=== PATIENT | male | born 1995 | race Caucasian/White ===

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

== ENCOUNTER 2017-03-09 12:30 | Inpatient (IN) | payer MEDICAID ==
[2017-03-09] MEDS ORDERED: Sodium Chloride 0.9% 1,000 ML IV ONE ×4 (12:36→16:12)
[2017-03-09] MEDS ORDERED: Sodium Chloride 0.9% 10 ML Syringe FLUSH PRN (12:36)
[2017-03-09] MEDS ORDERED: Ondansetron 4 MG/2 ML SDV IVPUSH ONE (12:39)
[2017-03-09] MEDS ORDERED: Ketorolac 15 MG/ML SDV IVPUSH ONE (12:40)
[2017-03-09] MEDS ORDERED: Insulin Regular, Human 100 Units/ML 3 ML Vial IV STA ×2 (12:52→16:42)
--- NOTE | 2017-03-09 13:13 | EDM.PDOC ---
ED HPI GENERAL MEDICAL PROBLEM - General Chief Complaint: Diabetic Complaint Stated Complaint: [facility] Time Seen by Provider: 03/09/17 12:42 Source of Information: Reports: Patient, EMS History Limitations: Reports: No Limitations - History of Present Illness INITIAL COMMENTS - FREE TEXT/NARRATIVE: 22-year-old male who is a known diabetic walked into the [facility] today reporting that he was in DKA. Patient reports he started feeling ill this morning. He denies any recent illness. He states he has been compliant with his medications. He previously had an insulin pump but is currently on Lantus and novolog. He states he has been taking this as prescribed. He is currently complaining of body aches and nausea. He reports his symptoms feel similar to his previous episodes of DKA. Patient's blood sugar was checked twice by [facility]. Both times was greater than 400. He was given 2 L of normal saline en route and 4 mg of IV Zofran. Patient reports that his nausea improved after the 4 mg of zofran. Onset: Today Generalized Pain Score (Numeric/FACES): 5 Left Leg Pain Score (Numeric/FACES): 2 - Related Data Allergies Allergy/AdvReac Type Severity Reaction Status Date / Time No Known Allergies Allergy Verified 03/09/17 12:40 Home Meds: Home Meds Insulin Aspart [Novolog] 0 unit SQ ASDIRECTED 03/09/17 [History] Insulin Glarg,Human.Rec.Analog [LantUS Solostar] 35 units SUBCUT BID 03/09/17 [ History] Insulin Pump/Infus. Set/Meter [Accu-Chek Combo System] 0 unit SQ ASDIRECTED [History] Past Medical History Cardiovascular History: Reports: Hypertension Gastrointestinal History: Reports: Other (See Below) Other Gastrointestinal History: patient has had liver biopsy Musculoskeletal History: Reports: Fracture Other Musculoskeletal History: "boxer fracture" - fifth knuckle fracture November 2016 Neurological History: Reports: Head Trauma Psychiatric History: Reports: Depression Endocrine/Metabolic History: Reports: Diabetes, Type I Other Endocrine/Metabolic History: Diabetic ketoacidosis. Insulin pump - Infectious Disease History Infectious Disease History: Reports: None - Past Surgical History Cardiovascular Surgical History: Reports: None Social & Family History - Family History Family Medical History: Noncontributory Cardiac: Reports: [place] - Tobacco Use Smoking Status *Q: Former Smoker Years of Tobacco use: 7 Packs/Tins Daily: 0.5 Used Tobacco, but Quit: Yes Month Tobacco Last Used: 2015 Second Hand Smoke Exposure: No - Caffeine Use Caffeine Use: Reports: Soda Other Caffeine Use: 1-2 cups - Recreational Drug Use Recreational Drug Use: No - Living Situation & Occupation Living situation: Reports: Single, with Significant Other Occupation: Unemployed ED ROS GENERAL - Review of Systems Review Of Systems: See Below Constitutional: Reports: Malaise, Weakness, Other (body aches) Endocrine: Reports: High Glucose GI/Abdominal: Reports: Nausea ED EXAM GENERAL NO PERIP PULSE - Physical Exam Exam: See Below Exam Limited By: No Limitations General Appearance: Alert, WD/WN, Moderate Distress, Other (smells of ketones) Throat/Mouth: Normal Voice, No Airway Compromise, Other (dry mucus membranes) Respiratory/Chest: Lungs Clear, Respiratory Distress (tachypnea) Cardiovascular: No Murmur, Tachycardia GI/Abdominal: Normal Bowel Sounds, Soft, Non-Tender Neurological: Slow to Respond Psychiatric: Normal Affect, Normal Mood Skin Exam: Warm, Dry, Pallor Course - Vital Signs Last Recorded V/S: Last Vital Signs Temp 36.4 C 03/10/17 00:00 Pulse 99 03/10/17 00:00 Resp 16 03/10/17 00:00 BP 93/49 L 03/10/17 00:00 Pulse Ox 100 03/10/17 00:00 - Orders/Labs/Meds Orders: Active Orders 24 hr Category Date Time Status Cardiac Monitoring [RC] . DIRECTED Care 03/09/17 12:36 Active Insulin Regular, Human [HumuLIN R] 100 unit Med 03/09/17 13:00 Active Sodium Chloride 0.9% [Normal Saline] 99 ml IV TITRATE Sodium Chloride 0.9% [Saline Flush] Med 03/09/17 12:36 Active 10 ml FLUSH ASDIRECTED PRN Peripheral IV Insertion Adult [OM.PC] Routine Oth 03/09/17 12:35 Ordered Medication Orders Acetaminophen (Tylenol) 650 mg PO Q4H PRN PRN Reason: Pain (moderate 4-6) Last Admin: 03/09/17 20:46 Dose: 650 mg Insulin Human Regular 100 unit (/ Sodium Chloride) 100 mls @ 3 mls/hr IV TITRATE PRINCE; 3 UNITS/HR PRN Reason: Protocol Last Titration: 03/10/17 00:14 Dose: 2.5 units/hr, 2.5 mls/hr Titration: 03/09/17 22:59 Dose: 2 units/hr, 2 mls/hr Titration: 03/09/17 21:59 Dose: 2 units/hr, 2 mls/hr Titration: 03/09/17 21:03 Dose: 2.5 units/hr, 2.5 mls/hr Titration: 03/09/17 20:02 Dose: 2.5 units/hr, 2.5 mls/hr Titration: 03/09/17 19:05 Dose: 2.5 units/hr, 2.5 mls/hr Titration: 03/09/17 18:04 Dose: 2.5 units/hr, 2.5 mls/hr Titration: 03/09/17 16:56 Dose: 5 units/hr, 5 mls/hr Admin: 03/09/17 13:32 Dose: 3 units/hr, 3 mls/hr Dextrose/Sodium Chloride (Dextrose 5%-Normal Saline) 1,000 mls @ 150 mls/hr IV ASDIRECTED PRINCE Last Admin: 03/09/17 20:24 Dose: 150 mls/hr Metoclopramide HCl (Reglan) 10 mg IVPUSH Q6H PRN PRN Reason: Nausea/Vomiting Ondansetron HCl (Zofran) 4 mg IVPUSH Q8H PRN PRN Reason: Nausea/Vomiting Pantoprazole Sodium (Protonix Iv) 40 mg IVPUSH Q12H PRINCE Last Admin: 03/09/17 16:31 Dose: 40 mg Sodium Chloride (Saline Flush) 10 ml FLUSH ASDIRECTED PRN PRN Reason: Keep Vein Open Last Admin: 03/09/17 12:45 Dose: 10 ml Labs: Laboratory Tests 03/09/17 03/09/17 03/09/17 Range/Units 12:41 12:41 12:41 WBC 16.44 H (4.23-9.07) K/mm3 RBC 5.08 (4.63-6.08) M/mm3 Hgb 14.1 (13.7-17.5) gm/L Hct 39.3 L (40.1-51.0) % MCV 77.4 L (79.0-92.2) fl MCH 27.8 (25.7-32.2) pg MCHC 35.9 H (32.2-35.5) g/dl RDW Std Deviation 37.7 (35.1-43.9) fL Plt Count 359 H (163-337) K/mm3 MPV 10.6 (9.4-12.3) fl Neutrophils % (Manual) 79 H (40-60) % Band Neutrophils % 1 (0-10) % Lymphocytes % (Manual) 15 L (20-40) % Atypical Lymphs % 0 % Monocytes % (Manual) 5 (2-10) % Eosinophils % (Manual) 0 L (0.8-7.0) % Basophils % (Manual) 0 L (0.2-1.2) Platelet Estimate Adequate Plt Morphology Comment Normal RBC Morph Comment Normal Puncture Site ABG pH (7.35-7.45) ABG pCO2 (35.0-45.0) mmHg ABG pO2 (80.0-100.0) mmHg ABG HCO3 (22.0-26.0) meq/L ABG O2 Saturation (96.0-97.0) % ABG Base Excess (-2-2.0) Carson Test FiO2 (21.00-100.00) % Sodium 130 L (136-145) mEq/L Potassium 6.1 H (3.5-5.1) mEq/L Chloride 93 L (98-107) mEq/L Carbon Dioxide 7 L* (21-32) mEq/L Anion Gap 36.1 H (5-15) BUN 19 H (7-18) mg/dL Creatinine 1.2 (0.7-1.3) mg/dL Est Cr Clr Drug Dosing 89.06 mL/min Estimated GFR (MDRD) > 60 (>60) mL/min BUN/Creatinine Ratio 15.8 (14-18) Glucose 697 H* (74-106) mg/dL Serum Osmolality 327 H (280-300) mosm/kg Calcium 8.8 (8.5-10.1) mg/dL Total Bilirubin 0.6 (0.2-1.0) mg/dL AST 20 (15-37) U/L ALT 26 (16-63) U/L Alkaline Phosphatase 141 H (46-116) U/L Total Protein 7.7 (6.4-8.2) g/dl Albumin 3.6 (3.4-5.0) g/dl Globulin 4.1 gm/dL Albumin/Globulin Ratio 0.9 L (1-2) Urine Color (Yellow) Urine Appearance (Clear) Urine pH (5.0-8.0) Ur Specific [place] (1.005-1.030) Urine Protein (Negative) Urine Glucose (UA) (Negative) Urine Ketones (Negative) Urine Occult Blood (Negative) Urine Nitrite (Negative) Urine Bilirubin (Negative) Urine Urobilinogen (0.2-1.0) Ur Leukocyte Esterase (Negative) Urine RBC (0-5) /hpf Urine WBC (0-5) /hpf Ur Epithelial Cells (0-5) /hpf Urine Bacteria (FEW) /hpf Urine Mucus (FEW) /hpf Urine Opiates Screen (NEGATIVE) Ur Buprenorphine Scrn (NEGATIVE) Ur Oxycodone Screen (NEGATIVE) Urine Methadone Screen (NEGATIVE) Ur Propoxyphene Screen (NEGATIVE) Ur Barbiturates Screen (NEGATIVE) Ur Tricyclics Screen (NEGATIVE) Ur Phencyclidine Scrn (NEGATIVE) Ur Amphetamine Screen (NEGATIVE) U Methamphetamines Scrn (NEGATIVE) U Benzodiazepines Scrn (NEGATIVE) U Cocaine Metab Screen (NEGATIVE) U Marijuana (THC) Screen (NEGATIVE) Ethyl Alcohol (0.00) gm% Ketones 13.98 (0.0-0.3) mM 03/09/17 03/09/17 03/09/17 Range/Units 12:41 12:54 12:54 WBC (4.23-9.07) K/mm3 RBC (4.63-6.08) M/mm3 Hgb (13.7-17.5) gm/L Hct (40.1-51.0) % MCV (79.0-92.2) fl MCH (25.7-32.2) pg MCHC (32.2-35.5) g/dl RDW Std Deviation (35.1-43.9) fL Plt Count (163-337) K/mm3 MPV (9.4-12.3) fl Neutrophils % (Manual) (40-60) % Band Neutrophils % (0-10) % Lymphocytes % (Manual) (20-40) % Atypical Lymphs % % Monocytes % (Manual) (2-10) % Eosinophils % (Manual) (0.8-7.0) % Basophils % (Manual) (0.2-1.2) Platelet Estimate Plt Morphology Comment RBC Morph Comment Puncture Site ABG pH (7.35-7.45) ABG pCO2 (35.0-45.0) mmHg ABG pO2 (80.0-100.0) mmHg ABG HCO3 (22.0-26.0) meq/L ABG O2 Saturation (96.0-97.0) % ABG Base Excess (-2-2.0) Carson Test FiO2 (21.00-100.00) % Sodium (136-145) mEq/L Potassium (3.5-5.1) mEq/L Chloride (98-107) mEq/L Carbon Dioxide (21-32) mEq/L Anion Gap (5-15) BUN (7-18) mg/dL Creatinine (0.7-1.3) mg/dL Est Cr Clr Drug Dosing mL/min Estimated GFR (MDRD) (>60) mL/min BUN/Creatinine Ratio (14-18) Glucose (74-106) mg/dL Serum Osmolality (280-300) mosm/kg Calcium (8.5-10.1) mg/dL Total Bilirubin (0.2-1.0) mg/dL AST (15-37) U/L ALT (16-63) U/L Alkaline Phosphatase (46-116) U/L Total Protein (6.4-8.2) g/dl Albumin (3.4-5.0) g/dl Globulin gm/dL Albumin/Globulin Ratio (1-2) Urine Color Light yellow (Yellow) Urine Appearance Clear (Clear) Urine pH 5.5 (5.0-8.0) Ur Specific [place] 1.020 (1.005-1.030) Urine Protein Negative (Negative) Urine Glucose (UA) 2+ H (Negative) Urine Ketones 3+ H (Negative) Urine Occult Blood Negative (Negative) Urine Nitrite Negative (Negative) Urine Bilirubin Negative (Negative) Urine Urobilinogen 0.2 (0.2-1.0) Ur Leukocyte Esterase Negative (Negative) Urine RBC 0-5 (0-5) /hpf Urine WBC 0-5 (0-5) /hpf Ur Epithelial Cells Not seen (0-5) /hpf Urine Bacteria Rare (FEW) /hpf Urine Mucus Not seen (FEW) /hpf Urine Opiates Screen Negative (NEGATIVE) Ur Buprenorphine Scrn Negative (NEGATIVE) Ur Oxycodone Screen Negative (NEGATIVE) Urine Methadone Screen Negative (NEGATIVE) Ur Propoxyphene Screen Negative (NEGATIVE) Ur Barbiturates Screen Negative (NEGATIVE) Ur Tricyclics Screen Negative (NEGATIVE) Ur Phencyclidine Scrn Negative (NEGATIVE) Ur Amphetamine Screen Negative (NEGATIVE) U Methamphetamines Scrn Negative (NEGATIVE) U Benzodiazepines Scrn Negative (NEGATIVE) U Cocaine Metab Screen Negative (NEGATIVE) U Marijuana (THC) Screen Negative (NEGATIVE) Ethyl Alcohol 0.00 (0.00) gm% Ketones (0.0-0.3) mM 03/09/17 03/09/17 Range/Units 13:00 14:58 WBC (4.23-9.07) K/mm3 RBC (4.63-6.08) M/mm3 Hgb (13.7-17.5) gm/L Hct (40.1-51.0) % MCV (79.0-92.2) fl MCH (25.7-32.2) pg MCHC (32.2-35.5) g/dl RDW Std Deviation (35.1-43.9) fL Plt Count (163-337) K/mm3 MPV (9.4-12.3) fl Neutrophils % (Manual) (40-60) % Band Neutrophils % (0-10) % Lymphocytes % (Manual) (20-40) % Atypical Lymphs % % Monocytes % (Manual) (2-10) % Eosinophils % (Manual) (0.8-7.0) % Basophils % (Manual) (0.2-1.2) Platelet Estimate Plt Morphology Comment RBC Morph Comment Puncture Site Rt radial ABG pH 7.12 L* (7.35-7.45) ABG pCO2 24.3 L (35.0-45.0) mmHg ABG pO2 114.0 H (80.0-100.0) mmHg ABG HCO3 7.5 L (22.0-26.0) meq/L ABG O2 Saturation 98.1 H (96.0-97.0) % ABG Base Excess -21.2 L (-2-2.0) Carson Test Positive FiO2 0.00 L (21.00-100.00) % Sodium (136-145) mEq/L Potassium (3.5-5.1) mEq/L Chloride (98-107) mEq/L Carbon Dioxide (21-32) mEq/L Anion Gap (5-15) BUN (7-18) mg/dL Creatinine (0.7-1.3) mg/dL Est Cr Clr Drug Dosing mL/min Estimated GFR (MDRD) (>60) mL/min BUN/Creatinine Ratio (14-18) Glucose 598 H* (74-106) mg/dL Serum Osmolality (280-300) mosm/kg Calcium (8.5-10.1) mg/dL Total Bilirubin (0.2-1.0) mg/dL AST (15-37) U/L ALT (16-63) U/L Alkaline Phosphatase (46-116) U/L Total Protein (6.4-8.2) g/dl Albumin (3.4-5.0) g/dl Globulin gm/dL Albumin/Globulin Ratio (1-2) Urine Color (Yellow) Urine Appearance (Clear) Urine pH (5.0-8.0) Ur Specific [place] (1.005-1.030) Urine Protein (Negative) Urine Glucose (UA) (Negative) Urine Ketones (Negative) Urine Occult Blood (Negative) Urine Nitrite (Negative) Urine Bilirubin (Negative) Urine Urobilinogen (0.2-1.0) Ur Leukocyte Esterase (Negative) Urine RBC (0-5) /hpf Urine WBC (0-5) /hpf Ur Epithelial Cells (0-5) /hpf Urine Bacteria (FEW) /hpf Urine Mucus (FEW) /hpf Urine Opiates Screen (NEGATIVE) Ur Buprenorphine Scrn (NEGATIVE) Ur Oxycodone Screen (NEGATIVE) Urine Methadone Screen (NEGATIVE) Ur Propoxyphene Screen (NEGATIVE) Ur Barbiturates Screen (NEGATIVE) Ur Tricyclics Screen (NEGATIVE) Ur Phencyclidine Scrn (NEGATIVE) Ur Amphetamine Screen (NEGATIVE) U Methamphetamines Scrn (NEGATIVE) U Benzodiazepines Scrn (NEGATIVE) U Cocaine Metab Screen (NEGATIVE) U Marijuana (THC) Screen (NEGATIVE) Ethyl Alcohol (0.00) gm% Ketones (0.0-0.3) mM Meds: Medications Generic Name Dose Route Start Last Admin Trade Name Freq PRN Reason Stop Dose Admin Acetaminophen 650 mg 03/09/17 15:48 03/09/17 20:46 Tylenol PO 650 mg Q4H PRN Administration Pain (moderate 4-6) Insulin Human Regular 100 unit 100 mls @ 3 mls/hr 03/09/17 13:00 03/10/17 00: 14 / Sodium Chloride IV 2.5 units/hr TITRATE PRINCE 2.5 mls/hr Protocol Titration 3 UNITS/HR Dextrose/Sodium Chloride 1,000 mls @ 150 mls/hr 03/09/17 20:15 03/09/17 20:24 Dextrose 5%-Normal Saline IV 150 mls/hr ASDIRECTED PRINCE Administration Metoclopramide HCl 10 mg 03/09/17 15:47 Reglan IVPUSH Q6H PRN Nausea/Vomiting Ondansetron HCl 4 mg 03/09/17 15:47 Zofran IVPUSH Q8H PRN Nausea/Vomiting Pantoprazole Sodium 40 mg 03/09/17 16:00 03/09/17 16:31 Protonix Iv IVPUSH 40 mg Q12H PRINCE Administration Sodium Chloride 10 ml 03/09/17 12:36 03/09/17 12:45 Saline Flush FLUSH 10 ml ASDIRECTED PRN Administration Keep Vein Open Discontinued Medications Generic Name Dose Route Start Last Admin Trade Name Freq PRN Reason Stop Dose Admin Sodium Chloride 1,000 mls @ 999 mls/hr 03/09/17 12:36 03/09/17 12:40 Normal Saline IV 03/09/17 13:36 999 mls/hr ONETIME ONE Administration Sodium Chloride 1,000 mls @ 999 mls/hr 03/09/17 13:49 03/09/17 13:53 Normal Saline IV 03/09/17 14:49 999 mls/hr ONETIME ONE Administration Sodium Chloride 1,000 mls @ 999 mls/hr 03/09/17 14:57 03/09/17 15:09 Normal Saline IV 03/09/17 15:57 999 mls/hr ONETIME ONE Administration Sodium Chloride 1,000 mls @ 999 mls/hr 03/09/17 16:12 03/09/17 16:32 Normal Saline IV 03/09/17 17:12 999 mls/hr ONETIME ONE Administration Sodium Chloride 1,000 mls @ 250 mls/hr 03/09/17 17:45 03/09/17 17:57 Normal Saline IV 250 mls/hr ASDIRECTED PRINCE Administration Insulin Human Regular 10 unit 03/09/17 12:52 03/09/17 13:49 Humulin R IV 03/09/17 12:53 10 units NOW STA Administration Protocol Insulin Human Regular 3 unit 03/09/17 16:42 03/09/17 16:58 Humulin R IV 03/09/17 16:43 3 units NOW STA Administration Protocol Ketorolac Tromethamine 15 mg 03/09/17 12:40 03/09/17 12:44 Toradol IVPUSH 03/09/17 12:41 15 mg ONETIME ONE Administration Ondansetron HCl 4 mg 03/09/17 12:39 03/09/17 12:44 Zofran IVPUSH 03/09/17 12:40 4 mg ONETIME ONE Administration - Re-Assessments/Exams Free Text/Narrative Re-Assessment/Exam: 03/09/17 15:25 Labs include the following: WBC is 16.44, hgb is 14.1 and plts are 359 Sodium is 130, potassium is 6.1 and chloride is 93. Anion gap is 36.1. Glucose is 697 pH is 7.12, PCO2 is 24.3 and PHCO3 is 7.5 serum ketones are 13.98 serum osmo is 327 UA has 2+ gluclose and 3+ ketones. alcohol is 0 drug screen is negative. Discussed lab results with the patient. Agrees to stay at the hospital. I discussed the case with Dr. Scott. Agrees to admission. Will admit to ICU. Patient received 2 L NS by EMS and an additional 3L in ER. Given 10 unit insulin bolus and started on a drip a 3 units per hour. Departure - Departure Time of Disposition: 15:45 Disposition: Admitted As Inpatient 68 Condition: Serious Clinical Impression: Hyperkalemia Diabetic ketoacidosis associated with type 1 diabetes mellitus Qualifiers: Diabetes mellitus complication detail: without coma Qualified Code(s): E10.10 - Type 1 diabetes mellitus with ketoacidosis without coma - Discharge Information - My Orders Last 24 Hours: My Active Orders 03/09/17 12:35 Peripheral IV Insertion Adult [OM.PC] Routine 03/09/17 12:36 Cardiac Monitoring [RC] . DIRECTED Sodium Chloride 0.9% [Saline Flush] 10 ml FLUSH ASDIRECTED PRN 03/09/17 13:00 Insulin Regular, Human [HumuLIN R] 100 unit Sodium Chloride 0.9% [Normal Saline] 99 ml IV TITRATE - Assessment/Plan Last 24 Hours: My Active Orders 03/09/17 12:35 Peripheral IV Insertion Adult [OM.PC] Routine 03/09/17 12:36 Cardiac Monitoring [RC] . DIRECTED Sodium Chloride 0.9% [Saline Flush] 10 ml FLUSH ASDIRECTED PRN 03/09/17 13:00 Insulin Regular, Human [HumuLIN R] 100 unit Sodium Chloride 0.9% [Normal Saline] 99 ml IV TITRATE
--- NOTE | 2017-03-09 15:43 | PCM.HP ---
H&P History of Present Illness - General Date of Service: 03/09/17 Admit Problem/Dx: Admission Diagnosis/Problem Admission Diagnosis/Problem Diabetic ketoacidosis Source of Information: Patient, Provider History Limitations: Reports: No Limitations - History of Present Illness Initial Comments - Free Text/Narative: 22 year old type 1 diabetics presents with lethargy, body aches; found to be in DKA. Denies change in habits before day of admission. Denies sick contact; had been restarted on insulin and currently off of his pump. Query current regimen status, yet to be determined. EMS in [place] determine level of blood sugar with subsequent IVF 2 liters given before arrival. A total of 3 liters was given before transfer to the ICU at [facility]. Onset of Symptoms: Reports: Sudden Symptom Onset Date: 03/09/17 Duration of Symptoms: Reports: Hour(s):, Getting Worse Location: Reports: Generalized Quality: Reports: Same as Previous Episode Severity: Moderate Improves with: Reports: Medication Associated Symptoms: Reports: Loss of Appetite, Malaise, Nausea/Vomiting Generalized Pain Score (Numeric/FACES): 5 - Related Data Allergies/Adverse Reactions: Allergies Allergy/AdvReac Type Severity Reaction Status Date / Time No Known Allergies Allergy Verified 03/09/17 12:40 Home Medications: Home Meds Insulin Pump/Infus. Set/Meter [Accu-Chek Combo System] 1 each SUBCUT QID [History] Bacitracin [Bacitracin Oint] 30 gm .ROUTE DAILY #2 tube 12/04/16 [Rx] Past Medical History Cardiovascular History: Reports: Hypertension Gastrointestinal History: Reports: Other (See Below) Other Gastrointestinal History: patient has had liver biopsy Musculoskeletal History: Reports: Fracture Other Musculoskeletal History: "boxer fracture" - fifth knuckle fracture November 2016 Neurological History: Reports: Head Trauma Psychiatric History: Reports: Depression Endocrine/Metabolic History: Reports: Diabetes, Type I Other Endocrine/Metabolic History: Diabetic ketoacidosis. Insulin pump - Infectious Disease History Infectious Disease History: Reports: None - Past Surgical History Cardiovascular Surgical History: Reports: None Social & Family History - Family History Family Medical History: Noncontributory Cardiac: Reports: [place] - Tobacco Use Smoking Status *Q: Former Smoker Years of Tobacco use: 5 Packs/Tins Daily: 0.5 Used Tobacco, but Quit: Yes Month Tobacco Last Used: 2015 Second Hand Smoke Exposure: No - Caffeine Use Caffeine Use: Reports: None Other Caffeine Use: pt states that he drinks coffee daily - Recreational Drug Use Recreational Drug Use: No Recreational Drug Type: Reports: Marijuana/Hashish Recreational Drug Use Frequency: Not Used In Over 6 Months - Living Situation & Occupation Living situation: Reports: Single, with Significant Other Occupation: Unemployed H&P Review of Systems - Review of Systems: Review Of Systems: See Below General: Reports: Malaise, Weakness, Decreased Appetite HEENT: Reports: No Symptoms Pulmonary: Reports: No Symptoms Cardiovascular: Reports: No Symptoms Gastrointestinal: Reports: No Symptoms Genitourinary: Reports: No Symptoms Musculoskeletal: Reports: No Symptoms Skin: Reports: No Symptoms Psychiatric: Reports: No Symptoms Neurological: Reports: Dizziness Hematologic/Lymphatic: Reports: No Symptoms Immunologic: Reports: No Symptoms Exam - Exam Exam: See Below - Vital Signs Vital Signs: Last Vital Signs Temp 36.8 C 03/09/17 12:36 Pulse 114 H 03/09/17 15:11 Resp 24 H 03/09/17 15:11 BP 117/68 03/09/17 15:11 Pulse Ox 100 03/09/17 15:11 Weight: 4.374 kg - Exam Quality Assessment: DVT Prophylaxis General: Lethargic HEENT: Conjunctiva Clear, EOMI, Nares Patent, Normal Nasal Septum, Pupils Equal , Pupils Reactive Neck: Supple, Trachea Midline Lungs: Normal Respiratory Effort Cardiovascular: Regular Rate, Tachycardia Abdomen: Normal Bowel Sounds, Soft (Male) Exam: Deferred Rectal (Males) Exam: Deferred Back Exam: Normal Inspection Extremities: Other (poor turgor) Skin: Moist Neurological: Cranial Nerves Intact Neuro Extensive - Mental Status: Alert, Oriented x3, Normal Mood/Affect, Normal Cognition, Memory Intact Neuro Extensive - Motor, Sensory, Reflexes: CN II-XII Intact Psychiatric: Alert, Normal Affect, Normal Mood - Patient Data Result Diagrams: 03/09/17 12:41 03/09/17 12:41 *Q Meaningful Use (ADM) - VTE *Q VTE Criteria *Q: - Stroke *Q Stroke Criteria *Q: - AMI *Q AMI Criteria *Q: - Problem List (1) Diabetic ketoacidosis associated with type 1 diabetes mellitus SNOMED Code(s): 233347479, [id number] ICD Code: E10.10 - TYPE 1 DIABETES MELLITUS WITH KETOACIDOSIS WITHOUT COMA Status: Acute Priority: High Current Visit: No Qualifiers: Diabetes mellitus complication detail: without coma Qualified Code(s): E10.10 - Type 1 diabetes mellitus with ketoacidosis without coma Problem List Initiated/Reviewed/Updated: Yes Orders Last 24hrs: Medication Orders Insulin Human Regular 100 unit (/ Sodium Chloride) 100 mls @ 3 mls/hr IV TITRATE PRINCE; 3 UNITS/HR PRN Reason: Protocol Last Admin: 03/09/17 13:32 Dose: 3 units/hr, 3 mls/hr Sodium Chloride (Normal Saline) 1,000 mls @ 999 mls/hr IV ONETIME ONE Stop: 03/09/17 15:57 Last Admin: 03/09/17 15:09 Dose: 999 mls/hr Sodium Chloride (Saline Flush) 10 ml FLUSH ASDIRECTED PRN PRN Reason: Keep Vein Open Last Admin: 03/09/17 12:45 Dose: 10 ml Assessment/Plan Comment:: Impression: DKA Pseudo hyponatremia Hyperkalemia Dehydration Negative UDA/GLENN 0.0 Plan: Admit to ICU DKA protocol Anti-emetic Pain mgt GI prophylaxis DVT prophylaxis Daily Labs PCP follow up in 1 week after DC LOS expected<96 hours
[2017-03-09] MEDS ORDERED: Metoclopramide 10 MG/2 ML SDV IVPUSH PRN (15:47)
[2017-03-09] MEDS ORDERED: Ondansetron 4 MG/2 ML SDV IVPUSH PRN (15:47)
[2017-03-09] MEDS: Pantoprazole 40 MG Vial IVPUSH SCH (16:31)
[2017-03-09] MEDS ORDERED: Sodium Chloride 0.9% 1,000 ML IV SCH (17:45)
[2017-03-09] MEDS: Dextrose 5%-0.9% NaCl 1,000 ML IV SCH (20:24)
[2017-03-09] MEDS: Acetaminophen 325 MG Tab PO PRN (20:46)
[2017-03-10] MEDS: Pantoprazole 40 MG Vial IVPUSH SCH ×2 (03:12→16:12)
--- NOTE | 2017-03-10 08:58 | PCM.PN ---
- General Info Date of Service: 03/10/17 Functional Status: Reports: tolerating diet, ambulating - Review of Systems General: Reports: Weakness HEENT: Reports: no symptoms Pulmonary: Reports: no symptoms Cardiovascular: Reports: No Symptoms Gastrointestinal: Reports: No symptoms Genitourinary: Reports: no symptoms Musculoskeletal: Reports: no symptoms Skin: Reports: no symptoms Neurological: Reports: No Symptoms Psychiatric: Reports: no symptoms - Patient Data Vitals - most recent: Last Vital Signs Temp 36.8 C 03/10/17 08:00 Pulse 105 H 03/10/17 08:00 Resp 03/10/17 08:00 BP 118/71 03/10/17 08:00 Pulse Ox 100 03/10/17 08:00 Weight - most recent: 72.5 kg I&O - last 24 hours: Intake & Output 03/09/17 03/10/17 03/10/17 22:59 06:59 14:59 Intake Total 3491 Output Total 3000 900 Balance -3000 2591 Lab Results last 24 hrs: Laboratory Results - last 24 hr 03/09/17 03/09/17 03/09/17 Range/Units 18:01 18:37 19:00 WBC (4.23-9.07) K/mm3 RBC (4.63-6.08) M/mm3 Hgb (13.7-17.5) gm/L Hct (40.1-51.0) % MCV (79.0-92.2) fl MCH (25.7-32.2) pg MCHC (32.2-35.5) g/dl RDW Std Deviation (35.1-43.9) fL Plt Count (163-337) K/mm3 MPV (9.4-12.3) fl Neut % (Auto) (34.0-67.9) % Lymph % (Auto) (21.8-53.1) % [place] % (Auto) (5.3-12.2) % Eos % (Auto) (0.8-7.0) Baso % (Auto) (0.1-1.2) % Neut # (Auto) (1.78-5.38) K/mm3 Lymph # (Auto) (1.32-3.57) K/mm3 [place] # (Auto) (0.30-0.82) K/mm3 Eos # (Auto) (0.04-0.54) K/mm3 Baso # (Auto) (0.01-0.08) K/mm3 Manual Slide Review Sodium 138 (136-145) mEq/L Potassium 4.4 (3.5-5.1) mEq/L Chloride 106 (98-107) mEq/L Carbon Dioxide 11 L (21-32) mEq/L Anion Gap 25.4 H (5-15) BUN 15 (7-18) mg/dL Creatinine 1.0 (0.7-1.3) mg/dL Est Cr Clr Drug Dosing 106.33 mL/min Estimated GFR (MDRD) > 60 (>60) mL/min BUN/Creatinine Ratio 15.0 (14-18) Glucose 287 H (74-106) mg/dL POC Glucose 286 H 265 H (70-105) mg/dL Calcium 7.5 L (8.5-10.1) mg/dL Magnesium (1.8-2.4) mg/dl 03/09/17 03/09/17 03/09/17 Range/Units 20:02 21:03 21:59 WBC (4.23-9.07) K/mm3 RBC (4.63-6.08) M/mm3 Hgb (13.7-17.5) gm/L Hct (40.1-51.0) % MCV (79.0-92.2) fl MCH (25.7-32.2) pg MCHC (32.2-35.5) g/dl RDW Std Deviation (35.1-43.9) fL Plt Count (163-337) K/mm3 MPV (9.4-12.3) fl Neut % (Auto) (34.0-67.9) % Lymph % (Auto) (21.8-53.1) % [place] % (Auto) (5.3-12.2) % Eos % (Auto) (0.8-7.0) Baso % (Auto) (0.1-1.2) % Neut # (Auto) (1.78-5.38) K/mm3 Lymph # (Auto) (1.32-3.57) K/mm3 [place] # (Auto) (0.30-0.82) K/mm3 Eos # (Auto) (0.04-0.54) K/mm3 Baso # (Auto) (0.01-0.08) K/mm3 Manual Slide Review Sodium (136-145) mEq/L Potassium (3.5-5.1) mEq/L Chloride (98-107) mEq/L Carbon Dioxide (21-32) mEq/L Anion Gap (5-15) BUN (7-18) mg/dL Creatinine (0.7-1.3) mg/dL Est Cr Clr Drug Dosing mL/min Estimated GFR (MDRD) (>60) mL/min BUN/Creatinine Ratio (14-18) Glucose (74-106) mg/dL POC Glucose 225 H 211 H 201 H (70-105) mg/dL Calcium (8.5-10.1) mg/dL Magnesium (1.8-2.4) mg/dl 03/09/17 03/09/17 03/10/17 Range/Units 22:34 22:58 00:12 WBC (4.23-9.07) K/mm3 RBC (4.63-6.08) M/mm3 Hgb (13.7-17.5) gm/L Hct (40.1-51.0) % MCV (79.0-92.2) fl MCH (25.7-32.2) pg MCHC (32.2-35.5) g/dl RDW Std Deviation (35.1-43.9) fL Plt Count (163-337) K/mm3 MPV (9.4-12.3) fl Neut % (Auto) (34.0-67.9) % Lymph % (Auto) (21.8-53.1) % [place] % (Auto) (5.3-12.2) % Eos % (Auto) (0.8-7.0) Baso % (Auto) (0.1-1.2) % Neut # (Auto) (1.78-5.38) K/mm3 Lymph # (Auto) (1.32-3.57) K/mm3 [place] # (Auto) (0.30-0.82) K/mm3 Eos # (Auto) (0.04-0.54) K/mm3 Baso # (Auto) (0.01-0.08) K/mm3 Manual Slide Review Sodium 137 (136-145) mEq/L Potassium 4.0 (3.5-5.1) mEq/L Chloride 107 (98-107) mEq/L Carbon Dioxide 14 L (21-32) mEq/L Anion Gap 20.0 H (5-15) BUN 12 (7-18) mg/dL Creatinine 1.0 (0.7-1.3) mg/dL Est Cr Clr Drug Dosing 106.33 mL/min Estimated GFR (MDRD) > 60 (>60) mL/min BUN/Creatinine Ratio 12.0 L (14-18) Glucose 211 H (74-106) mg/dL POC Glucose 192 H 221 H (70-105) mg/dL Calcium 7.3 L (8.5-10.1) mg/dL Magnesium (1.8-2.4) mg/dl 03/10/17 03/10/17 03/10/17 Range/Units 01:11 02:10 02:11 WBC (4.23-9.07) K/mm3 RBC (4.63-6.08) M/mm3 Hgb (13.7-17.5) gm/L Hct (40.1-51.0) % MCV (79.0-92.2) fl MCH (25.7-32.2) pg MCHC (32.2-35.5) g/dl RDW Std Deviation (35.1-43.9) fL Plt Count (163-337) K/mm3 MPV (9.4-12.3) fl Neut % (Auto) (34.0-67.9) % Lymph % (Auto) (21.8-53.1) % [place] % (Auto) (5.3-12.2) % Eos % (Auto) (0.8-7.0) Baso % (Auto) (0.1-1.2) % Neut # (Auto) (1.78-5.38) K/mm3 Lymph # (Auto) (1.32-3.57) K/mm3 [place] # (Auto) (0.30-0.82) K/mm3 Eos # (Auto) (0.04-0.54) K/mm3 Baso # (Auto) (0.01-0.08) K/mm3 Manual Slide Review Sodium 137 (136-145) mEq/L Potassium 3.9 (3.5-5.1) mEq/L Chloride 107 (98-107) mEq/L Carbon Dioxide 16 L (21-32) mEq/L Anion Gap 17.9 H (5-15) BUN 11 (7-18) mg/dL Creatinine 1.0 (0.7-1.3) mg/dL Est Cr Clr Drug Dosing 106.33 mL/min Estimated GFR (MDRD) > 60 (>60) mL/min BUN/Creatinine Ratio 11.0 L (14-18) Glucose 251 H (74-106) mg/dL POC Glucose 206 H 224 H (70-105) mg/dL Calcium 7.4 L (8.5-10.1) mg/dL Magnesium (1.8-2.4) mg/dl 03/10/17 03/10/17 03/10/17 Range/Units 03:07 04:13 05:18 WBC (4.23-9.07) K/mm3 RBC (4.63-6.08) M/mm3 Hgb (13.7-17.5) gm/L Hct (40.1-51.0) % MCV (79.0-92.2) fl MCH (25.7-32.2) pg MCHC (32.2-35.5) g/dl RDW Std Deviation (35.1-43.9) fL Plt Count (163-337) K/mm3 MPV (9.4-12.3) fl Neut % (Auto) (34.0-67.9) % Lymph % (Auto) (21.8-53.1) % [place] % (Auto) (5.3-12.2) % Eos % (Auto) (0.8-7.0) Baso % (Auto) (0.1-1.2) % Neut # (Auto) (1.78-5.38) K/mm3 Lymph # (Auto) (1.32-3.57) K/mm3 [place] # (Auto) (0.30-0.82) K/mm3 Eos # (Auto) (0.04-0.54) K/mm3 Baso # (Auto) (0.01-0.08) K/mm3 Manual Slide Review Sodium (136-145) mEq/L Potassium (3.5-5.1) mEq/L Chloride (98-107) mEq/L Carbon Dioxide (21-32) mEq/L Anion Gap (5-15) BUN (7-18) mg/dL Creatinine (0.7-1.3) mg/dL Est Cr Clr Drug Dosing mL/min Estimated GFR (MDRD) (>60) mL/min BUN/Creatinine Ratio (14-18) Glucose (74-106) mg/dL POC Glucose 239 H 219 H 212 H (70-105) mg/dL Calcium (8.5-10.1) mg/dL Magnesium (1.8-2.4) mg/dl 03/10/17 03/10/17 03/10/17 Range/Units 05:40 05:40 06:52 WBC 10.71 H (4.23-9.07) K/mm3 RBC 4.67 (4.63-6.08) M/mm3 Hgb 13.1 L (13.7-17.5) gm/L Hct 35.9 L (40.1-51.0) % MCV 76.9 L (79.0-92.2) fl MCH 28.1 (25.7-32.2) pg MCHC 36.5 H (32.2-35.5) g/dl RDW Std Deviation 38.0 (35.1-43.9) fL Plt Count 308 (163-337) K/mm3 MPV 9.2 L (9.4-12.3) fl Neut % (Auto) 64.1 (34.0-67.9) % Lymph % (Auto) 27.4 (21.8-53.1) % [place] % (Auto) 6.8 (5.3-12.2) % Eos % (Auto) 0.7 L (0.8-7.0) Baso % (Auto) 0.3 (0.1-1.2) % Neut # (Auto) 6.87 H (1.78-5.38) K/mm3 Lymph # (Auto) 2.93 (1.32-3.57) K/mm3 [place] # (Auto) 0.73 (0.30-0.82) K/mm3 Eos # (Auto) 0.08 (0.04-0.54) K/mm3 Baso # (Auto) 0.03 (0.01-0.08) K/mm3 Manual Slide Review Normal smear Sodium 139 (136-145) mEq/L Potassium 3.4 L (3.5-5.1) mEq/L Chloride 108 H (98-107) mEq/L Carbon Dioxide 19 L (21-32) mEq/L Anion Gap 15.4 H (5-15) BUN 11 (7-18) mg/dL Creatinine 0.9 (0.7-1.3) mg/dL Est Cr Clr Drug Dosing 118.15 mL/min Estimated GFR (MDRD) > 60 (>60) mL/min BUN/Creatinine Ratio 12.2 L (14-18) Glucose 221 H (74-106) mg/dL POC Glucose 214 H (70-105) mg/dL Calcium 7.4 L (8.5-10.1) mg/dL Magnesium 1.4 L (1.8-2.4) mg/dl 03/10/17 Range/Units 08:02 WBC (4.23-9.07) K/mm3 RBC (4.63-6.08) M/mm3 Hgb (13.7-17.5) gm/L Hct (40.1-51.0) % MCV (79.0-92.2) fl MCH (25.7-32.2) pg MCHC (32.2-35.5) g/dl RDW Std Deviation (35.1-43.9) fL Plt Count (163-337) K/mm3 MPV (9.4-12.3) fl Neut % (Auto) (34.0-67.9) % Lymph % (Auto) (21.8-53.1) % [place] % (Auto) (5.3-12.2) % Eos % (Auto) (0.8-7.0) Baso % (Auto) (0.1-1.2) % Neut # (Auto) (1.78-5.38) K/mm3 Lymph # (Auto) (1.32-3.57) K/mm3 [place] # (Auto) (0.30-0.82) K/mm3 Eos # (Auto) (0.04-0.54) K/mm3 Baso # (Auto) (0.01-0.08) K/mm3 Manual Slide Review Sodium (136-145) mEq/L Potassium (3.5-5.1) mEq/L Chloride (98-107) mEq/L Carbon Dioxide (21-32) mEq/L Anion Gap (5-15) BUN (7-18) mg/dL Creatinine (0.7-1.3) mg/dL Est Cr Clr Drug Dosing mL/min Estimated GFR (MDRD) (>60) mL/min BUN/Creatinine Ratio (14-18) Glucose (74-106) mg/dL POC Glucose 213 H (70-105) mg/dL Calcium (8.5-10.1) mg/dL Magnesium (1.8-2.4) mg/dl Med Orders - Current: Current Medications Acetaminophen (Tylenol) 650 mg PO Q4H PRN PRN Reason: Pain (moderate 4-6) Last Admin: 03/09/17 20:46 Dose: 650 mg Insulin Human Regular 100 unit (/ Sodium Chloride) 100 mls @ 3 mls/hr IV TITRATE PRINCE; 3 UNITS/HR PRN Reason: Protocol Last Titration: 03/10/17 08:00 Dose: 2.5 units/hr, 2.5 mls/hr Dextrose/Sodium Chloride (Dextrose 5%-Normal Saline) 1,000 mls @ 150 mls/hr IV ASDIRECTED PRINCE Last Admin: 03/09/17 20:24 Dose: 150 mls/hr Metoclopramide HCl (Reglan) 10 mg IVPUSH Q6H PRN PRN Reason: Nausea/Vomiting Ondansetron HCl (Zofran) 4 mg IVPUSH Q8H PRN PRN Reason: Nausea/Vomiting Pantoprazole Sodium (Protonix Iv) 40 mg IVPUSH Q12H PRINCE Last Admin: 03/10/17 03:12 Dose: 40 mg Sodium Chloride (Saline Flush) 10 ml FLUSH ASDIRECTED PRN PRN Reason: Keep Vein Open Last Admin: 03/09/17 12:45 Dose: 10 ml Discontinued Medications Sodium Chloride (Normal Saline) 1,000 mls @ 999 mls/hr IV ONETIME ONE Stop: 03/09/17 13:36 Last Admin: 03/09/17 12:40 Dose: 999 mls/hr Sodium Chloride (Normal Saline) 1,000 mls @ 999 mls/hr IV ONETIME ONE Stop: 03/09/17 14:49 Last Admin: 03/09/17 13:53 Dose: 999 mls/hr Sodium Chloride (Normal Saline) 1,000 mls @ 999 mls/hr IV ONETIME ONE Stop: 03/09/17 15:57 Last Admin: 03/09/17 15:09 Dose: 999 mls/hr Sodium Chloride (Normal Saline) 1,000 mls @ 999 mls/hr IV ONETIME ONE Stop: 03/09/17 17:12 Last Admin: 03/09/17 16:32 Dose: 999 mls/hr Sodium Chloride (Normal Saline) 1,000 mls @ 250 mls/hr IV ASDIRECTED PRINCE Last Admin: 03/09/17 17:57 Dose: 250 mls/hr Insulin Human Regular (Humulin R) 10 unit IV NOW STA PRN Reason: Protocol Stop: 03/09/17 12:53 Last Admin: 03/09/17 13:49 Dose: 10 units Insulin Human Regular (Humulin R) 3 unit IV NOW STA PRN Reason: Protocol Stop: 03/09/17 16:43 Last Admin: 03/09/17 16:58 Dose: 3 units Ketorolac Tromethamine (Toradol) 15 mg IVPUSH ONETIME ONE Stop: 03/09/17 12:41 Last Admin: 03/09/17 12:44 Dose: 15 mg Ondansetron HCl (Zofran) 4 mg IVPUSH ONETIME ONE Stop: 03/09/17 12:40 Last Admin: 03/09/17 12:44 Dose: 4 mg - Exam Quality Assessment: DVT prophylaxis General: alert, oriented HEENT: Pupils equal, Pupils reactive, EOMI Neck: supple, trachea midline Lungs: Normal respiratory effort Cardiovascular: Regular Rate, Regular Rhythm Abdomen: bowel sounds present, soft, no tenderness, no distension (Male) Exam: Deferred Back Exam: Normal Inspection Extremities: normal pulses Skin: warm Neurological: no new focal deficit Psy/Mental Status: alert, normal affect, normal mood - Problem List & Annotations (1) Diabetic ketoacidosis associated with type 1 diabetes mellitus SNOMED Code(s): 994364523, 520376175 Code(s): E10.10 - TYPE 1 DIABETES MELLITUS WITH KETOACIDOSIS WITHOUT COMA Status: Acute Priority: High Current Visit: Yes Qualifiers: Diabetes mellitus complication detail: without coma Qualified Code(s): E10.10 - Type 1 diabetes mellitus with ketoacidosis without coma - Problem List Review Problem List Initiated/Reviewed/Updated: Yes - My Orders Last 24 Hours: My Active Orders 03/09/17 15:45 Antiembolic Devices [RC] PER UNIT ROUTINE Consult to Braddisher [CONS] Routine KT Hose [Antiembolic Hose] [OM.PC] Routine 03/09/17 15:47 Metoclopramide [Reglan] 10 mg IVPUSH Q6H PRN Ondansetron [Zofran] 4 mg IVPUSH Q8H PRN 03/09/17 15:48 Acetaminophen [Tylenol] 650 mg PO Q4H PRN 03/09/17 15:49 Activity as Tolerated [RC] .Routine Vital Signs [RC] Q4HR 03/09/17 16:00 Pantoprazole [ProTONIX IV] 40 mg IVPUSH Q12H 03/09/17 17:05 Code Status [Resuscitation Status] Routine 03/09/17 17:09 Consult to Knitting Teacher [Consult to Diabetic Nurse Specialist] [CONS] Routine 03/09/17 17:59 POC Glucose [Blood Glucose Check, Bedside] [RC] Q1HR 03/09/17 19:00 POC Glucose [Blood Glucose Check, Bedside] [RC] ONETIME 03/09/17 20:15 Dextrose 5%-0.9% NaCl [Dextrose 5%-Normal Saline] 1,000 ml IV ASDIRECTED 03/09/17 Dinner NPO [Nothing Per Oral Diet] [DIET] 03/10/17 08:00 BASIC METABOLIC PANEL,BMP [CHEM] Q4H 03/10/17 12:00 BASIC METABOLIC PANEL,BMP [CHEM] Q4H 03/11/17 05:00 BASIC METABOLIC PANEL,BMP [CHEM] DAILY CBC WITH AUTO DIFF [HEME] DAILY MAGNESIUM [CHEM] DAILY - Plan Plan:: Impression: DKA Pseudo hyponatremia Hyperkalemia Dehydration Negative UDA/GLENN 0.0 Plan: ICU DKA protocol--advance diet Adjust insulin Anti-emetic Pain mgt GI prophylaxis DVT prophylaxis Daily Labs PCP follow up in 1 week after DC LOS expected<96 hours
[2017-03-10] MEDS: Dextrose 5%-0.9% NaCl 1,000 ML IV SCH (09:49)
[2017-03-10] MEDS: Insulin Aspart 100 Units/ML 3 ML Pen SUBCUT SCH ×3 (12:29→21:13)
[2017-03-10] MEDS ORDERED: Magnesium Sulfate/Water 2 GM in Premix Bag 1 BAG IV ONE (13:17)
[2017-03-10] MEDS ORDERED: Insulin Aspart 100 Units/ML 3 ML Pen SUBCUT STA (13:18)
[2017-03-10] MEDS ORDERED: Sodium Chloride 0.9% 500 ML IV ONE (14:22)
[2017-03-10] MEDS ORDERED: Sodium Chloride 0.9% 1,000 ML IV SCH (14:30)
[2017-03-10] MEDS ORDERED: Insulin Detemir 100 Units/ML 3 ML Pen SUBCUT ONE (22:00)
[2017-03-11] MEDS: Pantoprazole 40 MG Vial IVPUSH SCH ×2 (06:52→15:44)
[2017-03-11] MEDS: Insulin Aspart 100 Units/ML 3 ML Pen SUBCUT SCH ×4 (06:53→20:35)
[2017-03-11] MEDS ORDERED: Aspirin 325 MG Tab.EC PO SCH (09:15)
[2017-03-11] MEDS ORDERED: Magnesium Sulfate/Water 2 GM in Premix Bag 1 BAG IV ONE ×2 (09:15→15:00)
[2017-03-11] MEDS: Cephalexin 250 MG Cap PO SCH ×2 (11:28→20:35)
[2017-03-11] MEDS: Acetaminophen 325 MG Tab PO PRN ×2 (11:28→17:05)
--- NOTE | 2017-03-11 13:04 | PCM.PN ---
- General Info Date of Service: 03/11/17 Functional Status: Reports: tolerating diet, ambulating, urinating - Review of Systems General: Reports: No Symptoms HEENT: Reports: no symptoms Pulmonary: Reports: no symptoms Cardiovascular: Reports: No Symptoms Gastrointestinal: Reports: No symptoms Genitourinary: Reports: no symptoms Musculoskeletal: Reports: no symptoms Skin: Reports: no symptoms Neurological: Reports: No Symptoms Psychiatric: Reports: no symptoms - Patient Data Vitals - most recent: Last Vital Signs Temp 36.6 C 03/11/17 08:00 Pulse 109 H 03/11/17 08:00 Resp 18 03/11/17 08:00 BP 134/114 H 03/11/17 08:00 Pulse Ox 99 03/11/17 08:00 Weight - most recent: 70.9 kg I&O - last 24 hours: Intake & Output 03/10/17 03/11/17 03/11/17 22:59 06:59 14:59 Intake Total 800 625 Output Total 1400 Balance 800 -775 Lab Results last 24 hrs: Laboratory Results - last 24 hr 03/10/17 03/10/17 03/10/17 Range/Units 13:08 13:52 14:12 WBC (4.23-9.07) K/mm3 RBC (4.63-6.08) M/mm3 Hgb (13.7-17.5) gm/L Hct (40.1-51.0) % MCV (79.0-92.2) fl MCH (25.7-32.2) pg MCHC (32.2-35.5) g/dl RDW Std Deviation (35.1-43.9) fL Plt Count (163-337) K/mm3 MPV (9.4-12.3) fl Neut % (Auto) (34.0-67.9) % Lymph % (Auto) (21.8-53.1) % [place] % (Auto) (5.3-12.2) % Eos % (Auto) (0.8-7.0) Baso % (Auto) (0.1-1.2) % Neut # (Auto) (1.78-5.38) K/mm3 Lymph # (Auto) (1.32-3.57) K/mm3 [place] # (Auto) (0.30-0.82) K/mm3 Eos # (Auto) (0.04-0.54) K/mm3 Baso # (Auto) (0.01-0.08) K/mm3 Sodium 135 L (136-145) mEq/L Potassium 3.7 (3.5-5.1) mEq/L Chloride 104 (98-107) mEq/L Carbon Dioxide 14 L (21-32) mEq/L Anion Gap 20.7 H (5-15) BUN 8 (7-18) mg/dL Creatinine 1.0 (0.7-1.3) mg/dL Est Cr Clr Drug Dosing 106.33 mL/min Estimated GFR (MDRD) > 60 (>60) mL/min BUN/Creatinine Ratio 8.0 L (14-18) Glucose 401 H (74-106) mg/dL POC Glucose 284 H 386 H (70-105) mg/dL Calcium 7.5 L (8.5-10.1) mg/dL Magnesium (1.8-2.4) mg/dl 03/10/17 03/10/17 03/10/17 Range/Units 16:11 18:06 19:09 WBC (4.23-9.07) K/mm3 RBC (4.63-6.08) M/mm3 Hgb (13.7-17.5) gm/L Hct (40.1-51.0) % MCV (79.0-92.2) fl MCH (25.7-32.2) pg MCHC (32.2-35.5) g/dl RDW Std Deviation (35.1-43.9) fL Plt Count (163-337) K/mm3 MPV (9.4-12.3) fl Neut % (Auto) (34.0-67.9) % Lymph % (Auto) (21.8-53.1) % [place] % (Auto) (5.3-12.2) % Eos % (Auto) (0.8-7.0) Baso % (Auto) (0.1-1.2) % Neut # (Auto) (1.78-5.38) K/mm3 Lymph # (Auto) (1.32-3.57) K/mm3 [place] # (Auto) (0.30-0.82) K/mm3 Eos # (Auto) (0.04-0.54) K/mm3 Baso # (Auto) (0.01-0.08) K/mm3 Sodium (136-145) mEq/L Potassium (3.5-5.1) mEq/L Chloride (98-107) mEq/L Carbon Dioxide (21-32) mEq/L Anion Gap (5-15) BUN (7-18) mg/dL Creatinine (0.7-1.3) mg/dL Est Cr Clr Drug Dosing mL/min Estimated GFR (MDRD) (>60) mL/min BUN/Creatinine Ratio (14-18) Glucose (74-106) mg/dL POC Glucose 257 H 249 H 195 H (70-105) mg/dL Calcium (8.5-10.1) mg/dL Magnesium (1.8-2.4) mg/dl 03/10/17 03/11/17 03/11/17 Range/Units 21:05 04:53 04:53 WBC 9.00 (4.23-9.07) K/mm3 RBC 5.13 (4.63-6.08) M/mm3 Hgb 14.1 (13.7-17.5) gm/L Hct 39.8 L (40.1-51.0) % MCV 77.6 L (79.0-92.2) fl MCH 27.5 (25.7-32.2) pg MCHC 35.4 (32.2-35.5) g/dl RDW Std Deviation 39.9 (35.1-43.9) fL Plt Count 269 (163-337) K/mm3 MPV 10.2 (9.4-12.3) fl Neut % (Auto) 66.2 (34.0-67.9) % Lymph % (Auto) 25.6 (21.8-53.1) % [place] % (Auto) 7.0 (5.3-12.2) % Eos % (Auto) 0.6 L (0.8-7.0) Baso % (Auto) 0.3 (0.1-1.2) % Neut # (Auto) 5.96 H (1.78-5.38) K/mm3 Lymph # (Auto) 2.30 (1.32-3.57) K/mm3 [place] # (Auto) 0.63 (0.30-0.82) K/mm3 Eos # (Auto) 0.05 (0.04-0.54) K/mm3 Baso # (Auto) 0.03 (0.01-0.08) K/mm3 Sodium 133 L (136-145) mEq/L Potassium 3.6 (3.5-5.1) mEq/L Chloride 100 (98-107) mEq/L Carbon Dioxide 12 L (21-32) mEq/L Anion Gap 24.6 H (5-15) BUN 4 L (7-18) mg/dL Creatinine 1.0 (0.7-1.3) mg/dL Est Cr Clr Drug Dosing 106.33 mL/min Estimated GFR (MDRD) > 60 (>60) mL/min BUN/Creatinine Ratio 4.0 L (14-18) Glucose 341 H (74-106) mg/dL POC Glucose 188 H (70-105) mg/dL Calcium 8.1 L (8.5-10.1) mg/dL Magnesium 1.4 L (1.8-2.4) mg/dl 03/11/17 03/11/17 Range/Units 06:50 11:24 WBC (4.23-9.07) K/mm3 RBC (4.63-6.08) M/mm3 Hgb (13.7-17.5) gm/L Hct (40.1-51.0) % MCV (79.0-92.2) fl MCH (25.7-32.2) pg MCHC (32.2-35.5) g/dl RDW Std Deviation (35.1-43.9) fL Plt Count (163-337) K/mm3 MPV (9.4-12.3) fl Neut % (Auto) (34.0-67.9) % Lymph % (Auto) (21.8-53.1) % [place] % (Auto) (5.3-12.2) % Eos % (Auto) (0.8-7.0) Baso % (Auto) (0.1-1.2) % Neut # (Auto) (1.78-5.38) K/mm3 Lymph # (Auto) (1.32-3.57) K/mm3 [place] # (Auto) (0.30-0.82) K/mm3 Eos # (Auto) (0.04-0.54) K/mm3 Baso # (Auto) (0.01-0.08) K/mm3 Sodium (136-145) mEq/L Potassium (3.5-5.1) mEq/L Chloride (98-107) mEq/L Carbon Dioxide (21-32) mEq/L Anion Gap (5-15) BUN (7-18) mg/dL Creatinine (0.7-1.3) mg/dL Est Cr Clr Drug Dosing mL/min Estimated GFR (MDRD) (>60) mL/min BUN/Creatinine Ratio (14-18) Glucose (74-106) mg/dL POC Glucose 356 H 342 H (70-105) mg/dL Calcium (8.5-10.1) mg/dL Magnesium (1.8-2.4) mg/dl Med Orders - Current: Current Medications Acetaminophen (Tylenol) 650 mg PO Q4H PRN PRN Reason: Pain (moderate 4-6) Last Admin: 03/11/17 11:28 Dose: 650 mg Cephalexin (Keflex) 250 mg PO Q8H [facility] Last Admin: 03/11/17 11:28 Dose: 250 mg Insulin Aspart (Novolog) 0 unit SUBCUT QIDACANDBED [facility] PRN Reason: Protocol Last Admin: 03/11/17 11:24 Dose: 8 units Insulin Detemir (Levemir) 20 unit SUBCUT DAILY [facility] Insulin Detemir (Levemir) 15 unit SUBCUT BEDTIME [facility] Metoclopramide HCl (Reglan) 10 mg IVPUSH Q6H PRN PRN Reason: Nausea/Vomiting Ondansetron HCl (Zofran) 4 mg IVPUSH Q8H PRN PRN Reason: Nausea/Vomiting Last Admin: 03/11/17 11:21 Dose: 4 mg Pantoprazole Sodium (Protonix Iv) 40 mg IVPUSH Q12H [facility] Last Admin: 03/11/17 06:52 Dose: 40 mg Sodium Chloride (Saline Flush) 10 ml FLUSH ASDIRECTED PRN PRN Reason: Keep Vein Open Last Admin: 03/09/17 12:45 Dose: 10 ml Discontinued Medications Sodium Chloride (Normal Saline) 1,000 mls @ 999 mls/hr IV ONETIME ONE Stop: 03/09/17 13:36 Last Admin: 03/09/17 12:40 Dose: 999 mls/hr Insulin Human Regular 100 unit (/ Sodium Chloride) 100 mls @ 3 mls/hr IV TITRATE PRINCE; 3 UNITS/HR PRN Reason: Protocol Last Titration: 03/10/17 11:35 Dose: 0 units/hr, 0 mls/hr Sodium Chloride (Normal Saline) 1,000 mls @ 999 mls/hr IV ONETIME ONE Stop: 03/09/17 14:49 Last Admin: 03/09/17 13:53 Dose: 999 mls/hr Sodium Chloride (Normal Saline) 1,000 mls @ 999 mls/hr IV ONETIME ONE Stop: 03/09/17 15:57 Last Admin: 03/09/17 15:09 Dose: 999 mls/hr Sodium Chloride (Normal Saline) 1,000 mls @ 999 mls/hr IV ONETIME ONE Stop: 03/09/17 17:12 Last Admin: 03/09/17 16:32 Dose: 999 mls/hr Sodium Chloride (Normal Saline) 1,000 mls @ 250 mls/hr IV ASDIRECTED PRINCE Last Admin: 03/09/17 17:57 Dose: 250 mls/hr Dextrose/Sodium Chloride (Dextrose 5%-Normal Saline) 1,000 mls @ 150 mls/hr IV ASDIRECTED PRINCE Last Admin: 03/10/17 09:49 Dose: 150 mls/hr Magnesium Sulfate 2 gm/ Premix 50 mls @ 25 mls/hr IV ONETIME ONE Stop: 03/10/17 15:16 Last Admin: 03/10/17 13:25 Dose: 25 mls/hr Sodium Chloride (Normal Saline) 500 mls @ 999 mls/hr IV .BOLUS ONE Stop: 03/10/17 14:52 Last Admin: 03/10/17 14:40 Dose: 999 mls/hr Magnesium Sulfate 2 gm/ Premix 50 mls @ 25 mls/hr IV ONETIME ONE Stop: 03/11/17 11:14 Last Admin: 03/11/17 09:29 Dose: 25 mls/hr Insulin Aspart (Novolog) 6 unit SUBCUT NOW STA Stop: 03/10/17 13:19 Last Admin: 03/10/17 13:25 Dose: 6 units Insulin Detemir (Levemir) 5 unit SUBCUT BEDTIME ONE Stop: 03/10/17 22:01 Last Admin: 03/10/17 21:13 Dose: 5 unit Insulin Human Regular (Humulin R) 10 unit IV NOW STA PRN Reason: Protocol Stop: 03/09/17 12:53 Last Admin: 03/09/17 13:49 Dose: 10 units Insulin Human Regular (Humulin R) 3 unit IV NOW STA PRN Reason: Protocol Stop: 03/09/17 16:43 Last Admin: 03/09/17 16:58 Dose: 3 units Ketorolac Tromethamine (Toradol) 15 mg IVPUSH ONETIME ONE Stop: 03/09/17 12:41 Last Admin: 03/09/17 12:44 Dose: 15 mg Ondansetron HCl (Zofran) 4 mg IVPUSH ONETIME ONE Stop: 03/09/17 12:40 Last Admin: 03/09/17 12:44 Dose: 4 mg - Exam Quality Assessment: DVT prophylaxis General: alert, oriented, cooperative, no acute distress HEENT: Pupils equal, Pupils reactive, EOMI Neck: supple, trachea midline, no JVD Lungs: Normal respiratory effort Cardiovascular: Regular Rate Abdomen: bowel sounds present, soft, no tenderness, no distension (Male) Exam: Deferred Back Exam: Normal Inspection Extremities: normal pulses Skin: warm Neurological: no new focal deficit Psy/Mental Status: alert, normal affect, normal mood - Problem List & Annotations (1) Diabetic ketoacidosis associated with type 1 diabetes mellitus SNOMED Code(s): 654591667, 309848822 Code(s): E10.10 - TYPE 1 DIABETES MELLITUS WITH KETOACIDOSIS WITHOUT COMA Status: Acute Priority: High Current Visit: Yes Qualifiers: Diabetes mellitus complication detail: without coma Qualified Code(s): E10.10 - Type 1 diabetes mellitus with ketoacidosis without coma - Problem List Review Problem List Initiated/Reviewed/Updated: Yes - My Orders Last 24 Hours: My Active Orders 03/11/17 10:00 Consult to Physical Therapy [PT Evaluation and Treatment] [CONS] Routine 03/11/17 10:01 METH-RESIST S.AUR,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 Anti-emetic Pain mgt GI prophylaxis DVT prophylaxis Daily Labs PCP follow up in 1 week after DC LOS expected<96 hours
[2017-03-11] MEDS ORDERED: Insulin Detemir 100 Units/ML 3 ML Pen SUBCUT SCH (21:00)
[2017-03-12] MEDS: Insulin Aspart 100 Units/ML 3 ML Pen SUBCUT SCH ×4 (01:24→21:00)
[2017-03-12] MEDS: Pantoprazole 40 MG Vial IVPUSH SCH ×2 (03:44→16:03)
[2017-03-12] MEDS: Cephalexin 250 MG Cap PO SCH (03:44)
[2017-03-12] MEDS ORDERED: Sodium Chloride 0.9% 1,000 ML ONE (05:41)
[2017-03-12] MEDS ORDERED: Sodium Chloride 0.9% 1,000 ML IV ONE (05:50)
[2017-03-12] MEDS ORDERED: Insulin Detemir 100 Units/ML 3 ML Pen SUBCUT SCH ×2 (07:00→21:00)
[2017-03-12] MEDS ORDERED: Piperacillin/Tazobactam 4.5 GM in Sodium Chloride 0.9% 100 ML IV ONE (08:00)
[2017-03-12] MEDS: Sodium Chloride 0.9% 1,000 ML IV SCH ×3 (08:11→10:08)
[2017-03-12] MEDS ORDERED: Dextrose 5%-0.9% NaCl 1,000 ML IV SCH (10:30)
--- NOTE | 2017-03-12 11:02 | PCM.PN ---
- General Info Date of Service: 03/12/17 Subjective Update: Described malaise and feeling like DKA was returning; treatment for DKA has been started. Zosyn and Vanco have been started for LLE. Functional Status: Reports: pain controlled, tolerating diet (npo), ambulating, urinating - Review of Systems General: Reports: Weakness, Malaise HEENT: Reports: no symptoms Pulmonary: Reports: no symptoms Cardiovascular: Reports: No Symptoms Gastrointestinal: Reports: No symptoms Genitourinary: Reports: no symptoms Musculoskeletal: Reports: no symptoms Skin: Reports: no symptoms Neurological: Reports: No Symptoms Psychiatric: Reports: no symptoms - Patient Data Vitals - most recent: Last Vital Signs Temp 36.7 C 03/12/17 08:00 Pulse 95 03/12/17 08:00 Resp 18 03/12/17 08:00 BP 126/73 03/12/17 08:00 Pulse Ox 97 03/12/17 08:00 Weight - most recent: 71.2 kg I&O - last 24 hours: Intake & Output 03/11/17 03/12/17 03/12/17 22:59 06:59 14:59 Intake Total 776 [id number] Balance 892 [id number] Lab Results last 24 hrs: Laboratory Results - last 24 hr 03/11/17 03/11/17 03/11/17 Range/Units 11:24 13:30 15:03 WBC (4.23-9.07) K/mm3 RBC (4.63-6.08) M/mm3 Hgb (13.7-17.5) gm/L Hct (40.1-51.0) % MCV (79.0-92.2) fl MCH (25.7-32.2) pg MCHC (32.2-35.5) g/dl RDW Std Deviation (35.1-43.9) fL Plt Count (163-337) K/mm3 MPV (9.4-12.3) fl Neut % (Auto) (34.0-67.9) % Lymph % (Auto) (21.8-53.1) % [place] % (Auto) (5.3-12.2) % Eos % (Auto) (0.8-7.0) Baso % (Auto) (0.1-1.2) % Neut # (Auto) (1.78-5.38) K/mm3 Lymph # (Auto) (1.32-3.57) K/mm3 [place] # (Auto) (0.30-0.82) K/mm3 Eos # (Auto) (0.04-0.54) K/mm3 Baso # (Auto) (0.01-0.08) K/mm3 Manual Slide Review Sodium (136-145) mEq/L Potassium (3.5-5.1) mEq/L Chloride (98-107) mEq/L Carbon Dioxide (21-32) mEq/L Anion Gap (5-15) BUN (7-18) mg/dL Creatinine (0.7-1.3) mg/dL Est Cr Clr Drug Dosing mL/min Estimated GFR (MDRD) (>60) mL/min BUN/Creatinine Ratio (14-18) Glucose (74-106) mg/dL POC Glucose 342 H (70-105) mg/dL Calcium (8.5-10.1) mg/dL Magnesium 1.9 (1.8-2.4) mg/dl MRSA (PCR) Negative 03/11/17 03/11/17 03/12/17 Range/Units 17:03 20:33 05:11 WBC (4.23-9.07) K/mm3 RBC (4.63-6.08) M/mm3 Hgb (13.7-17.5) gm/L Hct (40.1-51.0) % MCV (79.0-92.2) fl MCH (25.7-32.2) pg MCHC (32.2-35.5) g/dl RDW Std Deviation (35.1-43.9) fL Plt Count (163-337) K/mm3 MPV (9.4-12.3) fl Neut % (Auto) (34.0-67.9) % Lymph % (Auto) (21.8-53.1) % [place] % (Auto) (5.3-12.2) % Eos % (Auto) (0.8-7.0) Baso % (Auto) (0.1-1.2) % Neut # (Auto) (1.78-5.38) K/mm3 Lymph # (Auto) (1.32-3.57) K/mm3 [place] # (Auto) (0.30-0.82) K/mm3 Eos # (Auto) (0.04-0.54) K/mm3 Baso # (Auto) (0.01-0.08) K/mm3 Manual Slide Review Sodium (136-145) mEq/L Potassium (3.5-5.1) mEq/L Chloride (98-107) mEq/L Carbon Dioxide (21-32) mEq/L Anion Gap (5-15) BUN (7-18) mg/dL Creatinine (0.7-1.3) mg/dL Est Cr Clr Drug Dosing mL/min Estimated GFR (MDRD) (>60) mL/min BUN/Creatinine Ratio (14-18) Glucose (74-106) mg/dL POC Glucose 341 H 365 H 357 H (70-105) mg/dL Calcium (8.5-10.1) mg/dL Magnesium (1.8-2.4) mg/dl MRSA (PCR) 03/12/17 03/12/17 03/12/17 Range/Units 05:43 05:43 06:01 WBC 12.66 H (4.23-9.07) K/mm3 RBC 5.56 (4.63-6.08) M/mm3 Hgb 15.4 (13.7-17.5) gm/L Hct 43.9 (40.1-51.0) % MCV 79.0 (79.0-92.2) fl MCH 27.7 (25.7-32.2) pg MCHC 35.1 (32.2-35.5) g/dl RDW Std Deviation 42.0 (35.1-43.9) fL Plt Count 380 H (163-337) K/mm3 MPV 9.6 (9.4-12.3) fl Neut % (Auto) 73.0 H (34.0-67.9) % Lymph % (Auto) 18.1 L (21.8-53.1) % [place] % (Auto) 7.3 (5.3-12.2) % Eos % (Auto) 0.3 L (0.8-7.0) Baso % (Auto) 0.5 (0.1-1.2) % Neut # (Auto) 9.25 H (1.78-5.38) K/mm3 Lymph # (Auto) 2.29 (1.32-3.57) K/mm3 [place] # (Auto) 0.92 H (0.30-0.82) K/mm3 Eos # (Auto) 0.04 (0.04-0.54) K/mm3 Baso # (Auto) 0.06 (0.01-0.08) K/mm3 Manual Slide Review Normal smear Sodium 135 L (136-145) mEq/L Potassium 4.8 (3.5-5.1) mEq/L Chloride 100 (98-107) mEq/L Carbon Dioxide 5 L* (21-32) mEq/L Anion Gap 34.8 H (5-15) BUN 7 (7-18) mg/dL Creatinine 1.2 (0.7-1.3) mg/dL Est Cr Clr Drug Dosing 88.61 mL/min Estimated GFR (MDRD) > 60 (>60) mL/min BUN/Creatinine Ratio 5.8 L (14-18) Glucose 462 H (74-106) mg/dL POC Glucose 349 H (70-105) mg/dL Calcium 8.7 (8.5-10.1) mg/dL Magnesium (1.8-2.4) mg/dl MRSA (PCR) 03/12/17 03/12/17 03/12/17 Range/Units 07:44 09:13 10:06 WBC (4.23-9.07) K/mm3 RBC (4.63-6.08) M/mm3 Hgb (13.7-17.5) gm/L Hct (40.1-51.0) % MCV (79.0-92.2) fl MCH (25.7-32.2) pg MCHC (32.2-35.5) g/dl RDW Std Deviation (35.1-43.9) fL Plt Count (163-337) K/mm3 MPV (9.4-12.3) fl Neut % (Auto) (34.0-67.9) % Lymph % (Auto) (21.8-53.1) % [place] % (Auto) (5.3-12.2) % Eos % (Auto) (0.8-7.0) Baso % (Auto) (0.1-1.2) % Neut # (Auto) (1.78-5.38) K/mm3 Lymph # (Auto) (1.32-3.57) K/mm3 [place] # (Auto) (0.30-0.82) K/mm3 Eos # (Auto) (0.04-0.54) K/mm3 Baso # (Auto) (0.01-0.08) K/mm3 Manual Slide Review Sodium (136-145) mEq/L Potassium (3.5-5.1) mEq/L Chloride (98-107) mEq/L Carbon Dioxide (21-32) mEq/L Anion Gap (5-15) BUN (7-18) mg/dL Creatinine (0.7-1.3) mg/dL Est Cr Clr Drug Dosing mL/min Estimated GFR (MDRD) (>60) mL/min BUN/Creatinine Ratio (14-18) Glucose (74-106) mg/dL POC Glucose 322 H 215 H 165 H (70-105) mg/dL Calcium (8.5-10.1) mg/dL Magnesium (1.8-2.4) mg/dl MRSA (PCR) Med Orders - Current: Current Medications Acetaminophen (Tylenol) 650 mg PO Q4H PRN PRN Reason: Pain (moderate 4-6) Last Admin: 03/11/17 17:05 Dose: 650 mg Piperacillin Sod/Tazobactam (Sod 4.5 gm/ Sodium Chloride) 100 mls @ 25 mls/hr IV Q8H [facility] Insulin Human Regular 100 unit (/ Sodium Chloride) 100 mls @ 0.5 mls/hr IV TITRATE [facility]; 0.5 UNITS/HR PRN Reason: Protocol Last Titration: 03/12/17 10:09 Dose: 1.5 units/hr, 1.5 mls/hr Vancomycin HCl 1 gm/ Sodium (Chloride) 250 mls @ 250 mls/hr IV Q12H [facility] Dextrose/Sodium Chloride (Dextrose 5%-Normal Saline) 1,000 mls @ 150 mls/hr IV ASDIRECTED [facility] Metoclopramide HCl (Reglan) 10 mg IVPUSH Q6H PRN PRN Reason: Nausea/Vomiting Last Admin: 03/12/17 05:36 Dose: 10 mg Ondansetron HCl (Zofran) 4 mg IVPUSH Q8H PRN PRN Reason: Nausea/Vomiting Last Admin: 03/11/17 11:21 Dose: 4 mg Pantoprazole Sodium (Protonix Iv) 40 mg IVPUSH Q12H [facility] Last Admin: 03/12/17 03:44 Dose: 40 mg Sodium Chloride (Saline Flush) 10 ml FLUSH ASDIRECTED PRN PRN Reason: Keep Vein Open Last Admin: 03/09/17 12:45 Dose: 10 ml Discontinued Medications Cephalexin (Keflex) 250 mg PO Q8H [facility] Last Admin: 03/12/17 03:44 Dose: 250 mg Sodium Chloride (Normal Saline) 1,000 mls @ 999 mls/hr IV ONETIME ONE Stop: 03/09/17 13:36 Last Admin: 03/09/17 12:40 Dose: 999 mls/hr Insulin Human Regular 100 unit (/ Sodium Chloride) 100 mls @ 3 mls/hr IV TITRATE [facility]INCE; 3 UNITS/HR PRN Reason: Protocol Last Titration: 03/10/17 11:35 Dose: 0 units/hr, 0 mls/hr Sodium Chloride (Normal Saline) 1,000 mls @ 999 mls/hr IV ONETIME ONE Stop: 03/09/17 14:49 Last Admin: 03/09/17 13:53 Dose: 999 mls/hr Sodium Chloride (Normal Saline) 1,000 mls @ 999 mls/hr IV ONETIME ONE Stop: 03/09/17 15:57 Last Admin: 03/09/17 15:09 Dose: 999 mls/hr Sodium Chloride (Normal Saline) 1,000 mls @ 999 mls/hr IV ONETIME ONE Stop: 03/09/17 17:12 Last Admin: 03/09/17 16:32 Dose: 999 mls/hr Sodium Chloride (Normal Saline) 1,000 mls @ 250 mls/hr IV ASDIRECTED [facility] Last Admin: 03/09/17 17:57 Dose: 250 mls/hr Dextrose/Sodium Chloride (Dextrose 5%-Normal Saline) 1,000 mls @ 150 mls/hr IV ASDIRECTED [facility]IN[facility] Last Admin: 03/10/17 09:49 Dose: 150 mls/hr Magnesium Sulfate 2 gm/ Premix 50 mls @ 25 mls/hr IV ONETIME ONE Stop: 03/10/17 15:16 Last Admin: 03/10/17 13:25 Dose: 25 mls/hr Sodium Chloride (Normal Saline) 500 mls @ 999 mls/hr IV .BOLUS ONE Stop: 03/10/17 14:52 Last Admin: 03/10/17 14:40 Dose: 999 mls/hr Magnesium Sulfate 2 gm/ Premix 50 mls @ 25 mls/hr IV ONETIME ONE Stop: 03/11/17 11:14 Last Admin: 03/11/17 09:29 Dose: 25 mls/hr Magnesium Sulfate 2 gm/ Premix 50 mls @ 25 mls/hr IV ONETIME ONE Stop: 03/11/17 16:59 Last Admin: 03/11/17 15:44 Dose: 25 mls/hr Sodium Chloride (Normal Saline) Confirm Administered Dose 1,000 mls @ as directed .ROUTE .STK-MED ONE Stop: 03/12/17 05:42 Last Admin: 03/12/17 05:59 Dose: Not Given Sodium Chloride (Normal Saline) 1,000 mls @ 999 mls/hr IV ONETIME ONE Stop: 03/12/17 06:50 Last Admin: 03/12/17 05:59 Dose: 999 mls/hr Vancomycin HCl 1 gm/ Sodium (Chloride) 250 mls @ 250 mls/hr IV ONETIME ONE Stop: 03/12/17 07:36 Last Admin: 03/12/17 09:14 Dose: Not Given Sodium Chloride (Normal Saline) 1,000 mls @ 999 mls/hr IV Q1H [facility] Stop: 03/12/17 09:40 Last Admin: 03/12/17 10:08 Dose: Not Given Piperacillin Sod/Tazobactam (Sod 4.5 gm/ Sodium Chloride) 100 mls @ 200 mls/hr IV ONETIME ONE Stop: 03/12/17 08:29 Last Admin: 03/12/17 08:11 Dose: 200 mls/hr Vancomycin HCl 1 gm/ Sodium (Chloride) 250 mls @ 250 mls/hr IV ONETIME ONE Stop: 03/12/17 09:59 Last Admin: 03/12/17 09:13 Dose: 250 mls/hr Insulin Aspart (Novolog) 0 unit SUBCUT QIDACANDBED [facility] PRN Reason: Protocol Last Admin: 03/12/17 06:04 Dose: Not Given Insulin Aspart (Novolog) 6 unit SUBCUT NOW STA Stop: 03/10/17 13:19 Last Admin: 03/10/17 13:25 Dose: 6 units Insulin Detemir (Levemir) 5 unit SUBCUT BEDTIME ONE Stop: 03/10/17 22:01 Last Admin: 03/10/17 21:13 Dose: 5 unit Insulin Detemir (Levemir) 20 unit SUBCUT DAILY [facility] Insulin Detemir (Levemir) 15 unit SUBCUT BEDTIME [facility] Last Admin: 03/11/17 20:36 Dose: 15 unit Insulin Human Regular (Humulin R) 10 unit IV NOW STA PRN Reason: Protocol Stop: 03/09/17 12:53 Last Admin: 03/09/17 13:49 Dose: 10 units Insulin Human Regular (Humulin R) 3 unit IV NOW STA PRN Reason: Protocol Stop: 03/09/17 16:43 Last Admin: 03/09/17 16:58 Dose: 3 units Ketorolac Tromethamine (Toradol) 15 mg IVPUSH ONETIME ONE Stop: 03/09/17 12:41 Last Admin: 03/09/17 12:44 Dose: 15 mg Ondansetron HCl (Zofran) 4 mg IVPUSH ONETIME ONE Stop: 03/09/17 12:40 Last Admin: 03/09/17 12:44 Dose: 4 mg Vancomycin HCl (Pharmacy To Dose - Vancomycin) 1 dose .XX ONETIME ONE Stop: 03/12/17 06:39 Last Admin: 03/12/17 09:15 Dose: Not Given - Exam Quality Assessment: DVT prophylaxis General: alert, oriented, cooperative HEENT: Pupils equal, Pupils reactive, EOMI Neck: supple, trachea midline, no JVD Lungs: Clear to auscultation, Normal respiratory effort Cardiovascular: Regular Rate, Regular Rhythm, No Murmurs Abdomen: bowel sounds present, soft, no tenderness, no distension (Male) Exam: Deferred Back Exam: Normal Inspection Extremities: no edema, normal pulses Skin: warm Neurological: no new focal deficit Psy/Mental Status: alert, normal affect, normal mood - Problem List & Annotations (1) Diabetic ketoacidosis associated with type 1 diabetes mellitus SNOMED Code(s): 316214052, 610400618 Code(s): E10.10 - TYPE 1 DIABETES MELLITUS WITH KETOACIDOSIS WITHOUT COMA Status: Acute Priority: High Current Visit: Yes Qualifiers: Diabetes mellitus complication detail: without coma Qualified Code(s): E10.10 - Type 1 diabetes mellitus with ketoacidosis without coma - Problem List Review Problem List Initiated/Reviewed/Updated: Yes - My Orders Last 24 Hours: My Active Orders 03/12/17 06:43 Blood Culture x2 Reflex Set [OM.PC] Stat 03/12/17 06:45 Insulin Regular, Human [HumuLIN R] 100 unit Sodium Chloride 0.9% [Normal Saline] 99 ml IV TITRATE 03/12/17 07:15 CULTURE BLOOD [BC] Stat 03/12/17 07:27 CULTURE BLOOD [BC] Stat 03/12/17 09:00 CULTURE URINE [RM] Routine 03/12/17 10:30 Dextrose 5%-0.9% NaCl [Dextrose 5%-Normal Saline] 1,000 ml IV ASDIRECTED 03/12/17 16:00 Piperacillin/Tazobactam [Zosyn] 4.5 gm Sodium Chloride 0.9% [Normal Saline] 100 ml IV Q8H 03/12/17 21:00 Vancomycin 1 gm Sodium Chloride 0.9% [Normal Saline] 250 ml IV Q12H 03/13/17 20:30 VANCOMYCIN TROUGH [CHEM] Routine - Plan Plan:: Impression: DKA restart protocol Pseudo hyponatremia-resolved Hyperkalemia-resolved Dehydration Negative UDA/GLENN 0.0 Plan: ICU DKA protocol--advance diet Adjust insulin, resume home dose. Anti-emetic Pain mgt GI prophylaxis DVT prophylaxis Daily Labs PCP follow up in 1 week after DC LOS may exceed 96 hours, he is currently febrile. IV ATBs have been started
[2017-03-12] MEDS ORDERED: Potassium Chloride 20 MEQ Tab.ER PO SCH (14:00)
[2017-03-12] MEDS: Piperacillin/Tazobactam 4.5 GM in Sodium Chloride 0.9% 100 ML IV SCH ×2 (16:03→22:59)
[2017-03-12] MEDS ORDERED: Insulin Detemir 100 Units/ML 3 ML Pen SUBCUT ONE ×2 (17:19→20:32)
[2017-03-13] MEDS: Pantoprazole 40 MG Vial IVPUSH SCH (03:04)
[2017-03-13] MEDS: Insulin Aspart 100 Units/ML 3 ML Pen SUBCUT SCH ×4 (07:39→22:05)
[2017-03-13] MEDS: Piperacillin/Tazobactam 4.5 GM in Sodium Chloride 0.9% 100 ML IV SCH ×2 (07:41→17:17)
[2017-03-13] MEDS: Insulin Detemir 100 Units/ML 3 ML Pen SUBCUT SCH (08:45)
--- NOTE | 2017-03-13 10:53 | PCM.PN ---
- General Info Date of Service: 03/13/17 Functional Status: Reports: pain controlled, tolerating diet, ambulating, urinating - Review of Systems General: Reports: No Symptoms HEENT: Reports: no symptoms Pulmonary: Reports: no symptoms Cardiovascular: Reports: No Symptoms Gastrointestinal: Reports: No symptoms Genitourinary: Reports: no symptoms Musculoskeletal: Reports: no symptoms Skin: Reports: no symptoms Neurological: Reports: No Symptoms Psychiatric: Reports: no symptoms - Patient Data Vitals - most recent: Last Vital Signs Temp 37.1 C 03/13/17 07:49 Pulse 103 H 03/13/17 07:49 Resp 16 03/13/17 07:49 BP 123/74 03/13/17 07:49 Pulse Ox 100 03/13/17 07:49 Weight - most recent: 68.946 kg I&O - last 24 hours: Intake & Output 03/12/17 03/13/17 03/13/17 22:59 06:59 14:59 Intake Total 1140 690 420 Output Total 2000 700 Balance 1140 -1310 -280 Lab Results last 24 hrs: Laboratory Results - last 24 hr 03/12/17 03/12/17 03/12/17 Range/Units 11:13 12:04 12:09 WBC (4.23-9.07) K/mm3 RBC (4.63-6.08) M/mm3 Hgb (13.7-17.5) gm/L Hct (40.1-51.0) % MCV (79.0-92.2) fl MCH (25.7-32.2) pg MCHC (32.2-35.5) g/dl RDW Std Deviation (35.1-43.9) fL Plt Count (163-337) K/mm3 MPV (9.4-12.3) fl Neut % (Auto) (34.0-67.9) % Lymph % (Auto) (21.8-53.1) % [place] % (Auto) (5.3-12.2) % Eos % (Auto) (0.8-7.0) Baso % (Auto) (0.1-1.2) % Neut # (Auto) (1.78-5.38) K/mm3 Lymph # (Auto) (1.32-3.57) K/mm3 [place] # (Auto) (0.30-0.82) K/mm3 Eos # (Auto) (0.04-0.54) K/mm3 Baso # (Auto) (0.01-0.08) K/mm3 Sodium 137 (136-145) mEq/L Potassium 3.4 L (3.5-5.1) mEq/L Chloride 108 H (98-107) mEq/L Carbon Dioxide 13 L (21-32) mEq/L Anion Gap 19.4 H (5-15) BUN 5 L (7-18) mg/dL Creatinine 1.0 (0.7-1.3) mg/dL Est Cr Clr Drug Dosing 106.33 mL/min Estimated GFR (MDRD) > 60 (>60) mL/min BUN/Creatinine Ratio 5.0 L (14-18) Glucose 152 H (74-106) mg/dL POC Glucose 124 H 128 H (70-105) mg/dL Calcium 7.5 L (8.5-10.1) mg/dL Magnesium (1.8-2.4) mg/dl C-Reactive Protein (<1.0) mg/dL Ketones (0.0-0.3) mM 03/12/17 03/12/17 03/12/17 Range/Units 13:26 14:16 15:17 WBC (4.23-9.07) K/mm3 RBC (4.63-6.08) M/mm3 Hgb (13.7-17.5) gm/L Hct (40.1-51.0) % MCV (79.0-92.2) fl MCH (25.7-32.2) pg MCHC (32.2-35.5) g/dl RDW Std Deviation (35.1-43.9) fL Plt Count (163-337) K/mm3 MPV (9.4-12.3) fl Neut % (Auto) (34.0-67.9) % Lymph % (Auto) (21.8-53.1) % [place] % (Auto) (5.3-12.2) % Eos % (Auto) (0.8-7.0) Baso % (Auto) (0.1-1.2) % Neut # (Auto) (1.78-5.38) K/mm3 Lymph # (Auto) (1.32-3.57) K/mm3 [place] # (Auto) (0.30-0.82) K/mm3 Eos # (Auto) (0.04-0.54) K/mm3 Baso # (Auto) (0.01-0.08) K/mm3 Sodium (136-145) mEq/L Potassium (3.5-5.1) mEq/L Chloride (98-107) mEq/L Carbon Dioxide (21-32) mEq/L Anion Gap (5-15) BUN (7-18) mg/dL Creatinine (0.7-1.3) mg/dL Est Cr Clr Drug Dosing mL/min Estimated GFR (MDRD) (>60) mL/min BUN/Creatinine Ratio (14-18) Glucose (74-106) mg/dL POC Glucose 146 H 164 H 155 H (70-105) mg/dL Calcium (8.5-10.1) mg/dL Magnesium (1.8-2.4) mg/dl C-Reactive Protein (<1.0) mg/dL Ketones (0.0-0.3) mM 03/12/17 03/12/17 03/12/17 Range/Units 16:10 17:28 20:30 WBC (4.23-9.07) K/mm3 RBC (4.63-6.08) M/mm3 Hgb (13.7-17.5) gm/L Hct (40.1-51.0) % MCV (79.0-92.2) fl MCH (25.7-32.2) pg MCHC (32.2-35.5) g/dl RDW Std Deviation (35.1-43.9) fL Plt Count (163-337) K/mm3 MPV (9.4-12.3) fl Neut % (Auto) (34.0-67.9) % Lymph % (Auto) (21.8-53.1) % [place] % (Auto) (5.3-12.2) % Eos % (Auto) (0.8-7.0) Baso % (Auto) (0.1-1.2) % Neut # (Auto) (1.78-5.38) K/mm3 Lymph # (Auto) (1.32-3.57) K/mm3 [place] # (Auto) (0.30-0.82) K/mm3 Eos # (Auto) (0.04-0.54) K/mm3 Baso # (Auto) (0.01-0.08) K/mm3 Sodium 137 (136-145) mEq/L Potassium 3.3 L (3.5-5.1) mEq/L Chloride 108 H (98-107) mEq/L Carbon Dioxide 14 L (21-32) mEq/L Anion Gap 18.3 H (5-15) BUN 5 L (7-18) mg/dL Creatinine 1.0 (0.7-1.3) mg/dL Est Cr Clr Drug Dosing 106.33 mL/min Estimated GFR (MDRD) > 60 (>60) mL/min BUN/Creatinine Ratio 5.0 L (14-18) Glucose 177 H (74-106) mg/dL POC Glucose 176 H 232 H (70-105) mg/dL Calcium 7.7 L (8.5-10.1) mg/dL Magnesium (1.8-2.4) mg/dl C-Reactive Protein (<1.0) mg/dL Ketones (0.0-0.3) mM 03/13/17 03/13/17 03/13/17 Range/Units 05:55 05:55 05:58 WBC 7.03 (4.23-9.07) K/mm3 RBC 4.96 (4.63-6.08) M/mm3 Hgb 13.7 (13.7-17.5) gm/L Hct 38.1 L (40.1-51.0) % MCV 76.8 L (79.0-92.2) fl MCH 27.6 (25.7-32.2) pg MCHC 36.0 H (32.2-35.5) g/dl RDW Std Deviation 38.6 (35.1-43.9) fL Plt Count 243 (163-337) K/mm3 MPV 8.9 L (9.4-12.3) fl Neut % (Auto) 61.2 (34.0-67.9) % Lymph % (Auto) 27.0 (21.8-53.1) % [place] % (Auto) 10.0 (5.3-12.2) % Eos % (Auto) 0.6 L (0.8-7.0) Baso % (Auto) 0.6 (0.1-1.2) % Neut # (Auto) 4.31 (1.78-5.38) K/mm3 Lymph # (Auto) 1.90 (1.32-3.57) K/mm3 [place] # (Auto) 0.70 (0.30-0.82) K/mm3 Eos # (Auto) 0.04 (0.04-0.54) K/mm3 Baso # (Auto) 0.04 (0.01-0.08) K/mm3 Sodium 137 (136-145) mEq/L Potassium 3.5 (3.5-5.1) mEq/L Chloride 103 (98-107) mEq/L Carbon Dioxide 13 L (21-32) mEq/L Anion Gap 24.5 H (5-15) BUN 6 L (7-18) mg/dL Creatinine 0.9 (0.7-1.3) mg/dL Est Cr Clr Drug Dosing 118.15 mL/min Estimated GFR (MDRD) > 60 (>60) mL/min BUN/Creatinine Ratio 6.7 L (14-18) Glucose 296 H (74-106) mg/dL POC Glucose (70-105) mg/dL Calcium 8.1 L (8.5-10.1) mg/dL Magnesium 1.5 L (1.8-2.4) mg/dl C-Reactive Protein 0.9 (<1.0) mg/dL Ketones (0.0-0.3) mM 03/13/17 03/13/17 Range/Units 05:58 06:56 WBC (4.23-9.07) K/mm3 RBC (4.63-6.08) M/mm3 Hgb (13.7-17.5) gm/L Hct (40.1-51.0) % MCV (79.0-92.2) fl MCH (25.7-32.2) pg MCHC (32.2-35.5) g/dl RDW Std Deviation (35.1-43.9) fL Plt Count (163-337) K/mm3 MPV (9.4-12.3) fl Neut % (Auto) (34.0-67.9) % Lymph % (Auto) (21.8-53.1) % [place] % (Auto) (5.3-12.2) % Eos % (Auto) (0.8-7.0) Baso % (Auto) (0.1-1.2) % Neut # (Auto) (1.78-5.38) K/mm3 Lymph # (Auto) (1.32-3.57) K/mm3 [place] # (Auto) (0.30-0.82) K/mm3 Eos # (Auto) (0.04-0.54) K/mm3 Baso # (Auto) (0.01-0.08) K/mm3 Sodium (136-145) mEq/L Potassium (3.5-5.1) mEq/L Chloride (98-107) mEq/L Carbon Dioxide (21-32) mEq/L Anion Gap (5-15) BUN (7-18) mg/dL Creatinine (0.7-1.3) mg/dL Est Cr Clr Drug Dosing mL/min Estimated GFR (MDRD) (>60) mL/min BUN/Creatinine Ratio (14-18) Glucose (74-106) mg/dL POC Glucose 302 H (70-105) mg/dL Calcium (8.5-10.1) mg/dL Magnesium (1.8-2.4) mg/dl C-Reactive Protein (<1.0) mg/dL Ketones 7.29 (0.0-0.3) mM Rosalio Results last 24 hrs: Microbiology 03/12/17 07:27 Aerobic Blood Culture - Preliminary Blood - Venous - Lab Draw NO GROWTH AFTER 1 DAY Anaerobic Blood Culture - Preliminary NO GROWTH AFTER 1 DAY 03/12/17 07:15 Aerobic Blood Culture - Preliminary Blood - Venous NO GROWTH AFTER 1 DAY Anaerobic Blood Culture - Preliminary NO GROWTH AFTER 1 DAY 03/12/17 09:00 Urine Culture - Preliminary Urine, Clean Catch NO GROWTH AFTER 1 DAY Med Orders - Current: Current Medications Acetaminophen (Tylenol) 650 mg PO Q4H PRN PRN Reason: Pain (moderate 4-6) Last Admin: 03/11/17 17:05 Dose: 650 mg Piperacillin Sod/Tazobactam (Sod 4.5 gm/ Sodium Chloride) 100 mls @ 25 mls/hr IV Q8H [facility]IN[facility] Last Admin: 03/13/17 07:41 Dose: 25 mls/hr Insulin Human Regular 100 unit (/ Sodium Chloride) 100 mls @ 0.5 mls/hr IV TITRATE PRINCE; 0.5 UNITS/HR PRN Reason: Protocol Last Titration: 03/12/17 14:17 Dose: 1.5 units/hr, 1.5 mls/hr Insulin Aspart (Novolog) 0 unit SUBCUT QIDACANDBED [facility] PRN Reason: Protocol Last Admin: 03/13/17 07:39 Dose: 8 units Insulin Detemir (Levemir) 20 unit SUBCUT DAILY [facility] Last Admin: 03/13/17 08:45 Dose: 20 units Metoclopramide HCl (Reglan) 10 mg IVPUSH Q6H PRN PRN Reason: Nausea/Vomiting Last Admin: 03/12/17 05:36 Dose: 10 mg Ondansetron HCl (Zofran) 4 mg IVPUSH Q8H PRN PRN Reason: Nausea/Vomiting Last Admin: 03/11/17 11:21 Dose: 4 mg Pantoprazole Sodium (Protonix) 40 mg PO BID [facility] Sodium Chloride (Saline Flush) 10 ml FLUSH ASDIRECTED PRN PRN Reason: Keep Vein Open Last Admin: 03/09/17 12:45 Dose: 10 ml Discontinued Medications Cephalexin (Keflex) 250 mg PO Q8H [facility] Last Admin: 03/12/17 03:44 Dose: 250 mg Sodium Chloride (Normal Saline) 1,000 mls @ 999 mls/hr IV ONETIME ONE Stop: 03/09/17 13:36 Last Admin: 03/09/17 12:40 Dose: 999 mls/hr Insulin Human Regular 100 unit (/ Sodium Chloride) 100 mls @ 3 mls/hr IV TITRATE PRINCE; 3 UNITS/HR PRN Reason: Protocol Last Titration: 03/10/17 11:35 Dose: 0 units/hr, 0 mls/hr Sodium Chloride (Normal Saline) 1,000 mls @ 999 mls/hr IV ONETIME ONE Stop: 03/09/17 14:49 Last Admin: 03/09/17 13:53 Dose: 999 mls/hr Sodium Chloride (Normal Saline) 1,000 mls @ 999 mls/hr IV ONETIME ONE Stop: 03/09/17 15:57 Last Admin: 03/09/17 15:09 Dose: 999 mls/hr Sodium Chloride (Normal Saline) 1,000 mls @ 999 mls/hr IV ONETIME ONE Stop: 03/09/17 17:12 Last Admin: 03/09/17 16:32 Dose: 999 mls/hr Sodium Chloride (Normal Saline) 1,000 mls @ 250 mls/hr IV ASDIRECTED [facility] Last Admin: 03/09/17 17:57 Dose: 250 mls/hr Dextrose/Sodium Chloride (Dextrose 5%-Normal Saline) 1,000 mls @ 150 mls/hr IV ASDIRECTED [facility] Last Admin: 03/10/17 09:49 Dose: 150 mls/hr Magnesium Sulfate 2 gm/ Premix 50 mls @ 25 mls/hr IV ONETIME ONE Stop: 03/10/17 15:16 Last Admin: 03/10/17 13:25 Dose: 25 mls/hr Sodium Chloride (Normal Saline) 500 mls @ 999 mls/hr IV .BOLUS ONE Stop: 03/10/17 14:52 Last Admin: 03/10/17 14:40 Dose: 999 mls/hr Magnesium Sulfate 2 gm/ Premix 50 mls @ 25 mls/hr IV ONETIME ONE Stop: 03/11/17 11:14 Last Admin: 03/11/17 09:29 Dose: 25 mls/hr Magnesium Sulfate 2 gm/ Premix 50 mls @ 25 mls/hr IV ONETIME ONE Stop: 03/11/17 16:59 Last Admin: 03/11/17 15:44 Dose: 25 mls/hr Sodium Chloride (Normal Saline) Confirm Administered Dose 1,000 mls @ as directed .ROUTE .STK-MED ONE Stop: 03/12/17 05:42 Last Admin: 03/12/17 05:59 Dose: Not Given Sodium Chloride (Normal Saline) 1,000 mls @ 999 mls/hr IV ONETIME ONE Stop: 03/12/17 06:50 Last Admin: 03/12/17 05:59 Dose: 999 mls/hr Vancomycin HCl 1 gm/ Sodium (Chloride) 250 mls @ 250 mls/hr IV ONETIME ONE Stop: 03/12/17 07:36 Last Admin: 03/12/17 09:14 Dose: Not Given Sodium Chloride (Normal Saline) 1,000 mls @ 999 mls/hr IV Q1H [facility] Stop: 03/12/17 09:40 Last Admin: 03/12/17 10:08 Dose: Not Given Piperacillin Sod/Tazobactam (Sod 4.5 gm/ Sodium Chloride) 100 mls @ 200 mls/hr IV ONETIME ONE Stop: 03/12/17 08:29 Last Admin: 03/12/17 08:11 Dose: 200 mls/hr Vancomycin HCl 1 gm/ Sodium (Chloride) 250 mls @ 250 mls/hr IV Q12H [facility] Last Admin: 03/13/17 10:04 Dose: Not Given Vancomycin HCl 1 gm/ Sodium (Chloride) 250 mls @ 250 mls/hr IV ONETIME ONE Stop: 03/12/17 09:59 Last Admin: 03/12/17 09:13 Dose: 250 mls/hr Dextrose/Sodium Chloride (Dextrose 5%-Normal Saline) 1,000 mls @ 150 mls/hr IV ASDIRECTED [facility] Last Admin: 03/12/17 10:55 Dose: 150 mls/hr Insulin Aspart (Novolog) 0 unit SUBCUT QIDACANDBED [facility] PRN Reason: Protocol Last Admin: 03/12/17 06:04 Dose: Not Given Insulin Aspart (Novolog) 6 unit SUBCUT NOW STA Stop: 03/10/17 13:19 Last Admin: 03/10/17 13:25 Dose: 6 units Insulin Detemir (Levemir) 5 unit SUBCUT BEDTIME ONE Stop: 03/10/17 22:01 Last Admin: 03/10/17 21:13 Dose: 5 unit Insulin Detemir (Levemir) 20 unit SUBCUT DAILY [facility] Insulin Detemir (Levemir) 15 unit SUBCUT BEDTIME [facility] Last Admin: 03/11/17 20:36 Dose: 15 unit Insulin Detemir (Levemir) 10 unit SUBCUT ONETIME ONE Stop: 03/12/17 17:20 Last Admin: 03/12/17 17:29 Dose: 10 units Insulin Detemir (Levemir) 15 unit SUBCUT BEDTIME [facility] Insulin Detemir (Levemir) 7 unit SUBCUT ONETIME ONE Stop: 03/12/17 20:33 Last Admin: 03/13/17 00:37 Dose: Not Given Insulin Human Regular (Humulin R) 10 unit IV NOW STA PRN Reason: Protocol Stop: 03/09/17 12:53 Last Admin: 03/09/17 13:49 Dose: 10 units Insulin Human Regular (Humulin R) 3 unit IV NOW STA PRN Reason: Protocol Stop: 03/09/17 16:43 Last Admin: 03/09/17 16:58 Dose: 3 units Ketorolac Tromethamine (Toradol) 15 mg IVPUSH ONETIME ONE Stop: 03/09/17 12:41 Last Admin: 03/09/17 12:44 Dose: 15 mg Ondansetron HCl (Zofran) 4 mg IVPUSH ONETIME ONE Stop: 03/09/17 12:40 Last Admin: 03/09/17 12:44 Dose: 4 mg Pantoprazole Sodium (Protonix Iv) 40 mg IVPUSH Q12H [facility]IN[facility] Last Admin: 03/13/17 03:04 Dose: 40 mg Potassium Chloride (Klor-Con M20) 40 meq PO BID [facility] Stop: 03/12/17 19:05 Last Admin: 03/12/17 14:15 Dose: 40 meq Vancomycin HCl (Pharmacy To Dose - Vancomycin) 1 dose .XX ONETIME ONE Stop: 03/12/17 06:39 Last Admin: 03/12/17 09:15 Dose: Not Given Vancomycin HCl (Pharmacy To Dose - Vancomycin) 1 dose .XX ONETIME PRINCE - Exam Quality Assessment: DVT prophylaxis General: alert, oriented, cooperative, no acute distress HEENT: Pupils equal, Pupils reactive, EOMI Neck: supple, trachea midline, no JVD Lungs: Normal respiratory effort Cardiovascular: Regular Rate, Regular Rhythm Abdomen: bowel sounds present, soft, no tenderness, no distension (Male) Exam: Deferred Back Exam: Normal Inspection Extremities: normal pulses Skin: warm Wound/Incisions: dressing dry and intact Neurological: no new focal deficit Psy/Mental Status: alert, normal affect, normal mood - Problem List & Annotations (1) Diabetic ketoacidosis associated with type 1 diabetes mellitus SNOMED Code(s): 751409658, 321733490 Code(s): E10.10 - TYPE 1 DIABETES MELLITUS WITH KETOACIDOSIS WITHOUT COMA Status: Acute Priority: High Current Visit: Yes Qualifiers: Diabetes mellitus complication detail: without coma Qualified Code(s): E10.10 - Type 1 diabetes mellitus with ketoacidosis without coma - Problem List Review Problem List Initiated/Reviewed/Updated: Yes - My Orders Last 24 Hours: My Active Orders 03/12/17 13:36 Wound Care [RC] Q4HR 03/12/17 16:00 Piperacillin/Tazobactam [Zosyn] 4.5 gm Sodium Chloride 0.9% [Normal Saline] 100 ml IV Q8H 03/12/17 22:00 Insulin Aspart [NovoLOG] See Protocol SUBCUT QIDACANDBED 03/12/17 Dinner ADA Diabetic [[place] [employer] Diet] [DIET] 03/13/17 05:58 CRP [C-REACTIVE PROTEIN] [CHEM] Routine OSMOLALITY,SERUM [CHEM] Routine 03/13/17 09:00 Insulin Detemir [Levemir] 20 unit SUBCUT DAILY 03/13/17 09:15 Patient Status [ADT] Routine 03/13/17 09:34 OSMOLALITY,URINE [URCHEM] Routine 03/13/17 20:30 VANCOMYCIN TROUGH [CHEM] Routine 03/13/17 21:00 Pantoprazole [ProTONIX] 40 mg PO BID - Plan Plan:: Impression: DKA restart protocol Pseudo hyponatremia-resolved Hyperkalemia-resolved Dehydration Negative UDA/GLENN 0.0 Plan: ICU DKA protocol--advance diet Adjust insulin, resume home dose. Anti-emetic Pain mgt GI prophylaxis DVT prophylaxis Daily Labs PCP follow up in 1 week after DC LOS >96 hours, IV ATBs have been started; restarted insulin drip for DKA. DC expected tomorrow.
[2017-03-13] MEDS: Pantoprazole 40 MG Tab.CR PO SCH (20:16)
[2017-03-14] MEDS: Piperacillin/Tazobactam 4.5 GM in Sodium Chloride 0.9% 100 ML IV SCH ×2 (00:13→08:33)
[2017-03-14 03:47] VITALS: BP 128/79
[2017-03-14] MEDS: Insulin Aspart 100 Units/ML 3 ML Pen SUBCUT SCH ×2 (08:35→12:13)
[2017-03-14] MEDS: Pantoprazole 40 MG Tab.CR PO SCH (08:35)
[2017-03-14] MEDS: Insulin Detemir 100 Units/ML 3 ML Pen SUBCUT SCH (08:36)
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
[2017-03-14] MEDS ORDERED: Magnesium Sulfate/Water 2 GM in Premix Bag 1 BAG IV ONE (09:30)
[2017-03-14] MEDS ORDERED: Cephalexin 500 MG Cap PO SCH (10:00)
[2017-03-14] MEDS ORDERED: Magnesium Oxide 400 MG Tab PO SCH (21:00)
== END 2017-03-14 12:58 | disposition home or self-care (01) | DRG 638 ==
LOC: JD.ED 12:30 → UNDOADMIN 15:22 → JD.ICU 15:22 → JD.MS 03-13 11:39
PROVIDERS: ADMIT Internal Medicine Cardiovascular Disease; ATTEND Internal Medicine Cardiovascular Disease
DX: E10.10 Type 1 diabetes mellitus with ketoacidosis without coma (principal); E87.1 Hypo-osmolality and hyponatremia; L03.90 Cellulitis, unspecified; Z79.4 Long term (current) use of insulin; E87.6 Hypokalemia; E86.0 Dehydration; S81.839D Puncture wound without foreign body, unspecified lower leg, subsequent encounter; W34.00XD Accidental discharge from unspecified firearms or gun, subsequent encounter; Z87.891 Personal history of nicotine dependence
CPT/HCPCS: 36415; 36600; 80048; 80053; 80202; 80306; 81001; 82009; 82803; 82947; 82962; 83735; 83930; 83935; 85025; 86140; 87040; 87086; 87641; 96361; 96365; 96366; 96375; 97161-GP; 97530-GP; 97535-GP; 99284; 99285-25; A9270-GY; C9113; G0480; J1815-GY; J1817; J1885; J2405; J2543; J2765; J3370; J3475; J7030; J7040; J7042; J7050

== ENCOUNTER 2017-04-22 18:38 | Inpatient (IN) | payer MEDICAID ==
--- NOTE | 2017-04-22 19:03 | EDM.PDOC ---
ED HPI GENERAL MEDICAL PROBLEM - General Chief Complaint: Diabetic Complaint Stated Complaint: DIABETIC CHECK SOB Time Seen by Provider: 04/22/17 19:02 - History of Present Illness INITIAL COMMENTS - FREE TEXT/NARRATIVE: 22-year-old male presented to the emergency room with diabetes complications. Patient states he's been off his insulin for several days he does not give a reason why he smells ketotic he has a history of recurrent DKA. Patient denies any abdominal pain at this point he has some chest wall discomfort. - Related Data Allergies Allergy/AdvReac Type Severity Reaction Status Date / Time No Known Allergies Allergy Verified 04/22/17 18:59 Home Meds: Home Meds Insulin Aspart [Novolog Flexpen] 0 unit SQ ASDIRECTED 03/09/17 [History] Insulin Glarg,Human.Rec.Analog [LantUS Solostar] 15 units SUBCUT BEDTIME [History] Insulin Pump/Infus. Set/Meter [Accu-Chek Combo System] 0 unit SQ ASDIRECTED [History] Insulin Glarg,Human.Rec.Analog [LantUS Solostar] 20 units SQ DAILY 03/10/17 [ History] Cephalexin [IJD: Cephalexin] 500 mg PO Q8H #30 capsule 03/14/17 [Rx] Magnesium Oxide 400 mg PO BID #14 tablet 03/14/17 [Rx] Past Medical History Cardiovascular History: Reports: Hypertension Gastrointestinal History: Reports: Other (See Below) Other Gastrointestinal History: patient has had liver biopsy Musculoskeletal History: Reports: Fracture Other Musculoskeletal History: "boxer fracture" - fifth knuckle fracture November 2016 Neurological History: Reports: Head Trauma Psychiatric History: Reports: Depression Endocrine/Metabolic History: Reports: Diabetes, Type I Other Endocrine/Metabolic History: Diabetic ketoacidosis. Insulin pump - Infectious Disease History Infectious Disease History: Reports: None - Past Surgical History Cardiovascular Surgical History: Reports: None Social & Family History - Family History Family Medical History: Noncontributory Cardiac: Reports: [place] - Tobacco Use Smoking Status *Q: Former Smoker Years of Tobacco use: 7 Packs/Tins Daily: 0.5 Used Tobacco, but Quit: Yes Month Tobacco Last Used: 2015 Second Hand Smoke Exposure: No - Caffeine Use Caffeine Use: Reports: Soda Other Caffeine Use: 1-2 cups - Recreational Drug Use Recreational Drug Use: No Recreational Drug Type: Reports: Marijuana/Hashish Recreational Drug Use Frequency: Not Used In Over 6 Months - Living Situation & Occupation Living situation: Reports: Single, with Significant Other Occupation: Unemployed ED ROS GENERAL - Review of Systems Review Of Systems: See Below Constitutional: Denies: Fever, Chills HEENT: Reports: No Symptoms Respiratory: Reports: Pleuritic Chest Pain Cardiovascular: Reports: No Symptoms Endocrine: Reports: Other (He has not checked his blood sugar in several days) GI/Abdominal: Reports: No Symptoms : Reports: No Symptoms ED EXAM GENERAL NO PERIP PULSE - Physical Exam Exam: See Below Exam Limited By: Other (He is a little short of breath and breathing rapidly initially this did improve with treatment) General Appearance: Alert, Moderate Distress, Other (He smells very ketotic) Eye Exam: Bilateral Eye: Normal Inspection Head: Atraumatic, Normocephalic Neck: Normal Inspection, Supple, Non-Tender, Full Range of Motion Respiratory/Chest: No Respiratory Distress, Lungs Clear, Normal Breath Sounds, Other (He has some palpable chest wall discomfort) Cardiovascular: Regular Rate, Rhythm, No Edema, No Murmur GI/Abdominal: Normal Bowel Sounds, Soft, Non-Tender Back Exam: Normal Inspection. No: CVA Tenderness (L), CVA Tenderness (R) Extremities: Normal Inspection, No Pedal Edema Course - Vital Signs Last Recorded V/S: Last Vital Signs Temp 35.9 C 04/22/17 18:53 Pulse 137 H 04/22/17 18:53 Resp 29 H 04/22/17 18:53 BP 154/95 H 04/22/17 18:53 Pulse Ox 100 04/22/17 18:53 - Orders/Labs/Meds Orders: Active Orders 24 hr Category Date Time Status Antiembolic Devices [RC] PER UNIT ROUTINE Care 04/22/17 21:10 Active Blood Glucose Check, Bedside [RC] ONETIME Care 04/22/17 21:13 Active Cardiac Monitoring [RC] CONTINUOUS Care 04/22/17 21:08 Active EKG Documentation Completion [RC] STAT Care 04/22/17 19:19 Active Height and Weight [RC] DAILY Care 04/22/17 21:07 Active Intake and Output [RC] QSHIFT Care 04/22/17 21:08 Active Oxygen Therapy [RC] PRN Care 04/22/17 21:08 Active RT Aerosol Therapy [RC] ASDIRECTED Care 04/22/17 21:10 Active Up With Assistance [RC] ASDIRECTED Care 04/22/17 21:07 Active Up ad Nichelle [RC] ASDIRECTED Care 04/22/17 21:07 Active VTE/DVT Education [RC] PER UNIT ROUTINE Care 04/22/17 21:08 Active Vital Signs [RC] Q4HR Care 04/22/17 21:08 Active Consult to Case Management [CONS] Routine Cons 04/22/17 21:11 Active Consult to Diabetic Nurse Specialist [CONS] Routine Cons 04/22/17 21:11 Active Consult to Automation Control Technician [CONS] Routine Cons 04/22/17 21:11 Active Consult to Charging Crane Operator [CONS] Routine Cons 04/22/17 21:11 Active Nothing per Oral Now Diet [DIET] Diet 04/22/17 Dinner Active Chest 1V Frontal [CR] Stat Exams 04/22/17 19:17 Taken BASIC METABOLIC PANEL,BMP [CHEM] AM Lab 04/23/17 05:11 Ordered BASIC METABOLIC PANEL,BMP [CHEM] AM Lab 04/24/17 05:11 Ordered BASIC METABOLIC PANEL,BMP [CHEM] AM Lab 04/25/17 05:11 Ordered BASIC METABOLIC PANEL,BMP [CHEM] AM Lab 04/26/17 05:11 Ordered BASIC METABOLIC PANEL,BMP [CHEM] AM Lab 04/27/17 05:11 Ordered CBC WITH AUTO DIFF [HEME] AM Lab 04/23/17 05:11 Ordered CBC WITH AUTO DIFF [HEME] AM Lab 04/24/17 05:11 Ordered CBC WITH AUTO DIFF [HEME] AM Lab 04/25/17 05:11 Ordered CBC WITH AUTO DIFF [HEME] AM Lab 04/26/17 05:11 Ordered CBC WITH AUTO DIFF [HEME] AM Lab 04/27/17 05:11 Ordered LACTIC ACID [CHEM] Routine Lab 04/22/17 23:00 Ordered MAGNESIUM [CHEM] AM Lab 04/23/17 05:11 Ordered MAGNESIUM [CHEM] AM Lab 04/24/17 05:11 Ordered MAGNESIUM [CHEM] AM Lab 04/25/17 05:11 Ordered MAGNESIUM [CHEM] AM Lab 04/26/17 05:11 Ordered MAGNESIUM [CHEM] AM Lab 04/27/17 05:11 Ordered Acetaminophen [Tylenol] Med 04/22/17 21:07 Active 650 mg PO Q4H PRN Acetaminophen [Tylenol] Med 04/22/17 21:07 Active 650 mg RECTAL Q4H PRN Albuterol/Ipratropium [DuoNeb 3.0-0.5 MG/3 ML] Med 04/22/17 21:07 Active 3 ml NEB Q4HRRT PRN Bisacodyl [Dulcolax] Med 04/22/17 21:07 Active 5 mg PO DAILY PRN Docusate Sodium [Colace] Med 04/22/17 21:07 Active 100 mg PO BID PRN Docusate Sodium/Sennosides [Senna Plus] Med 04/22/17 21:07 Active 1 tab PO BID PRN HYDROmorphone [Dilaudid] Med 04/22/17 21:07 Active 0.25 mg IVPUSH Q2H PRN Insulin Regular, Human [HumuLIN R] Med 04/23/17 19:14 Once 5 unit IV BIDAC ONE Insulin Regular, Human [HumuLIN R] 100 unit Med 04/22/17 20:15 Active Sodium Chloride 0.9% [Normal Saline] 99 ml IV TITRATE LORazepam [Ativan] Med 04/22/17 21:07 Active 1 mg IV Q6H PRN LORazepam [Ativan] Med 04/22/17 21:20 Active 2 mg IVPUSH Q4H PRN Magnesium Rep Pharmacy to Dose [Pharmacy to Dose - Med 04/22/17 21:30 Pending Magnesium Replacement] 1 dose .XX ASDIRECTED Metoprolol Tartrate [Lopressor] Med 04/22/17 21:20 Active 5 mg IVPUSH Q4H PRN NS + KCl 20mEq/L [Normal Saline with 20 mEq KCl] 1,000 Med 04/22/17 21:30 Active ml IV ASDIRECTED Ondansetron [Zofran] Med 04/22/17 21:07 Active 4 mg IV Q6H PRN Polyethylene Glycol 3350 [MiraLAX] Med 04/22/17 21:07 Active 17 gm PO DAILY PRN Potassium Rep Pharmacy to Dose [Pharmacy to Dose - Med 04/22/17 21:30 Pending Potassium Replacement] 1 dose .XX ASDIRECTED Promethazine [Phenergan] 12.5 mg Med 04/22/17 21:07 Active Sodium Chloride 0.9% [Normal Saline] 50 ml IV Q6H Sodium Chloride 0.9% [Normal Saline] 1,000 ml Med 04/22/17 21:15 Active IV ASDIRECTED Temazepam [Restoril] Med 04/22/17 21:07 Active 15 mg PO BEDTIME PRN hydrALAZINE [Apresoline] Med 04/22/17 21:20 Active 20 mg IVPUSH Q4H PRN oxyCODONE Med 04/22/17 21:07 Active 5 mg PO Q4H PRN Sequential Compression Device [OM.PC] Per Unit Routine Oth 04/22/17 21:09 Ordered Resuscitation Status Routine Resus Stat 04/22/17 21:07 Ordered Medication Orders Acetaminophen (Tylenol) 650 mg PO Q4H PRN PRN Reason: Pain (Mild 1-3)/fever Acetaminophen (Tylenol) 650 mg RECTAL Q4H PRN PRN Reason: Pain (mild 1-3) Albuterol/Ipratropium (Duoneb 3.0-0.5 Mg/3 Ml) 3 ml NEB Q4HRRT PRN PRN Reason: Shortness Of Breath/wheezing Bisacodyl (Dulcolax) 5 mg PO DAILY PRN PRN Reason: Constipation Docusate Sodium (Colace) 100 mg PO BID PRN PRN Reason: Constipation Hydralazine HCl (Apresoline) 20 mg IVPUSH Q4H PRN PRN Reason: Hypertension Hydromorphone HCl (Dilaudid) 0.25 mg IVPUSH Q2H PRN PRN Reason: Pain (severe 7-10) Insulin Human Regular 100 unit (/ Sodium Chloride) 100 mls @ 6.4 mls/hr IV TITRATE PRINCE; 6.4 UNITS/HR PRN Reason: Protocol Last Admin: 04/22/17 20:25 Dose: 6.4 units/hr, 6.4 mls/hr Sodium Chloride (Normal Saline) 1,000 mls @ 125 mls/hr IV ASDIRECTED PRINCE Promethazine HCl 12.5 mg/ (Sodium Chloride) 50.5 mls @ 100 mls/hr IV Q6H PRN PRN Reason: Nausea/Vomiting Potassium Chloride/Sodium Chloride (Normal Saline With 20 Meq Kcl) 1,000 mls @ 125 mls/hr IV ASDIRECTED PRINCE Insulin Human Regular (Humulin R) 5 unit IV BIDAC ONE PRN Reason: Protocol Stop: 04/23/17 19:15 Last Admin: 04/22/17 19:05 Dose: 5 unit Lorazepam (Ativan) 1 mg IV Q6H PRN PRN Reason: Anxiety Lorazepam (Ativan) 2 mg IVPUSH Q4H PRN PRN Reason: Seizures Magnesium Sulfate (Pharmacy To Dose - Magnesium Replacement) 1 dose .XX ASDIRECTED [facility] Metoprolol Tartrate (Lopressor) 5 mg IVPUSH Q4H PRN PRN Reason: Tachycardia Ondansetron HCl (Zofran) 4 mg IV Q6H PRN PRN Reason: Nausea/Vomiting Oxycodone HCl (Oxycodone) 5 mg PO Q4H PRN PRN Reason: Pain (moderate 4-6) Polyethylene Glycol (Miralax) 17 gm PO DAILY PRN PRN Reason: Constipation Potassium Chloride (Pharmacy To Dose - Potassium Replacement) 1 dose .XX ASDIRECTED [facility] Senna/Docusate Sodium (Senna Plus) 1 tab PO BID PRN PRN Reason: Constipation Temazepam (Restoril) 15 mg PO BEDTIME PRN PRN Reason: Sleep Labs: Laboratory Tests 04/22/17 04/22/17 04/22/17 Range/Units 19:17 19:20 19:20 WBC 17.18 H (4.23-9.07) K/mm3 RBC 4.92 (4.63-6.08) M/mm3 Hgb 14.2 (13.7-17.5) gm/L Hct 43.1 (40.1-51.0) % MCV 87.6 (79.0-92.2) fl MCH 28.9 (25.7-32.2) pg MCHC 32.9 (32.2-35.5) g/dl RDW Std Deviation 51.3 H (35.1-43.9) fL Plt Count 565 H (163-337) K/mm3 MPV 9.0 L (9.4-12.3) fl Neutrophils % (Manual) 78 H (40-60) % Band Neutrophils % 0 (0-10) % Lymphocytes % (Manual) 21 (20-40) % Atypical Lymphs % 0 % Monocytes % (Manual) 1 L (2-10) % Eosinophils % (Manual) 0 L (0.8-7.0) % Basophils % (Manual) 0 L (0.2-1.2) Platelet Estimate Increased Plt Morphology Comment Normal Anisocytosis 1+ slight RBC Morph Comment Not Reportable Puncture Site Rt radial ABG pH 6.93 L* (7.35-7.45) ABG pCO2 8.7 L* (35.0-45.0) mmHg ABG pO2 142.0 H (80.0-100.0) mmHg ABG HCO3 1.7 L (22.0-26.0) meq/L ABG O2 Saturation 97.4 H (96.0-97.0) % ABG Base Excess -31.9 L (-2-2.0) O2 Delivery Device Room air FiO2 0.00 L (21.00-100.00) % Sodium 133 L (136-145) mEq/L Potassium 5.9 H (3.5-5.1) mEq/L Chloride 94 L (98-107) mEq/L Carbon Dioxide 3 L* (21-32) mEq/L Anion Gap 41.9 H (5-15) BUN 13 (7-18) mg/dL Creatinine 1.3 (0.7-1.3) mg/dL Est Cr Clr Drug Dosing 81.79 mL/min Estimated GFR (MDRD) > 60 (>60) mL/min BUN/Creatinine Ratio 10.0 L (14-18) Glucose 635 H* (74-106) mg/dL Lactic Acid (0.4-2.0) mmol/L Calcium 8.7 (8.5-10.1) mg/dL Magnesium (1.8-2.4) mg/dl Total Bilirubin 1.0 (0.2-1.0) mg/dL AST 174 H (15-37) U/L ALT 264 H (16-63) U/L Alkaline Phosphatase 189 H (46-116) U/L Troponin I < 0.017 (0.00-0.056) ng/mL C-Reactive Protein (<1.0) mg/dL Total Protein 8.4 H (6.4-8.2) g/dl Albumin 4.3 (3.4-5.0) g/dl Globulin 4.1 gm/dL Albumin/Globulin Ratio 1.1 (1-2) Urine Color (Yellow) Urine Appearance (Clear) Urine pH (5.0-8.0) Ur Specific [place] (1.005-1.030) Urine Protein (Negative) Urine Glucose (UA) (Negative) Urine Ketones (Negative) Urine Occult Blood (Negative) Urine Nitrite (Negative) Urine Bilirubin (Negative) Urine Urobilinogen (0.2-1.0) Ur Leukocyte Esterase (Negative) Urine RBC (0-5) /hpf Urine WBC (0-5) /hpf Ur Epithelial Cells (0-5) /hpf Urine Bacteria (FEW) /hpf Urine Mucus (FEW) /hpf Ketones (0.0-0.3) mM 04/22/17 04/22/17 04/22/17 Range/Units 19:20 19:20 19:20 WBC (4.23-9.07) K/mm3 RBC (4.63-6.08) M/mm3 Hgb (13.7-17.5) gm/L Hct (40.1-51.0) % MCV (79.0-92.2) fl MCH (25.7-32.2) pg MCHC (32.2-35.5) g/dl RDW Std Deviation (35.1-43.9) fL Plt Count (163-337) K/mm3 MPV (9.4-12.3) fl Neutrophils % (Manual) (40-60) % Band Neutrophils % (0-10) % Lymphocytes % (Manual) (20-40) % Atypical Lymphs % % Monocytes % (Manual) (2-10) % Eosinophils % (Manual) (0.8-7.0) % Basophils % (Manual) (0.2-1.2) Platelet Estimate Plt Morphology Comment Anisocytosis RBC Morph Comment Puncture Site ABG pH (7.35-7.45) ABG pCO2 (35.0-45.0) mmHg ABG pO2 (80.0-100.0) mmHg ABG HCO3 (22.0-26.0) meq/L ABG O2 Saturation (96.0-97.0) % ABG Base Excess (-2-2.0) O2 Delivery Device FiO2 (21.00-100.00) % Sodium (136-145) mEq/L Potassium (3.5-5.1) mEq/L Chloride (98-107) mEq/L Carbon Dioxide (21-32) mEq/L Anion Gap (5-15) BUN (7-18) mg/dL Creatinine (0.7-1.3) mg/dL Est Cr Clr Drug Dosing mL/min Estimated GFR (MDRD) (>60) mL/min BUN/Creatinine Ratio (14-18) Glucose (74-106) mg/dL Lactic Acid (0.4-2.0) mmol/L Calcium (8.5-10.1) mg/dL Magnesium 2.1 (1.8-2.4) mg/dl Total Bilirubin (0.2-1.0) mg/dL AST (15-37) U/L ALT (16-63) U/L Alkaline Phosphatase (46-116) U/L Troponin I (0.00-0.056) ng/mL C-Reactive Protein < 0.2 (<1.0) mg/dL Total Protein (6.4-8.2) g/dl Albumin (3.4-5.0) g/dl Globulin gm/dL Albumin/Globulin Ratio (1-2) Urine Color (Yellow) Urine Appearance (Clear) Urine pH (5.0-8.0) Ur Specific [place] (1.005-1.030) Urine Protein (Negative) Urine Glucose (UA) (Negative) Urine Ketones (Negative) Urine Occult Blood (Negative) Urine Nitrite (Negative) Urine Bilirubin (Negative) Urine Urobilinogen (0.2-1.0) Ur Leukocyte Esterase (Negative) Urine RBC (0-5) /hpf Urine WBC (0-5) /hpf Ur Epithelial Cells (0-5) /hpf Urine Bacteria (FEW) /hpf Urine Mucus (FEW) /hpf Ketones 15.9 (0.0-0.3) mM 04/22/17 04/22/17 04/22/17 Range/Units 20:00 20:10 21:13 WBC (4.23-9.07) K/mm3 RBC (4.63-6.08) M/mm3 Hgb (13.7-17.5) gm/L Hct (40.1-51.0) % MCV (79.0-92.2) fl MCH (25.7-32.2) pg MCHC (32.2-35.5) g/dl RDW Std Deviation (35.1-43.9) fL Plt Count (163-337) K/mm3 MPV (9.4-12.3) fl Neutrophils % (Manual) (40-60) % Band Neutrophils % (0-10) % Lymphocytes % (Manual) (20-40) % Atypical Lymphs % % Monocytes % (Manual) (2-10) % Eosinophils % (Manual) (0.8-7.0) % Basophils % (Manual) (0.2-1.2) Platelet Estimate Plt Morphology Comment Anisocytosis RBC Morph Comment Puncture Site Rt radial ABG pH 6.96 L* (7.35-7.45) ABG pCO2 10.9 L* (35.0-45.0) mmHg ABG pO2 143.0 H (80.0-100.0) mmHg ABG HCO3 2.3 L (22.0-26.0) meq/L ABG O2 Saturation 97.7 H (96.0-97.0) % ABG Base Excess -29.6 L (-2-2.0) O2 Delivery Device Room air FiO2 (21.00-100.00) % Sodium (136-145) mEq/L Potassium (3.5-5.1) mEq/L Chloride (98-107) mEq/L Carbon Dioxide (21-32) mEq/L Anion Gap (5-15) BUN (7-18) mg/dL Creatinine (0.7-1.3) mg/dL Est Cr Clr Drug Dosing mL/min Estimated GFR (MDRD) (>60) mL/min BUN/Creatinine Ratio (14-18) Glucose (74-106) mg/dL Lactic Acid 3.0 H (0.4-2.0) mmol/L Calcium (8.5-10.1) mg/dL Magnesium (1.8-2.4) mg/dl Total Bilirubin (0.2-1.0) mg/dL AST (15-37) U/L ALT (16-63) U/L Alkaline Phosphatase (46-116) U/L Troponin I (0.00-0.056) ng/mL C-Reactive Protein (<1.0) mg/dL Total Protein (6.4-8.2) g/dl Albumin (3.4-5.0) g/dl Globulin gm/dL Albumin/Globulin Ratio (1-2) Urine Color Light yellow (Yellow) Urine Appearance Clear (Clear) Urine pH 5.5 (5.0-8.0) Ur Specific [place] 1.020 (1.005-1.030) Urine Protein 1+ H (Negative) Urine Glucose (UA) 2+ H (Negative) Urine Ketones 3+ H (Negative) Urine Occult Blood Negative (Negative) Urine Nitrite Negative (Negative) Urine Bilirubin Negative (Negative) Urine Urobilinogen 0.2 (0.2-1.0) Ur Leukocyte Esterase Negative (Negative) Urine RBC Not seen (0-5) /hpf Urine WBC 0-5 (0-5) /hpf Ur Epithelial Cells 0-5 (0-5) /hpf Urine Bacteria Not seen (FEW) /hpf Urine Mucus Not seen (FEW) /hpf Ketones (0.0-0.3) mM Meds: Medications Generic Name Dose Route Start Last Admin Trade Name Freq PRN Reason Stop Dose Admin Acetaminophen 650 mg 04/22/17 21:07 Tylenol PO Q4H PRN Pain (Mild 1-3)/fever Acetaminophen 650 mg 04/22/17 21:07 Tylenol RECTAL Q4H PRN Pain (mild 1-3) Albuterol/Ipratropium 3 ml 04/22/17 21:07 Duoneb 3.0-0.5 Mg/3 Ml NEB Q4HRRT PRN Shortness Of Breath/wheezing Bisacodyl 5 mg 04/22/17 21:07 Dulcolax PO DAILY PRN Constipation Docusate Sodium 100 mg 04/22/17 21:07 Colace PO BID PRN Constipation Hydralazine HCl 20 mg 04/22/17 21:20 Apresoline IVPUSH Q4H PRN Hypertension Hydromorphone HCl 0.25 mg 04/22/17 21:07 Dilaudid IVPUSH Q2H PRN Pain (severe 7-10) Insulin Human Regular 100 unit 100 mls @ 6.4 mls/hr 04/22/17 20:15 04/22/17 20:25 / Sodium Chloride IV 6.4 units/hr TITRATE PRINCE 6.4 mls/hr Protocol Administration 6.4 UNITS/HR Sodium Chloride 1,000 mls @ 125 mls/hr 04/22/17 21:15 Normal Saline IV ASDIRECTED PRINCE Promethazine HCl 12.5 mg/ 50.5 mls @ 100 mls/hr 04/22/17 21:07 Sodium Chloride IV Q6H PRN Nausea/Vomiting Potassium Chloride/Sodium Chloride 1,000 mls @ 125 mls/hr 04/22/17 21:30 Normal Saline With 20 Meq Kcl IV ASDIRECTED [facility] Insulin Human Regular 5 unit 04/23/17 19:14 04/22/17 19:05 Humulin R IV 04/23/17 19:15 5 unit BIDAC ONE Administration Protocol Lorazepam 1 mg 04/22/17 21:07 Ativan IV Q6H PRN Anxiety Lorazepam 2 mg 04/22/17 21:20 Ativan IVPUSH Q4H PRN Seizures Magnesium Sulfate 1 dose 04/22/17 21:30 Pharmacy To Dose - Magnesium Replacement .XX ASDIRECTED [facility] Metoprolol Tartrate 5 mg 04/22/17 21:20 Lopressor IVPUSH Q4H PRN Tachycardia Ondansetron HCl 4 mg 04/22/17 21:07 Zofran IV Q6H PRN Nausea/Vomiting Oxycodone HCl 5 mg 04/22/17 21:07 Oxycodone PO Q4H PRN Pain (moderate 4-6) Polyethylene Glycol 17 gm 04/22/17 21:07 Miralax PO DAILY PRN Constipation Potassium Chloride 1 dose 04/22/17 21:30 Pharmacy To Dose - Potassium Replacement .XX ASDIRECTED [facility] Senna/Docusate Sodium 1 tab 04/22/17 21:07 Senna Plus PO BID PRN Constipation Temazepam 15 mg 04/22/17 21:07 Restoril PO BEDTIME PRN Sleep Discontinued Medications Generic Name Dose Route Start Last Admin Trade Name Freq PRN Reason Stop Dose Admin Sodium Chloride 1,000 mls @ 999 mls/hr 04/22/17 19:14 04/22/17 19:05 Normal Saline IV 04/22/17 20:14 999 mls/hr ONETIME ONE Administration Sodium Chloride 1,000 mls @ 999 mls/hr 04/22/17 20:22 04/22/17 20:39 Normal Saline IV 04/22/17 21:22 999 mls/hr ONETIME ONE Administration Sodium Chloride Confirm 04/22/17 20:23 04/22/17 20:28 Normal Saline Administered 04/22/17 20:24 Not Given Dose 1,000 mls @ as directed .ROUTE .STK-MED ONE Sodium Chloride 1,000 mls @ 999 mls/hr 04/22/17 20:44 04/22/17 20:45 Normal Saline IV 04/22/17 21:44 999 mls/hr ONETIME ONE Administration Insulin Human Regular Confirm 04/22/17 19:25 04/22/17 20:28 Humulin R Administered 04/22/17 19:26 Not Given Dose 300 unit .ROUTE .STK-MED ONE - Re-Assessments/Exams Free Text/Narrative Re-Assessment/Exam: 04/22/17 22:06 Patient was admitted to the emergency room hyperventilating smelling of ketones he has a recurrent history of DKA. I was concerned about his respiratory status initially and he did not want to be intubated initially he was started on fluids his blood sugar was greater than 400 he was given 5 units of regular insulin and had a liter of NS started. Patient states she's been off his insulin for a couple of days he does not give a good reason for. He denies any abdominal pain however he has some chest wall pain he says his ribs hurt. His initial blood gas was concerning for pH of 6.93 PCO2 of 87 PO2 of 142 bicarbonate of 1.7. He had an IV started this infiltrated quickly anesthesia assisted eventually 2 IVs were started and after having nearly 3 L of fluid and patient is feeling much better his gases were slightly improved with pH is 6.96 PCO2 of 10.9 PO2 143 bicarbonate 2.3. Patient's case was discussed with the hospitalist Dr. Vargas early on in the patient's care who didn't think the patient would benefit from intubation at this point the physician has had numerous encounters with the patient and is certain that he will respond favorably to lots of fluids as he has done in the past. At this time the patient 's feeling better his gases are slightly improved he is on insulin drip the patient will be admitted Departure - Departure Time of Disposition: 22:10 Disposition: Admitted As Inpatient 68 Clinical Impression: Ketoacidosis in diabetes mellitus - Discharge Information Forms: ED Department Discharge - My Orders Last 24 Hours: My Active Orders 04/22/17 19:17 Chest 1V Frontal [CR] Stat 04/22/17 19:19 EKG Documentation Completion [RC] STAT 04/22/17 20:15 Insulin Regular, Human [HumuLIN R] 100 unit Sodium Chloride 0.9% [Normal Saline] 99 ml IV TITRATE 04/22/17 21:13 Blood Glucose Check, Bedside [] ONETIME 04/23/17 19:14 Insulin Regular, Human [HumuLIN R] 5 unit IV BIDAC ONE - Assessment/Plan Last 24 Hours: My Active Orders 04/22/17 19:17 Chest 1V Frontal [CR] Stat 04/22/17 19:19 EKG Documentation Completion [RC] STAT 04/22/17 20:15 Insulin Regular, Human [HumuLIN R] 100 unit Sodium Chloride 0.9% [Normal Saline] 99 ml IV TITRATE 04/22/17 21:13 Blood Glucose Check, Bedside [] ONETIME 04/23/17 19:14 Insulin Regular, Human [HumuLIN R] 5 unit IV BIDAC ONE
[2017-04-22] MEDS ORDERED: Sodium Chloride 0.9% 1,000 ML IV ONE ×3 (19:14→20:44)
[2017-04-22] MEDS ORDERED: Insulin Regular, Human 100 Units/ML 3 ML Vial ONE (19:25)
[2017-04-22] MEDS ORDERED: Sodium Chloride 0.9% 1,000 ML ONE (20:23)
[2017-04-22] MEDS ORDERED: Acetaminophen 650 MG Supp RECTAL PRN (21:07)
[2017-04-22] MEDS ORDERED: Polyethylene Glycol 3350 Powder 17 GM Packet PO PRN (21:07)
[2017-04-22] MEDS ORDERED: LORazepam 2 MG/ML MDV IV PRN (21:07)
[2017-04-22] MEDS ORDERED: Temazepam 15 MG Cap PO PRN (21:07)
[2017-04-22] MEDS ORDERED: Bisacodyl 5 MG Tab PO PRN (21:07)
[2017-04-22] MEDS ORDERED: oxyCODONE 5 MG Tab PO PRN (21:07)
[2017-04-22] MEDS ORDERED: HYDROmorphone 0.5 MG/0.5 ML Syringe IVPUSH PRN (21:07)
[2017-04-22] MEDS ORDERED: Docusate Sodium 100 MG Cap PO PRN (21:07)
[2017-04-22] MEDS ORDERED: Promethazine 12.5 MG in Sodium Chloride 0.9% 50 ML IV PRN (21:07)
[2017-04-22] MEDS ORDERED: Albuterol/Ipratropium 3.0-0.5 MG/3 ML Neb Soln NEB PRN (21:07)
[2017-04-22] MEDS ORDERED: Ondansetron 4 MG/2 ML SDV IV PRN (21:07)
--- NOTE | 2017-04-22 21:07 | PCM.HP ---
H&P History of Present Illness - General Date of Service: 04/22/17 Admit Problem/Dx: DKA Source of Information: Patient, Old Records, Provider, RN Notes Reviewed History Limitations: Reports: Altered Mental Status, Respiratory Distress - History of Present Illness Initial Comments - Free Text/Narative: This is a 22-year-old white male with past medical history of diabetes type I on insulin pump, hypertension, chronic transaminitis status post liver biopsy, and depression who presents to the emergency department with complaints of chest discomfort and was found DKA. Patient is known to me from previous admissions related to DKA's. On presentation to the emergency department he did not have his insulin pump on. When asked what went wrong this time, he was unable to provide me any answers. His initial workup in emergency department shows a CBC remarkable for WBC of 17.18, platelet of 565, neutrophils of 78%. His ABG shows pH of 6.93, PCO2 of 8.7, PO2 of 142, HCO3 of 1.7 with O2 sat of 97.4%. His chemistry is significant for sodium of 133, potassium of 5.9, chloride of 94, carbon dioxide of 3, anion gap of 41.9, glucose of 635, AST of 174, ALT of 264, alkaline phosphatase of 189 , and total protein of 8.4. Troponin 1 is less than 0.017. CRP is less than 0.2. His ketone is 15.9. UA is unimpressive for urinary tract infection however positive for +1 protein, +2 glucose, and +3 ketones. Chest x-ray shows no acute no acute abnormality. Patient is being admitted for DKA. Headache Pain Score (Numeric/FACES): 6 - Related Data Allergies/Adverse Reactions: Allergies Allergy/AdvReac Type Severity Reaction Status Date / Time No Known Allergies Allergy Verified 04/22/17 18:59 Home Medications: Home Meds Insulin Aspart [Novolog Flexpen] 0 unit SQ ASDIRECTED 03/09/17 [History] Insulin Glarg,Human.Rec.Analog [LantUS Solostar] 15 units SUBCUT BEDTIME [History] Insulin Pump/Infus. Set/Meter [Accu-Chek Combo System] 0 unit SQ ASDIRECTED [History] Insulin Glarg,Human.Rec.Analog [LantUS Solostar] 20 units SQ DAILY 03/10/17 [ History] Cephalexin [IJD: Cephalexin] 500 mg PO Q8H #30 capsule 03/14/17 [Rx] Magnesium Oxide 400 mg PO BID #14 tablet 03/14/17 [Rx] Past Medical History Cardiovascular History: Reports: Hypertension Gastrointestinal History: Reports: Other (See Below) Other Gastrointestinal History: patient has had liver biopsy Musculoskeletal History: Reports: Fracture Other Musculoskeletal History: "boxer fracture" - fifth knuckle fracture November 2016 Neurological History: Reports: Head Trauma Psychiatric History: Reports: Depression Endocrine/Metabolic History: Reports: Diabetes, Type I Other Endocrine/Metabolic History: Diabetic ketoacidosis. Insulin pump - Infectious Disease History Infectious Disease History: Reports: None - Past Surgical History Cardiovascular Surgical History: Reports: None Social & Family History - Family History Family Medical History: Noncontributory Cardiac: Reports: NE - Tobacco Use Smoking Status *Q: Former Smoker Years of Tobacco use: 7 Packs/Tins Daily: 0.5 Used Tobacco, but Quit: Yes Month Tobacco Last Used: 2015 Second Hand Smoke Exposure: No - Caffeine Use Caffeine Use: Reports: Soda Other Caffeine Use: 1-2 cups - Recreational Drug Use Recreational Drug Use: No Recreational Drug Type: Reports: Marijuana/Hashish Recreational Drug Use Frequency: Not Used In Over 6 Months - Living Situation & Occupation Living situation: Reports: Single, with Significant Other Occupation: Unemployed H&P Review of Systems - Review of Systems: Review Of Systems: See Below General: Denies: Fever, Chills, Malaise, Weakness, Fatigue HEENT: Reports: No Symptoms Pulmonary: Denies: Shortness of Breath Cardiovascular: Reports: Chest Pain Gastrointestinal: Denies: Abdominal Pain, Nausea, Vomiting Genitourinary: Reports: No Symptoms Musculoskeletal: Reports: No Symptoms Skin: Denies: Cyanosis, Pallor, Diaphoresis, Rash, Erythema, Wound Psychiatric: Denies: Confusion, Depression, Anxiety, Hallucinations Neurological: Denies: Confusion, Pre-Existing Deficit, Weakness, Gait Disturbance Hematologic/Lymphatic: Reports: No Symptoms Immunologic: Reports: No Symptoms Exam - Exam Exam: See Below - Vital Signs Vital Signs: Last Vital Signs Temp 35.9 C 04/22/17 18:53 Pulse 137 H 04/22/17 18:53 Resp 29 H 04/22/17 18:53 BP 154/95 H 04/22/17 18:53 Pulse Ox 100 04/22/17 18:53 Weight: 64.864 kg - Exam General: Oriented, Moderate Distress, Lethargic, Other (breath smells fruity) HEENT: Conjunctiva Clear, EACs Clear, Posterior Pharynx Clear, Pupils Equal, Pupils Reactive. No: EOMI, Mucosa Moist & [place] Neck: Supple, Trachea Midline, +2 Carotid Pulse wo Bruit, Full Range of Motion Lungs: Clear to Auscultation, Other (rapid deep breathing). No: Normal Respiratory Effort Cardiovascular: Tachycardia GI/Abdominal Exam: Normal Bowel Sounds, Soft, Non-Tender, No Organomegaly, No Distention, No Abnormal Bruit, No Mass (Male) Exam: Deferred Rectal (Males) Exam: Deferred Back Exam: Normal Inspection, Decreased Range of Motion Extremities: Normal Inspection, Normal Range of Motion, Non-Tender, No Pedal Edema, Normal Capillary Refill Skin: Warm, Dry, Intact Neuro Extensive - Mental Status: Normal Cognition, Memory Intact Neuro Extensive - Motor, Sensory, Reflexes: CN II-XII Intact (limited due to AMS ), Normal Gait Psychiatric: Alert, Normal Affect, Normal Mood - Patient Data Result Diagrams: 04/23/17 05:48 04/23/17 10:25 *Q Meaningful Use (ADM) - VTE *Q VTE Criteria *Q: - Stroke *Q Stroke Criteria *Q: - AMI *Q AMI Criteria *Q: Problem List Initiated/Reviewed/Updated: Yes Orders Last 24hrs: Medication Orders Insulin Human Regular 100 unit (/ Sodium Chloride) 100 mls @ 6.4 mls/hr IV TITRATE PRINCE; 6.4 UNITS/HR PRN Reason: Protocol Last Admin: 04/22/17 20:25 Dose: 6.4 units/hr, 6.4 mls/hr Sodium Chloride (Normal Saline) 1,000 mls @ 999 mls/hr IV ONETIME ONE Stop: 04/22/17 21:22 Last Admin: 04/22/17 20:39 Dose: 999 mls/hr Sodium Chloride (Normal Saline) 1,000 mls @ 999 mls/hr IV ONETIME ONE Stop: 04/22/17 21:44 Last Admin: 04/22/17 20:45 Dose: 999 mls/hr Insulin Human Regular (Humulin R) 5 unit IV BIDAC ONE PRN Reason: Protocol Stop: 04/23/17 19:15 Last Admin: 04/22/17 19:05 Dose: 5 unit Assessment/Plan Comment:: Assessment/Plan: Acute: Severe Diabetic Ketoacidosis - Ketones is 15.9 ( > 5.0 mM is DKA) - DKA procotol - Aggressive IV hydration: Received 3L NS in ED - NPO until Bicarbs improves - Diabetic Education DM1 - Last A1C 9 07/01/2016 - On Insulin Pump - Continue Insulin regimen once DKA resolves - Diabetic Educations - ADA diet once po and check A1C in AM Severe Clinical Dehydration - Likely Significantly Elevated Serum Osmolality - Aggressive IV Hydration - Monitor UOP AG-MA - 2/2 DKA - Bicarb is 3L, already received 3L NS in ED - Will repeat level, if level remains low - Will switch to LR and add Bicarb infusion - No need for intubation, he is compensating with rapid respiratory rate Leukoctyosis - WBC 17K and Dehydration (leuko-concentration) - 2/2 Stress - CRP is normal - Will monitor Chest Wall Pain - Troponin x1 negative - CXR no acute abnormality Hx/o Medical Non-Compliance Chronic: Transaminitis, He has been evaluated by GI in past with benign findings on biopsy Hypomagnesemia Plan: Admit to ICU Insulin drip per DKA protocol Serial BMP Q4 Levemir 12 units SubQ x1 Additional orders as above Code status:1
[2017-04-22] MEDS ORDERED: Sodium Chloride 0.9% 1,000 ML IV SCH (21:15)
[2017-04-22] MEDS ORDERED: hydrALAZINE 20 MG/ML SDV IVPUSH PRN (21:20)
[2017-04-22] MEDS ORDERED: LORazepam 2 MG/ML MDV IVPUSH PRN (21:20)
[2017-04-22] MEDS ORDERED: NS + KCl 20mEq/L 1,000 ML IV SCH (21:30)
[2017-04-22] MEDS: Metoprolol Tartrate 5 MG/5 ML SDV IVPUSH PRN (22:40)
[2017-04-22] MEDS: Acetaminophen 325 MG Tab PO PRN (22:59)
[2017-04-22] MEDS ORDERED: Insulin Detemir 100 Units/ML 3 ML Pen SUBCUT ONE (23:14)
[2017-04-22] MEDS: Lactated Ringers 1,000 ML IV SCH (23:18)
[2017-04-22] MEDS ORDERED: Sodium Bicarbonate 150 MEQ in Dextrose 5% in Water 1,000 ML IV ONE ×2 (23:28)
[2017-04-23] MEDS: Lactated Ringers 1,000 ML IV SCH (00:27)
[2017-04-23] MEDS ORDERED: Sodium Bicarbonate 150 MEQ in Dextrose 5% in Water 1,000 ML IV ONE ×2 (00:30)
[2017-04-23] MEDS: Dextrose 5% in Water 1,000 ML IV SCH ×2 (01:35→08:13)
[2017-04-23] MEDS ORDERED: 50% Dextrose in Water 50 ML Syringe IVPUSH PRN (02:13)
[2017-04-23] MEDS: Metoprolol Tartrate 5 MG/5 ML SDV IVPUSH PRN (02:55)
--- NOTE | 2017-04-23 07:04 | CR ---
Chest: Portable view of the chest was obtained. Comparison: Previous chest x-ray of 11/07/16. Heart size and mediastinum are within normal limits. Lungs are clear. Bony structures are grossly intact. Impression: 1. Nothing acute is identified on portable chest x-ray. Diagnostic code #1
[2017-04-23] MEDS ORDERED: Potassium Chloride 20 MEQ Tab.ER PO ONE (07:30)
[2017-04-23] MEDS: Magnesium Sulfate/Water 2 GM in Premix Bag 1 BAG IV SCH ×2 (07:46→09:54)
--- NOTE | 2017-04-23 10:28 | PCM.PN ---
- General Info Date of Service: 04/23/17 Admission Dx/Problem (Free Text): DKA Subjective Update: Follow up Functional Status: Reports: Pain Controlled, Tolerating Diet, Urinating. Denies : New Symptoms - Review of Systems General: Denies: Fever, Weakness, Fatigue, Malaise HEENT: Reports: No Symptoms Pulmonary: Denies: Shortness of Breath Cardiovascular: Denies: Chest Pain Gastrointestinal: Reports: Flatus. Denies: Abdominal Pain, Diarrhea, Nausea, Vomiting Genitourinary: Reports: No Symptoms Musculoskeletal: Reports: No Symptoms Skin: Reports: No Symptoms Neurological: Denies: Confusion, Difficulty Walking, Weakness, Gait Disturbance Psychiatric: Denies: Depression, Anxiety, Agitation, Cravings, Hallucinations Systems Review Comment:: No acute issues. He feels much better. He is alert awake and comfortable. He is no longer on insulin drip. He appears to have re-GA-pped mildly. Bicarb is now much better at 18. He is still on D5 NS. He has no new complaints. - Patient Data Vitals - Most Recent: Last Vital Signs Temp 37.0 C 04/23/17 07:51 Pulse 114 H 04/23/17 04:00 Resp 19 04/23/17 07:51 BP 125/85 04/23/17 07:51 Pulse Ox 100 04/23/17 07:51 Weight - Most Recent: 68.039 kg I&O - Last 24 Hours: Intake & Output 04/22/17 04/23/17 04/23/17 22:59 06:59 14:59 Intake Total 6531 Output Total 1500 Balance 5031 Lab Results Last 24 Hours: Laboratory Results - last 24 hr 04/22/17 04/22/17 04/22/17 Range/Units 21:13 22:50 22:51 WBC (4.23-9.07) K/mm3 RBC (4.63-6.08) M/mm3 Hgb (13.7-17.5) gm/L Hct (40.1-51.0) % MCV (79.0-92.2) fl MCH (25.7-32.2) pg MCHC (32.2-35.5) g/dl RDW Std Deviation (35.1-43.9) fL Plt Count (163-337) K/mm3 MPV (9.4-12.3) fl Neut % (Auto) (34.0-67.9) % Lymph % (Auto) (21.8-53.1) % [place] % (Auto) (5.3-12.2) % Eos % (Auto) (0.8-7.0) Baso % (Auto) (0.1-1.2) % Neut # (Auto) (1.78-5.38) K/mm3 Lymph # (Auto) (1.32-3.57) K/mm3 [place] # (Auto) (0.30-0.82) K/mm3 Eos # (Auto) (0.04-0.54) K/mm3 Baso # (Auto) (0.01-0.08) K/mm3 Puncture Site Rt radial ABG pH 6.96 L* (7.35-7.45) ABG pCO2 10.9 L* (35.0-45.0) mmHg ABG pO2 143.0 H (80.0-100.0) mmHg ABG HCO3 2.3 L (22.0-26.0) meq/L ABG O2 Saturation 97.7 H (96.0-97.0) % ABG Base Excess -29.6 L (-2-2.0) O2 Delivery Device Room air Sodium 141 (136-145) mEq/L Potassium 4.9 (3.5-5.1) mEq/L Chloride 105 (98-107) mEq/L Carbon Dioxide 3 L* (21-32) mEq/L Anion Gap 37.9 H (5-15) BUN 12 (7-18) mg/dL Creatinine 1.4 H (0.7-1.3) mg/dL Est Cr Clr Drug Dosing 77.65 mL/min Estimated GFR (MDRD) > 60 (>60) mL/min BUN/Creatinine Ratio 8.6 L (14-18) Glucose 311 H (74-106) mg/dL POC Glucose 261 H (70-105) mg/dL Hemoglobin A1c (4.50-6.20) % Lactic Acid (0.4-2.0) mmol/L Calcium 8.0 L (8.5-10.1) mg/dL Magnesium (1.8-2.4) mg/dl Urine Color (Yellow) Urine Appearance (Clear) Urine pH (5.0-8.0) Ur Specific [place] (1.005-1.030) Urine Protein (Negative) Urine Glucose (UA) (Negative) Urine Ketones (Negative) Urine Occult Blood (Negative) Urine Nitrite (Negative) Urine Bilirubin (Negative) Urine Urobilinogen (0.2-1.0) Ur Leukocyte Esterase (Negative) Urine RBC (0-5) /hpf Urine WBC (0-5) /hpf Urine WBC Clumps (NOT SEEN) /hpf Ur Epithelial Cells (0-5) /hpf Urine Bacteria (FEW) /hpf Coarse Granular Casts (0-5) /hpf Urine Mucus (FEW) /hpf Urine Yeast (NOT SEEN) 04/22/17 04/23/17 04/23/17 Range/Units 23:00 00:06 00:21 WBC (4.23-9.07) K/mm3 RBC (4.63-6.08) M/mm3 Hgb (13.7-17.5) gm/L Hct (40.1-51.0) % MCV (79.0-92.2) fl MCH (25.7-32.2) pg MCHC (32.2-35.5) g/dl RDW Std Deviation (35.1-43.9) fL Plt Count (163-337) K/mm3 MPV (9.4-12.3) fl Neut % (Auto) (34.0-67.9) % Lymph % (Auto) (21.8-53.1) % [place] % (Auto) (5.3-12.2) % Eos % (Auto) (0.8-7.0) Baso % (Auto) (0.1-1.2) % Neut # (Auto) (1.78-5.38) K/mm3 Lymph # (Auto) (1.32-3.57) K/mm3 [place] # (Auto) (0.30-0.82) K/mm3 Eos # (Auto) (0.04-0.54) K/mm3 Baso # (Auto) (0.01-0.08) K/mm3 Puncture Site ABG pH (7.35-7.45) ABG pCO2 (35.0-45.0) mmHg ABG pO2 (80.0-100.0) mmHg ABG HCO3 (22.0-26.0) meq/L ABG O2 Saturation (96.0-97.0) % ABG Base Excess (-2-2.0) O2 Delivery Device Sodium (136-145) mEq/L Potassium (3.5-5.1) mEq/L Chloride (98-107) mEq/L Carbon Dioxide (21-32) mEq/L Anion Gap (5-15) BUN (7-18) mg/dL Creatinine (0.7-1.3) mg/dL Est Cr Clr Drug Dosing mL/min Estimated GFR (MDRD) (>60) mL/min BUN/Creatinine Ratio (14-18) Glucose (74-106) mg/dL POC Glucose 143 H (70-105) mg/dL Hemoglobin A1c (4.50-6.20) % Lactic Acid 5.5 H (0.4-2.0) mmol/L Calcium (8.5-10.1) mg/dL Magnesium (1.8-2.4) mg/dl Urine Color Yellow (Yellow) Urine Appearance Clear (Clear) Urine pH 5.5 (5.0-8.0) Ur Specific [place] 1.025 (1.005-1.030) Urine Protein 1+ H (Negative) Urine Glucose (UA) 1+ H (Negative) Urine Ketones 3+ H (Negative) Urine Occult Blood Trace-lysed H (Negative) Urine Nitrite Negative (Negative) Urine Bilirubin 1+ H (Negative) Urine Urobilinogen 0.2 (0.2-1.0) Ur Leukocyte Esterase Negative (Negative) Urine RBC 0-5 (0-5) /hpf Urine WBC 0-5 (0-5) /hpf Urine WBC Clumps Not seen (NOT SEEN) /hpf Ur Epithelial Cells 0-5 (0-5) /hpf Urine Bacteria Few (FEW) /hpf Coarse Granular Casts 0-5 (0-5) /hpf Urine Mucus Not seen (FEW) /hpf Urine Yeast Not seen (NOT SEEN) 04/23/17 04/23/17 04/23/17 Range/Units 01:07 02:10 02:15 WBC (4.23-9.07) K/mm3 RBC (4.63-6.08) M/mm3 Hgb (13.7-17.5) gm/L Hct (40.1-51.0) % MCV (79.0-92.2) fl MCH (25.7-32.2) pg MCHC (32.2-35.5) g/dl RDW Std Deviation (35.1-43.9) fL Plt Count (163-337) K/mm3 MPV (9.4-12.3) fl Neut % (Auto) (34.0-67.9) % Lymph % (Auto) (21.8-53.1) % [place] % (Auto) (5.3-12.2) % Eos % (Auto) (0.8-7.0) Baso % (Auto) (0.1-1.2) % Neut # (Auto) (1.78-5.38) K/mm3 Lymph # (Auto) (1.32-3.57) K/mm3 [place] # (Auto) (0.30-0.82) K/mm3 Eos # (Auto) (0.04-0.54) K/mm3 Baso # (Auto) (0.01-0.08) K/mm3 Puncture Site ABG pH (7.35-7.45) ABG pCO2 (35.0-45.0) mmHg ABG pO2 (80.0-100.0) mmHg ABG HCO3 (22.0-26.0) meq/L ABG O2 Saturation (96.0-97.0) % ABG Base Excess (-2-2.0) O2 Delivery Device Sodium 143 (136-145) mEq/L Potassium 4.0 (3.5-5.1) mEq/L Chloride 109 H (98-107) mEq/L Carbon Dioxide 10 L (21-32) mEq/L Anion Gap 28.0 H (5-15) BUN 9 (7-18) mg/dL Creatinine 1.3 (0.7-1.3) mg/dL Est Cr Clr Drug Dosing 83.16 mL/min Estimated GFR (MDRD) > 60 (>60) mL/min BUN/Creatinine Ratio 6.9 L (14-18) Glucose 99 (74-106) mg/dL POC Glucose 88 63 L (70-105) mg/dL Hemoglobin A1c (4.50-6.20) % Lactic Acid (0.4-2.0) mmol/L Calcium 7.9 L (8.5-10.1) mg/dL Magnesium (1.8-2.4) mg/dl Urine Color (Yellow) Urine Appearance (Clear) Urine pH (5.0-8.0) Ur Specific [place] (1.005-1.030) Urine Protein (Negative) Urine Glucose (UA) (Negative) Urine Ketones (Negative) Urine Occult Blood (Negative) Urine Nitrite (Negative) Urine Bilirubin (Negative) Urine Urobilinogen (0.2-1.0) Ur Leukocyte Esterase (Negative) Urine RBC (0-5) /hpf Urine WBC (0-5) /hpf Urine WBC Clumps (NOT SEEN) /hpf Ur Epithelial Cells (0-5) /hpf Urine Bacteria (FEW) /hpf Coarse Granular Casts (0-5) /hpf Urine Mucus (FEW) /hpf Urine Yeast (NOT SEEN) 04/23/17 04/23/17 04/23/17 Range/Units 02:46 04:52 05:48 WBC 6.79 (4.23-9.07) K/mm3 RBC 3.82 L (4.63-6.08) M/mm3 Hgb 11.1 L (13.7-17.5) gm/L Hct 32.6 L (40.1-51.0) % MCV 85.3 (79.0-92.2) fl MCH 29.1 (25.7-32.2) pg MCHC 34.0 (32.2-35.5) g/dl RDW Std Deviation 49.0 H (35.1-43.9) fL Plt Count 302 (163-337) K/mm3 MPV 8.4 L (9.4-12.3) fl Neut % (Auto) 61.0 (34.0-67.9) % Lymph % (Auto) 28.1 (21.8-53.1) % [place] % (Auto) 10.2 (5.3-12.2) % Eos % (Auto) 0 L (0.8-7.0) Baso % (Auto) 0.1 (0.1-1.2) % Neut # (Auto) 4.14 (1.78-5.38) K/mm3 Lymph # (Auto) 1.91 (1.32-3.57) K/mm3 [place] # (Auto) 0.69 (0.30-0.82) K/mm3 Eos # (Auto) 0.00 L (0.04-0.54) K/mm3 Baso # (Auto) 0.01 (0.01-0.08) K/mm3 Puncture Site ABG pH (7.35-7.45) ABG pCO2 (35.0-45.0) mmHg ABG pO2 (80.0-100.0) mmHg ABG HCO3 (22.0-26.0) meq/L ABG O2 Saturation (96.0-97.0) % ABG Base Excess (-2-2.0) O2 Delivery Device Sodium (136-145) mEq/L Potassium (3.5-5.1) mEq/L Chloride (98-107) mEq/L Carbon Dioxide (21-32) mEq/L Anion Gap (5-15) BUN (7-18) mg/dL Creatinine (0.7-1.3) mg/dL Est Cr Clr Drug Dosing mL/min Estimated GFR (MDRD) (>60) mL/min BUN/Creatinine Ratio (14-18) Glucose (74-106) mg/dL POC Glucose 109 H 100 (70-105) mg/dL Hemoglobin A1c (4.50-6.20) % Lactic Acid (0.4-2.0) mmol/L Calcium (8.5-10.1) mg/dL Magnesium (1.8-2.4) mg/dl Urine Color (Yellow) Urine Appearance (Clear) Urine pH (5.0-8.0) Ur Specific [place] (1.005-1.030) Urine Protein (Negative) Urine Glucose (UA) (Negative) Urine Ketones (Negative) Urine Occult Blood (Negative) Urine Nitrite (Negative) Urine Bilirubin (Negative) Urine Urobilinogen (0.2-1.0) Ur Leukocyte Esterase (Negative) Urine RBC (0-5) /hpf Urine WBC (0-5) /hpf Urine WBC Clumps (NOT SEEN) /hpf Ur Epithelial Cells (0-5) /hpf Urine Bacteria (FEW) /hpf Coarse Granular Casts (0-5) /hpf Urine Mucus (FEW) /hpf Urine Yeast (NOT SEEN) 04/23/17 04/23/17 Range/Units 05:48 05:48 WBC (4.23-9.07) K/mm3 RBC (4.63-6.08) M/mm3 Hgb (13.7-17.5) gm/L Hct (40.1-51.0) % MCV (79.0-92.2) fl MCH (25.7-32.2) pg MCHC (32.2-35.5) g/dl RDW Std Deviation (35.1-43.9) fL Plt Count (163-337) K/mm3 MPV (9.4-12.3) fl Neut % (Auto) (34.0-67.9) % Lymph % (Auto) (21.8-53.1) % [place] % (Auto) (5.3-12.2) % Eos % (Auto) (0.8-7.0) Baso % (Auto) (0.1-1.2) % Neut # (Auto) (1.78-5.38) K/mm3 Lymph # (Auto) (1.32-3.57) K/mm3 [place] # (Auto) (0.30-0.82) K/mm3 Eos # (Auto) (0.04-0.54) K/mm3 Baso # (Auto) (0.01-0.08) K/mm3 Puncture Site ABG pH (7.35-7.45) ABG pCO2 (35.0-45.0) mmHg ABG pO2 (80.0-100.0) mmHg ABG HCO3 (22.0-26.0) meq/L ABG O2 Saturation (96.0-97.0) % ABG Base Excess (-2-2.0) O2 Delivery Device Sodium 140 (136-145) mEq/L Potassium 3.4 L (3.5-5.1) mEq/L Chloride 105 (98-107) mEq/L Carbon Dioxide 18 L (21-32) mEq/L Anion Gap 20.4 H (5-15) BUN 6 L (7-18) mg/dL Creatinine 1.1 (0.7-1.3) mg/dL Est Cr Clr Drug Dosing 103.09 mL/min Estimated GFR (MDRD) > 60 (>60) mL/min BUN/Creatinine Ratio 5.5 L (14-18) Glucose 96 (74-106) mg/dL POC Glucose (70-105) mg/dL Hemoglobin A1c 11.50 H (4.50-6.20) % Lactic Acid (0.4-2.0) mmol/L Calcium 7.6 L (8.5-10.1) mg/dL Magnesium 1.2 L (1.8-2.4) mg/dl Urine Color (Yellow) Urine Appearance (Clear) Urine pH (5.0-8.0) Ur Specific [place] (1.005-1.030) Urine Protein (Negative) Urine Glucose (UA) (Negative) Urine Ketones (Negative) Urine Occult Blood (Negative) Urine Nitrite (Negative) Urine Bilirubin (Negative) Urine Urobilinogen (0.2-1.0) Ur Leukocyte Esterase (Negative) Urine RBC (0-5) /hpf Urine WBC (0-5) /hpf Urine WBC Clumps (NOT SEEN) /hpf Ur Epithelial Cells (0-5) /hpf Urine Bacteria (FEW) /hpf Coarse Granular Casts (0-5) /hpf Urine Mucus (FEW) /hpf Urine Yeast (NOT SEEN) Med Orders - Current: Current Medications Acetaminophen (Tylenol) 650 mg PO Q4H PRN PRN Reason: Pain (Mild 1-3)/fever Last Admin: 04/22/17 22:59 Dose: 650 mg Acetaminophen (Tylenol) 650 mg RECTAL Q4H PRN PRN Reason: Pain (mild 1-3) Albuterol/Ipratropium (Duoneb 3.0-0.5 Mg/3 Ml) 3 ml NEB Q4HRRT PRN PRN Reason: Shortness Of Breath/wheezing Bisacodyl (Dulcolax) 5 mg PO DAILY PRN PRN Reason: Constipation Dextrose/Water (Dextrose 50% In Water) 50 ml IVPUSH ASDIRECTED PRN PRN Reason: Blood Glucose Last Admin: 04/23/17 02:15 Dose: 25 ml Docusate Sodium (Colace) 100 mg PO BID PRN PRN Reason: Constipation Hydralazine HCl (Apresoline) 20 mg IVPUSH Q4H PRN PRN Reason: Hypertension Hydromorphone HCl (Dilaudid) 0.25 mg IVPUSH Q2H PRN PRN Reason: Pain (severe 7-10) Insulin Human Regular 100 unit (/ Sodium Chloride) 100 mls @ 6.4 mls/hr IV TITRATE PRINCE; 6.4 UNITS/HR PRN Reason: Protocol Last Titration: 04/23/17 01:08 Dose: 0 units/hr, 0 mls/hr Promethazine HCl 12.5 mg/ (Sodium Chloride) 50.5 mls @ 100 mls/hr IV Q6H PRN PRN Reason: Nausea/Vomiting Sodium Bicarbonate 150 meq/ (Dextrose/Water) 1,150 mls @ 100 mls/hr IV ONETIME ONE Stop: 04/23/17 11:59 Last Admin: 04/23/17 00:44 Dose: 100 mls/hr Dextrose/Water (Dextrose 5% In Water) 1,000 mls @ 150 mls/hr IV ASDIRECTED [facility] Last Admin: 04/23/17 08:13 Dose: 150 mls/hr Magnesium Sulfate 2 gm/ Premix 50 mls @ 25 mls/hr IV Q2H [facility] Stop: 04/23/17 11:59 Last Admin: 04/23/17 09:54 Dose: 25 mls/hr Insulin Aspart (Novolog) 0 unit SUBCUT QIDACANDBED [facility] PRN Reason: Protocol Lorazepam (Ativan) 1 mg IV Q6H PRN PRN Reason: Anxiety Lorazepam (Ativan) 2 mg IVPUSH Q4H PRN PRN Reason: Seizures Magnesium Sulfate (Pharmacy To Dose - Magnesium Replacement) 1 dose .XX ASDIRECTED [facility] Metoprolol Tartrate (Lopressor) 5 mg IVPUSH Q4H PRN PRN Reason: Tachycardia Last Admin: 04/23/17 02:55 Dose: 5 mg Ondansetron HCl (Zofran) 4 mg IV Q6H PRN PRN Reason: Nausea/Vomiting Last Admin: 04/23/17 08:32 Dose: 4 mg Oxycodone HCl (Oxycodone) 5 mg PO Q4H PRN PRN Reason: Pain (moderate 4-6) Polyethylene Glycol (Miralax) 17 gm PO DAILY PRN PRN Reason: Constipation Potassium Chloride (Pharmacy To Dose - Potassium Replacement) 1 dose .XX ASDIRECTED [facility] Senna/Docusate Sodium (Senna Plus) 1 tab PO BID PRN PRN Reason: Constipation Temazepam (Restoril) 15 mg PO BEDTIME PRN PRN Reason: Sleep Discontinued Medications Sodium Chloride (Normal Saline) 1,000 mls @ 999 mls/hr IV ONETIME ONE Stop: 04/22/17 20:14 Last Admin: 04/22/17 19:05 Dose: 999 mls/hr Sodium Chloride (Normal Saline) 1,000 mls @ 999 mls/hr IV ONETIME ONE Stop: 04/22/17 21:22 Last Admin: 04/22/17 20:39 Dose: 999 mls/hr Sodium Chloride (Normal Saline) Confirm Administered Dose 1,000 mls @ as directed .ROUTE .STK-MED ONE Stop: 04/22/17 20:24 Last Admin: 04/22/17 20:28 Dose: Not Given Sodium Chloride (Normal Saline) 1,000 mls @ 999 mls/hr IV ONETIME ONE Stop: 04/22/17 21:44 Last Admin: 04/22/17 20:45 Dose: 999 mls/hr Sodium Chloride (Normal Saline) 1,000 mls @ 125 mls/hr IV ASDIRECTED [facility] Last Infusion: 04/22/17 22:54 Dose: 999 mls/hr Potassium Chloride/Sodium Chloride (Normal Saline With 20 Meq Kcl) 1,000 mls @ 125 mls/hr IV ASDIRECTED [facility] Lactated Ringer's (Ringers, Lactated) 1,000 mls @ 499.514 mls/hr IV Q1H [facility] Stop: 04/23/17 01:00 Last Admin: 04/23/17 00:27 Dose: 999 mls/hr Sodium Bicarbonate 150 meq/ (Dextrose/Water) 1,150 mls @ 100 mls/hr IV ONETIME ONE Stop: 04/23/17 10:57 Last Admin: 04/23/17 01:02 Dose: Not Given Insulin Detemir (Levemir) 0 unit SUBCUT ONETIME ONE Stop: 04/22/17 23:15 Last Admin: 04/22/17 23:59 Dose: 12 units Insulin Human Regular (Humulin R) 5 unit IV BIDAC ONE PRN Reason: Protocol Stop: 04/23/17 19:15 Last Admin: 04/22/17 19:05 Dose: 5 unit Insulin Human Regular (Humulin R) Confirm Administered Dose 300 unit .ROUTE .STK -MED ONE Stop: 04/22/17 19:26 Last Admin: 04/22/17 20:28 Dose: Not Given Potassium Chloride (Klor-Con M20) 40 meq PO ONETIME ONE Stop: 04/23/17 07:31 Last Admin: 04/23/17 07:46 Dose: 40 meq - Exam General: Alert, Oriented, Cooperative, No Acute Distress HEENT: Pupils Equal, Pupils Reactive, EOMI, Mucous Membr. Moist/[place] Neck: Supple, Trachea Midline, No JVD, No Thyromegaly Lungs: Clear to Auscultation, Normal Respiratory Effort Cardiovascular: Regular Rate, Regular Rhythm GI/Abdominal Exam: Normal Bowel Sounds, Soft, Non-Tender, No Organomegaly, No Distention, No Abnormal Bruit, No Mass (Male) Exam: Deferred Back Exam: Normal Inspection, Full Range of Motion Extremities: Normal Inspection, Normal Range of Motion, Non-Tender, No Pedal Edema, Normal Capillary Refill Peripheral Pulses: 3+: Posterior Tibial (L), Posterior Tibial (R), Dorsalis Pedis (L), Dorsalis Pedis (R) Skin: Warm, Dry, Intact Neurological: No New Focal Deficit Psy/Mental Status: Alert, Normal Affect, Normal Mood - Problem List Review Problem List Initiated/Reviewed/Updated: Yes - My Orders Last 24 Hours: My Active Orders 04/22/17 21:07 Height and Weight [RC] 04 Up With Assistance [RC] ASDIRECTED Up ad Nichelle [RC] ASDIRECTED Acetaminophen [Tylenol] 650 mg PO Q4H PRN Acetaminophen [Tylenol] 650 mg RECTAL Q4H PRN Albuterol/Ipratropium [DuoNeb 3.0-0.5 MG/3 ML] 3 ml NEB Q4HRRT PRN Bisacodyl [Dulcolax] 5 mg PO DAILY PRN Docusate Sodium [Colace] 100 mg PO BID PRN Docusate Sodium/Sennosides [Senna Plus] 1 tab PO BID PRN HYDROmorphone [Dilaudid] 0.25 mg IVPUSH Q2H PRN LORazepam [Ativan] 1 mg IV Q6H PRN Ondansetron [Zofran] 4 mg IV Q6H PRN Polyethylene Glycol 3350 [MiraLAX] 17 gm PO DAILY PRN Promethazine [Phenergan] 12.5 mg Sodium Chloride 0.9% [Normal Saline] 50 ml IV Q6H Temazepam [Restoril] 15 mg PO BEDTIME PRN oxyCODONE 5 mg PO Q4H PRN Resuscitation Status Routine 04/22/17 21:08 Cardiac Monitoring [RC] CONTINUOUS Intake and Output [RC] 06,14,22 Oxygen Therapy [RC] PRN VTE/DVT Education [RC] PER UNIT ROUTINE Vital Signs [RC] Q4HR 04/22/17 21:09 Sequential Compression Device [OM.PC] Per Unit Routine 04/22/17 21:10 Antiembolic Devices [RC] QSHIFT RT Aerosol Therapy [RC] ASDIRECTED 04/22/17 21:11 Consult to Case Management [CONS] Routine Consult to Diabetic Nurse Specialist [CONS] Routine Consult to Manufacturing Supervisor 2Nd Shift [CONS] Routine Consult to College Associate [CONS] Routine 04/22/17 21:20 LORazepam [Ativan] 2 mg IVPUSH Q4H PRN Metoprolol Tartrate [Lopressor] 5 mg IVPUSH Q4H PRN hydrALAZINE [Apresoline] 20 mg IVPUSH Q4H PRN 04/22/17 21:30 Magnesium Rep Pharmacy to Dose [Pharmacy to Dose - Magnesium Replacement] 1 dose .XX ASDIRECTED Potassium Rep Pharmacy to Dose [Pharmacy to Dose - Potassium Replacement] 1 dose .XX ASDIRECTED 04/23/17 00:30 Sodium Bicarbonate [Sodium Bicarbonate 8.4%] 150 meq Dextrose 5% in Water 1, 000 ml IV ONETIME 04/23/17 01:15 Dextrose 5% in Water 1,000 ml IV ASDIRECTED 04/23/17 02:13 Dextrose 50% in Water 50 ml IVPUSH ASDIRECTED PRN 04/23/17 03:38 Blood Glucose Check, Bedside [RC] QIDACANDBED 04/23/17 08:00 Magnesium Sulfate/Water [Magnesium Sulfate 2 GM in Water 50 ML] 2 gm Premix Bag 1 bag IV Q2H 04/23/17 10:04 Blood Glucose Check, Bedside [RC] QIDACANDBED 04/23/17 10:07 Consult to Physician [CONS] Routine 04/23/17 10:09 Notify Provider Consults [RC] ASDIRECTED 04/23/17 10:15 BMP [BASIC METABOLIC PANEL,BMP] [CHEM] Q4H 04/23/17 11:00 Insulin Aspart [NovoLOG] See Protocol SUBCUT QIDACANDBED 04/23/17 Breakfast Consistent Carbohydrate Diet [DIET] 04/24/17 05:11 BASIC METABOLIC PANEL,BMP [CHEM] AM CBC WITH AUTO DIFF [HEME] AM MAGNESIUM [CHEM] AM 04/25/17 05:11 BASIC METABOLIC PANEL,BMP [CHEM] AM CBC WITH AUTO DIFF [HEME] AM MAGNESIUM [CHEM] AM 04/26/17 05:11 BASIC METABOLIC PANEL,BMP [CHEM] AM CBC WITH AUTO DIFF [HEME] AM MAGNESIUM [CHEM] AM 04/27/17 05:11 BASIC METABOLIC PANEL,BMP [CHEM] AM CBC WITH AUTO DIFF [HEME] AM MAGNESIUM [CHEM] AM - Plan Plan:: Assessment/Plan: Acute: DM1 - Last A1C 9 07/01/2016, now 11.50 - On Insulin Pump - Started insulin regimen - Diabetic Education - ADA diet once AG-MA - 2/2 DKA - Bicarb is 3L, already received 3L NS in ED - Repeat level was still 3L - Received Bicarb infusion, Bicarb now is 18 - AG 20 ---> 22.7 Electrolyte Abnormality - Hypokalemia and Hypomagnesemia - 2/2 inadequate in take - K 3.4 and Mg 1.2 - Replete and re-check level Hx/o Medical Non-Compliance Resolved: S/p Severe Clinical Dehydration - Likely Significantly Elevated Serum Osmolality - Aggressive IV Hydration - Monitor UOP S/p Severe Diabetic Ketoacidosis - Ketones is 15.9 ( > 5.0 mM is DKA) - DKA procotol - Aggressive IV hydration: Received 3L NS in ED - NPO until Bicarbs improves - Diabetic Education S/p Leukoctyosis - WBC 17K --> 6.79K - 2/2 Stress - CP is normal - Will monitor S/p Chest Wall Pain - Troponin x1 negative - CXR no acute abnormality Chronic: Transaminitis, He has been evaluated by GI in past with benign findings on biopsy Hypomagnesemia Plan: Patient is much better clinically Transfer to Med-Surg later today Resume Insulin Regimen Discontinue IV fluids Additional orders as above Code status:1 Possible d/c in am Per patient, he has had an upset stomach for a couple of days. He has also been out of his insulin for 1-2 weeks now. He has placed on order online but has not gotten it yet. 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 His PCP now is Dr. Galicia.
[2017-04-23] MEDS ORDERED: Insulin Aspart 100 Units/ML 3 ML Pen SUBCUT SCH (11:00)
[2017-04-23] MEDS: Insulin Aspart 100 Units/ML 3 ML Pen SUBCUT SCH ×2 (11:24→17:28)
[2017-04-23] MEDS: Acetaminophen 325 MG Tab PO PRN (12:52)
[2017-04-23] MEDS: Insulin Aspart 100 Units/ML 3 ML Pen SUBCUT PRN ×3 (12:53→22:20)
[2017-04-23] MEDS ORDERED: Insulin Regular, Human 100 Units/ML 3 ML Vial IV ONE (19:14)
[2017-04-23] MEDS ORDERED: Insulin Detemir 100 Units/ML 3 ML Pen SUBCUT SCH (21:00)
[2017-04-24] MEDS ORDERED: Magnesium Sulfate/Water 2 GM in Premix Bag 1 BAG IV ONE (07:30)
[2017-04-24] MEDS: Potassium Chloride 20 MEQ Tab.ER PO SCH ×2 (07:38→11:37)
[2017-04-24] MEDS: Insulin Aspart 100 Units/ML 3 ML Pen SUBCUT SCH ×2 (07:45→11:37)
--- NOTE | 2017-04-24 09:38 | PCM.DCSUM1 ---
Discharge Summary - Hospital Course Brief History: This is a 22-year-old white male with past medical history of diabetes type I on insulin pump, hypertension, chronic transaminitis status post liver biopsy, and depression who presents to the emergency department with complaints of chest discomfort and was found in DKA. - Discharge Data Discharge Date: 04/24/17 Discharge Disposition: Home, Self-Care 01 Condition: Good - Discharge Diagnosis/Problem(s) (1) Diabetes type 1, uncontrolled SNOMED Code(s): 08545216, 930556128 ICD Code: E10.65 - TYPE 1 DIABETES MELLITUS WITH HYPERGLYCEMIA Status: Chronic Qualifiers: Diabetes mellitus complication status: with hyperglycemia Qualified Code(s) : E10.65 - Type 1 diabetes mellitus with hyperglycemia (2) Nonadherence to medical treatment SNOMED Code(s): 267028308 ICD Code: Z91.19 - PATIENT'S NONCOMPLIANCE W OTH MEDICAL TREATMENT AND REGIMEN Status: Acute (3) Dehydration SNOMED Code(s): 04433280 ICD Code: E86.0 - DEHYDRATION Status: Resolved (4) Leukocytosis SNOMED Code(s): 160345930, 296954222 ICD Code: D72.829 - ELEVATED WHITE BLOOD CELL COUNT, UNSPECIFIED Status: Resolved Qualifiers: Leukocytosis type: unspecified Qualified Code(s): D72.829 - Elevated white blood cell count, unspecified (5) Chest wall pain SNOMED Code(s): 459479892 ICD Code: R07.89 - OTHER CHEST PAIN Status: Resolved (6) Diabetic ketoacidosis associated with type 1 diabetes mellitus SNOMED Code(s): 671284877, 541453421 ICD Code: E10.10 - TYPE 1 DIABETES MELLITUS WITH KETOACIDOSIS WITHOUT COMA Status: Resolved Priority: High Qualifiers: Diabetes mellitus complication detail: without coma Qualified Code(s): E10.10 - Type 1 diabetes mellitus with ketoacidosis without coma - Patient Summary/Data Operative Procedure(s) Performed: None Complications: None Consults: Consultations 04/22/17 21:11 Consult to Case Management [CONS] Routine Consult to Diabetic Nurse Specialist [CONS] Routine Consult to Plastics Fabricator And Assembler [CONS] Routine Consult to Softball Player [CONS] Routine 04/23/17 10:07 Consult to Physician [CONS] Routine Recommended Follow-up Testing/Procedures: None Hospital Course: Patient was primarily admitted for treatment of DKA. He received supportive care along with DKA protocol. Slowly the patient improved on this regimen. His hospital course was uncomplicated. Patient is now ready for discharge. He was advised to make sure he phones in for refills as soon as he starts running low on his insulin supply. Patient was counseled about the importance of dietary and medical compliance to prevent similar episodes in the near future. Prior to discharge, patient was provided scripts for Levemir and NovoLog until he gets his refills for his insulin pump. His primary care doctor was called and updated regarding patient's discharge plan. - Patient Instructions Diet: Usual Diet as Tolerated, Diabetic Diet Activity: As Tolerated Driving: May Drive Today Showering/Bathing: May Shower Notify Provider of: Fever, Nausea and/or Vomiting Other/Special Instructions: - Please take all medications as directed. - Diabetes is a very serious disease, it is very important that you comply with dietary and medical treatment. - Make sure you phone in your refills if you know you be will running out of it. Do not procastinate or wait last minute. - Follow up with your primary care doctor in 1-2 weeks - Discharge Plan Prescriptions/Med Rec: Insulin Detemir [Levemir] 14 unit SUBCUT BEDTIME #1 pen Home Medications: Home Meds Insulin Pump/Infus. Set/Meter [Accu-Chek Combo System] 0 unit SQ ASDIRECTED [History] Insulin Aspart [Novolog Flexpen] 0 unit SQ ASDIRECTED PRN #1 04/24/17 [Rx] Insulin Detemir [Levemir] 14 unit SUBCUT BEDTIME #1 pen 04/24/17 [Rx] Patient Handouts: Insulin Treatment for Diabetes, Diabetic Ketoacidosis Referrals: PCP,Unknown [Primary Care Provider] - Jae Galicia MD [Physician] - - Discharge Summary/Plan Comment DC Time >30 min.: Yes (45 mins) Discharge Summary/Plan Comment: Discharge to Home - General Info Date of Service: 04/24/17 Admission Dx/Problem (Free Text: DKA Subjective Update: Follow up - Review of Systems General: Denies: Fever, Weakness, Fatigue, Malaise, Chills HEENT: Reports: No Symptoms Pulmonary: Denies: Shortness of Breath Cardiovascular: Denies: Chest Pain, Palpitations Gastrointestinal: Denies: Abdominal Pain, Diarrhea, Nausea, Vomiting Genitourinary: Reports: No Symptoms Musculoskeletal: Reports: No Symptoms Skin: Reports: No Symptoms Neurological: Denies: Confusion, Difficulty Walking, Weakness, Gait Disturbance Psychiatric: Denies: Depression, Anxiety, Agitation, Hallucinations Systems Review Comment: No overnight or acute issues. He is doing relatively well. e - Patient Data Vitals - Most Recent: Last Vital Signs Temp 36.3 C 04/24/17 08:00 Pulse 101 H 04/24/17 08:00 Resp 18 04/24/17 08:00 BP 144/106 H 04/24/17 08:22 Pulse Ox 100 04/24/17 08:00 Weight - Most Recent: 68.039 kg I&O - Last 24 hours: Intake & Output 04/23/17 04/24/17 04/24/17 22:59 06:59 14:59 Intake Total 2602 200 Balance 2602 200 Lab Results - Last 24 hrs: Laboratory Results - last 24 hr 04/22/17 04/23/17 04/23/17 Range/Units 22:50 10:25 11:13 WBC (4.23-9.07) K/mm3 RBC (4.63-6.08) M/mm3 Hgb (13.7-17.5) gm/L Hct (40.1-51.0) % MCV (79.0-92.2) fl MCH (25.7-32.2) pg MCHC (32.2-35.5) g/dl RDW Std Deviation (35.1-43.9) fL Plt Count (163-337) K/mm3 MPV (9.4-12.3) fl Neut % (Auto) (34.0-67.9) % Lymph % (Auto) (21.8-53.1) % [place] % (Auto) (5.3-12.2) % Eos % (Auto) (0.8-7.0) Baso % (Auto) (0.1-1.2) % Neut # (Auto) (1.78-5.38) K/mm3 Lymph # (Auto) (1.32-3.57) K/mm3 [place] # (Auto) (0.30-0.82) K/mm3 Eos # (Auto) (0.04-0.54) K/mm3 Baso # (Auto) (0.01-0.08) K/mm3 Sodium 141 137 (136-145) mEq/L Potassium 4.9 3.7 (3.5-5.1) mEq/L Chloride 105 100 (98-107) mEq/L Carbon Dioxide < 5 L* 18 L (21-32) mEq/L Anion Gap 35.9 H 22.7 H (5-15) BUN 12 5 L (7-18) mg/dL Creatinine 1.4 H 1.1 (0.7-1.3) mg/dL Est Cr Clr Drug Dosing 77.65 103.09 mL/min Estimated GFR (MDRD) > 60 > 60 (>60) mL/min BUN/Creatinine Ratio 8.6 L 4.5 L (14-18) Glucose 311 H 222 H (74-106) mg/dL POC Glucose 288 H (70-105) mg/dL Calcium 8.0 L 7.9 L (8.5-10.1) mg/dL Magnesium (1.8-2.4) mg/dl 04/23/17 04/23/17 04/23/17 Range/Units 14:30 17:00 21:30 WBC (4.23-9.07) K/mm3 RBC (4.63-6.08) M/mm3 Hgb (13.7-17.5) gm/L Hct (40.1-51.0) % MCV (79.0-92.2) fl MCH (25.7-32.2) pg MCHC (32.2-35.5) g/dl RDW Std Deviation (35.1-43.9) fL Plt Count (163-337) K/mm3 MPV (9.4-12.3) fl Neut % (Auto) (34.0-67.9) % Lymph % (Auto) (21.8-53.1) % [place] % (Auto) (5.3-12.2) % Eos % (Auto) (0.8-7.0) Baso % (Auto) (0.1-1.2) % Neut # (Auto) (1.78-5.38) K/mm3 Lymph # (Auto) (1.32-3.57) K/mm3 [place] # (Auto) (0.30-0.82) K/mm3 Eos # (Auto) (0.04-0.54) K/mm3 Baso # (Auto) (0.01-0.08) K/mm3 Sodium 136 135 L (136-145) mEq/L Potassium 3.4 L 4.2 (3.5-5.1) mEq/L Chloride 100 98 (98-107) mEq/L Carbon Dioxide 18 L 24 (21-32) mEq/L Anion Gap 21.4 H 17.2 H (5-15) BUN 7 10 (7-18) mg/dL Creatinine 1.5 H 1.1 (0.7-1.3) mg/dL Est Cr Clr Drug Dosing 72.07 103.09 mL/min Estimated GFR (MDRD) 60 > 60 (>60) mL/min BUN/Creatinine Ratio 4.7 L 9.1 L (14-18) Glucose 194 H 447 H (74-106) mg/dL POC Glucose 168 H (70-105) mg/dL Calcium 8.0 L 8.2 L (8.5-10.1) mg/dL Magnesium 1.7 L (1.8-2.4) mg/dl 04/23/17 04/24/17 04/24/17 Range/Units 23:02 06:05 06:05 WBC 4.30 (4.23-9.07) K/mm3 RBC 3.99 L (4.63-6.08) M/mm3 Hgb 11.6 L (13.7-17.5) gm/L Hct 33.7 L (40.1-51.0) % MCV 84.5 (79.0-92.2) fl MCH 29.1 (25.7-32.2) pg MCHC 34.4 (32.2-35.5) g/dl RDW Std Deviation 48.1 H (35.1-43.9) fL Plt Count 240 (163-337) K/mm3 MPV 8.2 L (9.4-12.3) fl Neut % (Auto) 42.1 (34.0-67.9) % Lymph % (Auto) 47.7 (21.8-53.1) % [place] % (Auto) 9.1 (5.3-12.2) % Eos % (Auto) 0.7 L (0.8-7.0) Baso % (Auto) 0.2 (0.1-1.2) % Neut # (Auto) 1.81 (1.78-5.38) K/mm3 Lymph # (Auto) 2.05 (1.32-3.57) K/mm3 [place] # (Auto) 0.39 (0.30-0.82) K/mm3 Eos # (Auto) 0.03 L (0.04-0.54) K/mm3 Baso # (Auto) 0.01 (0.01-0.08) K/mm3 Sodium 141 (136-145) mEq/L Potassium 3.4 L (3.5-5.1) mEq/L Chloride 104 (98-107) mEq/L Carbon Dioxide 26 (21-32) mEq/L Anion Gap 14.4 (5-15) BUN 7 (7-18) mg/dL Creatinine 1.0 (0.7-1.3) mg/dL Est Cr Clr Drug Dosing 113.40 mL/min Estimated GFR (MDRD) > 60 (>60) mL/min BUN/Creatinine Ratio 7.0 L (14-18) Glucose 87 (74-106) mg/dL POC Glucose 343 H (70-105) mg/dL Calcium 8.2 L (8.5-10.1) mg/dL Magnesium 1.7 L (1.8-2.4) mg/dl 04/24/17 Range/Units 06:05 WBC (4.23-9.07) K/mm3 RBC (4.63-6.08) M/mm3 Hgb (13.7-17.5) gm/L Hct (40.1-51.0) % MCV (79.0-92.2) fl MCH (25.7-32.2) pg MCHC (32.2-35.5) g/dl RDW Std Deviation (35.1-43.9) fL Plt Count (163-337) K/mm3 MPV (9.4-12.3) fl Neut % (Auto) (34.0-67.9) % Lymph % (Auto) (21.8-53.1) % [place] % (Auto) (5.3-12.2) % Eos % (Auto) (0.8-7.0) Baso % (Auto) (0.1-1.2) % Neut # (Auto) (1.78-5.38) K/mm3 Lymph # (Auto) (1.32-3.57) K/mm3 [place] # (Auto) (0.30-0.82) K/mm3 Eos # (Auto) (0.04-0.54) K/mm3 Baso # (Auto) (0.01-0.08) K/mm3 Sodium (136-145) mEq/L Potassium (3.5-5.1) mEq/L Chloride (98-107) mEq/L Carbon Dioxide (21-32) mEq/L Anion Gap (5-15) BUN (7-18) mg/dL Creatinine (0.7-1.3) mg/dL Est Cr Clr Drug Dosing mL/min Estimated GFR (MDRD) (>60) mL/min BUN/Creatinine Ratio (14-18) Glucose (74-106) mg/dL POC Glucose 92 (70-105) mg/dL Calcium (8.5-10.1) mg/dL Magnesium (1.8-2.4) mg/dl Med Orders - Current: Current Medications Acetaminophen (Tylenol) 650 mg PO Q4H PRN PRN Reason: Pain (Mild 1-3)/fever Last Admin: 04/23/17 12:52 Dose: 650 mg Acetaminophen (Tylenol) 650 mg RECTAL Q4H PRN PRN Reason: Pain (mild 1-3) Albuterol/Ipratropium (Duoneb 3.0-0.5 Mg/3 Ml) 3 ml NEB Q4HRRT PRN PRN Reason: Shortness Of Breath/wheezing Bisacodyl (Dulcolax) 5 mg PO DAILY PRN PRN Reason: Constipation Dextrose/Water (Dextrose 50% In Water) 50 ml IVPUSH ASDIRECTED PRN PRN Reason: Blood Glucose Last Admin: 04/23/17 02:15 Dose: 25 ml Docusate Sodium (Colace) 100 mg PO BID PRN PRN Reason: Constipation Hydralazine HCl (Apresoline) 20 mg IVPUSH Q4H PRN PRN Reason: Hypertension Last Admin: 04/24/17 08:32 Dose: 20 mg Hydromorphone HCl (Dilaudid) 0.25 mg IVPUSH Q2H PRN PRN Reason: Pain (severe 7-10) Insulin Human Regular 100 unit (/ Sodium Chloride) 100 mls @ 6.4 mls/hr IV TITRATE PRINCE; 6.4 UNITS/HR PRN Reason: Protocol Last Titration: 04/23/17 01:08 Dose: 0 units/hr, 0 mls/hr Promethazine HCl 12.5 mg/ (Sodium Chloride) 50.5 mls @ 100 mls/hr IV Q6H PRN PRN Reason: Nausea/Vomiting Insulin Aspart (Novolog) 6 unit SUBCUT TIDMEALS [facility] Last Admin: 04/24/17 07:45 Dose: Not Given Insulin Aspart (Novolog) 0 unit SUBCUT QIDACANDBED PRN; Protocol PRN Reason: Hyperglycemia Stop: 04/28/17 21:00 Last Admin: 04/23/17 22:20 Dose: 15 units Insulin Detemir (Levemir) 12 unit SUBCUT BEDTIME [facility] Last Admin: 04/23/17 22:21 Dose: 12 units Lorazepam (Ativan) 1 mg IV Q6H PRN PRN Reason: Anxiety Lorazepam (Ativan) 2 mg IVPUSH Q4H PRN PRN Reason: Seizures Magnesium Sulfate (Pharmacy To Dose - Magnesium Replacement) 1 dose .XX ASDIRECTED [facility] Metoprolol Tartrate (Lopressor) 5 mg IVPUSH Q4H PRN PRN Reason: Tachycardia Last Admin: 04/23/17 02:55 Dose: 5 mg Ondansetron HCl (Zofran) 4 mg IV Q6H PRN PRN Reason: Nausea/Vomiting Last Admin: 04/23/17 08:32 Dose: 4 mg Oxycodone HCl (Oxycodone) 5 mg PO Q4H PRN PRN Reason: Pain (moderate 4-6) Polyethylene Glycol (Miralax) 17 gm PO DAILY PRN PRN Reason: Constipation Potassium Chloride (Pharmacy To Dose - Potassium Replacement) 1 dose .XX ASDIRECTED [facility] Potassium Chloride (Klor-Con M20) 40 meq PO Q4H [facility] Stop: 04/24/17 11:31 Last Admin: 04/24/17 07:38 Dose: 40 meq Senna/Docusate Sodium (Senna Plus) 1 tab PO BID PRN PRN Reason: Constipation Temazepam (Restoril) 15 mg PO BEDTIME PRN PRN Reason: Sleep Last Admin: 04/24/17 00:02 Dose: 15 mg Discontinued Medications Sodium Chloride (Normal Saline) 1,000 mls @ 999 mls/hr IV ONETIME ONE Stop: 04/22/17 20:14 Last Admin: 04/22/17 19:05 Dose: 999 mls/hr Sodium Chloride (Normal Saline) 1,000 mls @ 999 mls/hr IV ONETIME ONE Stop: 04/22/17 21:22 Last Admin: 04/22/17 20:39 Dose: 999 mls/hr Sodium Chloride (Normal Saline) Confirm Administered Dose 1,000 mls @ as directed .ROUTE .STK-MED ONE Stop: 04/22/17 20:24 Last Admin: 04/22/17 20:28 Dose: Not Given Sodium Chloride (Normal Saline) 1,000 mls @ 999 mls/hr IV ONETIME ONE Stop: 04/22/17 21:44 Last Admin: 04/22/17 20:45 Dose: 999 mls/hr Sodium Chloride (Normal Saline) 1,000 mls @ 125 mls/hr IV ASDIRECTED PRINCE Last Infusion: 04/22/17 22:54 Dose: 999 mls/hr Potassium Chloride/Sodium Chloride (Normal Saline With 20 Meq Kcl) 1,000 mls @ 125 mls/hr IV ASDIRECTED PRINCE Lactated Ringer's (Ringers, Lactated) 1,000 mls @ 499.514 mls/hr IV Q1H [facility] Stop: 04/23/17 01:00 Last Admin: 04/23/17 00:27 Dose: 999 mls/hr Sodium Bicarbonate 150 meq/ (Dextrose/Water) 1,150 mls @ 100 mls/hr IV ONETIME ONE Stop: 04/23/17 10:57 Last Admin: 04/23/17 01:02 Dose: Not Given Sodium Bicarbonate 150 meq/ (Dextrose/Water) 1,150 mls @ 100 mls/hr IV ONETIME ONE Stop: 04/23/17 11:59 Last Admin: 04/23/17 00:44 Dose: 100 mls/hr Dextrose/Water (Dextrose 5% In Water) 1,000 mls @ 150 mls/hr IV ASDIRECTED [facility] Last Admin: 04/23/17 08:13 Dose: 150 mls/hr Magnesium Sulfate 2 gm/ Premix 50 mls @ 25 mls/hr IV Q2H [facility] Stop: 04/23/17 11:59 Last Admin: 04/23/17 09:54 Dose: 25 mls/hr Magnesium Sulfate 2 gm/ Premix 50 mls @ 25 mls/hr IV ONETIME ONE Stop: 04/24/17 09:29 Last Admin: 04/24/17 07:40 Dose: 25 mls/hr Insulin Aspart (Novolog) 0 unit SUBCUT QIDACANDBED PRINCE PRN Reason: Protocol Insulin Detemir (Levemir) 0 unit SUBCUT ONETIME ONE Stop: 04/22/17 23:15 Last Admin: 04/22/17 23:59 Dose: 12 units Insulin Human Regular (Humulin R) 5 unit IV BIDAC ONE PRN Reason: Protocol Stop: 04/23/17 19:15 Last Admin: 04/22/17 19:05 Dose: 5 unit Insulin Human Regular (Humulin R) Confirm Administered Dose 300 unit .ROUTE .STK -MED ONE Stop: 04/22/17 19:26 Last Admin: 04/22/17 20:28 Dose: Not Given Potassium Chloride (Klor-Con M20) 40 meq PO ONETIME ONE Stop: 04/23/17 07:31 Last Admin: 04/23/17 07:46 Dose: 40 meq - Exam General: Reports: Alert, Oriented, Cooperative, No Acute Distress HEENT: Reports: Pupils Equal, Pupils Reactive, EOMI, Mucous Membr. Moist/[place] Neck: Reports: Supple, Trachea Midline, No JVD Lungs: Reports: Clear to Auscultation, Normal Respiratory Effort Cardiovascular: Reports: Regular Rate, Regular Rhythm GI/Abdominal Exam: Normal Bowel Sounds, Soft, Non-Tender, No Organomegaly, No Distention, No Abnormal Bruit, No Mass (Male) Exam: Deferred Rectal (Males) Exam: Deferred Back Exam: Reports: Normal Inspection, Full Range of Motion Extremities: Normal Inspection, Normal Range of Motion, Non-Tender, No Pedal Edema, Normal Capillary Refill Skin: Reports: Warm, Dry, Intact Neurological: Reports: No New Focal Deficit Psy/Mental Status: Reports: Alert, Normal Affect, Normal Mood *Q Meaningful Use (DIS) - VTE *Q VTE Criteria *Q: - Stroke *Q Stroke Criteria *Q: - AMI *Q AMI Criteria *Q:
[2017-04-24 09:48] VITALS: BP 134/82
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
== END 2017-04-24 12:08 | disposition home or self-care (01) | DRG 639 ==
LOC: JD.ED 18:38 → JD.ICU 21:01
PROVIDERS: ADMIT Internal Medicine; ATTEND Internal Medicine
DX: E10.10 Type 1 diabetes mellitus with ketoacidosis without coma (principal); Z79.4 Long term (current) use of insulin; Z96.41 Presence of insulin pump (external) (internal); E86.0 Dehydration; R07.89 Other chest pain; I10 Essential (primary) hypertension; Z87.891 Personal history of nicotine dependence; F32.9 Major depressive disorder, single episode, unspecified; R74.0 Nonspecific elevation of levels of transaminase and lactic acid dehydrogenase [LDH]; Z91.19 Patient's noncompliance with other medical treatment and regimen; D72.829 Elevated white blood cell count, unspecified
CPT/HCPCS: 36415; 36600; 71010; 71010-26; 80048; 80053; 81001; 82009; 82803; 82962; 83036; 83605; 83735; 84484; 85025; 86140; 93005; 96360; 96361; 96365; 96366; 96376; 99284; 99285-25; A9270-GY; J0360; J1815-GY; J1817; J2405; J3475; J3490; J7030; J7040; J7060; J7120

== ENCOUNTER 2017-06-06 21:08 | Inpatient (IN) | payer MEDICAID ==
--- NOTE | 2017-06-06 21:20 | EDM.PDOC ---
ED HPI GENERAL MEDICAL PROBLEM - General Chief Complaint: Diabetic Complaint Stated Complaint: VOMITING Time Seen by Provider: 06/06/17 21:19 - History of Present Illness INITIAL COMMENTS - FREE TEXT/NARRATIVE: 22-year-old male returns emergency room with elevated blood sugars nausea and vomiting. Patient with a history of recurrent absent DKA returns the emergency room with several hour history of nausea vomiting his blood sugars were noted to be 575 at home of approximately an hour ago. The patient uses an insulin pump but this is had problems as his supplies, [place] the patient states she's been using his regular long-acting short acting insulins however his blood sugar shot up. Patient denies any pain he is most concerned about declining diabetes and his nausea and vomiting. Middle Chest Pain Score (Numeric/FACES): 2 - Related Data Allergies Allergy/AdvReac Type Severity Reaction Status Date / Time No Known Allergies Allergy Verified 06/06/17 21:13 Home Meds: Home Meds Insulin Pump/Infus. Set/Meter [Accu-Chek Combo System] 0 unit SQ ASDIRECTED [History] Insulin Aspart [Novolog Flexpen] 0 unit SQ ASDIRECTED PRN #1 04/24/17 [Rx] Insulin Detemir [Levemir Flextouch] 20 unit SQ BEDTIME 06/06/17 [History] Insulin Detemir [Levemir] 15 unit SUBCUT BEDTIME 06/06/17 [History] Past Medical History Cardiovascular History: Reports: Hypertension Gastrointestinal History: Reports: Other (See Below) Other Gastrointestinal History: patient has had liver biopsy Musculoskeletal History: Reports: Fracture Other Musculoskeletal History: "boxer fracture" - fifth knuckle fracture November 2016 Neurological History: Reports: Head Trauma Psychiatric History: Reports: Depression Endocrine/Metabolic History: Reports: Diabetes, Type I Other Endocrine/Metabolic History: Diabetic ketoacidosis. Insulin pump - Infectious Disease History Infectious Disease History: Reports: None - Past Surgical History Cardiovascular Surgical History: Reports: None Social & Family History - Family History Family Medical History: Noncontributory Cardiac: Reports: [place] - Tobacco Use Smoking Status *Q: Former Smoker Years of Tobacco use: 7 Packs/Tins Daily: 0.5 Used Tobacco, but Quit: Yes Month Tobacco Last Used: 2015 Second Hand Smoke Exposure: No - Caffeine Use Caffeine Use: Reports: Soda Other Caffeine Use: 1-2 cups - Recreational Drug Use Recreational Drug Use: No Recreational Drug Type: Reports: Marijuana/Hashish Recreational Drug Use Frequency: Not Used In Over 6 Months - Living Situation & Occupation Living situation: Reports: Single, with Significant Other Occupation: Unemployed ED ROS GENERAL - Review of Systems Review Of Systems: See Below Constitutional: Reports: No Symptoms HEENT: Reports: No Symptoms Respiratory: Reports: No Symptoms Cardiovascular: Reports: No Symptoms Endocrine: Reports: No Symptoms GI/Abdominal: Reports: Nausea, Vomiting. Denies: Abdominal Pain : Reports: No Symptoms Neurological: Reports: No Symptoms Psychiatric: Reports: No Symptoms ED EXAM GENERAL NO PERIP PULSE - Physical Exam Exam: See Below Exam Limited By: No Limitations General Appearance: Alert, No Apparent Distress, Other (He smells ketotic) Eye Exam: Bilateral Eye: Normal Inspection Ears: Normal External Exam, Normal Canal, Normal TMs Nose: Normal Inspection, Normal Mucosa, No Blood Throat/Mouth: Normal Inspection, Normal Oropharynx, No Airway Compromise, Other (Somewhat dry mucosa) Neck: Normal Inspection, Supple, Non-Tender, Full Range of Motion. No: Lymphadenopathy (L), Lymphadenopathy (R) Respiratory/Chest: No Respiratory Distress, Lungs Clear, Normal Breath Sounds Cardiovascular: Regular Rate, Rhythm, No Edema, No Murmur, Tachycardia GI/Abdominal: Normal Bowel Sounds, Soft, Non-Tender Back Exam: Normal Inspection. No: CVA Tenderness (L), CVA Tenderness (R) Extremities: Normal Inspection, No Pedal Edema Neurological: Alert, Oriented, Normal Cognition Course - Vital Signs Last Recorded V/S: Last Vital Signs Temp 36.2 C 06/06/17 21:15 Pulse 140 H 06/06/17 21:15 Resp 18 06/06/17 21:15 BP 150/100 H 06/06/17 21:15 Pulse Ox 100 06/06/17 21:15 - Orders/Labs/Meds Orders: Active Orders 24 hr Category Date Time Status Blood Glucose Check, Bedside [RC] ONETIME Care 06/06/17 21:19 Active EKG Documentation Completion [RC] STAT Care 06/06/17 21:28 Active Chest 1V Frontal [CR] Stat Exams 06/06/17 21:28 Taken COMPREHENSIVE METABOLIC PN,CMP [CHEM] Stat Lab 06/06/17 21:23 Results KETONES,BLOOD [CHEM] Stat Lab 06/06/17 21:23 Received LACTIC ACID [CHEM] Stat Lab 06/06/17 21:47 Received TROPONIN I [CHEM] Stat Lab 06/06/17 21:23 Results URINALYSIS W/MICROSCOPIC [UA W/MICROSCOPIC] [URIN] Stat Lab 06/06/17 21:28 Uncollected Lactated Ringers [Ringers, Lactated] 1,000 ml Med 06/06/17 21:40 Active IV .BOLUS Sodium Chloride 0.9% [Normal Saline] 1,000 ml Med 06/06/17 21:27 Active IV ONETIME Medication Orders Sodium Chloride (Normal Saline) 1,000 mls @ 999 mls/hr IV ONETIME ONE Stop: 06/06/17 22:27 Last Admin: 06/06/17 21:27 Dose: 999 mls/hr Lactated Ringer's (Ringers, Lactated) 1,000 mls @ 999 mls/hr IV .BOLUS ONE Stop: 06/06/17 22:40 Labs: Laboratory Tests 06/06/17 06/06/17 06/06/17 Range/Units 21:23 21:23 21:35 WBC 7.59 (4.23-9.07) K/mm3 RBC 4.98 (4.63-6.08) M/mm3 Hgb 15.0 (13.7-17.5) gm/L Hct 41.1 (40.1-51.0) % MCV 82.5 (79.0-92.2) fl MCH 30.1 (25.7-32.2) pg MCHC 36.5 H (32.2-35.5) g/dl RDW Std Deviation 40.9 (35.1-43.9) fL Plt Count 341 H (163-337) K/mm3 MPV 9.9 (9.4-12.3) fl Neutrophils % (Manual) 70 H (40-60) % Band Neutrophils % 0 (0-10) % Lymphocytes % (Manual) 26 (20-40) % Atypical Lymphs % 0 % Monocytes % (Manual) 3 (2-10) % Eosinophils % (Manual) 0 L (0.8-7.0) % Basophils % (Manual) 1 (0.2-1.2) Platelet Estimate Adequate Poikilocytosis 1+ slight Tear Drop Cells 1+ slight [place] Cells Few RBC Morph Comment Not Reportable Puncture Site Rt radial ABG pH 7.24 L (7.35-7.45) ABG pCO2 13.3 L* (35.0-45.0) mmHg ABG pO2 119.0 H (80.0-100.0) mmHg ABG HCO3 5.5 L (22.0-26.0) meq/L ABG O2 Saturation 99.1 H (96.0-97.0) % ABG Base Excess -20.9 L (-2-2.0) Carson Test Positive FiO2 21.00 (21.00-100.00) % Sodium 131 L (136-145) mEq/L Potassium 4.8 (3.5-5.1) mEq/L Chloride 89 L (98-107) mEq/L Carbon Dioxide 12 L (21-32) mEq/L Anion Gap 34.8 H (5-15) BUN 21 H (7-18) mg/dL Creatinine 1.5 H (0.7-1.3) mg/dL Est Cr Clr Drug Dosing 70.89 mL/min Estimated GFR (MDRD) 60 (>60) mL/min BUN/Creatinine Ratio 14.0 (14-18) Calcium 9.5 (8.5-10.1) mg/dL Total Bilirubin 1.4 H (0.2-1.0) mg/dL AST 60 H (15-37) U/L ALT 60 (16-63) U/L Alkaline Phosphatase 101 (46-116) U/L Troponin I < 0.017 (0.00-0.056) ng/mL Total Protein 8.7 H (6.4-8.2) g/dl Albumin 4.6 (3.4-5.0) g/dl Globulin 4.1 gm/dL Albumin/Globulin Ratio 1.1 (1-2) Meds: Medications Generic Name Dose Route Start Last Admin Trade Name Freq PRN Reason Stop Dose Admin Sodium Chloride 1,000 mls @ 999 mls/hr 06/06/17 21:27 06/06/17 21:27 Normal Saline IV 06/06/17 22:27 999 mls/hr ONETIME ONE Administration Lactated Ringer's 1,000 mls @ 999 mls/hr 06/06/17 21:40 Ringers, Lactated IV 06/06/17 22:40 .BOLUS ONE Discontinued Medications Generic Name Dose Route Start Last Admin Trade Name Wendi PRN Reason Stop Dose Admin Sodium Chloride 1,000 mls @ 999 mls/hr 06/06/17 21:32 Normal Saline IV 06/06/17 22:32 ONETIME ONE Insulin Human Regular 7 unit 06/06/17 21:39 06/06/17 21:56 Humulin R IV 06/06/17 21:40 7 unit ONETIME ONE Administration Protocol Ondansetron HCl 4 mg 06/06/17 21:27 06/06/17 21:31 Zofran IVPUSH 06/06/17 21:28 4 mg ONETIME ONE Administration - Re-Assessments/Exams Free Text/Narrative Re-Assessment/Exam: 06/06/17 21:[address] Light early on he advises giving LR rather than evidence at this point this will be changed over after this current bag of fluid. He'll be given 7 units regular IV insulin await labs overall [place] looks much better than the last couple of times had seen him respirations nonlabored. 06/06/17 22:18 Labs coming in at this point Dr. Light will assume care patient will be admitted. Departure - Departure Time of Disposition: 22:18 Disposition: Admitted As Inpatient 68 Clinical Impression: Diabetic ketoacidosis - Discharge Information Referrals: Jae Galicia MD [Primary Care Provider] - Forms: ED Department Discharge - My Orders Last 24 Hours: My Active Orders 06/06/17 21:19 Blood Glucose Check, Bedside [RC] ONETIME 06/06/17 21:23 COMPREHENSIVE METABOLIC PN,CMP [CHEM] Stat KETONES,BLOOD [CHEM] Stat TROPONIN I [CHEM] Stat 06/06/17 21:27 Sodium Chloride 0.9% [Normal Saline] 1,000 ml IV ONETIME 06/06/17 21:28 EKG Documentation Completion [RC] STAT Chest 1V Frontal [CR] Stat URINALYSIS W/MICROSCOPIC [UA W/MICROSCOPIC] [URIN] Stat 06/06/17 21:40 Lactated Ringers [Ringers, Lactated] 1,000 ml IV .BOLUS 06/06/17 21:47 LACTIC ACID [CHEM] Stat - Assessment/Plan Last 24 Hours: My Active Orders 06/06/17 21:19 Blood Glucose Check, Bedside [RC] ONETIME 06/06/17 21:23 COMPREHENSIVE METABOLIC PN,CMP [CHEM] Stat KETONES,BLOOD [CHEM] Stat TROPONIN I [CHEM] Stat 06/06/17 21:27 Sodium Chloride 0.9% [Normal Saline] 1,000 ml IV ONETIME 06/06/17 21:28 EKG Documentation Completion [RC] STAT Chest 1V Frontal [CR] Stat URINALYSIS W/MICROSCOPIC [UA W/MICROSCOPIC] [URIN] Stat 06/06/17 21:40 Lactated Ringers [Ringers, Lactated] 1,000 ml IV .BOLUS 06/06/17 21:47 LACTIC ACID [CHEM] Stat
[2017-06-06] MEDS ORDERED: Sodium Chloride 0.9% 1,000 ML IV ONE ×2 (21:27→21:32)
[2017-06-06] MEDS ORDERED: Ondansetron 4 MG/2 ML SDV IVPUSH ONE (21:27)
[2017-06-06] MEDS ORDERED: Insulin Regular, Human 100 Units/ML 3 ML Vial IV ONE (21:39)
[2017-06-06] MEDS ORDERED: Lactated Ringers 1,000 ML IV ONE (21:40)
--- NOTE | 2017-06-06 22:13 | PCM.HP ---
H&P History of Present Illness - General Date of Service: 06/06/17 Admit Problem/Dx: Diabetic Ketoacidosis Source of Information: Patient, Old Records, Provider, RN Notes Reviewed History Limitations: Reports: No Limitations - History of Present Illness Initial Comments - Free Text/Narative: This is a 22 yo young white male who is very known to me from previous admissions, comes in with complaints of nausea with vomiting and was found in DKA with a ketone level of 11.5. Patient carries a hx/o longstanding DM1 on insulin pump. Again, he ran out of his supplies just like on his most recent admission here to us in April of this year. His noted BS at home was 575. His initial workup in emergency department shows a CBC that is fairly remarkable for platelet of 341, neutrophils of 70%. His ABG shows pH of 7.24, PCO2 of 13.3, PO2 of 119, bicarbonate of 5.5, O2 sat of 99.1% with FiO2 of 21%. His chemistry is remarkable for sodium of 131, chloride of 89, bicarbonate of 12 , anion gap of 34.8, BUN of 21, creatinine of 1.5, serum glucose of 758, lactic acid of 2.8, total bilirubin of 1.4, AST of 60, and total protein of 8.7. His UA shows 2+ glucose and 3+ ketones. His ketone level is 11.51. Patient is being admitted for medical management of diabetes ketoacidosis. Middle Chest Pain Score (Numeric/FACES): 2 - Related Data Allergies/Adverse Reactions: Allergies Allergy/AdvReac Type Severity Reaction Status Date / Time No Known Allergies Allergy Verified 06/06/17 21:13 Home Medications: Home Meds Insulin Pump/Infus. Set/Meter [Accu-Chek Combo System] 0 unit SQ ASDIRECTED [History] Insulin Aspart [Novolog Flexpen] 0 unit SQ ASDIRECTED PRN #1 04/24/17 [Rx] Insulin Detemir [Levemir Flextouch] 20 unit SQ BEDTIME 06/06/17 [History] Insulin Detemir [Levemir] 15 unit SUBCUT QAM 06/06/17 [History] Past Medical History Cardiovascular History: Reports: Hypertension Gastrointestinal History: Reports: Other (See Below) Other Gastrointestinal History: patient has had liver biopsy Musculoskeletal History: Reports: Fracture Other Musculoskeletal History: "boxer fracture" - fifth knuckle fracture November 2016 Neurological History: Reports: Head Trauma Psychiatric History: Reports: Depression Endocrine/Metabolic History: Reports: Diabetes, Type I Other Endocrine/Metabolic History: Diabetic ketoacidosis. Insulin pump - Infectious Disease History Infectious Disease History: Reports: None - Past Surgical History Cardiovascular Surgical History: Reports: None Social & Family History - Family History Family Medical History: Noncontributory Cardiac: Reports: [place] - Tobacco Use Smoking Status *Q: Former Smoker Years of Tobacco use: 7 Packs/Tins Daily: 0.5 Used Tobacco, but Quit: Yes Month Tobacco Last Used: 2015 Second Hand Smoke Exposure: No - Caffeine Use Caffeine Use: Reports: Soda Other Caffeine Use: 1-2 cups - Recreational Drug Use Recreational Drug Use: No Recreational Drug Type: Reports: Marijuana/Hashish Recreational Drug Use Frequency: Not Used In Over 6 Months - Living Situation & Occupation Living situation: Reports: Single, with Significant Other Occupation: Unemployed H&P Review of Systems - Review of Systems: Review Of Systems: See Below General: Reports: Other (hyperglycemia). Denies: Fever, Chills, Malaise, Weakness, Fatigue HEENT: Reports: No Symptoms Pulmonary: Denies: Shortness of Breath Cardiovascular: Denies: Chest Pain Gastrointestinal: Reports: Nausea, Vomiting. Denies: Abdominal Pain Genitourinary: Reports: Frequency Musculoskeletal: Reports: No Symptoms Skin: Reports: No Symptoms Psychiatric: Denies: Depression, Anxiety, Agitation, Hallucinations, Suicidal Ideation Neurological: Denies: Confusion, Difficulty Walking, Weakness, Gait Disturbance Hematologic/Lymphatic: Denies: No Symptoms Immunologic: Denies: No Symptoms Exam - Exam Exam: See Below - Vital Signs Vital Signs: Last Vital Signs Temp 36.2 C 06/06/17 21:15 Pulse 140 H 06/06/17 21:15 Resp 18 06/06/17 21:15 BP 150/100 H 06/06/17 21:15 Pulse Ox 100 06/06/17 21:15 Weight: 68.946 kg - Exam General: Alert, Oriented, Cooperative, Mild Distress, Other (fruity smell) HEENT: Conjunctiva Clear, EACs Clear, EOMI, Hearing Intact, Nares Patent, Normal Nasal Septum, Posterior Pharynx Clear, Pupils Equal, Pupils Reactive, TMs Clear. No: Mucosa Moist & [place] Neck: Supple, Trachea Midline, +2 Carotid Pulse wo Bruit Lungs: Clear to Auscultation. No: Normal Respiratory Effort Cardiovascular: Regular Rhythm, Tachycardia GI/Abdominal Exam: Normal Bowel Sounds, Soft, Non-Tender, No Organomegaly, No Distention, No Abnormal Bruit (Male) Exam: Deferred Rectal (Males) Exam: Deferred Back Exam: Normal Inspection, Full Range of Motion Extremities: Normal Inspection, Normal Range of Motion, Non-Tender, No Pedal Edema, Normal Capillary Refill Peripheral Pulses: 3+: Posterior Tibial (L), Posterior Tibial (R), Dorsalis Pedis (L), Dorsalis Pedis (R) Skin: Warm, Dry, Intact Neuro Extensive - Mental Status: Oriented x3, Normal Cognition, Memory Intact Neuro Extensive - Motor, Sensory, Reflexes: CN II-XII Intact, Normal Gait Psychiatric: Alert, Normal Mood, Anxious - Patient Data Lab Results Last 24 hrs: Laboratory Results - last 24 hr 06/06/17 06/06/17 06/06/17 Range/Units 21:23 21:23 21:35 WBC 7.59 (4.23-9.07) K/mm3 RBC 4.98 (4.63-6.08) M/mm3 Hgb 15.0 (13.7-17.5) gm/L Hct 41.1 (40.1-51.0) % MCV 82.5 (79.0-92.2) fl MCH 30.1 (25.7-32.2) pg MCHC 36.5 H (32.2-35.5) g/dl RDW Std Deviation 40.9 (35.1-43.9) fL Plt Count 341 H (163-337) K/mm3 MPV 9.9 (9.4-12.3) fl Neutrophils % (Manual) 70 H (40-60) % Band Neutrophils % 0 (0-10) % Lymphocytes % (Manual) 26 (20-40) % Atypical Lymphs % 0 % Monocytes % (Manual) 3 (2-10) % Eosinophils % (Manual) 0 L (0.8-7.0) % Basophils % (Manual) 1 (0.2-1.2) Platelet Estimate Adequate Poikilocytosis 1+ slight Tear Drop Cells 1+ slight Rebecca Cells Few RBC Morph Comment Not Reportable Puncture Site Rt radial ABG pH 7.24 L (7.35-7.45) ABG pCO2 13.3 L* (35.0-45.0) mmHg ABG pO2 119.0 H (80.0-100.0) mmHg ABG HCO3 5.5 L (22.0-26.0) meq/L ABG O2 Saturation 99.1 H (96.0-97.0) % ABG Base Excess -20.9 L (-2-2.0) Carson Test Positive FiO2 21.00 (21.00-100.00) % Sodium 131 L (136-145) mEq/L Potassium 4.8 (3.5-5.1) mEq/L Chloride 89 L (98-107) mEq/L Carbon Dioxide 12 L (21-32) mEq/L Anion Gap 34.8 H (5-15) BUN 21 H (7-18) mg/dL Creatinine 1.5 H (0.7-1.3) mg/dL Est Cr Clr Drug Dosing 70.89 mL/min Estimated GFR (MDRD) 60 (>60) mL/min BUN/Creatinine Ratio 14.0 (14-18) Calcium 9.5 (8.5-10.1) mg/dL Total Bilirubin 1.4 H (0.2-1.0) mg/dL AST 60 H (15-37) U/L ALT 60 (16-63) U/L Alkaline Phosphatase 101 (46-116) U/L Troponin I < 0.017 (0.00-0.056) ng/mL Total Protein 8.7 H (6.4-8.2) g/dl Albumin 4.6 (3.4-5.0) g/dl Globulin 4.1 gm/dL Albumin/Globulin Ratio 1.1 (1-2) Result Diagrams: 06/07/17 05:30 06/07/17 05:30 *Q Meaningful Use (ADM) - VTE *Q VTE Criteria *Q: - Stroke *Q Stroke Criteria *Q: - AMI *Q AMI Criteria *Q: Problem List Initiated/Reviewed/Updated: Yes Orders Last 24hrs: Active Orders 24 hr Category Date Time Status Blood Glucose Check, Bedside [RC] ONETIME Care 06/06/17 21:19 Active EKG Documentation Completion [RC] STAT Care 09/16/17 21:28 Active Chest 1V Frontal [CR] Stat Exams 06/06/17 21:28 Taken COMPREHENSIVE METABOLIC PN,CMP [CHEM] Stat Lab 06/06/17 21:23 Results KETONES,BLOOD [CHEM] Stat Lab 06/06/17 21:23 Received LACTIC ACID [CHEM] Stat Lab 06/06/17 21:47 Received TROPONIN I [CHEM] Stat Lab 06/06/17 21:23 Results URINALYSIS W/MICROSCOPIC [UA W/MICROSCOPIC] [URIN] Stat Lab 06/06/17 21:28 Uncollected Lactated Ringers [Ringers, Lactated] 1,000 ml Med 06/06/17 21:40 Active IV .BOLUS Sodium Chloride 0.9% [Normal Saline] 1,000 ml Med 06/06/17 21:27 Active IV ONETIME Medication Orders Sodium Chloride (Normal Saline) 1,000 mls @ 999 mls/hr IV ONETIME ONE Stop: 06/06/17 22:27 Last Admin: 06/06/17 21:27 Dose: 999 mls/hr Lactated Ringer's (Ringers, Lactated) 1,000 mls @ 999 mls/hr IV .BOLUS ONE Stop: 06/06/17 22:40 Assessment/Plan Comment:: Assessment/Plan: Acute: Moderate-Severe Diabetic Ketoacidosis - Ketones 11.5 - Serum Glucose of 750 - 2/2 Medical Non-Compliance - DKA procotol - Aggressive IV hydration - NPO until AG or Bicarb resolves - Diabetic Education DM1 - On Insulin Pump-not working - Currently using insulin pen - A1C check - ADA diet once po AG-MA - 2/2 DKA - LA 2.8 - No need for Bicarb - Aggressive Volume Resuscitation Medical Non-Compliance Chronic: Chronic Transaminitis Hx/o Nicotine Dependence Plan: Admit to ICU Insulin drip per protocol Serial BMP until AG resolved then daily Lantus/Levemir 15 units subQ HS and 20 units SubQ AM once off insulin drip Accu-check QID/HS and ISS PRN once off drip Routine AM labs Diabetic/Nursing Education SW/CM for d/c planning Code status:1
[2017-06-06] MEDS ORDERED: Promethazine 12.5 MG in Sodium Chloride 0.9% 50 ML IV PRN (22:17)
[2017-06-06] MEDS ORDERED: Ondansetron 4 MG/2 ML SDV IV PRN (22:17)
[2017-06-06] MEDS ORDERED: Bisacodyl 5 MG Tab PO PRN (22:17)
[2017-06-06] MEDS ORDERED: Acetaminophen 325 MG Tab PO PRN (22:17)
[2017-06-06] MEDS ORDERED: LORazepam 2 MG/ML MDV IV PRN (22:17)
[2017-06-06] MEDS ORDERED: HYDROmorphone 1 MG/ML Syringe IVPUSH PRN (22:17)
[2017-06-06] MEDS ORDERED: Acetaminophen/HYDROcodone 325-5 MG Tab PO PRN (22:17)
[2017-06-06] MEDS ORDERED: Docusate Sodium 100 MG Cap PO PRN (22:17)
[2017-06-06] MEDS ORDERED: Polyethylene Glycol 3350 Powder 17 GM Packet PO PRN (22:17)
[2017-06-06] MEDS ORDERED: Albuterol/Ipratropium 3.0-0.5 MG/3 ML Neb Soln NEB PRN (22:17)
[2017-06-06] MEDS ORDERED: Metoprolol Tartrate 5 MG/5 ML SDV IVPUSH PRN (22:29)
[2017-06-06] MEDS ORDERED: hydrALAZINE 20 MG/ML SDV IVPUSH PRN (22:29)
[2017-06-06] MEDS ORDERED: LORazepam 2 MG/ML MDV IVPUSH PRN (22:29)
[2017-06-06] MEDS ORDERED: Lactated Ringers 1,000 ML IV SCH (22:30)
[2017-06-06] MEDS ORDERED: 50% Dextrose in Water 50 ML Syringe IVPUSH PRN (22:31)
[2017-06-06] MEDS ORDERED: Potassium Chloride 20 MEQ Tab.ER PO ONE (22:45)
[2017-06-06] MEDS ORDERED: Sodium Chloride 0.9% 100 ML ONE (23:16)
[2017-06-07] MEDS ORDERED: Sodium Chloride 0.9% 1,000 ML IV SCH (00:45)
[2017-06-07] MEDS: Dextrose 5% in Water 1,000 ML IV SCH ×2 (01:45→08:40)
[2017-06-07] MEDS ORDERED: Insulin Aspart 100 Units/ML 3 ML Pen SUBCUT PRN (07:36)
--- NOTE | 2017-06-07 07:36 | PCM.PN ---
- General Info Date of Service: 06/07/17 Admission Dx/Problem (Free Text): Diabetic Ketoacidosis Subjective Update: Follow Up Functional Status: Reports: Pain Controlled, Ambulating, Urinating. Denies: Tolerating Diet, New Symptoms - Review of Systems General: Denies: Fever, Weakness, Fatigue, Malaise, Chills HEENT: Reports: No Symptoms Pulmonary: Denies: Shortness of Breath Cardiovascular: Denies: Chest Pain Gastrointestinal: Denies: Abdominal Pain, Nausea, Vomiting Genitourinary: Reports: No Symptoms Musculoskeletal: Reports: No Symptoms Skin: Denies: Cyanosis, Pallor Neurological: Denies: Confusion, Dizziness, Seizure, Difficulty Walking, Weakness, Gait Disturbance Psychiatric: Denies: Depression, Mood Lability, Anxiety, Agitation, Hallucinations Systems Review Comment:: No overnight or acute issues. He is slowly responding to treatment. Neither his AG or Bicarb resolved. He has no new complaints. - Patient Data Vitals - Most Recent: Last Vital Signs Temp 36.6 C 06/07/17 04:00 Pulse 93 06/07/17 04:01 Resp 20 06/07/17 04:01 BP 125/75 06/07/17 04:00 Pulse Ox 100 06/07/17 04:01 Weight - Most Recent: 65.589 kg I&O - Last 24 Hours: Intake & Output 06/06/17 06/07/17 06/07/17 22:59 06:59 14:59 Intake Total 3300 Output Total 1450 Balance 1850 Lab Results Last 24 Hours: Laboratory Results - last 24 hr 06/06/17 06/07/17 06/07/17 Range/Units 23:20 00:32 01:34 WBC (4.23-9.07) K/mm3 RBC (4.63-6.08) M/mm3 Hgb (13.7-17.5) gm/L Hct (40.1-51.0) % MCV (79.0-92.2) fl MCH (25.7-32.2) pg MCHC (32.2-35.5) g/dl RDW Std Deviation (35.1-43.9) fL Plt Count (163-337) K/mm3 MPV (9.4-12.3) fl Neut % (Auto) (34.0-67.9) % Lymph % (Auto) (21.8-53.1) % [place] % (Auto) (5.3-12.2) % Eos % (Auto) (0.8-7.0) Baso % (Auto) (0.1-1.2) % Neut # (Auto) (1.78-5.38) K/mm3 Lymph # (Auto) (1.32-3.57) K/mm3 [place] # (Auto) (0.30-0.82) K/mm3 Eos # (Auto) (0.04-0.54) K/mm3 Baso # (Auto) (0.01-0.08) K/mm3 Manual Slide Review Sodium 136 (136-145) mEq/L Potassium 4.3 (3.5-5.1) mEq/L Chloride 97 L (98-107) mEq/L Carbon Dioxide 12 L (21-32) mEq/L Anion Gap 31.3 H (5-15) BUN 20 H (7-18) mg/dL Creatinine 1.4 H (0.7-1.3) mg/dL Est Cr Clr Drug Dosing 75.95 mL/min Estimated GFR (MDRD) > 60 (>60) mL/min BUN/Creatinine Ratio 14.3 (14-18) Glucose 570 H* (74-106) mg/dL POC Glucose 231 H 158 H (70-105) mg/dL Calcium 8.4 L (8.5-10.1) mg/dL Magnesium (1.8-2.4) mg/dl 06/07/17 06/07/17 06/07/17 Range/Units 02:31 03:33 03:35 WBC (4.23-9.07) K/mm3 RBC (4.63-6.08) M/mm3 Hgb (13.7-17.5) gm/L Hct (40.1-51.0) % MCV (79.0-92.2) fl MCH (25.7-32.2) pg MCHC (32.2-35.5) g/dl RDW Std Deviation (35.1-43.9) fL Plt Count (163-337) K/mm3 MPV (9.4-12.3) fl Neut % (Auto) (34.0-67.9) % Lymph % (Auto) (21.8-53.1) % [place] % (Auto) (5.3-12.2) % Eos % (Auto) (0.8-7.0) Baso % (Auto) (0.1-1.2) % Neut # (Auto) (1.78-5.38) K/mm3 Lymph # (Auto) (1.32-3.57) K/mm3 [place] # (Auto) (0.30-0.82) K/mm3 Eos # (Auto) (0.04-0.54) K/mm3 Baso # (Auto) (0.01-0.08) K/mm3 Manual Slide Review Sodium 136 (136-145) mEq/L Potassium 4.0 (3.5-5.1) mEq/L Chloride 102 (98-107) mEq/L Carbon Dioxide 13 L (21-32) mEq/L Anion Gap 25.0 H (5-15) BUN 13 (7-18) mg/dL Creatinine 1.1 (0.7-1.3) mg/dL Est Cr Clr Drug Dosing 96.67 mL/min Estimated GFR (MDRD) > 60 (>60) mL/min BUN/Creatinine Ratio 11.8 L (14-18) Glucose 314 H (74-106) mg/dL POC Glucose 253 H 241 H (70-105) mg/dL Calcium 7.8 L (8.5-10.1) mg/dL Magnesium (1.8-2.4) mg/dl 06/07/17 06/07/17 06/07/17 Range/Units 04:33 05:30 05:30 WBC 9.26 H (4.23-9.07) K/mm3 RBC 3.68 L (4.63-6.08) M/mm3 Hgb 11.2 L (13.7-17.5) gm/L Hct 31.8 L (40.1-51.0) % MCV 86.4 (79.0-92.2) fl MCH 30.4 (25.7-32.2) pg MCHC 35.2 (32.2-35.5) g/dl RDW Std Deviation 40.1 (35.1-43.9) fL Plt Count 220 (163-337) K/mm3 MPV 9.3 L (9.4-12.3) fl Neut % (Auto) 47.4 (34.0-67.9) % Lymph % (Auto) 42.4 (21.8-53.1) % [place] % (Auto) 9.3 (5.3-12.2) % Eos % (Auto) 0.2 L (0.8-7.0) Baso % (Auto) 0.3 (0.1-1.2) % Neut # (Auto) 4.38 (1.78-5.38) K/mm3 Lymph # (Auto) 3.93 H (1.32-3.57) K/mm3 [place] # (Auto) 0.86 H (0.30-0.82) K/mm3 Eos # (Auto) 0.02 L (0.04-0.54) K/mm3 Baso # (Auto) 0.03 (0.01-0.08) K/mm3 Manual Slide Review Normal smear Sodium 137 (136-145) mEq/L Potassium 3.4 L (3.5-5.1) mEq/L Chloride 103 (98-107) mEq/L Carbon Dioxide 15 L (21-32) mEq/L Anion Gap 22.4 H (5-15) BUN 11 (7-18) mg/dL Creatinine 1.3 (0.7-1.3) mg/dL Est Cr Clr Drug Dosing 81.79 mL/min Estimated GFR (MDRD) > 60 (>60) mL/min BUN/Creatinine Ratio 8.5 L (14-18) Glucose 153 H (74-106) mg/dL POC Glucose 186 H (70-105) mg/dL Calcium 7.9 L (8.5-10.1) mg/dL Magnesium 1.4 L (1.8-2.4) mg/dl 06/07/17 06/07/17 06/07/17 Range/Units 05:34 06:36 07:15 WBC (4.23-9.07) K/mm3 RBC (4.63-6.08) M/mm3 Hgb (13.7-17.5) gm/L Hct (40.1-51.0) % MCV (79.0-92.2) fl MCH (25.7-32.2) pg MCHC (32.2-35.5) g/dl RDW Std Deviation (35.1-43.9) fL Plt Count (163-337) K/mm3 MPV (9.4-12.3) fl Neut % (Auto) (34.0-67.9) % Lymph % (Auto) (21.8-53.1) % [place] % (Auto) (5.3-12.2) % Eos % (Auto) (0.8-7.0) Baso % (Auto) (0.1-1.2) % Neut # (Auto) (1.78-5.38) K/mm3 Lymph # (Auto) (1.32-3.57) K/mm3 [place] # (Auto) (0.30-0.82) K/mm3 Eos # (Auto) (0.04-0.54) K/mm3 Baso # (Auto) (0.01-0.08) K/mm3 Manual Slide Review Sodium (136-145) mEq/L Potassium (3.5-5.1) mEq/L Chloride (98-107) mEq/L Carbon Dioxide (21-32) mEq/L Anion Gap (5-15) BUN (7-18) mg/dL Creatinine (0.7-1.3) mg/dL Est Cr Clr Drug Dosing mL/min Estimated GFR (MDRD) (>60) mL/min BUN/Creatinine Ratio (14-18) Glucose (74-106) mg/dL POC Glucose 153 H 111 H 99 (70-105) mg/dL Calcium (8.5-10.1) mg/dL Magnesium (1.8-2.4) mg/dl Med Orders - Current: Current Medications Acetaminophen (Tylenol) 650 mg PO Q4H PRN PRN Reason: Pain (Mild 1-3)/fever Hydrocodone Bitart/Acetaminophen ([place] 325-5 Mg) 1 tab PO Q4H PRN PRN Reason: Pain (moderate 4-6) Albuterol/Ipratropium (Duoneb 3.0-0.5 Mg/3 Ml) 3 ml NEB Q4H PRN PRN Reason: Shortness Of Breath/wheezing Bisacodyl (Dulcolax) 5 mg PO DAILY PRN PRN Reason: Constipation Dextrose/Water (Dextrose 50% In Water) 50 ml IVPUSH ASDIRECTED PRN PRN Reason: Hypoglycemia Docusate Sodium (Colace) 100 mg PO BID PRN PRN Reason: Constipation Hydralazine HCl (Apresoline) 20 mg IVPUSH Q4H PRN PRN Reason: Hypertension Hydromorphone HCl (Dilaudid) 0.25 mg IVPUSH Q2H PRN PRN Reason: Pain (severe 7-10) Promethazine HCl 12.5 mg/ (Sodium Chloride) 50.5 mls @ 100 mls/hr IV Q6H PRN PRN Reason: Nausea/Vomiting Insulin Human Regular 100 unit (/ Sodium Chloride) 100 mls @ 6.9 mls/hr IV TITRATE [facility]; 0.1 UNITS/KG/HR PRN Reason: Protocol Last Titration: 06/07/17 06:43 Dose: 0.07 units/kg/hr, 5.3 mls/hr Sodium Chloride (Normal Saline) 1,000 mls @ 150 mls/hr IV ASDIRECTED [facility] Last Infusion: 06/07/17 00:47 Dose: 999 mls/hr Dextrose/Water (Dextrose 5% In Water) 1,000 mls @ 150 mls/hr IV ASDIRECTED [facility] Last Admin: 06/07/17 01:45 Dose: 150 mls/hr Insulin Detemir (Levemir) 15 unit SUBCUT BEDTIME [facility] Lorazepam (Ativan) 2 mg IVPUSH Q4H PRN PRN Reason: Seizures Lorazepam (Ativan) 1 mg IV Q6H PRN PRN Reason: Anxiety Magnesium Sulfate (Pharmacy To Dose - Magnesium Replacement) 1 dose .XX ASDIRECTED [facility] Metoprolol Tartrate (Lopressor) 5 mg IVPUSH Q4H PRN PRN Reason: Tachycardia Ondansetron HCl (Zofran) 4 mg IV Q6H PRN PRN Reason: Nausea/Vomiting Polyethylene Glycol (Miralax) 17 gm PO DAILY PRN PRN Reason: Constipation Potassium Chloride (Pharmacy To Dose - Potassium Replacement) 1 dose .XX ASDIRECTED [facility] Senna/Docusate Sodium (Senna Plus) 1 tab PO BID PRN PRN Reason: Constipation Discontinued Medications Sodium Chloride (Normal Saline) 1,000 mls @ 999 mls/hr IV ONETIME ONE Stop: 06/06/17 22:27 Last Admin: 06/06/17 21:27 Dose: 999 mls/hr Sodium Chloride (Normal Saline) 1,000 mls @ 999 mls/hr IV ONETIME ONE Stop: 06/06/17 22:32 Last Admin: 06/06/17 23:00 Dose: Not Given Lactated Ringer's (Ringers, Lactated) 1,000 mls @ 999 mls/hr IV .BOLUS ONE Stop: 06/06/17 22:40 Last Admin: 06/06/17 22:34 Dose: 999 mls/hr Lactated Ringer's (Ringers, Lactated) 1,000 mls @ 999 mls/hr IV ASDIRECTED [facility] Last Admin: 06/06/17 23:38 Dose: 999 mls/hr Sodium Chloride (Normal Saline) Confirm Administered Dose 100 mls @ as directed .ROUTE .STK-MED ONE Stop: 06/06/17 23:17 Last Admin: 06/06/17 23:40 Dose: Not Given Insulin Human Regular (Humulin R) 7 unit IV ONETIME ONE PRN Reason: Protocol Stop: 06/06/17 21:40 Last Admin: 06/06/17 21:56 Dose: 7 unit Ondansetron HCl (Zofran) 4 mg IVPUSH ONETIME ONE Stop: 06/06/17 21:28 Last Admin: 06/06/17 21:31 Dose: 4 mg Potassium Chloride (Klor-Con M20) 20 meq PO ONETIME ONE Stop: 06/06/17 22:46 Last Admin: 06/06/17 23:21 Dose: 20 meq - Exam General: Alert, Oriented, Cooperative, No Acute Distress HEENT: Pupils Equal, Pupils Reactive, EOMI, Mucous Membr. Moist/[place] Neck: Supple, Trachea Midline, No JVD Lungs: Clear to Auscultation, Normal Respiratory Effort Cardiovascular: Regular Rate, Regular Rhythm GI/Abdominal Exam: Normal Bowel Sounds, Soft, Non-Tender, No Organomegaly, No Distention, No Abnormal Bruit, No Mass (Male) Exam: Deferred Back Exam: Normal Inspection, Full Range of Motion Extremities: Normal Inspection, Normal Range of Motion, Non-Tender, No Pedal Edema, Normal Capillary Refill Peripheral Pulses: 3+: Posterior Tibial (L), Posterior Tibial (R), Dorsalis Pedis (L), Dorsalis Pedis (R) Skin: Warm, Dry, Intact Neurological: No New Focal Deficit Psy/Mental Status: Alert, Normal Affect, Normal Mood - Problem List Review Problem List Initiated/Reviewed/Updated: Yes - My Orders Last 24 Hours: My Active Orders 06/06/17 22:22 RT Aerosol Therapy [RC] ASDIRECTED Consult to Case Management [CONS] Routine Consult to Diabetic Nurse Specialist [CONS] Routine Consult to Flower Grader [CONS] Routine OT Evaluation and Treatment [CONS] Routine PT Evaluation and Treatment [CONS] Routine 06/06/17 22:29 LORazepam [Ativan] 2 mg IVPUSH Q4H PRN Metoprolol Tartrate [Lopressor] 5 mg IVPUSH Q4H PRN hydrALAZINE [Apresoline] 20 mg IVPUSH Q4H PRN 06/06/17 22:30 Magnesium Rep Pharmacy to Dose [Pharmacy to Dose - Magnesium Replacement] 1 dose .XX ASDIRECTED Potassium Rep Pharmacy to Dose [Pharmacy to Dose - Potassium Replacement] 1 dose .XX ASDIRECTED 06/06/17 22:31 Dextrose 50% in Water 50 ml IVPUSH ASDIRECTED PRN 06/06/17 22:45 Insulin Regular, Human [HumuLIN R] 100 unit Sodium Chloride 0.9% [Normal Saline] 99 ml IV TITRATE 06/07/17 00:45 Sodium Chloride 0.9% [Normal Saline] 1,000 ml IV ASDIRECTED 06/07/17 01:00 Dextrose 5% in Water 1,000 ml IV ASDIRECTED 06/07/17 09:30 BASIC METABOLIC PANEL,BMP [CHEM] Routine 06/07/17 21:00 Insulin Detemir [Levemir] 15 unit SUBCUT BEDTIME 06/07/17 Breakfast NPO [Nothing Per Oral Diet] [DIET] 06/08/17 05:11 MAGNESIUM [CHEM] AM 06/09/17 05:11 MAGNESIUM [CHEM] AM 06/10/17 05:11 MAGNESIUM [CHEM] AM - Plan Plan:: Assessment/Plan: Acute: Moderate-Severe Diabetic Ketoacidosis - Ketones 11.5 - Serum Glucose of 750 - 2/2 Medical Non-Compliance - DKA procotol - Aggressive IV hydration - NPO until AG or Bicarb resolves - Diabetic Education DM1 - On Insulin Pump-not working - Currently using insulin pen - A1C is 9.50 - ADA diet once po - Diabetic Education Medical Non-Compliance Resolved: AG-MA - 2/2 DKA - LA 2.8 --> likely back to normal - No need for Bicarb - Aggressive Volume Resuscitation: received total of 4L combined NS/LR Chronic: Chronic Transaminitis Hx/o Nicotine Dependence Plan: He is clinically much better Continue DKA protocol Serial BMP until AG resolved then daily Lantus/Levemir 15 units subQ HS and 20 units SubQ AM once off insulin drip Accu-check QID/HS and ISS PRN once off drip Routine AM labs Diabetic/Nursing Education SW/CM for d/c planning Possible d/c in AM
[2017-06-07] MEDS ORDERED: Potassium Chloride 20 MEQ Tab.ER PO ONE ×2 (07:52→10:30)
[2017-06-07] MEDS ORDERED: Potassium Chloride 10 MEQ in Premix Bag 1 BAG IV SCH (08:00)
[2017-06-07] MEDS ORDERED: Potassium Chloride 20 MEQ Tab.ER PO SCH (08:00)
[2017-06-07] MEDS ORDERED: Magnesium Sulfate/Water 2 GM in Premix Bag 1 BAG IV ONE (08:00)
[2017-06-07] MEDS ORDERED: Insulin Detemir 100 Units/ML 3 ML Pen SUBCUT ONE (10:25)
[2017-06-07] MEDS: Insulin Aspart 100 Units/ML 3 ML Pen SUBCUT SCH ×5 (10:35→22:00)
[2017-06-07] MEDS ORDERED: Insulin Aspart 100 Units/ML 3 ML Pen SUBCUT SCH (11:00)
[2017-06-07] MEDS ORDERED: Insulin Detemir 100 Units/ML 3 ML Pen SUBCUT SCH (21:00)
[2017-06-08] MEDS: Insulin Aspart 100 Units/ML 3 ML Pen SUBCUT SCH ×2 (06:57→12:13)
[2017-06-08] MEDS ORDERED: HYDROmorphone 0.5 MG/0.5 ML Syringe IVPUSH PRN (07:05)
[2017-06-08] MEDS ORDERED: Magnesium Oxide 400 MG Tab PO ONE (08:00)
[2017-06-08] MEDS: Potassium Chloride 20 MEQ Tab.ER PO SCH ×2 (08:01→12:13)
--- NOTE | 2017-06-08 08:38 | CR ---
Chest: Portable view of the chest was obtained. Comparison: Previous chest x-ray of 04/22/17. Heart size and mediastinum are within normal limits. Lungs are clear. Bony structures are grossly intact. Impression: 1. Nothing acute is appreciated on frontal chest x-ray. Diagnostic code #1
[2017-06-08] MEDS ORDERED: Insulin Detemir 100 Units/ML 3 ML Pen SUBCUT SCH (09:00)
[2017-06-08 09:08] VITALS: BP 133/96
--- NOTE | 2017-06-08 14:20 | PCM.DCSUM1 ---
Discharge Summary - Hospital Course Brief History: This is a 22 yo young white male who is very known to me from previous admissions, comes in with complaints of nausea with vomiting and was found in DKA with a ketone level of 11.5. He was admited for medical management. - Discharge Data Discharge Date: 06/08/17 Discharge Disposition: Home, Self-Care 01 Condition: Good - Patient Summary/Data Operative Procedure(s) Performed: None Complications: None Consults: Consultations 06/06/17 22:22 Consult to Case Management [CONS] Routine Consult to Diabetic Nurse Specialist [CONS] Routine Consult to Porcelain Enamel Repairer [CONS] Routine Recommended Follow-up Testing/Procedures: None Hospital Course: Patient was primarily admitted for medical management of diabetic ketoacidosis. He carried a long-standing history of poorly controlled type 1 diabetes. Just like on 2 previous admissions, patient ran out of his insulin supplies. On this admission, he was put on DKA protocol. Slowly, he improved and this regimen. His hospital course was uncomplicated. The rest of his chronic medical illness remained stable during this admission. He is now ready for discharge. He will leave the facility as soon as he meets with flash welder and inpatient dietitian. On the day of discharge, we stressed the importance with him of medical and dietary compliance for his diabetes. He was advised to follow-up with his primary care in 1-2 weeks as needed. And most importantly, we stressed the importance of making sure he has adequate supplies of insulin before he completely runs out. The patient expressed understanding and in agreement with the plans as discussed above. All questions were answered. - Patient Instructions Diet: Usual Diet as Tolerated, Diabetic Diet Activity: As Tolerated Driving: May Drive Today Showering/Bathing: May Shower Notify Provider of: Fever, Nausea and/or Vomiting Other/Special Instructions: - Please take all medications as directed. - Recommend you follow diabetic diet. - Call your pharmacy if you know you will ran out soon with your insulin. - Follow up with your family doctor in 1-2 week - Discharge Plan Home Medications: Home Meds Insulin Pump/Infus. Set/Meter [Accu-Chek Combo System] 0 unit SQ ASDIRECTED [History] Insulin Aspart [Novolog Flexpen] 0 unit SQ ASDIRECTED PRN #1 04/24/17 [Rx] Insulin Detemir [Levemir Flextouch] 20 unit SQ BEDTIME 06/06/17 [History] Insulin Detemir [Levemir] 15 unit SUBCUT QAM 06/06/17 [History] Patient Handouts: Diabetic Ketoacidosis Referrals: Jae Galicia MD [Primary Care Provider] - - Discharge Summary/Plan Comment DC Time >30 min.: Yes (45 mins) Discharge Summary/Plan Comment: Discharge to Home - General Info Date of Service: 06/08/17 Admission Dx/Problem (Free Text: Diabetic Ketoacidosis Subjective Update: Follow Up Functional Status: Reports: Pain Controlled. Denies: Tolerating Diet, Ambulating, Urinating, New Symptoms - Review of Systems General: Denies: Fever, Weakness, Fatigue, Malaise, Chills HEENT: Reports: No Symptoms Pulmonary: Denies: Shortness of Breath, Pleuritic Chest Pain, Wheezing Cardiovascular: Denies: Chest Pain, Palpitations, Dyspnea on Exertion, Lightheadedness Gastrointestinal: Denies: Abdominal Pain, Decreased Appetite, Diarrhea, Difficulty Swallowing, Nausea, Vomiting Genitourinary: Reports: No Symptoms Musculoskeletal: Reports: No Symptoms Skin: Denies: Cyanosis, Pallor, Diaphoresis, Bruising, Pruritis, Rash Neurological: Denies: Confusion, Dizziness, Seizure, Difficulty Walking, Weakness, Gait Disturbance Psychiatric: Denies: Depression, Mood Lability, Anxiety, Agitation, Cravings, Hallucinations, Suicidal Ideation, Homicidal Ideation Systems Review Comment: No overnight or acute issues. He is doing relatively well. He has no new complaints. - Patient Data Vitals - Most Recent: Last Vital Signs Temp 36.4 C 06/08/17 09:00 Pulse 95 06/07/17 19:41 Resp 18 06/08/17 09:00 BP 133/96 H 06/08/17 09:00 Pulse Ox 100 06/08/17 09:00 Weight - Most Recent: 65.862 kg I&O - Last 24 hours: Intake & Output 06/07/17 06/08/17 06/08/17 22:59 06:59 14:59 Intake Total 1640 1200 3360 Output Total 1850 350 Balance -209 852 3455 Lab Results - Last 24 hrs: Laboratory Results - last 24 hr 06/07/17 06/07/17 06/08/17 Range/Units 17:00 20:26 05:10 Sodium (136-145) mEq/L Potassium (3.5-5.1) mEq/L Chloride (98-107) mEq/L Carbon Dioxide (21-32) mEq/L Anion Gap (5-15) BUN (7-18) mg/dL Creatinine (0.7-1.3) mg/dL Est Cr Clr Drug Dosing mL/min Estimated GFR (MDRD) (>60) mL/min BUN/Creatinine Ratio (14-18) Glucose (74-106) mg/dL POC Glucose 251 H 325 H 77 (70-105) mg/dL Calcium (8.5-10.1) mg/dL Magnesium (1.8-2.4) mg/dl 06/08/17 06/08/17 06/08/17 Range/Units 05:43 05:51 11:23 Sodium 137 (136-145) mEq/L Potassium 3.0 L (3.5-5.1) mEq/L Chloride 99 (98-107) mEq/L Carbon Dioxide 27 (21-32) mEq/L Anion Gap 14.0 (5-15) BUN 8 (7-18) mg/dL Creatinine 0.8 (0.7-1.3) mg/dL Est Cr Clr Drug Dosing 132.92 mL/min Estimated GFR (MDRD) > 60 (>60) mL/min BUN/Creatinine Ratio 10.0 L (14-18) Glucose 124 H (74-106) mg/dL POC Glucose 116 H 172 H (70-105) mg/dL Calcium 8.3 L (8.5-10.1) mg/dL Magnesium 1.7 L (1.8-2.4) mg/dl Med Orders - Current: Current Medications Acetaminophen (Tylenol) 650 mg PO Q4H PRN PRN Reason: Pain (Mild 1-3)/fever Hydrocodone Bitart/Acetaminophen ([place] 325-5 Mg) 1 tab PO Q4H PRN PRN Reason: Pain (moderate 4-6) Albuterol/Ipratropium (Duoneb 3.0-0.5 Mg/3 Ml) 3 ml NEB Q4H PRN PRN Reason: Shortness Of Breath/wheezing Bisacodyl (Dulcolax) 5 mg PO DAILY PRN PRN Reason: Constipation Dextrose/Water (Dextrose 50% In Water) 50 ml IVPUSH ASDIRECTED PRN PRN Reason: Hypoglycemia Docusate Sodium (Colace) 100 mg PO BID PRN PRN Reason: Constipation Hydralazine HCl (Apresoline) 20 mg IVPUSH Q4H PRN PRN Reason: Hypertension Hydromorphone HCl (Dilaudid) 0.25 mg IVPUSH Q2H PRN PRN Reason: Pain (severe 7-10) Promethazine HCl 12.5 mg/ (Sodium Chloride) 50.5 mls @ 100 mls/hr IV Q6H PRN PRN Reason: Nausea/Vomiting Insulin Aspart (Novolog) 0 unit SUBCUT QID PRN; Protocol PRN Reason: Blood Glucose Insulin Aspart (Novolog) 0 unit SUBCUT QIDACANDBED [facility] PRN Reason: Protocol Last Admin: 06/08/17 12:13 Dose: 2 units Insulin Detemir (Levemir) 15 unit SUBCUT BEDTIME [facility] Last Admin: 06/07/17 20:30 Dose: 15 units Insulin Detemir (Levemir) 20 unit SUBCUT DAILY [facility] Last Admin: 06/08/17 08:01 Dose: 20 units Lorazepam (Ativan) 2 mg IVPUSH Q4H PRN PRN Reason: Seizures Lorazepam (Ativan) 1 mg IV Q6H PRN PRN Reason: Anxiety Magnesium Sulfate (Pharmacy To Dose - Magnesium Replacement) 0 dose .XX ASDIRECTED PRN PRN Reason: RX TO WATCH MAG LEVELS Metoprolol Tartrate (Lopressor) 5 mg IVPUSH Q4H PRN PRN Reason: Tachycardia Ondansetron HCl (Zofran) 4 mg IV Q6H PRN PRN Reason: Nausea/Vomiting Polyethylene Glycol (Miralax) 17 gm PO DAILY PRN PRN Reason: Constipation Potassium Chloride (Pharmacy To Dose - Potassium Replacement) 0 dose .XX ASDIRECTED PRN PRN Reason: RX TO WATCH K LEVELS Potassium Chloride (Klor-Con M20) 40 meq PO Q4H [facility] Stop: 06/08/17 16:01 Last Admin: 06/08/17 12:13 Dose: 40 meq Senna/Docusate Sodium (Senna Plus) 1 tab PO BID PRN PRN Reason: Constipation Discontinued Medications Hydromorphone HCl (Dilaudid) 0.25 mg IVPUSH Q2H PRN PRN Reason: Pain (severe 7-10) Sodium Chloride (Normal Saline) 1,000 mls @ 999 mls/hr IV ONETIME ONE Stop: 06/06/17 22:27 Last Admin: 06/06/17 21:27 Dose: 999 mls/hr Sodium Chloride (Normal Saline) 1,000 mls @ 999 mls/hr IV ONETIME ONE Stop: 06/06/17 22:32 Last Admin: 06/06/17 23:00 Dose: Not Given Lactated Ringer's (Ringers, Lactated) 1,000 mls @ 999 mls/hr IV .BOLUS ONE Stop: 06/06/17 22:40 Last Admin: 06/06/17 22:34 Dose: 999 mls/hr Lactated Ringer's (Ringers, Lactated) 1,000 mls @ 999 mls/hr IV ASDIRECTED [facility] Last Admin: 06/06/17 23:38 Dose: 999 mls/hr Insulin Human Regular 100 unit (/ Sodium Chloride) 100 mls @ 6.9 mls/hr IV TITRATE [facility]; 0.1 UNITS/KG/HR PRN Reason: Protocol Last Titration: 06/07/17 06:43 Dose: 0.07 units/kg/hr, 5.3 mls/hr Sodium Chloride (Normal Saline) Confirm Administered Dose 100 mls @ as directed .ROUTE .STK-MED ONE Stop: 06/06/17 23:17 Last Admin: 06/06/17 23:40 Dose: Not Given Sodium Chloride (Normal Saline) 1,000 mls @ 150 mls/hr IV ASDIRECTED [facility] Last Infusion: 06/07/17 00:47 Dose: 999 mls/hr Dextrose/Water (Dextrose 5% In Water) 1,000 mls @ 150 mls/hr IV ASDIRECTED [facility] Last Admin: 06/07/17 08:40 Dose: 250 mls/hr Magnesium Sulfate 2 gm/ Premix 50 mls @ 50 mls/hr IV ONETIME ONE Stop: 06/07/17 08:59 Last Admin: 06/07/17 10:02 Dose: 50 mls/hr Potassium Chloride 10 meq/ (Premix) 100 mls @ 100 mls/hr IV Q1H [facility] Stop: 06/07/17 11:59 Insulin Aspart (Novolog) 6 unit SUBCUT TIDMEALS [facility] Insulin Detemir (Levemir) 20 unit SUBCUT ONETIME ONE Stop: 06/07/17 10:26 Last Admin: 06/07/17 10:40 Dose: 20 units Insulin Human Regular (Humulin R) 7 unit IV ONETIME ONE PRN Reason: Protocol Stop: 06/06/17 21:40 Last Admin: 06/06/17 21:56 Dose: 7 unit Magnesium Oxide (Magnesium Oxide) 800 mg PO ONETIME ONE Stop: 06/08/17 08:01 Last Admin: 06/08/17 08:00 Dose: 800 mg Ondansetron HCl (Zofran) 4 mg IVPUSH ONETIME ONE Stop: 06/06/17 21:28 Last Admin: 06/06/17 21:31 Dose: 4 mg Potassium Chloride (Klor-Con M20) 20 meq PO ONETIME ONE Stop: 06/06/17 22:46 Last Admin: 06/06/17 23:21 Dose: 20 meq Potassium Chloride (Klor-Con M20) 40 meq PO ONETIME ONE Stop: 06/07/17 07:53 Last Admin: 06/07/17 10:16 Dose: Not Given Potassium Chloride (Klor-Con M20) 40 meq PO ONETIME ONE Stop: 06/07/17 10:31 Last Admin: 06/07/17 10:26 Dose: 40 meq - Exam General: Reports: Alert, Oriented, Cooperative, No Acute Distress HEENT: Reports: Pupils Equal, Pupils Reactive, EOMI, Mucous Membr. Moist/[place] Neck: Reports: Supple, Trachea Midline, No JVD, No Thyromegaly Lungs: Reports: Clear to Auscultation, Normal Respiratory Effort Cardiovascular: Reports: Regular Rate, Regular Rhythm GI/Abdominal Exam: Normal Bowel Sounds, Soft, Non-Tender, No Organomegaly, No Distention, No Abnormal Bruit, No Mass (Male) Exam: Deferred Rectal (Males) Exam: Deferred Back Exam: Reports: Normal Inspection, Full Range of Motion Extremities: Normal Inspection, Normal Range of Motion, Non-Tender, No Pedal Edema, Normal Capillary Refill Skin: Reports: Warm, Dry, Intact Neurological: Reports: No New Focal Deficit Psy/Mental Status: Reports: Alert, Normal Affect, Normal Mood *Q Meaningful Use (DIS) - VTE *Q VTE Criteria *Q: - Stroke *Q Stroke Criteria *Q: - AMI *Q AMI Criteria *Q:
== END 2017-06-08 15:05 | disposition home or self-care (01) | DRG 639 ==
LOC: JD.ED 21:08 → JD.ICU 22:17 → UNDOADMIN 22:40 → JD.ICU 22:40
PROVIDERS: ADMIT Internal Medicine; ATTEND Internal Medicine
DX: E10.10 Type 1 diabetes mellitus with ketoacidosis without coma (principal); Z79.4 Long term (current) use of insulin; Z96.41 Presence of insulin pump (external) (internal); I10 Essential (primary) hypertension; F32.9 Major depressive disorder, single episode, unspecified; Z87.891 Personal history of nicotine dependence; Z91.14 Patient's other noncompliance with medication regimen
CPT/HCPCS: 36415; 36600; 71010; 71010-26; 80048; 80053; 81001; 82009; 82803; 82962; 83036; 83605; 83735; 84484; 85025; 93005; 96361; 96374; 96375; 99284; 99285-25; A9270-GY; J1815-GY; J1817; J2405; J3475; J7040; J7060; J7120

== ENCOUNTER 2017-08-24 22:49 | Emergency (ER) | payer MEDICAID ==
[2017-08-24 22:55] VITALS: BP 141/94
[2017-08-24] MEDS ORDERED: Sodium Chloride 0.9% 10 ML Syringe FLUSH PRN (23:01)
[2017-08-24] MEDS ORDERED: Insulin Regular, Human 100 Units/ML 3 ML Vial IVPUSH ONE (23:13)
[2017-08-24] MEDS ORDERED: Ondansetron 4 MG/2 ML SDV IVPUSH ONE (23:14)
[2017-08-24] MEDS ORDERED: Sodium Chloride 0.9% 1,000 ML IV SCH (23:15)
--- NOTE | 2017-08-25 00:16 | EDM.PDOC ---
ED HPI GENERAL MEDICAL PROBLEM - General Chief Complaint: Diabetic Complaint Stated Complaint: DIABETIC CHECK Time Seen by Provider: 08/24/17 23:01 Source of Information: Reports: Patient, RN Notes Reviewed - History of Present Illness INITIAL COMMENTS - FREE TEXT/NARRATIVE: 22-year-old male comes in with nausea, vomiting, symptoms of elevated blood sugar. He is insulin-dependent diabetic. He's had frequent visits to ED and hospital with diabetic ketoacidosis. He had one episode of nausea vomiting yesterday and then has had about 3 episodes of vomiting this afternoon and evening. He states she's been very thirsty today, drinking a lot of water. He does have an insulin pump. He states yesterday his readings were running 2-300. He states that his "sensor ran out of charge" today so not sure what his readings have been today. No chest or abdominal pain at this time. Mouth still does feel dry. Upper Abdominal Pain Score (Numeric/FACES): 2 - Related Data Allergies Allergy/AdvReac Type Severity Reaction Status Date / Time No Known Allergies Allergy Verified 06/06/17 21:13 Home Meds: Home Meds Insulin Pump/Infus. Set/Meter [Accu-Chek Combo System] 0 unit SQ ASDIRECTED [History] Insulin Detemir [Levemir Flextouch] 20 unit SQ BEDTIME 06/06/17 [History] Past Medical History Cardiovascular History: Reports: Hypertension Gastrointestinal History: Reports: Other (See Below) Other Gastrointestinal History: patient has had liver biopsy Musculoskeletal History: Reports: Fracture Other Musculoskeletal History: "boxer fracture" - fifth knuckle fracture November 2016 Neurological History: Reports: Head Trauma Psychiatric History: Reports: Depression Endocrine/Metabolic History: Reports: Diabetes, Type I Other Endocrine/Metabolic History: Diabetic ketoacidosis. Insulin pump - Infectious Disease History Infectious Disease History: Reports: None - Past Surgical History Cardiovascular Surgical History: Reports: None Male Surgical History: Reports: Circumcision Social & Family History - Family History Family Medical History: Noncontributory Cardiac: Reports: [place] - Tobacco Use Smoking Status *Q: Never Smoker Years of Tobacco use: 7 Packs/Tins Daily: 0.5 Used Tobacco, but Quit: Yes Month Tobacco Last Used: 2015 Second Hand Smoke Exposure: No - Caffeine Use Caffeine Use: Reports: Soda Other Caffeine Use: 1-2 cups - Recreational Drug Use Recreational Drug Use: No Recreational Drug Type: Reports: Marijuana/Hashish Recreational Drug Use Frequency: Not Used In Over 6 Months - Living Situation & Occupation Living situation: Reports: Single, with Significant Other Occupation: Unemployed ED ROS GENERAL - Review of Systems Review Of Systems: See Below Constitutional: Denies: Fever, Chills, Diaphoresis HEENT: Denies: Throat Pain Respiratory: Denies: Shortness of Breath, Pleuritic Chest Pain, Cough Cardiovascular: Denies: Chest Pain GI/Abdominal: Reports: Nausea, Vomiting. Denies: Abdominal Pain, Diarrhea Musculoskeletal: Reports: No Symptoms Skin: Reports: No Symptoms Neurological: Reports: Dizziness. Denies: Numbness, Tingling, Trouble Speaking , Difficulty Walking, Weakness ED EXAM GENERAL NO PERIP PULSE - Physical Exam Exam: See Below General Appearance: Alert, No Apparent Distress Course - Vital Signs Last Recorded V/S: Last Vital Signs Temp 98.7 F 08/24/17 22:53 Pulse 88 08/24/17 22:53 Resp 17 08/24/17 22:53 BP 141/94 H 08/24/17 22:53 Pulse Ox 99 08/24/17 22:53 - Orders/Labs/Meds Orders: Active Orders 24 hr Category Date Time Status Blood Glucose Check, Bedside [RC] ONETIME Care 08/25/17 00:27 Active Peripheral IV Care [RC] . DIRECTED Care 08/24/17 23:01 Active Sodium Chloride 0.9% [Normal Saline] 1,000 ml Med 08/25/17 00:30 Active IV ASDIRECTED Sodium Chloride 0.9% [Normal Saline] 1,000 ml Med 08/24/17 23:15 Active IV ONETIME Sodium Chloride 0.9% [Saline Flush] Med 08/24/17 23:01 Active 10 ml FLUSH ASDIRECTED PRN Peripheral IV Insertion Adult [OM.PC] Stat Oth 08/24/17 23:00 Ordered Medication Orders Sodium Chloride (Normal Saline) 1,000 mls @ 999 mls/hr IV ONETIME PRINCE Last Admin: 08/24/17 23:20 Dose: 999 mls/hr Sodium Chloride (Normal Saline) 1,000 mls @ 999 mls/hr IV ASDIRECTED PRINCE Last Admin: 08/25/17 00:27 Dose: 999 mls/hr Sodium Chloride (Saline Flush) 10 ml FLUSH ASDIRECTED PRN PRN Reason: Keep Vein Open Last Admin: 08/24/17 23:23 Dose: 10 ml Labs: Laboratory Tests 08/24/17 08/24/17 08/25/17 Range/Units 23:00 23:00 00:26 WBC 5.99 (4.23-9.07) K/mm3 RBC 5.23 (4.63-6.08) M/mm3 Hgb 16.0 (13.7-17.5) gm/L Hct 39.5 L (40.1-51.0) % MCV 75.5 L (79.0-92.2) fl MCH 30.6 (25.7-32.2) pg MCHC 40.5 H (32.2-35.5) g/dl RDW Std Deviation 38.1 (35.1-43.9) fL Plt Count 259 (163-337) K/mm3 MPV 10.4 (9.4-12.3) fl Neut % (Auto) 50.7 (34.0-67.9) % Lymph % (Auto) 40.6 (21.8-53.1) % [place] % (Auto) 7.7 (5.3-12.2) % Eos % (Auto) 0.3 L (0.8-7.0) Baso % (Auto) 0.5 (0.1-1.2) % Neut # (Auto) 3.04 (1.78-5.38) K/mm3 Lymph # (Auto) 2.43 (1.32-3.57) K/mm3 [place] # (Auto) 0.46 (0.30-0.82) K/mm3 Eos # (Auto) 0.02 L (0.04-0.54) K/mm3 Baso # (Auto) 0.03 (0.01-0.08) K/mm3 Sodium 131 L (136-145) mEq/L Potassium 4.1 (3.5-5.1) mEq/L Chloride 94 L (98-107) mEq/L Carbon Dioxide 25 (21-32) mEq/L Anion Gap 16.1 H (5-15) BUN 11 (7-18) mg/dL Creatinine 1.0 (0.7-1.3) mg/dL Est Cr Clr Drug Dosing 110.17 mL/min Estimated GFR (MDRD) > 60 (>60) mL/min BUN/Creatinine Ratio 11.0 L (14-18) Glucose 594 H* (74-106) mg/dL POC Glucose 392 H (70-105) mg/dL Calcium 8.7 (8.5-10.1) mg/dL Total Bilirubin 0.6 (0.2-1.0) mg/dL AST 24 (15-37) U/L ALT 35 (16-63) U/L Alkaline Phosphatase 78 (46-116) U/L Total Protein 7.6 (6.4-8.2) g/dl Albumin 3.7 (3.4-5.0) g/dl Globulin 3.9 gm/dL Albumin/Globulin Ratio 1.0 (1-2) 08/25/17 Range/Units 02:18 WBC (4.23-9.07) K/mm3 RBC (4.63-6.08) M/mm3 Hgb (13.7-17.5) gm/L Hct (40.1-51.0) % MCV (79.0-92.2) fl MCH (25.7-32.2) pg MCHC (32.2-35.5) g/dl RDW Std Deviation (35.1-43.9) fL Plt Count (163-337) K/mm3 MPV (9.4-12.3) fl Neut % (Auto) (34.0-67.9) % Lymph % (Auto) (21.8-53.1) % [place] % (Auto) (5.3-12.2) % Eos % (Auto) (0.8-7.0) Baso % (Auto) (0.1-1.2) % Neut # (Auto) (1.78-5.38) K/mm3 Lymph # (Auto) (1.32-3.57) K/mm3 [place] # (Auto) (0.30-0.82) K/mm3 Eos # (Auto) (0.04-0.54) K/mm3 Baso # (Auto) (0.01-0.08) K/mm3 Sodium (136-145) mEq/L Potassium (3.5-5.1) mEq/L Chloride (98-107) mEq/L Carbon Dioxide (21-32) mEq/L Anion Gap (5-15) BUN (7-18) mg/dL Creatinine (0.7-1.3) mg/dL Est Cr Clr Drug Dosing mL/min Estimated GFR (MDRD) (>60) mL/min BUN/Creatinine Ratio (14-18) Glucose (74-106) mg/dL POC Glucose 263 H (70-105) mg/dL Calcium (8.5-10.1) mg/dL Total Bilirubin (0.2-1.0) mg/dL AST (15-37) U/L ALT (16-63) U/L Alkaline Phosphatase (46-116) U/L Total Protein (6.4-8.2) g/dl Albumin (3.4-5.0) g/dl Globulin gm/dL Albumin/Globulin Ratio (1-2) Meds: Medications Generic Name Dose Route Start Last Admin Trade Name Freq PRN Reason Stop Dose Admin Sodium Chloride 1,000 mls @ 999 mls/hr 08/24/17 23:15 08/24/17 23:20 Normal Saline IV 999 mls/hr ONETIME PRINCE Administration Sodium Chloride 1,000 mls @ 999 mls/hr 08/25/17 00:30 08/25/17 00:27 Normal Saline IV 999 mls/hr ASDIRECTED PRINCE Administration Sodium Chloride 10 ml 08/24/17 23:01 08/24/17 23:23 Saline Flush FLUSH 10 ml ASDIRECTED PRN Administration Keep Vein Open Discontinued Medications Generic Name Dose Route Start Last Admin Trade Name Freq PRN Reason Stop Dose Admin Insulin Human Regular 4 unit 08/24/17 23:13 08/24/17 23:22 Humulin R IVPUSH 08/24/17 23:14 4 unit ONETIME ONE Administration Protocol Insulin Human Regular 2 unit 08/25/17 01:02 08/25/17 01:12 Humulin R IVPUSH 08/25/17 01:03 2 unit ONETIME ONE Administration Protocol Ondansetron HCl 4 mg 08/24/17 23:14 08/24/17 23:26 Zofran IVPUSH 08/24/17 23:15 4 mg ONETIME ONE Administration Departure - Departure Time of Disposition: 02:21 Disposition: Home, Self-Care 01 Condition: Fair Clinical Impression: Hyperglycemia Vomiting Qualifiers: Vomiting type: unspecified Vomiting Intractability: non-intractable Nausea presence: with nausea Qualified Code(s): R11.2 - Nausea with vomiting, unspecified - Discharge Information Instructions: Hyperglycemia, [id number], Nausea and Vomiting, Adult Referrals: PCP,None [Primary Care Provider] - Forms: ED Department Discharge Additional Instructions: Your blood sugar now at time of discharge is down to 263. Get the sensor for your insulin home charge so you can monitor readings today and continuing forward from here. Eat a healthy low-carb diabetic diet. Follow-up clinic as needed. Return to ED as needed if symptoms worsening in any way. - My Orders Last 24 Hours: My Active Orders 08/24/17 23:00 Peripheral IV Insertion Adult [OM.PC] Stat 08/24/17 23:01 Peripheral IV Care [RC] . DIRECTED Sodium Chloride 0.9% [Saline Flush] 10 ml FLUSH ASDIRECTED PRN 08/24/17 23:15 Sodium Chloride 0.9% [Normal Saline] 1,000 ml IV ONETIME 08/25/17 00:27 Blood Glucose Check, Bedside [RC] ONETIME 08/25/17 00:30 Sodium Chloride 0.9% [Normal Saline] 1,000 ml IV ASDIRECTED - Assessment/Plan Last 24 Hours: My Active Orders 08/24/17 23:00 Peripheral IV Insertion Adult [OM.PC] Stat 08/24/17 23:01 Peripheral IV Care [RC] . DIRECTED Sodium Chloride 0.9% [Saline Flush] 10 ml FLUSH ASDIRECTED PRN 08/24/17 23:15 Sodium Chloride 0.9% [Normal Saline] 1,000 ml IV ONETIME 08/25/17 00:27 Blood Glucose Check, Bedside [RC] ONETIME 08/25/17 00:30 Sodium Chloride 0.9% [Normal Saline] 1,000 ml IV ASDIRECTED
[2017-08-25] MEDS ORDERED: Sodium Chloride 0.9% 1,000 ML IV SCH (00:30)
[2017-08-25] MEDS ORDERED: Insulin Regular, Human 100 Units/ML 3 ML Vial IVPUSH ONE (01:02)
== END 2017-08-25 02:32 | disposition home or self-care (01) ==
LOC: JD.ED 22:49
DX: E10.65 Type 1 diabetes mellitus with hyperglycemia (principal); R11.2 Nausea with vomiting, unspecified; I10 Essential (primary) hypertension
CPT/HCPCS: 36415; 80053; 82962; 85025; 96361; 96374; 96375; 96376; 99284; J1817; J2405; J7040; J7050

== ENCOUNTER 2017-09-27 14:36 | Emergency (ER) | payer MEDICAID ==
[2017-09-27 15:11] VITALS: BP 140/102
[2017-09-27] MEDS ORDERED: Sodium Chloride 0.9% 2,000 ML IV ONE (16:35)
--- NOTE | 2017-09-27 17:34 | EDM.PDOC ---
ED HPI GENERAL MEDICAL PROBLEM - General Chief Complaint: Chest Pain Stated Complaint: CHEST PAIN Time Seen by Provider: 09/27/17 15:20 Source of Information: Reports: Patient History Limitations: Reports: No Limitations - History of Present Illness INITIAL COMMENTS - FREE TEXT/NARRATIVE: The patient presents with left sided chest pain that started a couple days ago. It comes and goes. He has no shortness of breath with it. The pain does radiate to his back. He has no fever, chills, cough, congestion, abdominal pain , nausea or vomiting. He has type I diabetes under poor control. His sugars have been up recently. Onset: Gradual Duration: Day(s): Location: Reports: Chest Quality: Reports: Sharp Severity: Moderate Improves with: Reports: None Worsens with: Reports: None Associated Symptoms: Reports: Chest Pain. Denies: Fever/Chills, Nausea/Vomiting , Shortness of Breath Treatments DIRECTOR OF INSTITUTIONAL GIVING: Reports: Other (see below) Other Treatments DIRECTOR OF INSTITUTIONAL GIVING: none Left Chest Pain Score (Numeric/FACES): 3 - Related Data Allergies Allergy/AdvReac Type Severity Reaction Status Date / Time No Known Allergies Allergy Verified 06/06/17 21:13 Home Meds: Home Meds Insulin Pump/Infus. Set/Meter [Accu-Chek Combo System] 0 unit SQ ASDIRECTED [History] Past Medical History Cardiovascular History: Reports: Hypertension Gastrointestinal History: Reports: Other (See Below) Other Gastrointestinal History: patient has had liver biopsy Musculoskeletal History: Reports: Fracture Other Musculoskeletal History: "boxer fracture" - fifth knuckle fracture November 2016 Neurological History: Reports: Head Trauma Psychiatric History: Reports: Depression Endocrine/Metabolic History: Reports: Diabetes, Type I Other Endocrine/Metabolic History: Diabetic ketoacidosis. Insulin pump - Infectious Disease History Infectious Disease History: Reports: None - Past Surgical History Cardiovascular Surgical History: Reports: None Male Surgical History: Reports: Circumcision Social & Family History - Family History Family Medical History: Noncontributory Cardiac: Reports: [place] - Tobacco Use Smoking Status *Q: Current Every Day Smoker Years of Tobacco use: 4 Packs/Tins Daily: 1 Used Tobacco, but Quit: Yes Month Tobacco Last Used: 2015 Second Hand Smoke Exposure: No - Caffeine Use Caffeine Use: Reports: Coffee, Energy Drinks, Soda, Tea Other Caffeine Use: 1-2 cups - Recreational Drug Use Recreational Drug Use: No Recreational Drug Type: Reports: Marijuana/Hashish Recreational Drug Use Frequency: Not Used In Over 6 Months - Living Situation & Occupation Living situation: Reports: Single, with Significant Other Occupation: Unemployed ED ROS GENERAL - Review of Systems Review Of Systems: See Below Constitutional: Reports: No Symptoms HEENT: Reports: No Symptoms Respiratory: Reports: No Symptoms Cardiovascular: Reports: Chest Pain Endocrine: Reports: No Symptoms GI/Abdominal: Reports: No Symptoms : Reports: No Symptoms ED EXAM, GENERAL - Physical Exam Exam: See Below Exam Limited By: No Limitations General Appearance: Alert, No Apparent Distress Ears: Normal External Exam Nose: Normal Inspection Head: Atraumatic, Normocephalic Neck: Normal Inspection Respiratory/Chest: No Respiratory Distress, Lungs Clear, Normal Breath Sounds Cardiovascular: Regular Rate, Rhythm, No Edema, No Murmur GI/Abdominal: Soft, Non-Tender, No Organomegaly, No Mass Back Exam: Normal Inspection EKG INTERPRETATION EKG Date: 09/27/17 Time: 15:43 Rhythm: Other (sinus tachycardia) Rate (Beats/Min): 107 [place]: Normal P-Wave: Present QRS: Normal ST-T: Normal QT: Normal Course - Vital Signs Last Recorded V/S: Last Vital Signs Temp 98.7 F 09/27/17 15:09 Pulse 107 H 09/27/17 15:09 Resp 20 09/27/17 15:09 BP 140/102 H 09/27/17 15:09 Pulse Ox 100 09/27/17 15:09 - Orders/Labs/Meds Orders: Active Orders 24 hr Category Date Time Status Cardiac Monitoring [RC] . DIRECTED Care 09/27/17 15:32 Active EKG Documentation Completion [RC] STAT Care 09/27/17 15:33 Active Chest 2V [CR] Stat Exams 09/27/17 15:33 Taken Sodium Chloride 0.9% [Normal Saline] 2,000 ml Med 09/27/17 16:35 Active IV ONETIME Medication Orders Sodium Chloride (Normal Saline) 2,000 mls @ 1,000 mls/hr IV ONETIME ONE Stop: 09/27/17 18:34 Labs: Laboratory Tests 09/27/17 09/27/17 09/27/17 Range/Units 16:00 16:00 16:00 WBC 5.26 (4.23-9.07) K/mm3 RBC 5.04 (4.63-6.08) M/mm3 Hgb 14.2 (13.7-17.5) gm/L Hct 39.8 L (40.1-51.0) % MCV 78.9 L (79.0-92.2) fl MCH 28.1 (25.7-32.2) pg MCHC 37.1 H (32.2-35.5) g/dl RDW Std Deviation 38.4 (35.1-43.9) fL Plt Count 239 (163-337) K/mm3 MPV 9.8 (9.4-12.3) fl Neut % (Auto) 63.8 (34.0-67.9) % Lymph % (Auto) 28.1 (21.8-53.1) % [place] % (Auto) 6.7 (5.3-12.2) % Eos % (Auto) 0.8 (0.8-7.0) Baso % (Auto) 0.4 (0.1-1.2) % Neut # (Auto) 3.36 (1.78-5.38) K/mm3 Lymph # (Auto) 1.48 (1.32-3.57) K/mm3 [place] # (Auto) 0.35 (0.30-0.82) K/mm3 Eos # (Auto) 0.04 (0.04-0.54) K/mm3 Baso # (Auto) 0.02 (0.01-0.08) K/mm3 Manual Slide Review Normal smear D-Dimer, Quantitative < 0.19 L (0.19-0.59) mg/L Puncture Site ABG pH (7.35-7.45) ABG pCO2 (35.0-45.0) mmHg ABG pO2 (80.0-100.0) mmHg ABG HCO3 (22.0-26.0) meq/L ABG O2 Saturation (96.0-97.0) % ABG Base Excess (-2-2.0) A-a Gradient mmHg O2 Delivery Device FiO2 (21.00-100.00) % Sodium 134 L (136-145) mEq/L Potassium 4.1 (3.5-5.1) mEq/L Chloride 97 L (98-107) mEq/L Carbon Dioxide 29 (21-32) mEq/L Anion Gap 12.1 (5-15) BUN 9 (7-18) mg/dL Creatinine 1.0 (0.7-1.3) mg/dL Est Cr Clr Drug Dosing 106.33 mL/min Estimated GFR (MDRD) > 60 (>60) mL/min BUN/Creatinine Ratio 9.0 L (14-18) Glucose 602 H* (74-106) mg/dL Serum Osmolality (280-300) mosm/kg Calcium 8.8 (8.5-10.1) mg/dL Total Bilirubin 0.8 (0.2-1.0) mg/dL AST 14 L (15-37) U/L ALT 25 (16-63) U/L Alkaline Phosphatase 72 (46-116) U/L Troponin I < 0.017 (0.00-0.056) ng/mL Total Protein 7.3 (6.4-8.2) g/dl Albumin 3.8 (3.4-5.0) g/dl Globulin 3.5 gm/dL Albumin/Globulin Ratio 1.1 (1-2) Ketones (0.0-0.3) mM 09/27/17 09/27/17 09/27/17 Range/Units 16:00 16:00 16:57 WBC (4.23-9.07) K/mm3 RBC (4.63-6.08) M/mm3 Hgb (13.7-17.5) gm/L Hct (40.1-51.0) % MCV (79.0-92.2) fl MCH (25.7-32.2) pg MCHC (32.2-35.5) g/dl RDW Std Deviation (35.1-43.9) fL Plt Count (163-337) K/mm3 MPV (9.4-12.3) fl Neut % (Auto) (34.0-67.9) % Lymph % (Auto) (21.8-53.1) % [place] % (Auto) (5.3-12.2) % Eos % (Auto) (0.8-7.0) Baso % (Auto) (0.1-1.2) % Neut # (Auto) (1.78-5.38) K/mm3 Lymph # (Auto) (1.32-3.57) K/mm3 [place] # (Auto) (0.30-0.82) K/mm3 Eos # (Auto) (0.04-0.54) K/mm3 Baso # (Auto) (0.01-0.08) K/mm3 Manual Slide Review D-Dimer, Quantitative (0.19-0.59) mg/L Puncture Site Rt radial ABG pH 7.46 H (7.35-7.45) ABG pCO2 34.3 L (35.0-45.0) mmHg ABG pO2 80.0 (80.0-100.0) mmHg ABG HCO3 23.9 (22.0-26.0) meq/L ABG O2 Saturation 99.3 H (96.0-97.0) % ABG Base Excess 1.0 (-2-2.0) A-a Gradient 12 mmHg O2 Delivery Device Room air FiO2 21.00 (21.00-100.00) % Sodium (136-145) mEq/L Potassium (3.5-5.1) mEq/L Chloride (98-107) mEq/L Carbon Dioxide (21-32) mEq/L Anion Gap (5-15) BUN (7-18) mg/dL Creatinine (0.7-1.3) mg/dL Est Cr Clr Drug Dosing mL/min Estimated GFR (MDRD) (>60) mL/min BUN/Creatinine Ratio (14-18) Glucose (74-106) mg/dL Serum Osmolality 314 H (280-300) mosm/kg Calcium (8.5-10.1) mg/dL Total Bilirubin (0.2-1.0) mg/dL AST (15-37) U/L ALT (16-63) U/L Alkaline Phosphatase (46-116) U/L Troponin I (0.00-0.056) ng/mL Total Protein (6.4-8.2) g/dl Albumin (3.4-5.0) g/dl Globulin gm/dL Albumin/Globulin Ratio (1-2) Ketones 0.29 (0.0-0.3) mM Meds: Medications Generic Name Dose Route Start Last Admin Trade Name Freq PRN Reason Stop Dose Admin Sodium Chloride 2,000 mls @ 1,000 mls/hr 09/27/17 16:35 Normal Saline IV 09/27/17 18:34 ONETIME ONE - Re-Assessments/Exams Free Text/Narrative Re-Assessment/Exam: 09/27/17 17:34 I ordered an EKG, CXR, and labs. His EKG shows a NSR with no acute changes. His CXR looks good. His CBC was negative. His D-dimer was negative. His pH was 7.46. His glucose was 6.02. His serum osmolality was elevated at 314. His troponin was negative. His ketones were slightly elevated at 0.29. He did not want any fluids or insulin. He has chest wall pain. I will discharge him home. Departure - Departure Time of Disposition: 17:40 Disposition: Home, Self-Care 01 Condition: Good Clinical Impression: Chest wall pain, Hyperglycemia Referrals: Jae Galicia MD [Primary Care Provider] - Additional Instructions: Take your medication as prescribed. Take some motrin or aleve as needed for pain. Follow up with your provider. Please return if you are worse. - My Orders Last 24 Hours: My Active Orders 09/27/17 15:32 Cardiac Monitoring [RC] . DIRECTED 09/27/17 15:33 EKG Documentation Completion [RC] STAT Chest 2V [CR] Stat 09/27/17 16:35 Sodium Chloride 0.9% [Normal Saline] 2,000 ml IV ONETIME - Assessment/Plan Last 24 Hours: My Active Orders 09/27/17 15:32 Cardiac Monitoring [RC] . DIRECTED 09/27/17 15:33 EKG Documentation Completion [RC] STAT Chest 2V [CR] Stat 09/27/17 16:35 Sodium Chloride 0.9% [Normal Saline] 2,000 ml IV ONETIME
--- NOTE | 2017-09-28 07:56 | CR ---
Chest: Two views of the chest were obtained. Comparison: Prior chest x-ray of 06/06/17. Heart size and mediastinum are normal. Lungs are clear. Bony structures are unremarkable. Impression: 1. Nothing acute is identified on two-view chest x-ray. Diagnostic code #1
== END 2017-09-27 17:50 | disposition home or self-care (01) ==
LOC: JD.ED 14:36 → SUPCPDRO 14:36 → JD.ED 17:50
DX: R07.89 Other chest pain (principal); E10.65 Type 1 diabetes mellitus with hyperglycemia; I10 Essential (primary) hypertension; F17.210 Nicotine dependence, cigarettes, uncomplicated
CPT/HCPCS: 36415; 36600; 71046; 71046-26; 80053; 82009; 82803; 83930; 84484; 85025; 85379; 93005; 93010; 99284; 99285-25

== ENCOUNTER 2017-10-11 13:23 | Inpatient (IN) | payer MEDICAID ==
[2017-10-11] MEDS ORDERED: HYDROmorphone 0.5 MG/0.5 ML Syringe IVPUSH ONE (13:49)
[2017-10-11] MEDS ORDERED: Metoclopramide 10 MG/2 ML SDV IVPUSH ONE (13:49)
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
[2017-10-11] MEDS: Sodium Chloride 0.9% 1,000 ML IV SCH ×3 (13:58→22:00)
[2017-10-11] MEDS ORDERED: Potassium Chloride 10 MEQ in Premix Bag 1 BAG IV SCH (14:00)
[2017-10-11] MEDS ORDERED: Sodium Chloride 0.9% 1,000 ML IV SCH ×2 (15:45→17:45)
[2017-10-11] MEDS ORDERED: Insulin Regular, Human 100 Units/ML 3 ML Vial SUBCUT ONE (16:24)
[2017-10-11] MEDS ORDERED: Insulin Regular, Human 100 Units/ML 3 ML Vial ONE (16:47)
[2017-10-11] MEDS ORDERED: Ondansetron 4 MG/2 ML SDV IVPUSH ONE (17:39)
[2017-10-11] MEDS ORDERED: Sodium Chloride 0.9% 1,000 ML IV ONE (19:10)
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
[2017-10-11] MEDS ORDERED: Ondansetron 4 MG/2 ML SDV IVPUSH PRN (20:27)
[2017-10-11] MEDS ORDERED: Dextrose 5%-0.9% NaCl with KCl 1,000 ML IV SCH (21:30)
[2017-10-11] MEDS ORDERED: Dextrose 5% in Water 1,000 ML ONE (21:43)
[2017-10-11] MEDS: Dextrose 5% in Water 1,000 ML IV SCH (22:02)
[2017-10-12] MEDS: Dextrose 5% in Water 1,000 ML IV SCH (04:13)
[2017-10-12] MEDS ORDERED: Insulin Aspart 100 Units/ML 3 ML Pen SUBCUT SCH (07:00)
[2017-10-12] MEDS ORDERED: Sodium Chloride 0.9% 1,000 ML IV SCH (09:00)
[2017-10-12] MEDS: Insulin Aspart 100 Units/ML 3 ML Pen SUBCUT SCH ×5 (09:27→23:23)
[2017-10-12] MEDS ORDERED: Magnesium Sulfate/Water 2 GM in Premix Bag 1 BAG IV ONE (10:10)
[2017-10-12] MEDS ORDERED: Potassium Chloride 10% 20 MEQ/15 ML Soln 30 ML UD Cup PO ONE (10:11)
[2017-10-12] MEDS ORDERED: Potassium Chloride 20 MEQ Tab.ER PO ONE (10:47)
[2017-10-12] MEDS ORDERED: Insulin Regular, Human 100 Units/ML 3 ML Vial SUBCUT ONE (16:24)
[2017-10-12] MEDS ORDERED: Sodium Chloride 0.9% 1,000 ML IV ONE ×2 (17:42→21:49)
--- NOTE | 2017-10-12 17:52 | PCM.PN ---
- General Info Date of Service: 10/12/17 Admission Dx/Problem (Free Text): DKA Subjective Update: Polo is seen this evening doing well. No c/o pain. No n/v. He has been ambulating about the unit today. HR's have been 90's during sleep, up ot 130's with ambulation, usually running 110's on tele in NSR. Recent lab draw at 1700 showed AG to open again to 17, up from 13.2. Blood sugar was 229 at that time on accucheck. Functional Status: Reports: Pain Controlled, Ambulating, Urinating - Review of Systems General: Reports: Fatigue HEENT: Reports: No Symptoms Pulmonary: Reports: No Symptoms Cardiovascular: Reports: No Symptoms Gastrointestinal: Reports: No Symptoms. Denies: Abdominal Pain, Nausea, Vomiting Genitourinary: Reports: No Symptoms Neurological: Reports: No Symptoms - Patient Data Vitals - Most Recent: Last Vital Signs Temp 98.2 F 10/12/17 16:00 Pulse 97 10/12/17 16:00 Resp 16 10/12/17 16:00 BP 138/92 H 10/12/17 16:00 Pulse Ox 100 10/12/17 16:00 Weight - Most Recent: 141 lb I&O - Last 24 Hours: Intake & Output 10/12/17 10/12/17 10/12/17 06:59 14:59 22:59 Intake Total 420 3779 Output Total 1250 2000 Balance -5192 058 9033 Lab Results Last 24 Hours: Laboratory Results - last 24 hr 10/11/17 10/11/17 10/11/17 Range/Units 19:56 20:55 22:08 WBC (4.23-9.07) K/mm3 RBC (4.63-6.08) M/mm3 Hgb (13.7-17.5) gm/L Hct (40.1-51.0) % MCV (79.0-92.2) fl MCH (25.7-32.2) pg MCHC (32.2-35.5) g/dl RDW Std Deviation (35.1-43.9) fL Plt Count (163-337) K/mm3 MPV (9.4-12.3) fl Neut % (Auto) (34.0-67.9) % Lymph % (Auto) (21.8-53.1) % [place] % (Auto) (5.3-12.2) % Eos % (Auto) (0.8-7.0) Baso % (Auto) (0.1-1.2) % Neut # (Auto) (1.78-5.38) K/mm3 Lymph # (Auto) (1.32-3.57) K/mm3 [place] # (Auto) (0.30-0.82) K/mm3 Eos # (Auto) (0.04-0.54) K/mm3 Baso # (Auto) (0.01-0.08) K/mm3 Manual Slide Review Sodium (136-145) mEq/L Potassium (3.5-5.1) mEq/L Chloride (98-107) mEq/L Carbon Dioxide (21-32) mEq/L Anion Gap (5-15) BUN (7-18) mg/dL Creatinine (0.7-1.3) mg/dL Est Cr Clr Drug Dosing mL/min Estimated GFR (MDRD) (>60) mL/min BUN/Creatinine Ratio (14-18) Glucose (74-106) mg/dL POC Glucose 258 H 184 H 94 (70-105) mg/dL Calcium (8.5-10.1) mg/dL Magnesium (1.8-2.4) mg/dl C-Reactive Protein (<1.0) mg/dL 10/11/17 10/11/17 10/12/17 Range/Units 22:57 22:59 00:01 WBC (4.23-9.07) K/mm3 RBC (4.63-6.08) M/mm3 Hgb (13.7-17.5) gm/L Hct (40.1-51.0) % MCV (79.0-92.2) fl MCH (25.7-32.2) pg MCHC (32.2-35.5) g/dl RDW Std Deviation (35.1-43.9) fL Plt Count (163-337) K/mm3 MPV (9.4-12.3) fl Neut % (Auto) (34.0-67.9) % Lymph % (Auto) (21.8-53.1) % [place] % (Auto) (5.3-12.2) % Eos % (Auto) (0.8-7.0) Baso % (Auto) (0.1-1.2) % Neut # (Auto) (1.78-5.38) K/mm3 Lymph # (Auto) (1.32-3.57) K/mm3 [place] # (Auto) (0.30-0.82) K/mm3 Eos # (Auto) (0.04-0.54) K/mm3 Baso # (Auto) (0.01-0.08) K/mm3 Manual Slide Review Sodium 139 (136-145) mEq/L Potassium 3.2 L (3.5-5.1) mEq/L Chloride 106 (98-107) mEq/L Carbon Dioxide 18 L (21-32) mEq/L Anion Gap 18.2 H (5-15) BUN 9 (7-18) mg/dL Creatinine 0.7 (0.7-1.3) mg/dL Est Cr Clr Drug Dosing 151.90 mL/min Estimated GFR (MDRD) > 60 (>60) mL/min BUN/Creatinine Ratio 12.9 L (14-18) Glucose 125 H (74-106) mg/dL POC Glucose 115 H 99 (70-105) mg/dL Calcium 7.6 L (8.5-10.1) mg/dL Magnesium (1.8-2.4) mg/dl C-Reactive Protein (<1.0) mg/dL 10/12/17 10/12/17 10/12/17 Range/Units 01:04 01:56 02:32 WBC (4.23-9.07) K/mm3 RBC (4.63-6.08) M/mm3 Hgb (13.7-17.5) gm/L Hct (40.1-51.0) % MCV (79.0-92.2) fl MCH (25.7-32.2) pg MCHC (32.2-35.5) g/dl RDW Std Deviation (35.1-43.9) fL Plt Count (163-337) K/mm3 MPV (9.4-12.3) fl Neut % (Auto) (34.0-67.9) % Lymph % (Auto) (21.8-53.1) % [place] % (Auto) (5.3-12.2) % Eos % (Auto) (0.8-7.0) Baso % (Auto) (0.1-1.2) % Neut # (Auto) (1.78-5.38) K/mm3 Lymph # (Auto) (1.32-3.57) K/mm3 [place] # (Auto) (0.30-0.82) K/mm3 Eos # (Auto) (0.04-0.54) K/mm3 Baso # (Auto) (0.01-0.08) K/mm3 Manual Slide Review Sodium (136-145) mEq/L Potassium (3.5-5.1) mEq/L Chloride (98-107) mEq/L Carbon Dioxide (21-32) mEq/L Anion Gap (5-15) BUN (7-18) mg/dL Creatinine (0.7-1.3) mg/dL Est Cr Clr Drug Dosing mL/min Estimated GFR (MDRD) (>60) mL/min BUN/Creatinine Ratio (14-18) Glucose (74-106) mg/dL POC Glucose 104 92 99 (70-105) mg/dL Calcium (8.5-10.1) mg/dL Magnesium (1.8-2.4) mg/dl C-Reactive Protein (<1.0) mg/dL 10/12/17 10/12/17 10/12/17 Range/Units 03:03 03:04 04:02 WBC (4.23-9.07) K/mm3 RBC (4.63-6.08) M/mm3 Hgb (13.7-17.5) gm/L Hct (40.1-51.0) % MCV (79.0-92.2) fl MCH (25.7-32.2) pg MCHC (32.2-35.5) g/dl RDW Std Deviation (35.1-43.9) fL Plt Count (163-337) K/mm3 MPV (9.4-12.3) fl Neut % (Auto) (34.0-67.9) % Lymph % (Auto) (21.8-53.1) % [place] % (Auto) (5.3-12.2) % Eos % (Auto) (0.8-7.0) Baso % (Auto) (0.1-1.2) % Neut # (Auto) (1.78-5.38) K/mm3 Lymph # (Auto) (1.32-3.57) K/mm3 [place] # (Auto) (0.30-0.82) K/mm3 Eos # (Auto) (0.04-0.54) K/mm3 Baso # (Auto) (0.01-0.08) K/mm3 Manual Slide Review Sodium 140 (136-145) mEq/L Potassium 3.1 L (3.5-5.1) mEq/L Chloride 106 (98-107) mEq/L Carbon Dioxide 18 L (21-32) mEq/L Anion Gap 19.1 H (5-15) BUN 8 (7-18) mg/dL Creatinine 0.7 (0.7-1.3) mg/dL Est Cr Clr Drug Dosing 151.90 mL/min Estimated GFR (MDRD) > 60 (>60) mL/min BUN/Creatinine Ratio 11.4 L (14-18) Glucose 115 H (74-106) mg/dL POC Glucose 91 124 H (70-105) mg/dL Calcium 7.7 L (8.5-10.1) mg/dL Magnesium (1.8-2.4) mg/dl C-Reactive Protein (<1.0) mg/dL 10/12/17 10/12/17 10/12/17 Range/Units 05:04 06:01 06:52 WBC (4.23-9.07) K/mm3 RBC (4.63-6.08) M/mm3 Hgb (13.7-17.5) gm/L Hct (40.1-51.0) % MCV (79.0-92.2) fl MCH (25.7-32.2) pg MCHC (32.2-35.5) g/dl RDW Std Deviation (35.1-43.9) fL Plt Count (163-337) K/mm3 MPV (9.4-12.3) fl Neut % (Auto) (34.0-67.9) % Lymph % (Auto) (21.8-53.1) % [place] % (Auto) (5.3-12.2) % Eos % (Auto) (0.8-7.0) Baso % (Auto) (0.1-1.2) % Neut # (Auto) (1.78-5.38) K/mm3 Lymph # (Auto) (1.32-3.57) K/mm3 [place] # (Auto) (0.30-0.82) K/mm3 Eos # (Auto) (0.04-0.54) K/mm3 Baso # (Auto) (0.01-0.08) K/mm3 Manual Slide Review Sodium (136-145) mEq/L Potassium (3.5-5.1) mEq/L Chloride (98-107) mEq/L Carbon Dioxide (21-32) mEq/L Anion Gap (5-15) BUN (7-18) mg/dL Creatinine (0.7-1.3) mg/dL Est Cr Clr Drug Dosing mL/min Estimated GFR (MDRD) (>60) mL/min BUN/Creatinine Ratio (14-18) Glucose (74-106) mg/dL POC Glucose 184 H 167 H 132 H (70-105) mg/dL Calcium (8.5-10.1) mg/dL Magnesium (1.8-2.4) mg/dl C-Reactive Protein (<1.0) mg/dL 10/12/17 10/12/17 10/12/17 Range/Units 06:53 06:53 06:53 WBC 5.71 (4.23-9.07) K/mm3 RBC 4.60 L (4.63-6.08) M/mm3 Hgb 13.4 L (13.7-17.5) gm/L Hct 35.4 L (40.1-51.0) % MCV 77.0 L (79.0-92.2) fl MCH 29.1 (25.7-32.2) pg MCHC 37.9 H (32.2-35.5) g/dl RDW Std Deviation 37.6 (35.1-43.9) fL Plt Count 204 (163-337) K/mm3 MPV 9.0 L (9.4-12.3) fl Neut % (Auto) 41.2 (34.0-67.9) % Lymph % (Auto) 48.7 (21.8-53.1) % [place] % (Auto) 8.4 (5.3-12.2) % Eos % (Auto) 1.1 (0.8-7.0) Baso % (Auto) 0.4 (0.1-1.2) % Neut # (Auto) 2.36 (1.78-5.38) K/mm3 Lymph # (Auto) 2.78 (1.32-3.57) K/mm3 [place] # (Auto) 0.48 (0.30-0.82) K/mm3 Eos # (Auto) 0.06 (0.04-0.54) K/mm3 Baso # (Auto) 0.02 (0.01-0.08) K/mm3 Manual Slide Review Normal smear Sodium 140 (136-145) mEq/L Potassium 3.2 L (3.5-5.1) mEq/L Chloride 107 (98-107) mEq/L Carbon Dioxide 23 (21-32) mEq/L Anion Gap 13.2 (5-15) BUN 5 L (7-18) mg/dL Creatinine 0.8 (0.7-1.3) mg/dL Est Cr Clr Drug Dosing 132.92 mL/min Estimated GFR (MDRD) > 60 (>60) mL/min BUN/Creatinine Ratio 6.3 L (14-18) Glucose 153 H (74-106) mg/dL POC Glucose (70-105) mg/dL Calcium 8.2 L (8.5-10.1) mg/dL Magnesium 1.4 L (1.8-2.4) mg/dl C-Reactive Protein < 0.2 (<1.0) mg/dL 10/12/17 10/12/17 10/12/17 Range/Units 07:57 09:17 12:15 WBC (4.23-9.07) K/mm3 RBC (4.63-6.08) M/mm3 Hgb (13.7-17.5) gm/L Hct (40.1-51.0) % MCV (79.0-92.2) fl MCH (25.7-32.2) pg MCHC (32.2-35.5) g/dl RDW Std Deviation (35.1-43.9) fL Plt Count (163-337) K/mm3 MPV (9.4-12.3) fl Neut % (Auto) (34.0-67.9) % Lymph % (Auto) (21.8-53.1) % [place] % (Auto) (5.3-12.2) % Eos % (Auto) (0.8-7.0) Baso % (Auto) (0.1-1.2) % Neut # (Auto) (1.78-5.38) K/mm3 Lymph # (Auto) (1.32-3.57) K/mm3 [place] # (Auto) (0.30-0.82) K/mm3 Eos # (Auto) (0.04-0.54) K/mm3 Baso # (Auto) (0.01-0.08) K/mm3 Manual Slide Review Sodium (136-145) mEq/L Potassium (3.5-5.1) mEq/L Chloride (98-107) mEq/L Carbon Dioxide (21-32) mEq/L Anion Gap (5-15) BUN (7-18) mg/dL Creatinine (0.7-1.3) mg/dL Est Cr Clr Drug Dosing mL/min Estimated GFR (MDRD) (>60) mL/min BUN/Creatinine Ratio (14-18) Glucose 432 H (74-106) mg/dL POC Glucose 123 H 162 H (70-105) mg/dL Calcium (8.5-10.1) mg/dL Magnesium (1.8-2.4) mg/dl C-Reactive Protein (<1.0) mg/dL 10/12/17 10/12/17 10/12/17 Range/Units 13:28 14:15 15:00 WBC (4.23-9.07) K/mm3 RBC (4.63-6.08) M/mm3 Hgb (13.7-17.5) gm/L Hct (40.1-51.0) % MCV (79.0-92.2) fl MCH (25.7-32.2) pg MCHC (32.2-35.5) g/dl RDW Std Deviation (35.1-43.9) fL Plt Count (163-337) K/mm3 MPV (9.4-12.3) fl Neut % (Auto) (34.0-67.9) % Lymph % (Auto) (21.8-53.1) % [place] % (Auto) (5.3-12.2) % Eos % (Auto) (0.8-7.0) Baso % (Auto) (0.1-1.2) % Neut # (Auto) (1.78-5.38) K/mm3 Lymph # (Auto) (1.32-3.57) K/mm3 [place] # (Auto) (0.30-0.82) K/mm3 Eos # (Auto) (0.04-0.54) K/mm3 Baso # (Auto) (0.01-0.08) K/mm3 Manual Slide Review Sodium 138 (136-145) mEq/L Potassium 5.0 (3.5-5.1) mEq/L Chloride 103 (98-107) mEq/L Carbon Dioxide 23 (21-32) mEq/L Anion Gap 17.0 H (5-15) BUN 9 (7-18) mg/dL Creatinine 0.8 (0.7-1.3) mg/dL Est Cr Clr Drug Dosing 132.92 mL/min Estimated GFR (MDRD) > 60 (>60) mL/min BUN/Creatinine Ratio 11.3 L (14-18) Glucose 256 H (74-106) mg/dL POC Glucose 390 H 336 H (70-105) mg/dL Calcium 8.4 L (8.5-10.1) mg/dL Magnesium (1.8-2.4) mg/dl C-Reactive Protein (<1.0) mg/dL 10/12/17 Range/Units 17:07 WBC (4.23-9.07) K/mm3 RBC (4.63-6.08) M/mm3 Hgb (13.7-17.5) gm/L Hct (40.1-51.0) % MCV (79.0-92.2) fl MCH (25.7-32.2) pg MCHC (32.2-35.5) g/dl RDW Std Deviation (35.1-43.9) fL Plt Count (163-337) K/mm3 MPV (9.4-12.3) fl Neut % (Auto) (34.0-67.9) % Lymph % (Auto) (21.8-53.1) % [place] % (Auto) (5.3-12.2) % Eos % (Auto) (0.8-7.0) Baso % (Auto) (0.1-1.2) % Neut # (Auto) (1.78-5.38) K/mm3 Lymph # (Auto) (1.32-3.57) K/mm3 [place] # (Auto) (0.30-0.82) K/mm3 Eos # (Auto) (0.04-0.54) K/mm3 Baso # (Auto) (0.01-0.08) K/mm3 Manual Slide Review Sodium (136-145) mEq/L Potassium (3.5-5.1) mEq/L Chloride (98-107) mEq/L Carbon Dioxide (21-32) mEq/L Anion Gap (5-15) BUN (7-18) mg/dL Creatinine (0.7-1.3) mg/dL Est Cr Clr Drug Dosing mL/min Estimated GFR (MDRD) (>60) mL/min BUN/Creatinine Ratio (14-18) Glucose (74-106) mg/dL POC Glucose 229 H (70-105) mg/dL Calcium (8.5-10.1) mg/dL Magnesium (1.8-2.4) mg/dl C-Reactive Protein (<1.0) mg/dL Rosalio Results Last 24 Hours: Microbiology 10/11/17 21:41 Influenza Type A Antigen Screen - Final Nasal, Left NEGATIVE INFLUENZA A VIRUS AG Influenza Type B Antigen Screen - Final NEGATIVE INFLUENZA B VIRUS AG Med Orders - Current: Current Medications Insulin Human Regular 100 unit (/ Sodium Chloride) 100 mls @ 5 mls/hr IV TITRATE PRINCE; 5 UNIT/HR PRN Reason: Protocol Last Titration: 10/12/17 08:32 Dose: 0 unit/hr, 0 mls/hr Sodium Chloride (Normal Saline) 1,000 mls @ 75 mls/hr IV ASDIRECTED PRINCE Last Admin: 10/12/17 16:23 Dose: 75 mls/hr Sodium Chloride (Normal Saline) 1,000 mls @ 999 mls/hr IV ONETIME ONE Stop: 10/12/17 18:42 Insulin Aspart (Novolog) 0 unit SUBCUT QIDACANDBED RPINCE PRN Reason: Protocol Last Admin: 10/12/17 17:37 Dose: 6 units Ondansetron HCl (Zofran) 4 mg IVPUSH Q8H PRN PRN Reason: Nausea/Vomiting Discontinued Medications Hydromorphone HCl (Dilaudid) 0.5 mg IVPUSH ONETIME ONE Stop: 10/11/17 13:50 Last Admin: 10/11/17 13:58 Dose: 0.5 mg Sodium Chloride (Normal Saline) 1,000 mls @ 999 mls/hr IV ASDIRECTED PRINCE Last Infusion: 10/12/17 09:30 Dose: Infused Potassium Chloride 10 meq/ (Premix) 100 mls @ 100 mls/hr IV ASDIRECTED PRINCE Last Admin: 10/11/17 14:20 Dose: 100 mls/hr Sodium Chloride (Normal Saline) 1,000 mls @ 999 mls/hr IV ASDIRECTED PRINCE Last Admin: 10/11/17 15:59 Dose: 999 mls/hr Sodium Chloride (Normal Saline) 1,000 mls @ 999 mls/hr IV ASDIRECTED PRINCE Sodium Chloride (Normal Saline) 1,000 mls @ 999 mls/hr IV ONETIME ONE Stop: 10/11/17 20:10 Last Admin: 10/11/17 19:44 Dose: 999 mls/hr Insulin Human Regular 100 unit (/ Sodium Chloride) 100 mls @ 328.85 mls/hr IV TITRATE PRINCE; 5 UNITS/KG/HR PRN Reason: Protocol Last Admin: 10/11/17 19:53 Dose: 5 units/kg/hr, 328.85 mls/hr Potassium Chloride/Dextrose/Sod Cl (D5 Ns With 20 Meq Kcl) 1,000 mls @ 250 mls/ hr IV ASDIRECTED [facility], 1928–1983 Dextrose/Water (Dextrose 5% In Water) Confirm Administered Dose 1,000 mls @ as directed .ROUTE .STK-MED ONE Stop: 10/11/17 21:44 Last Admin: 10/11/17 22:03 Dose: Not Given Dextrose/Water (Dextrose 5% In Water) 1,000 mls @ 150 mls/hr IV ASDIRECTED PRINCE Last Infusion: 10/12/17 09:27 Dose: 0 mls/hr Magnesium Sulfate 2 gm/ Premix 50 mls @ 25 mls/hr IV ONETIME ONE Stop: 10/12/17 12:09 Last Admin: 10/12/17 10:58 Dose: 25 mls/hr Insulin Aspart (Novolog) 0 unit SUBCUT QIDACANDBED PRINCE PRN Reason: Protocol Last Admin: 10/12/17 06:59 Dose: Not Given Insulin Human Regular (Humulin R) 5 unit SUBCUT ONETIME ONE PRN Reason: Protocol Stop: 10/12/17 16:25 Insulin Human Regular (Humulin R) Confirm Administered Dose 300 unit .ROUTE .STK -MED ONE Stop: 10/11/17 16:48 Last Admin: 10/11/17 16:49 Dose: 5 units Insulin Human Regular (Humulin R) 5 unit SUBCUT ONETIME ONE PRN Reason: Protocol Stop: 10/11/17 16:25 Last Admin: 10/11/17 19:29 Dose: Not Given Metoclopramide HCl (Reglan) 7.5 mg IVPUSH ONETIME ONE Stop: 10/11/17 13:50 Last Admin: 10/11/17 13:58 Dose: 7.5 mg Ondansetron HCl (Zofran) 4 mg IVPUSH ONETIME ONE Stop: 10/11/17 17:40 Last Admin: 10/11/17 17:55 Dose: 4 mg Potassium Chloride (Potassium Chloride) 40 meq PO ONETIME ONE Stop: 10/12/17 10:12 Last Admin: 10/12/17 10:48 Dose: Not Given Potassium Chloride (Klor-Con M20) 40 meq PO ONETIME ONE Stop: 10/12/17 10:48 Last Admin: 10/12/17 10:52 Dose: 40 meq - Exam Quality Assessment: DVT Prophylaxis General: Alert, Oriented, Cooperative, No Acute Distress HEENT: Pupils Equal, EOMI, Mucous Membr. Moist/[place] Neck: Supple Lungs: Clear to Auscultation, Normal Respiratory Effort Cardiovascular: Regular Rate, Regular Rhythm GI/Abdominal Exam: Normal Bowel Sounds, Soft, Non-Tender, Other (round). No: Distended, Guarding, Rigid, Rebound, Tender (Male) Exam: Deferred Extremities: Normal Inspection, Normal Range of Motion Peripheral Pulses: 2+: Dorsalis Pedis (L), Dorsalis Pedis (R) Neurological: No New Focal Deficit Psy/Mental Status: Alert, Normal Affect, Normal Mood - Problem List & Annotations (1) DKA, type 1 SNOMED Code(s): 999641299 Code(s): E10.10 - TYPE 1 DIABETES MELLITUS WITH KETOACIDOSIS WITHOUT COMA Status: Acute Priority: High Current Visit: Yes Qualifiers: Diabetes mellitus complication detail: without coma Qualified Code(s): E10.10 - Type 1 diabetes mellitus with ketoacidosis without coma (2) Dehydration SNOMED Code(s): 89932944 Code(s): E86.0 - DEHYDRATION Status: Acute Priority: High Current Visit : Yes (3) Tachycardia SNOMED Code(s): 8708069 Code(s): R00.0 - TACHYCARDIA, UNSPECIFIED Status: Acute Priority: High Current Visit: Yes (4) Hypokalemia SNOMED Code(s): 76921338 Code(s): E87.6 - HYPOKALEMIA Status: Acute Priority: High Current Visit : Yes (5) Hypomagnesemia SNOMED Code(s): 925949091 Code(s): E83.42 - HYPOMAGNESEMIA Status: Acute Priority: High Current Visit: Yes - Problem List Review Problem List Initiated/Reviewed/Updated: Yes - My Orders Last 24 Hours: My Active Orders 10/11/17 20:00 Insulin Regular, Human [HumuLIN R] 100 unit Sodium Chloride 0.9% [Normal Saline] 99 ml IV TITRATE 10/12/17 17:42 Sodium Chloride 0.9% [Normal Saline] 1,000 ml IV ONETIME 10/12/17 17:44 Consult to Diabetic Nurse Specialist [CONS] Routine 10/12/17 20:30 BMP [BASIC METABOLIC PANEL,BMP] [CHEM] Routine 10/13/17 Breakfast Clear Liquid Diet [DIET] - Plan Plan:: DKA, type 1 DM -DKA protocol, fluid boluses given in the ED. -Patient was on insulin drip, this is now stopped-- he is on sliding scale insulin. -Anion gap was closed earlier this morning , he was eating however, now is open again this evening. Will give fluid bolus increase IV fluid rate and place patient on clear liquids. -Recheck basic metabolic panel in 4 hours, Accu-Checks as ordered. -A1C -Lipid -CDE/dietitian consult -Continue ambulation several times per day -Patient's insulin pump supplies have been out since 10/06/17. He has attempted many phone calls to get renewals, unsuccessfully up to this point. He was trying to manage with sliding scale insulin at home Hypokalemia -Replete and monitor daily Hypomagnesemia -Replete and monitor daily Tachycardia -Patient states he "always has this", asymptomatic -Will check urine drug screen -Try metoprolol 25 mg by mouth twice a day -Will recommend Holter monitor as outpatient Other: GI/DVT prophylax Daily labs and PRN BMP and accuchecks Ambulate CDE/Dietitian CM for assist with DC planning, insulin pump supplies Patient is Full Code status. PCP is Dr. Galicia with [facility]. CDE is Cori Galicia with [facility].
[2017-10-12] MEDS: Metoprolol Tartrate 25 MG Tab PO SCH (21:54)
[2017-10-12] MEDS: Acetaminophen 325 MG Tab PO PRN (22:50)
[2017-10-12] MEDS: Sodium Chloride 0.9% 1,000 ML IV SCH (23:18)
[2017-10-13] MEDS: Sodium Chloride 0.9% 1,000 ML IV SCH ×2 (03:20→07:34)
[2017-10-13] MEDS: Metoprolol Tartrate 25 MG Tab PO SCH ×2 (08:59→20:26)
--- NOTE | 2017-10-13 09:07 | PCM.PN ---
- General Info Date of Service: 10/13/17 Admission Dx/Problem (Free Text): DKA Subjective Update: Polo is seen this morning on rounding, doing well. No c/o pain. No n/v. HR's have been 90's during sleep, up to 130's with ambulation, usually running 110's on tele in NSR. AM labs with worsening of AG to 20. Will restart insulin drip protocol. Functional Status: Reports: Pain Controlled, Ambulating, Urinating. Denies: Tolerating Diet (NPO) - Review of Systems General: Reports: No Symptoms HEENT: Reports: No Symptoms Pulmonary: Reports: No Symptoms. Denies: Shortness of Breath, Cough Cardiovascular: Reports: No Symptoms. Denies: Chest Pain Gastrointestinal: Reports: No Symptoms. Denies: Abdominal Pain, Nausea, Vomiting Musculoskeletal: Reports: No Symptoms Neurological: Reports: No Symptoms - Patient Data Vitals - Most Recent: Last Vital Signs Temp 98.5 F 10/13/17 07:58 Pulse 126 H 10/13/17 08:59 Resp 19 10/13/17 07:58 BP 134/87 10/13/17 08:59 Pulse Ox 100 10/13/17 07:58 Weight - Most Recent: 141 lb 12.8 oz I&O - Last 24 Hours: Intake & Output 10/12/17 10/13/17 10/13/17 22:59 06:59 14:59 Intake Total 4019 3808 Output Total 2400 Balance 1619 3808 Lab Results Last 24 Hours: Laboratory Results - last 24 hr 10/12/17 10/12/17 10/12/17 Range/Units 06:53 09:17 12:15 Sodium (136-145) mEq/L Potassium (3.5-5.1) mEq/L Chloride (98-107) mEq/L Carbon Dioxide (21-32) mEq/L Anion Gap (5-15) BUN (7-18) mg/dL Creatinine (0.7-1.3) mg/dL Est Cr Clr Drug Dosing mL/min Estimated GFR (MDRD) (>60) mL/min BUN/Creatinine Ratio (14-18) Glucose 432 H (74-106) mg/dL POC Glucose 162 H (70-105) mg/dL Hemoglobin A1c 11.30 H (4.50-6.20) % Calcium (8.5-10.1) mg/dL Triglycerides (<150) mg/dL Cholesterol (<200) mg/dL LDL Cholesterol Direct (<100) mg/dL HDL Cholesterol (40-59) mg/dL Urine Color (Yellow) Urine Appearance (Clear) Urine pH (5.0-8.0) Ur Specific [place] (1.005-1.030) Urine Protein (Negative) Urine Glucose (UA) (Negative) Urine Ketones (Negative) Urine Occult Blood (Negative) Urine Nitrite (Negative) Urine Bilirubin (Negative) Urine Urobilinogen (0.2-1.0) Ur Leukocyte Esterase (Negative) Urine RBC (0-5) /hpf Urine WBC (0-5) /hpf Ur Epithelial Cells (0-5) /hpf Urine Bacteria (FEW) /hpf Urine Mucus (FEW) /hpf Urine Opiates Screen (NEGATIVE) Ur Buprenorphine Scrn (NEGATIVE) Ur Oxycodone Screen (NEGATIVE) Urine Methadone Screen (NEGATIVE) Ur Propoxyphene Screen (NEGATIVE) Ur Barbiturates Screen (NEGATIVE) Ur Tricyclics Screen (NEGATIVE) Ur Phencyclidine Scrn (NEGATIVE) Ur Amphetamine Screen (NEGATIVE) U Methamphetamines Scrn (NEGATIVE) U Benzodiazepines Scrn (NEGATIVE) U Cocaine Metab Screen (NEGATIVE) U Marijuana (THC) Screen (NEGATIVE) 10/12/17 10/12/17 10/12/17 Range/Units 13:28 14:15 15:00 Sodium 138 (136-145) mEq/L Potassium 5.0 (3.5-5.1) mEq/L Chloride 103 (98-107) mEq/L Carbon Dioxide 23 (21-32) mEq/L Anion Gap 17.0 H (5-15) BUN 9 (7-18) mg/dL Creatinine 0.8 (0.7-1.3) mg/dL Est Cr Clr Drug Dosing 132.92 mL/min Estimated GFR (MDRD) > 60 (>60) mL/min BUN/Creatinine Ratio 11.3 L (14-18) Glucose 256 H (74-106) mg/dL POC Glucose 390 H 336 H (70-105) mg/dL Hemoglobin A1c (4.50-6.20) % Calcium 8.4 L (8.5-10.1) mg/dL Triglycerides (<150) mg/dL Cholesterol (<200) mg/dL LDL Cholesterol Direct (<100) mg/dL HDL Cholesterol (40-59) mg/dL Urine Color (Yellow) Urine Appearance (Clear) Urine pH (5.0-8.0) Ur Specific [place] (1.005-1.030) Urine Protein (Negative) Urine Glucose (UA) (Negative) Urine Ketones (Negative) Urine Occult Blood (Negative) Urine Nitrite (Negative) Urine Bilirubin (Negative) Urine Urobilinogen (0.2-1.0) Ur Leukocyte Esterase (Negative) Urine RBC (0-5) /hpf Urine WBC (0-5) /hpf Ur Epithelial Cells (0-5) /hpf Urine Bacteria (FEW) /hpf Urine Mucus (FEW) /hpf Urine Opiates Screen (NEGATIVE) Ur Buprenorphine Scrn (NEGATIVE) Ur Oxycodone Screen (NEGATIVE) Urine Methadone Screen (NEGATIVE) Ur Propoxyphene Screen (NEGATIVE) Ur Barbiturates Screen (NEGATIVE) Ur Tricyclics Screen (NEGATIVE) Ur Phencyclidine Scrn (NEGATIVE) Ur Amphetamine Screen (NEGATIVE) U Methamphetamines Scrn (NEGATIVE) U Benzodiazepines Scrn (NEGATIVE) U Cocaine Metab Screen (NEGATIVE) U Marijuana (THC) Screen (NEGATIVE) 10/12/17 10/12/17 10/12/17 Range/Units 17:07 18:47 20:44 Sodium (136-145) mEq/L Potassium (3.5-5.1) mEq/L Chloride (98-107) mEq/L Carbon Dioxide (21-32) mEq/L Anion Gap (5-15) BUN (7-18) mg/dL Creatinine (0.7-1.3) mg/dL Est Cr Clr Drug Dosing mL/min Estimated GFR (MDRD) (>60) mL/min BUN/Creatinine Ratio (14-18) Glucose (74-106) mg/dL POC Glucose 229 H 233 H (70-105) mg/dL Hemoglobin A1c (4.50-6.20) % Calcium (8.5-10.1) mg/dL Triglycerides (<150) mg/dL Cholesterol (<200) mg/dL LDL Cholesterol Direct (<100) mg/dL HDL Cholesterol (40-59) mg/dL Urine Color (Yellow) Urine Appearance (Clear) Urine pH (5.0-8.0) Ur Specific [place] (1.005-1.030) Urine Protein (Negative) Urine Glucose (UA) (Negative) Urine Ketones (Negative) Urine Occult Blood (Negative) Urine Nitrite (Negative) Urine Bilirubin (Negative) Urine Urobilinogen (0.2-1.0) Ur Leukocyte Esterase (Negative) Urine RBC (0-5) /hpf Urine WBC (0-5) /hpf Ur Epithelial Cells (0-5) /hpf Urine Bacteria (FEW) /hpf Urine Mucus (FEW) /hpf Urine Opiates Screen Negative (NEGATIVE) Ur Buprenorphine Scrn Negative (NEGATIVE) Ur Oxycodone Screen Negative (NEGATIVE) Urine Methadone Screen Negative (NEGATIVE) Ur Propoxyphene Screen Negative (NEGATIVE) Ur Barbiturates Screen Negative (NEGATIVE) Ur Tricyclics Screen Negative (NEGATIVE) Ur Phencyclidine Scrn Negative (NEGATIVE) Ur Amphetamine Screen Negative (NEGATIVE) U Methamphetamines Scrn Negative (NEGATIVE) U Benzodiazepines Scrn Negative (NEGATIVE) U Cocaine Metab Screen Negative (NEGATIVE) U Marijuana (THC) Screen Negative (NEGATIVE) 10/12/17 10/12/17 10/12/17 Range/Units 20:44 20:47 20:48 Sodium 138 (136-145) mEq/L Potassium 3.6 (3.5-5.1) mEq/L Chloride 104 (98-107) mEq/L Carbon Dioxide 19 L (21-32) mEq/L Anion Gap 18.6 H (5-15) BUN 8 (7-18) mg/dL Creatinine 0.6 L (0.7-1.3) mg/dL Est Cr Clr Drug Dosing 177.22 mL/min Estimated GFR (MDRD) > 60 (>60) mL/min BUN/Creatinine Ratio 13.3 L (14-18) Glucose 164 H (74-106) mg/dL POC Glucose 138 H (70-105) mg/dL Hemoglobin A1c (4.50-6.20) % Calcium 8.0 L (8.5-10.1) mg/dL Triglycerides (<150) mg/dL Cholesterol (<200) mg/dL LDL Cholesterol Direct (<100) mg/dL HDL Cholesterol (40-59) mg/dL Urine Color Light yellow (Yellow) Urine Appearance Clear (Clear) Urine pH 6.0 (5.0-8.0) Ur Specific [place] 1.025 (1.005-1.030) Urine Protein Negative (Negative) Urine Glucose (UA) 2+ H (Negative) Urine Ketones 2+ H (Negative) Urine Occult Blood Negative (Negative) Urine Nitrite Negative (Negative) Urine Bilirubin Negative (Negative) Urine Urobilinogen 0.2 (0.2-1.0) Ur Leukocyte Esterase Negative (Negative) Urine RBC Not seen (0-5) /hpf Urine WBC Not seen (0-5) /hpf Ur Epithelial Cells 0-5 (0-5) /hpf Urine Bacteria Rare (FEW) /hpf Urine Mucus Not seen (FEW) /hpf Urine Opiates Screen (NEGATIVE) Ur Buprenorphine Scrn (NEGATIVE) Ur Oxycodone Screen (NEGATIVE) Urine Methadone Screen (NEGATIVE) Ur Propoxyphene Screen (NEGATIVE) Ur Barbiturates Screen (NEGATIVE) Ur Tricyclics Screen (NEGATIVE) Ur Phencyclidine Scrn (NEGATIVE) Ur Amphetamine Screen (NEGATIVE) U Methamphetamines Scrn (NEGATIVE) U Benzodiazepines Scrn (NEGATIVE) U Cocaine Metab Screen (NEGATIVE) U Marijuana (THC) Screen (NEGATIVE) 10/12/17 10/13/17 10/13/17 Range/Units 23:20 00:47 01:42 Sodium (136-145) mEq/L Potassium (3.5-5.1) mEq/L Chloride (98-107) mEq/L Carbon Dioxide (21-32) mEq/L Anion Gap (5-15) BUN (7-18) mg/dL Creatinine (0.7-1.3) mg/dL Est Cr Clr Drug Dosing mL/min Estimated GFR (MDRD) (>60) mL/min BUN/Creatinine Ratio (14-18) Glucose (74-106) mg/dL POC Glucose 247 H 214 H 171 H (70-105) mg/dL Hemoglobin A1c (4.50-6.20) % Calcium (8.5-10.1) mg/dL Triglycerides (<150) mg/dL Cholesterol (<200) mg/dL LDL Cholesterol Direct (<100) mg/dL HDL Cholesterol (40-59) mg/dL Urine Color (Yellow) Urine Appearance (Clear) Urine pH (5.0-8.0) Ur Specific [place] (1.005-1.030) Urine Protein (Negative) Urine Glucose (UA) (Negative) Urine Ketones (Negative) Urine Occult Blood (Negative) Urine Nitrite (Negative) Urine Bilirubin (Negative) Urine Urobilinogen (0.2-1.0) Ur Leukocyte Esterase (Negative) Urine RBC (0-5) /hpf Urine WBC (0-5) /hpf Ur Epithelial Cells (0-5) /hpf Urine Bacteria (FEW) /hpf Urine Mucus (FEW) /hpf Urine Opiates Screen (NEGATIVE) Ur Buprenorphine Scrn (NEGATIVE) Ur Oxycodone Screen (NEGATIVE) Urine Methadone Screen (NEGATIVE) Ur Propoxyphene Screen (NEGATIVE) Ur Barbiturates Screen (NEGATIVE) Ur Tricyclics Screen (NEGATIVE) Ur Phencyclidine Scrn (NEGATIVE) Ur Amphetamine Screen (NEGATIVE) U Methamphetamines Scrn (NEGATIVE) U Benzodiazepines Scrn (NEGATIVE) U Cocaine Metab Screen (NEGATIVE) U Marijuana (THC) Screen (NEGATIVE) 10/13/17 10/13/17 10/13/17 Range/Units 02:42 03:42 05:13 Sodium (136-145) mEq/L Potassium (3.5-5.1) mEq/L Chloride (98-107) mEq/L Carbon Dioxide (21-32) mEq/L Anion Gap (5-15) BUN (7-18) mg/dL Creatinine (0.7-1.3) mg/dL Est Cr Clr Drug Dosing mL/min Estimated GFR (MDRD) (>60) mL/min BUN/Creatinine Ratio (14-18) Glucose (74-106) mg/dL POC Glucose 139 H 185 H 263 H (70-105) mg/dL Hemoglobin A1c (4.50-6.20) % Calcium (8.5-10.1) mg/dL Triglycerides (<150) mg/dL Cholesterol (<200) mg/dL LDL Cholesterol Direct (<100) mg/dL HDL Cholesterol (40-59) mg/dL Urine Color (Yellow) Urine Appearance (Clear) Urine pH (5.0-8.0) Ur Specific [place] (1.005-1.030) Urine Protein (Negative) Urine Glucose (UA) (Negative) Urine Ketones (Negative) Urine Occult Blood (Negative) Urine Nitrite (Negative) Urine Bilirubin (Negative) Urine Urobilinogen (0.2-1.0) Ur Leukocyte Esterase (Negative) Urine RBC (0-5) /hpf Urine WBC (0-5) /hpf Ur Epithelial Cells (0-5) /hpf Urine Bacteria (FEW) /hpf Urine Mucus (FEW) /hpf Urine Opiates Screen (NEGATIVE) Ur Buprenorphine Scrn (NEGATIVE) Ur Oxycodone Screen (NEGATIVE) Urine Methadone Screen (NEGATIVE) Ur Propoxyphene Screen (NEGATIVE) Ur Barbiturates Screen (NEGATIVE) Ur Tricyclics Screen (NEGATIVE) Ur Phencyclidine Scrn (NEGATIVE) Ur Amphetamine Screen (NEGATIVE) U Methamphetamines Scrn (NEGATIVE) U Benzodiazepines Scrn (NEGATIVE) U Cocaine Metab Screen (NEGATIVE) U Marijuana (THC) Screen (NEGATIVE) 10/13/17 10/13/17 10/13/17 Range/Units 05:14 05:14 06:24 Sodium 141 (136-145) mEq/L Potassium 3.4 L (3.5-5.1) mEq/L Chloride 106 (98-107) mEq/L Carbon Dioxide 20 L (21-32) mEq/L Anion Gap 18.4 H (5-15) BUN 3 L (7-18) mg/dL Creatinine 0.5 L (0.7-1.3) mg/dL Est Cr Clr Drug Dosing 212.67 mL/min Estimated GFR (MDRD) > 60 (>60) mL/min BUN/Creatinine Ratio 6.0 L (14-18) Glucose 257 H (74-106) mg/dL POC Glucose 344 H (70-105) mg/dL Hemoglobin A1c (4.50-6.20) % Calcium 8.2 L (8.5-10.1) mg/dL Triglycerides 77 (<150) mg/dL Cholesterol 111 (<200) mg/dL LDL Cholesterol Direct 59 (<100) mg/dL HDL Cholesterol 43.0 (40-59) mg/dL Urine Color (Yellow) Urine Appearance (Clear) Urine pH (5.0-8.0) Ur Specific [place] (1.005-1.030) Urine Protein (Negative) Urine Glucose (UA) (Negative) Urine Ketones (Negative) Urine Occult Blood (Negative) Urine Nitrite (Negative) Urine Bilirubin (Negative) Urine Urobilinogen (0.2-1.0) Ur Leukocyte Esterase (Negative) Urine RBC (0-5) /hpf Urine WBC (0-5) /hpf Ur Epithelial Cells (0-5) /hpf Urine Bacteria (FEW) /hpf Urine Mucus (FEW) /hpf Urine Opiates Screen (NEGATIVE) Ur Buprenorphine Scrn (NEGATIVE) Ur Oxycodone Screen (NEGATIVE) Urine Methadone Screen (NEGATIVE) Ur Propoxyphene Screen (NEGATIVE) Ur Barbiturates Screen (NEGATIVE) Ur Tricyclics Screen (NEGATIVE) Ur Phencyclidine Scrn (NEGATIVE) Ur Amphetamine Screen (NEGATIVE) U Methamphetamines Scrn (NEGATIVE) U Benzodiazepines Scrn (NEGATIVE) U Cocaine Metab Screen (NEGATIVE) U Marijuana (THC) Screen (NEGATIVE) 10/13/17 10/13/17 Range/Units 07:45 08:50 Sodium (136-145) mEq/L Potassium (3.5-5.1) mEq/L Chloride (98-107) mEq/L Carbon Dioxide (21-32) mEq/L Anion Gap (5-15) BUN (7-18) mg/dL Creatinine (0.7-1.3) mg/dL Est Cr Clr Drug Dosing mL/min Estimated GFR (MDRD) (>60) mL/min BUN/Creatinine Ratio (14-18) Glucose 448 H (74-106) mg/dL POC Glucose 303 H (70-105) mg/dL Hemoglobin A1c (4.50-6.20) % Calcium (8.5-10.1) mg/dL Triglycerides (<150) mg/dL Cholesterol (<200) mg/dL LDL Cholesterol Direct (<100) mg/dL HDL Cholesterol (40-59) mg/dL Urine Color (Yellow) Urine Appearance (Clear) Urine pH (5.0-8.0) Ur Specific [place] (1.005-1.030) Urine Protein (Negative) Urine Glucose (UA) (Negative) Urine Ketones (Negative) Urine Occult Blood (Negative) Urine Nitrite (Negative) Urine Bilirubin (Negative) Urine Urobilinogen (0.2-1.0) Ur Leukocyte Esterase (Negative) Urine RBC (0-5) /hpf Urine WBC (0-5) /hpf Ur Epithelial Cells (0-5) /hpf Urine Bacteria (FEW) /hpf Urine Mucus (FEW) /hpf Urine Opiates Screen (NEGATIVE) Ur Buprenorphine Scrn (NEGATIVE) Ur Oxycodone Screen (NEGATIVE) Urine Methadone Screen (NEGATIVE) Ur Propoxyphene Screen (NEGATIVE) Ur Barbiturates Screen (NEGATIVE) Ur Tricyclics Screen (NEGATIVE) Ur Phencyclidine Scrn (NEGATIVE) Ur Amphetamine Screen (NEGATIVE) U Methamphetamines Scrn (NEGATIVE) U Benzodiazepines Scrn (NEGATIVE) U Cocaine Metab Screen (NEGATIVE) U Marijuana (THC) Screen (NEGATIVE) Med Orders - Current: Current Medications Acetaminophen (Tylenol) 650 mg PO Q4H PRN PRN Reason: Pain/Fever Last Admin: 10/12/17 22:50 Dose: 650 mg Insulin Human Regular 100 unit (/ Sodium Chloride) 100 mls @ 5 mls/hr IV TITRATE PRINCE; 5 UNIT/HR PRN Reason: Protocol Last Titration: 10/13/17 08:54 Dose: 3 unit/hr, 3 mls/hr Sodium Chloride (Normal Saline) 1,000 mls @ 250 mls/hr IV ASDIRECTED PRINCE Last Admin: 10/13/17 07:34 Dose: 250 mls/hr Insulin Aspart (Novolog) 0 unit SUBCUT QIDACANDBED PRINCE PRN Reason: Protocol Last Admin: 10/12/17 23:23 Dose: 6 units Metoprolol Tartrate (Lopressor) 25 mg PO Q12HR PRINCE Last Admin: 10/13/17 08:59 Dose: 25 mg Ondansetron HCl (Zofran) 4 mg IVPUSH Q8H PRN PRN Reason: Nausea/Vomiting Discontinued Medications Hydromorphone HCl (Dilaudid) 0.5 mg IVPUSH ONETIME ONE Stop: 10/11/17 13:50 Last Admin: 10/11/17 13:58 Dose: 0.5 mg Sodium Chloride (Normal Saline) 1,000 mls @ 999 mls/hr IV ASDIRECTED RPINCE Last Infusion: 10/12/17 09:30 Dose: Infused Potassium Chloride 10 meq/ (Premix) 100 mls @ 100 mls/hr IV ASDIRECTED PRINCE Last Admin: 10/11/17 14:20 Dose: 100 mls/hr Sodium Chloride (Normal Saline) 1,000 mls @ 999 mls/hr IV ASDIRECTED PRINCE Last Admin: 10/11/17 15:59 Dose: 999 mls/hr Sodium Chloride (Normal Saline) 1,000 mls @ 999 mls/hr IV ASDIRECTED PRINCE Sodium Chloride (Normal Saline) 1,000 mls @ 999 mls/hr IV ONETIME ONE Stop: 10/11/17 20:10 Last Admin: 10/11/17 19:44 Dose: 999 mls/hr Insulin Human Regular 100 unit (/ Sodium Chloride) 100 mls @ 328.85 mls/hr IV TITRATE PRINCE; 5 UNITS/KG/HR PRN Reason: Protocol Last Admin: 10/11/17 19:53 Dose: 5 units/kg/hr, 328.85 mls/hr Potassium Chloride/Dextrose/Sod Cl (D5 Ns With 20 Meq Kcl) 1,000 mls @ 250 mls/ hr IV ASDIRECTED PRINCE Dextrose/Water (Dextrose 5% In Water) Confirm Administered Dose 1,000 mls @ as directed .ROUTE .[facility] ONE Stop: 10/11/17 21:44 Last Admin: 10/11/17 22:03 Dose: Not Given Dextrose/Water (Dextrose 5% In Water) 1,000 mls @ 150 mls/hr IV ASDIRECTED PRINCE Last Infusion: 10/12/17 09:27 Dose: 0 mls/hr Sodium Chloride (Normal Saline) 1,000 mls @ 75 mls/hr IV ASDIRECTED PRINCE Last Infusion: 10/12/17 17:48 Dose: 999 mls/hr Magnesium Sulfate 2 gm/ Premix 50 mls @ 25 mls/hr IV ONETIME ONE Stop: 10/12/17 12:09 Last Admin: 10/12/17 10:58 Dose: 25 mls/hr Sodium Chloride (Normal Saline) 1,000 mls @ 999 mls/hr IV ONETIME ONE Stop: 10/12/17 18:42 Last Admin: 10/12/17 18:44 Dose: 200 mls/hr Sodium Chloride (Normal Saline) 1,000 mls @ 999 mls/hr IV ONETIME ONE Stop: 10/12/17 22:49 Last Admin: 10/12/17 21:57 Dose: 999 mls/hr Insulin Aspart (Novolog) 0 unit SUBCUT QIDACANDBED [facility] PRN Reason: Protocol Last Admin: 10/12/17 06:59 Dose: Not Given Insulin Human Regular (Humulin R) 5 unit SUBCUT ONETIME ONE PRN Reason: Protocol Stop: 10/12/17 16:25 Insulin Human Regular (Humulin R) Confirm Administered Dose 300 unit .ROUTE .[facility] ONE Stop: 10/11/17 16:48 Last Admin: 10/11/17 16:49 Dose: 5 units Insulin Human Regular (Humulin R) 5 unit SUBCUT ONETIME ONE PRN Reason: Protocol Stop: 10/11/17 16:25 Last Admin: 10/11/17 19:29 Dose: Not Given Metoclopramide HCl (Reglan) 7.5 mg IVPUSH ONETIME ONE Stop: 10/11/17 13:50 Last Admin: 10/11/17 13:58 Dose: 7.5 mg Ondansetron HCl (Zofran) 4 mg IVPUSH ONETIME ONE Stop: 10/11/17 17:40 Last Admin: 10/11/17 17:55 Dose: 4 mg Potassium Chloride (Potassium Chloride) 40 meq PO ONETIME ONE Stop: 10/12/17 10:12 Last Admin: 10/12/17 10:48 Dose: Not Given Potassium Chloride (Klor-Con M20) 40 meq PO ONETIME ONE Stop: 10/12/17 10:48 Last Admin: 10/12/17 10:52 Dose: 40 meq - Exam Quality Assessment: DVT Prophylaxis General: Alert, Oriented, Cooperative, No Acute Distress HEENT: Pupils Equal, EOMI, Mucous Membr. Moist/[place] Neck: Supple Lungs: Clear to Auscultation, Normal Respiratory Effort Cardiovascular: Regular Rate, Regular Rhythm, Tachycardia (90-120's this morning ) GI/Abdominal Exam: Normal Bowel Sounds, Soft, Non-Tender (Male) Exam: Deferred Extremities: No Pedal Edema, Normal Capillary Refill Neurological: No New Focal Deficit Psy/Mental Status: Alert, Normal Affect, Normal Mood - Problem List & Annotations (1) DKA, type 1 SNOMED Code(s): 388181597 Code(s): E10.10 - TYPE 1 DIABETES MELLITUS WITH KETOACIDOSIS WITHOUT COMA Status: Acute Priority: High Current Visit: Yes Qualifiers: Diabetes mellitus complication detail: without coma Qualified Code(s): E10.10 - Type 1 diabetes mellitus with ketoacidosis without coma (2) Dehydration SNOMED Code(s): 69498409 Code(s): E86.0 - DEHYDRATION Status: Acute Priority: High Current Visit : Yes (3) Tachycardia SNOMED Code(s): 3169938 Code(s): R00.0 - TACHYCARDIA, UNSPECIFIED Status: Acute Priority: High Current Visit: Yes (4) Hypokalemia SNOMED Code(s): 30127985 Code(s): E87.6 - HYPOKALEMIA Status: Acute Priority: High Current Visit : Yes (5) Hypomagnesemia SNOMED Code(s): 451365423 Code(s): E83.42 - HYPOMAGNESEMIA Status: Acute Priority: High Current Visit: Yes - Problem List Review Problem List Initiated/Reviewed/Updated: Yes - My Orders Last 24 Hours: My Active Orders 10/12/17 17:44 Consult to Diabetic Nurse Specialist [CONS] Routine 10/12/17 20:02 Consult to [place] [CONS] Routine 10/12/17 21:00 Metoprolol Tartrate [Lopressor] 25 mg PO Q12HR 10/12/17 23:15 Sodium Chloride 0.9% [Normal Saline] 1,000 ml IV ASDIRECTED 10/13/17 Breakfast NPO [Nothing Per Oral Diet] [DIET] - Plan Plan:: DKA, type 1 DM -DKA protocol, fluid boluses given in the ED. -Patient was on insulin drip, stopped and now gap is open at 20 again his morning- restart insulin drip this morning -NPO -Recheck basic metabolic panel in 4 hours, Accu-Checks as ordered. -A1C -Lipid -CDE/dietitian consult -Continue ambulation several times per day -Patient's insulin pump supplies have been out since 10/06/17. He has attempted many phone calls to get renewals, unsuccessfully up to this point. He was trying to manage with sliding scale insulin at home Hypokalemia -Replete and monitor daily Hypomagnesemia -Replete and monitor daily Tachycardia -Patient states he "always has this", asymptomatic -Will check urine drug screen -- negative -Try metoprolol 25 mg by mouth twice a day -Will recommend Holter monitor as outpatient -Echo ordered today Other: GI/DVT prophylax Daily labs and PRN BMP and accuchecks Ambulate CDE/Dietitian CM for assist with DC planning, insulin pump supplies Patient is Full Code status. PCP is Dr. Galicia with [facility]. CDE is Cori Galicia with [facility].
[2017-10-13] MEDS: Insulin Aspart 100 Units/ML 3 ML Pen SUBCUT SCH ×4 (10:07→22:13)
[2017-10-13] MEDS: Potassium Chloride 10 MEQ in Premix Bag 1 BAG IV SCH ×4 (10:24→13:45)
[2017-10-13] MEDS ORDERED: Dextrose 5%-0.9% NaCl 1,000 ML ONE (11:29)
[2017-10-13] MEDS ORDERED: Dextrose 5%-0.9% NaCl 1,000 ML IV SCH (11:30)
[2017-10-13] MEDS ORDERED: Magnesium Sulfate/Water 4 GM in Premix Bag 1 BAG IV ONE ×2 (13:08→15:00)
[2017-10-13] MEDS: Dextrose 5%-0.9% NaCl 1,000 ML IV SCH (19:36)
[2017-10-13] MEDS ORDERED: Potassium Chloride 20 MEQ Tab.ER PO ONE (19:53)
[2017-10-13] MEDS ORDERED: Magnesium Sulfate/Water 2 GM in Premix Bag 1 BAG IV ONE (20:22)
[2017-10-14] MEDS: Dextrose 5%-0.9% NaCl 1,000 ML IV SCH (02:19)
[2017-10-14] MEDS: Insulin Aspart 100 Units/ML 3 ML Pen SUBCUT SCH ×3 (09:12→17:32)
[2017-10-14] MEDS: Magnesium Oxide 400 MG Tab PO SCH ×2 (09:12→20:47)
[2017-10-14] MEDS: Potassium Chloride 20 MEQ Tab.ER PO SCH ×2 (09:12→20:51)
[2017-10-14] MEDS: Metoprolol Tartrate 50 MG Tab PO SCH ×2 (09:12→20:47)
--- NOTE | 2017-10-14 09:56 | PCM.PN ---
- General Info Date of Service: 10/14/17 Admission Dx/Problem (Free Text): Polo is seen this morning. He is ambulating about the unit. He slept well last evening. He's been nothing by mouth. Anion gap this morning is 13. He was given crackers and will be placed on clear liquid diet for lunch. Accu- Cheks every hour and insulin drip will be discontinued 30 minutes after he is given the crackers. Protocol is being followed. Heart rates remained 90s to 100s, I did increase his metoprolol to 50 mg twice a day from 25 mg twice a day he is asymptomatic from tachycardia/palpitations standpoint. He voices no complaints of pain. No abdominal pain no nausea vomiting diarrhea. Functional Status: Reports: Pain Controlled (none), Ambulating, Urinating - Review of Systems General: Reports: No Symptoms HEENT: Reports: No Symptoms Pulmonary: Reports: No Symptoms Cardiovascular: Reports: No Symptoms Gastrointestinal: Reports: No Symptoms. Denies: Abdominal Pain, Nausea, Vomiting Genitourinary: Reports: No Symptoms Musculoskeletal: Reports: No Symptoms Skin: Reports: No Symptoms Neurological: Reports: No Symptoms Psychiatric: Reports: No Symptoms - Patient Data Vitals - Most Recent: Last Vital Signs Temp 97.6 F 10/14/17 08:00 Pulse 104 H 10/14/17 09:12 Resp 16 10/14/17 08:00 BP 134/94 H 10/14/17 09:12 Pulse Ox 100 10/14/17 08:00 Weight - Most Recent: 135 lb 9.6 oz I&O - Last 24 Hours: Intake & Output 10/13/17 10/14/17 10/14/17 22:59 06:59 14:59 Intake Total 2771 2176 700 Output Total 1800 450 Balance 971 2176 250 Lab Results Last 24 Hours: Laboratory Results - last 24 hr 10/13/17 10/13/17 10/13/17 Range/Units 05:14 09:58 09:58 WBC (4.23-9.07) K/mm3 RBC (4.63-6.08) M/mm3 Hgb (13.7-17.5) gm/L Hct (40.1-51.0) % MCV (79.0-92.2) fl MCH (25.7-32.2) pg MCHC (32.2-35.5) g/dl RDW Std Deviation (35.1-43.9) fL Plt Count (163-337) K/mm3 MPV (9.4-12.3) fl Neut % (Auto) (34.0-67.9) % Lymph % (Auto) (21.8-53.1) % [place] % (Auto) (5.3-12.2) % Eos % (Auto) (0.8-7.0) Baso % (Auto) (0.1-1.2) % Neut # (Auto) (1.78-5.38) K/mm3 Lymph # (Auto) (1.32-3.57) K/mm3 [place] # (Auto) (0.30-0.82) K/mm3 Eos # (Auto) (0.04-0.54) K/mm3 Baso # (Auto) (0.01-0.08) K/mm3 Manual Slide Review Sodium 138 (136-145) mEq/L Potassium 3.3 L (3.5-5.1) mEq/L Chloride 103 (98-107) mEq/L Carbon Dioxide 18 L (21-32) mEq/L Anion Gap 20.3 H (5-15) BUN 5 L (7-18) mg/dL Creatinine 0.9 (0.7-1.3) mg/dL Est Cr Clr Drug Dosing 118.15 mL/min Estimated GFR (MDRD) > 60 (>60) mL/min BUN/Creatinine Ratio 5.6 L (14-18) Glucose 237 H (74-106) mg/dL POC Glucose 252 H (70-105) mg/dL Hemoglobin A1c 11.40 H (4.50-6.20) % Calcium 8.4 L (8.5-10.1) mg/dL Magnesium (1.8-2.4) mg/dl 10/13/17 10/13/17 10/13/17 Range/Units 11:12 12:38 13:40 WBC (4.23-9.07) K/mm3 RBC (4.63-6.08) M/mm3 Hgb (13.7-17.5) gm/L Hct (40.1-51.0) % MCV (79.0-92.2) fl MCH (25.7-32.2) pg MCHC (32.2-35.5) g/dl RDW Std Deviation (35.1-43.9) fL Plt Count (163-337) K/mm3 MPV (9.4-12.3) fl Neut % (Auto) (34.0-67.9) % Lymph % (Auto) (21.8-53.1) % [place] % (Auto) (5.3-12.2) % Eos % (Auto) (0.8-7.0) Baso % (Auto) (0.1-1.2) % Neut # (Auto) (1.78-5.38) K/mm3 Lymph # (Auto) (1.32-3.57) K/mm3 [place] # (Auto) (0.30-0.82) K/mm3 Eos # (Auto) (0.04-0.54) K/mm3 Baso # (Auto) (0.01-0.08) K/mm3 Manual Slide Review Sodium (136-145) mEq/L Potassium (3.5-5.1) mEq/L Chloride (98-107) mEq/L Carbon Dioxide (21-32) mEq/L Anion Gap (5-15) BUN (7-18) mg/dL Creatinine (0.7-1.3) mg/dL Est Cr Clr Drug Dosing mL/min Estimated GFR (MDRD) (>60) mL/min BUN/Creatinine Ratio (14-18) Glucose (74-106) mg/dL POC Glucose 144 H 130 H 185 H (70-105) mg/dL Hemoglobin A1c (4.50-6.20) % Calcium (8.5-10.1) mg/dL Magnesium (1.8-2.4) mg/dl 10/13/17 10/13/17 10/13/17 Range/Units 14:10 14:10 14:51 WBC (4.23-9.07) K/mm3 RBC (4.63-6.08) M/mm3 Hgb (13.7-17.5) gm/L Hct (40.1-51.0) % MCV (79.0-92.2) fl MCH (25.7-32.2) pg MCHC (32.2-35.5) g/dl RDW Std Deviation (35.1-43.9) fL Plt Count (163-337) K/mm3 MPV (9.4-12.3) fl Neut % (Auto) (34.0-67.9) % Lymph % (Auto) (21.8-53.1) % [place] % (Auto) (5.3-12.2) % Eos % (Auto) (0.8-7.0) Baso % (Auto) (0.1-1.2) % Neut # (Auto) (1.78-5.38) K/mm3 Lymph # (Auto) (1.32-3.57) K/mm3 [place] # (Auto) (0.30-0.82) K/mm3 Eos # (Auto) (0.04-0.54) K/mm3 Baso # (Auto) (0.01-0.08) K/mm3 Manual Slide Review Sodium 137 (136-145) mEq/L Potassium 5.0 (3.5-5.1) mEq/L Chloride 103 (98-107) mEq/L Carbon Dioxide 21 (21-32) mEq/L Anion Gap 18.0 H (5-15) BUN 3 L (7-18) mg/dL Creatinine 0.7 (0.7-1.3) mg/dL Est Cr Clr Drug Dosing 151.90 mL/min Estimated GFR (MDRD) > 60 (>60) mL/min BUN/Creatinine Ratio 4.3 L (14-18) Glucose 228 H (74-106) mg/dL POC Glucose 246 H (70-105) mg/dL Hemoglobin A1c (4.50-6.20) % Calcium 8.5 (8.5-10.1) mg/dL Magnesium 1.6 L (1.8-2.4) mg/dl 10/13/17 10/13/17 10/13/17 Range/Units 15:52 16:59 18:04 WBC (4.23-9.07) K/mm3 RBC (4.63-6.08) M/mm3 Hgb (13.7-17.5) gm/L Hct (40.1-51.0) % MCV (79.0-92.2) fl MCH (25.7-32.2) pg MCHC (32.2-35.5) g/dl RDW Std Deviation (35.1-43.9) fL Plt Count (163-337) K/mm3 MPV (9.4-12.3) fl Neut % (Auto) (34.0-67.9) % Lymph % (Auto) (21.8-53.1) % [place] % (Auto) (5.3-12.2) % Eos % (Auto) (0.8-7.0) Baso % (Auto) (0.1-1.2) % Neut # (Auto) (1.78-5.38) K/mm3 Lymph # (Auto) (1.32-3.57) K/mm3 [place] # (Auto) (0.30-0.82) K/mm3 Eos # (Auto) (0.04-0.54) K/mm3 Baso # (Auto) (0.01-0.08) K/mm3 Manual Slide Review Sodium (136-145) mEq/L Potassium (3.5-5.1) mEq/L Chloride (98-107) mEq/L Carbon Dioxide (21-32) mEq/L Anion Gap (5-15) BUN (7-18) mg/dL Creatinine (0.7-1.3) mg/dL Est Cr Clr Drug Dosing mL/min Estimated GFR (MDRD) (>60) mL/min BUN/Creatinine Ratio (14-18) Glucose (74-106) mg/dL POC Glucose 302 H 220 H 177 H (70-105) mg/dL Hemoglobin A1c (4.50-6.20) % Calcium (8.5-10.1) mg/dL Magnesium (1.8-2.4) mg/dl 10/13/17 10/13/17 10/13/17 Range/Units 18:42 18:58 20:03 WBC (4.23-9.07) K/mm3 RBC (4.63-6.08) M/mm3 Hgb (13.7-17.5) gm/L Hct (40.1-51.0) % MCV (79.0-92.2) fl MCH (25.7-32.2) pg MCHC (32.2-35.5) g/dl RDW Std Deviation (35.1-43.9) fL Plt Count (163-337) K/mm3 MPV (9.4-12.3) fl Neut % (Auto) (34.0-67.9) % Lymph % (Auto) (21.8-53.1) % [place] % (Auto) (5.3-12.2) % Eos % (Auto) (0.8-7.0) Baso % (Auto) (0.1-1.2) % Neut # (Auto) (1.78-5.38) K/mm3 Lymph # (Auto) (1.32-3.57) K/mm3 [place] # (Auto) (0.30-0.82) K/mm3 Eos # (Auto) (0.04-0.54) K/mm3 Baso # (Auto) (0.01-0.08) K/mm3 Manual Slide Review Sodium 139 (136-145) mEq/L Potassium 3.4 L (3.5-5.1) mEq/L Chloride 105 (98-107) mEq/L Carbon Dioxide 18 L (21-32) mEq/L Anion Gap 19.4 H (5-15) BUN 3 L (7-18) mg/dL Creatinine 0.7 (0.7-1.3) mg/dL Est Cr Clr Drug Dosing 151.90 mL/min Estimated GFR (MDRD) > 60 (>60) mL/min BUN/Creatinine Ratio 4.3 L (14-18) Glucose 200 H (74-106) mg/dL POC Glucose 172 H 138 H (70-105) mg/dL Hemoglobin A1c (4.50-6.20) % Calcium 8.2 L (8.5-10.1) mg/dL Magnesium (1.8-2.4) mg/dl 10/13/17 10/13/17 10/13/17 Range/Units 20:52 22:09 22:48 WBC (4.23-9.07) K/mm3 RBC (4.63-6.08) M/mm3 Hgb (13.7-17.5) gm/L Hct (40.1-51.0) % MCV (79.0-92.2) fl MCH (25.7-32.2) pg MCHC (32.2-35.5) g/dl RDW Std Deviation (35.1-43.9) fL Plt Count (163-337) K/mm3 MPV (9.4-12.3) fl Neut % (Auto) (34.0-67.9) % Lymph % (Auto) (21.8-53.1) % [place] % (Auto) (5.3-12.2) % Eos % (Auto) (0.8-7.0) Baso % (Auto) (0.1-1.2) % Neut # (Auto) (1.78-5.38) K/mm3 Lymph # (Auto) (1.32-3.57) K/mm3 [place] # (Auto) (0.30-0.82) K/mm3 Eos # (Auto) (0.04-0.54) K/mm3 Baso # (Auto) (0.01-0.08) K/mm3 Manual Slide Review Sodium 140 (136-145) mEq/L Potassium 3.5 (3.5-5.1) mEq/L Chloride 106 (98-107) mEq/L Carbon Dioxide 22 (21-32) mEq/L Anion Gap 15.5 H (5-15) BUN 3 L (7-18) mg/dL Creatinine 0.7 (0.7-1.3) mg/dL Est Cr Clr Drug Dosing 151.90 mL/min Estimated GFR (MDRD) > 60 (>60) mL/min BUN/Creatinine Ratio 4.3 L (14-18) Glucose 119 H (74-106) mg/dL POC Glucose 129 H 103 (70-105) mg/dL Hemoglobin A1c (4.50-6.20) % Calcium 8.2 L (8.5-10.1) mg/dL Magnesium (1.8-2.4) mg/dl 10/13/17 10/14/17 10/14/17 Range/Units 23:10 00:10 01:16 WBC (4.23-9.07) K/mm3 RBC (4.63-6.08) M/mm3 Hgb (13.7-17.5) gm/L Hct (40.1-51.0) % MCV (79.0-92.2) fl MCH (25.7-32.2) pg MCHC (32.2-35.5) g/dl RDW Std Deviation (35.1-43.9) fL Plt Count (163-337) K/mm3 MPV (9.4-12.3) fl Neut % (Auto) (34.0-67.9) % Lymph % (Auto) (21.8-53.1) % [place] % (Auto) (5.3-12.2) % Eos % (Auto) (0.8-7.0) Baso % (Auto) (0.1-1.2) % Neut # (Auto) (1.78-5.38) K/mm3 Lymph # (Auto) (1.32-3.57) K/mm3 [place] # (Auto) (0.30-0.82) K/mm3 Eos # (Auto) (0.04-0.54) K/mm3 Baso # (Auto) (0.01-0.08) K/mm3 Manual Slide Review Sodium (136-145) mEq/L Potassium (3.5-5.1) mEq/L Chloride (98-107) mEq/L Carbon Dioxide (21-32) mEq/L Anion Gap (5-15) BUN (7-18) mg/dL Creatinine (0.7-1.3) mg/dL Est Cr Clr Drug Dosing mL/min Estimated GFR (MDRD) (>60) mL/min BUN/Creatinine Ratio (14-18) Glucose (74-106) mg/dL POC Glucose 116 H 130 H 148 H (70-105) mg/dL Hemoglobin A1c (4.50-6.20) % Calcium (8.5-10.1) mg/dL Magnesium (1.8-2.4) mg/dl 10/14/17 10/14/17 10/14/17 Range/Units 02:19 02:30 03:59 WBC (4.23-9.07) K/mm3 RBC (4.63-6.08) M/mm3 Hgb (13.7-17.5) gm/L Hct (40.1-51.0) % MCV (79.0-92.2) fl MCH (25.7-32.2) pg MCHC (32.2-35.5) g/dl RDW Std Deviation (35.1-43.9) fL Plt Count (163-337) K/mm3 MPV (9.4-12.3) fl Neut % (Auto) (34.0-67.9) % Lymph % (Auto) (21.8-53.1) % [place] % (Auto) (5.3-12.2) % Eos % (Auto) (0.8-7.0) Baso % (Auto) (0.1-1.2) % Neut # (Auto) (1.78-5.38) K/mm3 Lymph # (Auto) (1.32-3.57) K/mm3 [place] # (Auto) (0.30-0.82) K/mm3 Eos # (Auto) (0.04-0.54) K/mm3 Baso # (Auto) (0.01-0.08) K/mm3 Manual Slide Review Sodium 139 (136-145) mEq/L Potassium 3.6 (3.5-5.1) mEq/L Chloride 107 (98-107) mEq/L Carbon Dioxide 20 L (21-32) mEq/L Anion Gap 15.6 H (5-15) BUN 3 L (7-18) mg/dL Creatinine 0.7 (0.7-1.3) mg/dL Est Cr Clr Drug Dosing TNP mL/min Estimated GFR (MDRD) > 60 (>60) mL/min BUN/Creatinine Ratio 4.3 L (14-18) Glucose 147 H (74-106) mg/dL POC Glucose 128 H 138 H (70-105) mg/dL Hemoglobin A1c (4.50-6.20) % Calcium 7.9 L (8.5-10.1) mg/dL Magnesium (1.8-2.4) mg/dl 10/14/17 10/14/17 10/14/17 Range/Units 04:53 06:05 06:35 WBC 4.65 (4.23-9.07) K/mm3 RBC 4.02 L (4.63-6.08) M/mm3 Hgb 11.8 L (13.7-17.5) gm/L Hct 32.4 L (40.1-51.0) % MCV 80.5 (79.0-92.2) fl MCH 29.4 (25.7-32.2) pg MCHC 36.4 H (32.2-35.5) g/dl RDW Std Deviation 38.1 (35.1-43.9) fL Plt Count 198 (163-337) K/mm3 MPV 9.3 L (9.4-12.3) fl Neut % (Auto) 48.1 (34.0-67.9) % Lymph % (Auto) 42.2 (21.8-53.1) % [place] % (Auto) 8.2 (5.3-12.2) % Eos % (Auto) 1.1 (0.8-7.0) Baso % (Auto) 0.4 (0.1-1.2) % Neut # (Auto) 2.24 (1.78-5.38) K/mm3 Lymph # (Auto) 1.96 (1.32-3.57) K/mm3 [place] # (Auto) 0.38 (0.30-0.82) K/mm3 Eos # (Auto) 0.05 (0.04-0.54) K/mm3 Baso # (Auto) 0.02 (0.01-0.08) K/mm3 Manual Slide Review Normal smear Sodium (136-145) mEq/L Potassium (3.5-5.1) mEq/L Chloride (98-107) mEq/L Carbon Dioxide (21-32) mEq/L Anion Gap (5-15) BUN (7-18) mg/dL Creatinine (0.7-1.3) mg/dL Est Cr Clr Drug Dosing mL/min Estimated GFR (MDRD) (>60) mL/min BUN/Creatinine Ratio (14-18) Glucose (74-106) mg/dL POC Glucose 142 H 119 H (70-105) mg/dL Hemoglobin A1c (4.50-6.20) % Calcium (8.5-10.1) mg/dL Magnesium (1.8-2.4) mg/dl 10/14/17 10/14/17 10/14/17 Range/Units 06:35 06:52 08:00 WBC (4.23-9.07) K/mm3 RBC (4.63-6.08) M/mm3 Hgb (13.7-17.5) gm/L Hct (40.1-51.0) % MCV (79.0-92.2) fl MCH (25.7-32.2) pg MCHC (32.2-35.5) g/dl RDW Std Deviation (35.1-43.9) fL Plt Count (163-337) K/mm3 MPV (9.4-12.3) fl Neut % (Auto) (34.0-67.9) % Lymph % (Auto) (21.8-53.1) % [place] % (Auto) (5.3-12.2) % Eos % (Auto) (0.8-7.0) Baso % (Auto) (0.1-1.2) % Neut # (Auto) (1.78-5.38) K/mm3 Lymph # (Auto) (1.32-3.57) K/mm3 [place] # (Auto) (0.30-0.82) K/mm3 Eos # (Auto) (0.04-0.54) K/mm3 Baso # (Auto) (0.01-0.08) K/mm3 Manual Slide Review Sodium 142 (136-145) mEq/L Potassium 3.4 L (3.5-5.1) mEq/L Chloride 109 H (98-107) mEq/L Carbon Dioxide 23 (21-32) mEq/L Anion Gap 13.4 (5-15) BUN 2 L (7-18) mg/dL Creatinine 0.6 L (0.7-1.3) mg/dL Est Cr Clr Drug Dosing 170.85 mL/min Estimated GFR (MDRD) > 60 (>60) mL/min BUN/Creatinine Ratio 3.3 L (14-18) Glucose 142 H (74-106) mg/dL POC Glucose 135 H 145 H (70-105) mg/dL Hemoglobin A1c (4.50-6.20) % Calcium 8.1 L (8.5-10.1) mg/dL Magnesium 1.7 L (1.8-2.4) mg/dl 10/14/17 Range/Units 08:58 WBC (4.23-9.07) K/mm3 RBC (4.63-6.08) M/mm3 Hgb (13.7-17.5) gm/L Hct (40.1-51.0) % MCV (79.0-92.2) fl MCH (25.7-32.2) pg MCHC (32.2-35.5) g/dl RDW Std Deviation (35.1-43.9) fL Plt Count (163-337) K/mm3 MPV (9.4-12.3) fl Neut % (Auto) (34.0-67.9) % Lymph % (Auto) (21.8-53.1) % [place] % (Auto) (5.3-12.2) % Eos % (Auto) (0.8-7.0) Baso % (Auto) (0.1-1.2) % Neut # (Auto) (1.78-5.38) K/mm3 Lymph # (Auto) (1.32-3.57) K/mm3 [place] # (Auto) (0.30-0.82) K/mm3 Eos # (Auto) (0.04-0.54) K/mm3 Baso # (Auto) (0.01-0.08) K/mm3 Manual Slide Review Sodium (136-145) mEq/L Potassium (3.5-5.1) mEq/L Chloride (98-107) mEq/L Carbon Dioxide (21-32) mEq/L Anion Gap (5-15) BUN (7-18) mg/dL Creatinine (0.7-1.3) mg/dL Est Cr Clr Drug Dosing mL/min Estimated GFR (MDRD) (>60) mL/min BUN/Creatinine Ratio (14-18) Glucose (74-106) mg/dL POC Glucose 122 H (70-105) mg/dL Hemoglobin A1c (4.50-6.20) % Calcium (8.5-10.1) mg/dL Magnesium (1.8-2.4) mg/dl Med Orders - Current: Current Medications Acetaminophen (Tylenol) 650 mg PO Q4H PRN PRN Reason: Pain/Fever Last Admin: 10/12/17 22:50 Dose: 650 mg Dextrose/Sodium Chloride (Dextrose 5%-Normal Saline) 1,000 mls @ 150 mls/hr IV ASDIRECTED PRINCE Last Admin: 10/14/17 02:19 Dose: 150 mls/hr Insulin Human Regular 100 unit (/ Sodium Chloride) 100 mls @ 0.1 mls/hr IV TITRATE PRINCE; 0.1 UNIT/HR PRN Reason: Protocol Last Titration: 10/14/17 08:30 Dose: 0 unit/hr, 0 mls/hr Insulin Aspart (Novolog) 0 unit SUBCUT QIDACANDBED PRINCE PRN Reason: Protocol Last Admin: 10/14/17 09:12 Dose: Not Given Magnesium Oxide (Magnesium Oxide) 400 mg PO BID [facility] Last Admin: 10/14/17 09:12 Dose: 400 mg Metoprolol Tartrate (Lopressor) 50 mg PO Q12HR [facility] Last Admin: 10/14/17 09:12 Dose: 50 mg Ondansetron HCl (Zofran) 4 mg IVPUSH Q8H PRN PRN Reason: Nausea/Vomiting Potassium Chloride (Klor-Con M20) 40 meq PO BID [facility] Last Admin: 10/14/17 09:12 Dose: 40 meq Discontinued Medications Hydromorphone HCl (Dilaudid) 0.5 mg IVPUSH ONETIME ONE Stop: 10/11/17 13:50 Last Admin: 10/11/17 13:58 Dose: 0.5 mg Sodium Chloride (Normal Saline) 1,000 mls @ 999 mls/hr IV ASDIRECTED [facility] Last Infusion: 10/12/17 09:30 Dose: Infused Potassium Chloride 10 meq/ (Premix) 100 mls @ 100 mls/hr IV ASDIRECTED [facility] Last Admin: 10/11/17 14:20 Dose: 100 mls/hr Sodium Chloride (Normal Saline) 1,000 mls @ 999 mls/hr IV ASDIRECTED PRINCE Last Admin: 10/11/17 15:59 Dose: 999 mls/hr Sodium Chloride (Normal Saline) 1,000 mls @ 999 mls/hr IV ASDIRECTED [facility] Sodium Chloride (Normal Saline) 1,000 mls @ 999 mls/hr IV ONETIME ONE Stop: 10/11/17 20:10 Last Admin: 10/11/17 19:44 Dose: 999 mls/hr Insulin Human Regular 100 unit (/ Sodium Chloride) 100 mls @ 328.85 mls/hr IV TITRATE PRINCE; 5 UNITS/KG/HR PRN Reason: Protocol Last Admin: 10/11/17 19:53 Dose: 5 units/kg/hr, 328.85 mls/hr Insulin Human Regular 100 unit (/ Sodium Chloride) 100 mls @ 5 mls/hr IV TITRATE PRINCE; 5 UNIT/HR PRN Reason: Protocol Last Titration: 10/13/17 19:11 Dose: 2.9 unit/hr, 2.9 mls/hr Potassium Chloride/Dextrose/Sod Cl (D5 Ns With 20 Meq Kcl) 1,000 mls @ 250 mls/ hr IV ASDIRECTED PRINCE Dextrose/Water (Dextrose 5% In Water) Confirm Administered Dose 1,000 mls @ as directed .ROUTE .[facility] ONE Stop: 10/11/17 21:44 Last Admin: 10/11/17 22:03 Dose: Not Given Dextrose/Water (Dextrose 5% In Water) 1,000 mls @ 150 mls/hr IV ASDIRECTED PRINCE Last Infusion: 10/12/17 09:27 Dose: 0 mls/hr Sodium Chloride (Normal Saline) 1,000 mls @ 75 mls/hr IV ASDIRECTED PRINCE Last Infusion: 10/12/17 17:48 Dose: 999 mls/hr Magnesium Sulfate 2 gm/ Premix 50 mls @ 25 mls/hr IV ONETIME ONE Stop: 10/12/17 12:09 Last Admin: 10/12/17 10:58 Dose: 25 mls/hr Sodium Chloride (Normal Saline) 1,000 mls @ 999 mls/hr IV ONETIME ONE Stop: 10/12/17 18:42 Last Admin: 10/12/17 18:44 Dose: 200 mls/hr Sodium Chloride (Normal Saline) 1,000 mls @ 999 mls/hr IV ONETIME ONE Stop: 10/12/17 22:49 Last Admin: 10/12/17 21:57 Dose: 999 mls/hr Sodium Chloride (Normal Saline) 1,000 mls @ 250 mls/hr IV ASDIRECTED PRINCE Last Admin: 10/13/17 07:34 Dose: 250 mls/hr Potassium Chloride 10 meq/ (Premix) 100 mls @ 100 mls/hr IV Q1H PRINCE Stop: 10/13/17 13:14 Last Admin: 10/13/17 13:45 Dose: 100 mls/hr Dextrose/Sodium Chloride (Dextrose 5%-Normal Saline) Confirm Administered Dose 1 ,000 mls @ as directed .ROUTE .[facility] ONE Stop: 10/13/17 11:30 Last Admin: 10/13/17 11:38 Dose: 150 ml Dextrose/Sodium Chloride (Dextrose 5%-Normal Saline) 1,000 mls @ 150 mls/hr IV ASDIRECTED PRINCE Magnesium Sulfate 4 gm/ Premix 100 mls @ 100 mls/hr IV ONETIME ONE Stop: 10/13/17 14:07 Last Admin: 10/13/17 14:44 Dose: 25 mls/hr Magnesium Sulfate 4 gm/ Premix 100 mls @ 25 mls/hr IV ONETIME ONE Stop: 10/13/17 18:59 Last Admin: 10/13/17 15:32 Dose: Not Given Insulin Human Regular 100 unit (/ Sodium Chloride) 100 mls @ 6.57 mls/hr IV TITRATE PRINCE; 0.1 UNITS/KG/HR PRN Reason: Protocol Last Admin: 10/14/17 00:12 Dose: 1.5 units/kg/hr, 98.65 mls/hr Magnesium Sulfate 2 gm/ Premix 50 mls @ 25 mls/hr IV ONETIME ONE Stop: 10/13/17 22:21 Last Admin: 10/13/17 21:07 Dose: 25 mls/hr Insulin Aspart (Novolog) 0 unit SUBCUT QIDACANDBED [facility] PRN Reason: Protocol Last Admin: 10/12/17 06:59 Dose: Not Given Insulin Human Regular (Humulin R) 5 unit SUBCUT ONETIME ONE PRN Reason: Protocol Stop: 10/12/17 16:25 Insulin Human Regular (Humulin R) Confirm Administered Dose 300 unit .ROUTE .STK -MED ONE Stop: 10/11/17 16:48 Last Admin: 10/11/17 16:49 Dose: 5 units Insulin Human Regular (Humulin R) 5 unit SUBCUT ONETIME ONE PRN Reason: Protocol Stop: 10/11/17 16:25 Last Admin: 10/11/17 19:29 Dose: Not Given Metoclopramide HCl (Reglan) 7.5 mg IVPUSH ONETIME ONE Stop: 10/11/17 13:50 Last Admin: 10/11/17 13:58 Dose: 7.5 mg Metoprolol Tartrate (Lopressor) 25 mg PO Q12HR [facility] Last Admin: 10/13/17 20:26 Dose: 25 mg Ondansetron HCl (Zofran) 4 mg IVPUSH ONETIME ONE Stop: 10/11/17 17:40 Last Admin: 10/11/17 17:55 Dose: 4 mg Potassium Chloride (Potassium Chloride) 40 meq PO ONETIME ONE Stop: 10/12/17 10:12 Last Admin: 10/12/17 10:48 Dose: Not Given Potassium Chloride (Klor-Con M20) 40 meq PO ONETIME ONE Stop: 10/12/17 10:48 Last Admin: 10/12/17 10:52 Dose: 40 meq Potassium Chloride (Klor-Con M20) 40 meq PO ONETIME ONE Stop: 10/13/17 19:54 Last Admin: 10/13/17 20:26 Dose: 40 meq - Exam Quality Assessment: DVT Prophylaxis General: Alert, Oriented, Cooperative, No Acute Distress HEENT: Pupils Equal, EOMI, Mucous Membr. Moist/[place] Neck: Supple Lungs: Clear to Auscultation, Normal Respiratory Effort Cardiovascular: Regular Rate, Regular Rhythm GI/Abdominal Exam: Normal Bowel Sounds, Soft, Non-Tender (Male) Exam: Deferred Extremities: Normal Inspection, No Pedal Edema Neurological: No New Focal Deficit Psy/Mental Status: Alert, Normal Affect, Normal Mood - Problem List & Annotations (1) DKA, type 1 SNOMED Code(s): 486431417 Code(s): E10.10 - TYPE 1 DIABETES MELLITUS WITH KETOACIDOSIS WITHOUT COMA Status: Acute Priority: High Current Visit: Yes Qualifiers: Diabetes mellitus complication detail: without coma Qualified Code(s): E10.10 - Type 1 diabetes mellitus with ketoacidosis without coma (2) Dehydration SNOMED Code(s): 63696635 Code(s): E86.0 - DEHYDRATION Status: Acute Priority: High Current Visit : Yes (3) Tachycardia SNOMED Code(s): 3271961 Code(s): R00.0 - TACHYCARDIA, UNSPECIFIED Status: Acute Priority: High Current Visit: Yes (4) Hypokalemia SNOMED Code(s): 91723418 Code(s): E87.6 - HYPOKALEMIA Status: Acute Priority: High Current Visit : Yes (5) Hypomagnesemia SNOMED Code(s): 657055243 Code(s): E83.42 - HYPOMAGNESEMIA Status: Acute Priority: High Current Visit: Yes - Problem List Review Problem List Initiated/Reviewed/Updated: Yes - My Orders Last 24 Hours: My Active Orders 10/13/17 09:06 Ambulate [RC] QID 10/14/17 09:00 Magnesium Oxide 400 mg PO BID Metoprolol Tartrate [Lopressor] 50 mg PO Q12HR Potassium Chloride [Klor-Con M20] 40 meq PO BID 10/14/17 Breakfast Clear Liquid Diet [DIET] - Plan Plan:: DKA, type 1 DM -DKA protocol, fluid boluses given in the ED. -Patient has been on and off insulin drip. He was on insulin drip overnight. Anion gap is closed now in the 13 range. As of this morning he is given crackers drip. He stopped 30 minutes after and blood sugars continue to be followed. He'll have another basic metabolic panel in 4 hours. -A1C= 11.4 -Lipid- total cholesterol 111, LDL 59, HDL 43, triglycerides 77 -CDE/dietitian consult -Continue ambulation several times per day -Patient's insulin pump supplies have been out since 10/06/17. He has attempted many phone calls to get renewals, unsuccessfully up to this point. He was trying to manage with sliding scale insulin at home Hypokalemia -Replete and monitor daily Hypomagnesemia -Replete and monitor daily Tachycardia -Patient states he "always has this", asymptomatic -Will check urine drug screen -- negative -Try metoprolol 25 mg by mouth twice a day--dose increased to 50 mg by mouth twice a day. Heart rates are trending down. -Will recommend Holter monitor as outpatient -Echo ordered- results pending Other: GI/DVT prophylax Daily labs and PRN BMP and accuchecks Ambulate CDE/Dietitian CM for assist with DC planning, insulin pump supplies--nursing did contact Cori Galicia his music educator who does have his insulin pump supplies available. She will kindly bring those to the hospital today. Patient will contact his family to have them bring his pump in. Hopefully we can transition him back to his insulin pump later today. Plan for DC later today vs tomorrow pending progress. Patient is Full Code status. PCP is Dr. Galicia with [facility]. CDE is Cori Galicia with [facility].
[2017-10-15] MEDS: Insulin Aspart 100 Units/ML 3 ML Pen SUBCUT SCH ×2 (02:01→06:39)
[2017-10-15] MEDS: Acetaminophen 325 MG Tab PO PRN (06:30)
[2017-10-15 08:18] VITALS: BP 133/95
[2017-10-15] MEDS: Metoprolol Tartrate 50 MG Tab PO SCH (08:18)
[2017-10-15] MEDS: Potassium Chloride 20 MEQ Tab.ER PO SCH (08:18)
[2017-10-15] MEDS: Magnesium Oxide 400 MG Tab PO SCH (08:19)
--- NOTE | 2017-10-17 09:38 | PCM.DCSUM1 ---
Discharge Summary - Hospital Course Free Text/Narrative:: 22 year old with history of DKA, presents after no response to Novolog therapy when his insulin pump supplies ran out. He described N/V, diarrhea. IVF was provided in the ED as well as the insulin gtt protocol for DKA. He admitted to N/V, abdominal pain and generalized weakness for 2-3 days. He was [place] He [place] be admitted with DKA to the ICU. Overall stay was prolonged after difficulty managing BS/AG on sliding scale. The insulin drip was restarted; he finally had controlled maintained. His PCP, Cori Galicia brought over his supplies, the night before DC. he was able to restart the pump with good control. (Thank you, Cori Galicia!) - Discharge Data Discharge Date: 10/15/17 Discharge Disposition: Home, Self-Care 01 Condition: Good - Patient Summary/Data Consults: Consultations 10/12/17 17:44 Consult to Diabetic Nurse Specialist [CONS] Routine 10/12/17 20:02 Consult to Inspector Tubes [CONS] Routine - Patient Instructions Diet: Usual Diet as Tolerated Activity: As Tolerated Driving: May Drive Today Showering/Bathing: May Shower Notify Provider of: Nausea and/or Vomiting - Discharge Plan Home Medications: Home Meds Insulin Pump/Infus. Set/Meter [Accu-Chek Combo System] 0 unit SQ ASDIRECTED [History] Patient Handouts: Diabetic Ketoacidosis Forms: ED Department Discharge Referrals: Jae Galicia MD [Primary Care Provider] - - Discharge Summary/Plan Comment DC Time >30 min.: No Discharge Summary/Plan Comment: DKA, type 1 DM -DKA protocol, fluid boluses given in the ED. -Patient has been on and off insulin drip. He was on insulin drip overnight. Anion gap is closed now in the 13 range. As of this morning he is given crackers drip. He stopped 30 minutes after and blood sugars continue to be followed. He'll have another basic metabolic panel in 4 hours. -A1C= 11.4 -Lipid- total cholesterol 111, LDL 59, HDL 43, triglycerides 77 -CDE/dietitian consult -Continue ambulation several times per day +++++->Patient's insulin pump supplies have been out since 10/06/17. He has attempted many phone calls to get renewals, unsuccessfully up to this point. He was trying to manage with sliding scale insulin at home PCPs office personnel was gratitiously able to bring supplies, patient was DCd the following day without sequelae. Hypokalemia -Replete and monitor daily Hypomagnesemia -Replete and monitor daily Tachycardia--resolved -Patient states he "always has this", asymptomatic -Will check urine drug screen -- negative -Try metoprolol 25 mg by mouth twice a day--dose increased to 50 mg by mouth twice a day. Heart rates are trending down. -Will recommend Holter monitor as outpatient -Echo ordered- see disctation Other: GI/DVT prophylax Daily labs and PRN BMP and accuchecks Ambulate CDE/Dietitian CM for assist with DC planning, insulin pump supplies--nursing did contact Cori Galicia his life skills educator who does have his insulin pump supplies available. She will kindly bring those to the hospital today. Patient will contact his family to have them bring his pump in. Hopefully we can transition him back to his insulin pump later today. Plan for DC later today vs tomorrow pending progress. See above, thank you for assisting us! Patient is Full Code status. PCP is Dr. Galicia with [facility]. CDE is Cori Galicia with [facility]. Additional CC's: Jae Galicia - General Info Date of Service: 10/11/17 Functional Status: Reports: Tolerating Diet, Ambulating, Urinating - Review of Systems General: Reports: No Symptoms HEENT: Reports: No Symptoms Pulmonary: Reports: No Symptoms Cardiovascular: Reports: No Symptoms Gastrointestinal: Reports: No Symptoms Genitourinary: Reports: No Symptoms Musculoskeletal: Reports: No Symptoms Skin: Reports: No Symptoms Neurological: Reports: No Symptoms Psychiatric: Reports: No Symptoms - Patient Data Vitals - Most Recent: Last Vital Signs Temp 36.6 C 10/15/17 08:17 Pulse 101 H 10/15/17 08:18 Resp 16 10/15/17 08:17 BP 133/95 H 10/15/17 08:18 Pulse Ox 100 10/15/17 08:17 Weight - Most Recent: 61.598 kg Med Orders - Current: Current Medications Discontinued Medications Acetaminophen (Tylenol) 650 mg PO Q4H PRN PRN Reason: Pain/Fever Last Admin: 10/15/17 06:30 Dose: 650 mg Hydromorphone HCl (Dilaudid) 0.5 mg IVPUSH ONETIME ONE Stop: 10/11/17 13:50 Last Admin: 10/11/17 13:58 Dose: 0.5 mg Sodium Chloride (Normal Saline) 1,000 mls @ 999 mls/hr IV ASDIRECTED PRINCE Last Infusion: 10/12/17 09:30 Dose: Infused Potassium Chloride 10 meq/ (Premix) 100 mls @ 100 mls/hr IV ASDIRECTED PRINCE Last Admin: 10/11/17 14:20 Dose: 100 mls/hr Sodium Chloride (Normal Saline) 1,000 mls @ 999 mls/hr IV ASDIRECTED PRINCE Last Admin: 10/11/17 15:59 Dose: 999 mls/hr Sodium Chloride (Normal Saline) 1,000 mls @ 999 mls/hr IV ASDIRECTED PRINCE Sodium Chloride (Normal Saline) 1,000 mls @ 999 mls/hr IV ONETIME ONE Stop: 10/11/17 20:10 Last Admin: 10/11/17 19:44 Dose: 999 mls/hr Insulin Human Regular 100 unit (/ Sodium Chloride) 100 mls @ 328.85 mls/hr IV TITRATE PRINCE; 5 UNITS/KG/HR PRN Reason: Protocol Last Admin: 10/11/17 19:53 Dose: 5 units/kg/hr, 328.85 mls/hr Insulin Human Regular 100 unit (/ Sodium Chloride) 100 mls @ 5 mls/hr IV TITRATE PRINCE; 5 UNIT/HR PRN Reason: Protocol Last Titration: 10/13/17 19:11 Dose: 2.9 unit/hr, 2.9 mls/hr Potassium Chloride/Dextrose/Sod Cl (D5 Ns With 20 Meq Kcl) 1,000 mls @ 250 mls/ hr IV ASDIRECTED PRINCE Dextrose/Water (Dextrose 5% In Water) Confirm Administered Dose 1,000 mls @ as directed .ROUTE .STK-MED ONE Stop: 10/11/17 21:44 Last Admin: 10/11/17 22:03 Dose: Not Given Dextrose/Water (Dextrose 5% In Water) 1,000 mls @ 150 mls/hr IV ASDIRECTED PRINCE Last Infusion: 10/12/17 09:27 Dose: 0 mls/hr Sodium Chloride (Normal Saline) 1,000 mls @ 75 mls/hr IV ASDIRECTED PRINCE Last Infusion: 10/12/17 17:48 Dose: 999 mls/hr Magnesium Sulfate 2 gm/ Premix 50 mls @ 25 mls/hr IV ONETIME ONE Stop: 10/12/17 12:09 Last Admin: 10/12/17 10:58 Dose: 25 mls/hr Sodium Chloride (Normal Saline) 1,000 mls @ 999 mls/hr IV ONETIME ONE Stop: 10/12/17 18:42 Last Admin: 10/12/17 18:44 Dose: 200 mls/hr Sodium Chloride (Normal Saline) 1,000 mls @ 999 mls/hr IV ONETIME ONE Stop: 10/12/17 22:49 Last Admin: 10/12/17 21:57 Dose: 999 mls/hr Sodium Chloride (Normal Saline) 1,000 mls @ 250 mls/hr IV ASDIRECTED PRINCE Last Admin: 10/13/17 07:34 Dose: 250 mls/hr Potassium Chloride 10 meq/ (Premix) 100 mls @ 100 mls/hr IV Q1H [facility] Stop: 10/13/17 13:14 Last Admin: 10/13/17 13:45 Dose: 100 mls/hr Dextrose/Sodium Chloride (Dextrose 5%-Normal Saline) Confirm Administered Dose 1 ,000 mls @ as directed .ROUTE .[facility]-MED ONE Stop: 10/13/17 11:30 Last Admin: 10/13/17 11:38 Dose: 150 ml Dextrose/Sodium Chloride (Dextrose 5%-Normal Saline) 1,000 mls @ 150 mls/hr IV ASDIRECTED PRINCE Magnesium Sulfate 4 gm/ Premix 100 mls @ 100 mls/hr IV ONETIME ONE Stop: 10/13/17 14:07 Last Admin: 10/13/17 14:44 Dose: 25 mls/hr Magnesium Sulfate 4 gm/ Premix 100 mls @ 25 mls/hr IV ONETIME ONE Stop: 10/13/17 18:59 Last Admin: 10/13/17 15:32 Dose: Not Given Dextrose/Sodium Chloride (Dextrose 5%-Normal Saline) 1,000 mls @ 150 mls/hr IV ASDIRECTED PRINCE Last Admin: 10/14/17 02:19 Dose: 150 mls/hr Insulin Human Regular 100 unit (/ Sodium Chloride) 100 mls @ 6.57 mls/hr IV TITRATE PRINCE; 0.1 UNITS/KG/HR PRN Reason: Protocol Last Admin: 10/14/17 00:12 Dose: 1.5 units/kg/hr, 98.65 mls/hr Magnesium Sulfate 2 gm/ Premix 50 mls @ 25 mls/hr IV ONETIME ONE Stop: 10/13/17 22:21 Last Admin: 10/13/17 21:07 Dose: 25 mls/hr Insulin Human Regular 100 unit (/ Sodium Chloride) 100 mls @ 0.1 mls/hr IV TITRATE PRINCE; 0.1 UNIT/HR PRN Reason: Protocol Last Titration: 10/14/17 08:30 Dose: 0 unit/hr, 0 mls/hr Insulin Aspart (Novolog) 0 unit SUBCUT QIDACANDBED PRINCE PRN Reason: Protocol Last Admin: 10/12/17 06:59 Dose: Not Given Insulin Aspart (Novolog) 0 unit SUBCUT QIDACANDBED PRINCE PRN Reason: Protocol Last Admin: 10/15/17 06:39 Dose: Not Given Insulin Human Regular (Humulin R) 5 unit SUBCUT ONETIME ONE PRN Reason: Protocol Stop: 10/12/17 16:25 Insulin Human Regular (Humulin R) Confirm Administered Dose 300 unit .ROUTE .STK -MED ONE Stop: 10/11/17 16:48 Last Admin: 10/11/17 16:49 Dose: 5 units Insulin Human Regular (Humulin R) 5 unit SUBCUT ONETIME ONE PRN Reason: Protocol Stop: 10/11/17 16:25 Last Admin: 10/11/17 19:29 Dose: Not Given Magnesium Oxide (Magnesium Oxide) 400 mg PO BID [facility] Last Admin: 10/15/17 08:19 Dose: 400 mg Metoclopramide HCl (Reglan) 7.5 mg IVPUSH ONETIME ONE Stop: 10/11/17 13:50 Last Admin: 10/11/17 13:58 Dose: 7.5 mg Metoprolol Tartrate (Lopressor) 25 mg PO Q12HR [facility] Last Admin: 10/13/17 20:26 Dose: 25 mg Metoprolol Tartrate (Lopressor) 50 mg PO Q12HR [facility] Last Admin: 10/15/17 08:18 Dose: 50 mg Ondansetron HCl (Zofran) 4 mg IVPUSH ONETIME ONE Stop: 10/11/17 17:40 Last Admin: 10/11/17 17:55 Dose: 4 mg Ondansetron HCl (Zofran) 4 mg IVPUSH Q8H PRN PRN Reason: Nausea/Vomiting Potassium Chloride (Potassium Chloride) 40 meq PO ONETIME ONE Stop: 10/12/17 10:12 Last Admin: 10/12/17 10:48 Dose: Not Given Potassium Chloride (Klor-Con M20) 40 meq PO ONETIME ONE Stop: 10/12/17 10:48 Last Admin: 10/12/17 10:52 Dose: 40 meq Potassium Chloride (Klor-Con M20) 40 meq PO ONETIME ONE Stop: 10/13/17 19:54 Last Admin: 10/13/17 20:26 Dose: 40 meq Potassium Chloride (Klor-Con M20) 40 meq PO BID [facility] Last Admin: 10/15/17 08:18 Dose: 40 meq - Exam Quality Assessment: Reports: DVT Prophylaxis General: Reports: Alert, Oriented, Cooperative, No Acute Distress HEENT: Reports: Pupils Equal, Pupils Reactive, EOMI Neck: Reports: Supple, Trachea Midline, No JVD Lungs: Reports: Clear to Auscultation, Normal Respiratory Effort Cardiovascular: Reports: Regular Rate, Regular Rhythm GI/Abdominal Exam: Normal Bowel Sounds, Soft, Non-Tender, No Organomegaly, No Distention (Male) Exam: Deferred Rectal (Males) Exam: Deferred Back Exam: Reports: Normal Inspection Extremities: Normal Inspection, Normal Range of Motion, Non-Tender Skin: Reports: Warm, Dry, Intact Neurological: Reports: No New Focal Deficit Psy/Mental Status: Reports: Alert, Normal Affect, Normal Mood *Q Meaningful Use (DIS) - VTE *Q VTE Criteria *Q: - Stroke *Q Stroke Criteria *Q: - AMI *Q AMI Criteria *Q:
== END 2017-10-15 10:10 | disposition home or self-care (01) | DRG 950 ==
LOC: JD.ED 13:23 → JD.ICU 19:41
PROVIDERS: ADMIT Internal Medicine Cardiovascular Disease; ATTEND Internal Medicine Cardiovascular Disease
DX: Z79.4 Long term (current) use of insulin (principal); F32.9 Major depressive disorder, single episode, unspecified; F17.210 Nicotine dependence, cigarettes, uncomplicated; E86.0 Dehydration; R00.0 Tachycardia, unspecified; E87.6 Hypokalemia; E83.42 Hypomagnesemia
CPT/HCPCS: 36415; 36600; 80048; 80053; 80061; 80306; 81001; 82009; 82803; 82947; 82962; 83036; 83690; 83735; 83930; 84100; 85025; 86140; 87804; 93005; 93010; 93306; 96361; 96365; 96367; 96372; 96375; 99284; 99285-25; A9270-GY; J1170; J1815-GY; J1817; J2405; J2765; J3475; J3480; J7030; J7040; J7042; J7060

== ENCOUNTER 2017-12-15 14:56 | Emergency (ER) | payer MEDICAID ==
[2017-12-15 15:20] VITALS: BP 132/88
[2017-12-15] MEDS ORDERED: Sodium Chloride 0.9% 10 ML Syringe FLUSH PRN (15:23)
[2017-12-15] MEDS ORDERED: Sodium Chloride 0.9% 2,000 ML IV SCH (15:30)
[2017-12-15] MEDS ORDERED: Lactated Ringers 1,000 ML IV ONE (16:36)
--- NOTE | 2017-12-15 18:52 | EDM.PDOC ---
ED HPI GENERAL MEDICAL PROBLEM - General Chief Complaint: Diabetic Complaint Stated Complaint: POSS DKA Time Seen by Provider: 12/15/17 15:15 Source of Information: Reports: Patient History Limitations: Reports: No Limitations - History of Present Illness INITIAL COMMENTS - FREE TEXT/NARRATIVE: The patient presents with elevated blood sugars. He is a poorly controlled insulin dependent diabetic. He has an insulin pump. He had nausea and vomiting yesterday. He has been taking his insulin. He has no fever, chills, cough, chest pain, shortness of breath, or abdominal pain. He has been in DKA many times and he is concerned he may be headed that way. His blood sugars have been over 600 at home. Onset: Gradual Duration: Day(s): Severity: Moderate Improves with: Reports: None Worsens with: Reports: None Associated Symptoms: Reports: Nausea/Vomiting. Denies: Chest Pain, Cough, Fever /Chills, Headaches, Shortness of Breath Treatments JAW SKINNER: Reports: Insulin chest area Pain Score (Numeric/FACES): 1 - Related Data Allergies Allergy/AdvReac Type Severity Reaction Status Date / Time No Known Allergies Allergy Verified 12/15/17 15:20 Home Meds: Home Meds Insulin Pump/Infus. Set/Meter [Accu-Chek Combo System] 1.2 unit SQ ASDIRECTED [History] Past Medical History Cardiovascular History: Reports: Hypertension Gastrointestinal History: Reports: Other (See Below) Other Gastrointestinal History: patient has had liver biopsy Musculoskeletal History: Reports: Fracture Other Musculoskeletal History: "boxer fracture" - fifth knuckle fracture November 2016 Neurological History: Reports: Head Trauma Psychiatric History: Reports: Depression Endocrine/Metabolic History: Reports: Diabetes, Type I Other Endocrine/Metabolic History: Diabetic ketoacidosis. Insulin pump. brittle diabetic - Infectious Disease History Infectious Disease History: Reports: None - Past Surgical History Cardiovascular Surgical History: Reports: None Male Surgical History: Reports: Circumcision Social & Family History - Family History Family Medical History: Noncontributory Cardiac: Reports: [place] - Tobacco Use Smoking Status *Q: Never Smoker Years of Tobacco use: 4 Packs/Tins Daily: 1 Used Tobacco, but Quit: Yes Month/Year Tobacco Last Used: 2015 Second Hand Smoke Exposure: No - Caffeine Use Caffeine Use: Reports: Coffee, Soda Other Caffeine Use: 1-2 cups - Recreational Drug Use Recreational Drug Use: No Recreational Drug Type: Reports: Marijuana/Hashish Recreational Drug Use Frequency: Not Used In Over 6 Months - Living Situation & Occupation Living situation: Reports: Single, with Significant Other Occupation: Unemployed ED ROS GENERAL - Review of Systems Review Of Systems: See Below Constitutional: Reports: No Symptoms HEENT: Reports: No Symptoms Respiratory: Reports: No Symptoms Cardiovascular: Reports: No Symptoms Endocrine: Reports: No Symptoms GI/Abdominal: Reports: Nausea, Vomiting. Denies: Abdominal Pain : Reports: No Symptoms Musculoskeletal: Reports: No Symptoms Skin: Reports: No Symptoms ED EXAM GENERAL NO PERIP PULSE - Physical Exam Exam: See Below Exam Limited By: No Limitations General Appearance: Alert, No Apparent Distress Ears: Normal External Exam Nose: Normal Inspection Head: Atraumatic, Normocephalic Neck: Normal Inspection Respiratory/Chest: No Respiratory Distress, Lungs Clear, Normal Breath Sounds Cardiovascular: Regular Rate, Rhythm, No Edema, No Murmur GI/Abdominal: Soft, Non-Tender, No Organomegaly, No Mass Back Exam: Normal Inspection Extremities: Normal Inspection Course - Vital Signs Last Recorded V/S: Last Vital Signs Temp 98 F 12/15/17 15:05 Pulse 132 H 12/15/17 15:05 Resp 18 12/15/17 15:05 BP 132/88 12/15/17 15:05 Pulse Ox 99 12/15/17 15:05 - Orders/Labs/Meds Orders: Active Orders 24 hr Category Date Time Status Cardiac Monitoring [RC] . DIRECTED Care 12/15/17 15:23 Active Peripheral IV Care [RC] . DIRECTED Care 12/15/17 15:24 Active Insulin Regular, Human [HumuLIN R] 100 unit Med 12/15/17 18:00 Active Sodium Chloride 0.9% [Normal Saline] 99 ml IV TITRATE Sodium Chloride 0.9% [Normal Saline] 2,000 ml Med 12/15/17 15:30 Active IV .BOLUS Sodium Chloride 0.9% [Saline Flush] Med 12/15/17 15:23 Active 10 ml FLUSH ASDIRECTED PRN Peripheral IV Insertion Adult [OM.PC] Stat Oth 12/15/17 15:23 Ordered Medication Orders Sodium Chloride (Normal Saline) 2,000 mls @ 1,000 mls/hr IV .BOLUS PRINCE Last Admin: 12/15/17 15:30 Dose: 1,000 mls/hr Insulin Human Regular 100 unit (/ Sodium Chloride) 100 mls @ 7 mls/hr IV TITRATE PRINCE; Protocol Sodium Chloride (Saline Flush) 10 ml FLUSH ASDIRECTED PRN PRN Reason: Keep Vein Open Last Admin: 12/15/17 15:31 Dose: 10 ml Labs: Laboratory Tests 12/15/17 12/15/17 12/15/17 Range/Units 15:24 15:24 15:24 WBC 7.96 (4.23-9.07) K/mm3 RBC 5.16 (4.63-6.08) M/mm3 Hgb 14.5 (13.7-17.5) gm/L Hct 40.1 (40.1-51.0) % MCV 77.7 L (79.0-92.2) fl MCH 28.1 (25.7-32.2) pg MCHC 36.2 H (32.2-35.5) g/dl RDW Std Deviation 38.2 (35.1-43.9) fL Plt Count 221 (163-337) K/mm3 MPV 10.5 (9.4-12.3) fl Neut % (Auto) 62.6 (34.0-67.9) % Lymph % (Auto) 28.1 (21.8-53.1) % [place] % (Auto) 8.3 (5.3-12.2) % Eos % (Auto) 0.5 L (0.8-7.0) Baso % (Auto) 0.4 (0.1-1.2) % Neut # (Auto) 4.98 (1.78-5.38) K/mm3 Lymph # (Auto) 2.24 (1.32-3.57) K/mm3 [place] # (Auto) 0.66 (0.30-0.82) K/mm3 Eos # (Auto) 0.04 (0.04-0.54) K/mm3 Baso # (Auto) 0.03 (0.01-0.08) K/mm3 VBG pH 7.41 H (7.30-7.40) Sodium 130 L (136-145) mEq/L Potassium 5.8 H (3.5-5.1) mEq/L Chloride 93 L (98-107) mEq/L Carbon Dioxide 23 (21-32) mEq/L Anion Gap 19.8 H (5-15) BUN 16 (7-18) mg/dL Creatinine 0.9 (0.7-1.3) mg/dL Est Cr Clr Drug Dosing 118.15 mL/min Estimated GFR (MDRD) > 60 (>60) mL/min BUN/Creatinine Ratio 17.8 (14-18) Glucose 606 H* (74-106) mg/dL POC Glucose (70-105) mg/dL Serum Osmolality 310 H (280-300) mosm/kg Calcium 9.3 (8.5-10.1) mg/dL Total Bilirubin 0.9 (0.2-1.0) mg/dL AST 21 (15-37) U/L ALT 20 (16-63) U/L Alkaline Phosphatase 64 (46-116) U/L Total Protein 7.3 (6.4-8.2) g/dl Albumin 3.9 (3.4-5.0) g/dl Globulin 3.4 gm/dL Albumin/Globulin Ratio 1.2 (1-2) Ketones (0.0-0.3) mM 12/15/17 12/15/17 Range/Units 15:24 18:11 WBC (4.23-9.07) K/mm3 RBC (4.63-6.08) M/mm3 Hgb (13.7-17.5) gm/L Hct (40.1-51.0) % MCV (79.0-92.2) fl MCH (25.7-32.2) pg MCHC (32.2-35.5) g/dl RDW Std Deviation (35.1-43.9) fL Plt Count (163-337) K/mm3 MPV (9.4-12.3) fl Neut % (Auto) (34.0-67.9) % Lymph % (Auto) (21.8-53.1) % [place] % (Auto) (5.3-12.2) % Eos % (Auto) (0.8-7.0) Baso % (Auto) (0.1-1.2) % Neut # (Auto) (1.78-5.38) K/mm3 Lymph # (Auto) (1.32-3.57) K/mm3 [place] # (Auto) (0.30-0.82) K/mm3 Eos # (Auto) (0.04-0.54) K/mm3 Baso # (Auto) (0.01-0.08) K/mm3 VBG pH (7.30-7.40) Sodium (136-145) mEq/L Potassium (3.5-5.1) mEq/L Chloride (98-107) mEq/L Carbon Dioxide (21-32) mEq/L Anion Gap (5-15) BUN (7-18) mg/dL Creatinine (0.7-1.3) mg/dL Est Cr Clr Drug Dosing mL/min Estimated GFR (MDRD) (>60) mL/min BUN/Creatinine Ratio (14-18) Glucose (74-106) mg/dL POC Glucose 355 H (70-105) mg/dL Serum Osmolality (280-300) mosm/kg Calcium (8.5-10.1) mg/dL Total Bilirubin (0.2-1.0) mg/dL AST (15-37) U/L ALT (16-63) U/L Alkaline Phosphatase (46-116) U/L Total Protein (6.4-8.2) g/dl Albumin (3.4-5.0) g/dl Globulin gm/dL Albumin/Globulin Ratio (1-2) Ketones 3.24 (0.0-0.3) mM Meds: Medications Generic Name Dose Route Start Last Admin Trade Name Freq PRN Reason Stop Dose Admin Sodium Chloride 2,000 mls @ 1,000 mls/hr 12/15/17 15:30 12/15/17 15:30 Normal Saline IV 1,000 mls/hr .BOLUS PRINCE Administration Insulin Human Regular 100 unit 100 mls @ 7 mls/hr 12/15/17 18:00 / Sodium Chloride IV TITRATE PRINCE Protocol 7 UNIT/HR Sodium Chloride 10 ml 12/15/17 15:23 12/15/17 15:31 Saline Flush FLUSH 10 ml ASDIRECTED PRN Administration Keep Vein Open Discontinued Medications Generic Name Dose Route Start Last Admin Trade Name Freq PRN Reason Stop Dose Admin Lactated Ringer's 1,000 mls @ 1,000 mls/hr 12/15/17 16:36 12/15/17 17:49 Ringers, Lactated IV 12/15/17 17:35 1,000 mls/hr .BOLUS ONE Administration - Re-Assessments/Exams Free Text/Narrative Re-Assessment/Exam: 12/15/17 18:48 I ordered an IV NS 2L bolus and labs. His CBC looks good. His venous pH was 7.41. His Na was low at 130. His K was elevated at 5.8. His anion gap was elevated at 19.8. His creatinine was normal at 0.9. His glucose was 606. His serum osmolality is elevated at 310. His serum ketones was elevated at 3.24. I ordered another liter of fluid some LR. After that his blood sugar went down to 355. 12/15/17 18:54 His is not in DKA. He does have ketosis. He feels much better now. I feel it is safe to discharge him. Departure - Departure Time of Disposition: 18:55 Disposition: Home, Self-Care 01 Condition: Good Clinical Impression: Hyperglycemia, Ketosis due to diabetes - Discharge Information Referrals: Jae Galicia MD [Primary Care Provider] - 1 Week Forms: ED Department Discharge Additional Instructions: Drink plenty of fluids. Keep taking your insulin. Watch your diet. Please return if you are worse. - My Orders Last 24 Hours: My Active Orders 12/15/17 15:23 Cardiac Monitoring [RC] . DIRECTED Sodium Chloride 0.9% [Saline Flush] 10 ml FLUSH ASDIRECTED PRN Peripheral IV Insertion Adult [OM.PC] Stat 12/15/17 15:24 Peripheral IV Care [RC] . DIRECTED 12/15/17 15:30 Sodium Chloride 0.9% [Normal Saline] 2,000 ml IV .BOLUS 12/15/17 18:00 Insulin Regular, Human [HumuLIN R] 100 unit Sodium Chloride 0.9% [Normal Saline] 99 ml IV TITRATE - Assessment/Plan Last 24 Hours: My Active Orders 12/15/17 15:23 Cardiac Monitoring [RC] . DIRECTED Sodium Chloride 0.9% [Saline Flush] 10 ml FLUSH ASDIRECTED PRN Peripheral IV Insertion Adult [OM.PC] Stat 12/15/17 15:24 Peripheral IV Care [RC] . DIRECTED 12/15/17 15:30 Sodium Chloride 0.9% [Normal Saline] 2,000 ml IV .BOLUS 12/15/17 18:00 Insulin Regular, Human [HumuLIN R] 100 unit Sodium Chloride 0.9% [Normal Saline] 99 ml IV TITRATE
== END 2017-12-15 19:07 | disposition home or self-care (01) ==
LOC: JD.ED 14:56
DX: E10.10 Type 1 diabetes mellitus with ketoacidosis without coma (principal); I10 Essential (primary) hypertension; Z87.891 Personal history of nicotine dependence
CPT/HCPCS: 36415; 80053; 82009; 82800; 82962; 83930; 85025; 96360; 96361; 99285; J1815; J7030; J7040; J7050; J7120; 99283

== ENCOUNTER 2018-01-03 04:28 | Emergency (ER) | payer MEDICAID ==
[2018-01-03 04:41] VITALS: BP 143/103
[2018-01-03] MEDS ORDERED: Insulin Regular, Human 100 Units/ML 3 ML Vial IV STA (04:49)
[2018-01-03] MEDS ORDERED: Sodium Chloride 0.9% 1,000 ML IV ONE (04:52)
--- NOTE | 2018-01-03 05:11 | EDM.PDOC ---
ED HPI GENERAL MEDICAL PROBLEM - General Chief Complaint: Diabetic Complaint Stated Complaint: DIABETES COMPLICATIONS Time Seen by Provider: 01/03/18 04:47 Source of Information: Reports: Patient History Limitations: Reports: Altered Mental Status (Lethargy) - History of Present Illness INITIAL COMMENTS - FREE TEXT/NARRATIVE: The patient states that he is in DKA. He states that he developed hyperglycemia , nausea, and vomiting yesterday. No recent fever, diarrhea, or urinary symptoms. He states that he has had a cough, but is unable to say if it is dry or productive. He has had similar symptoms numerous times in the past, due to DKA. The patient's PCP is Dr. Galicia. 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 Chest Pain Score (Numeric/FACES): 6 - Related Data Allergies Allergy/AdvReac Type Severity Reaction Status Date / Time No Known Allergies Allergy Verified 01/03/18 04:37 Home Meds: Home Meds Insulin Pump/Infus. Set/Meter [Accu-Chek Combo System] 1.2 unit SQ ASDIRECTED [History] Past Medical History Musculoskeletal History: Reports: Fracture (Right 5th boxer fracture) Endocrine/Metabolic History: Reports: Diabetes, Type I - Past Surgical History Male Surgical History: Reports: Circumcision Social & Family History - Family History Family Medical History: Noncontributory Cardiac: Reports: NE - Tobacco Use Smoking Status *Q: Former Smoker Years of Tobacco use: 2 Packs/Tins Daily: 0.2 Month/Year Tobacco Last Used: Quit 2015 Second Hand Smoke Exposure: No - Caffeine Use Caffeine Use: Reports: Coffee, Soda Other Caffeine Use: 1-2 cups - Alcohol Use Alcohol Use History: No - Recreational Drug Use Recreational Drug Use: Yes Drug Use in Last 12 Months: Yes Recreational Drug Type: Reports: Marijuana/Hashish - Living Situation & Occupation Living situation: Reports: Single, with Family Occupation: Unemployed ED ROS GENERAL - Review of Systems Review Of Systems: ROS reveals no pertinent complaints other than HPI. ED EXAM GENERAL NO PERIP PULSE - Physical Exam Exam: See Below Exam Limited By: No Limitations General Appearance: Alert, WD/WN, Mild Distress, Other (Tachypneic and tachycardic) Eye Exam: Bilateral Eye: Normal Inspection Ears: Normal External Exam, Hearing Grossly Normal Nose: Normal Inspection, Normal Mucosa, No Blood Throat/Mouth: Normal Inspection, Normal Lips, Normal Voice, No Airway Compromise , Other (Dry oral mucosa) Head: Atraumatic, Normocephalic Neck: Normal Inspection, Full Range of Motion Respiratory/Chest: No Respiratory Distress, Lungs Clear, Normal Breath Sounds, No Accessory Muscle Use Cardiovascular: Normal Peripheral Pulses, No Edema, No Gallop, No JVD, No Murmur , No Rub, Tachycardia (regular) GI/Abdominal: Normal Bowel Sounds, Soft, Non-Tender, No Organomegaly, No Distention, No Abnormal Bruit, No Mass (Male) Exam: Deferred Rectal (Males) Exam: Deferred Extremities: Normal Inspection, Normal Range of Motion, No Pedal Edema, Normal Capillary Refill Neurological: No Motor/Sensory Deficits, Slow to Respond (Lethargic) Skin Exam: Warm, Dry, Intact, Normal Color, No Rash EKG INTERPRETATION EKG Date: 01/03/18 Time: 05:14 Rhythm: Other (Sinus tachycardia) Rate (Beats/Min): 111 [place]: LAD-Left [place] Deviation P-Wave: Present QRS: Normal ST-T: Normal QT: Prolonged (QTC 519 ms) Comparison: Change From Previous EKG (10/11/2017 - QTc was normal) Course - Vital Signs Last Recorded V/S: Last Vital Signs Temp 36.4 C 01/03/18 04:38 Pulse 105 H 01/03/18 04:38 Resp 27 H 01/03/18 04:38 BP 143/103 H 01/03/18 04:38 Pulse Ox 100 01/03/18 04:38 - Orders/Labs/Meds Orders: Active Orders 24 hr Category Date Time Status EKG Documentation Completion [RC] ASDIRECTED Care 01/03/18 05:01 Active Orthostatic Vital Signs [RC] STAT Care 01/03/18 05:08 Active Chest 1V Frontal [CR] Stat Exams 01/03/18 04:53 Taken CBC WITH MANUAL DIFF [HEME] Stat Lab 01/03/18 05:40 Results CULTURE BLOOD [BC] Stat Lab 01/03/18 05:40 Received CULTURE BLOOD [BC] Stat Lab 01/03/18 06:03 Received KETONES,BLOOD [CHEM] Stat Lab 01/03/18 05:40 Received UA W/MICROSCOPIC [URIN] Stat Lab 01/03/18 05:26 Ordered Insulin Regular, Human [HumuLIN R] 100 unit Med 01/03/18 05:00 Active Sodium Chloride 0.9% [Normal Saline] 99 ml IV TITRATE Sodium Bicarbonate [Sodium Bicarbonate 8.4%] 75 meq Med 01/03/18 06:30 Active Sodium Chloride 0.45% 1,000 ml IV STAT Sodium Bicarbonate [Sodium Bicarbonate 8.4%] 75 meq Med 01/03/18 07:30 Active Sodium Chloride 0.45% 1,000 ml IV STAT Blood Culture x2 Reflex Set [OM.PC] Stat Oth 01/03/18 05:08 Ordered EKG 12 Lead [EK] Stat Ther 01/03/18 05:01 Ordered Medication Orders Insulin Human Regular 100 unit (/ Sodium Chloride) 100 mls @ 5.8 mls/hr IV TITRATE PRINCE; Protocol Last Admin: 01/03/18 05:08 Dose: 0.1 units/kg/hr, 5.8 mls/hr Sodium Bicarbonate 75 meq/ (Sodium Chloride) 1,075 mls @ 999 mls/hr IV STAT ONE Stop: 01/03/18 07:34 Last Admin: 01/03/18 06:25 Dose: 999 mls/hr Sodium Bicarbonate 75 meq/ (Sodium Chloride) 1,075 mls @ 999 mls/hr IV STAT ONE Stop: 01/03/18 08:34 Last Admin: 01/03/18 06:36 Dose: 999 mls/hr Labs: Laboratory Tests 01/03/18 01/03/18 01/03/18 Range/Units 05:10 05:26 05:40 WBC 25.77 H (4.23-9.07) K/mm3 RBC 5.26 (4.63-6.08) M/mm3 Hgb 15.5 (13.7-17.5) gm/L Hct 40.8 (40.1-51.0) % MCV 77.6 L (79.0-92.2) fl MCH 29.5 (25.7-32.2) pg MCHC 38.0 H (32.2-35.5) g/dl RDW Std Deviation 37.6 (35.1-43.9) fL Plt Count 531 H (163-337) K/mm3 MPV 9.8 (9.4-12.3) fl Puncture Site Lt brachial ABG pH 6.95 L* (7.35-7.45) ABG pCO2 8.4 L* (35.0-45.0) mmHg ABG pO2 141.0 H (80.0-100.0) mmHg ABG HCO3 1.7 L (22.0-26.0) meq/L ABG O2 Saturation 98.7 H (96.0-97.0) % ABG Base Excess -32.0 L (-2-2.0) O2 Delivery Device Room air FiO2 21.00 (21.00-100.00) % Sodium (136-145) mEq/L Potassium (3.5-5.1) mEq/L Chloride (98-107) mEq/L Carbon Dioxide (21-32) mEq/L Anion Gap (5-15) BUN (7-18) mg/dL Creatinine (0.7-1.3) mg/dL Est Cr Clr Drug Dosing mL/min Estimated GFR (MDRD) (>60) mL/min BUN/Creatinine Ratio (14-18) Glucose (74-106) mg/dL Lactic Acid (0.4-2.0) mmol/L Calcium (8.5-10.1) mg/dL Magnesium (1.8-2.4) mg/dl Total Bilirubin (0.2-1.0) mg/dL AST (15-37) U/L ALT (16-63) U/L Alkaline Phosphatase (46-116) U/L Total Protein (6.4-8.2) g/dl Albumin (3.4-5.0) g/dl Globulin gm/dL Albumin/Globulin Ratio (1-2) Urine Color Yellow (Yellow) Urine Appearance Clear (Clear) Urine pH 5.5 (5.0-8.0) Ur Specific [place] 1.020 (1.005-1.030) Urine Protein 2+ H (Negative) Urine Glucose (UA) 2+ H (Negative) Urine Ketones 3+ H (Negative) Urine Occult Blood 1+ H (Negative) Urine Nitrite Negative (Negative) Urine Bilirubin Negative (Negative) Urine Urobilinogen 0.2 (0.2-1.0) Ur Leukocyte Esterase Negative (Negative) Urine RBC 0-5 (0-5) /hpf Urine WBC 0-5 (0-5) /hpf Ur Epithelial Cells 0-5 (0-5) /hpf Urine Bacteria Few (FEW) /hpf Urine Mucus Not seen (FEW) /hpf 01/03/18 01/03/18 01/03/18 Range/Units 05:40 05:40 05:40 WBC (4.23-9.07) K/mm3 RBC (4.63-6.08) M/mm3 Hgb (13.7-17.5) gm/L Hct (40.1-51.0) % MCV (79.0-92.2) fl MCH (25.7-32.2) pg MCHC (32.2-35.5) g/dl RDW Std Deviation (35.1-43.9) fL Plt Count (163-337) K/mm3 MPV (9.4-12.3) fl Puncture Site ABG pH (7.35-7.45) ABG pCO2 (35.0-45.0) mmHg ABG pO2 (80.0-100.0) mmHg ABG HCO3 (22.0-26.0) meq/L ABG O2 Saturation (96.0-97.0) % ABG Base Excess (-2-2.0) O2 Delivery Device FiO2 (21.00-100.00) % Sodium 124 L (136-145) mEq/L Potassium 4.1 (3.5-5.1) mEq/L Chloride 86 L (98-107) mEq/L Carbon Dioxide < 5 L* (21-32) mEq/L Anion Gap 37.1 H (5-15) BUN 35 H (7-18) mg/dL Creatinine 1.6 H (0.7-1.3) mg/dL Est Cr Clr Drug Dosing 60.48 mL/min Estimated GFR (MDRD) 55 (>60) mL/min BUN/Creatinine Ratio 21.9 H (14-18) Glucose 897 H* (74-106) mg/dL Lactic Acid 2.5 H (0.4-2.0) mmol/L Calcium 8.5 (8.5-10.1) mg/dL Magnesium 2.1 (1.8-2.4) mg/dl Total Bilirubin 0.7 (0.2-1.0) mg/dL AST 14 L (15-37) U/L ALT 16 (16-63) U/L Alkaline Phosphatase 98 (46-116) U/L Total Protein 7.6 (6.4-8.2) g/dl Albumin 3.9 (3.4-5.0) g/dl Globulin 3.7 gm/dL Albumin/Globulin Ratio 1.1 (1-2) Urine Color (Yellow) Urine Appearance (Clear) Urine pH (5.0-8.0) Ur Specific [place] (1.005-1.030) Urine Protein (Negative) Urine Glucose (UA) (Negative) Urine Ketones (Negative) Urine Occult Blood (Negative) Urine Nitrite (Negative) Urine Bilirubin (Negative) Urine Urobilinogen (0.2-1.0) Ur Leukocyte Esterase (Negative) Urine RBC (0-5) /hpf Urine WBC (0-5) /hpf Ur Epithelial Cells (0-5) /hpf Urine Bacteria (FEW) /hpf Urine Mucus (FEW) /hpf Meds: Medications Generic Name Dose Route Start Last Admin Trade Name Freq PRN Reason Stop Dose Admin Insulin Human Regular 100 unit 100 mls @ 5.8 mls/hr 01/03/18 05:00 01/03/18 05:08 / Sodium Chloride IV 0.1 units/kg/hr TITRATE PRINCE 5.8 mls/hr Administration Protocol 0.1 UNITS/KG/HR Sodium Bicarbonate 75 meq/ 1,075 mls @ 999 mls/hr 01/03/18 06:30 01/03/18 06: 25 Sodium Chloride IV 01/03/18 07:34 999 mls/hr STAT ONE Administration Sodium Bicarbonate 75 meq/ 1,075 mls @ 999 mls/hr 01/03/18 07:30 01/03/18 06: 36 Sodium Chloride IV 01/03/18 08:34 999 mls/hr STAT ONE Administration Discontinued Medications Generic Name Dose Route Start Last Admin Trade Name Freq PRN Reason Stop Dose Admin Sodium Chloride 1,000 mls @ 999 mls/hr 01/03/18 04:52 01/03/18 04:58 Normal Saline IV 01/03/18 05:52 999 mls/hr ONETIME ONE Administration Sodium Bicarbonate 75 meq/ 1,075 mls @ 999 mls/hr 01/03/18 06:00 Sodium Chloride IV ASDIRECTED PRINCE Sodium Bicarbonate 75 meq/ 1,075 mls @ 999 mls/hr 01/03/18 06:00 Sodium Chloride IV STAT PRINCE Insulin Human Regular 10 unit 04/15/18 04:49 01/03/18 04:56 Humulin R IV 01/03/18 04:50 10 units ONETIME STA Administration - Re-Assessments/Exams Free Text/Narrative Re-Assessment/Exam: 01/03/18 05:32 The patient's ABG represents a severe metabolic acidosis, with a bicarbonate down to 1.7. Review of prior medical records finds that the patient's bicarbonate has been as low as 1.7 in the past. Because the patient is young, he has been able to handle these numbers in the past, however, these numbers are severe enough that the patient will require transfer to [place]. 01/03/18 05:37 I discussed the above with the patient. He confirms that he has not previously required intubation/mechanical ventilation. He would prefer to be transferred to [facility]. 01/03/18 05:52 Case discussed with [facility] at 05:39. Case then discussed with Dr. Gómez, [employer] Athlete at [facility] at 05: 44. He recommends that we switch the patient's IV fluid to 1/2 NS with 1.5 Amps Na-bicarb. He accepts the patient for direct admission to their ICU. 01/03/18 05:54 Portable chest radiograph appears to be grossly normal. Cardiac silhouette is within normal limits. No pulmonary vascular congestion. No pleural effusions. No focal infiltrate. No pneumothorax. Formal read per the Radiologist pending. The chest x-ray image was pushed to [facility]. Departure - Departure Time of Disposition: 05:55 Disposition: DC/Tfer to Acute Hospital 02 Condition: Serious Clinical Impression: DKA (diabetic ketoacidoses) - Discharge Information Referrals: Jae Galicia MD [Primary Care Provider] - - My Orders Last 24 Hours: My Active Orders 01/03/18 04:53 Chest 1V Frontal [CR] Stat 01/03/18 05:00 Insulin Regular, Human [HumuLIN R] 100 unit Sodium Chloride 0.9% [Normal Saline] 99 ml IV TITRATE 01/03/18 05:01 EKG Documentation Completion [RC] ASDIRECTED EKG 12 Lead [EK] Stat 01/03/18 05:08 Orthostatic Vital Signs [RC] STAT Blood Culture x2 Reflex Set [OM.PC] Stat 01/03/18 05:26 UA W/MICROSCOPIC [URIN] Stat 01/03/18 05:40 CBC WITH MANUAL DIFF [HEME] Stat CULTURE BLOOD [BC] Stat KETONES,BLOOD [CHEM] Stat 01/03/18 06:03 CULTURE BLOOD [BC] Stat 01/03/18 06:30 Sodium Bicarbonate [Sodium Bicarbonate 8.4%] 75 meq Sodium Chloride 0.45% 1, 000 ml IV STAT 01/03/18 07:30 Sodium Bicarbonate [Sodium Bicarbonate 8.4%] 75 meq Sodium Chloride 0.45% 1, 000 ml IV STAT - Assessment/Plan Last 24 Hours: My Active Orders 01/03/18 04:53 Chest 1V Frontal [CR] Stat 01/03/18 05:00 Insulin Regular, Human [HumuLIN R] 100 unit Sodium Chloride 0.9% [Normal Saline] 99 ml IV TITRATE 01/03/18 05:01 EKG Documentation Completion [RC] ASDIRECTED EKG 12 Lead [EK] Stat 01/03/18 05:08 Orthostatic Vital Signs [RC] STAT Blood Culture x2 Reflex Set [OM.PC] Stat 01/03/18 05:26 UA W/MICROSCOPIC [URIN] Stat 01/03/18 05:40 CBC WITH MANUAL DIFF [HEME] Stat CULTURE BLOOD [BC] Stat KETONES,BLOOD [CHEM] Stat 01/03/18 06:03 CULTURE BLOOD [BC] Stat 01/03/18 06:30 Sodium Bicarbonate [Sodium Bicarbonate 8.4%] 75 meq Sodium Chloride 0.45% 1, 000 ml IV STAT 01/03/18 07:30 Sodium Bicarbonate [Sodium Bicarbonate 8.4%] 75 meq Sodium Chloride 0.45% 1, 000 ml IV STAT
[2018-01-03] MEDS ORDERED: Sodium Bicarbonate 75 MEQ in Sodium Chloride 0.45% 1,000 ML IV SCH ×4 (06:00)
[2018-01-03] MEDS ORDERED: Sodium Bicarbonate 75 MEQ in Sodium Chloride 0.45% 1,000 ML IV ONE ×2 (06:30→07:30)
--- NOTE | 2018-01-03 14:55 | CR ---
Chest: Portable view of the chest was obtained. Comparison: Prior chest x-ray of 09/27/17. Heart size and mediastinum are normal. Lungs are clear. Bony structures are grossly intact. Impression: 1. Nothing acute is identified on portable chest x-ray. Diagnostic code #1
== END 2018-01-03 06:55 ==
LOC: JD.ED 04:28
DX: E10.10 Type 1 diabetes mellitus with ketoacidosis without coma (principal); Z87.891 Personal history of nicotine dependence
CPT/HCPCS: 36415; 36600; 71045; 80053; 81001; 82009; 82803; 83605; 83735; 85025; 87040; 93005; 96365; 96366; 96376; 99285; J1815; J7030; J7040; 93010

== ENCOUNTER 2018-03-08 18:49 | Inpatient (IN) | payer MEDICAID ==
[2018-03-08] MEDS ORDERED: Sodium Chloride 0.9% 10 ML Syringe FLUSH PRN (19:08)
[2018-03-08] MEDS ORDERED: Sodium Chloride 0.9% 1,000 ML IV ONE ×3 (19:09→20:09)
--- NOTE | 2018-03-08 19:27 | EDM.PDOC ---
ED HPI GENERAL MEDICAL PROBLEM - General Chief Complaint: Diabetic Complaint Stated Complaint: VOMMITING AND SEVERE STOMACH PAIN Time Seen by Provider: 03/08/18 19:00 Source of Information: Reports: Patient History Limitations: Reports: No Limitations - History of Present Illness INITIAL COMMENTS - FREE TEXT/NARRATIVE: 23 y/o M with hx insulin dependent DM presents with high blood sugar and nausea. He has an insulin pump. States the pump does seem to be working normally. Starting yesterday, he noticed blood sugars in the 400's. Today was too high to read. Has nausea, vomited x 4 today. Mild abdominal cramping, diffuse. No known fever. Denies cough/SOB. No diarrhea. No additional complaint. Feels generally weak and ill. Was last hospitalized for DKA in December of this year. States he's had the pump for a long time and he does think it's working. Abdominal Pain Score (Numeric/FACES): 5 - Related Data Allergies Allergy/AdvReac Type Severity Reaction Status Date / Time No Known Allergies Allergy Verified 03/08/18 19:03 Home Meds: Home Meds Insulin Pump/Infus. Set/Meter [Accu-Chek Combo System] 1.2 unit SQ ASDIRECTED [History] Past Medical History Cardiovascular History: Reports: Hypertension Gastrointestinal History: Reports: Other (See Below) Other Gastrointestinal History: patient has had liver biopsy Musculoskeletal History: Reports: Fracture Other Musculoskeletal History: "boxer fracture" - fifth knuckle fracture November 2016 Neurological History: Reports: Head Trauma Psychiatric History: Reports: Depression Endocrine/Metabolic History: Reports: Diabetes, Type I Other Endocrine/Metabolic History: Diabetic ketoacidosis. Insulin pump. brittle diabetic - Infectious Disease History Infectious Disease History: Reports: None - Past Surgical History Cardiovascular Surgical History: Reports: None Male Surgical History: Reports: Circumcision Social & Family History - Family History Family Medical History: Noncontributory Cardiac: Reports: OR - Tobacco Use Smoking Status *Q: Never Smoker - Caffeine Use Caffeine Use: Reports: Coffee, Energy Drinks Other Caffeine Use: 1-2 cups - Recreational Drug Use Recreational Drug Use: No - Living Situation & Occupation Living situation: Reports: Single, with Family Occupation: Unemployed ED ROS GENERAL - Review of Systems Review Of Systems: See Below Constitutional: Reports: Malaise, Weakness, Fatigue. Denies: Fever HEENT: Reports: No Symptoms Respiratory: Denies: Shortness of Breath, Cough Cardiovascular: Denies: Chest Pain Endocrine: Reports: High Glucose GI/Abdominal: Reports: Abdominal Pain, Nausea, Vomiting : Reports: No Symptoms Musculoskeletal: Reports: No Symptoms Skin: Reports: No Symptoms Neurological: Reports: No Symptoms Psychiatric: Reports: No Symptoms Hematologic/Lymphatic: Reports: No Symptoms Immunologic: Reports: No Symptoms ED EXAM GENERAL NO PERIP PULSE - Physical Exam Exam: See Below Exam Limited By: No Limitations General Appearance: Alert, WD/WN, No Apparent Distress Eye Exam: Bilateral Eye: Normal Inspection Ears: Normal External Exam Nose: Normal Inspection Throat/Mouth: Normal Inspection, Normal Oropharynx, Normal Voice, No Airway Compromise Head: Atraumatic, Normocephalic Neck: Normal Inspection, Supple, Non-Tender, Full Range of Motion Respiratory/Chest: No Respiratory Distress, Lungs Clear, Normal Breath Sounds, No Accessory Muscle Use, Chest Non-Tender Cardiovascular: Regular Rate, Rhythm, No Edema, No Murmur, Tachycardia GI/Abdominal: Soft, Non-Tender, No Distention. No: Rebound Back Exam: Normal Inspection Extremities: Normal Inspection, No Pedal Edema Neurological: Alert, Oriented, Normal Cognition, No Motor/Sensory Deficits Psychiatric: Normal Affect, Normal Mood Skin Exam: Warm, Dry, Intact, Normal Color, No Rash Course - Vital Signs Last Recorded V/S: Last Vital Signs Temp 37.3 C 03/08/18 22:00 Pulse 128 H 03/08/18 22:00 Resp 25 H 03/08/18 22:00 BP 126/69 03/08/18 22:00 Pulse Ox 100 03/08/18 22:00 - Orders/Labs/Meds Orders: Active Orders 24 hr Category Date Time Status EKG 12 Lead [EKG Documentation Completion] [RC] STAT Care 03/08/18 19:08 Active Peripheral IV Care [RC] Q2HR Care 03/08/18 19:08 Active Chest 1V Frontal [CR] Stat Exams 03/08/18 20:09 Taken UA W/MICROSCOPIC [URIN] Stat Lab 03/08/18 20:10 Ordered Sodium Chloride 0.9% [Saline Flush] Med 03/08/18 19:08 Active 10 ml FLUSH ASDIRECTED PRN Peripheral IV Insertion Adult [OM.PC] Routine Oth 03/08/18 19:08 Ordered Medication Orders Albuterol/Ipratropium (Duoneb 3.0-0.5 Mg/3 Ml) 3 ml NEB Q4H PRN PRN Reason: Shortness Of Breath/wheezing Bisacodyl (Dulcolax) 5 mg PO DAILY PRN PRN Reason: Constipation Docusate Sodium (Colace) 100 mg PO BID PRN PRN Reason: Constipation Hydralazine HCl (Apresoline) 20 mg IVPUSH Q4H PRN PRN Reason: Hypertension Hydromorphone HCl (Dilaudid) 0.25 mg IVPUSH Q2H PRN PRN Reason: Pain (severe 7-10) Promethazine HCl 12.5 mg/ (Sodium Chloride) 50.5 mls @ 100 mls/hr IV Q6H PRN PRN Reason: Nausea/Vomiting Insulin Human Regular 100 unit (/ Sodium Chloride) 100 mls @ 5.39 mls/hr IV TITRATE PRINCE; Protocol Sodium Chloride (Normal Saline) 1,000 mls @ 999 mls/hr IV ASDIRECTED [facility] Stop: 03/10/18 23:31 Ibuprofen (Motrin) 600 mg PO Q6H PRN PRN Reason: Pain (moderate 4-6) Lorazepam (Ativan) 1 mg IV Q6H PRN PRN Reason: Nausea/Vomiting Magnesium Hydroxide (Milk Of Magnesia) 30 ml PO Q12H PRN PRN Reason: Constipation Metoprolol Tartrate (Lopressor) 5 mg IVPUSH Q4H PRN PRN Reason: Tachycardia Miscellaneous Information (Remove Patch) 1 ea TRDERM DAILY [facility] Nicotine (Habitrol) 21 mg TRDERM DAILY [facility] Ondansetron HCl (Zofran) 4 mg IV Q6H PRN PRN Reason: Nausea/Vomiting Ondansetron HCl (Zofran Odt) 4 mg PO Q6H PRN PRN Reason: nausea, able to take PO Oxycodone HCl (Oxycodone) 5 mg PO Q4H PRN PRN Reason: Pain (moderate 4-6) Polyethylene Glycol (Miralax) 17 gm PO DAILY PRN PRN Reason: Constipation Promethazine HCl (Phenergan) 25 mg PO Q6H PRN PRN Reason: Nausea/Vomiting Senna/Docusate Sodium (Senna Plus) 1 tab PO BID PRN PRN Reason: Constipation Sodium Chloride (Saline Flush) 10 ml FLUSH ASDIRECTED PRN PRN Reason: Keep Vein Open Last Admin: 03/08/18 19:28 Dose: 10 ml Temazepam (Restoril) 15 mg PO BEDTIME PRN PRN Reason: Sleep Labs: Laboratory Tests 03/08/18 03/08/18 03/08/18 Range/Units 19:12 19:12 19:12 WBC 13.92 H (4.23-9.07) K/mm3 RBC 4.95 (4.63-6.08) M/mm3 Hgb 14.5 (13.7-17.5) gm/L Hct 39.0 L (40.1-51.0) % MCV 78.8 L (79.0-92.2) fl MCH 29.3 (25.7-32.2) pg MCHC 37.1 H (32.2-35.5) g/dl RDW Std Deviation 39.5 (35.1-43.9) fL Plt Count 424 H (163-337) K/mm3 MPV 10.1 (9.4-12.3) fl Neut % (Auto) 69.9 H (34.0-67.9) % Lymph % (Auto) 23.3 (21.8-53.1) % Wh[place] % (Auto) 5.6 (5.3-12.2) % Eos % (Auto) 0.2 L (0.8-7.0) Baso % (Auto) 0.4 (0.1-1.2) % Neut # (Auto) 9.73 H (1.78-5.38) K/mm3 Lymph # (Auto) 3.25 (1.32-3.57) K/mm3 [place] # (Auto) 0.78 (0.30-0.82) K/mm3 Eos # (Auto) 0.03 L (0.04-0.54) K/mm3 Baso # (Auto) 0.05 (0.01-0.08) K/mm3 D-Dimer, Quantitative < 0.19 L (0.19-0.50) mg/L Puncture Site Rt radial ABG pH 7.20 L (7.35-7.45) ABG pCO2 15.2 L* (35.0-45.0) mmHg ABG pO2 121.0 H (80.0-100.0) mmHg ABG HCO3 5.8 L (22.0-26.0) meq/L ABG O2 Saturation 98.9 H (96.0-97.0) % ABG Base Excess -21.1 L (-2-2.0) Carson Test Positive O2 Delivery Device Room air FiO2 21.00 (21.00-100.00) % Sodium (136-145) mEq/L Potassium (3.5-5.1) mEq/L Chloride (98-107) mEq/L Carbon Dioxide (21-32) mEq/L Anion Gap (5-15) BUN (7-18) mg/dL Creatinine (0.7-1.3) mg/dL Est Cr Clr Drug Dosing mL/min Estimated GFR (MDRD) (>60) mL/min BUN/Creatinine Ratio (14-18) Glucose (74-106) mg/dL Hemoglobin A1c (4.50-6.20) % Lactic Acid (0.4-2.0) mmol/L Calcium (8.5-10.1) mg/dL Magnesium (1.8-2.4) mg/dl Total Bilirubin (0.2-1.0) mg/dL AST (15-37) U/L ALT (16-63) U/L Alkaline Phosphatase (46-116) U/L Troponin I (0.00-0.056) ng/mL Total Protein (6.4-8.2) g/dl Albumin (3.4-5.0) g/dl Globulin gm/dL Albumin/Globulin Ratio (1-2) Urine Color (Yellow) Urine Appearance (Clear) Urine pH (5.0-8.0) Ur Specific [place] (1.005-1.030) Urine Protein (Negative) Urine Glucose (UA) (Negative) Urine Ketones (Negative) Urine Occult Blood (Negative) Urine Nitrite (Negative) Urine Bilirubin (Negative) Urine Urobilinogen (0.2-1.0) Ur Leukocyte Esterase (Negative) Urine RBC (0-5) /hpf Urine WBC (0-5) /hpf Ur Epithelial Cells (0-5) /hpf Urine Bacteria (FEW) /hpf Urine Mucus (FEW) /hpf Ketones (0.0-0.3) mM 03/08/18 03/08/18 03/08/18 Range/Units 19:12 19:12 19:12 WBC (4.23-9.07) K/mm3 RBC (4.63-6.08) M/mm3 Hgb (13.7-17.5) gm/L Hct (40.1-51.0) % MCV (79.0-92.2) fl MCH (25.7-32.2) pg MCHC (32.2-35.5) g/dl RDW Std Deviation (35.1-43.9) fL Plt Count (163-337) K/mm3 MPV (9.4-12.3) fl Neut % (Auto) (34.0-67.9) % Lymph % (Auto) (21.8-53.1) % [place] % (Auto) (5.3-12.2) % Eos % (Auto) (0.8-7.0) Baso % (Auto) (0.1-1.2) % Neut # (Auto) (1.78-5.38) K/mm3 Lymph # (Auto) (1.32-3.57) K/mm3 [place] # (Auto) (0.30-0.82) K/mm3 Eos # (Auto) (0.04-0.54) K/mm3 Baso # (Auto) (0.01-0.08) K/mm3 D-Dimer, Quantitative (0.19-0.50) mg/L Puncture Site ABG pH (7.35-7.45) ABG pCO2 (35.0-45.0) mmHg ABG pO2 (80.0-100.0) mmHg ABG HCO3 (22.0-26.0) meq/L ABG O2 Saturation (96.0-97.0) % ABG Base Excess (-2-2.0) Carson Test O2 Delivery Device FiO2 (21.00-100.00) % Sodium 127 L (136-145) mEq/L Potassium 5.6 H (3.5-5.1) mEq/L Chloride 88 L (98-107) mEq/L Carbon Dioxide 9 L (21-32) mEq/L Anion Gap 35.6 H (5-15) BUN 33 H (7-18) mg/dL Creatinine 1.8 H (0.7-1.3) mg/dL Est Cr Clr Drug Dosing 49.56 mL/min Estimated GFR (MDRD) 48 (>60) mL/min BUN/Creatinine Ratio 18.3 H (14-18) Glucose 883 H* (74-106) mg/dL Hemoglobin A1c (4.50-6.20) % Lactic Acid 4.6 H (0.4-2.0) mmol/L Calcium 10.1 (8.5-10.1) mg/dL Magnesium 1.7 L (1.8-2.4) mg/dl Total Bilirubin 1.2 H (0.2-1.0) mg/dL AST 11 L (15-37) U/L ALT 24 (16-63) U/L Alkaline Phosphatase 80 (46-116) U/L Troponin I < 0.017 (0.00-0.056) ng/mL Total Protein 7.8 (6.4-8.2) g/dl Albumin 4.5 (3.4-5.0) g/dl Globulin 3.3 gm/dL Albumin/Globulin Ratio 1.4 (1-2) Urine Color (Yellow) Urine Appearance (Clear) Urine pH (5.0-8.0) Ur Specific [place] (1.005-1.030) Urine Protein (Negative) Urine Glucose (UA) (Negative) Urine Ketones (Negative) Urine Occult Blood (Negative) Urine Nitrite (Negative) Urine Bilirubin (Negative) Urine Urobilinogen (0.2-1.0) Ur Leukocyte Esterase (Negative) Urine RBC (0-5) /hpf Urine WBC (0-5) /hpf Ur Epithelial Cells (0-5) /hpf Urine Bacteria (FEW) /hpf Urine Mucus (FEW) /hpf Ketones 11.44 (0.0-0.3) mM 03/08/18 03/08/18 Range/Units 19:12 20:10 WBC (4.23-9.07) K/mm3 RBC (4.63-6.08) M/mm3 Hgb (13.7-17.5) gm/L Hct (40.1-51.0) % MCV (79.0-92.2) fl MCH (25.7-32.2) pg MCHC (32.2-35.5) g/dl RDW Std Deviation (35.1-43.9) fL Plt Count (163-337) K/mm3 MPV (9.4-12.3) fl Neut % (Auto) (34.0-67.9) % Lymph % (Auto) (21.8-53.1) % [place] % (Auto) (5.3-12.2) % Eos % (Auto) (0.8-7.0) Baso % (Auto) (0.1-1.2) % Neut # (Auto) (1.78-5.38) K/mm3 Lymph # (Auto) (1.32-3.57) K/mm3 [place] # (Auto) (0.30-0.82) K/mm3 Eos # (Auto) (0.04-0.54) K/mm3 Baso # (Auto) (0.01-0.08) K/mm3 D-Dimer, Quantitative (0.19-0.50) mg/L Puncture Site ABG pH (7.35-7.45) ABG pCO2 (35.0-45.0) mmHg ABG pO2 (80.0-100.0) mmHg ABG HCO3 (22.0-26.0) meq/L ABG O2 Saturation (96.0-97.0) % ABG Base Excess (-2-2.0) Carson Test O2 Delivery Device FiO2 (21.00-100.00) % Sodium (136-145) mEq/L Potassium (3.5-5.1) mEq/L Chloride (98-107) mEq/L Carbon Dioxide (21-32) mEq/L Anion Gap (5-15) BUN (7-18) mg/dL Creatinine (0.7-1.3) mg/dL Est Cr Clr Drug Dosing mL/min Estimated GFR (MDRD) (>60) mL/min BUN/Creatinine Ratio (14-18) Glucose (74-106) mg/dL Hemoglobin A1c 9.90 H (4.50-6.20) % Lactic Acid (0.4-2.0) mmol/L Calcium (8.5-10.1) mg/dL Magnesium (1.8-2.4) mg/dl Total Bilirubin (0.2-1.0) mg/dL AST (15-37) U/L ALT (16-63) U/L Alkaline Phosphatase (46-116) U/L Troponin I (0.00-0.056) ng/mL Total Protein (6.4-8.2) g/dl Albumin (3.4-5.0) g/dl Globulin gm/dL Albumin/Globulin Ratio (1-2) Urine Color Yellow (Yellow) Urine Appearance Slt cloudy H (Clear) Urine pH 5.5 (5.0-8.0) Ur Specific [place] 1.015 (1.005-1.030) Urine Protein 1+ H (Negative) Urine Glucose (UA) 2+ H (Negative) Urine Ketones 3+ H (Negative) Urine Occult Blood Negative (Negative) Urine Nitrite Negative (Negative) Urine Bilirubin Negative (Negative) Urine Urobilinogen 0.2 (0.2-1.0) Ur Leukocyte Esterase Negative (Negative) Urine RBC 0-5 (0-5) /hpf Urine WBC 0-5 (0-5) /hpf Ur Epithelial Cells 0-5 (0-5) /hpf Urine Bacteria Not seen (FEW) /hpf Urine Mucus Not seen (FEW) /hpf Ketones (0.0-0.3) mM Meds: Medications Generic Name Dose Route Start Last Admin Trade Name Freq PRN Reason Stop Dose Admin Albuterol/Ipratropium 3 ml 03/08/18 21:39 Duoneb 3.0-0.5 Mg/3 Ml NEB Q4H PRN Shortness Of Breath/wheezing Bisacodyl 5 mg 03/08/18 21:39 Dulcolax PO DAILY PRN Constipation Docusate Sodium 100 mg 03/08/18 21:39 Colace PO BID PRN Constipation Hydralazine HCl 20 mg 03/08/18 21:54 Apresoline IVPUSH Q4H PRN Hypertension Hydromorphone HCl 0.25 mg 03/08/18 21:39 Dilaudid IVPUSH Q2H PRN Pain (severe 7-10) Promethazine HCl 12.5 mg/ 50.5 mls @ 100 mls/hr 03/08/18 21:39 Sodium Chloride IV Q6H PRN Nausea/Vomiting Insulin Human Regular 100 unit 100 mls @ 5.39 mls/hr 03/08/18 22:45 / Sodium Chloride IV TITRATE PRINCE Protocol 0.1 UNITS/KG/HR Sodium Chloride 1,000 mls @ 999 mls/hr 03/08/18 22:30 Normal Saline IV 03/10/18 23:31 ASDIRECTED [facility] Ibuprofen 600 mg 03/08/18 21:39 Motrin PO Q6H PRN Pain (moderate 4-6) Lorazepam 1 mg 03/08/18 21:39 Ativan IV Q6H PRN Nausea/Vomiting Magnesium Hydroxide 30 ml 03/08/18 21:39 Milk Of Magnesia PO Q12H PRN Constipation Metoprolol Tartrate 5 mg 03/08/18 21:54 Lopressor IVPUSH Q4H PRN Tachycardia Miscellaneous Information 1 ea 03/09/18 09:00 Remove Patch TRDERM DAILY [facility] Nicotine 21 mg 03/08/18 21:45 Habitrol TRDERM DAILY [facility] Ondansetron HCl 4 mg 03/08/18 21:39 Zofran IV Q6H PRN Nausea/Vomiting Ondansetron HCl 4 mg 03/08/18 21:39 Zofran Odt PO Q6H PRN nausea, able to take PO Oxycodone HCl 5 mg 03/08/18 21:39 Oxycodone PO Q4H PRN Pain (moderate 4-6) Polyethylene Glycol 17 gm 03/08/18 21:39 Miralax PO DAILY PRN Constipation Promethazine HCl 25 mg 03/08/18 21:39 Phenergan PO Q6H PRN Nausea/Vomiting Senna/Docusate Sodium 1 tab 03/08/18 21:39 Senna Plus PO BID PRN Constipation Sodium Chloride 10 ml 03/08/18 19:08 03/08/18 19:28 Saline Flush FLUSH 10 ml ASDIRECTED PRN Administration Keep Vein Open Temazepam 15 mg 03/08/18 21:39 Restoril PO BEDTIME PRN Sleep Discontinued Medications Generic Name Dose Route Start Last Admin Trade Name Freq PRN Reason Stop Dose Admin Sodium Chloride 1,000 mls @ 1,000 mls/hr 03/08/18 19:09 03/08/18 19:27 Normal Saline IV 03/08/18 20:08 1,000 mls/hr ONETIME ONE Administration Sodium Chloride 1,000 mls @ 1,000 mls/hr 03/08/18 19:10 03/08/18 19:28 Normal Saline IV 03/08/18 20:09 1,000 mls/hr ONETIME ONE Administration Insulin Human Regular 100 unit 100 mls @ 5.39 mls/hr 03/08/18 20:15 03/08/18 20:29 / Sodium Chloride IV 0.1 units/kg/hr TITRATE PRINCE 5.39 mls/hr Administration Protocol 0.1 UNITS/KG/HR Sodium Chloride 1,000 mls @ 1,000 mls/hr 03/08/18 20:09 03/08/18 20:36 Normal Saline IV 03/08/18 21:08 1,000 mls/hr ONETIME ONE Administration Magnesium Sulfate 2 gm/ Premix 50 mls @ 25 mls/hr 03/08/18 20:16 03/08/18 20: 27 IV 03/08/18 22:15 25 mls/hr ONETIME ONE Administration Sodium Chloride 1,000 mls @ 250 mls/hr 03/08/18 22:15 Normal Saline IV 03/11/18 02:14 ASDIRECTED [facility] - Re-Assessments/Exams Free Text/Narrative Re-Assessment/Exam: 03/08/18 19:26 EKG shows NSR, mildly prolonged TQc at 461, no significant ST/T abnormality. NS 2L ordered. 03/08/18 20:16 Labs show pH of 7.2, glucose in high 800's, bicarb 9, AG 36, potassium 5.6, creatinine 1.8. Clinical picture is consistent with DKA. UA pending. Will start insulin drip. Additional 1L of NS ordered. Discussed with Dr. Scott who will eval him in ED. Anticipate admission to ICU. Departure - Departure Time of Disposition: 22:00 Disposition: Admitted As Inpatient 68 Clinical Impression: Hyperglycemia due to type 1 diabetes mellitus, Acute kidney injury Diabetic ketoacidosis Qualifiers: Diabetes mellitus type: type 1 Diabetes mellitus complication detail: without coma Qualified Code(s): E10.10 - Type 1 diabetes mellitus with ketoacidosis without coma Vomiting Qualifiers: Vomiting type: unspecified Vomiting Intractability: non-intractable Nausea presence: with nausea Qualified Code(s): R11.2 - Nausea with vomiting, unspecified - Discharge Information Critical Care Note - Critical Care Note Total Time (mins): 30 - My Orders Last 24 Hours: My Active Orders 03/08/18 19:08 EKG 12 Lead [EKG Documentation Completion] [RC] STAT Peripheral IV Care [RC] Q2HR Sodium Chloride 0.9% [Saline Flush] 10 ml FLUSH ASDIRECTED PRN Peripheral IV Insertion Adult [OM.PC] Routine 03/08/18 20:09 Chest 1V Frontal [CR] Stat 03/08/18 20:10 UA W/MICROSCOPIC [URIN] Stat - Assessment/Plan Last 24 Hours: My Active Orders 03/08/18 19:08 EKG 12 Lead [EKG Documentation Completion] [RC] STAT Peripheral IV Care [RC] Q2HR Sodium Chloride 0.9% [Saline Flush] 10 ml FLUSH ASDIRECTED PRN Peripheral IV Insertion Adult [OM.PC] Routine 03/08/18 20:09 Chest 1V Frontal [CR] Stat 03/08/18 20:10 UA W/MICROSCOPIC [URIN] Stat
[2018-03-08] MEDS ORDERED: Magnesium Sulfate/Water 2 GM in Premix Bag 1 BAG IV ONE (20:16)
--- NOTE | 2018-03-08 21:12 | PCM.HP ---
H&P History of Present Illness - General Date of Service: 03/08/18 Source of Information: Patient, Family, Old Records, Provider History Limitations: Reports: No Limitations - History of Present Illness Initial Comments - Free Text/Narative: This is a 23 y/o male with h/o DM1 who is very well-known to this hospital from previous multiple admissions who comes in for DKA. He was last hospitalized for DKA in December of this year. His DKA is associated with palpitations, nausea/ vomiting along with mild abdominal cramps. He denies any fever or chills. His most recent serum glucose level was 883. On presentation, his initial ED labs show pH of 7.2, Serum Glucose 883, Serum Osmolality 315, Bicarb 9, Na 127, Potassium 5.6, Anion Gap 36, HCO3 16, creatinine 1.8 and Ketones 11.44. He is subsequently admitted to the ICU. He is a Full Code. His PCP is Dr. Jae Galicia. Abdominal Pain Score (Numeric/FACES): 5 - Related Data Allergies/Adverse Reactions: Allergies Allergy/AdvReac Type Severity Reaction Status Date / Time No Known Allergies Allergy Verified 03/08/18 19:03 Home Medications: Home Meds Insulin Pump/Infus. Set/Meter [Accu-Chek Combo System] 1.2 unit SQ ASDIRECTED [History] Past Medical History Cardiovascular History: Reports: Hypertension Gastrointestinal History: Reports: Other (See Below) Other Gastrointestinal History: patient has had liver biopsy Musculoskeletal History: Reports: Fracture Other Musculoskeletal History: "boxer fracture" - fifth knuckle fracture November 2016 Neurological History: Reports: Head Trauma Psychiatric History: Reports: Depression Endocrine/Metabolic History: Reports: Diabetes, Type I Other Endocrine/Metabolic History: Diabetic ketoacidosis. Insulin pump. brittle diabetic - Infectious Disease History Infectious Disease History: Reports: None - Past Surgical History Cardiovascular Surgical History: Reports: None Male Surgical History: Reports: Circumcision Social & Family History - Family History Family Medical History: Noncontributory Cardiac: Reports: DC - Tobacco Use Smoking Status *Q: Never Smoker - Caffeine Use Caffeine Use: Reports: Coffee, Energy Drinks Other Caffeine Use: 1-2 cups - Recreational Drug Use Recreational Drug Use: No - Living Situation & Occupation Living situation: Reports: Single, with Family Occupation: Unemployed H&P Review of Systems - Review of Systems: Review Of Systems: See Below General: Reports: Malaise, Weakness, Fatigue. Denies: Fever HEENT: Reports: No Symptoms Pulmonary: Reports: No Symptoms. Denies: Shortness of Breath, Cough Cardiovascular: Reports: No Symptoms. Denies: Chest Pain Gastrointestinal: Reports: Abdominal Pain, Nausea, Vomiting Genitourinary: Reports: No Symptoms Musculoskeletal: Reports: No Symptoms Skin: Reports: No Symptoms Psychiatric: Reports: No Symptoms Neurological: Reports: No Symptoms Hematologic/Lymphatic: Reports: No Symptoms Immunologic: Reports: No Symptoms Exam - Exam Exam: See Below - Vital Signs Vital Signs: Last Vital Signs Temp 97.1 F 03/08/18 18:59 Pulse 128 H 03/08/18 18:59 Resp 18 03/08/18 18:59 BP 101/55 L 03/08/18 18:59 Pulse Ox Weight: 119 lb - Exam Quality Assessment: DVT Prophylaxis General: Alert, Oriented, Cooperative, Mild Distress HEENT: Conjunctiva Clear, EACs Clear, EOMI, Hearing Intact, Nares Patent, Normal Nasal Septum, Posterior Pharynx Clear, TMs Clear, PERRLA. No: Mucosa Moist & [place] (dry mucosa) Neck: Supple, Trachea Midline, 2 Lungs: Clear to Auscultation, Normal Respiratory Effort Cardiovascular: Regular Rhythm, Tachycardia GI/Abdominal Exam: Normal Bowel Sounds, Soft, Non-Tender, No Organomegaly, No Distention, No Abnormal Bruit, No Mass, Pelvis Stable (Male) Exam: Deferred Rectal (Males) Exam: Deferred Back Exam: Normal Inspection, Full Range of Motion, NT Extremities: Normal Inspection, Normal Range of Motion, Non-Tender, No Pedal Edema, Normal Capillary Refill Peripheral Pulses: 3+: Posterior Tibial (L), Posterior Tibial (R), Dorsalis Pedis (L), Dorsalis Pedis (R) Skin: Warm, Dry, Intact Neurological: Cranial Nerves Intact (grossly), Reflexes Equal Bilateral Neuro Extensive - Mental Status: Alert, Oriented x3, Normal Mood/Affect, Normal Cognition Psychiatric: Alert, Normal Affect, Normal Mood - Patient Data Lab Results Last 24 hrs: Laboratory Results - last 24 hr 03/08/18 03/08/18 03/08/18 Range/Units 19:12 19:12 19:12 WBC 13.92 H (4.23-9.07) K/mm3 RBC 4.95 (4.63-6.08) M/mm3 Hgb 14.5 (13.7-17.5) gm/L Hct 39.0 L (40.1-51.0) % MCV 78.8 L (79.0-92.2) fl MCH 29.3 (25.7-32.2) pg MCHC 37.1 H (32.2-35.5) g/dl RDW Std Deviation 39.5 (35.1-43.9) fL Plt Count 424 H (163-337) K/mm3 MPV 10.1 (9.4-12.3) fl Neut % (Auto) 69.9 H (34.0-67.9) % Lymph % (Auto) 23.3 (21.8-53.1) % [place] % (Auto) 5.6 (5.3-12.2) % Eos % (Auto) 0.2 L (0.8-7.0) Baso % (Auto) 0.4 (0.1-1.2) % Neut # (Auto) 9.73 H (1.78-5.38) K/mm3 Lymph # (Auto) 3.25 (1.32-3.57) K/mm3 [place] # (Auto) 0.78 (0.30-0.82) K/mm3 Eos # (Auto) 0.03 L (0.04-0.54) K/mm3 Baso # (Auto) 0.05 (0.01-0.08) K/mm3 D-Dimer, Quantitative < 0.19 L (0.19-0.50) mg/L Puncture Site Rt radial ABG pH 7.20 L (7.35-7.45) ABG pCO2 15.2 L* (35.0-45.0) mmHg ABG pO2 121.0 H (80.0-100.0) mmHg ABG HCO3 5.8 L (22.0-26.0) meq/L ABG O2 Saturation 98.9 H (96.0-97.0) % ABG Base Excess -21.1 L (-2-2.0) Carson Test Positive O2 Delivery Device Room air FiO2 21.00 (21.00-100.00) % Sodium (136-145) mEq/L Potassium (3.5-5.1) mEq/L Chloride (98-107) mEq/L Carbon Dioxide (21-32) mEq/L Anion Gap (5-15) BUN (7-18) mg/dL Creatinine (0.7-1.3) mg/dL Est Cr Clr Drug Dosing mL/min Estimated GFR (MDRD) (>60) mL/min BUN/Creatinine Ratio (14-18) Glucose (74-106) mg/dL Lactic Acid (0.4-2.0) mmol/L Calcium (8.5-10.1) mg/dL Magnesium (1.8-2.4) mg/dl Total Bilirubin (0.2-1.0) mg/dL AST (15-37) U/L ALT (16-63) U/L Alkaline Phosphatase (46-116) U/L Troponin I (0.00-0.056) ng/mL Total Protein (6.4-8.2) g/dl Albumin (3.4-5.0) g/dl Globulin gm/dL Albumin/Globulin Ratio (1-2) Urine Color (Yellow) Urine Appearance (Clear) Urine pH (5.0-8.0) Ur Specific [place] (1.005-1.030) Urine Protein (Negative) Urine Glucose (UA) (Negative) Urine Ketones (Negative) Urine Occult Blood (Negative) Urine Nitrite (Negative) Urine Bilirubin (Negative) Urine Urobilinogen (0.2-1.0) Ur Leukocyte Esterase (Negative) Urine RBC (0-5) /hpf Urine WBC (0-5) /hpf Ur Epithelial Cells (0-5) /hpf Urine Bacteria (FEW) /hpf Urine Mucus (FEW) /hpf 03/08/18 03/08/18 03/08/18 Range/Units 19:12 19:12 20:10 WBC (4.23-9.07) K/mm3 RBC (4.63-6.08) M/mm3 Hgb (13.7-17.5) gm/L Hct (40.1-51.0) % MCV (79.0-92.2) fl MCH (25.7-32.2) pg MCHC (32.2-35.5) g/dl RDW Std Deviation (35.1-43.9) fL Plt Count (163-337) K/mm3 MPV (9.4-12.3) fl Neut % (Auto) (34.0-67.9) % Lymph % (Auto) (21.8-53.1) % [place] % (Auto) (5.3-12.2) % Eos % (Auto) (0.8-7.0) Baso % (Auto) (0.1-1.2) % Neut # (Auto) (1.78-5.38) K/mm3 Lymph # (Auto) (1.32-3.57) K/mm3 [place] # (Auto) (0.30-0.82) K/mm3 Eos # (Auto) (0.04-0.54) K/mm3 Baso # (Auto) (0.01-0.08) K/mm3 D-Dimer, Quantitative (0.19-0.50) mg/L Puncture Site ABG pH (7.35-7.45) ABG pCO2 (35.0-45.0) mmHg ABG pO2 (80.0-100.0) mmHg ABG HCO3 (22.0-26.0) meq/L ABG O2 Saturation (96.0-97.0) % ABG Base Excess (-2-2.0) [place] Test O2 Delivery Device FiO2 (21.00-100.00) % Sodium 127 L (136-145) mEq/L Potassium 5.6 H (3.5-5.1) mEq/L Chloride 88 L (98-107) mEq/L Carbon Dioxide 9 L (21-32) mEq/L Anion Gap 35.6 H (5-15) BUN 33 H (7-18) mg/dL Creatinine 1.8 H (0.7-1.3) mg/dL Est Cr Clr Drug Dosing 49.56 mL/min Estimated GFR (MDRD) 48 (>60) mL/min BUN/Creatinine Ratio 18.3 H (14-18) Glucose 883 H* (74-106) mg/dL Lactic Acid 4.6 H (0.4-2.0) mmol/L Calcium 10.1 (8.5-10.1) mg/dL Magnesium 1.7 L (1.8-2.4) mg/dl Total Bilirubin 1.2 H (0.2-1.0) mg/dL AST 11 L (15-37) U/L ALT 24 (16-63) U/L Alkaline Phosphatase 80 (46-116) U/L Troponin I < 0.017 (0.00-0.056) ng/mL Total Protein 7.8 (6.4-8.2) g/dl Albumin 4.5 (3.4-5.0) g/dl Globulin 3.3 gm/dL Albumin/Globulin Ratio 1.4 (1-2) Urine Color Yellow (Yellow) Urine Appearance Slt cloudy H (Clear) Urine pH 5.5 (5.0-8.0) Ur Specific [place] 1.015 (1.005-1.030) Urine Protein 1+ H (Negative) Urine Glucose (UA) 2+ H (Negative) Urine Ketones 3+ H (Negative) Urine Occult Blood Negative (Negative) Urine Nitrite Negative (Negative) Urine Bilirubin Negative (Negative) Urine Urobilinogen 0.2 (0.2-1.0) Ur Leukocyte Esterase Negative (Negative) Urine RBC 0-5 (0-5) /hpf Urine WBC 0-5 (0-5) /hpf Ur Epithelial Cells 0-5 (0-5) /hpf Urine Bacteria Not seen (FEW) /hpf Urine Mucus Not seen (FEW) /hpf Result Diagrams: 03/08/18 19:12 03/08/18 22:00 - Problem List (1) Diabetic ketoacidosis SNOMED Code(s): 472658909, 345492968 ICD Code: E13.10 - OTH DIABETES MELLITUS WITH KETOACIDOSIS WITHOUT COMA Status: Acute Priority: High Current Visit: Yes Qualifiers: Diabetes mellitus type: type 1 Diabetes mellitus complication detail: without coma Qualified Code(s): E10.10 - Type 1 diabetes mellitus with ketoacidosis without coma (2) Hyperglycemia due to type 1 diabetes mellitus SNOMED Code(s): 538067230952351, 721476424256780 ICD Code: E10.65 - TYPE 1 DIABETES MELLITUS WITH HYPERGLYCEMIA Status: Acute Priority: High Current Visit: Yes (3) Medical non-compliance SNOMED Code(s): 320772648 ICD Code: Z91.19 - PATIENT'S NONCOMPLIANCE W OTH MEDICAL TREATMENT AND REGIMEN Status: Chronic Priority: High Current Visit: Yes Problem List Initiated/Reviewed/Updated: Yes Orders Last 24hrs: Active Orders 24 hr Category Date Time Status EKG 12 Lead [EKG Documentation Completion] [RC] STAT Care 03/08/18 19:08 Active Peripheral IV Care [] . DIRECTED Care 03/08/18 19:08 Active Peripheral IV Care [] . DIRECTED Care 03/08/18 19:09 Active Chest 1V Frontal [CR] Stat Exams 03/08/18 20:09 Taken UA W/MICROSCOPIC [URIN] Stat Lab 03/08/18 20:10 Ordered Insulin Regular, Human [HumuLIN R] 100 unit Med 03/08/18 20:15 Active Sodium Chloride 0.9% [Normal Saline] 99 ml IV TITRATE Magnesium Sulfate/Water [Magnesium Sulfate 2 GM in Med 03/08/18 20:16 Active Water 50 ML] 2 gm Premix Bag 1 bag IV ONETIME Sodium Chloride 0.9% [Normal Saline] 1,000 ml Med 03/08/18 20:09 Active IV ONETIME Sodium Chloride 0.9% [Saline Flush] Med 03/08/18 19:08 Active 10 ml FLUSH ASDIRECTED PRN Peripheral IV Insertion Adult [OM.PC] Routine Oth 03/08/18 19:08 Ordered Medication Orders Insulin Human Regular 100 unit (/ Sodium Chloride) 100 mls @ 5.39 mls/hr IV TITRATE PRINCE; Protocol Last Admin: 03/08/18 20:29 Dose: 0.1 units/kg/hr, 5.39 mls/hr Sodium Chloride (Normal Saline) 1,000 mls @ 1,000 mls/hr IV ONETIME ONE Stop: 03/08/18 21:08 Last Admin: 03/08/18 20:36 Dose: 1,000 mls/hr Magnesium Sulfate 2 gm/ Premix 50 mls @ 25 mls/hr IV ONETIME ONE Stop: 03/08/18 22:15 Last Admin: 03/08/18 20:27 Dose: 25 mls/hr Sodium Chloride (Saline Flush) 10 ml FLUSH ASDIRECTED PRN PRN Reason: Keep Vein Open Last Admin: 03/08/18 19:28 Dose: 10 ml Assessment/Plan Comment:: I/P: Acute: 1. Diabetic Ketoacidosis - Ketones 11.44 ( > 5.0 mM is DKA) - DKA procotol - Aggressive IV hydration - NPO until AG resolves - Diabetic Education 2. DM1 - Chronic Medical Non-compliance - Continue Insulin regimen - ISS coverage - Will repeat A1C level - Diabetic consult 3. Severe Dehydration - Serum Osmolality is 315, Anion Gap 35.6 - Aggressive IV Hydration - Monitor UOP 4. Nicotine Dependence - Smokes 1ppd - Nicotine Patch 5. Medical Non-compliance - A1C 9.9 - He has been admitted here multiple times - He states he has been seeing a diabetic specialist and they are "trying to figure out" the amount of insulin he needs - He states his Insulin pump is working Chronic: RLS HTN Hx/o DC PUD Chronic Pain Syndrome Depression Hypothyroidism Hx/o Spinal Stenosis Obesity- Advised LSM Plan: Transferred to ICU Insulin drip Serial BMP Routine AM labs Code status:Full Code; PCP: Dr. Jae Galicia
[2018-03-08] MEDS ORDERED: LORazepam 2 MG/ML SDV IV PRN (21:39)
[2018-03-08] MEDS ORDERED: Ondansetron 4 MG Tab.DIS PO PRN (21:39)
[2018-03-08] MEDS ORDERED: Promethazine 12.5 MG in Sodium Chloride 0.9% 50 ML IV PRN (21:39)
[2018-03-08] MEDS ORDERED: oxyCODONE 5 MG Tab PO PRN (21:39)
[2018-03-08] MEDS ORDERED: Albuterol/Ipratropium 3.0-0.5 MG/3 ML Neb Soln NEB PRN (21:39)
[2018-03-08] MEDS ORDERED: Ondansetron 4 MG/2 ML SDV IV PRN (21:39)
[2018-03-08] MEDS ORDERED: HYDROmorphone 0.5 MG/0.5 ML SYRINGE IVPUSH PRN (21:39)
[2018-03-08] MEDS ORDERED: Promethazine 25 MG Tab PO PRN (21:39)
[2018-03-08] MEDS ORDERED: Bisacodyl 5 MG Tab PO PRN (21:39)
[2018-03-08] MEDS ORDERED: Polyethylene Glycol 3350 Powder 17 GM Packet PO PRN (21:39)
[2018-03-08] MEDS ORDERED: Magnesium Hydroxide 400 MG/5 ML Susp 30 ML Cup PO PRN (21:39)
[2018-03-08] MEDS ORDERED: Temazepam 15 MG Cap PO PRN (21:39)
[2018-03-08] MEDS ORDERED: Ibuprofen 600 MG Tab PO PRN (21:39)
[2018-03-08] MEDS ORDERED: Docusate Sodium 100 MG Cap PO PRN (21:39)
[2018-03-08] MEDS ORDERED: Metoprolol Tartrate 5 MG/5 ML SDV IVPUSH PRN (21:54)
[2018-03-08] MEDS ORDERED: hydrALAZINE 20 MG/ML SDV IVPUSH PRN (21:54)
[2018-03-08] MEDS ORDERED: Sodium Chloride 0.9% 1,000 ML IV SCH (22:15)
[2018-03-08] MEDS: Nicotine 21 MG/24 Hr Patch TRDERM SCH (22:57)
[2018-03-08] MEDS: Sodium Chloride 0.9% 1,000 ML IV SCH ×2 (23:00→23:58)
[2018-03-09] MEDS: Dextrose 5% in Water 1,000 ML IV SCH ×2 (03:13→07:08)
[2018-03-09] MEDS: Sodium Chloride 0.9% 1,000 ML IV SCH (03:15)
[2018-03-09] MEDS: Nicotine 21 MG/24 Hr Patch TRDERM SCH (09:09)
--- NOTE | 2018-03-09 10:18 | CR ---
Chest: Two views of the chest were obtained. Comparison: Prior chest x-ray of 03/08/18. Heart size and mediastinum are normal. Lungs are clear. Bony structures are unremarkable. Impression: 1. Nothing acute is seen on two-view chest x-ray. Diagnostic code #1
[2018-03-09] MEDS: Dextrose 5%-0.9% NaCl with KCl 1,000 ML IV SCH ×2 (11:19→15:44)
[2018-03-09] MEDS: Sodium Chloride 0.9% 1,000 ML IV ONE ×3 (12:45→14:54)
[2018-03-09] MEDS ORDERED: Magnesium Sulfate/Water 2 GM in Premix Bag 1 BAG IV ONE (13:00)
[2018-03-09] MEDS ORDERED: Potassium Chloride 20 MEQ Tab.ER PO ONE (15:05)
--- NOTE | 2018-03-09 15:47 | PCM.PN ---
- General Info Date of Service: 03/09/18 Functional Status: Reports: Tolerating Diet, Ambulating, Urinating - Review of Systems General: Reports: Weakness, Fatigue HEENT: Reports: No Symptoms Pulmonary: Reports: No Symptoms Cardiovascular: Reports: No Symptoms Gastrointestinal: Reports: Nausea (resolved), Vomiting (resolved) Genitourinary: Reports: No Symptoms Musculoskeletal: Reports: No Symptoms Skin: Reports: No Symptoms Neurological: Reports: No Symptoms Psychiatric: Reports: No Symptoms - Patient Data Vitals - Most Recent: Last Vital Signs Temp 36.9 C 03/09/18 12:00 Pulse 99 03/09/18 12:00 Resp 16 03/09/18 12:00 BP 125/78 03/09/18 12:00 Pulse Ox 100 03/09/18 12:00 Weight - Most Recent: 53.524 kg I&O - Last 24 Hours: Intake & Output 03/09/18 03/09/18 03/09/18 06:59 14:59 22:59 Intake Total 5140 1860 Output Total 1375 1250 Balance 3765 610 Lab Results Last 24 Hours: Laboratory Results - last 24 hr 03/08/18 03/08/18 03/08/18 Range/Units 19:12 19:12 19:12 WBC 13.92 H (4.23-9.07) K/mm3 RBC 4.95 (4.63-6.08) M/mm3 Hgb 14.5 (13.7-17.5) gm/L Hct 39.0 L (40.1-51.0) % MCV 78.8 L (79.0-92.2) fl MCH 29.3 (25.7-32.2) pg MCHC 37.1 H (32.2-35.5) g/dl RDW Std Deviation 39.5 (35.1-43.9) fL Plt Count 424 H (163-337) K/mm3 MPV 10.1 (9.4-12.3) fl Neut % (Auto) 69.9 H (34.0-67.9) % Lymph % (Auto) 23.3 (21.8-53.1) % Robeson % (Auto) 5.6 (5.3-12.2) % Eos % (Auto) 0.2 L (0.8-7.0) Baso % (Auto) 0.4 (0.1-1.2) % Neut # (Auto) 9.73 H (1.78-5.38) K/mm3 Lymph # (Auto) 3.25 (1.32-3.57) K/mm3 [place] # (Auto) 0.78 (0.30-0.82) K/mm3 Eos # (Auto) 0.03 L (0.04-0.54) K/mm3 Baso # (Auto) 0.05 (0.01-0.08) K/mm3 D-Dimer, Quantitative < 0.19 L (0.19-0.50) mg/L Puncture Site Rt radial ABG pH 7.20 L (7.35-7.45) ABG pCO2 15.2 L* (35.0-45.0) mmHg ABG pO2 121.0 H (80.0-100.0) mmHg ABG HCO3 5.8 L (22.0-26.0) meq/L ABG O2 Saturation 98.9 H (96.0-97.0) % ABG Base Excess -21.1 L (-2-2.0) Carson Test Positive O2 Delivery Device Room air FiO2 21.00 (21.00-100.00) % Sodium (136-145) mEq/L Potassium (3.5-5.1) mEq/L Chloride (98-107) mEq/L Carbon Dioxide (21-32) mEq/L Anion Gap (5-15) BUN (7-18) mg/dL Creatinine (0.7-1.3) mg/dL Est Cr Clr Drug Dosing mL/min Estimated GFR (MDRD) (>60) mL/min BUN/Creatinine Ratio (14-18) Glucose (74-106) mg/dL POC Glucose (70-105) mg/dL Hemoglobin A1c (4.50-6.20) % Lactic Acid (0.4-2.0) mmol/L Calcium (8.5-10.1) mg/dL Magnesium (1.8-2.4) mg/dl Total Bilirubin (0.2-1.0) mg/dL AST (15-37) U/L ALT (16-63) U/L Alkaline Phosphatase (46-116) U/L Troponin I (0.00-0.056) ng/mL Total Protein (6.4-8.2) g/dl Albumin (3.4-5.0) g/dl Globulin gm/dL Albumin/Globulin Ratio (1-2) Lipase (73-393) U/L Urine Color (Yellow) Urine Appearance (Clear) Urine pH (5.0-8.0) Ur Specific [place] (1.005-1.030) Urine Protein (Negative) Urine Glucose (UA) (Negative) Urine Ketones (Negative) Urine Occult Blood (Negative) Urine Nitrite (Negative) Urine Bilirubin (Negative) Urine Urobilinogen (0.2-1.0) Ur Leukocyte Esterase (Negative) Urine RBC (0-5) /hpf Urine WBC (0-5) /hpf Ur Epithelial Cells (0-5) /hpf Urine Bacteria (FEW) /hpf Urine Mucus (FEW) /hpf Ketones (0.0-0.3) mM 03/08/18 03/08/18 03/08/18 Range/Units 19:12 19:12 19:12 WBC (4.23-9.07) K/mm3 RBC (4.63-6.08) M/mm3 Hgb (13.7-17.5) gm/L Hct (40.1-51.0) % MCV (79.0-92.2) fl MCH (25.7-32.2) pg MCHC (32.2-35.5) g/dl RDW Std Deviation (35.1-43.9) fL Plt Count (163-337) K/mm3 MPV (9.4-12.3) fl Neut % (Auto) (34.0-67.9) % Lymph % (Auto) (21.8-53.1) % Robeson % (Auto) (5.3-12.2) % Eos % (Auto) (0.8-7.0) Baso % (Auto) (0.1-1.2) % Neut # (Auto) (1.78-5.38) K/mm3 Lymph # (Auto) (1.32-3.57) K/mm3 [place] # (Auto) (0.30-0.82) K/mm3 Eos # (Auto) (0.04-0.54) K/mm3 Baso # (Auto) (0.01-0.08) K/mm3 D-Dimer, Quantitative (0.19-0.50) mg/L Puncture Site ABG pH (7.35-7.45) ABG pCO2 (35.0-45.0) mmHg ABG pO2 (80.0-100.0) mmHg ABG HCO3 (22.0-26.0) meq/L ABG O2 Saturation (96.0-97.0) % ABG Base Excess (-2-2.0) Carson Test O2 Delivery Device FiO2 (21.00-100.00) % Sodium 127 L (136-145) mEq/L Potassium 5.6 H (3.5-5.1) mEq/L Chloride 88 L (98-107) mEq/L Carbon Dioxide 9 L (21-32) mEq/L Anion Gap 35.6 H (5-15) BUN 33 H (7-18) mg/dL Creatinine 1.8 H (0.7-1.3) mg/dL Est Cr Clr Drug Dosing 49.56 mL/min Estimated GFR (MDRD) 48 (>60) mL/min BUN/Creatinine Ratio 18.3 H (14-18) Glucose 883 H* (74-106) mg/dL POC Glucose (70-105) mg/dL Hemoglobin A1c (4.50-6.20) % Lactic Acid 4.6 H (0.4-2.0) mmol/L Calcium 10.1 (8.5-10.1) mg/dL Magnesium 1.7 L (1.8-2.4) mg/dl Total Bilirubin 1.2 H (0.2-1.0) mg/dL AST 11 L (15-37) U/L ALT 24 (16-63) U/L Alkaline Phosphatase 80 (46-116) U/L Troponin I < 0.017 (0.00-0.056) ng/mL Total Protein 7.8 (6.4-8.2) g/dl Albumin 4.5 (3.4-5.0) g/dl Globulin 3.3 gm/dL Albumin/Globulin Ratio 1.4 (1-2) Lipase (73-393) U/L Urine Color (Yellow) Urine Appearance (Clear) Urine pH (5.0-8.0) Ur Specific [place] (1.005-1.030) Urine Protein (Negative) Urine Glucose (UA) (Negative) Urine Ketones (Negative) Urine Occult Blood (Negative) Urine Nitrite (Negative) Urine Bilirubin (Negative) Urine Urobilinogen (0.2-1.0) Ur Leukocyte Esterase (Negative) Urine RBC (0-5) /hpf Urine WBC (0-5) /hpf Ur Epithelial Cells (0-5) /hpf Urine Bacteria (FEW) /hpf Urine Mucus (FEW) /hpf Ketones 11.44 (0.0-0.3) mM 03/08/18 03/08/18 03/08/18 Range/Units 19:12 20:10 22:00 WBC (4.23-9.07) K/mm3 RBC (4.63-6.08) M/mm3 Hgb (13.7-17.5) gm/L Hct (40.1-51.0) % MCV (79.0-92.2) fl MCH (25.7-32.2) pg MCHC (32.2-35.5) g/dl RDW Std Deviation (35.1-43.9) fL Plt Count (163-337) K/mm3 MPV (9.4-12.3) fl Neut % (Auto) (34.0-67.9) % Lymph % (Auto) (21.8-53.1) % Robeson % (Auto) (5.3-12.2) % Eos % (Auto) (0.8-7.0) Baso % (Auto) (0.1-1.2) % Neut # (Auto) (1.78-5.38) K/mm3 Lymph # (Auto) (1.32-3.57) K/mm3 [place] # (Auto) (0.30-0.82) K/mm3 Eos # (Auto) (0.04-0.54) K/mm3 Baso # (Auto) (0.01-0.08) K/mm3 D-Dimer, Quantitative (0.19-0.50) mg/L Puncture Site ABG pH (7.35-7.45) ABG pCO2 (35.0-45.0) mmHg ABG pO2 (80.0-100.0) mmHg ABG HCO3 (22.0-26.0) meq/L ABG O2 Saturation (96.0-97.0) % ABG Base Excess (-2-2.0) Carson Test O2 Delivery Device FiO2 (21.00-100.00) % Sodium 132 L (136-145) mEq/L Potassium 4.7 (3.5-5.1) mEq/L Chloride 98 (98-107) mEq/L Carbon Dioxide 8 L* (21-32) mEq/L Anion Gap 30.7 H (5-15) BUN 33 H (7-18) mg/dL Creatinine 1.6 H (0.7-1.3) mg/dL Est Cr Clr Drug Dosing 55.76 mL/min Estimated GFR (MDRD) 55 (>60) mL/min BUN/Creatinine Ratio 20.6 H (14-18) Glucose 706 H* (74-106) mg/dL POC Glucose (70-105) mg/dL Hemoglobin A1c 9.90 H (4.50-6.20) % Lactic Acid (0.4-2.0) mmol/L Calcium 9.1 (8.5-10.1) mg/dL Magnesium (1.8-2.4) mg/dl Total Bilirubin (0.2-1.0) mg/dL AST (15-37) U/L ALT (16-63) U/L Alkaline Phosphatase (46-116) U/L Troponin I (0.00-0.056) ng/mL Total Protein (6.4-8.2) g/dl Albumin (3.4-5.0) g/dl Globulin gm/dL Albumin/Globulin Ratio (1-2) Lipase (73-393) U/L Urine Color Yellow (Yellow) Urine Appearance Slt cloudy H (Clear) Urine pH 5.5 (5.0-8.0) Ur Specific [place] 1.015 (1.005-1.030) Urine Protein 1+ H (Negative) Urine Glucose (UA) 2+ H (Negative) Urine Ketones 3+ H (Negative) Urine Occult Blood Negative (Negative) Urine Nitrite Negative (Negative) Urine Bilirubin Negative (Negative) Urine Urobilinogen 0.2 (0.2-1.0) Ur Leukocyte Esterase Negative (Negative) Urine RBC 0-5 (0-5) /hpf Urine WBC 0-5 (0-5) /hpf Ur Epithelial Cells 0-5 (0-5) /hpf Urine Bacteria Not seen (FEW) /hpf Urine Mucus Not seen (FEW) /hpf Ketones (0.0-0.3) mM 03/08/18 03/08/18 03/08/18 Range/Units 22:00 22:55 23:59 WBC (4.23-9.07) K/mm3 RBC (4.63-6.08) M/mm3 Hgb (13.7-17.5) gm/L Hct (40.1-51.0) % MCV (79.0-92.2) fl MCH (25.7-32.2) pg MCHC (32.2-35.5) g/dl RDW Std Deviation (35.1-43.9) fL Plt Count (163-337) K/mm3 MPV (9.4-12.3) fl Neut % (Auto) (34.0-67.9) % Lymph % (Auto) (21.8-53.1) % [place] % (Auto) (5.3-12.2) % Eos % (Auto) (0.8-7.0) Baso % (Auto) (0.1-1.2) % Neut # (Auto) (1.78-5.38) K/mm3 Lymph # (Auto) (1.32-3.57) K/mm3 [place] # (Auto) (0.30-0.82) K/mm3 Eos # (Auto) (0.04-0.54) K/mm3 Baso # (Auto) (0.01-0.08) K/mm3 D-Dimer, Quantitative (0.19-0.50) mg/L Puncture Site ABG pH (7.35-7.45) ABG pCO2 (35.0-45.0) mmHg ABG pO2 (80.0-100.0) mmHg ABG HCO3 (22.0-26.0) meq/L ABG O2 Saturation (96.0-97.0) % ABG Base Excess (-2-2.0) Carson Test O2 Delivery Device FiO2 (21.00-100.00) % Sodium (136-145) mEq/L Potassium (3.5-5.1) mEq/L Chloride (98-107) mEq/L Carbon Dioxide (21-32) mEq/L Anion Gap (5-15) BUN (7-18) mg/dL Creatinine (0.7-1.3) mg/dL Est Cr Clr Drug Dosing mL/min Estimated GFR (MDRD) (>60) mL/min BUN/Creatinine Ratio (14-18) Glucose 571 H* 466 H (74-106) mg/dL POC Glucose (70-105) mg/dL Hemoglobin A1c (4.50-6.20) % Lactic Acid (0.4-2.0) mmol/L Calcium (8.5-10.1) mg/dL Magnesium (1.8-2.4) mg/dl Total Bilirubin (0.2-1.0) mg/dL AST (15-37) U/L ALT (16-63) U/L Alkaline Phosphatase (46-116) U/L Troponin I (0.00-0.056) ng/mL Total Protein (6.4-8.2) g/dl Albumin (3.4-5.0) g/dl Globulin gm/dL Albumin/Globulin Ratio (1-2) Lipase 72 L (73-393) U/L Urine Color (Yellow) Urine Appearance (Clear) Urine pH (5.0-8.0) Ur Specific [place] (1.005-1.030) Urine Protein (Negative) Urine Glucose (UA) (Negative) Urine Ketones (Negative) Urine Occult Blood (Negative) Urine Nitrite (Negative) Urine Bilirubin (Negative) Urine Urobilinogen (0.2-1.0) Ur Leukocyte Esterase (Negative) Urine RBC (0-5) /hpf Urine WBC (0-5) /hpf Ur Epithelial Cells (0-5) /hpf Urine Bacteria (FEW) /hpf Urine Mucus (FEW) /hpf Ketones (0.0-0.3) mM 03/09/18 03/09/18 03/09/18 Range/Units 01:00 02:00 03:05 WBC (4.23-9.07) K/mm3 RBC (4.63-6.08) M/mm3 Hgb (13.7-17.5) gm/L Hct (40.1-51.0) % MCV (79.0-92.2) fl MCH (25.7-32.2) pg MCHC (32.2-35.5) g/dl RDW Std Deviation (35.1-43.9) fL Plt Count (163-337) K/mm3 MPV (9.4-12.3) fl Neut % (Auto) (34.0-67.9) % Lymph % (Auto) (21.8-53.1) % [place] % (Auto) (5.3-12.2) % Eos % (Auto) (0.8-7.0) Baso % (Auto) (0.1-1.2) % Neut # (Auto) (1.78-5.38) K/mm3 Lymph # (Auto) (1.32-3.57) K/mm3 [place] # (Auto) (0.30-0.82) K/mm3 Eos # (Auto) (0.04-0.54) K/mm3 Baso # (Auto) (0.01-0.08) K/mm3 D-Dimer, Quantitative (0.19-0.50) mg/L Puncture Site ABG pH (7.35-7.45) ABG pCO2 (35.0-45.0) mmHg ABG pO2 (80.0-100.0) mmHg ABG HCO3 (22.0-26.0) meq/L ABG O2 Saturation (96.0-97.0) % ABG Base Excess (-2-2.0) Carson Test O2 Delivery Device FiO2 (21.00-100.00) % Sodium 138 (136-145) mEq/L Potassium 4.1 (3.5-5.1) mEq/L Chloride 104 (98-107) mEq/L Carbon Dioxide 13 L (21-32) mEq/L Anion Gap 25.1 H (5-15) BUN 28 H (7-18) mg/dL Creatinine 1.4 H (0.7-1.3) mg/dL Est Cr Clr Drug Dosing 63.72 mL/min Estimated GFR (MDRD) > 60 (>60) mL/min BUN/Creatinine Ratio 20.0 H (14-18) Glucose 397 H 263 H (74-106) mg/dL POC Glucose 157 H (70-105) mg/dL Hemoglobin A1c (4.50-6.20) % Lactic Acid (0.4-2.0) mmol/L Calcium 8.6 (8.5-10.1) mg/dL Magnesium (1.8-2.4) mg/dl Total Bilirubin (0.2-1.0) mg/dL AST (15-37) U/L ALT (16-63) U/L Alkaline Phosphatase (46-116) U/L Troponin I (0.00-0.056) ng/mL Total Protein (6.4-8.2) g/dl Albumin (3.4-5.0) g/dl Globulin gm/dL Albumin/Globulin Ratio (1-2) Lipase (73-393) U/L Urine Color (Yellow) Urine Appearance (Clear) Urine pH (5.0-8.0) Ur Specific [place] (1.005-1.030) Urine Protein (Negative) Urine Glucose (UA) (Negative) Urine Ketones (Negative) Urine Occult Blood (Negative) Urine Nitrite (Negative) Urine Bilirubin (Negative) Urine Urobilinogen (0.2-1.0) Ur Leukocyte Esterase (Negative) Urine RBC (0-5) /hpf Urine WBC (0-5) /hpf Ur Epithelial Cells (0-5) /hpf Urine Bacteria (FEW) /hpf Urine Mucus (FEW) /hpf Ketones (0.0-0.3) mM 03/09/18 03/09/18 03/09/18 Range/Units 03:52 04:51 05:01 WBC (4.23-9.07) K/mm3 RBC (4.63-6.08) M/mm3 Hgb (13.7-17.5) gm/L Hct (40.1-51.0) % MCV (79.0-92.2) fl MCH (25.7-32.2) pg MCHC (32.2-35.5) g/dl RDW Std Deviation (35.1-43.9) fL Plt Count (163-337) K/mm3 MPV (9.4-12.3) fl Neut % (Auto) (34.0-67.9) % Lymph % (Auto) (21.8-53.1) % [place] % (Auto) (5.3-12.2) % Eos % (Auto) (0.8-7.0) Baso % (Auto) (0.1-1.2) % Neut # (Auto) (1.78-5.38) K/mm3 Lymph # (Auto) (1.32-3.57) K/mm3 [place] # (Auto) (0.30-0.82) K/mm3 Eos # (Auto) (0.04-0.54) K/mm3 Baso # (Auto) (0.01-0.08) K/mm3 D-Dimer, Quantitative (0.19-0.50) mg/L Puncture Site ABG pH (7.35-7.45) ABG pCO2 (35.0-45.0) mmHg ABG pO2 (80.0-100.0) mmHg ABG HCO3 (22.0-26.0) meq/L ABG O2 Saturation (96.0-97.0) % ABG Base Excess (-2-2.0) Carson Test O2 Delivery Device FiO2 (21.00-100.00) % Sodium 138 (136-145) mEq/L Potassium 3.6 (3.5-5.1) mEq/L Chloride 109 H (98-107) mEq/L Carbon Dioxide 17 L (21-32) mEq/L Anion Gap 15.6 H (5-15) BUN 24 H (7-18) mg/dL Creatinine 1.0 (0.7-1.3) mg/dL Est Cr Clr Drug Dosing 88.46 mL/min Estimated GFR (MDRD) > 60 (>60) mL/min BUN/Creatinine Ratio 24.0 H (14-18) Glucose 173 H (74-106) mg/dL POC Glucose 133 H 160 H (70-105) mg/dL Hemoglobin A1c (4.50-6.20) % Lactic Acid (0.4-2.0) mmol/L Calcium 7.7 L (8.5-10.1) mg/dL Magnesium (1.8-2.4) mg/dl Total Bilirubin (0.2-1.0) mg/dL AST (15-37) U/L ALT (16-63) U/L Alkaline Phosphatase (46-116) U/L Troponin I (0.00-0.056) ng/mL Total Protein (6.4-8.2) g/dl Albumin (3.4-5.0) g/dl Globulin gm/dL Albumin/Globulin Ratio (1-2) Lipase (73-393) U/L Urine Color (Yellow) Urine Appearance (Clear) Urine pH (5.0-8.0) Ur Specific [place] (1.005-1.030) Urine Protein (Negative) Urine Glucose (UA) (Negative) Urine Ketones (Negative) Urine Occult Blood (Negative) Urine Nitrite (Negative) Urine Bilirubin (Negative) Urine Urobilinogen (0.2-1.0) Ur Leukocyte Esterase (Negative) Urine RBC (0-5) /hpf Urine WBC (0-5) /hpf Ur Epithelial Cells (0-5) /hpf Urine Bacteria (FEW) /hpf Urine Mucus (FEW) /hpf Ketones (0.0-0.3) mM 03/09/18 03/09/18 03/09/18 Range/Units 06:08 06:57 07:55 WBC (4.23-9.07) K/mm3 RBC (4.63-6.08) M/mm3 Hgb (13.7-17.5) gm/L Hct (40.1-51.0) % MCV (79.0-92.2) fl MCH (25.7-32.2) pg MCHC (32.2-35.5) g/dl RDW Std Deviation (35.1-43.9) fL Plt Count (163-337) K/mm3 MPV (9.4-12.3) fl Neut % (Auto) (34.0-67.9) % Lymph % (Auto) (21.8-53.1) % [place] % (Auto) (5.3-12.2) % Eos % (Auto) (0.8-7.0) Baso % (Auto) (0.1-1.2) % Neut # (Auto) (1.78-5.38) K/mm3 Lymph # (Auto) (1.32-3.57) K/mm3 [place] # (Auto) (0.30-0.82) K/mm3 Eos # (Auto) (0.04-0.54) K/mm3 Baso # (Auto) (0.01-0.08) K/mm3 D-Dimer, Quantitative (0.19-0.50) mg/L Puncture Site ABG pH (7.35-7.45) ABG pCO2 (35.0-45.0) mmHg ABG pO2 (80.0-100.0) mmHg ABG HCO3 (22.0-26.0) meq/L ABG O2 Saturation (96.0-97.0) % ABG Base Excess (-2-2.0) Carson Test O2 Delivery Device FiO2 (21.00-100.00) % Sodium (136-145) mEq/L Potassium (3.5-5.1) mEq/L Chloride (98-107) mEq/L Carbon Dioxide (21-32) mEq/L Anion Gap (5-15) BUN (7-18) mg/dL Creatinine (0.7-1.3) mg/dL Est Cr Clr Drug Dosing mL/min Estimated GFR (MDRD) (>60) mL/min BUN/Creatinine Ratio (14-18) Glucose (74-106) mg/dL POC Glucose 222 H 187 H 228 H (70-105) mg/dL Hemoglobin A1c (4.50-6.20) % Lactic Acid (0.4-2.0) mmol/L Calcium (8.5-10.1) mg/dL Magnesium (1.8-2.4) mg/dl Total Bilirubin (0.2-1.0) mg/dL AST (15-37) U/L ALT (16-63) U/L Alkaline Phosphatase (46-116) U/L Troponin I (0.00-0.056) ng/mL Total Protein (6.4-8.2) g/dl Albumin (3.4-5.0) g/dl Globulin gm/dL Albumin/Globulin Ratio (1-2) Lipase (73-393) U/L Urine Color (Yellow) Urine Appearance (Clear) Urine pH (5.0-8.0) Ur Specific [place] (1.005-1.030) Urine Protein (Negative) Urine Glucose (UA) (Negative) Urine Ketones (Negative) Urine Occult Blood (Negative) Urine Nitrite (Negative) Urine Bilirubin (Negative) Urine Urobilinogen (0.2-1.0) Ur Leukocyte Esterase (Negative) Urine RBC (0-5) /hpf Urine WBC (0-5) /hpf Ur Epithelial Cells (0-5) /hpf Urine Bacteria (FEW) /hpf Urine Mucus (FEW) /hpf Ketones (0.0-0.3) mM 03/09/18 03/09/18 03/09/18 Range/Units 09:13 09:42 09:42 WBC 9.78 H (4.23-9.07) K/mm3 RBC 4.26 L (4.63-6.08) M/mm3 Hgb 12.3 L (13.7-17.5) gm/L Hct 33.5 L (40.1-51.0) % MCV 78.6 L (79.0-92.2) fl MCH 28.9 (25.7-32.2) pg MCHC 36.7 H (32.2-35.5) g/dl RDW Std Deviation 38.7 (35.1-43.9) fL Plt Count 257 (163-337) K/mm3 MPV 9.1 L (9.4-12.3) fl Neut % (Auto) 62.9 (34.0-67.9) % Lymph % (Auto) 29.7 (21.8-53.1) % [place] % (Auto) 6.5 (5.3-12.2) % Eos % (Auto) 0.4 L (0.8-7.0) Baso % (Auto) 0.3 (0.1-1.2) % Neut # (Auto) 6.15 H (1.78-5.38) K/mm3 Lymph # (Auto) 2.90 (1.32-3.57) K/mm3 [place] # (Auto) 0.64 (0.30-0.82) K/mm3 Eos # (Auto) 0.04 (0.04-0.54) K/mm3 Baso # (Auto) 0.03 (0.01-0.08) K/mm3 D-Dimer, Quantitative (0.19-0.50) mg/L Puncture Site ABG pH (7.35-7.45) ABG pCO2 (35.0-45.0) mmHg ABG pO2 (80.0-100.0) mmHg ABG HCO3 (22.0-26.0) meq/L ABG O2 Saturation (96.0-97.0) % ABG Base Excess (-2-2.0) Carson Test O2 Delivery Device FiO2 (21.00-100.00) % Sodium 133 L (136-145) mEq/L Potassium 3.6 (3.5-5.1) mEq/L Chloride 102 (98-107) mEq/L Carbon Dioxide 17 L (21-32) mEq/L Anion Gap 17.6 H (5-15) BUN 19 H (7-18) mg/dL Creatinine 1.0 (0.7-1.3) mg/dL Est Cr Clr Drug Dosing 88.46 mL/min Estimated GFR (MDRD) > 60 (>60) mL/min BUN/Creatinine Ratio 19.0 H (14-18) Glucose 305 H (74-106) mg/dL POC Glucose 282 H (70-105) mg/dL Hemoglobin A1c (4.50-6.20) % Lactic Acid (0.4-2.0) mmol/L Calcium 7.9 L (8.5-10.1) mg/dL Magnesium (1.8-2.4) mg/dl Total Bilirubin (0.2-1.0) mg/dL AST (15-37) U/L ALT (16-63) U/L Alkaline Phosphatase (46-116) U/L Troponin I (0.00-0.056) ng/mL Total Protein (6.4-8.2) g/dl Albumin (3.4-5.0) g/dl Globulin gm/dL Albumin/Globulin Ratio (1-2) Lipase (73-393) U/L Urine Color (Yellow) Urine Appearance (Clear) Urine pH (5.0-8.0) Ur Specific [place] (1.005-1.030) Urine Protein (Negative) Urine Glucose (UA) (Negative) Urine Ketones (Negative) Urine Occult Blood (Negative) Urine Nitrite (Negative) Urine Bilirubin (Negative) Urine Urobilinogen (0.2-1.0) Ur Leukocyte Esterase (Negative) Urine RBC (0-5) /hpf Urine WBC (0-5) /hpf Ur Epithelial Cells (0-5) /hpf Urine Bacteria (FEW) /hpf Urine Mucus (FEW) /hpf Ketones (0.0-0.3) mM 03/09/18 03/09/18 03/09/18 Range/Units 10:18 10:52 12:26 WBC (4.23-9.07) K/mm3 RBC (4.63-6.08) M/mm3 Hgb (13.7-17.5) gm/L Hct (40.1-51.0) % MCV (79.0-92.2) fl MCH (25.7-32.2) pg MCHC (32.2-35.5) g/dl RDW Std Deviation (35.1-43.9) fL Plt Count (163-337) K/mm3 MPV (9.4-12.3) fl Neut % (Auto) (34.0-67.9) % Lymph % (Auto) (21.8-53.1) % [place] % (Auto) (5.3-12.2) % Eos % (Auto) (0.8-7.0) Baso % (Auto) (0.1-1.2) % Neut # (Auto) (1.78-5.38) K/mm3 Lymph # (Auto) (1.32-3.57) K/mm3 [place] # (Auto) (0.30-0.82) K/mm3 Eos # (Auto) (0.04-0.54) K/mm3 Baso # (Auto) (0.01-0.08) K/mm3 D-Dimer, Quantitative (0.19-0.50) mg/L Puncture Site ABG pH (7.35-7.45) ABG pCO2 (35.0-45.0) mmHg ABG pO2 (80.0-100.0) mmHg ABG HCO3 (22.0-26.0) meq/L ABG O2 Saturation (96.0-97.0) % ABG Base Excess (-2-2.0) Carson Test O2 Delivery Device FiO2 (21.00-100.00) % Sodium (136-145) mEq/L Potassium (3.5-5.1) mEq/L Chloride (98-107) mEq/L Carbon Dioxide (21-32) mEq/L Anion Gap (5-15) BUN (7-18) mg/dL Creatinine (0.7-1.3) mg/dL Est Cr Clr Drug Dosing mL/min Estimated GFR (MDRD) (>60) mL/min BUN/Creatinine Ratio (14-18) Glucose (74-106) mg/dL POC Glucose 290 H 286 H 243 H (70-105) mg/dL Hemoglobin A1c (4.50-6.20) % Lactic Acid (0.4-2.0) mmol/L Calcium (8.5-10.1) mg/dL Magnesium (1.8-2.4) mg/dl Total Bilirubin (0.2-1.0) mg/dL AST (15-37) U/L ALT (16-63) U/L Alkaline Phosphatase (46-116) U/L Troponin I (0.00-0.056) ng/mL Total Protein (6.4-8.2) g/dl Albumin (3.4-5.0) g/dl Globulin gm/dL Albumin/Globulin Ratio (1-2) Lipase (73-393) U/L Urine Color (Yellow) Urine Appearance (Clear) Urine pH (5.0-8.0) Ur Specific [place] (1.005-1.030) Urine Protein (Negative) Urine Glucose (UA) (Negative) Urine Ketones (Negative) Urine Occult Blood (Negative) Urine Nitrite (Negative) Urine Bilirubin (Negative) Urine Urobilinogen (0.2-1.0) Ur Leukocyte Esterase (Negative) Urine RBC (0-5) /hpf Urine WBC (0-5) /hpf Ur Epithelial Cells (0-5) /hpf Urine Bacteria (FEW) /hpf Urine Mucus (FEW) /hpf Ketones (0.0-0.3) mM 03/09/18 03/09/18 03/09/18 Range/Units 13:15 13:37 14:11 WBC (4.23-9.07) K/mm3 RBC (4.63-6.08) M/mm3 Hgb (13.7-17.5) gm/L Hct (40.1-51.0) % MCV (79.0-92.2) fl MCH (25.7-32.2) pg MCHC (32.2-35.5) g/dl RDW Std Deviation (35.1-43.9) fL Plt Count (163-337) K/mm3 MPV (9.4-12.3) fl Neut % (Auto) (34.0-67.9) % Lymph % (Auto) (21.8-53.1) % [place] % (Auto) (5.3-12.2) % Eos % (Auto) (0.8-7.0) Baso % (Auto) (0.1-1.2) % Neut # (Auto) (1.78-5.38) K/mm3 Lymph # (Auto) (1.32-3.57) K/mm3 [place] # (Auto) (0.30-0.82) K/mm3 Eos # (Auto) (0.04-0.54) K/mm3 Baso # (Auto) (0.01-0.08) K/mm3 D-Dimer, Quantitative (0.19-0.50) mg/L Puncture Site ABG pH (7.35-7.45) ABG pCO2 (35.0-45.0) mmHg ABG pO2 (80.0-100.0) mmHg ABG HCO3 (22.0-26.0) meq/L ABG O2 Saturation (96.0-97.0) % ABG Base Excess (-2-2.0) [place] Test O2 Delivery Device FiO2 (21.00-100.00) % Sodium 136 (136-145) mEq/L Potassium 3.2 L (3.5-5.1) mEq/L Chloride 107 (98-107) mEq/L Carbon Dioxide 20 L (21-32) mEq/L Anion Gap 12.2 (5-15) BUN 17 (7-18) mg/dL Creatinine 1.0 (0.7-1.3) mg/dL Est Cr Clr Drug Dosing 88.46 mL/min Estimated GFR (MDRD) > 60 (>60) mL/min BUN/Creatinine Ratio 17.0 (14-18) Glucose 242 H (74-106) mg/dL POC Glucose 234 H 217 H (70-105) mg/dL Hemoglobin A1c (4.50-6.20) % Lactic Acid (0.4-2.0) mmol/L Calcium 7.8 L (8.5-10.1) mg/dL Magnesium (1.8-2.4) mg/dl Total Bilirubin (0.2-1.0) mg/dL AST (15-37) U/L ALT (16-63) U/L Alkaline Phosphatase (46-116) U/L Troponin I (0.00-0.056) ng/mL Total Protein (6.4-8.2) g/dl Albumin (3.4-5.0) g/dl Globulin gm/dL Albumin/Globulin Ratio (1-2) Lipase (73-393) U/L Urine Color (Yellow) Urine Appearance (Clear) Urine pH (5.0-8.0) Ur Specific [place] (1.005-1.030) Urine Protein (Negative) Urine Glucose (UA) (Negative) Urine Ketones (Negative) Urine Occult Blood (Negative) Urine Nitrite (Negative) Urine Bilirubin (Negative) Urine Urobilinogen (0.2-1.0) Ur Leukocyte Esterase (Negative) Urine RBC (0-5) /hpf Urine WBC (0-5) /hpf Ur Epithelial Cells (0-5) /hpf Urine Bacteria (FEW) /hpf Urine Mucus (FEW) /hpf Ketones (0.0-0.3) mM / Range/Units 15:00 WBC (4.23-9.07) K/mm3 RBC (4.63-6.08) M/mm3 Hgb (13.7-17.5) gm/L Hct (40.1-51.0) % MCV (79.0-92.2) fl MCH (25.7-32.2) pg MCHC (32.2-35.5) g/dl RDW Std Deviation (35.1-43.9) fL Plt Count (163-337) K/mm3 MPV (9.4-12.3) fl Neut % (Auto) (34.0-67.9) % Lymph % (Auto) (21.8-53.1) % [place] % (Auto) (5.3-12.2) % Eos % (Auto) (0.8-7.0) Baso % (Auto) (0.1-1.2) % Neut # (Auto) (1.78-5.38) K/mm3 Lymph # (Auto) (1.32-3.57) K/mm3 [place] # (Auto) (0.30-0.82) K/mm3 Eos # (Auto) (0.04-0.54) K/mm3 Baso # (Auto) (0.01-0.08) K/mm3 D-Dimer, Quantitative (0.19-0.50) mg/L Puncture Site ABG pH (7.35-7.45) ABG pCO2 (35.0-45.0) mmHg ABG pO2 (80.0-100.0) mmHg ABG HCO3 (22.0-26.0) meq/L ABG O2 Saturation (96.0-97.0) % ABG Base Excess (-2-2.0) [place] Test O2 Delivery Device FiO2 (21.00-100.00) % Sodium (136-145) mEq/L Potassium (3.5-5.1) mEq/L Chloride (98-107) mEq/L Carbon Dioxide (21-32) mEq/L Anion Gap (5-15) BUN (7-18) mg/dL Creatinine (0.7-1.3) mg/dL Est Cr Clr Drug Dosing mL/min Estimated GFR (MDRD) (>60) mL/min BUN/Creatinine Ratio (14-18) Glucose (74-106) mg/dL POC Glucose 205 H (70-105) mg/dL Hemoglobin A1c (4.50-6.20) % Lactic Acid (0.4-2.0) mmol/L Calcium (8.5-10.1) mg/dL Magnesium (1.8-2.4) mg/dl Total Bilirubin (0.2-1.0) mg/dL AST (15-37) U/L ALT (16-63) U/L Alkaline Phosphatase (46-116) U/L Troponin I (0.00-0.056) ng/mL Total Protein (6.4-8.2) g/dl Albumin (3.4-5.0) g/dl Globulin gm/dL Albumin/Globulin Ratio (1-2) Lipase (73-393) U/L Urine Color (Yellow) Urine Appearance (Clear) Urine pH (5.0-8.0) Ur Specific [place] (1.005-1.030) Urine Protein (Negative) Urine Glucose (UA) (Negative) Urine Ketones (Negative) Urine Occult Blood (Negative) Urine Nitrite (Negative) Urine Bilirubin (Negative) Urine Urobilinogen (0.2-1.0) Ur Leukocyte Esterase (Negative) Urine RBC (0-5) /hpf Urine WBC (0-5) /hpf Ur Epithelial Cells (0-5) /hpf Urine Bacteria (FEW) /hpf Urine Mucus (FEW) /hpf Ketones (0.0-0.3) mM Med Orders - Current: Current Medications Albuterol/Ipratropium (Duoneb 3.0-0.5 Mg/3 Ml) 3 ml NEB Q4H PRN PRN Reason: Shortness Of Breath/wheezing Bisacodyl (Dulcolax) 5 mg PO DAILY PRN PRN Reason: Constipation Docusate Sodium (Colace) 100 mg PO BID PRN PRN Reason: Constipation Hydralazine HCl (Apresoline) 20 mg IVPUSH Q4H PRN PRN Reason: Hypertension Hydromorphone HCl (Dilaudid) 0.25 mg IVPUSH Q2H PRN PRN Reason: Pain (severe 7-10) Promethazine HCl 12.5 mg/ (Sodium Chloride) 50.5 mls @ 100 mls/hr IV Q6H PRN PRN Reason: Nausea/Vomiting Insulin Human Regular 100 unit (/ Sodium Chloride) 100 mls @ 5.39 mls/hr IV TITRATE [facility]; Protocol Last Titration: 03/09/18 15:01 Dose: 0.03 units/kg/hr, 2 mls/hr Potassium Chloride/Dextrose/Sod Cl (D5 Ns With 20 Meq Kcl) 1,000 mls @ 250 mls/ hr IV ASDIRECTED [facility] Last Admin: 03/09/18 11:19 Dose: 250 mls/hr Sodium Chloride (Normal Saline) 1,000 mls @ 100 mls/hr IV ASDIRECTED [facility] Ibuprofen (Motrin) 600 mg PO Q6H PRN PRN Reason: Pain (moderate 4-6) Last Admin: 03/09/18 02:47 Dose: 600 mg Lorazepam (Ativan) 1 mg IV Q6H PRN PRN Reason: Nausea/Vomiting Magnesium Hydroxide (Milk Of Magnesia) 30 ml PO Q12H PRN PRN Reason: Constipation Metoprolol Tartrate (Lopressor) 5 mg IVPUSH Q4H PRN PRN Reason: Tachycardia Last Admin: 03/09/18 03:40 Dose: 5 mg Miscellaneous Information (Remove Patch) 1 ea TRDERM DAILY [facility] Last Admin: 03/09/18 09:41 Dose: 1 ea Nicotine (Habitrol) 21 mg TRDERM DAILY [facility] Last Admin: 03/09/18 09:09 Dose: 21 mg Ondansetron HCl (Zofran) 4 mg IV Q6H PRN PRN Reason: Nausea/Vomiting Last Admin: 03/09/18 07:56 Dose: 4 mg Ondansetron HCl (Zofran Odt) 4 mg PO Q6H PRN PRN Reason: nausea, able to take PO Oxycodone HCl (Oxycodone) 5 mg PO Q4H PRN PRN Reason: Pain (moderate 4-6) Polyethylene Glycol (Miralax) 17 gm PO DAILY PRN PRN Reason: Constipation Promethazine HCl (Phenergan) 25 mg PO Q6H PRN PRN Reason: Nausea/Vomiting Senna/Docusate Sodium (Senna Plus) 1 tab PO BID PRN PRN Reason: Constipation Sodium Chloride (Saline Flush) 10 ml FLUSH ASDIRECTED PRN PRN Reason: Keep Vein Open Last Admin: 03/08/18 19:28 Dose: 10 ml Temazepam (Restoril) 15 mg PO BEDTIME PRN PRN Reason: Sleep Discontinued Medications Sodium Chloride (Normal Saline) 1,000 mls @ 1,000 mls/hr IV ONETIME ONE Stop: 03/08/18 20:08 Last Admin: 03/08/18 19:27 Dose: 1,000 mls/hr Sodium Chloride (Normal Saline) 1,000 mls @ 1,000 mls/hr IV ONETIME ONE Stop: 03/08/18 20:09 Last Admin: 03/08/18 19:28 Dose: 1,000 mls/hr Insulin Human Regular 100 unit (/ Sodium Chloride) 100 mls @ 5.39 mls/hr IV TITRATE [facility]; Protocol Last Admin: 03/08/18 20:29 Dose: 0.1 units/kg/hr, 5.39 mls/hr Sodium Chloride (Normal Saline) 1,000 mls @ 1,000 mls/hr IV ONETIME ONE Stop: 03/08/18 21:08 Last Admin: 03/08/18 20:36 Dose: 1,000 mls/hr Magnesium Sulfate 2 gm/ Premix 50 mls @ 25 mls/hr IV ONETIME ONE Stop: 03/08/18 22:15 Last Admin: 03/08/18 20:27 Dose: 25 mls/hr Sodium Chloride (Normal Saline) 1,000 mls @ 250 mls/hr IV ASDIRECTED [facility] Stop: 03/11/18 02:14 Sodium Chloride (Normal Saline) 1,000 mls @ 999 mls/hr IV ASDIRECTED [facility] Stop: 03/10/18 23:31 Last Infusion: 03/09/18 03:18 Dose: 250 mls/hr Dextrose/Water (Dextrose 5% In Water) 1,000 mls @ 250 mls/hr IV ASDIRECTED [facility] Last Admin: 03/09/18 07:08 Dose: 250 mls/hr Magnesium Sulfate 2 gm/ Premix 50 mls @ 25 mls/hr IV ONETIME ONE Stop: 03/09/18 14:59 Last Admin: 03/09/18 13:19 Dose: 25 mls/hr Sodium Chloride (Normal Saline) 1,000 mls @ 999 mls/hr IV ASDIRECTED ONE Stop: 03/09/18 12:58 Last Admin: 03/09/18 14:54 Dose: 999 mls/hr Potassium Chloride (Klor-Con M20) 40 meq PO ONETIME ONE Stop: 03/09/18 15:06 Last Admin: 03/09/18 15:40 Dose: 40 meq - Exam Quality Assessment: Supplemental Oxygen, DVT Prophylaxis General: Alert, Oriented, Cooperative, No Acute Distress HEENT: Pupils Equal, Pupils Reactive, EOMI, Other (poor dentition) Neck: Supple, Trachea Midline, No JVD Lungs: Clear to Auscultation, Normal Respiratory Effort Cardiovascular: Regular Rate, Regular Rhythm GI/Abdominal Exam: Normal Bowel Sounds, Soft, Non-Tender, No Organomegaly, No Distention (Male) Exam: Deferred Back Exam: Normal Inspection Extremities: Normal Inspection, Normal Range of Motion, Non-Tender, No Pedal Edema, Normal Capillary Refill Skin: Warm Neurological: Normal Gait, Normal Speech Psy/Mental Status: Alert, Normal Affect, Normal Mood - Problem List Review Problem List Initiated/Reviewed/Updated: Yes - My Orders Last 24 Hours: My Active Orders 03/09/18 09:42 CBC WITH AUTO DIFF [HEME] Routine 03/09/18 10:50 RESPIRATORY PANEL BY PCR [MREF] Routine 03/09/18 11:15 Dextrose 5%-0.9% NaCl with KCl [D5 NS with 20 mEq KCl] 1,000 ml IV ASDIRECTED 03/09/18 16:00 Sodium Chloride 0.9% [Normal Saline] 1,000 ml IV ASDIRECTED 03/09/18 Dinner Clear Liquid Diet [DIET] - Plan Plan:: I/P: Acute: 1. Diabetic Ketoacidosis - Ketones 11.44 ( > 5.0 mM is DKA); decreased 3.4 - DKA procotol - Aggressive IV hydration - NPO until AG resolves - Diabetic Education 2. DM1 - Chronic Medical Non-compliance - Continue Insulin regimen - ISS coverage - Will repeat A1C level - Diabetic consult 3. Severe Dehydration - Serum Osmolality is 315, Anion Gap 35.6 - Aggressive IV Hydration - Monitor UOP 4. Nicotine Dependence - Smokes 1ppd - Nicotine Patch 5. Medical Non-compliance - A1C 9.9 - He has been admitted here multiple times - He states he has been seeing a diabetic specialist and they are "trying to figure out" the amount of insulin he needs - He states his Insulin pump is working Chronic: RLS HTN Hx/o [place] PUD Chronic Pain Syndrome Depression Hypothyroidism Hx/o Spinal Stenosis Obesity- Advised LSM Plan: Transferred to ICU Insulin drip Serial BMP Routine AM labs Advance diet as appropriate; continue DKA protocol Code status:Full Code; PCP: Dr. Jae Galicia
[2018-03-09] MEDS ORDERED: Sodium Chloride 0.9% 1,000 ML IV SCH (16:00)
--- NOTE | 2018-03-10 08:29 | CR ---
Chest: Frontal view of the chest was obtained. Comparison: Prior chest x-ray of 01/03/18. Heart size and mediastinum are normal. Lungs are clear. Bony structures are grossly intact. Impression: 1. Nothing acute is seen on portable chest x-ray. Diagnostic code #1
[2018-03-10] MEDS: Nicotine 21 MG/24 Hr Patch TRDERM SCH (10:34)
--- NOTE | 2018-03-10 11:50 | PCM.DCSUM1 ---
Discharge Summary - Hospital Course Diagnosis: Stroke: No - Discharge Data Discharge Date: 03/10/18 Discharge Disposition: Home, Self-Care 01 Condition: Good - Patient Summary/Data Consults: Consultations 03/08/18 21:39 Consult to Case Management [CONS] Routine Consult to Diabetic Nurse Specialist [CONS] Routine Consult to Dust Mixer [CONS] Routine Planned Operative Procedure(s) after DC: DC tobacco products needs to be addressed; currently he is declining. - Patient Instructions Diet: Diabetic Diet Activity: As Tolerated Driving: May Drive Today Showering/Bathing: May Shower Notify Provider of: Fever, Increased Pain, Nausea and/or Vomiting - Discharge Plan Home Medications: Home Meds Insulin Pump/Infus. Set/Meter [Accu-Chek Combo System] 1.2 unit SQ ASDIRECTED [History] Forms: ED Department Discharge Referrals: PCP,None [Ordering Only Provider] - Jae Galicia MD [Primary Care Provider] - 03/22/18 (Follow up ost hospital admission for DKA) - Discharge Summary/Plan Comment DC Time >30 min.: No - General Info Date of Service: 03/08/18 Functional Status: Reports: Tolerating Diet, Ambulating, Urinating - Review of Systems General: Reports: No Symptoms HEENT: Reports: No Symptoms Pulmonary: Reports: No Symptoms Cardiovascular: Reports: No Symptoms Gastrointestinal: Reports: No Symptoms Genitourinary: Reports: No Symptoms Musculoskeletal: Reports: No Symptoms Skin: Reports: No Symptoms Neurological: Reports: No Symptoms Psychiatric: Reports: No Symptoms - Patient Data Vitals - Most Recent: Last Vital Signs Temp 37.0 C 03/10/18 08:00 Pulse 94 03/09/18 20:00 Resp 20 03/10/18 08:00 BP 133/94 H 03/10/18 08:00 Pulse Ox 100 03/10/18 08:00 Weight - Most Recent: 57.062 kg I&O - Last 24 hours: Intake & Output 03/09/18 03/10/18 03/10/18 22:59 06:59 14:59 Intake Total 5011 1040 420 Output Total 625 1500 Balance 4386 -460 420 Lab Results - Last 24 hrs: Laboratory Results - last 24 hr 03/09/18 03/09/18 03/09/18 Range/Units 09:42 12:26 13:15 WBC (4.23-9.07) K/mm3 RBC (4.63-6.08) M/mm3 Hgb (13.7-17.5) gm/L Hct (40.1-51.0) % MCV (79.0-92.2) fl MCH (25.7-32.2) pg MCHC (32.2-35.5) g/dl RDW Std Deviation (35.1-43.9) fL Plt Count (163-337) K/mm3 MPV (9.4-12.3) fl Neut % (Auto) (34.0-67.9) % Lymph % (Auto) (21.8-53.1) % Clare % (Auto) (5.3-12.2) % Eos % (Auto) (0.8-7.0) Baso % (Auto) (0.1-1.2) % Neut # (Auto) (1.78-5.38) K/mm3 Lymph # (Auto) (1.32-3.57) K/mm3 Clare # (Auto) (0.30-0.82) K/mm3 Eos # (Auto) (0.04-0.54) K/mm3 Baso # (Auto) (0.01-0.08) K/mm3 Manual Slide Review Normal smear Sodium (136-145) mEq/L Potassium (3.5-5.1) mEq/L Chloride (98-107) mEq/L Carbon Dioxide (21-32) mEq/L Anion Gap (5-15) BUN (7-18) mg/dL Creatinine (0.7-1.3) mg/dL Est Cr Clr Drug Dosing mL/min Estimated GFR (MDRD) (>60) mL/min BUN/Creatinine Ratio (14-18) Glucose (74-106) mg/dL POC Glucose 243 H 234 H (70-105) mg/dL Calcium (8.5-10.1) mg/dL 18 18 03/09/18 Range/Units 13:37 14:11 15:00 WBC (4.23-9.07) K/mm3 RBC (4.63-6.08) M/mm3 Hgb (13.7-17.5) gm/L Hct (40.1-51.0) % MCV (79.0-92.2) fl MCH (25.7-32.2) pg MCHC (32.2-35.5) g/dl RDW Std Deviation (35.1-43.9) fL Plt Count (163-337) K/mm3 MPV (9.4-12.3) fl Neut % (Auto) (34.0-67.9) % Lymph % (Auto) (21.8-53.1) % Clare % (Auto) (5.3-12.2) % Eos % (Auto) (0.8-7.0) Baso % (Auto) (0.1-1.2) % Neut # (Auto) (1.78-5.38) K/mm3 Lymph # (Auto) (1.32-3.57) K/mm3 Clare # (Auto) (0.30-0.82) K/mm3 Eos # (Auto) (0.04-0.54) K/mm3 Baso # (Auto) (0.01-0.08) K/mm3 Manual Slide Review Sodium 136 (136-145) mEq/L Potassium 3.2 L (3.5-5.1) mEq/L Chloride 107 (98-107) mEq/L Carbon Dioxide 20 L (21-32) mEq/L Anion Gap 12.2 (5-15) BUN 17 (7-18) mg/dL Creatinine 1.0 (0.7-1.3) mg/dL Est Cr Clr Drug Dosing 88.46 mL/min Estimated GFR (MDRD) > 60 (>60) mL/min BUN/Creatinine Ratio 17.0 (14-18) Glucose 242 H (74-106) mg/dL POC Glucose 217 H 205 H (70-105) mg/dL Calcium 7.8 L (8.5-10.1) mg/dL 03/09/18 03/09/18 03/09/18 Range/Units 16:04 17:10 17:59 WBC (4.23-9.07) K/mm3 RBC (4.63-6.08) M/mm3 Hgb (13.7-17.5) gm/L Hct (40.1-51.0) % MCV (79.0-92.2) fl MCH (25.7-32.2) pg MCHC (32.2-35.5) g/dl RDW Std Deviation (35.1-43.9) fL Plt Count (163-337) K/mm3 MPV (9.4-12.3) fl Neut % (Auto) (34.0-67.9) % Lymph % (Auto) (21.8-53.1) % Clare % (Auto) (5.3-12.2) % Eos % (Auto) (0.8-7.0) Baso % (Auto) (0.1-1.2) % Neut # (Auto) (1.78-5.38) K/mm3 Lymph # (Auto) (1.32-3.57) K/mm3 Clare # (Auto) (0.30-0.82) K/mm3 Eos # (Auto) (0.04-0.54) K/mm3 Baso # (Auto) (0.01-0.08) K/mm3 Manual Slide Review Sodium 138 (136-145) mEq/L Potassium 3.4 L (3.5-5.1) mEq/L Chloride 108 H (98-107) mEq/L Carbon Dioxide 18 L (21-32) mEq/L Anion Gap 15.4 H (5-15) BUN 12 (7-18) mg/dL Creatinine 0.9 (0.7-1.3) mg/dL Est Cr Clr Drug Dosing 98.29 mL/min Estimated GFR (MDRD) > 60 (>60) mL/min BUN/Creatinine Ratio 13.3 L (14-18) Glucose 206 H (74-106) mg/dL POC Glucose 188 H 174 H (70-105) mg/dL Calcium 8.0 L (8.5-10.1) mg/dL 03/09/18 03/10/18 03/10/18 Range/Units 21:45 03:13 04:13 WBC (4.23-9.07) K/mm3 RBC (4.63-6.08) M/mm3 Hgb (13.7-17.5) gm/L Hct (40.1-51.0) % MCV (79.0-92.2) fl MCH (25.7-32.2) pg MCHC (32.2-35.5) g/dl RDW Std Deviation (35.1-43.9) fL Plt Count (163-337) K/mm3 MPV (9.4-12.3) fl Neut % (Auto) (34.0-67.9) % Lymph % (Auto) (21.8-53.1) % Clare % (Auto) (5.3-12.2) % Eos % (Auto) (0.8-7.0) Baso % (Auto) (0.1-1.2) % Neut # (Auto) (1.78-5.38) K/mm3 Lymph # (Auto) (1.32-3.57) K/mm3 Clare # (Auto) (0.30-0.82) K/mm3 Eos # (Auto) (0.04-0.54) K/mm3 Baso # (Auto) (0.01-0.08) K/mm3 Manual Slide Review Sodium (136-145) mEq/L Potassium (3.5-5.1) mEq/L Chloride (98-107) mEq/L Carbon Dioxide (21-32) mEq/L Anion Gap (5-15) BUN (7-18) mg/dL Creatinine (0.7-1.3) mg/dL Est Cr Clr Drug Dosing mL/min Estimated GFR (MDRD) (>60) mL/min BUN/Creatinine Ratio (14-18) Glucose (74-106) mg/dL POC Glucose 97 58 L 203 H (70-105) mg/dL Calcium (8.5-10.1) mg/dL 03/10/18 03/10/18 03/10/18 Range/Units 05:29 05:29 11:31 WBC 6.10 (4.23-9.07) K/mm3 RBC 4.08 L (4.63-6.08) M/mm3 Hgb 11.6 L (13.7-17.5) gm/L Hct 32.4 L (40.1-51.0) % MCV 79.4 (79.0-92.2) fl MCH 28.4 (25.7-32.2) pg MCHC 35.8 H (32.2-35.5) g/dl RDW Std Deviation 37.3 (35.1-43.9) fL Plt Count 223 (163-337) K/mm3 MPV 9.2 L (9.4-12.3) fl Neut % (Auto) 65.3 (34.0-67.9) % Lymph % (Auto) 27.0 (21.8-53.1) % Clare % (Auto) 7.0 (5.3-12.2) % Eos % (Auto) 0.3 L (0.8-7.0) Baso % (Auto) 0.2 (0.1-1.2) % Neut # (Auto) 3.98 (1.78-5.38) K/mm3 Lymph # (Auto) 1.65 (1.32-3.57) K/mm3 Clare # (Auto) 0.43 (0.30-0.82) K/mm3 Eos # (Auto) 0.02 L (0.04-0.54) K/mm3 Baso # (Auto) 0.01 (0.01-0.08) K/mm3 Manual Slide Review Abnormal smear Sodium 137 (136-145) mEq/L Potassium 3.0 L (3.5-5.1) mEq/L Chloride 107 (98-107) mEq/L Carbon Dioxide 24 (21-32) mEq/L Anion Gap 9.0 (5-15) BUN 5 L (7-18) mg/dL Creatinine 0.9 (0.7-1.3) mg/dL Est Cr Clr Drug Dosing 104.79 mL/min Estimated GFR (MDRD) > 60 (>60) mL/min BUN/Creatinine Ratio 5.6 L (14-18) Glucose 220 H (74-106) mg/dL POC Glucose 109 H (70-105) mg/dL Calcium 7.9 L (8.5-10.1) mg/dL MEGAN Results - Last 24 hrs: Microbiology 03/09/18 02:51 Stool Culture - Preliminary Stool / Feces - Final NEGATIVE FOR SHIGA TOXIN 1 - Final NEGATIVE FOR SHIGA TOXIN 2 03/09/18 10:50 Respiratory Virus Panel (PCR) - Final Nasopharyngeal Swab Med Orders - Current: Current Medications Albuterol/Ipratropium (Duoneb 3.0-0.5 Mg/3 Ml) 3 ml NEB Q4H PRN PRN Reason: Shortness Of Breath/wheezing Bisacodyl (Dulcolax) 5 mg PO DAILY PRN PRN Reason: Constipation Docusate Sodium (Colace) 100 mg PO BID PRN PRN Reason: Constipation Hydralazine HCl (Apresoline) 20 mg IVPUSH Q4H PRN PRN Reason: Hypertension Hydromorphone HCl (Dilaudid) 0.25 mg IVPUSH Q2H PRN PRN Reason: Pain (severe 7-10) Promethazine HCl 12.5 mg/ (Sodium Chloride) 50.5 mls @ 100 mls/hr IV Q6H PRN PRN Reason: Nausea/Vomiting Insulin Human Regular 100 unit (/ Sodium Chloride) 100 mls @ 5.39 mls/hr IV TITRATE [facility]; Protocol Last Titration: 03/09/18 17:14 Dose: 0.02 units/kg/hr, 1.5 mls/hr Potassium Chloride/Dextrose/Sod Cl (D5 Ns With 20 Meq Kcl) 1,000 mls @ 250 mls/ hr IV ASDIRECTED [facility] Last Admin: 03/09/18 15:44 Dose: 250 mls/hr Sodium Chloride (Normal Saline) 1,000 mls @ 100 mls/hr IV ASDIRECTED [facility] Ibuprofen (Motrin) 600 mg PO Q6H PRN PRN Reason: Pain (moderate 4-6) Last Admin: 03/09/18 02:47 Dose: 600 mg Lorazepam (Ativan) 1 mg IV Q6H PRN PRN Reason: Nausea/Vomiting Magnesium Hydroxide (Milk Of Magnesia) 30 ml PO Q12H PRN PRN Reason: Constipation Metoprolol Tartrate (Lopressor) 5 mg IVPUSH Q4H PRN PRN Reason: Tachycardia Last Admin: 03/09/18 03:40 Dose: 5 mg Miscellaneous Information (Remove Patch) 1 ea TRDERM DAILY [facility] Last Admin: 03/10/18 10:35 Dose: Not Given Nicotine (Habitrol) 21 mg TRDERM DAILY [facility] Last Admin: 03/10/18 10:34 Dose: Not Given Ondansetron HCl (Zofran) 4 mg IV Q6H PRN PRN Reason: Nausea/Vomiting Last Admin: 03/09/18 07:56 Dose: 4 mg Ondansetron HCl (Zofran Odt) 4 mg PO Q6H PRN PRN Reason: nausea, able to take PO Oxycodone HCl (Oxycodone) 5 mg PO Q4H PRN PRN Reason: Pain (moderate 4-6) Polyethylene Glycol (Miralax) 17 gm PO DAILY PRN PRN Reason: Constipation Promethazine HCl (Phenergan) 25 mg PO Q6H PRN PRN Reason: Nausea/Vomiting Senna/Docusate Sodium (Senna Plus) 1 tab PO BID PRN PRN Reason: Constipation Sodium Chloride (Saline Flush) 10 ml FLUSH ASDIRECTED PRN PRN Reason: Keep Vein Open Last Admin: 03/08/18 19:28 Dose: 10 ml Temazepam (Restoril) 15 mg PO BEDTIME PRN PRN Reason: Sleep Discontinued Medications Sodium Chloride (Normal Saline) 1,000 mls @ 1,000 mls/hr IV ONETIME ONE Stop: 03/08/18 20:08 Last Admin: 03/08/18 19:27 Dose: 1,000 mls/hr Sodium Chloride (Normal Saline) 1,000 mls @ 1,000 mls/hr IV ONETIME ONE Stop: 03/08/18 20:09 Last Admin: 03/08/18 19:28 Dose: 1,000 mls/hr Insulin Human Regular 100 unit (/ Sodium Chloride) 100 mls @ 5.39 mls/hr IV TITRATE [facility]; Protocol Last Admin: 03/08/18 20:29 Dose: 0.1 units/kg/hr, 5.39 mls/hr Sodium Chloride (Normal Saline) 1,000 mls @ 1,000 mls/hr IV ONETIME ONE Stop: 03/08/18 21:08 Last Admin: 03/08/18 20:36 Dose: 1,000 mls/hr Magnesium Sulfate 2 gm/ Premix 50 mls @ 25 mls/hr IV ONETIME ONE Stop: 03/08/18 22:15 Last Admin: 03/08/18 20:27 Dose: 25 mls/hr Sodium Chloride (Normal Saline) 1,000 mls @ 250 mls/hr IV ASDIRECTED [facility] Stop: 03/11/18 02:14 Sodium Chloride (Normal Saline) 1,000 mls @ 999 mls/hr IV ASDIRECTED [facility] Stop: 03/10/18 23:31 Last Infusion: 03/09/18 03:18 Dose: 250 mls/hr Dextrose/Water (Dextrose 5% In Water) 1,000 mls @ 250 mls/hr IV ASDIRECTED [facility] Last Admin: 03/09/18 07:08 Dose: 250 mls/hr Magnesium Sulfate 2 gm/ Premix 50 mls @ 25 mls/hr IV ONETIME ONE Stop: 03/09/18 14:59 Last Admin: 03/09/18 13:19 Dose: 25 mls/hr Sodium Chloride (Normal Saline) 1,000 mls @ 999 mls/hr IV ASDIRECTED ONE Stop: 03/09/18 12:58 Last Admin: 03/09/18 14:54 Dose: 999 mls/hr Potassium Chloride (Klor-Con M20) 40 meq PO ONETIME ONE Stop: 03/09/18 15:06 Last Admin: 03/09/18 15:40 Dose: 40 meq - Exam Quality Assessment: Reports: DVT Prophylaxis General: Reports: Alert, Oriented, Cooperative, No Acute Distress HEENT: Reports: Pupils Equal, Pupils Reactive, EOMI Neck: Reports: Trachea Midline Lungs: Reports: Normal Respiratory Effort Cardiovascular: Reports: Regular Rate, Regular Rhythm GI/Abdominal Exam: Normal Bowel Sounds, Soft, Non-Tender, No Organomegaly, No Distention (Male) Exam: Deferred Rectal (Males) Exam: Deferred Back Exam: Reports: Normal Inspection Extremities: Normal Inspection, Normal Range of Motion, Non-Tender Skin: Reports: Warm, Dry, Intact Neurological: Reports: No New Focal Deficit, Normal Gait, Normal Speech Psy/Mental Status: Reports: Alert, Normal Affect, Normal Mood
[2018-03-10] MEDS ORDERED: Potassium Chloride 20 MEQ Tab.ER PO ONE (12:15)
[2018-03-10 12:44] VITALS: BP 131/98
== END 2018-03-10 13:00 | disposition home or self-care (01) | DRG 638 ==
LOC: JD.ED 18:49 → JD.ICU 21:24
PROVIDERS: ADMIT Internal Medicine Cardiovascular Disease; ATTEND Internal Medicine Cardiovascular Disease
DX: E10.10 Type 1 diabetes mellitus with ketoacidosis without coma (principal); Z68.1 Body mass index [BMI] 19.9 or less, adult; Z91.19 Patient's noncompliance with other medical treatment and regimen; E86.0 Dehydration; F17.210 Nicotine dependence, cigarettes, uncomplicated; E66.9 Obesity, unspecified; G25.81 Restless legs syndrome; I10 Essential (primary) hypertension; Z96.41 Presence of insulin pump (external) (internal); G89.4 Chronic pain syndrome; I25.2 Old myocardial infarction
CPT/HCPCS: 36415; 36600; 71045; 71045-26; 71046; 71046-26; 80048; 80053; 81001; 82009; 82803; 82947; 82962; 83036; 83605; 83690; 83735; 84484; 85025; 85379; 87046; 87486; 87581; 87633; 87798; 93005; 96361; 96365; 96366; 96368; 99285-25; 99291; A9270-GY; J1815; J2405; J3475; J3480; J3490; J7030; J7040; J7050; J7060

== ENCOUNTER 2018-10-15 13:01 | Emergency (ER) | payer MEDICAID ==
[2018-10-15 13:13] VITALS: BP 112/84
[2018-10-15] MEDS ORDERED: Sodium Chloride 0.9% 10 ML Syringe FLUSH PRN (13:32)
[2018-10-15] MEDS ORDERED: Sodium Chloride 0.9% 1,000 ML IV SCH ×3 (13:45→18:00)
[2018-10-15] MEDS ORDERED: Insulin Regular, Human 100 Units/ML 3 ML Vial IVPUSH ONE ×3 (13:48→18:48)
--- NOTE | 2018-10-15 14:55 | EDM.PDOC ---
ED HPI GENERAL MEDICAL PROBLEM - General Chief Complaint: Diabetic Complaint Stated Complaint: IN DKA Time Seen by Provider: 10/15/18 13:31 Source of Information: Reports: Patient, RN Notes Reviewed - History of Present Illness INITIAL COMMENTS - FREE TEXT/NARRATIVE: 23-year-old male comes in with nausea, vomiting, shortness of breath. He does have history of insulin-dependent diabetes. His sugars have been running high. He states that he started with the nausea vomiting 3 to 4 days ago. He states yesterday he basically just stayed in bed all day and slept. He has no chest or abdominal pain at this time. He is not having diarrhea. He states his insulin pump is running at 2 units per hour. Chest Pain Score (Numeric/FACES): 4 - Related Data Allergies Allergy/AdvReac Type Severity Reaction Status Date / Time No Known Allergies Allergy Verified 03/08/18 19:03 Home Meds: Home Meds Insulin Pump/Infus. Set/Meter [Accu-Chek Combo System] 2 unit SQ ASDIRECTED [History] Past Medical History HEENT History: Reports: Impaired Vision Cardiovascular History: Reports: Hypertension Gastrointestinal History: Reports: Other (See Below) Other Gastrointestinal History: patient has had liver biopsy Genitourinary History: Reports: Diabetic Nephropathy Musculoskeletal History: Reports: Fracture Other Musculoskeletal History: "boxer fracture" - fifth knuckle fracture November 2016 Neurological History: Reports: Head Trauma Psychiatric History: Reports: Depression Endocrine/Metabolic History: Reports: Diabetes, Type I Other Endocrine/Metabolic History: Diabetic ketoacidosis. Insulin pump. brittle diabetic - Infectious Disease History Infectious Disease History: Reports: None - Past Surgical History Cardiovascular Surgical History: Reports: None Male Surgical History: Reports: Circumcision Social & Family History - Family History Family Medical History: Noncontributory Cardiac: Reports: [facility] - Tobacco Use Smoking Status *Q: Never Smoker - Caffeine Use Caffeine Use: Reports: Coffee, Energy Drinks, Soda, Tea Other Caffeine Use: 1-2 cups - Recreational Drug Use Recreational Drug Use: No - Living Situation & Occupation Living situation: Reports: Single, with Family Occupation: Unemployed ED ROS GENERAL - Review of Systems Review Of Systems: See Below Constitutional: Denies: Fever, Chills, Diaphoresis HEENT: Reports: Other. Denies: Throat Pain Respiratory: Reports: Shortness of Breath (Mouth feels dry) Cardiovascular: Denies: Chest Pain GI/Abdominal: Reports: Nausea, Vomiting. Denies: Abdominal Pain, Diarrhea : Reports: Frequency Musculoskeletal: Reports: No Symptoms Skin: Reports: No Symptoms Neurological: Reports: Dizziness, Weakness (Generalized) ED EXAM GENERAL NO PERIP PULSE - Physical Exam Exam: See Below General Appearance: Alert, Moderate Distress Eye Exam: Bilateral Eye: PERRL Ears: Normal External Exam Throat/Mouth: Other Head: Atraumatic (Oral mucosa dry). No: Facial Swelling Neck: Supple, Full Range of Motion Respiratory/Chest: No Respiratory Distress, Lungs Clear, Normal Breath Sounds Cardiovascular: Tachycardia GI/Abdominal: Soft, Non-Tender Back Exam: No: CVA Tenderness (L), CVA Tenderness (R) Extremities: Normal Inspection, Normal Range of Motion Neurological: Alert, Oriented, No Motor/Sensory Deficits Skin Exam: Warm, Dry, Pallor Course - Vital Signs Last Recorded V/S: Last Vital Signs Temp 97.1 F 10/15/18 13:12 Pulse 121 H 10/15/18 13:12 Resp 20 10/15/18 13:12 BP 112/84 10/15/18 13:12 Pulse Ox 100 10/15/18 13:12 - Orders/Labs/Meds Labs: Laboratory Tests 10/15/18 10/15/18 10/15/18 Range/Units 13:44 13:44 13:55 WBC 7.69 (4.23-9.07) K/mm3 RBC 6.22 H (4.63-6.08) M/mm3 Hgb 16.6 (13.7-17.5) gm/L Hct 45.7 (40.1-51.0) % MCV 73.5 L (79.0-92.2) fl MCH 26.7 (25.7-32.2) pg MCHC 36.3 H (32.2-35.5) g/dl RDW Std Deviation 37.3 (35.1-43.9) fL Plt Count 397 H (163-337) K/mm3 MPV 9.6 (9.4-12.3) fl Neut % (Auto) 58.4 (34.0-67.9) % Lymph % (Auto) 32.5 (21.8-53.1) % Oliver % (Auto) 7.5 (5.3-12.2) % Eos % (Auto) 0.4 L (0.8-7.0) Baso % (Auto) 0.4 (0.1-1.2) % Neut # (Auto) 4.49 (1.78-5.38) K/mm3 Lymph # (Auto) 2.50 (1.32-3.57) K/mm3 Oliver # (Auto) 0.58 (0.30-0.82) K/mm3 Eos # (Auto) 0.03 L (0.04-0.54) K/mm3 Baso # (Auto) 0.03 (0.01-0.08) K/mm3 Manual Slide Review Abnormal smear Puncture Site ABG pH (7.35-7.45) ABG pCO2 (35.0-45.0) mmHg ABG pO2 (80.0-100.0) mmHg ABG HCO3 (22.0-26.0) meq/L ABG O2 Saturation (96.0-97.0) % ABG Base Excess (-2-2.0) Carson Test A-a Gradient mmHg Blood Gas Comments Sodium 128 L (136-145) mEq/L Potassium 4.7 (3.5-5.1) mEq/L Chloride 92 L (98-107) mEq/L Carbon Dioxide 16 L (21-32) mEq/L Anion Gap 24.7 H (5-15) BUN 17 (7-18) mg/dL Creatinine 1.5 H (0.7-1.3) mg/dL Est Cr Clr Drug Dosing 59.97 mL/min Estimated GFR (MDRD) 59 (>60) mL/min BUN/Creatinine Ratio 11.3 L (14-18) Glucose 471 H (74-106) mg/dL POC Glucose (70-105) mg/dL Lactic Acid 1.3 (0.4-2.0) mmol/L Calcium 9.4 (8.5-10.1) mg/dL Total Bilirubin 0.9 (0.2-1.0) mg/dL AST 13 L (15-37) U/L ALT 28 (16-63) U/L Alkaline Phosphatase 107 (46-116) U/L Total Protein 9.0 H (6.4-8.2) g/dl Albumin 4.6 (3.4-5.0) g/dl Globulin 4.4 gm/dL Albumin/Globulin Ratio 1.1 (1-2) 10/15/18 10/15/18 10/15/18 Range/Units 15:09 16:12 16:40 WBC (4.23-9.07) K/mm3 RBC (4.63-6.08) M/mm3 Hgb (13.7-17.5) gm/L Hct (40.1-51.0) % MCV (79.0-92.2) fl MCH (25.7-32.2) pg MCHC (32.2-35.5) g/dl RDW Std Deviation (35.1-43.9) fL Plt Count (163-337) K/mm3 MPV (9.4-12.3) fl Neut % (Auto) (34.0-67.9) % Lymph % (Auto) (21.8-53.1) % Oliver % (Auto) (5.3-12.2) % Eos % (Auto) (0.8-7.0) Baso % (Auto) (0.1-1.2) % Neut # (Auto) (1.78-5.38) K/mm3 Lymph # (Auto) (1.32-3.57) K/mm3 Oliver # (Auto) (0.30-0.82) K/mm3 Eos # (Auto) (0.04-0.54) K/mm3 Baso # (Auto) (0.01-0.08) K/mm3 Manual Slide Review Puncture Site Lt radial ABG pH 7.29 L (7.35-7.45) ABG pCO2 23.5 L (35.0-45.0) mmHg ABG pO2 105.0 H (80.0-100.0) mmHg ABG HCO3 11.0 L (22.0-26.0) meq/L ABG O2 Saturation 99.1 H (96.0-97.0) % ABG Base Excess -13.8 L (-2-2.0) Carson Test Positive A-a Gradient 0 mmHg Blood Gas Comments P Sodium (136-145) mEq/L Potassium (3.5-5.1) mEq/L Chloride (98-107) mEq/L Carbon Dioxide (21-32) mEq/L Anion Gap (5-15) BUN (7-18) mg/dL Creatinine (0.7-1.3) mg/dL Est Cr Clr Drug Dosing mL/min Estimated GFR (MDRD) (>60) mL/min BUN/Creatinine Ratio (14-18) Glucose (74-106) mg/dL POC Glucose 343 H 309 H (70-105) mg/dL Lactic Acid (0.4-2.0) mmol/L Calcium (8.5-10.1) mg/dL Total Bilirubin (0.2-1.0) mg/dL AST (15-37) U/L ALT (16-63) U/L Alkaline Phosphatase (46-116) U/L Total Protein (6.4-8.2) g/dl Albumin (3.4-5.0) g/dl Globulin gm/dL Albumin/Globulin Ratio (1-2) 10/15/18 10/15/18 10/15/18 Range/Units 17:10 18:44 19:47 WBC (4.23-9.07) K/mm3 RBC (4.63-6.08) M/mm3 Hgb (13.7-17.5) gm/L Hct (40.1-51.0) % MCV (79.0-92.2) fl MCH (25.7-32.2) pg MCHC (32.2-35.5) g/dl RDW Std Deviation (35.1-43.9) fL Plt Count (163-337) K/mm3 MPV (9.4-12.3) fl Neut % (Auto) (34.0-67.9) % Lymph % (Auto) (21.8-53.1) % Oliver % (Auto) (5.3-12.2) % Eos % (Auto) (0.8-7.0) Baso % (Auto) (0.1-1.2) % Neut # (Auto) (1.78-5.38) K/mm3 Lymph # (Auto) (1.32-3.57) K/mm3 Oliver # (Auto) (0.30-0.82) K/mm3 Eos # (Auto) (0.04-0.54) K/mm3 Baso # (Auto) (0.01-0.08) K/mm3 Manual Slide Review Puncture Site ABG pH (7.35-7.45) ABG pCO2 (35.0-45.0) mmHg ABG pO2 (80.0-100.0) mmHg ABG HCO3 (22.0-26.0) meq/L ABG O2 Saturation (96.0-97.0) % ABG Base Excess (-2-2.0) Carson Test A-a Gradient mmHg Blood Gas Comments Sodium (136-145) mEq/L Potassium (3.5-5.1) mEq/L Chloride (98-107) mEq/L Carbon Dioxide (21-32) mEq/L Anion Gap (5-15) BUN (7-18) mg/dL Creatinine (0.7-1.3) mg/dL Est Cr Clr Drug Dosing mL/min Estimated GFR (MDRD) (>60) mL/min BUN/Creatinine Ratio (14-18) Glucose (74-106) mg/dL POC Glucose 303 H 252 H 212 H (70-105) mg/dL Lactic Acid (0.4-2.0) mmol/L Calcium (8.5-10.1) mg/dL Total Bilirubin (0.2-1.0) mg/dL AST (15-37) U/L ALT (16-63) U/L Alkaline Phosphatase (46-116) U/L Total Protein (6.4-8.2) g/dl Albumin (3.4-5.0) g/dl Globulin gm/dL Albumin/Globulin Ratio (1-2) Meds: Medications Discontinued Medications Generic Name Dose Route Start Last Admin Trade Name Wendi PRN Reason Stop Dose Admin Sodium Chloride 1,000 mls @ 999 mls/hr 10/15/18 13:45 10/15/18 14:19 Normal Saline IV 999 mls/hr ONETIME PRINCE Administration Sodium Chloride 1,000 mls @ 999 mls/hr 10/15/18 16:15 10/15/18 16:09 Normal Saline IV 999 mls/hr ONETIME PRINCE Administration Sodium Chloride 1,000 mls @ 999 mls/hr 10/15/18 18:00 10/15/18 17:52 Normal Saline IV 999 mls/hr ONETIME PRINCE Administration Insulin Human Regular 5 unit 10/15/18 13:48 01/25/19 14:18 Humulin R IVPUSH 10/15/18 13:49 5 units ONETIME ONE Administration Protocol Insulin Human Regular 3 unit 10/15/18 17:46 10/15/18 17:52 Humulin R IVPUSH 10/15/18 17:47 3 units ONETIME ONE Administration Protocol Insulin Human Regular 3 unit 10/15/18 18:48 10/15/18 19:01 Humulin R IVPUSH 10/15/18 18:49 3 units ONETIME ONE Administration Protocol Ondansetron HCl 4 mg 10/15/18 17:13 10/15/18 17:51 Zofran IVPUSH 10/15/18 17:14 4 mg ONETIME ONE Administration Sodium Chloride 10 ml 10/15/18 13:32 10/15/18 14:20 Saline Flush FLUSH 10 ml ASDIRECTED PRN Administration Keep Vein Open - Re-Assessments/Exams Free Text/Narrative Re-Assessment/Exam: 10/17/18 12:21 We gave him over 3 liters of fluid over 6 or more hours, multiple doses of IV insulin. Glucose trended down to around 230, eating, drinking at time of discharge, felt up to going home. Discharge instr. as documented. Departure - Departure Time of Disposition: 20:34 Disposition: Home, Self-Care 01 Condition: Fair Clinical Impression: Hyperglycemia - Discharge Information Instructions: Hyperglycemia, [id number] Referrals: PCP,Not In Area [Primary Care Provider] - Forms: ED Department Discharge Additional Instructions: Continue to drink plenty of water to maintain hydration, check your blood sugars 4 times daily, adjust your pump as needed. Return to ED if not better tomorrow or if symptoms worsening in any way at any time. Follow up with your regular medical provider in 2-3 days for recheck, call for appointment Thursday.
[2018-10-15] MEDS ORDERED: Ondansetron 4 MG/2 ML SDV IVPUSH ONE (17:13)
== END 2018-10-15 20:52 | disposition home or self-care (01) ==
LOC: JD.ED 13:01 → SUPCPDRO 13:01 → JD.ED 20:52
DX: E10.65 Type 1 diabetes mellitus with hyperglycemia (principal); E10.21 Type 1 diabetes mellitus with diabetic nephropathy; I10 Essential (primary) hypertension
CPT/HCPCS: 36415; 36600; 80053; 82803; 82962; 83605; 85025; 96361; 96374; 96375; 96376; 99285; J1815; J2405; J7040

== ENCOUNTER 2019-05-20 11:42 | Emergency (ER) | payer MEDICAID, SELFPAY ==
[2019-05-20 11:54] VITALS: BP 145/102
[2019-05-20] MEDS ORDERED: Albuterol/Ipratropium 3.0-0.5 MG/3 ML Neb Soln NEB ONE (11:56)
--- NOTE | 2019-05-20 11:59 | EDM.PDOC ---
ED HPI GENERAL MEDICAL PROBLEM - General Chief Complaint: Respiratory Problem Stated Complaint: TROUBLE BREATHING Time Seen by Provider: 05/20/19 11:56 Source of Information: Reports: Patient History Limitations: Reports: No Limitations - History of Present Illness INITIAL COMMENTS - FREE TEXT/NARRATIVE: 24-year-old male presents to the ED with difficulties breathing. States he's had some stridorous breathing since being discharged from [facility] after being intubated after presenting to the ED here with diabetic coma. This was on April 28.. He states that is gradually getting worse. He was severely acidotic at that time and required intubation and ventilation. This was April 28. He states the ET tube was taken out about 7:00 that evening and was placed about 3:00 in the morning. He states he has a mild cough cues and not bringing up any sputum. Denies any fever or chills. Diffuse audible wheezing with a component of stridor. It's is normal suggesting that he is not hoarse or having laryngeal injury from being intubated. Is been intubated twice in the last month her head and a half due to diabetic coma. No past history of asthma. States his blood sugars have been between 95 and 200 on insulin pump since discharge. States after he was intubated for about 5-1/2 days in mid March for diabetic acidosis he developed stridor for about 5-7 days after discharge from hospital. It up. Onset: Gradual Onset Date: 05/10/19 Duration: Day(s):, Getting Worse (Kept him awake last night.) Location: Reports: Chest (Audible wheezing with a stridorous component.) Severity: Moderate Improves with: Reports: None Worsens with: Reports: Other Context: Reports: Other (Has been intubated twice in the last 6 weeks. ). Denies: Activity, Exercise, Lifting, Sick Contact, Trauma Associated Symptoms: Reports: Cough, Shortness of Breath. 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 Set/Meter [Accu-Chek Combo System] 2 unit SQ ASDIRECTED [History] Fluticasone Propionate [Flovent HFA 110 MCG] 2 puff INH TID #1 inhaler 05/20/19 [Rx] Past Medical History HEENT History: Reports: Impaired Vision Cardiovascular History: Reports: Hypertension Gastrointestinal History: Reports: Other (See Below) Other Gastrointestinal History: patient has had liver biopsy Genitourinary History: Reports: Diabetic Nephropathy Musculoskeletal History: Reports: Fracture Other Musculoskeletal History: "boxer fracture" - fifth knuckle fracture November 2016 Neurological History: Reports: Head Trauma Psychiatric History: Reports: Depression Endocrine/Metabolic History: Reports: Diabetes, Type I Other Endocrine/Metabolic History: Diabetic ketoacidosis. Insulin pump. brittle diabetic - Infectious Disease History Infectious Disease History: Reports: None - Past Surgical History Cardiovascular Surgical History: Reports: None Male Surgical History: Reports: Circumcision Social & Family History - Family History Family Medical History: Noncontributory Cardiac: Reports: SD - Caffeine Use Caffeine Use: Reports: Coffee, Energy Drinks, Soda, Tea Other Caffeine Use: 1-2 cups - Living Situation & Occupation Living situation: Reports: Single, with Family (Lives with his grandparents. He has a son that lives with grandparents as well.) Occupation: Unemployed ED ROS GENERAL - Review of Systems Review Of Systems: See Below Constitutional: Reports: Fatigue, Other. Denies: Fever, Chills, Malaise, Weakness, Decreased Appetite, Weight Loss (From not sleeping last night.) HEENT: Reports: No Symptoms (Is starting to gain back some weight currently up to 131 pounds.) Respiratory: Reports: Shortness of Breath, Wheezing, Cough (Audible wheezing with a stridorous component) Cardiovascular: Reports: No Symptoms ( cough which is mostly nonproductive) Endocrine: Reports: Fatigue, Other (Lunch sugars seem to be under much better control according to the patient 95-200.) GI/Abdominal: Reports: No Symptoms : Reports: Frequency Musculoskeletal: Reports: No Symptoms Skin: Reports: No Symptoms Neurological: Reports: No Symptoms Psychiatric: Reports: No Symptoms Hematologic/Lymphatic: Reports: No Symptoms Immunologic: Reports: No Symptoms ED EXAM, GENERAL - Physical Exam Exam: See Below Exam Limited By: No Limitations General Appearance: Alert, WD/WN, Other (Mild respiratory distress. Respiratory distress 25-28/m with sats 100% but he does have a audible wheeze on inspiration with a stridorous component.) Eye Exam: Bilateral Eye: Normal Inspection Ears: Normal External Exam, Normal TMs Throat/Mouth: Normal Inspection, Normal Lips, Normal Teeth, Normal Oropharynx Head: Atraumatic, Normocephalic Neck: Normal Inspection, Supple, Non-Tender, Full Range of Motion Respiratory/Chest: Wheezing, Stridor Cardiovascular: Normal Peripheral Pulses, Regular Rate, Rhythm, No Edema, No Murmur, No Rub Peripheral Pulses: 3+: Posterior Tibial (L), Posterior Tibial (R), Dorsalis Pedis (L), Dorsalis Pedis (R) GI/Abdominal: Normal Bowel Sounds, Soft, Non-Tender, No Organomegaly, No Mass, Pelvis Stable, Other (Insulin pump embedded in the left upper abdomen.) Back Exam: Normal Inspection, Full Range of Motion. No: CVA Tenderness (L), CVA Tenderness (R) Extremities: Other (Having some pain left medial knee. States it'll give out, time suggesting possible torn medial meniscus. He has recently fallen and stubbed his right second toe and believes it is broken.) Neurological: Alert, Oriented, CN II-XII Intact, Normal Cognition Psychiatric: Normal Affect, Normal Mood Skin Exam: Warm, Dry, Intact, Normal Color, No Rash Course - Vital Signs Last Recorded V/S: Last Vital Signs Temp 36.8 C 05/20/19 11:53 Pulse 140 H 05/20/19 11:53 Resp 25 H 05/20/19 11:53 BP 145/102 H 05/20/19 11:53 Pulse Ox 100 05/20/19 16:36 - Orders/Labs/Meds Orders: Active Orders 24 hr Category Date Time Status RT Aerosol Therapy [RC] ASDIRECTED Care 05/20/19 11:56 Active RT Aerosol Therapy [RC] ASDIRECTED Care 05/20/19 16:36 Active Labs: Laboratory Tests 05/20/19 05/20/19 05/20/19 Range/Units 14:35 15:10 15:10 WBC 4.81 (4.23-9.07) K/mm3 RBC 4.30 L (4.63-6.08) M/mm3 Hgb 10.5 L (13.7-17.5) gm/L Hct 32.3 L (40.1-51.0) % MCV 75.1 L (79.0-92.2) fl MCH 24.4 L (25.7-32.2) pg MCHC 32.5 (32.2-35.5) g/dl RDW Std Deviation 38.0 (35.1-43.9) fL Plt Count 294 (163-337) K/mm3 MPV 8.6 L (9.4-12.3) fl Neut % (Auto) 59.7 (34.0-67.9) % Lymph % (Auto) 31.6 (21.8-53.1) % Mccone % (Auto) 6.0 (5.3-12.2) % Eos % (Auto) 1.7 (0.8-7.0) Baso % (Auto) 0.6 (0.1-1.2) % Neut # (Auto) 2.87 (1.78-5.38) K/mm3 Lymph # (Auto) 1.52 (1.32-3.57) K/mm3 Mccone # (Auto) 0.29 L (0.30-0.82) K/mm3 Eos # (Auto) 0.08 (0.04-0.54) K/mm3 Baso # (Auto) 0.03 (0.01-0.08) K/mm3 Sodium 137 D (136-145) mEq/L Potassium 3.5 D (3.5-5.1) mEq/L Chloride 100 D (98-107) mEq/L Carbon Dioxide 25 D (21-32) mEq/L Anion Gap 15.5 H (5-15) BUN 20 H D (7-18) mg/dL Creatinine 0.7 D (0.7-1.3) mg/dL Est Cr Clr Drug Dosing 139.12 mL/min Estimated GFR (MDRD) > 60 (>60) mL/min BUN/Creatinine Ratio 28.6 H (14-18) Glucose 279 H (74-106) mg/dL POC Glucose 286 H (70-105) mg/dL Calcium 9.6 D (8.5-10.1) mg/dL Magnesium 1.5 L (1.8-2.4) mg/dl Total Bilirubin 0.3 (0.2-1.0) mg/dL AST 14 L (15-37) U/L ALT 20 (16-63) U/L Alkaline Phosphatase 103 (46-116) U/L C-Reactive Protein 0.2 (<1.0) mg/dL Total Protein 7.1 (6.4-8.2) g/dl Albumin 3.5 (3.4-5.0) g/dl Globulin 3.6 gm/dL Albumin/Globulin Ratio 1.0 (1-2) Meds: Medications Discontinued Medications Generic Name Dose Route Start Last Admin Trade Name Freq PRN Reason Stop Dose Admin Albuterol/Ipratropium 3 ml 05/20/19 11:56 05/20/19 12:05 Duoneb 3.0-0.5 Mg/3 Ml NEB 05/20/19 11:57 3 ml ONETIME ONE Administration Sodium Chloride 1,000 mls @ 100 mls/hr 05/20/19 14:15 05/20/19 14:41 Normal Saline IV 100 mls/hr ASDIRECTED PRINCE Administration Iopamidol 100 ml 05/20/19 14:14 05/20/19 14:25 Isovue-300 (61%) IVPUSH 05/20/19 14:15 100 ml ONETIME ONE Administration Methylprednisolone Sodium Succinate 40 mg 05/20/19 17:15 05/20/19 17:57 Solu-Medrol IVPUSH 05/20/19 17:16 40 mg ONETIME ONE Administration Racepinephrine 0.5 ml 05/20/19 16:36 05/20/19 16:40 S-2 2.25% NEB 05/20/19 16:37 0.5 ml ONETIME ONE Administration Racepinephrine Confirm 05/20/19 16:38 05/20/19 16:42 S-2 2.25% Administered 05/20/19 16:39 Not Given Dose 0.5 ml .ROUTE .STK-MED ONE Sodium Chloride 10 ml 05/20/19 14:14 05/20/19 14:40 Saline Flush FLUSH 10 ml ONETIME PRN Administration IV FLUSH Sodium Chloride 3 ml 05/20/19 16:36 05/20/19 16:40 Sodium Chloride 0.9% INH 3 ml ASDIRECTED PRN Administration mix with racepinephrine neb - Radiology Interpretation Free Text/Narrative:: 24-year-old male presents to the ED with respiratory problems with audible wheezing and with a stridorous component. His phonation is normal. Note he's been intubated twice within the last 6 weeks due to presentation of the ED with diabetic coma and severe metabolic acidosis. The last time was April 28. He was extubated the same day about 1900 hrs. that evening and the ET tube was placed around 0230 hours in the morning that day. Blood sugars have come under good control since discharge from hospital. States wheezing stridor seemed to start shortly after discharge from hospital. Worse however kept him awake most of last night. No similar past history of any asthma symptoms. No tracheal tug. Phonation is normal. Diffuse audible expiratory wheezing with a stridorous component. One view chest x-ray to be done there. I will give him a DuoNeb to see if it makes a difference. - Re-Assessments/Exams Free Text/Narrative Re-Assessment/Exam: 05/20/19 12:59 Portable CXR has been completed. He does suggest there is some narrowing at the glottis. Patient really isn't any better as far as the stridor goes after receiving DuoNeb. Patient is developing some narrowing of his upper trachea and lower glottis after being intubated twice within the last 6 weeks. Ideally he needs a inhaled corticosteroid which will not aggravate his diabetes as badly. He gets his medications filled and [facility]. Going to discuss his case with the commercial journeyman electrician in [place] to see what they recommend in terms of treatment. Whether he should be admitted for IV corticosteroids and diabetic management I believe is up in the air. 05/20/19 14:08 I made decision to pursue CT of the neck with IV contrast a soft tissues to look for any extrinsic compression on the trachea that would cause stridor. After he was discharged from our hospital last time his creatinine was down to 1.0. When he presents to the ED with diabetic coma his renal function is always been very poor but seems to always recovered. I will have labs done at this time. I will then contact commercial journeyman electrician in this regard 05/20/19 15:57 Labs reveal a normal white count at 4.81. Auto differential shows 60% neutrophils. Hemoglobin slightly low at 10.5 hematocrit of 32.3. MCV is low at 75.1 suggesting iron deficiency anemia. Platelet count normal 294, 000. Sodium 137 with potassium low-normal at 3.5. Chloride is 100 with a bicarbonate of 25. Anion gap is 15.5. BUN is 20 with a creatinine of 0.7. GFR is greater than 60. BUN/creatinine ratio is 28.6 indicating is a little bit dry. Glucose is 279. Calcium is 9.6. Magnesium is 1.5 low liver function normal. C-reactive protein 0.2. Total protein 7.1 and albumin fraction of 3.5. Will try a course of racemic epinephrine to see if this helps alleviate some of his stridor. 05/20/19 16:44: Grandmother is very frustrated with us in terms of what the plan of action is. I have spoken at length with both hospitals in [place]. [facility] had very little to offer in terms that they do not have a commercial journeyman electrician on-call they do not have your nose and throat surgeon station tender and felt that they were inadequately prepared to look after this fellow. When I spoke to the on-call nurse at [facility] was directed primarily to Dr. Bailey icebox man. He was willing to take the patient however he wants support from your nose and throat and/or pulmonology. [facility] [employer] Adjuster felt that the patient should come in and get high-dose IV steroids to reduce his swelling however this will be a problem in terms that the patient is very labile type 1 diabetes and is prone to diabetic ketoacidosis and coma. Ear nose and throat surgeon is a local and felt that she did not have the adequate equipment to manage this case in terms of balloon plasty of the upper trachea if needed. They both felt that the patient would better served in [place] over [place] were adequate personnel to manage this rare but potential very serious complication be managed. However after further discussion with the grandmother and the patient they decided they did not want to travel to [place] or [place] at this time. I spoke with [facility] here nose and throat physician and she felt that they could manage him there. Patient is going to try things at home with Primatene Mist and Flovent 110 g 2 puffs 3 times daily totally not aggravate his blood sugars too badly. Epinephrine and Primatene Mist on a when necessary basis for stridor. He is to see how things go over the long weekend. If his condition worsens he's been instructed to to travel to [place] or return to the ED if he needs ambulance transfer to that facility. He was not interested in staying in our hospital at this time. Of note he got near complete resolution of his stridor with the racemic epinephrine given in the ED. His O2 sats remained 99-100% on room air while in the emergency room. He was here for well over 4-1/2 hours. Departure - Departure Time of Disposition: 13:19 Disposition: Home, Self-Care 01 Condition: Fair Clinical Impression: Subacute stridor, Postprocedural tracheal stenosis - Discharge Information *PRESCRIPTION DRUG MONITORING PROGRAM REVIEWED*: Not Applicable *COPY OF PRESCRIPTION DRUG MONITORING REPORT IN PATIENT [place]: Not Applicable Prescriptions: Fluticasone Propionate [Flovent HFA 110 MCG] 2 puff INH TID #1 inhaler Instructions: Stridor, Pediatric Referrals: PCP,Not In Area [Primary Care Provider] - Forms: ED Department Discharge Additional Instructions: Evaluation in the emergency room today in regards to development of gradually worsening inspiratory stridor since recent intubation and hospitalization in [place] on April 28. You intubated because of diabetic coma and cardiac arrest. The tube was taken out within 16 hours. Mentioned on last intubation in March were dispensing some inspiratory stridor for about a week and then it got better. On this occasion you have been having stridorous breathing for about 14- [address] does show that there is a narrowing of your upper airway and upper trachea concerning for development of stenosis or obstruction from scar tissue. There is no one in [place] that can care for you at this time as I have spent an hour on the phone discussing options with various specialties. Personnel in [place] at [facility] who can care for you if her symptoms worsen in the next 2-3 days. At this time you do not wish to travel to [place] therefore I'm going to suggest a trial of inhaled corticosteroid called Flovent 110 g 2 puffs morning and midday and bedtime for the next 10 days and see how you do. It can also cook pickled meat some Primatene Mist inhaler from local pharmacy or [employer] which is got epinephrine and it's similar to what I gave you in the emergency room which made to breathe much easier. However if your condition worsens then you should make arrangements to travel to [facility] as quickly as possible to be admitted for speciality care in this area. With steroids and use of epinephrine inhaler on an as-needed basis for bad stridor he should see improvement over the next 3-5 days. If there is no improvement in the next few days follow-up at speciality clinic in [place] is going to be required. - My Orders Last 24 Hours: My Active Orders 05/20/19 11:56 RT Aerosol Therapy [RC] ASDIRECTED 05/20/19 16:36 RT Aerosol Therapy [RC] ASDIRECTED - Assessment/Plan Last 24 Hours: My Active Orders 05/20/19 11:56 RT Aerosol Therapy [RC] ASDIRECTED 05/20/19 16:36 RT Aerosol Therapy [RC] ASDIRECTED
--- NOTE | 2019-05-20 13:21 | CR ---
Chest: Portable view of the chest was obtained. Comparison: Prior chest x-ray of 04/28/19. Heart size and mediastinum are normal. Lungs are clear. Bony structures are grossly intact. Mild subglottic narrowing is seen as well as slight narrowing of the upper trachea. Impression: 1. Mild subglottic narrowing as well as narrowing of the upper trachea. Findings presumably are residual from previous endotracheal tube. 2. Nothing acute is otherwise seen. Diagnostic code #3
[2019-05-20] MEDS ORDERED: Iopamidol 612 MG/ML 100 ML Bottle IVPUSH ONE (14:14)
[2019-05-20] MEDS ORDERED: Sodium Chloride 0.9% 1,000 ML IV SCH (14:15)
[2019-05-20] MEDS: Sodium Chloride 0.9% 10 ML Syringe FLUSH PRN ×2 (14:25→14:40)
--- NOTE | 2019-05-20 15:00 | CT ---
CT neck Technique: Multiple axial sections through the neck were obtained. Intravenous contrast was utilized. Reconstructed coronal and sagittal images were reviewed. Findings: Focal area of narrowing is seen in a transverse direction in the glottic region. Focal narrowing is also noted within the upper trachea. This confirms previous plain film findings to be real. Visualized lung apices are clear. Thyroid gland is normal. No other soft tissue abnormality is appreciated within the neck. No adenopathy is seen. Bone window settings were reviewed which appear within normal limits. Impression: 1. Focal narrowing in a transverse direction in the glottic region as well as narrowing seen within the upper trachea. This correlates to recent chest x-ray. Hopefully this represents soft tissue swelling from previous intubation and not early scarring. 2. CT study of the neck is otherwise unremarkable. Diagnostic code #3
[2019-05-20] MEDS ORDERED: Racepinephrine 2.25% 0.5 ML Neb Soln NEB ONE (16:36)
[2019-05-20] MEDS ORDERED: Sodium Chloride 0.9% Inhalation Soln 3 ML Neb INH PRN (16:36)
[2019-05-20] MEDS ORDERED: Racepinephrine 2.25% 0.5 ML Neb Soln ONE (16:38)
[2019-05-20] MEDS ORDERED: methylPREDNISolone Sodium Succinate 40 MG/1 ML SDV IVPUSH ONE (17:15)
== END 2019-05-20 17:45 | disposition home or self-care (01) ==
LOC: JD.ED 11:42
DX: J95.89 Other postprocedural complications and disorders of respiratory system, not elsewhere classified (principal); J39.8 Other specified diseases of upper respiratory tract; R06.1 Stridor; E10.9 Type 1 diabetes mellitus without complications; I10 Essential (primary) hypertension
CPT/HCPCS: 36415; 70491; 71045; 80053; 82962; 83735; 85025; 86140; 94640; 96361; 96374; 99285; A9270; J2920; J7040; Q9967; J7620-GY

== ENCOUNTER 2020-05-04 21:07 | Inpatient (IN) | payer MEDICAID ==
[2020-05-04] MEDS ORDERED: Sodium Chloride 0.9% 1,000 ML IV ONE ×2 (22:16→23:46)
--- NOTE | 2020-05-04 22:20 | EDM.PDOC ---
ED HPI GENERAL MEDICAL PROBLEM - General Chief Complaint: Diabetic Complaint Stated Complaint: VOMITING ALL DAY Time Seen by Provider: 05/04/20 21:56 Source of Information: Reports: Patient History Limitations: Reports: No Limitations - History of Present Illness INITIAL COMMENTS - FREE TEXT/NARRATIVE: Mr. Berg is a very pleasant 25-year-old gentleman with a past medical history significant for type 1 diabetes, who states that he started vomiting around 8:00 this morning. His last Accu-Chek was sometime this morning, in the 230 range, however, he subsequently misplaced his glucometer and was therefore unable to check his blood glucose. The patient states that he give himself 5 units of insulin, in addition to his usual insulin pump rate, around 19:00 this evening. Here in the ED, the patient is found to be modestly tachycardic at 118 bpm, otherwise, he is hemodynamically stable, afebrile, saturating 100% on room air. An Accu-Chek at triage was >400. Other than 2 days of vomiting, the patient reports that he has a chronic occasional dry cough, due to being intubated last year. Otherwise, the patient denies having a recent fever, chills, sore throat, ear pain, nasal or sinus congestion, dyspnea, chest pain, palpitations, constipation, diarrhea, abdominal pain, urinary symptoms, recent weight gain or weight loss, recent bloody bowel movements or black bowel movements, recent joint aches, headaches, or rashes. The patient's PCP is Faina Frost NP, at the [facility]. His diabetes midlevel is BETO Ramirez, at [facility]. - Related Data Allergies Allergy/AdvReac Type Severity Reaction Status Date / Time No Known Allergies Allergy Verified 05/05/20 02:12 Home Meds: Home Meds Insulin Pump/Infus. Set/Meter [Accu-Chek Combo System] 2 unit SQ ASDIRECTED 03/09/17 [History] Fluticasone Propionate [Flovent HFA 110 MCG] 2 puff INH TID #1 inhaler 05/20/19 [Rx] Past Medical History HEENT History: Reports: Allergic Rhinitis, Impaired Vision Musculoskeletal History: Reports: Fracture (right 5th metacarpal Nov 2016) Endocrine/Metabolic History: Reports: Diabetes, Type I - Past Surgical History GI Surgical History: Reports: Other (See Below) (Liver bx) Male Surgical History: Reports: Circumcision Social & Family History - Family History Family Medical History: Noncontributory Cardiac: Reports: RI - Tobacco Use Smoking Status *Q: Former Smoker Years of Tobacco use: 5 Packs/Tins Daily: 0.5 Month/Year Tobacco Last Used: Quit 2018 - Caffeine Use Caffeine Use: Reports: Coffee, Energy Drinks, Soda, Tea Other Caffeine Use: 1-2 cups - Alcohol Use Alcohol Use History: Yes Alcohol Use Frequency: Socially - Recreational Drug Use Recreational Drug Use: Yes Drug Use in Last 12 Months: No Recreational Drug Type: Reports: Marijuana/Hashish (last smoked in 2019) - Living Situation & Occupation Living situation: Reports: Single, Other (with friends) Occupation: Employed ([employer]) ED ROS GENERAL - Review of Systems Review Of Systems: Comprehensive ROS is negative, except as noted in HPI. ED EXAM GENERAL NO PERIP PULSE - Physical Exam Exam: See Below Exam Limited By: No Limitations General Appearance: Alert, No Apparent Distress, Thin Eye Exam: Bilateral Eye: EOMI, Normal Inspection Ears: Normal External Exam, Hearing Grossly Normal Nose: Normal Inspection Throat/Mouth: Normal Inspection, Normal Lips, Normal Voice, No Airway Compromise Head: Atraumatic, Normocephalic Neck: Normal Inspection, Full Range of Motion Respiratory/Chest: No Respiratory Distress, Lungs Clear, Normal Breath Sounds, No Accessory Muscle Use Cardiovascular: Normal Peripheral Pulses, No Edema, No Gallop, No JVD, No Murmur, No Rub, Tachycardia (regular) GI/Abdominal: Normal Bowel Sounds, Soft, Non-Tender, No Organomegaly, No Distention, No Abnormal Bruit, No Mass (Male) Exam: Deferred Rectal (Males) Exam: Deferred Back Exam: Normal Inspection, Full Range of Motion, NT Extremities: Normal Inspection, Normal Range of Motion, No Pedal Edema, Normal Capillary Refill Neurological: Alert, Oriented, Normal Cognition, No Motor/Sensory Deficits Psychiatric: Normal Affect Skin Exam: Warm, Dry, Intact, Normal Color, No Rash EKG INTERPRETATION EKG Date: 05/04/20 Time: 22:24 Rhythm: Other (Sinus tachycardia) Rate (Beats/Min): 105 [place]: Normal P-Wave: Present (? GÓMEZ ?) QRS: Normal ST-T: Normal QT: Normal Comparison: Change From Previous EKG (ECG with nonspecific intraventricular conduction delay on 03/30/2019) Course - Vital Signs Last Recorded V/S: Last Vital Signs Temp 36.1 C 05/04/20 21:23 Pulse 118 H 05/04/20 21:23 Resp 18 05/04/20 21:23 BP 123/88 05/04/20 21:23 Pulse Ox 100 05/04/20 21:23 Orthostatic Blood Pressure [ 85/42 Standing] Orthostatic Blood Pressure [ 106/64 Supine] - Orders/Labs/Meds Orders: Active Orders 24 hr Category Date Time Status EKG Documentation Completion [RC] STAT Care 05/04/20 22:02 Active Orthostatic Vital Signs [RC] STAT Care 05/04/20 22:02 Active Chest 1V Frontal [CR] Stat Exams 05/04/20 22:01 Stop Req Chest 2V [CR] Stat Exams 05/04/20 22:18 Taken CULTURE BLOOD [BC] Stat Lab 05/04/20 23:05 Received CULTURE BLOOD [BC] Stat Lab 05/04/20 23:12 Received Insulin Regular, Human [HumuLIN R] 100 unit Med 05/04/20 23:30 Active Sodium Chloride 0.9% [Normal Saline] 99 ml IV TITRATE Blood Culture x2 Reflex Set [OM.PC] Stat Oth 05/04/20 22:03 Ordered Medication Orders Insulin Human Regular 100 unit (/ Sodium Chloride) 100 mls @ 3.402 mls/hr IV TITRATE PRINCE; Protocol Last Admin: 05/05/20 00:22 Dose: 0.06 units/kg/hr, 3.402 mls/hr Documented by: MEGAN Cosigned by: AG Potassium Chloride/Dextrose/Sod Cl (D5 Ns With 20 Meq Kcl) 1,000 mls @ 150 mls/hr IV ASDIRECTED PRINCE Last Admin: 05/05/20 01:54 Dose: 150 mls/hr Documented by: MARIA ELENA Ceftriaxone Sodium 1 gm/ (Sodium Chloride) 100 mls @ 200 mls/hr IV Q24H PRINCE Ondansetron HCl (Zofran) 4 mg IV Q4H PRN PRN Reason: Nausea/Vomiting Labs: Laboratory Tests 05/04/20 05/04/20 05/04/20 Range/Units 22:00 22:00 22:00 WBC 7.29 (4.23-9.07) K/mm3 RBC 5.35 (4.63-6.08) M/mm3 Hgb 14.3 D (13.7-17.5) gm/dl Hct 41.6 (40.1-51.0) % MCV 77.8 L (79.0-92.2) fl MCH 26.7 (25.7-32.2) pg MCHC 34.4 (32.2-35.5) g/dl RDW Std Deviation 38.5 (35.1-43.9) fL Plt Count 257 (163-337) K/mm3 MPV 10.4 (9.4-12.3) fl Neutrophils % (Manual) 73 H (40-60) % Band Neutrophils % 0 (0-10) % Lymphocytes % (Manual) 26 (20-40) % Atypical Lymphs % 0 % Monocytes % (Manual) 1 L (2-10) % Eosinophils % (Manual) 0 L (0.8-7.0) % Basophils % (Manual) 0 L (0.2-1.2) Platelet Estimate Adequate Poikilocytosis 1+ slight Microcytosis 1+ slight Ovalocytes 1+ slight RBC Morph Comment Not Reportable Puncture Site ABG pH (7.35-7.45) ABG pCO2 (35.0-45.0) mmHg ABG pO2 (80.0-100.0) mmHg ABG HCO3 (22.0-26.0) meq/L ABG O2 Saturation (96.0-97.0) % ABG Base Excess (-2-2.0) Sodium 129 L (136-145) mEq/L Potassium 5.1 D (3.5-5.1) mEq/L Chloride 95 L (98-107) mEq/L Carbon Dioxide 16 L (21-32) mEq/L Anion Gap 23.1 H (5-15) BUN 25 H (7-18) mg/dL Creatinine 1.2 (0.7-1.3) mg/dL Est Cr Clr Drug Dosing 76.78 mL/min Estimated GFR (MDRD) > 60 (>60) mL/min BUN/Creatinine Ratio 20.8 H (14-18) Glucose 499 H (74-106) mg/dL POC Glucose (70-105) mg/dL Lactic Acid (0.4-2.0) mmol/L Calcium 9.4 (8.5-10.1) mg/dL Magnesium 2.0 (1.8-2.4) mg/dl Total Bilirubin 0.8 (0.2-1.0) mg/dL AST 14 L (15-37) U/L ALT 23 (16-63) U/L Alkaline Phosphatase 107 (46-116) U/L Total Protein 8.0 (6.4-8.2) g/dl Albumin 4.0 (3.4-5.0) g/dl Globulin 4.0 gm/dL Albumin/Globulin Ratio 1.0 (1-2) Urine Color (Yellow) Urine Appearance (Clear) Urine pH (5.0-8.0) Ur Specific Chloe (1.005-1.030) Urine Protein (Negative) Urine Glucose (UA) (Negative) Urine Ketones (Negative) Urine Occult Blood (Negative) Urine Nitrite (Negative) Urine Bilirubin (Negative) Urine Urobilinogen (0.2-1.0) Ur Leukocyte Esterase (Negative) Urine RBC (0-5) /hpf Urine WBC (0-5) /hpf Ur Squamous Epith Cells (0-5) /hpf Urine Bacteria (FEW) /hpf Urine Mucus (FEW) /hpf Urine Opiates Screen (RBGCJW=998) Ur Buprenorphine Scrn (CUTOFF=10) Ur Oxycodone Screen (OLD9TZ=258) Urine Methadone Screen (SDB4RT=330) Ur Propoxyphene Screen (TLAGAF=201) Ur Barbiturates Screen (GHVIHI=942) Ur Tricyclics Screen (CVGACF=235) Ur Phencyclidine Scrn (CUTOFF=25) Ur Amphetamine Screen (ACLBCU=294) U Methamphetamines Scrn (STLZVP=324) U Benzodiazepines Scrn (YRXKTF=287) U Cocaine Metab Screen (DQRXLA=654) U Marijuana (THC) Screen (CUTOFF=50) Ketones (0.0-0.3) mM 05/04/20 05/04/20 05/04/20 Range/Units 22:00 22:00 22:01 WBC (4.23-9.07) K/mm3 RBC (4.63-6.08) M/mm3 Hgb (13.7-17.5) gm/dl Hct (40.1-51.0) % MCV (79.0-92.2) fl MCH (25.7-32.2) pg MCHC (32.2-35.5) g/dl RDW Std Deviation (35.1-43.9) fL Plt Count (163-337) K/mm3 MPV (9.4-12.3) fl Neutrophils % (Manual) (40-60) % Band Neutrophils % (0-10) % Lymphocytes % (Manual) (20-40) % Atypical Lymphs % % Monocytes % (Manual) (2-10) % Eosinophils % (Manual) (0.8-7.0) % Basophils % (Manual) (0.2-1.2) Platelet Estimate Poikilocytosis Microcytosis Ovalocytes RBC Morph Comment Puncture Site Rt radial ABG pH 7.29 L (7.35-7.45) ABG pCO2 24.5 L (35.0-45.0) mmHg ABG pO2 115.0 H (80.0-100.0) mmHg ABG HCO3 11.4 L (22.0-26.0) meq/L ABG O2 Saturation 98.3 H (96.0-97.0) % ABG Base Excess -13.4 L (-2-2.0) Sodium (136-145) mEq/L Potassium (3.5-5.1) mEq/L Chloride (98-107) mEq/L Carbon Dioxide (21-32) mEq/L Anion Gap (5-15) BUN (7-18) mg/dL Creatinine (0.7-1.3) mg/dL Est Cr Clr Drug Dosing mL/min Estimated GFR (MDRD) (>60) mL/min BUN/Creatinine Ratio (14-18) Glucose (74-106) mg/dL POC Glucose (70-105) mg/dL Lactic Acid 2.0 (0.4-2.0) mmol/L Calcium (8.5-10.1) mg/dL Magnesium (1.8-2.4) mg/dl Total Bilirubin (0.2-1.0) mg/dL AST (15-37) U/L ALT (16-63) U/L Alkaline Phosphatase (46-116) U/L Total Protein (6.4-8.2) g/dl Albumin (3.4-5.0) g/dl Globulin gm/dL Albumin/Globulin Ratio (1-2) Urine Color (Yellow) Urine Appearance (Clear) Urine pH (5.0-8.0) Ur Specific Chloe (1.005-1.030) Urine Protein (Negative) Urine Glucose (UA) (Negative) Urine Ketones (Negative) Urine Occult Blood (Negative) Urine Nitrite (Negative) Urine Bilirubin (Negative) Urine Urobilinogen (0.2-1.0) Ur Leukocyte Esterase (Negative) Urine RBC (0-5) /hpf Urine WBC (0-5) /hpf Ur Squamous Epith Cells (0-5) /hpf Urine Bacteria (FEW) /hpf Urine Mucus (FEW) /hpf Urine Opiates Screen (CSLLWD=305) Ur Buprenorphine Scrn (CUTOFF=10) Ur Oxycodone Screen (BVX3BY=899) Urine Methadone Screen (GOO4ZQ=306) Ur Propoxyphene Screen (IPOSWE=455) Ur Barbiturates Screen (ZKSSEP=469) Ur Tricyclics Screen (UKEEKK=758) Ur Phencyclidine Scrn (CUTOFF=25) Ur Amphetamine Screen (ZEAYLY=292) U Methamphetamines Scrn (DKYNYY=108) U Benzodiazepines Scrn (HAIEZY=661) U Cocaine Metab Screen (ODUHAY=165) U Marijuana (THC) Screen (CUTOFF=50) Ketones 8.65 (0.0-0.3) mM 05/04/20 05/04/20 05/05/20 Range/Units 22:05 22:05 00:22 WBC (4.23-9.07) K/mm3 RBC (4.63-6.08) M/mm3 Hgb (13.7-17.5) gm/dl Hct (40.1-51.0) % MCV (79.0-92.2) fl MCH (25.7-32.2) pg MCHC (32.2-35.5) g/dl RDW Std Deviation (35.1-43.9) fL Plt Count (163-337) K/mm3 MPV (9.4-12.3) fl Neutrophils % (Manual) (40-60) % Band Neutrophils % (0-10) % Lymphocytes % (Manual) (20-40) % Atypical Lymphs % % Monocytes % (Manual) (2-10) % Eosinophils % (Manual) (0.8-7.0) % Basophils % (Manual) (0.2-1.2) Platelet Estimate Poikilocytosis Microcytosis Ovalocytes RBC Morph Comment Puncture Site ABG pH (7.35-7.45) ABG pCO2 (35.0-45.0) mmHg ABG pO2 (80.0-100.0) mmHg ABG HCO3 (22.0-26.0) meq/L ABG O2 Saturation (96.0-97.0) % ABG Base Excess (-2-2.0) Sodium (136-145) mEq/L Potassium (3.5-5.1) mEq/L Chloride (98-107) mEq/L Carbon Dioxide (21-32) mEq/L Anion Gap (5-15) BUN (7-18) mg/dL Creatinine (0.7-1.3) mg/dL Est Cr Clr Drug Dosing mL/min Estimated GFR (MDRD) (>60) mL/min BUN/Creatinine Ratio (14-18) Glucose (74-106) mg/dL POC Glucose 322 H (70-105) mg/dL Lactic Acid (0.4-2.0) mmol/L Calcium (8.5-10.1) mg/dL Magnesium (1.8-2.4) mg/dl Total Bilirubin (0.2-1.0) mg/dL AST (15-37) U/L ALT (16-63) U/L Alkaline Phosphatase (46-116) U/L Total Protein (6.4-8.2) g/dl Albumin (3.4-5.0) g/dl Globulin gm/dL Albumin/Globulin Ratio (1-2) Urine Color Yellow (Yellow) Urine Appearance Clear (Clear) Urine pH 5.5 (5.0-8.0) Ur Specific Chloe 1.025 (1.005-1.030) Urine Protein Negative (Negative) Urine Glucose (UA) 2+ H (Negative) Urine Ketones 4+ H (Negative) Urine Occult Blood Negative (Negative) Urine Nitrite Negative (Negative) Urine Bilirubin Negative (Negative) Urine Urobilinogen 0.2 (0.2-1.0) Ur Leukocyte Esterase Negative (Negative) Urine RBC 0-5 (0-5) /hpf Urine WBC 5-10 H (0-5) /hpf Ur Squamous Epith Cells 0-5 (0-5) /hpf Urine Bacteria Few (FEW) /hpf Urine Mucus Few (FEW) /hpf Urine Opiates Screen Negative (WOPLFI=611) Ur Buprenorphine Scrn Negative (CUTOFF=10) Ur Oxycodone Screen Negative (FLM7BF=571) Urine Methadone Screen Negative (CQM3LQ=568) Ur Propoxyphene Screen Negative (NTNUAE=169) Ur Barbiturates Screen Negative (BWHYNO=187) Ur Tricyclics Screen Negative (KCAUVP=940) Ur Phencyclidine Scrn Negative (CUTOFF=25) Ur Amphetamine Screen Negative (GCDXIF=978) U Methamphetamines Scrn Negative (GEJBIB=605) U Benzodiazepines Scrn Negative (SNKKXA=691) U Cocaine Metab Screen Negative (XMJNHY=140) U Marijuana (THC) Screen Negative (CUTOFF=50) Ketones (0.0-0.3) mM Meds: Medications Generic Name Dose Route Start Last Admin Trade Name Freq PRN Reason Stop Dose Admin Insulin Human Regular 100 unit 100 mls @ 3.402 mls/hr 05/04/20 23:30 05/05/20 00:22 / Sodium Chloride IV 0.06 units/kg/hr TITRATE PRINCE 3.402 mls/hr Administration Protocol 0.06 UNITS/KG/HR Potassium Chloride/Dextrose/Sod Cl 1,000 mls @ 150 mls/hr 05/05/20 01:45 05/05/20 01:54 D5 Ns With 20 Meq Kcl IV 150 mls/hr ASDIRECTED PRINCE Administration Ceftriaxone Sodium 1 gm/ 100 mls @ 200 mls/hr 05/05/20 02:00 Sodium Chloride IV Q24H PRINCE Ondansetron HCl 4 mg 05/05/20 02:04 Zofran IV Q4H PRN Nausea/Vomiting Discontinued Medications Generic Name Dose Route Start Last Admin Trade Name Freq PRN Reason Stop Dose Admin Sodium Chloride 1,000 mls @ 999 mls/hr 05/04/20 22:16 05/04/20 22:35 Normal Saline IV 05/04/20 23:16 999 mls/hr ONETIME ONE Administration Sodium Chloride 1,000 mls @ 999 mls/hr 05/04/20 23:46 05/05/20 00:21 Normal Saline IV 05/05/20 00:46 999 mls/hr ONETIME ONE Administration - Re-Assessments/Exams Free Text/Narrative Re-Assessment/Exam: 05/04/20 22:17 As above, the patient has type 1 diabetes, but misplaced his glucometer after a morning read in the 230s. He began vomiting around 8:00 this morning, but no other symptoms, such as fever or diarrhea. Here in the ED, he is found to be tachycardic at 118, but his physical exam is otherwise unremarkable. His Accu- Chek is over 400. I have ordered a work-up that includes orthostatics, blood work, an ABG, sets of blood cultures, a urinalysis, a chest x-ray, and an ECG. In the meantime, the patient will receive IV fluid. He states that he currently does not have nausea. 05/04/20 22:37 Two-view chest radiograph appears to be grossly normal. The cardiac silhouette is within normal limits. No pulmonary vascular congestion. No pleural effu sions. No focal infiltrate. No pneumothorax. Formal read per the Radiologist pending. The patient's CBC is unremarkable. His CMP is remarkable for a sodium depressed at 129, which corrects to 134. His anion gap is elevated at 23.1 with a bicarb depressed at 16. His BUN is mildly elevated 25 with a Cr normal at 1.2, and his blood glucose is elevated at 499, with the remainder of his CMP being unremarkable. His magnesium level is within normal limits at 2.0. His lactic acid level is within normal limits at 2.0. His urinalysis is remarkable for 2+ glucose and 4+ ketones, and is otherwise un remarkable. His urine drug screen is completely negative. His ABG represents a high anion gap metabolic acidosis with full respiratory compensation. Orthostatics have not yet been collected, and the patient's serum ketones are still pending. Based on the above, I estimate that the patient will need to be admitted, therefore I have added a test for the SARS-CoV-2 virus. 05/04/20 23:25 The patient's serum ketones have returned significantly elevated at 8.65. Based on the above, I have ordered an insulin drip to start at 0.06 units/kg/h. The patient's orthostatics and SARS-CoV-2 virus test results are still pending. 05/04/20 23:[address] Dinh at 23:28. He accepted the patient for admission to the ICU. 05/04/20 23:32 Test results and the plan for admission to the hospital discussed with the patient. He is agreeable. 05/05/20 02:14 The patient's orthostatics returned positive. His test for the SARS-CoV-2 virus returned negative. Departure - Departure Time of Disposition: 23:29 Disposition: Admitted As Inpatient 68 Condition: Fair Clinical Impression: Diabetic ketoacidosis Qualifiers: Diabetes mellitus type: type 1 Diabetes mellitus complication detail: without coma Qualified Code(s): E10.10 - Type 1 diabetes mellitus with ketoacidosis without coma - Discharge Information *PRESCRIPTION DRUG MONITORING PROGRAM REVIEWED*: Not Applicable *COPY OF PRESCRIPTION DRUG MONITORING REPORT IN PATIENT LENNOX: Not Applicable Sepsis Event Note (ED) - Evaluation Sepsis Screening Result: No Definite Risk - Focused Exam Vital Signs: Vital Signs Temp Pulse Resp BP Pulse Ox 05/04/20 21:23 36.1 C 118 H 18 123/88 100 - My Orders Last 24 Hours: My Active Orders 05/04/20 22:01 Chest 1V Frontal [CR] Stat 05/04/20 22:02 EKG Documentation Completion [RC] STAT Orthostatic Vital Signs [RC] STAT 05/04/20 22:03 Blood Culture x2 Reflex Set [OM.PC] Stat 05/04/20 22:18 Chest 2V [CR] Stat 05/04/20 23:05 CULTURE BLOOD [BC] Stat 05/04/20 23:12 CULTURE BLOOD [BC] Stat 05/04/20 23:30 Insulin Regular, Human [HumuLIN R] 100 unit Sodium Chloride 0.9% [Normal Saline] 99 ml IV TITRATE - Assessment/Plan Last 24 Hours: My Active Orders 05/04/20 22:01 Chest 1V Frontal [CR] Stat 05/04/20 22:02 EKG Documentation Completion [RC] STAT Orthostatic Vital Signs [RC] STAT 05/04/20 22:03 Blood Culture x2 Reflex Set [OM.PC] Stat 05/04/20 22:18 Chest 2V [CR] Stat 05/04/20 23:05 CULTURE BLOOD [BC] Stat 05/04/20 23:12 CULTURE BLOOD [BC] Stat 05/04/20 23:30 Insulin Regular, Human [HumuLIN R] 100 unit Sodium Chloride 0.9% [Normal Saline] 99 ml IV TITRATE
[2020-05-05] MEDS ORDERED: Dextrose 5%-0.9% NaCl with KCl 1,000 ML IV SCH (01:45)
[2020-05-05] MEDS ORDERED: Ondansetron 4 MG/2 ML SDV IV PRN (02:04)
--- NOTE | 2020-05-05 02:09 | PCM.HP.2 ---
H&P History of Present Illness - General Date of Service: 05/05/20 Admit Problem/Dx: Admission Diagnosis/Problem Admission Diagnosis/Problem Diabetic ketoacidosis - History of Present Illness Initial Comments - Free Text/Narative: 25-year-old male with history of type 1 diabetes with multiple admissions for DKA in the past including a severe episode last year requiring intubation presents to the emergency department with a 2 day history of vomiting. Patient states he has vomited approximately 6 times. His blood sugars yesterday morning were at approximately 230 and then he misplaced his glucometer. Patient is on insulin pump with a basal rate of 2 units/h and patient states he did give himself 5 units of insulin. He has been able to hold down fluids but has not had anything to eat for couple of days. Patient does complain of a dry, chronic cough secondary to his intubation last year. He denies any fever, chills, sore throat, shortness of breath, chest pain, abdominal pain, change in bowel habits, urinary frequency or dysuria, or any other significant illness. When patient presented to the emergency department he was tachycardic and orthostatic. He was found to be in DKA with initial glucose of 499, anion gap of 23.1, pH of 7.29, and ketones of 8.65. His UA showed 5-10 WBCs with only 0-5 epithelial cells. Urine drug screen was negative. He was given 2 L normal saline bolus and blood sugars decreased to 322. Patient was then transferred to ICU and repeat blood sugar was 219 at bedside. Patient had a total of 5.4 units of insulin per hour, 3.4 insulin drip and he was still getting 2 units/h from his insulin pump for total of 0.1 units/kg/h. - Related Data Allergies/Adverse Reactions: Allergies Allergy/AdvReac Type Severity Reaction Status Date / Time No Known Allergies Allergy Verified 05/05/20 02:12 Home Medications: Home Meds Insulin Pump/Infus. Set/Meter [Accu-Chek Combo System] 2 unit SQ ASDIRECTED 03/09/17 [History] Fluticasone Propionate [Flovent HFA 110 MCG] 2 puff INH TID #1 inhaler 05/20/19 [Rx] Past Medical History HEENT History: Reports: Allergic Rhinitis, Impaired Vision Cardiovascular History: Reports: Hypertension Respiratory History: Reports: SOB Other Respiratory History: sob since cpr on 04-28-19 Gastrointestinal History: Reports: Other (See Below) Other Gastrointestinal History: patient has had liver biopsy Genitourinary History: Reports: Diabetic Nephropathy Musculoskeletal History: Reports: Fracture (right 5th metacarpal Nov 2016) Other Musculoskeletal History: "boxer fracture" - fifth knuckle fracture November 2016 Neurological History: Reports: Head Trauma Psychiatric History: Reports: Depression Endocrine/Metabolic History: Reports: Diabetes, Type I Other Endocrine/Metabolic History: Diabetic ketoacidosis. Insulin pump. brittle diabetic - Infectious Disease History Infectious Disease History: Reports: None - Past Surgical History GI Surgical History: Reports: Other (See Below) (Liver bx) Male Surgical History: Reports: Circumcision Social & Family History - Family History Family Medical History: Noncontributory Cardiac: Reports: [place] - Tobacco Use Smoking Status *Q: Former Smoker Years of Tobacco use: 5 Packs/Tins Daily: 0.5 Month/Year Tobacco Last Used: Quit 2017 - Caffeine Use Caffeine Use: Reports: Coffee, Energy Drinks, Soda, Tea Other Caffeine Use: 1-2 cups - Recreational Drug Use Recreational Drug Use: Yes Drug Use in Last 12 Months: No Recreational Drug Type: Reports: Marijuana/Hashish (last smoked in 2018) - Living Situation & Occupation Living situation: Reports: Single, Other (with friends) Occupation: Employed ([employer]) H&P Review of Systems - Review of Systems: Review Of Systems: Comprehensive ROS is negative, except as noted in HPI. Exam - Exam Exam: See Below - Vital Signs Vital Signs: Last Vital Signs Temp 97.0 F 05/04/20 21:23 Pulse 118 H 05/04/20 21:23 Resp 18 05/04/20 21:23 BP 123/88 05/04/20 21:23 Pulse Ox 100 05/04/20 21:23 Orthostatic Blood Pressure [ 85/42 Standing] Orthostatic Blood Pressure [ 106/64 Supine] Weight: 56.699 kg - Exam General: Alert, Oriented, 4 HEENT: Conjunctiva Clear, EOMI, Hearing Intact. No: Mucosa Moist & [place] (Dry, mild) Neck: Supple, Trachea Midline, 2 Lungs: Clear to Auscultation, Normal Respiratory Effort Cardiovascular: Regular Rhythm, Tachycardia GI/Abdominal Exam: Normal Bowel Sounds, Soft, Non-Tender, No Organomegaly, No Distention, No Abnormal Bruit Back Exam: Normal Inspection Extremities: Normal Inspection, Non-Tender, No Pedal Edema, Normal Capillary Refill Skin: Warm, Dry, Intact Neurological: Cranial Nerves Intact Neuro Extensive - Mental Status: Alert, Oriented x3, Normal Mood/Affect, Normal Cognition Psychiatric: Alert, Normal Affect, Normal Mood - Patient Data Lab Results Last 24 hrs: Laboratory Results - last 24 hr 05/04/20 05/04/20 05/04/20 Range/Units 22:00 22:00 22:00 WBC 7.29 (4.23-9.07) K/mm3 RBC 5.35 (4.63-6.08) M/mm3 Hgb 14.3 D (13.7-17.5) gm/dl Hct 41.6 (40.1-51.0) % MCV 77.8 L (79.0-92.2) fl MCH 26.7 (25.7-32.2) pg MCHC 34.4 (32.2-35.5) g/dl RDW Std Deviation 38.5 (35.1-43.9) fL Plt Count 257 (163-337) K/mm3 MPV 10.4 (9.4-12.3) fl Neutrophils % (Manual) 73 H (40-60) % Band Neutrophils % 0 (0-10) % Lymphocytes % (Manual) 26 (20-40) % Atypical Lymphs % 0 % Monocytes % (Manual) 1 L (2-10) % Eosinophils % (Manual) 0 L (0.8-7.0) % Basophils % (Manual) 0 L (0.2-1.2) Platelet Estimate Adequate Poikilocytosis 1+ slight Microcytosis 1+ slight Ovalocytes 1+ slight RBC Morph Comment Not Reportable Puncture Site ABG pH (7.35-7.45) ABG pCO2 (35.0-45.0) mmHg ABG pO2 (80.0-100.0) mmHg ABG HCO3 (22.0-26.0) meq/L ABG O2 Saturation (96.0-97.0) % ABG Base Excess (-2-2.0) Sodium 129 L (136-145) mEq/L Potassium 5.1 D (3.5-5.1) mEq/L Chloride 95 L (98-107) mEq/L Carbon Dioxide 16 L (21-32) mEq/L Anion Gap 23.1 H (5-15) BUN 25 H (7-18) mg/dL Creatinine 1.2 (0.7-1.3) mg/dL Est Cr Clr Drug Dosing 76.78 mL/min Estimated GFR (MDRD) > 60 (>60) mL/min BUN/Creatinine Ratio 20.8 H (14-18) Glucose 499 H (74-106) mg/dL POC Glucose (70-105) mg/dL Lactic Acid (0.4-2.0) mmol/L Calcium 9.4 (8.5-10.1) mg/dL Magnesium 2.0 (1.8-2.4) mg/dl Total Bilirubin 0.8 (0.2-1.0) mg/dL AST 14 L (15-37) U/L ALT 23 (16-63) U/L Alkaline Phosphatase 107 (46-116) U/L Total Protein 8.0 (6.4-8.2) g/dl Albumin 4.0 (3.4-5.0) g/dl Globulin 4.0 gm/dL Albumin/Globulin Ratio 1.0 (1-2) Urine Color (Yellow) Urine Appearance (Clear) Urine pH (5.0-8.0) Ur Specific [place] (1.005-1.030) Urine Protein (Negative) Urine Glucose (UA) (Negative) Urine Ketones (Negative) Urine Occult Blood (Negative) Urine Nitrite (Negative) Urine Bilirubin (Negative) Urine Urobilinogen (0.2-1.0) Ur Leukocyte Esterase (Negative) Urine RBC (0-5) /hpf Urine WBC (0-5) /hpf Ur Squamous Epith Cells (0-5) /hpf Urine Bacteria (FEW) /hpf Urine Mucus (FEW) /hpf Urine Opiates Screen (PYIFVF=688) Ur Buprenorphine Scrn (CUTOFF=10) Ur Oxycodone Screen (LOA2HW=493) Urine Methadone Screen (FHZ5DG=498) Ur Propoxyphene Screen (CQAKMW=628) Ur Barbiturates Screen (XJSRTX=625) Ur Tricyclics Screen (WNUJPE=170) Ur Phencyclidine Scrn (CUTOFF=25) Ur Amphetamine Screen (QDAZSQ=690) U Methamphetamines Scrn (SWQXMO=927) U Benzodiazepines Scrn (CZGMIQ=691) U Cocaine Metab Screen (XYIOGF=287) U Marijuana (THC) Screen (CUTOFF=50) Ketones (0.0-0.3) mM COVID-19 (MACRINA) (NEGATIVE) 05/04/20 05/04/20 05/04/20 Range/Units 22:00 22:00 22:01 WBC (4.23-9.07) K/mm3 RBC (4.63-6.08) M/mm3 Hgb (13.7-17.5) gm/dl Hct (40.1-51.0) % MCV (79.0-92.2) fl MCH (25.7-32.2) pg MCHC (32.2-35.5) g/dl RDW Std Deviation (35.1-43.9) fL Plt Count (163-337) K/mm3 MPV (9.4-12.3) fl Neutrophils % (Manual) (40-60) % Band Neutrophils % (0-10) % Lymphocytes % (Manual) (20-40) % Atypical Lymphs % % Monocytes % (Manual) (2-10) % Eosinophils % (Manual) (0.8-7.0) % Basophils % (Manual) (0.2-1.2) Platelet Estimate Poikilocytosis Microcytosis Ovalocytes RBC Morph Comment Puncture Site Rt radial ABG pH 7.29 L (7.35-7.45) ABG pCO2 24.5 L (35.0-45.0) mmHg ABG pO2 115.0 H (80.0-100.0) mmHg ABG HCO3 11.4 L (22.0-26.0) meq/L ABG O2 Saturation 98.3 H (96.0-97.0) % ABG Base Excess -13.4 L (-2-2.0) Sodium (136-145) mEq/L Potassium (3.5-5.1) mEq/L Chloride (98-107) mEq/L Carbon Dioxide (21-32) mEq/L Anion Gap (5-15) BUN (7-18) mg/dL Creatinine (0.7-1.3) mg/dL Est Cr Clr Drug Dosing mL/min Estimated GFR (MDRD) (>60) mL/min BUN/Creatinine Ratio (14-18) Glucose (74-106) mg/dL POC Glucose (70-105) mg/dL Lactic Acid 2.0 (0.4-2.0) mmol/L Calcium (8.5-10.1) mg/dL Magnesium (1.8-2.4) mg/dl Total Bilirubin (0.2-1.0) mg/dL AST (15-37) U/L ALT (16-63) U/L Alkaline Phosphatase (46-116) U/L Total Protein (6.4-8.2) g/dl Albumin (3.4-5.0) g/dl Globulin gm/dL Albumin/Globulin Ratio (1-2) Urine Color (Yellow) Urine Appearance (Clear) Urine pH (5.0-8.0) Ur Specific [place] (1.005-1.030) Urine Protein (Negative) Urine Glucose (UA) (Negative) Urine Ketones (Negative) Urine Occult Blood (Negative) Urine Nitrite (Negative) Urine Bilirubin (Negative) Urine Urobilinogen (0.2-1.0) Ur Leukocyte Esterase (Negative) Urine RBC (0-5) /hpf Urine WBC (0-5) /hpf Ur Squamous Epith Cells (0-5) /hpf Urine Bacteria (FEW) /hpf Urine Mucus (FEW) /hpf Urine Opiates Screen (HHTOST=025) Ur Buprenorphine Scrn (CUTOFF=10) Ur Oxycodone Screen (OIN3BO=655) Urine Methadone Screen (VGL8ZH=041) Ur Propoxyphene Screen (QMWRAG=513) Ur Barbiturates Screen (KPUCCS=244) Ur Tricyclics Screen (LKUGPS=793) Ur Phencyclidine Scrn (CUTOFF=25) Ur Amphetamine Screen (WVURAK=039) U Methamphetamines Scrn (TBFVWG=653) U Benzodiazepines Scrn (SSKBTS=153) U Cocaine Metab Screen (EJCJIP=419) U Marijuana (THC) Screen (CUTOFF=50) Ketones 8.65 (0.0-0.3) mM COVID-19 (MACRINA) (NEGATIVE) 05/04/20 05/04/20 05/05/20 Range/Units 22:05 22:05 00:22 WBC (4.23-9.07) K/mm3 RBC (4.63-6.08) M/mm3 Hgb (13.7-17.5) gm/dl Hct (40.1-51.0) % MCV (79.0-92.2) fl MCH (25.7-32.2) pg MCHC (32.2-35.5) g/dl RDW Std Deviation (35.1-43.9) fL Plt Count (163-337) K/mm3 MPV (9.4-12.3) fl Neutrophils % (Manual) (40-60) % Band Neutrophils % (0-10) % Lymphocytes % (Manual) (20-40) % Atypical Lymphs % % Monocytes % (Manual) (2-10) % Eosinophils % (Manual) (0.8-7.0) % Basophils % (Manual) (0.2-1.2) Platelet Estimate Poikilocytosis Microcytosis Ovalocytes RBC Morph Comment Puncture Site ABG pH (7.35-7.45) ABG pCO2 (35.0-45.0) mmHg ABG pO2 (80.0-100.0) mmHg ABG HCO3 (22.0-26.0) meq/L ABG O2 Saturation (96.0-97.0) % ABG Base Excess (-2-2.0) Sodium (136-145) mEq/L Potassium (3.5-5.1) mEq/L Chloride (98-107) mEq/L Carbon Dioxide (21-32) mEq/L Anion Gap (5-15) BUN (7-18) mg/dL Creatinine (0.7-1.3) mg/dL Est Cr Clr Drug Dosing mL/min Estimated GFR (MDRD) (>60) mL/min BUN/Creatinine Ratio (14-18) Glucose (74-106) mg/dL POC Glucose 322 H (70-105) mg/dL Lactic Acid (0.4-2.0) mmol/L Calcium (8.5-10.1) mg/dL Magnesium (1.8-2.4) mg/dl Total Bilirubin (0.2-1.0) mg/dL AST (15-37) U/L ALT (16-63) U/L Alkaline Phosphatase (46-116) U/L Total Protein (6.4-8.2) g/dl Albumin (3.4-5.0) g/dl Globulin gm/dL Albumin/Globulin Ratio (1-2) Urine Color Yellow (Yellow) Urine Appearance Clear (Clear) Urine pH 5.5 (5.0-8.0) Ur Specific [place] 1.025 (1.005-1.030) Urine Protein Negative (Negative) Urine Glucose (UA) 2+ H (Negative) Urine Ketones 4+ H (Negative) Urine Occult Blood Negative (Negative) Urine Nitrite Negative (Negative) Urine Bilirubin Negative (Negative) Urine Urobilinogen 0.2 (0.2-1.0) Ur Leukocyte Esterase Negative (Negative) Urine RBC 0-5 (0-5) /hpf Urine WBC 5-10 H (0-5) /hpf Ur Squamous Epith Cells 0-5 (0-5) /hpf Urine Bacteria Few (FEW) /hpf Urine Mucus Few (FEW) /hpf Urine Opiates Screen Negative (SUKJVQ=720) Ur Buprenorphine Scrn Negative (CUTOFF=10) Ur Oxycodone Screen Negative (QPF3UY=408) Urine Methadone Screen Negative (BIA1SU=006) Ur Propoxyphene Screen Negative (EAYWPO=846) Ur Barbiturates Screen Negative (TEGHDO=923) Ur Tricyclics Screen Negative (GWBSGT=739) Ur Phencyclidine Scrn Negative (CUTOFF=25) Ur Amphetamine Screen Negative (YTVEFG=220) U Methamphetamines Scrn Negative (PAMHFJ=239) U Benzodiazepines Scrn Negative (MTKXVT=402) U Cocaine Metab Screen Negative (DZNIZK=479) U Marijuana (THC) Screen Negative (CUTOFF=50) Ketones (0.0-0.3) mM COVID-19 (MACRINA) (NEGATIVE) 05/05/20 05/05/20 Range/Units 00:50 01:39 WBC (4.23-9.07) K/mm3 RBC (4.63-6.08) M/mm3 Hgb (13.7-17.5) gm/dl Hct (40.1-51.0) % MCV (79.0-92.2) fl MCH (25.7-32.2) pg MCHC (32.2-35.5) g/dl RDW Std Deviation (35.1-43.9) fL Plt Count (163-337) K/mm3 MPV (9.4-12.3) fl Neutrophils % (Manual) (40-60) % Band Neutrophils % (0-10) % Lymphocytes % (Manual) (20-40) % Atypical Lymphs % % Monocytes % (Manual) (2-10) % Eosinophils % (Manual) (0.8-7.0) % Basophils % (Manual) (0.2-1.2) Platelet Estimate Poikilocytosis Microcytosis Ovalocytes RBC Morph Comment Puncture Site ABG pH (7.35-7.45) ABG pCO2 (35.0-45.0) mmHg ABG pO2 (80.0-100.0) mmHg ABG HCO3 (22.0-26.0) meq/L ABG O2 Saturation (96.0-97.0) % ABG Base Excess (-2-2.0) Sodium (136-145) mEq/L Potassium (3.5-5.1) mEq/L Chloride (98-107) mEq/L Carbon Dioxide (21-32) mEq/L Anion Gap (5-15) BUN (7-18) mg/dL Creatinine (0.7-1.3) mg/dL Est Cr Clr Drug Dosing mL/min Estimated GFR (MDRD) (>60) mL/min BUN/Creatinine Ratio (14-18) Glucose (74-106) mg/dL POC Glucose 219 H (70-105) mg/dL Lactic Acid (0.4-2.0) mmol/L Calcium (8.5-10.1) mg/dL Magnesium (1.8-2.4) mg/dl Total Bilirubin (0.2-1.0) mg/dL AST (15-37) U/L ALT (16-63) U/L Alkaline Phosphatase (46-116) U/L Total Protein (6.4-8.2) g/dl Albumin (3.4-5.0) g/dl Globulin gm/dL Albumin/Globulin Ratio (1-2) Urine Color (Yellow) Urine Appearance (Clear) Urine pH (5.0-8.0) Ur Specific [place] (1.005-1.030) Urine Protein (Negative) Urine Glucose (UA) (Negative) Urine Ketones (Negative) Urine Occult Blood (Negative) Urine Nitrite (Negative) Urine Bilirubin (Negative) Urine Urobilinogen (0.2-1.0) Ur Leukocyte Esterase (Negative) Urine RBC (0-5) /hpf Urine WBC (0-5) /hpf Ur Squamous Epith Cells (0-5) /hpf Urine Bacteria (FEW) /hpf Urine Mucus (FEW) /hpf Urine Opiates Screen (LDVSDD=728) Ur Buprenorphine Scrn (CUTOFF=10) Ur Oxycodone Screen (VFQ9ZH=601) Urine Methadone Screen (LXU5WJ=102) Ur Propoxyphene Screen (DEYEUG=108) Ur Barbiturates Screen (GUABKP=300) Ur Tricyclics Screen (BCODLX=042) Ur Phencyclidine Scrn (CUTOFF=25) Ur Amphetamine Screen (MTRYQI=531) U Methamphetamines Scrn (KFMODU=475) U Benzodiazepines Scrn (PBDSGU=235) U Cocaine Metab Screen (XOSRWU=871) U Marijuana (THC) Screen (CUTOFF=50) Ketones (0.0-0.3) mM COVID-19 (MACRINA) Negative (NEGATIVE) Result Diagrams: 05/04/20 22:00 05/04/20 22:00 Imaging Impressions Last 24 hrs: Chest x-ray: Nothing acute EKG INTERPRETATION EKG Date: 05/04/20 Rhythm: NSR (Sinus tachycardia) Rate (Beats/Min): 105 [place]: Normal P-Wave: Present QRS: Normal ST-T: Normal QT: Normal Sepsis Event Note - Evaluation Sepsis Screening Result: No Definite Risk - Focused Exam Vital Signs: Vital Signs Temp Pulse Resp BP Pulse Ox 05/04/20 21:23 97.0 F 118 H 18 123/88 100 Problem List Initiated/Reviewed/Updated: Yes Orders Last 24hrs: Active Orders 24 hr Category Date Time Status Admission Status [Patient Status] [ADT] Routine ADT 05/05/20 00:45 Active Blood Glucose Check, Bedside [RC] Q1H Care 05/05/20 01:51 Ordered EKG Documentation Completion [RC] STAT Care 05/04/20 22:02 Active Orthostatic Vital Signs [RC] STAT Care 05/04/20 22:02 Active Oxygen Therapy [RC] PRN Care 05/05/20 02:04 Ordered Up With Assistance [RC] ASDIRECTED Care 05/05/20 02:04 Ordered VTE/DVT Education [RC] PER UNIT ROUTINE Care 05/05/20 02:04 Ordered Vital Signs [RC] Q4H Care 05/05/20 02:04 Ordered Nothing per Oral Now Diet [DIET] Diet 05/05/20 Breakfast Ordered Chest 1V Frontal [CR] Stat Exams 05/04/20 22:01 Stop Req Chest 2V [CR] Stat Exams 05/04/20 22:18 Taken BASIC METABOLIC PANEL,BMP [CHEM] Q4H Lab 05/05/20 06:00 Ordered BASIC METABOLIC PANEL,BMP [CHEM] Q4H Lab 05/05/20 10:00 Ordered BASIC METABOLIC PANEL,BMP [CHEM] Q4H Lab 05/05/20 14:00 Ordered BASIC METABOLIC PANEL,BMP [CHEM] Q4H Lab 05/05/20 18:00 Ordered BASIC METABOLIC PANEL,BMP [CHEM] Stat Lab 05/05/20 06:00 Ordered CBC WITH AUTO DIFF [HEME] Routine Lab 05/05/20 06:00 Ordered CULTURE BLOOD [BC] Stat Lab 05/04/20 23:05 Received CULTURE BLOOD [BC] Stat Lab 05/04/20 23:12 Received CULTURE URINE [RM] Routine Lab 05/05/20 02:02 Ordered GLYCOSYLATED HEMOGLOBIN,HGBA1C [CHEM] Routine Lab 05/05/20 06:00 Ordered KETONES,BLOOD [CHEM] Stat Lab 05/05/20 01:54 Ordered MAGNESIUM [CHEM] Q4 Lab 05/05/20 06:00 Ordered MAGNESIUM [CHEM] Q4 Lab 05/05/20 10:00 Ordered MAGNESIUM [CHEM] Q4 Lab 05/05/20 14:00 Ordered MAGNESIUM [CHEM] Q4H Lab 05/05/20 18:00 Ordered MAGNESIUM [CHEM] Stat Lab 05/05/20 01:52 Ordered PH,VENOUS [BG] Q4 Lab 05/05/20 06:00 Ordered PH,VENOUS [BG] Q4H Lab 05/05/20 10:00 Ordered PH,VENOUS [BG] Q4H Lab 05/05/20 14:00 Ordered PH,VENOUS [BG] Q4H Lab 05/05/20 18:00 Ordered PH,VENOUS [BG] Stat Lab 05/05/20 01:52 Ordered PHOSPHORUS [CHEM] Q4H Lab 05/05/20 06:00 Ordered PHOSPHORUS [CHEM] Q4H Lab 05/05/20 10:00 Ordered PHOSPHORUS [CHEM] Q4 Lab 05/05/20 14:00 Ordered PHOSPHORUS [CHEM] Q4H Lab 05/05/20 18:00 Ordered PHOSPHORUS [CHEM] Stat Lab 05/05/20 01:52 Ordered Dextrose 5%-0.9% NaCl with KCl [D5 NS with 20 mEq KCl] Med 05/05/20 01:45 Active 1,000 ml IV ASDIRECTED Insulin Regular, Human [HumuLIN R] 100 unit Med 05/04/20 23:30 Active Sodium Chloride 0.9% [Normal Saline] 99 ml IV TITRATE Ondansetron [Zofran] Med 05/05/20 02:04 Ordered 4 mg IV Q4H PRN cefTRIAXone [Rocephin] 1 gm Med 05/05/20 02:15 Ordered Sodium Chloride 0.9% [Normal Saline] 100 ml IV Q24H Blood Culture x2 Reflex Set [OM.PC] Stat Oth 05/04/20 22:03 Ordered Resuscitation Status Routine Resus Stat 05/05/20 02:04 Ordered Medication Orders Insulin Human Regular 100 unit (/ Sodium Chloride) 100 mls @ 3.402 mls/hr IV TITRATE PRINCE; Protocol Last Admin: 05/05/20 00:22 Dose: 0.06 units/kg/hr, 3.402 mls/hr Documented by: MEGAN Cosigned by: AG Potassium Chloride/Dextrose/Sod Cl (D5 Ns With 20 Meq Kcl) 1,000 mls @ 150 mls/hr IV ASDIRECTED PRINCE Last Admin: 05/05/20 01:54 Dose: 150 mls/hr Documented by: MARIA ELENA Ceftriaxone Sodium 1 gm/ (Sodium Chloride) 100 mls @ 200 mls/hr IV Q24H PRINCE Ondansetron HCl (Zofran) 4 mg IV Q4H PRN PRN Reason: Nausea/Vomiting Assessment/Plan Comment:: Assessment * Diabetic ketoacidosis in a type I diabetic * Secondary to vomiting old likely some noncompliant since he was unable to follow his blood sugars after misplacing his glucometer. * Initial ketones 8.65, glucose 499, pH 7.29, bicarb 11.4, anion gap 23.1 * Received an initial 2 L normal saline bolus * Initial insulin drip at 0.1 units/kg/h * Good glucose response with a decrease in blood glucose from 499 to 322 to 219 over 4 hours * Possible UTI * 5-10 WBCs on clean-catch UA * Blood cultures done in the emergency department * Patient denies any urinary symptoms * He is monogamous with his girlfriend * Anion gap metabolic acidosis secondary to DKA Plan * Admit to ICU * DKA protocol * Change IV fluids to D5 normal saline with 20 mEq of KCl per liter at 150 mL/h * Decrease IV insulin to 3.4 units/h; 0.6 units/kg/h * Titrate IV insulin to keep blood sugars between 150 and 200 * Fingerstick blood sugar every 1 hour until out of DKA * Follow BMP, magnesium, phosphorus, serum ketones, and venous pH every 4 hours * Urine culture * Rocephin 1 g every 24 hours until urine and blood cultures are resulted * Hemoglobin A1c and CBC in the morning * CODE STATUS full code * Disposition admit to ICU for rehydration and treatment of DKA - Mortality Measure Prognosis:: Good
[2020-05-05] MEDS ORDERED: Famotidine 20 MG/2 ML SDV IVPUSH ONE (02:39)
[2020-05-05] MEDS ORDERED: Magnesium Sulfate/Water 4 GM in Premix Bag 1 BAG IV ONE (02:48)
[2020-05-05] MEDS: cefTRIAXone 1 GM in Sodium Chloride 0.9% 100 ML IV SCH (03:14)
[2020-05-05] MEDS ORDERED: D5 1/2 NS w/ 20 mEq/L KCl 1,000 ML IV SCH (07:00)
[2020-05-05 07:10] LABS: HEMOGLOBIN A1C 11.5 % (4.50-6.20)
--- NOTE | 2020-05-05 09:05 | PCM.SN.2 ---
- Problem List & Annotations (1) Diabetic ketoacidosis SNOMED Code(s): 881616004, 497737822 Code(s): E13.10 - OTH DIABETES MELLITUS WITH KETOACIDOSIS WITHOUT COMA Status: Acute Priority: High Current Visit: Yes Qualifiers: Diabetes mellitus type: type 1 Diabetes mellitus complication detail: without coma Qualified Code(s): E10.10 - Type 1 diabetes mellitus with ketoacidosis without coma (2) High anion gap metabolic acidosis SNOMED Code(s): 84897859 Code(s): E87.2 - ACIDOSIS Status: Acute Current Visit: Yes (3) Volume depletion SNOMED Code(s): 200412127 Code(s): E86.9 - VOLUME DEPLETION, UNSPECIFIED Status: Acute Current Visit: Yes (4) Acute kidney injury SNOMED Code(s): 81921507, 00042317 Code(s): N17.9 - ACUTE KIDNEY FAILURE, UNSPECIFIED Status: Acute Current Visit: No (5) Hypomagnesemia SNOMED Code(s): 982516203 Code(s): E83.42 - HYPOMAGNESEMIA Status: Acute Priority: High Current Visit: No (6) Hyponatremia SNOMED Code(s): 42122885 Code(s): E87.1 - HYPO-OSMOLALITY AND HYPONATREMIA Status: Acute Current Visit: No (7) Tobacco abuse disorder SNOMED Code(s): 913447887 Code(s): Z72.0 - TOBACCO USE Status: Chronic Priority: Medium Current V isit: No Annotation/Comment:: nicotine patch at dc (8) Insulin pump in place SNOMED Code(s): 793910945 Code(s): Z96.41 - PRESENCE OF INSULIN PUMP (EXTERNAL) (INTERNAL) Status: Acute Current Visit: Yes (9) Type I diabetes mellitus SNOMED Code(s): 61658397 Code(s): E10.9 - TYPE 1 DIABETES MELLITUS WITHOUT COMPLICATIONS Status: Acute Current Visit: Yes - Problem List Review Problem List Initiated/Reviewed/Updated: Yes - Assessment Assessment:: -Lab result update -pH up from 7.29 to 7.34 -Na up from 129 to 138 -HbA1c 11.5% -Mg trend 2-->1.6>2.4 -UDS negative -Ketones down from 8.65 to 2.39 -Anion gap down from 23 to 14 -Glucose trend: [phone] -Insulin pump setting at home -Basal rate: 2u/hr -Carb ratio: 6 -Bolus increment: 0.05 -Drip was on 3u and then 2u - Plan Plan:: -Discontinue insulin drip -Hold IVF -Restart home insulin pump -Start diet -Bolus prior to meal at 50% and then return to prior dose
--- NOTE | 2020-05-05 10:27 | CR ---
Chest: 2 views of the chest were obtained. Comparison: Prior chest x-ray of 05/20/19. Heart size and mediastinum are normal. Lung markings are slightly increased within both lung bases questionably more prominent than on prior study. Difficult to exclude mild bronchitis. Lungs otherwise are clear with no evidence of pneumonia or other consolidative process. Bony structures appear within normal limits for the patient's age. Impression: 1. Questionably increased lung markings within both lung bases from prior study. Difficult to exclude mild bronchitis. 2. 2 view chest x-ray is otherwise unremarkable. Diagnostic code #3 Agree with preliminary report issued by [facility] - additional note as noted above ([facility] preliminary report dictated on default valueCentral Daylight Time), code #2 Study was dictated in MDT
[2020-05-06] MEDS: cefTRIAXone 1 GM in Sodium Chloride 0.9% 100 ML IV SCH (02:30)
[2020-05-06 08:54] VITALS: BP 118/89; PULSE 79
[2020-05-06] MEDS ORDERED: Magnesium Oxide 400 MG Tab PO ONE (11:14)
--- NOTE | 2020-05-06 11:18 | PCM.DCSUM1 ---
Discharge Summary - Hospital Course HPI Initial Comments: 25-year-old male with history of type 1 diabetes with multiple admissions for DKA in the past including a severe episode last year requiring intubation presents to the emergency department with a 2 day history of vomiting. Patient states he has vomited approximately 6 times. His blood sugars yesterday morning were at approximately 230 and then he misplaced his glucometer. Patient is on insulin pump with a basal rate of 2 units/h and patient states he did give himself 5 units of insulin. He has been able to hold down fluids but has not had anything to eat for couple of days. Patient does complain of a dry, chronic cough secondary to his intubation last year. He denies any fever, chills, sore throat, shortness of breath, chest pain, abdominal pain, change in bowel habits, urinary frequency or dysuria, or any other significant illness. When patient presented to the emergency department he was tachycardic and orthostatic. He was found to be in DKA with initial glucose of 499, anion gap of 23.1, pH of 7.29, and ketones of 8.65. His UA showed 5-10 WBCs with only 0-5 epithelial cells. Urine drug screen was negative. He was given 2 L normal saline bolus and blood sugars decreased to 322. Patient was then transferred to ICU and repeat blood sugar was 219 at bedside. Patient had a total of 5.4 units of insulin per hour, 3.4 insulin drip and he was still getting 2 units/h from his insulin pump for total of 0.1 units/kg/h. Diagnosis: Stroke: No - Discharge Data Discharge Date: 05/06/20 Discharge Disposition: Home, Self-Care 01 Condition: Good - Referral to Home Health Primary Care Physician: Faina Frost NP - Discharge Diagnosis/Problem(s) (1) Diabetic ketoacidosis SNOMED Code(s): 001602157, 097708549 ICD Code: E13.10 - OTH DIABETES MELLITUS WITH KETOACIDOSIS WITHOUT COMA Status: Resolved Priority: High Current Visit: Yes Qualifiers: Diabetes mellitus type: type 1 Diabetes mellitus complication detail: without coma Qualified Code(s): E10.10 - Type 1 diabetes mellitus with ketoacidosis without coma (2) High anion gap metabolic acidosis SNOMED Code(s): 39358505 ICD Code: E87.2 - ACIDOSIS Status: Resolved Current Visit: Yes (3) Volume depletion SNOMED Code(s): 813594389 ICD Code: E86.9 - VOLUME DEPLETION, UNSPECIFIED Status: Resolved Current Visit: Yes (4) Acute kidney injury SNOMED Code(s): 05525458, 77182721 ICD Code: N17.9 - ACUTE KIDNEY FAILURE, UNSPECIFIED Status: Resolved Current Visit: No (5) Hypomagnesemia SNOMED Code(s): 887379025 ICD Code: E83.42 - HYPOMAGNESEMIA Status: Acute Priority: High Current Visit: No (6) Hyponatremia SNOMED Code(s): 48936841 ICD Code: E87.1 - HYPO-OSMOLALITY AND HYPONATREMIA Status: Resolved Current Visit: No (7) Tobacco abuse disorder SNOMED Code(s): 803508941 ICD Code: Z72.0 - TOBACCO USE Status: Chronic Priority: Medium Current Visit: No Problem Details: nicotine patch at dc (8) Insulin pump in place SNOMED Code(s): 890622735 ICD Code: Z96.41 - PRESENCE OF INSULIN PUMP (EXTERNAL) (INTERNAL) Status: Acute Current Visit: Yes (9) Type I diabetes mellitus SNOMED Code(s): 29323716 ICD Code: E10.9 - TYPE 1 DIABETES MELLITUS WITHOUT COMPLICATIONS Status: Chronic Current Visit: Yes - Patient Summary/Data Hospital Course: Admission assessment Diabetic ketoacidosis in a type I diabetic - Secondary to vomiting old likely some noncompliant since he was unable to follow his blood sugars after misplacing his glucometer. - Initial ketones 8.65, glucose 499, pH 7.29, bicarb 11.4, anion gap 23.1 - Received an initial 2 L normal saline bolus - Initial insulin drip at 0.1 units/kg/h - Good glucose response with a decrease in blood glucose from 499 to 322 to 219 over 4 hours Possible UTI - 5-10 WBCs on clean-catch UA - Blood cultures done in the emergency department - Patient denies any urinary symptoms - He is monogamous with his girlfriend Anion gap metabolic acidosis secondary to DKA Plan Admit to ICU DKA protocol Change IV fluids to D5 normal saline with 20 mEq of KCl per liter at 150 mL/h Decrease IV insulin to 3.4 units/h; 0.6 units/kg/h Titrate IV insulin to keep blood sugars between 150 and 200 Fingerstick blood sugar every 1 hour until out of DKA Follow BMP, magnesium, phosphorus, serum ketones, and venous pH every 4 hours Urine culture Rocephin 1 g every 24 hours until urine and blood cultures are resulted Hemoglobin A1c and CBC in the morning 05/05/2020 day update -Lab result update -pH up from 7.29 to 7.34 -Na up from 129 to 138 -HbA1c 11.5% -Mg trend 2-->1.6>2.4 -UDS negative -Ketones down from 8.65 to 2.39 -Anion gap down from 23 to 14 -Glucose trend: [phone] -Insulin pump setting at home -Basal rate: 2u/hr -Carb ratio: 6 -Bolus increment: 0.05 -Drip was on 3u and then 2u Plan: -Discontinue insulin drip -Hold IVF -Restart home insulin pump -Start diet -Bolus prior to meal at 50% and then return to prior dose 05/06/2020 Lab updates - Na up from 134 to 137 - CO2 up from 19 to 29 - Mg down from2 to 1.7 VS stable Glucose trend after insulin drip was discontinued: 105-169 Tolerating diet with no new complaints OK to be discharged home to follow up with PCP within 1 week - Patient Instructions Diet: Usual Diet as Tolerated Activity: As Tolerated - Discharge Plan *PRESCRIPTION DRUG MONITORING PROGRAM REVIEWED*: Not Applicable *COPY OF PRESCRIPTION DRUG MONITORING REPORT IN PATIENT [place]: Not Applicable Home Medications: Home Meds Insulin Pump/Infus. Set/Meter [Accu-Chek Combo System] 2 unit SQ ASDIRECTED 03/09/17 [History] Fluticasone Propionate [Flovent HFA 110 MCG] 2 puff INH TID #1 inhaler 05/20/19 [Rx] Oxygen Therapy Mode: Room Air Forms: ED Department Discharge Referrals: Faina Frost NP [Primary Care Provider] - PCP,Not In Area [Ordering Only Provider] - - Discharge Summary/Plan Comment DC Time >30 min.: No - General Info Date of Service: 05/06/20 Subjective Update: Feeling OK Slept well Tolerating diet No complaints - Patient Data Vitals - Most Recent: Last Vital Signs Temp 97.9 F 05/06/20 08:00 Pulse 79 05/06/20 08:00 Resp 14 05/06/20 08:00 BP 118/89 05/06/20 08:00 Pulse Ox 98 05/06/20 08:00 Weight - Most Recent: 57.153 kg - Exam General: Reports: Alert, Oriented, Cooperative, No Acute Distress HEENT: Reports: Pupils Equal, Pupils Reactive, EOMI, Mucous Membr. Moist/[place] Neck: Reports: Supple, Trachea Midline, No JVD, No Thyromegaly, +2 Carotid Pulse wo Bruit. Denies: Lymphadenopathy Lungs: Reports: Clear to Auscultation, Normal Respiratory Effort. Denies: C rackles, Rales, Rhonchi, Rub, Stridor, Wheezing Cardiovascular: Reports: Regular Rate, Regular Rhythm. Denies: Murmurs, Gallops, Rubs GI/Abdominal Exam: Normal Bowel Sounds, Soft, Non-Tender. No: Distended, Guarding, Rigid, Rebound Extremities: Normal Inspection, Normal Range of Motion, Non-Tender, No Pedal Edema, Normal Capillary Refill Skin: Reports: Warm, Dry, Intact Neurological: Reports: No New Focal Deficit Psy/Mental Status: Reports: Alert, Normal Affect, Normal Mood
== END 2020-05-06 12:03 | disposition home or self-care (01) | DRG 638 ==
LOC: JD.ED 21:07 → JD.ICU 05-05 00:45
PROVIDERS: ADMIT Family Medicine; ATTEND Family Medicine
DX: E10.10 Type 1 diabetes mellitus with ketoacidosis without coma (principal); N17.9 Acute kidney failure, unspecified; J31.0 Chronic rhinitis; Z79.4 Long term (current) use of insulin; Z79.899 Other long term (current) drug therapy; E87.1 Hypo-osmolality and hyponatremia; N39.0 Urinary tract infection, site not specified; E86.9 Volume depletion, unspecified; E83.42 Hypomagnesemia; Z96.41 Presence of insulin pump (external) (internal); H54.7 Unspecified visual loss; J30.9 Allergic rhinitis, unspecified; I10 Essential (primary) hypertension; E10.21 Type 1 diabetes mellitus with diabetic nephropathy; F32.9 Major depressive disorder, single episode, unspecified; Z87.891 Personal history of nicotine dependence; Z20.828 Contact with and (suspected) exposure to other viral communicable diseases
CPT/HCPCS: 36415; 36600; 71046; 80053; 80306; 81001; 82009; 82803; 82962; 83605; 83735; 85007; 85027; 87040 ×2; 87086; 93005; J1815; J7030 ×2; J7050; 80048; 82800; 83036; 84100; 85025; 93010; 96360; 99285; 99285-25; A9270-GY; J0696; J3475; J3480; J3490; U0002

== ENCOUNTER 2020-07-13 21:54 | Emergency (ER) | payer MEDICAID ==
[2020-07-13 22:04] VITALS: BP 137/98; PULSE 101
--- NOTE | 2020-07-13 22:23 | EDM.PDOC ---
ED HPI GENERAL MEDICAL PROBLEM - General Chief Complaint: Upper Extremity Injury/Pain Stated Complaint: INJURED RIGHT HAND Time Seen by Provider: 07/13/20 22:17 Source of Information: Reports: Patient, RN Notes Reviewed History Limitations: Reports: No Limitations - History of Present Illness INITIAL COMMENTS - FREE TEXT/NARRATIVE: Patient is a 25-year-old male presenting to the emergency department with complaints of pain to his right hand, specifically the knuckles of the second third and fourth phalanges. Patient states that he punched a wall earlier in the evening and has been having pain since that time. He states he does have a history of boxer fractures in this hand. Right Hand Pain Score (Numeric/FACES): 6 - Related Data Allergies Allergy/AdvReac Type Severity Reaction Status Date / Time No Known Allergies Allergy Verified 07/13/20 22:08 Home Meds: Home Meds Insulin Pump/Infus. Set/Meter [Accu-Chek Combo System] 2 unit SQ ASDIRECTED 03/09/17 [History] Fluticasone Propionate [Flovent HFA 110 MCG] 2 puff INH TID #1 inhaler 05/20/19 [Rx] Past Medical History HEENT History: Reports: Allergic Rhinitis, Impaired Vision Cardiovascular History: Reports: Hypertension Respiratory History: Reports: SOB Other Respiratory History: sob since cpr on 04-28-19 Gastrointestinal History: Reports: Other (See Below) Other Gastrointestinal History: patient has had liver biopsy Genitourinary History: Reports: Diabetic Nephropathy Musculoskeletal History: Reports: Fracture Other Musculoskeletal History: "boxer fracture" - fifth knuckle fracture November 2016 Neurological History: Reports: Head Trauma Psychiatric History: Reports: Depression Endocrine/Metabolic History: Reports: Diabetes, Type I Other Endocrine/Metabolic History: Diabetic ketoacidosis. Insulin pump. brittle diabetic - Infectious Disease History Infectious Disease History: Reports: None - Past Surgical History GI Surgical History: Reports: Other (See Below) Male Surgical History: Reports: Circumcision Social & Family History - Family History Family Medical History: Noncontributory Cardiac: Reports: [place] - Caffeine Use Caffeine Use: Reports: Coffee, Energy Drinks, Soda, Tea Other Caffeine Use: 1-2 cups - Recreational Drug Use Recreational Drug Use: No - Living Situation & Occupation Living situation: Reports: Single, Other (with friends) Occupation: Employed ([employer]) Review of Systems - Review of Systems Review Of Systems: Comprehensive ROS is negative, except as noted in HPI. ED EXAM, GENERAL - Physical Exam Exam: See Below General Appearance: Alert, WD/WN, No Apparent Distress Respiratory/Chest: No Respiratory Distress, Lungs Clear, Normal Breath Sounds, No Accessory Muscle Use, Chest Non-Tender Cardiovascular: Normal Peripheral Pulses, Regular Rate, Rhythm, No Edema, No Gallop, No JVD, No Murmur, No Rub Extremities: Other (Tenderness to palpation over the MCP joints of the right hand. No obvious swelling or deformity. No tenderness to palpation over the proximal carpals.) Neurological: Alert, Oriented, CN II-XII Intact, Normal Cognition, Normal Gait, Normal Reflexes, No Motor/Sensory Deficits Psychiatric: Normal Affect, Normal Mood Skin Exam: Warm, Dry, Intact, Normal Color, No Rash Course - Vital Signs Last Recorded V/S: Last Vital Signs Temp 98.2 F 07/13/20 22:03 Pulse 101 H 07/13/20 22:03 Resp 18 07/13/20 22:03 BP 137/98 H 07/13/20 22:03 Pulse Ox 100 07/13/20 22:03 - Orders/Labs/Meds Orders: Active Orders 24 hr Category Date Time Status Hand Comp Min 3V Rt [CR] Stat Exams 07/13/20 22:17 Taken - Re-Assessments/Exams Free Text/Narrative Re-Assessment/Exam: 07/13/20 22:34 Xray of the right hand reviewed by myself and Dr. Alexander. No acute fractures w ere visualized. Discharge instructions as documented. 07/13/20 22:48 Radiologist read of the hand x-ray shows a fourth metacarpal head fracture. X- ray reviewed by myself and Dr. Alexander once again and no obvious fractures were found. However since the radiologist identified a fracture, the patient has been placed in a short arm Ortho-Glass splint. CMS intact distal to splint after application. Recommend follow-up with Dr. Silva in 1 week. Discharge instructions as documented. Departure - Departure Time of Disposition: 22:35 Disposition: Home, Self-Care 01 Condition: Good Clinical Impression: Fracture of metacarpal bone Qualifiers: Encounter type: initial encounter Metacarpal bone: fourth Fracture type: closed Metacarpal location: other portion of metacarpal Fracture alignment: nondisplaced Laterality: right Qualified Code(s): S62.394A - Other fracture of fourth metacarpal bone, right hand, initial encounter for closed fracture - Discharge Information *PRESCRIPTION DRUG MONITORING PROGRAM REVIEWED*: No *COPY OF PRESCRIPTION DRUG MONITORING REPORT IN PATIENT [place]: No Instructions: Metacarpal Fracture Referrals: Faina Frost NP [Primary Care Provider] - Pablo Silva MD [Physician] - Forms: ED Department Discharge, ED Return to Work/School Form Additional Instructions: You were seen in the emergency department today for pain to your right hand after punching a wall. X-rays were completed and read by the radiologist as a fracture to the fourth metacarpal head. You have been placed in a splint. Recommend ice and elevation intermittently for the next few days. You may use [id number] Tylenol or ibuprofen as needed for pain. Follow-up with Dr. Silva, orthopedist in 1 week. Return to the ER as needed. Sepsis Event Note (ED) - Evaluation Sepsis Screening Result: No Definite Risk - Focused Exam Vital Signs: Vital Signs Temp Pulse Resp BP Pulse Ox 07/13/20 22:03 98.2 F 101 H 18 137/98 H 100 - My Orders Last 24 Hours: My Active Orders 07/13/20 22:17 Hand Comp Min 3V Rt [CR] Stat - Assessment/Plan Last 24 Hours: My Active Orders 07/13/20 22:17 Hand Comp Min 3V Rt [CR] Stat
== END 2020-07-13 22:57 | disposition home or self-care (01) ==
LOC: JD.ED 21:54
DX: S62.394A Other fracture of fourth metacarpal bone, right hand, initial encounter for closed fracture (principal); I10 Essential (primary) hypertension; E10.21 Type 1 diabetes mellitus with diabetic nephropathy; E10.10 Type 1 diabetes mellitus with ketoacidosis without coma; W22.01XA Walked into wall, initial encounter
CPT/HCPCS: 29125; 73130-RT; 99282; 99283-25

== ENCOUNTER 2020-07-31 16:39 | Emergency (ER) | payer MEDICAID ==
[2020-07-31 17:04] VITALS: BP 101/62; PULSE 117
[2020-07-31] MEDS ORDERED: Sodium Chloride 0.9% 1,000 ML IV STA ×2 (17:06→18:23)
--- NOTE | 2020-07-31 19:07 | EDM.PDOC ---
<Curtis Mathis - Last Filed: 08/01/20 14:01> ED HPI GENERAL MEDICAL PROBLEM - General Chief Complaint: Diabetic Complaint Stated Complaint: DIABETIES PROBLEMS Time Seen by Provider: 07/31/20 17:05 - Related Data Allergies Allergy/AdvReac Type Severity Reaction Status Date / Time No Known Allergies Allergy Verified 07/31/20 17:04 Home Meds: Home Meds Insulin Pump/Infus. Set/Meter [Accu-Chek Combo System] 2 unit SQ ASDIRECTED 03/09/17 [History] Fluticasone Propionate [Flovent HFA 110 MCG] 2 puff INH TID #1 inhaler 05/20/19 [Rx] Course - Re-Assessments/Exams Free Text/Narrative Re-Assessment/Exam: 08/01/20 06:50 patient's blood sugar has come down nicely overnight. Plan repeat CMP and serum ketones this morning. Serum magnesium as well. 08/01/20 07:47 patient is currently complaining of some nausea. We will give him Reglan 7.5 mg IV. CMP and serum magnesium are pending breath smells strongly of ketones. 08/01/20 08:11 Chemistry this morning reveals a sodium that has returned to normal at 135. It was 119 yesterday potassium is 4.0 chloride 100 bicarb is 20. Anion gap remains mildly elevated at 19.0 BUN is 22 with a creatinine of 1.0. GFR greater than 60. Glucose is 261. Calcium is 8.1. Magnesium is 1.5 still slightly low. Liver function is normal. Serum ketones are pending. Plan he will be given a another liter of Ringer's lactate in an effort to lower his anion gap. Will be given 10 units of Humalog insulin subcutaneously. He reports that his insulin will be coming in today for his insulin pump which is at home. 08/01/20 08:58 serum ketones are higher now than they were last night at 3.4. I can smell ketones on his breath is as I walked in the room this morning. He is going to require at least another 2 to 3 L of IV fluids to correct this. 08/01/20 09:58 did eat a little bit of breakfast and his blood sugar went up to 353. Will be given another 10 units of glargine insulin subcu. States his ketones are still going up patient is having signs symptoms diabetic ketoacidosis. 08/01/20 12:59 nurses mentioned that his COVID-19 screen did come back positive. This may be another reason for him to have developed diabetic ketoacidosis although the primary reason is that he ran out of insulin for his insulin pump which should be available later today. 08/01/20 14:01 Labs now reveal a normal sodium at 137 potassium is 3.7 chloride 105 with a bicarb of 26. Anion gap is now down to 9.7 from 25.2. BUN is 17 with a creatinine of 1.0 and a GFR greater than 60. Glucose is down to 107. Calcium is 8.2 liver function is normal total protein remains low at 5.4 with an albumin fraction of 2.5 COVID-19 screen is positive. It is believed that he is probably symptomatic with COVID-19 illness for 3 days and therefore needs to be self quarantine for another week as it is considered 10 days before you are no longer shedding the virus. 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 He will go to his grandmother's house right after he leaves here where he can get his insulin pump and his insulin is available to [facility] right away. He is well versed in how to control his blood sugars it says that he is a very bit brittle diabetic and on this occasion ran out of insulin which precipitated diabetic ketoacidosis state. It could have also been precipitated by COVID-19 illness. Departure - Departure Time of Disposition: 14:07 Disposition: Home, Self-Care 01 Condition: Fair Clinical Impression: COVID-19 determined by clinical diagnostic criteria, Hypomagnesemia syndrome Diabetic ketoacidosis associated with type 1 diabetes mellitus Qualifiers: Diabetes mellitus complication detail: without coma Qualified Code(s): E10.10 - Type 1 diabetes mellitus with ketoacidosis without coma - Discharge Information *PRESCRIPTION DRUG MONITORING PROGRAM REVIEWED*: Not Applicable *COPY OF PRESCRIPTION DRUG MONITORING REPORT IN PATIENT [place]: Not Applicable Instructions: COVID-19 Frequently Asked Questions, COVID-19, Type 1 Diabetes Mellitus, Diagnosis, Adult, COVID-19: How to Protect Yourself and Others - CDC, Prevent the Spread of COVID-19 if You Are Sick - [facility] Referrals: PCP,Not In Area [Primary Care Provider] - Forms: ED Department Discharge, ED Return to Work/School Form Additional Instructions: Evaluation in the emergency room starting yesterday July 31 due to diabetic ketoacidosis state. This is happened to you on many occasions in the past and you are considered a brittle type I diabetic. This time it appears you ran out of insulin for your insulin pump which helped precipitate diabetic ketoacidosis state. Lab testing in the ED also identified you are COVID-19 positive and likely have been ill for approximately 3 days. We therefore suggest that you self quarantine for another week as it is considered unlikely that to be able to shed the virus after 10 days of illness. A note will be written to that effect. Of course is important to start back on your insulin pump as soon as possible. Resume regular diabetic diet and continue plenty of fluids. All of your electrolyte imbalances and fluid necessities were corrected through the ED over the last 24 hours. <Joelle Reyes - Last Filed: 08/01/20 17:17> ED HPI GENERAL MEDICAL PROBLEM - General Source of Information: Reports: Patient, RN Notes Reviewed History Limitations: Reports: No Limitations - History of Present Illness INITIAL COMMENTS - FREE TEXT/NARRATIVE: Patient is a 25-year-old male who is type I diabetic presenting to the ER with complaints of elevated blood sugars. States his insulin pump ran out of insulin today. Blood sugars at home were in the 300s. He states that he feels dry and short of breath and feel that he is likely in DKA. Patient has been seen in [facility] on numerous different occasions for DKA. He has been fairly well controlled with his insulin pump, however today ran out of insulin but does not know what time it was. He denies any abdominal pain, nausea, vomiting, or diarrhea. Past Medical History HEENT History: Reports: Allergic Rhinitis, Impaired Vision Cardiovascular History: Reports: Hypertension Respiratory History: Reports: SOB Other Respiratory History: sob since cpr on 04-28-19 Gastrointestinal History: Reports: Other (See Below) Other Gastrointestinal History: patient has had liver biopsy Genitourinary History: Reports: Diabetic Nephropathy Musculoskeletal History: Reports: Fracture Other Musculoskeletal History: "boxer fracture" - fifth knuckle fracture November 2016 Neurological History: Reports: Head Trauma Psychiatric History: Reports: Depression Endocrine/Metabolic History: Reports: Diabetes, Type I Other Endocrine/Metabolic History: Diabetic ketoacidosis. Insulin pump. brittle diabetic - Infectious Disease History Infectious Disease History: Reports: None - Past Surgical History GI Surgical History: Reports: Other (See Below) Male Surgical History: Reports: Circumcision Social & Family History - Family History Family Medical History: No Pertinent Family History Cardiac: Reports: [facility] - Tobacco Use Tobacco Use Status *Q: Never Tobacco User Second Hand Smoke Exposure: No - Caffeine Use Caffeine Use: Reports: Coffee, Energy Drinks, Soda, Tea Other Caffeine Use: 1-2 cups - Recreational Drug Use Recreational Drug Use: No - Living Situation & Occupation Living situation: Reports: Single, Other (with friends) Occupation: Employed ([employer] ED ROS GENERAL - Review of Systems Review Of Systems: See Below Constitutional: Reports: Fatigue. Denies: Fever, Chills HEENT: Reports: No Symptoms Respiratory: Reports: No Symptoms. Denies: Shortness of Breath, Cough Cardiovascular: Reports: No Symptoms Endocrine: Reports: No Symptoms GI/Abdominal: Denies: Abdominal Pain, Diarrhea, Nausea, Vomiting : Reports: No Symptoms Musculoskeletal: Reports: No Symptoms Skin: Reports: No Symptoms Neurological: Reports: No Symptoms Psychiatric: Reports: No Symptoms Hematologic/Lymphatic: Reports: No Symptoms Immunologic: Reports: No Symptoms ED EXAM GENERAL NO PERIP PULSE - Physical Exam Exam: See Below General Appearance: Alert, WD/WN, No Apparent Distress Respiratory/Chest: No Respiratory Distress, Lungs Clear, Normal Breath Sounds, No Accessory Muscle Use, Chest Non-Tender Cardiovascular: Normal Peripheral Pulses, Regular Rate, Rhythm, No Edema, No Gallop, No JVD, No Murmur, No Rub GI/Abdominal: Normal Bowel Sounds, Soft, Non-Tender, No Organomegaly, No Distention, No Abnormal Bruit, No Mass Neurological: Alert, Oriented, CN II-XII Intact, Normal Cognition, Normal Gait, Normal Reflexes, No Motor/Sensory Deficits Psychiatric: Normal Affect, Normal Mood Course - Vital Signs Last Recorded V/S: Last Vital Signs Temp 96.4 F L 07/31/20 16:59 Pulse 117 H 07/31/20 16:59 Resp 14 07/31/20 16:59 BP 101/62 07/31/20 16:59 Pulse Ox 100 07/31/20 16:59 - Orders/Labs/Meds Labs: Laboratory Tests 07/31/20 07/31/20 07/31/20 Range/Units 17:25 17:25 17:25 WBC 22.11 H (4.23-9.07) K/mm3 RBC 4.80 (4.63-6.08) M/mm3 Hgb 13.1 L (13.7-17.5) gm/dl Hct 38.6 L (40.1-51.0) % MCV 80.4 D (79.0-92.2) fl MCH 27.3 (25.7-32.2) pg MCHC 33.9 (32.2-35.5) g/dl RDW Std Deviation 39.4 (35.1-43.9) fL Plt Count 382 H D (163-337) K/mm3 MPV 11.2 (9.4-12.3) fl Neut % (Auto) 82.1 H (34.0-67.9) % Lymph % (Auto) 8.5 L (21.8-53.1) % [place] % (Auto) 8.5 (5.3-12.2) % Eos % (Auto) 0 L (0.8-7.0) Baso % (Auto) 0.2 (0.1-1.2) % Neut # (Auto) 18.15 H (1.78-5.38) K/mm3 Lymph # (Auto) 1.87 (1.32-3.57) K/mm3 [place] # (Auto) 1.88 H (0.30-0.82) K/mm3 Eos # (Auto) 0.01 L (0.04-0.54) K/mm3 Baso # (Auto) 0.05 (0.01-0.08) K/mm3 Manual Slide Review Abnormal smear Puncture Site ABG pH (7.35-7.45) ABG pCO2 (35.0-45.0) mmHg ABG pO2 (80.0-100.0) mmHg ABG HCO3 (22.0-26.0) meq/L ABG O2 Saturation (96.0-97.0) % ABG Base Excess (-2-2.0) Carson Test O2 Delivery Device FiO2 (21.00-100.00) % Sodium 119 L D (136-145) mEq/L Potassium 5.5 H (3.5-5.1) mEq/L Chloride 79 L D (98-107) mEq/L Carbon Dioxide 8 L* D (21-32) mEq/L Anion Gap 37.5 H (5-15) BUN 39 H (7-18) mg/dL Creatinine 1.9 H D (0.7-1.3) mg/dL Est Cr Clr Drug Dosing 47.33 mL/min Estimated GFR (MDRD) 44 (>60) mL/min BUN/Creatinine Ratio 20.5 H (14-18) Glucose 1160 H* (74-106) mg/dL POC Glucose (70-105) mg/dL Calcium 9.1 (8.5-10.1) mg/dL Phosphorus (2.6-4.7) mg/dL Magnesium (1.8-2.4) mg/dl Total Bilirubin 0.7 (0.2-1.0) mg/dL AST 19 (15-37) U/L ALT 25 (16-63) U/L Alkaline Phosphatase 103 (46-116) U/L C-Reactive Protein 0.7 (<1.0) mg/dL Total Protein 7.6 (6.4-8.2) g/dl Albumin 4.0 (3.4-5.0) g/dl Globulin 3.6 gm/dL Albumin/Globulin Ratio 1.1 (1-2) Urine Color (Yellow) Urine Appearance (Clear) Urine pH (5.0-8.0) Ur Specific [place] (1.005-1.030) Urine Protein (Negative) Urine Glucose (UA) (Negative) Urine Ketones (Negative) Urine Occult Blood (Negative) Urine Nitrite (Negative) Urine Bilirubin (Negative) Urine Urobilinogen (0.2-1.0) Ur Leukocyte Esterase (Negative) Urine RBC (0-5) /hpf Urine WBC (0-5) /hpf Ur Squamous Epith Cells (0-5) /hpf Urine Bacteria (FEW) /hpf Urine Mucus (FEW) /hpf Ketones 1.44 (0.0-0.3) mM SARS-CoV-2 RNA (MACRINA) (NEGATIVE) 07/31/20 07/31/20 07/31/20 Range/Units 17:25 17:29 17:54 WBC (4.23-9.07) K/mm3 RBC (4.63-6.08) M/mm3 Hgb (13.7-17.5) gm/dl Hct (40.1-51.0) % MCV (79.0-92.2) fl MCH (25.7-32.2) pg MCHC (32.2-35.5) g/dl RDW Std Deviation (35.1-43.9) fL Plt Count (163-337) K/mm3 MPV (9.4-12.3) fl Neut % (Auto) (34.0-67.9) % Lymph % (Auto) (21.8-53.1) % [place] % (Auto) (5.3-12.2) % Eos % (Auto) (0.8-7.0) Baso % (Auto) (0.1-1.2) % Neut # (Auto) (1.78-5.38) K/mm3 Lymph # (Auto) (1.32-3.57) K/mm3 [place] # (Auto) (0.30-0.82) K/mm3 Eos # (Auto) (0.04-0.54) K/mm3 Baso # (Auto) (0.01-0.08) K/mm3 Manual Slide Review Puncture Site Lt radial ABG pH 7.17 L* (7.35-7.45) ABG pCO2 16.9 L* (35.0-45.0) mmHg ABG pO2 129.0 H (80.0-100.0) mmHg ABG HCO3 5.9 L (22.0-26.0) meq/L ABG O2 Saturation 98.2 H (96.0-97.0) % ABG Base Excess -21.5 L (-2-2.0) Carson Test Positive O2 Delivery Device Room air FiO2 21.00 (21.00-100.00) % Sodium (136-145) mEq/L Potassium (3.5-5.1) mEq/L Chloride (98-107) mEq/L Carbon Dioxide (21-32) mEq/L Anion Gap (5-15) BUN (7-18) mg/dL Creatinine (0.7-1.3) mg/dL Est Cr Clr Drug Dosing mL/min Estimated GFR (MDRD) (>60) mL/min BUN/Creatinine Ratio (14-18) Glucose (74-106) mg/dL POC Glucose (70-105) mg/dL Calcium (8.5-10.1) mg/dL Phosphorus 9.4 H (2.6-4.7) mg/dL Magnesium 2.1 (1.8-2.4) mg/dl Total Bilirubin (0.2-1.0) mg/dL AST (15-37) U/L ALT (16-63) U/L Alkaline Phosphatase (46-116) U/L C-Reactive Protein (<1.0) mg/dL Total Protein (6.4-8.2) g/dl Albumin (3.4-5.0) g/dl Globulin gm/dL Albumin/Globulin Ratio (1-2) Urine Color Yellow (Yellow) Urine Appearance Clear (Clear) Urine pH 5.5 (5.0-8.0) Ur Specific [place] 1.020 (1.005-1.030) Urine Protein Negative (Negative) Urine Glucose (UA) 2+ H (Negative) Urine Ketones 3+ H (Negative) Urine Occult Blood Negative (Negative) Urine Nitrite Negative (Negative) Urine Bilirubin Negative (Negative) Urine Urobilinogen 0.2 (0.2-1.0) Ur Leukocyte Esterase Negative (Negative) Urine RBC 0-5 (0-5) /hpf Urine WBC 0-5 (0-5) /hpf Ur Squamous Epith Cells 0-5 (0-5) /hpf Urine Bacteria Occasional (FEW) /hpf Urine Mucus Few (FEW) /hpf Ketones (0.0-0.3) mM SARS-CoV-2 RNA (MACRINA) (NEGATIVE) 07/31/20 07/31/20 07/31/20 Range/Units 19:25 20:27 22:12 WBC (4.23-9.07) K/mm3 RBC (4.63-6.08) M/mm3 Hgb (13.7-17.5) gm/dl Hct (40.1-51.0) % MCV (79.0-92.2) fl MCH (25.7-32.2) pg MCHC (32.2-35.5) g/dl RDW Std Deviation (35.1-43.9) fL Plt Count (163-337) K/mm3 MPV (9.4-12.3) fl Neut % (Auto) (34.0-67.9) % Lymph % (Auto) (21.8-53.1) % [place] % (Auto) (5.3-12.2) % Eos % (Auto) (0.8-7.0) Baso % (Auto) (0.1-1.2) % Neut # (Auto) (1.78-5.38) K/mm3 Lymph # (Auto) (1.32-3.57) K/mm3 [place] # (Auto) (0.30-0.82) K/mm3 Eos # (Auto) (0.04-0.54) K/mm3 Baso # (Auto) (0.01-0.08) K/mm3 Manual Slide Review Puncture Site ABG pH (7.35-7.45) ABG pCO2 (35.0-45.0) mmHg ABG pO2 (80.0-100.0) mmHg ABG HCO3 (22.0-26.0) meq/L ABG O2 Saturation (96.0-97.0) % ABG Base Excess (-2-2.0) Carson Test O2 Delivery Device FiO2 (21.00-100.00) % Sodium (136-145) mEq/L Potassium (3.5-5.1) mEq/L Chloride (98-107) mEq/L Carbon Dioxide (21-32) mEq/L Anion Gap (5-15) BUN (7-18) mg/dL Creatinine (0.7-1.3) mg/dL Est Cr Clr Drug Dosing mL/min Estimated GFR (MDRD) (>60) mL/min BUN/Creatinine Ratio (14-18) Glucose 1067 H* 939 H* 589 H* (74-106) mg/dL POC Glucose (70-105) mg/dL Calcium (8.5-10.1) mg/dL Phosphorus (2.6-4.7) mg/dL Magnesium (1.8-2.4) mg/dl Total Bilirubin (0.2-1.0) mg/dL AST (15-37) U/L ALT (16-63) U/L Alkaline Phosphatase (46-116) U/L C-Reactive Protein (<1.0) mg/dL Total Protein (6.4-8.2) g/dl Albumin (3.4-5.0) g/dl Globulin gm/dL Albumin/Globulin Ratio (1-2) Urine Color (Yellow) Urine Appearance (Clear) Urine pH (5.0-8.0) Ur Specific [place] (1.005-1.030) Urine Protein (Negative) Urine Glucose (UA) (Negative) Urine Ketones (Negative) Urine Occult Blood (Negative) Urine Nitrite (Negative) Urine Bilirubin (Negative) Urine Urobilinogen (0.2-1.0) Ur Leukocyte Esterase (Negative) Urine RBC (0-5) /hpf Urine WBC (0-5) /hpf Ur Squamous Epith Cells (0-5) /hpf Urine Bacteria (FEW) /hpf Urine Mucus (FEW) /hpf Ketones (0.0-0.3) mM SARS-CoV-2 RNA (MACRINA) (NEGATIVE) 07/31/20 08/01/20 08/01/20 Range/Units 23:16 00:11 01:26 WBC (4.23-9.07) K/mm3 RBC (4.63-6.08) M/mm3 Hgb (13.7-17.5) gm/dl Hct (40.1-51.0) % MCV (79.0-92.2) fl MCH (25.7-32.2) pg MCHC (32.2-35.5) g/dl RDW Std Deviation (35.1-43.9) fL Plt Count (163-337) K/mm3 MPV (9.4-12.3) fl Neut % (Auto) (34.0-67.9) % Lymph % (Auto) (21.8-53.1) % [place] % (Auto) (5.3-12.2) % Eos % (Auto) (0.8-7.0) Baso % (Auto) (0.1-1.2) % Neut # (Auto) (1.78-5.38) K/mm3 Lymph # (Auto) (1.32-3.57) K/mm3 [place] # (Auto) (0.30-0.82) K/mm3 Eos # (Auto) (0.04-0.54) K/mm3 Baso # (Auto) (0.01-0.08) K/mm3 Manual Slide Review Puncture Site ABG pH (7.35-7.45) ABG pCO2 (35.0-45.0) mmHg ABG pO2 (80.0-100.0) mmHg ABG HCO3 (22.0-26.0) meq/L ABG O2 Saturation (96.0-97.0) % ABG Base Excess (-2-2.0) Carson Test O2 Delivery Device FiO2 (21.00-100.00) % Sodium 130 L D (136-145) mEq/L Potassium 4.2 (3.5-5.1) mEq/L Chloride 95 L D (98-107) mEq/L Carbon Dioxide 14 L (21-32) mEq/L Anion Gap 25.2 H (5-15) BUN 30 H (7-18) mg/dL Creatinine 1.4 H (0.7-1.3) mg/dL Est Cr Clr Drug Dosing 64.23 mL/min Estimated GFR (MDRD) > 60 (>60) mL/min BUN/Creatinine Ratio 21.4 H (14-18) Glucose 471 H (74-106) mg/dL POC Glucose 359 H 297 H (70-105) mg/dL Calcium 8.1 L (8.5-10.1) mg/dL Phosphorus (2.6-4.7) mg/dL Magnesium (1.8-2.4) mg/dl Total Bilirubin 0.5 (0.2-1.0) mg/dL AST 11 L (15-37) U/L ALT 19 (16-63) U/L Alkaline Phosphatase 85 (46-116) U/L C-Reactive Protein (<1.0) mg/dL Total Protein 6.3 L (6.4-8.2) g/dl Albumin 3.1 L (3.4-5.0) g/dl Globulin 3.2 gm/dL Albumin/Globulin Ratio 1.0 (1-2) Urine Color (Yellow) Urine Appearance (Clear) Urine pH (5.0-8.0) Ur Specific [place] (1.005-1.030) Urine Protein (Negative) Urine Glucose (UA) (Negative) Urine Ketones (Negative) Urine Occult Blood (Negative) Urine Nitrite (Negative) Urine Bilirubin (Negative) Urine Urobilinogen (0.2-1.0) Ur Leukocyte Esterase (Negative) Urine RBC (0-5) /hpf Urine WBC (0-5) /hpf Ur Squamous Epith Cells (0-5) /hpf Urine Bacteria (FEW) /hpf Urine Mucus (FEW) /hpf Ketones (0.0-0.3) mM SARS-CoV-2 RNA (MACRINA) (NEGATIVE) 08/01/20 08/01/20 08/01/20 Range/Units 02:26 03:29 04:42 WBC (4.23-9.07) K/mm3 RBC (4.63-6.08) M/mm3 Hgb (13.7-17.5) gm/dl Hct (40.1-51.0) % MCV (79.0-92.2) fl MCH (25.7-32.2) pg MCHC (32.2-35.5) g/dl RDW Std Deviation (35.1-43.9) fL Plt Count (163-337) K/mm3 MPV (9.4-12.3) fl Neut % (Auto) (34.0-67.9) % Lymph % (Auto) (21.8-53.1) % [place] % (Auto) (5.3-12.2) % Eos % (Auto) (0.8-7.0) Baso % (Auto) (0.1-1.2) % Neut # (Auto) (1.78-5.38) K/mm3 Lymph # (Auto) (1.32-3.57) K/mm3 [place] # (Auto) (0.30-0.82) K/mm3 Eos # (Auto) (0.04-0.54) K/mm3 Baso # (Auto) (0.01-0.08) K/mm3 Manual Slide Review Puncture Site ABG pH (7.35-7.45) ABG pCO2 (35.0-45.0) mmHg ABG pO2 (80.0-100.0) mmHg ABG HCO3 (22.0-26.0) meq/L ABG O2 Saturation (96.0-97.0) % ABG Base Excess (-2-2.0) Carson Test O2 Delivery Device FiO2 (21.00-100.00) % Sodium (136-145) mEq/L Potassium (3.5-5.1) mEq/L Chloride (98-107) mEq/L Carbon Dioxide (21-32) mEq/L Anion Gap (5-15) BUN (7-18) mg/dL Creatinine (0.7-1.3) mg/dL Est Cr Clr Drug Dosing mL/min Estimated GFR (MDRD) (>60) mL/min BUN/Creatinine Ratio (14-18) Glucose (74-106) mg/dL POC Glucose 275 H 233 H 196 H (70-105) mg/dL Calcium (8.5-10.1) mg/dL Phosphorus (2.6-4.7) mg/dL Magnesium (1.8-2.4) mg/dl Total Bilirubin (0.2-1.0) mg/dL AST (15-37) U/L ALT (16-63) U/L Alkaline Phosphatase (46-116) U/L C-Reactive Protein (<1.0) mg/dL Total Protein (6.4-8.2) g/dl Albumin (3.4-5.0) g/dl Globulin gm/dL Albumin/Globulin Ratio (1-2) Urine Color (Yellow) Urine Appearance (Clear) Urine pH (5.0-8.0) Ur Specific [place] (1.005-1.030) Urine Protein (Negative) Urine Glucose (UA) (Negative) Urine Ketones (Negative) Urine Occult Blood (Negative) Urine Nitrite (Negative) Urine Bilirubin (Negative) Urine Urobilinogen (0.2-1.0) Ur Leukocyte Esterase (Negative) Urine RBC (0-5) /hpf Urine WBC (0-5) /hpf Ur Squamous Epith Cells (0-5) /hpf Urine Bacteria (FEW) /hpf Urine Mucus (FEW) /hpf Ketones (0.0-0.3) mM SARS-CoV-2 RNA (MACRINA) (NEGATIVE) 08/01/20 08/01/20 08/01/20 Range/Units 05:52 06:59 06:59 WBC (4.23-9.07) K/mm3 RBC (4.63-6.08) M/mm3 Hgb (13.7-17.5) gm/dl Hct (40.1-51.0) % MCV (79.0-92.2) fl MCH (25.7-32.2) pg MCHC (32.2-35.5) g/dl RDW Std Deviation (35.1-43.9) fL Plt Count (163-337) K/mm3 MPV (9.4-12.3) fl Neut % (Auto) (34.0-67.9) % Lymph % (Auto) (21.8-53.1) % [place] % (Auto) (5.3-12.2) % Eos % (Auto) (0.8-7.0) Baso % (Auto) (0.1-1.2) % Neut # (Auto) (1.78-5.38) K/mm3 Lymph # (Auto) (1.32-3.57) K/mm3 [place] # (Auto) (0.30-0.82) K/mm3 Eos # (Auto) (0.04-0.54) K/mm3 Baso # (Auto) (0.01-0.08) K/mm3 Manual Slide Review Puncture Site ABG pH (7.35-7.45) ABG pCO2 (35.0-45.0) mmHg ABG pO2 (80.0-100.0) mmHg ABG HCO3 (22.0-26.0) meq/L ABG O2 Saturation (96.0-97.0) % ABG Base Excess (-2-2.0) Carson Test O2 Delivery Device FiO2 (21.00-100.00) % Sodium 135 L (136-145) mEq/L Potassium 4.0 (3.5-5.1) mEq/L Chloride 100 (98-107) mEq/L Carbon Dioxide 20 L (21-32) mEq/L Anion Gap 19.0 H (5-15) BUN 22 H (7-18) mg/dL Creatinine 1.0 (0.7-1.3) mg/dL Est Cr Clr Drug Dosing 89.92 mL/min Estimated GFR (MDRD) > 60 (>60) mL/min BUN/Creatinine Ratio 22.0 H (14-18) Glucose 261 H (74-106) mg/dL POC Glucose 170 H (70-105) mg/dL Calcium 8.1 L (8.5-10.1) mg/dL Phosphorus (2.6-4.7) mg/dL Magnesium (1.8-2.4) mg/dl Total Bilirubin 0.5 (0.2-1.0) mg/dL AST 14 L (15-37) U/L ALT 17 (16-63) U/L Alkaline Phosphatase 70 (46-116) U/L C-Reactive Protein (<1.0) mg/dL Total Protein 5.8 L (6.4-8.2) g/dl Albumin 2.9 L (3.4-5.0) g/dl Globulin 2.9 gm/dL Albumin/Globulin Ratio 1.0 (1-2) Urine Color (Yellow) Urine Appearance (Clear) Urine pH (5.0-8.0) Ur Specific [place] (1.005-1.030) Urine Protein (Negative) Urine Glucose (UA) (Negative) Urine Ketones (Negative) Urine Occult Blood (Negative) Urine Nitrite (Negative) Urine Bilirubin (Negative) Urine Urobilinogen (0.2-1.0) Ur Leukocyte Esterase (Negative) Urine RBC (0-5) /hpf Urine WBC (0-5) /hpf Ur Squamous Epith Cells (0-5) /hpf Urine Bacteria (FEW) /hpf Urine Mucus (FEW) /hpf Ketones 3.4 (0.0-0.3) mM SARS-CoV-2 RNA (MACRINA) (NEGATIVE) 08/01/20 08/01/20 08/01/20 Range/Units 06:59 09:37 10:57 WBC (4.23-9.07) K/mm3 RBC (4.63-6.08) M/mm3 Hgb (13.7-17.5) gm/dl Hct (40.1-51.0) % MCV (79.0-92.2) fl MCH (25.7-32.2) pg MCHC (32.2-35.5) g/dl RDW Std Deviation (35.1-43.9) fL Plt Count (163-337) K/mm3 MPV (9.4-12.3) fl Neut % (Auto) (34.0-67.9) % Lymph % (Auto) (21.8-53.1) % [place] % (Auto) (5.3-12.2) % Eos % (Auto) (0.8-7.0) Baso % (Auto) (0.1-1.2) % Neut # (Auto) (1.78-5.38) K/mm3 Lymph # (Auto) (1.32-3.57) K/mm3 [place] # (Auto) (0.30-0.82) K/mm3 Eos # (Auto) (0.04-0.54) K/mm3 Baso # (Auto) (0.01-0.08) K/mm3 Manual Slide Review Puncture Site ABG pH (7.35-7.45) ABG pCO2 (35.0-45.0) mmHg ABG pO2 (80.0-100.0) mmHg ABG HCO3 (22.0-26.0) meq/L ABG O2 Saturation (96.0-97.0) % ABG Base Excess (-2-2.0) [place] Test O2 Delivery Device FiO2 (21.00-100.00) % Sodium (136-145) mEq/L Potassium (3.5-5.1) mEq/L Chloride (98-107) mEq/L Carbon Dioxide (21-32) mEq/L Anion Gap (5-15) BUN (7-18) mg/dL Creatinine (0.7-1.3) mg/dL Est Cr Clr Drug Dosing mL/min Estimated GFR (MDRD) (>60) mL/min BUN/Creatinine Ratio (14-18) Glucose 265 H (74-106) mg/dL POC Glucose 306 H (70-105) mg/dL Calcium (8.5-10.1) mg/dL Phosphorus (2.6-4.7) mg/dL Magnesium 1.5 L (1.8-2.4) mg/dl Total Bilirubin (0.2-1.0) mg/dL AST (15-37) U/L ALT (16-63) U/L Alkaline Phosphatase (46-116) U/L C-Reactive Protein (<1.0) mg/dL Total Protein (6.4-8.2) g/dl Albumin (3.4-5.0) g/dl Globulin gm/dL Albumin/Globulin Ratio (1-2) Urine Color (Yellow) Urine Appearance (Clear) Urine pH (5.0-8.0) Ur Specific [place] (1.005-1.030) Urine Protein (Negative) Urine Glucose (UA) (Negative) Urine Ketones (Negative) Urine Occult Blood (Negative) Urine Nitrite (Negative) Urine Bilirubin (Negative) Urine Urobilinogen (0.2-1.0) Ur Leukocyte Esterase (Negative) Urine RBC (0-5) /hpf Urine WBC (0-5) /hpf Ur Squamous Epith Cells (0-5) /hpf Urine Bacteria (FEW) /hpf Urine Mucus (FEW) /hpf Ketones (0.0-0.3) mM SARS-CoV-2 RNA (MACRINA) (NEGATIVE) 08/01/20 08/01/20 08/01/20 Range/Units 11:50 12:39 13:27 WBC (4.23-9.07) K/mm3 RBC (4.63-6.08) M/mm3 Hgb (13.7-17.5) gm/dl Hct (40.1-51.0) % MCV (79.0-92.2) fl MCH (25.7-32.2) pg MCHC (32.2-35.5) g/dl RDW Std Deviation (35.1-43.9) fL Plt Count (163-337) K/mm3 MPV (9.4-12.3) fl Neut % (Auto) (34.0-67.9) % Lymph % (Auto) (21.8-53.1) % [place] % (Auto) (5.3-12.2) % Eos % (Auto) (0.8-7.0) Baso % (Auto) (0.1-1.2) % Neut # (Auto) (1.78-5.38) K/mm3 Lymph # (Auto) (1.32-3.57) K/mm3 [place] # (Auto) (0.30-0.82) K/mm3 Eos # (Auto) (0.04-0.54) K/mm3 Baso # (Auto) (0.01-0.08) K/mm3 Manual Slide Review Puncture Site ABG pH (7.35-7.45) ABG pCO2 (35.0-45.0) mmHg ABG pO2 (80.0-100.0) mmHg ABG HCO3 (22.0-26.0) meq/L ABG O2 Saturation (96.0-97.0) % ABG Base Excess (-2-2.0) [place] Test O2 Delivery Device FiO2 (21.00-100.00) % Sodium 137 (136-145) mEq/L Potassium 3.7 (3.5-5.1) mEq/L Chloride 105 (98-107) mEq/L Carbon Dioxide 26 (21-32) mEq/L Anion Gap 9.7 (5-15) BUN 17 (7-18) mg/dL Creatinine 1.0 (0.7-1.3) mg/dL Est Cr Clr Drug Dosing 89.92 mL/min Estimated GFR (MDRD) > 60 (>60) mL/min BUN/Creatinine Ratio 17.0 (14-18) Glucose 107 H (74-106) mg/dL POC Glucose 147 H (70-105) mg/dL Calcium 8.2 L (8.5-10.1) mg/dL Phosphorus (2.6-4.7) mg/dL Magnesium (1.8-2.4) mg/dl Total Bilirubin 0.4 (0.2-1.0) mg/dL AST 12 L (15-37) U/L ALT 17 (16-63) U/L Alkaline Phosphatase 68 (46-116) U/L C-Reactive Protein (<1.0) mg/dL Total Protein 5.4 L (6.4-8.2) g/dl Albumin 2.5 L (3.4-5.0) g/dl Globulin 2.9 gm/dL Albumin/Globulin Ratio 0.9 L (1-2) Urine Color (Yellow) Urine Appearance (Clear) Urine pH (5.0-8.0) Ur Specific [place] (1.005-1.030) Urine Protein (Negative) Urine Glucose (UA) (Negative) Urine Ketones (Negative) Urine Occult Blood (Negative) Urine Nitrite (Negative) Urine Bilirubin (Negative) Urine Urobilinogen (0.2-1.0) Ur Leukocyte Esterase (Negative) Urine RBC (0-5) /hpf Urine WBC (0-5) /hpf Ur Squamous Epith Cells (0-5) /hpf Urine Bacteria (FEW) /hpf Urine Mucus (FEW) /hpf Ketones (0.0-0.3) mM SARS-CoV-2 RNA (MACRINA) Positive H (NEGATIVE) 08/01/20 Range/Units 13:27 WBC (4.23-9.07) K/mm3 RBC (4.63-6.08) M/mm3 Hgb (13.7-17.5) gm/dl Hct (40.1-51.0) % MCV (79.0-92.2) fl MCH (25.7-32.2) pg MCHC (32.2-35.5) g/dl RDW Std Deviation (35.1-43.9) fL Plt Count (163-337) K/mm3 MPV (9.4-12.3) fl Neut % (Auto) (34.0-67.9) % Lymph % (Auto) (21.8-53.1) % [place] % (Auto) (5.3-12.2) % Eos % (Auto) (0.8-7.0) Baso % (Auto) (0.1-1.2) % Neut # (Auto) (1.78-5.38) K/mm3 Lymph # (Auto) (1.32-3.57) K/mm3 [place] # (Auto) (0.30-0.82) K/mm3 Eos # (Auto) (0.04-0.54) K/mm3 Baso # (Auto) (0.01-0.08) K/mm3 Manual Slide Review Puncture Site ABG pH (7.35-7.45) ABG pCO2 (35.0-45.0) mmHg ABG pO2 (80.0-100.0) mmHg ABG HCO3 (22.0-26.0) meq/L ABG O2 Saturation (96.0-97.0) % ABG Base Excess (-2-2.0) [place] Test O2 Delivery Device FiO2 (21.00-100.00) % Sodium (136-145) mEq/L Potassium (3.5-5.1) mEq/L Chloride (98-107) mEq/L Carbon Dioxide (21-32) mEq/L Anion Gap (5-15) BUN (7-18) mg/dL Creatinine (0.7-1.3) mg/dL Est Cr Clr Drug Dosing mL/min Estimated GFR (MDRD) (>60) mL/min BUN/Creatinine Ratio (14-18) Glucose (74-106) mg/dL POC Glucose (70-105) mg/dL Calcium (8.5-10.1) mg/dL Phosphorus (2.6-4.7) mg/dL Magnesium (1.8-2.4) mg/dl Total Bilirubin (0.2-1.0) mg/dL AST (15-37) U/L ALT (16-63) U/L Alkaline Phosphatase (46-116) U/L C-Reactive Protein (<1.0) mg/dL Total Protein (6.4-8.2) g/dl Albumin (3.4-5.0) g/dl Globulin gm/dL Albumin/Globulin Ratio (1-2) Urine Color (Yellow) Urine Appearance (Clear) Urine pH (5.0-8.0) Ur Specific [place] (1.005-1.030) Urine Protein (Negative) Urine Glucose (UA) (Negative) Urine Ketones (Negative) Urine Occult Blood (Negative) Urine Nitrite (Negative) Urine Bilirubin (Negative) Urine Urobilinogen (0.2-1.0) Ur Leukocyte Esterase (Negative) Urine RBC (0-5) /hpf Urine WBC (0-5) /hpf Ur Squamous Epith Cells (0-5) /hpf Urine Bacteria (FEW) /hpf Urine Mucus (FEW) /hpf Ketones 0.73 (0.0-0.3) mM SARS-CoV-2 RNA (MACRINA) (NEGATIVE) Meds: Medications Discontinued Medications Generic Name Dose Route Start Last Admin Trade Name Freq PRN Reason Stop Dose Admin Sodium Chloride 1,000 mls @ 999 mls/hr 07/31/20 17:06 07/31/20 17:56 Normal Saline IV 07/31/20 18:06 999 mls/hr NOW STA Administration Insulin Human Regular 100 unit 100 mls @ 4 mls/hr 07/31/20 18:00 07/31/20 18:06 / Sodium Chloride IV 4 unit/hr TITRATE PRINCE 4 mls/hr Administration Protocol 4 UNIT/HR Sodium Chloride 1,000 mls @ 999 mls/hr 07/31/20 18:23 07/31/20 20:15 Normal Saline IV 07/31/20 19:23 999 mls/hr NOW STA Administration Lactated Ringer's 1,000 mls @ 999 mls/hr 07/31/20 20:30 07/31/20 22:25 Ringers, Lactated IV 999 mls/hr ASDIRECTED PRINCE Administration Lactated Ringer's 1,000 mls @ 200 mls/hr 07/31/20 22:15 08/01/20 00:25 Ringers, Lactated IV 200 mls/hr ASDIRECTED PRINCE Administration Insulin Human Regular 100 unit 100 mls @ 2 mls/hr 07/31/20 23:00 08/01/20 05:54 / Sodium Chloride IV 0 unit/hr TITRATE PRINCE 0 mls/hr Titration Protocol 2 UNIT/HR Lactated Ringer's 1,000 mls @ 999 mls/hr 08/01/20 08:15 08/01/20 08:52 Ringers, Lactated IV 999 mls/hr ASDIRECTED PRINCE Administration Lactated Ringer's 1,000 mls @ 999 mls/hr 08/01/20 10:00 08/01/20 10:08 Ringers, Lactated IV 999 mls/hr ASDIRECTED PRINCE Administration Lactated Ringer's 1,000 mls @ 999 mls/hr 08/01/20 11:30 08/01/20 11:36 Ringers, Lactated IV 08/01/20 12:30 999 mls/hr .BOLUS ONE Administration Lactated Ringer's 1,000 mls @ 999 mls/hr 08/01/20 12:43 08/01/20 13:33 Ringers, Lactated IV 08/01/20 13:43 999 mls/hr .BOLUS ONE Administration Insulin Human Regular 10 unit 08/01/20 08:15 08/01/20 08:25 Humulin R SUBCUT 08/01/20 08:16 10 unit ONETIME ONE Administration Insulin Human Regular 10 unit 08/01/20 09:41 08/01/20 10:05 Humulin R SUBCUT 08/01/20 09:42 10 unit ONETIME ONE Administration Metoclopramide HCl 7.5 mg 08/01/20 07:46 08/01/20 07:56 Reglan IVPUSH 08/01/20 07:47 7.5 mg ONETIME ONE Administration - Re-Assessments/Exams Free Text/Narrative Re-Assessment/Exam: 07/31/20 1830 Hematology was significant for WBC elevated at 22.11, platelets 382, sodium 119, potassium 5.5, chloride 79, CO2 8, anion gap 37.5, BUN 39, creatinine 1.9, glucose 1160. Urinalysis showed 2+ glucose and 3+ ketones. Serum ketones were 1.44. BG's showed a pH of 7.17 with a PCO2 of 16.9, bicarb 5.9 Indicating the patient is a partially compensated metabolic acidosis. Work-up was consistent w ith a diagnosis of diabetic ketoacidosis. Patient had initially been given a 1 L bolus of normal saline. We will repeat this with a second liter of normal saline, followed by a bolus of lactated Ringer's. Insulin drip has been initiated at 4 mils per hour. We will monitor random glucoses hourly and recheck a CMP at 4 hours. Unfortunately there are no beds available in our facility or any outlying facility throughout the [facility]. Patient will stay in the emergency department for treatment until the event that a bed would become available or he is suitable for discharge. I have ordered hourly random glucose as well as a repeat BMP 11 PM. We will continue insulin drip at 4 units/h. 07/31/20 22:21 Last blood glucose was 949. Insulin drip infusing at 4 units/h. Case discussed with Dr. Benjamin MD. He will assume care and disposition of patient due to end of shift. Sepsis Event Note (ED) - Evaluation Sepsis Screening Result: No Definite Risk
[2020-07-31] MEDS ORDERED: Lactated Ringers 1,000 ML IV SCH ×2 (20:30→22:15)
[2020-08-01] MEDS ORDERED: Metoclopramide 10 MG/2 ML SDV IVPUSH ONE (07:46)
[2020-08-01] MEDS ORDERED: Lactated Ringers 1,000 ML IV SCH ×2 (08:15→10:00)
[2020-08-01] MEDS ORDERED: Insulin Regular, Human 100 Units/ML 3 ML Vial SUBCUT ONE ×2 (08:15→09:41)
[2020-08-01] MEDS ORDERED: Lactated Ringers 1,000 ML IV ONE ×2 (11:30→12:43)
== END 2020-08-01 14:30 | disposition home or self-care (01) ==
LOC: JD.ED 16:39
DX: U07.1 COVID-19 (principal); E83.42 Hypomagnesemia; E10.10 Type 1 diabetes mellitus with ketoacidosis without coma; I10 Essential (primary) hypertension; E10.21 Type 1 diabetes mellitus with diabetic nephropathy
CPT/HCPCS: 36415; 36600; 80053; 81001; 82009; 82803; 82947; 82962; 83735; 84100; 85025; 86140; 87635; 96374; 99284; J1815; J2765; J7030; J7120; U0002

== ENCOUNTER 2020-08-03 15:21 | Inpatient (IN) | payer MEDICAID ==
[2020-08-03] MEDS ORDERED: Sodium Chloride 0.9% 10 ML Syringe FLUSH PRN (16:05)
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
[2020-08-03] MEDS ORDERED: Sodium Chloride 0.9% 1,000 ML IV SCH (16:15)
[2020-08-03] MEDS ORDERED: Sodium Chloride 0.9% 1,000 ML IV ONE (16:49)
[2020-08-03] MEDS ORDERED: Ondansetron 4 MG/2 ML SDV IVPUSH ONE (17:15)
[2020-08-03] MEDS ORDERED: Sodium Chloride 0.45% with KCl 1,000 ML IV SCH (18:30)
[2020-08-03] MEDS ORDERED: NS + KCl 20mEq/L 1,000 ML IV SCH (18:30)
[2020-08-03] MEDS ORDERED: Magnesium Sulfate/Water 4 GM in Premix Bag 1 BAG IV ONE (19:30)
[2020-08-03] MEDS ORDERED: Acetaminophen 325 MG Tab PO PRN (20:11)
[2020-08-03] MEDS ORDERED: Ondansetron 4 MG/2 ML SDV IV PRN (20:11)
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
[2020-08-03] MEDS ORDERED: D5 1/2 NS w/ 20 mEq/L KCl 1,000 ML IV SCH (22:15)
[2020-08-03] MEDS ORDERED: Dextrose 5%-0.45% NaCl 500 ML IV ONE (22:56)
[2020-08-03] MEDS: Potassium Chloride 10 MEQ in Premix Bag 1 BAG IV SCH (23:14)
[2020-08-04] MEDS: Potassium Chloride 10 MEQ in Premix Bag 1 BAG IV SCH (00:43)
[2020-08-04] MEDS ORDERED: Magnesium Sulfate/Water 4 GM in Premix Bag 1 BAG IV ONE (05:27)
[2020-08-04 07:28] LABS: HEMOGLOBIN A1C 12.2 % (4.50-6.20)
[2020-08-04] MEDS ORDERED: Potassium Phosphates 30 MMOLE in Sodium Chloride 0.9% 500 ML IV SCH (08:15)
[2020-08-04] MEDS ORDERED: Potassium Phosphates 30 MMOLE in Sodium Chloride 0.9% 500 ML IV ONE (09:00)
--- NOTE | 2020-08-04 20:59 | PCM.PN ---
- General Info Date of Service: 08/04/20 Admission Dx/Problem (Free Text): Admission Diagnosis/Problem Admission Diagnosis/Problem Diabetic ketoacidosis Subjective Update: Hai had resolution of his DKA this morning and we switched him over to his basal rate of insulin through his insulin pump. Patient bolused himself at a correction rate of 1 unit of insulin for 6 g of carbs and with his basal rate of 2 units/h and bolusing his blood sugars increased dramatically above 400. He was switched to insulin drip initially at 3 and then 4 units/h and his blood sugars stayed in the 300s. Patient is feeling well and is asymptomatic without nausea or vomiting. Functional Status: Reports: Pain Controlled - Review of Systems General: Reports: No Symptoms HEENT: Reports: No Symptoms Pulmonary: Reports: No Symptoms Cardiovascular: Reports: No Symptoms Gastrointestinal: Reports: No Symptoms Musculoskeletal: Reports: No Symptoms - Patient Data Vitals - Most Recent: Last Vital Signs Temp 97.2 F 08/04/20 20:00 Pulse 108 H 08/03/20 15:49 Resp 16 08/04/20 20:00 BP 133/94 H 08/04/20 20:00 Pulse Ox 100 08/04/20 20:00 Weight - Most Recent: 130 lb 1.164 oz I&O - Last 24 Hours: Intake & Output 08/04/20 08/04/20 08/04/20 06:59 14:59 22:59 Intake Total 3324 420 1320 Output Total 800 2500 Balance 2524 420 -1180 Lab Results Last 24 Hours: Laboratory Results - last 24 hr 08/03/20 08/03/20 08/03/20 Range/Units 19:06 21:02 21:55 WBC (4.23-9.07) K/mm3 RBC (4.63-6.08) M/mm3 Hgb (13.7-17.5) gm/dl Hct (40.1-51.0) % MCV (79.0-92.2) fl MCH (25.7-32.2) pg MCHC (32.2-35.5) g/dl RDW Std Deviation (35.1-43.9) fL Plt Count (163-337) K/mm3 MPV (9.4-12.3) fl Neut % (Auto) (34.0-67.9) % Lymph % (Auto) (21.8-53.1) % [place] % (Auto) (5.3-12.2) % Eos % (Auto) (0.8-7.0) Baso % (Auto) (0.1-1.2) % Neut # (Auto) (1.78-5.38) K/mm3 Lymph # (Auto) (1.32-3.57) K/mm3 [place] # (Auto) (0.30-0.82) K/mm3 Eos # (Auto) (0.04-0.54) K/mm3 Baso # (Auto) (0.01-0.08) K/mm3 Sodium (136-145) mEq/L Potassium (3.5-5.1) mEq/L Chloride (98-107) mEq/L Carbon Dioxide (21-32) mEq/L Anion Gap (5-15) BUN (7-18) mg/dL Creatinine (0.7-1.3) mg/dL Est Cr Clr Drug Dosing mL/min Estimated GFR (MDRD) (>60) mL/min BUN/Creatinine Ratio (14-18) Glucose (74-106) mg/dL POC Glucose 375 H 252 H 214 H (70-105) mg/dL Hemoglobin A1c (4.50-6.20) % Calcium (8.5-10.1) mg/dL Phosphorus (2.6-4.7) mg/dL Magnesium (1.8-2.4) mg/dl Total Bilirubin (0.2-1.0) mg/dL AST (15-37) U/L ALT (16-63) U/L Alkaline Phosphatase (46-116) U/L Total Protein (6.4-8.2) g/dl Albumin (3.4-5.0) g/dl Globulin gm/dL Albumin/Globulin Ratio (1-2) Ketones (0.0-0.3) mM 08/03/20 08/03/20 08/03/20 Range/Units 22:06 23:29 23:59 WBC (4.23-9.07) K/mm3 RBC (4.63-6.08) M/mm3 Hgb (13.7-17.5) gm/dl Hct (40.1-51.0) % MCV (79.0-92.2) fl MCH (25.7-32.2) pg MCHC (32.2-35.5) g/dl RDW Std Deviation (35.1-43.9) fL Plt Count (163-337) K/mm3 MPV (9.4-12.3) fl Neut % (Auto) (34.0-67.9) % Lymph % (Auto) (21.8-53.1) % [place] % (Auto) (5.3-12.2) % Eos % (Auto) (0.8-7.0) Baso % (Auto) (0.1-1.2) % Neut # (Auto) (1.78-5.38) K/mm3 Lymph # (Auto) (1.32-3.57) K/mm3 [place] # (Auto) (0.30-0.82) K/mm3 Eos # (Auto) (0.04-0.54) K/mm3 Baso # (Auto) (0.01-0.08) K/mm3 Sodium 136 137 (136-145) mEq/L Potassium 3.7 3.5 (3.5-5.1) mEq/L Chloride 103 103 (98-107) mEq/L Carbon Dioxide 20 L 22 (21-32) mEq/L Anion Gap 16.7 H 15.5 H (5-15) BUN 8 7 (7-18) mg/dL Creatinine 0.9 0.9 (0.7-1.3) mg/dL Est Cr Clr Drug Dosing 102.37 102.37 mL/min Estimated GFR (MDRD) > 60 > 60 (>60) mL/min BUN/Creatinine Ratio 8.9 L 7.8 L (14-18) Glucose 189 H 88 (74-106) mg/dL POC Glucose 95 (70-105) mg/dL Hemoglobin A1c (4.50-6.20) % Calcium 8.1 L 8.2 L (8.5-10.1) mg/dL Phosphorus 2.4 L 2.2 L (2.6-4.7) mg/dL Magnesium 1.7 L 2.0 (1.8-2.4) mg/dl Total Bilirubin 0.6 0.5 (0.2-1.0) mg/dL AST 17 16 (15-37) U/L ALT 30 28 (16-63) U/L Alkaline Phosphatase 82 80 (46-116) U/L Total Protein 6.3 L 6.1 L (6.4-8.2) g/dl Albumin 3.1 L 3.1 L (3.4-5.0) g/dl Globulin 3.2 3.0 gm/dL Albumin/Globulin Ratio 1.0 1.0 (1-2) Ketones (0.0-0.3) mM 08/04/20 08/04/20 08/04/20 Range/Units 00:12 01:08 02:06 WBC (4.23-9.07) K/mm3 RBC (4.63-6.08) M/mm3 Hgb (13.7-17.5) gm/dl Hct (40.1-51.0) % MCV (79.0-92.2) fl MCH (25.7-32.2) pg MCHC (32.2-35.5) g/dl RDW Std Deviation (35.1-43.9) fL Plt Count (163-337) K/mm3 MPV (9.4-12.3) fl Neut % (Auto) (34.0-67.9) % Lymph % (Auto) (21.8-53.1) % [place] % (Auto) (5.3-12.2) % Eos % (Auto) (0.8-7.0) Baso % (Auto) (0.1-1.2) % Neut # (Auto) (1.78-5.38) K/mm3 Lymph # (Auto) (1.32-3.57) K/mm3 [place] # (Auto) (0.30-0.82) K/mm3 Eos # (Auto) (0.04-0.54) K/mm3 Baso # (Auto) (0.01-0.08) K/mm3 Sodium (136-145) mEq/L Potassium (3.5-5.1) mEq/L Chloride (98-107) mEq/L Carbon Dioxide (21-32) mEq/L Anion Gap (5-15) BUN (7-18) mg/dL Creatinine (0.7-1.3) mg/dL Est Cr Clr Drug Dosing mL/min Estimated GFR (MDRD) (>60) mL/min BUN/Creatinine Ratio (14-18) Glucose (74-106) mg/dL POC Glucose 117 H 186 H 322 H (70-105) mg/dL Hemoglobin A1c (4.50-6.20) % Calcium (8.5-10.1) mg/dL Phosphorus (2.6-4.7) mg/dL Magnesium (1.8-2.4) mg/dl Total Bilirubin (0.2-1.0) mg/dL AST (15-37) U/L ALT (16-63) U/L Alkaline Phosphatase (46-116) U/L Total Protein (6.4-8.2) g/dl Albumin (3.4-5.0) g/dl Globulin gm/dL Albumin/Globulin Ratio (1-2) Ketones (0.0-0.3) mM 08/04/20 08/04/20 08/04/20 Range/Units 02:35 03:13 03:59 WBC (4.23-9.07) K/mm3 RBC (4.63-6.08) M/mm3 Hgb (13.7-17.5) gm/dl Hct (40.1-51.0) % MCV (79.0-92.2) fl MCH (25.7-32.2) pg MCHC (32.2-35.5) g/dl RDW Std Deviation (35.1-43.9) fL Plt Count (163-337) K/mm3 MPV (9.4-12.3) fl Neut % (Auto) (34.0-67.9) % Lymph % (Auto) (21.8-53.1) % [place] % (Auto) (5.3-12.2) % Eos % (Auto) (0.8-7.0) Baso % (Auto) (0.1-1.2) % Neut # (Auto) (1.78-5.38) K/mm3 Lymph # (Auto) (1.32-3.57) K/mm3 [place] # (Auto) (0.30-0.82) K/mm3 Eos # (Auto) (0.04-0.54) K/mm3 Baso # (Auto) (0.01-0.08) K/mm3 Sodium 131 L (136-145) mEq/L Potassium 4.1 (3.5-5.1) mEq/L Chloride 97 L (98-107) mEq/L Carbon Dioxide 15 L (21-32) mEq/L Anion Gap 23.1 H (5-15) BUN 7 (7-18) mg/dL Creatinine 0.9 (0.7-1.3) mg/dL Est Cr Clr Drug Dosing 102.37 mL/min Estimated GFR (MDRD) > 60 (>60) mL/min BUN/Creatinine Ratio 7.8 L (14-18) Glucose 355 H (74-106) mg/dL POC Glucose 324 H 277 H (70-105) mg/dL Hemoglobin A1c (4.50-6.20) % Calcium 8.1 L (8.5-10.1) mg/dL Phosphorus 2.3 L (2.6-4.7) mg/dL Magnesium 1.7 L (1.8-2.4) mg/dl Total Bilirubin 0.7 (0.2-1.0) mg/dL AST 18 (15-37) U/L ALT 25 (16-63) U/L Alkaline Phosphatase 80 (46-116) U/L Total Protein 6.1 L (6.4-8.2) g/dl Albumin 3.1 L (3.4-5.0) g/dl Globulin 3.0 gm/dL Albumin/Globulin Ratio 1.0 (1-2) Ketones (0.0-0.3) mM 08/04/20 08/04/20 08/04/20 Range/Units 04:30 04:30 04:30 WBC 5.60 (4.23-9.07) K/mm3 RBC 4.07 L (4.63-6.08) M/mm3 Hgb 11.0 L D (13.7-17.5) gm/dl Hct 32.0 L (40.1-51.0) % MCV 78.6 L (79.0-92.2) fl MCH 27.0 (25.7-32.2) pg MCHC 34.4 (32.2-35.5) g/dl RDW Std Deviation 38.1 (35.1-43.9) fL Plt Count 188 (163-337) K/mm3 MPV 9.0 L (9.4-12.3) fl Neut % (Auto) 54.2 (34.0-67.9) % Lymph % (Auto) 38.0 (21.8-53.1) % [place] % (Auto) 6.3 (5.3-12.2) % Eos % (Auto) 0.9 (0.8-7.0) Baso % (Auto) 0.4 (0.1-1.2) % Neut # (Auto) 3.04 (1.78-5.38) K/mm3 Lymph # (Auto) 2.13 (1.32-3.57) K/mm3 [place] # (Auto) 0.35 (0.30-0.82) K/mm3 Eos # (Auto) 0.05 (0.04-0.54) K/mm3 Baso # (Auto) 0.02 (0.01-0.08) K/mm3 Sodium 135 L (136-145) mEq/L Potassium 3.8 (3.5-5.1) mEq/L Chloride 100 (98-107) mEq/L Carbon Dioxide 17 L (21-32) mEq/L Anion Gap 21.8 H (5-15) BUN 5 L (7-18) mg/dL Creatinine 0.9 (0.7-1.3) mg/dL Est Cr Clr Drug Dosing 106.53 mL/min Estimated GFR (MDRD) > 60 (>60) mL/min BUN/Creatinine Ratio 5.6 L (14-18) Glucose 278 H (74-106) mg/dL POC Glucose (70-105) mg/dL Hemoglobin A1c 12.20 H (4.50-6.20) % Calcium 7.5 L (8.5-10.1) mg/dL Phosphorus 1.9 L (2.6-4.7) mg/dL Magnesium 1.6 L (1.8-2.4) mg/dl Total Bilirubin 0.6 (0.2-1.0) mg/dL AST 17 (15-37) U/L ALT 27 (16-63) U/L Alkaline Phosphatase 71 (46-116) U/L Total Protein 5.7 L (6.4-8.2) g/dl Albumin 2.7 L (3.4-5.0) g/dl Globulin 3.0 gm/dL Albumin/Globulin Ratio 0.9 L (1-2) Ketones (0.0-0.3) mM 08/04/20 08/04/20 08/04/20 Range/Units 05:03 06:05 07:04 WBC (4.23-9.07) K/mm3 RBC (4.63-6.08) M/mm3 Hgb (13.7-17.5) gm/dl Hct (40.1-51.0) % MCV (79.0-92.2) fl MCH (25.7-32.2) pg MCHC (32.2-35.5) g/dl RDW Std Deviation (35.1-43.9) fL Plt Count (163-337) K/mm3 MPV (9.4-12.3) fl Neut % (Auto) (34.0-67.9) % Lymph % (Auto) (21.8-53.1) % [place] % (Auto) (5.3-12.2) % Eos % (Auto) (0.8-7.0) Baso % (Auto) (0.1-1.2) % Neut # (Auto) (1.78-5.38) K/mm3 Lymph # (Auto) (1.32-3.57) K/mm3 [place] # (Auto) (0.30-0.82) K/mm3 Eos # (Auto) (0.04-0.54) K/mm3 Baso # (Auto) (0.01-0.08) K/mm3 Sodium (136-145) mEq/L Potassium (3.5-5.1) mEq/L Chloride (98-107) mEq/L Carbon Dioxide (21-32) mEq/L Anion Gap (5-15) BUN (7-18) mg/dL Creatinine (0.7-1.3) mg/dL Est Cr Clr Drug Dosing mL/min Estimated GFR (MDRD) (>60) mL/min BUN/Creatinine Ratio (14-18) Glucose (74-106) mg/dL POC Glucose 257 H 218 H 140 H (70-105) mg/dL Hemoglobin A1c (4.50-6.20) % Calcium (8.5-10.1) mg/dL Phosphorus (2.6-4.7) mg/dL Magnesium (1.8-2.4) mg/dl Total Bilirubin (0.2-1.0) mg/dL AST (15-37) U/L ALT (16-63) U/L Alkaline Phosphatase (46-116) U/L Total Protein (6.4-8.2) g/dl Albumin (3.4-5.0) g/dl Globulin gm/dL Albumin/Globulin Ratio (1-2) Ketones (0.0-0.3) mM 08/04/20 08/04/20 08/04/20 Range/Units 07:07 07:08 08:05 WBC (4.23-9.07) K/mm3 RBC (4.63-6.08) M/mm3 Hgb (13.7-17.5) gm/dl Hct (40.1-51.0) % MCV (79.0-92.2) fl MCH (25.7-32.2) pg MCHC (32.2-35.5) g/dl RDW Std Deviation (35.1-43.9) fL Plt Count (163-337) K/mm3 MPV (9.4-12.3) fl Neut % (Auto) (34.0-67.9) % Lymph % (Auto) (21.8-53.1) % [place] % (Auto) (5.3-12.2) % Eos % (Auto) (0.8-7.0) Baso % (Auto) (0.1-1.2) % Neut # (Auto) (1.78-5.38) K/mm3 Lymph # (Auto) (1.32-3.57) K/mm3 [place] # (Auto) (0.30-0.82) K/mm3 Eos # (Auto) (0.04-0.54) K/mm3 Baso # (Auto) (0.01-0.08) K/mm3 Sodium 135 L (136-145) mEq/L Potassium 3.3 L (3.5-5.1) mEq/L Chloride 103 (98-107) mEq/L Carbon Dioxide 24 (21-32) mEq/L Anion Gap 11.3 (5-15) BUN 4 L (7-18) mg/dL Creatinine 0.9 (0.7-1.3) mg/dL Est Cr Clr Drug Dosing 106.53 mL/min Estimated GFR (MDRD) > 60 (>60) mL/min BUN/Creatinine Ratio 4.4 L (14-18) Glucose 142 H (74-106) mg/dL POC Glucose 98 (70-105) mg/dL Hemoglobin A1c (4.50-6.20) % Calcium 7.8 L (8.5-10.1) mg/dL Phosphorus 1.9 L (2.6-4.7) mg/dL Magnesium 2.1 (1.8-2.4) mg/dl Total Bilirubin 0.5 (0.2-1.0) mg/dL AST 14 L (15-37) U/L ALT 24 (16-63) U/L Alkaline Phosphatase 75 (46-116) U/L Total Protein 5.7 L (6.4-8.2) g/dl Albumin 2.7 L (3.4-5.0) g/dl Globulin 3.0 gm/dL Albumin/Globulin Ratio 0.9 L (1-2) Ketones 0.79 (0.0-0.3) mM 08/04/20 08/04/20 08/04/20 Range/Units 09:09 10:05 11:11 WBC (4.23-9.07) K/mm3 RBC (4.63-6.08) M/mm3 Hgb (13.7-17.5) gm/dl Hct (40.1-51.0) % MCV (79.0-92.2) fl MCH (25.7-32.2) pg MCHC (32.2-35.5) g/dl RDW Std Deviation (35.1-43.9) fL Plt Count (163-337) K/mm3 MPV (9.4-12.3) fl Neut % (Auto) (34.0-67.9) % Lymph % (Auto) (21.8-53.1) % [place] % (Auto) (5.3-12.2) % Eos % (Auto) (0.8-7.0) Baso % (Auto) (0.1-1.2) % Neut # (Auto) (1.78-5.38) K/mm3 Lymph # (Auto) (1.32-3.57) K/mm3 [place] # (Auto) (0.30-0.82) K/mm3 Eos # (Auto) (0.04-0.54) K/mm3 Baso # (Auto) (0.01-0.08) K/mm3 Sodium (136-145) mEq/L Potassium (3.5-5.1) mEq/L Chloride (98-107) mEq/L Carbon Dioxide (21-32) mEq/L Anion Gap (5-15) BUN (7-18) mg/dL Creatinine (0.7-1.3) mg/dL Est Cr Clr Drug Dosing mL/min Estimated GFR (MDRD) (>60) mL/min BUN/Creatinine Ratio (14-18) Glucose (74-106) mg/dL POC Glucose 143 H 298 H 350 H (70-105) mg/dL Hemoglobin A1c (4.50-6.20) % Calcium (8.5-10.1) mg/dL Phosphorus (2.6-4.7) mg/dL Magnesium (1.8-2.4) mg/dl Total Bilirubin (0.2-1.0) mg/dL AST (15-37) U/L ALT (16-63) U/L Alkaline Phosphatase (46-116) U/L Total Protein (6.4-8.2) g/dl Albumin (3.4-5.0) g/dl Globulin gm/dL Albumin/Globulin Ratio (1-2) Ketones (0.0-0.3) mM 08/04/20 08/04/20 08/04/20 Range/Units 11:57 13:07 14:08 WBC (4.23-9.07) K/mm3 RBC (4.63-6.08) M/mm3 Hgb (13.7-17.5) gm/dl Hct (40.1-51.0) % MCV (79.0-92.2) fl MCH (25.7-32.2) pg MCHC (32.2-35.5) g/dl RDW Std Deviation (35.1-43.9) fL Plt Count (163-337) K/mm3 MPV (9.4-12.3) fl Neut % (Auto) (34.0-67.9) % Lymph % (Auto) (21.8-53.1) % [place] % (Auto) (5.3-12.2) % Eos % (Auto) (0.8-7.0) Baso % (Auto) (0.1-1.2) % Neut # (Auto) (1.78-5.38) K/mm3 Lymph # (Auto) (1.32-3.57) K/mm3 [place] # (Auto) (0.30-0.82) K/mm3 Eos # (Auto) (0.04-0.54) K/mm3 Baso # (Auto) (0.01-0.08) K/mm3 Sodium (136-145) mEq/L Potassium (3.5-5.1) mEq/L Chloride (98-107) mEq/L Carbon Dioxide (21-32) mEq/L Anion Gap (5-15) BUN (7-18) mg/dL Creatinine (0.7-1.3) mg/dL Est Cr Clr Drug Dosing mL/min Estimated GFR (MDRD) (>60) mL/min BUN/Creatinine Ratio (14-18) Glucose (74-106) mg/dL POC Glucose 354 H 305 H 380 H (70-105) mg/dL Hemoglobin A1c (4.50-6.20) % Calcium (8.5-10.1) mg/dL Phosphorus (2.6-4.7) mg/dL Magnesium (1.8-2.4) mg/dl Total Bilirubin (0.2-1.0) mg/dL AST (15-37) U/L ALT (16-63) U/L Alkaline Phosphatase (46-116) U/L Total Protein (6.4-8.2) g/dl Albumin (3.4-5.0) g/dl Globulin gm/dL Albumin/Globulin Ratio (1-2) Ketones (0.0-0.3) mM 08/04/20 08/04/20 08/04/20 Range/Units 15:22 17:17 18:10 WBC (4.23-9.07) K/mm3 RBC (4.63-6.08) M/mm3 Hgb (13.7-17.5) gm/dl Hct (40.1-51.0) % MCV (79.0-92.2) fl MCH (25.7-32.2) pg MCHC (32.2-35.5) g/dl RDW Std Deviation (35.1-43.9) fL Plt Count (163-337) K/mm3 MPV (9.4-12.3) fl Neut % (Auto) (34.0-67.9) % Lymph % (Auto) (21.8-53.1) % [place] % (Auto) (5.3-12.2) % Eos % (Auto) (0.8-7.0) Baso % (Auto) (0.1-1.2) % Neut # (Auto) (1.78-5.38) K/mm3 Lymph # (Auto) (1.32-3.57) K/mm3 [place] # (Auto) (0.30-0.82) K/mm3 Eos # (Auto) (0.04-0.54) K/mm3 Baso # (Auto) (0.01-0.08) K/mm3 Sodium (136-145) mEq/L Potassium (3.5-5.1) mEq/L Chloride (98-107) mEq/L Carbon Dioxide (21-32) mEq/L Anion Gap (5-15) BUN (7-18) mg/dL Creatinine (0.7-1.3) mg/dL Est Cr Clr Drug Dosing mL/min Estimated GFR (MDRD) (>60) mL/min BUN/Creatinine Ratio (14-18) Glucose 430 H (74-106) mg/dL POC Glucose 367 H 320 H (70-105) mg/dL Hemoglobin A1c (4.50-6.20) % Calcium (8.5-10.1) mg/dL Phosphorus (2.6-4.7) mg/dL Magnesium (1.8-2.4) mg/dl Total Bilirubin (0.2-1.0) mg/dL AST (15-37) U/L ALT (16-63) U/L Alkaline Phosphatase (46-116) U/L Total Protein (6.4-8.2) g/dl Albumin (3.4-5.0) g/dl Globulin gm/dL Albumin/Globulin Ratio (1-2) Ketones (0.0-0.3) mM 08/04/20 08/04/20 Range/Units 19:09 20:05 WBC (4.23-9.07) K/mm3 RBC (4.63-6.08) M/mm3 Hgb (13.7-17.5) gm/dl Hct (40.1-51.0) % MCV (79.0-92.2) fl MCH (25.7-32.2) pg MCHC (32.2-35.5) g/dl RDW Std Deviation (35.1-43.9) fL Plt Count (163-337) K/mm3 MPV (9.4-12.3) fl Neut % (Auto) (34.0-67.9) % Lymph % (Auto) (21.8-53.1) % [place] % (Auto) (5.3-12.2) % Eos % (Auto) (0.8-7.0) Baso % (Auto) (0.1-1.2) % Neut # (Auto) (1.78-5.38) K/mm3 Lymph # (Auto) (1.32-3.57) K/mm3 [place] # (Auto) (0.30-0.82) K/mm3 Eos # (Auto) (0.04-0.54) K/mm3 Baso # (Auto) (0.01-0.08) K/mm3 Sodium (136-145) mEq/L Potassium (3.5-5.1) mEq/L Chloride (98-107) mEq/L Carbon Dioxide (21-32) mEq/L Anion Gap (5-15) BUN (7-18) mg/dL Creatinine (0.7-1.3) mg/dL Est Cr Clr Drug Dosing mL/min Estimated GFR (MDRD) (>60) mL/min BUN/Creatinine Ratio (14-18) Glucose (74-106) mg/dL POC Glucose 304 H 348 H (70-105) mg/dL Hemoglobin A1c (4.50-6.20) % Calcium (8.5-10.1) mg/dL Phosphorus (2.6-4.7) mg/dL Magnesium (1.8-2.4) mg/dl Total Bilirubin (0.2-1.0) mg/dL AST (15-37) U/L ALT (16-63) U/L Alkaline Phosphatase (46-116) U/L Total Protein (6.4-8.2) g/dl Albumin (3.4-5.0) g/dl Globulin gm/dL Albumin/Globulin Ratio (1-2) Ketones (0.0-0.3) mM Rosalio Results Last 24 Hours: Microbiology 08/03/20 16:40 Aerobic Blood Culture - Preliminary Blood - Venous - Lab Draw NO GROWTH AFTER 1 DAY Anaerobic Blood Culture - Preliminary NO GROWTH AFTER 1 DAY 08/03/20 16:32 Aerobic Blood Culture - Preliminary Blood - Venous NO GROWTH AFTER 1 DAY Anaerobic Blood Culture - Preliminary NO GROWTH AFTER 1 DAY Med Orders - Current: Current Medications Acetaminophen (Tylenol) 650 mg PO Q4H PRN PRN Reason: Pain (Mild 1-3)/fever Insulin Human Regular 100 unit (/ Sodium Chloride) 100 mls @ 2.835 mls/hr IV TITRATE PRINCE; Protocol Last Titration: 08/04/20 15:28 Dose: 0.07 units/kg/hr, 4 mls/hr Documented by: Ondansetron HCl (Zofran) 4 mg IV Q4H PRN PRN Reason: Nausea/Vomiting Sodium Chloride (Saline Flush) 10 ml FLUSH ASDIRECTED PRN PRN Reason: Keep Vein Open Last Admin: 08/03/20 16:42 Dose: 10 ml Documented by: Discontinued Medications Sodium Chloride (Normal Saline) 1,000 mls @ 999 mls/hr IV ASDIRECTED [facility] Last Admin: 08/03/20 16:42 Dose: 999 mls/hr Documented by: Sodium Chloride (Normal Saline) 1,000 mls @ 999 mls/hr IV ONETIME ONE Stop: 08/03/20 17:49 Last Admin: 08/03/20 18:04 Dose: 999 mls/hr Documented by: Potassium Chloride/Sodium Chloride (Normal Saline With 20 Meq Kcl) 1,000 mls @ 250 mls/hr IV ASDIRECTED [facility] Potassium Chloride/Sodium Chloride (1/2 Ns With 20 Meq Kcl) 1,000 mls @ 250 mls/hr IV ASDIRECTED [facility] Last Admin: 08/03/20 20:23 Dose: 250 mls/hr Documented by: Magnesium Sulfate 4 gm/ Premix 50 mls @ 12.5 mls/hr IV ONETIME ONE Stop: 08/03/20 23:29 Last Admin: 08/03/20 20:27 Dose: 12.5 mls/hr Documented by: Potassium Chloride/Dextrose/Sod Cl (D5 1/2 Ns W/ 20 Meq/L Kcl) 1,000 mls @ 200 mls/hr IV ASDIRECTED [facility] Last Admin: 08/04/20 01:59 Dose: 150 mls/hr Documented by: Potassium Chloride 10 meq/ (Premix) 100 mls @ 100 mls/hr IV Q1H [facility] Stop: 08/04/20 00:59 Last Admin: 08/04/20 00:43 Dose: 100 mls/hr Documented by: Dextrose/Sodium Chloride (Dextrose 5%-1/2 Ns) 500 mls @ 200 mls/hr IV ASDIRECTED ONE Stop: 08/04/20 01:25 Last Infusion: 08/04/20 01:39 Dose: Infused Documented by: Magnesium Sulfate 4 gm/ Premix 50 mls @ 12.5 mls/hr IV ONETIME ONE Stop: 08/04/20 09:26 Last Admin: 08/04/20 05:49 Dose: 12.5 mls/hr Documented by: Potassium Phosphate 30 mmole/ (Sodium Chloride) 510 mls @ 102 mls/hr IV A SDIRECTED [facility] Stop: 08/04/20 13:14 Last Admin: 08/04/20 09:13 Dose: 102 mls/hr Documented by: Potassium Phosphate 30 mmole/ (Sodium Chloride) 510 mls @ 102 mls/hr IV ONETIME ONE Stop: 08/04/20 13:59 Last Admin: 08/04/20 09:29 Dose: Not Given Documented by: Ondansetron HCl (Zofran) 4 mg IVPUSH ONETIME ONE Stop: 08/03/20 17:16 Last Admin: 08/03/20 18:08 Dose: 4 mg Documented by: - Exam Quality Assessment: No: Supplemental Oxygen General: Alert, Oriented HEENT: Pupils Equal, Mucous Membr. Moist/[place] Neck: Supple Lungs: Clear to Auscultation, Normal Respiratory Effort Cardiovascular: Regular Rate, Regular Rhythm GI/Abdominal Exam: Normal Bowel Sounds, Soft, Non-Tender, No Organomegaly, No Distention, No Abnormal Bruit Extremities: Normal Inspection, Normal Range of Motion, Non-Tender, No Pedal Edema, Normal Capillary Refill Skin: Warm, Dry, Intact Wound/Incisions: Healing Well Psy/Mental Status: Alert, Normal Affect, Normal Mood Sepsis Event Note - Evaluation Sepsis Screening Result: No Definite Risk - Focused Exam Vital Signs: Vital Signs Temp Resp BP Pulse Ox 08/04/20 20:00 97.2 F 16 133/94 H 100 08/04/20 16:00 97.2 F 16 135/92 H 98 08/04/20 13:00 97.2 F 16 125/97 H 99 - Problem List & Annotations (1) COVID-19 SNOMED Code(s): 819165760 Code(s): U07.1 - COVID-19 Status: Acute Current Visit: Yes (2) Diabetic ketoacidosis associated with type 1 diabetes mellitus SNOMED Code(s): 457301624, 880594052 Code(s): E10.10 - TYPE 1 DIABETES MELLITUS WITH KETOACIDOSIS WITHOUT COMA Status: Acute Current Visit: No Qualifiers: Diabetes mellitus complication detail: without coma Qualified Code(s): E10.10 - Type 1 diabetes mellitus with ketoacidosis without coma (3) Hypomagnesemia SNOMED Code(s): 995344554 Code(s): E83.42 - HYPOMAGNESEMIA Status: Acute Priority: High Current Visit: No - Problem List Review Problem List Initiated/Reviewed/Updated: Yes - My Orders Last 24 Hours: My Active Orders 08/03/20 20:11 Up With Assistance [RC] VTE/DVT Education [RC] Acetaminophen [TylenoL] 650 mg PO Q4H PRN Ondansetron [Zofran] 4 mg IV Q4H PRN Resuscitation Status Routine 08/03/20 20:12 Antiembolic Hose [OM.PC] Per Unit Routine 08/03/20 20:13 Antiembolic Devices [RC] 08/04/20 05:11 CXR [Chest 1V Frontal] [CR] AM 08/04/20 Breakfast ADA Diabetic [[place] [employer] Diet] [DIET] - Plan Plan:: Assessment Diabetic ketoacidosis in a type I diabetic with recurrent episodes of DKA * Patient diagnosed with COVID-19 2 days ago at the same time in the emergency department for DKA. * It appears patient's baseline insulin is inadequate for control. We will use insulin drip to calculate his daily insulin needs, switch him over to his insulin pump, and adjust his carb correction while he is here in the hospital. * COVID-19 * No respiratory symptoms. * On room air. * No treatment required at this time. * Chest x-ray shows no acute changes Anemia * Hemoglobin on admission 13.0 prior to fluid resuscitation. * No history of black tarry stools or hematochezia. * Likely secondary to anemia of chronic disease and iatrogenic blood draws Hypomagnesemia/hypophosphatemia/hypokalemia * Potassium 3.3, phosphorus 1.9, magnesium 2.1 * Likely secondary to DKA and poor nutrition. Plan * Admit to ICU * Switch back to insulin drip at this time. Will go back to his pump when blood sugars are below 200. * Diabetic diet today and adjust insulin requirements. * Plan is to get him better control on his pump prior to discharge. * Correct electrolyte imbalances * Monitor for worsening Covid symptoms. * VTE prophylaxis with compression stockings * CODE STATUS: Full code
[2020-08-05] MEDS ORDERED: Magnesium Sulfate/Water 4 GM in Premix Bag 1 BAG IV ONE (11:25)
--- NOTE | 2020-08-05 16:52 | PCM.PN ---
- General Info Date of Service: 08/05/20 Admission Dx/Problem (Free Text): Admission Diagnosis/Problem Admission Diagnosis/Problem Diabetic ketoacidosis Subjective Update: Patient's blood sugars have been very labile. We had to place him back on an IV Lasix drip to control his blood sugars yesterday. We were able to go back to his pump this morning, but had to increase the basal rate to 9 units an hour and corrected his insulin with several boluses throughout the day. His girlfriend brought in a new tubing and dispenser and he be changed legs which seem to make a difference towards the afternoon. Patient does feel well. He continues to be asymptomatic in regards to Covid Functional Status: Reports: Pain Controlled - Review of Systems General: Reports: No Symptoms HEENT: Reports: No Symptoms Pulmonary: Reports: No Symptoms Cardiovascular: Reports: No Symptoms Musculoskeletal: Reports: No Symptoms - Patient Data Vitals - Most Recent: Last Vital Signs Temp 97 F 08/05/20 11:44 Pulse 111 H 08/05/20 11:44 Resp 16 08/05/20 11:44 BP 134/88 08/05/20 12:42 Pulse Ox 99 08/05/20 11:44 Weight - Most Recent: 125 lb 3.561 oz I&O - Last 24 Hours: Intake & Output 08/05/20 08/05/20 08/05/20 06:59 14:59 22:59 Intake Total 850 420 360 Balance 850 420 360 Lab Results Last 24 Hours: Laboratory Results - last 24 hr 08/04/20 08/04/20 08/04/20 Range/Units 17:17 18:10 19:09 WBC (4.23-9.07) K/mm3 RBC (4.63-6.08) M/mm3 Hgb (13.7-17.5) gm/dl Hct (40.1-51.0) % MCV (79.0-92.2) fl MCH (25.7-32.2) pg MCHC (32.2-35.5) g/dl RDW Std Deviation (35.1-43.9) fL Plt Count (163-337) K/mm3 MPV (9.4-12.3) fl Neut % (Auto) (34.0-67.9) % Lymph % (Auto) (21.8-53.1) % [place] % (Auto) (5.3-12.2) % Eos % (Auto) (0.8-7.0) Baso % (Auto) (0.1-1.2) % Neut # (Auto) (1.78-5.38) K/mm3 Lymph # (Auto) (1.32-3.57) K/mm3 [place] # (Auto) (0.30-0.82) K/mm3 Eos # (Auto) (0.04-0.54) K/mm3 Baso # (Auto) (0.01-0.08) K/mm3 Sodium (136-145) mEq/L Potassium (3.5-5.1) mEq/L Chloride (98-107) mEq/L Carbon Dioxide (21-32) mEq/L Anion Gap (5-15) BUN (7-18) mg/dL Creatinine (0.7-1.3) mg/dL Est Cr Clr Drug Dosing mL/min Estimated GFR (MDRD) (>60) mL/min BUN/Creatinine Ratio (14-18) Glucose (74-106) mg/dL POC Glucose 367 H 320 H 304 H (70-105) mg/dL Calcium (8.5-10.1) mg/dL Phosphorus (2.6-4.7) mg/dL Magnesium (1.8-2.4) mg/dl Total Bilirubin (0.2-1.0) mg/dL AST (15-37) U/L ALT (16-63) U/L Alkaline Phosphatase (46-116) U/L Total Protein (6.4-8.2) g/dl Albumin (3.4-5.0) g/dl Globulin gm/dL Albumin/Globulin Ratio (1-2) 08/04/20 08/04/20 08/04/20 Range/Units 20:05 21:42 21:55 WBC (4.23-9.07) K/mm3 RBC (4.63-6.08) M/mm3 Hgb (13.7-17.5) gm/dl Hct (40.1-51.0) % MCV (79.0-92.2) fl MCH (25.7-32.2) pg MCHC (32.2-35.5) g/dl RDW Std Deviation (35.1-43.9) fL Plt Count (163-337) K/mm3 MPV (9.4-12.3) fl Neut % (Auto) (34.0-67.9) % Lymph % (Auto) (21.8-53.1) % [place] % (Auto) (5.3-12.2) % Eos % (Auto) (0.8-7.0) Baso % (Auto) (0.1-1.2) % Neut # (Auto) (1.78-5.38) K/mm3 Lymph # (Auto) (1.32-3.57) K/mm3 [place] # (Auto) (0.30-0.82) K/mm3 Eos # (Auto) (0.04-0.54) K/mm3 Baso # (Auto) (0.01-0.08) K/mm3 Sodium 137 (136-145) mEq/L Potassium 4.0 (3.5-5.1) mEq/L Chloride 102 (98-107) mEq/L Carbon Dioxide 28 (21-32) mEq/L Anion Gap 11.0 (5-15) BUN 8 (7-18) mg/dL Creatinine 1.0 (0.7-1.3) mg/dL Est Cr Clr Drug Dosing 95.88 mL/min Estimated GFR (MDRD) > 60 (>60) mL/min BUN/Creatinine Ratio 8.0 L (14-18) Glucose 88 (74-106) mg/dL POC Glucose 348 H 120 H (70-105) mg/dL Calcium 8.4 L (8.5-10.1) mg/dL Phosphorus 2.5 L (2.6-4.7) mg/dL Magnesium 1.8 (1.8-2.4) mg/dl Total Bilirubin 0.3 (0.2-1.0) mg/dL AST 15 (15-37) U/L ALT 28 (16-63) U/L Alkaline Phosphatase 82 (46-116) U/L Total Protein 6.3 L (6.4-8.2) g/dl Albumin 3.1 L (3.4-5.0) g/dl Globulin 3.2 gm/dL Albumin/Globulin Ratio 1.0 (1-2) 08/04/20 08/05/20 08/05/20 Range/Units 22:38 00:18 02:11 WBC (4.23-9.07) K/mm3 RBC (4.63-6.08) M/mm3 Hgb (13.7-17.5) gm/dl Hct (40.1-51.0) % MCV (79.0-92.2) fl MCH (25.7-32.2) pg MCHC (32.2-35.5) g/dl RDW Std Deviation (35.1-43.9) fL Plt Count (163-337) K/mm3 MPV (9.4-12.3) fl Neut % (Auto) (34.0-67.9) % Lymph % (Auto) (21.8-53.1) % [place] % (Auto) (5.3-12.2) % Eos % (Auto) (0.8-7.0) Baso % (Auto) (0.1-1.2) % Neut # (Auto) (1.78-5.38) K/mm3 Lymph # (Auto) (1.32-3.57) K/mm3 [place] # (Auto) (0.30-0.82) K/mm3 Eos # (Auto) (0.04-0.54) K/mm3 Baso # (Auto) (0.01-0.08) K/mm3 Sodium (136-145) mEq/L Potassium (3.5-5.1) mEq/L Chloride (98-107) mEq/L Carbon Dioxide (21-32) mEq/L Anion Gap (5-15) BUN (7-18) mg/dL Creatinine (0.7-1.3) mg/dL Est Cr Clr Drug Dosing mL/min Estimated GFR (MDRD) (>60) mL/min BUN/Creatinine Ratio (14-18) Glucose (74-106) mg/dL POC Glucose 176 H 324 H 292 H (70-105) mg/dL Calcium (8.5-10.1) mg/dL Phosphorus (2.6-4.7) mg/dL Magnesium (1.8-2.4) mg/dl Total Bilirubin (0.2-1.0) mg/dL AST (15-37) U/L ALT (16-63) U/L Alkaline Phosphatase (46-116) U/L Total Protein (6.4-8.2) g/dl Albumin (3.4-5.0) g/dl Globulin gm/dL Albumin/Globulin Ratio (1-2) 08/05/20 08/05/20 08/05/20 Range/Units 03:10 04:06 04:07 WBC 4.61 (4.23-9.07) K/mm3 RBC 4.22 L (4.63-6.08) M/mm3 Hgb 11.3 L (13.7-17.5) gm/dl Hct 33.0 L (40.1-51.0) % MCV 78.2 L (79.0-92.2) fl MCH 26.8 (25.7-32.2) pg MCHC 34.2 (32.2-35.5) g/dl RDW Std Deviation 37.2 (35.1-43.9) fL Plt Count 193 (163-337) K/mm3 MPV 9.1 L (9.4-12.3) fl Neut % (Auto) 49.1 (34.0-67.9) % Lymph % (Auto) 42.3 (21.8-53.1) % [place] % (Auto) 6.7 (5.3-12.2) % Eos % (Auto) 1.3 (0.8-7.0) Baso % (Auto) 0.2 (0.1-1.2) % Neut # (Auto) 2.26 (1.78-5.38) K/mm3 Lymph # (Auto) 1.95 (1.32-3.57) K/mm3 [place] # (Auto) 0.31 (0.30-0.82) K/mm3 Eos # (Auto) 0.06 (0.04-0.54) K/mm3 Baso # (Auto) 0.01 (0.01-0.08) K/mm3 Sodium (136-145) mEq/L Potassium (3.5-5.1) mEq/L Chloride (98-107) mEq/L Carbon Dioxide (21-32) mEq/L Anion Gap (5-15) BUN (7-18) mg/dL Creatinine (0.7-1.3) mg/dL Est Cr Clr Drug Dosing mL/min Estimated GFR (MDRD) (>60) mL/min BUN/Creatinine Ratio (14-18) Glucose (74-106) mg/dL POC Glucose 256 H 293 H (70-105) mg/dL Calcium (8.5-10.1) mg/dL Phosphorus (2.6-4.7) mg/dL Magnesium (1.8-2.4) mg/dl Total Bilirubin (0.2-1.0) mg/dL AST (15-37) U/L ALT (16-63) U/L Alkaline Phosphatase (46-116) U/L Total Protein (6.4-8.2) g/dl Albumin (3.4-5.0) g/dl Globulin gm/dL Albumin/Globulin Ratio (1-2) 08/05/20 08/05/20 08/05/20 Range/Units 04:07 05:12 06:02 WBC (4.23-9.07) K/mm3 RBC (4.63-6.08) M/mm3 Hgb (13.7-17.5) gm/dl Hct (40.1-51.0) % MCV (79.0-92.2) fl MCH (25.7-32.2) pg MCHC (32.2-35.5) g/dl RDW Std Deviation (35.1-43.9) fL Plt Count (163-337) K/mm3 MPV (9.4-12.3) fl Neut % (Auto) (34.0-67.9) % Lymph % (Auto) (21.8-53.1) % [place] % (Auto) (5.3-12.2) % Eos % (Auto) (0.8-7.0) Baso % (Auto) (0.1-1.2) % Neut # (Auto) (1.78-5.38) K/mm3 Lymph # (Auto) (1.32-3.57) K/mm3 [place] # (Auto) (0.30-0.82) K/mm3 Eos # (Auto) (0.04-0.54) K/mm3 Baso # (Auto) (0.01-0.08) K/mm3 Sodium 134 L (136-145) mEq/L Potassium 3.9 (3.5-5.1) mEq/L Chloride 101 (98-107) mEq/L Carbon Dioxide 23 (21-32) mEq/L Anion Gap 13.9 (5-15) BUN 10 (7-18) mg/dL Creatinine 0.8 (0.7-1.3) mg/dL Est Cr Clr Drug Dosing 115.38 mL/min Estimated GFR (MDRD) > 60 (>60) mL/min BUN/Creatinine Ratio 12.5 L (14-18) Glucose 275 H (74-106) mg/dL POC Glucose 312 H 336 H (70-105) mg/dL Calcium 8.1 L (8.5-10.1) mg/dL Phosphorus 2.8 (2.6-4.7) mg/dL Magnesium 1.6 L (1.8-2.4) mg/dl Total Bilirubin 0.4 (0.2-1.0) mg/dL AST 19 (15-37) U/L ALT 25 (16-63) U/L Alkaline Phosphatase 74 (46-116) U/L Total Protein 5.8 L (6.4-8.2) g/dl Albumin 2.8 L (3.4-5.0) g/dl Globulin 3.0 gm/dL Albumin/Globulin Ratio 0.9 L (1-2) 08/05/20 08/05/20 08/05/20 Range/Units 07:00 08:02 09:07 WBC (4.23-9.07) K/mm3 RBC (4.63-6.08) M/mm3 Hgb (13.7-17.5) gm/dl Hct (40.1-51.0) % MCV (79.0-92.2) fl MCH (25.7-32.2) pg MCHC (32.2-35.5) g/dl RDW Std Deviation (35.1-43.9) fL Plt Count (163-337) K/mm3 MPV (9.4-12.3) fl Neut % (Auto) (34.0-67.9) % Lymph % (Auto) (21.8-53.1) % [place] % (Auto) (5.3-12.2) % Eos % (Auto) (0.8-7.0) Baso % (Auto) (0.1-1.2) % Neut # (Auto) (1.78-5.38) K/mm3 Lymph # (Auto) (1.32-3.57) K/mm3 [place] # (Auto) (0.30-0.82) K/mm3 Eos # (Auto) (0.04-0.54) K/mm3 Baso # (Auto) (0.01-0.08) K/mm3 Sodium (136-145) mEq/L Potassium (3.5-5.1) mEq/L Chloride (98-107) mEq/L Carbon Dioxide (21-32) mEq/L Anion Gap (5-15) BUN (7-18) mg/dL Creatinine (0.7-1.3) mg/dL Est Cr Clr Drug Dosing mL/min Estimated GFR (MDRD) (>60) mL/min BUN/Creatinine Ratio (14-18) Glucose (74-106) mg/dL POC Glucose 285 H 274 H 322 H (70-105) mg/dL Calcium (8.5-10.1) mg/dL Phosphorus (2.6-4.7) mg/dL Magnesium (1.8-2.4) mg/dl Total Bilirubin (0.2-1.0) mg/dL AST (15-37) U/L ALT (16-63) U/L Alkaline Phosphatase (46-116) U/L Total Protein (6.4-8.2) g/dl Albumin (3.4-5.0) g/dl Globulin gm/dL Albumin/Globulin Ratio (1-2) 08/05/20 08/05/20 08/05/20 Range/Units 10:43 12:00 13:19 WBC (4.23-9.07) K/mm3 RBC (4.63-6.08) M/mm3 Hgb (13.7-17.5) gm/dl Hct (40.1-51.0) % MCV (79.0-92.2) fl MCH (25.7-32.2) pg MCHC (32.2-35.5) g/dl RDW Std Deviation (35.1-43.9) fL Plt Count (163-337) K/mm3 MPV (9.4-12.3) fl Neut % (Auto) (34.0-67.9) % Lymph % (Auto) (21.8-53.1) % [place] % (Auto) (5.3-12.2) % Eos % (Auto) (0.8-7.0) Baso % (Auto) (0.1-1.2) % Neut # (Auto) (1.78-5.38) K/mm3 Lymph # (Auto) (1.32-3.57) K/mm3 [place] # (Auto) (0.30-0.82) K/mm3 Eos # (Auto) (0.04-0.54) K/mm3 Baso # (Auto) (0.01-0.08) K/mm3 Sodium (136-145) mEq/L Potassium (3.5-5.1) mEq/L Chloride (98-107) mEq/L Carbon Dioxide (21-32) mEq/L Anion Gap (5-15) BUN (7-18) mg/dL Creatinine (0.7-1.3) mg/dL Est Cr Clr Drug Dosing mL/min Estimated GFR (MDRD) (>60) mL/min BUN/Creatinine Ratio (14-18) Glucose 480 H (74-106) mg/dL POC Glucose 397 H 353 H (70-105) mg/dL Calcium (8.5-10.1) mg/dL Phosphorus (2.6-4.7) mg/dL Magnesium (1.8-2.4) mg/dl Total Bilirubin (0.2-1.0) mg/dL AST (15-37) U/L ALT (16-63) U/L Alkaline Phosphatase (46-116) U/L Total Protein (6.4-8.2) g/dl Albumin (3.4-5.0) g/dl Globulin gm/dL Albumin/Globulin Ratio (1-2) 08/05/20 08/05/20 Range/Units 15:09 16:16 WBC (4.23-9.07) K/mm3 RBC (4.63-6.08) M/mm3 Hgb (13.7-17.5) gm/dl Hct (40.1-51.0) % MCV (79.0-92.2) fl MCH (25.7-32.2) pg MCHC (32.2-35.5) g/dl RDW Std Deviation (35.1-43.9) fL Plt Count (163-337) K/mm3 MPV (9.4-12.3) fl Neut % (Auto) (34.0-67.9) % Lymph % (Auto) (21.8-53.1) % [place] % (Auto) (5.3-12.2) % Eos % (Auto) (0.8-7.0) Baso % (Auto) (0.1-1.2) % Neut # (Auto) (1.78-5.38) K/mm3 Lymph # (Auto) (1.32-3.57) K/mm3 [place] # (Auto) (0.30-0.82) K/mm3 Eos # (Auto) (0.04-0.54) K/mm3 Baso # (Auto) (0.01-0.08) K/mm3 Sodium (136-145) mEq/L Potassium (3.5-5.1) mEq/L Chloride (98-107) mEq/L Carbon Dioxide (21-32) mEq/L Anion Gap (5-15) BUN (7-18) mg/dL Creatinine (0.7-1.3) mg/dL Est Cr Clr Drug Dosing mL/min Estimated GFR (MDRD) (>60) mL/min BUN/Creatinine Ratio (14-18) Glucose (74-106) mg/dL POC Glucose 291 H 204 H (70-105) mg/dL Calcium (8.5-10.1) mg/dL Phosphorus (2.6-4.7) mg/dL Magnesium (1.8-2.4) mg/dl Total Bilirubin (0.2-1.0) mg/dL AST (15-37) U/L ALT (16-63) U/L Alkaline Phosphatase (46-116) U/L Total Protein (6.4-8.2) g/dl Albumin (3.4-5.0) g/dl Globulin gm/dL Albumin/Globulin Ratio (1-2) Rosalio Results Last 24 Hours: Microbiology 08/03/20 16:40 Aerobic Blood Culture - Preliminary Blood - Venous - Lab Draw NO GROWTH AFTER 1 DAY Anaerobic Blood Culture - Preliminary NO GROWTH AFTER 1 DAY 08/03/20 16:32 Aerobic Blood Culture - Preliminary Blood - Venous NO GROWTH AFTER 1 DAY Anaerobic Blood Culture - Preliminary NO GROWTH AFTER 1 DAY Med Orders - Current: Current Medications Acetaminophen (Tylenol) 650 mg PO Q4H PRN PRN Reason: Pain (Mild 1-3)/fever Insulin Human Regular 100 unit (/ Sodium Chloride) 100 mls @ 2.835 mls/hr IV TITRATE [facility]; Protocol Last Titration: 08/04/20 21:42 Dose: 0 units/kg/hr, 0 mls/hr Documented by: Ondansetron HCl (Zofran) 4 mg IV Q4H PRN PRN Reason: Nausea/Vomiting Sodium Chloride (Saline Flush) 10 ml FLUSH ASDIRECTED PRN PRN Reason: Keep Vein Open Last Admin: 08/03/20 16:42 Dose: 10 ml Documented by: Discontinued Medications Sodium Chloride (Normal Saline) 1,000 mls @ 999 mls/hr IV ASDIRECTED [facility] Last Admin: 08/03/20 16:42 Dose: 999 mls/hr Documented by: Sodium Chloride (Normal Saline) 1,000 mls @ 999 mls/hr IV ONETIME ONE Stop: 08/03/20 17:49 Last Admin: 08/03/20 18:04 Dose: 999 mls/hr Documented by: Potassium Chloride/Sodium Chloride (Normal Saline With 20 Meq Kcl) 1,000 mls @ 250 mls/hr IV ASDIRECTED [facility] Potassium Chloride/Sodium Chloride (1/2 Ns With 20 Meq Kcl) 1,000 mls @ 250 mls/hr IV ASDIRECTED [facility] Last Admin: 08/03/20 20:23 Dose: 250 mls/hr Documented by: Magnesium Sulfate 4 gm/ Premix 50 mls @ 12.5 mls/hr IV ONETIME ONE Stop: 08/03/20 23:29 Last Admin: 08/03/20 20:27 Dose: 12.5 mls/hr Documented by: Potassium Chloride/Dextrose/Sod Cl (D5 1/2 Ns W/ 20 Meq/L Kcl) 1,000 mls @ 200 mls/hr IV ASDIRECTED [facility] Last Admin: 08/04/20 01:59 Dose: 150 mls/hr Documented by: Potassium Chloride 10 meq/ (Premix) 100 mls @ 100 mls/hr IV Q1H [facility] Stop: 08/04/20 00:59 Last Admin: 08/04/20 00:43 Dose: 100 mls/hr Documented by: Dextrose/Sodium Chloride (Dextrose 5%-1/2 Ns) 500 mls @ 200 mls/hr IV ASDIRECTED ONE Stop: 08/04/20 01:25 Last Infusion: 08/04/20 01:39 Dose: Infused Documented by: Magnesium Sulfate 4 gm/ Premix 50 mls @ 12.5 mls/hr IV ONETIME ONE Stop: 08/04/20 09:26 Last Admin: 08/04/20 05:49 Dose: 12.5 mls/hr Documented by: Potassium Phosphate 30 mmole/ (Sodium Chloride) 510 mls @ 102 mls/hr IV ASDIRECTED [facility] Stop: 08/04/20 13:14 Last Admin: 08/04/20 09:13 Dose: 102 mls/hr Documented by: Potassium Phosphate 30 mmole/ (Sodium Chloride) 510 mls @ 102 mls/hr IV ONETIME ONE Stop: 08/04/20 13:59 Last Admin: 08/04/20 09:29 Dose: Not Given Documented by: Magnesium Sulfate 4 gm/ Premix 50 mls @ 12.5 mls/hr IV ONETIME ONE Stop: 08/05/20 15:24 Last Admin: 08/05/20 11:33 Dose: 12.5 mls/hr Documented by: Ondansetron HCl (Zofran) 4 mg IVPUSH ONETIME ONE Stop: 08/03/20 17:16 Last Admin: 08/03/20 18:08 Dose: 4 mg Documented by: - Exam Quality Assessment: No: Supplemental Oxygen General: Alert, Oriented HEENT: Pupils Equal, Mucous Membr. Moist/[place] Neck: Supple Lungs: Clear to Auscultation, Normal Respiratory Effort Cardiovascular: Regular Rate, Regular Rhythm GI/Abdominal Exam: Normal Bowel Sounds, Soft, Non-Tender, No Distention Extremities: Normal Inspection, Normal Range of Motion, Non-Tender, No Pedal Edema, Normal Capillary Refill Sepsis Event Note - Evaluation Sepsis Screening Result: No Definite Risk - Focused Exam Vital Signs: Vital Signs Temp Pulse Resp BP Pulse Ox 08/05/20 12:42 134/88 08/05/20 11:44 97 F 111 H 16 134/88 99 08/05/20 07:22 97.0 F 69 16 135/98 H 100 - Problem List & Annotations (1) COVID-19 SNOMED Code(s): 671526737 Code(s): U07.1 - COVID-19 Status: Acute Current Visit: Yes (2) Diabetic ketoacidosis associated with type 1 diabetes mellitus SNOMED Code(s): 020836599, 137368038 Code(s): E10.10 - TYPE 1 DIABETES MELLITUS WITH KETOACIDOSIS WITHOUT COMA Status: Resolved Current Visit: No Qualifiers: Diabetes mellitus complication detail: without coma Qualified Code(s): E10.10 - Type 1 diabetes mellitus with ketoacidosis without coma (3) Hypomagnesemia SNOMED Code(s): 395720786 Code(s): E83.42 - HYPOMAGNESEMIA Status: Acute Priority: High Current Visit: No (4) Poorly controlled type 1 diabetes mellitus Status: Acute Current Visit: Yes - Problem List Review Problem List Initiated/Reviewed/Updated: Yes - Plan Plan:: Assessment Diabetic ketoacidosis in a type I diabetic with recurrent episodes of DKAresolved Poorly controlled diabetes type 1 * Patient has significantly elevated need in insulin, basal and bolus, while hospitalized. DKA has resolved 24 hours ago, therefore this is not likely contributing to the increased insulin needs. It appears his basal insulin has been grossly underdosed at 2 units/h based on your seen here and a hemoglobin A1c greater than 12. COVID-19 * No respiratory symptoms. * On room air. * No treatment required at this time. * Chest x-ray shows no acute changes Anemia * Hemoglobin on admission 13.0 prior to fluid resuscitation. * Hemoglobin 11.3 this morning * No history of black tarry stools or hematochezia. * Likely secondary to anemia of chronic disease and iatrogenic blood draws Hypomagnesemia/hypophosphatemia/hypokalemia/hypoalbuminemia * Potassium 3.9, phosphorus 2.8, magnesium 1.6, albumin 2.8 * Likely secondary to DKA and poor nutrition. Plan * Admit to ICU * Patient will be kept in the hospital for another day to help titrate his insulin requirements. We are doing this to help decrease the likelihood of returning in DKA. He does seem to have had some improvement moving sites of injection. * Diabetic diet * Diabetic education * Correct electrolyte imbalances * Monitor for worsening Covid symptoms. * VTE prophylaxis with compression stockings * CODE STATUS: Full code
[2020-08-05 18:44] VITALS: PULSE 99
[2020-08-06 08:29] VITALS: BP 133/99
--- NOTE | 2020-08-06 14:21 | CR ---
PROCEDURE INFORMATION: Exam: XR Chest, 1 View Exam date and time: 08/04/2020 6:54 AM Age: 25 years old Clinical indication: Condition or disease; Other: Covid-19 positive TECHNIQUE: Imaging protocol: XR of the chest Views: 1 view. COMPARISON: DX Chest 2V 05/04/2020 10:33 PM FINDINGS: Lungs: Unremarkable. No consolidation. Pleural space: Unremarkable. No pleural effusion. No pneumothorax. Heart/Mediastinum: Unremarkable. No cardiomegaly. Bones/joints: Unremarkable. IMPRESSION: No acute findings. Thank you for allowing us to participate in the care of your patient. Dictated and Authenticated by: Connor Garrett MD 08/04/2020 8:51 AM Central Time ([place] & [place]) [place]
--- NOTE | 2020-08-06 14:55 | PCM.DCSUM1 ---
Discharge Summary - Hospital Course HPI Initial Comments: 25-year-old male well-known to the hospital service came to the emergency department with increasing weakness, vomiting this morning, and myalgias. Patient was seen in the emergency department 2 days ago and treated for DKA. There were no beds available in the hospital and treatment was given over 24 hours in the emergency department. Patient at that time was diagnosed with COVID-19, but he had no symptoms. He has been quarantining, [facility] their [facility] to the vet. Patient had increasing pain all over and asked her to bring him to the emergency department. Patient does believe he has been symptomatic for approximately 1 week. Initially in the ER his temperature was 98.0 Fahrenheit, respiratory rate of 20, pulse of 108, and blood pressure of 105/57 with oxygen saturations of 100% on room air. Glucose in the emergency department at triage was over 400. On serum blood work his glucose was 617 with ketones over 9, bicarb 15, anion gap 29, venous blood gas pH of 7.36. Of note patient's hemoglobin is also low at 13.0. Patient was given 2 L fluid bolus, started on half-normal saline with 20 of KCl at 250 mL an hour, had insulin bolus and placed on insulin drip and transferred to the unit. On arrival at the ICU his [id number] glucose was 287. Magnesium came down to 1.5 and bicarb decreased to 14. Assessment Diabetic ketoacidosis in a type I diabetic with recurrent episodes of DKA * Patient diagnosed with COVID-19 2 days ago at the same time in the emergency department for DKA. * Patient developed abdominal pain this morning and vomiting. He did not check his blood sugars. He uses an insulin pump. * Developed myalgias over the afternoon and presented to the emergency department with blood sugars above 600 and ketones above 9. * Given fluid resuscitation in the emergency department, insulin bolus, and insulin drip. COVID-19 * No respiratory symptoms. * On room air. * No treatment required at this time. Anemia * Hemoglobin on admission 13.0 prior to fluid resuscitation. * No history of black tarry stools or hematochezia. * Likely secondary to anemia of chronic disease and iatrogenic Hypomagnesemia * Initial magnesium 1.6 and repeat 1.5. * Likely secondary to DKA and poor nutrition. Plan * Admit to ICU * When blood sugars are around 200 switch to D5 half-normal saline with 20 mEq of KCl per liter at between 150 and 200. * Fingerstick blood sugar every 1 hour * Metabolic panel every 2 to 4 hours with magnesium and phosphorus * Correct electrolyte imbalances * Insulin drip per protocol * Monitor for worsening Covid symptoms. * Chest x-ray in the morning. * Hemoglobin A1c in the morning. * VTE prophylaxis with compression stockings * CODE STATUS: Full code Diagnosis: Stroke: No - Discharge Data Discharge Date: 08/06/20 Discharge Disposition: Home, Self-Care 01 Condition: Good - Referral to Home Health Primary Care Physician: Faina Frost NP - Discharge Diagnosis/Problem(s) (1) COVID-19 SNOMED Code(s): 939549605 ICD Code: U07.1 - COVID-19 Status: Acute Current Visit: Yes (2) Diabetic ketoacidosis associated with type 1 diabetes mellitus SNOMED Code(s): 719906246, 509714353 ICD Code: E10.10 - TYPE 1 DIABETES MELLITUS WITH KETOACIDOSIS WITHOUT COMA Status: Resolved Current Visit: Yes Qualifiers: Diabetes mellitus complication detail: without coma Qualified Code(s): E10.10 - Type 1 diabetes mellitus with ketoacidosis without coma (3) Hypomagnesemia SNOMED Code(s): 906936480 ICD Code: E83.42 - HYPOMAGNESEMIA Status: Acute Priority: High Current Visit: Yes (4) Poorly controlled type 1 diabetes mellitus Status: Acute Current Visit: Yes - Patient Summary/Data Hospital Course: Patient did well on DKA protocol. He had some difficulty transitioning from insulin drip to his insulin pump. Patient was kept an extra day to try to better regulate his blood sugars. His hemoglobin A1c was 12.2. He does not check his blood sugars regularly at home. Patient was very hard to regulate using his insulin pump. It appears in the evenings he needs a low dose of insulin of 2 units/h, but during the day it went as high as 9 units an hour. Patient is a very good candidate for continuous blood glucose monitoring. He may also be having some increasing trouble secondary to COVID-19, but based on his hemoglobin A1c it appears to be a more chronic condition. He was counseled on the above and will follow up with his primary care provider and diabetic education. - Patient Instructions Diet: Diabetic Diet Driving: May Drive Today Showering/Bathing: May Shower Notify Provider of: Fever, Nausea and/or Vomiting Other/Special Instructions: Follow-up with primary care provider and nurse informatics educator this week. - Discharge Plan *PRESCRIPTION DRUG MONITORING PROGRAM REVIEWED*: No *COPY OF PRESCRIPTION DRUG MONITORING REPORT IN PATIENT LENNOX: No Home Medications: Home Meds Insulin Pump/Infus. Set/Meter [Accu-Chek Combo System] 0 unit SQ ASDIRECTED [History] Fluticasone Propionate [Flovent HFA 110 MCG] 2 puff INH BID 08/03/20 [History] Patient Handouts: COVID-19, Type 1 Diabetes Mellitus, Diagnosis, Adult, Steps to Quit Smoking Forms: ED Department Discharge Referrals: Faina Frost NP [Primary Care Provider] - - Discharge Summary/Plan Comment DC Time >30 min.: Yes - General Info Date of Service: 08/06/20 Admission Dx/Problem (Free Text: Admission Diagnosis/Problem Admission Diagnosis/Problem Diabetic ketoacidosis Subjective Update: Patient states he is feeling well. He is doing much better. Functional Status: Reports: Pain Controlled - Review of Systems General: Reports: No Symptoms HEENT: Reports: No Symptoms Pulmonary: Reports: No Symptoms Cardiovascular: Reports: No Symptoms Gastrointestinal: Reports: No Symptoms Musculoskeletal: Reports: No Symptoms - Patient Data Vitals - Most Recent: Last Vital Signs Temp 97.1 F 08/06/20 08:29 Pulse 99 08/05/20 16:00 Resp 19 08/06/20 08:29 BP 133/99 H 08/06/20 08:29 Pulse Ox 98 08/06/20 08:29 Weight - Most Recent: 126 lb 8.725 oz I&O - Last 24 hours: Intake & Output 08/05/20 08/06/20 08/06/20 22:59 06:59 14:59 Intake Total 1570 360 Balance 1570 360 Lab Results - Last 24 hrs: Laboratory Results - last 24 hr 08/05/20 08/05/20 08/05/20 Range/Units 15:09 16:16 17:06 WBC (4.23-9.07) K/mm3 RBC (4.63-6.08) M/mm3 Hgb (13.7-17.5) gm/dl Hct (40.1-51.0) % MCV (79.0-92.2) fl MCH (25.7-32.2) pg MCHC (32.2-35.5) g/dl RDW Std Deviation (35.1-43.9) fL Plt Count (163-337) K/mm3 MPV (9.4-12.3) fl Neut % (Auto) (34.0-67.9) % Lymph % (Auto) (21.8-53.1) % [place] % (Auto) (5.3-12.2) % Eos % (Auto) (0.8-7.0) Baso % (Auto) (0.1-1.2) % Neut # (Auto) (1.78-5.38) K/mm3 Lymph # (Auto) (1.32-3.57) K/mm3 [place] # (Auto) (0.30-0.82) K/mm3 Eos # (Auto) (0.04-0.54) K/mm3 Baso # (Auto) (0.01-0.08) K/mm3 Sodium (136-145) mEq/L Potassium (3.5-5.1) mEq/L Chloride (98-107) mEq/L Carbon Dioxide (21-32) mEq/L Anion Gap (5-15) BUN (7-18) mg/dL Creatinine (0.7-1.3) mg/dL Est Cr Clr Drug Dosing mL/min Estimated GFR (MDRD) (>60) mL/min BUN/Creatinine Ratio (14-18) Glucose (74-106) mg/dL POC Glucose 291 H 204 H 120 H (70-105) mg/dL Calcium (8.5-10.1) mg/dL Phosphorus (2.6-4.7) mg/dL Magnesium (1.8-2.4) mg/dl Total Bilirubin (0.2-1.0) mg/dL AST (15-37) U/L ALT (16-63) U/L Alkaline Phosphatase (46-116) U/L Total Protein (6.4-8.2) g/dl Albumin (3.4-5.0) g/dl Globulin gm/dL Albumin/Globulin Ratio (1-2) 08/05/20 08/05/20 08/05/20 Range/Units 18:08 19:17 20:08 WBC (4.23-9.07) K/mm3 RBC (4.63-6.08) M/mm3 Hgb (13.7-17.5) gm/dl Hct (40.1-51.0) % MCV (79.0-92.2) fl MCH (25.7-32.2) pg MCHC (32.2-35.5) g/dl RDW Std Deviation (35.1-43.9) fL Plt Count (163-337) K/mm3 MPV (9.4-12.3) fl Neut % (Auto) (34.0-67.9) % Lymph % (Auto) (21.8-53.1) % [place] % (Auto) (5.3-12.2) % Eos % (Auto) (0.8-7.0) Baso % (Auto) (0.1-1.2) % Neut # (Auto) (1.78-5.38) K/mm3 Lymph # (Auto) (1.32-3.57) K/mm3 [place] # (Auto) (0.30-0.82) K/mm3 Eos # (Auto) (0.04-0.54) K/mm3 Baso # (Auto) (0.01-0.08) K/mm3 Sodium (136-145) mEq/L Potassium (3.5-5.1) mEq/L Chloride (98-107) mEq/L Carbon Dioxide (21-32) mEq/L Anion Gap (5-15) BUN (7-18) mg/dL Creatinine (0.7-1.3) mg/dL Est Cr Clr Drug Dosing mL/min Estimated GFR (MDRD) (>60) mL/min BUN/Creatinine Ratio (14-18) Glucose (74-106) mg/dL POC Glucose 169 H 96 89 (70-105) mg/dL Calcium (8.5-10.1) mg/dL Phosphorus (2.6-4.7) mg/dL Magnesium (1.8-2.4) mg/dl Total Bilirubin (0.2-1.0) mg/dL AST (15-37) U/L ALT (16-63) U/L Alkaline Phosphatase (46-116) U/L Total Protein (6.4-8.2) g/dl Albumin (3.4-5.0) g/dl Globulin gm/dL Albumin/Globulin Ratio (1-2) 08/05/20 08/05/20 08/06/20 Range/Units 21:00 23:03 01:23 WBC (4.23-9.07) K/mm3 RBC (4.63-6.08) M/mm3 Hgb (13.7-17.5) gm/dl Hct (40.1-51.0) % MCV (79.0-92.2) fl MCH (25.7-32.2) pg MCHC (32.2-35.5) g/dl RDW Std Deviation (35.1-43.9) fL Plt Count (163-337) K/mm3 MPV (9.4-12.3) fl Neut % (Auto) (34.0-67.9) % Lymph % (Auto) (21.8-53.1) % [place] % (Auto) (5.3-12.2) % Eos % (Auto) (0.8-7.0) Baso % (Auto) (0.1-1.2) % Neut # (Auto) (1.78-5.38) K/mm3 Lymph # (Auto) (1.32-3.57) K/mm3 [place] # (Auto) (0.30-0.82) K/mm3 Eos # (Auto) (0.04-0.54) K/mm3 Baso # (Auto) (0.01-0.08) K/mm3 Sodium (136-145) mEq/L Potassium (3.5-5.1) mEq/L Chloride (98-107) mEq/L Carbon Dioxide (21-32) mEq/L Anion Gap (5-15) BUN (7-18) mg/dL Creatinine (0.7-1.3) mg/dL Est Cr Clr Drug Dosing mL/min Estimated GFR (MDRD) (>60) mL/min BUN/Creatinine Ratio (14-18) Glucose (74-106) mg/dL POC Glucose 116 H 93 80 (70-105) mg/dL Calcium (8.5-10.1) mg/dL Phosphorus (2.6-4.7) mg/dL Magnesium (1.8-2.4) mg/dl Total Bilirubin (0.2-1.0) mg/dL AST (15-37) U/L ALT (16-63) U/L Alkaline Phosphatase (46-116) U/L Total Protein (6.4-8.2) g/dl Albumin (3.4-5.0) g/dl Globulin gm/dL Albumin/Globulin Ratio (1-2) 08/06/20 08/06/20 08/06/20 Range/Units 01:45 02:00 02:19 WBC (4.23-9.07) K/mm3 RBC (4.63-6.08) M/mm3 Hgb (13.7-17.5) gm/dl Hct (40.1-51.0) % MCV (79.0-92.2) fl MCH (25.7-32.2) pg MCHC (32.2-35.5) g/dl RDW Std Deviation (35.1-43.9) fL Plt Count (163-337) K/mm3 MPV (9.4-12.3) fl Neut % (Auto) (34.0-67.9) % Lymph % (Auto) (21.8-53.1) % [place] % (Auto) (5.3-12.2) % Eos % (Auto) (0.8-7.0) Baso % (Auto) (0.1-1.2) % Neut # (Auto) (1.78-5.38) K/mm3 Lymph # (Auto) (1.32-3.57) K/mm3 [place] # (Auto) (0.30-0.82) K/mm3 Eos # (Auto) (0.04-0.54) K/mm3 Baso # (Auto) (0.01-0.08) K/mm3 Sodium (136-145) mEq/L Potassium (3.5-5.1) mEq/L Chloride (98-107) mEq/L Carbon Dioxide (21-32) mEq/L Anion Gap (5-15) BUN (7-18) mg/dL Creatinine (0.7-1.3) mg/dL Est Cr Clr Drug Dosing mL/min Estimated GFR (MDRD) (>60) mL/min BUN/Creatinine Ratio (14-18) Glucose (74-106) mg/dL POC Glucose 82 81 93 (70-105) mg/dL Calcium (8.5-10.1) mg/dL Phosphorus (2.6-4.7) mg/dL Magnesium (1.8-2.4) mg/dl Total Bilirubin (0.2-1.0) mg/dL AST (15-37) U/L ALT (16-63) U/L Alkaline Phosphatase (46-116) U/L Total Protein (6.4-8.2) g/dl Albumin (3.4-5.0) g/dl Globulin gm/dL Albumin/Globulin Ratio (1-2) 08/06/20 08/06/20 08/06/20 Range/Units 03:01 05:17 05:22 WBC 5.74 (4.23-9.07) K/mm3 RBC 4.69 (4.63-6.08) M/mm3 Hgb 12.6 L (13.7-17.5) gm/dl Hct 36.6 L (40.1-51.0) % MCV 78.0 L (79.0-92.2) fl MCH 26.9 (25.7-32.2) pg MCHC 34.4 (32.2-35.5) g/dl RDW Std Deviation 37.8 (35.1-43.9) fL Plt Count 230 (163-337) K/mm3 MPV 9.4 (9.4-12.3) fl Neut % (Auto) 53.2 (34.0-67.9) % Lymph % (Auto) 37.1 (21.8-53.1) % [place] % (Auto) 8.4 (5.3-12.2) % Eos % (Auto) 0.9 (0.8-7.0) Baso % (Auto) 0.2 (0.1-1.2) % Neut # (Auto) 3.06 (1.78-5.38) K/mm3 Lymph # (Auto) 2.13 (1.32-3.57) K/mm3 [place] # (Auto) 0.48 (0.30-0.82) K/mm3 Eos # (Auto) 0.05 (0.04-0.54) K/mm3 Baso # (Auto) 0.01 (0.01-0.08) K/mm3 Sodium (136-145) mEq/L Potassium (3.5-5.1) mEq/L Chloride (98-107) mEq/L Carbon Dioxide (21-32) mEq/L Anion Gap (5-15) BUN (7-18) mg/dL Creatinine (0.7-1.3) mg/dL Est Cr Clr Drug Dosing mL/min Estimated GFR (MDRD) (>60) mL/min BUN/Creatinine Ratio (14-18) Glucose (74-106) mg/dL POC Glucose 107 H 85 (70-105) mg/dL Calcium (8.5-10.1) mg/dL Phosphorus (2.6-4.7) mg/dL Magnesium (1.8-2.4) mg/dl Total Bilirubin (0.2-1.0) mg/dL AST (15-37) U/L ALT (16-63) U/L Alkaline Phosphatase (46-116) U/L Total Protein (6.4-8.2) g/dl Albumin (3.4-5.0) g/dl Globulin gm/dL Albumin/Globulin Ratio (1-2) 08/06/20 08/06/20 08/06/20 Range/Units 05:22 06:30 08:26 WBC (4.23-9.07) K/mm3 RBC (4.63-6.08) M/mm3 Hgb (13.7-17.5) gm/dl Hct (40.1-51.0) % MCV (79.0-92.2) fl MCH (25.7-32.2) pg MCHC (32.2-35.5) g/dl RDW Std Deviation (35.1-43.9) fL Plt Count (163-337) K/mm3 MPV (9.4-12.3) fl Neut % (Auto) (34.0-67.9) % Lymph % (Auto) (21.8-53.1) % [place] % (Auto) (5.3-12.2) % Eos % (Auto) (0.8-7.0) Baso % (Auto) (0.1-1.2) % Neut # (Auto) (1.78-5.38) K/mm3 Lymph # (Auto) (1.32-3.57) K/mm3 [place] # (Auto) (0.30-0.82) K/mm3 Eos # (Auto) (0.04-0.54) K/mm3 Baso # (Auto) (0.01-0.08) K/mm3 Sodium 139 (136-145) mEq/L Potassium 3.4 L (3.5-5.1) mEq/L Chloride 103 (98-107) mEq/L Carbon Dioxide 28 (21-32) mEq/L Anion Gap 11.4 (5-15) BUN 11 (7-18) mg/dL Creatinine 0.6 L (0.7-1.3) mg/dL Est Cr Clr Drug Dosing 155.46 mL/min Estimated GFR (MDRD) > 60 (>60) mL/min BUN/Creatinine Ratio 18.3 H (14-18) Glucose 77 (74-106) mg/dL POC Glucose 195 H 255 H (70-105) mg/dL Calcium 8.6 (8.5-10.1) mg/dL Phosphorus 4.5 (2.6-4.7) mg/dL Magnesium 1.9 (1.8-2.4) mg/dl Total Bilirubin 0.3 (0.2-1.0) mg/dL AST 19 (15-37) U/L ALT 27 (16-63) U/L Alkaline Phosphatase 74 (46-116) U/L Total Protein 6.6 (6.4-8.2) g/dl Albumin 3.1 L (3.4-5.0) g/dl Globulin 3.5 gm/dL Albumin/Globulin Ratio 0.9 L (1-2) 08/06/20 08/06/20 08/06/20 Range/Units 09:47 11:46 12:07 WBC (4.23-9.07) K/mm3 RBC (4.63-6.08) M/mm3 Hgb (13.7-17.5) gm/dl Hct (40.1-51.0) % MCV (79.0-92.2) fl MCH (25.7-32.2) pg MCHC (32.2-35.5) g/dl RDW Std Deviation (35.1-43.9) fL Plt Count (163-337) K/mm3 MPV (9.4-12.3) fl Neut % (Auto) (34.0-67.9) % Lymph % (Auto) (21.8-53.1) % [place] % (Auto) (5.3-12.2) % Eos % (Auto) (0.8-7.0) Baso % (Auto) (0.1-1.2) % Neut # (Auto) (1.78-5.38) K/mm3 Lymph # (Auto) (1.32-3.57) K/mm3 [place] # (Auto) (0.30-0.82) K/mm3 Eos # (Auto) (0.04-0.54) K/mm3 Baso # (Auto) (0.01-0.08) K/mm3 Sodium (136-145) mEq/L Potassium (3.5-5.1) mEq/L Chloride (98-107) mEq/L Carbon Dioxide (21-32) mEq/L Anion Gap (5-15) BUN (7-18) mg/dL Creatinine (0.7-1.3) mg/dL Est Cr Clr Drug Dosing mL/min Estimated GFR (MDRD) (>60) mL/min BUN/Creatinine Ratio (14-18) Glucose (74-106) mg/dL POC Glucose 199 H 59 L 78 (70-105) mg/dL Calcium (8.5-10.1) mg/dL Phosphorus (2.6-4.7) mg/dL Magnesium (1.8-2.4) mg/dl Total Bilirubin (0.2-1.0) mg/dL AST (15-37) U/L ALT (16-63) U/L Alkaline Phosphatase (46-116) U/L Total Protein (6.4-8.2) g/dl Albumin (3.4-5.0) g/dl Globulin gm/dL Albumin/Globulin Ratio (1-2) 08/06/20 Range/Units 13:24 WBC (4.23-9.07) K/mm3 RBC (4.63-6.08) M/mm3 Hgb (13.7-17.5) gm/dl Hct (40.1-51.0) % MCV (79.0-92.2) fl MCH (25.7-32.2) pg MCHC (32.2-35.5) g/dl RDW Std Deviation (35.1-43.9) fL Plt Count (163-337) K/mm3 MPV (9.4-12.3) fl Neut % (Auto) (34.0-67.9) % Lymph % (Auto) (21.8-53.1) % [place] % (Auto) (5.3-12.2) % Eos % (Auto) (0.8-7.0) Baso % (Auto) (0.1-1.2) % Neut # (Auto) (1.78-5.38) K/mm3 Lymph # (Auto) (1.32-3.57) K/mm3 [place] # (Auto) (0.30-0.82) K/mm3 Eos # (Auto) (0.04-0.54) K/mm3 Baso # (Auto) (0.01-0.08) K/mm3 Sodium (136-145) mEq/L Potassium (3.5-5.1) mEq/L Chloride (98-107) mEq/L Carbon Dioxide (21-32) mEq/L Anion Gap (5-15) BUN (7-18) mg/dL Creatinine (0.7-1.3) mg/dL Est Cr Clr Drug Dosing mL/min Estimated GFR (MDRD) (>60) mL/min BUN/Creatinine Ratio (14-18) Glucose (74-106) mg/dL POC Glucose 161 H (70-105) mg/dL Calcium (8.5-10.1) mg/dL Phosphorus (2.6-4.7) mg/dL Magnesium (1.8-2.4) mg/dl Total Bilirubin (0.2-1.0) mg/dL AST (15-37) U/L ALT (16-63) U/L Alkaline Phosphatase (46-116) U/L Total Protein (6.4-8.2) g/dl Albumin (3.4-5.0) g/dl Globulin gm/dL Albumin/Globulin Ratio (1-2) MEGAN Results - Last 24 hrs: Microbiology 08/03/20 16:40 Aerobic Blood Culture - Preliminary Blood - Venous - Lab Draw NO GROWTH AFTER 2 DAYS Anaerobic Blood Culture - Preliminary NO GROWTH AFTER 2 DAYS 08/03/20 16:32 Aerobic Blood Culture - Preliminary Blood - Venous NO GROWTH AFTER 2 DAYS Anaerobic Blood Culture - Preliminary NO GROWTH AFTER 2 DAYS Med Orders - Current: Current Medications Acetaminophen (Tylenol) 650 mg PO Q4H PRN PRN Reason: Pain (Mild 1-3)/fever Insulin Human Regular 100 unit (/ Sodium Chloride) 100 mls @ 2.835 mls/hr IV TITRATE [facility]; Protocol Last Titration: 08/04/20 21:42 Dose: 0 units/kg/hr, 0 mls/hr Documented by: Ondansetron HCl (Zofran) 4 mg IV Q4H PRN PRN Reason: Nausea/Vomiting Sodium Chloride (Saline Flush) 10 ml FLUSH ASDIRECTED PRN PRN Reason: Keep Vein Open Last Admin: 08/03/20 16:42 Dose: 10 ml Documented by: Discontinued Medications Sodium Chloride (Normal Saline) 1,000 mls @ 999 mls/hr IV ASDIRECTED [facility] Last Admin: 08/03/20 16:42 Dose: 999 mls/hr Documented by: Sodium Chloride (Normal Saline) 1,000 mls @ 999 mls/hr IV ONETIME ONE Stop: 08/03/20 17:49 Last Admin: 08/03/20 18:04 Dose: 999 mls/hr Documented by: Potassium Chloride/Sodium Chloride (Normal Saline With 20 Meq Kcl) 1,000 mls @ 250 mls/hr IV ASDIRECTED [facility] Potassium Chloride/Sodium Chloride (1/2 Ns With 20 Meq Kcl) 1,000 mls @ 250 mls/hr IV ASDIRECTED [facility] Last Admin: 08/03/20 20:23 Dose: 250 mls/hr Documented by: Magnesium Sulfate 4 gm/ Premix 50 mls @ 12.5 mls/hr IV ONETIME ONE Stop: 08/03/20 23:29 Last Admin: 08/03/20 20:27 Dose: 12.5 mls/hr Documented by: Potassium Chloride/Dextrose/Sod Cl (D5 1/2 Ns W/ 20 Meq/L Kcl) 1,000 mls @ 200 mls/hr IV ASDIRECTED [facility] Last Admin: 08/04/20 01:59 Dose: 150 mls/hr Documented by: Potassium Chloride 10 meq/ (Premix) 100 mls @ 100 mls/hr IV Q1H [facility] Stop: 08/04/20 00:59 Last Admin: 08/04/20 00:43 Dose: 100 mls/hr Documented by: Dextrose/Sodium Chloride (Dextrose 5%-1/2 Ns) 500 mls @ 200 mls/hr IV DIRECTED ONE Stop: 08/04/20 01:25 Last Infusion: 08/04/20 01:39 Dose: Infused Documented by: Magnesium Sulfate 4 gm/ Premix 50 mls @ 12.5 mls/hr IV ONETIME ONE Stop: 08/04/20 09:26 Last Admin: 08/04/20 05:49 Dose: 12.5 mls/hr Documented by: Potassium Phosphate 30 mmole/ (Sodium Chloride) 510 mls @ 102 mls/hr IV ASDIRECTED [facility] Stop: 08/04/20 13:14 Last Admin: 08/04/20 09:13 Dose: 102 mls/hr Documented by: Potassium Phosphate 30 mmole/ (Sodium Chloride) 510 mls @ 102 mls/hr IV ONETIME ONE Stop: 08/04/20 13:59 Last Admin: 08/04/20 09:29 Dose: Not Given Documented by: Magnesium Sulfate 4 gm/ Premix 50 mls @ 12.5 mls/hr IV ONETIME ONE Stop: 08/05/20 15:24 Last Admin: 08/05/20 11:33 Dose: 12.5 mls/hr Documented by: Ondansetron HCl (Zofran) 4 mg IVPUSH ONETIME ONE Stop: 08/03/20 17:16 Last Admin: 08/03/20 18:08 Dose: 4 mg Documented by: - Exam Quality Assessment: Denies: Supplemental Oxygen General: Reports: Alert, Oriented HEENT: Reports: Pupils Equal, Mucous Membr. Moist/[place] Neck: Reports: Supple Lungs: Reports: Clear to Auscultation, Normal Respiratory Effort Cardiovascular: Reports: Regular Rate, Regular Rhythm GI/Abdominal Exam: Normal Bowel Sounds, Soft, Non-Tender, No Organomegaly, No Distention, No Abnormal Bruit, No Mass Extremities: Normal Inspection, Normal Range of Motion, Non-Tender, No Pedal Edema, Normal Capillary Refill Skin: Reports: Warm, Dry, Intact Neurological: Reports: No New Focal Deficit Psy/Mental Status: Reports: Alert, Normal Affect, Normal Mood
== END 2020-08-06 15:59 | disposition home or self-care (01) | DRG 637 ==
LOC: JD.ED 15:21 → JD.ICU 18:26
PROVIDERS: ADMIT Family Medicine; ATTEND Family Medicine
DX: E10.10 Type 1 diabetes mellitus with ketoacidosis without coma (principal); Z79.4 Long term (current) use of insulin; Z96.41 Presence of insulin pump (external) (internal); U07.1 COVID-19; E83.42 Hypomagnesemia; H54.7 Unspecified visual loss; J30.9 Allergic rhinitis, unspecified; I10 Essential (primary) hypertension; E10.21 Type 1 diabetes mellitus with diabetic nephropathy; D63.8 Anemia in other chronic diseases classified elsewhere; E83.39 Other disorders of phosphorus metabolism; E87.6 Hypokalemia; E88.09 Other disorders of plasma-protein metabolism, not elsewhere classified; F17.210 Nicotine dependence, cigarettes, uncomplicated; F32.9 Major depressive disorder, single episode, unspecified
CPT/HCPCS: 36415; 80053; 81001; 82009; 82800; 83735; 83930; 84100; 85025; 87040 ×2; J1815; J2405; J7030 ×2; 71045; 71045-26; 80048; 82947; 82962; 83036; 96374; 99223; 99232; 99239; 99285; 99285-25; J3475; J3480; J3490; J7040; J7042

== ENCOUNTER 2020-08-13 14:36 | Emergency (ER) | payer MEDICAID ==
[2020-08-13] MEDS ORDERED: Sodium Chloride 0.9% 10 ML Syringe FLUSH PRN (15:13)
[2020-08-13] MEDS ORDERED: Ondansetron 4 MG/2 ML SDV IVPUSH ONE (15:13)
[2020-08-13] MEDS ORDERED: Ondansetron 4 MG/2 ML SDV ONE (15:15)
[2020-08-13] MEDS ORDERED: Sodium Chloride 0.9% 2,000 ML IV SCH (15:15)
[2020-08-13] MEDS ORDERED: Sodium Chloride 0.9% 2,000 ML ONE (15:15)
[2020-08-13 17:49] VITALS: BP 92/45; PULSE 122
[2020-08-13] MEDS ORDERED: Lactated Ringers 1,000 ML IV ONE ×2 (17:53→20:18)
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
[2020-08-14] MEDS ORDERED: Lactated Ringers 1,000 ML IV SCH (00:15)
[2020-08-14] MEDS ORDERED: Dextrose 5% in Water 1,000 ML IV SCH (03:30)
== END 2020-08-14 08:00 | disposition home or self-care (01) ==
LOC: JD.ED 14:36
DX: E10.10 Type 1 diabetes mellitus with ketoacidosis without coma (principal); E10.65 Type 1 diabetes mellitus with hyperglycemia; I10 Essential (primary) hypertension; E10.21 Type 1 diabetes mellitus with diabetic nephropathy; Z79.899 Other long term (current) drug therapy; Z20.828 Contact with and (suspected) exposure to other viral communicable diseases
CPT/HCPCS: 36415; 80048; 80053; 82009; 82800; 82947; 82962; 83930; 85025; 85379; 86140; 87635; 96374; 99284; J1815; J2405; J7030; J7060; J7120; U0002

== ENCOUNTER 2020-08-14 14:36 | Emergency (ER) | payer MEDICAID ==
[2020-08-14] MEDS ORDERED: Lactated Ringers 1,000 ML ONE (14:48)
--- NOTE | 2020-08-14 14:52 | EDM.PDOC ---
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 Anion gap is 38.5. BUN is 24 with a creatinine of 1.6. GFR is 54 glucose i s 800. Serum osmolality is pending lactic acid is elevated at 5.2. Calcium is 9.0 phosphorus elevated at 5.5. Magnesium is 1.8 liver function is normal C- reactive protein is 2.1 total protein 6.8 with an albumin fraction of 3.4. Urinalysis shows 2+ glucosuria and 4+ ketones trace of intact occult blood. No signs of infection serum ketones are elevated at 1.69. X-ray done portably reveals normal cardiac silhouette. There is perhaps very mild diffuse vascular congestion with mild prominence of the right pulmonary artery. Of note he is likely been lying down all day and therefore has some diffuse vascular congestion in upper lobes. He is also just getting over COVID-19 illness 14 days ago 08/14/20 17:02 I was able to obtain ABGs from his right femoral artery. pH is 6.98 with a PCO2 of 9.8 and a PO2 of 141. O2 sats are 97.5%. He is not an acceptable candidate to go to the floor at [facility] in [place] once his pH is greater than 7.1. Normally he would be going to the intensive care unit but there is no intensive care beds available at this time. Therefore it appears that he once again stay in our emergency room until a bed either becomes available or alternative placement can be found. Of note his BNP came back at 2538 would suggest he has underlying myocarditis still likely from COVID-19 illness. This may make fluid resuscitation a little more complicated. 08/14/20 18:01 blood sugar that was drawn approximately 1715 hrs. is reportedly 872 which is higher than what his original blood sugar is quoted at 800. This is in spite of being on insulin infusion at 3 units an hour for the last hour and a half. Insulin infusion will be doubled to 6 units an hour. He is due for a lactic acid and repeat blood sugar at 1800 hrs. Currently looking for p michael for this young man. Note urine drug screen did come back negative. 08/14/20 18:32 patient has been accepted by Dr. Vance--hospitalist at [facility] in [facility]. Patient will be transported to that facility per air as we have no availability to transport him to that facility per ground ambulance as it is too of far away over 300 miles from [place]. 08/14/20 18:59 lab called over and it reported that the lactic acid done at 1800 hrs. is 5.3 which is slightly higher than his admission lactic acid of 5.2. I have discussed the findings with the nursing staff and they are confident that IV fluids are not going interstitial and he is currently on his fourth liter of Ringer's lactate. He will continue lactated Ringer's IV fluid ideally a liter per hour but will need his lactic acid checked once he reaches [place] again. Sugar should be checked on an hourly basis. 08/14/20 19:24 IV fluids will be Ringer's lactate at open. Current insulin infusion is 6 units of regular insulin per hour. His blood sugar every hour in transit to [place]. Requires repeat Lactic acid upon arrival in [place]. Departure - Departure Time of Disposition: 19:25 Disposition: DC/Tfer to Acute Hospital 02 Condition: Serious Clinical Impression: Lactic acidosis, Hyponatremia, Neutrophilic leukocytosis, Elevated brain natriuretic peptide (BNP) level, Myocarditis due to COVID-19 virus, Poorly controlled type 1 diabetes mellitus Diabetic ketoacidosis Qualifiers: Diabetes mellitus type: type 1 Diabetes mellitus complication detail: without coma Qualified Code(s): E10.10 - Type 1 diabetes mellitus with ketoacidosis without coma - Discharge Information *PRESCRIPTION DRUG MONITORING PROGRAM REVIEWED*: Not Applicable *COPY OF PRESCRIPTION DRUG MONITORING REPORT IN PATIENT [place]: Not Applicable Referrals: PCP,None [Ordering Only Provider] - Forms: ED Department Discharge Additional Instructions: Patient transferred to [facility] in [place] as there were no other beds available in the [place] or [place] part of the [facility]. Our hospital remains on diversion. Patient has a history of recurrent diabetic ketoacidosis requiring admissions to hospital. Treatment he poor control of type 1 diabetes. COVID-19 illness diagnosed on July 31 and repeat Covid 19 screen last night August 13 was negative.
[2020-08-14] MEDS ORDERED: Lactated Ringers 1,000 ML IV SCH ×2 (15:00→19:30)
[2020-08-14] MEDS ORDERED: Metoclopramide 10 MG/2 ML SDV IVPUSH ONE (15:10)
--- NOTE | 2020-08-14 16:32 | CR ---
PROCEDURE INFORMATION: Exam: XR Chest, 1 View Exam date and time: 08/14/2020 2:46 PM Age: 25 years old Clinical indication: Other: Rhonci both lungs TECHNIQUE: Imaging protocol: XR of the chest Views: 1 view. COMPARISON: CR Chest 1V Frontal 08/04/2020 6:54 AM FINDINGS: Lungs: Unremarkable. No consolidation. Pleural space: Unremarkable. No pleural effusion. No pneumothorax. Heart/Mediastinum: Unremarkable. No cardiomegaly. Bones/joints: Unremarkable. IMPRESSION: No acute findings. Thank you for allowing us to participate in the care of your patient. Dictated and Authenticated by: Susy Alberto MD 08/14/2020 5:28 PM Central Time ([place] & [place]) DOMONIQUE
[2020-08-14] MEDS: Lactated Ringers 1,000 ML IV SCH ×4 (16:35→19:39)
[2020-08-14 18:51] VITALS: BP 128/63; PULSE 129
== END 2020-08-14 21:15 ==
LOC: JD.ED 14:36
DX: E10.10 Type 1 diabetes mellitus with ketoacidosis without coma (principal); U07.1 COVID-19; I51.4 Myocarditis, unspecified; E10.21 Type 1 diabetes mellitus with diabetic nephropathy; E87.1 Hypo-osmolality and hyponatremia; D72.828 Other elevated white blood cell count; R79.89 Other specified abnormal findings of blood chemistry; I10 Essential (primary) hypertension
CPT/HCPCS: 36415; 36600; 71045; 80053; 80306; 81001; 82009; 82803; 82947; 83605; 83690; 83735; 83880; 83930; 84100; 84443; 85025; 85610; 86140; 87040; 93005; 96374; 99285; J1815; J2765; J7120

== ENCOUNTER 2021-01-16 21:30 | Inpatient (IN) | payer MEDICAID ==
[2021-01-16] MEDS ORDERED: Sodium Chloride 0.9% 10 ML Syringe FLUSH PRN (21:40)
[2021-01-16] MEDS ORDERED: Insulin Regular, Human 100 Units/ML 3 ML Vial IVPUSH ONE (21:43)
[2021-01-16] MEDS ORDERED: Lactated Ringers 1,000 ML IV ONE ×2 (21:43→23:05)
[2021-01-16] MEDS ORDERED: Sodium Chloride 0.9% 1,000 ML IV SCH (21:45)
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
[2021-01-16] MEDS ORDERED: Sodium Chloride 0.9% 100 ML ONE (22:06)
[2021-01-16] MEDS ORDERED: Sodium Bicarbonate 8.4% 50 MEQ/50 ML Syringe IVPUSH ONE (22:15)
[2021-01-16] MEDS ORDERED: Lactated Ringers 1,000 ML IV STA (23:05)
[2021-01-17] MEDS ORDERED: Ondansetron 4 MG/2 ML SDV IV PRN (00:31)
[2021-01-17] MEDS ORDERED: Morphine 2 MG/ML SYRINGE IVPUSH PRN (00:31)
[2021-01-17] MEDS ORDERED: Acetaminophen 325 MG Tab PO PRN (00:31)
[2021-01-17] MEDS ORDERED: Enoxaparin 40 MG/0.4 ML Syringe SUBCUT SCH (00:45)
[2021-01-17] MEDS ORDERED: Sodium Chloride 0.45% with KCl 1,000 ML IV SCH (01:00)
[2021-01-17] MEDS ORDERED: LORazepam 2 MG/ML SDV IVPUSH PRN (01:01)
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
[2021-01-17] MEDS: Enoxaparin 40 MG/0.4 ML Syringe SUBCUT SCH ×2 (02:03→20:37)
[2021-01-17] MEDS: Aspirin 81 MG Tab.Chew PO SCH ×2 (02:04→08:17)
[2021-01-17] MEDS: Pantoprazole 40 MG Vial IVPUSH SCH ×2 (02:04→08:24)
[2021-01-17] MEDS: D5 1/2 NS w/ 20 mEq/L KCl 1,000 ML IV SCH ×4 (04:50→22:38)
[2021-01-17] MEDS ORDERED: Sodium Chloride 0.9% 500 ML IV ONE ×3 (07:09→13:19)
[2021-01-17] MEDS ORDERED: Sodium Chloride 0.9% 1,000 ML ONE (07:11)
[2021-01-17] MEDS ORDERED: hydrALAZINE 20 MG/ML SDV IVPUSH PRN (07:41)
--- NOTE | 2021-01-17 08:01 | CR ---
Chest: Portable supine view of the chest was obtained. Comparison: Prior chest x-ray of 05/04/20. Heart size and mediastinum are within normal limits for portable technique. Lungs are clear with no acute parenchymal change. No acute osseous abnormality is appreciated. Impression: 1. Nothing acute is seen on portable chest x-ray. Diagnostic code #1
[2021-01-17] MEDS: Diltiazem 50 MG/10 ML SDV IVPUSH PRN ×5 (09:23→16:38)
[2021-01-17] MEDS ORDERED: Diltiazem IR 30 MG Tab PO PRN (12:04)
--- NOTE | 2021-01-17 15:01 | CR ---
Chest: Portable view of the chest was obtained. Comparison: Prior chest x-ray of 01/16/21. Heart size and mediastinum are normal. Lungs are clear with no acute parenchymal change. No acute osseous abnormality is appreciated. Impression: 1. Nothing acute is seen on portable chest x-ray. Diagnostic code #1
--- NOTE | 2021-01-17 15:47 | CT ---
Head CT Technique: Multiple axial sections of the brain were obtained. Intravenous contrast was not utilized. Reconstructed coronal and sagittal images were also obtained. Comparison: Prior head CT study of 03/30/19. Findings: Ventricles along the basal cisterns and sulci over the convexities are within normal limits for the patient's age. No abnormal parenchymal densities are seen. No evidence of intracranial hemorrhage. No midline shift or mass-effect is appreciated. Bone window settings were reviewed. Visualized mastoid sinuses and paranasal sinuses show nothing acute. No acute calvarial abnormality is appreciated. Impression: 1. Nothing acute is appreciated on noncontrast head CT study. 2. No change from previous head CT study is appreciated. Diagnostic code #1
[2021-01-17] MEDS ORDERED: Diltiazem 50 MG/10 ML SDV IVPUSH ONE (17:41)
[2021-01-17] MEDS ORDERED: Metoprolol Tartrate 5 MG/5 ML SDV IVPUSH ONE (18:33)
[2021-01-17] MEDS: Metoprolol Tartrate 25 MG Tab PO SCH (19:50)
[2021-01-17] MEDS: Metoprolol Tartrate 5 MG/5 ML SDV IVPUSH PRN (20:37)
[2021-01-17] MEDS ORDERED: Piperacillin/Tazobactam 4.5 GM in Sodium Chloride 0.9% 100 ML IV ONE (21:15)
[2021-01-17] MEDS ORDERED: Azithromycin 400 MG in Sodium Chloride 0.9% 250 ML IV SCH (23:15)
[2021-01-17] MEDS: Azithromycin 500 MG in Sodium Chloride 0.9% 250 ML IV SCH (23:31)
[2021-01-18] MEDS: Piperacillin/Tazobactam 4.5 GM in Sodium Chloride 0.9% 100 ML IV SCH ×3 (06:05→22:06)
[2021-01-18 07:46] LABS: HEMOGLOBIN A1C 10.6 %
[2021-01-18] MEDS: Pantoprazole 40 MG Vial IVPUSH SCH (08:19)
[2021-01-18] MEDS: Metoprolol Tartrate 25 MG Tab PO SCH ×2 (08:20→20:36)
[2021-01-18] MEDS: Aspirin 81 MG Tab.Chew PO SCH (08:20)
[2021-01-18] MEDS: D5 1/2 NS w/ 20 mEq/L KCl 1,000 ML IV SCH ×2 (08:56→19:34)
--- NOTE | 2021-01-18 09:42 | CT ---
CT chest Technique: Multiple axial sections through the chest were obtained. Intravenous contrast was not utilized. Reconstructed coronal and sagittal images were obtained. Comparison: Prior CT chest of 03/31/19. Findings: Visualized portion of thyroid gland shows minimal scattered small low density areas. Thoracic aorta shows no aneurysm. No mediastinal or hilar adenopathy is seen. No pericardial thickening is noted. No axillary adenopathy is noted. Minimal thickening of the tracheal wall is seen which is most likely incidental. Slight body wall edema is noted. Patchy areas of increased density are seen posteriorly within both lung bases. No pleural effusions are seen. No pneumothorax is appreciated. Bone window settings were reviewed. No acute osseous finding is appreciated. Impression: 1. Diffuse consolidation within both posterior lung bases. Findings most likely represent prominent areas of bilateral pneumonia. 2. Other findings believed to be incidental as noted above. Diagnostic code #3 I agree with preliminary report from [facility], finalized on 01/17/21, 11:29 PM CDT, code 1 CT abdomen and pelvis Technique: Multiple axial sections were obtained from above the dome of the diaphragm inferiorly through the pubic symphysis. Intravenous and oral contrast was not utilized. Reconstructed coronal and sagittal images were obtained. Comparison: No prior CT abdomen or pelvis exam is available, prior abdominal ultrasound of 12/30/15 is available. Findings: Liver is enlarged. No focal abnormality is appreciated within the liver. Gallbladder contains no calcified gallstones. Spleen appears within normal limits. Adrenal glands show no nodule. Kidneys show no abnormal calcifications or hydronephrosis. Visualized portions of the pancreas show no discrete abnormality. Scattered body wall edema is noted. There is a mild to moderate amount of ascites seen within the abdomen and pelvis. No bowel dilatation is seen. Appendix is not definitely visualized. Bone window settings were reviewed which show no acute osseous abnormality. Impression: 1. Liver is enlarged. 2. Mild to moderate ascites within the abdomen and pelvis. Mild body wall edema. 3. No other acute abnormalities appreciated. Diagnostic code #3 I agree with preliminary report from [facility], finalized on 01/17/21, 11:29 PM CDT, code 1
--- NOTE | 2021-01-18 14:19 | PCM.PN ---
- General Info Date of Service: 01/18/21 Admission Dx/Problem (Free Text): Admission Diagnosis/Problem Admission Diagnosis/Problem Diabetic ketoacidosis Subjective Update: Patient is a 25-year-old male with a history of type 1 diabetes and medical noncompliance who was admitted for DKA. Today patient feels much better. Denies nausea, vomiting, abdominal pain. She still had tachycardia and is now on 2 L WBC went back to normal 8.88, platelets 157 Bicarbonate of 13, anion gap 23.7 Creatinine 1.3 Lactic acid 7.2 Phos 4.9, mag 1.9 Hemoglobin A1c 10.6 - Review of Systems General: Reports: Weakness HEENT: Reports: No Symptoms Pulmonary: Reports: Shortness of Breath Cardiovascular: Reports: No Symptoms Gastrointestinal: Reports: No Symptoms Genitourinary: Reports: No Symptoms Musculoskeletal: Reports: No Symptoms Skin: Reports: No Symptoms Neurological: Reports: No Symptoms Psychiatric: Reports: No Symptoms - Patient Data Vitals - Most Recent: Last Vital Signs Temp 36.7 C 01/18/21 13:00 Pulse 108 H 01/18/21 13:00 Resp 18 01/18/21 13:00 BP 123/80 01/18/21 13:00 Pulse Ox 97 01/18/21 13:00 Weight - Most Recent: 56.019 kg I&O - Last 24 Hours: Intake & Output 01/17/21 01/18/21 01/18/21 22:59 06:59 14:59 Intake Total 2771 1700 Output Total 830 1195 280 Balance 1941 505 -280 Lab Results Last 24 Hours: Laboratory Results - last 24 hr 01/17/21 01/17/21 01/17/21 Range/Units 01:15 02:39 03:34 WBC (4.23-9.07) K/mm3 RBC (4.63-6.08) M/mm3 Hgb (13.7-17.5) gm/dl Hct (40.1-51.0) % MCV (79.0-92.2) fl MCH (25.7-32.2) pg MCHC (32.2-35.5) g/dl RDW Std Deviation (35.1-43.9) fL Plt Count (163-337) K/mm3 MPV (9.4-12.3) fl Neut % (Auto) (34.0-67.9) % Lymph % (Auto) (21.8-53.1) % Tift % (Auto) (5.3-12.2) % Eos % (Auto) (0.8-7.0) Baso % (Auto) (0.1-1.2) % Neut # (Auto) (1.78-5.38) K/mm3 Lymph # (Auto) (1.32-3.57) K/mm3 Tift # (Auto) (0.30-0.82) K/mm3 Eos # (Auto) (0.04-0.54) K/mm3 Baso # (Auto) (0.01-0.08) K/mm3 Sodium (136-145) mEq/L Potassium (3.5-5.1) mEq/L Chloride (98-107) mEq/L Carbon Dioxide (21-32) mEq/L Anion Gap (5-15) BUN (7-18) mg/dL Creatinine (0.7-1.3) mg/dL Est Cr Clr Drug Dosing mL/min Estimated GFR (MDRD) (>60) mL/min BUN/Creatinine Ratio (14-18) Glucose (74-106) mg/dL POC Glucose 484 H* 362 H 273 H (70-99) mg/dL Hemoglobin A1c ( - 5.6) % Lactic Acid (0.4-2.0) mmol/L Calcium (8.5-10.1) mg/dL Total Bilirubin (0.2-1.0) mg/dL AST (15-37) U/L ALT (16-63) U/L Alkaline Phosphatase (46-116) U/L Troponin I (0.00-0.056) ng/mL NT-Pro-B Natriuret Pep (0-125) pg/mL Total Protein (6.4-8.2) g/dl Albumin (3.4-5.0) g/dl Globulin gm/dL Albumin/Globulin Ratio (1-2) Procalcitonin ng/mL 01/17/21 01/17/21 01/17/21 Range/Units 04:28 04:36 05:20 WBC (4.23-9.07) K/mm3 RBC (4.63-6.08) M/mm3 Hgb (13.7-17.5) gm/dl Hct (40.1-51.0) % MCV (79.0-92.2) fl MCH (25.7-32.2) pg MCHC (32.2-35.5) g/dl RDW Std Deviation (35.1-43.9) fL Plt Count (163-337) K/mm3 MPV (9.4-12.3) fl Neut % (Auto) (34.0-67.9) % Lymph % (Auto) (21.8-53.1) % Tift % (Auto) (5.3-12.2) % Eos % (Auto) (0.8-7.0) Baso % (Auto) (0.1-1.2) % Neut # (Auto) (1.78-5.38) K/mm3 Lymph # (Auto) (1.32-3.57) K/mm3 Tift # (Auto) (0.30-0.82) K/mm3 Eos # (Auto) (0.04-0.54) K/mm3 Baso # (Auto) (0.01-0.08) K/mm3 Sodium (136-145) mEq/L Potassium (3.5-5.1) mEq/L Chloride (98-107) mEq/L Carbon Dioxide (21-32) mEq/L Anion Gap (5-15) BUN (7-18) mg/dL Creatinine (0.7-1.3) mg/dL Est Cr Clr Drug Dosing mL/min Estimated GFR (MDRD) (>60) mL/min BUN/Creatinine Ratio (14-18) Glucose (74-106) mg/dL POC Glucose 181 H 187 H (70-99) mg/dL Hemoglobin A1c ( - 5.6) % Lactic Acid (0.4-2.0) mmol/L Calcium (8.5-10.1) mg/dL Total Bilirubin (0.2-1.0) mg/dL AST (15-37) U/L ALT (16-63) U/L Alkaline Phosphatase (46-116) U/L Troponin I (0.00-0.056) ng/mL NT-Pro-B Natriuret Pep (0-125) pg/mL Total Protein (6.4-8.2) g/dl Albumin (3.4-5.0) g/dl Globulin gm/dL Albumin/Globulin Ratio (1-2) Procalcitonin 0.27 H ng/mL 01/17/21 01/17/21 01/17/21 Range/Units 06:13 06:57 08:01 WBC (4.23-9.07) K/mm3 RBC (4.63-6.08) M/mm3 Hgb (13.7-17.5) gm/dl Hct (40.1-51.0) % MCV (79.0-92.2) fl MCH (25.7-32.2) pg MCHC (32.2-35.5) g/dl RDW Std Deviation (35.1-43.9) fL Plt Count (163-337) K/mm3 MPV (9.4-12.3) fl Neut % (Auto) (34.0-67.9) % Lymph % (Auto) (21.8-53.1) % Tift % (Auto) (5.3-12.2) % Eos % (Auto) (0.8-7.0) Baso % (Auto) (0.1-1.2) % Neut # (Auto) (1.78-5.38) K/mm3 Lymph # (Auto) (1.32-3.57) K/mm3 Tift # (Auto) (0.30-0.82) K/mm3 Eos # (Auto) (0.04-0.54) K/mm3 Baso # (Auto) (0.01-0.08) K/mm3 Sodium (136-145) mEq/L Potassium (3.5-5.1) mEq/L Chloride (98-107) mEq/L Carbon Dioxide (21-32) mEq/L Anion Gap (5-15) BUN (7-18) mg/dL Creatinine (0.7-1.3) mg/dL Est Cr Clr Drug Dosing mL/min Estimated GFR (MDRD) (>60) mL/min BUN/Creatinine Ratio (14-18) Glucose (74-106) mg/dL POC Glucose 148 H 169 H 241 H (70-99) mg/dL Hemoglobin A1c ( - 5.6) % Lactic Acid (0.4-2.0) mmol/L Calcium (8.5-10.1) mg/dL Total Bilirubin (0.2-1.0) mg/dL AST (15-37) U/L ALT (16-63) U/L Alkaline Phosphatase (46-116) U/L Troponin I (0.00-0.056) ng/mL NT-Pro-B Natriuret Pep (0-125) pg/mL Total Protein (6.4-8.2) g/dl Albumin (3.4-5.0) g/dl Globulin gm/dL Albumin/Globulin Ratio (1-2) Procalcitonin ng/mL 01/17/21 01/17/21 01/17/21 Range/Units 09:03 10:08 10:59 WBC (4.23-9.07) K/mm3 RBC (4.63-6.08) M/mm3 Hgb (13.7-17.5) gm/dl Hct (40.1-51.0) % MCV (79.0-92.2) fl MCH (25.7-32.2) pg MCHC (32.2-35.5) g/dl RDW Std Deviation (35.1-43.9) fL Plt Count (163-337) K/mm3 MPV (9.4-12.3) fl Neut % (Auto) (34.0-67.9) % Lymph % (Auto) (21.8-53.1) % Tift % (Auto) (5.3-12.2) % Eos % (Auto) (0.8-7.0) Baso % (Auto) (0.1-1.2) % Neut # (Auto) (1.78-5.38) K/mm3 Lymph # (Auto) (1.32-3.57) K/mm3 Tift # (Auto) (0.30-0.82) K/mm3 Eos # (Auto) (0.04-0.54) K/mm3 Baso # (Auto) (0.01-0.08) K/mm3 Sodium (136-145) mEq/L Potassium (3.5-5.1) mEq/L Chloride (98-107) mEq/L Carbon Dioxide (21-32) mEq/L Anion Gap (5-15) BUN (7-18) mg/dL Creatinine (0.7-1.3) mg/dL Est Cr Clr Drug Dosing mL/min Estimated GFR (MDRD) (>60) mL/min BUN/Creatinine Ratio (14-18) Glucose (74-106) mg/dL POC Glucose 169 H 127 H 111 H (70-99) mg/dL Hemoglobin A1c ( - 5.6) % Lactic Acid (0.4-2.0) mmol/L Calcium (8.5-10.1) mg/dL Total Bilirubin (0.2-1.0) mg/dL AST (15-37) U/L ALT (16-63) U/L Alkaline Phosphatase (46-116) U/L Troponin I (0.00-0.056) ng/mL NT-Pro-B Natriuret Pep (0-125) pg/mL Total Protein (6.4-8.2) g/dl Albumin (3.4-5.0) g/dl Globulin gm/dL Albumin/Globulin Ratio (1-2) Procalcitonin ng/mL 01/17/21 01/17/21 01/17/21 Range/Units 12:06 13:01 14:04 WBC (4.23-9.07) K/mm3 RBC (4.63-6.08) M/mm3 Hgb (13.7-17.5) gm/dl Hct (40.1-51.0) % MCV (79.0-92.2) fl MCH (25.7-32.2) pg MCHC (32.2-35.5) g/dl RDW Std Deviation (35.1-43.9) fL Plt Count (163-337) K/mm3 MPV (9.4-12.3) fl Neut % (Auto) (34.0-67.9) % Lymph % (Auto) (21.8-53.1) % Tift % (Auto) (5.3-12.2) % Eos % (Auto) (0.8-7.0) Baso % (Auto) (0.1-1.2) % Neut # (Auto) (1.78-5.38) K/mm3 Lymph # (Auto) (1.32-3.57) K/mm3 Tift # (Auto) (0.30-0.82) K/mm3 Eos # (Auto) (0.04-0.54) K/mm3 Baso # (Auto) (0.01-0.08) K/mm3 Sodium (136-145) mEq/L Potassium (3.5-5.1) mEq/L Chloride (98-107) mEq/L Carbon Dioxide (21-32) mEq/L Anion Gap (5-15) BUN (7-18) mg/dL Creatinine (0.7-1.3) mg/dL Est Cr Clr Drug Dosing mL/min Estimated GFR (MDRD) (>60) mL/min BUN/Creatinine Ratio (14-18) Glucose (74-106) mg/dL POC Glucose 114 H 116 H 131 H (70-99) mg/dL Hemoglobin A1c ( - 5.6) % Lactic Acid (0.4-2.0) mmol/L Calcium (8.5-10.1) mg/dL Total Bilirubin (0.2-1.0) mg/dL AST (15-37) U/L ALT (16-63) U/L Alkaline Phosphatase (46-116) U/L Troponin I (0.00-0.056) ng/mL NT-Pro-B Natriuret Pep (0-125) pg/mL Total Protein (6.4-8.2) g/dl Albumin (3.4-5.0) g/dl Globulin gm/dL Albumin/Globulin Ratio (1-2) Procalcitonin ng/mL 01/17/21 01/17/21 01/17/21 Range/Units 15:01 16:00 16:50 WBC (4.23-9.07) K/mm3 RBC (4.63-6.08) M/mm3 Hgb (13.7-17.5) gm/dl Hct (40.1-51.0) % MCV (79.0-92.2) fl MCH (25.7-32.2) pg MCHC (32.2-35.5) g/dl RDW Std Deviation (35.1-43.9) fL Plt Count (163-337) K/mm3 MPV (9.4-12.3) fl Neut % (Auto) (34.0-67.9) % Lymph % (Auto) (21.8-53.1) % Tift % (Auto) (5.3-12.2) % Eos % (Auto) (0.8-7.0) Baso % (Auto) (0.1-1.2) % Neut # (Auto) (1.78-5.38) K/mm3 Lymph # (Auto) (1.32-3.57) K/mm3 Tift # (Auto) (0.30-0.82) K/mm3 Eos # (Auto) (0.04-0.54) K/mm3 Baso # (Auto) (0.01-0.08) K/mm3 Sodium (136-145) mEq/L Potassium (3.5-5.1) mEq/L Chloride (98-107) mEq/L Carbon Dioxide (21-32) mEq/L Anion Gap (5-15) BUN (7-18) mg/dL Creatinine (0.7-1.3) mg/dL Est Cr Clr Drug Dosing mL/min Estimated GFR (MDRD) (>60) mL/min BUN/Creatinine Ratio (14-18) Glucose (74-106) mg/dL POC Glucose 193 H 311 H (70-99) mg/dL Hemoglobin A1c ( - 5.6) % Lactic Acid (0.4-2.0) mmol/L Calcium (8.5-10.1) mg/dL Total Bilirubin (0.2-1.0) mg/dL AST (15-37) U/L ALT (16-63) U/L Alkaline Phosphatase (46-116) U/L Troponin I (0.00-0.056) ng/mL NT-Pro-B Natriuret Pep 515 H (0-125) pg/mL Total Protein (6.4-8.2) g/dl Albumin (3.4-5.0) g/dl Globulin gm/dL Albumin/Globulin Ratio (1-2) Procalcitonin ng/mL 01/17/21 01/17/21 01/17/21 Range/Units 16:50 16:51 16:51 WBC (4.23-9.07) K/mm3 RBC (4.63-6.08) M/mm3 Hgb (13.7-17.5) gm/dl Hct (40.1-51.0) % MCV (79.0-92.2) fl MCH (25.7-32.2) pg MCHC (32.2-35.5) g/dl RDW Std Deviation (35.1-43.9) fL Plt Count (163-337) K/mm3 MPV (9.4-12.3) fl Neut % (Auto) (34.0-67.9) % Lymph % (Auto) (21.8-53.1) % Tift % (Auto) (5.3-12.2) % Eos % (Auto) (0.8-7.0) Baso % (Auto) (0.1-1.2) % Neut # (Auto) (1.78-5.38) K/mm3 Lymph # (Auto) (1.32-3.57) K/mm3 Tift # (Auto) (0.30-0.82) K/mm3 Eos # (Auto) (0.04-0.54) K/mm3 Baso # (Auto) (0.01-0.08) K/mm3 Sodium 140 (136-145) mEq/L Potassium 3.6 (3.5-5.1) mEq/L Chloride 107 (98-107) mEq/L Carbon Dioxide 13 L (21-32) mEq/L Anion Gap 23.6 H (5-15) BUN 11 (7-18) mg/dL Creatinine 1.3 (0.7-1.3) mg/dL Est Cr Clr Drug Dosing 68.78 mL/min Estimated GFR (MDRD) > 60 (>60) mL/min BUN/Creatinine Ratio 8.5 L (14-18) Glucose 270 H (74-106) mg/dL POC Glucose (70-99) mg/dL Hemoglobin A1c ( - 5.6) % Lactic Acid 5.3 H* (0.4-2.0) mmol/L Calcium 7.0 L (8.5-10.1) mg/dL Total Bilirubin (0.2-1.0) mg/dL AST (15-37) U/L ALT (16-63) U/L Alkaline Phosphatase (46-116) U/L Troponin I < 0.017 (0.00-0.056) ng/mL NT-Pro-B Natriuret Pep (0-125) pg/mL Total Protein (6.4-8.2) g/dl Albumin (3.4-5.0) g/dl Globulin gm/dL Albumin/Globulin Ratio (1-2) Procalcitonin ng/mL 01/17/21 01/17/21 01/17/21 Range/Units 17:00 18:00 18:57 WBC (4.23-9.07) K/mm3 RBC (4.63-6.08) M/mm3 Hgb (13.7-17.5) gm/dl Hct (40.1-51.0) % MCV (79.0-92.2) fl MCH (25.7-32.2) pg MCHC (32.2-35.5) g/dl RDW Std Deviation (35.1-43.9) fL Plt Count (163-337) K/mm3 MPV (9.4-12.3) fl Neut % (Auto) (34.0-67.9) % Lymph % (Auto) (21.8-53.1) % Tift % (Auto) (5.3-12.2) % Eos % (Auto) (0.8-7.0) Baso % (Auto) (0.1-1.2) % Neut # (Auto) (1.78-5.38) K/mm3 Lymph # (Auto) (1.32-3.57) K/mm3 Tift # (Auto) (0.30-0.82) K/mm3 Eos # (Auto) (0.04-0.54) K/mm3 Baso # (Auto) (0.01-0.08) K/mm3 Sodium (136-145) mEq/L Potassium (3.5-5.1) mEq/L Chloride (98-107) mEq/L Carbon Dioxide (21-32) mEq/L Anion Gap (5-15) BUN (7-18) mg/dL Creatinine (0.7-1.3) mg/dL Est Cr Clr Drug Dosing mL/min Estimated GFR (MDRD) (>60) mL/min BUN/Creatinine Ratio (14-18) Glucose (74-106) mg/dL POC Glucose 234 H 167 H 145 H (70-99) mg/dL Hemoglobin A1c ( - 5.6) % Lactic Acid (0.4-2.0) mmol/L Calcium (8.5-10.1) mg/dL Total Bilirubin (0.2-1.0) mg/dL AST (15-37) U/L ALT (16-63) U/L Alkaline Phosphatase (46-116) U/L Troponin I (0.00-0.056) ng/mL NT-Pro-B Natriuret Pep (0-125) pg/mL Total Protein (6.4-8.2) g/dl Albumin (3.4-5.0) g/dl Globulin gm/dL Albumin/Globulin Ratio (1-2) Procalcitonin ng/mL 01/17/21 01/17/21 01/17/21 Range/Units 20:02 20:06 20:06 WBC (4.23-9.07) K/mm3 RBC (4.63-6.08) M/mm3 Hgb (13.7-17.5) gm/dl Hct (40.1-51.0) % MCV (79.0-92.2) fl MCH (25.7-32.2) pg MCHC (32.2-35.5) g/dl RDW Std Deviation (35.1-43.9) fL Plt Count (163-337) K/mm3 MPV (9.4-12.3) fl Neut % (Auto) (34.0-67.9) % Lymph % (Auto) (21.8-53.1) % Tift % (Auto) (5.3-12.2) % Eos % (Auto) (0.8-7.0) Baso % (Auto) (0.1-1.2) % Neut # (Auto) (1.78-5.38) K/mm3 Lymph # (Auto) (1.32-3.57) K/mm3 Tift # (Auto) (0.30-0.82) K/mm3 Eos # (Auto) (0.04-0.54) K/mm3 Baso # (Auto) (0.01-0.08) K/mm3 Sodium 142 (136-145) mEq/L Potassium 3.8 (3.5-5.1) mEq/L Chloride 107 (98-107) mEq/L Carbon Dioxide 12 L (21-32) mEq/L Anion Gap 26.8 H (5-15) BUN 9 (7-18) mg/dL Creatinine 1.3 (0.7-1.3) mg/dL Est Cr Clr Drug Dosing 68.78 mL/min Estimated GFR (MDRD) > 60 (>60) mL/min BUN/Creatinine Ratio 6.9 L (14-18) Glucose 157 H (74-106) mg/dL POC Glucose 148 H (70-99) mg/dL Hemoglobin A1c ( - 5.6) % Lactic Acid 9.2 H* (0.4-2.0) mmol/L Calcium 7.8 L (8.5-10.1) mg/dL Total Bilirubin (0.2-1.0) mg/dL AST (15-37) U/L ALT (16-63) U/L Alkaline Phosphatase (46-116) U/L Troponin I (0.00-0.056) ng/mL NT-Pro-B Natriuret Pep (0-125) pg/mL Total Protein (6.4-8.2) g/dl Albumin (3.4-5.0) g/dl Globulin gm/dL Albumin/Globulin Ratio (1-2) Procalcitonin ng/mL 01/17/21 01/17/21 01/17/21 Range/Units 21:00 22:03 22:56 WBC (4.23-9.07) K/mm3 RBC (4.63-6.08) M/mm3 Hgb (13.7-17.5) gm/dl Hct (40.1-51.0) % MCV (79.0-92.2) fl MCH (25.7-32.2) pg MCHC (32.2-35.5) g/dl RDW Std Deviation (35.1-43.9) fL Plt Count (163-337) K/mm3 MPV (9.4-12.3) fl Neut % (Auto) (34.0-67.9) % Lymph % (Auto) (21.8-53.1) % Tift % (Auto) (5.3-12.2) % Eos % (Auto) (0.8-7.0) Baso % (Auto) (0.1-1.2) % Neut # (Auto) (1.78-5.38) K/mm3 Lymph # (Auto) (1.32-3.57) K/mm3 Tift # (Auto) (0.30-0.82) K/mm3 Eos # (Auto) (0.04-0.54) K/mm3 Baso # (Auto) (0.01-0.08) K/mm3 Sodium (136-145) mEq/L Potassium (3.5-5.1) mEq/L Chloride (98-107) mEq/L Carbon Dioxide (21-32) mEq/L Anion Gap (5-15) BUN (7-18) mg/dL Creatinine (0.7-1.3) mg/dL Est Cr Clr Drug Dosing mL/min Estimated GFR (MDRD) (>60) mL/min BUN/Creatinine Ratio (14-18) Glucose (74-106) mg/dL POC Glucose 226 H 142 H 116 H (70-99) mg/dL Hemoglobin A1c ( - 5.6) % Lactic Acid (0.4-2.0) mmol/L Calcium (8.5-10.1) mg/dL Total Bilirubin (0.2-1.0) mg/dL AST (15-37) U/L ALT (16-63) U/L Alkaline Phosphatase (46-116) U/L Troponin I (0.00-0.056) ng/mL NT-Pro-B Natriuret Pep (0-125) pg/mL Total Protein (6.4-8.2) g/dl Albumin (3.4-5.0) g/dl Globulin gm/dL Albumin/Globulin Ratio (1-2) Procalcitonin ng/mL 01/17/21 01/17/21 01/18/21 Range/Units 23:09 23:57 01:07 WBC (4.23-9.07) K/mm3 RBC (4.63-6.08) M/mm3 Hgb (13.7-17.5) gm/dl Hct (40.1-51.0) % MCV (79.0-92.2) fl MCH (25.7-32.2) pg MCHC (32.2-35.5) g/dl RDW Std Deviation (35.1-43.9) fL Plt Count (163-337) K/mm3 MPV (9.4-12.3) fl Neut % (Auto) (34.0-67.9) % Lymph % (Auto) (21.8-53.1) % Tift % (Auto) (5.3-12.2) % Eos % (Auto) (0.8-7.0) Baso % (Auto) (0.1-1.2) % Neut # (Auto) (1.78-5.38) K/mm3 Lymph # (Auto) (1.32-3.57) K/mm3 Tift # (Auto) (0.30-0.82) K/mm3 Eos # (Auto) (0.04-0.54) K/mm3 Baso # (Auto) (0.01-0.08) K/mm3 Sodium (136-145) mEq/L Potassium (3.5-5.1) mEq/L Chloride (98-107) mEq/L Carbon Dioxide (21-32) mEq/L Anion Gap (5-15) BUN (7-18) mg/dL Creatinine (0.7-1.3) mg/dL Est Cr Clr Drug Dosing mL/min Estimated GFR (MDRD) (>60) mL/min BUN/Creatinine Ratio (14-18) Glucose (74-106) mg/dL POC Glucose 126 H 186 H (70-99) mg/dL Hemoglobin A1c ( - 5.6) % Lactic Acid 9.3 H* (0.4-2.0) mmol/L Calcium (8.5-10.1) mg/dL Total Bilirubin (0.2-1.0) mg/dL AST (15-37) U/L ALT (16-63) U/L Alkaline Phosphatase (46-116) U/L Troponin I (0.00-0.056) ng/mL NT-Pro-B Natriuret Pep (0-125) pg/mL Total Protein (6.4-8.2) g/dl Albumin (3.4-5.0) g/dl Globulin gm/dL Albumin/Globulin Ratio (1-2) Procalcitonin ng/mL 01/18/21 01/18/21 01/18/21 Range/Units 01:16 01:16 01:57 WBC (4.23-9.07) K/mm3 RBC (4.63-6.08) M/mm3 Hgb (13.7-17.5) gm/dl Hct (40.1-51.0) % MCV (79.0-92.2) fl MCH (25.7-32.2) pg MCHC (32.2-35.5) g/dl RDW Std Deviation (35.1-43.9) fL Plt Count (163-337) K/mm3 MPV (9.4-12.3) fl Neut % (Auto) (34.0-67.9) % Lymph % (Auto) (21.8-53.1) % Tift % (Auto) (5.3-12.2) % Eos % (Auto) (0.8-7.0) Baso % (Auto) (0.1-1.2) % Neut # (Auto) (1.78-5.38) K/mm3 Lymph # (Auto) (1.32-3.57) K/mm3 Tift # (Auto) (0.30-0.82) K/mm3 Eos # (Auto) (0.04-0.54) K/mm3 Baso # (Auto) (0.01-0.08) K/mm3 Sodium 140 (136-145) mEq/L Potassium 3.7 (3.5-5.1) mEq/L Chloride 107 (98-107) mEq/L Carbon Dioxide 16 L (21-32) mEq/L Anion Gap 20.7 H (5-15) BUN 9 (7-18) mg/dL Creatinine 1.2 (0.7-1.3) mg/dL Est Cr Clr Drug Dosing 74.51 mL/min Estimated GFR (MDRD) > 60 (>60) mL/min BUN/Creatinine Ratio 7.5 L (14-18) Glucose 228 H (74-106) mg/dL POC Glucose 243 H (70-99) mg/dL Hemoglobin A1c ( - 5.6) % Lactic Acid 3.5 H* (0.4-2.0) mmol/L Calcium 7.4 L (8.5-10.1) mg/dL Total Bilirubin (0.2-1.0) mg/dL AST (15-37) U/L ALT (16-63) U/L Alkaline Phosphatase (46-116) U/L Troponin I (0.00-0.056) ng/mL NT-Pro-B Natriuret Pep (0-125) pg/mL Total Protein (6.4-8.2) g/dl Albumin (3.4-5.0) g/dl Globulin gm/dL Albumin/Globulin Ratio (1-2) Procalcitonin ng/mL 01/18/21 01/18/21 01/18/21 Range/Units 03:02 03:58 05:01 WBC (4.23-9.07) K/mm3 RBC (4.63-6.08) M/mm3 Hgb (13.7-17.5) gm/dl Hct (40.1-51.0) % MCV (79.0-92.2) fl MCH (25.7-32.2) pg MCHC (32.2-35.5) g/dl RDW Std Deviation (35.1-43.9) fL Plt Count (163-337) K/mm3 MPV (9.4-12.3) fl Neut % (Auto) (34.0-67.9) % Lymph % (Auto) (21.8-53.1) % Tift % (Auto) (5.3-12.2) % Eos % (Auto) (0.8-7.0) Baso % (Auto) (0.1-1.2) % Neut # (Auto) (1.78-5.38) K/mm3 Lymph # (Auto) (1.32-3.57) K/mm3 Tift # (Auto) (0.30-0.82) K/mm3 Eos # (Auto) (0.04-0.54) K/mm3 Baso # (Auto) (0.01-0.08) K/mm3 Sodium (136-145) mEq/L Potassium (3.5-5.1) mEq/L Chloride (98-107) mEq/L Carbon Dioxide (21-32) mEq/L Anion Gap (5-15) BUN (7-18) mg/dL Creatinine (0.7-1.3) mg/dL Est Cr Clr Drug Dosing mL/min Estimated GFR (MDRD) (>60) mL/min BUN/Creatinine Ratio (14-18) Glucose (74-106) mg/dL POC Glucose 220 H 197 H 186 H (70-99) mg/dL Hemoglobin A1c ( - 5.6) % Lactic Acid (0.4-2.0) mmol/L Calcium (8.5-10.1) mg/dL Total Bilirubin (0.2-1.0) mg/dL AST (15-37) U/L ALT (16-63) U/L Alkaline Phosphatase (46-116) U/L Troponin I (0.00-0.056) ng/mL NT-Pro-B Natriuret Pep (0-125) pg/mL Total Protein (6.4-8.2) g/dl Albumin (3.4-5.0) g/dl Globulin gm/dL Albumin/Globulin Ratio (1-2) Procalcitonin ng/mL 01/18/21 01/18/21 01/18/21 Range/Units 05:29 05:29 05:29 WBC 8.88 (4.23-9.07) K/mm3 RBC 3.41 L (4.63-6.08) M/mm3 Hgb 10.4 L D (13.7-17.5) gm/dl Hct 29.9 L (40.1-51.0) % MCV 87.7 D (79.0-92.2) fl MCH 30.5 (25.7-32.2) pg MCHC 34.8 (32.2-35.5) g/dl RDW Std Deviation 47.6 H (35.1-43.9) fL Plt Count 157 L D (163-337) K/mm3 MPV 8.5 L (9.4-12.3) fl Neut % (Auto) 79.2 H (34.0-67.9) % Lymph % (Auto) 11.4 L (21.8-53.1) % Tift % (Auto) 9.1 (5.3-12.2) % Eos % (Auto) 0 L (0.8-7.0) Baso % (Auto) 0.1 (0.1-1.2) % Neut # (Auto) 7.03 H (1.78-5.38) K/mm3 Lymph # (Auto) 1.01 L (1.32-3.57) K/mm3 Tift # (Auto) 0.81 (0.30-0.82) K/mm3 Eos # (Auto) 0.00 L (0.04-0.54) K/mm3 Baso # (Auto) 0.01 (0.01-0.08) K/mm3 Sodium (136-145) mEq/L Potassium (3.5-5.1) mEq/L Chloride (98-107) mEq/L Carbon Dioxide (21-32) mEq/L Anion Gap (5-15) BUN (7-18) mg/dL Creatinine (0.7-1.3) mg/dL Est Cr Clr Drug Dosing mL/min Estimated GFR (MDRD) (>60) mL/min BUN/Creatinine Ratio (14-18) Glucose (74-106) mg/dL POC Glucose (70-99) mg/dL Hemoglobin A1c 10.6 H ( - 5.6) % Lactic Acid 9.1 H* (0.4-2.0) mmol/L Calcium (8.5-10.1) mg/dL Total Bilirubin (0.2-1.0) mg/dL AST (15-37) U/L ALT (16-63) U/L Alkaline Phosphatase (46-116) U/L Troponin I (0.00-0.056) ng/mL NT-Pro-B Natriuret Pep (0-125) pg/mL Total Protein (6.4-8.2) g/dl Albumin (3.4-5.0) g/dl Globulin gm/dL Albumin/Globulin Ratio (1-2) Procalcitonin ng/mL 01/18/21 01/18/21 01/18/21 Range/Units 06:02 06:56 07:03 WBC (4.23-9.07) K/mm3 RBC (4.63-6.08) M/mm3 Hgb (13.7-17.5) gm/dl Hct (40.1-51.0) % MCV (79.0-92.2) fl MCH (25.7-32.2) pg MCHC (32.2-35.5) g/dl RDW Std Deviation (35.1-43.9) fL Plt Count (163-337) K/mm3 MPV (9.4-12.3) fl Neut % (Auto) (34.0-67.9) % Lymph % (Auto) (21.8-53.1) % Tift % (Auto) (5.3-12.2) % Eos % (Auto) (0.8-7.0) Baso % (Auto) (0.1-1.2) % Neut # (Auto) (1.78-5.38) K/mm3 Lymph # (Auto) (1.32-3.57) K/mm3 Tift # (Auto) (0.30-0.82) K/mm3 Eos # (Auto) (0.04-0.54) K/mm3 Baso # (Auto) (0.01-0.08) K/mm3 Sodium 141 (136-145) mEq/L Potassium 3.7 (3.5-5.1) mEq/L Chloride 108 H (98-107) mEq/L Carbon Dioxide 13 L (21-32) mEq/L Anion Gap 23.7 H (5-15) BUN 8 (7-18) mg/dL Creatinine 1.3 (0.7-1.3) mg/dL Est Cr Clr Drug Dosing 70.02 mL/min Estimated GFR (MDRD) > 60 (>60) mL/min BUN/Creatinine Ratio 6.2 L (14-18) Glucose 217 H (74-106) mg/dL POC Glucose 245 H 304 H (70-99) mg/dL Hemoglobin A1c ( - 5.6) % Lactic Acid (0.4-2.0) mmol/L Calcium 7.3 L (8.5-10.1) mg/dL Total Bilirubin 0.5 (0.2-1.0) mg/dL AST 64 H (15-37) U/L ALT 95 H (16-63) U/L Alkaline Phosphatase 94 (46-116) U/L Troponin I (0.00-0.056) ng/mL NT-Pro-B Natriuret Pep (0-125) pg/mL Total Protein 5.3 L (6.4-8.2) g/dl Albumin 2.3 L (3.4-5.0) g/dl Globulin 3.0 gm/dL Albumin/Globulin Ratio 0.8 L (1-2) Procalcitonin ng/mL 01/18/21 01/18/21 01/18/21 Range/Units 08:10 08:11 09:00 WBC (4.23-9.07) K/mm3 RBC (4.63-6.08) M/mm3 Hgb (13.7-17.5) gm/dl Hct (40.1-51.0) % MCV (79.0-92.2) fl MCH (25.7-32.2) pg MCHC (32.2-35.5) g/dl RDW Std Deviation (35.1-43.9) fL Plt Count (163-337) K/mm3 MPV (9.4-12.3) fl Neut % (Auto) (34.0-67.9) % Lymph % (Auto) (21.8-53.1) % Tift % (Auto) (5.3-12.2) % Eos % (Auto) (0.8-7.0) Baso % (Auto) (0.1-1.2) % Neut # (Auto) (1.78-5.38) K/mm3 Lymph # (Auto) (1.32-3.57) K/mm3 Tift # (Auto) (0.30-0.82) K/mm3 Eos # (Auto) (0.04-0.54) K/mm3 Baso # (Auto) (0.01-0.08) K/mm3 Sodium (136-145) mEq/L Potassium (3.5-5.1) mEq/L Chloride (98-107) mEq/L Carbon Dioxide (21-32) mEq/L Anion Gap (5-15) BUN (7-18) mg/dL Creatinine (0.7-1.3) mg/dL Est Cr Clr Drug Dosing mL/min Estimated GFR (MDRD) (>60) mL/min BUN/Creatinine Ratio (14-18) Glucose (74-106) mg/dL POC Glucose 276 H 257 H (70-99) mg/dL Hemoglobin A1c ( - 5.6) % Lactic Acid 7.2 H* (0.4-2.0) mmol/L Calcium (8.5-10.1) mg/dL Total Bilirubin (0.2-1.0) mg/dL AST (15-37) U/L ALT (16-63) U/L Alkaline Phosphatase (46-116) U/L Troponin I (0.00-0.056) ng/mL NT-Pro-B Natriuret Pep (0-125) pg/mL Total Protein (6.4-8.2) g/dl Albumin (3.4-5.0) g/dl Globulin gm/dL Albumin/Globulin Ratio (1-2) Procalcitonin ng/mL 01/18/21 01/18/21 01/18/21 Range/Units 10:03 11:01 11:30 WBC (4.23-9.07) K/mm3 RBC (4.63-6.08) M/mm3 Hgb (13.7-17.5) gm/dl Hct (40.1-51.0) % MCV (79.0-92.2) fl MCH (25.7-32.2) pg MCHC (32.2-35.5) g/dl RDW Std Deviation (35.1-43.9) fL Plt Count (163-337) K/mm3 MPV (9.4-12.3) fl Neut % (Auto) (34.0-67.9) % Lymph % (Auto) (21.8-53.1) % Tift % (Auto) (5.3-12.2) % Eos % (Auto) (0.8-7.0) Baso % (Auto) (0.1-1.2) % Neut # (Auto) (1.78-5.38) K/mm3 Lymph # (Auto) (1.32-3.57) K/mm3 Tift # (Auto) (0.30-0.82) K/mm3 Eos # (Auto) (0.04-0.54) K/mm3 Baso # (Auto) (0.01-0.08) K/mm3 Sodium 138 (136-145) mEq/L Potassium 3.7 (3.5-5.1) mEq/L Chloride 106 (98-107) mEq/L Carbon Dioxide 17 L (21-32) mEq/L Anion Gap 18.7 H (5-15) BUN 7 (7-18) mg/dL Creatinine 1.2 (0.7-1.3) mg/dL Est Cr Clr Drug Dosing 75.86 mL/min Estimated GFR (MDRD) > 60 (>60) mL/min BUN/Creatinine Ratio 5.8 L (14-18) Glucose 316 H (74-106) mg/dL POC Glucose 206 H 271 H (70-99) mg/dL Hemoglobin A1c ( - 5.6) % Lactic Acid (0.4-2.0) mmol/L Calcium 7.4 L (8.5-10.1) mg/dL Total Bilirubin (0.2-1.0) mg/dL AST (15-37) U/L ALT (16-63) U/L Alkaline Phosphatase (46-116) U/L Troponin I (0.00-0.056) ng/mL NT-Pro-B Natriuret Pep (0-125) pg/mL Total Protein (6.4-8.2) g/dl Albumin (3.4-5.0) g/dl Globulin gm/dL Albumin/Globulin Ratio (1-2) Procalcitonin ng/mL 01/18/21 01/18/21 Range/Units 12:00 13:08 WBC (4.23-9.07) K/mm3 RBC (4.63-6.08) M/mm3 Hgb (13.7-17.5) gm/dl Hct (40.1-51.0) % MCV (79.0-92.2) fl MCH (25.7-32.2) pg MCHC (32.2-35.5) g/dl RDW Std Deviation (35.1-43.9) fL Plt Count (163-337) K/mm3 MPV (9.4-12.3) fl Neut % (Auto) (34.0-67.9) % Lymph % (Auto) (21.8-53.1) % Tift % (Auto) (5.3-12.2) % Eos % (Auto) (0.8-7.0) Baso % (Auto) (0.1-1.2) % Neut # (Auto) (1.78-5.38) K/mm3 Lymph # (Auto) (1.32-3.57) K/mm3 Tift # (Auto) (0.30-0.82) K/mm3 Eos # (Auto) (0.04-0.54) K/mm3 Baso # (Auto) (0.01-0.08) K/mm3 Sodium (136-145) mEq/L Potassium (3.5-5.1) mEq/L Chloride (98-107) mEq/L Carbon Dioxide (21-32) mEq/L Anion Gap (5-15) BUN (7-18) mg/dL Creatinine (0.7-1.3) mg/dL Est Cr Clr Drug Dosing mL/min Estimated GFR (MDRD) (>60) mL/min BUN/Creatinine Ratio (14-18) Glucose (74-106) mg/dL POC Glucose 276 H 231 H (70-99) mg/dL Hemoglobin A1c ( - 5.6) % Lactic Acid (0.4-2.0) mmol/L Calcium (8.5-10.1) mg/dL Total Bilirubin (0.2-1.0) mg/dL AST (15-37) U/L ALT (16-63) U/L Alkaline Phosphatase (46-116) U/L Troponin I (0.00-0.056) ng/mL NT-Pro-B Natriuret Pep (0-125) pg/mL Total Protein (6.4-8.2) g/dl Albumin (3.4-5.0) g/dl Globulin gm/dL Albumin/Globulin Ratio (1-2) Procalcitonin ng/mL Rosalio Results Last 24 Hours: Microbiology 01/16/21 22:00 Aerobic Blood Culture - Preliminary Blood NO GROWTH AFTER 1 DAY Anaerobic Blood Culture - Preliminary NO GROWTH AFTER 1 DAY 01/16/21 21:58 Aerobic Blood Culture - Preliminary Blood NO GROWTH AFTER 1 DAY Anaerobic Blood Culture - Preliminary NO GROWTH AFTER 1 DAY Med Orders - Current: Current Medications Acetaminophen (Acetaminophen 325 Mg Tab) 650 mg PO Q6H PRN PRN Reason: Pain (Mild 1-3)/fever Last Admin: 01/17/21 19:49 Dose: 650 mg Documented by: Aspirin (Aspirin 81 Mg Tab.Chew) 81 mg PO DAILY [facility] Last Admin: 01/18/21 08:20 Dose: 81 mg Documented by: Enoxaparin Sodium (Enoxaparin 40 Mg/0.4 Ml Syringe) 40 mg SUBCUT BEDTIME [facility] Last Admin: 01/17/21 20:37 Dose: 40 mg Documented by: Hydralazine HCl (Hydralazine 20 Mg/Ml Sdv) 10 mg IVPUSH Q4H PRN PRN Reason: Hypertension Potassium Chloride/Sodium Chloride (1/2 Ns With 20 Meq Kcl) 1,000 mls @ 125 mls/hr IV ASDIRECTED [facility] Last Infusion: 01/17/21 04:51 Dose: 0 mls/hr Documented by: Insulin Human Regular 100 unit (/ Sodium Chloride) 100 mls @ 1.1 mls/hr IV TITRATE [facility]; Protocol Last Titration: 01/18/21 12:03 Dose: 0.01 units/kg/hr, 0.6 mls/hr Documented by: Potassium Chloride/Dextrose/Sod Cl (D5 1/2 Ns W/ 20 Meq/L Kcl) 1,000 mls @ 100 mls/hr IV ASDIRECTED [facility] Last Admin: 01/18/21 08:56 Dose: 100 mls/hr Documented by: Piperacillin Sod/Tazobactam (Sod 4.5 gm/ Sodium Chloride) 100 mls @ 25 mls/hr IV Q8HR [facility] Last Admin: 01/18/21 06:05 Dose: 25 mls/hr Documented by: Azithromycin 500 mg/ Sodium (Chloride) 250 mls @ 250 mls/hr IV BEDTIME [facility] Last Admin: 01/17/21 23:31 Dose: 250 mls/hr Documented by: Lorazepam (Lorazepam 2 Mg/Ml Sdv) 0.5 mg IVPUSH Q4H PRN PRN Reason: Agitation Metoprolol Tartrate (Metoprolol Tartrate 5 Mg/5 Ml Sdv) 2.5 mg IVPUSH Q10M PRN PRN Reason: Tachycardia Last Admin: 01/17/21 20:37 Dose: 2.5 mg Documented by: Metoprolol Tartrate (Metoprolol Tartrate 25 Mg Tab) 12.5 mg PO Q12HR [facility] Last Admin: 01/18/21 08:20 Dose: 12.5 mg Documented by: Ondansetron HCl (Ondansetron 4 Mg/2 Ml Sdv) 4 mg IV Q6H PRN PRN Reason: Nausea/Vomiting Last Admin: 01/17/21 15:35 Dose: 4 mg Documented by: Pantoprazole Sodium (Pantoprazole 40 Mg Vial) 40 mg IVPUSH DAILY [facility] Last Admin: 01/18/21 08:19 Dose: 40 mg Documented by: Sodium Chloride (Sodium Chloride 0.9% 10 Ml Syringe) 10 ml FLUSH ASDIRECTED PRN PRN Reason: Keep Vein Open Last Admin: 01/16/21 22:06 Dose: 10 ml Documented by: Discontinued Medications Diltiazem HCl (Diltiazem 50 Mg/10 Ml Sdv) 2.5 mg IVPUSH Q1H PRN PRN Reason: HR greater than 110 Last Admin: 01/17/21 16:38 Dose: 2.5 mg Documented by: Diltiazem HCl (Diltiazem Ir 30 Mg Tab) 15 mg PO Q8H PRN PRN Reason: Tachycardia Last Admin: 01/17/21 12:29 Dose: 15 mg Documented by: Diltiazem HCl (Diltiazem 50 Mg/10 Ml Sdv) 5 mg IVPUSH ONETIME ONE Stop: 01/17/21 17:42 Last Admin: 01/17/21 17:49 Dose: 5 mg Documented by: Enoxaparin Sodium (Enoxaparin 40 Mg/0.4 Ml Syringe) 40 mg SUBCUT DAILY [facility] Last Admin: 01/17/21 07:55 Dose: Not Given Documented by: Sodium Chloride (Normal Saline) 1,000 mls @ 999 mls/hr IV ONETIME [facility] Last Admin: 01/16/21 22:05 Dose: 999 mls/hr Documented by: Lactated Ringer's (Ringers, Lactated) 1,000 mls @ 999 mls/hr IV .BOLUS ONE Stop: 01/16/21 22:43 Last Admin: 01/16/21 22:05 Dose: 999 mls/hr Documented by: Insulin Human Regular 100 unit (/ Sodium Chloride) 100 mls @ 5 mls/hr IV TITRATE [facility]; Protocol Last Titration: 01/17/21 03:37 Dose: 2.3 units/hr, 2.3 mls/hr Documented by: Sodium Chloride (Normal Saline) Confirm Administered Dose 100 mls @ as directed .ROUTE .STK-MED ONE Stop: 01/16/21 22:07 Last Admin: 01/17/21 06:02 Dose: Not Given Documented by: Lactated Ringer's (Ringers, Lactated) 1,000 mls @ 500 mls/hr IV NOW STA Stop: 01/17/21 01:04 Last Admin: 01/16/21 23:05 Dose: 500 mls/hr Documented by: Lactated Ringer's (Ringers, Lactated) 1,000 mls @ 500 mls/hr IV .BOLUS ONE Stop: 01/17/21 01:04 Last Admin: 01/16/21 23:05 Dose: 500 mls/hr Documented by: Insulin Human Regular 100 unit (/ Sodium Chloride) 100 mls @ 5.502 mls/hr IV TITRATE [facility]; Protocol Sodium Chloride (Normal Saline) 500 mls @ 999 mls/hr IV .BOLUS ONE Stop: 01/17/21 07:39 Last Admin: 01/17/21 07:09 Dose: 999 mls/hr Documented by: Sodium Chloride (Normal Saline) Confirm Administered Dose 1,000 mls @ as directed .ROUTE .STK-MED ONE Stop: 01/17/21 07:12 Last Admin: 01/17/21 07:52 Dose: Not Given Documented by: Sodium Chloride (Normal Saline) 500 mls @ 999 mls/hr IV .BOLUS ONE Stop: 01/17/21 10:31 Last Admin: 01/17/21 10:12 Dose: 999 mls/hr Documented by: Sodium Chloride (Normal Saline) 500 mls @ 999 mls/hr IV .BOLUS ONE Stop: 01/17/21 13:49 Last Admin: 01/17/21 13:27 Dose: 999 mls/hr Documented by: Piperacillin Sod/Tazobactam (Sod 4.5 gm/ Sodium Chloride) 100 mls @ 200 mls/hr IV ONETIME ONE Stop: 01/17/21 21:44 Last Admin: 01/17/21 21:38 Dose: 200 mls/hr Documented by: Azithromycin 400 mg/ Sodium (Chloride) 250 mls @ 250 mls/hr IV Q24H [facility] Insulin Human Regular (Insulin Regular, Human 100 Units/Ml 3 Ml Vial) 5 unit IVPUSH ONETIME ONE; Protocol Stop: 01/16/21 21:44 Last Admin: 01/16/21 21:49 Dose: 5 unit Documented by: Metoprolol Tartrate (Metoprolol Tartrate 5 Mg/5 Ml Sdv) 5 mg IVPUSH ONETIME ONE Stop: 01/17/21 18:34 Last Admin: 01/17/21 18:41 Dose: 5 mg Documented by: Morphine Sulfate (Morphine 2 Mg/Ml Syringe) 2 mg IVPUSH Q4H PRN PRN Reason: Pain (severe 7-10) Stop: 01/18/21 00:35 Sodium Bicarbonate (Sodium Bicarbonate 8.4% 50 Meq/50 Ml Syringe) 50 meq IVPUSH ONETIME ONE Stop: 01/16/21 22:16 Last Admin: 01/16/21 22:20 Dose: 50 meq Documented by: - Exam General: Alert, Oriented, Cooperative, No Acute Distress HEENT: Pupils Equal, Pupils Reactive, EOMI Neck: Supple, Trachea Midline, No JVD Lungs: Rhonchi Cardiovascular: Regular Rate, Regular Rhythm, Tachycardia GI/Abdominal Exam: Normal Bowel Sounds, Soft, Non-Tender, No Organomegaly Extremities: Normal Inspection, Normal Range of Motion, Non-Tender, No Pedal Edema Skin: Warm, Dry, Intact Neurological: Normal Speech, Normal Tone, Strength Equal Bilateral, Sensation Intact Psy/Mental Status: Normal Mood - Patient Data Lab Results Last 24 hrs: Laboratory Results - last 24 hr 01/17/21 01/17/21 01/17/21 Range/Units 01:15 02:39 03:34 WBC (4.23-9.07) K/mm3 RBC (4.63-6.08) M/mm3 Hgb (13.7-17.5) gm/dl Hct (40.1-51.0) % MCV (79.0-92.2) fl MCH (25.7-32.2) pg MCHC (32.2-35.5) g/dl RDW Std Deviation (35.1-43.9) fL Plt Count (163-337) K/mm3 MPV (9.4-12.3) fl Neut % (Auto) (34.0-67.9) % Lymph % (Auto) (21.8-53.1) % Tift % (Auto) (5.3-12.2) % Eos % (Auto) (0.8-7.0) Baso % (Auto) (0.1-1.2) % Neut # (Auto) (1.78-5.38) K/mm3 Lymph # (Auto) (1.32-3.57) K/mm3 Tift # (Auto) (0.30-0.82) K/mm3 Eos # (Auto) (0.04-0.54) K/mm3 Baso # (Auto) (0.01-0.08) K/mm3 Sodium (136-145) mEq/L Potassium (3.5-5.1) mEq/L Chloride (98-107) mEq/L Carbon Dioxide (21-32) mEq/L Anion Gap (5-15) BUN (7-18) mg/dL Creatinine (0.7-1.3) mg/dL Est Cr Clr Drug Dosing mL/min Estimated GFR (MDRD) (>60) mL/min BUN/Creatinine Ratio (14-18) Glucose (74-106) mg/dL POC Glucose 484 H* 362 H 273 H (70-99) mg/dL Hemoglobin A1c ( - 5.6) % Lactic Acid (0.4-2.0) mmol/L Calcium (8.5-10.1) mg/dL Total Bilirubin (0.2-1.0) mg/dL AST (15-37) U/L ALT (16-63) U/L Alkaline Phosphatase (46-116) U/L Troponin I (0.00-0.056) ng/mL NT-Pro-B Natriuret Pep (0-125) pg/mL Total Protein (6.4-8.2) g/dl Albumin (3.4-5.0) g/dl Globulin gm/dL Albumin/Globulin Ratio (1-2) Procalcitonin ng/mL 01/17/21 01/17/21 01/17/21 Range/Units 04:28 04:36 05:20 WBC (4.23-9.07) K/mm3 RBC (4.63-6.08) M/mm3 Hgb (13.7-17.5) gm/dl Hct (40.1-51.0) % MCV (79.0-92.2) fl MCH (25.7-32.2) pg MCHC (32.2-35.5) g/dl RDW Std Deviation (35.1-43.9) fL Plt Count (163-337) K/mm3 MPV (9.4-12.3) fl Neut % (Auto) (34.0-67.9) % Lymph % (Auto) (21.8-53.1) % Tift % (Auto) (5.3-12.2) % Eos % (Auto) (0.8-7.0) Baso % (Auto) (0.1-1.2) % Neut # (Auto) (1.78-5.38) K/mm3 Lymph # (Auto) (1.32-3.57) K/mm3 Tift # (Auto) (0.30-0.82) K/mm3 Eos # (Auto) (0.04-0.54) K/mm3 Baso # (Auto) (0.01-0.08) K/mm3 Sodium (136-145) mEq/L Potassium (3.5-5.1) mEq/L Chloride (98-107) mEq/L Carbon Dioxide (21-32) mEq/L Anion Gap (5-15) BUN (7-18) mg/dL Creatinine (0.7-1.3) mg/dL Est Cr Clr Drug Dosing mL/min Estimated GFR (MDRD) (>60) mL/min BUN/Creatinine Ratio (14-18) Glucose (74-106) mg/dL POC Glucose 181 H 187 H (70-99) mg/dL Hemoglobin A1c ( - 5.6) % Lactic Acid (0.4-2.0) mmol/L Calcium (8.5-10.1) mg/dL Total Bilirubin (0.2-1.0) mg/dL AST (15-37) U/L ALT (16-63) U/L Alkaline Phosphatase (46-116) U/L Troponin I (0.00-0.056) ng/mL NT-Pro-B Natriuret Pep (0-125) pg/mL Total Protein (6.4-8.2) g/dl Albumin (3.4-5.0) g/dl Globulin gm/dL Albumin/Globulin Ratio (1-2) Procalcitonin 0.27 H ng/mL 01/17/21 01/17/21 01/17/21 Range/Units 06:13 06:57 08:01 WBC (4.23-9.07) K/mm3 RBC (4.63-6.08) M/mm3 Hgb (13.7-17.5) gm/dl Hct (40.1-51.0) % MCV (79.0-92.2) fl MCH (25.7-32.2) pg MCHC (32.2-35.5) g/dl RDW Std Deviation (35.1-43.9) fL Plt Count (163-337) K/mm3 MPV (9.4-12.3) fl Neut % (Auto) (34.0-67.9) % Lymph % (Auto) (21.8-53.1) % Tift % (Auto) (5.3-12.2) % Eos % (Auto) (0.8-7.0) Baso % (Auto) (0.1-1.2) % Neut # (Auto) (1.78-5.38) K/mm3 Lymph # (Auto) (1.32-3.57) K/mm3 Tift # (Auto) (0.30-0.82) K/mm3 Eos # (Auto) (0.04-0.54) K/mm3 Baso # (Auto) (0.01-0.08) K/mm3 Sodium (136-145) mEq/L Potassium (3.5-5.1) mEq/L Chloride (98-107) mEq/L Carbon Dioxide (21-32) mEq/L Anion Gap (5-15) BUN (7-18) mg/dL Creatinine (0.7-1.3) mg/dL Est Cr Clr Drug Dosing mL/min Estimated GFR (MDRD) (>60) mL/min BUN/Creatinine Ratio (14-18) Glucose (74-106) mg/dL POC Glucose 148 H 169 H 241 H (70-99) mg/dL Hemoglobin A1c ( - 5.6) % Lactic Acid (0.4-2.0) mmol/L Calcium (8.5-10.1) mg/dL Total Bilirubin (0.2-1.0) mg/dL AST (15-37) U/L ALT (16-63) U/L Alkaline Phosphatase (46-116) U/L Troponin I (0.00-0.056) ng/mL NT-Pro-B Natriuret Pep (0-125) pg/mL Total Protein (6.4-8.2) g/dl Albumin (3.4-5.0) g/dl Globulin gm/dL Albumin/Globulin Ratio (1-2) Procalcitonin ng/mL 01/17/21 01/17/21 01/17/21 Range/Units 09:03 10:08 10:59 WBC (4.23-9.07) K/mm3 RBC (4.63-6.08) M/mm3 Hgb (13.7-17.5) gm/dl Hct (40.1-51.0) % MCV (79.0-92.2) fl MCH (25.7-32.2) pg MCHC (32.2-35.5) g/dl RDW Std Deviation (35.1-43.9) fL Plt Count (163-337) K/mm3 MPV (9.4-12.3) fl Neut % (Auto) (34.0-67.9) % Lymph % (Auto) (21.8-53.1) % Tift % (Auto) (5.3-12.2) % Eos % (Auto) (0.8-7.0) Baso % (Auto) (0.1-1.2) % Neut # (Auto) (1.78-5.38) K/mm3 Lymph # (Auto) (1.32-3.57) K/mm3 Tift # (Auto) (0.30-0.82) K/mm3 Eos # (Auto) (0.04-0.54) K/mm3 Baso # (Auto) (0.01-0.08) K/mm3 Sodium (136-145) mEq/L Potassium (3.5-5.1) mEq/L Chloride (98-107) mEq/L Carbon Dioxide (21-32) mEq/L Anion Gap (5-15) BUN (7-18) mg/dL Creatinine (0.7-1.3) mg/dL Est Cr Clr Drug Dosing mL/min Estimated GFR (MDRD) (>60) mL/min BUN/Creatinine Ratio (14-18) Glucose (74-106) mg/dL POC Glucose 169 H 127 H 111 H (70-99) mg/dL Hemoglobin A1c ( - 5.6) % Lactic Acid (0.4-2.0) mmol/L Calcium (8.5-10.1) mg/dL Total Bilirubin (0.2-1.0) mg/dL AST (15-37) U/L ALT (16-63) U/L Alkaline Phosphatase (46-116) U/L Troponin I (0.00-0.056) ng/mL NT-Pro-B Natriuret Pep (0-125) pg/mL Total Protein (6.4-8.2) g/dl Albumin (3.4-5.0) g/dl Globulin gm/dL Albumin/Globulin Ratio (1-2) Procalcitonin ng/mL 01/17/21 01/17/21 01/17/21 Range/Units 12:06 13:01 14:04 WBC (4.23-9.07) K/mm3 RBC (4.63-6.08) M/mm3 Hgb (13.7-17.5) gm/dl Hct (40.1-51.0) % MCV (79.0-92.2) fl MCH (25.7-32.2) pg MCHC (32.2-35.5) g/dl RDW Std Deviation (35.1-43.9) fL Plt Count (163-337) K/mm3 MPV (9.4-12.3) fl Neut % (Auto) (34.0-67.9) % Lymph % (Auto) (21.8-53.1) % Tift % (Auto) (5.3-12.2) % Eos % (Auto) (0.8-7.0) Baso % (Auto) (0.1-1.2) % Neut # (Auto) (1.78-5.38) K/mm3 Lymph # (Auto) (1.32-3.57) K/mm3 Tift # (Auto) (0.30-0.82) K/mm3 Eos # (Auto) (0.04-0.54) K/mm3 Baso # (Auto) (0.01-0.08) K/mm3 Sodium (136-145) mEq/L Potassium (3.5-5.1) mEq/L Chloride (98-107) mEq/L Carbon Dioxide (21-32) mEq/L Anion Gap (5-15) BUN (7-18) mg/dL Creatinine (0.7-1.3) mg/dL Est Cr Clr Drug Dosing mL/min Estimated GFR (MDRD) (>60) mL/min BUN/Creatinine Ratio (14-18) Glucose (74-106) mg/dL POC Glucose 114 H 116 H 131 H (70-99) mg/dL Hemoglobin A1c ( - 5.6) % Lactic Acid (0.4-2.0) mmol/L Calcium (8.5-10.1) mg/dL Total Bilirubin (0.2-1.0) mg/dL AST (15-37) U/L ALT (16-63) U/L Alkaline Phosphatase (46-116) U/L Troponin I (0.00-0.056) ng/mL NT-Pro-B Natriuret Pep (0-125) pg/mL Total Protein (6.4-8.2) g/dl Albumin (3.4-5.0) g/dl Globulin gm/dL Albumin/Globulin Ratio (1-2) Procalcitonin ng/mL 01/17/21 01/17/21 01/17/21 Range/Units 15:01 16:00 16:50 WBC (4.23-9.07) K/mm3 RBC (4.63-6.08) M/mm3 Hgb (13.7-17.5) gm/dl Hct (40.1-51.0) % MCV (79.0-92.2) fl MCH (25.7-32.2) pg MCHC (32.2-35.5) g/dl RDW Std Deviation (35.1-43.9) fL Plt Count (163-337) K/mm3 MPV (9.4-12.3) fl Neut % (Auto) (34.0-67.9) % Lymph % (Auto) (21.8-53.1) % Tift % (Auto) (5.3-12.2) % Eos % (Auto) (0.8-7.0) Baso % (Auto) (0.1-1.2) % Neut # (Auto) (1.78-5.38) K/mm3 Lymph # (Auto) (1.32-3.57) K/mm3 Tift # (Auto) (0.30-0.82) K/mm3 Eos # (Auto) (0.04-0.54) K/mm3 Baso # (Auto) (0.01-0.08) K/mm3 Sodium (136-145) mEq/L Potassium (3.5-5.1) mEq/L Chloride (98-107) mEq/L Carbon Dioxide (21-32) mEq/L Anion Gap (5-15) BUN (7-18) mg/dL Creatinine (0.7-1.3) mg/dL Est Cr Clr Drug Dosing mL/min Estimated GFR (MDRD) (>60) mL/min BUN/Creatinine Ratio (14-18) Glucose (74-106) mg/dL POC Glucose 193 H 311 H (70-99) mg/dL Hemoglobin A1c ( - 5.6) % Lactic Acid (0.4-2.0) mmol/L Calcium (8.5-10.1) mg/dL Total Bilirubin (0.2-1.0) mg/dL AST (15-37) U/L ALT (16-63) U/L Alkaline Phosphatase (46-116) U/L Troponin I (0.00-0.056) ng/mL NT-Pro-B Natriuret Pep 515 H (0-125) pg/mL Total Protein (6.4-8.2) g/dl Albumin (3.4-5.0) g/dl Globulin gm/dL Albumin/Globulin Ratio (1-2) Procalcitonin ng/mL 01/17/21 01/17/21 01/17/21 Range/Units 16:50 16:51 16:51 WBC (4.23-9.07) K/mm3 RBC (4.63-6.08) M/mm3 Hgb (13.7-17.5) gm/dl Hct (40.1-51.0) % MCV (79.0-92.2) fl MCH (25.7-32.2) pg MCHC (32.2-35.5) g/dl RDW Std Deviation (35.1-43.9) fL Plt Count (163-337) K/mm3 MPV (9.4-12.3) fl Neut % (Auto) (34.0-67.9) % Lymph % (Auto) (21.8-53.1) % Tift % (Auto) (5.3-12.2) % Eos % (Auto) (0.8-7.0) Baso % (Auto) (0.1-1.2) % Neut # (Auto) (1.78-5.38) K/mm3 Lymph # (Auto) (1.32-3.57) K/mm3 Tift # (Auto) (0.30-0.82) K/mm3 Eos # (Auto) (0.04-0.54) K/mm3 Baso # (Auto) (0.01-0.08) K/mm3 Sodium 140 (136-145) mEq/L Potassium 3.6 (3.5-5.1) mEq/L Chloride 107 (98-107) mEq/L Carbon Dioxide 13 L (21-32) mEq/L Anion Gap 23.6 H (5-15) BUN 11 (7-18) mg/dL Creatinine 1.3 (0.7-1.3) mg/dL Est Cr Clr Drug Dosing 68.78 mL/min Estimated GFR (MDRD) > 60 (>60) mL/min BUN/Creatinine Ratio 8.5 L (14-18) Glucose 270 H (74-106) mg/dL POC Glucose (70-99) mg/dL Hemoglobin A1c ( - 5.6) % Lactic Acid 5.3 H* (0.4-2.0) mmol/L Calcium 7.0 L (8.5-10.1) mg/dL Total Bilirubin (0.2-1.0) mg/dL AST (15-37) U/L ALT (16-63) U/L Alkaline Phosphatase (46-116) U/L Troponin I < 0.017 (0.00-0.056) ng/mL NT-Pro-B Natriuret Pep (0-125) pg/mL Total Protein (6.4-8.2) g/dl Albumin (3.4-5.0) g/dl Globulin gm/dL Albumin/Globulin Ratio (1-2) Procalcitonin ng/mL 01/17/21 01/17/21 01/17/21 Range/Units 17:00 18:00 18:57 WBC (4.23-9.07) K/mm3 RBC (4.63-6.08) M/mm3 Hgb (13.7-17.5) gm/dl Hct (40.1-51.0) % MCV (79.0-92.2) fl MCH (25.7-32.2) pg MCHC (32.2-35.5) g/dl RDW Std Deviation (35.1-43.9) fL Plt Count (163-337) K/mm3 MPV (9.4-12.3) fl Neut % (Auto) (34.0-67.9) % Lymph % (Auto) (21.8-53.1) % Tift % (Auto) (5.3-12.2) % Eos % (Auto) (0.8-7.0) Baso % (Auto) (0.1-1.2) % Neut # (Auto) (1.78-5.38) K/mm3 Lymph # (Auto) (1.32-3.57) K/mm3 Tift # (Auto) (0.30-0.82) K/mm3 Eos # (Auto) (0.04-0.54) K/mm3 Baso # (Auto) (0.01-0.08) K/mm3 Sodium (136-145) mEq/L Potassium (3.5-5.1) mEq/L Chloride (98-107) mEq/L Carbon Dioxide (21-32) mEq/L Anion Gap (5-15) BUN (7-18) mg/dL Creatinine (0.7-1.3) mg/dL Est Cr Clr Drug Dosing mL/min Estimated GFR (MDRD) (>60) mL/min BUN/Creatinine Ratio (14-18) Glucose (74-106) mg/dL POC Glucose 234 H 167 H 145 H (70-99) mg/dL Hemoglobin A1c ( - 5.6) % Lactic Acid (0.4-2.0) mmol/L Calcium (8.5-10.1) mg/dL Total Bilirubin (0.2-1.0) mg/dL AST (15-37) U/L ALT (16-63) U/L Alkaline Phosphatase (46-116) U/L Troponin I (0.00-0.056) ng/mL NT-Pro-B Natriuret Pep (0-125) pg/mL Total Protein (6.4-8.2) g/dl Albumin (3.4-5.0) g/dl Globulin gm/dL Albumin/Globulin Ratio (1-2) Procalcitonin ng/mL 01/17/21 01/17/21 01/17/21 Range/Units 20:02 20:06 20:06 WBC (4.23-9.07) K/mm3 RBC (4.63-6.08) M/mm3 Hgb (13.7-17.5) gm/dl Hct (40.1-51.0) % MCV (79.0-92.2) fl MCH (25.7-32.2) pg MCHC (32.2-35.5) g/dl RDW Std Deviation (35.1-43.9) fL Plt Count (163-337) K/mm3 MPV (9.4-12.3) fl Neut % (Auto) (34.0-67.9) % Lymph % (Auto) (21.8-53.1) % Tift % (Auto) (5.3-12.2) % Eos % (Auto) (0.8-7.0) Baso % (Auto) (0.1-1.2) % Neut # (Auto) (1.78-5.38) K/mm3 Lymph # (Auto) (1.32-3.57) K/mm3 Tift # (Auto) (0.30-0.82) K/mm3 Eos # (Auto) (0.04-0.54) K/mm3 Baso # (Auto) (0.01-0.08) K/mm3 Sodium 142 (136-145) mEq/L Potassium 3.8 (3.5-5.1) mEq/L Chloride 107 (98-107) mEq/L Carbon Dioxide 12 L (21-32) mEq/L Anion Gap 26.8 H (5-15) BUN 9 (7-18) mg/dL Creatinine 1.3 (0.7-1.3) mg/dL Est Cr Clr Drug Dosing 68.78 mL/min Estimated GFR (MDRD) > 60 (>60) mL/min BUN/Creatinine Ratio 6.9 L (14-18) Glucose 157 H (74-106) mg/dL POC Glucose 148 H (70-99) mg/dL Hemoglobin A1c ( - 5.6) % Lactic Acid 9.2 H* (0.4-2.0) mmol/L Calcium 7.8 L (8.5-10.1) mg/dL Total Bilirubin (0.2-1.0) mg/dL AST (15-37) U/L ALT (16-63) U/L Alkaline Phosphatase (46-116) U/L Troponin I (0.00-0.056) ng/mL NT-Pro-B Natriuret Pep (0-125) pg/mL Total Protein (6.4-8.2) g/dl Albumin (3.4-5.0) g/dl Globulin gm/dL Albumin/Globulin Ratio (1-2) Procalcitonin ng/mL 01/17/21 01/17/21 01/17/21 Range/Units 21:00 22:03 22:56 WBC (4.23-9.07) K/mm3 RBC (4.63-6.08) M/mm3 Hgb (13.7-17.5) gm/dl Hct (40.1-51.0) % MCV (79.0-92.2) fl MCH (25.7-32.2) pg MCHC (32.2-35.5) g/dl RDW Std Deviation (35.1-43.9) fL Plt Count (163-337) K/mm3 MPV (9.4-12.3) fl Neut % (Auto) (34.0-67.9) % Lymph % (Auto) (21.8-53.1) % Tift % (Auto) (5.3-12.2) % Eos % (Auto) (0.8-7.0) Baso % (Auto) (0.1-1.2) % Neut # (Auto) (1.78-5.38) K/mm3 Lymph # (Auto) (1.32-3.57) K/mm3 Tift # (Auto) (0.30-0.82) K/mm3 Eos # (Auto) (0.04-0.54) K/mm3 Baso # (Auto) (0.01-0.08) K/mm3 Sodium (136-145) mEq/L Potassium (3.5-5.1) mEq/L Chloride (98-107) mEq/L Carbon Dioxide (21-32) mEq/L Anion Gap (5-15) BUN (7-18) mg/dL Creatinine (0.7-1.3) mg/dL Est Cr Clr Drug Dosing mL/min Estimated GFR (MDRD) (>60) mL/min BUN/Creatinine Ratio (14-18) Glucose (74-106) mg/dL POC Glucose 226 H 142 H 116 H (70-99) mg/dL Hemoglobin A1c ( - 5.6) % Lactic Acid (0.4-2.0) mmol/L Calcium (8.5-10.1) mg/dL Total Bilirubin (0.2-1.0) mg/dL AST (15-37) U/L ALT (16-63) U/L Alkaline Phosphatase (46-116) U/L Troponin I (0.00-0.056) ng/mL NT-Pro-B Natriuret Pep (0-125) pg/mL Total Protein (6.4-8.2) g/dl Albumin (3.4-5.0) g/dl Globulin gm/dL Albumin/Globulin Ratio (1-2) Procalcitonin ng/mL 01/17/21 01/17/21 01/18/21 Range/Units 23:09 23:57 01:07 WBC (4.23-9.07) K/mm3 RBC (4.63-6.08) M/mm3 Hgb (13.7-17.5) gm/dl Hct (40.1-51.0) % MCV (79.0-92.2) fl MCH (25.7-32.2) pg MCHC (32.2-35.5) g/dl RDW Std Deviation (35.1-43.9) fL Plt Count (163-337) K/mm3 MPV (9.4-12.3) fl Neut % (Auto) (34.0-67.9) % Lymph % (Auto) (21.8-53.1) % Tift % (Auto) (5.3-12.2) % Eos % (Auto) (0.8-7.0) Baso % (Auto) (0.1-1.2) % Neut # (Auto) (1.78-5.38) K/mm3 Lymph # (Auto) (1.32-3.57) K/mm3 Tift # (Auto) (0.30-0.82) K/mm3 Eos # (Auto) (0.04-0.54) K/mm3 Baso # (Auto) (0.01-0.08) K/mm3 Sodium (136-145) mEq/L Potassium (3.5-5.1) mEq/L Chloride (98-107) mEq/L Carbon Dioxide (21-32) mEq/L Anion Gap (5-15) BUN (7-18) mg/dL Creatinine (0.7-1.3) mg/dL Est Cr Clr Drug Dosing mL/min Estimated GFR (MDRD) (>60) mL/min BUN/Creatinine Ratio (14-18) Glucose (74-106) mg/dL POC Glucose 126 H 186 H (70-99) mg/dL Hemoglobin A1c ( - 5.6) % Lactic Acid 9.3 H* (0.4-2.0) mmol/L Calcium (8.5-10.1) mg/dL Total Bilirubin (0.2-1.0) mg/dL AST (15-37) U/L ALT (16-63) U/L Alkaline Phosphatase (46-116) U/L Troponin I (0.00-0.056) ng/mL NT-Pro-B Natriuret Pep (0-125) pg/mL Total Protein (6.4-8.2) g/dl Albumin (3.4-5.0) g/dl Globulin gm/dL Albumin/Globulin Ratio (1-2) Procalcitonin ng/mL 01/18/21 01/18/21 01/18/21 Range/Units 01:16 01:16 01:57 WBC (4.23-9.07) K/mm3 RBC (4.63-6.08) M/mm3 Hgb (13.7-17.5) gm/dl Hct (40.1-51.0) % MCV (79.0-92.2) fl MCH (25.7-32.2) pg MCHC (32.2-35.5) g/dl RDW Std Deviation (35.1-43.9) fL Plt Count (163-337) K/mm3 MPV (9.4-12.3) fl Neut % (Auto) (34.0-67.9) % Lymph % (Auto) (21.8-53.1) % Tift % (Auto) (5.3-12.2) % Eos % (Auto) (0.8-7.0) Baso % (Auto) (0.1-1.2) % Neut # (Auto) (1.78-5.38) K/mm3 Lymph # (Auto) (1.32-3.57) K/mm3 Tift # (Auto) (0.30-0.82) K/mm3 Eos # (Auto) (0.04-0.54) K/mm3 Baso # (Auto) (0.01-0.08) K/mm3 Sodium 140 (136-145) mEq/L Potassium 3.7 (3.5-5.1) mEq/L Chloride 107 (98-107) mEq/L Carbon Dioxide 16 L (21-32) mEq/L Anion Gap 20.7 H (5-15) BUN 9 (7-18) mg/dL Creatinine 1.2 (0.7-1.3) mg/dL Est Cr Clr Drug Dosing 74.51 mL/min Estimated GFR (MDRD) > 60 (>60) mL/min BUN/Creatinine Ratio 7.5 L (14-18) Glucose 228 H (74-106) mg/dL POC Glucose 243 H (70-99) mg/dL Hemoglobin A1c ( - 5.6) % Lactic Acid 3.5 H* (0.4-2.0) mmol/L Calcium 7.4 L (8.5-10.1) mg/dL Total Bilirubin (0.2-1.0) mg/dL AST (15-37) U/L ALT (16-63) U/L Alkaline Phosphatase (46-116) U/L Troponin I (0.00-0.056) ng/mL NT-Pro-B Natriuret Pep (0-125) pg/mL Total Protein (6.4-8.2) g/dl Albumin (3.4-5.0) g/dl Globulin gm/dL Albumin/Globulin Ratio (1-2) Procalcitonin ng/mL 01/18/21 01/18/21 01/18/21 Range/Units 03:02 03:58 05:01 WBC (4.23-9.07) K/mm3 RBC (4.63-6.08) M/mm3 Hgb (13.7-17.5) gm/dl Hct (40.1-51.0) % MCV (79.0-92.2) fl MCH (25.7-32.2) pg MCHC (32.2-35.5) g/dl RDW Std Deviation (35.1-43.9) fL Plt Count (163-337) K/mm3 MPV (9.4-12.3) fl Neut % (Auto) (34.0-67.9) % Lymph % (Auto) (21.8-53.1) % Tift % (Auto) (5.3-12.2) % Eos % (Auto) (0.8-7.0) Baso % (Auto) (0.1-1.2) % Neut # (Auto) (1.78-5.38) K/mm3 Lymph # (Auto) (1.32-3.57) K/mm3 Tift # (Auto) (0.30-0.82) K/mm3 Eos # (Auto) (0.04-0.54) K/mm3 Baso # (Auto) (0.01-0.08) K/mm3 Sodium (136-145) mEq/L Potassium (3.5-5.1) mEq/L Chloride (98-107) mEq/L Carbon Dioxide (21-32) mEq/L Anion Gap (5-15) BUN (7-18) mg/dL Creatinine (0.7-1.3) mg/dL Est Cr Clr Drug Dosing mL/min Estimated GFR (MDRD) (>60) mL/min BUN/Creatinine Ratio (14-18) Glucose (74-106) mg/dL POC Glucose 220 H 197 H 186 H (70-99) mg/dL Hemoglobin A1c ( - 5.6) % Lactic Acid (0.4-2.0) mmol/L Calcium (8.5-10.1) mg/dL Total Bilirubin (0.2-1.0) mg/dL AST (15-37) U/L ALT (16-63) U/L Alkaline Phosphatase (46-116) U/L Troponin I (0.00-0.056) ng/mL NT-Pro-B Natriuret Pep (0-125) pg/mL Total Protein (6.4-8.2) g/dl Albumin (3.4-5.0) g/dl Globulin gm/dL Albumin/Globulin Ratio (1-2) Procalcitonin ng/mL 01/18/21 01/18/21 01/18/21 Range/Units 05:29 05:29 05:29 WBC 8.88 (4.23-9.07) K/mm3 RBC 3.41 L (4.63-6.08) M/mm3 Hgb 10.4 L D (13.7-17.5) gm/dl Hct 29.9 L (40.1-51.0) % MCV 87.7 D (79.0-92.2) fl MCH 30.5 (25.7-32.2) pg MCHC 34.8 (32.2-35.5) g/dl RDW Std Deviation 47.6 H (35.1-43.9) fL Plt Count 157 L D (163-337) K/mm3 MPV 8.5 L (9.4-12.3) fl Neut % (Auto) 79.2 H (34.0-67.9) % Lymph % (Auto) 11.4 L (21.8-53.1) % Tift % (Auto) 9.1 (5.3-12.2) % Eos % (Auto) 0 L (0.8-7.0) Baso % (Auto) 0.1 (0.1-1.2) % Neut # (Auto) 7.03 H (1.78-5.38) K/mm3 Lymph # (Auto) 1.01 L (1.32-3.57) K/mm3 Tift # (Auto) 0.81 (0.30-0.82) K/mm3 Eos # (Auto) 0.00 L (0.04-0.54) K/mm3 Baso # (Auto) 0.01 (0.01-0.08) K/mm3 Sodium (136-145) mEq/L Potassium (3.5-5.1) mEq/L Chloride (98-107) mEq/L Carbon Dioxide (21-32) mEq/L Anion Gap (5-15) BUN (7-18) mg/dL Creatinine (0.7-1.3) mg/dL Est Cr Clr Drug Dosing mL/min Estimated GFR (MDRD) (>60) mL/min BUN/Creatinine Ratio (14-18) Glucose (74-106) mg/dL POC Glucose (70-99) mg/dL Hemoglobin A1c 10.6 H ( - 5.6) % Lactic Acid 9.1 H* (0.4-2.0) mmol/L Calcium (8.5-10.1) mg/dL Total Bilirubin (0.2-1.0) mg/dL AST (15-37) U/L ALT (16-63) U/L Alkaline Phosphatase (46-116) U/L Troponin I (0.00-0.056) ng/mL NT-Pro-B Natriuret Pep (0-125) pg/mL Total Protein (6.4-8.2) g/dl Albumin (3.4-5.0) g/dl Globulin gm/dL Albumin/Globulin Ratio (1-2) Procalcitonin ng/mL 01/18/21 01/18/21 01/18/21 Range/Units 06:02 06:56 07:03 WBC (4.23-9.07) K/mm3 RBC (4.63-6.08) M/mm3 Hgb (13.7-17.5) gm/dl Hct (40.1-51.0) % MCV (79.0-92.2) fl MCH (25.7-32.2) pg MCHC (32.2-35.5) g/dl RDW Std Deviation (35.1-43.9) fL Plt Count (163-337) K/mm3 MPV (9.4-12.3) fl Neut % (Auto) (34.0-67.9) % Lymph % (Auto) (21.8-53.1) % [place] % (Auto) (5.3-12.2) % Eos % (Auto) (0.8-7.0) Baso % (Auto) (0.1-1.2) % Neut # (Auto) (1.78-5.38) K/mm3 Lymph # (Auto) (1.32-3.57) K/mm3 [place] # (Auto) (0.30-0.82) K/mm3 Eos # (Auto) (0.04-0.54) K/mm3 Baso # (Auto) (0.01-0.08) K/mm3 Sodium 141 (136-145) mEq/L Potassium 3.7 (3.5-5.1) mEq/L Chloride 108 H (98-107) mEq/L Carbon Dioxide 13 L (21-32) mEq/L Anion Gap 23.7 H (5-15) BUN 8 (7-18) mg/dL Creatinine 1.3 (0.7-1.3) mg/dL Est Cr Clr Drug Dosing 70.02 mL/min Estimated GFR (MDRD) > 60 (>60) mL/min BUN/Creatinine Ratio 6.2 L (14-18) Glucose 217 H (74-106) mg/dL POC Glucose 245 H 304 H (70-99) mg/dL Hemoglobin A1c ( - 5.6) % Lactic Acid (0.4-2.0) mmol/L Calcium 7.3 L (8.5-10.1) mg/dL Total Bilirubin 0.5 (0.2-1.0) mg/dL AST 64 H (15-37) U/L ALT 95 H (16-63) U/L Alkaline Phosphatase 94 (46-116) U/L Troponin I (0.00-0.056) ng/mL NT-Pro-B Natriuret Pep (0-125) pg/mL Total Protein 5.3 L (6.4-8.2) g/dl Albumin 2.3 L (3.4-5.0) g/dl Globulin 3.0 gm/dL Albumin/Globulin Ratio 0.8 L (1-2) Procalcitonin ng/mL 01/18/21 01/18/21 01/18/21 Range/Units 08:10 08:11 09:00 WBC (4.23-9.07) K/mm3 RBC (4.63-6.08) M/mm3 Hgb (13.7-17.5) gm/dl Hct (40.1-51.0) % MCV (79.0-92.2) fl MCH (25.7-32.2) pg MCHC (32.2-35.5) g/dl RDW Std Deviation (35.1-43.9) fL Plt Count (163-337) K/mm3 MPV (9.4-12.3) fl Neut % (Auto) (34.0-67.9) % Lymph % (Auto) (21.8-53.1) % Tift % (Auto) (5.3-12.2) % Eos % (Auto) (0.8-7.0) Baso % (Auto) (0.1-1.2) % Neut # (Auto) (1.78-5.38) K/mm3 Lymph # (Auto) (1.32-3.57) K/mm3 [place]ift # (Auto) (0.30-0.82) K/mm3 Eos # (Auto) (0.04-0.54) K/mm3 Baso # (Auto) (0.01-0.08) K/mm3 Sodium (136-145) mEq/L Potassium (3.5-5.1) mEq/L Chloride (98-107) mEq/L Carbon Dioxide (21-32) mEq/L Anion Gap (5-15) BUN (7-18) mg/dL Creatinine (0.7-1.3) mg/dL Est Cr Clr Drug Dosing mL/min Estimated GFR (MDRD) (>60) mL/min BUN/Creatinine Ratio (14-18) Glucose (74-106) mg/dL POC Glucose 276 H 257 H (70-99) mg/dL Hemoglobin A1c ( - 5.6) % Lactic Acid 7.2 H* (0.4-2.0) mmol/L Calcium (8.5-10.1) mg/dL Total Bilirubin (0.2-1.0) mg/dL AST (15-37) U/L ALT (16-63) U/L Alkaline Phosphatase (46-116) U/L Troponin I (0.00-0.056) ng/mL NT-Pro-B Natriuret Pep (0-125) pg/mL Total Protein (6.4-8.2) g/dl Albumin (3.4-5.0) g/dl Globulin gm/dL Albumin/Globulin Ratio (1-2) Procalcitonin ng/mL 01/18/21 01/18/21 01/18/21 Range/Units 10:03 11:01 11:30 WBC (4.23-9.07) K/mm3 RBC (4.63-6.08) M/mm3 Hgb (13.7-17.5) gm/dl Hct (40.1-51.0) % MCV (79.0-92.2) fl MCH (25.7-32.2) pg MCHC (32.2-35.5) g/dl RDW Std Deviation (35.1-43.9) fL Plt Count (163-337) K/mm3 MPV (9.4-12.3) fl Neut % (Auto) (34.0-67.9) % Lymph % (Auto) (21.8-53.1) % [place] % (Auto) (5.3-12.2) % Eos % (Auto) (0.8-7.0) Baso % (Auto) (0.1-1.2) % Neut # (Auto) (1.78-5.38) K/mm3 Lymph # (Auto) (1.32-3.57) K/mm3 [place] # (Auto) (0.30-0.82) K/mm3 Eos # (Auto) (0.04-0.54) K/mm3 Baso # (Auto) (0.01-0.08) K/mm3 Sodium 138 (136-145) mEq/L Potassium 3.7 (3.5-5.1) mEq/L Chloride 106 (98-107) mEq/L Carbon Dioxide 17 L (21-32) mEq/L Anion Gap 18.7 H (5-15) BUN 7 (7-18) mg/dL Creatinine 1.2 (0.7-1.3) mg/dL Est Cr Clr Drug Dosing 75.86 mL/min Estimated GFR (MDRD) > 60 (>60) mL/min BUN/Creatinine Ratio 5.8 L (14-18) Glucose 316 H (74-106) mg/dL POC Glucose 206 H 271 H (70-99) mg/dL Hemoglobin A1c ( - 5.6) % Lactic Acid (0.4-2.0) mmol/L Calcium 7.4 L (8.5-10.1) mg/dL Total Bilirubin (0.2-1.0) mg/dL AST (15-37) U/L ALT (16-63) U/L Alkaline Phosphatase (46-116) U/L Troponin I (0.00-0.056) ng/mL NT-Pro-B Natriuret Pep (0-125) pg/mL Total Protein (6.4-8.2) g/dl Albumin (3.4-5.0) g/dl Globulin gm/dL Albumin/Globulin Ratio (1-2) Procalcitonin ng/mL 01/18/21 01/18/21 Range/Units 12:00 13:08 WBC (4.23-9.07) K/mm3 RBC (4.63-6.08) M/mm3 Hgb (13.7-17.5) gm/dl Hct (40.1-51.0) % MCV (79.0-92.2) fl MCH (25.7-32.2) pg MCHC (32.2-35.5) g/dl RDW Std Deviation (35.1-43.9) fL Plt Count (163-337) K/mm3 MPV (9.4-12.3) fl Neut % (Auto) (34.0-67.9) % Lymph % (Auto) (21.8-53.1) % [place] % (Auto) (5.3-12.2) % Eos % (Auto) (0.8-7.0) Baso % (Auto) (0.1-1.2) % Neut # (Auto) (1.78-5.38) K/mm3 Lymph # (Auto) (1.32-3.57) K/mm3 [place] # (Auto) (0.30-0.82) K/mm3 Eos # (Auto) (0.04-0.54) K/mm3 Baso # (Auto) (0.01-0.08) K/mm3 Sodium (136-145) mEq/L Potassium (3.5-5.1) mEq/L Chloride (98-107) mEq/L Carbon Dioxide (21-32) mEq/L Anion Gap (5-15) BUN (7-18) mg/dL Creatinine (0.7-1.3) mg/dL Est Cr Clr Drug Dosing mL/min Estimated GFR (MDRD) (>60) mL/min BUN/Creatinine Ratio (14-18) Glucose (74-106) mg/dL POC Glucose 276 H 231 H (70-99) mg/dL Hemoglobin A1c ( - 5.6) % Lactic Acid (0.4-2.0) mmol/L Calcium (8.5-10.1) mg/dL Total Bilirubin (0.2-1.0) mg/dL AST (15-37) U/L ALT (16-63) U/L Alkaline Phosphatase (46-116) U/L Troponin I (0.00-0.056) ng/mL NT-Pro-B Natriuret Pep (0-125) pg/mL Total Protein (6.4-8.2) g/dl Albumin (3.4-5.0) g/dl Globulin gm/dL Albumin/Globulin Ratio (1-2) Procalcitonin ng/mL Result Diagrams: 01/18/21 05:29 01/18/21 11:30 Rosalio Results Last 24 hrs: Microbiology 01/16/21 22:00 Aerobic Blood Culture - Preliminary Blood NO GROWTH AFTER 1 DAY Anaerobic Blood Culture - Preliminary NO GROWTH AFTER 1 DAY 01/16/21 21:58 Aerobic Blood Culture - Preliminary Blood NO GROWTH AFTER 1 DAY Anaerobic Blood Culture - Preliminary NO GROWTH AFTER 1 DAY Sepsis Event Note - Evaluation Sepsis Screening Result: No Definite Risk - Focused Exam Vital Signs: Vital Signs Temp Temp Pulse Pulse Resp BP BP 01/18/21 13:00 36.7 C 108 H 18 123/80 01/18/21 12:00 36.7 C 107 H 18 116/72 01/18/21 11:00 36.7 C 112 H 18 115/64 01/18/21 10:00 36.7 C 105 H 18 122/80 01/18/21 09:00 36.7 C 100 18 125/90 01/18/21 08:20 116 H 120/82 01/18/21 08:00 36.8 C 116 H 18 120/82 01/18/21 07:00 36.8 C 128 H 16 125/70 01/18/21 06:25 01/18/21 06:00 116/64 01/18/21 05:00 130/81 01/18/21 04:00 36.8 C 20 120/86 01/18/21 03:00 113/76 01/18/21 02:00 112/74 Pulse Ox Pulse Ox 01/18/21 13:00 97 01/18/21 12:00 95 01/18/21 11:00 92 L 01/18/21 10:00 95 01/18/21 09:00 95 01/18/21 08:20 01/18/21 08:00 95 01/18/21 07:00 93 L 01/18/21 06:25 92 L 01/18/21 06:00 91 L 01/18/21 05:00 91 L 01/18/21 04:00 93 L 01/18/21 03:00 97 01/18/21 02:00 95 - Problem List Review Problem List Initiated/Reviewed/Updated: Yes - My Orders Last 24 Hours: My Active Orders 01/17/21 19:14 Metoprolol Tartrate [Lopressor] 2.5 mg IVPUSH Q10M PRN 01/17/21 19:30 Metoprolol Tartrate [Lopressor] 12.5 mg PO Q12HR 01/17/21 20:56 Blood Culture x2 Reflex Set [OM.PC] Stat 01/17/21 21:32 CULTURE BLOOD [BC] Stat PROCALCITONIN [REF] Urgent 01/17/21 21:36 CULTURE BLOOD [BC] Stat 01/17/21 23:07 Communication Order [RC] ASDIRECTED 01/17/21 23:15 Azithromycin [Zithromax] 500 mg Sodium Chloride 0.9% [Normal Saline (AdvBag)] 250 ml IV BEDTIME 01/18/21 06:00 Piperacillin/Tazobactam [Piperacil-Tazobact] 4.5 gm Sodium Chloride 0.9% [Normal Saline] 100 ml IV Q8HR 01/18/21 14:00 LACTIC ACID [CHEM] Q6H 01/18/21 15:00 BMP [BASIC METABOLIC PANEL,BMP] [CHEM] Q4H 01/18/21 19:00 BMP [BASIC METABOLIC PANEL,BMP] [CHEM] Q4H 01/18/21 20:00 LACTIC ACID [CHEM] Q6H 01/18/21 23:00 BMP [BASIC METABOLIC PANEL,BMP] [CHEM] Q4H 01/19/21 00:45 CBC WITH AUTO DIFF [HEME] DAILY COMPREHENSIVE METABOLIC PN,CMP [CHEM] DAILY 01/19/21 02:00 LACTIC ACID [CHEM] Q6H 01/19/21 03:00 BMP [BASIC METABOLIC PANEL,BMP] [CHEM] Q4H 01/19/21 05:00 MAGNESIUM [CHEM] Routine PHOSPHORUS [CHEM] Routine 01/19/21 07:00 BMP [BASIC METABOLIC PANEL,BMP] [CHEM] Q4H 01/19/21 08:00 LACTIC ACID [CHEM] Q6H 01/19/21 11:00 BMP [BASIC METABOLIC PANEL,BMP] [CHEM] Q4H 01/19/21 15:00 BMP [BASIC METABOLIC PANEL,BMP] [CHEM] Q4H 01/19/21 19:00 BMP [BASIC METABOLIC PANEL,BMP] [CHEM] Q4H 01/19/21 23:00 BMP [BASIC METABOLIC PANEL,BMP] [CHEM] Q4H 01/20/21 00:45 CBC WITH AUTO DIFF [HEME] DAILY COMPREHENSIVE METABOLIC PN,CMP [CHEM] DAILY 01/20/21 03:00 BMP [BASIC METABOLIC PANEL,BMP] [CHEM] Q4H 01/20/21 07:00 BMP [BASIC METABOLIC PANEL,BMP] [CHEM] Q4H 01/20/21 11:00 BMP [BASIC METABOLIC PANEL,BMP] [CHEM] Q4H 01/20/21 15:00 BMP [BASIC METABOLIC PANEL,BMP] [CHEM] Q4H 01/20/21 19:00 BMP [BASIC METABOLIC PANEL,BMP] [CHEM] Q4H 01/20/21 23:00 BMP [BASIC METABOLIC PANEL,BMP] [CHEM] Q4H 01/21/21 00:45 CBC WITH AUTO DIFF [HEME] DAILY COMPREHENSIVE METABOLIC PN,CMP [CHEM] DAILY 01/21/21 03:00 BMP [BASIC METABOLIC PANEL,BMP] [CHEM] Q4H 01/21/21 07:00 BMP [BASIC METABOLIC PANEL,BMP] [CHEM] Q4H 01/21/21 11:00 BMP [BASIC METABOLIC PANEL,BMP] [CHEM] Q4H 01/21/21 15:00 BMP [BASIC METABOLIC PANEL,BMP] [CHEM] Q4H 01/21/21 19:00 BMP [BASIC METABOLIC PANEL,BMP] [CHEM] Q4H 01/21/21 23:00 BMP [BASIC METABOLIC PANEL,BMP] [CHEM] Q4H 01/22/21 00:45 CBC WITH AUTO DIFF [HEME] DAILY COMPREHENSIVE METABOLIC PN,CMP [CHEM] DAILY - Plan Plan:: Patient is a 25-year-old male with a history of type 1 diabetes and medical noncompliance who was brought to the ER due to unresponsiveness. Patient was found unresponsive by a friend. Patient has had multiple ER visits due to AMS and DKA in the past. Assessment: 1. Acute hypoxic respiratory failure 2. DKA 3. Pneumonia, bilateral 4. AMS 5. Sepsis 2nd to pneumonia 6. DM type 1 7. Medical noncompliance 8. Leukocytosis -resolved 9. FABIOLA or FABIOLA on CKD, creatinine 1.2 on 08/14/2020 10. Elevation of liver enzymes 11. Substance abuse - UDS positive for cocaine 12. Tobacco abuse disorder 13. Depression Plan: 1. Continue to monitor in the ICU ICU. Card monitor, pulse ox, oxygen therapy if necessary 2. For resident failure, etiology includes pneumonia Pulse ox and oxygen therapy to keep oxygen saturation greater than 92% 3. Chest CT -diffuse consolidation within both posterior lung bases. Patient was positive for COVID-19. At this moment I would treat the patient pneumonia as a community-acquired pneumonia and aspiration pneumonia instead of Covid pneumonia Zosyn and azithromycin. Will add steroid if his pneumonia does not get improved. Sputum culture 4. Bicarbonate 13, Anion gap of 23.7 Creatinine 1.3 Continue insulin drip Continue D5 + potassium 20 MDQ + 1/2 normal saline 100 cc/h BMP every 2 hours Accu-Chek every 1 hour museum educator consulted 5. For AMS, improving. Etiologies include clinical HHS (glucose initially was a 900), sepsis/infection, dehydration, other metabolic process CT of the head negative for acute change. 6. Patient has met sepsis criteria. Blood culture. IV resuscitation. Antibiotics. Trending lactic acid 7. N.p.o. Patient home medication includes Lantus 20 units daily. 8. 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 Patient has had multiple DKA in the past. 9. Creatinine normalized. Avoid nephrotoxic meds. Repeat the renal function morning 10. Patient seems to have chronic elevation of liver enzymes. Repeat the liver enzymes in the morning. Follow with the PCP 11. Urine drug screen positive for cocaine. Troponin negative x 2. Aspirin and lorazepam. Social work consulted for substance abuse and tobacco abuse 12. Telemetry psych consult for depression 13. DVT prophylaxis: Lovenox 14. CODE STATUS: Full
--- NOTE | 2021-01-18 16:15 | CONS ---
CONSULTING PHYSICIAN: Gonzalo Zamora MD DATE OF CONSULTATION: 01/18/2021 This is a 60-minute clinical event. Site where the services are provided are [facility] in [place], [place]. Site where the services are provided from our offices in [facility]. Length of service for this 60-minute inpatient telemedicine event is 60 minutes. IDENTIFICATION: The patient is a 25-year-old male who was admitted to the inpatient MICU at [facility] in [place], [place]. He is seen for psychiatric consultation per the request of staff attending, Dr. Ortiz and his treatment team. CHIEF COMPLAINT: "I don't know. I ate something on Thursday and the next thing I knew I was waking up here." HISTORY OF PRESENT ILLNESS: The patient is a 25-year-old male who staff reports was found unresponsive by a roommate and was admitted in the morning on 01/17/2021. The patient is being assessed for possible depression as well as possible complicating factors of marijuana and cocaine use that might be contributory to his current presentation. Staff is also reporting that he was recently diagnosed with pneumonia and also had a blood glucose level of over 900 on admission. On interview, the patient is acknowledging that "Thursday I did a line of cocaine," but he is denying any other illicit substance use or alcohol use of late. He states he used to drink quite a bit, but he has not done that in a long while, and he states that before coming in everything was pretty good as far as he was concerned. His mood was good. He was sleeping well. He had good energy levels. He states at this point in time, he is "just tired" and feels weak, but he is hoping that he can get better and he is strong enough for discharge by the end of the weekend because "my son has a birthday green party" coming up. Otherwise, the patient denies any suicidal or homicidal. He denies any psychotic, delusional, or paranoid symptoms, and he does not feel that he needs any type of psychiatric medications at this point in time, but rather just to get better from his lung infection and his hyperglycemia. MEDICATIONS: At time of admission is Lantus insulin. ALLERGIES: No known drug allergies. PAST MEDICAL HISTORY: 1. Type 1 diabetes diagnosed at 13 years of age. 2. History of pneumonia. 3. History of hyperglycemia on admission with blood sugar over 900. REVIEW OF SYSTEMS: Aside from endocrine and pulmonary, all other major organ systems are negative at this point in time for acute difficulties or complications. FAMILY PSYCHIATRIC AND CD HISTORY: The patient denies. PAST PSYCHIATRIC AND CD HISTORY: The patient denies any previous psychiatric hospitalizations or chemical dependency treatments. He denies any previous suicide attempts and reports no history of self-injurious behaviors or eating disorder history in the past. He denies any past psychiatric medication history. SOCIAL HISTORY: The patient was born and raised in [place], [place]. He states that he has been living in [place], [place] for the past 8 years and moved up to the area after his grandfather had a heart attack. His highest level of education is 10th grade. He has never been , not involved in any current relationships. He has one son 6-year-old from a previous relationship who lives with him and his grandparents when he is not in the hospital. The patient himself works at [employer] when he is not in the hospital. He denies any prior service or any current legal difficulties. He is Congregation in terms of his eileen formation. He enjoys outdoors activities and spending time with his 6-year-old son. MENTAL STATUS EXAM: The patient is a 25-year-old white male in no apparent distress. Speech is of regular rate and rhythm. The patient is cognitively oriented x3. Psychomotor activity is within normal limits. There is no abnormal motor movements or tics observed. Gait and station are not observed. This patient was lying in bed during the time of consult. Mood is "just tired." Affect is consistent with stated mood, but cooperative overall for the purposes of the inpatient consult. There is no behavioral or stated evidence of acute suicidal or homicidal ideation or acute psychotic, delusional, or paranoid symptoms. Thought processes appear organized. There are no manic symptoms or loose associations evident. Judgment and insight appear unimpaired at this point in time. Motivation for help is good. VITALS: 117/77, 108, 20, 98.7 degrees. IMPRESSION: [place] I: 1. Depression, not otherwise specified, F32.9. 2. Cocaine abuse, F14.10. 3. Possible history of cannabis abuse versus dependence per staff report, although the patient is denying it was still positive on UA, F12.10. [place] II: None. [place] III: 1. History of type 1 diabetes diagnosed at age 13. 2. History of pneumonia, currently being treated with IV antibiotics. 3. History of hyperglycemia with blood sugar greater than 900 on admission. [place] IV: Severe. [place] V: 60. PLAN: 1. Sobriety. 2. Other medications as dosed and prescribed by the patient's primary inpatient medical treatment team. 3. Would recommend holding off on any psychiatric medications or intervention at this point in time as there appears to be no underlying clinical level of depression or anxiety that needs to be treated at the moment. 4. Would recommend that the patient is unable to maintain sobriety on his own and that sobriety maintenance resources be explored whether they be a support group such as AA or NA or outpatient or inpatient CD treatment programs again if needed going forward. 5. Recommend that the patient followup with Outpatient Psychiatry if the patient does have breakthrough symptoms or anxiety going forward after he is medically stabilized and discharged back to the community. 6. We will follow up with the patient on an as-needed basis while he remains on the inpatient MICU at [facility] in [place], [place]. 7. We will follow up with the patient sooner if any complications in the interim. 8. Crisis plan is in place. MADHU /[id number]
[2021-01-18] MEDS: Metoprolol Tartrate 5 MG/5 ML SDV IVPUSH PRN (17:01)
[2021-01-18] MEDS: Azithromycin 500 MG in Sodium Chloride 0.9% 250 ML IV SCH (20:31)
[2021-01-18] MEDS: Enoxaparin 40 MG/0.4 ML Syringe SUBCUT SCH (20:35)
[2021-01-19] MEDS: D5 1/2 NS w/ 20 mEq/L KCl 1,000 ML IV SCH ×2 (05:52→17:58)
[2021-01-19] MEDS: Piperacillin/Tazobactam 4.5 GM in Sodium Chloride 0.9% 100 ML IV SCH ×3 (05:56→21:56)
[2021-01-19] MEDS: Metoprolol Tartrate 25 MG Tab PO SCH ×2 (08:02→20:13)
[2021-01-19] MEDS: Aspirin 81 MG Tab.Chew PO SCH (08:05)
[2021-01-19] MEDS: Pantoprazole 40 MG Vial IVPUSH SCH (08:05)
[2021-01-19] MEDS ORDERED: Magnesium Sulfate/Water 4 GM in Premix Bag 0.5 BAG IV ONE (08:54)
[2021-01-19] MEDS ORDERED: Potassium Phosphates 30 MMOLE in Sodium Chloride 0.9% 500 ML IV ONE ×2 (09:30→12:00)
[2021-01-19 09:37] LABS: VITAMIN D,25-HYDROXY 12.1 ng/ml (30.0-100.0)
[2021-01-19] MEDS: Potassium Chloride 10 MEQ in Premix Bag 1 BAG IV SCH ×2 (09:46→11:12)
--- NOTE | 2021-01-19 11:17 | PCM.PN ---
- General Info Date of Service: 01/19/21 Admission Dx/Problem (Free Text): Admission Diagnosis/Problem Admission Diagnosis/Problem Diabetic ketoacidosis Subjective Update: Patient is a 25-year-old male with a history of type 1 diabetes and medical noncompliance who was admitted for DKA. Today patient feels much better. Denies nausea, vomiting, abdominal pain. He is hungry. She still had tachycardia at times. Otherwise vital signs are acceptable. He no longer needs oxygen. WBC 9.53, platelets 133 Anion gap 15.5, potassium 3.5, sodium 140 Lactic acid of 5.3 - Review of Systems Systems Review Comment:: General: Reports: Weakness HEENT: Reports: No Symptoms Pulmonary: Reports: Shortness of Breath Cardiovascular: Reports: No Symptoms Gastrointestinal: Reports: No Symptoms Genitourinary: Reports: No Symptoms Musculoskeletal: Reports: No Symptoms Skin: Reports: No Symptoms Neurological: Reports: No Symptoms Psychiatric: Reports: No Symptoms - Patient Data Vitals - Most Recent: Last Vital Signs Temp 36.7 C 01/19/21 08:00 Pulse 98 01/19/21 08:02 Resp 18 01/19/21 08:00 BP 128/95 H 01/19/21 08:02 Pulse Ox 95 01/19/21 08:00 Weight - Most Recent: 54.431 kg I&O - Last 24 Hours: Intake & Output 01/18/21 01/19/21 01/19/21 22:59 06:59 14:59 Intake Total 250 1576 Output Total 1280 Balance -1030 1576 Lab Results Last 24 Hours: Laboratory Results - last 24 hr 01/17/21 01/18/21 01/18/21 Range/Units 21:32 11:01 11:30 WBC (4.23-9.07) K/mm3 RBC (4.63-6.08) M/mm3 Hgb (13.7-17.5) gm/dl Hct (40.1-51.0) % MCV (79.0-92.2) fl MCH (25.7-32.2) pg MCHC (32.2-35.5) g/dl RDW Std Deviation (35.1-43.9) fL Plt Count (163-337) K/mm3 MPV (9.4-12.3) fl Neut % (Auto) (34.0-67.9) % Lymph % (Auto) (21.8-53.1) % [place] % (Auto) (5.3-12.2) % Eos % (Auto) (0.8-7.0) Baso % (Auto) (0.1-1.2) % Neut # (Auto) (1.78-5.38) K/mm3 Lymph # (Auto) (1.32-3.57) K/mm3 [place] # (Auto) (0.30-0.82) K/mm3 Eos # (Auto) (0.04-0.54) K/mm3 Baso # (Auto) (0.01-0.08) K/mm3 Sodium 138 (136-145) mEq/L Potassium 3.7 (3.5-5.1) mEq/L Chloride 106 (98-107) mEq/L Carbon Dioxide 17 L (21-32) mEq/L Anion Gap 18.7 H (5-15) BUN 7 (7-18) mg/dL Creatinine 1.2 (0.7-1.3) mg/dL Est Cr Clr Drug Dosing 75.86 mL/min Estimated GFR (MDRD) > 60 (>60) mL/min BUN/Creatinine Ratio 5.8 L (14-18) Glucose 316 H (74-106) mg/dL POC Glucose 271 H (70-99) mg/dL Lactic Acid (0.4-2.0) mmol/L Calcium 7.4 L (8.5-10.1) mg/dL Phosphorus (2.6-4.7) mg/dL Magnesium (1.8-2.4) mg/dl Ferritin (26-388) ng/ml Total Bilirubin (0.2-1.0) mg/dL AST (15-37) U/L ALT (16-63) U/L Alkaline Phosphatase (46-116) U/L C-Reactive Protein (<1.0) mg/dL Total Protein (6.4-8.2) g/dl Albumin (3.4-5.0) g/dl Globulin gm/dL Albumin/Globulin Ratio (1-2) Vitamin D 25-Hydroxy (30.0-100.0) ng/ml Procalcitonin 0.38 H ng/mL 01/18/21 01/18/21 01/18/21 Range/Units 12:00 13:08 14:16 WBC (4.23-9.07) K/mm3 RBC (4.63-6.08) M/mm3 Hgb (13.7-17.5) gm/dl Hct (40.1-51.0) % MCV (79.0-92.2) fl MCH (25.7-32.2) pg MCHC (32.2-35.5) g/dl RDW Std Deviation (35.1-43.9) fL Plt Count (163-337) K/mm3 MPV (9.4-12.3) fl Neut % (Auto) (34.0-67.9) % Lymph % (Auto) (21.8-53.1) % [place] % (Auto) (5.3-12.2) % Eos % (Auto) (0.8-7.0) Baso % (Auto) (0.1-1.2) % Neut # (Auto) (1.78-5.38) K/mm3 Lymph # (Auto) (1.32-3.57) K/mm3 [place] # (Auto) (0.30-0.82) K/mm3 Eos # (Auto) (0.04-0.54) K/mm3 Baso # (Auto) (0.01-0.08) K/mm3 Sodium (136-145) mEq/L Potassium (3.5-5.1) mEq/L Chloride (98-107) mEq/L Carbon Dioxide (21-32) mEq/L Anion Gap (5-15) BUN (7-18) mg/dL Creatinine (0.7-1.3) mg/dL Est Cr Clr Drug Dosing mL/min Estimated GFR (MDRD) (>60) mL/min BUN/Creatinine Ratio (14-18) Glucose (74-106) mg/dL POC Glucose 276 H 231 H 209 H (70-99) mg/dL Lactic Acid (0.4-2.0) mmol/L Calcium (8.5-10.1) mg/dL Phosphorus (2.6-4.7) mg/dL Magnesium (1.8-2.4) mg/dl Ferritin (26-388) ng/ml Total Bilirubin (0.2-1.0) mg/dL AST (15-37) U/L ALT (16-63) U/L Alkaline Phosphatase (46-116) U/L C-Reactive Protein (<1.0) mg/dL Total Protein (6.4-8.2) g/dl Albumin (3.4-5.0) g/dl Globulin gm/dL Albumin/Globulin Ratio (1-2) Vitamin D 25-Hydroxy (30.0-100.0) ng/ml Procalcitonin ng/mL 01/18/21 01/18/21 01/18/21 Range/Units 14:46 14:46 15:03 WBC (4.23-9.07) K/mm3 RBC (4.63-6.08) M/mm3 Hgb (13.7-17.5) gm/dl Hct (40.1-51.0) % MCV (79.0-92.2) fl MCH (25.7-32.2) pg MCHC (32.2-35.5) g/dl RDW Std Deviation (35.1-43.9) fL Plt Count (163-337) K/mm3 MPV (9.4-12.3) fl Neut % (Auto) (34.0-67.9) % Lymph % (Auto) (21.8-53.1) % [place] % (Auto) (5.3-12.2) % Eos % (Auto) (0.8-7.0) Baso % (Auto) (0.1-1.2) % Neut # (Auto) (1.78-5.38) K/mm3 Lymph # (Auto) (1.32-3.57) K/mm3 [place] # (Auto) (0.30-0.82) K/mm3 Eos # (Auto) (0.04-0.54) K/mm3 Baso # (Auto) (0.01-0.08) K/mm3 Sodium 138 (136-145) mEq/L Potassium 3.8 (3.5-5.1) mEq/L Chloride 106 (98-107) mEq/L Carbon Dioxide 16 L (21-32) mEq/L Anion Gap 19.8 H (5-15) BUN 5 L (7-18) mg/dL Creatinine 1.2 (0.7-1.3) mg/dL Est Cr Clr Drug Dosing 75.86 mL/min Estimated GFR (MDRD) > 60 (>60) mL/min BUN/Creatinine Ratio 4.2 L (14-18) Glucose 258 H (74-106) mg/dL POC Glucose 247 H (70-99) mg/dL Lactic Acid 7.7 H* (0.4-2.0) mmol/L Calcium 7.9 L (8.5-10.1) mg/dL Phosphorus (2.6-4.7) mg/dL Magnesium (1.8-2.4) mg/dl Ferritin (26-388) ng/ml Total Bilirubin (0.2-1.0) mg/dL AST (15-37) U/L ALT (16-63) U/L Alkaline Phosphatase (46-116) U/L C-Reactive Protein (<1.0) mg/dL Total Protein (6.4-8.2) g/dl Albumin (3.4-5.0) g/dl Globulin gm/dL Albumin/Globulin Ratio (1-2) Vitamin D 25-Hydroxy (30.0-100.0) ng/ml Procalcitonin ng/mL 01/18/21 01/18/21 01/18/21 Range/Units 16:07 17:00 18:01 WBC (4.23-9.07) K/mm3 RBC (4.63-6.08) M/mm3 Hgb (13.7-17.5) gm/dl Hct (40.1-51.0) % MCV (79.0-92.2) fl MCH (25.7-32.2) pg MCHC (32.2-35.5) g/dl RDW Std Deviation (35.1-43.9) fL Plt Count (163-337) K/mm3 MPV (9.4-12.3) fl Neut % (Auto) (34.0-67.9) % Lymph % (Auto) (21.8-53.1) % [place] % (Auto) (5.3-12.2) % Eos % (Auto) (0.8-7.0) Baso % (Auto) (0.1-1.2) % Neut # (Auto) (1.78-5.38) K/mm3 Lymph # (Auto) (1.32-3.57) K/mm3 [place] # (Auto) (0.30-0.82) K/mm3 Eos # (Auto) (0.04-0.54) K/mm3 Baso # (Auto) (0.01-0.08) K/mm3 Sodium (136-145) mEq/L Potassium (3.5-5.1) mEq/L Chloride (98-107) mEq/L Carbon Dioxide (21-32) mEq/L Anion Gap (5-15) BUN (7-18) mg/dL Creatinine (0.7-1.3) mg/dL Est Cr Clr Drug Dosing mL/min Estimated GFR (MDRD) (>60) mL/min BUN/Creatinine Ratio (14-18) Glucose (74-106) mg/dL POC Glucose 254 H 227 H 293 H (70-99) mg/dL Lactic Acid (0.4-2.0) mmol/L Calcium (8.5-10.1) mg/dL Phosphorus (2.6-4.7) mg/dL Magnesium (1.8-2.4) mg/dl Ferritin (26-388) ng/ml Total Bilirubin (0.2-1.0) mg/dL AST (15-37) U/L ALT (16-63) U/L Alkaline Phosphatase (46-116) U/L C-Reactive Protein (<1.0) mg/dL Total Protein (6.4-8.2) g/dl Albumin (3.4-5.0) g/dl Globulin gm/dL Albumin/Globulin Ratio (1-2) Vitamin D 25-Hydroxy (30.0-100.0) ng/ml Procalcitonin ng/mL 01/18/21 01/18/21 01/18/21 Range/Units 19:00 19:30 19:30 WBC (4.23-9.07) K/mm3 RBC (4.63-6.08) M/mm3 Hgb (13.7-17.5) gm/dl Hct (40.1-51.0) % MCV (79.0-92.2) fl MCH (25.7-32.2) pg MCHC (32.2-35.5) g/dl RDW Std Deviation (35.1-43.9) fL Plt Count (163-337) K/mm3 MPV (9.4-12.3) fl Neut % (Auto) (34.0-67.9) % Lymph % (Auto) (21.8-53.1) % [place] % (Auto) (5.3-12.2) % Eos % (Auto) (0.8-7.0) Baso % (Auto) (0.1-1.2) % Neut # (Auto) (1.78-5.38) K/mm3 Lymph # (Auto) (1.32-3.57) K/mm3 [place] # (Auto) (0.30-0.82) K/mm3 Eos # (Auto) (0.04-0.54) K/mm3 Baso # (Auto) (0.01-0.08) K/mm3 Sodium 136 (136-145) mEq/L Potassium 3.8 (3.5-5.1) mEq/L Chloride 103 (98-107) mEq/L Carbon Dioxide 18 L (21-32) mEq/L Anion Gap 18.8 H (5-15) BUN 5 L (7-18) mg/dL Creatinine 1.3 (0.7-1.3) mg/dL Est Cr Clr Drug Dosing 70.02 mL/min Estimated GFR (MDRD) > 60 (>60) mL/min BUN/Creatinine Ratio 3.8 L (14-18) Glucose 295 H (74-106) mg/dL POC Glucose 301 H (70-99) mg/dL Lactic Acid 6.2 H* (0.4-2.0) mmol/L Calcium 7.6 L (8.5-10.1) mg/dL Phosphorus (2.6-4.7) mg/dL Magnesium (1.8-2.4) mg/dl Ferritin (26-388) ng/ml Total Bilirubin (0.2-1.0) mg/dL AST (15-37) U/L ALT (16-63) U/L Alkaline Phosphatase (46-116) U/L C-Reactive Protein (<1.0) mg/dL Total Protein (6.4-8.2) g/dl Albumin (3.4-5.0) g/dl Globulin gm/dL Albumin/Globulin Ratio (1-2) Vitamin D 25-Hydroxy (30.0-100.0) ng/ml Procalcitonin ng/mL 01/18/21 01/18/21 01/18/21 Range/Units 20:01 21:04 22:01 WBC (4.23-9.07) K/mm3 RBC (4.63-6.08) M/mm3 Hgb (13.7-17.5) gm/dl Hct (40.1-51.0) % MCV (79.0-92.2) fl MCH (25.7-32.2) pg MCHC (32.2-35.5) g/dl RDW Std Deviation (35.1-43.9) fL Plt Count (163-337) K/mm3 MPV (9.4-12.3) fl Neut % (Auto) (34.0-67.9) % Lymph % (Auto) (21.8-53.1) % [place] % (Auto) (5.3-12.2) % Eos % (Auto) (0.8-7.0) Baso % (Auto) (0.1-1.2) % Neut # (Auto) (1.78-5.38) K/mm3 Lymph # (Auto) (1.32-3.57) K/mm3 [place] # (Auto) (0.30-0.82) K/mm3 Eos # (Auto) (0.04-0.54) K/mm3 Baso # (Auto) (0.01-0.08) K/mm3 Sodium (136-145) mEq/L Potassium (3.5-5.1) mEq/L Chloride (98-107) mEq/L Carbon Dioxide (21-32) mEq/L Anion Gap (5-15) BUN (7-18) mg/dL Creatinine (0.7-1.3) mg/dL Est Cr Clr Drug Dosing mL/min Estimated GFR (MDRD) (>60) mL/min BUN/Creatinine Ratio (14-18) Glucose (74-106) mg/dL POC Glucose 243 H 189 H 171 H (70-99) mg/dL Lactic Acid (0.4-2.0) mmol/L Calcium (8.5-10.1) mg/dL Phosphorus (2.6-4.7) mg/dL Magnesium (1.8-2.4) mg/dl Ferritin (26-388) ng/ml Total Bilirubin (0.2-1.0) mg/dL AST (15-37) U/L ALT (16-63) U/L Alkaline Phosphatase (46-116) U/L C-Reactive Protein (<1.0) mg/dL Total Protein (6.4-8.2) g/dl Albumin (3.4-5.0) g/dl Globulin gm/dL Albumin/Globulin Ratio (1-2) Vitamin D 25-Hydroxy (30.0-100.0) ng/ml Procalcitonin ng/mL 01/18/21 01/18/21 01/19/21 Range/Units 23:02 23:07 00:02 WBC (4.23-9.07) K/mm3 RBC (4.63-6.08) M/mm3 Hgb (13.7-17.5) gm/dl Hct (40.1-51.0) % MCV (79.0-92.2) fl MCH (25.7-32.2) pg MCHC (32.2-35.5) g/dl RDW Std Deviation (35.1-43.9) fL Plt Count (163-337) K/mm3 MPV (9.4-12.3) fl Neut % (Auto) (34.0-67.9) % Lymph % (Auto) (21.8-53.1) % [place] % (Auto) (5.3-12.2) % Eos % (Auto) (0.8-7.0) Baso % (Auto) (0.1-1.2) % Neut # (Auto) (1.78-5.38) K/mm3 Lymph # (Auto) (1.32-3.57) K/mm3 [place] # (Auto) (0.30-0.82) K/mm3 Eos # (Auto) (0.04-0.54) K/mm3 Baso # (Auto) (0.01-0.08) K/mm3 Sodium 138 (136-145) mEq/L Potassium 3.6 (3.5-5.1) mEq/L Chloride 105 (98-107) mEq/L Carbon Dioxide 18 L (21-32) mEq/L Anion Gap 18.6 H (5-15) BUN 5 L (7-18) mg/dL Creatinine 1.1 (0.7-1.3) mg/dL Est Cr Clr Drug Dosing 82.75 mL/min Estimated GFR (MDRD) > 60 (>60) mL/min BUN/Creatinine Ratio 4.5 L (14-18) Glucose 181 H (74-106) mg/dL POC Glucose 165 H 251 H (70-99) mg/dL Lactic Acid (0.4-2.0) mmol/L Calcium 7.8 L (8.5-10.1) mg/dL Phosphorus (2.6-4.7) mg/dL Magnesium (1.8-2.4) mg/dl Ferritin (26-388) ng/ml Total Bilirubin (0.2-1.0) mg/dL AST (15-37) U/L ALT (16-63) U/L Alkaline Phosphatase (46-116) U/L C-Reactive Protein (<1.0) mg/dL Total Protein (6.4-8.2) g/dl Albumin (3.4-5.0) g/dl Globulin gm/dL Albumin/Globulin Ratio (1-2) Vitamin D 25-Hydroxy (30.0-100.0) ng/ml Procalcitonin ng/mL 01/19/21 01/19/21 01/19/21 Range/Units 01:01 02:01 02:35 WBC 9.53 H (4.23-9.07) K/mm3 RBC 3.04 L (4.63-6.08) M/mm3 Hgb 9.4 L (13.7-17.5) gm/dl Hct 27.0 L (40.1-51.0) % MCV 88.8 (79.0-92.2) fl MCH 30.9 (25.7-32.2) pg MCHC 34.8 (32.2-35.5) g/dl RDW Std Deviation 46.5 H (35.1-43.9) fL Plt Count 133 L (163-337) K/mm3 MPV 8.3 L (9.4-12.3) fl Neut % (Auto) 78.9 H (34.0-67.9) % Lymph % (Auto) 15.2 L (21.8-53.1) % [place] % (Auto) 5.0 L (5.3-12.2) % Eos % (Auto) 0.5 L (0.8-7.0) Baso % (Auto) 0.2 (0.1-1.2) % Neut # (Auto) 7.51 H (1.78-5.38) K/mm3 Lymph # (Auto) 1.45 (1.32-3.57) K/mm3 [place] # (Auto) 0.48 (0.30-0.82) K/mm3 Eos # (Auto) 0.05 (0.04-0.54) K/mm3 Baso # (Auto) 0.02 (0.01-0.08) K/mm3 Sodium (136-145) mEq/L Potassium (3.5-5.1) mEq/L Chloride (98-107) mEq/L Carbon Dioxide (21-32) mEq/L Anion Gap (5-15) BUN (7-18) mg/dL Creatinine (0.7-1.3) mg/dL Est Cr Clr Drug Dosing mL/min Estimated GFR (MDRD) (>60) mL/min BUN/Creatinine Ratio (14-18) Glucose (74-106) mg/dL POC Glucose 271 H 212 H (70-99) mg/dL Lactic Acid (0.4-2.0) mmol/L Calcium (8.5-10.1) mg/dL Phosphorus (2.6-4.7) mg/dL Magnesium (1.8-2.4) mg/dl Ferritin (26-388) ng/ml Total Bilirubin (0.2-1.0) mg/dL AST (15-37) U/L ALT (16-63) U/L Alkaline Phosphatase (46-116) U/L C-Reactive Protein (<1.0) mg/dL Total Protein (6.4-8.2) g/dl Albumin (3.4-5.0) g/dl Globulin gm/dL Albumin/Globulin Ratio (1-2) Vitamin D 25-Hydroxy (30.0-100.0) ng/ml Procalcitonin ng/mL 01/19/21 01/19/21 01/19/21 Range/Units 02:35 02:35 02:35 WBC (4.23-9.07) K/mm3 RBC (4.63-6.08) M/mm3 Hgb (13.7-17.5) gm/dl Hct (40.1-51.0) % MCV (79.0-92.2) fl MCH (25.7-32.2) pg MCHC (32.2-35.5) g/dl RDW Std Deviation (35.1-43.9) fL Plt Count (163-337) K/mm3 MPV (9.4-12.3) fl Neut % (Auto) (34.0-67.9) % Lymph % (Auto) (21.8-53.1) % [place] % (Auto) (5.3-12.2) % Eos % (Auto) (0.8-7.0) Baso % (Auto) (0.1-1.2) % Neut # (Auto) (1.78-5.38) K/mm3 Lymph # (Auto) (1.32-3.57) K/mm3 [place] # (Auto) (0.30-0.82) K/mm3 Eos # (Auto) (0.04-0.54) K/mm3 Baso # (Auto) (0.01-0.08) K/mm3 Sodium 137 (136-145) mEq/L Potassium 3.5 (3.5-5.1) mEq/L Chloride 104 (98-107) mEq/L Carbon Dioxide 19 L (21-32) mEq/L Anion Gap 17.5 H (5-15) BUN 5 L (7-18) mg/dL Creatinine 1.1 (0.7-1.3) mg/dL Est Cr Clr Drug Dosing 82.75 mL/min Estimated GFR (MDRD) > 60 (>60) mL/min BUN/Creatinine Ratio 4.5 L (14-18) Glucose 212 H (74-106) mg/dL POC Glucose (70-99) mg/dL Lactic Acid 7.4 H* (0.4-2.0) mmol/L Calcium 7.6 L (8.5-10.1) mg/dL Phosphorus 1.3 L (2.6-4.7) mg/dL Magnesium 1.6 L (1.8-2.4) mg/dl Ferritin (26-388) ng/ml Total Bilirubin 0.6 (0.2-1.0) mg/dL AST 42 H (15-37) U/L ALT 69 H (16-63) U/L Alkaline Phosphatase 100 (46-116) U/L C-Reactive Protein (<1.0) mg/dL Total Protein 5.2 L (6.4-8.2) g/dl Albumin 1.8 L (3.4-5.0) g/dl Globulin 3.4 gm/dL Albumin/Globulin Ratio 0.5 L (1-2) Vitamin D 25-Hydroxy (30.0-100.0) ng/ml Procalcitonin ng/mL 01/19/21 01/19/21 01/19/21 Range/Units 03:02 04:03 05:01 WBC (4.23-9.07) K/mm3 RBC (4.63-6.08) M/mm3 Hgb (13.7-17.5) gm/dl Hct (40.1-51.0) % MCV (79.0-92.2) fl MCH (25.7-32.2) pg MCHC (32.2-35.5) g/dl RDW Std Deviation (35.1-43.9) fL Plt Count (163-337) K/mm3 MPV (9.4-12.3) fl Neut % (Auto) (34.0-67.9) % Lymph % (Auto) (21.8-53.1) % [place] % (Auto) (5.3-12.2) % Eos % (Auto) (0.8-7.0) Baso % (Auto) (0.1-1.2) % Neut # (Auto) (1.78-5.38) K/mm3 Lymph # (Auto) (1.32-3.57) K/mm3 [place] # (Auto) (0.30-0.82) K/mm3 Eos # (Auto) (0.04-0.54) K/mm3 Baso # (Auto) (0.01-0.08) K/mm3 Sodium (136-145) mEq/L Potassium (3.5-5.1) mEq/L Chloride (98-107) mEq/L Carbon Dioxide (21-32) mEq/L Anion Gap (5-15) BUN (7-18) mg/dL Creatinine (0.7-1.3) mg/dL Est Cr Clr Drug Dosing mL/min Estimated GFR (MDRD) (>60) mL/min BUN/Creatinine Ratio (14-18) Glucose (74-106) mg/dL POC Glucose 153 H 135 H 114 H (70-99) mg/dL Lactic Acid (0.4-2.0) mmol/L Calcium (8.5-10.1) mg/dL Phosphorus (2.6-4.7) mg/dL Magnesium (1.8-2.4) mg/dl Ferritin (26-388) ng/ml Total Bilirubin (0.2-1.0) mg/dL AST (15-37) U/L ALT (16-63) U/L Alkaline Phosphatase (46-116) U/L C-Reactive Protein (<1.0) mg/dL Total Protein (6.4-8.2) g/dl Albumin (3.4-5.0) g/dl Globulin gm/dL Albumin/Globulin Ratio (1-2) Vitamin D 25-Hydroxy (30.0-100.0) ng/ml Procalcitonin ng/mL 01/19/21 01/19/21 01/19/21 Range/Units 05:30 05:30 06:00 WBC (4.23-9.07) K/mm3 RBC (4.63-6.08) M/mm3 Hgb (13.7-17.5) gm/dl Hct (40.1-51.0) % MCV (79.0-92.2) fl MCH (25.7-32.2) pg MCHC (32.2-35.5) g/dl RDW Std Deviation (35.1-43.9) fL Plt Count (163-337) K/mm3 MPV (9.4-12.3) fl Neut % (Auto) (34.0-67.9) % Lymph % (Auto) (21.8-53.1) % [place] % (Auto) (5.3-12.2) % Eos % (Auto) (0.8-7.0) Baso % (Auto) (0.1-1.2) % Neut # (Auto) (1.78-5.38) K/mm3 Lymph # (Auto) (1.32-3.57) K/mm3 [place] # (Auto) (0.30-0.82) K/mm3 Eos # (Auto) (0.04-0.54) K/mm3 Baso # (Auto) (0.01-0.08) K/mm3 Sodium 140 (136-145) mEq/L Potassium 3.5 (3.5-5.1) mEq/L Chloride 106 (98-107) mEq/L Carbon Dioxide 22 (21-32) mEq/L Anion Gap 15.5 H (5-15) BUN 4 L (7-18) mg/dL Creatinine 0.8 (0.7-1.3) mg/dL Est Cr Clr Drug Dosing 110.56 mL/min Estimated GFR (MDRD) > 60 (>60) mL/min BUN/Creatinine Ratio 5.0 L (14-18) Glucose 120 H (74-106) mg/dL POC Glucose 124 H (70-99) mg/dL Lactic Acid 5.3 H* (0.4-2.0) mmol/L Calcium 7.6 L (8.5-10.1) mg/dL Phosphorus (2.6-4.7) mg/dL Magnesium (1.8-2.4) mg/dl Ferritin (26-388) ng/ml Total Bilirubin (0.2-1.0) mg/dL AST (15-37) U/L ALT (16-63) U/L Alkaline Phosphatase (46-116) U/L C-Reactive Protein (<1.0) mg/dL Total Protein (6.4-8.2) g/dl Albumin (3.4-5.0) g/dl Globulin gm/dL Albumin/Globulin Ratio (1-2) Vitamin D 25-Hydroxy (30.0-100.0) ng/ml Procalcitonin ng/mL 01/19/21 01/19/21 01/19/21 Range/Units 07:07 07:59 08:22 WBC (4.23-9.07) K/mm3 RBC (4.63-6.08) M/mm3 Hgb (13.7-17.5) gm/dl Hct (40.1-51.0) % MCV (79.0-92.2) fl MCH (25.7-32.2) pg MCHC (32.2-35.5) g/dl RDW Std Deviation (35.1-43.9) fL Plt Count (163-337) K/mm3 MPV (9.4-12.3) fl Neut % (Auto) (34.0-67.9) % Lymph % (Auto) (21.8-53.1) % [place] % (Auto) (5.3-12.2) % Eos % (Auto) (0.8-7.0) Baso % (Auto) (0.1-1.2) % Neut # (Auto) (1.78-5.38) K/mm3 Lymph # (Auto) (1.32-3.57) K/mm3 [place] # (Auto) (0.30-0.82) K/mm3 Eos # (Auto) (0.04-0.54) K/mm3 Baso # (Auto) (0.01-0.08) K/mm3 Sodium 138 (136-145) mEq/L Potassium 3.4 L (3.5-5.1) mEq/L Chloride 105 (98-107) mEq/L Carbon Dioxide 23 (21-32) mEq/L Anion Gap 13.4 (5-15) BUN 4 L (7-18) mg/dL Creatinine 0.8 (0.7-1.3) mg/dL Est Cr Clr Drug Dosing 110.56 mL/min Estimated GFR (MDRD) > 60 (>60) mL/min BUN/Creatinine Ratio 5.0 L (14-18) Glucose 138 H (74-106) mg/dL POC Glucose 118 H 110 H (70-99) mg/dL Lactic Acid (0.4-2.0) mmol/L Calcium 7.6 L (8.5-10.1) mg/dL Phosphorus (2.6-4.7) mg/dL Magnesium (1.8-2.4) mg/dl Ferritin (26-388) ng/ml Total Bilirubin (0.2-1.0) mg/dL AST (15-37) U/L ALT (16-63) U/L Alkaline Phosphatase (46-116) U/L C-Reactive Protein (<1.0) mg/dL Total Protein (6.4-8.2) g/dl Albumin (3.4-5.0) g/dl Globulin gm/dL Albumin/Globulin Ratio (1-2) Vitamin D 25-Hydroxy (30.0-100.0) ng/ml Procalcitonin ng/mL 01/19/21 01/19/21 01/19/21 Range/Units 08:22 08:22 08:22 WBC (4.23-9.07) K/mm3 RBC (4.63-6.08) M/mm3 Hgb (13.7-17.5) gm/dl Hct (40.1-51.0) % MCV (79.0-92.2) fl MCH (25.7-32.2) pg MCHC (32.2-35.5) g/dl RDW Std Deviation (35.1-43.9) fL Plt Count (163-337) K/mm3 MPV (9.4-12.3) fl Neut % (Auto) (34.0-67.9) % Lymph % (Auto) (21.8-53.1) % [place] % (Auto) (5.3-12.2) % Eos % (Auto) (0.8-7.0) Baso % (Auto) (0.1-1.2) % Neut # (Auto) (1.78-5.38) K/mm3 Lymph # (Auto) (1.32-3.57) K/mm3 [place] # (Auto) (0.30-0.82) K/mm3 Eos # (Auto) (0.04-0.54) K/mm3 Baso # (Auto) (0.01-0.08) K/mm3 Sodium (136-145) mEq/L Potassium (3.5-5.1) mEq/L Chloride (98-107) mEq/L Carbon Dioxide (21-32) mEq/L Anion Gap (5-15) BUN (7-18) mg/dL Creatinine (0.7-1.3) mg/dL Est Cr Clr Drug Dosing mL/min Estimated GFR (MDRD) (>60) mL/min BUN/Creatinine Ratio (14-18) Glucose (74-106) mg/dL POC Glucose (70-99) mg/dL Lactic Acid 4.2 H* (0.4-2.0) mmol/L Calcium (8.5-10.1) mg/dL Phosphorus (2.6-4.7) mg/dL Magnesium (1.8-2.4) mg/dl Ferritin 292 (26-388) ng/ml Total Bilirubin (0.2-1.0) mg/dL AST (15-37) U/L ALT (16-63) U/L Alkaline Phosphatase (46-116) U/L C-Reactive Protein 23.2 H* (<1.0) mg/dL Total Protein (6.4-8.2) g/dl Albumin (3.4-5.0) g/dl Globulin gm/dL Albumin/Globulin Ratio (1-2) Vitamin D 25-Hydroxy 12.1 L (30.0-100.0) ng/ml Procalcitonin ng/mL 01/19/21 01/19/21 Range/Units 09:01 10:04 WBC (4.23-9.07) K/mm3 RBC (4.63-6.08) M/mm3 Hgb (13.7-17.5) gm/dl Hct (40.1-51.0) % MCV (79.0-92.2) fl MCH (25.7-32.2) pg MCHC (32.2-35.5) g/dl RDW Std Deviation (35.1-43.9) fL Plt Count (163-337) K/mm3 MPV (9.4-12.3) fl Neut % (Auto) (34.0-67.9) % Lymph % (Auto) (21.8-53.1) % [place] % (Auto) (5.3-12.2) % Eos % (Auto) (0.8-7.0) Baso % (Auto) (0.1-1.2) % Neut # (Auto) (1.78-5.38) K/mm3 Lymph # (Auto) (1.32-3.57) K/mm3 [place] # (Auto) (0.30-0.82) K/mm3 Eos # (Auto) (0.04-0.54) K/mm3 Baso # (Auto) (0.01-0.08) K/mm3 Sodium (136-145) mEq/L Potassium (3.5-5.1) mEq/L Chloride (98-107) mEq/L Carbon Dioxide (21-32) mEq/L Anion Gap (5-15) BUN (7-18) mg/dL Creatinine (0.7-1.3) mg/dL Est Cr Clr Drug Dosing mL/min Estimated GFR (MDRD) (>60) mL/min BUN/Creatinine Ratio (14-18) Glucose (74-106) mg/dL POC Glucose 199 H 167 H (70-99) mg/dL Lactic Acid (0.4-2.0) mmol/L Calcium (8.5-10.1) mg/dL Phosphorus (2.6-4.7) mg/dL Magnesium (1.8-2.4) mg/dl Ferritin (26-388) ng/ml Total Bilirubin (0.2-1.0) mg/dL AST (15-37) U/L ALT (16-63) U/L Alkaline Phosphatase (46-116) U/L C-Reactive Protein (<1.0) mg/dL Total Protein (6.4-8.2) g/dl Albumin (3.4-5.0) g/dl Globulin gm/dL Albumin/Globulin Ratio (1-2) Vitamin D 25-Hydroxy (30.0-100.0) ng/ml Procalcitonin ng/mL [facility] Results Last 24 Hours: Microbiology 01/16/21 22:00 Aerobic Blood Culture - Preliminary Blood NO GROWTH AFTER 2 DAYS Anaerobic Blood Culture - Preliminary NO GROWTH AFTER 2 DAYS 01/16/21 21:58 Aerobic Blood Culture - Preliminary Blood NO GROWTH AFTER 2 DAYS Anaerobic Blood Culture - Preliminary NO GROWTH AFTER 2 DAYS 01/17/21 21:36 Aerobic Blood Culture - Preliminary Blood - Venous - Lab Draw NO GROWTH AFTER 1 DAY Anaerobic Blood Culture - Preliminary NO GROWTH AFTER 1 DAY 01/17/21 21:32 Aerobic Blood Culture - Preliminary Blood - Venous NO GROWTH AFTER 1 DAY Anaerobic Blood Culture - Preliminary NO GROWTH AFTER 1 DAY Med Orders - Current: Current Medications Acetaminophen (Acetaminophen 325 Mg Tab) 650 mg PO Q6H PRN PRN Reason: Pain (Mild 1-3)/fever Last Admin: 01/17/21 19:49 Dose: 650 mg Documented by: Aspirin (Aspirin 81 Mg Tab.Chew) 81 mg PO DAILY [facility]IN[facility] Last Admin: 01/19/21 08:05 Dose: 81 mg Documented by: Enoxaparin Sodium (Enoxaparin 40 Mg/0.4 Ml Syringe) 40 mg SUBCUT BEDTIME [facility] Last Admin: 01/18/21 20:35 Dose: Not Given Documented by: Hydralazine HCl (Hydralazine 20 Mg/Ml Sdv) 10 mg IVPUSH Q4H PRN PRN Reason: Hypertension Insulin Human Regular 100 unit (/ Sodium Chloride) 100 mls @ 1.1 mls/hr IV TITRATE [facility]; Protocol Last Titration: 01/19/21 09:09 Dose: 0.01 units/kg/hr, 0.7 mls/hr Documented by: Potassium Chloride/Dextrose/Sod Cl (D5 1/2 Ns W/ 20 Meq/L Kcl) 1,000 mls @ 80 mls/hr IV ASDIRECTED [facility] Last Infusion: 01/19/21 09:29 Dose: 80 mls/hr Documented by: Piperacillin Sod/Tazobactam (Sod 4.5 gm/ Sodium Chloride) 100 mls @ 25 mls/hr IV Q8HR [facility] Last Admin: 01/19/21 05:56 Dose: 25 mls/hr Documented by: Azithromycin 500 mg/ Sodium (Chloride) 250 mls @ 250 mls/hr IV BEDTIME [facility] Last Admin: 01/18/21 20:31 Dose: 250 mls/hr Documented by: Potassium Chloride 10 meq/ (Premix) 100 mls @ 100 mls/hr IV Q1H [facility] Stop: 01/19/21 11:29 Last Admin: 01/19/21 09:46 Dose: 100 mls/hr Documented by: Potassium Phosphate 30 mmole/ (Sodium Chloride) 510 mls @ 102 mls/hr IV ONETIME ONE Stop: 01/19/21 16:59 Magnesium Sulfate 4 gm/ Premix 50 mls @ 12.5 mls/hr IV ONETIME ONE Stop: 01/19/21 20:59 Lorazepam (Lorazepam 2 Mg/Ml Sdv) 0.5 mg IVPUSH Q4H PRN PRN Reason: Agitation Metoprolol Tartrate (Metoprolol Tartrate 5 Mg/5 Ml Sdv) 2.5 mg IVPUSH Q10M PRN PRN Reason: Tachycardia Last Admin: 01/18/21 17:01 Dose: 2.5 mg Documented by: Metoprolol Tartrate (Metoprolol Tartrate 25 Mg Tab) 12.5 mg PO Q12HR [facility] Last Admin: 01/19/21 08:02 Dose: 12.5 mg Documented by: Ondansetron HCl (Ondansetron 4 Mg/2 Ml Sdv) 4 mg IV Q6H PRN PRN Reason: Nausea/Vomiting Last Admin: 01/17/21 15:35 Dose: 4 mg Documented by: Pantoprazole Sodium (Pantoprazole 40 Mg Vial) 40 mg IVPUSH DAILY [facility] Last Admin: 01/19/21 08:05 Dose: 40 mg Documented by: Sodium Chloride (Sodium Chloride 0.9% 10 Ml Syringe) 10 ml FLUSH ASDIRECTED PRN PRN Reason: Keep Vein Open Last Admin: 01/16/21 22:06 Dose: 10 ml Documented by: Discontinued Medications Diltiazem HCl (Diltiazem 50 Mg/10 Ml Sdv) 2.5 mg IVPUSH Q1H PRN PRN Reason: HR greater than 110 Last Admin: 01/17/21 16:38 Dose: 2.5 mg Documented by: Diltiazem HCl (Diltiazem Ir 30 Mg Tab) 15 mg PO Q8H PRN PRN Reason: Tachycardia Last Admin: 01/17/21 12:29 Dose: 15 mg Documented by: Diltiazem HCl (Diltiazem 50 Mg/10 Ml Sdv) 5 mg IVPUSH ONETIME ONE Stop: 01/17/21 17:42 Last Admin: 01/17/21 17:49 Dose: 5 mg Documented by: Enoxaparin Sodium (Enoxaparin 40 Mg/0.4 Ml Syringe) 40 mg SUBCUT DAILY [facility] Last Admin: 01/17/21 07:55 Dose: Not Given Documented by: Sodium Chloride (Normal Saline) 1,000 mls @ 999 mls/hr IV ONETIME PRINCE Last Admin: 01/16/21 22:05 Dose: 999 mls/hr Documented by: Lactated Ringer's (Ringers, Lactated) 1,000 mls @ 999 mls/hr IV .BOLUS ONE Stop: 01/16/21 22:43 Last Admin: 01/16/21 22:05 Dose: 999 mls/hr Documented by: Insulin Human Regular 100 unit (/ Sodium Chloride) 100 mls @ 5 mls/hr IV TITRATE PRINCE; Protocol Last Titration: 01/17/21 03:37 Dose: 2.3 units/hr, 2.3 mls/hr Documented by: Sodium Chloride (Normal Saline) Confirm Administered Dose 100 mls @ as directed .ROUTE .STK-MED ONE Stop: 01/16/21 22:07 Last Admin: 01/17/21 06:02 Dose: Not Given Documented by: Lactated Ringer's (Ringers, Lactated) 1,000 mls @ 500 mls/hr IV NOW STA Stop: 01/17/21 01:04 Last Admin: 01/16/21 23:05 Dose: 500 mls/hr Documented by: Lactated Ringer's (Ringers, Lactated) 1,000 mls @ 500 mls/hr IV .BOLUS ONE Stop: 01/17/21 01:04 Last Admin: 01/16/21 23:05 Dose: 500 mls/hr Documented by: Insulin Human Regular 100 unit (/ Sodium Chloride) 100 mls @ 5.502 mls/hr IV TITRATE PRINCE; Protocol Potassium Chloride/Sodium Chloride (1/2 Ns With 20 Meq Kcl) 1,000 mls @ 125 mls/hr IV ASDIRECTED PRINCE Last Infusion: 01/17/21 04:51 Dose: 0 mls/hr Documented by: Sodium Chloride (Normal Saline) 500 mls @ 999 mls/hr IV .BOLUS ONE Stop: 01/17/21 07:39 Last Admin: 01/17/21 07:09 Dose: 999 mls/hr Documented by: Sodium Chloride (Normal Saline) Confirm Administered Dose 1,000 mls @ as directed .ROUTE .STK-MED ONE Stop: 01/17/21 07:12 Last Admin: 01/17/21 07:52 Dose: Not Given Documented by: Sodium Chloride (Normal Saline) 500 mls @ 999 mls/hr IV .BOLUS ONE Stop: 01/17/21 10:31 Last Admin: 01/17/21 10:12 Dose: 999 mls/hr Documented by: Sodium Chloride (Normal Saline) 500 mls @ 999 mls/hr IV .BOLUS ONE Stop: 01/17/21 13:49 Last Admin: 01/17/21 13:27 Dose: 999 mls/hr Documented by: Piperacillin Sod/Tazobactam (Sod 4.5 gm/ Sodium Chloride) 100 mls @ 200 mls/hr IV ONETIME ONE Stop: 01/17/21 21:44 Last Admin: 01/17/21 21:38 Dose: 200 mls/hr Documented by: Azithromycin 400 mg/ Sodium (Chloride) 250 mls @ 250 mls/hr IV Q24H PRINCE Potassium Phosphate 30 mmole/ (Sodium Chloride) 510 mls @ 102 mls/hr IV ONETIME ONE Stop: 01/19/21 14:29 Magnesium Sulfate 4 gm/ Premix 50 mls @ 12.5 mls/hr IV ONETIME ONE Stop: 01/19/21 17:59 Insulin Human Regular (Insulin Regular, Human 100 Units/Ml 3 Ml Vial) 5 unit IVPUSH ONETIME ONE; Protocol Stop: 01/16/21 21:44 Last Admin: 01/16/21 21:49 Dose: 5 unit Documented by: Metoprolol Tartrate (Metoprolol Tartrate 5 Mg/5 Ml Sdv) 5 mg IVPUSH ONETIME ONE Stop: 01/17/21 18:34 Last Admin: 01/17/21 18:41 Dose: 5 mg Documented by: Morphine Sulfate (Morphine 2 Mg/Ml Syringe) 2 mg IVPUSH Q4H PRN PRN Reason: Pain (severe 7-10) Stop: 01/18/21 00:35 Sodium Bicarbonate (Sodium Bicarbonate 8.4% 50 Meq/50 Ml Syringe) 50 meq IVPUSH ONETIME ONE Stop: 01/16/21 22:16 Last Admin: 01/16/21 22:20 Dose: 50 meq Documented by: - Exam Physical Findings Comments:: General: Alert, Oriented, Cooperative, No Acute Distress HEENT: Pupils Equal, Pupils Reactive, EOMI Neck: Supple, Trachea Midline, No JVD Lungs: Rhonchi Cardiovascular: Regular Rate, Regular Rhythm, Tachycardia GI/Abdominal Exam: Normal Bowel Sounds, Soft, Non-Tender, No Organomegaly Extremities: Normal Inspection, Normal Range of Motion, Non-Tender, No Pedal Edema Skin: Warm, Dry, Intact Neurological: Normal Speech, Normal Tone, Strength Equal Bilateral, Sensation Intact Psy/Mental Status: Normal Mood - Patient Data Lab Results Last 24 hrs: Laboratory Results - last 24 hr 01/17/21 01/18/21 01/18/21 Range/Units 21:32 11:01 11:30 WBC (4.23-9.07) K/mm3 RBC (4.63-6.08) M/mm3 Hgb (13.7-17.5) gm/dl Hct (40.1-51.0) % MCV (79.0-92.2) fl MCH (25.7-32.2) pg MCHC (32.2-35.5) g/dl RDW Std Deviation (35.1-43.9) fL Plt Count (163-337) K/mm3 MPV (9.4-12.3) fl Neut % (Auto) (34.0-67.9) % Lymph % (Auto) (21.8-53.1) % [place] % (Auto) (5.3-12.2) % Eos % (Auto) (0.8-7.0) Baso % (Auto) (0.1-1.2) % Neut # (Auto) (1.78-5.38) K/mm3 Lymph # (Auto) (1.32-3.57) K/mm3 [place] # (Auto) (0.30-0.82) K/mm3 Eos # (Auto) (0.04-0.54) K/mm3 Baso # (Auto) (0.01-0.08) K/mm3 Sodium 138 (136-145) mEq/L Potassium 3.7 (3.5-5.1) mEq/L Chloride 106 (98-107) mEq/L Carbon Dioxide 17 L (21-32) mEq/L Anion Gap 18.7 H (5-15) BUN 7 (7-18) mg/dL Creatinine 1.2 (0.7-1.3) mg/dL Est Cr Clr Drug Dosing 75.86 mL/min Estimated GFR (MDRD) > 60 (>60) mL/min BUN/Creatinine Ratio 5.8 L (14-18) Glucose 316 H (74-106) mg/dL POC Glucose 271 H (70-99) mg/dL Lactic Acid (0.4-2.0) mmol/L Calcium 7.4 L (8.5-10.1) mg/dL Phosphorus (2.6-4.7) mg/dL Magnesium (1.8-2.4) mg/dl Ferritin (26-388) ng/ml Total Bilirubin (0.2-1.0) mg/dL AST (15-37) U/L ALT (16-63) U/L Alkaline Phosphatase (46-116) U/L C-Reactive Protein (<1.0) mg/dL Total Protein (6.4-8.2) g/dl Albumin (3.4-5.0) g/dl Globulin gm/dL Albumin/Globulin Ratio (1-2) Vitamin D 25-Hydroxy (30.0-100.0) ng/ml Procalcitonin 0.38 H ng/mL 01/18/21 01/18/21 01/18/21 Range/Units 12:00 13:08 14:16 WBC (4.23-9.07) K/mm3 RBC (4.63-6.08) M/mm3 Hgb (13.7-17.5) gm/dl Hct (40.1-51.0) % MCV (79.0-92.2) fl MCH (25.7-32.2) pg MCHC (32.2-35.5) g/dl RDW Std Deviation (35.1-43.9) fL Plt Count (163-337) K/mm3 MPV (9.4-12.3) fl Neut % (Auto) (34.0-67.9) % Lymph % (Auto) (21.8-53.1) % [place] % (Auto) (5.3-12.2) % Eos % (Auto) (0.8-7.0) Baso % (Auto) (0.1-1.2) % Neut # (Auto) (1.78-5.38) K/mm3 Lymph # (Auto) (1.32-3.57) K/mm3 [place] # (Auto) (0.30-0.82) K/mm3 Eos # (Auto) (0.04-0.54) K/mm3 Baso # (Auto) (0.01-0.08) K/mm3 Sodium (136-145) mEq/L Potassium (3.5-5.1) mEq/L Chloride (98-107) mEq/L Carbon Dioxide (21-32) mEq/L Anion Gap (5-15) BUN (7-18) mg/dL Creatinine (0.7-1.3) mg/dL Est Cr Clr Drug Dosing mL/min Estimated GFR (MDRD) (>60) mL/min BUN/Creatinine Ratio (14-18) Glucose (74-106) mg/dL POC Glucose 276 H 231 H 209 H (70-99) mg/dL Lactic Acid (0.4-2.0) mmol/L Calcium (8.5-10.1) mg/dL Phosphorus (2.6-4.7) mg/dL Magnesium (1.8-2.4) mg/dl Ferritin (26-388) ng/ml Total Bilirubin (0.2-1.0) mg/dL AST (15-37) U/L ALT (16-63) U/L Alkaline Phosphatase (46-116) U/L C-Reactive Protein (<1.0) mg/dL Total Protein (6.4-8.2) g/dl Albumin (3.4-5.0) g/dl Globulin gm/dL Albumin/Globulin Ratio (1-2) Vitamin D 25-Hydroxy (30.0-100.0) ng/ml Procalcitonin ng/mL 01/18/21 01/18/21 01/18/21 Range/Units 14:46 14:46 15:03 WBC (4.23-9.07) K/mm3 RBC (4.63-6.08) M/mm3 Hgb (13.7-17.5) gm/dl Hct (40.1-51.0) % MCV (79.0-92.2) fl MCH (25.7-32.2) pg MCHC (32.2-35.5) g/dl RDW Std Deviation (35.1-43.9) fL Plt Count (163-337) K/mm3 MPV (9.4-12.3) fl Neut % (Auto) (34.0-67.9) % Lymph % (Auto) (21.8-53.1) % [place] % (Auto) (5.3-12.2) % Eos % (Auto) (0.8-7.0) Baso % (Auto) (0.1-1.2) % Neut # (Auto) (1.78-5.38) K/mm3 Lymph # (Auto) (1.32-3.57) K/mm3 [place] # (Auto) (0.30-0.82) K/mm3 Eos # (Auto) (0.04-0.54) K/mm3 Baso # (Auto) (0.01-0.08) K/mm3 Sodium 138 (136-145) mEq/L Potassium 3.8 (3.5-5.1) mEq/L Chloride 106 (98-107) mEq/L Carbon Dioxide 16 L (21-32) mEq/L Anion Gap 19.8 H (5-15) BUN 5 L (7-18) mg/dL Creatinine 1.2 (0.7-1.3) mg/dL Est Cr Clr Drug Dosing 75.86 mL/min Estimated GFR (MDRD) > 60 (>60) mL/min BUN/Creatinine Ratio 4.2 L (14-18) Glucose 258 H (74-106) mg/dL POC Glucose 247 H (70-99) mg/dL Lactic Acid 7.7 H* (0.4-2.0) mmol/L Calcium 7.9 L (8.5-10.1) mg/dL Phosphorus (2.6-4.7) mg/dL Magnesium (1.8-2.4) mg/dl Ferritin (26-388) ng/ml Total Bilirubin (0.2-1.0) mg/dL AST (15-37) U/L ALT (16-63) U/L Alkaline Phosphatase (46-116) U/L C-Reactive Protein (<1.0) mg/dL Total Protein (6.4-8.2) g/dl Albumin (3.4-5.0) g/dl Globulin gm/dL Albumin/Globulin Ratio (1-2) Vitamin D 25-Hydroxy (30.0-100.0) ng/ml Procalcitonin ng/mL 01/18/21 01/18/21 01/18/21 Range/Units 16:07 17:00 18:01 WBC (4.23-9.07) K/mm3 RBC (4.63-6.08) M/mm3 Hgb (13.7-17.5) gm/dl Hct (40.1-51.0) % MCV (79.0-92.2) fl MCH (25.7-32.2) pg MCHC (32.2-35.5) g/dl RDW Std Deviation (35.1-43.9) fL Plt Count (163-337) K/mm3 MPV (9.4-12.3) fl Neut % (Auto) (34.0-67.9) % Lymph % (Auto) (21.8-53.1) % [place] % (Auto) (5.3-12.2) % Eos % (Auto) (0.8-7.0) Baso % (Auto) (0.1-1.2) % Neut # (Auto) (1.78-5.38) K/mm3 Lymph # (Auto) (1.32-3.57) K/mm3 [place] # (Auto) (0.30-0.82) K/mm3 Eos # (Auto) (0.04-0.54) K/mm3 Baso # (Auto) (0.01-0.08) K/mm3 Sodium (136-145) mEq/L Potassium (3.5-5.1) mEq/L Chloride (98-107) mEq/L Carbon Dioxide (21-32) mEq/L Anion Gap (5-15) BUN (7-18) mg/dL Creatinine (0.7-1.3) mg/dL Est Cr Clr Drug Dosing mL/min Estimated GFR (MDRD) (>60) mL/min BUN/Creatinine Ratio (14-18) Glucose (74-106) mg/dL POC Glucose 254 H 227 H 293 H (70-99) mg/dL Lactic Acid (0.4-2.0) mmol/L Calcium (8.5-10.1) mg/dL Phosphorus (2.6-4.7) mg/dL Magnesium (1.8-2.4) mg/dl Ferritin (26-388) ng/ml Total Bilirubin (0.2-1.0) mg/dL AST (15-37) U/L ALT (16-63) U/L Alkaline Phosphatase (46-116) U/L C-Reactive Protein (<1.0) mg/dL Total Protein (6.4-8.2) g/dl Albumin (3.4-5.0) g/dl Globulin gm/dL Albumin/Globulin Ratio (1-2) Vitamin D 25-Hydroxy (30.0-100.0) ng/ml Procalcitonin ng/mL 01/18/21 01/18/2101/18/21 Range/Units 19:00 19:30 19:30 WBC (4.23-9.07) K/mm3 RBC (4.63-6.08) M/mm3 Hgb (13.7-17.5) gm/dl Hct (40.1-51.0) % MCV (79.0-92.2) fl MCH (25.7-32.2) pg MCHC (32.2-35.5) g/dl RDW Std Deviation (35.1-43.9) fL Plt Count (163-337) K/mm3 MPV (9.4-12.3) fl Neut % (Auto) (34.0-67.9) % Lymph % (Auto) (21.8-53.1) % [place] % (Auto) (5.3-12.2) % Eos % (Auto) (0.8-7.0) Baso % (Auto) (0.1-1.2) % Neut # (Auto) (1.78-5.38) K/mm3 Lymph # (Auto) (1.32-3.57) K/mm3 [place] # (Auto) (0.30-0.82) K/mm3 Eos # (Auto) (0.04-0.54) K/mm3 Baso # (Auto) (0.01-0.08) K/mm3 Sodium 136 (136-145) mEq/L Potassium 3.8 (3.5-5.1) mEq/L Chloride 103 (98-107) mEq/L Carbon Dioxide 18 L (21-32) mEq/L Anion Gap 18.8 H (5-15) BUN 5 L (7-18) mg/dL Creatinine 1.3 (0.7-1.3) mg/dL Est Cr Clr Drug Dosing 70.02 mL/min Estimated GFR (MDRD) > 60 (>60) mL/min BUN/Creatinine Ratio 3.8 L (14-18) Glucose 295 H (74-106) mg/dL POC Glucose 301 H (70-99) mg/dL Lactic Acid 6.2 H* (0.4-2.0) mmol/L Calcium 7.6 L (8.5-10.1) mg/dL Phosphorus (2.6-4.7) mg/dL Magnesium (1.8-2.4) mg/dl Ferritin (26-388) ng/ml Total Bilirubin (0.2-1.0) mg/dL AST (15-37) U/L ALT (16-63) U/L Alkaline Phosphatase (46-116) U/L C-Reactive Protein (<1.0) mg/dL Total Protein (6.4-8.2) g/dl Albumin (3.4-5.0) g/dl Globulin gm/dL Albumin/Globulin Ratio (1-2) Vitamin D 25-Hydroxy (30.0-100.0) ng/ml Procalcitonin ng/mL 01/18/21 01/18/21 01/18/21 Range/Units 20:01 21:04 22:01 WBC (4.23-9.07) K/mm3 RBC (4.63-6.08) M/mm3 Hgb (13.7-17.5) gm/dl Hct (40.1-51.0) % MCV (79.0-92.2) fl MCH (25.7-32.2) pg MCHC (32.2-35.5) g/dl RDW Std Deviation (35.1-43.9) fL Plt Count (163-337) K/mm3 MPV (9.4-12.3) fl Neut % (Auto) (34.0-67.9) % Lymph % (Auto) (21.8-53.1) % [place] % (Auto) (5.3-12.2) % Eos % (Auto) (0.8-7.0) Baso % (Auto) (0.1-1.2) % Neut # (Auto) (1.78-5.38) K/mm3 Lymph # (Auto) (1.32-3.57) K/mm3 [place] # (Auto) (0.30-0.82) K/mm3 Eos # (Auto) (0.04-0.54) K/mm3 Baso # (Auto) (0.01-0.08) K/mm3 Sodium (136-145) mEq/L Potassium (3.5-5.1) mEq/L Chloride (98-107) mEq/L Carbon Dioxide (21-32) mEq/L Anion Gap (5-15) BUN (7-18) mg/dL Creatinine (0.7-1.3) mg/dL Est Cr Clr Drug Dosing mL/min Estimated GFR (MDRD) (>60) mL/min BUN/Creatinine Ratio (14-18) Glucose (74-106) mg/dL POC Glucose 243 H 189 H 171 H (70-99) mg/dL Lactic Acid (0.4-2.0) mmol/L Calcium (8.5-10.1) mg/dL Phosphorus (2.6-4.7) mg/dL Magnesium (1.8-2.4) mg/dl Ferritin (26-388) ng/ml Total Bilirubin (0.2-1.0) mg/dL AST (15-37) U/L ALT (16-63) U/L Alkaline Phosphatase (46-116) U/L C-Reactive Protein (<1.0) mg/dL Total Protein (6.4-8.2) g/dl Albumin (3.4-5.0) g/dl Globulin gm/dL Albumin/Globulin Ratio (1-2) Vitamin D 25-Hydroxy (30.0-100.0) ng/ml Procalcitonin ng/mL 01/18/21 01/18/21 01/19/21 Range/Units 23:02 23:07 00:02 WBC (4.23-9.07) K/mm3 RBC (4.63-6.08) M/mm3 Hgb (13.7-17.5) gm/dl Hct (40.1-51.0) % MCV (79.0-92.2) fl MCH (25.7-32.2) pg MCHC (32.2-35.5) g/dl RDW Std Deviation (35.1-43.9) fL Plt Count (163-337) K/mm3 MPV (9.4-12.3) fl Neut % (Auto) (34.0-67.9) % Lymph % (Auto) (21.8-53.1) % [place] % (Auto) (5.3-12.2) % Eos % (Auto) (0.8-7.0) Baso % (Auto) (0.1-1.2) % Neut # (Auto) (1.78-5.38) K/mm3 Lymph # (Auto) (1.32-3.57) K/mm3 [place] # (Auto) (0.30-0.82) K/mm3 Eos # (Auto) (0.04-0.54) K/mm3 Baso # (Auto) (0.01-0.08) K/mm3 Sodium 138 (136-145) mEq/L Potassium 3.6 (3.5-5.1) mEq/L Chloride 105 (98-107) mEq/L Carbon Dioxide 18 L (21-32) mEq/L Anion Gap 18.6 H (5-15) BUN 5 L (7-18) mg/dL Creatinine 1.1 (0.7-1.3) mg/dL Est Cr Clr Drug Dosing 82.75 mL/min Estimated GFR (MDRD) > 60 (>60) mL/min BUN/Creatinine Ratio 4.5 L (14-18) Glucose 181 H (74-106) mg/dL POC Glucose 165 H 251 H (70-99) mg/dL Lactic Acid (0.4-2.0) mmol/L Calcium 7.8 L (8.5-10.1) mg/dL Phosphorus (2.6-4.7) mg/dL Magnesium (1.8-2.4) mg/dl Ferritin (26-388) ng/ml Total Bilirubin (0.2-1.0) mg/dL AST (15-37) U/L ALT (16-63) U/L Alkaline Phosphatase (46-116) U/L C-Reactive Protein (<1.0) mg/dL Total Protein (6.4-8.2) g/dl Albumin (3.4-5.0) g/dl Globulin gm/dL Albumin/Globulin Ratio (1-2) Vitamin D 25-Hydroxy (30.0-100.0) ng/ml Procalcitonin ng/mL 01/19/21 01/19/21 01/19/21 Range/Units 01:01 02:01 02:35 WBC 9.53 H (4.23-9.07) K/mm3 RBC 3.04 L (4.63-6.08) M/mm3 Hgb 9.4 L (13.7-17.5) gm/dl Hct 27.0 L (40.1-51.0) % MCV 88.8 (79.0-92.2) fl MCH 30.9 (25.7-32.2) pg MCHC 34.8 (32.2-35.5) g/dl RDW Std Deviation 46.5 H (35.1-43.9) fL Plt Count 133 L (163-337) K/mm3 MPV 8.3 L (9.4-12.3) fl Neut % (Auto) 78.9 H (34.0-67.9) % Lymph % (Auto) 15.2 L (21.8-53.1) % [place] % (Auto) 5.0 L (5.3-12.2) % Eos % (Auto) 0.5 L (0.8-7.0) Baso % (Auto) 0.2 (0.1-1.2) % Neut # (Auto) 7.51 H (1.78-5.38) K/mm3 Lymph # (Auto) 1.45 (1.32-3.57) K/mm3 [place] # (Auto) 0.48 (0.30-0.82) K/mm3 Eos # (Auto) 0.05 (0.04-0.54) K/mm3 Baso # (Auto) 0.02 (0.01-0.08) K/mm3 Sodium (136-145) mEq/L Potassium (3.5-5.1) mEq/L Chloride (98-107) mEq/L Carbon Dioxide (21-32) mEq/L Anion Gap (5-15) BUN (7-18) mg/dL Creatinine (0.7-1.3) mg/dL Est Cr Clr Drug Dosing mL/min Estimated GFR (MDRD) (>60) mL/min BUN/Creatinine Ratio (14-18) Glucose (74-106) mg/dL POC Glucose 271 H 212 H (70-99) mg/dL Lactic Acid (0.4-2.0) mmol/L Calcium (8.5-10.1) mg/dL Phosphorus (2.6-4.7) mg/dL Magnesium (1.8-2.4) mg/dl Ferritin (26-388) ng/ml Total Bilirubin (0.2-1.0) mg/dL AST (15-37) U/L ALT (16-63) U/L Alkaline Phosphatase (46-116) U/L C-Reactive Protein (<1.0) mg/dL Total Protein (6.4-8.2) g/dl Albumin (3.4-5.0) g/dl Globulin gm/dL Albumin/Globulin Ratio (1-2) Vitamin D 25-Hydroxy (30.0-100.0) ng/ml Procalcitonin ng/mL 01/19/21 01/19/21 01/19/21 Range/Units 02:35 02:35 02:35 WBC (4.23-9.07) K/mm3 RBC (4.63-6.08) M/mm3 Hgb (13.7-17.5) gm/dl Hct (40.1-51.0) % MCV (79.0-92.2) fl MCH (25.7-32.2) pg MCHC (32.2-35.5) g/dl RDW Std Deviation (35.1-43.9) fL Plt Count (163-337) K/mm3 MPV (9.4-12.3) fl Neut % (Auto) (34.0-67.9) % Lymph % (Auto) (21.8-53.1) % [place] % (Auto) (5.3-12.2) % Eos % (Auto) (0.8-7.0) Baso % (Auto) (0.1-1.2) % Neut # (Auto) (1.78-5.38) K/mm3 Lymph # (Auto) (1.32-3.57) K/mm3 [place] # (Auto) (0.30-0.82) K/mm3 Eos # (Auto) (0.04-0.54) K/mm3 Baso # (Auto) (0.01-0.08) K/mm3 Sodium 137 (136-145) mEq/L Potassium 3.5 (3.5-5.1) mEq/L Chloride 104 (98-107) mEq/L Carbon Dioxide 19 L (21-32) mEq/L Anion Gap 17.5 H (5-15) BUN 5 L (7-18) mg/dL Creatinine 1.1 (0.7-1.3) mg/dL Est Cr Clr Drug Dosing 82.75 mL/min Estimated GFR (MDRD) > 60 (>60) mL/min BUN/Creatinine Ratio 4.5 L (14-18) Glucose 212 H (74-106) mg/dL POC Glucose (70-99) mg/dL Lactic Acid 7.4 H* (0.4-2.0) mmol/L Calcium 7.6 L (8.5-10.1) mg/dL Phosphorus 1.3 L (2.6-4.7) mg/dL Magnesium 1.6 L (1.8-2.4) mg/dl Ferritin (26-388) ng/ml Total Bilirubin 0.6 (0.2-1.0) mg/dL AST 42 H (15-37) U/L ALT 69 H (16-63) U/L Alkaline Phosphatase 100 (46-116) U/L C-Reactive Protein (<1.0) mg/dL Total Protein 5.2 L (6.4-8.2) g/dl Albumin 1.8 L (3.4-5.0) g/dl Globulin 3.4 gm/dL Albumin/Globulin Ratio 0.5 L (1-2) Vitamin D 25-Hydroxy (30.0-100.0) ng/ml Procalcitonin ng/mL 01/19/21 01/19/21 01/19/21 Range/Units 03:02 04:03 05:01 WBC (4.23-9.07) K/mm3 RBC (4.63-6.08) M/mm3 Hgb (13.7-17.5) gm/dl Hct (40.1-51.0) % MCV (79.0-92.2) fl MCH (25.7-32.2) pg MCHC (32.2-35.5) g/dl RDW Std Deviation (35.1-43.9) fL Plt Count (163-337) K/mm3 MPV (9.4-12.3) fl Neut % (Auto) (34.0-67.9) % Lymph % (Auto) (21.8-53.1) % [place] % (Auto) (5.3-12.2) % Eos % (Auto) (0.8-7.0) Baso % (Auto) (0.1-1.2) % Neut # (Auto) (1.78-5.38) K/mm3 Lymph # (Auto) (1.32-3.57) K/mm3 [place] # (Auto) (0.30-0.82) K/mm3 Eos # (Auto) (0.04-0.54) K/mm3 Baso # (Auto) (0.01-0.08) K/mm3 Sodium (136-145) mEq/L Potassium (3.5-5.1) mEq/L Chloride (98-107) mEq/L Carbon Dioxide (21-32) mEq/L Anion Gap (5-15) BUN (7-18) mg/dL Creatinine (0.7-1.3) mg/dL Est Cr Clr Drug Dosing mL/min Estimated GFR (MDRD) (>60) mL/min BUN/Creatinine Ratio (14-18) Glucose (74-106) mg/dL POC Glucose 153 H 135 H 114 H (70-99) mg/dL Lactic Acid (0.4-2.0) mmol/L Calcium (8.5-10.1) mg/dL Phosphorus (2.6-4.7) mg/dL Magnesium (1.8-2.4) mg/dl Ferritin (26-388) ng/ml Total Bilirubin (0.2-1.0) mg/dL AST (15-37) U/L ALT (16-63) U/L Alkaline Phosphatase (46-116) U/L C-Reactive Protein (<1.0) mg/dL Total Protein (6.4-8.2) g/dl Albumin (3.4-5.0) g/dl Globulin gm/dL Albumin/Globulin Ratio (1-2) Vitamin D 25-Hydroxy (30.0-100.0) ng/ml Procalcitonin ng/mL 01/19/21 01/19/21 01/19/21 Range/Units 05:30 05:30 06:00 WBC (4.23-9.07) K/mm3 RBC (4.63-6.08) M/mm3 Hgb (13.7-17.5) gm/dl Hct (40.1-51.0) % MCV (79.0-92.2) fl MCH (25.7-32.2) pg MCHC (32.2-35.5) g/dl RDW Std Deviation (35.1-43.9) fL Plt Count (163-337) K/mm3 MPV (9.4-12.3) fl Neut % (Auto) (34.0-67.9) % Lymph % (Auto) (21.8-53.1) % [place] % (Auto) (5.3-12.2) % Eos % (Auto) (0.8-7.0) Baso % (Auto) (0.1-1.2) % Neut # (Auto) (1.78-5.38) K/mm3 Lymph # (Auto) (1.32-3.57) K/mm3 [place] # (Auto) (0.30-0.82) K/mm3 Eos # (Auto) (0.04-0.54) K/mm3 Baso # (Auto) (0.01-0.08) K/mm3 Sodium 140 (136-145) mEq/L Potassium 3.5 (3.5-5.1) mEq/L Chloride 106 (98-107) mEq/L Carbon Dioxide 22 (21-32) mEq/L Anion Gap 15.5 H (5-15) BUN 4 L (7-18) mg/dL Creatinine 0.8 (0.7-1.3) mg/dL Est Cr Clr Drug Dosing 110.56 mL/min Estimated GFR (MDRD) > 60 (>60) mL/min BUN/Creatinine Ratio 5.0 L (14-18) Glucose 120 H (74-106) mg/dL POC Glucose 124 H (70-99) mg/dL Lactic Acid 5.3 H* (0.4-2.0) mmol/L Calcium 7.6 L (8.5-10.1) mg/dL Phosphorus (2.6-4.7) mg/dL Magnesium (1.8-2.4) mg/dl Ferritin (26-388) ng/ml Total Bilirubin (0.2-1.0) mg/dL AST (15-37) U/L ALT (16-63) U/L Alkaline Phosphatase (46-116) U/L C-Reactive Protein (<1.0) mg/dL Total Protein (6.4-8.2) g/dl Albumin (3.4-5.0) g/dl Globulin gm/dL Albumin/Globulin Ratio (1-2) Vitamin D 25-Hydroxy (30.0-100.0) ng/ml Procalcitonin ng/mL 01/19/21 01/19/21 01/19/21 Range/Units 07:07 07:59 08:22 WBC (4.23-9.07) K/mm3 RBC (4.63-6.08) M/mm3 Hgb (13.7-17.5) gm/dl Hct (40.1-51.0) % MCV (79.0-92.2) fl MCH (25.7-32.2) pg MCHC (32.2-35.5) g/dl RDW Std Deviation (35.1-43.9) fL Plt Count (163-337) K/mm3 MPV (9.4-12.3) fl Neut % (Auto) (34.0-67.9) % Lymph % (Auto) (21.8-53.1) % [place] % (Auto) (5.3-12.2) % Eos % (Auto) (0.8-7.0) Baso % (Auto) (0.1-1.2) % Neut # (Auto) (1.78-5.38) K/mm3 Lymph # (Auto) (1.32-3.57) K/mm3 [place] # (Auto) (0.30-0.82) K/mm3 Eos # (Auto) (0.04-0.54) K/mm3 Baso # (Auto) (0.01-0.08) K/mm3 Sodium 138 (136-145) mEq/L Potassium 3.4 L (3.5-5.1) mEq/L Chloride 105 (98-107) mEq/L Carbon Dioxide 23 (21-32) mEq/L Anion Gap 13.4 (5-15) BUN 4 L (7-18) mg/dL Creatinine 0.8 (0.7-1.3) mg/dL Est Cr Clr Drug Dosing 110.56 mL/min Estimated GFR (MDRD) > 60 (>60) mL/min BUN/Creatinine Ratio 5.0 L (14-18) Glucose 138 H (74-106) mg/dL POC Glucose 118 H 110 H (70-99) mg/dL Lactic Acid (0.4-2.0) mmol/L Calcium 7.6 L (8.5-10.1) mg/dL Phosphorus (2.6-4.7) mg/dL Magnesium (1.8-2.4) mg/dl Ferritin (26-388) ng/ml Total Bilirubin (0.2-1.0) mg/dL AST (15-37) U/L ALT (16-63) U/L Alkaline Phosphatase (46-116) U/L C-Reactive Protein (<1.0) mg/dL Total Protein (6.4-8.2) g/dl Albumin (3.4-5.0) g/dl Globulin gm/dL Albumin/Globulin Ratio (1-2) Vitamin D 25-Hydroxy (30.0-100.0) ng/ml Procalcitonin ng/mL 01/19/21 01/19/21 01/19/21 Range/Units 08:22 08:22 08:22 WBC (4.23-9.07) K/mm3 RBC (4.63-6.08) M/mm3 Hgb (13.7-17.5) gm/dl Hct (40.1-51.0) % MCV (79.0-92.2) fl MCH (25.7-32.2) pg MCHC (32.2-35.5) g/dl RDW Std Deviation (35.1-43.9) fL Plt Count (163-337) K/mm3 MPV (9.4-12.3) fl Neut % (Auto) (34.0-67.9) % Lymph % (Auto) (21.8-53.1) % [place] % (Auto) (5.3-12.2) % Eos % (Auto) (0.8-7.0) Baso % (Auto) (0.1-1.2) % Neut # (Auto) (1.78-5.38) K/mm3 Lymph # (Auto) (1.32-3.57) K/mm3 [place] # (Auto) (0.30-0.82) K/mm3 Eos # (Auto) (0.04-0.54) K/mm3 Baso # (Auto) (0.01-0.08) K/mm3 Sodium (136-145) mEq/L Potassium (3.5-5.1) mEq/L Chloride (98-107) mEq/L Carbon Dioxide (21-32) mEq/L Anion Gap (5-15) BUN (7-18) mg/dL Creatinine (0.7-1.3) mg/dL Est Cr Clr Drug Dosing mL/min Estimated GFR (MDRD) (>60) mL/min BUN/Creatinine Ratio (14-18) Glucose (74-106) mg/dL POC Glucose (70-99) mg/dL Lactic Acid 4.2 H* (0.4-2.0) mmol/L Calcium (8.5-10.1) mg/dL Phosphorus (2.6-4.7) mg/dL Magnesium (1.8-2.4) mg/dl Ferritin 292 (26-388) ng/ml Total Bilirubin (0.2-1.0) mg/dL AST (15-37) U/L ALT (16-63) U/L Alkaline Phosphatase (46-116) U/L C-Reactive Protein 23.2 H* (<1.0) mg/dL Total Protein (6.4-8.2) g/dl Albumin (3.4-5.0) g/dl Globulin gm/dL Albumin/Globulin Ratio (1-2) Vitamin D 25-Hydroxy 12.1 L (30.0-100.0) ng/ml Procalcitonin ng/mL 01/19/21 01/19/21 Range/Units 09:01 10:04 WBC (4.23-9.07) K/mm3 RBC (4.63-6.08) M/mm3 Hgb (13.7-17.5) gm/dl Hct (40.1-51.0) % MCV (79.0-92.2) fl MCH (25.7-32.2) pg MCHC (32.2-35.5) g/dl RDW Std Deviation (35.1-43.9) fL Plt Count (163-337) K/mm3 MPV (9.4-12.3) fl Neut % (Auto) (34.0-67.9) % Lymph % (Auto) (21.8-53.1) % [place] % (Auto) (5.3-12.2) % Eos % (Auto) (0.8-7.0) Baso % (Auto) (0.1-1.2) % Neut # (Auto) (1.78-5.38) K/mm3 Lymph # (Auto) (1.32-3.57) K/mm3 [place] # (Auto) (0.30-0.82) K/mm3 Eos # (Auto) (0.04-0.54) K/mm3 Baso # (Auto) (0.01-0.08) K/mm3 Sodium (136-145) mEq/L Potassium (3.5-5.1) mEq/L Chloride (98-107) mEq/L Carbon Dioxide (21-32) mEq/L Anion Gap (5-15) BUN (7-18) mg/dL Creatinine (0.7-1.3) mg/dL Est Cr Clr Drug Dosing mL/min Estimated GFR (MDRD) (>60) mL/min BUN/Creatinine Ratio (14-18) Glucose (74-106) mg/dL POC Glucose 199 H 167 H (70-99) mg/dL Lactic Acid (0.4-2.0) mmol/L Calcium (8.5-10.1) mg/dL Phosphorus (2.6-4.7) mg/dL Magnesium (1.8-2.4) mg/dl Ferritin (26-388) ng/ml Total Bilirubin (0.2-1.0) mg/dL AST (15-37) U/L ALT (16-63) U/L Alkaline Phosphatase (46-116) U/L C-Reactive Protein (<1.0) mg/dL Total Protein (6.4-8.2) g/dl Albumin (3.4-5.0) g/dl Globulin gm/dL Albumin/Globulin Ratio (1-2) Vitamin D 25-Hydroxy (30.0-100.0) ng/ml Procalcitonin ng/mL Result Diagrams: 01/19/21 02:35 01/19/21 08:22 Rosalio Results Last 24 hrs: Microbiology 01/16/21 22:00 Aerobic Blood Culture - Preliminary Blood NO GROWTH AFTER 2 DAYS Anaerobic Blood Culture - Preliminary NO GROWTH AFTER 2 DAYS 01/16/21 21:58 Aerobic Blood Culture - Preliminary Blood NO GROWTH AFTER 2 DAYS Anaerobic Blood Culture - Preliminary NO GROWTH AFTER 2 DAYS 01/17/21 21:36 Aerobic Blood Culture - Preliminary Blood - Venous - Lab Draw NO GROWTH AFTER 1 DAY Anaerobic Blood Culture - Preliminary NO GROWTH AFTER 1 DAY 01/17/21 21:32 Aerobic Blood Culture - Preliminary Blood - Venous NO GROWTH AFTER 1 DAY Anaerobic Blood Culture - Preliminary NO GROWTH AFTER 1 DAY Sepsis Event Note - Evaluation Sepsis Screening Result: No Definite Risk - Focused Exam Vital Signs: Vital Signs Temp Pulse Pulse Resp BP BP Pulse Ox 01/19/21 08:02 98 128/95 H 01/19/21 08:00 36.7 C 104 H 18 125/95 H 95 01/19/21 04:00 36.7 C 14 119/86 97 01/19/21 00:00 36.6 C 18 107/71 92 L - Problem List Review Problem List Initiated/Reviewed/Updated: Yes - My Orders Last 24 Hours: My Active Orders 01/18/21 20:43 Code Status [Resuscitation Status] Routine 01/19/21 08:56 D-DIMER QUANTITATIVE [COAG] Routine 01/19/21 09:30 Potassium Chloride [KCl in Water 10 MEQ/100 ML] 10 meq Premix Bag 1 bag IV Q1H 01/19/21 12:00 Potassium Phosphates 30 mmole Sodium Chloride 0.9% [Normal Saline] 500 ml IV ONETIME 01/19/21 12:30 BASIC METABOLIC PANEL,BMP [CHEM] Q4H 01/19/21 16:30 BASIC METABOLIC PANEL,BMP [CHEM] Q4H 01/19/21 17:00 Magnesium Sulfate/Water [Magnesium Sulfate in Water 4 GM/50 ML] 4 gm Premix Bag 1 bag IV ONETIME 01/19/21 20:30 BASIC METABOLIC PANEL,BMP [CHEM] Q4H 01/20/21 00:30 BASIC METABOLIC PANEL,BMP [CHEM] Q4H 01/20/21 00:45 CBC WITH AUTO DIFF [HEME] DAILY COMPREHENSIVE METABOLIC PN,CMP [CHEM] DAILY 01/20/21 04:30 BASIC METABOLIC PANEL,BMP [CHEM] Q4H 01/20/21 05:00 MAGNESIUM [CHEM] Routine PHOSPHORUS [CHEM] Routine 01/20/21 08:30 BASIC METABOLIC PANEL,BMP [CHEM] Q4H 01/20/21 12:30 BASIC METABOLIC PANEL,BMP [CHEM] Q4H 01/20/21 16:30 BASIC METABOLIC PANEL,BMP [CHEM] Q4H 01/20/21 20:30 BASIC METABOLIC PANEL,BMP [CHEM] Q4H 01/21/21 00:30 BASIC METABOLIC PANEL,BMP [CHEM] Q4H 01/21/21 00:45 CBC WITH AUTO DIFF [HEME] DAILY COMPREHENSIVE METABOLIC PN,CMP [CHEM] DAILY 01/21/21 04:30 BASIC METABOLIC PANEL,BMP [CHEM] Q4H 01/21/21 08:30 BASIC METABOLIC PANEL,BMP [CHEM] Q4H 01/21/21 12:30 BASIC METABOLIC PANEL,BMP [CHEM] Q4H 01/22/21 00:45 CBC WITH AUTO DIFF [HEME] DAILY COMPREHENSIVE METABOLIC PN,CMP [CHEM] DAILY - Plan Plan:: Patient is a 25-year-old male with a history of type 1 diabetes and medical noncompliance who was brought to the ER due to unresponsiveness. Patient was found unresponsive by a friend. Patient has had multiple ER visits due to AMS and DKA in the past. Assessment: 1. Acute hypoxic respiratory failure 2. DKA 3. Pneumonia, bilateral 4. AMS- resolved 5. Sepsis 2nd to pneumonia, improved/resolved 6. DM type 1 7. Medical noncompliance 8. Leukocytosis -resolved 9. FABIOLA or FABIOLA on CKD, creatinine 1.2 on 08/14/2020, resolved 10. Elevation of liver enzymes 11. Substance abuse - UDS positive for cocaine 12. Tobacco abuse disorder 13. Depression 14. Electrolytes imbalance-hypomagnesemia and hyperphosphatasemia Plan: 1. Continue to monitor in the ICU ICU. Card monitor, pulse ox, oxygen therapy if necessary 2. For respiratory failure, etiology includes pneumonia. He is now on room air Pulse ox and oxygen therapy to keep oxygen saturation greater than 92%. 3. Chest CT -diffuse consolidation within both posterior lung bases. Patient was positive for COVID-19. At this moment I would treat the patient pneumonia as a community-acquired pneumonia and aspiration pneumonia instead of Covid pneumonia Zosyn and azithromycin. Will add steroid if his pneumonia does not get improved. CRP, D-dimer, ferritin, 25 vitamin D 4. Bicarbonate 23, Anion gap 15.5 Creatinine 0.8 Continue insulin drip Continue D5 + potassium 20 MDQ + 1/2 normal saline 80 cc/h BMP and Accu-Chek every inclusion paraeducator consulted 5. For AMS, improving. Etiologies include clinical HHS (glucose initially was a 900), sepsis/infection, dehydration, other metabolic process CT of the head negative for acute change. 6. Patient has met sepsis criteria. Blood culture. IV resuscitation. Antibiotics. Trending lactic acid 7. N.p.o. Patient home medication includes Lantus 20 units daily. 8. 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 Patient has had multiple DKA in the past. 9. Creatinine normalized. Avoid nephrotoxic meds. Repeat the renal function morning 10. Patient seems to have chronic elevation of liver enzymes. Repeat the liver enzymes in the morning. Follow with the PCP 11. Urine drug screen positive for cocaine. Troponin negative x 2. Aspirin and lorazepam. Social work consulted for substance abuse and tobacco abuse 12. Telemetry psych Dr. Zamora consulted for depression. f/w Dr. Zamora after he is discharged. 13. DVT prophylaxis: Lovenox 14. CODE STATUS: Full
[2021-01-19] MEDS ORDERED: Magnesium Sulfate/Water 4 GM in Premix Bag 1 BAG IV ONE ×2 (14:00→17:00)
[2021-01-19] MEDS ORDERED: Enoxaparin 40 MG/0.4 ML Syringe SUBCUT ONE ×2 (14:10→14:19)
[2021-01-19] MEDS: Dexamethasone 4 MG Tab PO SCH (14:36)
[2021-01-19] MEDS: POTASSIUM CHLORIDE IV SCH ×3 (19:21)
[2021-01-19] MEDS: DEXTROSE 10% IV SCH ×3 (19:21)
[2021-01-19] MEDS: SODIUM CHLORIDE IV SCH ×3 (19:21)
[2021-01-19] MEDS: [UNRECOGNIZED DRUG - OTHER] IV SCH ×3 (19:21)
[2021-01-19] MEDS: Azithromycin 500 MG in Sodium Chloride 0.9% 250 ML IV SCH (20:12)
[2021-01-19] MEDS: Enoxaparin 40 MG/0.4 ML Syringe SUBCUT SCH (20:13)
[2021-01-20] MEDS: Piperacillin/Tazobactam 4.5 GM in Sodium Chloride 0.9% 100 ML IV SCH ×3 (05:15→21:27)
[2021-01-20] MEDS: Aspirin 81 MG Tab.Chew PO SCH (08:39)
[2021-01-20] MEDS: Enoxaparin 40 MG/0.4 ML Syringe SUBCUT SCH ×2 (08:39→20:13)
[2021-01-20] MEDS: Pantoprazole 40 MG Vial IVPUSH SCH (08:39)
[2021-01-20] MEDS: Metoprolol Tartrate 25 MG Tab PO SCH (08:39)
[2021-01-20] MEDS: Dexamethasone 4 MG Tab PO SCH (08:40)
[2021-01-20] MEDS: DEXTROSE 10% IV SCH ×3 (08:40)
[2021-01-20] MEDS: POTASSIUM CHLORIDE IV SCH ×3 (08:40)
[2021-01-20] MEDS: SODIUM CHLORIDE IV SCH ×3 (08:40)
[2021-01-20] MEDS: [UNRECOGNIZED DRUG - OTHER] IV SCH ×3 (08:40)
--- NOTE | 2021-01-20 08:53 | PCM.PN ---
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 This morning the patient is hungry and wishing to eat. Patient remains on insulin drip. Patient does continue to have elevated lactic acid however his gap has decreased and patient's CO2 is 22 - Review of Systems General: Reports: No Symptoms HEENT: Reports: No Symptoms Pulmonary: Reports: No Symptoms Cardiovascular: Reports: No Symptoms Gastrointestinal: Reports: No Symptoms Genitourinary: Reports: No Symptoms Musculoskeletal: Reports: No Symptoms Skin: Reports: No Symptoms Neurological: Reports: No Symptoms Psychiatric: Reports: No Symptoms - Patient Data Vitals - Most Recent: Last Vital Signs Temp 97.0 F 01/20/21 08:00 Pulse 99 01/20/21 08:39 Resp 18 01/20/21 08:00 BP 123/92 H 01/20/21 08:39 Pulse Ox 99 01/20/21 08:00 Weight - Most Recent: 122 lb I&O - Last 24 Hours: Intake & Output 01/19/21 01/20/21 01/20/21 22:59 06:59 14:59 Intake Total 1926 820 Output Total 720 1200 Balance 1206 -380 Lab Results Last 24 Hours: Laboratory Results - last 24 hr 01/19/21 01/19/21 01/19/21 Range/Units 08:22 08:22 08:22 WBC (4.23-9.07) K/mm3 RBC (4.63-6.08) M/mm3 Hgb (13.7-17.5) gm/dl Hct (40.1-51.0) % MCV (79.0-92.2) fl MCH (25.7-32.2) pg MCHC (32.2-35.5) g/dl RDW Std Deviation (35.1-43.9) fL Plt Count (163-337) K/mm3 MPV (9.4-12.3) fl Neut % (Auto) (34.0-67.9) % Lymph % (Auto) (21.8-53.1) % Mel[place] % (Auto) (5.3-12.2) % Eos % (Auto) (0.8-7.0) Baso % (Auto) (0.1-1.2) % Neut # (Auto) (1.78-5.38) K/mm3 Lymph # (Auto) (1.32-3.57) K/mm3 Mellette # (Auto) (0.30-0.82) K/mm3 Eos # (Auto) (0.04-0.54) K/mm3 Baso # (Auto) (0.01-0.08) K/mm3 Manual Slide Review D-Dimer, Quantitative (0.19-0.50) mg/L Sodium 138 (136-145) mEq/L Potassium 3.4 L (3.5-5.1) mEq/L Chloride 105 (98-107) mEq/L Carbon Dioxide 23 (21-32) mEq/L Anion Gap 13.4 (5-15) BUN 4 L (7-18) mg/dL Creatinine 0.8 (0.7-1.3) mg/dL Est Cr Clr Drug Dosing 110.56 mL/min Estimated GFR (MDRD) > 60 (>60) mL/min BUN/Creatinine Ratio 5.0 L (14-18) Glucose 138 H (74-106) mg/dL POC Glucose (70-99) mg/dL Lactic Acid 4.2 H* (0.4-2.0) mmol/L Calcium 7.6 L (8.5-10.1) mg/dL Phosphorus (2.6-4.7) mg/dL Magnesium (1.8-2.4) mg/dl Ferritin (26-388) ng/ml Total Bilirubin (0.2-1.0) mg/dL AST (15-37) U/L ALT (16-63) U/L Alkaline Phosphatase (46-116) U/L C-Reactive Protein 23.2 H* (<1.0) mg/dL Total Protein (6.4-8.2) g/dl Albumin (3.4-5.0) g/dl Globulin gm/dL Albumin/Globulin Ratio (1-2) Vitamin D 25-Hydroxy 12.1 L (30.0-100.0) ng/ml 01/19/21 01/19/21 01/19/21 Range/Units 08:22 09:01 10:04 WBC (4.23-9.07) K/mm3 RBC (4.63-6.08) M/mm3 Hgb (13.7-17.5) gm/dl Hct (40.1-51.0) % MCV (79.0-92.2) fl MCH (25.7-32.2) pg MCHC (32.2-35.5) g/dl RDW Std Deviation (35.1-43.9) fL Plt Count (163-337) K/mm3 MPV (9.4-12.3) fl Neut % (Auto) (34.0-67.9) % Lymph % (Auto) (21.8-53.1) % Mellette % (Auto) (5.3-12.2) % Eos % (Auto) (0.8-7.0) Baso % (Auto) (0.1-1.2) % Neut # (Auto) (1.78-5.38) K/mm3 Lymph # (Auto) (1.32-3.57) K/mm3 Mel[place] # (Auto) (0.30-0.82) K/mm3 Eos # (Auto) (0.04-0.54) K/mm3 Baso # (Auto) (0.01-0.08) K/mm3 Manual Slide Review D-Dimer, Quantitative (0.19-0.50) mg/L Sodium (136-145) mEq/L Potassium (3.5-5.1) mEq/L Chloride (98-107) mEq/L Carbon Dioxide (21-32) mEq/L Anion Gap (5-15) BUN (7-18) mg/dL Creatinine (0.7-1.3) mg/dL Est Cr Clr Drug Dosing mL/min Estimated GFR (MDRD) (>60) mL/min BUN/Creatinine Ratio (14-18) Glucose (74-106) mg/dL POC Glucose 199 H 167 H (70-99) mg/dL Lactic Acid (0.4-2.0) mmol/L Calcium (8.5-10.1) mg/dL Phosphorus (2.6-4.7) mg/dL Magnesium (1.8-2.4) mg/dl Ferritin 292 (26-388) ng/ml Total Bilirubin (0.2-1.0) mg/dL AST (15-37) U/L ALT (16-63) U/L Alkaline Phosphatase (46-116) U/L C-Reactive Protein (<1.0) mg/dL Total Protein (6.4-8.2) g/dl Albumin (3.4-5.0) g/dl Globulin gm/dL Albumin/Globulin Ratio (1-2) Vitamin D 25-Hydroxy (30.0-100.0) ng/ml 01/19/21 01/19/21 01/19/21 Range/Units 11:03 12:04 12:35 WBC (4.23-9.07) K/mm3 RBC (4.63-6.08) M/mm3 Hgb (13.7-17.5) gm/dl Hct (40.1-51.0) % MCV (79.0-92.2) fl MCH (25.7-32.2) pg MCHC (32.2-35.5) g/dl RDW Std Deviation (35.1-43.9) fL Plt Count (163-337) K/mm3 MPV (9.4-12.3) fl Neut % (Auto) (34.0-67.9) % Lymph % (Auto) (21.8-53.1) % Mellette % (Auto) (5.3-12.2) % Eos % (Auto) (0.8-7.0) Baso % (Auto) (0.1-1.2) % Neut # (Auto) (1.78-5.38) K/mm3 Lymph # (Auto) (1.32-3.57) K/mm3 Mel[place] # (Auto) (0.30-0.82) K/mm3 Eos # (Auto) (0.04-0.54) K/mm3 Baso # (Auto) (0.01-0.08) K/mm3 Manual Slide Review D-Dimer, Quantitative (0.19-0.50) mg/L Sodium 135 L (136-145) mEq/L Potassium 4.0 (3.5-5.1) mEq/L Chloride 103 (98-107) mEq/L Carbon Dioxide 21 (21-32) mEq/L Anion Gap 15.0 (5-15) BUN 5 L (7-18) mg/dL Creatinine 0.8 (0.7-1.3) mg/dL Est Cr Clr Drug Dosing 110.56 mL/min Estimated GFR (MDRD) > 60 (>60) mL/min BUN/Creatinine Ratio 6.3 L (14-18) Glucose 227 H (74-106) mg/dL POC Glucose 181 H 220 H (70-99) mg/dL Lactic Acid (0.4-2.0) mmol/L Calcium 7.3 L (8.5-10.1) mg/dL Phosphorus (2.6-4.7) mg/dL Magnesium (1.8-2.4) mg/dl Ferritin (26-388) ng/ml Total Bilirubin (0.2-1.0) mg/dL AST (15-37) U/L ALT (16-63) U/L Alkaline Phosphatase (46-116) U/L C-Reactive Protein (<1.0) mg/dL Total Protein (6.4-8.2) g/dl Albumin (3.4-5.0) g/dl Globulin gm/dL Albumin/Globulin Ratio (1-2) Vitamin D 25-Hydroxy (30.0-100.0) ng/ml 01/19/21 01/19/21 01/19/21 Range/Units 12:37 13:02 13:58 WBC (4.23-9.07) K/mm3 RBC (4.63-6.08) M/mm3 Hgb (13.7-17.5) gm/dl Hct (40.1-51.0) % MCV (79.0-92.2) fl MCH (25.7-32.2) pg MCHC (32.2-35.5) g/dl RDW Std Deviation (35.1-43.9) fL Plt Count (163-337) K/mm3 MPV (9.4-12.3) fl Neut % (Auto) (34.0-67.9) % Lymph % (Auto) (21.8-53.1) % Mellette % (Auto) (5.3-12.2) % Eos % (Auto) (0.8-7.0) Baso % (Auto) (0.1-1.2) % Neut # (Auto) (1.78-5.38) K/mm3 Lymph # (Auto) (1.32-3.57) K/mm3 Mel[place] # (Auto) (0.30-0.82) K/mm3 Eos # (Auto) (0.04-0.54) K/mm3 Baso # (Auto) (0.01-0.08) K/mm3 Manual Slide Review D-Dimer, Quantitative 1.04 H (0.19-0.50) mg/L Sodium (136-145) mEq/L Potassium (3.5-5.1) mEq/L Chloride (98-107) mEq/L Carbon Dioxide (21-32) mEq/L Anion Gap (5-15) BUN (7-18) mg/dL Creatinine (0.7-1.3) mg/dL Est Cr Clr Drug Dosing mL/min Estimated GFR (MDRD) (>60) mL/min BUN/Creatinine Ratio (14-18) Glucose (74-106) mg/dL POC Glucose 191 H 190 H (70-99) mg/dL Lactic Acid (0.4-2.0) mmol/L Calcium (8.5-10.1) mg/dL Phosphorus (2.6-4.7) mg/dL Magnesium (1.8-2.4) mg/dl Ferritin (26-388) ng/ml Total Bilirubin (0.2-1.0) mg/dL AST (15-37) U/L ALT (16-63) U/L Alkaline Phosphatase (46-116) U/L C-Reactive Protein (<1.0) mg/dL Total Protein (6.4-8.2) g/dl Albumin (3.4-5.0) g/dl Globulin gm/dL Albumin/Globulin Ratio (1-2) Vitamin D 25-Hydroxy (30.0-100.0) ng/ml 01/19/21 01/19/21 01/19/21 Range/Units 14:59 16:00 16:32 WBC (4.23-9.07) K/mm3 RBC (4.63-6.08) M/mm3 Hgb (13.7-17.5) gm/dl Hct (40.1-51.0) % MCV (79.0-92.2) fl MCH (25.7-32.2) pg MCHC (32.2-35.5) g/dl RDW Std Deviation (35.1-43.9) fL Plt Count (163-337) K/mm3 MPV (9.4-12.3) fl Neut % (Auto) (34.0-67.9) % Lymph % (Auto) (21.8-53.1) % Mel[place] % (Auto) (5.3-12.2) % Eos % (Auto) (0.8-7.0) Baso % (Auto) (0.1-1.2) % Neut # (Auto) (1.78-5.38) K/mm3 Lymph # (Auto) (1.32-3.57) K/mm3 Mel[place] # (Auto) (0.30-0.82) K/mm3 Eos # (Auto) (0.04-0.54) K/mm3 Baso # (Auto) (0.01-0.08) K/mm3 Manual Slide Review D-Dimer, Quantitative (0.19-0.50) mg/L Sodium 135 L (136-145) mEq/L Potassium 4.3 (3.5-5.1) mEq/L Chloride 102 (98-107) mEq/L Carbon Dioxide 21 (21-32) mEq/L Anion Gap 16.3 H (5-15) BUN 4 L (7-18) mg/dL Creatinine 0.8 (0.7-1.3) mg/dL Est Cr Clr Drug Dosing 110.56 mL/min Estimated GFR (MDRD) > 60 (>60) mL/min BUN/Creatinine Ratio 5.0 L (14-18) Glucose 237 H (74-106) mg/dL POC Glucose 204 H 233 H (70-99) mg/dL Lactic Acid (0.4-2.0) mmol/L Calcium 7.2 L (8.5-10.1) mg/dL Phosphorus (2.6-4.7) mg/dL Magnesium (1.8-2.4) mg/dl Ferritin (26-388) ng/ml Total Bilirubin (0.2-1.0) mg/dL AST (15-37) U/L ALT (16-63) U/L Alkaline Phosphatase (46-116) U/L C-Reactive Protein (<1.0) mg/dL Total Protein (6.4-8.2) g/dl Albumin (3.4-5.0) g/dl Globulin gm/dL Albumin/Globulin Ratio (1-2) Vitamin D 25-Hydroxy (30.0-100.0) ng/ml 01/19/21 01/19/21 01/19/21 Range/Units 16:32 17:01 18:02 WBC (4.23-9.07) K/mm3 RBC (4.63-6.08) M/mm3 Hgb (13.7-17.5) gm/dl Hct (40.1-51.0) % MCV (79.0-92.2) fl MCH (25.7-32.2) pg MCHC (32.2-35.5) g/dl RDW Std Deviation (35.1-43.9) fL Plt Count (163-337) K/mm3 MPV (9.4-12.3) fl Neut % (Auto) (34.0-67.9) % Lymph % (Auto) (21.8-53.1) % Mellette % (Auto) (5.3-12.2) % Eos % (Auto) (0.8-7.0) Baso % (Auto) (0.1-1.2) % Neut # (Auto) (1.78-5.38) K/mm3 Lymph # (Auto) (1.32-3.57) K/mm3 Mel[place] # (Auto) (0.30-0.82) K/mm3 Eos # (Auto) (0.04-0.54) K/mm3 Baso # (Auto) (0.01-0.08) K/mm3 Manual Slide Review D-Dimer, Quantitative (0.19-0.50) mg/L Sodium (136-145) mEq/L Potassium (3.5-5.1) mEq/L Chloride (98-107) mEq/L Carbon Dioxide (21-32) mEq/L Anion Gap (5-15) BUN (7-18) mg/dL Creatinine (0.7-1.3) mg/dL Est Cr Clr Drug Dosing mL/min Estimated GFR (MDRD) (>60) mL/min BUN/Creatinine Ratio (14-18) Glucose (74-106) mg/dL POC Glucose 192 H 175 H (70-99) mg/dL Lactic Acid 3.9 H* (0.4-2.0) mmol/L Calcium (8.5-10.1) mg/dL Phosphorus (2.6-4.7) mg/dL Magnesium (1.8-2.4) mg/dl Ferritin (26-388) ng/ml Total Bilirubin (0.2-1.0) mg/dL AST (15-37) U/L ALT (16-63) U/L Alkaline Phosphatase (46-116) U/L C-Reactive Protein (<1.0) mg/dL Total Protein (6.4-8.2) g/dl Albumin (3.4-5.0) g/dl Globulin gm/dL Albumin/Globulin Ratio (1-2) Vitamin D 25-Hydroxy (30.0-100.0) ng/ml 01/19/21 01/19/21 01/19/21 Range/Units 19:24 20:11 20:38 WBC (4.23-9.07) K/mm3 RBC (4.63-6.08) M/mm3 Hgb (13.7-17.5) gm/dl Hct (40.1-51.0) % MCV (79.0-92.2) fl MCH (25.7-32.2) pg MCHC (32.2-35.5) g/dl RDW Std Deviation (35.1-43.9) fL Plt Count (163-337) K/mm3 MPV (9.4-12.3) fl Neut % (Auto) (34.0-67.9) % Lymph % (Auto) (21.8-53.1) % Mel[place] % (Auto) (5.3-12.2) % Eos % (Auto) (0.8-7.0) Baso % (Auto) (0.1-1.2) % Neut # (Auto) (1.78-5.38) K/mm3 Lymph # (Auto) (1.32-3.57) K/mm3 Mel[place] # (Auto) (0.30-0.82) K/mm3 Eos # (Auto) (0.04-0.54) K/mm3 Baso # (Auto) (0.01-0.08) K/mm3 Manual Slide Review D-Dimer, Quantitative (0.19-0.50) mg/L Sodium 135 L (136-145) mEq/L Potassium 4.4 (3.5-5.1) mEq/L Chloride 102 (98-107) mEq/L Carbon Dioxide 21 (21-32) mEq/L Anion Gap 16.4 H (5-15) BUN 4 L (7-18) mg/dL Creatinine 0.7 (0.7-1.3) mg/dL Est Cr Clr Drug Dosing 126.36 mL/min Estimated GFR (MDRD) > 60 (>60) mL/min BUN/Creatinine Ratio 5.7 L (14-18) Glucose 238 H (74-106) mg/dL POC Glucose 188 H 200 H (70-99) mg/dL Lactic Acid (0.4-2.0) mmol/L Calcium 7.5 L (8.5-10.1) mg/dL Phosphorus (2.6-4.7) mg/dL Magnesium (1.8-2.4) mg/dl Ferritin (26-388) ng/ml Total Bilirubin (0.2-1.0) mg/dL AST (15-37) U/L ALT (16-63) U/L Alkaline Phosphatase (46-116) U/L C-Reactive Protein (<1.0) mg/dL Total Protein (6.4-8.2) g/dl Albumin (3.4-5.0) g/dl Globulin gm/dL Albumin/Globulin Ratio (1-2) Vitamin D 25-Hydroxy (30.0-100.0) ng/ml 01/19/21 01/19/21 01/19/21 Range/Units 20:38 21:08 21:58 WBC (4.23-9.07) K/mm3 RBC (4.63-6.08) M/mm3 Hgb (13.7-17.5) gm/dl Hct (40.1-51.0) % MCV (79.0-92.2) fl MCH (25.7-32.2) pg MCHC (32.2-35.5) g/dl RDW Std Deviation (35.1-43.9) fL Plt Count (163-337) K/mm3 MPV (9.4-12.3) fl Neut % (Auto) (34.0-67.9) % Lymph % (Auto) (21.8-53.1) % Mel[place] % (Auto) (5.3-12.2) % Eos % (Auto) (0.8-7.0) Baso % (Auto) (0.1-1.2) % Neut # (Auto) (1.78-5.38) K/mm3 Lymph # (Auto) (1.32-3.57) K/mm3 Mel[place] # (Auto) (0.30-0.82) K/mm3 Eos # (Auto) (0.04-0.54) K/mm3 Baso # (Auto) (0.01-0.08) K/mm3 Manual Slide Review D-Dimer, Quantitative (0.19-0.50) mg/L Sodium (136-145) mEq/L Potassium (3.5-5.1) mEq/L Chloride (98-107) mEq/L Carbon Dioxide (21-32) mEq/L Anion Gap (5-15) BUN (7-18) mg/dL Creatinine (0.7-1.3) mg/dL Est Cr Clr Drug Dosing mL/min Estimated GFR (MDRD) (>60) mL/min BUN/Creatinine Ratio (14-18) Glucose (74-106) mg/dL POC Glucose 239 H 234 H (70-99) mg/dL Lactic Acid 4.3 H* (0.4-2.0) mmol/L Calcium (8.5-10.1) mg/dL Phosphorus (2.6-4.7) mg/dL Magnesium (1.8-2.4) mg/dl Ferritin (26-388) ng/ml Total Bilirubin (0.2-1.0) mg/dL AST (15-37) U/L ALT (16-63) U/L Alkaline Phosphatase (46-116) U/L C-Reactive Protein (<1.0) mg/dL Total Protein (6.4-8.2) g/dl Albumin (3.4-5.0) g/dl Globulin gm/dL Albumin/Globulin Ratio (1-2) Vitamin D 25-Hydroxy (30.0-100.0) ng/ml 01/19/21 01/20/21 01/20/21 Range/Units 22:57 00:00 00:42 WBC (4.23-9.07) K/mm3 RBC (4.63-6.08) M/mm3 Hgb (13.7-17.5) gm/dl Hct (40.1-51.0) % MCV (79.0-92.2) fl MCH (25.7-32.2) pg MCHC (32.2-35.5) g/dl RDW Std Deviation (35.1-43.9) fL Plt Count (163-337) K/mm3 MPV (9.4-12.3) fl Neut % (Auto) (34.0-67.9) % Lymph % (Auto) (21.8-53.1) % Mel[place] % (Auto) (5.3-12.2) % Eos % (Auto) (0.8-7.0) Baso % (Auto) (0.1-1.2) % Neut # (Auto) (1.78-5.38) K/mm3 Lymph # (Auto) (1.32-3.57) K/mm3 Mel[place] # (Auto) (0.30-0.82) K/mm3 Eos # (Auto) (0.04-0.54) K/mm3 Baso # (Auto) (0.01-0.08) K/mm3 Manual Slide Review D-Dimer, Quantitative (0.19-0.50) mg/L Sodium 136 (136-145) mEq/L Potassium 4.0 (3.5-5.1) mEq/L Chloride 102 (98-107) mEq/L Carbon Dioxide 19 L (21-32) mEq/L Anion Gap 19.0 H (5-15) BUN 4 L (7-18) mg/dL Creatinine 0.9 (0.7-1.3) mg/dL Est Cr Clr Drug Dosing 98.28 mL/min Estimated GFR (MDRD) > 60 (>60) mL/min BUN/Creatinine Ratio 4.4 L (14-18) Glucose 220 H (74-106) mg/dL POC Glucose 231 H 195 H (70-99) mg/dL Lactic Acid (0.4-2.0) mmol/L Calcium 8.0 L (8.5-10.1) mg/dL Phosphorus (2.6-4.7) mg/dL Magnesium (1.8-2.4) mg/dl Ferritin (26-388) ng/ml Total Bilirubin (0.2-1.0) mg/dL AST (15-37) U/L ALT (16-63) U/L Alkaline Phosphatase (46-116) U/L C-Reactive Protein (<1.0) mg/dL Total Protein (6.4-8.2) g/dl Albumin (3.4-5.0) g/dl Globulin gm/dL Albumin/Globulin Ratio (1-2) Vitamin D 25-Hydroxy (30.0-100.0) ng/ml 01/20/21 01/20/21 01/20/21 Range/Units 00:42 01:17 02:03 WBC (4.23-9.07) K/mm3 RBC (4.63-6.08) M/mm3 Hgb (13.7-17.5) gm/dl Hct (40.1-51.0) % MCV (79.0-92.2) fl MCH (25.7-32.2) pg MCHC (32.2-35.5) g/dl RDW Std Deviation (35.1-43.9) fL Plt Count (163-337) K/mm3 MPV (9.4-12.3) fl Neut % (Auto) (34.0-67.9) % Lymph % (Auto) (21.8-53.1) % Mel[place] % (Auto) (5.3-12.2) % Eos % (Auto) (0.8-7.0) Baso % (Auto) (0.1-1.2) % Neut # (Auto) (1.78-5.38) K/mm3 Lymph # (Auto) (1.32-3.57) K/mm3 Mel[place] # (Auto) (0.30-0.82) K/mm3 Eos # (Auto) (0.04-0.54) K/mm3 Baso # (Auto) (0.01-0.08) K/mm3 Manual Slide Review D-Dimer, Quantitative (0.19-0.50) mg/L Sodium (136-145) mEq/L Potassium (3.5-5.1) mEq/L Chloride (98-107) mEq/L Carbon Dioxide (21-32) mEq/L Anion Gap (5-15) BUN (7-18) mg/dL Creatinine (0.7-1.3) mg/dL Est Cr Clr Drug Dosing mL/min Estimated GFR (MDRD) (>60) mL/min BUN/Creatinine Ratio (14-18) Glucose (74-106) mg/dL POC Glucose 194 H 186 H (70-99) mg/dL Lactic Acid 7.1 H* (0.4-2.0) mmol/L Calcium (8.5-10.1) mg/dL Phosphorus (2.6-4.7) mg/dL Magnesium (1.8-2.4) mg/dl Ferritin (26-388) ng/ml Total Bilirubin (0.2-1.0) mg/dL AST (15-37) U/L ALT (16-63) U/L Alkaline Phosphatase (46-116) U/L C-Reactive Protein (<1.0) mg/dL Total Protein (6.4-8.2) g/dl Albumin (3.4-5.0) g/dl Globulin gm/dL Albumin/Globulin Ratio (1-2) Vitamin D 25-Hydroxy (30.0-100.0) ng/ml 01/20/21 01/20/21 01/20/21 Range/Units 03:04 04:07 04:38 WBC 8.34 (4.23-9.07) K/mm3 RBC 3.17 L (4.63-6.08) M/mm3 Hgb 9.7 L (13.7-17.5) gm/dl Hct 27.9 L (40.1-51.0) % MCV 88.0 (79.0-92.2) fl MCH 30.6 (25.7-32.2) pg MCHC 34.8 (32.2-35.5) g/dl RDW Std Deviation 44.0 H (35.1-43.9) fL Plt Count 145 L (163-337) K/mm3 MPV 8.6 L (9.4-12.3) fl Neut % (Auto) 85.4 H (34.0-67.9) % Lymph % (Auto) 10.4 L (21.8-53.1) % Mel[place] % (Auto) 4.1 L (5.3-12.2) % Eos % (Auto) 0 L (0.8-7.0) Baso % (Auto) 0.0 L (0.1-1.2) % Neut # (Auto) 7.12 H (1.78-5.38) K/mm3 Lymph # (Auto) 0.87 L (1.32-3.57) K/mm3 Mel[place] # (Auto) 0.34 (0.30-0.82) K/mm3 Eos # (Auto) 0.00 L (0.04-0.54) K/mm3 Baso # (Auto) 0.00 L (0.01-0.08) K/mm3 Manual Slide Review Abnormal smear D-Dimer, Quantitative (0.19-0.50) mg/L Sodium (136-145) mEq/L Potassium (3.5-5.1) mEq/L Chloride (98-107) mEq/L Carbon Dioxide (21-32) mEq/L Anion Gap (5-15) BUN (7-18) mg/dL Creatinine (0.7-1.3) mg/dL Est Cr Clr Drug Dosing mL/min Estimated GFR (MDRD) (>60) mL/min BUN/Creatinine Ratio (14-18) Glucose (74-106) mg/dL POC Glucose 187 H 185 H (70-99) mg/dL Lactic Acid (0.4-2.0) mmol/L Calcium (8.5-10.1) mg/dL Phosphorus (2.6-4.7) mg/dL Magnesium (1.8-2.4) mg/dl Ferritin (26-388) ng/ml Total Bilirubin (0.2-1.0) mg/dL AST (15-37) U/L ALT (16-63) U/L Alkaline Phosphatase (46-116) U/L C-Reactive Protein (<1.0) mg/dL Total Protein (6.4-8.2) g/dl Albumin (3.4-5.0) g/dl Globulin gm/dL Albumin/Globulin Ratio (1-2) Vitamin D 25-Hydroxy (30.0-100.0) ng/ml 01/20/21 01/20/21 01/20/21 Range/Units 04:38 04:38 04:38 WBC (4.23-9.07) K/mm3 RBC (4.63-6.08) M/mm3 Hgb (13.7-17.5) gm/dl Hct (40.1-51.0) % MCV (79.0-92.2) fl MCH (25.7-32.2) pg MCHC (32.2-35.5) g/dl RDW Std Deviation (35.1-43.9) fL Plt Count (163-337) K/mm3 MPV (9.4-12.3) fl Neut % (Auto) (34.0-67.9) % Lymph % (Auto) (21.8-53.1) % Mellette % (Auto) (5.3-12.2) % Eos % (Auto) (0.8-7.0) Baso % (Auto) (0.1-1.2) % Neut # (Auto) (1.78-5.38) K/mm3 Lymph # (Auto) (1.32-3.57) K/mm3 Mellette # (Auto) (0.30-0.82) K/mm3 Eos # (Auto) (0.04-0.54) K/mm3 Baso # (Auto) (0.01-0.08) K/mm3 Manual Slide Review D-Dimer, Quantitative (0.19-0.50) mg/L Sodium 135 L (136-145) mEq/L Potassium 4.1 (3.5-5.1) mEq/L Chloride 101 (98-107) mEq/L Carbon Dioxide 22 (21-32) mEq/L Anion Gap 16.1 H (5-15) BUN 3 L (7-18) mg/dL Creatinine 0.8 (0.7-1.3) mg/dL Est Cr Clr Drug Dosing 110.56 mL/min Estimated GFR (MDRD) > 60 (>60) mL/min BUN/Creatinine Ratio 3.8 L (14-18) Glucose 194 H (74-106) mg/dL POC Glucose (70-99) mg/dL Lactic Acid 6.3 H* (0.4-2.0) mmol/L Calcium 7.7 L (8.5-10.1) mg/dL Phosphorus 2.2 L (2.6-4.7) mg/dL Magnesium 2.0 (1.8-2.4) mg/dl Ferritin (26-388) ng/ml Total Bilirubin 0.5 (0.2-1.0) mg/dL AST 45 H (15-37) U/L ALT 67 H (16-63) U/L Alkaline Phosphatase 131 H (46-116) U/L C-Reactive Protein 19.1 H* (<1.0) mg/dL Total Protein 5.8 L (6.4-8.2) g/dl Albumin 2.0 L (3.4-5.0) g/dl Globulin 3.8 gm/dL Albumin/Globulin Ratio 0.5 L (1-2) Vitamin D 25-Hydroxy (30.0-100.0) ng/ml 01/20/21 01/20/21 01/20/21 Range/Units 05:03 06:12 07:00 WBC (4.23-9.07) K/mm3 RBC (4.63-6.08) M/mm3 Hgb (13.7-17.5) gm/dl Hct (40.1-51.0) % MCV (79.0-92.2) fl MCH (25.7-32.2) pg MCHC (32.2-35.5) g/dl RDW Std Deviation (35.1-43.9) fL Plt Count (163-337) K/mm3 MPV (9.4-12.3) fl Neut % (Auto) (34.0-67.9) % Lymph % (Auto) (21.8-53.1) % Mel[place] % (Auto) (5.3-12.2) % Eos % (Auto) (0.8-7.0) Baso % (Auto) (0.1-1.2) % Neut # (Auto) (1.78-5.38) K/mm3 Lymph # (Auto) (1.32-3.57) K/mm3 Mellette # (Auto) (0.30-0.82) K/mm3 Eos # (Auto) (0.04-0.54) K/mm3 Baso # (Auto) (0.01-0.08) K/mm3 Manual Slide Review D-Dimer, Quantitative (0.19-0.50) mg/L Sodium (136-145) mEq/L Potassium (3.5-5.1) mEq/L Chloride (98-107) mEq/L Carbon Dioxide (21-32) mEq/L Anion Gap (5-15) BUN (7-18) mg/dL Creatinine (0.7-1.3) mg/dL Est Cr Clr Drug Dosing mL/min Estimated GFR (MDRD) (>60) mL/min BUN/Creatinine Ratio (14-18) Glucose (74-106) mg/dL POC Glucose 176 H 224 H 200 H (70-99) mg/dL Lactic Acid (0.4-2.0) mmol/L Calcium (8.5-10.1) mg/dL Phosphorus (2.6-4.7) mg/dL Magnesium (1.8-2.4) mg/dl Ferritin (26-388) ng/ml Total Bilirubin (0.2-1.0) mg/dL AST (15-37) U/L ALT (16-63) U/L Alkaline Phosphatase (46-116) U/L C-Reactive Protein (<1.0) mg/dL Total Protein (6.4-8.2) g/dl Albumin (3.4-5.0) g/dl Globulin gm/dL Albumin/Globulin Ratio (1-2) Vitamin D 25-Hydroxy (30.0-100.0) ng/ml 01/20/21 Range/Units 07:59 WBC (4.23-9.07) K/mm3 RBC (4.63-6.08) M/mm3 Hgb (13.7-17.5) gm/dl Hct (40.1-51.0) % MCV (79.0-92.2) fl MCH (25.7-32.2) pg MCHC (32.2-35.5) g/dl RDW Std Deviation (35.1-43.9) fL Plt Count (163-337) K/mm3 MPV (9.4-12.3) fl Neut % (Auto) (34.0-67.9) % Lymph % (Auto) (21.8-53.1) % Mel[place] % (Auto) (5.3-12.2) % Eos % (Auto) (0.8-7.0) Baso % (Auto) (0.1-1.2) % Neut # (Auto) (1.78-5.38) K/mm3 Lymph # (Auto) (1.32-3.57) K/mm3 [place] # (Auto) (0.30-0.82) K/mm3 Eos # (Auto) (0.04-0.54) K/mm3 Baso # (Auto) (0.01-0.08) K/mm3 Manual Slide Review D-Dimer, Quantitative (0.19-0.50) mg/L Sodium (136-145) mEq/L Potassium (3.5-5.1) mEq/L Chloride (98-107) mEq/L Carbon Dioxide (21-32) mEq/L Anion Gap (5-15) BUN (7-18) mg/dL Creatinine (0.7-1.3) mg/dL Est Cr Clr Drug Dosing mL/min Estimated GFR (MDRD) (>60) mL/min BUN/Creatinine Ratio (14-18) Glucose (74-106) mg/dL POC Glucose 168 H (70-99) mg/dL Lactic Acid (0.4-2.0) mmol/L Calcium (8.5-10.1) mg/dL Phosphorus (2.6-4.7) mg/dL Magnesium (1.8-2.4) mg/dl Ferritin (26-388) ng/ml Total Bilirubin (0.2-1.0) mg/dL AST (15-37) U/L ALT (16-63) U/L Alkaline Phosphatase (46-116) U/L C-Reactive Protein (<1.0) mg/dL Total Protein (6.4-8.2) g/dl Albumin (3.4-5.0) g/dl Globulin gm/dL Albumin/Globulin Ratio (1-2) Vitamin D 25-Hydroxy (30.0-100.0) ng/ml Rosalio Results Last 24 Hours: Microbiology 01/16/21 22:00 Aerobic Blood Culture - Preliminary Blood NO GROWTH AFTER 3 DAYS Anaerobic Blood Culture - Preliminary NO GROWTH AFTER 3 DAYS 01/16/21 21:58 Aerobic Blood Culture - Preliminary Blood NO GROWTH AFTER 3 DAYS Anaerobic Blood Culture - Preliminary NO GROWTH AFTER 3 DAYS 01/17/21 21:36 Aerobic Blood Culture - Preliminary Blood - Venous - Lab Draw NO GROWTH AFTER 2 DAYS Anaerobic Blood Culture - Preliminary NO GROWTH AFTER 2 DAYS 01/17/21 21:32 Aerobic Blood Culture - Preliminary Blood - Venous NO GROWTH AFTER 2 DAYS Anaerobic Blood Culture - Preliminary NO GROWTH AFTER 2 DAYS Med Orders - Current: Current Medications Acetaminophen (Acetaminophen 325 Mg Tab) 650 mg PO Q6H PRN PRN Reason: Pain (Mild 1-3)/fever Last Admin: 01/17/21 19:49 Dose: 650 mg Documented by: Aspirin (Aspirin 81 Mg Tab.Chew) 81 mg PO DAILY [facility] Last Admin: 01/20/21 08:39 Dose: 81 mg Documented by: Dexamethasone (Dexamethasone 4 Mg Tab) 6 mg PO DAILY [facility] Last Admin: 01/20/21 08:40 Dose: 6 mg Documented by: Enoxaparin Sodium (Enoxaparin 40 Mg/0.4 Ml Syringe) 40 mg SUBCUT BID [facility] Last Admin: 01/20/21 08:39 Dose: 40 mg Documented by: Hydralazine HCl (Hydralazine 20 Mg/Ml Sdv) 10 mg IVPUSH Q4H PRN PRN Reason: Hypertension Insulin Human Regular 100 unit (/ Sodium Chloride) 100 mls @ 1.1 mls/hr IV TITRATE [facility]; Protocol Last Titration: 01/19/21 19:20 Dose: 0.04 units/kg/hr, 2 mls/hr Documented by: Piperacillin Sod/Tazobactam (Sod 4.5 gm/ Sodium Chloride) 100 mls @ 25 mls/hr IV Q8HR [facility] Last Admin: 01/20/21 05:15 Dose: 25 mls/hr Documented by: Azithromycin 500 mg/ Sodium (Chloride) 250 mls @ 250 mls/hr IV BEDTIME [facility] Last Admin: 01/19/21 20:12 Dose: 250 mls/hr Documented by: Sodium Chloride 77 meq/Potassium Chloride 20 meq/Dextrose/Water 1,029.25 mls @ 80 mls/hr IV Q12H [facility] Last Admin: 01/20/21 08:40 Dose: 80 mls/hr Documented by: Lorazepam (Lorazepam 2 Mg/Ml Sdv) 0.5 mg IVPUSH Q4H PRN PRN Reason: Agitation Metoprolol Tartrate (Metoprolol Tartrate 5 Mg/5 Ml Sdv) 2.5 mg IVPUSH Q10M PRN PRN Reason: Tachycardia Last Admin: 01/18/21 17:01 Dose: 2.5 mg Documented by: Metoprolol Tartrate (Metoprolol Tartrate 25 Mg Tab) 12.5 mg PO Q12HR [facility] Last Admin: 01/20/21 08:39 Dose: 12.5 mg Documented by: Ondansetron HCl (Ondansetron 4 Mg/2 Ml Sdv) 4 mg IV Q6H PRN PRN Reason: Nausea/Vomiting Last Admin: 01/17/21 15:35 Dose: 4 mg Documented by: Pantoprazole Sodium (Pantoprazole 40 Mg Vial) 40 mg IVPUSH DAILY [facility] Last Admin: 01/20/21 08:39 Dose: 40 mg Documented by: Sodium Chloride (Sodium Chloride 0.9% 10 Ml Syringe) 10 ml FLUSH ASDIRECTED PRN PRN Reason: Keep Vein Open Last Admin: 01/16/21 22:06 Dose: 10 ml Documented by: Discontinued Medications Diltiazem HCl (Diltiazem 50 Mg/10 Ml Sdv) 2.5 mg IVPUSH Q1H PRN PRN Reason: HR greater than 110 Last Admin: 01/17/21 16:38 Dose: 2.5 mg Documented by: Diltiazem HCl (Diltiazem Ir 30 Mg Tab) 15 mg PO Q8H PRN PRN Reason: Tachycardia Last Admin: 01/17/21 12:29 Dose: 15 mg Documented by: Diltiazem HCl (Diltiazem 50 Mg/10 Ml Sdv) 5 mg IVPUSH ONETIME ONE Stop: 01/17/21 17:42 Last Admin: 01/17/21 17:49 Dose: 5 mg Documented by: Enoxaparin Sodium (Enoxaparin 40 Mg/0.4 Ml Syringe) 40 mg SUBCUT DAILY [facility] Last Admin: 01/17/21 07:55 Dose: Not Given Documented by: Enoxaparin Sodium (Enoxaparin 40 Mg/0.4 Ml Syringe) 40 mg SUBCUT BEDTIME [facility] Last Admin: 01/18/21 20:35 Dose: Not Given Documented by: Enoxaparin Sodium (Enoxaparin 40 Mg/0.4 Ml Syringe) 40 mg SUBCUT ONETIME ONE Stop: 01/19/21 14:11 Last Admin: 01/19/21 14:32 Dose: Not Given Documented by: Enoxaparin Sodium (Enoxaparin 40 Mg/0.4 Ml Syringe) 40 mg SUBCUT ONETIME ONE Stop: 01/19/21 14:20 Last Admin: 01/19/21 14:36 Dose: 40 mg Documented by: Sodium Chloride (Normal Saline) 1,000 mls @ 999 mls/hr IV ONETIME [facility] Last Admin: 01/16/21 22:05 Dose: 999 mls/hr Documented by: Lactated Ringer's (Ringers, Lactated) 1,000 mls @ 999 mls/hr IV .BOLUS ONE Stop: 01/16/21 22:43 Last Admin: 01/16/21 22:05 Dose: 999 mls/hr Documented by: Insulin Human Regular 100 unit (/ Sodium Chloride) 100 mls @ 5 mls/hr IV TITRATE [facility]; Protocol Last Titration: 01/17/21 03:37 Dose: 2.3 units/hr, 2.3 mls/hr Documented by: Sodium Chloride (Normal Saline) Confirm Administered Dose 100 mls @ as directed .ROUTE .STK-MED ONE Stop: 01/16/21 22:07 Last Admin: 01/17/21 06:02 Dose: Not Given Documented by: Lactated Ringer's (Ringers, Lactated) 1,000 mls @ 500 mls/hr IV NOW STA Stop: 01/17/21 01:04 Last Admin: 01/16/21 23:05 Dose: 500 mls/hr Documented by: Lactated Ringer's (Ringers, Lactated) 1,000 mls @ 500 mls/hr IV .BOLUS ONE Stop: 01/17/21 01:04 Last Admin: 01/16/21 23:05 Dose: 500 mls/hr Documented by: Insulin Human Regular 100 unit (/ Sodium Chloride) 100 mls @ 5.502 mls/hr IV TITRATE [facility]INCE; Protocol Potassium Chloride/Sodium Chloride (1/2 Ns With 20 Meq Kcl) 1,000 mls @ 125 mls/hr IV ASDIRECTED [facility] Last Infusion: 01/17/21 04:51 Dose: 0 mls/hr Documented by: Potassium Chloride/Dextrose/Sod Cl (D5 1/2 Ns W/ 20 Meq/L Kcl) 1,000 mls @ 80 mls/hr IV ASDIRECTED [facility] Stop: 01/19/21 19:30 Last Admin: 01/19/21 17:58 Dose: 80 mls/hr Documented by: Sodium Chloride (Normal Saline) 500 mls @ 999 mls/hr IV .BOLUS ONE Stop: 01/17/21 07:39 Last Admin: 01/17/21 07:09 Dose: 999 mls/hr Documented by: Sodium Chloride (Normal Saline) Confirm Administered Dose 1,000 mls @ as directed .ROUTE .STK-MED ONE Stop: 01/17/21 07:12 Last Admin: 01/17/21 07:52 Dose: Not Given Documented by: Sodium Chloride (Normal Saline) 500 mls @ 999 mls/hr IV .BOLUS ONE Stop: 01/17/21 10:31 Last Admin: 01/17/21 10:12 Dose: 999 mls/hr Documented by: Sodium Chloride (Normal Saline) 500 mls @ 999 mls/hr IV .BOLUS ONE Stop: 01/17/21 13:49 Last Admin: 01/17/21 13:27 Dose: 999 mls/hr Documented by: Piperacillin Sod/Tazobactam (Sod 4.5 gm/ Sodium Chloride) 100 mls @ 200 mls/hr IV ONETIME ONE Stop: 01/17/21 21:44 Last Admin: 01/17/21 21:38 Dose: 200 mls/hr Documented by: Azithromycin 400 mg/ Sodium (Chloride) 250 mls @ 250 mls/hr IV Q24H [facility] Potassium Phosphate 30 mmole/ (Sodium Chloride) 510 mls @ 102 mls/hr IV ONETIME ONE Stop: 01/19/21 14:29 Magnesium Sulfate 4 gm/ Premix 50 mls @ 12.5 mls/hr IV ONETIME ONE Stop: 01/19/21 17:59 Potassium Chloride 10 meq/ (Premix) 100 mls @ 100 mls/hr IV Q1H [facility] Stop: 01/19/21 11:29 Last Admin: 01/19/21 11:12 Dose: 100 mls/hr Documented by: Potassium Phosphate 30 mmole/ (Sodium Chloride) 510 mls @ 102 mls/hr IV ONETIME ONE Stop: 01/19/21 16:59 Last Admin: 01/19/21 12:41 Dose: 102 mls/hr Documented by: Magnesium Sulfate 4 gm/ Premix 50 mls @ 12.5 mls/hr IV ONETIME ONE Stop: 01/19/21 20:59 Last Admin: 01/19/21 18:04 Dose: 12.5 mls/hr Documented by: Insulin Human Regular (Insulin Regular, Human 100 Units/Ml 3 Ml Vial) 5 unit IVPUSH ONETIME ONE; Protocol Stop: 01/16/21 21:44 Last Admin: 01/16/21 21:49 Dose: 5 unit Documented by: Metoprolol Tartrate (Metoprolol Tartrate 5 Mg/5 Ml Sdv) 5 mg IVPUSH ONETIME ONE Stop: 01/17/21 18:34 Last Admin: 01/17/21 18:41 Dose: 5 mg Documented by: Morphine Sulfate (Morphine 2 Mg/Ml Syringe) 2 mg IVPUSH Q4H PRN PRN Reason: Pain (severe 7-10) Stop: 01/18/21 00:35 Sodium Bicarbonate (Sodium Bicarbonate 8.4% 50 Meq/50 Ml Syringe) 50 meq IVPUSH ONETIME ONE Stop: 01/16/21 22:16 Last Admin: 01/16/21 22:20 Dose: 50 meq Documented by: - Exam General: Alert, Oriented HEENT: Pupils Equal, Pupils Reactive Neck: Supple Lungs: Clear to Auscultation, Normal Respiratory Effort Cardiovascular: Regular Rate, Regular Rhythm GI/Abdominal Exam: Normal Bowel Sounds, Soft, No Distention. No: Rebound, Tender Extremities: Normal Inspection, Non-Tender, No Pedal Edema Skin: Warm, Dry Neurological: Normal Speech, Other (GCS 15,) Psy/Mental Status: Alert, Normal Affect, Normal Mood - Patient Data Lab Results Last 24 hrs: Laboratory Results - last 24 hr 01/19/21 01/19/21 01/19/21 Range/Units 08:22 08:22 08:22 WBC (4.23-9.07) K/mm3 RBC (4.63-6.08) M/mm3 Hgb (13.7-17.5) gm/dl Hct (40.1-51.0) % MCV (79.0-92.2) fl MCH (25.7-32.2) pg MCHC (32.2-35.5) g/dl RDW Std Deviation (35.1-43.9) fL Plt Count (163-337) K/mm3 MPV (9.4-12.3) fl Neut % (Auto) (34.0-67.9) % Lymph % (Auto) (21.8-53.1) % Mellette % (Auto) (5.3-12.2) % Eos % (Auto) (0.8-7.0) Baso % (Auto) (0.1-1.2) % Neut # (Auto) (1.78-5.38) K/mm3 Lymph # (Auto) (1.32-3.57) K/mm3 Mellette # (Auto) (0.30-0.82) K/mm3 Eos # (Auto) (0.04-0.54) K/mm3 Baso # (Auto) (0.01-0.08) K/mm3 Manual Slide Review D-Dimer, Quantitative (0.19-0.50) mg/L Sodium 138 (136-145) mEq/L Potassium 3.4 L (3.5-5.1) mEq/L Chloride 105 (98-107) mEq/L Carbon Dioxide 23 (21-32) mEq/L Anion Gap 13.4 (5-15) BUN 4 L (7-18) mg/dL Creatinine 0.8 (0.7-1.3) mg/dL Est Cr Clr Drug Dosing 110.56 mL/min Estimated GFR (MDRD) > 60 (>60) mL/min BUN/Creatinine Ratio 5.0 L (14-18) Glucose 138 H (74-106) mg/dL POC Glucose (70-99) mg/dL Lactic Acid 4.2 H* (0.4-2.0) mmol/L Calcium 7.6 L (8.5-10.1) mg/dL Phosphorus (2.6-4.7) mg/dL Magnesium (1.8-2.4) mg/dl Ferritin (26-388) ng/ml Total Bilirubin (0.2-1.0) mg/dL AST (15-37) U/L ALT (16-63) U/L Alkaline Phosphatase (46-116) U/L C-Reactive Protein 23.2 H* (<1.0) mg/dL Total Protein (6.4-8.2) g/dl Albumin (3.4-5.0) g/dl Globulin gm/dL Albumin/Globulin Ratio (1-2) Vitamin D 25-Hydroxy 12.1 L (30.0-100.0) ng/ml 01/19/21 01/19/21 01/19/21 Range/Units 08:22 09:01 10:04 WBC (4.23-9.07) K/mm3 RBC (4.63-6.08) M/mm3 Hgb (13.7-17.5) gm/dl Hct (40.1-51.0) % MCV (79.0-92.2) fl MCH (25.7-32.2) pg MCHC (32.2-35.5) g/dl RDW Std Deviation (35.1-43.9) fL Plt Count (163-337) K/mm3 MPV (9.4-12.3) fl Neut % (Auto) (34.0-67.9) % Lymph % (Auto) (21.8-53.1) % Mellette % (Auto) (5.3-12.2) % Eos % (Auto) (0.8-7.0) Baso % (Auto) (0.1-1.2) % Neut # (Auto) (1.78-5.38) K/mm3 Lymph # (Auto) (1.32-3.57) K/mm3 Mellette # (Auto) (0.30-0.82) K/mm3 Eos # (Auto) (0.04-0.54) K/mm3 Baso # (Auto) (0.01-0.08) K/mm3 Manual Slide Review D-Dimer, Quantitative (0.19-0.50) mg/L Sodium (136-145) mEq/L Potassium (3.5-5.1) mEq/L Chloride (98-107) mEq/L Carbon Dioxide (21-32) mEq/L Anion Gap (5-15) BUN (7-18) mg/dL Creatinine (0.7-1.3) mg/dL Est Cr Clr Drug Dosing mL/min Estimated GFR (MDRD) (>60) mL/min BUN/Creatinine Ratio (14-18) Glucose (74-106) mg/dL POC Glucose 199 H 167 H (70-99) mg/dL Lactic Acid (0.4-2.0) mmol/L Calcium (8.5-10.1) mg/dL Phosphorus (2.6-4.7) mg/dL Magnesium (1.8-2.4) mg/dl Ferritin 292 (26-388) ng/ml Total Bilirubin (0.2-1.0) mg/dL AST (15-37) U/L ALT (16-63) U/L Alkaline Phosphatase (46-116) U/L C-Reactive Protein (<1.0) mg/dL Total Protein (6.4-8.2) g/dl Albumin (3.4-5.0) g/dl Globulin gm/dL Albumin/Globulin Ratio (1-2) Vitamin D 25-Hydroxy (30.0-100.0) ng/ml 01/19/21 01/19/21 01/19/21 Range/Units 11:03 12:04 12:35 WBC (4.23-9.07) K/mm3 RBC (4.63-6.08) M/mm3 Hgb (13.7-17.5) gm/dl Hct (40.1-51.0) % MCV (79.0-92.2) fl MCH (25.7-32.2) pg MCHC (32.2-35.5) g/dl RDW Std Deviation (35.1-43.9) fL Plt Count (163-337) K/mm3 MPV (9.4-12.3) fl Neut % (Auto) (34.0-67.9) % Lymph % (Auto) (21.8-53.1) % Mellette % (Auto) (5.3-12.2) % Eos % (Auto) (0.8-7.0) Baso % (Auto) (0.1-1.2) % Neut # (Auto) (1.78-5.38) K/mm3 Lymph # (Auto) (1.32-3.57) K/mm3 Mellette # (Auto) (0.30-0.82) K/mm3 Eos # (Auto) (0.04-0.54) K/mm3 Baso # (Auto) (0.01-0.08) K/mm3 Manual Slide Review D-Dimer, Quantitative (0.19-0.50) mg/L Sodium 135 L (136-145) mEq/L Potassium 4.0 (3.5-5.1) mEq/L Chloride 103 (98-107) mEq/L Carbon Dioxide 21 (21-32) mEq/L Anion Gap 15.0 (5-15) BUN 5 L (7-18) mg/dL Creatinine 0.8 (0.7-1.3) mg/dL Est Cr Clr Drug Dosing 110.56 mL/min Estimated GFR (MDRD) > 60 (>60) mL/min BUN/Creatinine Ratio 6.3 L (14-18) Glucose 227 H (74-106) mg/dL POC Glucose 181 H 220 H (70-99) mg/dL Lactic Acid (0.4-2.0) mmol/L Calcium 7.3 L (8.5-10.1) mg/dL Phosphorus (2.6-4.7) mg/dL Magnesium (1.8-2.4) mg/dl Ferritin (26-388) ng/ml Total Bilirubin (0.2-1.0) mg/dL AST (15-37) U/L ALT (16-63) U/L Alkaline Phosphatase (46-116) U/L C-Reactive Protein (<1.0) mg/dL Total Protein (6.4-8.2) g/dl Albumin (3.4-5.0) g/dl Globulin gm/dL Albumin/Globulin Ratio (1-2) Vitamin D 25-Hydroxy (30.0-100.0) ng/ml 01/19/21 01/19/21 01/19/21 Range/Units 12:37 13:02 13:58 WBC (4.23-9.07) K/mm3 RBC (4.63-6.08) M/mm3 Hgb (13.7-17.5) gm/dl Hct (40.1-51.0) % MCV (79.0-92.2) fl MCH (25.7-32.2) pg MCHC (32.2-35.5) g/dl RDW Std Deviation (35.1-43.9) fL Plt Count (163-337) K/mm3 MPV (9.4-12.3) fl Neut % (Auto) (34.0-67.9) % Lymph % (Auto) (21.8-53.1) % Mellette % (Auto) (5.3-12.2) % Eos % (Auto) (0.8-7.0) Baso % (Auto) (0.1-1.2) % Neut # (Auto) (1.78-5.38) K/mm3 Lymph # (Auto) (1.32-3.57) K/mm3 Mellette # (Auto) (0.30-0.82) K/mm3 Eos # (Auto) (0.04-0.54) K/mm3 Baso # (Auto) (0.01-0.08) K/mm3 Manual Slide Review D-Dimer, Quantitative 1.04 H (0.19-0.50) mg/L Sodium (136-145) mEq/L Potassium (3.5-5.1) mEq/L Chloride (98-107) mEq/L Carbon Dioxide (21-32) mEq/L Anion Gap (5-15) BUN (7-18) mg/dL Creatinine (0.7-1.3) mg/dL Est Cr Clr Drug Dosing mL/min Estimated GFR (MDRD) (>60) mL/min BUN/Creatinine Ratio (14-18) Glucose (74-106) mg/dL POC Glucose 191 H 190 H (70-99) mg/dL Lactic Acid (0.4-2.0) mmol/L Calcium (8.5-10.1) mg/dL Phosphorus (2.6-4.7) mg/dL Magnesium (1.8-2.4) mg/dl Ferritin (26-388) ng/ml Total Bilirubin (0.2-1.0) mg/dL AST (15-37) U/L ALT (16-63) U/L Alkaline Phosphatase (46-116) U/L C-Reactive Protein (<1.0) mg/dL Total Protein (6.4-8.2) g/dl Albumin (3.4-5.0) g/dl Globulin gm/dL Albumin/Globulin Ratio (1-2) Vitamin D 25-Hydroxy (30.0-100.0) ng/ml 01/19/21 01/19/21 01/19/21 Range/Units 14:59 16:00 16:32 WBC (4.23-9.07) K/mm3 RBC (4.63-6.08) M/mm3 Hgb (13.7-17.5) gm/dl Hct (40.1-51.0) % MCV (79.0-92.2) fl MCH (25.7-32.2) pg MCHC (32.2-35.5) g/dl RDW Std Deviation (35.1-43.9) fL Plt Count (163-337) K/mm3 MPV (9.4-12.3) fl Neut % (Auto) (34.0-67.9) % Lymph % (Auto) (21.8-53.1) % Mellette % (Auto) (5.3-12.2) % Eos % (Auto) (0.8-7.0) Baso % (Auto) (0.1-1.2) % Neut # (Auto) (1.78-5.38) K/mm3 Lymph # (Auto) (1.32-3.57) K/mm3 Mellette # (Auto) (0.30-0.82) K/mm3 Eos # (Auto) (0.04-0.54) K/mm3 Baso # (Auto) (0.01-0.08) K/mm3 Manual Slide Review D-Dimer, Quantitative (0.19-0.50) mg/L Sodium 135 L (136-145) mEq/L Potassium 4.3 (3.5-5.1) mEq/L Chloride 102 (98-107) mEq/L Carbon Dioxide 21 (21-32) mEq/L Anion Gap 16.3 H (5-15) BUN 4 L (7-18) mg/dL Creatinine 0.8 (0.7-1.3) mg/dL Est Cr Clr Drug Dosing 110.56 mL/min Estimated GFR (MDRD) > 60 (>60) mL/min BUN/Creatinine Ratio 5.0 L (14-18) Glucose 237 H (74-106) mg/dL POC Glucose 204 H 233 H (70-99) mg/dL Lactic Acid (0.4-2.0) mmol/L Calcium 7.2 L (8.5-10.1) mg/dL Phosphorus (2.6-4.7) mg/dL Magnesium (1.8-2.4) mg/dl Ferritin (26-388) ng/ml Total Bilirubin (0.2-1.0) mg/dL AST (15-37) U/L ALT (16-63) U/L Alkaline Phosphatase (46-116) U/L C-Reactive Protein (<1.0) mg/dL Total Protein (6.4-8.2) g/dl Albumin (3.4-5.0) g/dl Globulin gm/dL Albumin/Globulin Ratio (1-2) Vitamin D 25-Hydroxy (30.0-100.0) ng/ml 01/19/21 01/19/21 01/19/21 Range/Units 16:32 17:01 18:02 WBC (4.23-9.07) K/mm3 RBC (4.63-6.08) M/mm3 Hgb (13.7-17.5) gm/dl Hct (40.1-51.0) % MCV (79.0-92.2) fl MCH (25.7-32.2) pg MCHC (32.2-35.5) g/dl RDW Std Deviation (35.1-43.9) fL Plt Count (163-337) K/mm3 MPV (9.4-12.3) fl Neut % (Auto) (34.0-67.9) % Lymph % (Auto) (21.8-53.1) % Mellette % (Auto) (5.3-12.2) % Eos % (Auto) (0.8-7.0) Baso % (Auto) (0.1-1.2) % Neut # (Auto) (1.78-5.38) K/mm3 Lymph # (Auto) (1.32-3.57) K/mm3 Mellette # (Auto) (0.30-0.82) K/mm3 Eos # (Auto) (0.04-0.54) K/mm3 Baso # (Auto) (0.01-0.08) K/mm3 Manual Slide Review D-Dimer, Quantitative (0.19-0.50) mg/L Sodium (136-145) mEq/L Potassium (3.5-5.1) mEq/L Chloride (98-107) mEq/L Carbon Dioxide (21-32) mEq/L Anion Gap (5-15) BUN (7-18) mg/dL Creatinine (0.7-1.3) mg/dL Est Cr Clr Drug Dosing mL/min Estimated GFR (MDRD) (>60) mL/min BUN/Creatinine Ratio (14-18) Glucose (74-106) mg/dL POC Glucose 192 H 175 H (70-99) mg/dL Lactic Acid 3.9 H* (0.4-2.0) mmol/L Calcium (8.5-10.1) mg/dL Phosphorus (2.6-4.7) mg/dL Magnesium (1.8-2.4) mg/dl Ferritin (26-388) ng/ml Total Bilirubin (0.2-1.0) mg/dL AST (15-37) U/L ALT (16-63) U/L Alkaline Phosphatase (46-116) U/L C-Reactive Protein (<1.0) mg/dL Total Protein (6.4-8.2) g/dl Albumin (3.4-5.0) g/dl Globulin gm/dL Albumin/Globulin Ratio (1-2) Vitamin D 25-Hydroxy (30.0-100.0) ng/ml 01/19/21 01/19/21 01/19/21 Range/Units 19:24 20:11 20:38 WBC (4.23-9.07) K/mm3 RBC (4.63-6.08) M/mm3 Hgb (13.7-17.5) gm/dl Hct (40.1-51.0) % MCV (79.0-92.2) fl MCH (25.7-32.2) pg MCHC (32.2-35.5) g/dl RDW Std Deviation (35.1-43.9) fL Plt Count (163-337) K/mm3 MPV (9.4-12.3) fl Neut % (Auto) (34.0-67.9) % Lymph % (Auto) (21.8-53.1) % Mellette % (Auto) (5.3-12.2) % Eos % (Auto) (0.8-7.0) Baso % (Auto) (0.1-1.2) % Neut # (Auto) (1.78-5.38) K/mm3 Lymph # (Auto) (1.32-3.57) K/mm3 Mellette # (Auto) (0.30-0.82) K/mm3 Eos # (Auto) (0.04-0.54) K/mm3 Baso # (Auto) (0.01-0.08) K/mm3 Manual Slide Review D-Dimer, Quantitative (0.19-0.50) mg/L Sodium 135 L (136-145) mEq/L Potassium 4.4 (3.5-5.1) mEq/L Chloride 102 (98-107) mEq/L Carbon Dioxide 21 (21-32) mEq/L Anion Gap 16.4 H (5-15) BUN 4 L (7-18) mg/dL Creatinine 0.7 (0.7-1.3) mg/dL Est Cr Clr Drug Dosing 126.36 mL/min Estimated GFR (MDRD) > 60 (>60) mL/min BUN/Creatinine Ratio 5.7 L (14-18) Glucose 238 H (74-106) mg/dL POC Glucose 188 H 200 H (70-99) mg/dL Lactic Acid (0.4-2.0) mmol/L Calcium 7.5 L (8.5-10.1) mg/dL Phosphorus (2.6-4.7) mg/dL Magnesium (1.8-2.4) mg/dl Ferritin (26-388) ng/ml Total Bilirubin (0.2-1.0) mg/dL AST (15-37) U/L ALT (16-63) U/L Alkaline Phosphatase (46-116) U/L C-Reactive Protein (<1.0) mg/dL Total Protein (6.4-8.2) g/dl Albumin (3.4-5.0) g/dl Globulin gm/dL Albumin/Globulin Ratio (1-2) Vitamin D 25-Hydroxy (30.0-100.0) ng/ml 01/19/21 01/19/21 01/19/21 Range/Units 20:38 21:08 21:58 WBC (4.23-9.07) K/mm3 RBC (4.63-6.08) M/mm3 Hgb (13.7-17.5) gm/dl Hct (40.1-51.0) % MCV (79.0-92.2) fl MCH (25.7-32.2) pg MCHC (32.2-35.5) g/dl RDW Std Deviation (35.1-43.9) fL Plt Count (163-337) K/mm3 MPV (9.4-12.3) fl Neut % (Auto) (34.0-67.9) % Lymph % (Auto) (21.8-53.1) % Mellette % (Auto) (5.3-12.2) % Eos % (Auto) (0.8-7.0) Baso % (Auto) (0.1-1.2) % Neut # (Auto) (1.78-5.38) K/mm3 Lymph # (Auto) (1.32-3.57) K/mm3 [place] # (Auto) (0.30-0.82) K/mm3 Eos # (Auto) (0.04-0.54) K/mm3 Baso # (Auto) (0.01-0.08) K/mm3 Manual Slide Review D-Dimer, Quantitative (0.19-0.50) mg/L Sodium (136-145) mEq/L Potassium (3.5-5.1) mEq/L Chloride (98-107) mEq/L Carbon Dioxide (21-32) mEq/L Anion Gap (5-15) BUN (7-18) mg/dL Creatinine (0.7-1.3) mg/dL Est Cr Clr Drug Dosing mL/min Estimated GFR (MDRD) (>60) mL/min BUN/Creatinine Ratio (14-18) Glucose (74-106) mg/dL POC Glucose 239 H 234 H (70-99) mg/dL Lactic Acid 4.3 H* (0.4-2.0) mmol/L Calcium (8.5-10.1) mg/dL Phosphorus (2.6-4.7) mg/dL Magnesium (1.8-2.4) mg/dl Ferritin (26-388) ng/ml Total Bilirubin (0.2-1.0) mg/dL AST (15-37) U/L ALT (16-63) U/L Alkaline Phosphatase (46-116) U/L C-Reactive Protein (<1.0) mg/dL Total Protein (6.4-8.2) g/dl Albumin (3.4-5.0) g/dl Globulin gm/dL Albumin/Globulin Ratio (1-2) Vitamin D 25-Hydroxy (30.0-100.0) ng/ml 01/19/21 01/20/21 01/20/21 Range/Units 22:57 00:00 00:42 WBC (4.23-9.07) K/mm3 RBC (4.63-6.08) M/mm3 Hgb (13.7-17.5) gm/dl Hct (40.1-51.0) % MCV (79.0-92.2) fl MCH (25.7-32.2) pg MCHC (32.2-35.5) g/dl RDW Std Deviation (35.1-43.9) fL Plt Count (163-337) K/mm3 MPV (9.4-12.3) fl Neut % (Auto) (34.0-67.9) % Lymph % (Auto) (21.8-53.1) % Mel[place] % (Auto) (5.3-12.2) % Eos % (Auto) (0.8-7.0) Baso % (Auto) (0.1-1.2) % Neut # (Auto) (1.78-5.38) K/mm3 Lymph # (Auto) (1.32-3.57) K/mm3 [place] # (Auto) (0.30-0.82) K/mm3 Eos # (Auto) (0.04-0.54) K/mm3 Baso # (Auto) (0.01-0.08) K/mm3 Manual Slide Review D-Dimer, Quantitative (0.19-0.50) mg/L Sodium 136 (136-145) mEq/L Potassium 4.0 (3.5-5.1) mEq/L Chloride 102 (98-107) mEq/L Carbon Dioxide 19 L (21-32) mEq/L Anion Gap 19.0 H (5-15) BUN 4 L (7-18) mg/dL Creatinine 0.9 (0.7-1.3) mg/dL Est Cr Clr Drug Dosing 98.28 mL/min Estimated GFR (MDRD) > 60 (>60) mL/min BUN/Creatinine Ratio 4.4 L (14-18) Glucose 220 H (74-106) mg/dL POC Glucose 231 H 195 H (70-99) mg/dL Lactic Acid (0.4-2.0) mmol/L Calcium 8.0 L (8.5-10.1) mg/dL Phosphorus (2.6-4.7) mg/dL Magnesium (1.8-2.4) mg/dl Ferritin (26-388) ng/ml Total Bilirubin (0.2-1.0) mg/dL AST (15-37) U/L ALT (16-63) U/L Alkaline Phosphatase (46-116) U/L C-Reactive Protein (<1.0) mg/dL Total Protein (6.4-8.2) g/dl Albumin (3.4-5.0) g/dl Globulin gm/dL Albumin/Globulin Ratio (1-2) Vitamin D 25-Hydroxy (30.0-100.0) ng/ml 01/20/21 01/20/21 01/20/21 Range/Units 00:42 01:17 02:03 WBC (4.23-9.07) K/mm3 RBC (4.63-6.08) M/mm3 Hgb (13.7-17.5) gm/dl Hct (40.1-51.0) % MCV (79.0-92.2) fl MCH (25.7-32.2) pg MCHC (32.2-35.5) g/dl RDW Std Deviation (35.1-43.9) fL Plt Count (163-337) K/mm3 MPV (9.4-12.3) fl Neut % (Auto) (34.0-67.9) % Lymph % (Auto) (21.8-53.1) % Mellette % (Auto) (5.3-12.2) % Eos % (Auto) (0.8-7.0) Baso % (Auto) (0.1-1.2) % Neut # (Auto) (1.78-5.38) K/mm3 Lymph # (Auto) (1.32-3.57) K/mm3 Mellette # (Auto) (0.30-0.82) K/mm3 Eos # (Auto) (0.04-0.54) K/mm3 Baso # (Auto) (0.01-0.08) K/mm3 Manual Slide Review D-Dimer, Quantitative (0.19-0.50) mg/L Sodium (136-145) mEq/L Potassium (3.5-5.1) mEq/L Chloride (98-107) mEq/L Carbon Dioxide (21-32) mEq/L Anion Gap (5-15) BUN (7-18) mg/dL Creatinine (0.7-1.3) mg/dL Est Cr Clr Drug Dosing mL/min Estimated GFR (MDRD) (>60) mL/min BUN/Creatinine Ratio (14-18) Glucose (74-106) mg/dL POC Glucose 194 H 186 H (70-99) mg/dL Lactic Acid 7.1 H* (0.4-2.0) mmol/L Calcium (8.5-10.1) mg/dL Phosphorus (2.6-4.7) mg/dL Magnesium (1.8-2.4) mg/dl Ferritin (26-388) ng/ml Total Bilirubin (0.2-1.0) mg/dL AST (15-37) U/L ALT (16-63) U/L Alkaline Phosphatase (46-116) U/L C-Reactive Protein (<1.0) mg/dL Total Protein (6.4-8.2) g/dl Albumin (3.4-5.0) g/dl Globulin gm/dL Albumin/Globulin Ratio (1-2) Vitamin D 25-Hydroxy (30.0-100.0) ng/ml 01/20/21 01/20/21 01/20/21 Range/Units 03:04 04:07 04:38 WBC 8.34 (4.23-9.07) K/mm3 RBC 3.17 L (4.63-6.08) M/mm3 Hgb 9.7 L (13.7-17.5) gm/dl Hct 27.9 L (40.1-51.0) % MCV 88.0 (79.0-92.2) fl MCH 30.6 (25.7-32.2) pg MCHC 34.8 (32.2-35.5) g/dl RDW Std Deviation 44.0 H (35.1-43.9) fL Plt Count 145 L (163-337) K/mm3 MPV 8.6 L (9.4-12.3) fl Neut % (Auto) 85.4 H (34.0-67.9) % Lymph % (Auto) 10.4 L (21.8-53.1) % Mellette % (Auto) 4.1 L (5.3-12.2) % Eos % (Auto) 0 L (0.8-7.0) Baso % (Auto) 0.0 L (0.1-1.2) % Neut # (Auto) 7.12 H (1.78-5.38) K/mm3 Lymph # (Auto) 0.87 L (1.32-3.57) K/mm3 Mellette # (Auto) 0.34 (0.30-0.82) K/mm3 Eos # (Auto) 0.00 L (0.04-0.54) K/mm3 Baso # (Auto) 0.00 L (0.01-0.08) K/mm3 Manual Slide Review Abnormal smear D-Dimer, Quantitative (0.19-0.50) mg/L Sodium (136-145) mEq/L Potassium (3.5-5.1) mEq/L Chloride (98-107) mEq/L Carbon Dioxide (21-32) mEq/L Anion Gap (5-15) BUN (7-18) mg/dL Creatinine (0.7-1.3) mg/dL Est Cr Clr Drug Dosing mL/min Estimated GFR (MDRD) (>60) mL/min BUN/Creatinine Ratio (14-18) Glucose (74-106) mg/dL POC Glucose 187 H 185 H (70-99) mg/dL Lactic Acid (0.4-2.0) mmol/L Calcium (8.5-10.1) mg/dL Phosphorus (2.6-4.7) mg/dL Magnesium (1.8-2.4) mg/dl Ferritin (26-388) ng/ml Total Bilirubin (0.2-1.0) mg/dL AST (15-37) U/L ALT (16-63) U/L Alkaline Phosphatase (46-116) U/L C-Reactive Protein (<1.0) mg/dL Total Protein (6.4-8.2) g/dl Albumin (3.4-5.0) g/dl Globulin gm/dL Albumin/Globulin Ratio (1-2) Vitamin D 25-Hydroxy (30.0-100.0) ng/ml 01/20/21 01/20/21 01/20/21 Range/Units 04:38 04:38 04:38 WBC (4.23-9.07) K/mm3 RBC (4.63-6.08) M/mm3 Hgb (13.7-17.5) gm/dl Hct (40.1-51.0) % MCV (79.0-92.2) fl MCH (25.7-32.2) pg MCHC (32.2-35.5) g/dl RDW Std Deviation (35.1-43.9) fL Plt Count (163-337) K/mm3 MPV (9.4-12.3) fl Neut % (Auto) (34.0-67.9) % Lymph % (Auto) (21.8-53.1) % Mellette % (Auto) (5.3-12.2) % Eos % (Auto) (0.8-7.0) Baso % (Auto) (0.1-1.2) % Neut # (Auto) (1.78-5.38) K/mm3 Lymph # (Auto) (1.32-3.57) K/mm3 Mel[place] # (Auto) (0.30-0.82) K/mm3 Eos # (Auto) (0.04-0.54) K/mm3 Baso # (Auto) (0.01-0.08) K/mm3 Manual Slide Review D-Dimer, Quantitative (0.19-0.50) mg/L Sodium 135 L (136-145) mEq/L Potassium 4.1 (3.5-5.1) mEq/L Chloride 101 (98-107) mEq/L Carbon Dioxide 22 (21-32) mEq/L Anion Gap 16.1 H (5-15) BUN 3 L (7-18) mg/dL Creatinine 0.8 (0.7-1.3) mg/dL Est Cr Clr Drug Dosing 110.56 mL/min Estimated GFR (MDRD) > 60 (>60) mL/min BUN/Creatinine Ratio 3.8 L (14-18) Glucose 194 H (74-106) mg/dL POC Glucose (70-99) mg/dL Lactic Acid 6.3 H* (0.4-2.0) mmol/L Calcium 7.7 L (8.5-10.1) mg/dL Phosphorus 2.2 L (2.6-4.7) mg/dL Magnesium 2.0 (1.8-2.4) mg/dl Ferritin (26-388) ng/ml Total Bilirubin 0.5 (0.2-1.0) mg/dL AST 45 H (15-37) U/L ALT 67 H (16-63) U/L Alkaline Phosphatase 131 H (46-116) U/L C-Reactive Protein 19.1 H* (<1.0) mg/dL Total Protein 5.8 L (6.4-8.2) g/dl Albumin 2.0 L (3.4-5.0) g/dl Globulin 3.8 gm/dL Albumin/Globulin Ratio 0.5 L (1-2) Vitamin D 25-Hydroxy (30.0-100.0) ng/ml 01/20/21 01/20/21 01/20/21 Range/Units 05:03 06:12 07:00 WBC (4.23-9.07) K/mm3 RBC (4.63-6.08) M/mm3 Hgb (13.7-17.5) gm/dl Hct (40.1-51.0) % MCV (79.0-92.2) fl MCH (25.7-32.2) pg MCHC (32.2-35.5) g/dl RDW Std Deviation (35.1-43.9) fL Plt Count (163-337) K/mm3 MPV (9.4-12.3) fl Neut % (Auto) (34.0-67.9) % Lymph % (Auto) (21.8-53.1) % Mel[place] % (Auto) (5.3-12.2) % Eos % (Auto) (0.8-7.0) Baso % (Auto) (0.1-1.2) % Neut # (Auto) (1.78-5.38) K/mm3 Lymph # (Auto) (1.32-3.57) K/mm3 [place] # (Auto) (0.30-0.82) K/mm3 Eos # (Auto) (0.04-0.54) K/mm3 Baso # (Auto) (0.01-0.08) K/mm3 Manual Slide Review D-Dimer, Quantitative (0.19-0.50) mg/L Sodium (136-145) mEq/L Potassium (3.5-5.1) mEq/L Chloride (98-107) mEq/L Carbon Dioxide (21-32) mEq/L Anion Gap (5-15) BUN (7-18) mg/dL Creatinine (0.7-1.3) mg/dL Est Cr Clr Drug Dosing mL/min Estimated GFR (MDRD) (>60) mL/min BUN/Creatinine Ratio (14-18) Glucose (74-106) mg/dL POC Glucose 176 H 224 H 200 H (70-99) mg/dL Lactic Acid (0.4-2.0) mmol/L Calcium (8.5-10.1) mg/dL Phosphorus (2.6-4.7) mg/dL Magnesium (1.8-2.4) mg/dl Ferritin (26-388) ng/ml Total Bilirubin (0.2-1.0) mg/dL AST (15-37) U/L ALT (16-63) U/L Alkaline Phosphatase (46-116) U/L C-Reactive Protein (<1.0) mg/dL Total Protein (6.4-8.2) g/dl Albumin (3.4-5.0) g/dl Globulin gm/dL Albumin/Globulin Ratio (1-2) Vitamin D 25-Hydroxy (30.0-100.0) ng/ml 01/20/21 Range/Units 07:59 WBC (4.23-9.07) K/mm3 RBC (4.63-6.08) M/mm3 Hgb (13.7-17.5) gm/dl Hct (40.1-51.0) % MCV (79.0-92.2) fl MCH (25.7-32.2) pg MCHC (32.2-35.5) g/dl RDW Std Deviation (35.1-43.9) fL Plt Count (163-337) K/mm3 MPV (9.4-12.3) fl Neut % (Auto) (34.0-67.9) % Lymph % (Auto) (21.8-53.1) % Mel[place] % (Auto) (5.3-12.2) % Eos % (Auto) (0.8-7.0) Baso % (Auto) (0.1-1.2) % Neut # (Auto) (1.78-5.38) K/mm3 Lymph # (Auto) (1.32-3.57) K/mm3 [place] # (Auto) (0.30-0.82) K/mm3 Eos # (Auto) (0.04-0.54) K/mm3 Baso # (Auto) (0.01-0.08) K/mm3 Manual Slide Review D-Dimer, Quantitative (0.19-0.50) mg/L Sodium (136-145) mEq/L Potassium (3.5-5.1) mEq/L Chloride (98-107) mEq/L Carbon Dioxide (21-32) mEq/L Anion Gap (5-15) BUN (7-18) mg/dL Creatinine (0.7-1.3) mg/dL Est Cr Clr Drug Dosing mL/min Estimated GFR (MDRD) (>60) mL/min BUN/Creatinine Ratio (14-18) Glucose (74-106) mg/dL POC Glucose 168 H (70-99) mg/dL Lactic Acid (0.4-2.0) mmol/L Calcium (8.5-10.1) mg/dL Phosphorus (2.6-4.7) mg/dL Magnesium (1.8-2.4) mg/dl Ferritin (26-388) ng/ml Total Bilirubin (0.2-1.0) mg/dL AST (15-37) U/L ALT (16-63) U/L Alkaline Phosphatase (46-116) U/L C-Reactive Protein (<1.0) mg/dL Total Protein (6.4-8.2) g/dl Albumin (3.4-5.0) g/dl Globulin gm/dL Albumin/Globulin Ratio (1-2) Vitamin D 25-Hydroxy (30.0-100.0) ng/ml Result Diagrams: 01/20/21 04:38 01/20/21 08:34 Rosalio Results Last 24 hrs: Microbiology 01/16/21 22:00 Aerobic Blood Culture - Preliminary Blood NO GROWTH AFTER 3 DAYS Anaerobic Blood Culture - Preliminary NO GROWTH AFTER 3 DAYS 01/16/21 21:58 Aerobic Blood Culture - Preliminary Blood NO GROWTH AFTER 3 DAYS Anaerobic Blood Culture - Preliminary NO GROWTH AFTER 3 DAYS 01/17/21 21:36 Aerobic Blood Culture - Preliminary Blood - Venous - Lab Draw NO GROWTH AFTER 2 DAYS Anaerobic Blood Culture - Preliminary NO GROWTH AFTER 2 DAYS 01/17/21 21:32 Aerobic Blood Culture - Preliminary Blood - Venous NO GROWTH AFTER 2 DAYS Anaerobic Blood Culture - Preliminary NO GROWTH AFTER 2 DAYS Sepsis Event Note - Evaluation Sepsis Screening Result: No Definite Risk - Focused Exam Vital Signs: Vital Signs Temp Pulse Pulse Resp BP BP Pulse Ox 01/20/21 08:39 99 123/92 H 01/20/21 08:00 97.0 F 93 18 123/92 H 99 01/20/21 06:00 96 01/20/21 05:59 120/95 H 94 L 01/20/21 05:58 95 01/20/21 05:00 100 01/20/21 04:01 100 01/20/21 04:00 97 F 85 16 138/102 H 138/102 H 99 01/20/21 03:59 100 01/20/21 03:00 98 01/20/21 02:04 130/100 H 98 01/20/21 02:03 99 01/20/21 02:01 97 01/20/21 02:00 131/112 H 97 01/20/21 01:59 98 01/20/21 01:00 99 01/20/21 00:01 99 01/20/21 00:00 97.2 F 83 16 118/93 H 118/93 H 100 01/19/21 23:59 99 01/19/21 23:00 98 01/19/21 22:01 98 01/19/21 22:00 120/97 H 96 01/19/21 21:59 95 01/19/21 21:00 94 L - Problem List Review Problem List Initiated/Reviewed/Updated: Yes - Assessment Assessment:: DKA -Hx of DM 1 -Severe pH on admit was 6.8 -BG >900 on admit -CO2 now 22, BG 168 -AG 16 patient's anion gap from diabetic ketoacidosis has resolved however does have residual lactic acidosis which is the contributing factor to mildly eleva tennille anion gap -A1C 10.6% Sepsis -Severe, lactic acid 9.2 on admit now 6.3 -Secondary to bilateral pneumonia predicated on CT chest -Dense consolidations in bilateral lower lobes -WBC 18.5 --> 8.34, lactic acid 6.3 -Increasing neutrophils, now 85.4% -Procal 0.38 -BC negative at 72 hours, negative COVID Lactic Acidosis -On presentation was 9.2 has now downtrended to 6.3, but would expect more improvement with resolution on DKA over the past 4 days. -Does have bilateral consolidations in lower lobes consistent with possible PNA -No evidence of ischemic bowel or other end organ damage -Patient have hepatomegaly however no radiographic evidence of cirrhosis that would explain patient's ongoing lactic acidosis. Elevated D-dimer -On 01/19 was 1.04 Hepatomegaly -CT scan showed enlarged liver at 25cm -No obstruction or other abnormal findings Thrombocytopenia -Platelet count 145 Cocaine Abuse -Positive on admit - Plan Plan:: Patient is a 25-year-old male with a history of type 1 diabetes and medical noncompliance who was brought to the ER due to unresponsiveness. Patient was found unresponsive by a friend. Patient has had multiple ER visits due to AMS and DKA in the past. Plan: DC Insulin infusion lantus 15 units now, then DC insulin infusion in 15 minutes Lantus QHS High sliding scale insulin ADA diet DC D10, Start NS @ 70cc/hr Continue Zosyn, DC Azithromycin K replacement as indicated BMP and Accu-Chek every early childhood educator aide consulted Social work consulted for substance abuse and tobacco abuse DVT prophylaxis: Lovenox CODE STATUS: Full
[2021-01-20] MEDS ORDERED: Insulin Glarg,Human.Rec.Analog 100 Unit/ML SUBCUT ONE (09:39)
[2021-01-20] MEDS: Sodium Chloride 0.9% 1,000 ML IV SCH (09:57)
[2021-01-20] MEDS: Insulin Lispro 100 UNIT/ML 10 ML Vial SUBCUT SCH ×4 (10:23→21:30)
[2021-01-20] MEDS ORDERED: Insulin Lispro 100 UNIT/ML 10 ML Vial SUBCUT ONE (17:45)
[2021-01-20] MEDS: Loperamide 2 MG Cap PO PRN (17:54)
[2021-01-20] MEDS: Insulin Glarg,Human.Rec.Analog 100 Unit/ML SUBCUT SCH (20:18)
[2021-01-21] MEDS: Sodium Chloride 0.9% 1,000 ML IV SCH (00:58)
[2021-01-21] MEDS: Piperacillin/Tazobactam 4.5 GM in Sodium Chloride 0.9% 100 ML IV SCH (05:12)
[2021-01-21] MEDS: Loperamide 2 MG Cap PO PRN (06:33)
--- NOTE | 2021-01-21 07:23 | PCM.DCSUM1 ---
Discharge Summary - Hospital Course Free Text/Narrative:: HPI: Patient is a 25-year-old male with a history of type 1 diabetes and medical noncompliance who was brought to the ER due to unresponsiveness. Patient was found unresponsive by a friend. Patient has had multiple ER visits due to AMS and DKA in the past. Patient also has nausea and vomiting. In the ER, she was found to have elevation of blood glucose, 900. Chest x-ray was negative. Insulin drip was initiated in the ER. He became responsive after insulin was given. Urine drug screen positive for cocaine. Hospital course: Patient was admitted secondary to diabetic ketoacidosis at time presentation patient had a blood sugar greater than 900, ongoing encephalopathy and severe metabolic acidosis. The patient's pH at time of arrival is approximately 6.8. Patient was aggressively fluid resuscitated and placed on insulin drip per DKA protocol. Patient did have a stepwise decrease in his blood sugar with no hypoglycemic events. The patient was able to be transitioned off of insulin drip and placed on Lantus at 15 units daily. The patient was placed on high sliding scale and given diabetic diet which he tolerated well. At time of discharge patient's blood sugar was 120. The patient's anion gap did close and was at 12 at time of discharge. At time of discharge patient understood need for ongoing compliance with insulin therapy. During his hospitalization the patient was also seen by telemetry psychiatry secondary to cocaine abuse. At this time patient is in no acute distress has no ongoing acute complaints and will be discharged home. Diagnosis: Stroke: No - Discharge Data Discharge Date: 01/21/21 Discharge Disposition: Home, Self-Care 01 Condition: Good - Referral to Home Health Primary Care Physician: Faina Frost NP Follow-up with primary care physician within 1 week of discharge. Patient needs ongoing diabetic education and management. In addition to this the patient should be started on a LENARD inhibitor given diabetes mellitus. In addition the patient should have annual screening for diabetic neuropathy and retinopathy. Would recommend further education about cessation of illicit drugs. - Discharge Diagnosis/Problem(s) (1) Diabetic ketoacidosis SNOMED Code(s): 725050239, [id number] ICD Code: E11.10 - TYPE 2 DIABETES MELLITUS WITH KETOACIDOSIS WITHOUT COMA Status: Acute Priority: High Current Visit: Yes Qualifiers: Diabetes mellitus type: type 1 Diabetes mellitus complication detail: without coma Qualified Code(s): E10.10 - Type 1 diabetes mellitus with ketoacidosis without coma - Patient Summary/Data Consults: Consultations 01/17/21 00:31 Consult to Diabetic Nurse Specialist [CONS] Routine 01/17/21 10:06 Consult to Case Management/Clinical Nursing Director [CONS] Routine 01/17/21 10:34 Consult to Physician [CONS] Routine - Patient Instructions Diet: Diabetic Diet Activity: As Tolerated Notify Provider of: Fever, Nausea and/or Vomiting - Discharge Plan *PRESCRIPTION DRUG MONITORING PROGRAM REVIEWED*: No *COPY OF PRESCRIPTION DRUG MONITORING REPORT IN PATIENT LENNOX: Yes Prescriptions/Med Rec: Insulin Glarg,Human.Rec.Analog [Lantus] 20 units SUBCUT DAILY #1 ml Insulin Aspart [NovoLOG] 0 units SUBCUT ASDIRECTED #1 pen Home Medications: Home Meds Insulin Aspart [NovoLOG] 0 units SUBCUT ASDIRECTED #1 pen 01/21/21 [Rx] Insulin Glarg,Human.Rec.Analog [Lantus] 20 units SUBCUT DAILY #1 ml 01/21/21 [Rx] Oxygen Therapy Mode: Room Air Patient Handouts: Diabetic Ketoacidosis, Smokeless Tobacco Information, Adult, Preventing Diabetic Ketoacidosis, Sepsis, Self Care, Adult Forms: ED Department Discharge Referrals: Faina Frost NP [Primary Care Provider] - - Discharge Summary/Plan Comment DC Time >30 min.: Yes - Review of Systems General: Reports: No Symptoms HEENT: Reports: No Symptoms Pulmonary: Reports: No Symptoms Cardiovascular: Reports: No Symptoms Gastrointestinal: Reports: No Symptoms Genitourinary: Reports: No Symptoms Musculoskeletal: Reports: No Symptoms Skin: Reports: No Symptoms Neurological: Reports: No Symptoms Psychiatric: Reports: No Symptoms - Patient Data Vitals - Most Recent: Last Vital Signs Temp 97.2 F 01/21/21 03:55 Pulse 94 01/20/21 12:00 Resp 16 01/21/21 03:55 BP 123/97 H 01/21/21 03:55 Pulse Ox 98 01/21/21 06:00 Weight - Most Recent: 125 lb 8 oz I&O - Last 24 hours: Intake & Output 01/20/21 01/21/21 01/21/21 22:59 06:59 14:59 Intake Total 1304 1414 Output Total 800 Balance 1304 614 Lab Results - Last 24 hrs: Laboratory Results - last 24 hr 01/20/21 01/20/21 01/20/21 Range/Units 07:59 08:34 08:34 WBC (4.23-9.07) K/mm3 RBC (4.63-6.08) M/mm3 Hgb (13.7-17.5) gm/dl Hct (40.1-51.0) % MCV (79.0-92.2) fl MCH (25.7-32.2) pg MCHC (32.2-35.5) g/dl RDW Std Deviation (35.1-43.9) fL Plt Count (163-337) K/mm3 MPV (9.4-12.3) fl Neut % (Auto) (34.0-67.9) % Lymph % (Auto) (21.8-53.1) % Baker % (Auto) (5.3-12.2) % Eos % (Auto) (0.8-7.0) Baso % (Auto) (0.1-1.2) % Neut # (Auto) (1.78-5.38) K/mm3 Lymph # (Auto) (1.32-3.57) K/mm3 Baker # (Auto) (0.30-0.82) K/mm3 Eos # (Auto) (0.04-0.54) K/mm3 Baso # (Auto) (0.01-0.08) K/mm3 Sodium 135 L (136-145) mEq/L Potassium 3.8 (3.5-5.1) mEq/L Chloride 101 (98-107) mEq/L Carbon Dioxide 21 (21-32) mEq/L Anion Gap 16.8 H (5-15) BUN 4 L (7-18) mg/dL Creatinine 0.8 (0.7-1.3) mg/dL Est Cr Clr Drug Dosing 112.41 mL/min Estimated GFR (MDRD) > 60 (>60) mL/min BUN/Creatinine Ratio 5.0 L (14-18) Glucose 205 H (74-106) mg/dL POC Glucose 168 H (70-99) mg/dL Lactic Acid 6.0 H* (0.4-2.0) mmol/L Calcium 7.4 L (8.5-10.1) mg/dL Total Bilirubin (0.2-1.0) mg/dL AST (15-37) U/L ALT (16-63) U/L Alkaline Phosphatase (46-116) U/L Total Protein (6.4-8.2) g/dl Albumin (3.4-5.0) g/dl Globulin gm/dL Albumin/Globulin Ratio (1-2) 01/20/21 01/20/21 01/20/21 Range/Units 09:01 10:04 12:44 WBC (4.23-9.07) K/mm3 RBC (4.63-6.08) M/mm3 Hgb (13.7-17.5) gm/dl Hct (40.1-51.0) % MCV (79.0-92.2) fl MCH (25.7-32.2) pg MCHC (32.2-35.5) g/dl RDW Std Deviation (35.1-43.9) fL Plt Count (163-337) K/mm3 MPV (9.4-12.3) fl Neut % (Auto) (34.0-67.9) % Lymph % (Auto) (21.8-53.1) % Baker % (Auto) (5.3-12.2) % Eos % (Auto) (0.8-7.0) Baso % (Auto) (0.1-1.2) % Neut # (Auto) (1.78-5.38) K/mm3 Lymph # (Auto) (1.32-3.57) K/mm3 Baker # (Auto) (0.30-0.82) K/mm3 Eos # (Auto) (0.04-0.54) K/mm3 Baso # (Auto) (0.01-0.08) K/mm3 Sodium 132 L (136-145) mEq/L Potassium 5.2 H (3.5-5.1) mEq/L Chloride 98 (98-107) mEq/L Carbon Dioxide 20 L (21-32) mEq/L Anion Gap 19.2 H (5-15) BUN 11 (7-18) mg/dL Creatinine 0.9 (0.7-1.3) mg/dL Est Cr Clr Drug Dosing 99.92 mL/min Estimated GFR (MDRD) > 60 (>60) mL/min BUN/Creatinine Ratio 12.2 L (14-18) Glucose 495 H (74-106) mg/dL POC Glucose 167 H 138 H (70-99) mg/dL Lactic Acid (0.4-2.0) mmol/L Calcium 7.9 L (8.5-10.1) mg/dL Total Bilirubin (0.2-1.0) mg/dL AST (15-37) U/L ALT (16-63) U/L Alkaline Phosphatase (46-116) U/L Total Protein (6.4-8.2) g/dl Albumin (3.4-5.0) g/dl Globulin gm/dL Albumin/Globulin Ratio (1-2) 01/20/21 01/20/21 01/20/21 Range/Units 12:44 13:21 16:58 WBC (4.23-9.07) K/mm3 RBC (4.63-6.08) M/mm3 Hgb (13.7-17.5) gm/dl Hct (40.1-51.0) % MCV (79.0-92.2) fl MCH (25.7-32.2) pg MCHC (32.2-35.5) g/dl RDW Std Deviation (35.1-43.9) fL Plt Count (163-337) K/mm3 MPV (9.4-12.3) fl Neut % (Auto) (34.0-67.9) % Lymph % (Auto) (21.8-53.1) % Baker % (Auto) (5.3-12.2) % Eos % (Auto) (0.8-7.0) Baso % (Auto) (0.1-1.2) % Neut # (Auto) (1.78-5.38) K/mm3 Lymph # (Auto) (1.32-3.57) K/mm3 Baker # (Auto) (0.30-0.82) K/mm3 Eos # (Auto) (0.04-0.54) K/mm3 Baso # (Auto) (0.01-0.08) K/mm3 Sodium (136-145) mEq/L Potassium (3.5-5.1) mEq/L Chloride (98-107) mEq/L Carbon Dioxide (21-32) mEq/L Anion Gap (5-15) BUN (7-18) mg/dL Creatinine (0.7-1.3) mg/dL Est Cr Clr Drug Dosing mL/min Estimated GFR (MDRD) (>60) mL/min BUN/Creatinine Ratio (14-18) Glucose (74-106) mg/dL POC Glucose 418 H* 189 H (70-99) mg/dL Lactic Acid 1.6 (0.4-2.0) mmol/L Calcium (8.5-10.1) mg/dL Total Bilirubin (0.2-1.0) mg/dL AST (15-37) U/L ALT (16-63) U/L Alkaline Phosphatase (46-116) U/L Total Protein (6.4-8.2) g/dl Albumin (3.4-5.0) g/dl Globulin gm/dL Albumin/Globulin Ratio (1-2) 01/20/21 01/21/21 01/21/21 Range/Units 20:12 05:11 05:11 WBC 7.75 (4.23-9.07) K/mm3 RBC 3.18 L (4.63-6.08) M/mm3 Hgb 9.5 L (13.7-17.5) gm/dl Hct 28.2 L (40.1-51.0) % MCV 88.7 (79.0-92.2) fl MCH 29.9 (25.7-32.2) pg MCHC 33.7 (32.2-35.5) g/dl RDW Std Deviation 44.7 H (35.1-43.9) fL Plt Count 182 (163-337) K/mm3 MPV 8.8 L (9.4-12.3) fl Neut % (Auto) 70.7 H (34.0-67.9) % Lymph % (Auto) 21.7 L (21.8-53.1) % Baker % (Auto) 6.7 (5.3-12.2) % Eos % (Auto) 0.5 L (0.8-7.0) Baso % (Auto) 0.1 (0.1-1.2) % Neut # (Auto) 5.48 H (1.78-5.38) K/mm3 Lymph # (Auto) 1.68 (1.32-3.57) K/mm3 Baker # (Auto) 0.52 (0.30-0.82) K/mm3 Eos # (Auto) 0.04 (0.04-0.54) K/mm3 Baso # (Auto) 0.01 (0.01-0.08) K/mm3 Sodium 139 (136-145) mEq/L Potassium 3.7 D (3.5-5.1) mEq/L Chloride 105 (98-107) mEq/L Carbon Dioxide 25 (21-32) mEq/L Anion Gap 12.7 (5-15) BUN 12 (7-18) mg/dL Creatinine 0.7 (0.7-1.3) mg/dL Est Cr Clr Drug Dosing 132.15 mL/min Estimated GFR (MDRD) > 60 (>60) mL/min BUN/Creatinine Ratio 17.1 (14-18) Glucose 121 H (74-106) mg/dL POC Glucose 145 H (70-99) mg/dL Lactic Acid (0.4-2.0) mmol/L Calcium 7.6 L (8.5-10.1) mg/dL Total Bilirubin 0.3 (0.2-1.0) mg/dL AST 35 (15-37) U/L ALT 65 H (16-63) U/L Alkaline Phosphatase 117 H (46-116) U/L Total Protein 5.6 L (6.4-8.2) g/dl Albumin 2.0 L (3.4-5.0) g/dl Globulin 3.6 gm/dL Albumin/Globulin Ratio 0.6 L (1-2) 01/21/21 Range/Units 05:11 WBC (4.23-9.07) K/mm3 RBC (4.63-6.08) M/mm3 Hgb (13.7-17.5) gm/dl Hct (40.1-51.0) % MCV (79.0-92.2) fl MCH (25.7-32.2) pg MCHC (32.2-35.5) g/dl RDW Std Deviation (35.1-43.9) fL Plt Count (163-337) K/mm3 MPV (9.4-12.3) fl Neut % (Auto) (34.0-67.9) % Lymph % (Auto) (21.8-53.1) % Baker % (Auto) (5.3-12.2) % Eos % (Auto) (0.8-7.0) Baso % (Auto) (0.1-1.2) % Neut # (Auto) (1.78-5.38) K/mm3 Lymph # (Auto) (1.32-3.57) K/mm3 Baker # (Auto) (0.30-0.82) K/mm3 Eos # (Auto) (0.04-0.54) K/mm3 Baso # (Auto) (0.01-0.08) K/mm3 Sodium (136-145) mEq/L Potassium (3.5-5.1) mEq/L Chloride (98-107) mEq/L Carbon Dioxide (21-32) mEq/L Anion Gap (5-15) BUN (7-18) mg/dL Creatinine (0.7-1.3) mg/dL Est Cr Clr Drug Dosing mL/min Estimated GFR (MDRD) (>60) mL/min BUN/Creatinine Ratio (14-18) Glucose (74-106) mg/dL POC Glucose (70-99) mg/dL Lactic Acid 3.3 H* (0.4-2.0) mmol/L Calcium (8.5-10.1) mg/dL Total Bilirubin (0.2-1.0) mg/dL AST (15-37) U/L ALT (16-63) U/L Alkaline Phosphatase (46-116) U/L Total Protein (6.4-8.2) g/dl Albumin (3.4-5.0) g/dl Globulin gm/dL Albumin/Globulin Ratio (1-2) MEGAN Results - Last 24 hrs: Microbiology 01/16/21 22:00 Aerobic Blood Culture - Preliminary Blood NO GROWTH AFTER 4 DAYS Anaerobic Blood Culture - Preliminary NO GROWTH AFTER 4 DAYS 01/16/21 21:58 Aerobic Blood Culture - Preliminary Blood NO GROWTH AFTER 4 DAYS Anaerobic Blood Culture - Preliminary NO GROWTH AFTER 4 DAYS 01/17/21 21:36 Aerobic Blood Culture - Preliminary Blood - Venous - Lab Draw NO GROWTH AFTER 3 DAYS Anaerobic Blood Culture - Preliminary NO GROWTH AFTER 3 DAYS 01/17/21 21:32 Aerobic Blood Culture - Preliminary Blood - Venous NO GROWTH AFTER 3 DAYS Anaerobic Blood Culture - Preliminary NO GROWTH AFTER 3 DAYS Med Orders - Current: Current Medications Acetaminophen (Acetaminophen 325 Mg Tab) 650 mg PO Q6H PRN PRN Reason: Pain (Mild 1-3)/fever Last Admin: 01/17/21 19:49 Dose: 650 mg Documented by: Aspirin (Aspirin 81 Mg Tab.Chew) 81 mg PO DAILY [facility] Last Admin: 01/20/21 08:39 Dose: 81 mg Documented by: Dexamethasone (Dexamethasone 4 Mg Tab) 6 mg PO DAILY [facility] Last Admin: 01/20/21 08:40 Dose: 6 mg Documented by: Enoxaparin Sodium (Enoxaparin 40 Mg/0.4 Ml Syringe) 40 mg SUBCUT BID [facility] Last Admin: 01/20/21 20:13 Dose: Not Given Documented by: Hydralazine HCl (Hydralazine 20 Mg/Ml Sdv) 10 mg IVPUSH Q4H PRN PRN Reason: Hypertension Piperacillin Sod/Tazobactam (Sod 4.5 gm/ Sodium Chloride) 100 mls @ 25 mls/hr IV Q8HR [facility] Last Admin: 01/21/21 05:12 Dose: 25 mls/hr Documented by: Sodium Chloride (Normal Saline) 1,000 mls @ 70 mls/hr IV ASDIRECTED [facility] Last Admin: 01/21/21 00:58 Dose: 70 mls/hr Documented by: Insulin Glargine (Insulin Glarg,Human.Rec.Analog 100 Unit/Ml) 15 unit SUBCUT DAILY [facility] Last Admin: 01/20/21 20:18 Dose: 15 units Documented by: Insulin Human Lispro (Insulin Lispro 100 Unit/Ml) 0 unit SUBCUT QIDACANDBED [facility]; Protocol Last Admin: 01/20/21 21:30 Dose: Not Given Documented by: Loperamide HCl (Loperamide 2 Mg Cap) 2 mg PO Q4H PRN PRN Reason: Diarrhea Last Admin: 01/21/21 06:33 Dose: 2 mg Documented by: Lorazepam (Lorazepam 2 Mg/Ml Sdv) 0.5 mg IVPUSH Q4H PRN PRN Reason: Agitation Ondansetron HCl (Ondansetron 4 Mg/2 Ml Sdv) 4 mg IV Q6H PRN PRN Reason: Nausea/Vomiting Last Admin: 01/17/21 15:35 Dose: 4 mg Documented by: Pantoprazole Sodium (Pantoprazole 40 Mg Vial) 40 mg IVPUSH DAILY [facility] Last Admin: 01/20/21 08:39 Dose: 40 mg Documented by: Sodium Chloride (Sodium Chloride 0.9% 10 Ml Syringe) 10 ml FLUSH ASDIRECTED PRN PRN Reason: Keep Vein Open Last Admin: 01/16/21 22:06 Dose: 10 ml Documented by: Discontinued Medications Diltiazem HCl (Diltiazem 50 Mg/10 Ml Sdv) 2.5 mg IVPUSH Q1H PRN PRN Reason: HR greater than 110 Last Admin: 01/17/21 16:38 Dose: 2.5 mg Documented by: Diltiazem HCl (Diltiazem Ir 30 Mg Tab) 15 mg PO Q8H PRN PRN Reason: Tachycardia Last Admin: 01/17/21 12:29 Dose: 15 mg Documented by: Diltiazem HCl (Diltiazem 50 Mg/10 Ml Sdv) 5 mg IVPUSH ONETIME ONE Stop: 01/17/21 17:42 Last Admin: 01/17/21 17:49 Dose: 5 mg Documented by: Enoxaparin Sodium (Enoxaparin 40 Mg/0.4 Ml Syringe) 40 mg SUBCUT DAILY [facility] Last Admin: 01/17/21 07:55 Dose: Not Given Documented by: Enoxaparin Sodium (Enoxaparin 40 Mg/0.4 Ml Syringe) 40 mg SUBCUT BEDTIME [facility] Last Admin: 01/18/21 20:35 Dose: Not Given Documented by: Enoxaparin Sodium (Enoxaparin 40 Mg/0.4 Ml Syringe) 40 mg SUBCUT ONETIME ONE Stop: 01/19/21 14:11 Last Admin: 01/19/21 14:32 Dose: Not Given Documented by: Enoxaparin Sodium (Enoxaparin 40 Mg/0.4 Ml Syringe) 40 mg SUBCUT ONETIME ONE Stop: 01/19/21 14:20 Last Admin: 01/19/21 14:36 Dose: 40 mg Documented by: Sodium Chloride (Normal Saline) 1,000 mls @ 999 mls/hr IV ONETIME [facility] Last Admin: 01/16/21 22:05 Dose: 999 mls/hr Documented by: Lactated Ringer's (Ringers, Lactated) 1,000 mls @ 999 mls/hr IV .BOLUS ONE Stop: 01/16/21 22:43 Last Admin: 01/16/21 22:05 Dose: 999 mls/hr Documented by: Insulin Human Regular 100 unit (/ Sodium Chloride) 100 mls @ 5 mls/hr IV TITRATE [facility]; Protocol Last Titration: 01/17/21 03:37 Dose: 2.3 units/hr, 2.3 mls/hr Documented by: Sodium Chloride (Normal Saline) Confirm Administered Dose 100 mls @ as directed .ROUTE .STK-MED ONE Stop: 01/16/21 22:07 Last Admin: 01/17/21 06:02 Dose: Not Given Documented by: Lactated Ringer's (Ringers, Lactated) 1,000 mls @ 500 mls/hr IV NOW STA Stop: 01/17/21 01:04 Last Admin: 01/16/21 23:05 Dose: 500 mls/hr Documented by: Lactated Ringer's (Ringers, Lactated) 1,000 mls @ 500 mls/hr IV .BOLUS ONE Stop: 01/17/21 01:04 Last Admin: 01/16/21 23:05 Dose: 500 mls/hr Documented by: Insulin Human Regular 100 unit (/ Sodium Chloride) 100 mls @ 5.502 mls/hr IV TITRATE [facility]; Protocol Potassium Chloride/Sodium Chloride (1/2 Ns With 20 Meq Kcl) 1,000 mls @ 125 mls/hr IV ASDIRECTED [facility] Last Infusion: 01/17/21 04:51 Dose: 0 mls/hr Documented by: Insulin Human Regular 100 unit (/ Sodium Chloride) 100 mls @ 1.1 mls/hr IV TITRATE [facility]; Protocol Last Titration: 01/20/21 10:15 Dose: 0 units/kg/hr, 0 mls/hr Documented by: Potassium Chloride/Dextrose/Sod Cl (D5 1/2 Ns W/ 20 Meq/L Kcl) 1,000 mls @ 80 mls/hr IV ASDIRECTED [facility] Stop: 01/19/21 19:30 Last Admin: 01/19/21 17:58 Dose: 80 mls/hr Documented by: Sodium Chloride (Normal Saline) 500 mls @ 999 mls/hr IV .BOLUS ONE Stop: 01/17/21 07:39 Last Admin: 01/17/21 07:09 Dose: 999 mls/hr Documented by: Sodium Chloride (Normal Saline) Confirm Administered Dose 1,000 mls @ as directed .ROUTE .STK-MED ONE Stop: 01/17/21 07:12 Last Admin: 01/17/21 07:52 Dose: Not Given Documented by: Sodium Chloride (Normal Saline) 500 mls @ 999 mls/hr IV .BOLUS ONE Stop: 01/17/21 10:31 Last Admin: 01/17/21 10:12 Dose: 999 mls/hr Documented by: Sodium Chloride (Normal Saline) 500 mls @ 999 mls/hr IV .BOLUS ONE Stop: 01/17/21 13:49 Last Admin: 01/17/21 13:27 Dose: 999 mls/hr Documented by: Piperacillin Sod/Tazobactam (Sod 4.5 gm/ Sodium Chloride) 100 mls @ 200 mls/hr IV ONETIME ONE Stop: 01/17/21 21:44 Last Admin: 01/17/21 21:38 Dose: 200 mls/hr Documented by: Azithromycin 400 mg/ Sodium (Chloride) 250 mls @ 250 mls/hr IV Q24H [facility] Azithromycin 500 mg/ Sodium (Chloride) 250 mls @ 250 mls/hr IV BEDTIME [facility] Last Admin: 01/19/21 20:12 Dose: 250 mls/hr Documented by: Potassium Phosphate 30 mmole/ (Sodium Chloride) 510 mls @ 102 mls/hr IV ONETIME ONE Stop: 01/19/21 14:29 Magnesium Sulfate 4 gm/ Premix 50 mls @ 12.5 mls/hr IV ONETIME ONE Stop: 01/19/21 17:59 Potassium Chloride 10 meq/ (Premix) 100 mls @ 100 mls/hr IV Q1H [facility] Stop: 01/19/21 11:29 Last Admin: 01/19/21 11:12 Dose: 100 mls/hr Documented by: Potassium Phosphate 30 mmole/ (Sodium Chloride) 510 mls @ 102 mls/hr IV ONETIME ONE Stop: 01/19/21 16:59 Last Admin: 01/19/21 12:41 Dose: 102 mls/hr Documented by: Magnesium Sulfate 4 gm/ Premix 50 mls @ 12.5 mls/hr IV ONETIME ONE Stop: 01/19/21 20:59 Last Admin: 01/19/21 18:04 Dose: 12.5 mls/hr Documented by: Sodium Chloride 77 meq/Potassium Chloride 20 meq/Dextrose/Water 1,029.25 mls @ 80 mls/hr IV Q12H [facility] Last Admin: 01/20/21 08:40 Dose: 80 mls/hr Documented by: Insulin Glargine (Insulin Glarg,Human.Rec.Analog 100 Unit/Ml) 15 unit SUBCUT ONETIME ONE Stop: 01/20/21 09:40 Last Admin: 01/20/21 09:57 Dose: 15 units Documented by: Insulin Human Lispro (Insulin Lispro 100 Unit/Ml) 10 unit SUBCUT ONETIME ONE Stop: 01/20/21 17:46 Last Admin: 01/20/21 17:54 Dose: 10 units Documented by: Insulin Human Regular (Insulin Regular, Human 100 Units/Ml 3 Ml Vial) 5 unit IVPUSH ONETIME ONE; Protocol Stop: 01/16/21 21:44 Last Admin: 01/16/21 21:49 Dose: 5 unit Documented by: Metoprolol Tartrate (Metoprolol Tartrate 5 Mg/5 Ml Sdv) 5 mg IVPUSH ONETIME ONE Stop: 01/17/21 18:34 Last Admin: 01/17/21 18:41 Dose: 5 mg Documented by: Metoprolol Tartrate (Metoprolol Tartrate 5 Mg/5 Ml Sdv) 2.5 mg IVPUSH Q10M PRN PRN Reason: Tachycardia Last Admin: 01/18/21 17:01 Dose: 2.5 mg Documented by: Metoprolol Tartrate (Metoprolol Tartrate 25 Mg Tab) 12.5 mg PO Q12HR [facility] Last Admin: 01/20/21 08:39 Dose: 12.5 mg Documented by: Morphine Sulfate (Morphine 2 Mg/Ml Syringe) 2 mg IVPUSH Q4H PRN PRN Reason: Pain (severe 7-10) Stop: 01/18/21 00:35 Sodium Bicarbonate (Sodium Bicarbonate 8.4% 50 Meq/50 Ml Syringe) 50 meq IVPUSH ONETIME ONE Stop: 01/16/21 22:16 Last Admin: 01/16/21 22:20 Dose: 50 meq Documented by: - Exam General: Reports: Alert, Oriented HEENT: Reports: Pupils Equal Neck: Reports: Supple Lungs: Reports: Clear to Auscultation, Normal Respiratory Effort Cardiovascular: Reports: Regular Rate, Regular Rhythm GI/Abdominal Exam: Normal Bowel Sounds, Soft, Non-Tender (Male) Exam: Normal Inspection Extremities: Normal Inspection Skin: Reports: Dry, Intact Neurological: Reports: No New Focal Deficit Psy/Mental Status: Reports: Alert, Normal Affect, Normal Mood
[2021-01-21] MEDS: Insulin Lispro 100 UNIT/ML 10 ML Vial SUBCUT SCH (07:40)
[2021-01-21] MEDS: Aspirin 81 MG Tab.Chew PO SCH (09:22)
[2021-01-21] MEDS: Insulin Glarg,Human.Rec.Analog 100 Unit/ML SUBCUT SCH (09:23)
[2021-01-21] MEDS: Dexamethasone 4 MG Tab PO SCH (09:23)
[2021-01-21] MEDS: Enoxaparin 40 MG/0.4 ML Syringe SUBCUT SCH (09:26)
[2021-01-21] MEDS: Pantoprazole 40 MG Vial IVPUSH SCH (09:26)
[2021-01-21 10:04] VITALS: BP 129/99; PULSE 102
== END 2021-01-21 10:15 | disposition home or self-care (01) | DRG 871 ==
LOC: JD.ED 21:30 → JD.ICU 01-17 00:24
PROVIDERS: ADMIT Internal Medicine; ATTEND Internal Medicine
DX: A41.9 Sepsis, unspecified organism (principal); E86.0 Dehydration; E10.10 Type 1 diabetes mellitus with ketoacidosis without coma; I10 Essential (primary) hypertension; J30.9 Allergic rhinitis, unspecified; E10.40 Type 1 diabetes mellitus with diabetic neuropathy, unspecified; Z96.41 Presence of insulin pump (external) (internal); J18.9 Pneumonia, unspecified organism; J96.01 Acute respiratory failure with hypoxia; G93.40 Encephalopathy, unspecified; N17.9 Acute kidney failure, unspecified; F14.10 Cocaine abuse, uncomplicated; H54.7 Unspecified visual loss; F32.9 Major depressive disorder, single episode, unspecified; Z86.16 Personal history of COVID-19; Z91.19 Patient's noncompliance with other medical treatment and regimen; N18.9 Chronic kidney disease, unspecified; I12.9 Hypertensive chronic kidney disease with stage 1 through stage 4 chronic kidney disease, or unspecified chronic kidney disease; Z87.01 Personal history of pneumonia (recurrent); F12.10 Cannabis abuse, uncomplicated; R16.0 Hepatomegaly, not elsewhere classified; D69.6 Thrombocytopenia, unspecified; Z20.822 Contact with and (suspected) exposure to COVID-19; E10.21 Type 1 diabetes mellitus with diabetic nephropathy
CPT/HCPCS: 36415 ×2; 36600; 71045; 80048; 80053; 80306; 81001; 82803; 82947 ×2; 83605; 83735; 84100; 84484; 85025; 87040 ×2; 87635; 93005; 96374; 99291; J1815; J7030; J7120 ×3; 51702; 70450; 70450-26; 71250; 71250-26; 74176; 74176-26; 82306; 82728; 83036; 83880; 84145; 85379; 86140; 93306; 99292; A9270-GY; C9113; J0456; J1650; J2405; J2543; J3475; J3480; J3490; J7040; J7042; J7050; J7131; J8540; U0002

== ENCOUNTER 2021-03-06 19:46 | Inpatient (IN) | payer MEDICAID ==
[2021-03-06] MEDS ORDERED: Naloxone 2 MG/2 ML Syringe IVPUSH ONE ×2 (19:50→19:53)
[2021-03-06] MEDS ORDERED: Naloxone 2 MG/2 ML Syringe ONE ×2 (19:50→19:52)
[2021-03-06] MEDS ORDERED: Sodium Chloride 0.9% 1,000 ML IV ONE ×2 (19:58)
--- NOTE | 2021-03-06 20:08 | EDM.PDOC ---
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 Ur Leukocyte Esterase (Negative) Salicylates (2.8-20) mg/dL Urine Opiates Screen (IJFRNA=449) Ur Buprenorphine Scrn (CUTOFF=10) Ur Oxycodone Screen (WVZ3QY=827) Urine Methadone Screen (ZNL9VZ=235) Ur Propoxyphene Screen (ZTWYQZ=975) Acetaminophen (10-30) ug/mL Ur Barbiturates Screen (LLVZKZ=622) Ur Tricyclics Screen (EFLQTE=317) Ur Phencyclidine Scrn (CUTOFF=25) Ur Amphetamine Screen (PWIDAL=667) U Methamphetamines Scrn (YXIEPZ=491) U Benzodiazepines Scrn (EZJEXM=146) U Cocaine Metab Screen (HTYTUJ=973) U Marijuana (THC) Screen (CUTOFF=50) Ethyl Alcohol (0.00) gm% Ketones (0.0-0.3) mM SARS-CoV-2 RNA (MACRINA) (NEGATIVE) Meds: Medications Generic Name Dose Route Start Last Admin Trade Name Freq PRN Reason Stop Dose Admin Insulin Human Regular 100 unit 100 mls @ 4.99 mls/hr 03/06/21 21:00 03/06/21 21:14 / Sodium Chloride IV 0.1 units/kg/hr TITRATE PRINCE 4.99 mls/hr Administration Protocol 0.1 UNITS/KG/HR Sodium Chloride 1,000 mls @ 300 mls/hr 03/06/21 21:45 03/06/21 20:35 Normal Saline IV 300 mls/hr ASDIRECTED PRINCE Administration Sodium Chloride 1,000 mls @ 999 mls/hr 03/06/21 20:35 03/06/21 20:35 Normal Saline IV 999 mls/hr ASDIRECTED PRINCE Administration Sodium Chloride 1,000 mls @ 300 mls/hr 03/07/21 02:30 03/07/21 02:59 Sodium Chloride 0.45% IV 300 mls/hr ASDIRECTED PRINCE Administration Sodium Bicarbonate 100 meq/ 510 mls @ 255 mls/hr 03/07/21 03:30 Potassium Chloride 20 meq/ IV 03/07/21 05:29 Sterile Water ONETIME ONE Sodium Bicarbonate 100 meq/ 510 mls @ 255 mls/hr 03/07/21 05:30 Potassium Chloride 20 meq/ IV 03/07/21 07:29 Sterile Water ONETIME ONE Discontinued Medications Generic Name Dose Route Start Last Admin Trade Name Wendi PRN Reason Stop Dose Admin Sodium Chloride 1,000 mls @ 999 mls/hr 03/06/21 19:58 03/06/21 19:50 Normal Saline IV 03/06/21 20:58 999 mls/hr ONETIME ONE Administration Sodium Chloride 1,000 mls @ 999 mls/hr 03/06/21 19:58 03/06/21 19:57 Normal Saline IV 03/06/21 20:58 999 mls/hr ONETIME ONE Administration Sodium Chloride Confirm 03/06/21 21:03 03/06/21 22:27 Normal Saline Administered 03/06/21 21:04 Not Given Dose 100 mls @ as directed .ROUTE .STK-MED ONE Insulin Human Regular Confirm 03/06/21 21:03 03/06/21 22:27 Insulin Regular, Human 100 Units/Ml 3 Ml Vial Administered 03/06/21 21:04 Not Given Dose 300 unit .ROUTE .STK-MED ONE Naloxone HCl Confirm 03/06/21 19:52 03/06/21 22:27 Naloxone 2 Mg/2 Ml Syringe Administered 03/06/21 19:53 Not Given Dose 2 mg .ROUTE .STK-MED ONE Naloxone HCl 2 mg 03/06/21 19:50 03/06/21 19:50 Naloxone 2 Mg/2 Ml Syringe IVPUSH 03/06/21 19:51 2 mg ONETIME ONE Administration Naloxone HCl 2 mg 03/06/21 19:53 03/06/21 19:53 Naloxone 2 Mg/2 Ml Syringe IVPUSH 03/06/21 19:54 2 mg ONETIME ONE Administration - Re-Assessments/Exams Free Text/Narrative Re-Assessment/Exam: 03/06/21 20:04 As above, the patient was reportedly normal at 7 AM when his girlfriend left for work, but found him to be unresponsive in bed when she returned this evening, feeling cold. EMS found his blood glucose to be over 500, with incontinence of urine. They started an IV, but did not give any medications. Here in the ED, the patient is moaning, and he turned his head towards me when I called his name, but he does not follow any commands. His pupils are dilated. He was given 2 mg + 2 mg IV Narcan, with no change in his condition. Reviewing prior medical records, I see that the patient has had similar presentations numerous times in the past, including most recently on 01/16/2021, due to DKA. I have ordered a work-up that includes numerous blood tests, an ABG, a urinalysis, a urine drug screen, a swab for the SARS-CoV-2 virus, a portable chest x-ray, and an ECG. In the meantime, the patient will be given large volume IV fluid, and, once I see his potassium level, I will start an insulin drip. 03/06/21 21:32 Portable chest radiograph appears to be grossly normal. The cardiac silhouette is within normal limits. No pulmonary vascular congestion. No pleural effusions seen on this AP view. No focal infiltrate. No pneumothorax. Formal read per the Radiologist pending. The patient's CBC is remarkable for leukocytosis of 22.62, with an H/H depressed at 11.6/36.7, and thrombocytosis of 678,000. His CMP is remarkable for a bicarbonate severely depressed at 3, with an anion gap elevated at 40.9. His BUN/Cr are elevated at 26/1.7, with hyperglycemia of 828. His AST/ALT are elevated at 360/653, respectively, with an alkaline phosphatase elevated at 364, and the remainder of his CMP being unremarkable. His magnesium level is mildly elevated 2.5. His lactic acid level is mildly elevated at 2.9. His serum osmolality is elevated at 360. His salicylate level is within normal limits at 8.6. His acetaminophen level is 0. His EtOH level is 0.00. His ABG demonstrates a primary high anion gap metabolic acidosis with secondary respiratory alkalosis and additional metabolic alkalosis. His urine drug screen is positive for cocaine. His urinalysis is remarkable for 2+ protein, 2+ glucose, 4+ ketones, and trace occult blood. His swab for the SARS-CoV-2 virus has not yet resulted. Review of prior labs finds that the patient's BUN/Cr were normal on 01/21/2021. Based on the above, it appears the patient is suffering from a severe hyperosmolar nonketotic hyperglycemia. He is not in DKA. At present, he has received 3 L of NS, and is receiving an insulin drip at 0.1 Units/kg/hr. His 4th L of IVF will run at 300 ml/hr. A repeat lactic acid level will be drawn at 22:50. 03/06/21 23:18 The patient's repeat lactic acid level is 2.2. I have ordered another repeat lactic acid to be drawn at 01:35. 03/07/21 01:07 Notified by Jayashree PEREZ that the patient's 4th L of IV fluid has finished infusing. I have ordered a BMP and ABG. His swab for the SARS-CoV-2 virus returned negative. 03/07/21 02:09 The patient's BMP is remarkable for bicarbonate <5, and BUN/Cr unchanged at 27/1.7, and a blood glucose elevated at 606. His ABG demonstrates a primary metabolic acidosis with appropriately compensated respiratory alkalosis and additional metabolic alkalosis. The patient's ABG has improved a bit since 20:12, when the original ABG was obtained, but not as much as I would have liked. I have ordered an IV infusion consisting of 100 mmol of NaHCO3 in water with 20 mEq of KCl, to be infused over 2 hours. At the same time, he will be given 1/2 NS at 300 ml/hr. 03/07/21 03:04 The patient's third lactic acid returned elevated at 3.9. Case discussed with Dr. Ortiz, Hospitalist, at 02:49. He requested that we check a troponin and a CT of the head without contrast. He accepted the patient for admission to the ICU. I have ordered a 4th lactic acid level to be drawn at 04:20. 03/07/21 03:59 The patient's troponin is undetectably low. He has already been transferred to the ICU. Departure - Departure Time of Disposition: 04:00 Disposition: Admitted As Inpatient 68 Condition: Serious Clinical Impression: Hyperglycemic hyperosmolar nonketotic coma, High anion gap metabolic acidosis, Cocaine abuse, Acute renal insufficiency - Discharge Information *PRESCRIPTION DRUG MONITORING PROGRAM REVIEWED*: No *COPY OF PRESCRIPTION DRUG MONITORING REPORT IN PATIENT [place]ENNOX: No Sepsis Event Note (ED) - Focused Exam Vital Signs: Vital Signs Temp Pulse Resp BP Pulse Ox 03/06/21 21:06 36.1 C 98 33 H 96/49 L 100 - My Orders Last 24 Hours: My Active Orders 03/06/21 19:59 EKG Documentation Completion [RC] STAT 03/06/21 20:00 Insert Patel Catheter [Insert 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] [OM.PC] Q24H 03/06/21 20:12 BLOOD GAS ARTERIAL [BG] Stat 03/06/21 20:35 Sodium Chloride 0.9% [Normal Saline] 1,000 ml IV ASDIRECTED 03/06/21 21:00 Insulin Regular, Human [HumuLIN R] 100 unit Sodium Chloride 0.9% [Normal Saline] 99 ml IV TITRATE 03/06/21 21:45 Sodium Chloride 0.9% [Normal Saline] 1,000 ml IV ASDIRECTED 03/07/21 01:07 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 Assessment [RC] ASDIRECTED 03/07/21 02:30 Sodium Chloride 0.45% 1,000 ml IV ASDIRECTED 03/07/21 02:58 Head wo Cont [CT] Stat 03/07/21 03:29 Patient Status [ADT] Routine 03/07/21 03:30 Sodium Bicarbonate [Sodium Bicarbonate 8.4%] 100 meq Potassium Chloride 20 meq Water For Injection,Sterile [Sterile Water for Injection] 400 ml IV ONETIME 03/07/21 04:20 LACTIC ACID [CHEM] Timed 03/07/21 05:30 Sodium Bicarbonate [Sodium Bicarbonate 8.4%] 100 meq Potassium Chloride 20 meq Water For Injection,Sterile [Sterile Water for Injection] 400 ml IV ONETIME - Assessment/Plan Last 24 Hours: My Active Orders 03/06/21 19:59 EKG Documentation Completion [RC] STAT 03/06/21 20:00 Insert Patel Catheter [Insert 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] [OM.PC] Q24H 03/06/21 20:12 BLOOD GAS ARTERIAL [BG] Stat 03/06/21 20:35 Sodium Chloride 0.9% [Normal Saline] 1,000 ml IV ASDIRECTED 03/06/21 21:00 Insulin Regular, Human [HumuLIN R] 100 unit Sodium Chloride 0.9% [Normal Saline] 99 ml IV TITRATE 03/06/21 21:45 Sodium Chloride 0.9% [Normal Saline] 1,000 ml IV ASDIRECTED 03/07/21 01:07 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 Assessment [RC] ASDIRECTED 03/07/21 02:30 Sodium Chloride 0.45% 1,000 ml IV ASDIRECTED 03/07/21 02:58 Head wo Cont [CT] Stat 03/07/21 03:29 Patient Status [ADT] Routine 03/07/21 03:30 Sodium Bicarbonate [Sodium Bicarbonate 8.4%] 100 meq Potassium Chloride 20 meq Water For Injection,Sterile [Sterile Water for Injection] 400 ml IV ONETIME 03/07/21 04:20 LACTIC ACID [CHEM] Timed 03/07/21 05:30 Sodium Bicarbonate [Sodium Bicarbonate 8.4%] 100 meq Potassium Chloride 20 meq Water For Injection,Sterile [Sterile Water for Injection] 400 ml IV ONETIME
--- NOTE | 2021-03-06 20:27 | CR ---
Chest: Portable view of the chest was obtained. Comparison: Chest x-ray of 01/17/[address] study of 01/17/21 Heart size and mediastinum are normal. Lungs are clear with no definite acute parenchymal change. Bony structures are grossly intact. Impression: 1. Nothing acute is seen on portable chest x-ray. Diagnostic code #1
[2021-03-06] MEDS ORDERED: Sodium Chloride 0.9% 1,000 ML IV SCH ×2 (20:35→21:45)
[2021-03-06 20:46] LABS: ACETAMINOPHEN 0 ug/mL (10-30)
[2021-03-06] MEDS ORDERED: Insulin Regular, Human 100 Units/ML 3 ML Vial ONE (21:03)
[2021-03-06] MEDS ORDERED: Sodium Chloride 0.9% 100 ML ONE (21:03)
[2021-03-07] MEDS ORDERED: Sodium Chloride 0.45% 1,000 ML IV SCH (02:30)
[2021-03-07] MEDS ORDERED: SODIUM BICARBONATE IV ONE ×5 (03:00→05:30)
[2021-03-07] MEDS ORDERED: [UNRECOGNIZED DRUG - OTHER] IV ONE (03:00)
[2021-03-07] MEDS ORDERED: POTASSIUM ACETATE IV ONE (03:00)
[2021-03-07] MEDS ORDERED: [UNRECOGNIZED DRUG - OTHER] IV ONE ×4 (03:30→05:30)
[2021-03-07] MEDS ORDERED: POTASSIUM CHLORIDE IV ONE ×4 (03:30→05:30)
[2021-03-07] MEDS ORDERED: Morphine 2 MG/ML SYRINGE IVPUSH PRN (04:13)
[2021-03-07] MEDS ORDERED: Acetaminophen 325 MG Tab PO PRN (04:13)
[2021-03-07] MEDS ORDERED: Ondansetron 4 MG/2 ML SDV IV PRN (04:13)
[2021-03-07] MEDS ORDERED: Albuterol/Ipratropium 3.0-0.5 MG/3 ML Neb Soln NEB PRN (04:13)
[2021-03-07] MEDS ORDERED: Aspirin 325 MG Tab.EC PO ONE (04:30)
[2021-03-07] MEDS ORDERED: Sodium Chloride 0.45% with KCl 1,000 ML IV SCH (04:30)
--- NOTE | 2021-03-07 04:35 | PCM.HP.2 ---
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 PANEL,BMP [CHEM] Q2H Lab 03/08/21 10:25 Ordered BASIC METABOLIC PANEL,BMP [CHEM] Q2H Lab 03/08/21 12:25 Ordered BASIC METABOLIC PANEL,BMP [CHEM] Q2H Lab 03/08/21 14:25 Ordered BASIC METABOLIC PANEL,BMP [CHEM] Q2H Lab 03/08/21 16:25 Ordered BASIC METABOLIC PANEL,BMP [CHEM] Q2H Lab 03/08/21 18:25 Ordered BLOOD GAS ARTERIAL [BG] Stat Lab 03/06/21 20:12 Results CBC WITH AUTO DIFF [HEME] DAILY Lab 03/07/21 05:00 Ordered CBC WITH AUTO DIFF [HEME] DAILY Lab 03/08/21 05:00 Ordered CBC WITH AUTO DIFF [HEME] DAILY Lab 03/09/21 05:00 Ordered CBC WITH AUTO DIFF [HEME] DAILY Lab 03/10/21 05:00 Ordered CBC WITH AUTO DIFF [HEME] DAILY Lab 03/11/21 05:00 Ordered COMPREHENSIVE METABOLIC PN,CMP [CHEM] DAILY Lab 03/07/21 05:00 Ordered COMPREHENSIVE METABOLIC PN,CMP [CHEM] DAILY Lab 03/08/21 05:00 Ordered COMPREHENSIVE METABOLIC PN,CMP [CHEM] DAILY Lab 03/09/21 05:00 Ordered COMPREHENSIVE METABOLIC PN,CMP [CHEM] DAILY Lab 03/10/21 05:00 Ordered COMPREHENSIVE METABOLIC PN,CMP [CHEM] DAILY Lab 03/11/21 05:00 Ordered CULTURE BLOOD [BC] Stat Lab 03/07/21 04:24 Ordered CULTURE BLOOD [BC] Stat Lab 03/07/21 04:24 Ordered ETHYLENE GLYCOL [REF] Stat Lab 03/07/21 03:45 Ordered LACTIC ACID [CHEM] Q6H Lab 03/07/21 05:00 Ordered LACTIC ACID [CHEM] Q6H Lab 03/07/21 11:00 Ordered LACTIC ACID [CHEM] Timed Lab 03/07/21 04:20 Ordered MAGNESIUM [CHEM] DAILY Lab 03/07/21 05:00 Ordered PHOSPHORUS [CHEM] DAILY Lab 03/07/21 05:00 Ordered TROPONIN I [CHEM] DAILY Lab 03/07/21 05:00 Ordered Acetaminophen [TylenoL] Med 03/07/21 04:13 Ordered 325 mg PO Q6H PRN Albuterol/Ipratropium [DuoNeb 3.0-0.5 MG/3 ML] Med 03/07/21 04:13 Ordered 3 ml NEB Q4H PRN Aspirin [Halfprin] Med 03/08/21 09:00 Ordered 81 mg PO DAILY Heparin Sodium Med 03/07/21 04:15 Ordered 5,000 units SUBCUT Q8H Insulin Regular, Human [HumuLIN R] 100 unit Med 03/06/21 21:00 Active Sodium Chloride 0.9% [Normal Saline] 99 ml IV TITRATE Morphine Med 03/07/21 04:13 Ordered 2 mg IVPUSH Q4H PRN Ondansetron [Zofran] Med 03/07/21 04:13 Ordered 4 mg IV Q6H PRN Sodium Bicarbonate [Sodium Bicarbonate 8.4%] 100 meq Med 03/07/21 03:30 Active Potassium Chloride 20 meq Water For Injection,Sterile [Sterile Water for Injection] 400 ml IV ONETIME Sodium Bicarbonate [Sodium Bicarbonate 8.4%] 100 meq Med 03/07/21 05:30 Active Potassium Chloride 20 meq Water For Injection,Sterile [Sterile Water for Injection] 400 ml IV ONETIME Sodium Chloride 0.45% 1,000 ml Med 03/07/21 02:30 Active IV ASDIRECTED Sodium Chloride 0.45% with KCl [1/2 NS with 20 mEq KCl] Med 03/07/21 04:30 Ordered 1,000 ml IV ASDIRECTED Blood Culture x2 Reflex Set [OM.PC] Stat Oth 03/07/21 04:13 Ordered Medication Orders Acetaminophen (Acetaminophen 325 Mg Tab) 325 mg PO Q6H PRN PRN Reason: Pain (Mild 1-3)/fever Albuterol/Ipratropium (Albuterol/Ipratropium 3.0-0.5 Mg/3 Ml Neb Soln) 3 ml NEB Q4H PRN PRN Reason: Shortness Of Breath/wheezing Aspirin (Aspirin 81 Mg Tab.Ec) 81 mg PO DAILY PRINCE Heparin Sodium (Porcine) (Heparin Sodium 5,000 Units/Ml Vial) 5,000 units SUBCUT Q8H [facility] Insulin Human Regular 100 unit (/ Sodium Chloride) 100 mls @ 4.99 mls/hr IV TITRATE PRINCE; Protocol Last Admin: 03/06/21 21:14 Dose: 0.1 units/kg/hr, 4.99 mls/hr Documented by: [email or web address] Cosigned by: [id number] Sodium Chloride (Sodium Chloride 0.45%) 1,000 mls @ 300 mls/hr IV ASDIRECTED [facility] Last Admin: 03/07/21 02:59 Dose: 300 mls/hr Documented by: [id number] Sodium Bicarbonate 100 meq/Potassium Chloride 20 meq/Sterile Water 510 mls @ 255 mls/hr IV ONETIME ONE Stop: 03/07/21 05:29 Last Admin: 03/07/21 04:22 Dose: 255 mls/hr Documented by: [id number] Sodium Bicarbonate 100 meq/Potassium Chloride 20 meq/Sterile Water 510 mls @ 255 mls/hr IV ONETIME ONE Stop: 03/07/21 07:29 Potassium Chloride/Sodium Chloride (1/2 Ns With 20 Meq Kcl) 1,000 mls @ 100 mls/hr IV ASDIRECTED [facility] Morphine Sulfate (Morphine 2 Mg/Ml Syringe) 2 mg IVPUSH Q4H PRN PRN Reason: Pain (Severe 4-10) Stop: 03/08/21 04:19 Ondansetron HCl (Ondansetron 4 Mg/2 Ml Sdv) 4 mg IV Q6H PRN PRN Reason: Nausea/Vomiting Assessment/Plan Comment:: Patient is a 26-year-old male with a history of type 1 diabetes, substance abuse, medical noncompliance and history of DKA who was brought to the ER due to AMS. Pt was admitted to our hospital with similar presentation. Assessment and plan: AMS -Etiology unknown. Could be due to metabolic encephalopathy, dehydration, substance abuse, infection, stroke from use of cocaine, etc -CT of head pending -Blood culture -IV fluid -Monitoring in ICU DKA DM type 1 -pH 6.74, HCO3 3.0, AG 40.9 -Calculated serum osmolality: 319 -measured serum osmolality: 360 -Corrected Na: 150-155 mEq/L -Bicarbonate 100 mEq was given -DKA protocol initiated -Diabetic education Hypotension -4L NS/LR were given in the ER -continue ivf -norepinephrine prn to maintain MAP 65 Cocaine abuse -Urine drug screen positive for cocaine -aspirin -serum osmolality is elevated at 360. -salicylate level is within normal limits at 8.6. -acetaminophen level is 0. -EtOH level is 0.00. -ethylene glycol pending -methanol (not available for the test) -ax survey worker consult Tobacco abuse disorder -Smoking cessation counseling -Nicotine patch if necessary Medical non-comliance -ax survey worker counseling Leukocytosis -WBC 22.62 -No evidence of infection -Chest x-ray no acute change -Urinalysis not compatible with UTI -No antibiotics FABIOLA -creatinine 1.7 on admission. It was 0.7 on 01/21/2021 -Most likely due to prerenal cause -Avoid nephrotoxic meds -IV fluid -Repeat the renal function morning Elevation of liver enzymes -AST 360, ALT 653, Alk phos 364, Tbil 1.0 -Repeat the liver function in morning pH 6.74, HCO3 3.0, AG 40.9 Calculated serum osmolality: 319 measured serum osmolality: 360 Corrected Na: 150-155 mEq/L DVT prophylaxis: Heparin - Mortality Measure Prognosis:: Good
[2021-03-07] MEDS: Heparin Sodium 5,000 Units/ML Vial SUBCUT SCH ×3 (05:04→20:52)
[2021-03-07] MEDS ORDERED: Norepinephrine 4 MG in Dextrose 5% in Water 246 ML IV PRN ×2 (06:07)
[2021-03-07] MEDS: D5 1/2 NS w/ 20 mEq/L KCl 1,000 ML IV SCH ×2 (07:22→17:13)
--- NOTE | 2021-03-07 09:33 | CT ---
Head CT Technique: Multiple axial sections through the brain were obtained. Intravenous contrast was not utilized. Reconstructed coronal and sagittal images were obtained. Comparison: Prior head CT study of 01/17/21. Findings: Ventricles along with basal cisterns and sulci over the convexities are within normal limits for the patient's age. No abnormal parenchymal densities are seen. No evidence of intracranial hemorrhage. No midline shift or mass-effect is seen. Bone window settings were reviewed. Visualized mastoid and paranasal sinuses are without acute abnormality. No acute calvarial abnormality is seen. Impression: 1. Nothing acute is seen on noncontrast head CT study. 2. No change is seen from previous exam. Diagnostic code #1 I agree with preliminary report from [facility], finalized on 03/07/21, 6:38 AM CDT, code 1
[2021-03-07] MEDS: Metoprolol Tartrate 25 MG Tab PO SCH (16:58)
[2021-03-08] MEDS: D5 1/2 NS w/ 20 mEq/L KCl 1,000 ML IV SCH ×2 (03:31→13:36)
[2021-03-08] MEDS: Heparin Sodium 5,000 Units/ML Vial SUBCUT SCH ×3 (04:32→20:12)
[2021-03-08] MEDS: Metoprolol Tartrate 25 MG Tab PO SCH ×2 (04:33→17:01)
[2021-03-08] MEDS: Aspirin 81 MG Tab.EC PO SCH (09:34)
--- NOTE | 2021-03-08 12:49 | PCM.SN.2 ---
- Free Text/Narrative Note: Tal note: date of service: 03/08/2021 Patient is a 26-year-old male with a history of type 1 diabetes, substance abuse, medical noncompliance and history of DKA who was brought to the ER due to AMS. Patient was admitted to the hospital recently for DKA and again for this time. Patient feels better. He is hungry. He is still on insulin drip and n.p.o. Vital signs are stable and acceptable WBC 5.07, platelets 197 Potassium 4.0, creatinine 1.4, anion gap 19, bicarbonate 18 Lactic acid of 6.2 Systems Review Comment:: General: Reports: weakness HEENT: Reports: No Symptoms Pulmonary: Reports: No Symptoms Cardiovascular: Reports: No Symptoms Gastrointestinal: Reports: No Symptoms Genitourinary: Reports: No Symptoms Musculoskeletal: Reports: No Symptoms Skin: Reports: No Symptoms Psychiatric: Reports: No Symptoms Neurological: Reports: No Symptoms Hematologic/Lymphatic: Reports: No Symptoms Immunologic: Reports: No Symptoms Physical Exam: General: No acute distress HEENT: Conjunctiva Clear, EOMI, Mucosa Moist & [place] Neck: Supple, Trachea Midline, NO JVD Lungs: CTA, normal Respiratory Effort, no Wheezing Cardiovascular: Regular Rate, Regular Rhythm GI/Abdominal Exam: Normal Bowel Sounds, Soft, Non-Tender, No Organomegaly, No Distention, No Abnormal Bruit, No Mass Extremities: Normal Inspection, Non-Tender, No Pedal Edema Skin: Warm, Dry, Intact Neurology: A+O x 3, no focal neurological deficits Psychiatric: Normal Mood Assessment/Plan Comment:: Patient is a 26-year-old male with a history of type 1 diabetes, substance abuse, medical noncompliance and history of DKA who was brought to the ER due to AMS. Pt was admitted to our hospital with similar presentation. AMS - improved/resolved -Etiology unknown. Could be due to metabolic encephalopathy, dehydration, substance abuse, infection, stroke from use of cocaine, etc -CT of head - no acute change -Blood culture negative -IV fluid -Monitoring in ICU DKA DM type 1 -Potassium 4.0, creatinine 1.4, anion gap 19, bicarbonate 18 -continue DKA protocol: continue insulin drip and KCl 20mEq D5 1/2 NS 100ml/hr -Diabetic education Hypotension - improved/resolved -continue ivf -norepinephrine prn to maintain MAP 65 Cocaine abuse -Urine drug screen positive for cocaine -aspirin -serum osmolality is elevated at 360. -salicylate level is within normal limits at 8.6. -acetaminophen level is 0. -EtOH level is 0.00. -ethylene glycol pending -methanol (not available for the test) -restaurant worker consult Tobacco abuse disorder -Smoking cessation counseling -Nicotine patch if necessary Medical non-comliance -restaurant worker counseling Leukocytosis -WBC 22.62 on admission -normalized -No evidence of infection -Chest x-ray no acute change -Urinalysis not compatible with UTI -No antibiotics FABIOLA -creatinine 1.7 on admission. It was 0.7 on 01/21/2021 -Most likely due to prerenal cause -Avoid nephrotoxic meds -IV fluid -Creatinine 1.4 today -Repeat the renal function morning Elevation of liver enzymes -AST 360, ALT 653, Alk phos 364, Tbil 1.0 -Repeat the liver function in morning DVT prophylaxis: Heparin
--- NOTE | 2021-03-08 13:05 | PCM.SN.2 ---
- Free Text/Narrative Note: Pt feels depressed. Noah consult was requested. But pt refused to see the furniture sales consultant.
[2021-03-09] MEDS: D5 1/2 NS w/ 20 mEq/L KCl 1,000 ML IV SCH ×3 (00:10→23:09)
[2021-03-09] MEDS: Heparin Sodium 5,000 Units/ML Vial SUBCUT SCH ×2 (04:35→11:38)
[2021-03-09] MEDS: Metoprolol Tartrate 25 MG Tab PO SCH ×2 (04:40→16:11)
[2021-03-09] MEDS: Aspirin 81 MG Tab.EC PO SCH (08:50)
[2021-03-09] MEDS: guaiFENesin/Dextromethorphan 100-10 MG/5 ML Soln 5 ML Cup PO PRN ×2 (08:50→19:55)
--- NOTE | 2021-03-09 09:28 | CR ---
Chest: Portable view of the chest was obtained. Comparison: Prior chest x-ray of 03/06/21. Heart size and mediastinum are within normal limits for portable technique. Lung markings are mildly increased within the left perihilar region and lesser within the right perihilar region which has the appearance of probable bronchitis. No other acute parenchymal change is appreciated. Bony structures are unremarkable. Impression: 1. Probable bronchitis, worse within the left perihilar region. Diagnostic code 3
[2021-03-09] MEDS ORDERED: Azithromycin 250 MG Tab PO ONE (10:26)
[2021-03-09] MEDS ORDERED: Promethazine 12.5 MG in Sodium Chloride 0.9% 50 ML IV PRN (10:29)
--- NOTE | 2021-03-09 11:55 | PCM.PN ---
- General Info Date of Service: 03/09/21 Admission Dx/Problem (Free Text): Admission Diagnosis/Problem Admission Diagnosis/Problem Diabetic ketoacidosis Subjective Update: Patient is a 26-year-old male with a history of type 1 diabetes, substance abuse, medical noncompliance and history of DKA who was brought to the ER due to AMS. Patient was admitted to the hospital recently for DKA and again for this time. Patient feels fine. He is hungry. He is still on insulin drip and n.p.o. Vital signs are stable and acceptable Hemoglobin 9.3, platelets of 156 Anion gap 18.4 Creatinine 1.1 AST 326, ALT 436, total bilirubin 0.4, alkaline phos 248 Lactic acid 1.1 - Review of Systems Systems Review Comment:: General: Reports: weakness HEENT: Reports: No Symptoms Pulmonary: Reports: No Symptoms Cardiovascular: Reports: No Symptoms Gastrointestinal: Reports: No Symptoms Genitourinary: Reports: No Symptoms Musculoskeletal: Reports: No Symptoms Skin: Reports: No Symptoms Psychiatric: Reports: No Symptoms Neurological: Reports: No Symptoms Hematologic/Lymphatic: Reports: No Symptoms Immunologic: Reports: No Symptoms - Patient Data Vitals - Most Recent: Last Vital Signs Temp 36.1 C 03/09/21 11:45 Pulse 73 03/09/21 10:00 Resp 15 03/09/21 11:45 BP 120/93 H 03/09/21 11:45 Pulse Ox 87 L 03/09/21 11:45 Weight - Most Recent: 57.198 kg I&O - Last 24 Hours: Intake & Output 03/08/21 03/09/21 03/09/21 22:59 06:59 14:59 Intake Total 1717 1536 Output Total 250 Balance 1467 1536 Lab Results Last 24 Hours: Laboratory Results - last 24 hr 03/08/21 03/08/21 03/08/21 Range/Units 12:28 13:25 14:31 WBC (4.23-9.07) K/mm3 RBC (4.63-6.08) M/mm3 Hgb (13.7-17.5) gm/dl Hct (40.1-51.0) % MCV (79.0-92.2) fl MCH (25.7-32.2) pg MCHC (32.2-35.5) g/dl RDW Std Deviation (35.1-43.9) fL Plt Count (163-337) K/mm3 MPV (9.4-12.3) fl Neut % (Auto) (34.0-67.9) % Lymph % (Auto) (21.8-53.1) % [place] % (Auto) (5.3-12.2) % Eos % (Auto) (0.8-7.0) Baso % (Auto) (0.1-1.2) % Neut # (Auto) (1.78-5.38) K/mm3 Lymph # (Auto) (1.32-3.57) K/mm3 [place] # (Auto) (0.30-0.82) K/mm3 Eos # (Auto) (0.04-0.54) K/mm3 Baso # (Auto) (0.01-0.08) K/mm3 Sodium (136-145) mEq/L Potassium (3.5-5.1) mEq/L Chloride (98-107) mEq/L Carbon Dioxide (21-32) mEq/L Anion Gap (5-15) BUN (7-18) mg/dL Creatinine (0.7-1.3) mg/dL Est Cr Clr Drug Dosing mL/min Estimated GFR (MDRD) (>60) mL/min BUN/Creatinine Ratio (14-18) Glucose (70-99) mg/dL POC Glucose 102 H 103 H 166 H (70-99) mg/dL Lactic Acid (0.4-2.0) mmol/L Calcium (8.5-10.1) mg/dL Total Bilirubin (0.2-1.0) mg/dL AST (15-37) U/L ALT (16-63) U/L Alkaline Phosphatase (46-116) U/L Total Protein (6.4-8.2) g/dl Albumin (3.4-5.0) g/dl Globulin gm/dL Albumin/Globulin Ratio (1-2) 03/08/21 03/08/21 03/08/21 Range/Units 14:52 15:30 16:41 WBC (4.23-9.07) K/mm3 RBC (4.63-6.08) M/mm3 Hgb (13.7-17.5) gm/dl Hct (40.1-51.0) % MCV (79.0-92.2) fl MCH (25.7-32.2) pg MCHC (32.2-35.5) g/dl RDW Std Deviation (35.1-43.9) fL Plt Count (163-337) K/mm3 MPV (9.4-12.3) fl Neut % (Auto) (34.0-67.9) % Lymph % (Auto) (21.8-53.1) % [place] % (Auto) (5.3-12.2) % Eos % (Auto) (0.8-7.0) Baso % (Auto) (0.1-1.2) % Neut # (Auto) (1.78-5.38) K/mm3 Lymph # (Auto) (1.32-3.57) K/mm3 [place] # (Auto) (0.30-0.82) K/mm3 Eos # (Auto) (0.04-0.54) K/mm3 Baso # (Auto) (0.01-0.08) K/mm3 Sodium 143 (136-145) mEq/L Potassium 3.7 (3.5-5.1) mEq/L Chloride 109 H (98-107) mEq/L Carbon Dioxide 19 L (21-32) mEq/L Anion Gap 18.7 H (5-15) BUN 13 (7-18) mg/dL Creatinine 1.1 (0.7-1.3) mg/dL Est Cr Clr Drug Dosing 81.98 mL/min Estimated GFR (MDRD) > 60 (>60) mL/min BUN/Creatinine Ratio 11.8 L (14-18) Glucose 199 H (70-99) mg/dL POC Glucose 235 H (70-99) mg/dL Lactic Acid 1.1 (0.4-2.0) mmol/L Calcium 7.3 L (8.5-10.1) mg/dL Total Bilirubin (0.2-1.0) mg/dL AST (15-37) U/L ALT (16-63) U/L Alkaline Phosphatase (46-116) U/L Total Protein (6.4-8.2) g/dl Albumin (3.4-5.0) g/dl Globulin gm/dL Albumin/Globulin Ratio (1-2) 03/08/21 03/08/21 03/08/21 Range/Units 16:41 17:29 18:28 WBC (4.23-9.07) K/mm3 RBC (4.63-6.08) M/mm3 Hgb (13.7-17.5) gm/dl Hct (40.1-51.0) % MCV (79.0-92.2) fl MCH (25.7-32.2) pg MCHC (32.2-35.5) g/dl RDW Std Deviation (35.1-43.9) fL Plt Count (163-337) K/mm3 MPV (9.4-12.3) fl Neut % (Auto) (34.0-67.9) % Lymph % (Auto) (21.8-53.1) % [place] % (Auto) (5.3-12.2) % Eos % (Auto) (0.8-7.0) Baso % (Auto) (0.1-1.2) % Neut # (Auto) (1.78-5.38) K/mm3 Lymph # (Auto) (1.32-3.57) K/mm3 [place] # (Auto) (0.30-0.82) K/mm3 Eos # (Auto) (0.04-0.54) K/mm3 Baso # (Auto) (0.01-0.08) K/mm3 Sodium (136-145) mEq/L Potassium (3.5-5.1) mEq/L Chloride (98-107) mEq/L Carbon Dioxide (21-32) mEq/L Anion Gap (5-15) BUN (7-18) mg/dL Creatinine (0.7-1.3) mg/dL Est Cr Clr Drug Dosing mL/min Estimated GFR (MDRD) (>60) mL/min BUN/Creatinine Ratio (14-18) Glucose (70-99) mg/dL POC Glucose 288 H 269 H 229 H (70-99) mg/dL Lactic Acid (0.4-2.0) mmol/L Calcium (8.5-10.1) mg/dL Total Bilirubin (0.2-1.0) mg/dL AST (15-37) U/L ALT (16-63) U/L Alkaline Phosphatase (46-116) U/L Total Protein (6.4-8.2) g/dl Albumin (3.4-5.0) g/dl Globulin gm/dL Albumin/Globulin Ratio (1-2) 03/08/21 03/08/21 03/08/21 Range/Units 18:56 19:33 20:28 WBC (4.23-9.07) K/mm3 RBC (4.63-6.08) M/mm3 Hgb (13.7-17.5) gm/dl Hct (40.1-51.0) % MCV (79.0-92.2) fl MCH (25.7-32.2) pg MCHC (32.2-35.5) g/dl RDW Std Deviation (35.1-43.9) fL Plt Count (163-337) K/mm3 MPV (9.4-12.3) fl Neut % (Auto) (34.0-67.9) % Lymph % (Auto) (21.8-53.1) % [place] % (Auto) (5.3-12.2) % Eos % (Auto) (0.8-7.0) Baso % (Auto) (0.1-1.2) % Neut # (Auto) (1.78-5.38) K/mm3 Lymph # (Auto) (1.32-3.57) K/mm3 [place] # (Auto) (0.30-0.82) K/mm3 Eos # (Auto) (0.04-0.54) K/mm3 Baso # (Auto) (0.01-0.08) K/mm3 Sodium 142 (136-145) mEq/L Potassium 4.0 (3.5-5.1) mEq/L Chloride 108 H (98-107) mEq/L Carbon Dioxide 17 L (21-32) mEq/L Anion Gap 21.0 H (5-15) BUN 13 (7-18) mg/dL Creatinine 1.3 (0.7-1.3) mg/dL Est Cr Clr Drug Dosing 69.37 mL/min Estimated GFR (MDRD) > 60 (>60) mL/min BUN/Creatinine Ratio 10.0 L (14-18) Glucose 254 H (70-99) mg/dL POC Glucose 237 H 218 H (70-99) mg/dL Lactic Acid (0.4-2.0) mmol/L Calcium 7.5 L (8.5-10.1) mg/dL Total Bilirubin (0.2-1.0) mg/dL AST (15-37) U/L ALT (16-63) U/L Alkaline Phosphatase (46-116) U/L Total Protein (6.4-8.2) g/dl Albumin (3.4-5.0) g/dl Globulin gm/dL Albumin/Globulin Ratio (1-2) 03/08/21 03/08/21 03/08/21 Range/Units 21:32 22:34 22:50 WBC (4.23-9.07) K/mm3 RBC (4.63-6.08) M/mm3 Hgb (13.7-17.5) gm/dl Hct (40.1-51.0) % MCV (79.0-92.2) fl MCH (25.7-32.2) pg MCHC (32.2-35.5) g/dl RDW Std Deviation (35.1-43.9) fL Plt Count (163-337) K/mm3 MPV (9.4-12.3) fl Neut % (Auto) (34.0-67.9) % Lymph % (Auto) (21.8-53.1) % [place] % (Auto) (5.3-12.2) % Eos % (Auto) (0.8-7.0) Baso % (Auto) (0.1-1.2) % Neut # (Auto) (1.78-5.38) K/mm3 Lymph # (Auto) (1.32-3.57) K/mm3 [place] # (Auto) (0.30-0.82) K/mm3 Eos # (Auto) (0.04-0.54) K/mm3 Baso # (Auto) (0.01-0.08) K/mm3 Sodium 139 (136-145) mEq/L Potassium 3.9 (3.5-5.1) mEq/L Chloride 107 (98-107) mEq/L Carbon Dioxide 19 L (21-32) mEq/L Anion Gap 16.9 H (5-15) BUN 12 (7-18) mg/dL Creatinine 1.2 (0.7-1.3) mg/dL Est Cr Clr Drug Dosing 75.15 mL/min Estimated GFR (MDRD) > 60 (>60) mL/min BUN/Creatinine Ratio 10.0 L (14-18) Glucose 263 H (70-99) mg/dL POC Glucose 248 H 262 H (70-99) mg/dL Lactic Acid (0.4-2.0) mmol/L Calcium 7.3 L (8.5-10.1) mg/dL Total Bilirubin (0.2-1.0) mg/dL AST (15-37) U/L ALT (16-63) U/L Alkaline Phosphatase (46-116) U/L Total Protein (6.4-8.2) g/dl Albumin (3.4-5.0) g/dl Globulin gm/dL Albumin/Globulin Ratio (1-2) 03/08/21 03/09/21 03/09/21 Range/Units 23:31 00:34 01:31 WBC (4.23-9.07) K/mm3 RBC (4.63-6.08) M/mm3 Hgb (13.7-17.5) gm/dl Hct (40.1-51.0) % MCV (79.0-92.2) fl MCH (25.7-32.2) pg MCHC (32.2-35.5) g/dl RDW Std Deviation (35.1-43.9) fL Plt Count (163-337) K/mm3 MPV (9.4-12.3) fl Neut % (Auto) (34.0-67.9) % Lymph % (Auto) (21.8-53.1) % [place] % (Auto) (5.3-12.2) % Eos % (Auto) (0.8-7.0) Baso % (Auto) (0.1-1.2) % Neut # (Auto) (1.78-5.38) K/mm3 Lymph # (Auto) (1.32-3.57) K/mm3 [place] # (Auto) (0.30-0.82) K/mm3 Eos # (Auto) (0.04-0.54) K/mm3 Baso # (Auto) (0.01-0.08) K/mm3 Sodium (136-145) mEq/L Potassium (3.5-5.1) mEq/L Chloride (98-107) mEq/L Carbon Dioxide (21-32) mEq/L Anion Gap (5-15) BUN (7-18) mg/dL Creatinine (0.7-1.3) mg/dL Est Cr Clr Drug Dosing mL/min Estimated GFR (MDRD) (>60) mL/min BUN/Creatinine Ratio (14-18) Glucose (70-99) mg/dL POC Glucose 232 H 222 H 228 H (70-99) mg/dL Lactic Acid (0.4-2.0) mmol/L Calcium (8.5-10.1) mg/dL Total Bilirubin (0.2-1.0) mg/dL AST (15-37) U/L ALT (16-63) U/L Alkaline Phosphatase (46-116) U/L Total Protein (6.4-8.2) g/dl Albumin (3.4-5.0) g/dl Globulin gm/dL Albumin/Globulin Ratio (1-2) 03/09/21 03/09/21 03/09/21 Range/Units 02:34 03:37 04:34 WBC (4.23-9.07) K/mm3 RBC (4.63-6.08) M/mm3 Hgb (13.7-17.5) gm/dl Hct (40.1-51.0) % MCV (79.0-92.2) fl MCH (25.7-32.2) pg MCHC (32.2-35.5) g/dl RDW Std Deviation (35.1-43.9) fL Plt Count (163-337) K/mm3 MPV (9.4-12.3) fl Neut % (Auto) (34.0-67.9) % Lymph % (Auto) (21.8-53.1) % [place] % (Auto) (5.3-12.2) % Eos % (Auto) (0.8-7.0) Baso % (Auto) (0.1-1.2) % Neut # (Auto) (1.78-5.38) K/mm3 Lymph # (Auto) (1.32-3.57) K/mm3 [place] # (Auto) (0.30-0.82) K/mm3 Eos # (Auto) (0.04-0.54) K/mm3 Baso # (Auto) (0.01-0.08) K/mm3 Sodium (136-145) mEq/L Potassium (3.5-5.1) mEq/L Chloride (98-107) mEq/L Carbon Dioxide (21-32) mEq/L Anion Gap (5-15) BUN (7-18) mg/dL Creatinine (0.7-1.3) mg/dL Est Cr Clr Drug Dosing mL/min Estimated GFR (MDRD) (>60) mL/min BUN/Creatinine Ratio (14-18) Glucose (70-99) mg/dL POC Glucose 228 H 252 H 238 H (70-99) mg/dL Lactic Acid (0.4-2.0) mmol/L Calcium (8.5-10.1) mg/dL Total Bilirubin (0.2-1.0) mg/dL AST (15-37) U/L ALT (16-63) U/L Alkaline Phosphatase (46-116) U/L Total Protein (6.4-8.2) g/dl Albumin (3.4-5.0) g/dl Globulin gm/dL Albumin/Globulin Ratio (1-2) 03/09/21 03/09/21 03/09/21 Range/Units 04:55 04:55 05:33 WBC 4.82 (4.23-9.07) K/mm3 RBC 3.03 L (4.63-6.08) M/mm3 Hgb 9.3 L (13.7-17.5) gm/dl Hct 28.7 L (40.1-51.0) % MCV 94.7 H (79.0-92.2) fl MCH 30.7 (25.7-32.2) pg MCHC 32.4 (32.2-35.5) g/dl RDW Std Deviation 47.2 H (35.1-43.9) fL Plt Count 156 L (163-337) K/mm3 MPV 8.5 L (9.4-12.3) fl Neut % (Auto) 50.5 (34.0-67.9) % Lymph % (Auto) 37.1 (21.8-53.1) % [place] % (Auto) 11.0 (5.3-12.2) % Eos % (Auto) 0.8 (0.8-7.0) Baso % (Auto) 0.4 (0.1-1.2) % Neut # (Auto) 2.43 (1.78-5.38) K/mm3 Lymph # (Auto) 1.79 (1.32-3.57) K/mm3 [place] # (Auto) 0.53 (0.30-0.82) K/mm3 Eos # (Auto) 0.04 (0.04-0.54) K/mm3 Baso # (Auto) 0.02 (0.01-0.08) K/mm3 Sodium 138 (136-145) mEq/L Potassium 4.4 (3.5-5.1) mEq/L Chloride 106 (98-107) mEq/L Carbon Dioxide 18 L (21-32) mEq/L Anion Gap 18.4 H (5-15) BUN 11 (7-18) mg/dL Creatinine 1.1 (0.7-1.3) mg/dL Est Cr Clr Drug Dosing 83.77 mL/min Estimated GFR (MDRD) > 60 (>60) mL/min BUN/Creatinine Ratio 10.0 L (14-18) Glucose 262 H (70-99) mg/dL POC Glucose 260 H (70-99) mg/dL Lactic Acid (0.4-2.0) mmol/L Calcium 7.7 L (8.5-10.1) mg/dL Total Bilirubin 0.4 (0.2-1.0) mg/dL AST 326 H (15-37) U/L ALT 436 H (16-63) U/L Alkaline Phosphatase 248 H (46-116) U/L Total Protein 5.2 L (6.4-8.2) g/dl Albumin 2.2 L (3.4-5.0) g/dl Globulin 3.0 gm/dL Albumin/Globulin Ratio 0.7 L (1-2) 03/09/21 03/09/21 03/09/21 Range/Units 06:35 07:42 08:36 WBC (4.23-9.07) K/mm3 RBC (4.63-6.08) M/mm3 Hgb (13.7-17.5) gm/dl Hct (40.1-51.0) % MCV (79.0-92.2) fl MCH (25.7-32.2) pg MCHC (32.2-35.5) g/dl RDW Std Deviation (35.1-43.9) fL Plt Count (163-337) K/mm3 MPV (9.4-12.3) fl Neut % (Auto) (34.0-67.9) % Lymph % (Auto) (21.8-53.1) % [place] % (Auto) (5.3-12.2) % Eos % (Auto) (0.8-7.0) Baso % (Auto) (0.1-1.2) % Neut # (Auto) (1.78-5.38) K/mm3 Lymph # (Auto) (1.32-3.57) K/mm3 [place] # (Auto) (0.30-0.82) K/mm3 Eos # (Auto) (0.04-0.54) K/mm3 Baso # (Auto) (0.01-0.08) K/mm3 Sodium (136-145) mEq/L Potassium (3.5-5.1) mEq/L Chloride (98-107) mEq/L Carbon Dioxide (21-32) mEq/L Anion Gap (5-15) BUN (7-18) mg/dL Creatinine (0.7-1.3) mg/dL Est Cr Clr Drug Dosing mL/min Estimated GFR (MDRD) (>60) mL/min BUN/Creatinine Ratio (14-18) Glucose (70-99) mg/dL POC Glucose 227 H 226 H 198 H (70-99) mg/dL Lactic Acid (0.4-2.0) mmol/L Calcium (8.5-10.1) mg/dL Total Bilirubin (0.2-1.0) mg/dL AST (15-37) U/L ALT (16-63) U/L Alkaline Phosphatase (46-116) U/L Total Protein (6.4-8.2) g/dl Albumin (3.4-5.0) g/dl Globulin gm/dL Albumin/Globulin Ratio (1-2) 03/09/21 03/09/21 03/09/21 Range/Units 09:13 09:35 10:29 WBC (4.23-9.07) K/mm3 RBC (4.63-6.08) M/mm3 Hgb (13.7-17.5) gm/dl Hct (40.1-51.0) % MCV (79.0-92.2) fl MCH (25.7-32.2) pg MCHC (32.2-35.5) g/dl RDW Std Deviation (35.1-43.9) fL Plt Count (163-337) K/mm3 MPV (9.4-12.3) fl Neut % (Auto) (34.0-67.9) % Lymph % (Auto) (21.8-53.1) % [place] % (Auto) (5.3-12.2) % Eos % (Auto) (0.8-7.0) Baso % (Auto) (0.1-1.2) % Neut # (Auto) (1.78-5.38) K/mm3 Lymph # (Auto) (1.32-3.57) K/mm3 [place] # (Auto) (0.30-0.82) K/mm3 Eos # (Auto) (0.04-0.54) K/mm3 Baso # (Auto) (0.01-0.08) K/mm3 Sodium 138 (136-145) mEq/L Potassium 3.9 (3.5-5.1) mEq/L Chloride 105 (98-107) mEq/L Carbon Dioxide 18 L (21-32) mEq/L Anion Gap 18.9 H (5-15) BUN 11 (7-18) mg/dL Creatinine 1.0 (0.7-1.3) mg/dL Est Cr Clr Drug Dosing 92.15 mL/min Estimated GFR (MDRD) > 60 (>60) mL/min BUN/Creatinine Ratio 11.0 L (14-18) Glucose 217 H (70-99) mg/dL POC Glucose 203 H 181 H (70-99) mg/dL Lactic Acid (0.4-2.0) mmol/L Calcium 7.4 L (8.5-10.1) mg/dL Total Bilirubin 0.5 (0.2-1.0) mg/dL AST 330 H (15-37) U/L ALT 423 H (16-63) U/L Alkaline Phosphatase 254 H (46-116) U/L Total Protein 5.4 L (6.4-8.2) g/dl Albumin 2.3 L (3.4-5.0) g/dl Globulin 3.1 gm/dL Albumin/Globulin Ratio 0.7 L (1-2) 03/09/21 Range/Units 11:27 WBC (4.23-9.07) K/mm3 RBC (4.63-6.08) M/mm3 Hgb (13.7-17.5) gm/dl Hct (40.1-51.0) % MCV (79.0-92.2) fl MCH (25.7-32.2) pg MCHC (32.2-35.5) g/dl RDW Std Deviation (35.1-43.9) fL Plt Count (163-337) K/mm3 MPV (9.4-12.3) fl Neut % (Auto) (34.0-67.9) % Lymph % (Auto) (21.8-53.1) % [place] % (Auto) (5.3-12.2) % Eos % (Auto) (0.8-7.0) Baso % (Auto) (0.1-1.2) % Neut # (Auto) (1.78-5.38) K/mm3 Lymph # (Auto) (1.32-3.57) K/mm3 [place] # (Auto) (0.30-0.82) K/mm3 Eos # (Auto) (0.04-0.54) K/mm3 Baso # (Auto) (0.01-0.08) K/mm3 Sodium (136-145) mEq/L Potassium (3.5-5.1) mEq/L Chloride (98-107) mEq/L Carbon Dioxide (21-32) mEq/L Anion Gap (5-15) BUN (7-18) mg/dL Creatinine (0.7-1.3) mg/dL Est Cr Clr Drug Dosing mL/min Estimated GFR (MDRD) (>60) mL/min BUN/Creatinine Ratio (14-18) Glucose (70-99) mg/dL POC Glucose 170 H (70-99) mg/dL Lactic Acid (0.4-2.0) mmol/L Calcium (8.5-10.1) mg/dL Total Bilirubin (0.2-1.0) mg/dL AST (15-37) U/L ALT (16-63) U/L Alkaline Phosphatase (46-116) U/L Total Protein (6.4-8.2) g/dl Albumin (3.4-5.0) g/dl Globulin gm/dL Albumin/Globulin Ratio (1-2) Rosalio Results Last 24 Hours: Microbiology 03/07/21 06:30 Aerobic Blood Culture - Preliminary Blood - Venous - Lab Draw NO GROWTH AFTER 2 DAYS Anaerobic Blood Culture - Preliminary NO GROWTH AFTER 2 DAYS 03/07/21 05:10 Aerobic Blood Culture - Preliminary Blood - Venous NO GROWTH AFTER 2 DAYS Anaerobic Blood Culture - Final Med Orders - Current: Current Medications Acetaminophen (Acetaminophen 325 Mg Tab) 325 mg PO Q6H PRN PRN Reason: Pain (Mild 1-3)/fever Albuterol/Ipratropium (Albuterol/Ipratropium 3.0-0.5 Mg/3 Ml Neb Soln) 3 ml NEB Q4H PRN PRN Reason: Shortness Of Breath/wheezing Aspirin (Aspirin 81 Mg Tab.Ec) 81 mg PO DAILY PRINCE Last Admin: 03/09/21 08:50 Dose: 81 mg Documented by: Azithromycin (Azithromycin 250 Mg Tab) 250 mg PO DAILY PRINCE Stop: 03/13/21 23:59 Guaifenesin/Phenylephrine HCl (Guaifenesin/Dextromethorphan 100-10 Mg/5 Ml Soln 5 Ml Cup) 5 ml PO Q6H PRN PRN Reason: Cough Last Admin: 03/09/21 08:50 Dose: 5 ml Documented by: Heparin Sodium (Porcine) (Heparin Sodium 5,000 Units/Ml Vial) 5,000 units SUBCUT Q8H PRINCE Last Admin: 03/09/21 11:38 Dose: 5,000 units Documented by: Insulin Human Regular 100 unit (/ Sodium Chloride) 100 mls @ 4.99 mls/hr IV TITRATE PRINCE; Protocol Last Titration: 03/08/21 17:31 Dose: 0.02 units/kg/hr, 0.8 mls/hr Documented by: Norepinephrine Bitartrate 4 mg (/ Dextrose/Water) 250 mls @ 7.5 mls/hr IV ASD IRECTED PRN; Protocol PRN Reason: To maintain a MAP of 65 Potassium Chloride/Dextrose/Sod Cl (D5 1/2 Ns W/ 20 Meq/L Kcl) 1,000 mls @ 100 mls/hr IV ASDIRECTED PRINCE Last Admin: 03/09/21 10:26 Dose: 100 mls/hr Documented by: Promethazine HCl 12.5 mg/ (Sodium Chloride) 50.5 mls @ 100 mls/hr IV Q6H PRN PRN Reason: Nausea/Vomiting Metoprolol Tartrate (Metoprolol Tartrate 25 Mg Tab) 12.5 mg PO Q12H [facility] Last Admin: 03/09/21 04:40 Dose: 12.5 mg Documented by: Discontinued Medications Aspirin (Aspirin 325 Mg Tab.Ec) 325 mg PO ONETIME ONE Stop: 03/07/21 04:31 Last Admin: 03/07/21 05:04 Dose: Not Given Documented by: Azithromycin (Azithromycin 250 Mg Tab) 500 mg PO ONETIME ONE Stop: 03/09/21 10:27 Last Admin: 03/09/21 11:38 Dose: 500 mg Documented by: Sodium Chloride (Normal Saline) 1,000 mls @ 999 mls/hr IV ONETIME ONE Stop: 03/06/21 20:58 Last Admin: 03/06/21 19:50 Dose: 999 mls/hr Documented by: Sodium Chloride (Normal Saline) 1,000 mls @ 999 mls/hr IV ONETIME ONE Stop: 03/06/21 20:58 Last Admin: 03/06/21 19:57 Dose: 999 mls/hr Documented by: Sodium Chloride (Normal Saline) Confirm Administered Dose 100 mls @ as directed .ROUTE .STK-MED ONE Stop: 03/06/21 21:04 Last Admin: 03/06/21 22:27 Dose: Not Given Documented by: Sodium Chloride (Normal Saline) 1,000 mls @ 300 mls/hr IV ASDIRECTED [facility] Last Admin: 03/06/21 20:35 Dose: 300 mls/hr Documented by: Sodium Chloride (Normal Saline) 1,000 mls @ 999 mls/hr IV ASDIRECTED [facility] Last Admin: 03/06/21 20:35 Dose: 999 mls/hr Documented by: Sodium Chloride (Sodium Chloride 0.45%) 1,000 mls @ 300 mls/hr IV ASDIRECTED [facility] Last Admin: 03/07/21 02:59 Dose: 300 mls/hr Documented by: Sodium Bicarbonate 100 meq/Potassium Chloride 20 meq/Sterile Water 510 mls @ 255 mls/hr IV ONETIME ONE Stop: 03/07/21 05:29 Last Admin: 03/07/21 04:22 Dose: 255 mls/hr Documented by: Sodium Bicarbonate 100 meq/Potassium Chloride 20 meq/Sterile Water 510 mls @ 255 mls/hr IV ONETIME ONE Stop: 03/07/21 07:29 Potassium Chloride/Sodium Chloride (1/2 Ns With 20 Meq Kcl) 1,000 mls @ 100 mls/hr IV ASDIRECTED [facility] Last Admin: 03/07/21 06:15 Dose: 100 mls/hr Documented by: Insulin Human Regular (Insulin Regular, Human 100 Units/Ml 3 Ml Vial) Confirm Administered Dose 300 unit .ROUTE .STK-MED ONE Stop: 03/06/21 21:04 Last Admin: 03/06/21 22:27 Dose: Not Given Documented by: Morphine Sulfate (Morphine 2 Mg/Ml Syringe) 2 mg IVPUSH Q4H PRN PRN Reason: Pain (Severe 4-10) Stop: 03/08/21 04:19 Last Admin: 03/07/21 10:17 Dose: 2 mg Documented by: Naloxone HCl (Naloxone 2 Mg/2 Ml Syringe) Confirm Administered Dose 2 mg .ROUTE .STK-MED ONE Stop: 03/06/21 19:53 Last Admin: 03/06/21 22:27 Dose: Not Given Documented by: Naloxone HCl (Naloxone 2 Mg/2 Ml Syringe) 2 mg IVPUSH ONETIME ONE Stop: 03/06/21 19:51 Last Admin: 03/06/21 19:50 Dose: 2 mg Documented by: Naloxone HCl (Naloxone 2 Mg/2 Ml Syringe) 2 mg IVPUSH ONETIME ONE Stop: 03/06/21 19:54 Last Admin: 03/06/21 19:53 Dose: 2 mg Documented by: Naloxone HCl (Naloxone 2 Mg/2 Ml Syringe) Confirm Administered Dose 2 mg .ROUTE .STK-MED ONE Stop: 03/06/21 19:51 Last Admin: 03/07/21 19:10 Dose: Not Given Documented by: Ondansetron HCl (Ondansetron 4 Mg/2 Ml Sdv) 4 mg IV Q6H PRN PRN Reason: Nausea/Vomiting - Exam 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 Total Time: 1Days 17Hours Physical Findings Comments:: Physical Exam: General: No acute distress HEENT: Conjunctiva Clear, EOMI, Mucosa Moist & [place] Neck: Supple, Trachea Midline, NO JVD Lungs: CTA, normal Respiratory Effort, no Wheezing Cardiovascular: Regular Rate, Regular Rhythm GI/Abdominal Exam: Normal Bowel Sounds, Soft, Non-Tender, No Organomegaly, No Distention, No Abnormal Bruit, No Mass Extremities: Normal Inspection, Non-Tender, No Pedal Edema Skin: Warm, Dry, Intact Neurology: A+O x 3, no focal neurological deficits Psychiatric: Normal Mood - Patient Data Lab Results Last 24 hrs: Laboratory Results - last 24 hr 03/08/21 03/08/21 03/08/21 Range/Units 12:28 13:25 14:31 WBC (4.23-9.07) K/mm3 RBC (4.63-6.08) M/mm3 Hgb (13.7-17.5) gm/dl Hct (40.1-51.0) % MCV (79.0-92.2) fl MCH (25.7-32.2) pg MCHC (32.2-35.5) g/dl RDW Std Deviation (35.1-43.9) fL Plt Count (163-337) K/mm3 MPV (9.4-12.3) fl Neut % (Auto) (34.0-67.9) % Lymph % (Auto) (21.8-53.1) % [place] % (Auto) (5.3-12.2) % Eos % (Auto) (0.8-7.0) Baso % (Auto) (0.1-1.2) % Neut # (Auto) (1.78-5.38) K/mm3 Lymph # (Auto) (1.32-3.57) K/mm3 [place] # (Auto) (0.30-0.82) K/mm3 Eos # (Auto) (0.04-0.54) K/mm3 Baso # (Auto) (0.01-0.08) K/mm3 Sodium (136-145) mEq/L Potassium (3.5-5.1) mEq/L Chloride (98-107) mEq/L Carbon Dioxide (21-32) mEq/L Anion Gap (5-15) BUN (7-18) mg/dL Creatinine (0.7-1.3) mg/dL Est Cr Clr Drug Dosing mL/min Estimated GFR (MDRD) (>60) mL/min BUN/Creatinine Ratio (14-18) Glucose (70-99) mg/dL POC Glucose 102 H 103 H 166 H (70-99) mg/dL Lactic Acid (0.4-2.0) mmol/L Calcium (8.5-10.1) mg/dL Total Bilirubin (0.2-1.0) mg/dL AST (15-37) U/L ALT (16-63) U/L Alkaline Phosphatase (46-116) U/L Total Protein (6.4-8.2) g/dl Albumin (3.4-5.0) g/dl Globulin gm/dL Albumin/Globulin Ratio (1-2) 03/08/21 03/08/21 03/08/21 Range/Units 14:52 15:30 16:41 WBC (4.23-9.07) K/mm3 RBC (4.63-6.08) M/mm3 Hgb (13.7-17.5) gm/dl Hct (40.1-51.0) % MCV (79.0-92.2) fl MCH (25.7-32.2) pg MCHC (32.2-35.5) g/dl RDW Std Deviation (35.1-43.9) fL Plt Count (163-337) K/mm3 MPV (9.4-12.3) fl Neut % (Auto) (34.0-67.9) % Lymph % (Auto) (21.8-53.1) % [place] % (Auto) (5.3-12.2) % Eos % (Auto) (0.8-7.0) Baso % (Auto) (0.1-1.2) % Neut # (Auto) (1.78-5.38) K/mm3 Lymph # (Auto) (1.32-3.57) K/mm3 [place] # (Auto) (0.30-0.82) K/mm3 Eos # (Auto) (0.04-0.54) K/mm3 Baso # (Auto) (0.01-0.08) K/mm3 Sodium 143 (136-145) mEq/L Potassium 3.7 (3.5-5.1) mEq/L Chloride 109 H (98-107) mEq/L Carbon Dioxide 19 L (21-32) mEq/L Anion Gap 18.7 H (5-15) BUN 13 (7-18) mg/dL Creatinine 1.1 (0.7-1.3) mg/dL Est Cr Clr Drug Dosing 81.98 mL/min Estimated GFR (MDRD) > 60 (>60) mL/min BUN/Creatinine Ratio 11.8 L (14-18) Glucose 199 H (70-99) mg/dL POC Glucose 235 H (70-99) mg/dL Lactic Acid 1.1 (0.4-2.0) mmol/L Calcium 7.3 L (8.5-10.1) mg/dL Total Bilirubin (0.2-1.0) mg/dL AST (15-37) U/L ALT (16-63) U/L Alkaline Phosphatase (46-116) U/L Total Protein (6.4-8.2) g/dl Albumin (3.4-5.0) g/dl Globulin gm/dL Albumin/Globulin Ratio (1-2) 03/08/21 03/08/21 03/08/21 Range/Units 16:41 17:29 18:28 WBC (4.23-9.07) K/mm3 RBC (4.63-6.08) M/mm3 Hgb (13.7-17.5) gm/dl Hct (40.1-51.0) % MCV (79.0-92.2) fl MCH (25.7-32.2) pg MCHC (32.2-35.5) g/dl RDW Std Deviation (35.1-43.9) fL Plt Count (163-337) K/mm3 MPV (9.4-12.3) fl Neut % (Auto) (34.0-67.9) % Lymph % (Auto) (21.8-53.1) % [place] % (Auto) (5.3-12.2) % Eos % (Auto) (0.8-7.0) Baso % (Auto) (0.1-1.2) % Neut # (Auto) (1.78-5.38) K/mm3 Lymph # (Auto) (1.32-3.57) K/mm3 [place] # (Auto) (0.30-0.82) K/mm3 Eos # (Auto) (0.04-0.54) K/mm3 Baso # (Auto) (0.01-0.08) K/mm3 Sodium (136-145) mEq/L Potassium (3.5-5.1) mEq/L Chloride (98-107) mEq/L Carbon Dioxide (21-32) mEq/L Anion Gap (5-15) BUN (7-18) mg/dL Creatinine (0.7-1.3) mg/dL Est Cr Clr Drug Dosing mL/min Estimated GFR (MDRD) (>60) mL/min BUN/Creatinine Ratio (14-18) Glucose (70-99) mg/dL POC Glucose 288 H 269 H 229 H (70-99) mg/dL Lactic Acid (0.4-2.0) mmol/L Calcium (8.5-10.1) mg/dL Total Bilirubin (0.2-1.0) mg/dL AST (15-37) U/L ALT (16-63) U/L Alkaline Phosphatase (46-116) U/L Total Protein (6.4-8.2) g/dl Albumin (3.4-5.0) g/dl Globulin gm/dL Albumin/Globulin Ratio (1-2) 03/08/21 03/08/21 03/08/21 Range/Units 18:56 19:33 20:28 WBC (4.23-9.07) K/mm3 RBC (4.63-6.08) M/mm3 Hgb (13.7-17.5) gm/dl Hct (40.1-51.0) % MCV (79.0-92.2) fl MCH (25.7-32.2) pg MCHC (32.2-35.5) g/dl RDW Std Deviation (35.1-43.9) fL Plt Count (163-337) K/mm3 MPV (9.4-12.3) fl Neut % (Auto) (34.0-67.9) % Lymph % (Auto) (21.8-53.1) % [place] % (Auto) (5.3-12.2) % Eos % (Auto) (0.8-7.0) Baso % (Auto) (0.1-1.2) % Neut # (Auto) (1.78-5.38) K/mm3 Lymph # (Auto) (1.32-3.57) K/mm3 [place] # (Auto) (0.30-0.82) K/mm3 Eos # (Auto) (0.04-0.54) K/mm3 Baso # (Auto) (0.01-0.08) K/mm3 Sodium 142 (136-145) mEq/L Potassium 4.0 (3.5-5.1) mEq/L Chloride 108 H (98-107) mEq/L Carbon Dioxide 17 L (21-32) mEq/L Anion Gap 21.0 H (5-15) BUN 13 (7-18) mg/dL Creatinine 1.3 (0.7-1.3) mg/dL Est Cr Clr Drug Dosing 69.37 mL/min Estimated GFR (MDRD) > 60 (>60) mL/min BUN/Creatinine Ratio 10.0 L (14-18) Glucose 254 H (70-99) mg/dL POC Glucose 237 H 218 H (70-99) mg/dL Lactic Acid (0.4-2.0) mmol/L Calcium 7.5 L (8.5-10.1) mg/dL Total Bilirubin (0.2-1.0) mg/dL AST (15-37) U/L ALT (16-63) U/L Alkaline Phosphatase (46-116) U/L Total Protein (6.4-8.2) g/dl Albumin (3.4-5.0) g/dl Globulin gm/dL Albumin/Globulin Ratio (1-2) 03/08/21 03/08/21 03/08/21 Range/Units 21:32 22:34 22:50 WBC (4.23-9.07) K/mm3 RBC (4.63-6.08) M/mm3 Hgb (13.7-17.5) gm/dl Hct (40.1-51.0) % MCV (79.0-92.2) fl MCH (25.7-32.2) pg MCHC (32.2-35.5) g/dl RDW Std Deviation (35.1-43.9) fL Plt Count (163-337) K/mm3 MPV (9.4-12.3) fl Neut % (Auto) (34.0-67.9) % Lymph % (Auto) (21.8-53.1) % [place] % (Auto) (5.3-12.2) % Eos % (Auto) (0.8-7.0) Baso % (Auto) (0.1-1.2) % Neut # (Auto) (1.78-5.38) K/mm3 Lymph # (Auto) (1.32-3.57) K/mm3 [place] # (Auto) (0.30-0.82) K/mm3 Eos # (Auto) (0.04-0.54) K/mm3 Baso # (Auto) (0.01-0.08) K/mm3 Sodium 139 (136-145) mEq/L Potassium 3.9 (3.5-5.1) mEq/L Chloride 107 (98-107) mEq/L Carbon Dioxide 19 L (21-32) mEq/L Anion Gap 16.9 H (5-15) BUN 12 (7-18) mg/dL Creatinine 1.2 (0.7-1.3) mg/dL Est Cr Clr Drug Dosing 75.15 mL/min Estimated GFR (MDRD) > 60 (>60) mL/min BUN/Creatinine Ratio 10.0 L (14-18) Glucose 263 H (70-99) mg/dL POC Glucose 248 H 262 H (70-99) mg/dL Lactic Acid (0.4-2.0) mmol/L Calcium 7.3 L (8.5-10.1) mg/dL Total Bilirubin (0.2-1.0) mg/dL AST (15-37) U/L ALT (16-63) U/L Alkaline Phosphatase (46-116) U/L Total Protein (6.4-8.2) g/dl Albumin (3.4-5.0) g/dl Globulin gm/dL Albumin/Globulin Ratio (1-2) 03/08/21 03/09/21 03/09/21 Range/Units 23:31 00:34 01:31 WBC (4.23-9.07) K/mm3 RBC (4.63-6.08) M/mm3 Hgb (13.7-17.5) gm/dl Hct (40.1-51.0) % MCV (79.0-92.2) fl MCH (25.7-32.2) pg MCHC (32.2-35.5) g/dl RDW Std Deviation (35.1-43.9) fL Plt Count (163-337) K/mm3 MPV (9.4-12.3) fl Neut % (Auto) (34.0-67.9) % Lymph % (Auto) (21.8-53.1) % [place] % (Auto) (5.3-12.2) % Eos % (Auto) (0.8-7.0) Baso % (Auto) (0.1-1.2) % Neut # (Auto) (1.78-5.38) K/mm3 Lymph # (Auto) (1.32-3.57) K/mm3 [place] # (Auto) (0.30-0.82) K/mm3 Eos # (Auto) (0.04-0.54) K/mm3 Baso # (Auto) (0.01-0.08) K/mm3 Sodium (136-145) mEq/L Potassium (3.5-5.1) mEq/L Chloride (98-107) mEq/L Carbon Dioxide (21-32) mEq/L Anion Gap (5-15) BUN (7-18) mg/dL Creatinine (0.7-1.3) mg/dL Est Cr Clr Drug Dosing mL/min Estimated GFR (MDRD) (>60) mL/min BUN/Creatinine Ratio (14-18) Glucose (70-99) mg/dL POC Glucose 232 H 222 H 228 H (70-99) mg/dL Lactic Acid (0.4-2.0) mmol/L Calcium (8.5-10.1) mg/dL Total Bilirubin (0.2-1.0) mg/dL AST (15-37) U/L ALT (16-63) U/L Alkaline Phosphatase (46-116) U/L Total Protein (6.4-8.2) g/dl Albumin (3.4-5.0) g/dl Globulin gm/dL Albumin/Globulin Ratio (1-2) 03/09/21 03/09/21 03/09/21 Range/Units 02:34 03:37 04:34 WBC (4.23-9.07) K/mm3 RBC (4.63-6.08) M/mm3 Hgb (13.7-17.5) gm/dl Hct (40.1-51.0) % MCV (79.0-92.2) fl MCH (25.7-32.2) pg MCHC (32.2-35.5) g/dl RDW Std Deviation (35.1-43.9) fL Plt Count (163-337) K/mm3 MPV (9.4-12.3) fl Neut % (Auto) (34.0-67.9) % Lymph % (Auto) (21.8-53.1) % [place] % (Auto) (5.3-12.2) % Eos % (Auto) (0.8-7.0) Baso % (Auto) (0.1-1.2) % Neut # (Auto) (1.78-5.38) K/mm3 Lymph # (Auto) (1.32-3.57) K/mm3 [place] # (Auto) (0.30-0.82) K/mm3 Eos # (Auto) (0.04-0.54) K/mm3 Baso # (Auto) (0.01-0.08) K/mm3 Sodium (136-145) mEq/L Potassium (3.5-5.1) mEq/L Chloride (98-107) mEq/L Carbon Dioxide (21-32) mEq/L Anion Gap (5-15) BUN (7-18) mg/dL Creatinine (0.7-1.3) mg/dL Est Cr Clr Drug Dosing mL/min Estimated GFR (MDRD) (>60) mL/min BUN/Creatinine Ratio (14-18) Glucose (70-99) mg/dL POC Glucose 228 H 252 H 238 H (70-99) mg/dL Lactic Acid (0.4-2.0) mmol/L Calcium (8.5-10.1) mg/dL Total Bilirubin (0.2-1.0) mg/dL AST (15-37) U/L ALT (16-63) U/L Alkaline Phosphatase (46-116) U/L Total Protein (6.4-8.2) g/dl Albumin (3.4-5.0) g/dl Globulin gm/dL Albumin/Globulin Ratio (1-2) 03/09/21 03/09/21 03/09/21 Range/Units 04:55 04:55 05:33 WBC 4.82 (4.23-9.07) K/mm3 RBC 3.03 L (4.63-6.08) M/mm3 Hgb 9.3 L (13.7-17.5) gm/dl Hct 28.7 L (40.1-51.0) % MCV 94.7 H (79.0-92.2) fl MCH 30.7 (25.7-32.2) pg MCHC 32.4 (32.2-35.5) g/dl RDW Std Deviation 47.2 H (35.1-43.9) fL Plt Count 156 L (163-337) K/mm3 MPV 8.5 L (9.4-12.3) fl Neut % (Auto) 50.5 (34.0-67.9) % Lymph % (Auto) 37.1 (21.8-53.1) % [place] % (Auto) 11.0 (5.3-12.2) % Eos % (Auto) 0.8 (0.8-7.0) Baso % (Auto) 0.4 (0.1-1.2) % Neut # (Auto) 2.43 (1.78-5.38) K/mm3 Lymph # (Auto) 1.79 (1.32-3.57) K/mm3 [place] # (Auto) 0.53 (0.30-0.82) K/mm3 Eos # (Auto) 0.04 (0.04-0.54) K/mm3 Baso # (Auto) 0.02 (0.01-0.08) K/mm3 Sodium 138 (136-145) mEq/L Potassium 4.4 (3.5-5.1) mEq/L Chloride 106 (98-107) mEq/L Carbon Dioxide 18 L (21-32) mEq/L Anion Gap 18.4 H (5-15) BUN 11 (7-18) mg/dL Creatinine 1.1 (0.7-1.3) mg/dL Est Cr Clr Drug Dosing 83.77 mL/min Estimated GFR (MDRD) > 60 (>60) mL/min BUN/Creatinine Ratio 10.0 L (14-18) Glucose 262 H (70-99) mg/dL POC Glucose 260 H (70-99) mg/dL Lactic Acid (0.4-2.0) mmol/L Calcium 7.7 L (8.5-10.1) mg/dL Total Bilirubin 0.4 (0.2-1.0) mg/dL AST 326 H (15-37) U/L ALT 436 H (16-63) U/L Alkaline Phosphatase 248 H (46-116) U/L Total Protein 5.2 L (6.4-8.2) g/dl Albumin 2.2 L (3.4-5.0) g/dl Globulin 3.0 gm/dL Albumin/Globulin Ratio 0.7 L (1-2) 03/09/21 03/09/21 03/09/21 Range/Units 06:35 07:42 08:36 WBC (4.23-9.07) K/mm3 RBC (4.63-6.08) M/mm3 Hgb (13.7-17.5) gm/dl Hct (40.1-51.0) % MCV (79.0-92.2) fl MCH (25.7-32.2) pg MCHC (32.2-35.5) g/dl RDW Std Deviation (35.1-43.9) fL Plt Count (163-337) K/mm3 MPV (9.4-12.3) fl Neut % (Auto) (34.0-67.9) % Lymph % (Auto) (21.8-53.1) % [place] % (Auto) (5.3-12.2) % Eos % (Auto) (0.8-7.0) Baso % (Auto) (0.1-1.2) % Neut # (Auto) (1.78-5.38) K/mm3 Lymph # (Auto) (1.32-3.57) K/mm3 [place] # (Auto) (0.30-0.82) K/mm3 Eos # (Auto) (0.04-0.54) K/mm3 Baso # (Auto) (0.01-0.08) K/mm3 Sodium (136-145) mEq/L Potassium (3.5-5.1) mEq/L Chloride (98-107) mEq/L Carbon Dioxide (21-32) mEq/L Anion Gap (5-15) BUN (7-18) mg/dL Creatinine (0.7-1.3) mg/dL Est Cr Clr Drug Dosing mL/min Estimated GFR (MDRD) (>60) mL/min BUN/Creatinine Ratio (14-18) Glucose (70-99) mg/dL POC Glucose 227 H 226 H 198 H (70-99) mg/dL Lactic Acid (0.4-2.0) mmol/L Calcium (8.5-10.1) mg/dL Total Bilirubin (0.2-1.0) mg/dL AST (15-37) U/L ALT (16-63) U/L Alkaline Phosphatase (46-116) U/L Total Protein (6.4-8.2) g/dl Albumin (3.4-5.0) g/dl Globulin gm/dL Albumin/Globulin Ratio (1-2) 03/09/21 03/09/21 03/09/21 Range/Units 09:13 09:35 10:29 WBC (4.23-9.07) K/mm3 RBC (4.63-6.08) M/mm3 Hgb (13.7-17.5) gm/dl Hct (40.1-51.0) % MCV (79.0-92.2) fl MCH (25.7-32.2) pg MCHC (32.2-35.5) g/dl RDW Std Deviation (35.1-43.9) fL Plt Count (163-337) K/mm3 MPV (9.4-12.3) fl Neut % (Auto) (34.0-67.9) % Lymph % (Auto) (21.8-53.1) % [place] % (Auto) (5.3-12.2) % Eos % (Auto) (0.8-7.0) Baso % (Auto) (0.1-1.2) % Neut # (Auto) (1.78-5.38) K/mm3 Lymph # (Auto) (1.32-3.57) K/mm3 [place] # (Auto) (0.30-0.82) K/mm3 Eos # (Auto) (0.04-0.54) K/mm3 Baso # (Auto) (0.01-0.08) K/mm3 Sodium 138 (136-145) mEq/L Potassium 3.9 (3.5-5.1) mEq/L Chloride 105 (98-107) mEq/L Carbon Dioxide 18 L (21-32) mEq/L Anion Gap 18.9 H (5-15) BUN 11 (7-18) mg/dL Creatinine 1.0 (0.7-1.3) mg/dL Est Cr Clr Drug Dosing 92.15 mL/min Estimated GFR (MDRD) > 60 (>60) mL/min BUN/Creatinine Ratio 11.0 L (14-18) Glucose 217 H (70-99) mg/dL POC Glucose 203 H 181 H (70-99) mg/dL Lactic Acid (0.4-2.0) mmol/L Calcium 7.4 L (8.5-10.1) mg/dL Total Bilirubin 0.5 (0.2-1.0) mg/dL AST 330 H (15-37) U/L ALT 423 H (16-63) U/L Alkaline Phosphatase 254 H (46-116) U/L Total Protein 5.4 L (6.4-8.2) g/dl Albumin 2.3 L (3.4-5.0) g/dl Globulin 3.1 gm/dL Albumin/Globulin Ratio 0.7 L (1-2) 03/09/21 Range/Units 11:27 WBC (4.23-9.07) K/mm3 RBC (4.63-6.08) M/mm3 Hgb (13.7-17.5) gm/dl Hct (40.1-51.0) % MCV (79.0-92.2) fl MCH (25.7-32.2) pg MCHC (32.2-35.5) g/dl RDW Std Deviation (35.1-43.9) fL Plt Count (163-337) K/mm3 MPV (9.4-12.3) fl Neut % (Auto) (34.0-67.9) % Lymph % (Auto) (21.8-53.1) % [place] % (Auto) (5.3-12.2) % Eos % (Auto) (0.8-7.0) Baso % (Auto) (0.1-1.2) % Neut # (Auto) (1.78-5.38) K/mm3 Lymph # (Auto) (1.32-3.57) K/mm3 [place] # (Auto) (0.30-0.82) K/mm3 Eos # (Auto) (0.04-0.54) K/mm3 Baso # (Auto) (0.01-0.08) K/mm3 Sodium (136-145) mEq/L Potassium (3.5-5.1) mEq/L Chloride (98-107) mEq/L Carbon Dioxide (21-32) mEq/L Anion Gap (5-15) BUN (7-18) mg/dL Creatinine (0.7-1.3) mg/dL Est Cr Clr Drug Dosing mL/min Estimated GFR (MDRD) (>60) mL/min BUN/Creatinine Ratio (14-18) Glucose (70-99) mg/dL POC Glucose 170 H (70-99) mg/dL Lactic Acid (0.4-2.0) mmol/L Calcium (8.5-10.1) mg/dL Total Bilirubin (0.2-1.0) mg/dL AST (15-37) U/L ALT (16-63) U/L Alkaline Phosphatase (46-116) U/L Total Protein (6.4-8.2) g/dl Albumin (3.4-5.0) g/dl Globulin gm/dL Albumin/Globulin Ratio (1-2) Result Diagrams: 03/09/21 04:55 03/09/21 09:13 Rosalio Results Last 24 hrs: Microbiology 03/07/21 06:30 Aerobic Blood Culture - Preliminary Blood - Venous - Lab Draw NO GROWTH AFTER 2 DAYS Anaerobic Blood Culture - Preliminary NO GROWTH AFTER 2 DAYS 03/07/21 05:10 Aerobic Blood Culture - Preliminary Blood - Venous NO GROWTH AFTER 2 DAYS Anaerobic Blood Culture - Final Sepsis Event Note - Evaluation Sepsis Screening Result: No Definite Risk - Focused Exam Vital Signs: Vital Signs Temp Pulse Resp BP BP Pulse Ox 03/09/21 11:45 36.1 C 15 120/93 H 87 L 03/09/21 10:00 73 16 91 L 03/09/21 09:00 73 16 89 L 03/09/21 08:01 74 18 91 L 03/09/21 08:00 36.3 C 80 15 129/97 H 91 L 03/09/21 07:59 83 16 93 L 03/09/21 07:00 82 17 92 L 03/09/21 06:00 78 20 87 L 03/09/21 05:00 79 14 90 L 03/09/21 04:40 87 131/97 H 03/09/21 04:00 36.3 C 16 131/100 H 92 L 03/09/21 03:00 85 18 94 L 03/09/21 01:00 73 15 91 L 03/09/21 00:00 36.4 C 16 110/80 90 L - Problem List Review Problem List Initiated/Reviewed/Updated: Yes - My Orders Last 24 Hours: My Active Orders 03/08/21 13:14 Communication Order [RC] ASDIRECTED 03/08/21 20:10 Communication Order [RC] ASDIRECTED 03/09/21 08:40 Dextromethorphan/guaiFENesin [Robitussin DM] 5 ml PO Q6H PRN 03/09/21 10:29 Promethazine [Phenergan] 12.5 mg Sodium Chloride 0.9% [Normal Saline] 50 ml IV Q6H 03/09/21 13:00 COMPREHENSIVE METABOLIC PN,CMP [CHEM] Q4H 03/09/21 17:00 COMPREHENSIVE METABOLIC PN,CMP [CHEM] Q4H 03/10/21 05:00 CBC WITH AUTO DIFF [HEME] DAILY COMPREHENSIVE METABOLIC PN,CMP [CHEM] DAILY 03/10/21 09:00 Azithromycin [Zithromax] 250 mg PO DAILY 03/11/21 05:00 CBC WITH AUTO DIFF [HEME] DAILY COMPREHENSIVE METABOLIC PN,CMP [CHEM] DAILY - Plan Plan:: Assessment/Plan Comment:: Patient is a 26-year-old male with a history of type 1 diabetes, substance abuse, medical noncompliance and history of DKA who was brought to the ER due to AMS. Pt was admitted to our hospital with similar presentation. AMS - resolved -Etiology unknown. Could be due to metabolic encephalopathy, dehydration, substance abuse, infection, stroke from use of cocaine, etc -CT of head - no acute change -Blood culture negative -IV fluid -Monitoring in ICU DKA DM type 1 -anion gap 18.4, bicarbonate 18 -continue DKA protocol: continue insulin drip and KCl 20mEq D5 1/2 NS 100ml/hr -Diabetic education Hypotension - resolved -continue ivf Cocaine abuse -Urine drug screen positive for cocaine -aspirin -serum osmolality is elevated at 360. -salicylate level is within normal limits at 8.6. -acetaminophen level is 0. -EtOH level is 0.00. -ethylene glycol pending -methanol (not available for the test) -adult protective caseworker consult Tobacco abuse disorder -Smoking cessation counseling -Nicotine patch if necessary Medical non-comliance -adult protective caseworker counseling Leukocytosis -WBC 22.62 on admission -normalized -No evidence of infection -Chest x-ray no acute change -Urinalysis not compatible with UTI -No antibiotics FABIOLA -creatinine 1.7 on admission. It was 0.7 on 01/21/2021 -Most likely due to prerenal cause -Avoid nephrotoxic meds -IV fluid -Creatinine normalized -Repeat the renal function morning Elevation of liver enzymes -AST 360, ALT 653, Alk phos 364, Tbil 1.0 on admission -Repeat the liver function in morning Bronchitis -cough with sputum -CXR -possible bronchitis, worse within the left perihilar region -Azithromycin DVT prophylaxis: Lovenox
[2021-03-09] MEDS ORDERED: Iopamidol 755 Mg/ML 100 ML Bottle IVPUSH ONE (14:01)
[2021-03-09] MEDS: Furosemide 20 MG/2 ML VIAL IVPUSH SCH (16:11)
[2021-03-09] MEDS ORDERED: Pantoprazole 40 MG in Sodium Chloride 0.9% 100 ML IV SCH (16:15)
[2021-03-09] MEDS: Pantoprazole 40 MG Vial IVPUSH SCH (17:18)
[2021-03-09] MEDS: Enoxaparin 40 MG/0.4 ML Syringe SUBCUT SCH (20:08)
[2021-03-10] MEDS: guaiFENesin/Dextromethorphan 100-10 MG/5 ML Soln 5 ML Cup PO PRN ×3 (04:09→20:36)
[2021-03-10] MEDS: Metoprolol Tartrate 25 MG Tab PO SCH ×2 (06:18→16:32)
[2021-03-10] MEDS: Furosemide 20 MG/2 ML VIAL IVPUSH SCH ×2 (06:19→20:37)
[2021-03-10] MEDS: Aspirin 81 MG Tab.EC PO SCH (08:31)
[2021-03-10] MEDS: Azithromycin 250 MG Tab PO SCH (08:31)
[2021-03-10] MEDS: Pantoprazole 40 MG Vial IVPUSH SCH (08:31)
--- NOTE | 2021-03-10 09:18 | US ---
Bilateral lower extremity deep venous ultrasound: Duplex and color Doppler evaluation was obtained of the right and left common femoral, proximal greater saphenous, superficial femoral, popliteal, posterior tibial and peroneal veins. Comparison: Prior left lower extremity deep venous ultrasound of 12/21/16. Findings: Normal phasic flow, augmentation and compression is seen within the visualized veins. Impression: 1. No findings of deep venous thrombosis within the right or left lower extremities. Diagnostic code #1 I agree with preliminary report from [facility] finalized on 03/09/21, 5:23 PM CDT, code 1
--- NOTE | 2021-03-10 10:54 | CT ---
CT chest Technique: Multiple axial sections were obtained through the chest. Intravenous contrast was utilized as a pulmonary angiogram protocol. Comparison: Chest radiograph performed on the same day (8:56 AM) and prior chest CT of 01/17/21. Findings: Pulmonary arteries are well opacified. No filling defects are seen to indicate pulmonary embolism. Patchy areas of increased density are noted within both posterior lower lobes as well as within the left upper lung. Minimal density is seen within the right upper lobe. Findings within both lower lobes have decreased in prominence from prior study. Upper lobe findings are an interval change. Small bilateral pleural effusions are seen which are an interval change from previous exam. There is mild increased soft tissue density being seen within the mediastinum with slight thickening of a portion of the trachea which is believed to be present on prior study but better seen on current study. Heart is size is normal. Liver is slightly enlarged with no acute abnormality appreciated within the visualized upper abdomen. Mild diffuse edema is noted within the chest wall which is stable from prior exam. Impression: 1. No findings of pulmonary embolism. 2. Small bilateral pleural effusions which are an interval change from previous chest CT. 3. Decreased parenchymal change from prior chest CT study within both lower lungs. Small areas of new increased density noted within both upper lungs. Please correlate if patient has infectious symptoms. 4. Body wall edema is noted. Mildly enlarged liver is also seen. Slight wall thickening within the trachea raising the possibility of prior intubation. Diagnostic code #3 I agree with preliminary report from [facility] finalized on 03/09/21, 4:40 PM CDT, code 1
--- NOTE | 2021-03-10 13:18 | PCM.PN ---
- General Info Date of Service: 03/10/21 Admission Dx/Problem (Free Text): Admission Diagnosis/Problem Admission Diagnosis/Problem Diabetic ketoacidosis Subjective Update: Patient is a 26-year-old male with a history of type 1 diabetes, substance abuse, medical noncompliance and history of DKA who was brought to the ER due to AMS. Patient was admitted to the hospital recently for DKA and again for this time. Patient feels fine. He is hungry. He is still on insulin drip. Vital signs are stable and acceptable WBC 4.39, platelets 150 Bicarbonate 18, anion gap 20 Creatinine 1.1 AST 265, ALT 406, alkaline phos 298 - Review of Systems Systems Review Comment:: General: Reports: weakness HEENT: Reports: No Symptoms Pulmonary: Reports: No Symptoms Cardiovascular: Reports: No Symptoms Gastrointestinal: Reports: No Symptoms Genitourinary: Reports: No Symptoms Musculoskeletal: Reports: No Symptoms Skin: Reports: No Symptoms Psychiatric: Reports: No Symptoms Neurological: Reports: No Symptoms Hematologic/Lymphatic: Reports: No Symptoms Immunologic: Reports: No Symptoms - Patient Data Vitals - Most Recent: Last Vital Signs Temp 36.3 C 03/10/21 11:56 Pulse 94 03/10/21 06:18 Resp 16 03/10/21 11:56 BP 122/90 03/10/21 11:56 Pulse Ox 100 03/10/21 11:56 Weight - Most Recent: 56.155 kg I&O - Last 24 Hours: Intake & Output 03/09/21 03/10/21 03/10/21 22:59 06:59 14:59 Intake Total 1225 1258 Output Total 200 Balance 1225 1058 Lab Results Last 24 Hours: Laboratory Results - last 24 hr 03/09/21 03/09/21 03/09/21 Range/Units 13:08 13:08 13:08 WBC (4.23-9.07) K/mm3 RBC (4.63-6.08) M/mm3 Hgb (13.7-17.5) gm/dl Hct (40.1-51.0) % MCV (79.0-92.2) fl MCH (25.7-32.2) pg MCHC (32.2-35.5) g/dl RDW Std Deviation (35.1-43.9) fL Plt Count (163-337) K/mm3 MPV (9.4-12.3) fl Neut % (Auto) (34.0-67.9) % Lymph % (Auto) (21.8-53.1) % [place] % (Auto) (5.3-12.2) % Eos % (Auto) (0.8-7.0) Baso % (Auto) (0.1-1.2) % Neut # (Auto) (1.78-5.38) K/mm3 Lymph # (Auto) (1.32-3.57) K/mm3 [place] # (Auto) (0.30-0.82) K/mm3 Eos # (Auto) (0.04-0.54) K/mm3 Baso # (Auto) (0.01-0.08) K/mm3 D-Dimer, Quantitative 1.58 H (0.19-0.50) mg/L Sodium 136 (136-145) mEq/L Potassium 3.9 (3.5-5.1) mEq/L Chloride 104 (98-107) mEq/L Carbon Dioxide 18 L (21-32) mEq/L Anion Gap 17.9 H (5-15) BUN 10 (7-18) mg/dL Creatinine 1.0 (0.7-1.3) mg/dL Est Cr Clr Drug Dosing 92.15 mL/min Estimated GFR (MDRD) > 60 (>60) mL/min BUN/Creatinine Ratio 10.0 L (14-18) Glucose 216 H (70-99) mg/dL POC Glucose (70-99) mg/dL Calcium 7.4 L (8.5-10.1) mg/dL Total Bilirubin 0.7 (0.2-1.0) mg/dL AST 415 H (15-37) U/L ALT 443 H (16-63) U/L Alkaline Phosphatase 278 H (46-116) U/L NT-Pro-B Natriuret Pep 3206 H (0-125) pg/mL Total Protein 5.5 L (6.4-8.2) g/dl Albumin 2.4 L (3.4-5.0) g/dl Globulin 3.1 gm/dL Albumin/Globulin Ratio 0.8 L (1-2) 06/19/21 06/19/21 06/19/21 Range/Units 13:31 14:48 15:56 WBC (4.23-9.07) K/mm3 RBC (4.63-6.08) M/mm3 Hgb (13.7-17.5) gm/dl Hct (40.1-51.0) % MCV (79.0-92.2) fl MCH (25.7-32.2) pg MCHC (32.2-35.5) g/dl RDW Std Deviation (35.1-43.9) fL Plt Count (163-337) K/mm3 MPV (9.4-12.3) fl Neut % (Auto) (34.0-67.9) % Lymph % (Auto) (21.8-53.1) % [place] % (Auto) (5.3-12.2) % Eos % (Auto) (0.8-7.0) Baso % (Auto) (0.1-1.2) % Neut # (Auto) (1.78-5.38) K/mm3 Lymph # (Auto) (1.32-3.57) K/mm3 [place] # (Auto) (0.30-0.82) K/mm3 Eos # (Auto) (0.04-0.54) K/mm3 Baso # (Auto) (0.01-0.08) K/mm3 D-Dimer, Quantitative (0.19-0.50) mg/L Sodium (136-145) mEq/L Potassium (3.5-5.1) mEq/L Chloride (98-107) mEq/L Carbon Dioxide (21-32) mEq/L Anion Gap (5-15) BUN (7-18) mg/dL Creatinine (0.7-1.3) mg/dL Est Cr Clr Drug Dosing mL/min Estimated GFR (MDRD) (>60) mL/min BUN/Creatinine Ratio (14-18) Glucose (70-99) mg/dL POC Glucose 196 H 217 H 259 H (70-99) mg/dL Calcium (8.5-10.1) mg/dL Total Bilirubin (0.2-1.0) mg/dL AST (15-37) U/L ALT (16-63) U/L Alkaline Phosphatase (46-116) U/L NT-Pro-B Natriuret Pep (0-125) pg/mL Total Protein (6.4-8.2) g/dl Albumin (3.4-5.0) g/dl Globulin gm/dL Albumin/Globulin Ratio (1-2) 03/09/21 03/09/21 03/09/21 Range/Units 17:00 17:18 18:02 WBC (4.23-9.07) K/mm3 RBC (4.63-6.08) M/mm3 Hgb (13.7-17.5) gm/dl Hct (40.1-51.0) % MCV (79.0-92.2) fl MCH (25.7-32.2) pg MCHC (32.2-35.5) g/dl RDW Std Deviation (35.1-43.9) fL Plt Count (163-337) K/mm3 MPV (9.4-12.3) fl Neut % (Auto) (34.0-67.9) % Lymph % (Auto) (21.8-53.1) % [place] % (Auto) (5.3-12.2) % Eos % (Auto) (0.8-7.0) Baso % (Auto) (0.1-1.2) % Neut # (Auto) (1.78-5.38) K/mm3 Lymph # (Auto) (1.32-3.57) K/mm3 [place] # (Auto) (0.30-0.82) K/mm3 Eos # (Auto) (0.04-0.54) K/mm3 Baso # (Auto) (0.01-0.08) K/mm3 D-Dimer, Quantitative (0.19-0.50) mg/L Sodium 135 L (136-145) mEq/L Potassium 4.0 (3.5-5.1) mEq/L Chloride 102 (98-107) mEq/L Carbon Dioxide 16 L (21-32) mEq/L Anion Gap 21.0 H (5-15) BUN 10 (7-18) mg/dL Creatinine 1.1 (0.7-1.3) mg/dL Est Cr Clr Drug Dosing 83.77 mL/min Estimated GFR (MDRD) > 60 (>60) mL/min BUN/Creatinine Ratio 9.1 L (14-18) Glucose 239 H (70-99) mg/dL POC Glucose 211 H 250 H (70-99) mg/dL Calcium 7.6 L (8.5-10.1) mg/dL Total Bilirubin 0.6 (0.2-1.0) mg/dL AST 356 H (15-37) U/L ALT 449 H (16-63) U/L Alkaline Phosphatase 291 H (46-116) U/L NT-Pro-B Natriuret Pep (0-125) pg/mL Total Protein 5.8 L (6.4-8.2) g/dl Albumin 2.5 L (3.4-5.0) g/dl Globulin 3.3 gm/dL Albumin/Globulin Ratio 0.8 L (1-2) 03/09/21 03/09/21 03/09/21 Range/Units 18:55 19:54 21:00 WBC (4.23-9.07) K/mm3 RBC (4.63-6.08) M/mm3 Hgb (13.7-17.5) gm/dl Hct (40.1-51.0) % MCV (79.0-92.2) fl MCH (25.7-32.2) pg MCHC (32.2-35.5) g/dl RDW Std Deviation (35.1-43.9) fL Plt Count (163-337) K/mm3 MPV (9.4-12.3) fl Neut % (Auto) (34.0-67.9) % Lymph % (Auto) (21.8-53.1) % [place] % (Auto) (5.3-12.2) % Eos % (Auto) (0.8-7.0) Baso % (Auto) (0.1-1.2) % Neut # (Auto) (1.78-5.38) K/mm3 Lymph # (Auto) (1.32-3.57) K/mm3 [place] # (Auto) (0.30-0.82) K/mm3 Eos # (Auto) (0.04-0.54) K/mm3 Baso # (Auto) (0.01-0.08) K/mm3 D-Dimer, Quantitative (0.19-0.50) mg/L Sodium 137 (136-145) mEq/L Potassium 4.1 (3.5-5.1) mEq/L Chloride 104 (98-107) mEq/L Carbon Dioxide 18 L (21-32) mEq/L Anion Gap 19.1 H (5-15) BUN 9 (7-18) mg/dL Creatinine 1.1 (0.7-1.3) mg/dL Est Cr Clr Drug Dosing 83.77 mL/min Estimated GFR (MDRD) > 60 (>60) mL/min BUN/Creatinine Ratio 8.2 L (14-18) Glucose 222 H (70-99) mg/dL POC Glucose 202 H 233 H (70-99) mg/dL Calcium 7.6 L (8.5-10.1) mg/dL Total Bilirubin (0.2-1.0) mg/dL AST (15-37) U/L ALT (16-63) U/L Alkaline Phosphatase (46-116) U/L NT-Pro-B Natriuret Pep (0-125) pg/mL Total Protein (6.4-8.2) g/dl Albumin (3.4-5.0) g/dl Globulin gm/dL Albumin/Globulin Ratio (1-2) 03/09/21 03/09/21 03/09/21 Range/Units 21:00 22:11 23:07 WBC (4.23-9.07) K/mm3 RBC (4.63-6.08) M/mm3 Hgb (13.7-17.5) gm/dl Hct (40.1-51.0) % MCV (79.0-92.2) fl MCH (25.7-32.2) pg MCHC (32.2-35.5) g/dl RDW Std Deviation (35.1-43.9) fL Plt Count (163-337) K/mm3 MPV (9.4-12.3) fl Neut % (Auto) (34.0-67.9) % Lymph % (Auto) (21.8-53.1) % [place] % (Auto) (5.3-12.2) % Eos % (Auto) (0.8-7.0) Baso % (Auto) (0.1-1.2) % Neut # (Auto) (1.78-5.38) K/mm3 Lymph # (Auto) (1.32-3.57) K/mm3 [place] # (Auto) (0.30-0.82) K/mm3 Eos # (Auto) (0.04-0.54) K/mm3 Baso # (Auto) (0.01-0.08) K/mm3 D-Dimer, Quantitative (0.19-0.50) mg/L Sodium (136-145) mEq/L Potassium (3.5-5.1) mEq/L Chloride (98-107) mEq/L Carbon Dioxide (21-32) mEq/L Anion Gap (5-15) BUN (7-18) mg/dL Creatinine (0.7-1.3) mg/dL Est Cr Clr Drug Dosing mL/min Estimated GFR (MDRD) (>60) mL/min BUN/Creatinine Ratio (14-18) Glucose (70-99) mg/dL POC Glucose 217 H 218 H 209 H (70-99) mg/dL Calcium (8.5-10.1) mg/dL Total Bilirubin (0.2-1.0) mg/dL AST (15-37) U/L ALT (16-63) U/L Alkaline Phosphatase (46-116) U/L NT-Pro-B Natriuret Pep (0-125) pg/mL Total Protein (6.4-8.2) g/dl Albumin (3.4-5.0) g/dl Globulin gm/dL Albumin/Globulin Ratio (1-2) 03/10/21 03/10/21 03/10/21 Range/Units 00:04 01:00 01:04 WBC (4.23-9.07) K/mm3 RBC (4.63-6.08) M/mm3 Hgb (13.7-17.5) gm/dl Hct (40.1-51.0) % MCV (79.0-92.2) fl MCH (25.7-32.2) pg MCHC (32.2-35.5) g/dl RDW Std Deviation (35.1-43.9) fL Plt Count (163-337) K/mm3 MPV (9.4-12.3) fl Neut % (Auto) (34.0-67.9) % Lymph % (Auto) (21.8-53.1) % [place] % (Auto) (5.3-12.2) % Eos % (Auto) (0.8-7.0) Baso % (Auto) (0.1-1.2) % Neut # (Auto) (1.78-5.38) K/mm3 Lymph # (Auto) (1.32-3.57) K/mm3 [place] # (Auto) (0.30-0.82) K/mm3 Eos # (Auto) (0.04-0.54) K/mm3 Baso # (Auto) (0.01-0.08) K/mm3 D-Dimer, Quantitative (0.19-0.50) mg/L Sodium 137 (136-145) mEq/L Potassium 4.0 (3.5-5.1) mEq/L Chloride 104 (98-107) mEq/L Carbon Dioxide 19 L (21-32) mEq/L Anion Gap 18.0 H (5-15) BUN 9 (7-18) mg/dL Creatinine 1.0 (0.7-1.3) mg/dL Est Cr Clr Drug Dosing 92.15 mL/min Estimated GFR (MDRD) > 60 (>60) mL/min BUN/Creatinine Ratio 9.0 L (14-18) Glucose 182 H (70-99) mg/dL POC Glucose 173 H 174 H (70-99) mg/dL Calcium 7.5 L (8.5-10.1) mg/dL Total Bilirubin (0.2-1.0) mg/dL AST (15-37) U/L ALT (16-63) U/L Alkaline Phosphatase (46-116) U/L NT-Pro-B Natriuret Pep (0-125) pg/mL Total Protein (6.4-8.2) g/dl Albumin (3.4-5.0) g/dl Globulin gm/dL Albumin/Globulin Ratio (1-2) 03/10/21 03/10/21 03/10/21 Range/Units 02:02 03:02 04:03 WBC (4.23-9.07) K/mm3 RBC (4.63-6.08) M/mm3 Hgb (13.7-17.5) gm/dl Hct (40.1-51.0) % MCV (79.0-92.2) fl MCH (25.7-32.2) pg MCHC (32.2-35.5) g/dl RDW Std Deviation (35.1-43.9) fL Plt Count (163-337) K/mm3 MPV (9.4-12.3) fl Neut % (Auto) (34.0-67.9) % Lymph % (Auto) (21.8-53.1) % [place] % (Auto) (5.3-12.2) % Eos % (Auto) (0.8-7.0) Baso % (Auto) (0.1-1.2) % Neut # (Auto) (1.78-5.38) K/mm3 Lymph # (Auto) (1.32-3.57) K/mm3 [place] # (Auto) (0.30-0.82) K/mm3 Eos # (Auto) (0.04-0.54) K/mm3 Baso # (Auto) (0.01-0.08) K/mm3 D-Dimer, Quantitative (0.19-0.50) mg/L Sodium (136-145) mEq/L Potassium (3.5-5.1) mEq/L Chloride (98-107) mEq/L Carbon Dioxide (21-32) mEq/L Anion Gap (5-15) BUN (7-18) mg/dL Creatinine (0.7-1.3) mg/dL Est Cr Clr Drug Dosing mL/min Estimated GFR (MDRD) (>60) mL/min BUN/Creatinine Ratio (14-18) Glucose (70-99) mg/dL POC Glucose 201 H 185 H 175 H (70-99) mg/dL Calcium (8.5-10.1) mg/dL Total Bilirubin (0.2-1.0) mg/dL AST (15-37) U/L ALT (16-63) U/L Alkaline Phosphatase (46-116) U/L NT-Pro-B Natriuret Pep (0-125) pg/mL Total Protein (6.4-8.2) g/dl Albumin (3.4-5.0) g/dl Globulin gm/dL Albumin/Globulin Ratio (1-2) 06/20/21 06/20/21 06/20/21 Range/Units 05:18 05:19 05:19 WBC 4.39 (4.23-9.07) K/mm3 RBC 3.56 L (4.63-6.08) M/mm3 Hgb 11.1 L D (13.7-17.5) gm/dl Hct 32.7 L (40.1-51.0) % MCV 91.9 (79.0-92.2) fl MCH 31.2 (25.7-32.2) pg MCHC 33.9 (32.2-35.5) g/dl RDW Std Deviation 45.3 H (35.1-43.9) fL Plt Count 150 L (163-337) K/mm3 MPV 8.5 L (9.4-12.3) fl Neut % (Auto) 55.6 (34.0-67.9) % Lymph % (Auto) 31.2 (21.8-53.1) % [place] % (Auto) 12.1 (5.3-12.2) % Eos % (Auto) 0.7 L (0.8-7.0) Baso % (Auto) 0.2 (0.1-1.2) % Neut # (Auto) 2.44 (1.78-5.38) K/mm3 Lymph # (Auto) 1.37 (1.32-3.57) K/mm3 [place] # (Auto) 0.53 (0.30-0.82) K/mm3 Eos # (Auto) 0.03 L (0.04-0.54) K/mm3 Baso # (Auto) 0.01 (0.01-0.08) K/mm3 D-Dimer, Quantitative (0.19-0.50) mg/L Sodium 138 (136-145) mEq/L Potassium 4.0 (3.5-5.1) mEq/L Chloride 104 (98-107) mEq/L Carbon Dioxide 18 L (21-32) mEq/L Anion Gap 20.0 H (5-15) BUN 9 (7-18) mg/dL Creatinine 1.1 (0.7-1.3) mg/dL Est Cr Clr Drug Dosing 82.25 mL/min Estimated GFR (MDRD) > 60 (>60) mL/min BUN/Creatinine Ratio 8.2 L (14-18) Glucose 173 H (70-99) mg/dL POC Glucose 160 H (70-99) mg/dL Calcium 8.0 L (8.5-10.1) mg/dL Total Bilirubin 0.7 (0.2-1.0) mg/dL AST 265 H (15-37) U/L ALT 406 H (16-63) U/L Alkaline Phosphatase 298 H (46-116) U/L NT-Pro-B Natriuret Pep (0-125) pg/mL Total Protein 6.0 L (6.4-8.2) g/dl Albumin 2.5 L (3.4-5.0) g/dl Globulin 3.5 gm/dL Albumin/Globulin Ratio 0.7 L (1-2) 03/10/21 03/10/21 03/10/21 Range/Units 06:15 07:36 08:30 WBC (4.23-9.07) K/mm3 RBC (4.63-6.08) M/mm3 Hgb (13.7-17.5) gm/dl Hct (40.1-51.0) % MCV (79.0-92.2) fl MCH (25.7-32.2) pg MCHC (32.2-35.5) g/dl RDW Std Deviation (35.1-43.9) fL Plt Count (163-337) K/mm3 MPV (9.4-12.3) fl Neut % (Auto) (34.0-67.9) % Lymph % (Auto) (21.8-53.1) % [place] % (Auto) (5.3-12.2) % Eos % (Auto) (0.8-7.0) Baso % (Auto) (0.1-1.2) % Neut # (Auto) (1.78-5.38) K/mm3 Lymph # (Auto) (1.32-3.57) K/mm3 [place] # (Auto) (0.30-0.82) K/mm3 Eos # (Auto) (0.04-0.54) K/mm3 Baso # (Auto) (0.01-0.08) K/mm3 D-Dimer, Quantitative (0.19-0.50) mg/L Sodium (136-145) mEq/L Potassium (3.5-5.1) mEq/L Chloride (98-107) mEq/L Carbon Dioxide (21-32) mEq/L Anion Gap (5-15) BUN (7-18) mg/dL Creatinine (0.7-1.3) mg/dL Est Cr Clr Drug Dosing mL/min Estimated GFR (MDRD) (>60) mL/min BUN/Creatinine Ratio (14-18) Glucose (70-99) mg/dL POC Glucose 255 H 246 H 178 H (70-99) mg/dL Calcium (8.5-10.1) mg/dL Total Bilirubin (0.2-1.0) mg/dL AST (15-37) U/L ALT (16-63) U/L Alkaline Phosphatase (46-116) U/L NT-Pro-B Natriuret Pep (0-125) pg/mL Total Protein (6.4-8.2) g/dl Albumin (3.4-5.0) g/dl Globulin gm/dL Albumin/Globulin Ratio (1-2) 03/10/21 03/10/21 03/10/21 Range/Units 09:36 10:28 11:16 WBC (4.23-9.07) K/mm3 RBC (4.63-6.08) M/mm3 Hgb (13.7-17.5) gm/dl Hct (40.1-51.0) % MCV (79.0-92.2) fl MCH (25.7-32.2) pg MCHC (32.2-35.5) g/dl RDW Std Deviation (35.1-43.9) fL Plt Count (163-337) K/mm3 MPV (9.4-12.3) fl Neut % (Auto) (34.0-67.9) % Lymph % (Auto) (21.8-53.1) % [place] % (Auto) (5.3-12.2) % Eos % (Auto) (0.8-7.0) Baso % (Auto) (0.1-1.2) % Neut # (Auto) (1.78-5.38) K/mm3 Lymph # (Auto) (1.32-3.57) K/mm3 [place] # (Auto) (0.30-0.82) K/mm3 Eos # (Auto) (0.04-0.54) K/mm3 Baso # (Auto) (0.01-0.08) K/mm3 D-Dimer, Quantitative (0.19-0.50) mg/L Sodium 134 L (136-145) mEq/L Potassium 3.8 (3.5-5.1) mEq/L Chloride 99 (98-107) mEq/L Carbon Dioxide 21 (21-32) mEq/L Anion Gap 17.8 H (5-15) BUN 9 (7-18) mg/dL Creatinine 1.1 (0.7-1.3) mg/dL Est Cr Clr Drug Dosing 82.25 mL/min Estimated GFR (MDRD) > 60 (>60) mL/min BUN/Creatinine Ratio 8.2 L (14-18) Glucose 225 H (70-99) mg/dL POC Glucose 227 H 227 H (70-99) mg/dL Calcium 7.7 L (8.5-10.1) mg/dL Total Bilirubin (0.2-1.0) mg/dL AST (15-37) U/L ALT (16-63) U/L Alkaline Phosphatase (46-116) U/L NT-Pro-B Natriuret Pep (0-125) pg/mL Total Protein (6.4-8.2) g/dl Albumin (3.4-5.0) g/dl Globulin gm/dL Albumin/Globulin Ratio (1-2) 03/10/21 03/10/21 Range/Units 11:33 12:33 WBC (4.23-9.07) K/mm3 RBC (4.63-6.08) M/mm3 Hgb (13.7-17.5) gm/dl Hct (40.1-51.0) % MCV (79.0-92.2) fl MCH (25.7-32.2) pg MCHC (32.2-35.5) g/dl RDW Std Deviation (35.1-43.9) fL Plt Count (163-337) K/mm3 MPV (9.4-12.3) fl Neut % (Auto) (34.0-67.9) % Lymph % (Auto) (21.8-53.1) % [place] % (Auto) (5.3-12.2) % Eos % (Auto) (0.8-7.0) Baso % (Auto) (0.1-1.2) % Neut # (Auto) (1.78-5.38) K/mm3 Lymph # (Auto) (1.32-3.57) K/mm3 [place] # (Auto) (0.30-0.82) K/mm3 Eos # (Auto) (0.04-0.54) K/mm3 Baso # (Auto) (0.01-0.08) K/mm3 D-Dimer, Quantitative (0.19-0.50) mg/L Sodium (136-145) mEq/L Potassium (3.5-5.1) mEq/L Chloride (98-107) mEq/L Carbon Dioxide (21-32) mEq/L Anion Gap (5-15) BUN (7-18) mg/dL Creatinine (0.7-1.3) mg/dL Est Cr Clr Drug Dosing mL/min Estimated GFR (MDRD) (>60) mL/min BUN/Creatinine Ratio (14-18) Glucose (70-99) mg/dL POC Glucose 237 H 314 H (70-99) mg/dL Calcium (8.5-10.1) mg/dL Total Bilirubin (0.2-1.0) mg/dL AST (15-37) U/L ALT (16-63) U/L Alkaline Phosphatase (46-116) U/L NT-Pro-B Natriuret Pep (0-125) pg/mL Total Protein (6.4-8.2) g/dl Albumin (3.4-5.0) g/dl Globulin gm/dL Albumin/Globulin Ratio (1-2) Rosalio Results Last 24 Hours: Microbiology 03/07/21 06:30 Aerobic Blood Culture - Preliminary Blood - Venous - Lab Draw NO GROWTH AFTER 3 DAYS Anaerobic Blood Culture - Preliminary NO GROWTH AFTER 3 DAYS 03/07/21 05:10 Aerobic Blood Culture - Preliminary Blood - Venous NO GROWTH AFTER 3 DAYS Anaerobic Blood Culture - Final Med Orders - Current: Current Medications Acetaminophen (Acetaminophen 325 Mg Tab) 325 mg PO Q6H PRN PRN Reason: Pain (Mild 1-3)/fever Albuterol/Ipratropium (Albuterol/Ipratropium 3.0-0.5 Mg/3 Ml Neb Soln) 3 ml NEB Q4H PRN PRN Reason: Shortness Of Breath/wheezing Last Admin: 03/10/21 04:43 Dose: 3 ml Documented by: Aspirin (Aspirin 81 Mg Tab.Ec) 81 mg PO DAILY PRINCE Last Admin: 03/10/21 08:31 Dose: 81 mg Documented by: Azithromycin (Azithromycin 250 Mg Tab) 250 mg PO DAILY PRINCE Stop: 03/13/21 23:59 Last Admin: 03/10/21 08:31 Dose: 250 mg Documented by: Enoxaparin Sodium (Enoxaparin 40 Mg/0.4 Ml Syringe) 40 mg SUBCUT BEDTIME PRINCE Last Admin: 03/09/21 20:08 Dose: 40 mg Documented by: Furosemide (Furosemide 20 Mg/2 Ml Vial) 20 mg IVPUSH BID PRINCE Stop: 03/11/21 09:01 Guaifenesin/Phenylephrine HCl (Guaifenesin/Dextromethorphan 100-10 Mg/5 Ml Soln 5 Ml Cup) 5 ml PO Q6H PRN PRN Reason: Cough Last Admin: 03/10/21 11:01 Dose: 5 ml Documented by: Insulin Human Regular 100 unit (/ Sodium Chloride) 100 mls @ 4.99 mls/hr IV TITRATE PRINCE; Protocol Last Titration: 03/10/21 12:35 Dose: 0.02 units/kg/hr, 1 mls/hr Documented by: Norepinephrine Bitartrate 4 mg (/ Dextrose/Water) 250 mls @ 7.5 mls/hr IV ASDIRECTED PRN; Protocol PRN Reason: To maintain a MAP of 65 Promethazine HCl 12.5 mg/ (Sodium Chloride) 50.5 mls @ 100 mls/hr IV Q6H PRN PRN Reason: Nausea/Vomiting Potassium Chloride/Dextrose/Sod Cl (D5 1/2 Ns W/ 20 Meq/L Kcl) 1,000 mls @ 65 mls/hr IV ASDIRECTED [facility]IN[facility] Last Admin: 03/09/21 23:09 Dose: 65 mls/hr Documented by: Metoprolol Tartrate (Metoprolol Tartrate 25 Mg Tab) 12.5 mg PO Q12H [facility] Last Admin: 03/10/21 06:18 Dose: 12.5 mg Documented by: Pantoprazole Sodium (Pantoprazole 40 Mg Vial) 40 mg IVPUSH DAILY [facility] Last Admin: 03/10/21 08:31 Dose: 40 mg Documented by: Discontinued Medications Aspirin (Aspirin 325 Mg Tab.Ec) 325 mg PO ONETIME ONE Stop: 03/07/21 04:31 Last Admin: 03/07/21 05:04 Dose: Not Given Documented by: Azithromycin (Azithromycin 250 Mg Tab) 500 mg PO ONETIME ONE Stop: 03/09/21 10:27 Last Admin: 03/09/21 11:38 Dose: 500 mg Documented by: Furosemide (Furosemide 20 Mg/2 Ml Vial) 20 mg IVPUSH BIDDIURETIC [facility] Last Admin: 03/10/21 06:19 Dose: 20 mg Documented by: Heparin Sodium (Porcine) (Heparin Sodium 5,000 Units/Ml Vial) 5,000 units SUBCUT Q8H [facility] Last Admin: 03/09/21 11:38 Dose: 5,000 units Documented by: Sodium Chloride (Normal Saline) 1,000 mls @ 999 mls/hr IV ONETIME ONE Stop: 03/06/21 20:58 Last Admin: 03/06/21 19:50 Dose: 999 mls/hr Documented by: Sodium Chloride (Normal Saline) 1,000 mls @ 999 mls/hr IV ONETIME ONE Stop: 03/06/21 20:58 Last Admin: 03/06/21 19:57 Dose: 999 mls/hr Documented by: Sodium Chloride (Normal Saline) Confirm Administered Dose 100 mls @ as directed .ROUTE .STK-MED ONE Stop: 03/06/21 21:04 Last Admin: 03/06/21 22:27 Dose: Not Given Documented by: Sodium Chloride (Normal Saline) 1,000 mls @ 300 mls/hr IV ASDIRECTED [facility] Last Admin: 03/06/21 20:35 Dose: 300 mls/hr Documented by: Sodium Chloride (Normal Saline) 1,000 mls @ 999 mls/hr IV ASDIRECTED [facility] Last Admin: 03/06/21 20:35 Dose: 999 mls/hr Documented by: Sodium Chloride (Sodium Chloride 0.45%) 1,000 mls @ 300 mls/hr IV ASDIRECTED [facility] Last Admin: 03/07/21 02:59 Dose: 300 mls/hr Documented by: Sodium Bicarbonate 100 meq/Potassium Chloride 20 meq/Sterile Water 510 mls @ 255 mls/hr IV ONETIME ONE Stop: 03/07/21 05:29 Last Admin: 03/07/21 04:22 Dose: 255 mls/hr Documented by: Sodium Bicarbonate 100 meq/Potassium Chloride 20 meq/Sterile Water 510 mls @ 255 mls/hr IV ONETIME ONE Stop: 03/07/21 07:29 Potassium Chloride/Sodium Chloride (1/2 Ns With 20 Meq Kcl) 1,000 mls @ 100 mls/hr IV ASDIRECTED [facility] Last Admin: 03/07/21 06:15 Dose: 100 mls/hr Documented by: Potassium Chloride/Dextrose/Sod Cl (D5 1/2 Ns W/ 20 Meq/L Kcl) 1,000 mls @ 100 mls/hr IV ASDIRECTED [facility] Last Infusion: 03/09/21 16:30 Dose: 65 mls/hr Documented by: Pantoprazole Sodium 40 mg/ (Sodium Chloride) 100 mls @ 200 mls/hr IV DAILY [facility] Insulin Human Regular (Insulin Regular, Human 100 Units/Ml 3 Ml Vial) Confirm Administered Dose 300 unit .ROUTE .STK-MED ONE Stop: 03/06/21 21:04 Last Admin: 03/06/21 22:27 Dose: Not Given Documented by: Iopamidol (Iopamidol 755 Mg/Ml 100 Ml Bottle) 100 ml IVPUSH ONETIME ONE Stop: 03/09/21 14:02 Last Admin: 03/09/21 14:40 Dose: 100 ml Documented by: Morphine Sulfate (Morphine 2 Mg/Ml Syringe) 2 mg IVPUSH Q4H PRN PRN Reason: Pain (Severe 4-10) Stop: 03/08/21 04:19 Last Admin: 03/07/21 10:17 Dose: 2 mg Documented by: Naloxone HCl (Naloxone 2 Mg/2 Ml Syringe) Confirm Administered Dose 2 mg .ROUTE .STK-MED ONE Stop: 03/06/21 19:53 Last Admin: 03/06/21 22:27 Dose: Not Given Documented by: Naloxone HCl (Naloxone 2 Mg/2 Ml Syringe) 2 mg IVPUSH ONETIME ONE Stop: 03/06/21 19:51 Last Admin: 03/06/21 19:50 Dose: 2 mg Documented by: Naloxone HCl (Naloxone 2 Mg/2 Ml Syringe) 2 mg IVPUSH ONETIME ONE Stop: 03/06/21 19:54 Last Admin: 03/06/21 19:53 Dose: 2 mg Documented by: Naloxone HCl (Naloxone 2 Mg/2 Ml Syringe) Confirm Administered Dose 2 mg .ROUTE .STK-MED ONE Stop: 03/06/21 19:51 Last Admin: 03/07/21 19:10 Dose: Not Given Documented by: Ondansetron HCl (Ondansetron 4 Mg/2 Ml Sdv) 4 mg IV Q6H PRN PRN Reason: Nausea/Vomiting - Exam 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 Total Time: 1Days 17Hours Physical Findings Comments:: General: No acute distress HEENT: Conjunctiva Clear, EOMI, Mucosa Moist & [place] Neck: Supple, Trachea Midline, NO JVD Lungs: CTA, normal Respiratory Effort, no Wheezing Cardiovascular: Regular Rate, Regular Rhythm GI/Abdominal Exam: Normal Bowel Sounds, Soft, Non-Tender, No Organomegaly, No Distention, No Abnormal Bruit, No Mass Extremities: Normal Inspection, Non-Tender, No Pedal Edema Skin: Warm, Dry, Intact Neurology: A+O x 3, no focal neurological deficits Psychiatric: Normal Mood - Patient Data Lab Results Last 24 hrs: Laboratory Results - last 24 hr 03/09/21 03/09/21 03/09/21 Range/Units 13:08 13:08 13:08 WBC (4.23-9.07) K/mm3 RBC (4.63-6.08) M/mm3 Hgb (13.7-17.5) gm/dl Hct (40.1-51.0) % MCV (79.0-92.2) fl MCH (25.7-32.2) pg MCHC (32.2-35.5) g/dl RDW Std Deviation (35.1-43.9) fL Plt Count (163-337) K/mm3 MPV (9.4-12.3) fl Neut % (Auto) (34.0-67.9) % Lymph % (Auto) (21.8-53.1) % [place] % (Auto) (5.3-12.2) % Eos % (Auto) (0.8-7.0) Baso % (Auto) (0.1-1.2) % Neut # (Auto) (1.78-5.38) K/mm3 Lymph # (Auto) (1.32-3.57) K/mm3 [place] # (Auto) (0.30-0.82) K/mm3 Eos # (Auto) (0.04-0.54) K/mm3 Baso # (Auto) (0.01-0.08) K/mm3 D-Dimer, Quantitative 1.58 H (0.19-0.50) mg/L Sodium 136 (136-145) mEq/L Potassium 3.9 (3.5-5.1) mEq/L Chloride 104 (98-107) mEq/L Carbon Dioxide 18 L (21-32) mEq/L Anion Gap 17.9 H (5-15) BUN 10 (7-18) mg/dL Creatinine 1.0 (0.7-1.3) mg/dL Est Cr Clr Drug Dosing 92.15 mL/min Estimated GFR (MDRD) > 60 (>60) mL/min BUN/Creatinine Ratio 10.0 L (14-18) Glucose 216 H (70-99) mg/dL POC Glucose (70-99) mg/dL Calcium 7.4 L (8.5-10.1) mg/dL Total Bilirubin 0.7 (0.2-1.0) mg/dL AST 415 H (15-37) U/L ALT 443 H (16-63) U/L Alkaline Phosphatase 278 H (46-116) U/L NT-Pro-B Natriuret Pep 3206 H (0-125) pg/mL Total Protein 5.5 L (6.4-8.2) g/dl Albumin 2.4 L (3.4-5.0) g/dl Globulin 3.1 gm/dL Albumin/Globulin Ratio 0.8 L (1-2) 03/09/21 03/09/21 03/09/21 Range/Units 13:31 14:48 15:56 WBC (4.23-9.07) K/mm3 RBC (4.63-6.08) M/mm3 Hgb (13.7-17.5) gm/dl Hct (40.1-51.0) % MCV (79.0-92.2) fl MCH (25.7-32.2) pg MCHC (32.2-35.5) g/dl RDW Std Deviation (35.1-43.9) fL Plt Count (163-337) K/mm3 MPV (9.4-12.3) fl Neut % (Auto) (34.0-67.9) % Lymph % (Auto) (21.8-53.1) % [place] % (Auto) (5.3-12.2) % Eos % (Auto) (0.8-7.0) Baso % (Auto) (0.1-1.2) % Neut # (Auto) (1.78-5.38) K/mm3 Lymph # (Auto) (1.32-3.57) K/mm3 [place] # (Auto) (0.30-0.82) K/mm3 Eos # (Auto) (0.04-0.54) K/mm3 Baso # (Auto) (0.01-0.08) K/mm3 D-Dimer, Quantitative (0.19-0.50) mg/L Sodium (136-145) mEq/L Potassium (3.5-5.1) mEq/L Chloride (98-107) mEq/L Carbon Dioxide (21-32) mEq/L Anion Gap (5-15) BUN (7-18) mg/dL Creatinine (0.7-1.3) mg/dL Est Cr Clr Drug Dosing mL/min Estimated GFR (MDRD) (>60) mL/min BUN/Creatinine Ratio (14-18) Glucose (70-99) mg/dL POC Glucose 196 H 217 H 259 H (70-99) mg/dL Calcium (8.5-10.1) mg/dL Total Bilirubin (0.2-1.0) mg/dL AST (15-37) U/L ALT (16-63) U/L Alkaline Phosphatase (46-116) U/L NT-Pro-B Natriuret Pep (0-125) pg/mL Total Protein (6.4-8.2) g/dl Albumin (3.4-5.0) g/dl Globulin gm/dL Albumin/Globulin Ratio (1-2) 03/09/21 03/09/21 03/09/21 Range/Units 17:00 17:18 18:02 WBC (4.23-9.07) K/mm3 RBC (4.63-6.08) M/mm3 Hgb (13.7-17.5) gm/dl Hct (40.1-51.0) % MCV (79.0-92.2) fl MCH (25.7-32.2) pg MCHC (32.2-35.5) g/dl RDW Std Deviation (35.1-43.9) fL Plt Count (163-337) K/mm3 MPV (9.4-12.3) fl Neut % (Auto) (34.0-67.9) % Lymph % (Auto) (21.8-53.1) % [place] % (Auto) (5.3-12.2) % Eos % (Auto) (0.8-7.0) Baso % (Auto) (0.1-1.2) % Neut # (Auto) (1.78-5.38) K/mm3 Lymph # (Auto) (1.32-3.57) K/mm3 [place] # (Auto) (0.30-0.82) K/mm3 Eos # (Auto) (0.04-0.54) K/mm3 Baso # (Auto) (0.01-0.08) K/mm3 D-Dimer, Quantitative (0.19-0.50) mg/L Sodium 135 L (136-145) mEq/L Potassium 4.0 (3.5-5.1) mEq/L Chloride 102 (98-107) mEq/L Carbon Dioxide 16 L (21-32) mEq/L Anion Gap 21.0 H (5-15) BUN 10 (7-18) mg/dL Creatinine 1.1 (0.7-1.3) mg/dL Est Cr Clr Drug Dosing 83.77 mL/min Estimated GFR (MDRD) > 60 (>60) mL/min BUN/Creatinine Ratio 9.1 L (14-18) Glucose 239 H (70-99) mg/dL POC Glucose 211 H 250 H (70-99) mg/dL Calcium 7.6 L (8.5-10.1) mg/dL Total Bilirubin 0.6 (0.2-1.0) mg/dL AST 356 H (15-37) U/L ALT 449 H (16-63) U/L Alkaline Phosphatase 291 H (46-116) U/L NT-Pro-B Natriuret Pep (0-125) pg/mL Total Protein 5.8 L (6.4-8.2) g/dl Albumin 2.5 L (3.4-5.0) g/dl Globulin 3.3 gm/dL Albumin/Globulin Ratio 0.8 L (1-2) 03/09/21 03/09/21 03/09/21 Range/Units 18:55 19:54 21:00 WBC (4.23-9.07) K/mm3 RBC (4.63-6.08) M/mm3 Hgb (13.7-17.5) gm/dl Hct (40.1-51.0) % MCV (79.0-92.2) fl MCH (25.7-32.2) pg MCHC (32.2-35.5) g/dl RDW Std Deviation (35.1-43.9) fL Plt Count (163-337) K/mm3 MPV (9.4-12.3) fl Neut % (Auto) (34.0-67.9) % Lymph % (Auto) (21.8-53.1) % [place] % (Auto) (5.3-12.2) % Eos % (Auto) (0.8-7.0) Baso % (Auto) (0.1-1.2) % Neut # (Auto) (1.78-5.38) K/mm3 Lymph # (Auto) (1.32-3.57) K/mm3 [place] # (Auto) (0.30-0.82) K/mm3 Eos # (Auto) (0.04-0.54) K/mm3 Baso # (Auto) (0.01-0.08) K/mm3 D-Dimer, Quantitative (0.19-0.50) mg/L Sodium 137 (136-145) mEq/L Potassium 4.1 (3.5-5.1) mEq/L Chloride 104 (98-107) mEq/L Carbon Dioxide 18 L (21-32) mEq/L Anion Gap 19.1 H (5-15) BUN 9 (7-18) mg/dL Creatinine 1.1 (0.7-1.3) mg/dL Est Cr Clr Drug Dosing 83.77 mL/min Estimated GFR (MDRD) > 60 (>60) mL/min BUN/Creatinine Ratio 8.2 L (14-18) Glucose 222 H (70-99) mg/dL POC Glucose 202 H 233 H (70-99) mg/dL Calcium 7.6 L (8.5-10.1) mg/dL Total Bilirubin (0.2-1.0) mg/dL AST (15-37) U/L ALT (16-63) U/L Alkaline Phosphatase (46-116) U/L NT-Pro-B Natriuret Pep (0-125) pg/mL Total Protein (6.4-8.2) g/dl Albumin (3.4-5.0) g/dl Globulin gm/dL Albumin/Globulin Ratio (1-2) 03/09/21 03/09/21 03/09/21 Range/Units 21:00 22:11 23:07 WBC (4.23-9.07) K/mm3 RBC (4.63-6.08) M/mm3 Hgb (13.7-17.5) gm/dl Hct (40.1-51.0) % MCV (79.0-92.2) fl MCH (25.7-32.2) pg MCHC (32.2-35.5) g/dl RDW Std Deviation (35.1-43.9) fL Plt Count (163-337) K/mm3 MPV (9.4-12.3) fl Neut % (Auto) (34.0-67.9) % Lymph % (Auto) (21.8-53.1) % [place] % (Auto) (5.3-12.2) % Eos % (Auto) (0.8-7.0) Baso % (Auto) (0.1-1.2) % Neut # (Auto) (1.78-5.38) K/mm3 Lymph # (Auto) (1.32-3.57) K/mm3 [place] # (Auto) (0.30-0.82) K/mm3 Eos # (Auto) (0.04-0.54) K/mm3 Baso # (Auto) (0.01-0.08) K/mm3 D-Dimer, Quantitative (0.19-0.50) mg/L Sodium (136-145) mEq/L Potassium (3.5-5.1) mEq/L Chloride (98-107) mEq/L Carbon Dioxide (21-32) mEq/L Anion Gap (5-15) BUN (7-18) mg/dL Creatinine (0.7-1.3) mg/dL Est Cr Clr Drug Dosing mL/min Estimated GFR (MDRD) (>60) mL/min BUN/Creatinine Ratio (14-18) Glucose (70-99) mg/dL POC Glucose 217 H 218 H 209 H (70-99) mg/dL Calcium (8.5-10.1) mg/dL Total Bilirubin (0.2-1.0) mg/dL AST (15-37) U/L ALT (16-63) U/L Alkaline Phosphatase (46-116) U/L NT-Pro-B Natriuret Pep (0-125) pg/mL Total Protein (6.4-8.2) g/dl Albumin (3.4-5.0) g/dl Globulin gm/dL Albumin/Globulin Ratio (1-2) 03/10/21 03/10/21 03/10/21 Range/Units 00:04 01:00 01:04 WBC (4.23-9.07) K/mm3 RBC (4.63-6.08) M/mm3 Hgb (13.7-17.5) gm/dl Hct (40.1-51.0) % MCV (79.0-92.2) fl MCH (25.7-32.2) pg MCHC (32.2-35.5) g/dl RDW Std Deviation (35.1-43.9) fL Plt Count (163-337) K/mm3 MPV (9.4-12.3) fl Neut % (Auto) (34.0-67.9) % Lymph % (Auto) (21.8-53.1) % [place] % (Auto) (5.3-12.2) % Eos % (Auto) (0.8-7.0) Baso % (Auto) (0.1-1.2) % Neut # (Auto) (1.78-5.38) K/mm3 Lymph # (Auto) (1.32-3.57) K/mm3 [place] # (Auto) (0.30-0.82) K/mm3 Eos # (Auto) (0.04-0.54) K/mm3 Baso # (Auto) (0.01-0.08) K/mm3 D-Dimer, Quantitative (0.19-0.50) mg/L Sodium 137 (136-145) mEq/L Potassium 4.0 (3.5-5.1) mEq/L Chloride 104 (98-107) mEq/L Carbon Dioxide 19 L (21-32) mEq/L Anion Gap 18.0 H (5-15) BUN 9 (7-18) mg/dL Creatinine 1.0 (0.7-1.3) mg/dL Est Cr Clr Drug Dosing 92.15 mL/min Estimated GFR (MDRD) > 60 (>60) mL/min BUN/Creatinine Ratio 9.0 L (14-18) Glucose 182 H (70-99) mg/dL POC Glucose 173 H 174 H (70-99) mg/dL Calcium 7.5 L (8.5-10.1) mg/dL Total Bilirubin (0.2-1.0) mg/dL AST (15-37) U/L ALT (16-63) U/L Alkaline Phosphatase (46-116) U/L NT-Pro-B Natriuret Pep (0-125) pg/mL Total Protein (6.4-8.2) g/dl Albumin (3.4-5.0) g/dl Globulin gm/dL Albumin/Globulin Ratio (1-2) 03/10/21 03/10/21 03/10/21 Range/Units 02:02 03:02 04:03 WBC (4.23-9.07) K/mm3 RBC (4.63-6.08) M/mm3 Hgb (13.7-17.5) gm/dl Hct (40.1-51.0) % MCV (79.0-92.2) fl MCH (25.7-32.2) pg MCHC (32.2-35.5) g/dl RDW Std Deviation (35.1-43.9) fL Plt Count (163-337) K/mm3 MPV (9.4-12.3) fl Neut % (Auto) (34.0-67.9) % Lymph % (Auto) (21.8-53.1) % [place] % (Auto) (5.3-12.2) % Eos % (Auto) (0.8-7.0) Baso % (Auto) (0.1-1.2) % Neut # (Auto) (1.78-5.38) K/mm3 Lymph # (Auto) (1.32-3.57) K/mm3 [place] # (Auto) (0.30-0.82) K/mm3 Eos # (Auto) (0.04-0.54) K/mm3 Baso # (Auto) (0.01-0.08) K/mm3 D-Dimer, Quantitative (0.19-0.50) mg/L Sodium (136-145) mEq/L Potassium (3.5-5.1) mEq/L Chloride (98-107) mEq/L Carbon Dioxide (21-32) mEq/L Anion Gap (5-15) BUN (7-18) mg/dL Creatinine (0.7-1.3) mg/dL Est Cr Clr Drug Dosing mL/min Estimated GFR (MDRD) (>60) mL/min BUN/Creatinine Ratio (14-18) Glucose (70-99) mg/dL POC Glucose 201 H 185 H 175 H (70-99) mg/dL Calcium (8.5-10.1) mg/dL Total Bilirubin (0.2-1.0) mg/dL AST (15-37) U/L ALT (16-63) U/L Alkaline Phosphatase (46-116) U/L NT-Pro-B Natriuret Pep (0-125) pg/mL Total Protein (6.4-8.2) g/dl Albumin (3.4-5.0) g/dl Globulin gm/dL Albumin/Globulin Ratio (1-2) 03/10/21 03/10/21 03/10/21 Range/Units 05:18 05:19 05:19 WBC 4.39 (4.23-9.07) K/mm3 RBC 3.56 L (4.63-6.08) M/mm3 Hgb 11.1 L D (13.7-17.5) gm/dl Hct 32.7 L (40.1-51.0) % MCV 91.9 (79.0-92.2) fl MCH 31.2 (25.7-32.2) pg MCHC 33.9 (32.2-35.5) g/dl RDW Std Deviation 45.3 H (35.1-43.9) fL Plt Count 150 L (163-337) K/mm3 MPV 8.5 L (9.4-12.3) fl Neut % (Auto) 55.6 (34.0-67.9) % Lymph % (Auto) 31.2 (21.8-53.1) % [place] % (Auto) 12.1 (5.3-12.2) % Eos % (Auto) 0.7 L (0.8-7.0) Baso % (Auto) 0.2 (0.1-1.2) % Neut # (Auto) 2.44 (1.78-5.38) K/mm3 Lymph # (Auto) 1.37 (1.32-3.57) K/mm3 [place] # (Auto) 0.53 (0.30-0.82) K/mm3 Eos # (Auto) 0.03 L (0.04-0.54) K/mm3 Baso # (Auto) 0.01 (0.01-0.08) K/mm3 D-Dimer, Quantitative (0.19-0.50) mg/L Sodium 138 (136-145) mEq/L Potassium 4.0 (3.5-5.1) mEq/L Chloride 104 (98-107) mEq/L Carbon Dioxide 18 L (21-32) mEq/L Anion Gap 20.0 H (5-15) BUN 9 (7-18) mg/dL Creatinine 1.1 (0.7-1.3) mg/dL Est Cr Clr Drug Dosing 82.25 mL/min Estimated GFR (MDRD) > 60 (>60) mL/min BUN/Creatinine Ratio 8.2 L (14-18) Glucose 173 H (70-99) mg/dL POC Glucose 160 H (70-99) mg/dL Calcium 8.0 L (8.5-10.1) mg/dL Total Bilirubin 0.7 (0.2-1.0) mg/dL AST 265 H (15-37) U/L ALT 406 H (16-63) U/L Alkaline Phosphatase 298 H (46-116) U/L NT-Pro-B Natriuret Pep (0-125) pg/mL Total Protein 6.0 L (6.4-8.2) g/dl Albumin 2.5 L (3.4-5.0) g/dl Globulin 3.5 gm/dL Albumin/Globulin Ratio 0.7 L (1-2) 03/10/21 03/10/21 03/10/21 Range/Units 06:15 07:36 08:30 WBC (4.23-9.07) K/mm3 RBC (4.63-6.08) M/mm3 Hgb (13.7-17.5) gm/dl Hct (40.1-51.0) % MCV (79.0-92.2) fl MCH (25.7-32.2) pg MCHC (32.2-35.5) g/dl RDW Std Deviation (35.1-43.9) fL Plt Count (163-337) K/mm3 MPV (9.4-12.3) fl Neut % (Auto) (34.0-67.9) % Lymph % (Auto) (21.8-53.1) % [place] % (Auto) (5.3-12.2) % Eos % (Auto) (0.8-7.0) Baso % (Auto) (0.1-1.2) % Neut # (Auto) (1.78-5.38) K/mm3 Lymph # (Auto) (1.32-3.57) K/mm3 [place] # (Auto) (0.30-0.82) K/mm3 Eos # (Auto) (0.04-0.54) K/mm3 Baso # (Auto) (0.01-0.08) K/mm3 D-Dimer, Quantitative (0.19-0.50) mg/L Sodium (136-145) mEq/L Potassium (3.5-5.1) mEq/L Chloride (98-107) mEq/L Carbon Dioxide (21-32) mEq/L Anion Gap (5-15) BUN (7-18) mg/dL Creatinine (0.7-1.3) mg/dL Est Cr Clr Drug Dosing mL/min Estimated GFR (MDRD) (>60) mL/min BUN/Creatinine Ratio (14-18) Glucose (70-99) mg/dL POC Glucose 255 H 246 H 178 H (70-99) mg/dL Calcium (8.5-10.1) mg/dL Total Bilirubin (0.2-1.0) mg/dL AST (15-37) U/L ALT (16-63) U/L Alkaline Phosphatase (46-116) U/L NT-Pro-B Natriuret Pep (0-125) pg/mL Total Protein (6.4-8.2) g/dl Albumin (3.4-5.0) g/dl Globulin gm/dL Albumin/Globulin Ratio (1-2) 03/10/21 03/10/21 03/10/21 Range/Units 09:36 10:28 11:16 WBC (4.23-9.07) K/mm3 RBC (4.63-6.08) M/mm3 Hgb (13.7-17.5) gm/dl Hct (40.1-51.0) % MCV (79.0-92.2) fl MCH (25.7-32.2) pg MCHC (32.2-35.5) g/dl RDW Std Deviation (35.1-43.9) fL Plt Count (163-337) K/mm3 MPV (9.4-12.3) fl Neut % (Auto) (34.0-67.9) % Lymph % (Auto) (21.8-53.1) % [place] % (Auto) (5.3-12.2) % Eos % (Auto) (0.8-7.0) Baso % (Auto) (0.1-1.2) % Neut # (Auto) (1.78-5.38) K/mm3 Lymph # (Auto) (1.32-3.57) K/mm3 [place] # (Auto) (0.30-0.82) K/mm3 Eos # (Auto) (0.04-0.54) K/mm3 Baso # (Auto) (0.01-0.08) K/mm3 D-Dimer, Quantitative (0.19-0.50) mg/L Sodium 134 L (136-145) mEq/L Potassium 3.8 (3.5-5.1) mEq/L Chloride 99 (98-107) mEq/L Carbon Dioxide 21 (21-32) mEq/L Anion Gap 17.8 H (5-15) BUN 9 (7-18) mg/dL Creatinine 1.1 (0.7-1.3) mg/dL Est Cr Clr Drug Dosing 82.25 mL/min Estimated GFR (MDRD) > 60 (>60) mL/min BUN/Creatinine Ratio 8.2 L (14-18) Glucose 225 H (70-99) mg/dL POC Glucose 227 H 227 H (70-99) mg/dL Calcium 7.7 L (8.5-10.1) mg/dL Total Bilirubin (0.2-1.0) mg/dL AST (15-37) U/L ALT (16-63) U/L Alkaline Phosphatase (46-116) U/L NT-Pro-B Natriuret Pep (0-125) pg/mL Total Protein (6.4-8.2) g/dl Albumin (3.4-5.0) g/dl Globulin gm/dL Albumin/Globulin Ratio (1-2) 03/10/21 03/10/21 Range/Units 11:33 12:33 WBC (4.23-9.07) K/mm3 RBC (4.63-6.08) M/mm3 Hgb (13.7-17.5) gm/dl Hct (40.1-51.0) % MCV (79.0-92.2) fl MCH (25.7-32.2) pg MCHC (32.2-35.5) g/dl RDW Std Deviation (35.1-43.9) fL Plt Count (163-337) K/mm3 MPV (9.4-12.3) fl Neut % (Auto) (34.0-67.9) % Lymph % (Auto) (21.8-53.1) % [place] % (Auto) (5.3-12.2) % Eos % (Auto) (0.8-7.0) Baso % (Auto) (0.1-1.2) % Neut # (Auto) (1.78-5.38) K/mm3 Lymph # (Auto) (1.32-3.57) K/mm3 [place] # (Auto) (0.30-0.82) K/mm3 Eos # (Auto) (0.04-0.54) K/mm3 Baso # (Auto) (0.01-0.08) K/mm3 D-Dimer, Quantitative (0.19-0.50) mg/L Sodium (136-145) mEq/L Potassium (3.5-5.1) mEq/L Chloride (98-107) mEq/L Carbon Dioxide (21-32) mEq/L Anion Gap (5-15) BUN (7-18) mg/dL Creatinine (0.7-1.3) mg/dL Est Cr Clr Drug Dosing mL/min Estimated GFR (MDRD) (>60) mL/min BUN/Creatinine Ratio (14-18) Glucose (70-99) mg/dL POC Glucose 237 H 314 H (70-99) mg/dL Calcium (8.5-10.1) mg/dL Total Bilirubin (0.2-1.0) mg/dL AST (15-37) U/L ALT (16-63) U/L Alkaline Phosphatase (46-116) U/L NT-Pro-B Natriuret Pep (0-125) pg/mL Total Protein (6.4-8.2) g/dl Albumin (3.4-5.0) g/dl Globulin gm/dL Albumin/Globulin Ratio (1-2) Result Diagrams: 03/10/21 05:19 03/10/21 11:16 Rosalio Results Last 24 hrs: Microbiology 03/07/21 06:30 Aerobic Blood Culture - Preliminary Blood - Venous - Lab Draw NO GROWTH AFTER 3 DAYS Anaerobic Blood Culture - Preliminary NO GROWTH AFTER 3 DAYS 03/07/21 05:10 Aerobic Blood Culture - Preliminary Blood - Venous NO GROWTH AFTER 3 DAYS Anaerobic Blood Culture - Final Sepsis Event Note - Evaluation Sepsis Screening Result: No Definite Risk - Focused Exam Vital Signs: Vital Signs Temp Pulse Resp BP BP Pulse Ox Pulse Ox 03/10/21 11:56 36.3 C 16 122/90 100 03/10/21 07:40 36.1 C 16 132/96 H 100 03/10/21 06:18 94 112/76 03/10/21 06:00 108 H 98 03/10/21 05:00 92 100 03/10/21 04:46 97 03/10/21 04:00 36.2 C 16 120/91 H 98 03/10/21 03:00 85 96 03/10/21 02:00 83 96 - Problem List Review Problem List Initiated/Reviewed/Updated: Yes - My Orders Last 24 Hours: My Active Orders 03/09/21 16:14 Echo 2D wo Cont [US] Urgent 03/09/21 16:15 Pantoprazole [ProTONIX IV] 40 mg IVPUSH DAILY 03/09/21 16:30 D5 1/2 NS w/ 20 mEq/L KCl 1,000 ml IV ASDIRECTED 03/09/21 21:00 Enoxaparin [Lovenox] 40 mg SUBCUT BEDTIME 03/10/21 09:00 Azithromycin [Zithromax] 250 mg PO DAILY 03/10/21 Lunch Clear Liquid Diet [DIET] 03/10/21 17:00 BASIC METABOLIC PANEL,BMP [CHEM] Q6H 03/10/21 21:00 Furosemide [Lasix] 20 mg IVPUSH BID 03/10/21 23:00 BASIC METABOLIC PANEL,BMP [CHEM] Q6H 03/11/21 05:00 CBC WITH AUTO DIFF [HEME] DAILY COMPREHENSIVE METABOLIC PN,CMP [CHEM] DAILY - Plan Plan:: Assessment/Plan Comment:: Patient is a 26-year-old male with a history of type 1 diabetes, substance abus e, medical noncompliance and history of DKA who was brought to the ER due to AMS. Pt was admitted to our hospital with similar presentation. AMS - resolved -Etiology unknown. Could be due to metabolic encephalopathy, dehydration, substance abuse, infection, stroke from use of cocaine, etc -CT of head - no acute change -Blood culture negative -IV fluid -Monitoring in ICU Acute hypoxic respiratory failure - resolved -D-dimer 1.58 -CT angio showed no evidence of a PE; new small bilateral pleural effusions; moderate patchy bilateral ground-glass opacities, increased. Mild dependent bilateral consolidation, decreased. Leading differential considerations include pneumonia or possibly pulmonary edema with the atelectasis. I feel he may have pulmonary edema. There is no much evidence of pneumonia. Afebrile. WBC trending down to normal, 4.82 today. I will not escalate his abx and continue azithromycin for bronchitis. -lasix 20mg iv x 2. DKA DM type 1 -anion gap 20, bicarbonate 18 -continue DKA protocol: continue insulin drip and KCl 20mEq D5 1/2 NS 65ml/hr -clear liquid -Diabetic education Hypotension - resolved -continue ivf Cocaine abuse -Urine drug screen positive for cocaine -aspirin -serum osmolality is elevated at 360. -salicylate level is within normal limits at 8.6. -acetaminophen level is 0. -EtOH level is 0.00. 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 It was 0.7 on 01/21/2021 -Most likely due to prerenal cause -Avoid nephrotoxic meds -IV fluid -Creatinine normalized -Repeat the renal function morning Elevation of liver enzymes -AST 360, ALT 653, Alk phos 364, Tbil 1.0 on admission -trending down -Repeat the liver function in morning Bronchitis -cough with sputum -CXR -possible bronchitis, worse within the left perihilar region -Azithromycin DVT prophylaxis: Lovenox
[2021-03-10] MEDS: D5 1/2 NS w/ 20 mEq/L KCl 1,000 ML IV SCH (14:39)
[2021-03-10] MEDS ORDERED: Sodium Chloride 0.9% 100 ML ONE (19:08)
[2021-03-10] MEDS: Enoxaparin 40 MG/0.4 ML Syringe SUBCUT SCH (20:36)
[2021-03-11] MEDS: guaiFENesin/Dextromethorphan 100-10 MG/5 ML Soln 5 ML Cup PO PRN (05:13)
[2021-03-11] MEDS: Metoprolol Tartrate 25 MG Tab PO SCH ×2 (05:14→16:39)
[2021-03-11] MEDS: D5 1/2 NS w/ 20 mEq/L KCl 1,000 ML IV SCH (06:07)
--- NOTE | 2021-03-11 08:46 | PCM.PN ---
<Jay Aleman - Last Filed: 03/11/21 10:48> - General Info Date of Service: 03/11/21 Admission Dx/Problem (Free Text): Admission Diagnosis/Problem Admission Diagnosis/Problem Diabetic ketoacidosis Functional Status: Reports: Pain Controlled, Tolerating Diet, Ambulating, Urinating. Denies: New Symptoms - Review of Systems General: Reports: No Symptoms. Denies: Fever, Weakness, Fatigue, Malaise, Chill s HEENT: Reports: No Symptoms. Denies: Contact Lenses Pulmonary: Reports: Cough (chronic ). Denies: Shortness of Breath, Pleuritic Chest Pain, Sputum, Wheezing Cardiovascular: Reports: No Symptoms. Denies: Chest Pain, Dyspnea on Exertion, Edema Gastrointestinal: Reports: No Symptoms. Denies: Abdominal Pain, Constipation, Diarrhea, Nausea, Vomiting Genitourinary: Reports: No Symptoms. Denies: Pain Musculoskeletal: Reports: No Symptoms Skin: Reports: No Symptoms. Denies: Cyanosis Neurological: Reports: No Symptoms. Denies: Confusion, Headache, Numbness, Tingling, Difficulty Walking, Weakness, Gait Disturbance Psychiatric: Reports: No Symptoms - Patient Data Vitals - Most Recent: Last Vital Signs Temp 97.4 F 03/11/21 04:00 Pulse 96 03/11/21 05:14 Resp 16 03/11/21 04:00 BP 120/84 03/11/21 05:14 Pulse Ox 98 03/11/21 05:00 Weight - Most Recent: 52.208 kg I&O - Last 24 Hours: Intake & Output 03/10/21 03/11/21 03/11/21 22:59 06:59 14:59 Intake Total 3068 1561 Output Total 2200 Balance 868 1561 Lab Results Last 24 Hours: Laboratory Results - last 24 hr 03/10/21 03/10/21 03/10/21 Range/Units 09:36 10:28 11:16 WBC (4.23-9.07) K/mm3 RBC (4.63-6.08) M/mm3 Hgb (13.7-17.5) gm/dl Hct (40.1-51.0) % MCV (79.0-92.2) fl MCH (25.7-32.2) pg MCHC (32.2-35.5) g/dl RDW Std Deviation (35.1-43.9) fL Plt Count (163-337) K/mm3 MPV (9.4-12.3) fl Neut % (Auto) (34.0-67.9) % Lymph % (Auto) (21.8-53.1) % Isabella % (Auto) (5.3-12.2) % Eos % (Auto) (0.8-7.0) Baso % (Auto) (0.1-1.2) % Neut # (Auto) (1.78-5.38) K/mm3 Lymph # (Auto) (1.32-3.57) K/mm3 Isabella # (Auto) (0.30-0.82) K/mm3 Eos # (Auto) (0.04-0.54) K/mm3 Baso # (Auto) (0.01-0.08) K/mm3 Sodium 134 L (136-145) mEq/L Potassium 3.8 (3.5-5.1) mEq/L Chloride 99 (98-107) mEq/L Carbon Dioxide 21 (21-32) mEq/L Anion Gap 17.8 H (5-15) BUN 9 (7-18) mg/dL Creatinine 1.1 (0.7-1.3) mg/dL Est Cr Clr Drug Dosing 82.25 mL/min Estimated GFR (MDRD) > 60 (>60) mL/min BUN/Creatinine Ratio 8.2 L (14-18) Glucose 225 H (70-99) mg/dL POC Glucose 227 H 227 H (70-99) mg/dL Calcium 7.7 L (8.5-10.1) mg/dL Total Bilirubin (0.2-1.0) mg/dL AST (15-37) U/L ALT (16-63) U/L Alkaline Phosphatase (46-116) U/L Total Protein (6.4-8.2) g/dl Albumin (3.4-5.0) g/dl Globulin gm/dL Albumin/Globulin Ratio (1-2) 03/10/21 03/10/21 03/10/21 Range/Units 11:33 12:33 13:31 WBC (4.23-9.07) K/mm3 RBC (4.63-6.08) M/mm3 Hgb (13.7-17.5) gm/dl Hct (40.1-51.0) % MCV (79.0-92.2) fl MCH (25.7-32.2) pg MCHC (32.2-35.5) g/dl RDW Std Deviation (35.1-43.9) fL Plt Count (163-337) K/mm3 MPV (9.4-12.3) fl Neut % (Auto) (34.0-67.9) % Lymph % (Auto) (21.8-53.1) % Isabella % (Auto) (5.3-12.2) % Eos % (Auto) (0.8-7.0) Baso % (Auto) (0.1-1.2) % Neut # (Auto) (1.78-5.38) K/mm3 Lymph # (Auto) (1.32-3.57) K/mm3 Isabella # (Auto) (0.30-0.82) K/mm3 Eos # (Auto) (0.04-0.54) K/mm3 Baso # (Auto) (0.01-0.08) K/mm3 Sodium (136-145) mEq/L Potassium (3.5-5.1) mEq/L Chloride (98-107) mEq/L Carbon Dioxide (21-32) mEq/L Anion Gap (5-15) BUN (7-18) mg/dL Creatinine (0.7-1.3) mg/dL Est Cr Clr Drug Dosing mL/min Estimated GFR (MDRD) (>60) mL/min BUN/Creatinine Ratio (14-18) Glucose (70-99) mg/dL POC Glucose 237 H 314 H 344 H (70-99) mg/dL Calcium (8.5-10.1) mg/dL Total Bilirubin (0.2-1.0) mg/dL AST (15-37) U/L ALT (16-63) U/L Alkaline Phosphatase (46-116) U/L Total Protein (6.4-8.2) g/dl Albumin (3.4-5.0) g/dl Globulin gm/dL Albumin/Globulin Ratio (1-2) 03/10/21 03/10/21 03/10/21 Range/Units 14:33 15:31 16:30 WBC (4.23-9.07) K/mm3 RBC (4.63-6.08) M/mm3 Hgb (13.7-17.5) gm/dl Hct (40.1-51.0) % MCV (79.0-92.2) fl MCH (25.7-32.2) pg MCHC (32.2-35.5) g/dl RDW Std Deviation (35.1-43.9) fL Plt Count (163-337) K/mm3 MPV (9.4-12.3) fl Neut % (Auto) (34.0-67.9) % Lymph % (Auto) (21.8-53.1) % Isabella % (Auto) (5.3-12.2) % Eos % (Auto) (0.8-7.0) Baso % (Auto) (0.1-1.2) % Neut # (Auto) (1.78-5.38) K/mm3 Lymph # (Auto) (1.32-3.57) K/mm3 Isabella # (Auto) (0.30-0.82) K/mm3 Eos # (Auto) (0.04-0.54) K/mm3 Baso # (Auto) (0.01-0.08) K/mm3 Sodium (136-145) mEq/L Potassium (3.5-5.1) mEq/L Chloride (98-107) mEq/L Carbon Dioxide (21-32) mEq/L Anion Gap (5-15) BUN (7-18) mg/dL Creatinine (0.7-1.3) mg/dL Est Cr Clr Drug Dosing mL/min Estimated GFR (MDRD) (>60) mL/min BUN/Creatinine Ratio (14-18) Glucose (70-99) mg/dL POC Glucose 233 H 176 H 158 H (70-99) mg/dL Calcium (8.5-10.1) mg/dL Total Bilirubin (0.2-1.0) mg/dL AST (15-37) U/L ALT (16-63) U/L Alkaline Phosphatase (46-116) U/L Total Protein (6.4-8.2) g/dl Albumin (3.4-5.0) g/dl Globulin gm/dL Albumin/Globulin Ratio (1-2) 06/20/21 06/20/21 06/20/21 Range/Units 16:58 17:35 18:32 WBC (4.23-9.07) K/mm3 RBC (4.63-6.08) M/mm3 Hgb (13.7-17.5) gm/dl Hct (40.1-51.0) % MCV (79.0-92.2) fl MCH (25.7-32.2) pg MCHC (32.2-35.5) g/dl RDW Std Deviation (35.1-43.9) fL Plt Count (163-337) K/mm3 MPV (9.4-12.3) fl Neut % (Auto) (34.0-67.9) % Lymph % (Auto) (21.8-53.1) % Isabella % (Auto) (5.3-12.2) % Eos % (Auto) (0.8-7.0) Baso % (Auto) (0.1-1.2) % Neut # (Auto) (1.78-5.38) K/mm3 Lymph # (Auto) (1.32-3.57) K/mm3 Isabella # (Auto) (0.30-0.82) K/mm3 Eos # (Auto) (0.04-0.54) K/mm3 Baso # (Auto) (0.01-0.08) K/mm3 Sodium 137 (136-145) mEq/L Potassium 3.5 (3.5-5.1) mEq/L Chloride 102 (98-107) mEq/L Carbon Dioxide 19 L (21-32) mEq/L Anion Gap 19.5 H (5-15) BUN 8 (7-18) mg/dL Creatinine 1.1 (0.7-1.3) mg/dL Est Cr Clr Drug Dosing 82.25 mL/min Estimated GFR (MDRD) > 60 (>60) mL/min BUN/Creatinine Ratio 7.3 L (14-18) Glucose 151 H (70-99) mg/dL POC Glucose 114 H 113 H (70-99) mg/dL Calcium 7.5 L (8.5-10.1) mg/dL Total Bilirubin (0.2-1.0) mg/dL AST (15-37) U/L ALT (16-63) U/L Alkaline Phosphatase (46-116) U/L Total Protein (6.4-8.2) g/dl Albumin (3.4-5.0) g/dl Globulin gm/dL Albumin/Globulin Ratio (1-2) 03/10/21 03/10/21 03/10/21 Range/Units 19:37 20:35 21:36 WBC (4.23-9.07) K/mm3 RBC (4.63-6.08) M/mm3 Hgb (13.7-17.5) gm/dl Hct (40.1-51.0) % MCV (79.0-92.2) fl MCH (25.7-32.2) pg MCHC (32.2-35.5) g/dl RDW Std Deviation (35.1-43.9) fL Plt Count (163-337) K/mm3 MPV (9.4-12.3) fl Neut % (Auto) (34.0-67.9) % Lymph % (Auto) (21.8-53.1) % Isabella % (Auto) (5.3-12.2) % Eos % (Auto) (0.8-7.0) Baso % (Auto) (0.1-1.2) % Neut # (Auto) (1.78-5.38) K/mm3 Lymph # (Auto) (1.32-3.57) K/mm3 Isabella # (Auto) (0.30-0.82) K/mm3 Eos # (Auto) (0.04-0.54) K/mm3 Baso # (Auto) (0.01-0.08) K/mm3 Sodium (136-145) mEq/L Potassium (3.5-5.1) mEq/L Chloride (98-107) mEq/L Carbon Dioxide (21-32) mEq/L Anion Gap (5-15) BUN (7-18) mg/dL Creatinine (0.7-1.3) mg/dL Est Cr Clr Drug Dosing mL/min Estimated GFR (MDRD) (>60) mL/min BUN/Creatinine Ratio (14-18) Glucose (70-99) mg/dL POC Glucose 117 H 134 H 206 H (70-99) mg/dL Calcium (8.5-10.1) mg/dL Total Bilirubin (0.2-1.0) mg/dL AST (15-37) U/L ALT (16-63) U/L Alkaline Phosphatase (46-116) U/L Total Protein (6.4-8.2) g/dl Albumin (3.4-5.0) g/dl Globulin gm/dL Albumin/Globulin Ratio (1-2) 03/10/21 03/10/21 03/10/21 Range/Units 22:41 23:08 23:12 WBC (4.23-9.07) K/mm3 RBC (4.63-6.08) M/mm3 Hgb (13.7-17.5) gm/dl Hct (40.1-51.0) % MCV (79.0-92.2) fl MCH (25.7-32.2) pg MCHC (32.2-35.5) g/dl RDW Std Deviation (35.1-43.9) fL Plt Count (163-337) K/mm3 MPV (9.4-12.3) fl Neut % (Auto) (34.0-67.9) % Lymph % (Auto) (21.8-53.1) % Isabella % (Auto) (5.3-12.2) % Eos % (Auto) (0.8-7.0) Baso % (Auto) (0.1-1.2) % Neut # (Auto) (1.78-5.38) K/mm3 Lymph # (Auto) (1.32-3.57) K/mm3 Isabella # (Auto) (0.30-0.82) K/mm3 Eos # (Auto) (0.04-0.54) K/mm3 Baso # (Auto) (0.01-0.08) K/mm3 Sodium 138 (136-145) mEq/L Potassium 3.7 (3.5-5.1) mEq/L Chloride 101 (98-107) mEq/L Carbon Dioxide 21 (21-32) mEq/L Anion Gap 19.7 H (5-15) BUN 7 (7-18) mg/dL Creatinine 1.1 (0.7-1.3) mg/dL Est Cr Clr Drug Dosing 82.25 mL/min Estimated GFR (MDRD) > 60 (>60) mL/min BUN/Creatinine Ratio 6.4 L (14-18) Glucose 241 H (70-99) mg/dL POC Glucose 257 H 243 H (70-99) mg/dL Calcium 8.0 L (8.5-10.1) mg/dL Total Bilirubin (0.2-1.0) mg/dL AST (15-37) U/L ALT (16-63) U/L Alkaline Phosphatase (46-116) U/L Total Protein (6.4-8.2) g/dl Albumin (3.4-5.0) g/dl Globulin gm/dL Albumin/Globulin Ratio (1-2) 03/11/21 03/11/21 03/11/21 Range/Units 00:13 01:11 02:08 WBC (4.23-9.07) K/mm3 RBC (4.63-6.08) M/mm3 Hgb (13.7-17.5) gm/dl Hct (40.1-51.0) % MCV (79.0-92.2) fl MCH (25.7-32.2) pg MCHC (32.2-35.5) g/dl RDW Std Deviation (35.1-43.9) fL Plt Count (163-337) K/mm3 MPV (9.4-12.3) fl Neut % (Auto) (34.0-67.9) % Lymph % (Auto) (21.8-53.1) % Isabella % (Auto) (5.3-12.2) % Eos % (Auto) (0.8-7.0) Baso % (Auto) (0.1-1.2) % Neut # (Auto) (1.78-5.38) K/mm3 Lymph # (Auto) (1.32-3.57) K/mm3 Isabella # (Auto) (0.30-0.82) K/mm3 Eos # (Auto) (0.04-0.54) K/mm3 Baso # (Auto) (0.01-0.08) K/mm3 Sodium (136-145) mEq/L Potassium (3.5-5.1) mEq/L Chloride (98-107) mEq/L Carbon Dioxide (21-32) mEq/L Anion Gap (5-15) BUN (7-18) mg/dL Creatinine (0.7-1.3) mg/dL Est Cr Clr Drug Dosing mL/min Estimated GFR (MDRD) (>60) mL/min BUN/Creatinine Ratio (14-18) Glucose (70-99) mg/dL POC Glucose 276 H 312 H 240 H (70-99) mg/dL Calcium (8.5-10.1) mg/dL Total Bilirubin (0.2-1.0) mg/dL AST (15-37) U/L ALT (16-63) U/L Alkaline Phosphatase (46-116) U/L Total Protein (6.4-8.2) g/dl Albumin (3.4-5.0) g/dl Globulin gm/dL Albumin/Globulin Ratio (1-2) 03/11/21 03/11/21 03/11/21 Range/Units 03:13 04:10 05:10 WBC 4.19 L (4.23-9.07) K/mm3 RBC 3.67 L (4.63-6.08) M/mm3 Hgb 11.4 L (13.7-17.5) gm/dl Hct 33.3 L (40.1-51.0) % MCV 90.7 (79.0-92.2) fl MCH 31.1 (25.7-32.2) pg MCHC 34.2 (32.2-35.5) g/dl RDW Std Deviation 44.1 H (35.1-43.9) fL Plt Count 178 (163-337) K/mm3 MPV 8.8 L (9.4-12.3) fl Neut % (Auto) 52.4 (34.0-67.9) % Lymph % (Auto) 30.5 (21.8-53.1) % Isabella % (Auto) 14.8 H (5.3-12.2) % Eos % (Auto) 1.9 (0.8-7.0) Baso % (Auto) 0.2 (0.1-1.2) % Neut # (Auto) 2.19 (1.78-5.38) K/mm3 Lymph # (Auto) 1.28 L (1.32-3.57) K/mm3 Isabella # (Auto) 0.62 (0.30-0.82) K/mm3 Eos # (Auto) 0.08 (0.04-0.54) K/mm3 Baso # (Auto) 0.01 (0.01-0.08) K/mm3 Sodium (136-145) mEq/L Potassium (3.5-5.1) mEq/L Chloride (98-107) mEq/L Carbon Dioxide (21-32) mEq/L Anion Gap (5-15) BUN (7-18) mg/dL Creatinine (0.7-1.3) mg/dL Est Cr Clr Drug Dosing mL/min Estimated GFR (MDRD) (>60) mL/min BUN/Creatinine Ratio (14-18) Glucose (70-99) mg/dL POC Glucose 170 H 157 H (70-99) mg/dL Calcium (8.5-10.1) mg/dL Total Bilirubin (0.2-1.0) mg/dL AST (15-37) U/L ALT (16-63) U/L Alkaline Phosphatase (46-116) U/L Total Protein (6.4-8.2) g/dl Albumin (3.4-5.0) g/dl Globulin gm/dL Albumin/Globulin Ratio (1-2) 03/11/21 03/11/21 03/11/21 Range/Units 05:10 05:11 06:05 WBC (4.23-9.07) K/mm3 RBC (4.63-6.08) M/mm3 Hgb (13.7-17.5) gm/dl Hct (40.1-51.0) % MCV (79.0-92.2) fl MCH (25.7-32.2) pg MCHC (32.2-35.5) g/dl RDW Std Deviation (35.1-43.9) fL Plt Count (163-337) K/mm3 MPV (9.4-12.3) fl Neut % (Auto) (34.0-67.9) % Lymph % (Auto) (21.8-53.1) % Isabella % (Auto) (5.3-12.2) % Eos % (Auto) (0.8-7.0) Baso % (Auto) (0.1-1.2) % Neut # (Auto) (1.78-5.38) K/mm3 Lymph # (Auto) (1.32-3.57) K/mm3 Isabella # (Auto) (0.30-0.82) K/mm3 Eos # (Auto) (0.04-0.54) K/mm3 Baso # (Auto) (0.01-0.08) K/mm3 Sodium 143 (136-145) mEq/L Potassium 3.8 (3.5-5.1) mEq/L Chloride 104 (98-107) mEq/L Carbon Dioxide 24 (21-32) mEq/L Anion Gap 18.8 H (5-15) BUN 7 (7-18) mg/dL Creatinine 1.0 (0.7-1.3) mg/dL Est Cr Clr Drug Dosing 84.11 mL/min Estimated GFR (MDRD) > 60 (>60) mL/min BUN/Creatinine Ratio 7.0 L (14-18) Glucose 146 H (70-99) mg/dL POC Glucose 143 H 123 H (70-99) mg/dL Calcium 8.2 L (8.5-10.1) mg/dL Total Bilirubin 0.5 (0.2-1.0) mg/dL AST 163 H (15-37) U/L ALT 361 H (16-63) U/L Alkaline Phosphatase 293 H (46-116) U/L Total Protein 6.1 L (6.4-8.2) g/dl Albumin 2.5 L (3.4-5.0) g/dl Globulin 3.6 gm/dL Albumin/Globulin Ratio 0.7 L (1-2) 03/11/21 03/11/21 Range/Units 07:09 08:18 WBC (4.23-9.07) K/mm3 RBC (4.63-6.08) M/mm3 Hgb (13.7-17.5) gm/dl Hct (40.1-51.0) % MCV (79.0-92.2) fl MCH (25.7-32.2) pg MCHC (32.2-35.5) g/dl RDW Std Deviation (35.1-43.9) fL Plt Count (163-337) K/mm3 MPV (9.4-12.3) fl Neut % (Auto) (34.0-67.9) % Lymph % (Auto) (21.8-53.1) % Isabella % (Auto) (5.3-12.2) % Eos % (Auto) (0.8-7.0) Baso % (Auto) (0.1-1.2) % Neut # (Auto) (1.78-5.38) K/mm3 Lymph # (Auto) (1.32-3.57) K/mm3 Isabella # (Auto) (0.30-0.82) K/mm3 Eos # (Auto) (0.04-0.54) K/mm3 Baso # (Auto) (0.01-0.08) K/mm3 Sodium (136-145) mEq/L Potassium (3.5-5.1) mEq/L Chloride (98-107) mEq/L Carbon Dioxide (21-32) mEq/L Anion Gap (5-15) BUN (7-18) mg/dL Creatinine (0.7-1.3) mg/dL Est Cr Clr Drug Dosing mL/min Estimated GFR (MDRD) (>60) mL/min BUN/Creatinine Ratio (14-18) Glucose (70-99) mg/dL POC Glucose 125 H 118 H (70-99) mg/dL Calcium (8.5-10.1) mg/dL Total Bilirubin (0.2-1.0) mg/dL AST (15-37) U/L ALT (16-63) U/L Alkaline Phosphatase (46-116) U/L Total Protein (6.4-8.2) g/dl Albumin (3.4-5.0) g/dl Globulin gm/dL Albumin/Globulin Ratio (1-2) Rosalio Results Last 24 Hours: Microbiology 03/07/21 06:30 Aerobic Blood Culture - Preliminary Blood - Venous - Lab Draw NO GROWTH AFTER 4 DAYS Anaerobic Blood Culture - Preliminary NO GROWTH AFTER 4 DAYS 03/07/21 05:10 Aerobic Blood Culture - Preliminary Blood - Venous NO GROWTH AFTER 4 DAYS Anaerobic Blood Culture - Final Med Orders - Current: Current Medications Acetaminophen (Acetaminophen 325 Mg Tab) 325 mg PO Q6H PRN PRN Reason: Pain (Mild 1-3)/fever Albuterol/Ipratropium (Albuterol/Ipratropium 3.0-0.5 Mg/3 Ml Neb Soln) 3 ml NEB Q4H PRN PRN Reason: Shortness Of Breath/wheezing Last Admin: 03/10/21 04:43 Dose: 3 ml Documented by: Aspirin (Aspirin 81 Mg Tab.Ec) 81 mg PO DAILY [facility] Last Admin: 03/10/21 08:31 Dose: 81 mg Documented by: Azithromycin (Azithromycin 250 Mg Tab) 250 mg PO DAILY [facility] Stop: 03/13/21 23:59 Last Admin: 03/10/21 08:31 Dose: 250 mg Documented by: Enoxaparin Sodium (Enoxaparin 40 Mg/0.4 Ml Syringe) 40 mg SUBCUT BEDTIME [facility] Last Admin: 03/10/21 20:36 Dose: 40 mg Documented by: Furosemide (Furosemide 20 Mg/2 Ml Vial) 20 mg IVPUSH BID [facility] Stop: 03/11/21 09:01 Last Admin: 03/10/21 20:37 Dose: 20 mg Documented by: Guaifenesin/Phenylephrine HCl (Guaifenesin/Dextromethorphan 100-10 Mg/5 Ml Soln 5 Ml Cup) 5 ml PO Q6H PRN PRN Reason: Cough Last Admin: 03/11/21 05:13 Dose: 5 ml Documented by: Promethazine HCl 12.5 mg/ (Sodium Chloride) 50.5 mls @ 100 mls/hr IV Q6H PRN PRN Reason: Nausea/Vomiting Potassium Chloride/Dextrose/Sod Cl (D5 1/2 Ns W/ 20 Meq/L Kcl) 1,000 mls @ 65 mls/hr IV ASDIRECTED [facility] Last Admin: 03/11/21 06:07 Dose: 65 mls/hr Documented by: Insulin Human Lispro (Insulin Lispro 100 Unit/Ml 10 Ml Vial) 0 unit SUBCUT QIDACANDBED [facility]; Protocol Metoprolol Tartrate (Metoprolol Tartrate 25 Mg Tab) 12.5 mg PO Q12H [facility] Last Admin: 03/11/21 05:14 Dose: 12.5 mg Documented by: Pantoprazole Sodium (Pantoprazole 40 Mg Vial) 40 mg IVPUSH DAILY [facility] Last Admin: 03/10/21 08:31 Dose: 40 mg Documented by: Discontinued Medications Aspirin (Aspirin 325 Mg Tab.Ec) 325 mg PO ONETIME ONE Stop: 03/07/21 04:31 Last Admin: 03/07/21 05:04 Dose: Not Given Documented by: Azithromycin (Azithromycin 250 Mg Tab) 500 mg PO ONETIME ONE Stop: 03/09/21 10:27 Last Admin: 03/09/21 11:38 Dose: 500 mg Documented by: Furosemide (Furosemide 20 Mg/2 Ml Vial) 20 mg IVPUSH BIDDIURETIC [facility] Last Admin: 03/10/21 06:19 Dose: 20 mg Documented by: Heparin Sodium (Porcine) (Heparin Sodium 5,000 Units/Ml Vial) 5,000 units SUBCUT Q8H [facility] Last Admin: 03/09/21 11:38 Dose: 5,000 units Documented by: Sodium Chloride (Normal Saline) 1,000 mls @ 999 mls/hr IV ONETIME ONE Stop: 03/06/21 20:58 Last Admin: 03/06/21 19:50 Dose: 999 mls/hr Documented by: Sodium Chloride (Normal Saline) 1,000 mls @ 999 mls/hr IV ONETIME ONE Stop: 03/06/21 20:58 Last Admin: 03/06/21 19:57 Dose: 999 mls/hr Documented by: Insulin Human Regular 100 unit (/ Sodium Chloride) 100 mls @ 4.99 mls/hr IV TITRATE [facility]; Protocol Last Titration: 03/11/21 08:37 Dose: Infused Documented by: Sodium Chloride (Normal Saline) Confirm Administered Dose 100 mls @ as directed .ROUTE .STK-MED ONE Stop: 03/06/21 21:04 Last Admin: 03/06/21 22:27 Dose: Not Given Documented by: Sodium Chloride (Normal Saline) 1,000 mls @ 300 mls/hr IV ASDIRECTED [facility] Last Admin: 03/06/21 20:35 Dose: 300 mls/hr Documented by: Sodium Chloride (Normal Saline) 1,000 mls @ 999 mls/hr IV ASDIRECTED [facility] Last Admin: 03/06/21 20:35 Dose: 999 mls/hr Documented by: Sodium Chloride (Sodium Chloride 0.45%) 1,000 mls @ 300 mls/hr IV ASDIRECTED [facility] Last Admin: 03/07/21 02:59 Dose: 300 mls/hr Documented by: Sodium Bicarbonate 100 meq/Potassium Chloride 20 meq/Sterile Water 510 mls @ 255 mls/hr IV ONETIME ONE Stop: 03/07/21 05:29 Last Admin: 03/07/21 04:22 Dose: 255 mls/hr Documented by: Sodium Bicarbonate 100 meq/Potassium Chloride 20 meq/Sterile Water 510 mls @ 255 mls/hr IV ONETIME ONE Stop: 03/07/21 07:29 Potassium Chloride/Sodium Chloride (1/2 Ns With 20 Meq Kcl) 1,000 mls @ 100 mls/hr IV ASDIRECTED PRINCE Last Admin: 03/07/21 06:15 Dose: 100 mls/hr Documented by: Norepinephrine Bitartrate 4 mg (/ Dextrose/Water) 250 mls @ 7.5 mls/hr IV ASDIRECTED PRN; Protocol PRN Reason: To maintain a MAP of 65 Potassium Chloride/Dextrose/Sod Cl (D5 1/2 Ns W/ 20 Meq/L Kcl) 1,000 mls @ 100 mls/hr IV ASDIRECTED PRINCE Last Infusion: 03/09/21 16:30 Dose: 65 mls/hr Documented by: Pantoprazole Sodium 40 mg/ (Sodium Chloride) 100 mls @ 200 mls/hr IV DAILY PRINCE Sodium Chloride (Normal Saline) Confirm Administered Dose 100 mls @ as directed .ROUTE .STK-MED ONE Stop: 03/10/21 19:09 Last Admin: 03/10/21 19:19 Dose: Not Given Documented by: Insulin Human Regular (Insulin Regular, Human 100 Units/Ml 3 Ml Vial) Confirm Administered Dose 300 unit .ROUTE .STK-MED ONE Stop: 03/06/21 21:04 Last Admin: 03/06/21 22:27 Dose: Not Given Documented by: Iopamidol (Iopamidol 755 Mg/Ml 100 Ml Bottle) 100 ml IVPUSH ONETIME ONE Stop: 03/09/21 14:02 Last Admin: 03/09/21 14:40 Dose: 100 ml Documented by: Morphine Sulfate (Morphine 2 Mg/Ml Syringe) 2 mg IVPUSH Q4H PRN PRN Reason: Pain (Severe 4-10) Stop: 03/08/21 04:19 Last Admin: 03/07/21 10:17 Dose: 2 mg Documented by: Naloxone HCl (Naloxone 2 Mg/2 Ml Syringe) Confirm Administered Dose 2 mg .ROUTE .STK-MED ONE Stop: 03/06/21 19:53 Last Admin: 03/06/21 22:27 Dose: Not Given Documented by: Naloxone HCl (Naloxone 2 Mg/2 Ml Syringe) 2 mg IVPUSH ONETIME ONE Stop: 03/06/21 19:51 Last Admin: 03/06/21 19:50 Dose: 2 mg Documented by: Naloxone HCl (Naloxone 2 Mg/2 Ml Syringe) 2 mg IVPUSH ONETIME ONE Stop: 03/06/21 19:54 Last Admin: 03/06/21 19:53 Dose: 2 mg Documented by: Naloxone HCl (Naloxone 2 Mg/2 Ml Syringe) Confirm Administered Dose 2 mg .ROUTE .STK-MED ONE Stop: 03/06/21 19:51 Last Admin: 03/07/21 19:10 Dose: Not Given Documented by: Ondansetron HCl (Ondansetron 4 Mg/2 Ml Sdv) 4 mg IV Q6H PRN PRN Reason: Nausea/Vomiting - Exam Quality Assessment: DVT Prophylaxis. No: Supplemental Oxygen, Urine Catheter 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 Total Time: 1Days 17Hours General: Alert, Oriented, Cooperative, No Acute Distress HEENT: Pupils Equal, Pupils Reactive, Mucous Membr. Moist/[place] Neck: Supple, Trachea Midline Lungs: Clear to Auscultation, Normal Respiratory Effort. No: Crackles, Rales, Rhonchi, Wheezing Cardiovascular: Regular Rhythm, Tachycardia GI/Abdominal Exam: Normal Bowel Sounds, Soft, Non-Tender, No Distention (Male) Exam: Deferred Back Exam: Normal Inspection, Full Range of Motion Extremities: Normal Inspection, Normal Range of Motion, Non-Tender, No Pedal Edema, Normal Capillary Refill Peripheral Pulses: 2+: Radial (L), Radial (R), Dorsalis Pedis (L), Dorsalis Pedis (R) Skin: Warm, Dry, Intact Neurological: No New Focal Deficit Psy/Mental Status: Alert, Normal Affect, Normal Mood - Patient Data Lab Results Last 24 hrs: Laboratory Results - last 24 hr 03/10/21 03/10/21 03/10/21 Range/Units 09:36 10:28 11:16 WBC (4.23-9.07) K/mm3 RBC (4.63-6.08) M/mm3 Hgb (13.7-17.5) gm/dl Hct (40.1-51.0) % MCV (79.0-92.2) fl MCH (25.7-32.2) pg MCHC (32.2-35.5) g/dl RDW Std Deviation (35.1-43.9) fL Plt Count (163-337) K/mm3 MPV (9.4-12.3) fl Neut % (Auto) (34.0-67.9) % Lymph % (Auto) (21.8-53.1) % Isabella % (Auto) (5.3-12.2) % Eos % (Auto) (0.8-7.0) Baso % (Auto) (0.1-1.2) % Neut # (Auto) (1.78-5.38) K/mm3 Lymph # (Auto) (1.32-3.57) K/mm3 Isabella # (Auto) (0.30-0.82) K/mm3 Eos # (Auto) (0.04-0.54) K/mm3 Baso # (Auto) (0.01-0.08) K/mm3 Sodium 134 L (136-145) mEq/L Potassium 3.8 (3.5-5.1) mEq/L Chloride 99 (98-107) mEq/L Carbon Dioxide 21 (21-32) mEq/L Anion Gap 17.8 H (5-15) BUN 9 (7-18) mg/dL Creatinine 1.1 (0.7-1.3) mg/dL Est Cr Clr Drug Dosing 82.25 mL/min Estimated GFR (MDRD) > 60 (>60) mL/min BUN/Creatinine Ratio 8.2 L (14-18) Glucose 225 H (70-99) mg/dL POC Glucose 227 H 227 H (70-99) mg/dL Calcium 7.7 L (8.5-10.1) mg/dL Total Bilirubin (0.2-1.0) mg/dL AST (15-37) U/L ALT (16-63) U/L Alkaline Phosphatase (46-116) U/L Total Protein (6.4-8.2) g/dl Albumin (3.4-5.0) g/dl Globulin gm/dL Albumin/Globulin Ratio (1-2) 03/10/21 03/10/21 03/10/21 Range/Units 11:33 12:33 13:31 WBC (4.23-9.07) K/mm3 RBC (4.63-6.08) M/mm3 Hgb (13.7-17.5) gm/dl Hct (40.1-51.0) % MCV (79.0-92.2) fl MCH (25.7-32.2) pg MCHC (32.2-35.5) g/dl RDW Std Deviation (35.1-43.9) fL Plt Count (163-337) K/mm3 MPV (9.4-12.3) fl Neut % (Auto) (34.0-67.9) % Lymph % (Auto) (21.8-53.1) % Isabella % (Auto) (5.3-12.2) % Eos % (Auto) (0.8-7.0) Baso % (Auto) (0.1-1.2) % Neut # (Auto) (1.78-5.38) K/mm3 Lymph # (Auto) (1.32-3.57) K/mm3 Isabella # (Auto) (0.30-0.82) K/mm3 Eos # (Auto) (0.04-0.54) K/mm3 Baso # (Auto) (0.01-0.08) K/mm3 Sodium (136-145) mEq/L Potassium (3.5-5.1) mEq/L Chloride (98-107) mEq/L Carbon Dioxide (21-32) mEq/L Anion Gap (5-15) BUN (7-18) mg/dL Creatinine (0.7-1.3) mg/dL Est Cr Clr Drug Dosing mL/min Estimated GFR (MDRD) (>60) mL/min BUN/Creatinine Ratio (14-18) Glucose (70-99) mg/dL POC Glucose 237 H 314 H 344 H (70-99) mg/dL Calcium (8.5-10.1) mg/dL Total Bilirubin (0.2-1.0) mg/dL AST (15-37) U/L ALT (16-63) U/L Alkaline Phosphatase (46-116) U/L Total Protein (6.4-8.2) g/dl Albumin (3.4-5.0) g/dl Globulin gm/dL Albumin/Globulin Ratio (1-2) 06/20/21 06/20/21 06/20/21 Range/Units 14:33 15:31 16:30 WBC (4.23-9.07) K/mm3 RBC (4.63-6.08) M/mm3 Hgb (13.7-17.5) gm/dl Hct (40.1-51.0) % MCV (79.0-92.2) fl MCH (25.7-32.2) pg MCHC (32.2-35.5) g/dl RDW Std Deviation (35.1-43.9) fL Plt Count (163-337) K/mm3 MPV (9.4-12.3) fl Neut % (Auto) (34.0-67.9) % Lymph % (Auto) (21.8-53.1) % Isabella % (Auto) (5.3-12.2) % Eos % (Auto) (0.8-7.0) Baso % (Auto) (0.1-1.2) % Neut # (Auto) (1.78-5.38) K/mm3 Lymph # (Auto) (1.32-3.57) K/mm3 Isabella # (Auto) (0.30-0.82) K/mm3 Eos # (Auto) (0.04-0.54) K/mm3 Baso # (Auto) (0.01-0.08) K/mm3 Sodium (136-145) mEq/L Potassium (3.5-5.1) mEq/L Chloride (98-107) mEq/L Carbon Dioxide (21-32) mEq/L Anion Gap (5-15) BUN (7-18) mg/dL Creatinine (0.7-1.3) mg/dL Est Cr Clr Drug Dosing mL/min Estimated GFR (MDRD) (>60) mL/min BUN/Creatinine Ratio (14-18) Glucose (70-99) mg/dL POC Glucose 233 H 176 H 158 H (70-99) mg/dL Calcium (8.5-10.1) mg/dL Total Bilirubin (0.2-1.0) mg/dL AST (15-37) U/L ALT (16-63) U/L Alkaline Phosphatase (46-116) U/L Total Protein (6.4-8.2) g/dl Albumin (3.4-5.0) g/dl Globulin gm/dL Albumin/Globulin Ratio (1-2) 03/10/21 03/10/21 03/10/21 Range/Units 16:58 17:35 18:32 WBC (4.23-9.07) K/mm3 RBC (4.63-6.08) M/mm3 Hgb (13.7-17.5) gm/dl Hct (40.1-51.0) % MCV (79.0-92.2) fl MCH (25.7-32.2) pg MCHC (32.2-35.5) g/dl RDW Std Deviation (35.1-43.9) fL Plt Count (163-337) K/mm3 MPV (9.4-12.3) fl Neut % (Auto) (34.0-67.9) % Lymph % (Auto) (21.8-53.1) % Isabella % (Auto) (5.3-12.2) % Eos % (Auto) (0.8-7.0) Baso % (Auto) (0.1-1.2) % Neut # (Auto) (1.78-5.38) K/mm3 Lymph # (Auto) (1.32-3.57) K/mm3 Isabella # (Auto) (0.30-0.82) K/mm3 Eos # (Auto) (0.04-0.54) K/mm3 Baso # (Auto) (0.01-0.08) K/mm3 Sodium 137 (136-145) mEq/L Potassium 3.5 (3.5-5.1) mEq/L Chloride 102 (98-107) mEq/L Carbon Dioxide 19 L (21-32) mEq/L Anion Gap 19.5 H (5-15) BUN 8 (7-18) mg/dL Creatinine 1.1 (0.7-1.3) mg/dL Est Cr Clr Drug Dosing 82.25 mL/min Estimated GFR (MDRD) > 60 (>60) mL/min BUN/Creatinine Ratio 7.3 L (14-18) Glucose 151 H (70-99) mg/dL POC Glucose 114 H 113 H (70-99) mg/dL Calcium 7.5 L (8.5-10.1) mg/dL Total Bilirubin (0.2-1.0) mg/dL AST (15-37) U/L ALT (16-63) U/L Alkaline Phosphatase (46-116) U/L Total Protein (6.4-8.2) g/dl Albumin (3.4-5.0) g/dl Globulin gm/dL Albumin/Globulin Ratio (1-2) 03/10/21 03/10/21 03/10/21 Range/Units 19:37 20:35 21:36 WBC (4.23-9.07) K/mm3 RBC (4.63-6.08) M/mm3 Hgb (13.7-17.5) gm/dl Hct (40.1-51.0) % MCV (79.0-92.2) fl MCH (25.7-32.2) pg MCHC (32.2-35.5) g/dl RDW Std Deviation (35.1-43.9) fL Plt Count (163-337) K/mm3 MPV (9.4-12.3) fl Neut % (Auto) (34.0-67.9) % Lymph % (Auto) (21.8-53.1) % Isabella % (Auto) (5.3-12.2) % Eos % (Auto) (0.8-7.0) Baso % (Auto) (0.1-1.2) % Neut # (Auto) (1.78-5.38) K/mm3 Lymph # (Auto) (1.32-3.57) K/mm3 Isabella # (Auto) (0.30-0.82) K/mm3 Eos # (Auto) (0.04-0.54) K/mm3 Baso # (Auto) (0.01-0.08) K/mm3 Sodium (136-145) mEq/L Potassium (3.5-5.1) mEq/L Chloride (98-107) mEq/L Carbon Dioxide (21-32) mEq/L Anion Gap (5-15) BUN (7-18) mg/dL Creatinine (0.7-1.3) mg/dL Est Cr Clr Drug Dosing mL/min Estimated GFR (MDRD) (>60) mL/min BUN/Creatinine Ratio (14-18) Glucose (70-99) mg/dL POC Glucose 117 H 134 H 206 H (70-99) mg/dL Calcium (8.5-10.1) mg/dL Total Bilirubin (0.2-1.0) mg/dL AST (15-37) U/L ALT (16-63) U/L Alkaline Phosphatase (46-116) U/L Total Protein (6.4-8.2) g/dl Albumin (3.4-5.0) g/dl Globulin gm/dL Albumin/Globulin Ratio (1-2) 03/10/21 03/10/21 03/10/21 Range/Units 22:41 23:08 23:12 WBC (4.23-9.07) K/mm3 RBC (4.63-6.08) M/mm3 Hgb (13.7-17.5) gm/dl Hct (40.1-51.0) % MCV (79.0-92.2) fl MCH (25.7-32.2) pg MCHC (32.2-35.5) g/dl RDW Std Deviation (35.1-43.9) fL Plt Count (163-337) K/mm3 MPV (9.4-12.3) fl Neut % (Auto) (34.0-67.9) % Lymph % (Auto) (21.8-53.1) % Isabella % (Auto) (5.3-12.2) % Eos % (Auto) (0.8-7.0) Baso % (Auto) (0.1-1.2) % Neut # (Auto) (1.78-5.38) K/mm3 Lymph # (Auto) (1.32-3.57) K/mm3 Isabella # (Auto) (0.30-0.82) K/mm3 Eos # (Auto) (0.04-0.54) K/mm3 Baso # (Auto) (0.01-0.08) K/mm3 Sodium 138 (136-145) mEq/L Potassium 3.7 (3.5-5.1) mEq/L Chloride 101 (98-107) mEq/L Carbon Dioxide 21 (21-32) mEq/L Anion Gap 19.7 H (5-15) BUN 7 (7-18) mg/dL Creatinine 1.1 (0.7-1.3) mg/dL Est Cr Clr Drug Dosing 82.25 mL/min Estimated GFR (MDRD) > 60 (>60) mL/min BUN/Creatinine Ratio 6.4 L (14-18) Glucose 241 H (70-99) mg/dL POC Glucose 257 H 243 H (70-99) mg/dL Calcium 8.0 L (8.5-10.1) mg/dL Total Bilirubin (0.2-1.0) mg/dL AST (15-37) U/L ALT (16-63) U/L Alkaline Phosphatase (46-116) U/L Total Protein (6.4-8.2) g/dl Albumin (3.4-5.0) g/dl Globulin gm/dL Albumin/Globulin Ratio (1-2) 03/11/21 03/11/21 03/11/21 Range/Units 00:13 01:11 02:08 WBC (4.23-9.07) K/mm3 RBC (4.63-6.08) M/mm3 Hgb (13.7-17.5) gm/dl Hct (40.1-51.0) % MCV (79.0-92.2) fl MCH (25.7-32.2) pg MCHC (32.2-35.5) g/dl RDW Std Deviation (35.1-43.9) fL Plt Count (163-337) K/mm3 MPV (9.4-12.3) fl Neut % (Auto) (34.0-67.9) % Lymph % (Auto) (21.8-53.1) % Isabella % (Auto) (5.3-12.2) % Eos % (Auto) (0.8-7.0) Baso % (Auto) (0.1-1.2) % Neut # (Auto) (1.78-5.38) K/mm3 Lymph # (Auto) (1.32-3.57) K/mm3 Isabella # (Auto) (0.30-0.82) K/mm3 Eos # (Auto) (0.04-0.54) K/mm3 Baso # (Auto) (0.01-0.08) K/mm3 Sodium (136-145) mEq/L Potassium (3.5-5.1) mEq/L Chloride (98-107) mEq/L Carbon Dioxide (21-32) mEq/L Anion Gap (5-15) BUN (7-18) mg/dL Creatinine (0.7-1.3) mg/dL Est Cr Clr Drug Dosing mL/min Estimated GFR (MDRD) (>60) mL/min BUN/Creatinine Ratio (14-18) Glucose (70-99) mg/dL POC Glucose 276 H 312 H 240 H (70-99) mg/dL Calcium (8.5-10.1) mg/dL Total Bilirubin (0.2-1.0) mg/dL AST (15-37) U/L ALT (16-63) U/L Alkaline Phosphatase (46-116) U/L Total Protein (6.4-8.2) g/dl Albumin (3.4-5.0) g/dl Globulin gm/dL Albumin/Globulin Ratio (1-2) 03/11/21 03/11/21 03/11/21 Range/Units 03:13 04:10 05:10 WBC 4.19 L (4.23-9.07) K/mm3 RBC 3.67 L (4.63-6.08) M/mm3 Hgb 11.4 L (13.7-17.5) gm/dl Hct 33.3 L (40.1-51.0) % MCV 90.7 (79.0-92.2) fl MCH 31.1 (25.7-32.2) pg MCHC 34.2 (32.2-35.5) g/dl RDW Std Deviation 44.1 H (35.1-43.9) fL Plt Count 178 (163-337) K/mm3 MPV 8.8 L (9.4-12.3) fl Neut % (Auto) 52.4 (34.0-67.9) % Lymph % (Auto) 30.5 (21.8-53.1) % Isabella % (Auto) 14.8 H (5.3-12.2) % Eos % (Auto) 1.9 (0.8-7.0) Baso % (Auto) 0.2 (0.1-1.2) % Neut # (Auto) 2.19 (1.78-5.38) K/mm3 Lymph # (Auto) 1.28 L (1.32-3.57) K/mm3 Isabella # (Auto) 0.62 (0.30-0.82) K/mm3 Eos # (Auto) 0.08 (0.04-0.54) K/mm3 Baso # (Auto) 0.01 (0.01-0.08) K/mm3 Sodium (136-145) mEq/L Potassium (3.5-5.1) mEq/L Chloride (98-107) mEq/L Carbon Dioxide (21-32) mEq/L Anion Gap (5-15) BUN (7-18) mg/dL Creatinine (0.7-1.3) mg/dL Est Cr Clr Drug Dosing mL/min Estimated GFR (MDRD) (>60) mL/min BUN/Creatinine Ratio (14-18) Glucose (70-99) mg/dL POC Glucose 170 H 157 H (70-99) mg/dL Calcium (8.5-10.1) mg/dL Total Bilirubin (0.2-1.0) mg/dL AST (15-37) U/L ALT (16-63) U/L Alkaline Phosphatase (46-116) U/L Total Protein (6.4-8.2) g/dl Albumin (3.4-5.0) g/dl Globulin gm/dL Albumin/Globulin Ratio (1-2) 03/11/21 03/11/21 03/11/21 Range/Units 05:10 05:11 06:05 WBC (4.23-9.07) K/mm3 RBC (4.63-6.08) M/mm3 Hgb (13.7-17.5) gm/dl Hct (40.1-51.0) % MCV (79.0-92.2) fl MCH (25.7-32.2) pg MCHC (32.2-35.5) g/dl RDW Std Deviation (35.1-43.9) fL Plt Count (163-337) K/mm3 MPV (9.4-12.3) fl Neut % (Auto) (34.0-67.9) % Lymph % (Auto) (21.8-53.1) % Isabella % (Auto) (5.3-12.2) % Eos % (Auto) (0.8-7.0) Baso % (Auto) (0.1-1.2) % Neut # (Auto) (1.78-5.38) K/mm3 Lymph # (Auto) (1.32-3.57) K/mm3 Isabella # (Auto) (0.30-0.82) K/mm3 Eos # (Auto) (0.04-0.54) K/mm3 Baso # (Auto) (0.01-0.08) K/mm3 Sodium 143 (136-145) mEq/L Potassium 3.8 (3.5-5.1) mEq/L Chloride 104 (98-107) mEq/L Carbon Dioxide 24 (21-32) mEq/L Anion Gap 18.8 H (5-15) BUN 7 (7-18) mg/dL Creatinine 1.0 (0.7-1.3) mg/dL Est Cr Clr Drug Dosing 84.11 mL/min Estimated GFR (MDRD) > 60 (>60) mL/min BUN/Creatinine Ratio 7.0 L (14-18) Glucose 146 H (70-99) mg/dL POC Glucose 143 H 123 H (70-99) mg/dL Calcium 8.2 L (8.5-10.1) mg/dL Total Bilirubin 0.5 (0.2-1.0) mg/dL AST 163 H (15-37) U/L ALT 361 H (16-63) U/L Alkaline Phosphatase 293 H (46-116) U/L Total Protein 6.1 L (6.4-8.2) g/dl Albumin 2.5 L (3.4-5.0) g/dl Globulin 3.6 gm/dL Albumin/Globulin Ratio 0.7 L (1-2) 03/11/21 03/11/21 Range/Units 07:09 08:18 WBC (4.23-9.07) K/mm3 RBC (4.63-6.08) M/mm3 Hgb (13.7-17.5) gm/dl Hct (40.1-51.0) % MCV (79.0-92.2) fl MCH (25.7-32.2) pg MCHC (32.2-35.5) g/dl RDW Std Deviation (35.1-43.9) fL Plt Count (163-337) K/mm3 MPV (9.4-12.3) fl Neut % (Auto) (34.0-67.9) % Lymph % (Auto) (21.8-53.1) % Isabella % (Auto) (5.3-12.2) % Eos % (Auto) (0.8-7.0) Baso % (Auto) (0.1-1.2) % Neut # (Auto) (1.78-5.38) K/mm3 Lymph # (Auto) (1.32-3.57) K/mm3 Isabella # (Auto) (0.30-0.82) K/mm3 Eos # (Auto) (0.04-0.54) K/mm3 Baso # (Auto) (0.01-0.08) K/mm3 Sodium (136-145) mEq/L Potassium (3.5-5.1) mEq/L Chloride (98-107) mEq/L Carbon Dioxide (21-32) mEq/L Anion Gap (5-15) BUN (7-18) mg/dL Creatinine (0.7-1.3) mg/dL Est Cr Clr Drug Dosing mL/min Estimated GFR (MDRD) (>60) mL/min BUN/Creatinine Ratio (14-18) Glucose (70-99) mg/dL POC Glucose 125 H 118 H (70-99) mg/dL Calcium (8.5-10.1) mg/dL Total Bilirubin (0.2-1.0) mg/dL AST (15-37) U/L ALT (16-63) U/L Alkaline Phosphatase (46-116) U/L Total Protein (6.4-8.2) g/dl Albumin (3.4-5.0) g/dl Globulin gm/dL Albumin/Globulin Ratio (1-2) Result Diagrams: 03/11/21 05:10 03/11/21 05:10 Rosalio Results Last 24 hrs: Microbiology 03/07/21 06:30 Aerobic Blood Culture - Preliminary Blood - Venous - Lab Draw NO GROWTH AFTER 4 DAYS Anaerobic Blood Culture - Preliminary NO GROWTH AFTER 4 DAYS 03/07/21 05:10 Aerobic Blood Culture - Preliminary Blood - Venous NO GROWTH AFTER 4 DAYS Anaerobic Blood Culture - Final Sepsis Event Note - Evaluation Sepsis Screening Result: No Definite Risk - Focused Exam Vital Signs: Vital Signs Temp Pulse Resp BP BP Pulse Ox 03/11/21 05:14 96 120/84 03/11/21 05:00 92 98 03/11/21 04:00 97.4 F 16 121/94 H 99 03/11/21 01:00 93 97 03/11/21 00:00 97.2 F 16 112/82 96 03/10/21 22:00 77 100 - Problem List & Annotations (1) Acute renal insufficiency SNOMED Code(s): 593921083 Code(s): N28.9 - DISORDER OF KIDNEY AND URETER, UNSPECIFIED Status: Resolved Priority: High Current Visit: Yes (2) Cocaine abuse SNOMED Code(s): 73160972 Code(s): F14.10 - COCAINE ABUSE, UNCOMPLICATED Status: Acute Priority: Medium Current Visit: Yes (3) High anion gap metabolic acidosis SNOMED Code(s): 06560729 Code(s): E87.2 - ACIDOSIS Status: Acute Priority: High Current Visit: Yes (4) Elevated d-dimer SNOMED Code(s): 345349521 Code(s): R79.89 - OTHER SPECIFIED ABNORMAL FINDINGS OF BLOOD CHEMISTRY Status: Ruled-out Priority: High Current Visit: Yes (5) Hypotension SNOMED Code(s): 46139421 Code(s): I95.9 - HYPOTENSION, UNSPECIFIED Status: Resolved Priority: High Current Visit: Yes Qualifiers: Hypotension type: unspecified hypotension type Qualified Code(s): I95.9 - Hypotension, unspecified (6) History of tobacco use SNOMED Code(s): 622449482 Code(s): Z87.891 - PERSONAL HISTORY OF NICOTINE DEPENDENCE Status: Chronic Priority: Low Current Visit: Yes (7) Transaminitis SNOMED Code(s): 238661740, 661752349 Code(s): R74.01 - ELEVATION OF LEVELS OF LIVER TRANSAMINASE LEVELS Status: Acute Priority: High Current Visit: Yes (8) Bronchitis SNOMED Code(s): 08404066 Code(s): J40 - BRONCHITIS, NOT SPECIFIED ACUTE OR CHRONIC Status: Acute Priority: High Current Visit: Yes (9) Altered mental status SNOMED Code(s): 245006572 Code(s): R41.82 - ALTERED MENTAL STATUS, UNSPECIFIED Status: Resolved Priority: High Current Visit: Yes Qualifiers: Altered mental status type: coma Coma depth: unspecified coma depth Qualified Code(s): R40.20 - Unspecified coma Annotation/Comment:: (10) Hyperglycemia due to type 1 diabetes mellitus SNOMED Code(s): 785952454714063, 988399223657869 Code(s): E10.65 - TYPE 1 DIABETES MELLITUS WITH HYPERGLYCEMIA Status: Acute Priority: High Current Visit: Yes (11) Medical non-compliance SNOMED Code(s): 168858126 Code(s): Z91.19 - PATIENT'S NONCOMPLIANCE W OTH MEDICAL TREATMENT AND REGIMEN Status: Chronic Priority: High Current Visit: Yes (12) Type I diabetes mellitus SNOMED Code(s): 12357685 Code(s): E10.9 - TYPE 1 DIABETES MELLITUS WITHOUT COMPLICATIONS Status: Chronic Priority: High Current Visit: Yes Qualifiers: Diabetes mellitus complication status: with hyperglycemia Qualified Code(s): E10.65 - Type 1 diabetes mellitus with hyperglycemia (13) Leukocytosis SNOMED Code(s): 203627728, 556860807 Code(s): D72.829 - ELEVATED WHITE BLOOD CELL COUNT, UNSPECIFIED Status: Resolved Priority: High Current Visit: Yes Qualifiers: Leukocytosis type: unspecified Qualified Code(s): D72.829 - Elevated white blood cell count, unspecified (14) Diabetic ketoacidosis SNOMED Code(s): 115419306, 717938194 Code(s): E11.10 - TYPE 2 DIABETES MELLITUS WITH KETOACIDOSIS WITHOUT COMA Status: Resolved Priority: High Current Visit: Yes Qualifiers: Diabetes mellitus type: type 1 Diabetes mellitus complication detail: without coma Qualified Code(s): E10.10 - Type 1 diabetes mellitus with ketoacidosis without coma - Problem List Review Problem List Initiated/Reviewed/Updated: Yes - My Orders Last 24 Hours: My Active Orders 03/11/21 Breakfast ADA Diabetic [[employer] Diet] [DIET] 03/11/21 11:00 Insulin Lispro [HumaLOG] See Protocol SUBCUT QIDACANDBED 03/11/21 13:00 BASIC METABOLIC PANEL,BMP [CHEM] Timed - Assessment Assessment:: 03/08/2021 Patient is a 26-year-old male with a history of type 1 diabetes, substance abuse, medical noncompliance and history of DKA who was brought to the ER due to AMS. Patient was admitted to the hospital recently for DKA and again for this time. Patient feels better. He is hungry. He is still on insulin drip and n.p.o. Vital signs are stable and acceptable WBC 5.07, platelets 197 Potassium 4.0, creatinine 1.4, anion gap 19, bicarbonate 18 Lactic acid of 6.2 03/09/2021: CT angio showed no evidence of a PE; new small bilateral pleural effusions; moderate patchy bilateral ground-glass opacities, increased. Mild dependent bilateral consolidation, decreased. Leading differential considerations include pneumonia or possibly pulmonary edema with the atelectasis. I feel he may have pulmonary edema. There is no much evidence of pneumonia. Afebrile. WBC trending down to normal, 4.82 today. I will not escalate his abx and continue azithromycin for bronchitis. Pt still needs IVF because he still needs insulin drip and he just received IV contrast. But I will give him low dose of lasix if his BP can tolerate it. He has oxygen desaturation. BNP D-dimer update: D-dimer mildly elevated. He has hx of Covid 19 which could result in elevation of D-dimer. But he is a cocaine abuser which could increase the possibility of thromboembolic events. So I would like to do CT angio chest for him. Doppler to r/o DVT Continue IVF 03/10/2021: Patient is a 26-year-old male with a history of type 1 diabetes, substance abuse, medical noncompliance and history of DKA who was brought to the ER due to AMS. Patient was admitted to the hospital recently for DKA and again for this time. Patient feels fine. He is hungry. He is still on insulin drip. Vital signs are stable and acceptable WBC 4.39, platelets 150 Bicarbonate 18, anion gap 20 Creatinine 1.1 AST 265, ALT 406, alkaline phos 298 03/11/2021: This is a 26-year-old male well-known to this service for multiple episodes of medical noncompliance and DKA. He presented to ED on 03/07/2021 with altered mental status, hyperglycemia, and DKA. He was admitted to the floor with an insulin drip. Throughout his stay he was noted to have some respiratory issues and elevated D-dimer which resulted in a CTA showing possible bronchitis. For this he has been receiving azithromycin. He has had 2+ urine drug screens for cocaine on his last 2 visits we did discuss this. Echocardiogram was obtained today and is pending. Today the insulin drip was discontinued and we did move him to sliding scale. Diet was advanced to diabetic diet. We will continue IV fluids for now and discontinue those this afternoon. If he remains stable we will downgrade him to MedSur status. Today he reports he is doing quite well. Denies any nausea or vomiting. Labs today show WBC of 4.19. Hemoglobin 11.4. Platelets are good at 178,000. Sodium 143. Potassium 3.8. Carbon dioxide 24. Anion gap is 18.8. Of note: patient has never had a normal anion gap while here. BUN is 7. Creatinine 1.0. GFR greater than 60. Glucose has been in the low 100s. Bilirubin 0.5. Liver enzymes have been elevated throughout his stay but they are trending downward with an AST of 163, ALT of 361, alkaline phosphatase of 293. Albumin is 2.5. We will order a hepatitis panel. Hopeful for discharge tomorrow pending continued stability and return of echocardiogram. - Plan Plan:: Assessment/Plan Comment:: Patient is a 26-year-old male with a history of type 1 diabetes, substance abuse, medical noncompliance and history of DKA who was brought to the ER due to AMS. Pt was admitted to our hospital with similar presentation. AMS - resolved -Etiology unknown. Could be due to metabolic encephalopathy, dehydration, substance abuse, infection, stroke from use of cocaine, etc -CT of head - no acute change -Blood culture negative -IV fluid -Monitoring in ICU Acute hypoxic respiratory failure - resolved -D-dimer 1.58 -CT angio showed no evidence of a PE; new small bilateral pleural effusions; moderate patchy bilateral ground-glass opacities, increased. Mild dependent bilateral consolidation, decreased. Leading differential considerations include pneumonia or possibly pulmonary edema with the atelectasis. I feel he may have pulmonary edema. There is no much evidence of pneumonia. Afebrile. WBC trending down to normal, 4.82 today. I will not escalate his abx and continue azithromycin for bronchitis. -Lasix given -Echo ordered and pending DKA DM type 1 -Anion gap 18.8, Bicarbonate 24 -Discontinue insulin drip -Continue KCl 20mEq D5 1/2 NS 65ml/hr for now -Start Diabetic diet -Diabetic education -Sliding scale insulin - medium range -Re-check BMP today at 1300 Hypotension - resolved -Continue ivf Cocaine abuse -Urine drug screen positive for cocaine -aspirin -serum osmolality is elevated at 360. -salicylate level is within normal limits at 8.6. -acetaminophen level is 0. -EtOH level is 0.00. 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 It was 0.7 on 01/21/2021 -Most likely due to prerenal cause -Avoid nephrotoxic meds -IV fluid -Creatinine normalized -Repeat the renal function morning Elevation of liver enzymes -AST 360, ALT 653, Alk phos 364, Tbil 1.0 on admission -trending down -Repeat the liver function in morning Bronchitis -Cough with sputum -CXR -possible bronchitis, worse within the left perihilar region -Azithromycin DVT prophylaxis: Lovenox PCP: Faina Frost NP Disposition: We will downgrade to MedSurg status this afternoon if he remains stable. Likely discharge tomorrow pending echo results and advancement of diet <Abdirahman Emerson - Last Filed: 03/12/21 06:54> - Patient Data Vitals - Most Recent: Last Vital Signs Temp 36.4 C 03/12/21 03:00 Pulse 86 03/12/21 04:59 Resp 16 03/12/21 03:00 BP 116/83 03/12/21 04:59 Pulse Ox 97 03/12/21 03:00 I&O - Last 24 Hours: Intake & Output 03/11/21 03/11/21 03/12/21 14:59 22:59 06:59 Intake Total 400 1570 800 Output Total 650 1000 850 Balance -250 570 -50 Lab Results Last 24 Hours: Laboratory Results - last 24 hr 0603/11/21 03/11/21 Range/Units 07:09 08:18 12:18 Sodium (136-145) mEq/L Potassium (3.5-5.1) mEq/L Chloride (98-107) mEq/L Carbon Dioxide (21-32) mEq/L Anion Gap (5-15) BUN (7-18) mg/dL Creatinine (0.7-1.3) mg/dL Est Cr Clr Drug Dosing mL/min Estimated GFR (MDRD) (>60) mL/min BUN/Creatinine Ratio (14-18) Glucose (70-99) mg/dL POC Glucose 125 H 118 H 482 H* (70-99) mg/dL Calcium (8.5-10.1) mg/dL Magnesium (1.8-2.4) mg/dL Total Bilirubin (0.2-1.0) mg/dL AST (15-37) U/L ALT (16-63) U/L Alkaline Phosphatase (46-116) U/L Total Protein (6.4-8.2) g/dl Albumin (3.4-5.0) g/dl Globulin gm/dL Albumin/Globulin Ratio (1-2) 03/11/21 03/11/21 03/11/21 Range/Units 13:06 14:55 17:50 Sodium 132 L D (136-145) mEq/L Potassium 3.7 (3.5-5.1) mEq/L Chloride 95 L (98-107) mEq/L Carbon Dioxide 22 (21-32) mEq/L Anion Gap 18.7 H (5-15) BUN 12 (7-18) mg/dL Creatinine 1.1 (0.7-1.3) mg/dL Est Cr Clr Drug Dosing 76.47 mL/min Estimated GFR (MDRD) > 60 (>60) mL/min BUN/Creatinine Ratio 10.9 L (14-18) Glucose 510 H* (70-99) mg/dL POC Glucose 319 H 169 H (70-99) mg/dL Calcium 7.8 L (8.5-10.1) mg/dL Magnesium (1.8-2.4) mg/dL Total Bilirubin (0.2-1.0) mg/dL AST (15-37) U/L ALT (16-63) U/L Alkaline Phosphatase (46-116) U/L Total Protein (6.4-8.2) g/dl Albumin (3.4-5.0) g/dl Globulin gm/dL Albumin/Globulin Ratio (1-2) 03/11/21 03/12/21 03/12/21 Range/Units 20:40 00:26 04:46 Sodium (136-145) mEq/L Potassium (3.5-5.1) mEq/L Chloride (98-107) mEq/L Carbon Dioxide (21-32) mEq/L Anion Gap (5-15) BUN (7-18) mg/dL Creatinine (0.7-1.3) mg/dL Est Cr Clr Drug Dosing mL/min Estimated GFR (MDRD) (>60) mL/min BUN/Creatinine Ratio (14-18) Glucose (70-99) mg/dL POC Glucose 102 H 211 H 363 H (70-99) mg/dL Calcium (8.5-10.1) mg/dL Magnesium (1.8-2.4) mg/dL Total Bilirubin (0.2-1.0) mg/dL AST (15-37) U/L ALT (16-63) U/L Alkaline Phosphatase (46-116) U/L Total Protein (6.4-8.2) g/dl Albumin (3.4-5.0) g/dl Globulin gm/dL Albumin/Globulin Ratio (1-2) 03/12/21 Range/Units 05:50 Sodium 137 (136-145) mEq/L Potassium 4.3 (3.5-5.1) mEq/L Chloride 99 (98-107) mEq/L Carbon Dioxide 23 (21-32) mEq/L Anion Gap 19.3 H (5-15) BUN 19 H (7-18) mg/dL Creatinine 1.0 (0.7-1.3) mg/dL Est Cr Clr Drug Dosing 84.11 mL/min Estimated GFR (MDRD) > 60 (>60) mL/min BUN/Creatinine Ratio 19.0 H (14-18) Glucose 380 H (70-99) mg/dL POC Glucose (70-99) mg/dL Calcium 8.3 L (8.5-10.1) mg/dL Magnesium 1.6 L (1.8-2.4) mg/dL Total Bilirubin 0.7 (0.2-1.0) mg/dL AST 192 H (15-37) U/L ALT 342 H (16-63) U/L Alkaline Phosphatase 303 H (46-116) U/L Total Protein 6.5 (6.4-8.2) g/dl Albumin 2.7 L (3.4-5.0) g/dl Globulin 3.8 gm/dL Albumin/Globulin Ratio 0.7 L (1-2) Rosalio Results Last 24 Hours: Microbiology 03/07/21 06:30 Aerobic Blood Culture - Preliminary Blood - Venous - Lab Draw NO GROWTH AFTER 5 DAYS Anaerobic Blood Culture - Preliminary NO GROWTH AFTER 5 DAYS 03/07/21 05:10 Aerobic Blood Culture - Preliminary Blood - Venous NO GROWTH AFTER 5 DAYS Anaerobic Blood Culture - Final Med Orders - Current: Current Medications Acetaminophen (Acetaminophen 325 Mg Tab) 325 mg PO Q6H PRN PRN Reason: Pain (Mild 1-3)/fever Albuterol/Ipratropium (Albuterol/Ipratropium 3.0-0.5 Mg/3 Ml Neb Soln) 3 ml NEB Q4H PRN PRN Reason: Shortness Of Breath/wheezing Last Admin: 03/10/21 04:43 Dose: 3 ml Documented by: Aspirin (Aspirin 81 Mg Tab.Ec) 81 mg PO DAILY [facility] Last Admin: 03/11/21 09:28 Dose: 81 mg Documented by: Azithromycin (Azithromycin 250 Mg Tab) 250 mg PO DAILY [facility] Stop: 03/13/21 23:59 Last Admin: 03/11/21 09:28 Dose: 250 mg Documented by: Enoxaparin Sodium (Enoxaparin 40 Mg/0.4 Ml Syringe) 40 mg SUBCUT BEDTIME [facility] Last Admin: 03/12/21 00:40 Dose: Not Given Documented by: Guaifenesin/Phenylephrine HCl (Guaifenesin/Dextromethorphan 100-10 Mg/5 Ml Soln 5 Ml Cup) 5 ml PO Q6H PRN PRN Reason: Cough Last Admin: 03/11/21 05:13 Dose: 5 ml Documented by: Promethazine HCl 12.5 mg/ (Sodium Chloride) 50.5 mls @ 100 mls/hr IV Q6H PRN PRN Reason: Nausea/Vomiting Insulin Human Lispro (Insulin Lispro 100 Unit/Ml 10 Ml Vial) 0 unit SUBCUT TIDMEALS [facility] Last Admin: 03/11/21 17:58 Dose: 7 units Documented by: Metoprolol Tartrate (Metoprolol Tartrate 25 Mg Tab) 12.5 mg PO Q12H [facility] Last Admin: 03/12/21 04:59 Dose: 12.5 mg Documented by: Pantoprazole Sodium (Pantoprazole 40 Mg Tab.Cr) 40 mg PO DAILY [facility] Discontinued Medications Aspirin (Aspirin 325 Mg Tab.Ec) 325 mg PO ONETIME ONE Stop: 03/07/21 04:31 Last Admin: 03/07/21 05:04 Dose: Not Given Documented by: Azithromycin (Azithromycin 250 Mg Tab) 500 mg PO ONETIME ONE Stop: 03/09/21 10:27 Last Admin: 03/09/21 11:38 Dose: 500 mg Documented by: Furosemide (Furosemide 20 Mg/2 Ml Vial) 20 mg IVPUSH BIDDIURETIC [facility] Last Admin: 03/10/21 06:19 Dose: 20 mg Documented by: Furosemide (Furosemide 20 Mg/2 Ml Vial) 20 mg IVPUSH BID [facility] Stop: 03/11/21 09:01 Last Admin: 03/11/21 09:28 Dose: 20 mg Documented by: Heparin Sodium (Porcine) (Heparin Sodium 5,000 Units/Ml Vial) 5,000 units SUBCUT Q8H [facility] Last Admin: 03/09/21 11:38 Dose: 5,000 units Documented by: Sodium Chloride (Normal Saline) 1,000 mls @ 999 mls/hr IV ONETIME ONE Stop: 03/06/21 20:58 Last Admin: 03/06/21 19:50 Dose: 999 mls/hr Documented by: Sodium Chloride (Normal Saline) 1,000 mls @ 999 mls/hr IV ONETIME ONE Stop: 03/06/21 20:58 Last Admin: 03/06/21 19:57 Dose: 999 mls/hr Documented by: Insulin Human Regular 100 unit (/ Sodium Chloride) 100 mls @ 4.99 mls/hr IV TITRATE [facility]; Protocol Last Titration: 03/11/21 08:37 Dose: Infused Documented by: Sodium Chloride (Normal Saline) Confirm Administered Dose 100 mls @ as directed .ROUTE .STK-MED ONE Stop: 03/06/21 21:04 Last Admin: 06/16/21 22:27 Dose: Not Given Documented by: Sodium Chloride (Normal Saline) 1,000 mls @ 300 mls/hr IV ASDIRECTED [facility] Last Admin: 03/06/21 20:35 Dose: 300 mls/hr Documented by: Sodium Chloride (Normal Saline) 1,000 mls @ 999 mls/hr IV ASDIRECTED [facility] Last Admin: 03/06/21 20:35 Dose: 999 mls/hr Documented by: Sodium Chloride (Sodium Chloride 0.45%) 1,000 mls @ 300 mls/hr IV ASDIRECTED PRINCE Last Admin: 03/07/21 02:59 Dose: 300 mls/hr Documented by: Sodium Bicarbonate 100 meq/Potassium Chloride 20 meq/Sterile Water 510 mls @ 255 mls/hr IV ONETIME ONE Stop: 03/07/21 05:29 Last Admin: 03/07/21 04:22 Dose: 255 mls/hr Documented by: Sodium Bicarbonate 100 meq/Potassium Chloride 20 meq/Sterile Water 510 mls @ 255 mls/hr IV ONETIME ONE Stop: 03/07/21 07:29 Potassium Chloride/Sodium Chloride (1/2 Ns With 20 Meq Kcl) 1,000 mls @ 100 mls/hr IV ASDIRECTED PRINCE Last Admin: 03/07/21 06:15 Dose: 100 mls/hr Documented by: Norepinephrine Bitartrate 4 mg (/ Dextrose/Water) 250 mls @ 7.5 mls/hr IV ASDIRECTED PRN; Protocol PRN Reason: To maintain a MAP of 65 Potassium Chloride/Dextrose/Sod Cl (D5 1/2 Ns W/ 20 Meq/L Kcl) 1,000 mls @ 100 mls/hr IV ASDIRECTED PRINCE Last Infusion: 03/09/21 16:30 Dose: 65 mls/hr Documented by: Pantoprazole Sodium 40 mg/ (Sodium Chloride) 100 mls @ 200 mls/hr IV DAILY PRINCE Potassium Chloride/Dextrose/Sod Cl (D5 1/2 Ns W/ 20 Meq/L Kcl) 1,000 mls @ 65 mls/hr IV ASDIRECTED PRINCE Last Admin: 03/11/21 06:07 Dose: 65 mls/hr Documented by: Sodium Chloride (Normal Saline) Confirm Administered Dose 100 mls @ as directed .ROUTE .STK-MED ONE Stop: 03/10/21 19:09 Last Admin: 03/10/21 19:19 Dose: Not Given Documented by: Insulin Human Lispro (Insulin Lispro 100 Unit/Ml 10 Ml Vial) 0 unit SUBCUT QIDACANDBED [facility]; Protocol Last Admin: 03/11/21 12:30 Dose: Not Given Documented by: Insulin Human Lispro (Insulin Lispro 100 Unit/Ml 10 Ml Vial) 20 unit SUBCUT ONETIME ONE Stop: 03/11/21 12:29 Last Admin: 03/11/21 12:36 Dose: 20 units Documented by: Insulin Human Lispro (Insulin Lispro 100 Unit/Ml 10 Ml Vial) 0 unit SUBCUT Q4H [facility]; Protocol Stop: 03/12/21 04:01 Last Admin: 03/12/21 04:58 Dose: 8 units Documented by: Insulin Human Regular (Insulin Regular, Human 100 Units/Ml 3 Ml Vial) Confirm Administered Dose 300 unit .ROUTE .STK-MED ONE Stop: 03/06/21 21:04 Last Admin: 03/06/21 22:27 Dose: Not Given Documented by: Iopamidol (Iopamidol 755 Mg/Ml 100 Ml Bottle) 100 ml IVPUSH ONETIME ONE Stop: 03/09/21 14:02 Last Admin: 03/09/21 14:40 Dose: 100 ml Documented by: Morphine Sulfate (Morphine 2 Mg/Ml Syringe) 2 mg IVPUSH Q4H PRN PRN Reason: Pain (Severe 4-10) Stop: 03/08/21 04:19 Last Admin: 03/07/21 10:17 Dose: 2 mg Documented by: Naloxone HCl (Naloxone 2 Mg/2 Ml Syringe) Confirm Administered Dose 2 mg .ROUTE .STK-MED ONE Stop: 03/06/21 19:53 Last Admin: 03/06/21 22:27 Dose: Not Given Documented by: Naloxone HCl (Naloxone 2 Mg/2 Ml Syringe) 2 mg IVPUSH ONETIME ONE Stop: 03/06/21 19:51 Last Admin: 03/06/21 19:50 Dose: 2 mg Documented by: Naloxone HCl (Naloxone 2 Mg/2 Ml Syringe) 2 mg IVPUSH ONETIME ONE Stop: 03/06/21 19:54 Last Admin: 03/06/21 19:53 Dose: 2 mg Documented by: Naloxone HCl (Naloxone 2 Mg/2 Ml Syringe) Confirm Administered Dose 2 mg .ROUTE .STK-MED ONE Stop: 03/06/21 19:51 Last Admin: 03/07/21 19:10 Dose: Not Given Documented by: Ondansetron HCl (Ondansetron 4 Mg/2 Ml Sdv) 4 mg IV Q6H PRN PRN Reason: Nausea/Vomiting Pantoprazole Sodium (Pantoprazole 40 Mg Vial) 40 mg IVPUSH DAILY PRINCE Last Admin: 03/11/21 09:29 Dose: 40 mg Documented by: - Patient Data Lab Results Last 24 hrs: Laboratory Results - last 24 hr 03/11/21 03/11/21 03/11/21 Range/Units 07:09 08:18 12:18 Sodium (136-145) mEq/L Potassium (3.5-5.1) mEq/L Chloride (98-107) mEq/L Carbon Dioxide (21-32) mEq/L Anion Gap (5-15) BUN (7-18) mg/dL Creatinine (0.7-1.3) mg/dL Est Cr Clr Drug Dosing mL/min Estimated GFR (MDRD) (>60) mL/min BUN/Creatinine Ratio (14-18) Glucose (70-99) mg/dL POC Glucose 125 H 118 H 482 H* (70-99) mg/dL Calcium (8.5-10.1) mg/dL Magnesium (1.8-2.4) mg/dL Total Bilirubin (0.2-1.0) mg/dL AST (15-37) U/L ALT (16-63) U/L Alkaline Phosphatase (46-116) U/L Total Protein (6.4-8.2) g/dl Albumin (3.4-5.0) g/dl Globulin gm/dL Albumin/Globulin Ratio (1-2) 03/11/21 03/11/21 03/11/21 Range/Units 13:06 14:55 17:50 Sodium 132 L D (136-145) mEq/L Potassium 3.7 (3.5-5.1) mEq/L Chloride 95 L (98-107) mEq/L Carbon Dioxide 22 (21-32) mEq/L Anion Gap 18.7 H (5-15) BUN 12 (7-18) mg/dL Creatinine 1.1 (0.7-1.3) mg/dL Est Cr Clr Drug Dosing 76.47 mL/min Estimated GFR (MDRD) > 60 (>60) mL/min BUN/Creatinine Ratio 10.9 L (14-18) Glucose 510 H* (70-99) mg/dL POC Glucose 319 H 169 H (70-99) mg/dL Calcium 7.8 L (8.5-10.1) mg/dL Magnesium (1.8-2.4) mg/dL Total Bilirubin (0.2-1.0) mg/dL AST (15-37) U/L ALT (16-63) U/L Alkaline Phosphatase (46-116) U/L Total Protein (6.4-8.2) g/dl Albumin (3.4-5.0) g/dl Globulin gm/dL Albumin/Globulin Ratio (1-2) 03/11/21 03/12/21 03/12/21 Range/Units 20:40 00:26 04:46 Sodium (136-145) mEq/L Potassium (3.5-5.1) mEq/L Chloride (98-107) mEq/L Carbon Dioxide (21-32) mEq/L Anion Gap (5-15) BUN (7-18) mg/dL Creatinine (0.7-1.3) mg/dL Est Cr Clr Drug Dosing mL/min Estimated GFR (MDRD) (>60) mL/min BUN/Creatinine Ratio (14-18) Glucose (70-99) mg/dL POC Glucose 102 H 211 H 363 H (70-99) mg/dL Calcium (8.5-10.1) mg/dL Magnesium (1.8-2.4) mg/dL Total Bilirubin (0.2-1.0) mg/dL AST (15-37) U/L ALT (16-63) U/L Alkaline Phosphatase (46-116) U/L Total Protein (6.4-8.2) g/dl Albumin (3.4-5.0) g/dl Globulin gm/dL Albumin/Globulin Ratio (1-2) 03/12/21 Range/Units 05:50 Sodium 137 (136-145) mEq/L Potassium 4.3 (3.5-5.1) mEq/L Chloride 99 (98-107) mEq/L Carbon Dioxide 23 (21-32) mEq/L Anion Gap 19.3 H (5-15) BUN 19 H (7-18) mg/dL Creatinine 1.0 (0.7-1.3) mg/dL Est Cr Clr Drug Dosing 84.11 mL/min Estimated GFR (MDRD) > 60 (>60) mL/min BUN/Creatinine Ratio 19.0 H (14-18) Glucose 380 H (70-99) mg/dL POC Glucose (70-99) mg/dL Calcium 8.3 L (8.5-10.1) mg/dL Magnesium 1.6 L (1.8-2.4) mg/dL Total Bilirubin 0.7 (0.2-1.0) mg/dL AST 192 H (15-37) U/L ALT 342 H (16-63) U/L Alkaline Phosphatase 303 H (46-116) U/L Total Protein 6.5 (6.4-8.2) g/dl Albumin 2.7 L (3.4-5.0) g/dl Globulin 3.8 gm/dL Albumin/Globulin Ratio 0.7 L (1-2) Result Diagrams: 03/11/21 05:10 03/12/21 05:50 Rosalio Results Last 24 hrs: Microbiology 03/07/21 06:30 Aerobic Blood Culture - Preliminary Blood - Venous - Lab Draw NO GROWTH AFTER 5 DAYS Anaerobic Blood Culture - Preliminary NO GROWTH AFTER 5 DAYS 03/07/21 05:10 Aerobic Blood Culture - Preliminary Blood - Venous NO GROWTH AFTER 5 DAYS Anaerobic Blood Culture - Final Sepsis Event Note - Focused Exam Vital Signs: Vital Signs Temp Pulse Pulse Resp BP BP Pulse Ox 03/12/21 04:59 86 116/83 03/12/21 03:00 36.4 C 86 16 116/81 97 03/12/21 00:43 36.1 C 91 16 113/82 100 03/11/21 20:00 36.1 C 86 14 118/65 98 - Plan Plan:: I have seen and examined the patient independently of Jay Aleman PA-C, and have reviewed the case with him. I have reviewed and agree with the plan and care as outlined by him. Please see orders.
[2021-03-11] MEDS: Furosemide 20 MG/2 ML VIAL IVPUSH SCH (09:28)
[2021-03-11] MEDS: Aspirin 81 MG Tab.EC PO SCH (09:28)
[2021-03-11] MEDS: Azithromycin 250 MG Tab PO SCH (09:28)
[2021-03-11] MEDS: Pantoprazole 40 MG Vial IVPUSH SCH (09:29)
[2021-03-11] MEDS ORDERED: Insulin Lispro 100 UNIT/ML 10 ML Vial SUBCUT SCH (11:00)
[2021-03-11] MEDS ORDERED: Insulin Lispro 100 UNIT/ML 10 ML Vial SUBCUT ONE (12:28)
[2021-03-11] MEDS: Insulin Lispro 100 UNIT/ML 10 ML Vial SUBCUT SCH (17:58)
[2021-03-12] MEDS: Insulin Lispro 100 UNIT/ML 10 ML Vial SUBCUT SCH ×4 (00:39→11:30)
[2021-03-12] MEDS: Enoxaparin 40 MG/0.4 ML Syringe SUBCUT SCH (00:40)
[2021-03-12] MEDS: Metoprolol Tartrate 25 MG Tab PO SCH (04:59)
--- NOTE | 2021-03-12 07:45 | PCM.DCSUM1 ---
<Jay Aleman - Last Filed: 03/12/21 12:54> Discharge Summary - Hospital Course HPI Initial Comments: Patient is a 26-year-old male with a history of type 1 diabetes, substance abuse, medical noncompliance and history of DKA who was brought to the ER due to AMS. Girlfriend found him to be unresponsive after she came back after work but he was fine when she left for work in the morning. EMS to checked his blood sugar showing 500. In the ER, he was not responsive to Narcan. His blood sugar was found to be 800. Insulin drip was initiated. CT chest no acute change. Other labs pH 6.74, hemoglobin 11.6, bicarbonate 3, creatinine 1.7, serum osmolality 360, phosphorus of 4.4, magnesium 2.5, AST 360, ALT 653, alkaline phos 364 and urine drug screen positive for cocaine. Patient was admitted to the hospital recently for DKA. Diagnosis: Stroke: No - Discharge Data Discharge Date: 03/12/21 (Admit date: 03/06/2021) Discharge Disposition: Home, Self-Care 01 Condition: Good - Referral to Home Health Primary Care Physician: Faina Frost NP - Discharge Diagnosis/Problem(s) (1) Acute renal insufficiency SNOMED Code(s): 302698781 ICD Code: N28.9 - DISORDER OF KIDNEY AND URETER, UNSPECIFIED Status: Resolved Priority: High (2) Cocaine abuse SNOMED Code(s): 96053051 ICD Code: F14.10 - COCAINE ABUSE, UNCOMPLICATED Status: Acute Priority: Medium (3) High anion gap metabolic acidosis SNOMED Code(s): 33832535 ICD Code: E87.2 - ACIDOSIS Status: Chronic Priority: High (4) Elevated d-dimer SNOMED Code(s): 972651894 ICD Code: R79.89 - OTHER SPECIFIED ABNORMAL FINDINGS OF BLOOD CHEMISTRY Status: Ruled-out Priority: High (5) Hypotension SNOMED Code(s): 90910740 ICD Code: I95.9 - HYPOTENSION, UNSPECIFIED Status: Resolved Priority: High Qualifiers: Hypotension type: unspecified hypotension type Qualified Code(s): I95.9 - Hypotension, unspecified (6) History of tobacco use SNOMED Code(s): 029941611 ICD Code: Z87.891 - PERSONAL HISTORY OF NICOTINE DEPENDENCE Status: Chronic Priority: Low (7) Transaminitis SNOMED Code(s): 627022438, 029578538 ICD Code: R74.01 - ELEVATION OF LEVELS OF LIVER TRANSAMINASE LEVELS Status: Acute Priority: High (8) Bronchitis SNOMED Code(s): 15663138 ICD Code: J40 - BRONCHITIS, NOT SPECIFIED ACUTE OR CHRONIC Status: Acute Priority: High (9) Altered mental status SNOMED Code(s): 909666723 ICD Code: R41.82 - ALTERED MENTAL STATUS, UNSPECIFIED Status: Resolved Priority: High Problem Details: Qualifiers: Altered mental status type: coma Coma depth: unspecified coma depth Qualified Code(s): R40.20 - Unspecified coma (10) Hyperglycemia due to type 1 diabetes mellitus SNOMED Code(s): 517157372727664, 071666873322614 ICD Code: E10.65 - TYPE 1 DIABETES MELLITUS WITH HYPERGLYCEMIA Status: Acu te Priority: High (11) Medical non-compliance SNOMED Code(s): 497213624 ICD Code: Z91.19 - PATIENT'S NONCOMPLIANCE W OTH MEDICAL TREATMENT AND REGIMEN Status: Chronic Priority: High (12) Type I diabetes mellitus SNOMED Code(s): 22929537 ICD Code: E10.9 - TYPE 1 DIABETES MELLITUS WITHOUT COMPLICATIONS Status: Chronic Priority: High Qualifiers: Diabetes mellitus complication status: with hyperglycemia Qualified Code(s): E10.65 - Type 1 diabetes mellitus with hyperglycemia (13) Leukocytosis SNOMED Code(s): 413828677, 317085830 ICD Code: D72.829 - ELEVATED WHITE BLOOD CELL COUNT, UNSPECIFIED Status: Resolved Priority: High Qualifiers: Leukocytosis type: unspecified Qualified Code(s): D72.829 - Elevated white blood cell count, unspecified (14) Diabetic ketoacidosis SNOMED Code(s): 781380990, 600892879 ICD Code: E11.10 - TYPE 2 DIABETES MELLITUS WITH KETOACIDOSIS WITHOUT COMA Status: Resolved Priority: High Qualifiers: Diabetes mellitus type: type 1 Diabetes mellitus complication detail: without coma Qualified Code(s): E10.10 - Type 1 diabetes mellitus with ketoa cidosis without coma - Patient Summary/Data Consults: Consultations 03/07/21 04:13 Consult to Diabetic Nurse Specialist [CONS] Routine 03/08/21 10:41 Consult to Physician [CONS] Routine Labs Pending at D/C: Hepatitis panel is pending Recommended Follow-up Testing/Procedures: Follow-up with primary care provider within 7 to 10 days of discharge, sooner if needed. Follow-up with produce team member at next available appointment. Hospital Course: This is a 26-year-old male who presents to our ED on 03/06/2021 via EMS due to an altered mental status. He was reportedly found by his girlfriend unresponsive and upon EMS arrival he was noted to have a blood glucose over 500 and be incontinent of urine. He is very well-known to this service as he has been hospitalized multiple times in the past for DKA and medical noncompliance, with his last visit being on 01-16-2021. He is noted in the ED to be mildly hypotensive with a blood pressure 96/49 and tachypneic. Blood glucose in the ED is noted to be 828. Serum osmolality is 360. Lactic acid is 2.9. Creatinine is noted to be 1.7 with a GFR of 50. Urine drug screen is positive for cocaine and alcohol is negative. Serum ketones were noted to be 0.48. ABG was obtained showing a pH of 6.74, a PCO2 of 14.7, a PO2 of 143.0, and HCO3 of 1.9. This was obtained on room air. He was given Narcan with no change in his condition. He was given IV fluids and started on insulin drip. CT of the head was obtained and was negative. As noted patient has been here multiple times in the past and has a chronically elevated anion gap. Patient has been noncompliant with his medications on multiple occasions. Patient did respond well to treatment with IV fluids and insulin and again noted that he was unable to refill his medications as he had no more refills left. We discussed the importance of him continuing to monitor his prescriptions and how refills are his responsibility. He was noted to have a cough while here and states that this has been chronic for him since he was intubated on a prior episode of DKA. Patient was noted to have an episode of desaturation during his stay. Dimer was obtained and was elevated at 1.58. proBNP was obtained and was 3206. CTA was obtained showing no findings of pulmonary embolism however there were small bilateral pleural effusions which are noted as an interval change. There is also decreased parenchymal change from prior chest CT study within both lower mendez ngs and small areas of new increased density noted within both upper lungs. Body wall edema is noted and mildly enlarged liver is also seen. Slight wall thickening within the trachea was noted raising the possibility of prior intubation. Venous Doppler study was obtained and was negative for DVT. Echocardiogram was obtained and was interpreted as "1. Left ventricular ejection fraction, by visual estimation, is 65 to 70%. 2. Normal left ventricular systolic function. 3. Normal pattern of left ventricular diastolic filling. 4. Normal right ventricular size, wall thickness, and systolic f unction. 5. Trace aortic valve regurgitation. 6. Trace mitral valve regurgitation. 7. Trace tricuspid valve regurgitation. 8. The right ventricular systolic pressure is normal at 16.0 mmHg. 9. No regional wall motion abnormalities. He was started on 250 mg daily azithromycin for treatment of bronchitis and completed 4 days of treatment prior to discharge. He will be prescribed one more dose, which she should take on 03/13/2021. He was slightly tachycardic here and was on 12.5 mg twice daily metoprolol. This will not be continued at discharge. Our dietitian did see him and patient is well versed in carb counting and does know how to manage his diabetes. Prescription refills were sent for both long and short acting insulin. We discussed patient's drug use as he was positive for cocaine. Patient is a former smoker and former frequent alcohol user, but he does state since his grandma's that he has quit both of these. Dr. Zamora, [facility] ultimately [facility]. His liver enzymes were noted to be elevated and these did trend downward throughout his stay. Hepatitis panel was obtained and is pending. PCP should follow-up with this. Renal function did return to normal prior to discharge. He was discharged home today. Recommend follow-up with primary care provider within 7 to 10 days of discharge, sooner if needed. Recommend follow-up with outpatient produce team member and next available appointment. He did see our inpatient produce team member while here. Discharged home today with prescription for azithromycin and refills for home dose of long and short acting insulin as noted. Patient advised to return the emergency room or contact primary care provider should symptoms return or worsen. Patient was given a work release and may return to work on 03/14/2021 with no restrictions. - Patient Instructions Diet: Diabetic Diet Activity: As Tolerated Driving: Do Not Drive (today ) Showering/Bathing: May Shower Notify Provider of: Fever, Increased Pain, Nausea and/or Vomiting Other/Special Instructions: Follow-up with primary care provider within 7-10 days of discharge, sooner if needed. Follow-up with produce team member at next available appointment as we discussed. You need to watch after your refills with your insulin. If you get down on your refills you need to be responsible and contact your pharmacy to get a refill request sent. Monitor your blood glucose readings as before. Continue your carb counting as before. Stop using cocaine and other drugs. Continue to refrain from using alcohol. Good job on staying sober. Continue to refrain from smoking. This is one of the best things you can do for your health. Nice work on stopping smoking! Should sympotms return or worsen contact primary care provider or return to the Emergency Deparment. - Discharge Plan *PRESCRIPTION DRUG MONITORING PROGRAM REVIEWED*: No *COPY OF PRESCRIPTION DRUG MONITORING REPORT IN PATIENT [place]: No Prescriptions/Med Rec: Insulin Glarg,Human.Rec.Analog [Lantus] 20 unit SUBCUT DAILY #5 ml Insulin Aspart [NovoLOG] 0 unit SQ ASDIRECTED #5 pen Azithromycin [Zithromax] 250 mg PO DAILY #1 tablet Tobacco Cessation Medication: Prescription Refused (Patient quit smoking quite awhile ago and has had no issues since) Home Medications: Home Meds Azithromycin [Zithromax] 250 mg PO DAILY #1 tablet 03/12/21 [Rx] Insulin Aspart [NovoLOG] 0 unit SQ ASDIRECTED #5 pen 03/12/21 [Rx] Insulin Glarg,Human.Rec.Analog [Lantus] 20 unit SUBCUT DAILY #5 ml 03/12/21 [Rx] Oxygen Therapy Mode: Room Air Patient Handouts: Steps to Quit Smoking Forms: Return to Work/Inpatient [facility] Referrals: Joelle Hernandez PA-C [Other] - 04/15/21 1:00 pm (This appt. is in [place] [facility] time check in 12:45) Faina Frost NP [Primary Care Provider] - (Patient does not want me to make this appt. encouraged to follow up) - Discharge Summary/Plan Comment DC Time >30 min.: Yes (45 mins ) - General Info Date of Service: 03/12/21 Admission Dx/Problem (Free Text: Admission Diagnosis/Problem Admission Diagnosis/Problem Diabetic ketoacidosis Functional Status: Reports: Pain Controlled, Tolerating Diet, Ambulating, Urinating. Denies: New Symptoms - Review of Systems General: Reports: No Symptoms. Denies: Fever, Weakness, Fatigue, Malaise, Chills HEENT: Reports: No Symptoms. Denies: Headaches, Sore Throat Pulmonary: Reports: Cough (chornic ). Denies: Shortness of Breath, Pleuritic Chest Pain, Sputum, Wheezing Cardiovascular: Reports: No Symptoms. Denies: Chest Pain, Palpitations, Dyspnea on Exertion, Edema Gastrointestinal: Reports: No Symptoms. Denies: Abdominal Pain, Constipation, Diarrhea, Nausea, Vomiting Genitourinary: Reports: No Symptoms. Denies: Pain Musculoskeletal: Reports: No Symptoms Skin: Reports: No Symptoms. Denies: Cyanosis Neurological: Reports: No Symptoms. Denies: Confusion, Numbness, Seizure, Syncope, Tingling, Difficulty Walking, Weakness, Gait Disturbance Psychiatric: Reports: No Symptoms - Patient Data Vitals - Most Recent: Last Vital Signs Temp 97.6 F 03/12/21 03:00 Pulse 86 03/12/21 04:59 Resp 16 03/12/21 03:00 BP 116/83 03/12/21 04:59 Pulse Ox 97 03/12/21 03:00 Weight - Most Recent: 52.208 kg I&O - Last 24 hours: Intake & Output 03/11/21 03/12/21 03/12/21 22:59 06:59 14:59 Intake Total 1570 800 Output Total 1000 850 Balance 570 -50 Lab Results - Last 24 hrs: Laboratory Results - last 24 hr 03/11/21 03/11/21 03/11/21 Range/Units 08:18 12:18 13:06 Sodium 132 L D (136-145) mEq/L Potassium 3.7 (3.5-5.1) mEq/L Chloride 95 L (98-107) mEq/L Carbon Dioxide 22 (21-32) mEq/L Anion Gap 18.7 H (5-15) BUN 12 (7-18) mg/dL Creatinine 1.1 (0.7-1.3) mg/dL Est Cr Clr Drug Dosing 76.47 mL/min Estimated GFR (MDRD) > 60 (>60) mL/min BUN/Creatinine Ratio 10.9 L (14-18) Glucose 510 H* (70-99) mg/dL POC Glucose 118 H 482 H* (70-99) mg/dL Calcium 7.8 L (8.5-10.1) mg/dL Magnesium (1.8-2.4) mg/dL Total Bilirubin (0.2-1.0) mg/dL AST (15-37) U/L ALT (16-63) U/L Alkaline Phosphatase (46-116) U/L Total Protein (6.4-8.2) g/dl Albumin (3.4-5.0) g/dl Globulin gm/dL Albumin/Globulin Ratio (1-2) 03/11/21 03/11/21 03/11/21 Range/Units 14:55 17:50 20:40 Sodium (136-145) mEq/L Potassium (3.5-5.1) mEq/L Chloride (98-107) mEq/L Carbon Dioxide (21-32) mEq/L Anion Gap (5-15) BUN (7-18) mg/dL Creatinine (0.7-1.3) mg/dL Est Cr Clr Drug Dosing mL/min Estimated GFR (MDRD) (>60) mL/min BUN/Creatinine Ratio (14-18) Glucose (70-99) mg/dL POC Glucose 319 H 169 H 102 H (70-99) mg/dL Calcium (8.5-10.1) mg/dL Magnesium (1.8-2.4) mg/dL Total Bilirubin (0.2-1.0) mg/dL AST (15-37) U/L ALT (16-63) U/L Alkaline Phosphatase (46-116) U/L Total Protein (6.4-8.2) g/dl Albumin (3.4-5.0) g/dl Globulin gm/dL Albumin/Globulin Ratio (1-2) 03/12/21 03/12/21 03/12/21 Range/Units 00:26 04:46 05:50 Sodium 137 (136-145) mEq/L Potassium 4.3 (3.5-5.1) mEq/L Chloride 99 (98-107) mEq/L Carbon Dioxide 23 (21-32) mEq/L Anion Gap 19.3 H (5-15) BUN 19 H (7-18) mg/dL Creatinine 1.0 (0.7-1.3) mg/dL Est Cr Clr Drug Dosing 84.11 mL/min Estimated GFR (MDRD) > 60 (>60) mL/min BUN/Creatinine Ratio 19.0 H (14-18) Glucose 380 H (70-99) mg/dL POC Glucose 211 H 363 H (70-99) mg/dL Calcium 8.3 L (8.5-10.1) mg/dL Magnesium 1.6 L (1.8-2.4) mg/dL Total Bilirubin 0.7 (0.2-1.0) mg/dL AST 192 H (15-37) U/L ALT 342 H (16-63) U/L Alkaline Phosphatase 303 H (46-116) U/L Total Protein 6.5 (6.4-8.2) g/dl Albumin 2.7 L (3.4-5.0) g/dl Globulin 3.8 gm/dL Albumin/Globulin Ratio 0.7 L (1-2) 03/12/21 Range/Units 07:32 Sodium (136-145) mEq/L Potassium (3.5-5.1) mEq/L Chloride (98-107) mEq/L Carbon Dioxide (21-32) mEq/L Anion Gap (5-15) BUN (7-18) mg/dL Creatinine (0.7-1.3) mg/dL Est Cr Clr Drug Dosing mL/min Estimated GFR (MDRD) (>60) mL/min BUN/Creatinine Ratio (14-18) Glucose (70-99) mg/dL POC Glucose 206 H (70-99) mg/dL Calcium (8.5-10.1) mg/dL Magnesium (1.8-2.4) mg/dL Total Bilirubin (0.2-1.0) mg/dL AST (15-37) U/L ALT (16-63) U/L Alkaline Phosphatase (46-116) U/L Total Protein (6.4-8.2) g/dl Albumin (3.4-5.0) g/dl Globulin gm/dL Albumin/Globulin Ratio (1-2) MEGAN Results - Last 24 hrs: Microbiology 03/07/21 06:30 Aerobic Blood Culture - Preliminary Blood - Venous - Lab Draw NO GROWTH AFTER 5 DAYS Anaerobic Blood Culture - Preliminary NO GROWTH AFTER 5 DAYS 03/07/21 05:10 Aerobic Blood Culture - Preliminary Blood - Venous NO GROWTH AFTER 5 DAYS Anaerobic Blood Culture - Final Med Orders - Current: Current Medications Acetaminophen (Acetaminophen 325 Mg Tab) 325 mg PO Q6H PRN PRN Reason: Pain (Mild 1-3)/fever Albuterol/Ipratropium (Albuterol/Ipratropium 3.0-0.5 Mg/3 Ml Neb Soln) 3 ml NEB Q4H PRN PRN Reason: Shortness Of Breath/wheezing Last Admin: 03/10/21 04:43 Dose: 3 ml Documented by: Aspirin (Aspirin 81 Mg Tab.Ec) 81 mg PO DAILY [facility] Last Admin: 03/11/21 09:28 Dose: 81 mg Documented by: Azithromycin (Azithromycin 250 Mg Tab) 250 mg PO DAILY PRINCE Stop: 03/13/21 23:59 Last Admin: 03/11/21 09:28 Dose: 250 mg Documented by: Enoxaparin Sodium (Enoxaparin 40 Mg/0.4 Ml Syringe) 40 mg SUBCUT BEDTIME [facility] Last Admin: 03/12/21 00:40 Dose: Not Given Documented by: Guaifenesin/Phenylephrine HCl (Guaifenesin/Dextromethorphan 100-10 Mg/5 Ml Soln 5 Ml Cup) 5 ml PO Q6H PRN PRN Reason: Cough Last Admin: 03/11/21 05:13 Dose: 5 ml Documented by: Promethazine HCl 12.5 mg/ (Sodium Chloride) 50.5 mls @ 100 mls/hr IV Q6H PRN PRN Reason: Nausea/Vomiting Insulin Human Lispro (Insulin Lispro 100 Unit/Ml 10 Ml Vial) 0 unit SUBCUT TIDMEALS [facility] Last Admin: 03/12/21 07:39 Dose: 8 units Documented by: Metoprolol Tartrate (Metoprolol Tartrate 25 Mg Tab) 12.5 mg PO Q12H [facility] Last Admin: 03/12/21 04:59 Dose: 12.5 mg Documented by: Pantoprazole Sodium (Pantoprazole 40 Mg Tab.Cr) 40 mg PO DAILY [facility] Discontinued Medications Aspirin (Aspirin 325 Mg Tab.Ec) 325 mg PO ONETIME ONE Stop: 03/07/21 04:31 Last Admin: 03/07/21 05:04 Dose: Not Given Documented by: Azithromycin (Azithromycin 250 Mg Tab) 500 mg PO ONETIME ONE Stop: 03/09/21 10:27 Last Admin: 03/09/21 11:38 Dose: 500 mg Documented by: Furosemide (Furosemide 20 Mg/2 Ml Vial) 20 mg IVPUSH BIDDIURETIC PRINCE Last Admin: 03/10/21 06:19 Dose: 20 mg Documented by: Furosemide (Furosemide 20 Mg/2 Ml Vial) 20 mg IVPUSH BID PRINCE Stop: 03/11/21 09:01 Last Admin: 03/11/21 09:28 Dose: 20 mg Documented by: Heparin Sodium (Porcine) (Heparin Sodium 5,000 Units/Ml Vial) 5,000 units SUBCUT Q8H PRINCE Last Admin: 03/09/21 11:38 Dose: 5,000 units Documented by: Sodium Chloride (Normal Saline) 1,000 mls @ 999 mls/hr IV ONETIME ONE Stop: 03/06/21 20:58 Last Admin: 03/06/21 19:50 Dose: 999 mls/hr Documented by: Sodium Chloride (Normal Saline) 1,000 mls @ 999 mls/hr IV ONETIME ONE Stop: 03/06/21 20:58 Last Admin: 03/06/21 19:57 Dose: 999 mls/hr Documented by: Insulin Human Regular 100 unit (/ Sodium Chloride) 100 mls @ 4.99 mls/hr IV TITRATE PRINCE; Protocol Last Titration: 03/11/21 08:37 Dose: Infused Documented by: Sodium Chloride (Normal Saline) Confirm Administered Dose 100 mls @ as directed .ROUTE .STK-MED ONE Stop: 03/06/21 21:04 Last Admin: 03/06/21 22:27 Dose: Not Given Documented by: Sodium Chloride (Normal Saline) 1,000 mls @ 300 mls/hr IV ASDIRECTED PRINCE Last Admin: 03/06/21 20:35 Dose: 300 mls/hr Documented by: Sodium Chloride (Normal Saline) 1,000 mls @ 999 mls/hr IV ASDIRECTED PRINCE Last Admin: 03/06/21 20:35 Dose: 999 mls/hr Documented by: Sodium Chloride (Sodium Chloride 0.45%) 1,000 mls @ 300 mls/hr IV ASDIRECTED PRINCE Last Admin: 03/07/21 02:59 Dose: 300 mls/hr Documented by: Sodium Bicarbonate 100 meq/Potassium Chloride 20 meq/Sterile Water 510 mls @ 255 mls/hr IV ONETIME ONE Stop: 03/07/21 05:29 Last Admin: 03/07/21 04:22 Dose: 255 mls/hr Documented by: Sodium Bicarbonate 100 meq/Potassium Chloride 20 meq/Sterile Water 510 mls @ 255 mls/hr IV ONETIME ONE Stop: 03/07/21 07:29 Potassium Chloride/Sodium Chloride (1/2 Ns With 20 Meq Kcl) 1,000 mls @ 100 mls/hr IV ASDIRECTED PRINCE Last Admin: 03/07/21 06:15 Dose: 100 mls/hr Documented by: Norepinephrine Bitartrate 4 mg (/ Dextrose/Water) 250 mls @ 7.5 mls/hr IV ASDIRECTED PRN; Protocol PRN Reason: To maintain a MAP of 65 Potassium Chloride/Dextrose/Sod Cl (D5 1/2 Ns W/ 20 Meq/L Kcl) 1,000 mls @ 100 mls/hr IV ASDIRECTED PRINCE Last Infusion: 03/09/21 16:30 Dose: 65 mls/hr Documented by: Pantoprazole Sodium 40 mg/ (Sodium Chloride) 100 mls @ 200 mls/hr IV DAILY PRINCE Potassium Chloride/Dextrose/Sod Cl (D5 1/2 Ns W/ 20 Meq/L Kcl) 1,000 mls @ 65 mls/hr IV ASDIRECTED PRINCE Last Admin: 03/11/21 06:07 Dose: 65 mls/hr Documented by: Sodium Chloride (Normal Saline) Confirm Administered Dose 100 mls @ as directed .ROUTE .STK-MED ONE Stop: 03/10/21 19:09 Last Admin: 03/10/21 19:19 Dose: Not Given Documented by: Insulin Human Lispro (Insulin Lispro 100 Unit/Ml 10 Ml Vial) 0 unit SUBCUT QIDACANDBED [facility]; Protocol Last Admin: 03/11/21 12:30 Dose: Not Given Documented by: Insulin Human Lispro (Insulin Lispro 100 Unit/Ml 10 Ml Vial) 20 unit SUBCUT ONETIME ONE Stop: 03/11/21 12:29 Last Admin: 03/11/21 12:36 Dose: 20 units Documented by: Insulin Human Lispro (Insulin Lispro 100 Unit/Ml 10 Ml Vial) 0 unit SUBCUT Q4H [facility]; Protocol Stop: 03/12/21 04:01 Last Admin: 03/12/21 04:58 Dose: 8 units Documented by: Insulin Human Regular (Insulin Regular, Human 100 Units/Ml 3 Ml Vial) Confirm Administered Dose 300 unit .ROUTE .STK-MED ONE Stop: 03/06/21 21:04 Last Admin: 03/06/21 22:27 Dose: Not Given Documented by: Iopamidol (Iopamidol 755 Mg/Ml 100 Ml Bottle) 100 ml IVPUSH ONETIME ONE Stop: 03/09/21 14:02 Last Admin: 03/09/21 14:40 Dose: 100 ml Documented by: Morphine Sulfate (Morphine 2 Mg/Ml Syringe) 2 mg IVPUSH Q4H PRN PRN Reason: Pain (Severe 4-10) Stop: 03/08/21 04:19 Last Admin: 03/07/21 10:17 Dose: 2 mg Documented by: Naloxone HCl (Naloxone 2 Mg/2 Ml Syringe) Confirm Administered Dose 2 mg .ROUTE .STK-MED ONE Stop: 03/06/21 19:53 Last Admin: 03/06/21 22:27 Dose: Not Given Documented by: Naloxone HCl (Naloxone 2 Mg/2 Ml Syringe) 2 mg IVPUSH ONETIME ONE Stop: 03/06/21 19:51 Last Admin: 03/06/21 19:50 Dose: 2 mg Documented by: Naloxone HCl (Naloxone 2 Mg/2 Ml Syringe) 2 mg IVPUSH ONETIME ONE Stop: 03/06/21 19:54 Last Admin: 03/06/21 19:53 Dose: 2 mg Documented by: Naloxone HCl (Naloxone 2 Mg/2 Ml Syringe) Confirm Administered Dose 2 mg .ROUTE .STK-MED ONE Stop: 03/06/21 19:51 Last Admin: 03/07/21 19:10 Dose: Not Given Documented by: Ondansetron HCl (Ondansetron 4 Mg/2 Ml Sdv) 4 mg IV Q6H PRN PRN Reason: Nausea/Vomiting Pantoprazole Sodium (Pantoprazole 40 Mg Vial) 40 mg IVPUSH DAILY [facility] Last Admin: 03/11/21 09:29 Dose: 40 mg Documented by: - Exam Quality Assessment: Reports: DVT Prophylaxis. Denies: Supplemental Oxygen, Urine Catheter General: Reports: Alert, Oriented, Cooperative, No Acute Distress HEENT: Reports: Pupils Equal, Pupils Reactive, Mucous Membr. Moist/[place] Neck: Reports: Supple, Trachea Midline Lungs: Reports: Clear to Auscultation, Normal Respiratory Effort Cardiovascular: Reports: Regular Rate, Regular Rhythm GI/Abdominal Exam: Normal Bowel Sounds, Soft, Non-Tender, No Distention (Male) Exam: Deferred Rectal (Males) Exam: Deferred Back Exam: Reports: Normal Inspection, Full Range of Motion Extremities: Normal Inspection, Normal Range of Motion, Non-Tender, No Pedal Edema, Normal Capillary Refill Skin: Reports: Warm, Dry, Intact Neurological: Reports: No New Focal Deficit Psy/Mental Status: Reports: Alert, Normal Affect, Normal Mood <IdaniaAbdirahman - Last Filed: 03/12/21 15:42> Discharge Summary - Referral to Home Health Primary Care Physician: Faina Frost NP - Patient Summary/Data Consults: Consultations 03/07/21 04:13 Consult to Diabetic Nurse Specialist [CONS] Routine 03/08/21 10:41 Consult to Physician [CONS] Routine Hospital Course: I have seen and examined the patient independently of Jay Aleman PA-C, and have reviewed the case with him. I have reviewed and agree with the plan and care as outlined by him. Please see orders. - Patient Data Vitals - Most Recent: Last Vital Signs Temp 37.0 C 03/12/21 09:00 Pulse 75 03/12/21 09:00 Resp 16 03/12/21 09:00 BP 121/79 03/12/21 09:00 Pulse Ox 98 03/12/21 09:00 I&O - Last 24 hours: Intake & Output 03/12/21 03/12/21 03/12/21 06:59 14:59 22:59 Intake Total 800 440 Output Total 850 900 Balance -50 -460 Lab Results - Last 24 hrs: Laboratory Results - last 24 hr 03/11/21 03/11/21 03/12/21 Range/Units 17:50 20:40 00:26 Sodium (136-145) mEq/L Potassium (3.5-5.1) mEq/L Chloride (98-107) mEq/L Carbon Dioxide (21-32) mEq/L Anion Gap (5-15) BUN (7-18) mg/dL Creatinine (0.7-1.3) mg/dL Est Cr Clr Drug Dosing mL/min Estimated GFR (MDRD) (>60) mL/min BUN/Creatinine Ratio (14-18) Glucose (70-99) mg/dL POC Glucose 169 H 102 H 211 H (70-99) mg/dL Calcium (8.5-10.1) mg/dL Magnesium (1.8-2.4) mg/dL Total Bilirubin (0.2-1.0) mg/dL AST (15-37) U/L ALT (16-63) U/L Alkaline Phosphatase (46-116) U/L Total Protein (6.4-8.2) g/dl Albumin (3.4-5.0) g/dl Globulin gm/dL Albumin/Globulin Ratio (1-2) 03/12/21 03/12/21 03/12/21 Range/Units 04:46 05:50 07:32 Sodium 137 (136-145) mEq/L Potassium 4.3 (3.5-5.1) mEq/L Chloride 99 (98-107) mEq/L Carbon Dioxide 23 (21-32) mEq/L Anion Gap 19.3 H (5-15) BUN 19 H (7-18) mg/dL Creatinine 1.0 (0.7-1.3) mg/dL Est Cr Clr Drug Dosing 84.11 mL/min Estimated GFR (MDRD) > 60 (>60) mL/min BUN/Creatinine Ratio 19.0 H (14-18) Glucose 380 H (70-99) mg/dL POC Glucose 363 H 206 H (70-99) mg/dL Calcium 8.3 L (8.5-10.1) mg/dL Magnesium 1.6 L (1.8-2.4) mg/dL Total Bilirubin 0.7 (0.2-1.0) mg/dL AST 192 H (15-37) U/L ALT 342 H (16-63) U/L Alkaline Phosphatase 303 H (46-116) U/L Total Protein 6.5 (6.4-8.2) g/dl Albumin 2.7 L (3.4-5.0) g/dl Globulin 3.8 gm/dL Albumin/Globulin Ratio 0.7 L (1-2) 03/12/21 Range/Units 11:24 Sodium (136-145) mEq/L Potassium (3.5-5.1) mEq/L Chloride (98-107) mEq/L Carbon Dioxide (21-32) mEq/L Anion Gap (5-15) BUN (7-18) mg/dL Creatinine (0.7-1.3) mg/dL Est Cr Clr Drug Dosing mL/min Estimated GFR (MDRD) (>60) mL/min BUN/Creatinine Ratio (14-18) Glucose (70-99) mg/dL POC Glucose 125 H (70-99) mg/dL Calcium (8.5-10.1) mg/dL Magnesium (1.8-2.4) mg/dL Total Bilirubin (0.2-1.0) mg/dL AST (15-37) U/L ALT (16-63) U/L Alkaline Phosphatase (46-116) U/L Total Protein (6.4-8.2) g/dl Albumin (3.4-5.0) g/dl Globulin gm/dL Albumin/Globulin Ratio (1-2) MEGAN Results - Last 24 hrs: Microbiology 03/07/21 06:30 Aerobic Blood Culture - Preliminary Blood - Venous - Lab Draw NO GROWTH AFTER 5 DAYS Anaerobic Blood Culture - Preliminary NO GROWTH AFTER 5 DAYS 03/07/21 05:10 Aerobic Blood Culture - Preliminary Blood - Venous NO GROWTH AFTER 5 DAYS Anaerobic Blood Culture - Final Med Orders - Current: Current Medications Discontinued Medications Acetaminophen (Acetaminophen 325 Mg Tab) 325 mg PO Q6H PRN PRN Reason: Pain (Mild 1-3)/fever Albuterol/Ipratropium (Albuterol/Ipratropium 3.0-0.5 Mg/3 Ml Neb Soln) 3 ml NEB Q4H PRN PRN Reason: Shortness Of Breath/wheezing Last Admin: 03/10/21 04:43 Dose: 3 ml Documented by: Aspirin (Aspirin 325 Mg Tab.Ec) 325 mg PO ONETIME ONE Stop: 03/07/21 04:31 Last Admin: 03/07/21 05:04 Dose: Not Given Documented by: Aspirin (Aspirin 81 Mg Tab.Ec) 81 mg PO DAILY PRINCE Last Admin: 03/12/21 08:59 Dose: 81 mg Documented by: Azithromycin (Azithromycin 250 Mg Tab) 500 mg PO ONETIME ONE Stop: 03/09/21 10:27 Last Admin: 03/09/21 11:38 Dose: 500 mg Documented by: Azithromycin (Azithromycin 250 Mg Tab) 250 mg PO DAILY PRINCE Stop: 03/13/21 23:59 Last Admin: 03/12/21 08:58 Dose: 250 mg Documented by: Enoxaparin Sodium (Enoxaparin 40 Mg/0.4 Ml Syringe) 40 mg SUBCUT BEDTIME PRINCE Last Admin: 03/12/21 00:40 Dose: Not Given Documented by: Furosemide (Furosemide 20 Mg/2 Ml Vial) 20 mg IVPUSH BIDDIURETIC PRINCE Last Admin: 03/10/21 06:19 Dose: 20 mg Documented by: Furosemide (Furosemide 20 Mg/2 Ml Vial) 20 mg IVPUSH BID PRINCE Stop: 03/11/21 09:01 Last Admin: 03/11/21 09:28 Dose: 20 mg Documented by: Guaifenesin/Phenylephrine HCl (Guaifenesin/Dextromethorphan 100-10 Mg/5 Ml Soln 5 Ml Cup) 5 ml PO Q6H PRN PRN Reason: Cough Last Admin: 03/11/21 05:13 Dose: 5 ml Documented by: Heparin Sodium (Porcine) (Heparin Sodium 5,000 Units/Ml Vial) 5,000 units SUBCUT Q8H PRINCE Last Admin: 03/09/21 11:38 Dose: 5,000 units Documented by: Sodium Chloride (Normal Saline) 1,000 mls @ 999 mls/hr IV ONETIME ONE Stop: 03/06/21 20:58 Last Admin: 03/06/21 19:50 Dose: 999 mls/hr Documented by: Sodium Chloride (Normal Saline) 1,000 mls @ 999 mls/hr IV ONETIME ONE Stop: 03/06/21 20:58 Last Admin: 03/06/21 19:57 Dose: 999 mls/hr Documented by: Insulin Human Regular 100 unit (/ Sodium Chloride) 100 mls @ 4.99 mls/hr IV TITRATE PRINCE; Protocol Last Titration: 03/11/21 08:37 Dose: Infused Documented by: Sodium Chloride (Normal Saline) Confirm Administered Dose 100 mls @ as directed .ROUTE .STK-MED ONE Stop: 03/06/21 21:04 Last Admin: 03/06/21 22:27 Dose: Not Given Documented by: Sodium Chloride (Normal Saline) 1,000 mls @ 300 mls/hr IV ASDIRECTED PRINCE Last Admin: 03/06/21 20:35 Dose: 300 mls/hr Documented by: Sodium Chloride (Normal Saline) 1,000 mls @ 999 mls/hr IV ASDIRECTED PRINCE Last Admin: 03/06/21 20:35 Dose: 999 mls/hr Documented by: Sodium Chloride (Sodium Chloride 0.45%) 1,000 mls @ 300 mls/hr IV ASDIRECTED PRINCE Last Admin: 03/07/21 02:59 Dose: 300 mls/hr Documented by: Sodium Bicarbonate 100 meq/Potassium Chloride 20 meq/Sterile Water 510 mls @ 255 mls/hr IV ONETIME ONE Stop: 03/07/21 05:29 Last Admin: 03/07/21 04:22 Dose: 255 mls/hr Documented by: Sodium Bicarbonate 100 meq/Potassium Chloride 20 meq/Sterile Water 510 mls @ 255 mls/hr IV ONETIME ONE Stop: 03/07/21 07:29 Potassium Chloride/Sodium Chloride (1/2 Ns With 20 Meq Kcl) 1,000 mls @ 100 mls/hr IV ASDIRECTED PRINCE Last Admin: 03/07/21 06:15 Dose: 100 mls/hr Documented by: Norepinephrine Bitartrate 4 mg (/ Dextrose/Water) 250 mls @ 7.5 mls/hr IV ASDIRECTED PRN; Protocol PRN Reason: To maintain a MAP of 65 Potassium Chloride/Dextrose/Sod Cl (D5 1/2 Ns W/ 20 Meq/L Kcl) 1,000 mls @ 100 mls/hr IV ASDIRECTED PRINCE Last Infusion: 03/09/21 16:30 Dose: 65 mls/hr Documented by: Promethazine HCl 12.5 mg/ (Sodium Chloride) 50.5 mls @ 100 mls/hr IV Q6H PRN PRN Reason: Nausea/Vomiting Pantoprazole Sodium 40 mg/ (Sodium Chloride) 100 mls @ 200 mls/hr IV DAILY PRINCE Potassium Chloride/Dextrose/Sod Cl (D5 1/2 Ns W/ 20 Meq/L Kcl) 1,000 mls @ 65 mls/hr IV ASDIRECTED PRINCE Last Admin: 03/11/21 06:07 Dose: 65 mls/hr Documented by: Sodium Chloride (Normal Saline) Confirm Administered Dose 100 mls @ as directed .ROUTE .STK-MED ONE Stop: 03/10/21 19:09 Last Admin: 03/10/21 19:19 Dose: Not Given Documented by: Insulin Human Lispro (Insulin Lispro 100 Unit/Ml 10 Ml Vial) 0 unit SUBCUT QIDACANDBED [facility]; Protocol Last Admin: 03/11/21 12:30 Dose: Not Given Documented by: Insulin Human Lispro (Insulin Lispro 100 Unit/Ml 10 Ml Vial) 20 unit SUBCUT ONETIME ONE Stop: 03/11/21 12:29 Last Admin: 03/11/21 12:36 Dose: 20 units Documented by: Insulin Human Lispro (Insulin Lispro 100 Unit/Ml 10 Ml Vial) 0 unit SUBCUT TIDMEALS [facility] Last Admin: 03/12/21 11:30 Dose: 10 units Documented by: Insulin Human Lispro (Insulin Lispro 100 Unit/Ml 10 Ml Vial) 0 unit SUBCUT Q4H [facility]; Protocol Stop: 03/12/21 04:01 Last Admin: 03/12/21 04:58 Dose: 8 units Documented by: Insulin Human Regular (Insulin Regular, Human 100 Units/Ml 3 Ml Vial) Confirm Administered Dose 300 unit .ROUTE .STK-MED ONE Stop: 03/06/21 21:04 Last Admin: 03/06/21 22:27 Dose: Not Given Documented by: Iopamidol (Iopamidol 755 Mg/Ml 100 Ml Bottle) 100 ml IVPUSH ONETIME ONE Stop: 03/09/21 14:02 Last Admin: 03/09/21 14:40 Dose: 100 ml Documented by: Metoprolol Tartrate (Metoprolol Tartrate 25 Mg Tab) 12.5 mg PO Q12H [facility] Last Admin: 03/12/21 04:59 Dose: 12.5 mg Documented by: Morphine Sulfate (Morphine 2 Mg/Ml Syringe) 2 mg IVPUSH Q4H PRN PRN Reason: Pain (Severe 4-10) Stop: 03/08/21 04:19 Last Admin: 03/07/21 10:17 Dose: 2 mg Documented by: Naloxone HCl (Naloxone 2 Mg/2 Ml Syringe) Confirm Administered Dose 2 mg .ROUTE .STK-MED ONE Stop: 03/06/21 19:53 Last Admin: 03/06/21 22:27 Dose: Not Given Documented by: Naloxone HCl (Naloxone 2 Mg/2 Ml Syringe) 2 mg IVPUSH ONETIME ONE Stop: 03/06/21 19:51 Last Admin: 03/06/21 19:50 Dose: 2 mg Documented by: Naloxone HCl (Naloxone 2 Mg/2 Ml Syringe) 2 mg IVPUSH ONETIME ONE Stop: 03/06/21 19:54 Last Admin: 03/06/21 19:53 Dose: 2 mg Documented by: Naloxone HCl (Naloxone 2 Mg/2 Ml Syringe) Confirm Administered Dose 2 mg .ROUTE .STK-MED ONE Stop: 03/06/21 19:51 Last Admin: 03/07/21 19:10 Dose: Not Given Documented by: Ondansetron HCl (Ondansetron 4 Mg/2 Ml Sdv) 4 mg IV Q6H PRN PRN Reason: Nausea/Vomiting Pantoprazole Sodium (Pantoprazole 40 Mg Vial) 40 mg IVPUSH DAILY [facility] Last Admin: 03/11/21 09:29 Dose: 40 mg Documented by: Pantoprazole Sodium (Pantoprazole 40 Mg Tab.Cr) 40 mg PO DAILY [facility] Last Admin: 03/12/21 08:58 Dose: 40 mg Documented by:
[2021-03-12] MEDS: Azithromycin 250 MG Tab PO SCH (08:58)
[2021-03-12] MEDS: Aspirin 81 MG Tab.EC PO SCH (08:59)
[2021-03-12] MEDS ORDERED: Pantoprazole 40 MG Tab.CR PO SCH (09:00)
[2021-03-12 10:39] VITALS: BP 121/79; PULSE 75
== END 2021-03-12 12:40 | disposition home or self-care (01) | DRG 637 ==
LOC: JD.ED 19:46 → JD.ICU 03-07 03:50
PROVIDERS: ADMIT Internal Medicine; ATTEND Internal Medicine
DX: E10.65 Type 1 diabetes mellitus with hyperglycemia (principal); E10.10 Type 1 diabetes mellitus with ketoacidosis without coma; J96.01 Acute respiratory failure with hypoxia; Z79.4 Long term (current) use of insulin; N17.9 Acute kidney failure, unspecified; F14.10 Cocaine abuse, uncomplicated; R79.89 Other specified abnormal findings of blood chemistry; I95.9 Hypotension, unspecified; R74.01 Elevation of levels of liver transaminase levels; J40 Bronchitis, not specified as acute or chronic; E10.21 Type 1 diabetes mellitus with diabetic nephropathy; H54.7 Unspecified visual loss; E86.0 Dehydration; I10 Essential (primary) hypertension; R32 Unspecified urinary incontinence; F32.9 Major depressive disorder, single episode, unspecified; J30.9 Allergic rhinitis, unspecified; Z20.822 Contact with and (suspected) exposure to COVID-19; Z91.19 Patient's noncompliance with other medical treatment and regimen; Z87.891 Personal history of nicotine dependence; Z86.16 Personal history of COVID-19
CPT/HCPCS: 36415; 36600; 51702; 70450; 70450-26; 71045; 71045-26; 71275; 71275-26; 80048; 80053; 80074; 80143; 80179; 80306; 80307; 81003; 82009; 82693; 82803; 82947; 83605; 83735; 83880; 83930; 84100; 84484; 85025; 85379; 87040; 93005; 93010; 93306; 93970; 93970-26; 94640; 96374; 99223; 99233; 99239; 99285; 99285-25; A4217; A9270-GY; C9113; J1644; J1650; J1815-GY; J1940; J2270; J2310; J3480; J7030; J7620-GY; Q9967; U0002

== ENCOUNTER 2021-05-07 00:36 | Inpatient (IN) | payer MEDICAID ==
[2021-05-07] MEDS ORDERED: Insulin Regular, Human 100 Units/ML 3 ML Vial IV STA ×4 (01:50→08:59)
[2021-05-07] MEDS ORDERED: Sodium Chloride 0.9% 1,000 ML IV ONE (01:50)
--- NOTE | 2021-05-07 01:55 | EDM.PDOC ---
ED HPI GENERAL MEDICAL PROBLEM - General Chief Complaint: Respiratory Problem Stated Complaint: TROUBLE BREATHING/COUGH/SOB Time Seen by Provider: 05/07/21 01:37 Source of Information: Reports: Patient History Limitations: Reports: No Limitations - History of Present Illness INITIAL COMMENTS - FREE TEXT/NARRATIVE: Mr. Berg is a very pleasant 26-year-old gentleman with a past medical history significant for type 1 diabetes, who now presents the ED stating that he has had a nonproductive cough with dyspnea, right-sided chest pain, and watery diarrhea since , 05/02/2021. He has felt hot and cold, but has not had a fever. No nausea or vomiting. He did not take any [id number] or home remedies to address his symptoms. He states that he last checked his blood glucose on 05/05/2021, finding it to be 100-something. He states that he has not checked it since, because he has been sleeping. Here in the ED this morning, the patient is found to be tachycardic at 115 bpm with tachypnea of 21 rpm. He is afebrile, saturating 100% on room air. He looks ill, but is in no acute distress. Prior to , the patient denies having a recent fever, chills, sore throat, ear pain, nasal or sinus congestion, cough, dyspnea, chest pain, palpitations, nausea, vomiting, constipation, diarrhea, abdominal pain, urinary symptoms, recent weight gain or weight loss, recent bloody bowel movements or black bowel movements, recent joint aches, headaches, or rashes. The patient's PCP is Faina Frost NP, in [place]. He has not received a COVID vaccination. Right Chest Pain Score (Numeric/FACES): 4 - Related Data Allergies Allergy/AdvReac Type Severity Reaction Status Date / Time No Known Allergies Allergy Verified 05/07/21 01:11 Home Meds: Home Meds Azithromycin [Zithromax] 250 mg PO DAILY #1 tablet 03/12/21 [Rx] Insulin Aspart [NovoLOG] 0 unit SQ ASDIRECTED #5 pen 03/12/21 [Rx] Insulin Glarg,Human.Rec.Analog [Lantus] 20 unit SUBCUT DAILY #5 ml 03/12/21 [Rx] Past Medical History HEENT History: Reports: Allergic Rhinitis, Impaired Vision Musculoskeletal History: Reports: Fracture (right 5th metacarpal) Endocrine/Metabolic History: Reports: Diabetes, Type I - Infectious Disease History Infectious Disease History: Reports: Novel Coronavirus - Past Surgical History Male Surgical History: Reports: Circumcision Social & Family History - Tobacco Use Tobacco Use Status *Q: Former Tobacco User Years of Tobacco use: 2 Packs/Tins Daily: 0.2 Month/Year Tobacco Last Used: Quit 2015 Tobacco Use Comment: Started smoking 2013 Second Hand Smoke Exposure: No - Caffeine Use Caffeine Use: Reports: Soda Other Caffeine Use: 1-2 cups - Alcohol Use Alcohol Use History: No - Recreational Drug Use Recreational Drug Use: Yes Drug Use in Last 12 Months: Yes Recreational Drug Type: Reports: Cocaine (last snorted Oct 2020), Marijuana/Hashish (last smoked 2019) - Living Situation & Occupation Living situation: Reports: Single, Other (with friends) Occupation: Unemployed ED ROS GENERAL - Review of Systems Review Of Systems: Comprehensive ROS is negative, except as noted in HPI. ED EXAM, GENERAL - Physical Exam Exam: See Below Exam Limited By: No Limitations General Appearance: Alert, WD/WN, Mild Distress (Looks ill) Eye Exam: Bilateral Eye: EOMI, Normal Inspection Ears: Normal External Exam, Hearing Grossly Normal Nose: Normal Inspection Throat/Mouth: Normal Inspection, Normal Lips, Normal Voice, No Airway Compromise Head: Atraumatic, Normocephalic Neck: Normal Inspection, Full Range of Motion. No: Lymphadenopathy (L), Lymphadenopathy (R) Respiratory/Chest: No Respiratory Distress, Lungs Clear, Normal Breath Sounds, No Accessory Muscle Use, Chest Non-Tender (including the right chest). No: Decreased Breath Sounds, Crackles, Rhonchi, Wheezing, Stridor, Prolonged Expiration Cardiovascular: Normal Peripheral Pulses, No Edema, No Gallop, No JVD, No Murmur, No Rub, Tachycardia (regular) Peripheral Pulses: 3+: Radial (L), Radial (R) GI/Abdominal: Normal Bowel Sounds, Soft, Non-Tender, No Organomegaly, No Distention, No Abnormal Bruit, No Mass Back Exam: Normal Inspection, Full Range of Motion, NT Extremities: Normal Inspection, Normal Range of Motion, No Pedal Edema, Normal Capillary Refill Neurological: Alert, Oriented, Normal Cognition, No Motor/Sensory Deficits Psychiatric: Normal Affect Skin Exam: Warm, Dry, Intact, Normal Color, No Rash #1 Interpretation EKG Date: 05/07/21 Time: 01:25 Rhythm: Other (Sinus tachycardia) Rate (Beats/Min): 120 [place]ble: Normal P-Wave: Present QRS: Normal ST-T: Normal QT: Prolonged (QTc 472 ms) Comparison: No Change (03/06/2021) Course - Vital Signs Last Recorded V/S: Last Vital Signs Temp 36.8 C 05/07/21 08:15 Pulse 120 H 05/07/21 08:15 Resp 20 05/07/21 08:15 BP 131/86 05/07/21 08:15 Pulse Ox 98 05/07/21 08:15 - Orders/Labs/Meds Orders: Active Orders 24 hr Category Date Time Status Blood Glucose Check, Bedside [RC] ONETIME Care 05/07/21 01:10 Active EKG Documentation Completion [RC] STAT Care 05/07/21 01:11 Active Ang Chest [CT] Stat Exams 05/07/21 03:08 Taken CXR [Chest 2V] [CR] Stat Exams 05/07/21 01:11 Taken Lactated Ringers [Ringers, Lactated] 1,000 ml Med 05/07/21 07:00 Active IV ASDIRECTED Medication Orders Lactated Ringer's (Ringers, Lactated) 1,000 mls @ 500 mls/hr IV ASDIRECTED PRINCE Last Admin: 05/07/21 07:46 Dose: 500 mls/hr Documented by: TABBY Labs: Laboratory Tests 05/07/21 05/07/21 05/07/21 Range/Units 01:05 01:18 01:24 WBC 11.24 H (4.23-9.07) K/mm3 RBC 3.60 L (4.63-6.08) M/mm3 Hgb 11.2 L (13.7-17.5) gm/dl Hct 32.0 L (40.1-51.0) % MCV 88.9 (79.0-92.2) fl MCH 31.1 (25.7-32.2) pg MCHC 35.0 (32.2-35.5) g/dl RDW Std Deviation 41.8 (35.1-43.9) fL Plt Count 374 H D (163-337) K/mm3 MPV 8.1 L (9.4-12.3) fl Neut % (Auto) 65.5 (34.0-67.9) % Lymph % (Auto) 18.7 L (21.8-53.1) % Coal % (Auto) 12.4 H (5.3-12.2) % Eos % (Auto) 0.1 L (0.8-7.0) Baso % (Auto) 0.9 (0.1-1.2) % Neut # (Auto) 7.37 H (1.78-5.38) K/mm3 Lymph # (Auto) 2.10 (1.32-3.57) K/mm3 Coal # (Auto) 1.39 H (0.30-0.82) K/mm3 Eos # (Auto) 0.01 L (0.04-0.54) K/mm3 Baso # (Auto) 0.10 H (0.01-0.08) K/mm3 Manual Slide Review Abnormal smear D-Dimer, Quantitative (0.19-0.50) mg/L Puncture Site ABG pH (7.35-7.45) ABG pCO2 (35.0-45.0) mmHg ABG pO2 (80.0-100.0) mmHg ABG HCO3 (22.0-26.0) meq/L ABG O2 Saturation (96.0-97.0) % ABG Base Excess (-2-2.0) A-a Gradient mmHg O2 Delivery Device Oxygen Flow Rate FiO2 (21.00-100.00) % Sodium (136-145) mEq/L Potassium (3.5-5.1) mEq/L Chloride (98-107) mEq/L Carbon Dioxide (21-32) mEq/L Anion Gap (5-15) BUN (7-18) mg/dL Creatinine (0.7-1.3) mg/dL Est Cr Clr Drug Dosing mL/min Estimated GFR (MDRD) (>60) mL/min BUN/Creatinine Ratio (14-18) Glucose (70-99) mg/dL POC Glucose 257 H (70-99) mg/dL Lactic Acid (0.4-2.0) mmol/L Calcium (8.5-10.1) mg/dL Total Bilirubin (0.2-1.0) mg/dL AST (15-37) U/L ALT (16-63) U/L Alkaline Phosphatase (46-116) U/L Troponin I (0.00-0.056) ng/mL Total Protein (6.4-8.2) g/dl Albumin (3.4-5.0) g/dl Globulin gm/dL Albumin/Globulin Ratio (1-2) Urine Color (Yellow) Urine Appearance (Clear) Urine pH (5.0-8.0) Ur Specific Gantt (1.005-1.030) Urine Protein (Negative) Urine Glucose (UA) (Negative) Urine Ketones (Negative) Urine Occult Blood (Negative) Urine Nitrite (Negative) Urine Bilirubin (Negative) Urine Urobilinogen (0.2-1.0) Ur Leukocyte Esterase (Negative) U Hyaline Cast (Auto) (0-5) /lpf Urine RBC (0-5) /hpf Urine WBC (0-5) /hpf Ur Epithelial Cells (0-5) /hpf Amorphous Sediment (NOT SEEN) /hpf Urine Bacteria (FEW) /hpf Fine Granular Casts (0-5) /lpf Urine Mucus (FEW) /hpf Urine Opiates Screen (WDSJCJ=642) Ur Buprenorphine Scrn (CUTOFF=10) Ur Oxycodone Screen (WHY2AA=637) Urine Methadone Screen (XSB1QY=259) Ur Propoxyphene Screen (QMIEDM=876) Ur Barbiturates Screen (NVRZGV=270) Ur Tricyclics Screen (JYDORW=479) Ur Phencyclidine Scrn (CUTOFF=25) Ur Amphetamine Screen (MNMQIB=044) U Methamphetamines Scrn (UDYHFR=737) U Benzodiazepines Scrn (RDGTUC=292) U Cocaine Metab Screen (VHZUDM=443) U Marijuana (THC) Screen (CUTOFF=50) Ketones (0.0-0.3) mM SARS-CoV-2 RNA (MACRINA) Negative (NEGATIVE) 05/07/21 05/07/21 05/07/21 Range/Units 01:24 01:24 01:24 WBC (4.23-9.07) K/mm3 RBC (4.63-6.08) M/mm3 Hgb (13.7-17.5) gm/dl Hct (40.1-51.0) % MCV (79.0-92.2) fl MCH (25.7-32.2) pg MCHC (32.2-35.5) g/dl RDW Std Deviation (35.1-43.9) fL Plt Count (163-337) K/mm3 MPV (9.4-12.3) fl Neut % (Auto) (34.0-67.9) % Lymph % (Auto) (21.8-53.1) % Coal % (Auto) (5.3-12.2) % Eos % (Auto) (0.8-7.0) Baso % (Auto) (0.1-1.2) % Neut # (Auto) (1.78-5.38) K/mm3 Lymph # (Auto) (1.32-3.57) K/mm3 Coal # (Auto) (0.30-0.82) K/mm3 Eos # (Auto) (0.04-0.54) K/mm3 Baso # (Auto) (0.01-0.08) K/mm3 Manual Slide Review D-Dimer, Quantitative 1.76 H (0.19-0.50) mg/L Puncture Site ABG pH (7.35-7.45) ABG pCO2 (35.0-45.0) mmHg ABG pO2 (80.0-100.0) mmHg ABG HCO3 (22.0-26.0) meq/L ABG O2 Saturation (96.0-97.0) % ABG Base Excess (-2-2.0) A-a Gradient mmHg O2 Delivery Device Oxygen Flow Rate FiO2 (21.00-100.00) % Sodium 140 (136-145) mEq/L Potassium 4.0 (3.5-5.1) mEq/L Chloride 101 (98-107) mEq/L Carbon Dioxide 8 L* D (21-32) mEq/L Anion Gap 35.0 H (5-15) BUN 22 H (7-18) mg/dL Creatinine 1.8 H (0.7-1.3) mg/dL Est Cr Clr Drug Dosing 48.72 mL/min Estimated GFR (MDRD) 47 (>60) mL/min BUN/Creatinine Ratio 12.2 L (14-18) Glucose 206 H (70-99) mg/dL POC Glucose (70-99) mg/dL Lactic Acid (0.4-2.0) mmol/L Calcium 9.5 (8.5-10.1) mg/dL Total Bilirubin 0.6 (0.2-1.0) mg/dL AST 31 (15-37) U/L ALT 72 H (16-63) U/L Alkaline Phosphatase 263 H (46-116) U/L Troponin I < 0.017 (0.00-0.056) ng/mL Total Protein 8.8 H (6.4-8.2) g/dl Albumin 3.9 (3.4-5.0) g/dl Globulin 4.9 gm/dL Albumin/Globulin Ratio 0.8 L (1-2) Urine Color (Yellow) Urine Appearance (Clear) Urine pH (5.0-8.0) Ur Specific Gantt (1.005-1.030) Urine Protein (Negative) Urine Glucose (UA) (Negative) Urine Ketones (Negative) Urine Occult Blood (Negative) Urine Nitrite (Negative) Urine Bilirubin (Negative) Urine Urobilinogen (0.2-1.0) Ur Leukocyte Esterase (Negative) U Hyaline Cast (Auto) (0-5) /lpf Urine RBC (0-5) /hpf Urine WBC (0-5) /hpf Ur Epithelial Cells (0-5) /hpf Amorphous Sediment (NOT SEEN) /hpf Urine Bacteria (FEW) /hpf Fine Granular Casts (0-5) /lpf Urine Mucus (FEW) /hpf Urine Opiates Screen (KXUAPL=570) Ur Buprenorphine Scrn (CUTOFF=10) Ur Oxycodone Screen (WBZ6TG=261) Urine Methadone Screen (FJU1VC=592) Ur Propoxyphene Screen (FFXQXB=435) Ur Barbiturates Screen (CCMHUR=199) Ur Tricyclics Screen (IDOEPD=919) Ur Phencyclidine Scrn (CUTOFF=25) Ur Amphetamine Screen (PJBOHK=005) U Methamphetamines Scrn (GTAYSB=706) U Benzodiazepines Scrn (ROYRDW=170) U Cocaine Metab Screen (KUNSZD=695) U Marijuana (THC) Screen (CUTOFF=50) Ketones 8.92 (0.0-0.3) mM SARS-CoV-2 RNA (MACRINA) (NEGATIVE) 05/07/21 05/07/21 05/07/21 Range/Units 03:02 04:05 04:07 WBC (4.23-9.07) K/mm3 RBC (4.63-6.08) M/mm3 Hgb (13.7-17.5) gm/dl Hct (40.1-51.0) % MCV (79.0-92.2) fl MCH (25.7-32.2) pg MCHC (32.2-35.5) g/dl RDW Std Deviation (35.1-43.9) fL Plt Count (163-337) K/mm3 MPV (9.4-12.3) fl Neut % (Auto) (34.0-67.9) % Lymph % (Auto) (21.8-53.1) % Coal % (Auto) (5.3-12.2) % Eos % (Auto) (0.8-7.0) Baso % (Auto) (0.1-1.2) % Neut # (Auto) (1.78-5.38) K/mm3 Lymph # (Auto) (1.32-3.57) K/mm3 Coal # (Auto) (0.30-0.82) K/mm3 Eos # (Auto) (0.04-0.54) K/mm3 Baso # (Auto) (0.01-0.08) K/mm3 Manual Slide Review D-Dimer, Quantitative (0.19-0.50) mg/L Puncture Site Ll ABG pH 7.27 L (7.35-7.45) ABG pCO2 24.5 L (35.0-45.0) mmHg ABG pO2 70.0 L (80.0-100.0) mmHg ABG HCO3 10.9 L (22.0-26.0) meq/L ABG O2 Saturation 94.5 L (96.0-97.0) % ABG Base Excess -14.4 L (-2-2.0) A-a Gradient 49 mmHg O2 Delivery Device Room air Oxygen Flow Rate 0.0 FiO2 21.00 (21.00-100.00) % Sodium (136-145) mEq/L Potassium (3.5-5.1) mEq/L Chloride (98-107) mEq/L Carbon Dioxide (21-32) mEq/L Anion Gap (5-15) BUN (7-18) mg/dL Creatinine (0.7-1.3) mg/dL Est Cr Clr Drug Dosing mL/min Estimated GFR (MDRD) (>60) mL/min BUN/Creatinine Ratio (14-18) Glucose (70-99) mg/dL POC Glucose 96 (70-99) mg/dL Lactic Acid 4.7 H* (0.4-2.0) mmol/L Calcium (8.5-10.1) mg/dL Total Bilirubin (0.2-1.0) mg/dL AST (15-37) U/L ALT (16-63) U/L Alkaline Phosphatase (46-116) U/L Troponin I (0.00-0.056) ng/mL Total Protein (6.4-8.2) g/dl Albumin (3.4-5.0) g/dl Globulin gm/dL Albumin/Globulin Ratio (1-2) Urine Color (Yellow) Urine Appearance (Clear) Urine pH (5.0-8.0) Ur Specific Gantt (1.005-1.030) Urine Protein (Negative) Urine Glucose (UA) (Negative) Urine Ketones (Negative) Urine Occult Blood (Negative) Urine Nitrite (Negative) Urine Bilirubin (Negative) Urine Urobilinogen (0.2-1.0) Ur Leukocyte Esterase (Negative) U Hyaline Cast (Auto) (0-5) /lpf Urine RBC (0-5) /hpf Urine WBC (0-5) /hpf Ur Epithelial Cells (0-5) /hpf Amorphous Sediment (NOT SEEN) /hpf Urine Bacteria (FEW) /hpf Fine Granular Casts (0-5) /lpf Urine Mucus (FEW) /hpf Urine Opiates Screen (CDVWVF=532) Ur Buprenorphine Scrn (CUTOFF=10) Ur Oxycodone Screen (QET1YV=460) Urine Methadone Screen (CHH8TV=739) Ur Propoxyphene Screen (WKISHG=204) Ur Barbiturates Screen (JTQBBP=444) Ur Tricyclics Screen (BQKQLI=464) Ur Phencyclidine Scrn (CUTOFF=25) Ur Amphetamine Screen (WKSDGP=727) U Methamphetamines Scrn (HTJQLO=484) U Benzodiazepines Scrn (KUHJOM=371) U Cocaine Metab Screen (WPGIHI=343) U Marijuana (THC) Screen (CUTOFF=50) Ketones (0.0-0.3) mM SARS-CoV-2 RNA (MACRINA) (NEGATIVE) 05/07/21 05/07/21 05/07/21 Range/Units 06:41 06:52 06:52 WBC (4.23-9.07) K/mm3 RBC (4.63-6.08) M/mm3 Hgb (13.7-17.5) gm/dl Hct (40.1-51.0) % MCV (79.0-92.2) fl MCH (25.7-32.2) pg MCHC (32.2-35.5) g/dl RDW Std Deviation (35.1-43.9) fL Plt Count (163-337) K/mm3 MPV (9.4-12.3) fl Neut % (Auto) (34.0-67.9) % Lymph % (Auto) (21.8-53.1) % Coal % (Auto) (5.3-12.2) % Eos % (Auto) (0.8-7.0) Baso % (Auto) (0.1-1.2) % Neut # (Auto) (1.78-5.38) K/mm3 Lymph # (Auto) (1.32-3.57) K/mm3 Coal # (Auto) (0.30-0.82) K/mm3 Eos # (Auto) (0.04-0.54) K/mm3 Baso # (Auto) (0.01-0.08) K/mm3 Manual Slide Review D-Dimer, Quantitative (0.19-0.50) mg/L Puncture Site ABG pH (7.35-7.45) ABG pCO2 (35.0-45.0) mmHg ABG pO2 (80.0-100.0) mmHg ABG HCO3 (22.0-26.0) meq/L ABG O2 Saturation (96.0-97.0) % ABG Base Excess (-2-2.0) A-a Gradient mmHg O2 Delivery Device Oxygen Flow Rate FiO2 (21.00-100.00) % Sodium (136-145) mEq/L Potassium (3.5-5.1) mEq/L Chloride (98-107) mEq/L Carbon Dioxide (21-32) mEq/L Anion Gap (5-15) BUN (7-18) mg/dL Creatinine (0.7-1.3) mg/dL Est Cr Clr Drug Dosing mL/min Estimated GFR (MDRD) (>60) mL/min BUN/Creatinine Ratio (14-18) Glucose (70-99) mg/dL POC Glucose 215 H (70-99) mg/dL Lactic Acid (0.4-2.0) mmol/L Calcium (8.5-10.1) mg/dL Total Bilirubin (0.2-1.0) mg/dL AST (15-37) U/L ALT (16-63) U/L Alkaline Phosphatase (46-116) U/L Troponin I (0.00-0.056) ng/mL Total Protein (6.4-8.2) g/dl Albumin (3.4-5.0) g/dl Globulin gm/dL Albumin/Globulin Ratio (1-2) Urine Color Yellow (Yellow) Urine Appearance Clear (Clear) Urine pH 6.0 (5.0-8.0) Ur Specific Gantt 1.015 (1.005-1.030) Urine Protein 2+ H (Negative) Urine Glucose (UA) 2+ H (Negative) Urine Ketones 3+ H (Negative) Urine Occult Blood Trace-intact H (Negative) Urine Nitrite Negative (Negative) Urine Bilirubin 3+ H (Negative) Urine Urobilinogen 0.2 (0.2-1.0) Ur Leukocyte Esterase Negative (Negative) U Hyaline Cast (Auto) 0-5 (0-5) /lpf Urine RBC 5-10 H (0-5) /hpf Urine WBC 0-5 (0-5) /hpf Ur Epithelial Cells Not seen (0-5) /hpf Amorphous Sediment Few H (NOT SEEN) /hpf Urine Bacteria Few (FEW) /hpf Fine Granular Casts 0-5 (0-5) /lpf Urine Mucus Few (FEW) /hpf Urine Opiates Screen Negative (BHLUWP=970) Ur Buprenorphine Scrn Negative (CUTOFF=10) Ur Oxycodone Screen Negative (PCK4AN=916) Urine Methadone Screen Negative (ZLI6EL=859) Ur Propoxyphene Screen Negative (VLCBVE=981) Ur Barbiturates Screen Negative (YBBDGV=949) Ur Tricyclics Screen Negative (AFANMZ=913) Ur Phencyclidine Scrn Negative (CUTOFF=25) Ur Amphetamine Screen Negative (SJBQTK=055) U Methamphetamines Scrn Negative (PBMAPA=057) U Benzodiazepines Scrn Negative (BAQODO=905) U Cocaine Metab Screen Negative (ZIOMES=142) U Marijuana (THC) Screen Negative (CUTOFF=50) Ketones (0.0-0.3) mM SARS-CoV-2 RNA (MACRINA) (NEGATIVE) 05/07/21 05/07/21 05/07/21 Range/Units 07:23 07:23 07:23 WBC (4.23-9.07) K/mm3 RBC (4.63-6.08) M/mm3 Hgb (13.7-17.5) gm/dl Hct (40.1-51.0) % MCV (79.0-92.2) fl MCH (25.7-32.2) pg MCHC (32.2-35.5) g/dl RDW Std Deviation (35.1-43.9) fL Plt Count (163-337) K/mm3 MPV (9.4-12.3) fl Neut % (Auto) (34.0-67.9) % Lymph % (Auto) (21.8-53.1) % Coal % (Auto) (5.3-12.2) % Eos % (Auto) (0.8-7.0) Baso % (Auto) (0.1-1.2) % Neut # (Auto) (1.78-5.38) K/mm3 Lymph # (Auto) (1.32-3.57) K/mm3 Coal # (Auto) (0.30-0.82) K/mm3 Eos # (Auto) (0.04-0.54) K/mm3 Baso # (Auto) (0.01-0.08) K/mm3 Manual Slide Review D-Dimer, Quantitative (0.19-0.50) mg/L Puncture Site ABG pH (7.35-7.45) ABG pCO2 (35.0-45.0) mmHg ABG pO2 (80.0-100.0) mmHg ABG HCO3 (22.0-26.0) meq/L ABG O2 Saturation (96.0-97.0) % ABG Base Excess (-2-2.0) A-a Gradient mmHg O2 Delivery Device Oxygen Flow Rate FiO2 (21.00-100.00) % Sodium 138 (136-145) mEq/L Potassium 3.9 (3.5-5.1) mEq/L Chloride 103 (98-107) mEq/L Carbon Dioxide 15 L (21-32) mEq/L Anion Gap 23.9 H (5-15) BUN 17 (7-18) mg/dL Creatinine 1.2 (0.7-1.3) mg/dL Est Cr Clr Drug Dosing 73.08 mL/min Estimated GFR (MDRD) > 60 (>60) mL/min BUN/Creatinine Ratio 14.2 (14-18) Glucose 286 H (70-99) mg/dL POC Glucose (70-99) mg/dL Lactic Acid 1.0 (0.4-2.0) mmol/L Calcium 7.7 L D (8.5-10.1) mg/dL Total Bilirubin (0.2-1.0) mg/dL AST (15-37) U/L ALT (16-63) U/L Alkaline Phosphatase (46-116) U/L Troponin I (0.00-0.056) ng/mL Total Protein (6.4-8.2) g/dl Albumin (3.4-5.0) g/dl Globulin gm/dL Albumin/Globulin Ratio (1-2) Urine Color (Yellow) Urine Appearance (Clear) Urine pH (5.0-8.0) Ur Specific Gantt (1.005-1.030) Urine Protein (Negative) Urine Glucose (UA) (Negative) Urine Ketones (Negative) Urine Occult Blood (Negative) Urine Nitrite (Negative) Urine Bilirubin (Negative) Urine Urobilinogen (0.2-1.0) Ur Leukocyte Esterase (Negative) U Hyaline Cast (Auto) (0-5) /lpf Urine RBC (0-5) /hpf Urine WBC (0-5) /hpf Ur Epithelial Cells (0-5) /hpf Amorphous Sediment (NOT SEEN) /hpf Urine Bacteria (FEW) /hpf Fine Granular Casts (0-5) /lpf Urine Mucus (FEW) /hpf Urine Opiates Screen (RABSZI=282) Ur Buprenorphine Scrn (CUTOFF=10) Ur Oxycodone Screen (FGI0ED=197) Urine Methadone Screen (XGP2YS=147) Ur Propoxyphene Screen (EWVTKD=514) Ur Barbiturates Screen (EICXBX=955) Ur Tricyclics Screen (MRRESR=800) Ur Phencyclidine Scrn (CUTOFF=25) Ur Amphetamine Screen (JGIGIM=450) U Methamphetamines Scrn (BVAQHU=056) U Benzodiazepines Scrn (BHDFGI=230) U Cocaine Metab Screen (XZHRUQ=957) U Marijuana (THC) Screen (CUTOFF=50) Ketones 6.94 (0.0-0.3) mM SARS-CoV-2 RNA (MACRINA) (NEGATIVE) 05/07/21 Range/Units 08:14 WBC (4.23-9.07) K/mm3 RBC (4.63-6.08) M/mm3 Hgb (13.7-17.5) gm/dl Hct (40.1-51.0) % MCV (79.0-92.2) fl MCH (25.7-32.2) pg MCHC (32.2-35.5) g/dl RDW Std Deviation (35.1-43.9) fL Plt Count (163-337) K/mm3 MPV (9.4-12.3) fl Neut % (Auto) (34.0-67.9) % Lymph % (Auto) (21.8-53.1) % Coal % (Auto) (5.3-12.2) % Eos % (Auto) (0.8-7.0) Baso % (Auto) (0.1-1.2) % Neut # (Auto) (1.78-5.38) K/mm3 Lymph # (Auto) (1.32-3.57) K/mm3 Coal # (Auto) (0.30-0.82) K/mm3 Eos # (Auto) (0.04-0.54) K/mm3 Baso # (Auto) (0.01-0.08) K/mm3 Manual Slide Review D-Dimer, Quantitative (0.19-0.50) mg/L Puncture Site ABG pH (7.35-7.45) ABG pCO2 (35.0-45.0) mmHg ABG pO2 (80.0-100.0) mmHg ABG HCO3 (22.0-26.0) meq/L ABG O2 Saturation (96.0-97.0) % ABG Base Excess (-2-2.0) A-a Gradient mmHg O2 Delivery Device Oxygen Flow Rate FiO2 (21.00-100.00) % Sodium (136-145) mEq/L Potassium (3.5-5.1) mEq/L Chloride (98-107) mEq/L Carbon Dioxide (21-32) mEq/L Anion Gap (5-15) BUN (7-18) mg/dL Creatinine (0.7-1.3) mg/dL Est Cr Clr Drug Dosing mL/min Estimated GFR (MDRD) (>60) mL/min BUN/Creatinine Ratio (14-18) Glucose (70-99) mg/dL POC Glucose 235 H (70-99) mg/dL Lactic Acid (0.4-2.0) mmol/L Calcium (8.5-10.1) mg/dL Total Bilirubin (0.2-1.0) mg/dL AST (15-37) U/L ALT (16-63) U/L Alkaline Phosphatase (46-116) U/L Troponin I (0.00-0.056) ng/mL Total Protein (6.4-8.2) g/dl Albumin (3.4-5.0) g/dl Globulin gm/dL Albumin/Globulin Ratio (1-2) Urine Color (Yellow) Urine Appearance (Clear) Urine pH (5.0-8.0) Ur Specific Gantt (1.005-1.030) Urine Protein (Negative) Urine Glucose (UA) (Negative) Urine Ketones (Negative) Urine Occult Blood (Negative) Urine Nitrite (Negative) Urine Bilirubin (Negative) Urine Urobilinogen (0.2-1.0) Ur Leukocyte Esterase (Negative) U Hyaline Cast (Auto) (0-5) /lpf Urine RBC (0-5) /hpf Urine WBC (0-5) /hpf Ur Epithelial Cells (0-5) /hpf Amorphous Sediment (NOT SEEN) /hpf Urine Bacteria (FEW) /hpf Fine Granular Casts (0-5) /lpf Urine Mucus (FEW) /hpf Urine Opiates Screen (JARIRR=511) Ur Buprenorphine Scrn (CUTOFF=10) Ur Oxycodone Screen (CET7RX=554) Urine Methadone Screen (UDO7OY=285) Ur Propoxyphene Screen (NUIINR=925) Ur Barbiturates Screen (RDVVIX=506) Ur Tricyclics Screen (XMNEJJ=989) Ur Phencyclidine Scrn (CUTOFF=25) Ur Amphetamine Screen (FPSSAN=332) U Methamphetamines Scrn (JWPPDR=896) U Benzodiazepines Scrn (KJJIZD=195) U Cocaine Metab Screen (FOMDVE=361) U Marijuana (THC) Screen (CUTOFF=50) Ketones (0.0-0.3) mM SARS-CoV-2 RNA (MACRINA) (NEGATIVE) Meds: Medications Generic Name Dose Route Start Last Admin Trade Name Freq PRN Reason Stop Dose Admin Lactated Ringer's 1,000 mls @ 500 mls/hr 05/07/21 07:00 05/07/21 07:46 Ringers, Lactated IV 500 mls/hr ASDIRECTED PRINCE Administration Discontinued Medications Generic Name Dose Route Start Last Admin Trade Name Freq PRN Reason Stop Dose Admin Sodium Chloride 1,000 mls @ 999 mls/hr 05/07/21 01:50 05/07/21 02:32 Normal Saline IV 05/07/21 02:50 999 mls/hr ONETIME ONE Administration Lactated Ringer's 1,000 mls @ 999 mls/hr 05/07/21 04:27 05/07/21 04:40 Ringers, Lactated IV 05/07/21 05:27 999 mls/hr .BOLUS ONE Administration Insulin Human Regular 2 unit 05/07/21 01:50 05/07/21 02:32 Insulin Regular, Human 100 Units/Ml 3 Ml Vial IV 05/07/21 01:51 2 unit ONETIME STA Administration Insulin Human Regular 1 unit 05/07/21 06:49 05/07/21 07:44 Insulin Regular, Human 100 Units/Ml 3 Ml Vial IV 05/07/21 06:50 1 unit ONETIME STA Administration Insulin Human Regular 2 unit 05/07/21 08:18 05/07/21 08:30 Insulin Regular, Human 100 Units/Ml 3 Ml Vial IV 05/07/21 08:19 2 unit ONETIME STA Administration - Re-Assessments/Exams Free Text/Narrative Re-Assessment/Exam: 05/07/21 01:51 As above, the patient has had a nonproductive cough with dyspnea, right-sided chest pain, and some watery diarrhea since . He has been feeling hot and cold since morning. He last checked his blood glucose on Thursday, finding it to be 100-something. Here in the ED, he is tachycardic and tachypneic, but afebrile and saturating 100% on room air. He looks ill, but his physical exam is grossly unremarkable. An Accu-Chek at triage was 257. A work- up, including numerous blood tests, a urinalysis, urine drug screen, swab for the SARS-CoV-2 virus, a chest x-ray, and an ECG were obtained at triage. To that I have ordered a bolus of IV fluid and 2 units of regular insulin. 05/07/21 02:09 The patient's CBC is remarkable for leukocytosis of 11.24, and an H/H mildly depressed at 11.2/32.0, with thrombocytosis of 374,000. His CMP is remarkable for an anion gap significantly elevated at 35, with a bicarbonate significant depressed at 8, and a BUN/Cr elevated at 22/1.8. His blood glucose is mildly elevated at 206, and his ALT is mildly elevated at 72, with an AST normal at 31. His alkaline phosphatase is modestly elevated at 263, with remainder of his CMP being unremarkable. His troponin is undetectably low. His D-dimer is elevated at 1.76. Results of his urinalysis, urine drug screen, swab for the SARS-CoV-2 virus, and chest x-ray are still pending. Reviewing prior labs, I see that the patient's BUN/Cr were 19/1.0 on 03/12/2021. Based on the above, I have ordered serum ketones and an ABG. 05/07/21 03:09 The patient's serum ketones are significantly elevated at 8.92. His swab for the SARS-CoV-2 virus is negative. Based on the above, I have ordered a CT angiogram of the chest to evaluate for a PE. 05/07/21 03:38 Two-view chest radiograph appears to be grossly normal. The cardiac silhouette is within normal limits. No pulmonary vascular congestion. No pleural effusions. No focal infiltrate. No pneumothorax. Formal read per the Radiologist pending. The patient's ABG represents a primary elevated anion gap metabolic acidosis with appropriately compensated respiratory alkalosis and additional metabolic alkalosis. 05/07/21 05:24 The patient's lactic acid level is significantly elevated at 4.7. CT angiogram of the chest is read by [facility] as: 1. No evidence of pulmonary embolism. 2. Small area of airspace disease/infiltrate in the left lower lobe of the lung. A small amount of associated endobronchial debris or fluid is present in bronchi supplying this area which suggests presence of mucus. 3. Hepatomegaly. 05/07/21 06:50 The patient was allowed to eat earlier. His most recent Accu-Chek is 215. His second liter of IV fluid has finished infusing. I have ordered 1/3 L of IV fluid to be run at 500 mL/h, along with 1 unit of regular insulin. 05/07/21 07:51 The patient's urinalysis is remarkable for 3+ ketones and is otherwise unremarkable. His urine drug screen is completely negative. 05/07/21 08:13 The patient's repeat lactic acid level is 1.0. I will order a BMP and serum ketones level to see how his DKA is going. 05/07/21 08:18 The patient's Accu-Chek is 235. I have ordered 2 units of regular insulin. 05/07/21 08:56 The patient's BMP is remarkable for an anion gap elevated 23.9 with a bicarbonate depressed at 15, and blood glucose elevated to 286, with remainder of his BMP being unremarkable. His serum ketones are elevated at 6.94. Based on the above, the patient appears to be making progress with respect to his DKA, however, it is not yet resolved. I will order 3 units of insulin, and we will continue IV fluid, but we will need to consider admitting the patient. Unfortunately, no ICU beds are available at this facility. 05/07/21 09:[address] Miles at 09:00. He believes that he will have an ICU bed available this morning, and if so, he can take over the management of the patient here in the ED until that bed becomes available. He will call me back in about 10 minutes to let me know if the ICU bed will become available. 05/07/21 09:09 Notified by Dorene PEREZ that an Accu-Chek is only 208, therefore I canceled the [address] Miles is here in the ED. He accepted the patient for admission to the ICU, and he will manage the patient here in the ED until the ICU bed becomes available. He requested that we draw a VBG. Departure - Departure Time of Disposition: 09:11 Disposition: Admitted As Inpatient 68 Condition: Fair Clinical Impression: DKA (diabetic ketoacidosis), Acute renal insufficiency, Lactic acidosis, Hyperglycemia due to type 1 diabetes mellitus - Discharge Information *PRESCRIPTION DRUG MONITORING PROGRAM REVIEWED*: No *COPY OF PRESCRIPTION DRUG MONITORING REPORT IN PATIENT [place]: No Referrals: Faina Frost NP [Ordering Only Provider] - Forms: ED Department Discharge Sepsis Event Note (ED) - Evaluation Sepsis Screening Result: No Definite Risk - Focused Exam Vital Signs: Vital Signs Temp Pulse Resp BP Pulse Ox 05/07/21 08:15 36.8 C 120 H 20 131/86 98 05/07/21 06:44 132 H 16 97 05/07/21 01:08 36.3 C 115 H 21 H 130/77 100 - My Orders Last 24 Hours: My Active Orders 05/07/21 01:10 Blood Glucose Check, Bedside [RC] ONETIME 05/07/21 01:11 EKG Documentation Completion [RC] STAT CXR [Chest 2V] [CR] Stat 05/07/21 03:08 Ang Chest [CT] Stat 05/07/21 07:00 Lactated Ringers [Ringers, Lactated] 1,000 ml IV ASDIRECTED - Assessment/Plan Last 24 Hours: My Active Orders 05/07/21 01:10 Blood Glucose Check, Bedside [RC] ONETIME 05/07/21 01:11 EKG Documentation Completion [RC] STAT CXR [Chest 2V] [CR] Stat 05/07/21 03:08 Ang Chest [CT] Stat 05/07/21 07:00 Lactated Ringers [Ringers, Lactated] 1,000 ml IV ASDIRECTED
[2021-05-07] MEDS ORDERED: Lactated Ringers 1,000 ML IV ONE (04:27)
[2021-05-07] MEDS ORDERED: Lactated Ringers 1,000 ML IV SCH (07:00)
--- NOTE | 2021-05-07 09:30 | CR ---
Chest: PA and lateral views of the chest were obtained. Comparison: Prior chest x-ray of 03/09/[address] performed on the same day as current chest x-ray. Heart size and mediastinum are within normal limits. Lungs show slight density within the left lung base. Lungs otherwise are clear. Bony structures appear within normal limits for the patient's age. Impression: 1. Increased density within the left lung base. This correlates to probable pneumonia on subsequent chest CT. 2. Nothing acute is otherwise seen. Diagnostic code #3
[2021-05-07] MEDS ORDERED: Sodium Chloride 0.9% 10 ML Syringe FLUSH PRN (09:39)
[2021-05-07] MEDS ORDERED: Ondansetron 4 MG Tab.DIS PO PRN (09:39)
[2021-05-07] MEDS ORDERED: Ondansetron 4 MG/2 ML SDV IV PRN (09:39)
[2021-05-07] MEDS ORDERED: Acetaminophen 325 MG Tab PO PRN (09:39)
[2021-05-07] MEDS: Lactated Ringers 1,000 ML IV SCH ×2 (09:59→18:20)
--- NOTE | 2021-05-07 10:07 | CT ---
CT chest Technique: Multiple axial sections through the chest were obtained. Intravenous contrast was utilized. Study has been performed as a pulmonary angiogram protocol. Comparison: Prior chest CT study of 03/09/21 as well as chest x-ray performed earlier on the same day (3:12 AM). Findings: Pulmonary arteries are well opacified. No filling defects are seen to indicate pulmonary embolism. Thoracic aorta shows no aneurysm. No pericardial thickening is seen. Visualized upper abdominal structures show no acute abnormality. No axillary adenopathy is seen. Lung window settings were reviewed. Patchy increased density is noted within the left lung base. Lungs otherwise are clear. No pleural effusions or pneumothorax is seen. Bone window settings were reviewed. No acute osseous abnormality is appreciated. Impression: 1. Patchy increased density within the left lung base most likely representing an area of pneumonia. Please correlate that patient has correlating clinical symptoms. 2. No findings of pulmonary embolism. 3. Nothing acute is otherwise seen. Diagnostic code #3 I agree with preliminary report from [facility], finalized on 05/07/21, 5:33 AM CDT, code 1
--- NOTE | 2021-05-07 10:13 | PCM.HP.2 ---
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 RANDOM [CHEM] Q1H Lab 05/07/21 13:45 Ordered POTASSIUM,K [CHEM] Q1H Lab 05/07/21 09:38 Received POTASSIUM,K [CHEM] Q1H Lab 05/07/21 10:45 Ordered POTASSIUM,K [CHEM] Q1H Lab 05/07/21 11:45 Ordered POTASSIUM,K [CHEM] Q1H Lab 05/07/21 12:45 Ordered POTASSIUM,K [CHEM] Q1H Lab 05/07/21 13:45 Ordered Acetaminophen [TylenoL] Med 05/07/21 09:39 Active 650 mg PO Q4H PRN Heparin Sodium Med 05/07/21 09:45 Active 5,000 units SUBCUT Q8H Insulin Regular, Human [HumuLIN R] 100 unit Med 05/07/21 09:15 Active Sodium Chloride 0.9% [Normal Saline] 99 ml IV TITRATE Lactated Ringers [Ringers, Lactated] 1,000 ml Med 05/07/21 07:00 Active IV ASDIRECTED Lactated Ringers [Ringers, Lactated] 1,000 ml Med 05/07/21 09:45 Active IV ASDIRECTED Ondansetron [Zofran ODT] Med 05/07/21 09:39 Active 4 mg PO Q4H PRN Ondansetron [Zofran] Med 05/07/21 09:39 Active 4 mg IV Q4H PRN Sodium Chloride 0.9% [Saline Flush] Med 05/07/21 09:39 Active 10 ml FLUSH ASDIRECTED PRN Saline Lock Insert [OM.PC] Routine Oth 05/07/21 09:39 Ordered Resuscitation Status Routine Resus Stat 05/07/21 09:39 Ordered Medication Orders Acetaminophen (Acetaminophen 325 Mg Tab) 650 mg PO Q4H PRN PRN Reason: Pain (Mild 1-3)/fever Heparin Sodium (Porcine) (Heparin Sodium 5,000 Units/Ml Vial) 5,000 units SUBCUT Q8H PRINCE Lactated Ringer's (Ringers, Lactated) 1,000 mls @ 500 mls/hr IV ASDIRECTED PRINCE Last Admin: 05/07/21 07:46 Dose: 500 mls/hr Documented by: TABBY Insulin Human Regular 100 unit (/ Sodium Chloride) 100 mls @ 2 mls/hr IV TITRATE PRINCE; Protocol Last Admin: 05/07/21 09:39 Dose: 2 unit/hr, 2 mls/hr Documented by: TABBY Cosigned by: LEONARDO Lactated Ringer's (Ringers, Lactated) 1,000 mls @ 125 mls/hr IV ASDIRECTED PRINCE Last Admin: 05/07/21 09:59 Dose: 125 mls/hr Documented by: TABBY Ondansetron HCl (Ondansetron 4 Mg Tab.Dis) 4 mg PO Q4H PRN PRN Reason: nausea, able to take PO Ondansetron HCl (Ondansetron 4 Mg/2 Ml Sdv) 4 mg IV Q4H PRN PRN Reason: Nausea/Vomiting Sodium Chloride (Sodium Chloride 0.9% 10 Ml Syringe) 10 ml FLUSH ASDIRECTED PRN PRN Reason: Keep Vein Open Assessment/Plan Comment:: 26-year-old male with a past medical history as listed above who presents to the [facility] emergency department with cold-like symptoms and a cough. Found to be septic by definition from acute pneumonia as well as in a diabetic ketoacidotic state. 1. Diabetic ketoacidosis. Admit to the internal medicine service under ICU level of care for ongoing management. Continue aggressive crystalloid hydration. DKA protocol with insulin infusion has been invoked. Every 4 hours metabolic panels. Repeat VBG. Patient may eat when he feels as if he can do so. 2. Sepsis without shock. Empiric antibiotics with Rocephin and azithromycin. Continue aggressive crystalloid hydration. Repeat lactic acid as per protocols. Cultures pending. Secondary to acute community-acquired pneumonia. 3. Community-acquired pneumonia. Plan as above. Respiratory therapy consult. Incentive spirometry encouraged. CODE STATUS: Full code. DVT prophylaxis with heparin. - Mortality Measure Prognosis:: Good
[2021-05-07] MEDS: Heparin Sodium 5,000 Units/ML Vial SUBCUT SCH ×2 (10:47→17:25)
[2021-05-07] MEDS: cefTRIAXone 1 GM in Sodium Chloride 0.9% 100 ML IV SCH (10:48)
[2021-05-07] MEDS: Azithromycin 500 MG in Sodium Chloride 0.9% 250 ML IV SCH (11:22)
[2021-05-07] MEDS ORDERED: Potassium Chloride 20 MEQ Tab.ER PO ONE ×2 (14:32→19:00)
[2021-05-07] MEDS: Sodium Bicarbonate 650 MG Tab PO SCH (21:21)
[2021-05-08] MEDS: Heparin Sodium 5,000 Units/ML Vial SUBCUT SCH ×3 (02:04→17:34)
[2021-05-08] MEDS: Lactated Ringers 1,000 ML IV SCH ×3 (02:05→18:50)
[2021-05-08] MEDS: Sodium Bicarbonate 650 MG Tab PO SCH ×3 (08:57→21:29)
[2021-05-08] MEDS: cefTRIAXone 1 GM in Sodium Chloride 0.9% 100 ML IV SCH (09:43)
[2021-05-08] MEDS: guaiFENesin 600 MG Tab.ER PO PRN ×2 (10:27→23:01)
[2021-05-08] MEDS: Azithromycin 500 MG in Sodium Chloride 0.9% 250 ML IV SCH (10:27)
[2021-05-08] MEDS ORDERED: Insulin Lispro 100 UNIT/ML 10 ML Vial SUBCUT ONE ×2 (11:00→17:18)
--- NOTE | 2021-05-08 11:24 | PCM.PN ---
- General Info Date of Service: 05/08/21 Admission Dx/Problem (Free Text): Diabetic ketoacidosis, acute pneumonia without hypoxia Subjective Update: No acute events overnight. No specific new nursing concerns. Patient's anion gap now closed. Sugars controlled. Patient states that he feels better overall. Continues to have cough which is the most nagging symptom for him. No sputum production. No fever. No constitutional symptoms. Diarrheal episodes yesterday have subsided. - Patient Data Vitals - Most Recent: Last Vital Signs Temp 97.6 F 05/08/21 08:00 Pulse 110 H 05/08/21 08:00 Resp 16 05/08/21 08:00 BP 125/89 05/08/21 08:00 Pulse Ox 100 05/08/21 08:00 Weight - Most Recent: 124 lb 1.6 oz I&O - Last 24 Hours: Intake & Output 05/07/21 05/08/21 05/08/21 22:59 06:59 14:59 Intake Total 3017 2200 320 Output Total 400 Balance 2617 2200 320 Lab Results Last 24 Hours: Laboratory Results - last 24 hr 05/07/21 05/07/21 05/07/21 Range/Units 10:52 10:52 11:54 WBC (4.23-9.07) K/mm3 RBC (4.63-6.08) M/mm3 Hgb (13.7-17.5) gm/dl Hct (40.1-51.0) % MCV (79.0-92.2) fl MCH (25.7-32.2) pg MCHC (32.2-35.5) g/dl RDW Std Deviation (35.1-43.9) fL Plt Count (163-337) K/mm3 MPV (9.4-12.3) fl VBG pH (7.30-7.40) VBG pCO2 (41-51) mmHg VBG pO2 (40-80) mmHG VBG HCO3 (22-26) meq/L VBG O2 Saturation VBG Base Excess (-4.0-2.0) O2 Delivery Device Sodium 138 (136-145) mEq/L Potassium 3.2 L (3.5-5.1) mEq/L Chloride 103 (98-107) mEq/L Carbon Dioxide 11 L (21-32) mEq/L Anion Gap 27.2 H (5-15) BUN (7-18) mg/dL Creatinine (0.7-1.3) mg/dL Est Cr Clr Drug Dosing mL/min Estimated GFR (MDRD) (>60) mL/min BUN/Creatinine Ratio (14-18) Glucose 319 H (70-99) mg/dL POC Glucose 157 H (70-99) mg/dL Calcium (8.5-10.1) mg/dL Magnesium (1.8-2.4) mg/dL Total Bilirubin (0.2-1.0) mg/dL AST (15-37) U/L ALT (16-63) U/L Alkaline Phosphatase (46-116) U/L Total Protein (6.4-8.2) g/dl Albumin (3.4-5.0) g/dl Globulin gm/dL Albumin/Globulin Ratio (1-2) 05/07/21 05/07/21 05/07/21 Range/Units 12:47 12:47 13:45 WBC (4.23-9.07) K/mm3 RBC (4.63-6.08) M/mm3 Hgb (13.7-17.5) gm/dl Hct (40.1-51.0) % MCV (79.0-92.2) fl MCH (25.7-32.2) pg MCHC (32.2-35.5) g/dl RDW Std Deviation (35.1-43.9) fL Plt Count (163-337) K/mm3 MPV (9.4-12.3) fl VBG pH (7.30-7.40) VBG pCO2 (41-51) mmHg VBG pO2 (40-80) mmHG VBG HCO3 (22-26) meq/L VBG O2 Saturation VBG Base Excess (-4.0-2.0) O2 Delivery Device Sodium (136-145) mEq/L Potassium 3.3 L (3.5-5.1) mEq/L Chloride (98-107) mEq/L Carbon Dioxide (21-32) mEq/L Anion Gap (5-15) BUN (7-18) mg/dL Creatinine (0.7-1.3) mg/dL Est Cr Clr Drug Dosing mL/min Estimated GFR (MDRD) (>60) mL/min BUN/Creatinine Ratio (-18) Glucose 190 H (70-99) mg/dL POC Glucose 167 H 128 H (70-99) mg/dL Calcium (8.5-10.1) mg/dL Magnesium (1.8-2.4) mg/dL Total Bilirubin (0.2-1.0) mg/dL AST (15-37) U/L ALT (16-63) U/L Alkaline Phosphatase (46-116) U/L Total Protein (6.4-8.2) g/dl Albumin (3.4-5.0) g/dl Globulin gm/dL Albumin/Globulin Ratio (1-2) 05/07/21 05/07/21 05/07/21 Range/Units 13:46 15:18 16:28 WBC (4.23-9.07) K/mm3 RBC (4.63-6.08) M/mm3 Hgb (13.7-17.5) gm/dl Hct (40.1-51.0) % MCV (79.0-92.2) fl MCH (25.7-32.2) pg MCHC (32.2-35.5) g/dl RDW Std Deviation (35.1-43.9) fL Plt Count (163-337) K/mm3 MPV (9.4-12.3) fl VBG pH (7.30-7.40) VBG pCO2 (41-51) mmHg VBG pO2 (40-80) mmHG VBG HCO3 (22-26) meq/L VBG O2 Saturation VBG Base Excess (-4.0-2.0) O2 Delivery Device Sodium (136-145) mEq/L Potassium 3.4 L (3.5-5.1) mEq/L Chloride (98-107) mEq/L Carbon Dioxide (21-32) mEq/L Anion Gap (5-15) BUN (7-18) mg/dL Creatinine (0.7-1.3) mg/dL Est Cr Clr Drug Dosing mL/min Estimated GFR (MDRD) (>60) mL/min BUN/Creatinine Ratio (14-18) Glucose 138 H (70-99) mg/dL POC Glucose 288 H 224 H (70-99) mg/dL Calcium (8.5-10.1) mg/dL Magnesium (1.8-2.4) mg/dL Total Bilirubin (0.2-1.0) mg/dL AST (15-37) U/L ALT (16-63) U/L Alkaline Phosphatase (46-116) U/L Total Protein (6.4-8.2) g/dl Albumin (3.4-5.0) g/dl Globulin gm/dL Albumin/Globulin Ratio (1-2) 05/07/21 05/07/21 05/07/21 Range/Units 17:05 17:17 17:17 WBC (4.23-9.07) K/mm3 RBC (4.63-6.08) M/mm3 Hgb (13.7-17.5) gm/dl Hct (40.1-51.0) % MCV (79.0-92.2) fl MCH (25.7-32.2) pg MCHC (32.2-35.5) g/dl RDW Std Deviation (35.1-43.9) fL Plt Count (163-337) K/mm3 MPV (9.4-12.3) fl VBG pH 7.37 (7.30-7.40) VBG pCO2 27.6 L (41-51) mmHg VBG pO2 77.0 (40-80) mmHG VBG HCO3 15.5 L (22-26) meq/L VBG O2 Saturation 97.5 VBG Base Excess -8.5 L (-4.0-2.0) O2 Delivery Device Room air Sodium 139 (136-145) mEq/L Potassium 3.3 L (3.5-5.1) mEq/L Chloride 106 (98-107) mEq/L Carbon Dioxide 18 L (21-32) mEq/L Anion Gap 18.3 H (5-15) BUN 10 (7-18) mg/dL Creatinine 1.3 (0.7-1.3) mg/dL Est Cr Clr Drug Dosing 68.19 mL/min Estimated GFR (MDRD) > 60 (>60) mL/min BUN/Creatinine Ratio 7.7 L (14-18) Glucose 184 H (70-99) mg/dL POC Glucose 164 H (70-99) mg/dL Calcium 7.7 L (8.5-10.1) mg/dL Magnesium (1.8-2.4) mg/dL Total Bilirubin (0.2-1.0) mg/dL AST (15-37) U/L ALT (16-63) U/L Alkaline Phosphatase (46-116) U/L Total Protein (6.4-8.2) g/dl Albumin (3.4-5.0) g/dl Globulin gm/dL Albumin/Globulin Ratio (1-2) 05/07/21 05/07/21 05/07/21 Range/Units 18:24 19:19 20:05 WBC (4.23-9.07) K/mm3 RBC (4.63-6.08) M/mm3 Hgb (13.7-17.5) gm/dl Hct (40.1-51.0) % MCV (79.0-92.2) fl MCH (25.7-32.2) pg MCHC (32.2-35.5) g/dl RDW Std Deviation (35.1-43.9) fL Plt Count (163-337) K/mm3 MPV (9.4-12.3) fl VBG pH (7.30-7.40) VBG pCO2 (41-51) mmHg VBG pO2 (40-80) mmHG VBG HCO3 (22-26) meq/L VBG O2 Saturation VBG Base Excess (-4.0-2.0) O2 Delivery Device Sodium (136-145) mEq/L Potassium (3.5-5.1) mEq/L Chloride (98-107) mEq/L Carbon Dioxide (21-32) mEq/L Anion Gap (5-15) BUN (7-18) mg/dL Creatinine (0.7-1.3) mg/dL Est Cr Clr Drug Dosing mL/min Estimated GFR (MDRD) (>60) mL/min BUN/Creatinine Ratio (14-18) Glucose (70-99) mg/dL POC Glucose 175 H 291 H 253 H (70-99) mg/dL Calcium (8.5-10.1) mg/dL Magnesium (1.8-2.4) mg/dL Total Bilirubin (0.2-1.0) mg/dL AST (15-37) U/L ALT (16-63) U/L Alkaline Phosphatase (46-116) U/L Total Protein (6.4-8.2) g/dl Albumin (3.4-5.0) g/dl Globulin gm/dL Albumin/Globulin Ratio (1-2) 05/07/21 05/07/21 05/07/21 Range/Units 21:08 22:06 23:02 WBC (4.23-9.07) K/mm3 RBC (4.63-6.08) M/mm3 Hgb (13.7-17.5) gm/dl Hct (40.1-51.0) % MCV (79.0-92.2) fl MCH (25.7-32.2) pg MCHC (32.2-35.5) g/dl RDW Std Deviation (35.1-43.9) fL Plt Count (163-337) K/mm3 MPV (9.4-12.3) fl VBG pH (7.30-7.40) VBG pCO2 (41-51) mmHg VBG pO2 (40-80) mmHG VBG HCO3 (22-26) meq/L VBG O2 Saturation VBG Base Excess (-4.0-2.0) O2 Delivery Device Sodium (136-145) mEq/L Potassium (3.5-5.1) mEq/L Chloride (98-107) mEq/L Carbon Dioxide (21-32) mEq/L Anion Gap (5-15) BUN (7-18) mg/dL Creatinine (0.7-1.3) mg/dL Est Cr Clr Drug Dosing mL/min Estimated GFR (MDRD) (>60) mL/min BUN/Creatinine Ratio (14-18) Glucose (70-99) mg/dL POC Glucose 187 H 154 H 142 H (70-99) mg/dL Calcium (8.5-10.1) mg/dL Magnesium (1.8-2.4) mg/dL Total Bilirubin (0.2-1.0) mg/dL AST (15-37) U/L ALT (16-63) U/L Alkaline Phosphatase (46-116) U/L Total Protein (6.4-8.2) g/dl Albumin (3.4-5.0) g/dl Globulin gm/dL Albumin/Globulin Ratio (1-2) 05/08/21 05/08/21 05/08/21 Range/Units 00:00 01:00 01:59 WBC (4.23-9.07) K/mm3 RBC (4.63-6.08) M/mm3 Hgb (13.7-17.5) gm/dl Hct (40.1-51.0) % MCV (79.0-92.2) fl MCH (25.7-32.2) pg MCHC (32.2-35.5) g/dl RDW Std Deviation (35.1-43.9) fL Plt Count (163-337) K/mm3 MPV (9.4-12.3) fl VBG pH (7.30-7.40) VBG pCO2 (41-51) mmHg VBG pO2 (40-80) mmHG VBG HCO3 (22-26) meq/L VBG O2 Saturation VBG Base Excess (-4.0-2.0) O2 Delivery Device Sodium (136-145) mEq/L Potassium (3.5-5.1) mEq/L Chloride (98-107) mEq/L Carbon Dioxide (21-32) mEq/L Anion Gap (5-15) BUN (7-18) mg/dL Creatinine (0.7-1.3) mg/dL Est Cr Clr Drug Dosing mL/min Estimated GFR (MDRD) (>60) mL/min BUN/Creatinine Ratio (14-18) Glucose (70-99) mg/dL POC Glucose 205 H 235 H 190 H (70-99) mg/dL Calcium (8.5-10.1) mg/dL Magnesium (1.8-2.4) mg/dL Total Bilirubin (0.2-1.0) mg/dL AST (15-37) U/L ALT (16-63) U/L Alkaline Phosphatase (46-116) U/L Total Protein (6.4-8.2) g/dl Albumin (3.4-5.0) g/dl Globulin gm/dL Albumin/Globulin Ratio (1-2) 05/08/21 05/08/21 05/08/21 Range/Units 02:28 03:00 03:57 WBC (4.23-9.07) K/mm3 RBC (4.63-6.08) M/mm3 Hgb (13.7-17.5) gm/dl Hct (40.1-51.0) % MCV (79.0-92.2) fl MCH (25.7-32.2) pg MCHC (32.2-35.5) g/dl RDW Std Deviation (35.1-43.9) fL Plt Count (163-337) K/mm3 MPV (9.4-12.3) fl VBG pH (7.30-7.40) VBG pCO2 (41-51) mmHg VBG pO2 (40-80) mmHG VBG HCO3 (22-26) meq/L VBG O2 Saturation VBG Base Excess (-4.0-2.0) O2 Delivery Device Sodium 142 (136-145) mEq/L Potassium 3.8 (3.5-5.1) mEq/L Chloride 109 H (98-107) mEq/L Carbon Dioxide 20 L (21-32) mEq/L Anion Gap 16.8 H (5-15) BUN 6 L (7-18) mg/dL Creatinine 1.0 (0.7-1.3) mg/dL Est Cr Clr Drug Dosing 88.64 mL/min Estimated GFR (MDRD) > 60 (>60) mL/min BUN/Creatinine Ratio 6.0 L (14-18) Glucose 176 H (70-99) mg/dL POC Glucose 122 H 123 H (70-99) mg/dL Calcium 7.7 L (8.5-10.1) mg/dL Magnesium 1.8 (1.8-2.4) mg/dL Total Bilirubin (0.2-1.0) mg/dL AST (15-37) U/L ALT (16-63) U/L Alkaline Phosphatase (46-116) U/L Total Protein (6.4-8.2) g/dl Albumin (3.4-5.0) g/dl Globulin gm/dL Albumin/Globulin Ratio (1-2) 05/08/21 05/08/21 05/08/21 Range/Units 05:04 05:37 05:37 WBC 5.40 (4.23-9.07) K/mm3 RBC 2.98 L (4.63-6.08) M/mm3 Hgb 9.1 L D (13.7-17.5) gm/dl Hct 26.7 L (40.1-51.0) % MCV 89.6 (79.0-92.2) fl MCH 30.5 (25.7-32.2) pg MCHC 34.1 (32.2-35.5) g/dl RDW Std Deviation 43.2 (35.1-43.9) fL Plt Count 271 D (163-337) K/mm3 MPV 8.3 L (9.4-12.3) fl VBG pH (7.30-7.40) VBG pCO2 (41-51) mmHg VBG pO2 (40-80) mmHG VBG HCO3 (22-26) meq/L VBG O2 Saturation VBG Base Excess (-4.0-2.0) O2 Delivery Device Sodium 142 (136-145) mEq/L Potassium 4.0 (3.5-5.1) mEq/L Chloride 108 H (98-107) mEq/L Carbon Dioxide 26 (21-32) mEq/L Anion Gap 12.0 (5-15) BUN 5 L (7-18) mg/dL Creatinine 0.8 (0.7-1.3) mg/dL Est Cr Clr Drug Dosing 113.36 mL/min Estimated GFR (MDRD) > 60 (>60) mL/min BUN/Creatinine Ratio 6.3 L (14-18) Glucose 168 H (70-99) mg/dL POC Glucose 164 H (70-99) mg/dL Calcium 8.2 L (8.5-10.1) mg/dL Magnesium (1.8-2.4) mg/dL Total Bilirubin 0.3 (0.2-1.0) mg/dL AST 38 H (15-37) U/L ALT 58 (16-63) U/L Alkaline Phosphatase 195 H (46-116) U/L Total Protein 6.8 (6.4-8.2) g/dl Albumin 2.9 L (3.4-5.0) g/dl Globulin 3.9 gm/dL Albumin/Globulin Ratio 0.7 L (1-2) 05/08/21 05/08/21 05/08/21 Range/Units 05:59 06:51 08:04 WBC (4.23-9.07) K/mm3 RBC (4.63-6.08) M/mm3 Hgb (13.7-17.5) gm/dl Hct (40.1-51.0) % MCV (79.0-92.2) fl MCH (25.7-32.2) pg MCHC (32.2-35.5) g/dl RDW Std Deviation (35.1-43.9) fL Plt Count (163-337) K/mm3 MPV (9.4-12.3) fl VBG pH (7.30-7.40) VBG pCO2 (41-51) mmHg VBG pO2 (40-80) mmHG VBG HCO3 (22-26) meq/L VBG O2 Saturation VBG Base Excess (-4.0-2.0) O2 Delivery Device Sodium (136-145) mEq/L Potassium (3.5-5.1) mEq/L Chloride (98-107) mEq/L Carbon Dioxide (21-32) mEq/L Anion Gap (5-15) BUN (7-18) mg/dL Creatinine (0.7-1.3) mg/dL Est Cr Clr Drug Dosing mL/min Estimated GFR (MDRD) (>60) mL/min BUN/Creatinine Ratio (14-18) Glucose (70-99) mg/dL POC Glucose 159 H 115 H 222 H (70-99) mg/dL Calcium (8.5-10.1) mg/dL Magnesium (1.8-2.4) mg/dL Total Bilirubin (0.2-1.0) mg/dL AST (15-37) U/L ALT (16-63) U/L Alkaline Phosphatase (46-116) U/L Total Protein (6.4-8.2) g/dl Albumin (3.4-5.0) g/dl Globulin gm/dL Albumin/Globulin Ratio (1-2) 05/08/21 05/08/21 05/08/21 Range/Units 09:01 10:10 11:09 WBC (4.23-9.07) K/mm3 RBC (4.63-6.08) M/mm3 Hgb (13.7-17.5) gm/dl Hct (40.1-51.0) % MCV (79.0-92.2) fl MCH (25.7-32.2) pg MCHC (32.2-35.5) g/dl RDW Std Deviation (35.1-43.9) fL Plt Count (163-337) K/mm3 MPV (9.4-12.3) fl VBG pH (7.30-7.40) VBG pCO2 (41-51) mmHg VBG pO2 (40-80) mmHG VBG HCO3 (22-26) meq/L VBG O2 Saturation VBG Base Excess (-4.0-2.0) O2 Delivery Device Sodium (136-145) mEq/L Potassium (3.5-5.1) mEq/L Chloride (98-107) mEq/L Carbon Dioxide (21-32) mEq/L Anion Gap (5-15) BUN (7-18) mg/dL Creatinine (0.7-1.3) mg/dL Est Cr Clr Drug Dosing mL/min Estimated GFR (MDRD) (>60) mL/min BUN/Creatinine Ratio (14-18) Glucose (70-99) mg/dL POC Glucose 350 H 322 H 170 H (70-99) mg/dL Calcium (8.5-10.1) mg/dL Magnesium (1.8-2.4) mg/dL Total Bilirubin (0.2-1.0) mg/dL AST (15-37) U/L ALT (16-63) U/L Alkaline Phosphatase (46-116) U/L Total Protein (6.4-8.2) g/dl Albumin (3.4-5.0) g/dl Globulin gm/dL Albumin/Globulin Ratio (1-2) Med Orders - Current: Current Medications Acetaminophen (Acetaminophen 325 Mg Tab) 650 mg PO Q4H PRN PRN Reason: Pain (Mild 1-3)/fever Benzonatate (Benzonatate 100 Mg Cap) 200 mg PO Q8H PRN PRN Reason: Cough Guaifenesin (Guaifenesin 600 Mg Tab.Er) 600 mg PO BID PRN PRN Reason: Cough Last Admin: 05/08/21 10:27 Dose: 600 mg Documented by: Heparin Sodium (Porcine) (Heparin Sodium 5,000 Units/Ml Vial) 5,000 units SUBCUT Q8H [facility] Last Admin: 05/08/21 08:57 Dose: 5,000 units Documented by: Lactated Ringer's (Ringers, Lactated) 1,000 mls @ 125 mls/hr IV ASDIRECTED [facility] Last Admin: 05/08/21 10:56 Dose: 125 mls/hr Documented by: Ceftriaxone Sodium 1 gm/ (Sodium Chloride) 100 mls @ 200 mls/hr IV Q24H [facility] Last Admin: 05/08/21 09:43 Dose: 200 mls/hr Documented by: Azithromycin 500 mg/ Sodium (Chloride) 250 mls @ 250 mls/hr IV Q24H [facility] Last Admin: 05/08/21 10:27 Dose: 250 mls/hr Documented by: Insulin Human Regular 100 unit (/ Sodium Chloride) 100 mls @ 1 mls/hr IV TITRATE [facility]; Protocol Last Infusion: 05/08/21 09:00 Dose: 3 mls/hr Documented by: Insulin Glargine (Insulin Glarg,Human.Rec.Analog 100 Unit/Ml) 16 unit SUBCUT BEDTIME [facility] Insulin Human Lispro (Insulin Lispro 100 Unit/Ml 10 Ml Vial) 0 unit SUBCUT QIDACANDBED [facility]; Protocol Ondansetron HCl (Ondansetron 4 Mg Tab.Dis) 4 mg PO Q4H PRN PRN Reason: nausea, able to take PO Ondansetron HCl (Ondansetron 4 Mg/2 Ml Sdv) 4 mg IV Q4H PRN PRN Reason: Nausea/Vomiting Sodium Bicarbonate (Sodium Bicarbonate 650 Mg Tab) 650 mg PO TID [facility] Last Admin: 05/08/21 08:57 Dose: 650 mg Documented by: Sodium Chloride (Sodium Chloride 0.9% 10 Ml Syringe) 10 ml FLUSH ASDIRECTED PRN PRN Reason: Keep Vein Open Discontinued Medications Sodium Chloride (Normal Saline) 1,000 mls @ 999 mls/hr IV ONETIME ONE Stop: 05/07/21 02:50 Last Admin: 05/07/21 02:32 Dose: 999 mls/hr Documented by: Lactated Ringer's (Ringers, Lactated) 1,000 mls @ 999 mls/hr IV .BOLUS ONE Stop: 05/07/21 05:27 Last Admin: 05/07/21 04:40 Dose: 999 mls/hr Documented by: Lactated Ringer's (Ringers, Lactated) 1,000 mls @ 500 mls/hr IV ASDIRECTED [facility] Last Admin: 05/07/21 07:46 Dose: 500 mls/hr Documented by: Insulin Human Regular 100 unit (/ Sodium Chloride) 100 mls @ 2 mls/hr IV TITRATE [facility]; Protocol Last Titration: 05/07/21 12:00 Dose: 1.5 unit/hr, 1.5 mls/hr Documented by: Insulin Human Regular 100 unit (/ Sodium Chloride) 100 mls @ 5.443 mls/hr IV TITRATE [facility]; Protocol Insulin Human Regular 100 unit (/ Sodium Chloride) 100 mls @ 5.502 mls/hr IV TITRATE [facility]; Protocol Insulin Human Lispro (Insulin Lispro 100 Unit/Ml 10 Ml Vial) 4 unit SUBCUT ONETIME ONE Stop: 05/08/21 11:01 Last Admin: 05/08/21 10:55 Dose: 4 units Documented by: Insulin Human Regular (Insulin Regular, Human 100 Units/Ml 3 Ml Vial) 2 unit IV ONETIME STA Stop: 05/07/21 01:51 Last Admin: 05/07/21 02:32 Dose: 2 unit Documented by: Insulin Human Regular (Insulin Regular, Human 100 Units/Ml 3 Ml Vial) 1 unit IV ONETIME STA Stop: 05/07/21 06:50 Last Admin: 05/07/21 07:44 Dose: 1 unit Documented by: Insulin Human Regular (Insulin Regular, Human 100 Units/Ml 3 Ml Vial) 2 unit IV ONETIME STA Stop: 05/07/21 08:19 Last Admin: 05/07/21 08:30 Dose: 2 unit Documented by: Potassium Chloride (Potassium Chloride 20 Meq Tab.Er) 40 meq PO ONETIME ONE Stop: 05/07/21 14:33 Last Admin: 05/07/21 14:47 Dose: 40 meq Documented by: Potassium Chloride (Potassium Chloride 20 Meq Tab.Er) 40 meq PO ONETIME ONE Stop: 05/07/21 19:01 Last Admin: 05/07/21 19:18 Dose: 40 meq Documented by: - Exam General: Alert, No Acute Distress Lungs: Clear to Auscultation, Decreased Breath Sounds (Decreased breath sounds at bases most especially left base without rhonchi or wheezing. Minimal rales), Rales Cardiovascular: Regular Rate GI/Abdominal Exam: Normal Bowel Sounds, Soft, Non-Tender Extremities: Normal Inspection, No Pedal Edema Skin: Warm, Dry Neurological: No New Focal Deficit - Patient Data Lab Results Last 24 hrs: Laboratory Results - last 24 hr 0805/07/21 05/07/21 Range/Units 10:52 10:52 11:54 WBC (4.23-9.07) K/mm3 RBC (4.63-6.08) M/mm3 Hgb (13.7-17.5) gm/dl Hct (40.1-51.0) % MCV (79.0-92.2) fl MCH (25.7-32.2) pg MCHC (32.2-35.5) g/dl RDW Std Deviation (35.1-43.9) fL Plt Count (163-337) K/mm3 MPV (9.4-12.3) fl VBG pH (7.30-7.40) VBG pCO2 (41-51) mmHg VBG pO2 (40-80) mmHG VBG HCO3 (22-26) meq/L VBG O2 Saturation VBG Base Excess (-4.0-2.0) O2 Delivery Device Sodium 138 (136-145) mEq/L Potassium 3.2 L (3.5-5.1) mEq/L Chloride 103 (98-107) mEq/L Carbon Dioxide 11 L (21-32) mEq/L Anion Gap 27.2 H (5-15) BUN (7-18) mg/dL Creatinine (0.7-1.3) mg/dL Est Cr Clr Drug Dosing mL/min Estimated GFR (MDRD) (>60) mL/min BUN/Creatinine Ratio (14-18) Glucose 319 H (70-99) mg/dL POC Glucose 157 H (70-99) mg/dL Calcium (8.5-10.1) mg/dL Magnesium (1.8-2.4) mg/dL Total Bilirubin (0.2-1.0) mg/dL AST (15-37) U/L ALT (16-63) U/L Alkaline Phosphatase (46-116) U/L Total Protein (6.4-8.2) g/dl Albumin (3.4-5.0) g/dl Globulin gm/dL Albumin/Globulin Ratio (1-2) 05/07/21 05/07/21 05/07/21 Range/Units 12:47 12:47 13:45 WBC (4.23-9.07) K/mm3 RBC (4.63-6.08) M/mm3 Hgb (13.7-17.5) gm/dl Hct (40.1-51.0) % MCV (79.0-92.2) fl MCH (25.7-32.2) pg MCHC (32.2-35.5) g/dl RDW Std Deviation (35.1-43.9) fL Plt Count (163-337) K/mm3 MPV (9.4-12.3) fl VBG pH (7.30-7.40) VBG pCO2 (41-51) mmHg VBG pO2 (40-80) mmHG VBG HCO3 (22-26) meq/L VBG O2 Saturation VBG Base Excess (-4.0-2.0) O2 Delivery Device Sodium (136-145) mEq/L Potassium 3.3 L (3.5-5.1) mEq/L Chloride (98-107) mEq/L Carbon Dioxide (21-32) mEq/L Anion Gap (5-15) BUN (7-18) mg/dL Creatinine (0.7-1.3) mg/dL Est Cr Clr Drug Dosing mL/min Estimated GFR (MDRD) (>60) mL/min BUN/Creatinine Ratio (14-18) Glucose 190 H (70-99) mg/dL POC Glucose 167 H 128 H (70-99) mg/dL Calcium (8.5-10.1) mg/dL Magnesium (1.8-2.4) mg/dL Total Bilirubin (0.2-1.0) mg/dL AST (15-37) U/L ALT (16-63) U/L Alkaline Phosphatase (46-116) U/L Total Protein (6.4-8.2) g/dl Albumin (3.4-5.0) g/dl Globulin gm/dL Albumin/Globulin Ratio (1-2) 05/07/21 05/07/21 05/07/21 Range/Units 13:46 15:18 16:28 WBC (4.23-9.07) K/mm3 RBC (4.63-6.08) M/mm3 Hgb (13.7-17.5) gm/dl Hct (40.1-51.0) % MCV (79.0-92.2) fl MCH (25.7-32.2) pg MCHC (32.2-35.5) g/dl RDW Std Deviation (35.1-43.9) fL Plt Count (163-337) K/mm3 MPV (9.4-12.3) fl VBG pH (7.30-7.40) VBG pCO2 (41-51) mmHg VBG pO2 (40-80) mmHG VBG HCO3 (22-26) meq/L VBG O2 Saturation VBG Base Excess (-4.0-2.0) O2 Delivery Device Sodium (136-145) mEq/L Potassium 3.4 L (3.5-5.1) mEq/L Chloride (98-107) mEq/L Carbon Dioxide (21-32) mEq/L Anion Gap (5-15) BUN (7-18) mg/dL Creatinine (0.7-1.3) mg/dL Est Cr Clr Drug Dosing mL/min Estimated GFR (MDRD) (>60) mL/min BUN/Creatinine Ratio (14-18) Glucose 138 H (70-99) mg/dL POC Glucose 288 H 224 H (70-99) mg/dL Calcium (8.5-10.1) mg/dL Magnesium (1.8-2.4) mg/dL Total Bilirubin (0.2-1.0) mg/dL AST (15-37) U/L ALT (16-63) U/L Alkaline Phosphatase (46-116) U/L Total Protein (6.4-8.2) g/dl Albumin (3.4-5.0) g/dl Globulin gm/dL Albumin/Globulin Ratio (1-2) 05/07/21 05/07/21 05/07/21 Range/Units 17:05 17:17 17:17 WBC (4.23-9.07) K/mm3 RBC (4.63-6.08) M/mm3 Hgb (13.7-17.5) gm/dl Hct (40.1-51.0) % MCV (79.0-92.2) fl MCH (25.7-32.2) pg MCHC (32.2-35.5) g/dl RDW Std Deviation (35.1-43.9) fL Plt Count (163-337) K/mm3 MPV (9.4-12.3) fl VBG pH 7.37 (7.30-7.40) VBG pCO2 27.6 L (41-51) mmHg VBG pO2 77.0 (40-80) mmHG VBG HCO3 15.5 L (22-26) meq/L VBG O2 Saturation 97.5 VBG Base Excess -8.5 L (-4.0-2.0) O2 Delivery Device Room air Sodium 139 (136-145) mEq/L Potassium 3.3 L (3.5-5.1) mEq/L Chloride 106 (98-107) mEq/L Carbon Dioxide 18 L (21-32) mEq/L Anion Gap 18.3 H (5-15) BUN 10 (7-18) mg/dL Creatinine 1.3 (0.7-1.3) mg/dL Est Cr Clr Drug Dosing 68.19 mL/min Estimated GFR (MDRD) > 60 (>60) mL/min BUN/Creatinine Ratio 7.7 L (14-18) Glucose 184 H (70-99) mg/dL POC Glucose 164 H (70-99) mg/dL Calcium 7.7 L (8.5-10.1) mg/dL Magnesium (1.8-2.4) mg/dL Total Bilirubin (0.2-1.0) mg/dL AST (15-37) U/L ALT (16-63) U/L Alkaline Phosphatase (46-116) U/L Total Protein (6.4-8.2) g/dl Albumin (3.4-5.0) g/dl Globulin gm/dL Albumin/Globulin Ratio (1-2) 05/07/21 05/07/21 05/07/21 Range/Units 18:24 19:19 20:05 WBC (4.23-9.07) K/mm3 RBC (4.63-6.08) M/mm3 Hgb (13.7-17.5) gm/dl Hct (40.1-51.0) % MCV (79.0-92.2) fl MCH (25.7-32.2) pg MCHC (32.2-35.5) g/dl RDW Std Deviation (35.1-43.9) fL Plt Count (163-337) K/mm3 MPV (9.4-12.3) fl VBG pH (7.30-7.40) VBG pCO2 (41-51) mmHg VBG pO2 (40-80) mmHG VBG HCO3 (22-26) meq/L VBG O2 Saturation VBG Base Excess (-4.0-2.0) O2 Delivery Device Sodium (136-145) mEq/L Potassium (3.5-5.1) mEq/L Chloride (98-107) mEq/L Carbon Dioxide (21-32) mEq/L Anion Gap (5-15) BUN (7-18) mg/dL Creatinine (0.7-1.3) mg/dL Est Cr Clr Drug Dosing mL/min Estimated GFR (MDRD) (>60) mL/min BUN/Creatinine Ratio (14-18) Glucose (70-99) mg/dL POC Glucose 175 H 291 H 253 H (70-99) mg/dL Calcium (8.5-10.1) mg/dL Magnesium (1.8-2.4) mg/dL Total Bilirubin (0.2-1.0) mg/dL AST (15-37) U/L ALT (16-63) U/L Alkaline Phosphatase (46-116) U/L Total Protein (6.4-8.2) g/dl Albumin (3.4-5.0) g/dl Globulin gm/dL Albumin/Globulin Ratio (1-2) 05/07/21 05/07/21 05/07/21 Range/Units 21:08 22:06 23:02 WBC (4.23-9.07) K/mm3 RBC (4.63-6.08) M/mm3 Hgb (13.7-17.5) gm/dl Hct (40.1-51.0) % MCV (79.0-92.2) fl MCH (25.7-32.2) pg MCHC (32.2-35.5) g/dl RDW Std Deviation (35.1-43.9) fL Plt Count (163-337) K/mm3 MPV (9.4-12.3) fl VBG pH (7.30-7.40) VBG pCO2 (41-51) mmHg VBG pO2 (40-80) mmHG VBG HCO3 (22-26) meq/L VBG O2 Saturation VBG Base Excess (-4.0-2.0) O2 Delivery Device Sodium (136-145) mEq/L Potassium (3.5-5.1) mEq/L Chloride (98-107) mEq/L Carbon Dioxide (21-32) mEq/L Anion Gap (5-15) BUN (7-18) mg/dL Creatinine (0.7-1.3) mg/dL Est Cr Clr Drug Dosing mL/min Estimated GFR (MDRD) (>60) mL/min BUN/Creatinine Ratio (14-18) Glucose (70-99) mg/dL POC Glucose 187 H 154 H 142 H (70-99) mg/dL Calcium (8.5-10.1) mg/dL Magnesium (1.8-2.4) mg/dL Total Bilirubin (0.2-1.0) mg/dL AST (15-37) U/L ALT (16-63) U/L Alkaline Phosphatase (46-116) U/L Total Protein (6.4-8.2) g/dl Albumin (3.4-5.0) g/dl Globulin gm/dL Albumin/Globulin Ratio (1-2) 05/08/21 05/08/21 05/08/21 Range/Units 00:00 01:00 01:59 WBC (4.23-9.07) K/mm3 RBC (4.63-6.08) M/mm3 Hgb (13.7-17.5) gm/dl Hct (40.1-51.0) % MCV (79.0-92.2) fl MCH (25.7-32.2) pg MCHC (32.2-35.5) g/dl RDW Std Deviation (35.1-43.9) fL Plt Count (163-337) K/mm3 MPV (9.4-12.3) fl VBG pH (7.30-7.40) VBG pCO2 (41-51) mmHg VBG pO2 (40-80) mmHG VBG HCO3 (22-26) meq/L VBG O2 Saturation VBG Base Excess (-4.0-2.0) O2 Delivery Device Sodium (136-145) mEq/L Potassium (3.5-5.1) mEq/L Chloride (98-107) mEq/L Carbon Dioxide (21-32) mEq/L Anion Gap (5-15) BUN (7-18) mg/dL Creatinine (0.7-1.3) mg/dL Est Cr Clr Drug Dosing mL/min Estimated GFR (MDRD) (>60) mL/min BUN/Creatinine Ratio (14-18) Glucose (70-99) mg/dL POC Glucose 205 H 235 H 190 H (70-99) mg/dL Calcium (8.5-10.1) mg/dL Magnesium (1.8-2.4) mg/dL Total Bilirubin (0.2-1.0) mg/dL AST (15-37) U/L ALT (16-63) U/L Alkaline Phosphatase (46-116) U/L Total Protein (6.4-8.2) g/dl Albumin (3.4-5.0) g/dl Globulin gm/dL Albumin/Globulin Ratio (1-2) 05/08/21 05/08/21 05/08/21 Range/Units 02:28 03:00 03:57 WBC (4.23-9.07) K/mm3 RBC (4.63-6.08) M/mm3 Hgb (13.7-17.5) gm/dl Hct (40.1-51.0) % MCV (79.0-92.2) fl MCH (25.7-32.2) pg MCHC (32.2-35.5) g/dl RDW Std Deviation (35.1-43.9) fL Plt Count (163-337) K/mm3 MPV (9.4-12.3) fl VBG pH (7.30-7.40) VBG pCO2 (41-51) mmHg VBG pO2 (40-80) mmHG VBG HCO3 (22-26) meq/L VBG O2 Saturation VBG Base Excess (-4.0-2.0) O2 Delivery Device Sodium 142 (136-145) mEq/L Potassium 3.8 (3.5-5.1) mEq/L Chloride 109 H (98-107) mEq/L Carbon Dioxide 20 L (21-32) mEq/L Anion Gap 16.8 H (5-15) BUN 6 L (7-18) mg/dL Creatinine 1.0 (0.7-1.3) mg/dL Est Cr Clr Drug Dosing 88.64 mL/min Estimated GFR (MDRD) > 60 (>60) mL/min BUN/Creatinine Ratio 6.0 L (14-18) Glucose 176 H (70-99) mg/dL POC Glucose 122 H 123 H (70-99) mg/dL Calcium 7.7 L (8.5-10.1) mg/dL Magnesium 1.8 (1.8-2.4) mg/dL Total Bilirubin (0.2-1.0) mg/dL AST (15-37) U/L ALT (16-63) U/L Alkaline Phosphatase (46-116) U/L Total Protein (6.4-8.2) g/dl Albumin (3.4-5.0) g/dl Globulin gm/dL Albumin/Globulin Ratio (1-2) 05/08/21 05/08/21 05/08/21 Range/Units 05:04 05:37 05:37 WBC 5.40 (4.23-9.07) K/mm3 RBC 2.98 L (4.63-6.08) M/mm3 Hgb 9.1 L D (13.7-17.5) gm/dl Hct 26.7 L (40.1-51.0) % MCV 89.6 (79.0-92.2) fl MCH 30.5 (25.7-32.2) pg MCHC 34.1 (32.2-35.5) g/dl RDW Std Deviation 43.2 (35.1-43.9) fL Plt Count 271 D (163-337) K/mm3 MPV 8.3 L (9.4-12.3) fl VBG pH (7.30-7.40) VBG pCO2 (41-51) mmHg VBG pO2 (40-80) mmHG VBG HCO3 (22-26) meq/L VBG O2 Saturation VBG Base Excess (-4.0-2.0) O2 Delivery Device Sodium 142 (136-145) mEq/L Potassium 4.0 (3.5-5.1) mEq/L Chloride 108 H (98-107) mEq/L Carbon Dioxide 26 (21-32) mEq/L Anion Gap 12.0 (5-15) BUN 5 L (7-18) mg/dL Creatinine 0.8 (0.7-1.3) mg/dL Est Cr Clr Drug Dosing 113.36 mL/min Estimated GFR (MDRD) > 60 (>60) mL/min BUN/Creatinine Ratio 6.3 L (14-18) Glucose 168 H (70-99) mg/dL POC Glucose 164 H (70-99) mg/dL Calcium 8.2 L (8.5-10.1) mg/dL Magnesium (1.8-2.4) mg/dL Total Bilirubin 0.3 (0.2-1.0) mg/dL AST 38 H (15-37) U/L ALT 58 (16-63) U/L Alkaline Phosphatase 195 H (46-116) U/L Total Protein 6.8 (6.4-8.2) g/dl Albumin 2.9 L (3.4-5.0) g/dl Globulin 3.9 gm/dL Albumin/Globulin Ratio 0.7 L (1-2) 05/08/21 05/08/21 05/08/21 Range/Units 05:59 06:51 08:04 WBC (4.23-9.07) K/mm3 RBC (4.63-6.08) M/mm3 Hgb (13.7-17.5) gm/dl Hct (40.1-51.0) % MCV (79.0-92.2) fl MCH (25.7-32.2) pg MCHC (32.2-35.5) g/dl RDW Std Deviation (35.1-43.9) fL Plt Count (163-337) K/mm3 MPV (9.4-12.3) fl VBG pH (7.30-7.40) VBG pCO2 (41-51) mmHg VBG pO2 (40-80) mmHG VBG HCO3 (22-26) meq/L VBG O2 Saturation VBG Base Excess (-4.0-2.0) O2 Delivery Device Sodium (136-145) mEq/L Potassium (3.5-5.1) mEq/L Chloride (98-107) mEq/L Carbon Dioxide (21-32) mEq/L Anion Gap (5-15) BUN (7-18) mg/dL Creatinine (0.7-1.3) mg/dL Est Cr Clr Drug Dosing mL/min Estimated GFR (MDRD) (>60) mL/min BUN/Creatinine Ratio (14-18) Glucose (70-99) mg/dL POC Glucose 159 H 115 H 222 H (70-99) mg/dL Calcium (8.5-10.1) mg/dL Magnesium (1.8-2.4) mg/dL Total Bilirubin (0.2-1.0) mg/dL AST (15-37) U/L ALT (16-63) U/L Alkaline Phosphatase (46-116) U/L Total Protein (6.4-8.2) g/dl Albumin (3.4-5.0) g/dl Globulin gm/dL Albumin/Globulin Ratio (1-2) 05/08/21 05/08/21 05/08/21 Range/Units 09:01 10:10 11:09 WBC (4.23-9.07) K/mm3 RBC (4.63-6.08) M/mm3 Hgb (13.7-17.5) gm/dl Hct (40.1-51.0) % MCV (79.0-92.2) fl MCH (25.7-32.2) pg MCHC (32.2-35.5) g/dl RDW Std Deviation (35.1-43.9) fL Plt Count (163-337) K/mm3 MPV (9.4-12.3) fl VBG pH (7.30-7.40) VBG pCO2 (41-51) mmHg VBG pO2 (40-80) mmHG VBG HCO3 (22-26) meq/L VBG O2 Saturation VBG Base Excess (-4.0-2.0) O2 Delivery Device Sodium (136-145) mEq/L Potassium (3.5-5.1) mEq/L Chloride (98-107) mEq/L Carbon Dioxide (21-32) mEq/L Anion Gap (5-15) BUN (7-18) mg/dL Creatinine (0.7-1.3) mg/dL Est Cr Clr Drug Dosing mL/min Estimated GFR (MDRD) (>60) mL/min BUN/Creatinine Ratio (14-18) Glucose (70-99) mg/dL POC Glucose 350 H 322 H 170 H (70-99) mg/dL Calcium (8.5-10.1) mg/dL Magnesium (1.8-2.4) mg/dL Total Bilirubin (0.2-1.0) mg/dL AST (15-37) U/L ALT (16-63) U/L Alkaline Phosphatase (46-116) U/L Total Protein (6.4-8.2) g/dl Albumin (3.4-5.0) g/dl Globulin gm/dL Albumin/Globulin Ratio (1-2) Result Diagrams: 05/08/21 05:37 05/08/21 05:37 Sepsis Event Note - Evaluation Sepsis Screening Result: Possible Sepsis Risk - Focused Exam Vital Signs: Vital Signs Temp Pulse Resp BP Pulse Ox 05/08/21 08:00 97.6 F 110 H 16 125/89 100 05/08/21 04:00 97.3 F 18 120/77 100 05/08/21 00:00 97.7 F 16 118/85 100 - Problem List Review Problem List Initiated/Reviewed/Updated: Yes - My Orders Last 24 Hours: My Active Orders 05/07/21 Lunch Consistent Carbohydrate Diet [DIET] 05/07/21 14:00 Insulin Regular, Human [HumuLIN R] 100 unit Sodium Chloride 0.9% [Normal Saline] 99 ml IV TITRATE 05/07/21 21:00 Sodium Bicarbonate 650 mg PO TID 05/08/21 10:12 guaiFENesin [Mucinex] 600 mg PO BID PRN 05/08/21 10:13 Benzonatate [Tessalon Perles] 200 mg PO Q8H PRN 05/08/21 17:00 Insulin Lispro [HumaLOG] See Protocol SUBCUT QIDACANDBED 05/08/21 21:00 Insulin Glarg,Human.Rec.Analog [LantUS] 16 unit SUBCUT BEDTIME - Plan Plan:: 26-year-old male with a past medical history as listed above who presents to the [facility] emergency department with cold-like symptoms and a cough. Found to be septic by definition from acute pneumonia as well as in a diabetic ketoacidotic state. 1. Diabetic ketoacidosis. Continue LR for now at 125 cc/h. Patient will transition from insulin infusion to hyperglycemia protocol. Mild bolus of subcutaneous lispro has been given at 4 units. We will shut off insulin infusion half hour later. Proceed to moderate sliding scale for now and titration as necessary. Repeat BMP this afternoon at 4 PM. Patient no longer acidotic as per repeat VBG's. Patient may eat. 2. Sepsis without shock. Empiric antibiotics with Rocephin and azithromycin. Continue crystalloid hydration. Lactic acid now normal Cultures pending. Secondary to acute community-acquired pneumonia. Sepsis physiology resolved. 3. Community-acquired pneumonia. Plan as above. Respiratory therapy consult. Incentive spirometry encouraged. CODE STATUS: Full code. DVT prophylaxis with heparin.
[2021-05-08] MEDS: Insulin Lispro 100 UNIT/ML 10 ML Vial SUBCUT SCH ×4 (11:51→21:29)
[2021-05-08] MEDS: Benzonatate 100 MG Cap PO PRN ×2 (15:05→23:00)
[2021-05-08 16:16] VITALS: PULSE 116
[2021-05-08] MEDS: guaiFENesin/Dextromethorphan 100-10 MG/5 ML Soln 5 ML Cup PO PRN ×2 (18:41→23:00)
[2021-05-08] MEDS ORDERED: Insulin Glarg,Human.Rec.Analog 100 Unit/ML SUBCUT SCH (21:00)
[2021-05-09] MEDS: Heparin Sodium 5,000 Units/ML Vial SUBCUT SCH (00:48)
[2021-05-09] MEDS: Lactated Ringers 1,000 ML IV SCH (02:50)
[2021-05-09 04:37] VITALS: BP 124/89
[2021-05-09] MEDS: Insulin Lispro 100 UNIT/ML 10 ML Vial SUBCUT SCH (06:05)
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
== END 2021-05-09 08:30 | disposition home or self-care (01) | DRG 871 ==
LOC: JD.ED 00:36 → JD.ICU 11:32
PROVIDERS: ADMIT Hospitalist; ATTEND Hospitalist
DX: A41.89 Other specified sepsis (principal); N17.9 Acute kidney failure, unspecified; E10.10 Type 1 diabetes mellitus with ketoacidosis without coma; J18.9 Pneumonia, unspecified organism; I10 Essential (primary) hypertension; J30.9 Allergic rhinitis, unspecified; E10.21 Type 1 diabetes mellitus with diabetic nephropathy; Z79.4 Long term (current) use of insulin; Z20.822 Contact with and (suspected) exposure to COVID-19; H54.7 Unspecified visual loss; E10.65 Type 1 diabetes mellitus with hyperglycemia; N28.9 Disorder of kidney and ureter, unspecified; Z87.891 Personal history of nicotine dependence; Z86.16 Personal history of COVID-19; Z79.2 Long term (current) use of antibiotics
CPT/HCPCS: 36415; 36600; 71046; 71275; 80048; 80051; 80053; 80306; 81001; 82009 ×2; 82803 ×2; 82947 ×8; 83605 ×2; 84132; 84484; 85025; 85379; 87635; 93005; J0456; J0696; J1644; J1815 ×2; J7030; J7050; J7120 ×3; 83735; 85027; 87070; 87205; 93010; 96365; 96367; 99222; 99232; 99239; 99285; 99285-25; A9270-GY; U0002

== ENCOUNTER 2021-07-27 13:59 | Emergency (ER) | payer MEDICAID ==
[2021-07-27 14:10] VITALS: BP 136/87; PULSE 106
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
== END 2021-07-27 14:30 | disposition home or self-care (01) ==
LOC: JD.ED 13:59
DX: E10.9 Type 1 diabetes mellitus without complications (principal); I10 Essential (primary) hypertension; Z76.0 Encounter for issue of repeat prescription; Z87.891 Personal history of nicotine dependence; Z79.899 Other long term (current) drug therapy
CPT/HCPCS: 82947; 99282

== ENCOUNTER 2021-09-27 01:25 | Inpatient (IN) | payer MEDICAID ==
--- NOTE | 2021-09-27 01:44 | EDM.PDOC ---
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 Scrn (CUTOFF=25) Ur Amphetamine Screen (ZRMXRV=651) U Methamphetamines Scrn (CBUKMZ=033) U Benzodiazepines Scrn (YQYZLO=107) U Cocaine Metab Screen (WUIVJS=908) U Marijuana (THC) Screen (CUTOFF=50) Ethyl Alcohol (0.00) gm% Ketones (0.0-0.3) mM Influenza Type A RNA (NEGATIVE) Influenza Type B RNA (NEGATIVE) SARS-CoV-2 RNA (MACRINA) (NEGATIVE) Meds: Medications Generic Name Dose Route Start Last Admin Trade Name Freq PRN Reason Stop Dose Admin Insulin Human Regular 100 unit 100 mls @ 6.35 mls/hr 09/27/21 02:00 09/27/21 07:41 / Sodium Chloride IV 0.05 units/kg/hr TITRATE PRINCE 3 mls/hr Titration Protocol 0.1 UNITS/KG/HR Sodium Chloride 1,000 mls @ 250 mls/hr 09/27/21 03:00 09/27/21 06:49 Normal Saline IV 999 mls/hr ASDIRECTED PRINCE Infusion Lactated Ringer's 1,000 mls @ 999 mls/hr 09/27/21 08:30 Ringers, Lactated IV ASDIRECTED PRINCE Discontinued Medications Generic Name Dose Route Start Last Admin Trade Name Freq PRN Reason Stop Dose Admin Acetaminophen 650 mg 09/27/21 07:25 09/27/21 07:36 Acetaminophen 325 Mg Tab PO 09/27/21 07:26 650 mg ONETIME ONE Administration Sodium Chloride 1,000 mls @ 999 mls/hr 09/27/21 01:46 09/27/21 01:52 Normal Saline IV 09/27/21 02:46 999 mls/hr ONETIME ONE Administration Sodium Chloride 1,000 mls @ 999 mls/hr 09/27/21 02:56 09/27/21 04:21 Normal Saline IV 09/27/21 03:56 999 mls/hr ONETIME ONE Administration Sodium Chloride 1,000 mls @ 999 mls/hr 09/27/21 02:56 09/27/21 03:11 Normal Saline IV 09/27/21 03:56 999 mls/hr ONETIME ONE Administration Sodium Chloride 1,000 mls @ 999 mls/hr 09/27/21 06:19 09/27/21 07:36 Normal Saline IV 09/27/21 07:19 999 mls/hr ONETIME ONE Administration Insulin Human Regular 6 unit 09/27/21 01:50 09/27/21 02:03 Insulin Regular, Human 100 Units/Ml 3 Ml Vial IV 09/27/21 01:51 6 unit ONETIME ONE Administration Ondansetron HCl 4 mg 09/27/21 01:51 09/27/21 02:03 Ondansetron 4 Mg/2 Ml Sdv IVPUSH 09/27/21 01:52 4 mg ONETIME ONE Administration - Re-Assessments/Exams Free Text/Narrative Re-Assessment/Exam: 09/27/21 08:23 Care has been assumed from Dr. Mobley at change of shift. Blood sugar at this time is 347. Patient will remain on insulin drip at 3 units an hour. He will not be eating any breakfast due to nausea. He will start his fourth liter of IV fluids which will be Ringer's lactate at open.Repeat BM P has been completed. Sodium is now up to 137. Potassium is 4.6 with a chloride of 99 and a bicarb coming up from 5-11. Anion gap is down from 41.7-31.6. BUN is 46 down from 56. Creatinine is 2.0 down from 2.6. GFR is improved from 30-41. BUN/creatinine ratio went up slightly at 23.0. Glucose is 276 in the lab and now 347 at the bedside. Lactic acid went up to 4.3 which is unusual in spite of aggressive fluid resuscitation. Calcium is slightly low at 7.5. Sepsis Event Note (ED) - Focused Exam Vital Signs: Vital Signs Temp Pulse Resp BP Pulse Ox 09/27/21 01:38 35.9 C L 134 H 20 102/80 100 - My Orders Last 24 Hours: My Active Orders 09/27/21 08:30 Lactated Ringers [Ringers, Lactated] 1,000 ml IV ASDIRECTED - Assessment/Plan Last 24 Hours: My Active Orders 09/27/21 08:30 Lactated Ringers [Ringers, Lactated] 1,000 ml IV ASDIRECTED
[2021-09-27] MEDS ORDERED: Sodium Chloride 0.9% 1,000 ML IV ONE ×4 (01:46→06:19)
[2021-09-27] MEDS ORDERED: Insulin Regular, Human 100 Units/ML 3 ML Vial IV ONE (01:50)
[2021-09-27] MEDS ORDERED: Ondansetron 4 MG/2 ML SDV IVPUSH ONE (01:51)
[2021-09-27 02:36] LABS: CORONAVIRUS COVID-19 NAA NEGATIVE (NEGATIVE)
[2021-09-27] MEDS ORDERED: Sodium Chloride 0.9% 1,000 ML IV SCH (03:00)
[2021-09-27] MEDS ORDERED: Acetaminophen 325 MG Tab PO ONE (07:25)
[2021-09-27] MEDS: Lactated Ringers 1,000 ML IV SCH ×2 (08:41→10:13)
[2021-09-27] MEDS ORDERED: Albuterol 0.083% 2.5 MG/3 ML Neb Soln NEB PRN (10:16)
[2021-09-27] MEDS ORDERED: Acetaminophen 325 MG Tab PO PRN (10:16)
--- NOTE | 2021-09-27 10:21 | PCM.HP.2 ---
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 Protein (6.4-8.2) g/dl Albumin (3.4-5.0) g/dl Globulin gm/dL Albumin/Globulin Ratio (1-2) Lipase (73-393) U/L Urine Color (Yellow) Urine Appearance (Clear) Urine pH (5.0-8.0) Ur Specific Sunset (1.005-1.030) Urine Protein (Negative) Urine Glucose (UA) (Negative) Urine Ketones (Negative) Urine Occult Blood (Negative) Urine Nitrite (Negative) Urine Bilirubin (Negative) Urine Urobilinogen (0.2-1.0) Ur Leukocyte Esterase (Negative) Urine RBC (0-5) /hpf Urine WBC (0-5) /hpf Ur Epithelial Cells (0-5) /hpf Amorphous Sediment (NOT SEEN) /hpf Urine Bacteria (FEW) /hpf Urine Mucus (FEW) /hpf Urine Opiates Screen (ABBCIZ=703) Ur Buprenorphine Scrn (CUTOFF=10) Ur Oxycodone Screen (PJW1IS=121) Urine Methadone Screen (RIH3FZ=651) Ur Propoxyphene Screen (QCOSYS=872) Ur Barbiturates Screen (TUAYCP=204) Ur Tricyclics Screen (OSQJOM=623) Ur Phencyclidine Scrn (CUTOFF=25) Ur Amphetamine Screen (GVXFSB=968) U Methamphetamines Scrn (YAQBTG=202) U Benzodiazepines Scrn (ELQXZL=561) U Cocaine Metab Screen (GYCLUE=083) U Marijuana (THC) Screen (CUTOFF=50) Ethyl Alcohol (0.00) gm% Ketones (0.0-0.3) mM Influenza Type A RNA (NEGATIVE) Influenza Type B RNA (NEGATIVE) SARS-CoV-2 RNA (MACRINA) (NEGATIVE) Result Diagrams: 09/27/21 01:48 09/27/21 11:07 Sepsis Event Note - Evaluation Sepsis Screening Result: No Definite Risk - Focused Exam Vital Signs: Vital Signs Temp Pulse Pulse Resp BP Pulse Ox 09/27/21 10:16 97.5 F 113 H 30 H 121/71 100 09/27/21 01:38 96.7 F L 134 H 20 102/80 100 - Problem List (1) Pyuria SNOMED Code(s): 7528866, 173767485 ICD Code: R82.81 - PYURIA Status: Acute Current Visit: Yes (2) Acute renal insufficiency SNOMED Code(s): 830338580 ICD Code: N28.9 - DISORDER OF KIDNEY AND URETER, UNSPECIFIED Status: Acute Current Visit: Yes (3) Upper GI bleed SNOMED Code(s): 91722995 ICD Code: K92.2 - GASTROINTESTINAL HEMORRHAGE, UNSPECIFIED Status: Acute Current Visit: Yes (4) DKA (diabetic ketoacidosis) SNOMED Code(s): 566715843, 968914139 ICD Code: E11.10 - TYPE 2 DIABETES MELLITUS WITH KETOACIDOSIS WITHOUT COMA Status: Acute Current Visit: Yes Problem List Initiated/Reviewed/Updated: Yes Orders Last 24hrs: Active Orders 24 hr Category Date Time Status Patient Status [ADT] Routine ADT 09/27/21 09:13 Active Accu Check [Blood Glucose Check, Bedside] [RC] ONETIME Care 09/27/21 06:30 Active Blood Glucose Check, Bedside [RC] ONETIME Care 09/27/21 01:41 Active Blood Glucose Check, Bedside [RC] Q1HR Care 09/27/21 03:00 Active Oxygen Therapy [RC] PRN Care 09/27/21 10:15 Active RT Aerosol Therapy [RC] ASDIRECTED Care 09/27/21 10:17 Active Up ad Nichelle [RC] ASDIRECTED Care 09/27/21 10:15 Active VTE/DVT Education [RC] PER UNIT ROUTINE Care 09/27/21 10:15 Active Vital Signs [RC] Q4H Care 09/27/21 10:15 Active Consult to Diabetic Nurse Specialist [CONS] Routine Cons 09/27/21 10:16 Active Nothing per Oral Now Diet [DIET] Diet 09/27/21 Breakfast Active BASIC METABOLIC PANEL,BMP [CHEM] Routine Lab 09/27/21 10:11 Ordered LACTIC ACID [CHEM] Routine Lab 09/27/21 10:11 Ordered MAGNESIUM [CHEM] Routine Lab 09/27/21 10:11 Ordered PH,VENOUS [BG] Routine Lab 09/27/21 10:12 Ordered Acetaminophen [TylenoL] Med 09/27/21 10:16 Ordered 650 mg PO Q4H PRN Albuterol [Proventil Neb Soln] Med 09/27/21 10:16 Ordered 2.5 mg NEB Q2H PRN Insulin Regular, Human [HumuLIN R] 100 unit Med 09/27/21 02:00 Active Sodium Chloride 0.9% [Normal Saline] 99 ml IV TITRATE Lactated Ringers [Ringers, Lactated] 1,000 ml Med 09/27/21 08:30 Active IV ASDIRECTED Metoprolol Succinate [Toprol XL] Med 09/27/21 21:00 Active 50 mg PO BEDTIME Ondansetron [Zofran] Med 09/27/21 10:16 Ordered 4 mg IV Q6H PRN Sodium Chloride 0.9% [Normal Saline] 1,000 ml Med 09/27/21 03:00 Active IV ASDIRECTED Resuscitation Status Routine Resus Stat 09/27/21 10:15 Ordered Medication Orders Acetaminophen (Acetaminophen 325 Mg Tab) 650 mg PO Q4H PRN PRN Reason: Pain (Mild 1-3)/fever Albuterol (Albuterol 0.083% 2.5 Mg/3 Ml Neb Soln) 2.5 mg NEB Q2H PRN PRN Reason: Shortness Of Breath/wheezing Insulin Human Regular 100 unit (/ Sodium Chloride) 100 mls @ 6.35 mls/hr IV TITRATE PRINCE; Protocol Last Titration: 09/27/21 09:24 Dose: 0.02 units/kg/hr, 1 mls/hr Documented by: RUBY Cosigned by: DENVER Titration: 09/27/21 07:41 Dose: 0.05 units/kg/hr, 3 mls/hr Documented by: RUBY Cosigned by: HERMMIC Titration: 09/27/21 05:21 Dose: 0 units/kg/hr, 0 mls/hr Documented by: LYNN Cosigned by: JOCELYNE Admin: 09/27/21 02:04 Dose: 0.1 units/kg/hr, 6.35 mls/hr Documented by: MEGAN Cosigned by: LYNN Sodium Chloride (Normal Saline) 1,000 mls @ 250 mls/hr IV ASDIRECTED [facility] Last Infusion: 09/27/21 06:49 Dose: 999 mls/hr Documented by: Admin: 09/27/21 05:20 Dose: 250 mls/hr Documented by: LYNN Lactated Ringer's (Ringers, Lactated) 1,000 mls @ 999 mls/hr IV ASDIRECTED [facility] Last Admin: 09/27/21 10:13 Dose: 999 mls/hr Documented by: Infusion: 09/27/21 09:42 Dose: 999 mls/hr Documented by: Admin: 09/27/21 08:41 Dose: 999 mls/hr Documented by: RUBY Metoprolol Succinate (Metoprolol Succinate 50 Mg Tab.Er) 50 mg PO BEDTIME [facility] Ondansetron HCl (Ondansetron 4 Mg/2 Ml Sdv) 4 mg IV Q6H PRN PRN Reason: Nausea/Vomiting Assessment/Plan Comment:: 26-year-old poorly controlled, noncompliant patient with type 1 diabetes presents emergency department after 5 days of emesis. DKA * Initial symptoms started 5 days prior to admission with vomiting * Patient denies any changes prior to starting vomiting. Denies any fever or chills. Denies noncompliance with his insulin regimen. * 2 days prior to admission his Dexcom stopped working * Unknown how he was giving his insulin during that time * Initial glucose 674, anion gap 39.1, bicarb 7, Lactic acid 2.7, ketones 17.38 * Initial ABG: pH 7.11, PCO2 14.1, PO2 71.0, bicarb 4.3 * Aggressive fluid resuscitation started in the emergency department with insulin bolus and IV drip * Negative drug and alcohol screen Acute renal injury * Initial creatinine 2.9, estimated GFR of 27 * Baseline creatinine normal around 1.0 with estimated GFR greater than 60 * Likely secondary to prerenal disease/hypovolemia * Improving with IV fluid boluses Upper GI bleed Microcytic anemia * Patient reports hematemesis yesterday * Likely secondary to gastritis/esophagitis from recurrent vomiting * Initial hemoglobin low at 12.7 which will be expected to decrease more with rehydration * No hematemesis reported since presentation to the emergency department Pyuria * UA WBCs 5-10 * 0-5 epithelial cells * Few bacteria * UA also significant for 2+ protein, 4+ ketones, 1+ occult blood but micro only shows 0-5 RBCs raising the possibility of myoglobinuria, bilirubin 3+. Nit rite was negative. * Although this is likely a sterile pyuria patient will be placed on 1 g of Rocephin while we await urine cultures. History of hypertension, diabetic nephropathy * On metoprolol * Not on LENARD inhibitor or ARB * Consider LENARD inhibitor/ARB when renal function improves Plan * Admit to ICU * Continue aggressive rehydration * When blood sugars are between 150 and 200 switch to D5 half-normal saline with 20 mEq of KCl at 200 mL/h titrated between 150 and 250. * Continue insulin drip and titrate to keep blood sugars between 150 and 250 * Fingerstick blood sugar every 1 hour * N.p.o. until ketoacidosis is resolved * Follow BMP every 4-6 hours. Follow mag and phosphorus as needed. * Acute urine injury should improve with continued rehydration and correction of his acidosis * Start pantoprazole 40 mg daily * Follow H&H * Rocephin 1 g every 24 hours until urine cultures return * Microalbumin to creatinine ratio * CODE STATUS: Full code - Mortality Measure Prognosis:: Good
[2021-09-27] MEDS ORDERED: D5 1/2 NS w/ 20 mEq/L KCl 1,000 ML IV SCH ×2 (11:00→13:45)
[2021-09-27] MEDS: Pantoprazole 40 MG Vial IVPUSH SCH (12:49)
[2021-09-27] MEDS: Ondansetron 4 MG/2 ML SDV IV PRN ×2 (12:49→18:00)
[2021-09-27] MEDS ORDERED: Magnesium Sulfate/Water 4 GM in Premix Bag 1 BAG IV ONE (13:00)
[2021-09-27] MEDS ORDERED: cefTRIAXone 1 GM in Sodium Chloride 0.9% 100 ML IV SCH (13:00)
[2021-09-27] MEDS ORDERED: Lactated Ringers 1,000 ML IV SCH (16:15)
--- NOTE | 2021-09-27 16:32 | CR ---
EXAM: XR CHEST 1 VIEW LOCATION: [facility] DATE/TIME: 09/27/2021 12:43 PM INDICATION: Sob dka COMPARISON: 05/07/2021 IMPRESSION: Negative chest. SIGNED BY: Avinash Renteria MD 09/27/2021 2:39 PM MTDLaura
[2021-09-27 16:40] LABS: HEMOGLOBIN A1C 8.9 %
[2021-09-27] MEDS: D5 1/2 NS w/ 20 mEq/L KCl 1,000 ML IV SCH (18:32)
[2021-09-27 20:12] VITALS: PULSE 114
[2021-09-27] MEDS ORDERED: Metoprolol Succinate 50 MG Tab.ER PO SCH (21:00)
[2021-09-27] MEDS: Potassium Chloride 10 MEQ in Premix Bag 1 BAG IV SCH ×2 (21:23→22:25)
[2021-09-28] MEDS: D5 1/2 NS w/ 20 mEq/L KCl 1,000 ML IV SCH (00:03)
[2021-09-28] MEDS ORDERED: D5 1/2 NS w/ 20 mEq/L KCl 1,000 ML IV SCH (01:00)
[2021-09-28] MEDS: Pantoprazole 40 MG Vial IVPUSH SCH ×2 (02:10→12:39)
--- NOTE | 2021-09-28 06:41 | PCM.PN ---
- General Info Date of Service: 09/28/21 Subjective Update: Patient is alert and orientated x3 this AM. Patient states that he feels well this AM. He denies any further nausea or vomiting. States that he is hungry this a.m. Patient tells me that he normally at home takes 16 units of his Lantus in the a.m. and then has a sliding scale insulin that he uses. Remainder review of systems is negative except those listed above. - Patient Data Vitals - Most Recent: Last Vital Signs Temp 97.6 F 09/28/21 04:00 Pulse 114 H 09/27/21 20:12 Resp 20 09/28/21 04:00 BP 126/86 09/28/21 04:00 Pulse Ox 100 09/28/21 04:00 Weight - Most Recent: 147 lb 6.4 oz I&O - Last 24 Hours: Intake & Output 09/27/21 09/27/21 09/28/21 14:59 22:59 06:59 Intake Total 2399 Output Total 900 900 Balance -900 1499 Lab Results Last 24 Hours: Laboratory Results - last 24 hr 09/27/21 09/27/21 09/27/21 Range/Units 03:07 06:34 06:34 WBC (4.23-9.07) K/mm3 RBC (4.63-6.08) M/mm3 Hgb (13.7-17.5) gm/dl Hct (40.1-51.0) % MCV (79.0-92.2) fl MCH (25.7-32.2) pg MCHC (32.2-35.5) g/dl RDW Std Deviation (35.1-43.9) fL Plt Count (163-337) K/mm3 MPV (9.4-12.3) fl Neut % (Auto) (34.0-67.9) % Lymph % (Auto) (21.8-53.1) % [place] % (Auto) (5.3-12.2) % Eos % (Auto) (0.8-7.0) Baso % (Auto) (0.1-1.2) % Neut # (Auto) (1.78-5.38) K/mm3 Lymph # (Auto) (1.32-3.57) K/mm3 [place] # (Auto) (0.30-0.82) K/mm3 Eos # (Auto) (0.04-0.54) K/mm3 Baso # (Auto) (0.01-0.08) K/mm3 VBG pH (7.30-7.40) Sodium 137 (136-145) mEq/L Potassium 4.6 (3.5-5.1) mEq/L Chloride 99 (98-107) mEq/L Carbon Dioxide 11 L (21-32) mEq/L Anion Gap 31.6 H (5-15) BUN 46 H (7-18) mg/dL Creatinine 2.0 H (0.7-1.3) mg/dL Est Cr Clr Drug Dosing 51.16 mL/min Estimated GFR (MDRD) 41 (>60) mL/min BUN/Creatinine Ratio 23.0 H (14-18) Glucose 277 H 276 H (70-99) mg/dL POC Glucose (70-99) mg/dL Hemoglobin A1c ( - 5.6) % Lactic Acid (0.4-2.0) mmol/L Calcium 7.5 L (8.5-10.1) mg/dL Magnesium (1.8-2.4) mg/dL Iron (65-175) ug/dL TIBC (100-400) ug/dL % Saturation (20-55) % Transferrin (202-364) mg/dL Ur Random Creatinine 77.7 (30.0-125.0) mg/dL Ur Random Microalbumin 332.5 H (1.3-20.0) mg/L Microalb/Creat Ratio 427.9 H (0-30) mg/g 09/27/21 09/27/21 09/27/21 Range/Units 07:21 08:18 09:19 WBC (4.23-9.07) K/mm3 RBC (4.63-6.08) M/mm3 Hgb (13.7-17.5) gm/dl Hct (40.1-51.0) % MCV (79.0-92.2) fl MCH (25.7-32.2) pg MCHC (32.2-35.5) g/dl RDW Std Deviation (35.1-43.9) fL Plt Count (163-337) K/mm3 MPV (9.4-12.3) fl Neut % (Auto) (34.0-67.9) % Lymph % (Auto) (21.8-53.1) % [place] % (Auto) (5.3-12.2) % Eos % (Auto) (0.8-7.0) Baso % (Auto) (0.1-1.2) % Neut # (Auto) (1.78-5.38) K/mm3 Lymph # (Auto) (1.32-3.57) K/mm3 [place] # (Auto) (0.30-0.82) K/mm3 Eos # (Auto) (0.04-0.54) K/mm3 Baso # (Auto) (0.01-0.08) K/mm3 VBG pH (7.30-7.40) Sodium (136-145) mEq/L Potassium (3.5-5.1) mEq/L Chloride (98-107) mEq/L Carbon Dioxide (21-32) mEq/L Anion Gap (5-15) BUN (7-18) mg/dL Creatinine (0.7-1.3) mg/dL Est Cr Clr Drug Dosing mL/min Estimated GFR (MDRD) (>60) mL/min BUN/Creatinine Ratio (14-18) Glucose (70-99) mg/dL POC Glucose 318 H 347 H 241 H (70-99) mg/dL Hemoglobin A1c ( - 5.6) % Lactic Acid (0.4-2.0) mmol/L Calcium (8.5-10.1) mg/dL Magnesium (1.8-2.4) mg/dL Iron (65-175) ug/dL TIBC (100-400) ug/dL % Saturation (20-55) % Transferrin (202-364) mg/dL Ur Random Creatinine (30.0-125.0) mg/dL Ur Random Microalbumin (1.3-20.0) mg/L Microalb/Creat Ratio (0-30) mg/g 09/27/21 09/27/21 09/27/21 Range/Units 10:05 10:12 10:51 WBC (4.23-9.07) K/mm3 RBC (4.63-6.08) M/mm3 Hgb (13.7-17.5) gm/dl Hct (40.1-51.0) % MCV (79.0-92.2) fl MCH (25.7-32.2) pg MCHC (32.2-35.5) g/dl RDW Std Deviation (35.1-43.9) fL Plt Count (163-337) K/mm3 MPV (9.4-12.3) fl Neut % (Auto) (34.0-67.9) % Lymph % (Auto) (21.8-53.1) % [place] % (Auto) (5.3-12.2) % Eos % (Auto) (0.8-7.0) Baso % (Auto) (0.1-1.2) % Neut # (Auto) (1.78-5.38) K/mm3 Lymph # (Auto) (1.32-3.57) K/mm3 [place] # (Auto) (0.30-0.82) K/mm3 Eos # (Auto) (0.04-0.54) K/mm3 Baso # (Auto) (0.01-0.08) K/mm3 VBG pH 7.33 (7.30-7.40) Sodium (136-145) mEq/L Potassium (3.5-5.1) mEq/L Chloride (98-107) mEq/L Carbon Dioxide (21-32) mEq/L Anion Gap (5-15) BUN (7-18) mg/dL Creatinine (0.7-1.3) mg/dL Est Cr Clr Drug Dosing mL/min Estimated GFR (MDRD) (>60) mL/min BUN/Creatinine Ratio (14-18) Glucose (70-99) mg/dL POC Glucose 178 H 163 H (70-99) mg/dL Hemoglobin A1c ( - 5.6) % Lactic Acid (0.4-2.0) mmol/L Calcium (8.5-10.1) mg/dL Magnesium (1.8-2.4) mg/dL Iron (65-175) ug/dL TIBC (100-400) ug/dL % Saturation (20-55) % Transferrin (202-364) mg/dL Ur Random Creatinine (30.0-125.0) mg/dL Ur Random Microalbumin (1.3-20.0) mg/L Microalb/Creat Ratio (0-30) mg/g 09/27/21 09/27/21 09/27/21 Range/Units 11:07 11:07 12:02 WBC (4.23-9.07) K/mm3 RBC (4.63-6.08) M/mm3 Hgb (13.7-17.5) gm/dl Hct (40.1-51.0) % MCV (79.0-92.2) fl MCH (25.7-32.2) pg MCHC (32.2-35.5) g/dl RDW Std Deviation (35.1-43.9) fL Plt Count (163-337) K/mm3 MPV (9.4-12.3) fl Neut % (Auto) (34.0-67.9) % Lymph % (Auto) (21.8-53.1) % [place] % (Auto) (5.3-12.2) % Eos % (Auto) (0.8-7.0) Baso % (Auto) (0.1-1.2) % Neut # (Auto) (1.78-5.38) K/mm3 Lymph # (Auto) (1.32-3.57) K/mm3 [place] # (Auto) (0.30-0.82) K/mm3 Eos # (Auto) (0.04-0.54) K/mm3 Baso # (Auto) (0.01-0.08) K/mm3 VBG pH (7.30-7.40) Sodium 138 (136-145) mEq/L Potassium 4.4 (3.5-5.1) mEq/L Chloride 103 (98-107) mEq/L Carbon Dioxide 10 L (21-32) mEq/L Anion Gap 29.4 H (5-15) BUN 35 H (7-18) mg/dL Creatinine 1.8 H (0.7-1.3) mg/dL Est Cr Clr Drug Dosing 56.84 mL/min Estimated GFR (MDRD) 47 (>60) mL/min BUN/Creatinine Ratio 19.4 H (14-18) Glucose 166 H (70-99) mg/dL POC Glucose 169 H (70-99) mg/dL Hemoglobin A1c ( - 5.6) % Lactic Acid 2.0 (0.4-2.0) mmol/L Calcium 7.4 L (8.5-10.1) mg/dL Magnesium 1.6 L (1.8-2.4) mg/dL Iron (65-175) ug/dL TIBC (100-400) ug/dL % Saturation (20-55) % Transferrin (202-364) mg/dL Ur Random Creatinine (30.0-125.0) mg/dL Ur Random Microalbumin (1.3-20.0) mg/L Microalb/Creat Ratio (0-30) mg/g 09/27/21 09/27/21 09/27/21 Range/Units 13:03 14:00 14:58 WBC (4.23-9.07) K/mm3 RBC (4.63-6.08) M/mm3 Hgb (13.7-17.5) gm/dl Hct (40.1-51.0) % MCV (79.0-92.2) fl MCH (25.7-32.2) pg MCHC (32.2-35.5) g/dl RDW Std Deviation (35.1-43.9) fL Plt Count (163-337) K/mm3 MPV (9.4-12.3) fl Neut % (Auto) (34.0-67.9) % Lymph % (Auto) (21.8-53.1) % [place] % (Auto) (5.3-12.2) % Eos % (Auto) (0.8-7.0) Baso % (Auto) (0.1-1.2) % Neut # (Auto) (1.78-5.38) K/mm3 Lymph # (Auto) (1.32-3.57) K/mm3 [place] # (Auto) (0.30-0.82) K/mm3 Eos # (Auto) (0.04-0.54) K/mm3 Baso # (Auto) (0.01-0.08) K/mm3 VBG pH (7.30-7.40) Sodium (136-145) mEq/L Potassium (3.5-5.1) mEq/L Chloride (98-107) mEq/L Carbon Dioxide (21-32) mEq/L Anion Gap (5-15) BUN (7-18) mg/dL Creatinine (0.7-1.3) mg/dL Est Cr Clr Drug Dosing mL/min Estimated GFR (MDRD) (>60) mL/min BUN/Creatinine Ratio (14-18) Glucose (70-99) mg/dL POC Glucose 141 H 321 H 404 H* (70-99) mg/dL Hemoglobin A1c ( - 5.6) % Lactic Acid (0.4-2.0) mmol/L Calcium (8.5-10.1) mg/dL Magnesium (1.8-2.4) mg/dL Iron (65-175) ug/dL TIBC (100-400) ug/dL % Saturation (20-55) % Transferrin (202-364) mg/dL Ur Random Creatinine (30.0-125.0) mg/dL Ur Random Microalbumin (1.3-20.0) mg/L Microalb/Creat Ratio (0-30) mg/g 09/27/21 09/27/21 09/27/21 Range/Units 15:52 15:52 15:52 WBC 8.75 (4.23-9.07) K/mm3 RBC 3.70 L (4.63-6.08) M/mm3 Hgb 9.6 L D (13.7-17.5) gm/dl Hct 28.4 L (40.1-51.0) % MCV 76.8 L (79.0-92.2) fl MCH 25.9 (25.7-32.2) pg MCHC 33.8 (32.2-35.5) g/dl RDW Std Deviation 40.6 (35.1-43.9) fL Plt Count 242 D (163-337) K/mm3 MPV 9.0 L (9.4-12.3) fl Neut % (Auto) 83.0 H (34.0-67.9) % Lymph % (Auto) 8.0 L (21.8-53.1) % [place] % (Auto) 8.8 (5.3-12.2) % Eos % (Auto) 0 L (0.8-7.0) Baso % (Auto) 0.1 (0.1-1.2) % Neut # (Auto) 7.26 H (1.78-5.38) K/mm3 Lymph # (Auto) 0.70 L (1.32-3.57) K/mm3 [place] # (Auto) 0.77 (0.30-0.82) K/mm3 Eos # (Auto) 0.00 L (0.04-0.54) K/mm3 Baso # (Auto) 0.01 (0.01-0.08) K/mm3 VBG pH (7.30-7.40) Sodium 132 L (136-145) mEq/L Potassium 4.6 (3.5-5.1) mEq/L Chloride 98 (98-107) mEq/L Carbon Dioxide 8 L* (21-32) mEq/L Anion Gap 30.6 H (5-15) BUN 30 H (7-18) mg/dL Creatinine 1.7 H (0.7-1.3) mg/dL Est Cr Clr Drug Dosing 60.46 mL/min Estimated GFR (MDRD) 50 (>60) mL/min BUN/Creatinine Ratio 17.6 (14-18) Glucose 472 H* (70-99) mg/dL POC Glucose (70-99) mg/dL Hemoglobin A1c 8.9 H ( - 5.6) % Lactic Acid (0.4-2.0) mmol/L Calcium 7.6 L (8.5-10.1) mg/dL Magnesium (1.8-2.4) mg/dL Iron (65-175) ug/dL TIBC (100-400) ug/dL % Saturation (20-55) % Transferrin (202-364) mg/dL Ur Random Creatinine (30.0-125.0) mg/dL Ur Random Microalbumin (1.3-20.0) mg/L Microalb/Creat Ratio (0-30) mg/g 09/27/21 09/27/21 09/27/21 Range/Units 15:52 16:02 17:03 WBC (4.23-9.07) K/mm3 RBC (4.63-6.08) M/mm3 Hgb (13.7-17.5) gm/dl Hct (40.1-51.0) % MCV (79.0-92.2) fl MCH (25.7-32.2) pg MCHC (32.2-35.5) g/dl RDW Std Deviation (35.1-43.9) fL Plt Count (163-337) K/mm3 MPV (9.4-12.3) fl Neut % (Auto) (34.0-67.9) % Lymph % (Auto) (21.8-53.1) % [place] % (Auto) (5.3-12.2) % Eos % (Auto) (0.8-7.0) Baso % (Auto) (0.1-1.2) % Neut # (Auto) (1.78-5.38) K/mm3 Lymph # (Auto) (1.32-3.57) K/mm3 [place] # (Auto) (0.30-0.82) K/mm3 Eos # (Auto) (0.04-0.54) K/mm3 Baso # (Auto) (0.01-0.08) K/mm3 VBG pH (7.30-7.40) Sodium (136-145) mEq/L Potassium (3.5-5.1) mEq/L Chloride (98-107) mEq/L Carbon Dioxide (21-32) mEq/L Anion Gap (5-15) BUN (7-18) mg/dL Creatinine (0.7-1.3) mg/dL Est Cr Clr Drug Dosing mL/min Estimated GFR (MDRD) (>60) mL/min BUN/Creatinine Ratio (14-18) Glucose (70-99) mg/dL POC Glucose 434 H* 347 H (70-99) mg/dL Hemoglobin A1c ( - 5.6) % Lactic Acid (0.4-2.0) mmol/L Calcium (8.5-10.1) mg/dL Magnesium (1.8-2.4) mg/dL Iron 42 L (65-175) ug/dL TIBC 314 (100-400) ug/dL % Saturation 13 L (20-55) % Transferrin 251 (202-364) mg/dL Ur Random Creatinine (30.0-125.0) mg/dL Ur Random Microalbumin (1.3-20.0) mg/L Microalb/Creat Ratio (0-30) mg/g 09/27/21 09/27/21 09/27/21 Range/Units 17:59 18:57 19:55 WBC (4.23-9.07) K/mm3 RBC (4.63-6.08) M/mm3 Hgb (13.7-17.5) gm/dl Hct (40.1-51.0) % MCV (79.0-92.2) fl MCH (25.7-32.2) pg MCHC (32.2-35.5) g/dl RDW Std Deviation (35.1-43.9) fL Plt Count (163-337) K/mm3 MPV (9.4-12.3) fl Neut % (Auto) (34.0-67.9) % Lymph % (Auto) (21.8-53.1) % [place] % (Auto) (5.3-12.2) % Eos % (Auto) (0.8-7.0) Baso % (Auto) (0.1-1.2) % Neut # (Auto) (1.78-5.38) K/mm3 Lymph # (Auto) (1.32-3.57) K/mm3 [place] # (Auto) (0.30-0.82) K/mm3 Eos # (Auto) (0.04-0.54) K/mm3 Baso # (Auto) (0.01-0.08) K/mm3 VBG pH (7.30-7.40) Sodium 138 (136-145) mEq/L Potassium 3.6 (3.5-5.1) mEq/L Chloride 104 (98-107) mEq/L Carbon Dioxide 16 L (21-32) mEq/L Anion Gap 21.6 H (5-15) BUN 23 H (7-18) mg/dL Creatinine 1.5 H (0.7-1.3) mg/dL Est Cr Clr Drug Dosing 68.53 mL/min Estimated GFR (MDRD) 57 (>60) mL/min BUN/Creatinine Ratio 15.3 (14-18) Glucose 137 H (70-99) mg/dL POC Glucose 214 H 154 H (70-99) mg/dL Hemoglobin A1c ( - 5.6) % Lactic Acid (0.4-2.0) mmol/L Calcium 7.8 L (8.5-10.1) mg/dL Magnesium 2.4 (1.8-2.4) mg/dL Iron (65-175) ug/dL TIBC (100-400) ug/dL % Saturation (20-55) % Transferrin (202-364) mg/dL Ur Random Creatinine (30.0-125.0) mg/dL Ur Random Microalbumin (1.3-20.0) mg/L Microalb/Creat Ratio (0-30) mg/g 09/27/21 09/27/21 09/27/21 Range/Units 20:02 21:05 22:06 WBC (4.23-9.07) K/mm3 RBC (4.63-6.08) M/mm3 Hgb (13.7-17.5) gm/dl Hct (40.1-51.0) % MCV (79.0-92.2) fl MCH (25.7-32.2) pg MCHC (32.2-35.5) g/dl RDW Std Deviation (35.1-43.9) fL Plt Count (163-337) K/mm3 MPV (9.4-12.3) fl Neut % (Auto) (34.0-67.9) % Lymph % (Auto) (21.8-53.1) % [place] % (Auto) (5.3-12.2) % Eos % (Auto) (0.8-7.0) Baso % (Auto) (0.1-1.2) % Neut # (Auto) (1.78-5.38) K/mm3 Lymph # (Auto) (1.32-3.57) K/mm3 [place] # (Auto) (0.30-0.82) K/mm3 Eos # (Auto) (0.04-0.54) K/mm3 Baso # (Auto) (0.01-0.08) K/mm3 VBG pH (7.30-7.40) Sodium (136-145) mEq/L Potassium (3.5-5.1) mEq/L Chloride (98-107) mEq/L Carbon Dioxide (21-32) mEq/L Anion Gap (5-15) BUN (7-18) mg/dL Creatinine (0.7-1.3) mg/dL Est Cr Clr Drug Dosing mL/min Estimated GFR (MDRD) (>60) mL/min BUN/Creatinine Ratio (14-18) Glucose (70-99) mg/dL POC Glucose 137 H 170 H 256 H (70-99) mg/dL Hemoglobin A1c ( - 5.6) % Lactic Acid (0.4-2.0) mmol/L Calcium (8.5-10.1) mg/dL Magnesium (1.8-2.4) mg/dL Iron (65-175) ug/dL TIBC (100-400) ug/dL % Saturation (20-55) % Transferrin (202-364) mg/dL Ur Random Creatinine (30.0-125.0) mg/dL Ur Random Microalbumin (1.3-20.0) mg/L Microalb/Creat Ratio (0-30) mg/g 09/27/21 09/28/21 09/28/21 Range/Units 23:04 00:01 00:12 WBC (4.23-9.07) K/mm3 RBC (4.63-6.08) M/mm3 Hgb (13.7-17.5) gm/dl Hct (40.1-51.0) % MCV (79.0-92.2) fl MCH (25.7-32.2) pg MCHC (32.2-35.5) g/dl RDW Std Deviation (35.1-43.9) fL Plt Count (163-337) K/mm3 MPV (9.4-12.3) fl Neut % (Auto) (34.0-67.9) % Lymph % (Auto) (21.8-53.1) % [place] % (Auto) (5.3-12.2) % Eos % (Auto) (0.8-7.0) Baso % (Auto) (0.1-1.2) % Neut # (Auto) (1.78-5.38) K/mm3 Lymph # (Auto) (1.32-3.57) K/mm3 [place] # (Auto) (0.30-0.82) K/mm3 Eos # (Auto) (0.04-0.54) K/mm3 Baso # (Auto) (0.01-0.08) K/mm3 VBG pH (7.30-7.40) Sodium 135 L (136-145) mEq/L Potassium 4.2 (3.5-5.1) mEq/L Chloride 101 (98-107) mEq/L Carbon Dioxide 13 L (21-32) mEq/L Anion Gap 25.2 H (5-15) BUN 18 (7-18) mg/dL Creatinine 1.7 H (0.7-1.3) mg/dL Est Cr Clr Drug Dosing 60.46 mL/min Estimated GFR (MDRD) 50 (>60) mL/min BUN/Creatinine Ratio 10.6 L (14-18) Glucose 199 H (70-99) mg/dL POC Glucose 245 H 202 H (70-99) mg/dL Hemoglobin A1c ( - 5.6) % Lactic Acid (0.4-2.0) mmol/L Calcium 7.7 L (8.5-10.1) mg/dL Magnesium (1.8-2.4) mg/dL Iron (65-175) ug/dL TIBC (100-400) ug/dL % Saturation (20-55) % Transferrin (202-364) mg/dL Ur Random Creatinine (30.0-125.0) mg/dL Ur Random Microalbumin (1.3-20.0) mg/L Microalb/Creat Ratio (0-30) mg/g 09/28/21 09/28/21 09/28/21 Range/Units 00:59 02:04 03:04 WBC (4.23-9.07) K/mm3 RBC (4.63-6.08) M/mm3 Hgb (13.7-17.5) gm/dl Hct (40.1-51.0) % MCV (79.0-92.2) fl MCH (25.7-32.2) pg MCHC (32.2-35.5) g/dl RDW Std Deviation (35.1-43.9) fL Plt Count (163-337) K/mm3 MPV (9.4-12.3) fl Neut % (Auto) (34.0-67.9) % Lymph % (Auto) (21.8-53.1) % [place] % (Auto) (5.3-12.2) % Eos % (Auto) (0.8-7.0) Baso % (Auto) (0.1-1.2) % Neut # (Auto) (1.78-5.38) K/mm3 Lymph # (Auto) (1.32-3.57) K/mm3 [place] # (Auto) (0.30-0.82) K/mm3 Eos # (Auto) (0.04-0.54) K/mm3 Baso # (Auto) (0.01-0.08) K/mm3 VBG pH (7.30-7.40) Sodium (136-145) mEq/L Potassium (3.5-5.1) mEq/L Chloride (98-107) mEq/L Carbon Dioxide (21-32) mEq/L Anion Gap (5-15) BUN (7-18) mg/dL Creatinine (0.7-1.3) mg/dL Est Cr Clr Drug Dosing mL/min Estimated GFR (MDRD) (>60) mL/min BUN/Creatinine Ratio (14-18) Glucose (70-99) mg/dL POC Glucose 220 H 393 H 412 H* (70-99) mg/dL Hemoglobin A1c ( - 5.6) % Lactic Acid (0.4-2.0) mmol/L Calcium (8.5-10.1) mg/dL Magnesium (1.8-2.4) mg/dL Iron (65-175) ug/dL TIBC (100-400) ug/dL % Saturation (20-55) % Transferrin (202-364) mg/dL Ur Random Creatinine (30.0-125.0) mg/dL Ur Random Microalbumin (1.3-20.0) mg/L Microalb/Creat Ratio (0-30) mg/g 09/28/21 09/28/21 09/28/21 Range/Units 03:59 04:00 05:05 WBC (4.23-9.07) K/mm3 RBC (4.63-6.08) M/mm3 Hgb (13.7-17.5) gm/dl Hct (40.1-51.0) % MCV (79.0-92.2) fl MCH (25.7-32.2) pg MCHC (32.2-35.5) g/dl RDW Std Deviation (35.1-43.9) fL Plt Count (163-337) K/mm3 MPV (9.4-12.3) fl Neut % (Auto) (34.0-67.9) % Lymph % (Auto) (21.8-53.1) % [place] % (Auto) (5.3-12.2) % Eos % (Auto) (0.8-7.0) Baso % (Auto) (0.1-1.2) % Neut # (Auto) (1.78-5.38) K/mm3 Lymph # (Auto) (1.32-3.57) K/mm3 [place] # (Auto) (0.30-0.82) K/mm3 Eos # (Auto) (0.04-0.54) K/mm3 Baso # (Auto) (0.01-0.08) K/mm3 VBG pH (7.30-7.40) Sodium 132 L (136-145) mEq/L Potassium 4.1 (3.5-5.1) mEq/L Chloride 99 (98-107) mEq/L Carbon Dioxide 12 L (21-32) mEq/L Anion Gap 25.1 H (5-15) BUN 17 (7-18) mg/dL Creatinine 1.6 H (0.7-1.3) mg/dL Est Cr Clr Drug Dosing 64.24 mL/min Estimated GFR (MDRD) 53 (>60) mL/min BUN/Creatinine Ratio 10.6 L (14-18) Glucose 420 H* (70-99) mg/dL POC Glucose 413 H* 256 H (70-99) mg/dL Hemoglobin A1c ( - 5.6) % Lactic Acid (0.4-2.0) mmol/L Calcium 7.9 L (8.5-10.1) mg/dL Magnesium (1.8-2.4) mg/dL Iron (65-175) ug/dL TIBC (100-400) ug/dL % Saturation (20-55) % Transferrin (202-364) mg/dL Ur Random Creatinine (30.0-125.0) mg/dL Ur Random Microalbumin (1.3-20.0) mg/L Microalb/Creat Ratio (0-30) mg/g 09/28/21 Range/Units 05:57 WBC (4.23-9.07) K/mm3 RBC (4.63-6.08) M/mm3 Hgb (13.7-17.5) gm/dl Hct (40.1-51.0) % MCV (79.0-92.2) fl MCH (25.7-32.2) pg MCHC (32.2-35.5) g/dl RDW Std Deviation (35.1-43.9) fL Plt Count (163-337) K/mm3 MPV (9.4-12.3) fl Neut % (Auto) (34.0-67.9) % Lymph % (Auto) (21.8-53.1) % [place] % (Auto) (5.3-12.2) % Eos % (Auto) (0.8-7.0) Baso % (Auto) (0.1-1.2) % Neut # (Auto) (1.78-5.38) K/mm3 Lymph # (Auto) (1.32-3.57) K/mm3 [place] # (Auto) (0.30-0.82) K/mm3 Eos # (Auto) (0.04-0.54) K/mm3 Baso # (Auto) (0.01-0.08) K/mm3 VBG pH (7.30-7.40) Sodium (136-145) mEq/L Potassium (3.5-5.1) mEq/L Chloride (98-107) mEq/L Carbon Dioxide (21-32) mEq/L Anion Gap (5-15) BUN (7-18) mg/dL Creatinine (0.7-1.3) mg/dL Est Cr Clr Drug Dosing mL/min Estimated GFR (MDRD) (>60) mL/min BUN/Creatinine Ratio (14-18) Glucose (70-99) mg/dL POC Glucose 210 H (70-99) mg/dL Hemoglobin A1c ( - 5.6) % Lactic Acid (0.4-2.0) mmol/L Calcium (8.5-10.1) mg/dL Magnesium (1.8-2.4) mg/dL Iron (65-175) ug/dL TIBC (100-400) ug/dL % Saturation (20-55) % Transferrin (202-364) mg/dL Ur Random Creatinine (30.0-125.0) mg/dL Ur Random Microalbumin (1.3-20.0) mg/L Microalb/Creat Ratio (0-30) mg/g Med Orders - Current: Current Medications Acetaminophen (Acetaminophen 325 Mg Tab) 650 mg PO Q4H PRN PRN Reason: Pain (Mild 1-3)/fever Albuterol (Albuterol 0.083% 2.5 Mg/3 Ml Neb Soln) 2.5 mg NEB Q2H PRN PRN Reason: Shortness Of Breath/wheezing Insulin Human Regular 100 unit (/ Sodium Chloride) 100 mls @ 6.35 mls/hr IV TITRATE [facility]; Protocol Last Titration: 09/28/21 04:01 Dose: 0.06 units/kg/hr, 3.5 mls/hr Documented by: Ceftriaxone Sodium 1 gm/ (Sodium Chloride) 100 mls @ 200 mls/hr IV Q24H [facility] Last Admin: 09/27/21 12:50 Dose: 200 mls/hr Documented by: Potassium Chloride/Dextrose/Sod Cl (D5 1/2 Ns W/ 20 Meq/L Kcl) 1,000 mls @ 200 mls/hr IV ASDIRECTED [facility] Last Admin: 09/28/21 05:10 Dose: 200 mls/hr Documented by: Metoprolol Succinate (Metoprolol Succinate 50 Mg Tab.Er) 50 mg PO BEDTIME [facility] Last Admin: 09/27/21 20:12 Dose: 50 mg Documented by: Ondansetron HCl (Ondansetron 4 Mg/2 Ml Sdv) 4 mg IV Q6H PRN PRN Reason: Nausea/Vomiting Last Admin: 09/27/21 18:00 Dose: 4 mg Documented by: Pantoprazole Sodium (Pantoprazole 40 Mg Vial) 40 mg IVPUSH Q12H [facility] Last Admin: 09/28/21 02:10 Dose: 40 mg Documented by: Discontinued Medications Acetaminophen (Acetaminophen 325 Mg Tab) 650 mg PO ONETIME ONE Stop: 09/27/21 07:26 Last Admin: 09/27/21 07:36 Dose: 650 mg Documented by: Sodium Chloride (Normal Saline) 1,000 mls @ 999 mls/hr IV ONETIME ONE Stop: 09/27/21 02:46 Last Admin: 09/27/21 01:52 Dose: 999 mls/hr Documented by: Sodium Chloride (Normal Saline) 1,000 mls @ 999 mls/hr IV ONETIME ONE Stop: 09/27/21 03:56 Last Admin: 09/27/21 04:21 Dose: 999 mls/hr Documented by: Sodium Chloride (Normal Saline) 1,000 mls @ 999 mls/hr IV ONETIME ONE Stop: 09/27/21 03:56 Last Admin: 09/27/21 03:11 Dose: 999 mls/hr Documented by: Sodium Chloride (Normal Saline) 1,000 mls @ 250 mls/hr IV ASDIRECTED [facility] Last Infusion: 09/27/21 06:49 Dose: 999 mls/hr Documented by: Sodium Chloride (Normal Saline) 1,000 mls @ 999 mls/hr IV ONETIME ONE Stop: 09/27/21 07:19 Last Admin: 09/27/21 07:36 Dose: 999 mls/hr Documented by: Lactated Ringer's (Ringers, Lactated) 1,000 mls @ 999 mls/hr IV ASDIRECTED [facility] Last Admin: 09/27/21 10:13 Dose: 999 mls/hr Documented by: Potassium Chloride/Dextrose/Sod Cl (D5 1/2 Ns W/ 20 Meq/L Kcl) 1,000 mls @ 200 mls/hr IV ASDIRECTED [facility] Last Admin: 09/27/21 11:31 Dose: 200 mls/hr Documented by: Magnesium Sulfate 4 gm/ Premix 50 mls @ 12.5 mls/hr IV ONETIME ONE Stop: 09/27/21 16:59 Last Admin: 09/27/21 12:20 Dose: 12.5 mls/hr Documented by: Potassium Chloride/Dextrose/Sod Cl (D5 1/2 Ns W/ 20 Meq/L Kcl) 1,000 mls @ 250 mls/hr IV ASDIRECTED [facility] Lactated Ringer's (Ringers, Lactated) 1,000 mls @ 200 mls/hr IV ASDIRECTED [facility] Last Admin: 09/27/21 16:23 Dose: 200 mls/hr Documented by: Potassium Chloride/Dextrose/Sod Cl (D5 1/2 Ns W/ 20 Meq/L Kcl) 1,000 mls @ 150 mls/hr IV ASDIRECTED [facility] Last Admin: 09/28/21 00:03 Dose: 200 mls/hr Documented by: Potassium Chloride 10 meq/ (Premix) 100 mls @ 100 mls/hr IV Q1H [facility] Stop: 09/27/21 23:29 Last Admin: 09/27/21 22:25 Dose: 100 mls/hr Documented by: Insulin Human Regular (Insulin Regular, Human 100 Units/Ml 3 Ml Vial) 6 unit IV ONETIME ONE Stop: 09/27/21 01:51 Last Admin: 09/27/21 02:03 Dose: 6 unit Documented by: Ondansetron HCl (Ondansetron 4 Mg/2 Ml Sdv) 4 mg IVPUSH ONETIME ONE Stop: 09/27/21 01:52 Last Admin: 09/27/21 02:03 Dose: 4 mg Documented by: - Exam General: Alert, Oriented HEENT: Pupils Equal, Pupils Reactive, Other (poor dentition) Neck: Supple Lungs: Clear to Auscultation, Normal Respiratory Effort Cardiovascular: Regular Rate, Regular Rhythm GI/Abdominal Exam: Normal Bowel Sounds, Soft, Non-Tender Extremities: Normal Inspection Peripheral Pulses: 2+: Radial (L), Radial (R) Skin: Warm Neurological: No New Focal Deficit Psy/Mental Status: Alert - Patient Data Lab Results Last 24 hrs: Laboratory Results - last 24 hr 09/27/21 09/27/21 09/27/21 Range/Units 03:07 06:34 06:34 WBC (4.23-9.07) K/mm3 RBC (4.63-6.08) M/mm3 Hgb (13.7-17.5) gm/dl Hct (40.1-51.0) % MCV (79.0-92.2) fl MCH (25.7-32.2) pg MCHC (32.2-35.5) g/dl RDW Std Deviation (35.1-43.9) fL Plt Count (163-337) K/mm3 MPV (9.4-12.3) fl Neut % (Auto) (34.0-67.9) % Lymph % (Auto) (21.8-53.1) % [place] % (Auto) (5.3-12.2) % Eos % (Auto) (0.8-7.0) Baso % (Auto) (0.1-1.2) % Neut # (Auto) (1.78-5.38) K/mm3 Lymph # (Auto) (1.32-3.57) K/mm3 [place] # (Auto) (0.30-0.82) K/mm3 Eos # (Auto) (0.04-0.54) K/mm3 Baso # (Auto) (0.01-0.08) K/mm3 VBG pH (7.30-7.40) Sodium 137 (136-145) mEq/L Potassium 4.6 (3.5-5.1) mEq/L Chloride 99 (98-107) mEq/L Carbon Dioxide 11 L (21-32) mEq/L Anion Gap 31.6 H (5-15) BUN 46 H (7-18) mg/dL Creatinine 2.0 H (0.7-1.3) mg/dL Est Cr Clr Drug Dosing 51.16 mL/min Estimated GFR (MDRD) 41 (>60) mL/min BUN/Creatinine Ratio 23.0 H (14-18) Glucose 277 H 276 H (70-99) mg/dL POC Glucose (70-99) mg/dL Hemoglobin A1c ( - 5.6) % Lactic Acid (0.4-2.0) mmol/L Calcium 7.5 L (8.5-10.1) mg/dL Magnesium (1.8-2.4) mg/dL Iron (65-175) ug/dL TIBC (100-400) ug/dL % Saturation (20-55) % Transferrin (202-364) mg/dL Ur Random Creatinine 77.7 (30.0-125.0) mg/dL Ur Random Microalbumin 332.5 H (1.3-20.0) mg/L Microalb/Creat Ratio 427.9 H (0-30) mg/g 09/27/21 09/27/21 09/27/21 Range/Units 07:21 08:18 09:19 WBC (4.23-9.07) K/mm3 RBC (4.63-6.08) M/mm3 Hgb (13.7-17.5) gm/dl Hct (40.1-51.0) % MCV (79.0-92.2) fl MCH (25.7-32.2) pg MCHC (32.2-35.5) g/dl RDW Std Deviation (35.1-43.9) fL Plt Count (163-337) K/mm3 MPV (9.4-12.3) fl Neut % (Auto) (34.0-67.9) % Lymph % (Auto) (21.8-53.1) % [place] % (Auto) (5.3-12.2) % Eos % (Auto) (0.8-7.0) Baso % (Auto) (0.1-1.2) % Neut # (Auto) (1.78-5.38) K/mm3 Lymph # (Auto) (1.32-3.57) K/mm3 [place] # (Auto) (0.30-0.82) K/mm3 Eos # (Auto) (0.04-0.54) K/mm3 Baso # (Auto) (0.01-0.08) K/mm3 VBG pH (7.30-7.40) Sodium (136-145) mEq/L Potassium (3.5-5.1) mEq/L Chloride (98-107) mEq/L Carbon Dioxide (21-32) mEq/L Anion Gap (5-15) BUN (7-18) mg/dL Creatinine (0.7-1.3) mg/dL Est Cr Clr Drug Dosing mL/min Estimated GFR (MDRD) (>60) mL/min BUN/Creatinine Ratio (14-18) Glucose (70-99) mg/dL POC Glucose 318 H 347 H 241 H (70-99) mg/dL Hemoglobin A1c ( - 5.6) % Lactic Acid (0.4-2.0) mmol/L Calcium (8.5-10.1) mg/dL Magnesium (1.8-2.4) mg/dL Iron (65-175) ug/dL TIBC (100-400) ug/dL % Saturation (20-55) % Transferrin (202-364) mg/dL Ur Random Creatinine (30.0-125.0) mg/dL Ur Random Microalbumin (1.3-20.0) mg/L Microalb/Creat Ratio (0-30) mg/g 09/27/21 09/27/21 09/27/21 Range/Units 10:05 10:12 10:51 WBC (4.23-9.07) K/mm3 RBC (4.63-6.08) M/mm3 Hgb (13.7-17.5) gm/dl Hct (40.1-51.0) % MCV (79.0-92.2) fl MCH (25.7-32.2) pg MCHC (32.2-35.5) g/dl RDW Std Deviation (35.1-43.9) fL Plt Count (163-337) K/mm3 MPV (9.4-12.3) fl Neut % (Auto) (34.0-67.9) % Lymph % (Auto) (21.8-53.1) % [place] % (Auto) (5.3-12.2) % Eos % (Auto) (0.8-7.0) Baso % (Auto) (0.1-1.2) % Neut # (Auto) (1.78-5.38) K/mm3 Lymph # (Auto) (1.32-3.57) K/mm3 [place] # (Auto) (0.30-0.82) K/mm3 Eos # (Auto) (0.04-0.54) K/mm3 Baso # (Auto) (0.01-0.08) K/mm3 VBG pH 7.33 (7.30-7.40) Sodium (136-145) mEq/L Potassium (3.5-5.1) mEq/L Chloride (98-107) mEq/L Carbon Dioxide (21-32) mEq/L Anion Gap (5-15) BUN (7-18) mg/dL Creatinine (0.7-1.3) mg/dL Est Cr Clr Drug Dosing mL/min Estimated GFR (MDRD) (>60) mL/min BUN/Creatinine Ratio (14-18) Glucose (70-99) mg/dL POC Glucose 178 H 163 H (70-99) mg/dL Hemoglobin A1c ( - 5.6) % Lactic Acid (0.4-2.0) mmol/L Calcium (8.5-10.1) mg/dL Magnesium (1.8-2.4) mg/dL Iron (65-175) ug/dL TIBC (100-400) ug/dL % Saturation (20-55) % Transferrin (202-364) mg/dL Ur Random Creatinine (30.0-125.0) mg/dL Ur Random Microalbumin (1.3-20.0) mg/L Microalb/Creat Ratio (0-30) mg/g 09/27/21 09/27/21 09/27/21 Range/Units 11:07 11:07 12:02 WBC (4.23-9.07) K/mm3 RBC (4.63-6.08) M/mm3 Hgb (13.7-17.5) gm/dl Hct (40.1-51.0) % MCV (79.0-92.2) fl MCH (25.7-32.2) pg MCHC (32.2-35.5) g/dl RDW Std Deviation (35.1-43.9) fL Plt Count (163-337) K/mm3 MPV (9.4-12.3) fl Neut % (Auto) (34.0-67.9) % Lymph % (Auto) (21.8-53.1) % [place] % (Auto) (5.3-12.2) % Eos % (Auto) (0.8-7.0) Baso % (Auto) (0.1-1.2) % Neut # (Auto) (1.78-5.38) K/mm3 Lymph # (Auto) (1.32-3.57) K/mm3 [place] # (Auto) (0.30-0.82) K/mm3 Eos # (Auto) (0.04-0.54) K/mm3 Baso # (Auto) (0.01-0.08) K/mm3 VBG pH (7.30-7.40) Sodium 138 (136-145) mEq/L Potassium 4.4 (3.5-5.1) mEq/L Chloride 103 (98-107) mEq/L Carbon Dioxide 10 L (21-32) mEq/L Anion Gap 29.4 H (5-15) BUN 35 H (7-18) mg/dL Creatinine 1.8 H (0.7-1.3) mg/dL Est Cr Clr Drug Dosing 56.84 mL/min Estimated GFR (MDRD) 47 (>60) mL/min BUN/Creatinine Ratio 19.4 H (14-18) Glucose 166 H (70-99) mg/dL POC Glucose 169 H (70-99) mg/dL Hemoglobin A1c ( - 5.6) % Lactic Acid 2.0 (0.4-2.0) mmol/L Calcium 7.4 L (8.5-10.1) mg/dL Magnesium 1.6 L (1.8-2.4) mg/dL Iron (65-175) ug/dL TIBC (100-400) ug/dL % Saturation (20-55) % Transferrin (202-364) mg/dL Ur Random Creatinine (30.0-125.0) mg/dL Ur Random Microalbumin (1.3-20.0) mg/L Microalb/Creat Ratio (0-30) mg/g 09/27/21 09/27/21 09/27/21 Range/Units 13:03 14:00 14:58 WBC (4.23-9.07) K/mm3 RBC (4.63-6.08) M/mm3 Hgb (13.7-17.5) gm/dl Hct (40.1-51.0) % MCV (79.0-92.2) fl MCH (25.7-32.2) pg MCHC (32.2-35.5) g/dl RDW Std Deviation (35.1-43.9) fL Plt Count (163-337) K/mm3 MPV (9.4-12.3) fl Neut % (Auto) (34.0-67.9) % Lymph % (Auto) (21.8-53.1) % [place] % (Auto) (5.3-12.2) % Eos % (Auto) (0.8-7.0) Baso % (Auto) (0.1-1.2) % Neut # (Auto) (1.78-5.38) K/mm3 Lymph # (Auto) (1.32-3.57) K/mm3 [place] # (Auto) (0.30-0.82) K/mm3 Eos # (Auto) (0.04-0.54) K/mm3 Baso # (Auto) (0.01-0.08) K/mm3 VBG pH (7.30-7.40) Sodium (136-145) mEq/L Potassium (3.5-5.1) mEq/L Chloride (98-107) mEq/L Carbon Dioxide (21-32) mEq/L Anion Gap (5-15) BUN (7-18) mg/dL Creatinine (0.7-1.3) mg/dL Est Cr Clr Drug Dosing mL/min Estimated GFR (MDRD) (>60) mL/min BUN/Creatinine Ratio (14-18) Glucose (70-99) mg/dL POC Glucose 141 H 321 H 404 H* (70-99) mg/dL Hemoglobin A1c ( - 5.6) % Lactic Acid (0.4-2.0) mmol/L Calcium (8.5-10.1) mg/dL Magnesium (1.8-2.4) mg/dL Iron (65-175) ug/dL TIBC (100-400) ug/dL % Saturation (20-55) % Transferrin (202-364) mg/dL Ur Random Creatinine (30.0-125.0) mg/dL Ur Random Microalbumin (1.3-20.0) mg/L Microalb/Creat Ratio (0-30) mg/g 09/27/21 09/27/21 09/27/21 Range/Units 15:52 15:52 15:52 WBC 8.75 (4.23-9.07) K/mm3 RBC 3.70 L (4.63-6.08) M/mm3 Hgb 9.6 L D (13.7-17.5) gm/dl Hct 28.4 L (40.1-51.0) % MCV 76.8 L (79.0-92.2) fl MCH 25.9 (25.7-32.2) pg MCHC 33.8 (32.2-35.5) g/dl RDW Std Deviation 40.6 (35.1-43.9) fL Plt Count 242 D (163-337) K/mm3 MPV 9.0 L (9.4-12.3) fl Neut % (Auto) 83.0 H (34.0-67.9) % Lymph % (Auto) 8.0 L (21.8-53.1) % [place] % (Auto) 8.8 (5.3-12.2) % Eos % (Auto) 0 L (0.8-7.0) Baso % (Auto) 0.1 (0.1-1.2) % Neut # (Auto) 7.26 H (1.78-5.38) K/mm3 Lymph # (Auto) 0.70 L (1.32-3.57) K/mm3 [place] # (Auto) 0.77 (0.30-0.82) K/mm3 Eos # (Auto) 0.00 L (0.04-0.54) K/mm3 Baso # (Auto) 0.01 (0.01-0.08) K/mm3 VBG pH (7.30-7.40) Sodium 132 L (136-145) mEq/L Potassium 4.6 (3.5-5.1) mEq/L Chloride 98 (98-107) mEq/L Carbon Dioxide 8 L* (21-32) mEq/L Anion Gap 30.6 H (5-15) BUN 30 H (7-18) mg/dL Creatinine 1.7 H (0.7-1.3) mg/dL Est Cr Clr Drug Dosing 60.46 mL/min Estimated GFR (MDRD) 50 (>60) mL/min BUN/Creatinine Ratio 17.6 (14-18) Glucose 472 H* (70-99) mg/dL POC Glucose (70-99) mg/dL Hemoglobin A1c 8.9 H ( - 5.6) % Lactic Acid (0.4-2.0) mmol/L Calcium 7.6 L (8.5-10.1) mg/dL Magnesium (1.8-2.4) mg/dL Iron (65-175) ug/dL TIBC (100-400) ug/dL % Saturation (20-55) % Transferrin (202-364) mg/dL Ur Random Creatinine (30.0-125.0) mg/dL Ur Random Microalbumin (1.3-20.0) mg/L Microalb/Creat Ratio (0-30) mg/g 09/27/21 09/27/21 09/27/21 Range/Units 15:52 16:02 17:03 WBC (4.23-9.07) K/mm3 RBC (4.63-6.08) M/mm3 Hgb (13.7-17.5) gm/dl Hct (40.1-51.0) % MCV (79.0-92.2) fl MCH (25.7-32.2) pg MCHC (32.2-35.5) g/dl RDW Std Deviation (35.1-43.9) fL Plt Count (163-337) K/mm3 MPV (9.4-12.3) fl Neut % (Auto) (34.0-67.9) % Lymph % (Auto) (21.8-53.1) % [place] % (Auto) (5.3-12.2) % Eos % (Auto) (0.8-7.0) Baso % (Auto) (0.1-1.2) % Neut # (Auto) (1.78-5.38) K/mm3 Lymph # (Auto) (1.32-3.57) K/mm3 [place] # (Auto) (0.30-0.82) K/mm3 Eos # (Auto) (0.04-0.54) K/mm3 Baso # (Auto) (0.01-0.08) K/mm3 VBG pH (7.30-7.40) Sodium (136-145) mEq/L Potassium (3.5-5.1) mEq/L Chloride (98-107) mEq/L Carbon Dioxide (21-32) mEq/L Anion Gap (5-15) BUN (7-18) mg/dL Creatinine (0.7-1.3) mg/dL Est Cr Clr Drug Dosing mL/min Estimated GFR (MDRD) (>60) mL/min BUN/Creatinine Ratio (14-18) Glucose (70-99) mg/dL POC Glucose 434 H* 347 H (70-99) mg/dL Hemoglobin A1c ( - 5.6) % Lactic Acid (0.4-2.0) mmol/L Calcium (8.5-10.1) mg/dL Magnesium (1.8-2.4) mg/dL Iron 42 L (65-175) ug/dL TIBC 314 (100-400) ug/dL % Saturation 13 L (20-55) % Transferrin 251 (202-364) mg/dL Ur Random Creatinine (30.0-125.0) mg/dL Ur Random Microalbumin (1.3-20.0) mg/L Microalb/Creat Ratio (0-30) mg/g 01/07/22 01/07/22 01/07/22 Range/Units 17:59 18:57 19:55 WBC (4.23-9.07) K/mm3 RBC (4.63-6.08) M/mm3 Hgb (13.7-17.5) gm/dl Hct (40.1-51.0) % MCV (79.0-92.2) fl MCH (25.7-32.2) pg MCHC (32.2-35.5) g/dl RDW Std Deviation (35.1-43.9) fL Plt Count (163-337) K/mm3 MPV (9.4-12.3) fl Neut % (Auto) (34.0-67.9) % Lymph % (Auto) (21.8-53.1) % [place] % (Auto) (5.3-12.2) % Eos % (Auto) (0.8-7.0) Baso % (Auto) (0.1-1.2) % Neut # (Auto) (1.78-5.38) K/mm3 Lymph # (Auto) (1.32-3.57) K/mm3 [place] # (Auto) (0.30-0.82) K/mm3 Eos # (Auto) (0.04-0.54) K/mm3 Baso # (Auto) (0.01-0.08) K/mm3 VBG pH (7.30-7.40) Sodium 138 (136-145) mEq/L Potassium 3.6 (3.5-5.1) mEq/L Chloride 104 (98-107) mEq/L Carbon Dioxide 16 L (21-32) mEq/L Anion Gap 21.6 H (5-15) BUN 23 H (7-18) mg/dL Creatinine 1.5 H (0.7-1.3) mg/dL Est Cr Clr Drug Dosing 68.53 mL/min Estimated GFR (MDRD) 57 (>60) mL/min BUN/Creatinine Ratio 15.3 (14-18) Glucose 137 H (70-99) mg/dL POC Glucose 214 H 154 H (70-99) mg/dL Hemoglobin A1c ( - 5.6) % Lactic Acid (0.4-2.0) mmol/L Calcium 7.8 L (8.5-10.1) mg/dL Magnesium 2.4 (1.8-2.4) mg/dL Iron (65-175) ug/dL TIBC (100-400) ug/dL % Saturation (20-55) % Transferrin (202-364) mg/dL Ur Random Creatinine (30.0-125.0) mg/dL Ur Random Microalbumin (1.3-20.0) mg/L Microalb/Creat Ratio (0-30) mg/g 09/27/21 09/27/21 09/27/21 Range/Units 20:02 21:05 22:06 WBC (4.23-9.07) K/mm3 RBC (4.63-6.08) M/mm3 Hgb (13.7-17.5) gm/dl Hct (40.1-51.0) % MCV (79.0-92.2) fl MCH (25.7-32.2) pg MCHC (32.2-35.5) g/dl RDW Std Deviation (35.1-43.9) fL Plt Count (163-337) K/mm3 MPV (9.4-12.3) fl Neut % (Auto) (34.0-67.9) % Lymph % (Auto) (21.8-53.1) % [place] % (Auto) (5.3-12.2) % Eos % (Auto) (0.8-7.0) Baso % (Auto) (0.1-1.2) % Neut # (Auto) (1.78-5.38) K/mm3 Lymph # (Auto) (1.32-3.57) K/mm3 [place] # (Auto) (0.30-0.82) K/mm3 Eos # (Auto) (0.04-0.54) K/mm3 Baso # (Auto) (0.01-0.08) K/mm3 VBG pH (7.30-7.40) Sodium (136-145) mEq/L Potassium (3.5-5.1) mEq/L Chloride (98-107) mEq/L Carbon Dioxide (21-32) mEq/L Anion Gap (5-15) BUN (7-18) mg/dL Creatinine (0.7-1.3) mg/dL Est Cr Clr Drug Dosing mL/min Estimated GFR (MDRD) (>60) mL/min BUN/Creatinine Ratio (14-18) Glucose (70-99) mg/dL POC Glucose 137 H 170 H 256 H (70-99) mg/dL Hemoglobin A1c ( - 5.6) % Lactic Acid (0.4-2.0) mmol/L Calcium (8.5-10.1) mg/dL Magnesium (1.8-2.4) mg/dL Iron (65-175) ug/dL TIBC (100-400) ug/dL % Saturation (20-55) % Transferrin (202-364) mg/dL Ur Random Creatinine (30.0-125.0) mg/dL Ur Random Microalbumin (1.3-20.0) mg/L Microalb/Creat Ratio (0-30) mg/g 09/27/21 09/28/21 09/28/21 Range/Units 23:04 00:01 00:12 WBC (4.23-9.07) K/mm3 RBC (4.63-6.08) M/mm3 Hgb (13.7-17.5) gm/dl Hct (40.1-51.0) % MCV (79.0-92.2) fl MCH (25.7-32.2) pg MCHC (32.2-35.5) g/dl RDW Std Deviation (35.1-43.9) fL Plt Count (163-337) K/mm3 MPV (9.4-12.3) fl Neut % (Auto) (34.0-67.9) % Lymph % (Auto) (21.8-53.1) % [place] % (Auto) (5.3-12.2) % Eos % (Auto) (0.8-7.0) Baso % (Auto) (0.1-1.2) % Neut # (Auto) (1.78-5.38) K/mm3 Lymph # (Auto) (1.32-3.57) K/mm3 [place] # (Auto) (0.30-0.82) K/mm3 Eos # (Auto) (0.04-0.54) K/mm3 Baso # (Auto) (0.01-0.08) K/mm3 VBG pH (7.30-7.40) Sodium 135 L (136-145) mEq/L Potassium 4.2 (3.5-5.1) mEq/L Chloride 101 (98-107) mEq/L Carbon Dioxide 13 L (21-32) mEq/L Anion Gap 25.2 H (5-15) BUN 18 (7-18) mg/dL Creatinine 1.7 H (0.7-1.3) mg/dL Est Cr Clr Drug Dosing 60.46 mL/min Estimated GFR (MDRD) 50 (>60) mL/min BUN/Creatinine Ratio 10.6 L (14-18) Glucose 199 H (70-99) mg/dL POC Glucose 245 H 202 H (70-99) mg/dL Hemoglobin A1c ( - 5.6) % Lactic Acid (0.4-2.0) mmol/L Calcium 7.7 L (8.5-10.1) mg/dL Magnesium (1.8-2.4) mg/dL Iron (65-175) ug/dL TIBC (100-400) ug/dL % Saturation (20-55) % Transferrin (202-364) mg/dL Ur Random Creatinine (30.0-125.0) mg/dL Ur Random Microalbumin (1.3-20.0) mg/L Microalb/Creat Ratio (0-30) mg/g 09/28/21 09/28/21 09/28/21 Range/Units 00:59 02:04 03:04 WBC (4.23-9.07) K/mm3 RBC (4.63-6.08) M/mm3 Hgb (13.7-17.5) gm/dl Hct (40.1-51.0) % MCV (79.0-92.2) fl MCH (25.7-32.2) pg MCHC (32.2-35.5) g/dl RDW Std Deviation (35.1-43.9) fL Plt Count (163-337) K/mm3 MPV (9.4-12.3) fl Neut % (Auto) (34.0-67.9) % Lymph % (Auto) (21.8-53.1) % [place] % (Auto) (5.3-12.2) % Eos % (Auto) (0.8-7.0) Baso % (Auto) (0.1-1.2) % Neut # (Auto) (1.78-5.38) K/mm3 Lymph # (Auto) (1.32-3.57) K/mm3 [place] # (Auto) (0.30-0.82) K/mm3 Eos # (Auto) (0.04-0.54) K/mm3 Baso # (Auto) (0.01-0.08) K/mm3 VBG pH (7.30-7.40) Sodium (136-145) mEq/L Potassium (3.5-5.1) mEq/L Chloride (98-107) mEq/L Carbon Dioxide (21-32) mEq/L Anion Gap (5-15) BUN (7-18) mg/dL Creatinine (0.7-1.3) mg/dL Est Cr Clr Drug Dosing mL/min Estimated GFR (MDRD) (>60) mL/min BUN/Creatinine Ratio (14-18) Glucose (70-99) mg/dL POC Glucose 220 H 393 H 412 H* (70-99) mg/dL Hemoglobin A1c ( - 5.6) % Lactic Acid (0.4-2.0) mmol/L Calcium (8.5-10.1) mg/dL Magnesium (1.8-2.4) mg/dL Iron (65-175) ug/dL TIBC (100-400) ug/dL % Saturation (20-55) % Transferrin (202-364) mg/dL Ur Random Creatinine (30.0-125.0) mg/dL Ur Random Microalbumin (1.3-20.0) mg/L Microalb/Creat Ratio (0-30) mg/g 09/28/21 09/28/21 09/28/21 Range/Units 03:59 04:00 05:05 WBC (4.23-9.07) K/mm3 RBC (4.63-6.08) M/mm3 Hgb (13.7-17.5) gm/dl Hct (40.1-51.0) % MCV (79.0-92.2) fl MCH (25.7-32.2) pg MCHC (32.2-35.5) g/dl RDW Std Deviation (35.1-43.9) fL Plt Count (163-337) K/mm3 MPV (9.4-12.3) fl Neut % (Auto) (34.0-67.9) % Lymph % (Auto) (21.8-53.1) % [place] % (Auto) (5.3-12.2) % Eos % (Auto) (0.8-7.0) Baso % (Auto) (0.1-1.2) % Neut # (Auto) (1.78-5.38) K/mm3 Lymph # (Auto) (1.32-3.57) K/mm3 [place] # (Auto) (0.30-0.82) K/mm3 Eos # (Auto) (0.04-0.54) K/mm3 Baso # (Auto) (0.01-0.08) K/mm3 VBG pH (7.30-7.40) Sodium 132 L (136-145) mEq/L Potassium 4.1 (3.5-5.1) mEq/L Chloride 99 (98-107) mEq/L Carbon Dioxide 12 L (21-32) mEq/L Anion Gap 25.1 H (5-15) BUN 17 (7-18) mg/dL Creatinine 1.6 H (0.7-1.3) mg/dL Est Cr Clr Drug Dosing 64.24 mL/min Estimated GFR (MDRD) 53 (>60) mL/min BUN/Creatinine Ratio 10.6 L (14-18) Glucose 420 H* (70-99) mg/dL POC Glucose 413 H* 256 H (70-99) mg/dL Hemoglobin A1c ( - 5.6) % Lactic Acid (0.4-2.0) mmol/L Calcium 7.9 L (8.5-10.1) mg/dL Magnesium (1.8-2.4) mg/dL Iron (65-175) ug/dL TIBC (100-400) ug/dL % Saturation (20-55) % Transferrin (202-364) mg/dL Ur Random Creatinine (30.0-125.0) mg/dL Ur Random Microalbumin (1.3-20.0) mg/L Microalb/Creat Ratio (0-30) mg/g 09/28/21 Range/Units 05:57 WBC (4.23-9.07) K/mm3 RBC (4.63-6.08) M/mm3 Hgb (13.7-17.5) gm/dl Hct (40.1-51.0) % MCV (79.0-92.2) fl MCH (25.7-32.2) pg MCHC (32.2-35.5) g/dl RDW Std Deviation (35.1-43.9) fL Plt Count (163-337) K/mm3 MPV (9.4-12.3) fl Neut % (Auto) (34.0-67.9) % Lymph % (Auto) (21.8-53.1) % [place] % (Auto) (5.3-12.2) % Eos % (Auto) (0.8-7.0) Baso % (Auto) (0.1-1.2) % Neut # (Auto) (1.78-5.38) K/mm3 Lymph # (Auto) (1.32-3.57) K/mm3 [place] # (Auto) (0.30-0.82) K/mm3 Eos # (Auto) (0.04-0.54) K/mm3 Baso # (Auto) (0.01-0.08) K/mm3 VBG pH (7.30-7.40) Sodium (136-145) mEq/L Potassium (3.5-5.1) mEq/L Chloride (98-107) mEq/L Carbon Dioxide (21-32) mEq/L Anion Gap (5-15) BUN (7-18) mg/dL Creatinine (0.7-1.3) mg/dL Est Cr Clr Drug Dosing mL/min Estimated GFR (MDRD) (>60) mL/min BUN/Creatinine Ratio (14-18) Glucose (70-99) mg/dL POC Glucose 210 H (70-99) mg/dL Hemoglobin A1c ( - 5.6) % Lactic Acid (0.4-2.0) mmol/L Calcium (8.5-10.1) mg/dL Magnesium (1.8-2.4) mg/dL Iron (65-175) ug/dL TIBC (100-400) ug/dL % Saturation (20-55) % Transferrin (202-364) mg/dL Ur Random Creatinine (30.0-125.0) mg/dL Ur Random Microalbumin (1.3-20.0) mg/L Microalb/Creat Ratio (0-30) mg/g Result Diagrams: 09/27/21 15:52 09/28/21 08:15 Sepsis Event Note - Evaluation Sepsis Screening Result: No Definite Risk - Focused Exam Vital Signs: Vital Signs Temp Pulse Resp BP BP Pulse Ox 09/28/21 04:00 97.6 F 20 126/86 100 09/28/21 00:00 97.8 F 18 113/66 99 09/27/21 20:12 114 H 115/57 L 09/27/21 20:00 98.1 F 18 120/59 L 98 - Problem List & Annotations (1) Acute renal insufficiency SNOMED Code(s): 176545086 Code(s): N28.9 - DISORDER OF KIDNEY AND URETER, UNSPECIFIED Status: Acute Current Visit: Yes (2) DKA (diabetic ketoacidosis) SNOMED Code(s): 962989327, 608788294 Code(s): E11.10 - TYPE 2 DIABETES MELLITUS WITH KETOACIDOSIS WITHOUT COMA Status: Acute Current Visit: Yes (3) Pyuria SNOMED Code(s): 9234613, 633899104 Code(s): R82.81 - PYURIA Status: Acute Current Visit: Yes (4) Upper GI bleed SNOMED Code(s): 31179583 Code(s): K92.2 - GASTROINTESTINAL HEMORRHAGE, UNSPECIFIED Status: Acute Current Visit: Yes (5) Encounter for medication refill SNOMED Code(s): 554847981, 282982676, 019149993 Code(s): Z76.0 - ENCOUNTER FOR ISSUE OF REPEAT PRESCRIPTION Status: Acute Current Visit: No (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 SNOMED Code(s): 7543885477244904 Code(s): U07.1 - COVID-19; I40.0 - INFECTIVE MYOCARDITIS Status: Acute Current Visit: No (7) Anxiety SNOMED Code(s): 45553836 Code(s): F41.9 - ANXIETY DISORDER, UNSPECIFIED Status: Chronic Priority: Low Current Visit: No Annotation/Comment:: stable - Problem List Review Problem List Initiated/Reviewed/Updated: Yes - Plan Plan:: 26-year-old poorly controlled, noncompliant patient with type 1 diabetes presents emergency department after 5 days of emesis. DKA * Initial symptoms started 5 days prior to admission with vomiting * Patient denies any changes prior to starting vomiting. Denies any fever or chills. Denies noncompliance with his insulin regimen. * 2 days prior to admission his Dexcom stopped working * Unknown how he was giving his insulin during that time * Initial glucose 674, anion gap 39.1, bicarb 7, Lactic acid 2.7, ketones 17.38 * Initial ABG: pH 7.11, PCO2 14.1, PO2 71.0, bicarb 4.3 Plan * Continue aggressive rehydration per DKA protocol * When blood sugars are between 150 and 200 switch to D5 half-normal saline with 20 mEq of KCl at 200 mL/h titrated between 150 and 250. * Continue insulin drip and titrate to keep blood sugars between 150 and 250 per DKA protocol * Fingerstick blood sugar every 1 hour * N.p.o. until ketoacidosis is resolved * * Addendummost recent anion gap 13.5 we will give patient 18 units of glargine, start medium dose sliding scale insulin, discontinue insulin drip and allow patient to eat * Acute renal injury * Initial creatinine 2.9, estimated GFR of 27 * Baseline creatinine normal around 1.0 with estimated GFR greater than 60 * Likely secondary to prerenal disease/hypovolemia * Creatinine 1.4 this a.m. significantly improved with fluids Upper GI bleed Microcytic anemia * Patient reports hematemesis yesterday * Likely secondary to gastritis/esophagitis from recurrent vomiting * Initial hemoglobin low at 12.7 which will be expected to decrease more with rehydration * No hematemesis reported since presentation to the emergency department Pyuria * UA WBCs 5-10 * 0-5 epithelial cells * Few bacteria * UA also significant for 2+ protein, 4+ ketones, 1+ occult blood but micro only shows 0-5 RBCs raising the possibility of myoglobinuria, bilirubin 3+. Nitrite was negative. * Although this is likely a sterile pyuria patient will be placed on 1 g of Rocephin while we await urine cultures. History of hypertension, diabetic nephropathy * On metoprolol * Not on LENARD inhibitor or ARB * Consider LENARD inhibitor/ARB when renal function improves * CODE STATUS: Full code * Dispopending oral intake and blood sugars this afternoon could potentially discharge to home with close follow-up with PCP and repeat hemoglobin, creatinine
[2021-09-28] MEDS ORDERED: Insulin Glargine,Hum.Rec.Anlog 100 UNIT/ML 3 ML Pen SUBCUT SCH (09:15)
[2021-09-28] MEDS: Insulin Lispro 100 Unit/ML 3 ML KwikPen SUBCUT SCH ×2 (11:38→12:38)
--- NOTE | 2021-09-28 12:54 | PCM.DCSUM1 ---
Discharge Summary - Hospital Course Free Text/Narrative:: 26-year-old male with type 1 diabetes well-known to the hospital staff presents emergency department with increasing emesis. Patient states that 5 days prior to admission he started vomiting and abdominal pain. Then 2 days prior to admission his Dexcom stopped working. He states he was so sick at that point he could not move. On the day of admission he was vomiting bile and blood and only able to keep down small amounts of water. Patient was unclear in regards to use of insulin after his Dexcom was no longer working. Initial zkjal-wa-avys blood sugar was greater than 580 and serum blood sugar was 674. He had an anion gap of 39 and bicarb of 7. Initial lactic acid was 2.7 and ketones were 17.38. He has significant renal dysfunction with creatinine of 2.9 and estimated GFR 27. Hyperkalemia with potassium of 6.1. Patient was given several liters of IV fluids and given an IV insulin bolus and placed on IV insulin drip. Patient was monitored according to DKA protocol. Electrolytes were repleted as necessary. Aggressive fluid resuscitation per DKA protocol. Patient's FABIOLA resolved. Patient's anion gap was monitored and closed within 24 hours of admission. Patient was transitioned to subcutaneous insulin. Patient was able to tolerate oral intake and was medically stable for discharge. Patient was given a dose of ceftriaxone for concerns of possible urinary tract infection however urine culture returned with normal eve. Recommendations upon discharge include increasing patient's long-acting insulin to 20 units daily. Also recommend continuing 1-8 carb ratio and medium dose sliding scale insulin with additional corrections as patient has been instructed by his fact checker. Patient states he has an fact checker follow-up in September. Also recommend follow-up with his PCP within the next 1 week with a recheck of his creatinine. We will hold patient's lisinopril until recheck of his creatinine. Reasons to return to the ER or to call to his PCP were discussed with the patient he stated understanding. - Discharge Data Discharge Date: 09/28/21 Discharge Disposition: Home, Self-Care 01 Condition: Good - Referral to Home Health Primary Care Physician: Faina Frost NP - Discharge Diagnosis/Problem(s) (1) Acute renal insufficiency SNOMED Code(s): 246825639 ICD Code: N28.9 - DISORDER OF KIDNEY AND URETER, UNSPECIFIED Status: Acute Current Visit: Yes (2) DKA (diabetic ketoacidosis) SNOMED Code(s): 313483086, 557798252 ICD Code: E11.10 - TYPE 2 DIABETES MELLITUS WITH KETOACIDOSIS WITHOUT COMA Status: Acute Current Visit: Yes (3) Pyuria SNOMED Code(s): 0706907, 136475587 ICD Code: R82.81 - PYURIA Status: Acute Current Visit: Yes (4) Upper GI bleed SNOMED Code(s): 87597591 ICD Code: K92.2 - GASTROINTESTINAL HEMORRHAGE, UNSPECIFIED Status: Acute Current Visit: Yes (5) Encounter for medication refill SNOMED Code(s): 643443482, 393417220, 638056969 ICD Code: Z76.0 - ENCOUNTER FOR ISSUE OF REPEAT PRESCRIPTION Status: Acute Current Visit: No (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 SNOMED Code(s): 0576011927133085 ICD Code: U07.1 - COVID-19; I40.0 - INFECTIVE MYOCARDITIS Status: Acute Current Visit: No (7) Anxiety SNOMED Code(s): 63949666 ICD Code: F41.9 - ANXIETY DISORDER, UNSPECIFIED Status: Chronic Priority: Low Current Visit: No Problem Details: stable - Patient Summary/Data Consults: Consultations 09/27/21 10:16 Consult to Diabetic Nurse Specialist [CONS] Routine - Patient Instructions Diet: Diabetic Diet - Discharge Plan *PRESCRIPTION DRUG MONITORING PROGRAM REVIEWED*: No *COPY OF PRESCRIPTION DRUG MONITORING REPORT IN PATIENT [place]: No Home Medications: Home Meds Insulin Aspart [NovoLOG] 0 unit SUBCUT ASDIRECTED #1 pen 07/27/21 [Rx] Insulin Glarg,Human.Rec.Analog [Lantus] 14 - 20 unit SUBCUT DAILY 07/27/21 [History] Metoprolol Succinate 50 mg PO BEDTIME 09/27/21 [History] Patient Handouts: Diabetes Mellitus and Sick Day Management, Sepsis, Diagnosis, Adult, Preventing Diabetic Ketoacidosis Forms: ED Department Discharge Referrals: Faina Frost NP [Primary Care Provider] - - Discharge Summary/Plan Comment DC Time >30 min.: Yes Total # of Minutes for Discharge Time: 35 minutes - Patient Data Vitals - Most Recent: Last Vital Signs Temp 97.8 F 09/28/21 08:00 Pulse 114 H 09/27/21 20:12 Resp 20 09/28/21 08:00 BP 101/60 09/28/21 08:00 Pulse Ox 97 09/28/21 08:00 Weight - Most Recent: 147 lb 6.4 oz I&O - Last 24 hours: Intake & Output 09/27/21 09/28/21 09/28/21 22:59 06:59 14:59 Intake Total 2399 Output Total 900 900 Balance -900 1499 Lab Results - Last 24 hrs: Laboratory Results - last 24 hr 09/27/21 09/27/21 09/27/21 Range/Units 03:07 13:03 14:00 WBC (4.23-9.07) K/mm3 RBC (4.63-6.08) M/mm3 Hgb (13.7-17.5) gm/dl Hct (40.1-51.0) % MCV (79.0-92.2) fl MCH (25.7-32.2) pg MCHC (32.2-35.5) g/dl RDW Std Deviation (35.1-43.9) fL Plt Count (163-337) K/mm3 MPV (9.4-12.3) fl Neut % (Auto) (34.0-67.9) % Lymph % (Auto) (21.8-53.1) % Henderson % (Auto) (5.3-12.2) % Eos % (Auto) (0.8-7.0) Baso % (Auto) (0.1-1.2) % Neut # (Auto) (1.78-5.38) K/mm3 Lymph # (Auto) (1.32-3.57) K/mm3 Henderson # (Auto) (0.30-0.82) K/mm3 Eos # (Auto) (0.04-0.54) K/mm3 Baso # (Auto) (0.01-0.08) K/mm3 Sodium (136-145) mEq/L Potassium (3.5-5.1) mEq/L Chloride (98-107) mEq/L Carbon Dioxide (21-32) mEq/L Anion Gap (5-15) BUN (7-18) mg/dL Creatinine (0.7-1.3) mg/dL Est Cr Clr Drug Dosing mL/min Estimated GFR (MDRD) (>60) mL/min BUN/Creatinine Ratio (14-18) Glucose (70-99) mg/dL POC Glucose 141 H 321 H (70-99) mg/dL Hemoglobin A1c ( - 5.6) % Calcium (8.5-10.1) mg/dL Magnesium (1.8-2.4) mg/dL Iron (65-175) ug/dL TIBC (100-400) ug/dL % Saturation (20-55) % Transferrin (202-364) mg/dL Ur Random Creatinine 77.7 (30.0-125.0) mg/dL Ur Random Microalbumin 332.5 H (1.3-20.0) mg/L Microalb/Creat Ratio 427.9 H (0-30) mg/g 09/27/21 09/27/21 09/27/21 Range/Units 14:58 15:52 15:52 WBC 8.75 (4.23-9.07) K/mm3 RBC 3.70 L (4.63-6.08) M/mm3 Hgb 9.6 L D (13.7-17.5) gm/dl Hct 28.4 L (40.1-51.0) % MCV 76.8 L (79.0-92.2) fl MCH 25.9 (25.7-32.2) pg MCHC 33.8 (32.2-35.5) g/dl RDW Std Deviation 40.6 (35.1-43.9) fL Plt Count 242 D (163-337) K/mm3 MPV 9.0 L (9.4-12.3) fl Neut % (Auto) 83.0 H (34.0-67.9) % Lymph % (Auto) 8.0 L (21.8-53.1) % Henderson % (Auto) 8.8 (5.3-12.2) % Eos % (Auto) 0 L (0.8-7.0) Baso % (Auto) 0.1 (0.1-1.2) % Neut # (Auto) 7.26 H (1.78-5.38) K/mm3 Lymph # (Auto) 0.70 L (1.32-3.57) K/mm3 Henderson # (Auto) 0.77 (0.30-0.82) K/mm3 Eos # (Auto) 0.00 L (0.04-0.54) K/mm3 Baso # (Auto) 0.01 (0.01-0.08) K/mm3 Sodium 132 L (136-145) mEq/L Potassium 4.6 (3.5-5.1) mEq/L Chloride 98 (98-107) mEq/L Carbon Dioxide 8 L* (21-32) mEq/L Anion Gap 30.6 H (5-15) BUN 30 H (7-18) mg/dL Creatinine 1.7 H (0.7-1.3) mg/dL Est Cr Clr Drug Dosing 60.46 mL/min Estimated GFR (MDRD) 50 (>60) mL/min BUN/Creatinine Ratio 17.6 (14-18) Glucose 472 H* (70-99) mg/dL POC Glucose 404 H* (70-99) mg/dL Hemoglobin A1c ( - 5.6) % Calcium 7.6 L (8.5-10.1) mg/dL Magnesium (1.8-2.4) mg/dL Iron (65-175) ug/dL TIBC (100-400) ug/dL % Saturation (20-55) % Transferrin (202-364) mg/dL Ur Random Creatinine (30.0-125.0) mg/dL Ur Random Microalbumin (1.3-20.0) mg/L Microalb/Creat Ratio (0-30) mg/g 09/27/21 09/27/21 09/27/21 Range/Units 15:52 15:52 16:02 WBC (4.23-9.07) K/mm3 RBC (4.63-6.08) M/mm3 Hgb (13.7-17.5) gm/dl Hct (40.1-51.0) % MCV (79.0-92.2) fl MCH (25.7-32.2) pg MCHC (32.2-35.5) g/dl RDW Std Deviation (35.1-43.9) fL Plt Count (163-337) K/mm3 MPV (9.4-12.3) fl Neut % (Auto) (34.0-67.9) % Lymph % (Auto) (21.8-53.1) % Henderson % (Auto) (5.3-12.2) % Eos % (Auto) (0.8-7.0) Baso % (Auto) (0.1-1.2) % Neut # (Auto) (1.78-5.38) K/mm3 Lymph # (Auto) (1.32-3.57) K/mm3 Henderson # (Auto) (0.30-0.82) K/mm3 Eos # (Auto) (0.04-0.54) K/mm3 Baso # (Auto) (0.01-0.08) K/mm3 Sodium (136-145) mEq/L Potassium (3.5-5.1) mEq/L Chloride (98-107) mEq/L Carbon Dioxide (21-32) mEq/L Anion Gap (5-15) BUN (7-18) mg/dL Creatinine (0.7-1.3) mg/dL Est Cr Clr Drug Dosing mL/min Estimated GFR (MDRD) (>60) mL/min BUN/Creatinine Ratio (14-18) Glucose (70-99) mg/dL POC Glucose 434 H* (70-99) mg/dL Hemoglobin A1c 8.9 H ( - 5.6) % Calcium (8.5-10.1) mg/dL Magnesium (1.8-2.4) mg/dL Iron 42 L (65-175) ug/dL TIBC 314 (100-400) ug/dL % Saturation 13 L (20-55) % Transferrin 251 (202-364) mg/dL Ur Random Creatinine (30.0-125.0) mg/dL Ur Random Microalbumin (1.3-20.0) mg/L Microalb/Creat Ratio (0-30) mg/g 09/27/21 09/27/21 09/27/21 Range/Units 17:03 17:59 18:57 WBC (4.23-9.07) K/mm3 RBC (4.63-6.08) M/mm3 Hgb (13.7-17.5) gm/dl Hct (40.1-51.0) % MCV (79.0-92.2) fl MCH (25.7-32.2) pg MCHC (32.2-35.5) g/dl RDW Std Deviation (35.1-43.9) fL Plt Count (163-337) K/mm3 MPV (9.4-12.3) fl Neut % (Auto) (34.0-67.9) % Lymph % (Auto) (21.8-53.1) % Henderson % (Auto) (5.3-12.2) % Eos % (Auto) (0.8-7.0) Baso % (Auto) (0.1-1.2) % Neut # (Auto) (1.78-5.38) K/mm3 Lymph # (Auto) (1.32-3.57) K/mm3 Henderson # (Auto) (0.30-0.82) K/mm3 Eos # (Auto) (0.04-0.54) K/mm3 Baso # (Auto) (0.01-0.08) K/mm3 Sodium (136-145) mEq/L Potassium (3.5-5.1) mEq/L Chloride (98-107) mEq/L Carbon Dioxide (21-32) mEq/L Anion Gap (5-15) BUN (7-18) mg/dL Creatinine (0.7-1.3) mg/dL Est Cr Clr Drug Dosing mL/min Estimated GFR (MDRD) (>60) mL/min BUN/Creatinine Ratio (14-18) Glucose (70-99) mg/dL POC Glucose 347 H 214 H 154 H (70-99) mg/dL Hemoglobin A1c ( - 5.6) % Calcium (8.5-10.1) mg/dL Magnesium (1.8-2.4) mg/dL Iron (65-175) ug/dL TIBC (100-400) ug/dL % Saturation (20-55) % Transferrin (202-364) mg/dL Ur Random Creatinine (30.0-125.0) mg/dL Ur Random Microalbumin (1.3-20.0) mg/L Microalb/Creat Ratio (0-30) mg/g 09/27/21 09/27/21 09/27/21 Range/Units 19:55 20:02 21:05 WBC (4.23-9.07) K/mm3 RBC (4.63-6.08) M/mm3 Hgb (13.7-17.5) gm/dl Hct (40.1-51.0) % MCV (79.0-92.2) fl MCH (25.7-32.2) pg MCHC (32.2-35.5) g/dl RDW Std Deviation (35.1-43.9) fL Plt Count (163-337) K/mm3 MPV (9.4-12.3) fl Neut % (Auto) (34.0-67.9) % Lymph % (Auto) (21.8-53.1) % Henderson % (Auto) (5.3-12.2) % Eos % (Auto) (0.8-7.0) Baso % (Auto) (0.1-1.2) % Neut # (Auto) (1.78-5.38) K/mm3 Lymph # (Auto) (1.32-3.57) K/mm3 Henderson # (Auto) (0.30-0.82) K/mm3 Eos # (Auto) (0.04-0.54) K/mm3 Baso # (Auto) (0.01-0.08) K/mm3 Sodium 138 (136-145) mEq/L Potassium 3.6 (3.5-5.1) mEq/L Chloride 104 (98-107) mEq/L Carbon Dioxide 16 L (21-32) mEq/L Anion Gap 21.6 H (5-15) BUN 23 H (7-18) mg/dL Creatinine 1.5 H (0.7-1.3) mg/dL Est Cr Clr Drug Dosing 68.53 mL/min Estimated GFR (MDRD) 57 (>60) mL/min BUN/Creatinine Ratio 15.3 (14-18) Glucose 137 H (70-99) mg/dL POC Glucose 137 H 170 H (70-99) mg/dL Hemoglobin A1c ( - 5.6) % Calcium 7.8 L (8.5-10.1) mg/dL Magnesium 2.4 (1.8-2.4) mg/dL Iron (65-175) ug/dL TIBC (100-400) ug/dL % Saturation (20-55) % Transferrin (202-364) mg/dL Ur Random Creatinine (30.0-125.0) mg/dL Ur Random Microalbumin (1.3-20.0) mg/L Microalb/Creat Ratio (0-30) mg/g 09/27/21 09/27/21 09/28/21 Range/Units 22:06 23:04 00:01 WBC (4.23-9.07) K/mm3 RBC (4.63-6.08) M/mm3 Hgb (13.7-17.5) gm/dl Hct (40.1-51.0) % MCV (79.0-92.2) fl MCH (25.7-32.2) pg MCHC (32.2-35.5) g/dl RDW Std Deviation (35.1-43.9) fL Plt Count (163-337) K/mm3 MPV (9.4-12.3) fl Neut % (Auto) (34.0-67.9) % Lymph % (Auto) (21.8-53.1) % Henderson % (Auto) (5.3-12.2) % Eos % (Auto) (0.8-7.0) Baso % (Auto) (0.1-1.2) % Neut # (Auto) (1.78-5.38) K/mm3 Lymph # (Auto) (1.32-3.57) K/mm3 Henderson # (Auto) (0.30-0.82) K/mm3 Eos # (Auto) (0.04-0.54) K/mm3 Baso # (Auto) (0.01-0.08) K/mm3 Sodium (136-145) mEq/L Potassium (3.5-5.1) mEq/L Chloride (98-107) mEq/L Carbon Dioxide (21-32) mEq/L Anion Gap (5-15) BUN (7-18) mg/dL Creatinine (0.7-1.3) mg/dL Est Cr Clr Drug Dosing mL/min Estimated GFR (MDRD) (>60) mL/min BUN/Creatinine Ratio (14-18) Glucose (70-99) mg/dL POC Glucose 256 H 245 H 202 H (70-99) mg/dL Hemoglobin A1c ( - 5.6) % Calcium (8.5-10.1) mg/dL Magnesium (1.8-2.4) mg/dL Iron (65-175) ug/dL TIBC (100-400) ug/dL % Saturation (20-55) % Transferrin (202-364) mg/dL Ur Random Creatinine (30.0-125.0) mg/dL Ur Random Microalbumin (1.3-20.0) mg/L Microalb/Creat Ratio (0-30) mg/g 09/28/21 09/28/21 09/28/21 Range/Units 00:12 00:59 02:04 WBC (4.23-9.07) K/mm3 RBC (4.63-6.08) M/mm3 Hgb (13.7-17.5) gm/dl Hct (40.1-51.0) % MCV (79.0-92.2) fl MCH (25.7-32.2) pg MCHC (32.2-35.5) g/dl RDW Std Deviation (35.1-43.9) fL Plt Count (163-337) K/mm3 MPV (9.4-12.3) fl Neut % (Auto) (34.0-67.9) % Lymph % (Auto) (21.8-53.1) % Henderson % (Auto) (5.3-12.2) % Eos % (Auto) (0.8-7.0) Baso % (Auto) (0.1-1.2) % Neut # (Auto) (1.78-5.38) K/mm3 Lymph # (Auto) (1.32-3.57) K/mm3 Henderson # (Auto) (0.30-0.82) K/mm3 Eos # (Auto) (0.04-0.54) K/mm3 Baso # (Auto) (0.01-0.08) K/mm3 Sodium 135 L (136-145) mEq/L Potassium 4.2 (3.5-5.1) mEq/L Chloride 101 (98-107) mEq/L Carbon Dioxide 13 L (21-32) mEq/L Anion Gap 25.2 H (5-15) BUN 18 (7-18) mg/dL Creatinine 1.7 H (0.7-1.3) mg/dL Est Cr Clr Drug Dosing 60.46 mL/min Estimated GFR (MDRD) 50 (>60) mL/min BUN/Creatinine Ratio 10.6 L (14-18) Glucose 199 H (70-99) mg/dL POC Glucose 220 H 393 H (70-99) mg/dL Hemoglobin A1c ( - 5.6) % Calcium 7.7 L (8.5-10.1) mg/dL Magnesium (1.8-2.4) mg/dL Iron (65-175) ug/dL TIBC (100-400) ug/dL % Saturation (20-55) % Transferrin (202-364) mg/dL Ur Random Creatinine (30.0-125.0) mg/dL Ur Random Microalbumin (1.3-20.0) mg/L Microalb/Creat Ratio (0-30) mg/g 09/28/21 09/28/21 09/28/21 Range/Units 03:04 03:59 04:00 WBC (4.23-9.07) K/mm3 RBC (4.63-6.08) M/mm3 Hgb (13.7-17.5) gm/dl Hct (40.1-51.0) % MCV (79.0-92.2) fl MCH (25.7-32.2) pg MCHC (32.2-35.5) g/dl RDW Std Deviation (35.1-43.9) fL Plt Count (163-337) K/mm3 MPV (9.4-12.3) fl Neut % (Auto) (34.0-67.9) % Lymph % (Auto) (21.8-53.1) % Henderson % (Auto) (5.3-12.2) % Eos % (Auto) (0.8-7.0) Baso % (Auto) (0.1-1.2) % Neut # (Auto) (1.78-5.38) K/mm3 Lymph # (Auto) (1.32-3.57) K/mm3 Henderson # (Auto) (0.30-0.82) K/mm3 Eos # (Auto) (0.04-0.54) K/mm3 Baso # (Auto) (0.01-0.08) K/mm3 Sodium 132 L (136-145) mEq/L Potassium 4.1 (3.5-5.1) mEq/L Chloride 99 (98-107) mEq/L Carbon Dioxide 12 L (21-32) mEq/L Anion Gap 25.1 H (5-15) BUN 17 (7-18) mg/dL Creatinine 1.6 H (0.7-1.3) mg/dL Est Cr Clr Drug Dosing 64.24 mL/min Estimated GFR (MDRD) 53 (>60) mL/min BUN/Creatinine Ratio 10.6 L (14-18) Glucose 420 H* (70-99) mg/dL POC Glucose 412 H* 413 H* (70-99) mg/dL Hemoglobin A1c ( - 5.6) % Calcium 7.9 L (8.5-10.1) mg/dL Magnesium (1.8-2.4) mg/dL Iron (65-175) ug/dL TIBC (100-400) ug/dL % Saturation (20-55) % Transferrin (202-364) mg/dL Ur Random Creatinine (30.0-125.0) mg/dL Ur Random Microalbumin (1.3-20.0) mg/L Microalb/Creat Ratio (0-30) mg/g 09/28/21 09/28/21 09/28/21 Range/Units 05:05 05:57 06:56 WBC (4.23-9.07) K/mm3 RBC (4.63-6.08) M/mm3 Hgb (13.7-17.5) gm/dl Hct (40.1-51.0) % MCV (79.0-92.2) fl MCH (25.7-32.2) pg MCHC (32.2-35.5) g/dl RDW Std Deviation (35.1-43.9) fL Plt Count (163-337) K/mm3 MPV (9.4-12.3) fl Neut % (Auto) (34.0-67.9) % Lymph % (Auto) (21.8-53.1) % Henderson % (Auto) (5.3-12.2) % Eos % (Auto) (0.8-7.0) Baso % (Auto) (0.1-1.2) % Neut # (Auto) (1.78-5.38) K/mm3 Lymph # (Auto) (1.32-3.57) K/mm3 Henderson # (Auto) (0.30-0.82) K/mm3 Eos # (Auto) (0.04-0.54) K/mm3 Baso # (Auto) (0.01-0.08) K/mm3 Sodium (136-145) mEq/L Potassium (3.5-5.1) mEq/L Chloride (98-107) mEq/L Carbon Dioxide (21-32) mEq/L Anion Gap (5-15) BUN (7-18) mg/dL Creatinine (0.7-1.3) mg/dL Est Cr Clr Drug Dosing mL/min Estimated GFR (MDRD) (>60) mL/min BUN/Creatinine Ratio (14-18) Glucose (70-99) mg/dL POC Glucose 256 H 210 H 153 H (70-99) mg/dL Hemoglobin A1c ( - 5.6) % Calcium (8.5-10.1) mg/dL Magnesium (1.8-2.4) mg/dL Iron (65-175) ug/dL TIBC (100-400) ug/dL % Saturation (20-55) % Transferrin (202-364) mg/dL Ur Random Creatinine (30.0-125.0) mg/dL Ur Random Microalbumin (1.3-20.0) mg/L Microalb/Creat Ratio (0-30) mg/g 09/28/21 09/28/21 09/28/21 Range/Units 08:15 08:25 09:31 WBC (4.23-9.07) K/mm3 RBC (4.63-6.08) M/mm3 Hgb (13.7-17.5) gm/dl Hct (40.1-51.0) % MCV (79.0-92.2) fl MCH (25.7-32.2) pg MCHC (32.2-35.5) g/dl RDW Std Deviation (35.1-43.9) fL Plt Count (163-337) K/mm3 MPV (9.4-12.3) fl Neut % (Auto) (34.0-67.9) % Lymph % (Auto) (21.8-53.1) % Henderson % (Auto) (5.3-12.2) % Eos % (Auto) (0.8-7.0) Baso % (Auto) (0.1-1.2) % Neut # (Auto) (1.78-5.38) K/mm3 Lymph # (Auto) (1.32-3.57) K/mm3 Henderson # (Auto) (0.30-0.82) K/mm3 Eos # (Auto) (0.04-0.54) K/mm3 Baso # (Auto) (0.01-0.08) K/mm3 Sodium 137 (136-145) mEq/L Potassium 3.5 (3.5-5.1) mEq/L Chloride 103 (98-107) mEq/L Carbon Dioxide 24 D (21-32) mEq/L Anion Gap 13.5 (5-15) BUN 13 (7-18) mg/dL Creatinine 1.4 H (0.7-1.3) mg/dL Est Cr Clr Drug Dosing 73.42 mL/min Estimated GFR (MDRD) > 60 (>60) mL/min BUN/Creatinine Ratio 9.3 L (14-18) Glucose 110 H (70-99) mg/dL POC Glucose 113 H 101 H (70-99) mg/dL Hemoglobin A1c ( - 5.6) % Calcium 8.1 L (8.5-10.1) mg/dL Magnesium (1.8-2.4) mg/dL Iron (65-175) ug/dL TIBC (100-400) ug/dL % Saturation (20-55) % Transferrin (202-364) mg/dL Ur Random Creatinine (30.0-125.0) mg/dL Ur Random Microalbumin (1.3-20.0) mg/L Microalb/Creat Ratio (0-30) mg/g 09/28/21 09/28/21 09/28/21 Range/Units 10:29 11:31 12:31 WBC (4.23-9.07) K/mm3 RBC (4.63-6.08) M/mm3 Hgb (13.7-17.5) gm/dl Hct (40.1-51.0) % MCV (79.0-92.2) fl MCH (25.7-32.2) pg MCHC (32.2-35.5) g/dl RDW Std Deviation (35.1-43.9) fL Plt Count (163-337) K/mm3 MPV (9.4-12.3) fl Neut % (Auto) (34.0-67.9) % Lymph % (Auto) (21.8-53.1) % Henderson % (Auto) (5.3-12.2) % Eos % (Auto) (0.8-7.0) Baso % (Auto) (0.1-1.2) % Neut # (Auto) (1.78-5.38) K/mm3 Lymph # (Auto) (1.32-3.57) K/mm3 Henderson # (Auto) (0.30-0.82) K/mm3 Eos # (Auto) (0.04-0.54) K/mm3 Baso # (Auto) (0.01-0.08) K/mm3 Sodium (136-145) mEq/L Potassium (3.5-5.1) mEq/L Chloride (98-107) mEq/L Carbon Dioxide (21-32) mEq/L Anion Gap (5-15) BUN (7-18) mg/dL Creatinine (0.7-1.3) mg/dL Est Cr Clr Drug Dosing mL/min Estimated GFR (MDRD) (>60) mL/min BUN/Creatinine Ratio (14-18) Glucose (70-99) mg/dL POC Glucose 145 H 137 H 176 H (70-99) mg/dL Hemoglobin A1c ( - 5.6) % Calcium (8.5-10.1) mg/dL Magnesium (1.8-2.4) mg/dL Iron (65-175) ug/dL TIBC (100-400) ug/dL % Saturation (20-55) % Transferrin (202-364) mg/dL Ur Random Creatinine (30.0-125.0) mg/dL Ur Random Microalbumin (1.3-20.0) mg/L Microalb/Creat Ratio (0-30) mg/g MEGAN Results - Last 24 hrs: Microbiology 09/27/21 Unknown Urine Culture - Preliminary Urine Med Orders - Current: Current Medications Acetaminophen (Acetaminophen 325 Mg Tab) 650 mg PO Q4H PRN PRN Reason: Pain (Mild 1-3)/fever Albuterol (Albuterol 0.083% 2.5 Mg/3 Ml Neb Soln) 2.5 mg NEB Q2H PRN PRN Reason: Shortness Of Breath/wheezing Insulin Glargine (Insulin Glargine,Hum.Rec.Anlog 100 Unit/Ml 3 Ml Pen) 18 unit SUBCUT DAILY [facility] Last Admin: 09/28/21 09:28 Dose: 18 units Documented by: Insulin Human Lispro (Insulin Lispro 100 Unit/Ml 3 Ml Kwikpen) 0 unit SUBCUT WITHMEALSANDBED [facility]; Protocol Last Admin: 09/28/21 12:38 Dose: 2 units Documented by: Metoprolol Succinate (Metoprolol Succinate 50 Mg Tab.Er) 50 mg PO BEDTIME [facility] Last Admin: 09/27/21 20:12 Dose: 50 mg Documented by: Ondansetron HCl (Ondansetron 4 Mg/2 Ml Sdv) 4 mg IV Q6H PRN PRN Reason: Nausea/Vomiting Last Admin: 09/27/21 18:00 Dose: 4 mg Documented by: Pantoprazole Sodium (Pantoprazole 40 Mg Vial) 40 mg IVPUSH Q12H [facility] Last Admin: 09/28/21 12:39 Dose: 40 mg Documented by: Discontinued Medications Acetaminophen (Acetaminophen 325 Mg Tab) 650 mg PO ONETIME ONE Stop: 09/27/21 07:26 Last Admin: 09/27/21 07:36 Dose: 650 mg Documented by: Sodium Chloride (Normal Saline) 1,000 mls @ 999 mls/hr IV ONETIME ONE Stop: 09/27/21 02:46 Last Admin: 09/27/21 01:52 Dose: 999 mls/hr Documented by: Insulin Human Regular 100 unit (/ Sodium Chloride) 100 mls @ 6.35 mls/hr IV TITRATE [facility]; Protocol Stop: 09/28/21 11:00 Last Titration: 09/28/21 08:35 Dose: 0.02 units/kg/hr, 1 mls/hr Documented by: Sodium Chloride (Normal Saline) 1,000 mls @ 999 mls/hr IV ONETIME ONE Stop: 09/27/21 03:56 Last Admin: 09/27/21 04:21 Dose: 999 mls/hr Documented by: Sodium Chloride (Normal Saline) 1,000 mls @ 999 mls/hr IV ONETIME ONE Stop: 09/27/21 03:56 Last Admin: 09/27/21 03:11 Dose: 999 mls/hr Documented by: Sodium Chloride (Normal Saline) 1,000 mls @ 250 mls/hr IV ASDIRECTED [facility] Last Infusion: 09/27/21 06:49 Dose: 999 mls/hr Documented by: Sodium Chloride (Normal Saline) 1,000 mls @ 999 mls/hr IV ONETIME ONE Stop: 09/27/21 07:19 Last Admin: 09/27/21 07:36 Dose: 999 mls/hr Documented by: Lactated Ringer's (Ringers, Lactated) 1,000 mls @ 999 mls/hr IV ASDIRECTED [facility] Last Admin: 09/27/21 10:13 Dose: 999 mls/hr Documented by: Potassium Chloride/Dextrose/Sod Cl (D5 1/2 Ns W/ 20 Meq/L Kcl) 1,000 mls @ 200 mls/hr IV ASDIRECTED [facility] Last Admin: 09/27/21 11:31 Dose: 200 mls/hr Documented by: Magnesium Sulfate 4 gm/ Premix 50 mls @ 12.5 mls/hr IV ONETIME ONE Stop: 09/27/21 16:59 Last Admin: 09/27/21 12:20 Dose: 12.5 mls/hr Documented by: Ceftriaxone Sodium 1 gm/ (Sodium Chloride) 100 mls @ 200 mls/hr IV Q24H [facility] Stop: 09/28/21 11:00 Last Admin: 09/27/21 12:50 Dose: 200 mls/hr Documented by: Potassium Chloride/Dextrose/Sod Cl (D5 1/2 Ns W/ 20 Meq/L Kcl) 1,000 mls @ 250 mls/hr IV ASDIRECTED [facility] Lactated Ringer's (Ringers, Lactated) 1,000 mls @ 200 mls/hr IV ASDIRECTED [facility] Last Admin: 09/27/21 16:23 Dose: 200 mls/hr Documented by: Potassium Chloride/Dextrose/Sod Cl (D5 1/2 Ns W/ 20 Meq/L Kcl) 1,000 mls @ 150 mls/hr IV ASDIRECTED [facility] Last Admin: 09/28/21 00:03 Dose: 200 mls/hr Documented by: Potassium Chloride 10 meq/ (Premix) 100 mls @ 100 mls/hr IV Q1H [facility] Stop: 09/27/21 23:29 Last Admin: 09/27/21 22:25 Dose: 100 mls/hr Documented by: Potassium Chloride/Dextrose/Sod Cl (D5 1/2 Ns W/ 20 Meq/L Kcl) 1,000 mls @ 200 mls/hr IV ASDIRECTED [facility] Stop: 09/28/21 11:00 Last Admin: 09/28/21 05:10 Dose: 200 mls/hr Documented by: Insulin Human Regular (Insulin Regular, Human 100 Units/Ml 3 Ml Vial) 6 unit IV ONETIME ONE Stop: 09/27/21 01:51 Last Admin: 09/27/21 02:03 Dose: 6 unit Documented by: Ondansetron HCl (Ondansetron 4 Mg/2 Ml Sdv) 4 mg IVPUSH ONETIME ONE Stop: 09/27/21 01:52 Last Admin: 09/27/21 02:03 Dose: 4 mg Documented by:
[2021-09-28 15:51] VITALS: BP 117/76
== END 2021-09-28 15:45 | disposition home or self-care (01) | DRG 637 ==
LOC: JD.ED 01:25 → JD.ICU 09:34
PROVIDERS: ADMIT Family Medicine; ATTEND Internal Medicine
DX: E11.10 Type 2 diabetes mellitus with ketoacidosis without coma (principal); I40.0 Infective myocarditis; U07.1 COVID-19; K29.71 Gastritis, unspecified, with bleeding; K20.91 Esophagitis, unspecified with bleeding; N17.9 Acute kidney failure, unspecified; R82.81 Pyuria; B97.29 Other coronavirus as the cause of diseases classified elsewhere; F41.9 Anxiety disorder, unspecified; E87.5 Hyperkalemia; E10.10 Type 1 diabetes mellitus with ketoacidosis without coma; J30.9 Allergic rhinitis, unspecified; D50.9 Iron deficiency anemia, unspecified; H54.7 Unspecified visual loss; I10 Essential (primary) hypertension; E10.21 Type 1 diabetes mellitus with diabetic nephropathy; F32.A Depression, unspecified; Z79.4 Long term (current) use of insulin; Z79.899 Other long term (current) drug therapy; Z20.822 Contact with and (suspected) exposure to COVID-19
CPT/HCPCS: 0240U; 36415; 36600; 71045; 80048; 80053; 80306; 80307; 81001; 82009; 82043; 82800; 82803; 82947; 83036; 83540; 83605; 83690; 83735; 84466; 85025; 87086; 96374; 99285; A9270-GY; C9113; J0696; J1815; J1815-GY; J2405; J3475; J3480; J7030; J7120

== ENCOUNTER 2021-11-12 18:37 | Emergency (ER) | payer MEDICAID ==
[~2021-11-12 18:37] MED LIST: Propofol 200 MG/20 ML SDV ONE; Rocuronium 50 MG/5 ML Vial ONE
[2021-11-12] MEDS ORDERED: Sodium Chloride 0.9% 1,000 ML IV SCH (19:00)
[2021-11-12] MEDS ORDERED: propofoL 100 ML ONE (19:18)
[2021-11-12] MEDS ORDERED: Rocuronium 50 MG/5 ML Vial IVPUSH STA ×2 (19:30→22:30)
[2021-11-12] MEDS ORDERED: Propofol 200 MG/20 ML SDV IVPUSH ONE (19:56)
[2021-11-12] MEDS: propofoL 100 ML IV SCH (19:57)
[2021-11-12] MEDS: Sodium Chloride 0.9% 1,000 ML IV ONE ×9 (20:54→22:56)
[2021-11-12] MEDS ORDERED: Sodium Chloride 0.9% 1,000 ML IV ONE ×3 (20:57→22:50)
[2021-11-13] MEDS: propofoL 100 ML IV SCH (00:01)
[2021-11-13] MEDS: Sodium Chloride 0.9% 1,000 ML IV ONE ×2 (00:16→00:17)
[2021-11-13 01:04] VITALS: BP 102/62; PULSE 147
== END 2021-11-13 00:18 ==
LOC: JD.ED 18:37
DX: E10.10 Type 1 diabetes mellitus with ketoacidosis without coma (principal); E10.21 Type 1 diabetes mellitus with diabetic nephropathy; I10 Essential (primary) hypertension; Z20.822 Contact with and (suspected) exposure to COVID-19
CPT/HCPCS: 31500; 36415; 36600; 51702; 71045; 80048; 80053; 80306; 81001; 82009; 82803; 82947; 83605; 83735; 83880; 83930; 84100; 85025; 85610; 85730; 86140; 87040; 87635; 93005; 99285; J1815; J2704; J7030; U0002

== ENCOUNTER 2021-11-25 17:43 | Emergency (ER) | payer MEDICAID ==
[2021-11-25] MEDS ORDERED: Sodium Chloride 0.9% 10 ML Syringe FLUSH PRN (18:20)
[2021-11-25] MEDS: Sodium Chloride 0.9% 1,000 ML IV SCH ×3 (18:30→23:01)
[2021-11-25 18:33] VITALS: PULSE 58
[2021-11-25] MEDS ORDERED: Lactated Ringers 1,000 ML IV ONE ×2 (18:50→19:45)
[2021-11-25] MEDS ORDERED: Norepinephrine 4 MG/4 ML SDV ONE ×2 (18:57→21:38)
[2021-11-25] MEDS ORDERED: Succinylcholine 200 MG/10 ML MDV ONE (19:00)
[2021-11-25] MEDS ORDERED: Etomidate 2 MG/ML 20 ML SDV IVPUSH ONE (19:00)
[2021-11-25] MEDS: Norepinephrine 4 MG in Dextrose 5% in Water 246 ML IV SCH ×4 (19:00→22:08)
[2021-11-25] MEDS ORDERED: Midazolam 1 MG/ML 5 ML SDV ONE (19:00)
[2021-11-25] MEDS ORDERED: Rocuronium 50 MG/5 ML Vial ONE ×2 (19:00→22:54)
[2021-11-25] MEDS ORDERED: propofoL 100 ML ONE (19:28)
[2021-11-25] MEDS: propofoL 100 ML IV SCH ×2 (19:40→22:41)
[2021-11-25 19:56] LABS: CORONAVIRUS COVID-19 NAA NEGATIVE (NEGATIVE)
[2021-11-25] MEDS ORDERED: Calcium Gluconate 10% 1 GM/10 ML SDV IVPUSH ONE (20:00)
[2021-11-25] MEDS ORDERED: Sodium Bicarbonate 8.4% 50 MEQ/50 ML Syringe IVPUSH ONE (20:00)
[2021-11-25] MEDS ORDERED: Albuterol 0.083% 2.5 MG/3 ML Neb Soln NEB ONE (20:01)
[2021-11-25] MEDS ORDERED: Insulin Regular, Human 100 Units/ML 3 ML Vial IV ONE (20:18)
[2021-11-25] MEDS ORDERED: Sodium Chloride 0.9% 1,000 ML IV ONE (20:55)
[2021-11-25] MEDS ORDERED: Insulin Regular, Human 100 Units/ML 3 ML Vial IV STA (22:41)
[2021-11-25] MEDS ORDERED: Rocuronium 100 MG/10 ML MDV IV STA (22:57)
[2021-11-25] MEDS ORDERED: Rocuronium 50 MG/5 ML Vial IV STA (22:57)
[2021-11-26] MEDS ORDERED: Sodium Chloride 0.9% 1,000 ML ONE ×2 (00:06→01:08)
[2021-11-26] MEDS: Sodium Chloride 0.9% 1,000 ML IV SCH ×3 (00:07→02:15)
[2021-11-26] MEDS ORDERED: Sodium Bicarbonate 150 MEQ in Dextrose 5% in Water 1,000 ML IV ONE ×2 (00:44)
[2021-11-26] MEDS ORDERED: Rocuronium 50 MG/5 ML Vial ONE (00:51)
[2021-11-26] MEDS ORDERED: Rocuronium 50 MG/5 ML Vial IVPUSH ONE (01:05)
[2021-11-26] MEDS: propofoL 100 ML IV SCH (02:15)
[2021-11-26] MEDS: Norepinephrine 4 MG in Dextrose 5% in Water 246 ML IV SCH ×2 (02:20)
[2021-11-26 02:50] VITALS: BP 109/51
== END 2021-11-26 02:25 ==
LOC: JD.ED 17:43
DX: E10.10 Type 1 diabetes mellitus with ketoacidosis without coma (principal); I10 Essential (primary) hypertension; Z20.822 Contact with and (suspected) exposure to COVID-19
CPT/HCPCS: 0240U; 31500; 36415; 36556; 36600; 80048; 80053; 80306; 80307; 81001; 82009; 82803; 83605; 83930; 85025; 86140; 93005; 96365; 96366; 96368; 96375; 96376; 99285; J0330; J0610; J1815; J2250; J2704; J3490; J7030; J7060; J7120; 93010

== ENCOUNTER 2022-04-15 18:11 | Inpatient (IN) | payer MEDICAID ==
[2022-04-15] MEDS ORDERED: Sodium Chloride 0.9% 1,000 ML IV ONE (19:08)
[2022-04-15] MEDS ORDERED: Ondansetron 4 MG/2 ML SDV IVPUSH ONE ×2 (19:09)
[2022-04-15] MEDS ORDERED: Sodium Chloride 0.9% 1,000 ML IV SCH (19:15)
[2022-04-15] MEDS ORDERED: Insulin Regular, Human 100 Units/ML 3 ML Vial SUBCUT ONE (20:21)
[2022-04-15] MEDS ORDERED: Dextrose 5%-0.9% NaCl 1,000 ML IV SCH (20:30)
[2022-04-15] MEDS ORDERED: Ondansetron 4 MG Tab.DIS PO PRN (21:23)
[2022-04-15] MEDS ORDERED: Acetaminophen 325 MG Tab PO PRN (21:23)
[2022-04-15] MEDS ORDERED: Acetaminophen/HYDROcodone 325-5 MG Tab PO PRN (21:23)
[2022-04-15] MEDS ORDERED: 50% Dextrose in Water 50 ML Syringe IVPUSH PRN (21:42)
[2022-04-16] MEDS: Dextrose 5%-0.9% NaCl 1,000 ML IV SCH ×2 (01:23→05:18)
[2022-04-16] MEDS ORDERED: Dextrose 5%-0.9% NaCl 1,000 ML IV SCH (06:30)
[2022-04-16] MEDS ORDERED: Sodium Chloride 0.9% 1,000 ML IV SCH (07:00)
[2022-04-16] MEDS ORDERED: Potassium Chloride 20 MEQ Tab.ER PO ONE (08:00)
[2022-04-16] MEDS ORDERED: Enoxaparin 40 MG/0.4 ML Syringe SUBCUT SCH (09:00)
[2022-04-16] MEDS: Insulin Lispro 100 Unit/ML 3 ML KwikPen SUBCUT SCH ×3 (09:40→15:47)
[2022-04-16] MEDS ORDERED: Loperamide 2 MG Cap PO ONE (09:42)
[2022-04-16] MEDS ORDERED: Insulin Lispro 100 Unit/ML 3 ML KwikPen SUBCUT ONE ×2 (09:42→11:30)
[2022-04-16 16:46] VITALS: BP 138/87; PULSE 104
[2022-04-16] MEDS ORDERED: Metoprolol Succinate 50 MG Tab.ER PO SCH (21:00)
== END 2022-04-16 17:03 | disposition home or self-care (01) | DRG 639 ==
LOC: JD.ED 18:11 → JD.ICU 21:23
PROVIDERS: ADMIT Hospitalist; ATTEND Hospitalist
DX: E10.10 Type 1 diabetes mellitus with ketoacidosis without coma (principal); R10.9 Unspecified abdominal pain; I10 Essential (primary) hypertension; E10.21 Type 1 diabetes mellitus with diabetic nephropathy; F32.A Depression, unspecified; Z79.4 Long term (current) use of insulin; Z79.899 Other long term (current) drug therapy; E10.42 Type 1 diabetes mellitus with diabetic polyneuropathy; H54.7 Unspecified visual loss; E86.0 Dehydration; Z20.822 Contact with and (suspected) exposure to COVID-19; Z86.16 Personal history of COVID-19
CPT/HCPCS: 36415; 36600; 80053; 82009; 82803; 82947; 83605; 83690; 85025; 87040; 87635; J1815; J2405; J7030; J7042; 71046; 71046-26; 80048; 81001; 84484; 96361; 96374; 99285-25; A9270-GY; U0002

== ENCOUNTER 2022-10-07 06:46 | Inpatient (IN) | payer MEDICAID ==
[2022-10-07] MEDS ORDERED: Sodium Chloride 0.9% 10 ML Syringe FLUSH PRN (07:01)
[2022-10-07] MEDS ORDERED: Ondansetron 4 MG/2 ML SDV IVPUSH ONE (07:01)
[2022-10-07] MEDS ORDERED: Lactated Ringers 1,000 ML IV ONE ×5 (07:05→12:35)
[2022-10-07] MEDS ORDERED: HYDROmorphone 1 MG/ML Syringe IVPUSH ONE (07:07)
[2022-10-07 08:24] LABS: ESTIMATED GFR 36 mL/min (>60)
[2022-10-07] MEDS ORDERED: Lactated Ringers 1,000 ML ONE (08:36)
[2022-10-07] MEDS: Insulin Regular in 0.9 % NACL 100 ML IV SCH ×2 (09:05→20:54)
[2022-10-07] MEDS ORDERED: Lactated Ringers 500 ML IV ONE (13:43)
[2022-10-07] MEDS ORDERED: Dextrose 5%-0.45% NaCl 1,000 ML IV SCH (14:30)
[2022-10-07] MEDS ORDERED: Sodium Chloride 0.45% 1,000 ML IV SCH (14:30)
[2022-10-07] MEDS: NS + KCl 20mEq/L 1,000 ML IV SCH ×2 (16:30→20:00)
[2022-10-07] MEDS: Albuterol 6.7 GM Inhaler INH PRN ×2 (18:39→22:12)
[2022-10-07 23:08] LABS: ESTIMATED GFR 47 mL/min (>60)
[2022-10-08] MEDS: Potassium Chloride 10 MEQ in Premix Bag 1 BAG IV SCH ×4 (00:18→03:22)
[2022-10-08] MEDS: Insulin Lispro 100 Unit/ML 3 ML KwikPen SUBCUT SCH ×5 (03:17→16:41)
[2022-10-08 06:32] LABS: ESTIMATED GFR 66 mL/min (>60)
[2022-10-08] MEDS: Acetaminophen 325 MG Tab PO PRN ×2 (07:59→18:48)
[2022-10-08] MEDS ORDERED: Sodium Chloride 0.9% 1,000 ML IV SCH (09:00)
[2022-10-08] MEDS ORDERED: Insulin Regular, Human 100 Units/ML 3 ML Vial SUBCUT ONE (18:44)
[2022-10-08] MEDS ORDERED: Insulin Lispro 100 Unit/ML 3 ML KwikPen SUBCUT ONE (18:49)
[2022-10-08] MEDS ORDERED: Metoprolol Succinate 50 MG Tab.ER PO SCH (21:00)
[2022-10-09] MEDS ORDERED: Insulin Lispro 100 Unit/ML 3 ML KwikPen SUBCUT ONE (02:25)
[2022-10-09 04:16] VITALS: PULSE 104
[2022-10-09] MEDS: Insulin Lispro 100 Unit/ML 3 ML KwikPen SUBCUT SCH ×2 (07:12→11:24)
[2022-10-09] MEDS ORDERED: Rosuvastatin 10 MG Tab PO SCH (09:00)
[2022-10-09 20:02] VITALS: BP 145/102
== END 2022-10-09 18:30 | disposition home or self-care (01) | DRG 919 ==
LOC: JD.ED 06:46 → JD.ICU 16:17
PROVIDERS: ADMIT Pediatrics; ATTEND Pediatrics
DX: T85.694A Other mechanical complication of insulin pump, initial encounter (principal); E10.10 Type 1 diabetes mellitus with ketoacidosis without coma; E87.1 Hypo-osmolality and hyponatremia; N17.9 Acute kidney failure, unspecified; E87.5 Hyperkalemia; F17.220 Nicotine dependence, chewing tobacco, uncomplicated; R77.8 Other specified abnormalities of plasma proteins; T38.3X6A Underdosing of insulin and oral hypoglycemic [antidiabetic] drugs, initial encounter; D72.825 Bandemia; E86.0 Dehydration; Z20.822 Contact with and (suspected) exposure to COVID-19; H54.7 Unspecified visual loss; I12.9 Hypertensive chronic kidney disease with stage 1 through stage 4 chronic kidney disease, or unspecified chronic kidney disease; N18.2 Chronic kidney disease, stage 2 (mild); E10.21 Type 1 diabetes mellitus with diabetic nephropathy; J45.909 Unspecified asthma, uncomplicated; F32.A Depression, unspecified; Z91.14 Patient's other noncompliance with medication regimen; Z86.16 Personal history of COVID-19
CPT/HCPCS: 36410; 36415; 36600; 80048; 80053; 81001; 82009; 82803; 82947; 83605; 83690; 83735; 83930; 84100; 84484; 85025; 86140; 93005; 94640; 96361; 96374; 96375; 97110-GP; 97162-GP; 99285-25; A9270-GY; J1170; J1815; J2405; J3480; J3490; J7030; J7042; J7120

== ENCOUNTER 2022-12-13 21:58 | Emergency (ER) | payer MEDICAID ==
[2022-12-13] MEDS ORDERED: Sodium Chloride 0.9% 10 ML Syringe FLUSH PRN (22:06)
[2022-12-13] MEDS ORDERED: Ondansetron 4 MG/2 ML SDV IVPUSH ONE (22:12)
[2022-12-13] MEDS ORDERED: Sodium Chloride 0.9% 1,000 ML IV SCH (22:15)
[2022-12-13] MEDS ORDERED: Insulin Regular, Human 100 Units/ML 3 ML Vial IV ONE (22:27)
[2022-12-13] MEDS ORDERED: Insulin Regular in 0.9 % NACL 100 ML IV SCH (22:30)
[2022-12-13 22:44] LABS: HEMOGLOBIN A1C 7.9 %
[2022-12-13] MEDS ORDERED: Sodium Chloride 0.9% 1,000 ML IV ONE (23:42)
[2022-12-14] MEDS ORDERED: NS + KCl 20mEq/L 1,000 ML IV SCH (01:15)
[2022-12-14] MEDS ORDERED: Ondansetron 4 MG/2 ML SDV IVPUSH ONE (03:55)
[2022-12-14] MEDS ORDERED: Sodium Chloride 0.9% 500 ML IV ONE (04:27)
[2022-12-14] MEDS ORDERED: Sodium Chloride 0.9% 1,000 ML IV SCH (04:30)
[2022-12-14] MEDS ORDERED: Potassium Chloride 10 MEQ in Premix Bag 1 BAG IV SCH (04:30)
[2022-12-14] MEDS ORDERED: Metoclopramide 10 MG/2 ML SDV IVPUSH ONE (04:38)
[2022-12-14] MEDS ORDERED: Metoclopramide 10 MG/2 ML SDV ONE (04:56)
[2022-12-14 06:32] VITALS: BP 141/75; PULSE 121
== END 2022-12-14 05:15 ==
LOC: JD.ED 21:58
DX: N17.9 Acute kidney failure, unspecified (principal); I12.9 Hypertensive chronic kidney disease with stage 1 through stage 4 chronic kidney disease, or unspecified chronic kidney disease; E10.10 Type 1 diabetes mellitus with ketoacidosis without coma; E10.22 Type 1 diabetes mellitus with diabetic chronic kidney disease; E10.21 Type 1 diabetes mellitus with diabetic nephropathy; N18.9 Chronic kidney disease, unspecified
CPT/HCPCS: 36415; 80048; 80053; 81001; 82009; 82803; 82947; 83036; 83605; 83735; 84100; 85025; 87040; 96361; 96365; 96375; 96376; 99285; J1815; J2405; J2765; J3480; J3490; J7030

== ENCOUNTER 2023-02-18 04:20 | Inpatient (IN) | payer MEDICAID ==
[2023-02-18] MEDS ORDERED: Sodium Chloride 0.9% 1,000 ML ONE ×2 (04:47→06:30)
[2023-02-18] MEDS ORDERED: Ondansetron 4 MG/2 ML SDV IVPUSH ONE (04:59)
[2023-02-18] MEDS ORDERED: Sodium Chloride 0.9% 1,000 ML IV ONE ×2 (04:59→06:30)
[2023-02-18] MEDS ORDERED: Insulin Regular, Human 100 Units/ML 3 ML Vial IV ONE ×2 (05:01→07:28)
[2023-02-18] MEDS ORDERED: Insulin Regular in 0.9 % NACL 100 ML IV SCH (06:00)
[2023-02-18 06:01] LABS: A/G RATIO 0.8 (1-2); ALBUMIN 3.7 g/dl (3.4-5.0); BILIRUBIN TOTAL 0.5 mg/dL (0.2-1.0); BUN/CREATININE RATIO 13.6 (14-18); CALCIUM 8.7 mg/dL (8.5-10.1); CREATININE 2.2 mg/dL (0.7-1.3); EST CRCL DRUG DOSING (CG) 43.74 mL/min; POTASSIUM,K 5.6 mEq/L (3.5-5.1); PROTEIN TOTAL,TP 8.1 g/dl (6.4-8.2)
[2023-02-18 06:07] LABS: BASOPHILS ABSOLUTE AUTO 0.06 K/mm3 (0.01-0.08); BASOPHILS PERCENT AUTO 0.4 % (0.1-1.2); EOSINOPHILS ABSOLUTE AUTO 0.02 K/mm3 (0.04-0.54); EOSINOPHILS PERCENT AUTO 0.1 (0.8-7.0); HEMATOCRIT 37.4 % (40.1-51.0); HEMOGLOBIN 12.6 gm/dl (13.7-17.5); IMMATURE GRAN ABSOLUTE AUTO 0.08 K/mm3 (0.00-0.10); IMMATURE GRAN PERCENT AUTO 0.5 % (<=1.0); LYMPHOCYTES ABSOLUTE AUTO 1.73 K/mm3 (1.32-3.57); LYMPHOCYTES PERCENT AUTO 11.5 % (21.8-53.1); MEAN CORPUSCULAR HEMOGLOBIN 24.3 pg (25.7-32.2); MEAN CORPUSCULAR HGB CONC 33.7 g/dl (32.2-35.5); MEAN CORPUSCULAR VOLUME 72.2 fl (79.0-92.2); MEAN PLATELET VOLUME 11.1 fl (9.4-12.3); MONOCYTES ABSOLUTE AUTO 0.72 K/mm3 (0.30-0.82); MONOCYTES PERCENT AUTO 4.8 % (5.3-12.2); NEUTROPHILS ABSOLUTE AUTO 12.44 K/mm3 (1.78-5.38); NEUTROPHILS PERCENT AUTO 82.7 % (34.0-67.9); PLATELET COUNT,PLT 480 K/mm3 (163-337); RED BLOOD CELL COUNT 5.18 M/mm3 (4.63-6.08); WHITE BLOOD CELL COUNT,WBC 15.05 K/mm3 (4.23-9.07)
[2023-02-18 06:07] LABS: BASE EXCESS VENOUS -23.9 (-4.0-2.0); BICARBONATE,VENOUS 3.9 meq/L (22-26); O2 SATURATION VENOUS 98.7; PH,VENOUS 7.17 (7.30-7.40)
[2023-02-18] MEDS ORDERED: Sodium Bicarbonate 8.4% 50 MEQ/50 ML Syringe IVPUSH ONE (06:25)
[2023-02-18 06:26] LABS: ANION GAP 36.6 (5-15)
[2023-02-18] MEDS ORDERED: Sodium Chloride 0.9% 1,000 ML IV SCH (07:30)
[2023-02-18] MEDS ORDERED: Dextrose 5%-0.9% NaCl 1,000 ML IV SCH (10:00)
[2023-02-18 10:44] LABS: ANION GAP 20.6 (5-15); BUN/CREATININE RATIO 15.3 (14-18); CALCIUM 7.4 mg/dL (8.5-10.1); CREATININE 1.7 mg/dL (0.7-1.3); EST CRCL DRUG DOSING (CG) 56.61 mL/min; POTASSIUM,K 3.6 mEq/L (3.5-5.1)
[2023-02-18 13:49] LABS: ANION GAP 10.9 (5-15); BUN/CREATININE RATIO 14.4 (14-18); CALCIUM 7.2 mg/dL (8.5-10.1); CREATININE 1.6 mg/dL (0.7-1.3); EST CRCL DRUG DOSING (CG) 60.15 mL/min; POTASSIUM,K 2.9 mEq/L (3.5-5.1)
[2023-02-18] MEDS ORDERED: Potassium Chloride 20 MEQ Tab.ER PO ONE ×2 (14:44→21:00)
[2023-02-18] MEDS ORDERED: Ondansetron 4 MG Tab.DIS PO PRN (15:05)
[2023-02-18 16:45] LABS: APPEARANCE,URINE CLEAR (Clear); BILIRUBIN,URINE 1+ (Negative); COLOR,URINE YELLOW (Yellow); GLUCOSE,URINE 2+ (Negative); KETONES,URINE 4+ (Negative); LEUKOCYTE ESTERASE,URINE NEGATIVE (Negative); NITRITE,URINE NEGATIVE (Negative); OCCULT BLOOD,URINE NEGATIVE (Negative); PROTEIN,URINE 3+ (Negative); UROBILINOGEN,URINE 0.2 (0.2-1.0)
[2023-02-18 16:52] LABS: BARBITURATE SCREEN,URINE NEGATIVE (CUTOFF=200); BENZODIAZEPINES SCREEN,URINE NEGATIVE (CUTOFF=150); BUPRENORPHINE SCREEN,URINE NEGATIVE (CUTOFF=10); METHADONE SCREEN, URINE NEGATIVE (CUT0FF=200); METHAMPHETAMINES SCREEN, URINE NEGATIVE (CUTOFF=500); OXYCODONE SCREEN,URINE NEGATIVE (CUT0FF=100); PROPOXYPHENE SCREEN,URINE NEGATIVE (CUTOFF=300); THC SCREEN,URINE 20 NG/ML NEGATIVE (CUTOFF=50)
[2023-02-18 16:56] LABS: AMPHETAMINES SCREEN, URINE NEGATIVE (CUTOFF=500)
[2023-02-18] MEDS: NS + KCl 20mEq/L 1,000 ML IV SCH ×2 (17:02→22:47)
[2023-02-18] MEDS: Acetaminophen 325 MG Tab PO PRN (17:03)
[2023-02-18 17:09] LABS: WBC,URINE 0-5 /hpf (0-5)
[2023-02-18 17:10] LABS: BACTERIA,URINE RARE /hpf (FEW); MUCUS,URINE FEW /hpf (FEW); SQUAMOUS EPITHELIAL CELLS,UR NOT SEEN /hpf (0-5)
[2023-02-18] MEDS: Insulin Lispro 100 Unit/ML 3 ML KwikPen SUBCUT SCH ×2 (17:33→21:15)
[2023-02-19] MEDS: Acetaminophen 325 MG Tab PO PRN ×3 (00:21→15:56)
[2023-02-19] MEDS: Insulin Lispro 100 Unit/ML 3 ML KwikPen SUBCUT SCH ×4 (05:07→11:20)
[2023-02-19 06:12] LABS: BASOPHILS ABSOLUTE AUTO 0.02 K/mm3 (0.01-0.08); BASOPHILS PERCENT AUTO 0.3 % (0.1-1.2); EOSINOPHILS ABSOLUTE AUTO 0.04 K/mm3 (0.04-0.54); EOSINOPHILS PERCENT AUTO 0.5 (0.8-7.0); HEMATOCRIT 33.7 % (40.1-51.0); IMMATURE GRAN ABSOLUTE AUTO 0.03 K/mm3 (0.00-0.10); IMMATURE GRAN PERCENT AUTO 0.4 % (<=1.0); LYMPHOCYTES ABSOLUTE AUTO 2.49 K/mm3 (1.32-3.57); LYMPHOCYTES PERCENT AUTO 31.2 % (21.8-53.1); MEAN CORPUSCULAR HGB CONC 32.6 g/dl (32.2-35.5); MEAN CORPUSCULAR VOLUME 73.4 fl (79.0-92.2); MEAN PLATELET VOLUME 9.9 fl (9.4-12.3); MONOCYTES ABSOLUTE AUTO 0.47 K/mm3 (0.30-0.82); MONOCYTES PERCENT AUTO 5.9 % (5.3-12.2); NEUTROPHILS ABSOLUTE AUTO 4.94 K/mm3 (1.78-5.38); NEUTROPHILS PERCENT AUTO 61.7 % (34.0-67.9); PLATELET COUNT,PLT 279 K/mm3 (163-337); RED BLOOD CELL COUNT 4.59 M/mm3 (4.63-6.08); WHITE BLOOD CELL COUNT,WBC 7.99 K/mm3 (4.23-9.07)
[2023-02-19 06:37] LABS: ANION GAP 27.4 (5-15); CALCIUM 8.1 mg/dL (8.5-10.1); CREATININE 1.5 mg/dL (0.7-1.3); EST CRCL DRUG DOSING (CG) 65.83 mL/min; MAGNESIUM 1.9 mg/dL (1.8-2.4)
[2023-02-19 07:04] LABS: POTASSIUM,K 6.4 mEq/L (3.5-5.1)
[2023-02-19] MEDS ORDERED: Lactated Ringers 1,000 ML IV ONE ×2 (08:13→09:15)
[2023-02-19 13:52] LABS: A/G RATIO 0.8 (1-2); ALBUMIN 2.5 g/dl (3.4-5.0); ANION GAP 11.3 (5-15); BILIRUBIN TOTAL 0.2 mg/dL (0.2-1.0); BUN/CREATININE RATIO 9.3 (14-18); CALCIUM 8.1 mg/dL (8.5-10.1); CREATININE 1.5 mg/dL (0.7-1.3); EST CRCL DRUG DOSING (CG) 65.83 mL/min; POTASSIUM,K 4.3 mEq/L (3.5-5.1); PROTEIN TOTAL,TP 5.7 g/dl (6.4-8.2)
[2023-02-19 16:01] VITALS: PULSE 100
[2023-02-19 16:02] VITALS: BP 141/108
== END 2023-02-19 17:36 | disposition home or self-care (01) | DRG 638 ==
LOC: JD.ED 04:20 → JD.ICU 15:05
PROVIDERS: ADMIT Internal Medicine; ATTEND Internal Medicine
DX: E10.10 Type 1 diabetes mellitus with ketoacidosis without coma (principal); N17.9 Acute kidney failure, unspecified; Z96.41 Presence of insulin pump (external) (internal); N18.2 Chronic kidney disease, stage 2 (mild); Z20.822 Contact with and (suspected) exposure to COVID-19; J45.909 Unspecified asthma, uncomplicated; E10.22 Type 1 diabetes mellitus with diabetic chronic kidney disease; I12.9 Hypertensive chronic kidney disease with stage 1 through stage 4 chronic kidney disease, or unspecified chronic kidney disease; E10.21 Type 1 diabetes mellitus with diabetic nephropathy; F32.A Depression, unspecified; H54.7 Unspecified visual loss; E87.6 Hypokalemia; Z56.0 Unemployment, unspecified; Z79.4 Long term (current) use of insulin; Z91.148 Patient's other noncompliance with medication regimen for other reason; Z79.899 Other long term (current) drug therapy
CPT/HCPCS: 36415; 71045; 71045-26; 80048; 80053; 80306; 81001; 82803; 82947; 83735; 85025; 87040; 93005; 93010; 96361; 96374; 96375; 99284; 99284-25; A9270-GY; J1815; J1815-GY; J2405; J3480; J3490; J7030; J7042; J7120; U0002

== ENCOUNTER 2023-02-23 20:02 | Inpatient (IN) | payer MEDICAID ==
[2023-02-23] MEDS ORDERED: Insulin Regular, Human 100 Units/ML 3 ML Vial IV ONE ×2 (20:42→22:26)
[2023-02-23] MEDS ORDERED: Sodium Chloride 0.9% 1,000 ML IV ONE (20:42)
[2023-02-23 21:02] LABS: BASOPHILS ABSOLUTE AUTO 0.02 K/mm3 (0.01-0.08); BASOPHILS PERCENT AUTO 0.1 % (0.1-1.2); EOSINOPHILS ABSOLUTE AUTO 0.03 K/mm3 (0.04-0.54); EOSINOPHILS PERCENT AUTO 0.2 (0.8-7.0); HEMATOCRIT 33.3 % (40.1-51.0); HEMOGLOBIN 10.7 gm/dl (13.7-17.5); IMMATURE GRAN ABSOLUTE AUTO 0.06 K/mm3 (0.00-0.10); IMMATURE GRAN PERCENT AUTO 0.4 % (<=1.0); LYMPHOCYTES ABSOLUTE AUTO 1.36 K/mm3 (1.32-3.57); LYMPHOCYTES PERCENT AUTO 9.2 % (21.8-53.1); MEAN CORPUSCULAR HEMOGLOBIN 24.2 pg (25.7-32.2); MEAN CORPUSCULAR HGB CONC 32.1 g/dl (32.2-35.5); MEAN CORPUSCULAR VOLUME 75.3 fl (79.0-92.2); MEAN PLATELET VOLUME 9.2 fl (9.4-12.3); MONOCYTES ABSOLUTE AUTO 0.96 K/mm3 (0.30-0.82); MONOCYTES PERCENT AUTO 6.5 % (5.3-12.2); NEUTROPHILS ABSOLUTE AUTO 12.39 K/mm3 (1.78-5.38); NEUTROPHILS PERCENT AUTO 83.6 % (34.0-67.9); PLATELET COUNT,PLT 422 K/mm3 (163-337); RED BLOOD CELL COUNT 4.42 M/mm3 (4.63-6.08); WHITE BLOOD CELL COUNT,WBC 14.82 K/mm3 (4.23-9.07)
[2023-02-23 21:49] LABS: A/G RATIO 0.8 (1-2); ALANINE AMINOTRANSFERASE,ALT 19 U/L (16-63); ALBUMIN 3.1 g/dl (3.4-5.0); ALKALINE PHOSPHATASE 127 U/L (46-116); ASPARTATE AMNIOTRANSFERASE,AST 16 U/L (15-37); BILIRUBIN TOTAL 0.5 mg/dL (0.2-1.0); BLOOD UREA NITROGEN,BUN 31 mg/dL (7-18); BUN/CREATININE RATIO 13.5 (14-18); CALCIUM 7.9 mg/dL (8.5-10.1); CREATININE 2.3 mg/dL (0.7-1.3); ESTIMATED GFR 39 mL/min (>60); PROTEIN TOTAL,TP 6.8 g/dl (6.4-8.2); SODIUM,NA 127 mEq/L (136-145)
[2023-02-23] MEDS ORDERED: Acetaminophen 325 MG Tab PO ONE (21:59)
[2023-02-23 22:07] LABS: CHLORIDE,CL 91 mEq/L (98-107)
[2023-02-23 22:10] LABS: ANION GAP 37.2 (5-15); CARBON DIOXIDE,CO2 5 mEq/L (21-32); GLUCOSE RANDOM 681 mg/dL (70-99)
[2023-02-23 22:11] LABS: POTASSIUM,K 6.2 mEq/L (3.5-5.1)
[2023-02-23] MEDS ORDERED: Sodium Chloride 0.9% 1,000 ML ONE (22:22)
[2023-02-23] MEDS ORDERED: Sodium Chloride 0.9% 1,000 ML IV SCH (22:45)
[2023-02-23] MEDS ORDERED: Insulin Regular in 0.9 % NACL 100 ML IV SCH (22:45)
[2023-02-23] MEDS ORDERED: Glucose Gel 15 GM in 37.5 GM Tube PO ONE (23:14)
[2023-02-23] MEDS ORDERED: Albuterol/Ipratropium 3.0-0.5 MG/3 ML Neb Soln NEB PRN (23:14)
[2023-02-23 23:41] LABS: ANION GAP 31.1 (5-15); BUN/CREATININE RATIO 14.1 (14-18); CALCIUM 7.3 mg/dL (8.5-10.1); CREATININE 2.2 mg/dL (0.7-1.3)
[2023-02-23 23:59] LABS: EST CRCL DRUG DOSING (CG) 46.16 mL/min; POTASSIUM,K 4.1 mEq/L (3.5-5.1)
[2023-02-24] MEDS: D5 1/2 NS w/ 20 mEq/L KCl 1,000 ML IV SCH ×2 (01:33→05:34)
[2023-02-24] MEDS ORDERED: Acetaminophen 650 MG Supp RECTAL PRN (02:00)
[2023-02-24 03:14] LABS: BASOPHILS ABSOLUTE AUTO 0.01 K/mm3 (0.01-0.08); BASOPHILS PERCENT AUTO 0.1 % (0.1-1.2); EOSINOPHILS PERCENT AUTO 0 (0.8-7.0); HEMATOCRIT 27.6 % (40.1-51.0); IMMATURE GRAN ABSOLUTE AUTO 0.03 K/mm3 (0.00-0.10); IMMATURE GRAN PERCENT AUTO 0.3 % (<=1.0); LYMPHOCYTES ABSOLUTE AUTO 1.98 K/mm3 (1.32-3.57); LYMPHOCYTES PERCENT AUTO 21.9 % (21.8-53.1); MEAN CORPUSCULAR HEMOGLOBIN 24.1 pg (25.7-32.2); MEAN PLATELET VOLUME 8.5 fl (9.4-12.3); MONOCYTES ABSOLUTE AUTO 0.75 K/mm3 (0.30-0.82); MONOCYTES PERCENT AUTO 8.3 % (5.3-12.2); NEUTROPHILS ABSOLUTE AUTO 6.27 K/mm3 (1.78-5.38); NEUTROPHILS PERCENT AUTO 69.4 % (34.0-67.9); PLATELET COUNT,PLT 250 K/mm3 (163-337); RED BLOOD CELL COUNT 3.78 M/mm3 (4.63-6.08); WHITE BLOOD CELL COUNT,WBC 9.04 K/mm3 (4.23-9.07)
[2023-02-24] MEDS: Ondansetron 4 MG/2 ML SDV IV PRN ×2 (03:19→12:34)
[2023-02-24 03:24] LABS: HEMOGLOBIN 9.1 gm/dl (13.7-17.5)
[2023-02-24 03:32] LABS: ANION GAP 18.9 (5-15); CALCIUM 7.2 mg/dL (8.5-10.1); CREATININE 1.8 mg/dL (0.7-1.3); EST CRCL DRUG DOSING (CG) 56.42 mL/min; POTASSIUM,K 3.9 mEq/L (3.5-5.1)
[2023-02-24] MEDS: Acetaminophen 325 MG Tab PO PRN ×4 (04:54→23:03)
[2023-02-24 08:07] LABS: ANION GAP 13.9 (5-15); BUN/CREATININE RATIO 14.7 (14-18); CALCIUM 7.3 mg/dL (8.5-10.1); CREATININE 1.5 mg/dL (0.7-1.3); EST CRCL DRUG DOSING (CG) 67.7 mL/min; POTASSIUM,K 3.9 mEq/L (3.5-5.1)
[2023-02-24] MEDS ORDERED: Insulin Glargine,Human Rec. Analog 100 Units/ML 3 ML Pen SUBCUT SCH (09:01)
[2023-02-24] MEDS: Enoxaparin 40 MG/0.4 ML Syringe SUBCUT SCH (09:12)
[2023-02-24] MEDS: Insulin Lispro 100 Unit/ML 3 ML KwikPen SUBCUT SCH ×3 (10:53→21:54)
[2023-02-24 12:15] LABS: ANION GAP 21.2 (5-15); BUN/CREATININE RATIO 11.9 (14-18); CALCIUM 7.6 mg/dL (8.5-10.1); CREATININE 1.6 mg/dL (0.7-1.3); EST CRCL DRUG DOSING (CG) 63.47 mL/min; POTASSIUM,K 4.2 mEq/L (3.5-5.1)
[2023-02-24] MEDS ORDERED: Insulin Lispro 100 Unit/ML 3 ML KwikPen SUBCUT ONE (12:46)
[2023-02-24] MEDS: Insulin Glargine,Human Rec. Analog 100 Units/ML 3 ML Pen SUBCUT SCH (21:53)
[2023-02-25 06:06] LABS: ANION GAP 12.7 (5-15); BASOPHILS ABSOLUTE AUTO 0.01 K/mm3 (0.01-0.08); BASOPHILS PERCENT AUTO 0.2 % (0.1-1.2); BUN/CREATININE RATIO 9.2 (14-18); CALCIUM 7.9 mg/dL (8.5-10.1); CREATININE 1.3 mg/dL (0.7-1.3); EOSINOPHILS ABSOLUTE AUTO 0.03 K/mm3 (0.04-0.54); EOSINOPHILS PERCENT AUTO 0.7 (0.8-7.0); EST CRCL DRUG DOSING (CG) 78.06 mL/min; HEMATOCRIT 27.6 % (40.1-51.0); IMMATURE GRAN ABSOLUTE AUTO 0.01 K/mm3 (0.00-0.10); IMMATURE GRAN PERCENT AUTO 0.2 % (<=1.0); LYMPHOCYTES ABSOLUTE AUTO 1.58 K/mm3 (1.32-3.57); LYMPHOCYTES PERCENT AUTO 37.2 % (21.8-53.1); MEAN CORPUSCULAR HEMOGLOBIN 24.2 pg (25.7-32.2); MEAN CORPUSCULAR HGB CONC 32.6 g/dl (32.2-35.5); MEAN CORPUSCULAR VOLUME 74.2 fl (79.0-92.2); MEAN PLATELET VOLUME 8.6 fl (9.4-12.3); MONOCYTES ABSOLUTE AUTO 0.29 K/mm3 (0.30-0.82); MONOCYTES PERCENT AUTO 6.8 % (5.3-12.2); NEUTROPHILS ABSOLUTE AUTO 2.33 K/mm3 (1.78-5.38); NEUTROPHILS PERCENT AUTO 54.9 % (34.0-67.9); PLATELET COUNT,PLT 230 K/mm3 (163-337); POTASSIUM,K 3.7 mEq/L (3.5-5.1); RED BLOOD CELL COUNT 3.72 M/mm3 (4.63-6.08); WHITE BLOOD CELL COUNT,WBC 4.25 K/mm3 (4.23-9.07)
[2023-02-25] MEDS: Acetaminophen 325 MG Tab PO PRN (06:33)
[2023-02-25] MEDS: Insulin Lispro 100 Unit/ML 3 ML KwikPen SUBCUT SCH ×2 (07:56→12:28)
[2023-02-25] MEDS: Enoxaparin 40 MG/0.4 ML Syringe SUBCUT SCH (08:00)
[2023-02-25] MEDS: Insulin Glargine,Human Rec. Analog 100 Units/ML 3 ML Pen SUBCUT SCH (08:00)
[2023-02-25 17:09] VITALS: BP 152/99; PULSE 97
== END 2023-02-25 17:30 | disposition home or self-care (01) | DRG 638 ==
LOC: JD.ED 20:02 → JD.ICU 22:34 → JD.MS 02-24 19:20
PROVIDERS: ADMIT Hospitalist; ATTEND Hospitalist
DX: E10.10 Type 1 diabetes mellitus with ketoacidosis without coma (principal); N17.9 Acute kidney failure, unspecified; R65.10 Systemic inflammatory response syndrome (SIRS) of non-infectious origin without acute organ dysfunction; E87.5 Hyperkalemia; H54.7 Unspecified visual loss; J45.909 Unspecified asthma, uncomplicated; E10.21 Type 1 diabetes mellitus with diabetic nephropathy; E10.22 Type 1 diabetes mellitus with diabetic chronic kidney disease; F32.A Depression, unspecified; Z98.890 Other specified postprocedural states; Z79.899 Other long term (current) drug therapy
CPT/HCPCS: 36415; 80048; 80053; 82009; 82947; 84132; 85025; 94762; 96360; 96361; 99285; 99285-25; A9270-GY; J1650; J1815; J1815-GY; J2405; J3480; J7030

== ENCOUNTER 2023-03-24 14:26 | Inpatient (IN) | payer MEDICAID ==
[2023-03-24] MEDS ORDERED: Sodium Chloride 0.9% 10 ML Syringe FLUSH PRN (14:33)
[2023-03-24] MEDS ORDERED: Lactated Ringers 1,000 ML IV ONE ×2 (14:35→19:47)
[2023-03-24] MEDS ORDERED: Sodium Chloride 0.9% 1,000 ML IV ONE ×4 (14:37→17:48)
[2023-03-24 14:51] LABS: BASE EXCESS ARTERIAL -28.8 (-2-2.0); O2 SATURATION ARTERIAL 92.2 % (96.0-97.0)
[2023-03-24 14:53] LABS: BICARBONATE,ARTERIAL 1.8 meq/L (22.0-26.0); PCO2 ARTERIAL 8.1 mmHg (35.0-45.0)
[2023-03-24] MEDS ORDERED: Insulin Regular, Human 100 Units/ML 3 ML Vial IV ONE ×2 (14:57→15:43)
[2023-03-24 15:13] LABS: BASOPHILS ABSOLUTE AUTO 0.03 K/mm3 (0.01-0.08); BASOPHILS PERCENT AUTO 0.2 % (0.1-1.2); EOSINOPHILS ABSOLUTE AUTO 0.02 K/mm3 (0.04-0.54); EOSINOPHILS PERCENT AUTO 0.1 (0.8-7.0); HEMATOCRIT 34.3 % (40.1-51.0); IMMATURE GRAN ABSOLUTE AUTO 0.08 K/mm3 (0.00-0.10); IMMATURE GRAN PERCENT AUTO 0.4 % (<=1.0); LYMPHOCYTES ABSOLUTE AUTO 1.47 K/mm3 (1.32-3.57); LYMPHOCYTES PERCENT AUTO 7.8 % (21.8-53.1); MEAN CORPUSCULAR HEMOGLOBIN 25.5 pg (25.7-32.2); MEAN CORPUSCULAR HGB CONC 32.1 g/dl (32.2-35.5); MEAN PLATELET VOLUME 9.7 fl (9.4-12.3); MONOCYTES ABSOLUTE AUTO 0.87 K/mm3 (0.30-0.82); MONOCYTES PERCENT AUTO 4.6 % (5.3-12.2); NEUTROPHILS ABSOLUTE AUTO 16.34 K/mm3 (1.78-5.38); NEUTROPHILS PERCENT AUTO 86.9 % (34.0-67.9); RED BLOOD CELL COUNT 4.32 M/mm3 (4.63-6.08); WHITE BLOOD CELL COUNT,WBC 18.81 K/mm3 (4.23-9.07)
[2023-03-24 15:16] LABS: MEAN CORPUSCULAR VOLUME 79.4 fl (79.0-92.2); PLATELET COUNT,PLT 485 K/mm3 (163-337)
[2023-03-24 15:33] LABS: A/G RATIO 0.8 (1-2); ALANINE AMINOTRANSFERASE,ALT 28 U/L (16-63); ALKALINE PHOSPHATASE 150 U/L (46-116); ASPARTATE AMNIOTRANSFERASE,AST 22 U/L (15-37); BILIRUBIN TOTAL 0.7 mg/dL (0.2-1.0); BLOOD UREA NITROGEN,BUN 38 mg/dL (7-18); BUN/CREATININE RATIO 13.6 (14-18); CHLORIDE,CL 88 mEq/L (98-107); CREATININE 2.8 mg/dL (0.7-1.3); EST CRCL DRUG DOSING (CG) 37.19 mL/min; ESTIMATED GFR 31 mL/min (>60); MAGNESIUM 2.2 mg/dL (1.8-2.4); SODIUM,NA 126 mEq/L (136-145)
[2023-03-24 15:34] LABS: CORONAVIRUS COVID-19 NAA NEGATIVE (NEGATIVE); INFLUENZA A NAA NEGATIVE (NEGATIVE)
[2023-03-24 15:36] LABS: LACTIC ACID 1.5 mmol/L (0.4-2.0)
[2023-03-24 15:59] LABS: POTASSIUM,K 6.7 mEq/L (3.5-5.1)
[2023-03-24] MEDS ORDERED: Insulin Regular in 0.9 % NACL 100 ML IV SCH (16:00)
[2023-03-24 16:02] LABS: ANION GAP 39.7 (5-15); C-REACTIVE PROTEIN < 0.2 mg/dL (<1.0); CARBON DIOXIDE,CO2 < 5 mEq/L (21-32)
[2023-03-24 16:03] LABS: GLUCOSE RANDOM 784 mg/dL (70-99)
[2023-03-24 18:17] LABS: BLOOD UREA NITROGEN,BUN 39 mg/dL (7-18); BUN/CREATININE RATIO 14.4 (14-18); CALCIUM 7.4 mg/dL (8.5-10.1); CHLORIDE,CL 95 mEq/L (98-107); CREATININE 2.7 mg/dL (0.7-1.3); EST CRCL DRUG DOSING (CG) 38.57 mL/min; ESTIMATED GFR 32 mL/min (>60); POTASSIUM,K 4.6 mEq/L (3.5-5.1); SODIUM,NA 132 mEq/L (136-145)
[2023-03-24 18:26] LABS: APPEARANCE,URINE CLEAR (Clear); BILIRUBIN,URINE 3+ (Negative); COLOR,URINE YELLOW (Yellow); GLUCOSE,URINE 2+ (Negative); KETONES,URINE 4+ (Negative); LEUKOCYTE ESTERASE,URINE NEGATIVE (Negative); NITRITE,URINE NEGATIVE (Negative); OCCULT BLOOD,URINE 1+ (Negative); PH,URINE 5.5 (5.0-8.0); PROTEIN,URINE 2+ (Negative); UROBILINOGEN,URINE 0.2 (0.2-1.0)
[2023-03-24 18:26] LABS: GLUCOSE RANDOM 703 mg/dL (70-99)
[2023-03-24 18:27] LABS: ANION GAP 36.6 (5-15); CARBON DIOXIDE,CO2 < 5 mEq/L (21-32)
[2023-03-24 18:49] LABS: BARBITURATE SCREEN,URINE NEGATIVE (CUTOFF=200); BENZODIAZEPINES SCREEN,URINE NEGATIVE (CUTOFF=150); BUPRENORPHINE SCREEN,URINE NEGATIVE (CUTOFF=10); METHADONE SCREEN, URINE NEGATIVE (CUT0FF=200); METHAMPHETAMINES SCREEN, URINE NEGATIVE (CUTOFF=500); OXYCODONE SCREEN,URINE NEGATIVE (CUT0FF=100); PROPOXYPHENE SCREEN,URINE NEGATIVE (CUTOFF=300); THC SCREEN,URINE 20 NG/ML NEGATIVE (CUTOFF=50)
[2023-03-24 18:52] LABS: AMPHETAMINES SCREEN, URINE NEGATIVE (CUTOFF=500)
[2023-03-24 18:56] LABS: BACTERIA,URINE FEW /hpf (FEW); EPITHELIAL CELLS,URINE 0-5 /hpf (0-5); FINE GRANULAR CASTS,URINE 0-5 /lpf (0-5); HYALINE CASTS,URINE 0-5 /lpf (0-5); RBC,URINE 0-5 /hpf (0-5); WBC,URINE 0-5 /hpf (0-5)
[2023-03-24 18:57] LABS: AMORPHOUS SEDIMENT,URINE MODERATE /hpf (NOT SEEN); MUCUS,URINE FEW /hpf (FEW)
[2023-03-24] MEDS ORDERED: Lactated Ringers 1,000 ML IV SCH (19:30)
[2023-03-24] MEDS ORDERED: Dextrose 5%-Lact Ringers w/KCl 1,000 ML IV SCH (20:30)
[2023-03-24 20:32] LABS: BUN/CREATININE RATIO 13.6 (14-18); CALCIUM 7.2 mg/dL (8.5-10.1); CREATININE 2.5 mg/dL (0.7-1.3); EST CRCL DRUG DOSING (CG) 41.65 mL/min
[2023-03-24] MEDS ORDERED: Albuterol/Ipratropium 3.0-0.5 MG/3 ML Neb Soln NEB PRN (20:34)
[2023-03-24] MEDS ORDERED: Ondansetron 4 MG/2 ML SDV IV PRN (20:34)
[2023-03-24] MEDS ORDERED: HYDROmorphone 0.5 MG/0.5 ML Syringe IVPUSH PRN (20:34)
[2023-03-24] MEDS ORDERED: Naloxone 0.4 MG/ML SDV IVPUSH PRN (20:42)
[2023-03-24] MEDS ORDERED: D5 1/2 NS w/ 20 mEq/L KCl 1,000 ML IV SCH ×2 (21:00→22:45)
[2023-03-24 23:21] LABS: BUN/CREATININE RATIO 13.2 (14-18); CREATININE 2.2 mg/dL (0.7-1.3); EST CRCL DRUG DOSING (CG) 44.07 mL/min; POTASSIUM,K 3.7 mEq/L (3.5-5.1)
[2023-03-24 23:28] LABS: ANION GAP 18.7 (5-15)
[2023-03-25] MEDS: 50% Dextrose in Water 50 ML Syringe IVPUSH PRN ×4 (00:14→23:32)
[2023-03-25] MEDS ORDERED: D5 1/2 NS w/ 20 mEq/L KCl 1,000 ML IV SCH ×2 (00:30→15:30)
[2023-03-25] MEDS: D5 1/2 NS w/ 20 mEq/L KCl 1,000 ML IV SCH ×4 (01:52→17:06)
[2023-03-25 03:49] LABS: ANION GAP 13.7 (5-15); BUN/CREATININE RATIO 13.9 (14-18); CALCIUM 7.3 mg/dL (8.5-10.1); CREATININE 1.8 mg/dL (0.7-1.3); EST CRCL DRUG DOSING (CG) 53.86 mL/min; POTASSIUM,K 3.7 mEq/L (3.5-5.1)
[2023-03-25] MEDS: Insulin Glargine,Human Rec. Analog 100 Units/ML 3 ML Pen SUBCUT SCH (04:27)
[2023-03-25] MEDS: Insulin Lispro 100 Unit/ML 3 ML KwikPen SUBCUT SCH ×5 (06:10→23:38)
[2023-03-25 06:27] LABS: BASOPHILS ABSOLUTE AUTO 0.01 K/mm3 (0.01-0.08); BASOPHILS PERCENT AUTO 0.2 % (0.1-1.2); EOSINOPHILS ABSOLUTE AUTO 0.03 K/mm3 (0.04-0.54); EOSINOPHILS PERCENT AUTO 0.6 (0.8-7.0); HEMATOCRIT 28.7 % (40.1-51.0); IMMATURE GRAN ABSOLUTE AUTO 0.01 K/mm3 (0.00-0.10); IMMATURE GRAN PERCENT AUTO 0.2 % (<=1.0); LYMPHOCYTES ABSOLUTE AUTO 0.83 K/mm3 (1.32-3.57); LYMPHOCYTES PERCENT AUTO 16.7 % (21.8-53.1); MEAN CORPUSCULAR HEMOGLOBIN 24.6 pg (25.7-32.2); MEAN CORPUSCULAR HGB CONC 32.1 g/dl (32.2-35.5); MEAN CORPUSCULAR VOLUME 76.7 fl (79.0-92.2); MEAN PLATELET VOLUME 9.5 fl (9.4-12.3); MONOCYTES ABSOLUTE AUTO 0.67 K/mm3 (0.30-0.82); MONOCYTES PERCENT AUTO 13.5 % (5.3-12.2); NEUTROPHILS ABSOLUTE AUTO 3.41 K/mm3 (1.78-5.38); NEUTROPHILS PERCENT AUTO 68.8 % (34.0-67.9); PLATELET COUNT,PLT 237 K/mm3 (163-337); RED BLOOD CELL COUNT 3.74 M/mm3 (4.63-6.08); WHITE BLOOD CELL COUNT,WBC 4.96 K/mm3 (4.23-9.07)
[2023-03-25 06:37] LABS: A/G RATIO 0.8 (1-2); ALBUMIN 2.4 g/dl (3.4-5.0); ANION GAP 19.2 (5-15); BILIRUBIN TOTAL 0.2 mg/dL (0.2-1.0); BUN/CREATININE RATIO 12.9 (14-18); CALCIUM 7.5 mg/dL (8.5-10.1); CREATININE 1.7 mg/dL (0.7-1.3); EST CRCL DRUG DOSING (CG) 57.03 mL/min; MAGNESIUM 1.7 mg/dL (1.8-2.4); PHOSPHORUS 1.6 mg/dL (2.6-4.7); POTASSIUM,K 4.2 mEq/L (3.5-5.1); PROTEIN TOTAL,TP 5.6 g/dl (6.4-8.2)
[2023-03-25 06:40] LABS: HEMOGLOBIN 9.2 gm/dl (13.7-17.5)
[2023-03-25] MEDS: Enoxaparin 40 MG/0.4 ML Syringe SUBCUT SCH ×2 (08:59→09:00)
[2023-03-25] MEDS: Acetaminophen 325 MG Tab PO PRN ×2 (11:41→19:39)
[2023-03-25 12:21] LABS: ANION GAP 17.2 (5-15); BUN/CREATININE RATIO 10.6 (14-18); CALCIUM 7.7 mg/dL (8.5-10.1); CREATININE 1.6 mg/dL (0.7-1.3); EST CRCL DRUG DOSING (CG) 60.6 mL/min; POTASSIUM,K 4.2 mEq/L (3.5-5.1)
[2023-03-25 14:47] LABS: CALCIUM 7.4 mg/dL (8.5-10.1); CREATININE 1.6 mg/dL (0.7-1.3); EST CRCL DRUG DOSING (CG) 60.6 mL/min
[2023-03-25 18:55] LABS: ANION GAP 12.7 (5-15); BUN/CREATININE RATIO 9.3 (14-18); CALCIUM 7.8 mg/dL (8.5-10.1); CREATININE 1.5 mg/dL (0.7-1.3); EST CRCL DRUG DOSING (CG) 64.64 mL/min; POTASSIUM,K 3.7 mEq/L (3.5-5.1)
[2023-03-25] MEDS ORDERED: Insulin Glargine,Human Rec. Analog 100 Units/ML 3 ML Pen SUBCUT ONE (19:14)
[2023-03-25] MEDS ORDERED: Magnesium Sulfate/Water 2 GM/50 ML BAG IV ONE (19:15)
[2023-03-25] MEDS ORDERED: Sodium Chloride 0.45% 1,000 ML IV SCH (20:30)
[2023-03-25 23:21] LABS: ANION GAP 10.5 (5-15); BUN/CREATININE RATIO 9.2 (14-18); CALCIUM 7.9 mg/dL (8.5-10.1); CREATININE 1.3 mg/dL (0.7-1.3); EST CRCL DRUG DOSING (CG) 74.58 mL/min; POTASSIUM,K 3.5 mEq/L (3.5-5.1)
[2023-03-26] MEDS: Insulin Lispro 100 Unit/ML 3 ML KwikPen SUBCUT SCH ×6 (04:04→21:08)
[2023-03-26 06:03] LABS: BASOPHILS ABSOLUTE AUTO 0.01 K/mm3 (0.01-0.08); BASOPHILS PERCENT AUTO 0.2 % (0.1-1.2); EOSINOPHILS ABSOLUTE AUTO 0.05 K/mm3 (0.04-0.54); EOSINOPHILS PERCENT AUTO 1.2 (0.8-7.0); HEMATOCRIT 27.7 % (40.1-51.0); HEMOGLOBIN 8.9 gm/dl (13.7-17.5); IMMATURE GRAN ABSOLUTE AUTO 0.01 K/mm3 (0.00-0.10); IMMATURE GRAN PERCENT AUTO 0.2 % (<=1.0); LYMPHOCYTES ABSOLUTE AUTO 1.36 K/mm3 (1.32-3.57); LYMPHOCYTES PERCENT AUTO 33.3 % (21.8-53.1); MEAN CORPUSCULAR HEMOGLOBIN 25.1 pg (25.7-32.2); MEAN CORPUSCULAR HGB CONC 32.1 g/dl (32.2-35.5); MEAN PLATELET VOLUME 8.7 fl (9.4-12.3); MONOCYTES PERCENT AUTO 9.8 % (5.3-12.2); NEUTROPHILS ABSOLUTE AUTO 2.26 K/mm3 (1.78-5.38); NEUTROPHILS PERCENT AUTO 55.3 % (34.0-67.9); PLATELET COUNT,PLT 182 K/mm3 (163-337); RED BLOOD CELL COUNT 3.55 M/mm3 (4.63-6.08); WHITE BLOOD CELL COUNT,WBC 4.09 K/mm3 (4.23-9.07)
[2023-03-26 06:21] LABS: A/G RATIO 0.7 (1-2); ALBUMIN 2.1 g/dl (3.4-5.0); ANION GAP 11.5 (5-15); BILIRUBIN TOTAL 0.2 mg/dL (0.2-1.0); CALCIUM 7.5 mg/dL (8.5-10.1); EST CRCL DRUG DOSING (CG) 102.77 mL/min; MAGNESIUM 2.1 mg/dL (1.8-2.4); PHOSPHORUS 1.6 mg/dL (2.6-4.7); POTASSIUM,K 3.5 mEq/L (3.5-5.1); PROTEIN TOTAL,TP 5.3 g/dl (6.4-8.2)
[2023-03-26] MEDS: Enoxaparin 40 MG/0.4 ML Syringe SUBCUT SCH (08:05)
[2023-03-26] MEDS: Insulin Glargine,Human Rec. Analog 100 Units/ML 3 ML Pen SUBCUT SCH (09:39)
[2023-03-26] MEDS ORDERED: Ibuprofen 600 MG Tab PO PRN (11:04)
[2023-03-26 16:01] LABS: APPEARANCE,URINE CLEAR (Clear); BILIRUBIN,URINE NEGATIVE (Negative); COLOR,URINE YELLOW (Yellow); GLUCOSE,URINE 2+ (Negative); KETONES,URINE NEGATIVE (Negative); LEUKOCYTE ESTERASE,URINE NEGATIVE (Negative); NITRITE,URINE NEGATIVE (Negative); OCCULT BLOOD,URINE TRACE-INTACT (Negative); PH,URINE 6.5 (5.0-8.0); PROTEIN,URINE 2+ (Negative); UROBILINOGEN,URINE 0.2 (0.2-1.0)
[2023-03-26 16:53] LABS: RBC,URINE 0-5 /hpf (0-5); SQUAMOUS EPITHELIAL CELLS,UR 0-5 /hpf (0-5); WBC,URINE 0-5 /hpf (0-5)
[2023-03-26 16:54] LABS: BACTERIA,URINE FEW /hpf (FEW); MUCUS,URINE RARE /hpf (FEW)
[2023-03-26] MEDS ORDERED: Phosphorus #1 250 MG Tab PO ONE (16:54)
[2023-03-26] MEDS: Lisinopril 20 MG Tab PO SCH (20:19)
[2023-03-27] MEDS ORDERED: Insulin Regular, Human 100 Units/ML 3 ML Vial SCH
[2023-03-27] MEDS: Insulin Lispro 100 Unit/ML 3 ML KwikPen SUBCUT SCH ×3 (06:11→11:23)
[2023-03-27 07:34] LABS: BASOPHILS ABSOLUTE AUTO 0.02 K/mm3 (0.01-0.08); BASOPHILS PERCENT AUTO 0.5 % (0.1-1.2); EOSINOPHILS ABSOLUTE AUTO 0.03 K/mm3 (0.04-0.54); EOSINOPHILS PERCENT AUTO 0.8 (0.8-7.0); IMMATURE GRAN ABSOLUTE AUTO 0.01 K/mm3 (0.00-0.10); IMMATURE GRAN PERCENT AUTO 0.3 % (<=1.0); LYMPHOCYTES ABSOLUTE AUTO 1.41 K/mm3 (1.32-3.57); LYMPHOCYTES PERCENT AUTO 38.5 % (21.8-53.1); MEAN CORPUSCULAR HEMOGLOBIN 24.9 pg (25.7-32.2); MEAN CORPUSCULAR HGB CONC 32.5 g/dl (32.2-35.5); MEAN CORPUSCULAR VOLUME 76.7 fl (79.0-92.2); MEAN PLATELET VOLUME 8.7 fl (9.4-12.3); MONOCYTES ABSOLUTE AUTO 0.24 K/mm3 (0.30-0.82); MONOCYTES PERCENT AUTO 6.6 % (5.3-12.2); NEUTROPHILS ABSOLUTE AUTO 1.95 K/mm3 (1.78-5.38); NEUTROPHILS PERCENT AUTO 53.3 % (34.0-67.9); PLATELET COUNT,PLT 217 K/mm3 (163-337); RED BLOOD CELL COUNT 4.17 M/mm3 (4.63-6.08); WHITE BLOOD CELL COUNT,WBC 3.66 K/mm3 (4.23-9.07)
[2023-03-27 07:48] LABS: HEMOGLOBIN 10.4 gm/dl (13.7-17.5)
[2023-03-27 07:57] LABS: A/G RATIO 0.7 (1-2); ALBUMIN 2.6 g/dl (3.4-5.0); BILIRUBIN TOTAL 0.3 mg/dL (0.2-1.0); CALCIUM 8.4 mg/dL (8.5-10.1); EST CRCL DRUG DOSING (CG) 101.77 mL/min; PROTEIN TOTAL,TP 6.4 g/dl (6.4-8.2)
[2023-03-27] MEDS: Enoxaparin 40 MG/0.4 ML Syringe SUBCUT SCH (09:08)
[2023-03-27] MEDS: Lisinopril 20 MG Tab PO SCH (09:08)
[2023-03-27 13:41] VITALS: BP 138/106; PULSE 92
== END 2023-03-27 13:55 | disposition home or self-care (01) | DRG 638 ==
LOC: JD.ED 14:26 → JD.ICU 18:41
PROVIDERS: ADMIT Hospitalist; ATTEND Hospitalist
DX: E10.10 Type 1 diabetes mellitus with ketoacidosis without coma (principal); E87.1 Hypo-osmolality and hyponatremia; N17.9 Acute kidney failure, unspecified; I12.9 Hypertensive chronic kidney disease with stage 1 through stage 4 chronic kidney disease, or unspecified chronic kidney disease; E10.22 Type 1 diabetes mellitus with diabetic chronic kidney disease; N18.9 Chronic kidney disease, unspecified; J45.909 Unspecified asthma, uncomplicated; R21 Rash and other nonspecific skin eruption; Z20.822 Contact with and (suspected) exposure to COVID-19; D75.839 Thrombocytosis, unspecified; D72.828 Other elevated white blood cell count; E86.0 Dehydration; E87.6 Hypokalemia; R82.4 Acetonuria; E83.39 Other disorders of phosphorus metabolism; Z96.41 Presence of insulin pump (external) (internal); Z86.16 Personal history of COVID-19; Z91.148 Patient's other noncompliance with medication regimen for other reason; Z79.4 Long term (current) use of insulin; Z79.899 Other long term (current) drug therapy
CPT/HCPCS: 0240U; 36415; 36600; 71045; 71045-26; 80048; 80053; 80306; 80307; 81001; 82009; 82803; 82947; 83605; 83735; 84100; 85025; 86140; 87040; 93005; 93010; 99284; A9270-GY; J1170; J1650; J1815; J1815-GY; J2405; J3475; J3480; J3490; J7030; J7120

== ENCOUNTER 2023-06-13 18:01 | Emergency (ER) | payer SELFPAY ==
[2023-06-13 20:27] VITALS: BP 157/102; PULSE 103
== END 2023-06-13 20:51 | disposition left against medical advice (07) ==
LOC: JD.ED 18:01
DX: Z53.21 Procedure and treatment not carried out due to patient leaving prior to being seen by health care provider (principal)

== ENCOUNTER 2023-06-14 22:03 | Inpatient (IN) | payer SELFPAY ==
[2023-06-14] MEDS ORDERED: Insulin Regular in 0.9 % NACL 100 ML IV SCH (22:30)
[2023-06-14] MEDS ORDERED: Lactated Ringers 1,000 ML IV SCH (22:30)
[2023-06-14 22:33] LABS: BASE EXCESS ARTERIAL -28.7 (-2-2.0); O2 SATURATION ARTERIAL 97.5 % (96.0-97.0)
[2023-06-14 22:35] LABS: BICARBONATE,ARTERIAL 2.5 meq/L (22.0-26.0); PCO2 ARTERIAL 11.4 mmHg (35.0-45.0)
[2023-06-14] MEDS: Insulin Regular in 0.9 % NACL 100 ML IV SCH (22:51)
[2023-06-14 22:58] LABS: BASOPHILS ABSOLUTE AUTO 0.1 K/mm3 (0.0-0.2); BASOPHILS PERCENT AUTO 0.7 % (0.0-1.0); EOSINOPHILS ABSOLUTE AUTO 0.1 K/mm3 (0.0-0.4); EOSINOPHILS PERCENT AUTO 0.2 % (0.0-6.0); HEMATOCRIT 37.4 % (42.0-52.0); IMMATURE GRAN ABSOLUTE AUTO 0.24 K/mm3 (0.00-0.05); IMMATURE GRAN PERCENT AUTO 1.2 % (0.0-0.4); LYMPHOCYTES ABSOLUTE AUTO 2.1 K/mm3 (1.0-4.8); LYMPHOCYTES PERCENT AUTO 10.5 % (24.0-44.0); MEAN CORPUSCULAR HEMOGLOBIN 25.2 pg (28.0-32.0); MEAN CORPUSCULAR HGB CONC 29.4 g/dl (32.0-36.0); MEAN CORPUSCULAR VOLUME 85.6 fl (83.0-99.0); MEAN PLATELET VOLUME 10.3 fl (9.4-12.4); MONOCYTES ABSOLUTE AUTO 1.5 K/mm3 (0.0-0.8); MONOCYTES PERCENT AUTO 7.4 % (0.0-8.0); NEUTROPHILS ABSOLUTE AUTO 16.1 K/mm3 (1.8-7.7); PLATELET COUNT,PLT 435 K/mm3 (150-400); RED BLOOD CELL COUNT 4.37 M/mm3 (4.52-5.90); WHITE BLOOD CELL COUNT,WBC 20.09 K/mm3 (3.9-11.3)
[2023-06-14 23:04] LABS: A/G RATIO 0.6 (1-2); ALANINE AMINOTRANSFERASE,ALT 31 U/L (16-63); ALBUMIN 3.1 g/dl (3.4-5.0); ALKALINE PHOSPHATASE 140 U/L (46-116); ASPARTATE AMNIOTRANSFERASE,AST 23 U/L (15-37); BILIRUBIN TOTAL 0.6 mg/dL (0.2-1.0); BLOOD UREA NITROGEN,BUN 51 mg/dL (7-18); BUN/CREATININE RATIO 18.2 (14-18); CALCIUM 9.2 mg/dL (8.5-10.1); CHLORIDE,CL 76 mEq/L (98-107); CREATININE 2.8 mg/dL (0.7-1.3); ESTIMATED GFR 31 mL/min (>60); MAGNESIUM 2.9 mg/dL (1.8-2.4); PROTEIN TOTAL,TP 8.2 g/dl (6.4-8.2)
[2023-06-14 23:08] LABS: ANION GAP 42.4 (5-15); C-REACTIVE PROTEIN 2.7 mg/dL (<1.0); CARBON DIOXIDE,CO2 4 mEq/L (21-32); POTASSIUM,K 7.4 mEq/L (3.5-5.1); SODIUM,NA 115 mEq/L (136-145)
[2023-06-14 23:10] LABS: PHOSPHORUS 11.4 mg/dL (2.6-4.7)
[2023-06-14] MEDS ORDERED: Calcium Gluconate 10% 1 GM/10 ML SDV IVPUSH ONE (23:11)
[2023-06-14] MEDS ORDERED: Sodium Bicarbonate 8.4% 50 MEQ/50 ML Syringe IVPUSH ONE (23:11)
[2023-06-14] MEDS ORDERED: Calcium Gluconate 10% 1 GM/10 ML SDV ONE (23:12)
[2023-06-14] MEDS ORDERED: Calcium Chloride 10% 1 GM/10 ML Syringe IVPUSH ONE (23:12)
[2023-06-14] MEDS ORDERED: Sodium Bicarbonate 8.4% 50 MEQ/50 ML Syringe ONE (23:13)
[2023-06-14 23:14] LABS: PROTHROMBIN TIME 9.8 SECONDS (9.7-12.0)
[2023-06-14 23:16] LABS: PTT,PARTIAL THROMBOPLSTIN TIME 31.3 SECONDS (21.7-31.4)
[2023-06-14 23:19] LABS: INR < 0.93
[2023-06-14 23:31] LABS: GLUCOSE RANDOM 1302 mg/dL (70-99)
[2023-06-15] MEDS: Lactated Ringers 1,000 ML IV SCH ×6 (00:45→06:38)
[2023-06-15 01:25] LABS: POTASSIUM,K 5.6 mEq/L (3.5-5.1)
[2023-06-15] MEDS ORDERED: Metoclopramide 10 MG/2 ML SDV IVPUSH ONE (04:44)
[2023-06-15 05:49] LABS: APPEARANCE,URINE CLEAR (Clear); BILIRUBIN,URINE NEGATIVE (Negative); COLOR,URINE LIGHT YELLOW (Yellow); GLUCOSE,URINE 2+ (Negative); KETONES,URINE 4+ (Negative); LEUKOCYTE ESTERASE,URINE NEGATIVE (Negative); NITRITE,URINE NEGATIVE (Negative); OCCULT BLOOD,URINE TRACE-INTACT (Negative); PH,URINE 5.5 (5.0-8.0); PROTEIN,URINE 1+ (Negative); UROBILINOGEN,URINE 0.2 (0.2-1.0)
[2023-06-15 06:31] LABS: A/G RATIO 0.6 (1-2); ALANINE AMINOTRANSFERASE,ALT 19 U/L (16-63); ALBUMIN 2.3 g/dl (3.4-5.0); ALKALINE PHOSPHATASE 100 U/L (46-116); ANION GAP 23.1 (5-15); ASPARTATE AMNIOTRANSFERASE,AST 17 U/L (15-37); BILIRUBIN TOTAL 0.3 mg/dL (0.2-1.0); BLOOD UREA NITROGEN,BUN 39 mg/dL (7-18); BUN/CREATININE RATIO 19.5 (14-18); CALCIUM 8.4 mg/dL (8.5-10.1); CARBON DIOXIDE,CO2 18 mEq/L (21-32); CHLORIDE,CL 98 mEq/L (98-107); ESTIMATED GFR 46 mL/min (>60); GLUCOSE RANDOM 382 mg/dL (70-99); POTASSIUM,K 4.1 mEq/L (3.5-5.1)
[2023-06-15 06:37] LABS: SODIUM,NA 135 mEq/L (136-145)
[2023-06-15] MEDS ORDERED: Docusate Sodium 100 MG Cap PO PRN (07:02)
[2023-06-15] MEDS ORDERED: Ondansetron 4 MG Tab.DIS PO PRN (07:02)
[2023-06-15] MEDS ORDERED: Acetaminophen 325 MG Tab PO PRN (07:02)
[2023-06-15] MEDS ORDERED: Lactated Ringers 1,000 ML IV SCH (07:15)
[2023-06-15 07:30] LABS: BLOOD UREA NITROGEN,BUN 34 mg/dL (7-18); BUN/CREATININE RATIO 17.9 (14-18); CALCIUM 8.3 mg/dL (8.5-10.1); CARBON DIOXIDE,CO2 21 mEq/L (21-32); CHLORIDE,CL 100 mEq/L (98-107); CREATININE 1.9 mg/dL (0.7-1.3); ESTIMATED GFR 49 mL/min (>60); GLUCOSE RANDOM 290 mg/dL (70-99); SODIUM,NA 137 mEq/L (136-145)
[2023-06-15] MEDS: Ondansetron 4 MG/2 ML SDV IV PRN ×3 (09:00→13:48)
[2023-06-15] MEDS: Enoxaparin 40 MG/0.4 ML Syringe SUBCUT SCH (09:26)
[2023-06-15] MEDS: Insulin Regular in 0.9 % NACL 100 ML IV SCH ×2 (09:28→10:40)
[2023-06-15 11:24] LABS: ANION GAP 30.5 (5-15); BUN/CREATININE RATIO 18.9 (14-18); CALCIUM 8.2 mg/dL (8.5-10.1); CREATININE 1.8 mg/dL (0.7-1.3); EST CRCL DRUG DOSING (CG) 54.1 mL/min; POTASSIUM,K 4.5 mEq/L (3.5-5.1)
[2023-06-15 12:59] LABS: PH,VENOUS 7.39 (7.30-7.40)
[2023-06-15 13:00] LABS: BASE EXCESS VENOUS -9.6 (-4.0-2.0); BICARBONATE,VENOUS 13.8 meq/L (22-26); O2 SATURATION VENOUS 90.4; PCO2 VENOUS 23.5 mmHg (41-51)
[2023-06-15 16:15] LABS: ANION GAP 17.9 (5-15); BUN/CREATININE RATIO 17.6 (14-18); CALCIUM 8.4 mg/dL (8.5-10.1); CREATININE 1.7 mg/dL (0.7-1.3); EST CRCL DRUG DOSING (CG) 57.28 mL/min; POTASSIUM,K 3.9 mEq/L (3.5-5.1)
[2023-06-15] MEDS: D5 1/2 NS w/ 20 mEq/L KCl 1,000 ML IV SCH (16:44)
[2023-06-15 20:04] LABS: ANION GAP 19.8 (5-15); BUN/CREATININE RATIO 16.9 (14-18); CALCIUM 8.4 mg/dL (8.5-10.1); CREATININE 1.6 mg/dL (0.7-1.3); EST CRCL DRUG DOSING (CG) 60.86 mL/min; POTASSIUM,K 3.8 mEq/L (3.5-5.1)
[2023-06-15 23:21] LABS: ANION GAP 17.9 (5-15); CALCIUM 8.4 mg/dL (8.5-10.1); CREATININE 1.6 mg/dL (0.7-1.3); EST CRCL DRUG DOSING (CG) 60.86 mL/min; POTASSIUM,K 3.9 mEq/L (3.5-5.1)
[2023-06-16] MEDS ORDERED: Insulin Regular, Human 100 Units/ML 3 ML Vial SUBCUT SCH
[2023-06-16] MEDS: D5 1/2 NS w/ 20 mEq/L KCl 1,000 ML IV SCH ×2 (00:46→07:41)
[2023-06-16 04:20] LABS: A/G RATIO 0.6 (1-2); ALBUMIN 2.1 g/dl (3.4-5.0); ANION GAP 15.8 (5-15); BILIRUBIN TOTAL 0.3 mg/dL (0.2-1.0); BUN/CREATININE RATIO 11.3 (14-18); CALCIUM 8.1 mg/dL (8.5-10.1); CREATININE 1.6 mg/dL (0.7-1.3); EST CRCL DRUG DOSING (CG) 60.86 mL/min; POTASSIUM,K 3.8 mEq/L (3.5-5.1); PROTEIN TOTAL,TP 5.8 g/dl (6.4-8.2)
[2023-06-16] MEDS ORDERED: Magnesium Sulfate (4.06 MEQ/ML) 5 GM/10 ML SDV IV ONE (07:28)
[2023-06-16] MEDS ORDERED: Magnesium Sulfate/Water 4 GM in Premix Bag 1 BAG IV ONE (07:30)
[2023-06-16] MEDS: Insulin Regular in 0.9 % NACL 100 ML IV SCH (07:40)
[2023-06-16] MEDS: Enoxaparin 40 MG/0.4 ML Syringe SUBCUT SCH (08:00)
[2023-06-16 08:37] LABS: ANION GAP 10.6 (5-15); BUN/CREATININE RATIO 10.8 (14-18); CALCIUM 8.2 mg/dL (8.5-10.1); CREATININE 1.3 mg/dL (0.7-1.3); EST CRCL DRUG DOSING (CG) 74.9 mL/min; POTASSIUM,K 3.6 mEq/L (3.5-5.1)
[2023-06-16] MEDS ORDERED: Potassium Chloride 20 MEQ Tab.ER PO ONE (10:30)
[2023-06-16] MEDS ORDERED: Insulin Glargine,Human Rec. Analog 100 Units/ML 3 ML Pen SUBCUT ONE (10:30)
[2023-06-16] MEDS: Insulin Lispro 100 Unit/ML 3 ML KwikPen SUBCUT SCH ×2 (11:11→16:41)
[2023-06-16] MEDS ORDERED: Insulin Lispro 100 Unit/ML 3 ML KwikPen SUBCUT ONE (16:30)
[2023-06-16 16:33] VITALS: BP 144/96; PULSE 91
== END 2023-06-16 16:41 | disposition home or self-care (01) | DRG 638 ==
LOC: JD.ED 22:03 → JD.ICU 06-15 08:38
PROVIDERS: ADMIT Hospitalist; ATTEND Hospitalist
PROC: 3E033VG Introduction of Insulin into Peripheral Vein, Percutaneous Approach (ICD-10-PCS; principal; 2023-06-15)
PROC: 4A033R1 Measurement of Arterial Saturation, Peripheral, Percutaneous Approach (ICD-10-PCS; 2023-06-15)
PROC: 0T9B70Z Drainage of Bladder with Drainage Device, Via Natural or Artificial Opening (ICD-10-PCS; 2023-06-15)
DX: E10.10 Type 1 diabetes mellitus with ketoacidosis without coma (principal); E87.1 Hypo-osmolality and hyponatremia; J45.909 Unspecified asthma, uncomplicated; I12.9 Hypertensive chronic kidney disease with stage 1 through stage 4 chronic kidney disease, or unspecified chronic kidney disease; N18.9 Chronic kidney disease, unspecified; E10.21 Type 1 diabetes mellitus with diabetic nephropathy; E10.22 Type 1 diabetes mellitus with diabetic chronic kidney disease; F32.A Depression, unspecified; E87.5 Hyperkalemia; E86.9 Volume depletion, unspecified; Z96.41 Presence of insulin pump (external) (internal); R09.02 Hypoxemia; S22.39XD Fracture of one rib, unspecified side, subsequent encounter for fracture with routine healing; Z79.4 Long term (current) use of insulin; Z79.899 Other long term (current) drug therapy; Z86.16 Personal history of COVID-19; X58.XXXD Exposure to other specified factors, subsequent encounter
CPT/HCPCS: 36415; 36600; 71045; 71045-26; 80048; 80053; 81003; 82009; 82803; 82947; 83605; 83735; 83930; 84100; 84132; 85025; 85610; 85730; 86140; 87040; 93005; A9270-GY; J0612; J1650; J1815; J1815-GY; J2405; J2765; J3475; J3480; J3490; J7120

== ENCOUNTER 2023-08-05 00:29 | Inpatient (IN) | payer SELFPAY ==
[2023-08-05] MEDS ORDERED: Insulin Regular, Human 100 Units/ML 3 ML Vial IV ONE (00:46)
[2023-08-05 00:52] LABS: BASOPHILS ABSOLUTE AUTO 0.3 K/mm3 (0.0-0.2); BASOPHILS PERCENT AUTO 0.8 % (0.0-1.0); EOSINOPHILS ABSOLUTE AUTO 0.1 K/mm3 (0.0-0.4); EOSINOPHILS PERCENT AUTO 0.2 % (0.0-6.0); HEMATOCRIT 42.3 % (42.0-52.0); HEMOGLOBIN 13.4 gm/dl (14.0-18.0); IMMATURE GRAN ABSOLUTE AUTO 0.66 K/mm3 (0.00-0.05); IMMATURE GRAN PERCENT AUTO 2.2 % (0.0-0.4); LYMPHOCYTES ABSOLUTE AUTO 5.2 K/mm3 (1.0-4.8); LYMPHOCYTES PERCENT AUTO 16.9 % (24.0-44.0); MEAN CORPUSCULAR HGB CONC 31.7 g/dl (32.0-36.0); MEAN CORPUSCULAR VOLUME 79.1 fl (83.0-99.0); MEAN PLATELET VOLUME 10.6 fl (9.4-12.4); MONOCYTES ABSOLUTE AUTO 2.3 K/mm3 (0.0-0.8); MONOCYTES PERCENT AUTO 7.4 % (0.0-8.0); NEUTROPHILS ABSOLUTE AUTO 22.1 K/mm3 (1.8-7.7); NEUTROPHILS PERCENT AUTO 72.5 % (41.0-71.0); PLATELET COUNT,PLT 501 K/mm3 (150-400); RED BLOOD CELL COUNT 5.35 M/mm3 (4.52-5.90); WHITE BLOOD CELL COUNT,WBC 30.54 K/mm3 (3.9-11.3)
[2023-08-05] MEDS ORDERED: Sodium Chloride 0.9% 1,000 ML ONE (00:55)
[2023-08-05 01:00] LABS: BASE EXCESS ARTERIAL -29.8 (-2-2.0); BICARBONATE,ARTERIAL 3.4 meq/L (22.0-26.0); O2 SATURATION ARTERIAL 80.5 % (96.0-97.0); PCO2 ARTERIAL 20.9 mmHg (35.0-45.0)
[2023-08-05] MEDS ORDERED: Insulin Regular in 0.9 % NACL 100 ML IV SCH ×3 (01:00→23:00)
[2023-08-05] MEDS ORDERED: Sodium Chloride 0.9% 1,000 ML IV SCH ×2 (01:00→07:00)
[2023-08-05] MEDS ORDERED: Sodium Bicarbonate 150 MEQ in Dextrose 5% in Water 1,000 ML IV ONE ×2 (01:14)
[2023-08-05] MEDS ORDERED: Calcium Chloride 10% 1 GM/10 ML Syringe IVPUSH ONE (01:16)
[2023-08-05 01:17] LABS: A/G RATIO 0.7 (1-2); ALBUMIN 3.2 g/dl (3.4-5.0); BILIRUBIN TOTAL 0.5 mg/dL (0.2-1.0); BUN/CREATININE RATIO 15.9 (14-18); CREATININE 3.2 mg/dL (0.7-1.3); EST CRCL DRUG DOSING (CG) 26.93 mL/min
[2023-08-05] MEDS ORDERED: Sodium Chloride 0.9% 1,000 ML IV ONE ×3 (01:20→03:43)
[2023-08-05] MEDS ORDERED: Sodium Bicarbonate 150 MEQ in Sodium Chloride 0.9% 1,000 ML IV ONE (01:30)
[2023-08-05] MEDS: Insulin Regular in 0.9 % NACL 100 ML IV SCH ×2 (01:30→14:01)
[2023-08-05 01:36] LABS: MAGNESIUM 2.7 mg/dL (1.8-2.4)
[2023-08-05 01:38] LABS: ANION GAP 41.4 (5-15)
[2023-08-05 01:40] LABS: POTASSIUM,K 7.4 mEq/L (3.5-5.1)
[2023-08-05 01:53] LABS: LACTIC ACID 4.4 mmol/L (0.4-2.0)
[2023-08-05 02:10] LABS: BASE EXCESS ARTERIAL -21.8 (-2-2.0); BICARBONATE,ARTERIAL 10.9 meq/L (22.0-26.0); O2 SATURATION ARTERIAL 91.7 % (96.0-97.0); PCO2 ARTERIAL 56.1 mmHg (35.0-45.0)
[2023-08-05 02:12] LABS: SLIDE REVIEW ABNORMAL SMEAR
[2023-08-05 03:50] LABS: ANION GAP 33.7 (5-15); BUN/CREATININE RATIO 16.6 (14-18); CREATININE 2.9 mg/dL (0.7-1.3); EST CRCL DRUG DOSING (CG) 32.32 mL/min; POTASSIUM,K 3.7 mEq/L (3.5-5.1)
[2023-08-05] MEDS ORDERED: NS + KCl 20mEq/L 1,000 ML IV SCH (04:15)
[2023-08-05 06:17] LABS: BUN/CREATININE RATIO 16.4 (14-18); CALCIUM 8.3 mg/dL (8.5-10.1); CREATININE 2.8 mg/dL (0.7-1.3); EST CRCL DRUG DOSING (CG) 33.48 mL/min
[2023-08-05 06:18] LABS: BASE EXCESS ARTERIAL -21.2 (-2-2.0); BICARBONATE,ARTERIAL 7.1 meq/L (22.0-26.0); O2 SATURATION ARTERIAL 79.8 % (96.0-97.0); PCO2 ARTERIAL 24.1 mmHg (35.0-45.0)
[2023-08-05] MEDS ORDERED: oxyCODONE 5 MG Tab PO PRN (06:51)
[2023-08-05] MEDS ORDERED: Acetaminophen 325 MG Tab PO PRN (06:51)
[2023-08-05 07:35] LABS: HEMOGLOBIN A1C >14.0 %
[2023-08-05] MEDS ORDERED: Lisinopril 20 MG Tab PO SCH (09:00)
[2023-08-05] MEDS ORDERED: Ondansetron 4 MG/2 ML SDV IVPUSH PRN (09:55)
[2023-08-05 11:17] LABS: CALCIUM 7.5 mg/dL (8.5-10.1); EST CRCL DRUG DOSING (CG) 48.12 mL/min; POTASSIUM,K 3.4 mEq/L (3.5-5.1)
[2023-08-05 11:19] LABS: ANION GAP 23.4 (5-15)
[2023-08-05] MEDS: Potassium Chloride 10 MEQ in Premix Bag 1 BAG IV SCH ×8 (12:20→23:02)
[2023-08-05] MEDS: Dextrose 5 %-0.2 % NaCl 1,000 ML IV SCH ×2 (12:25→17:56)
[2023-08-05] MEDS ORDERED: Sodium Bicarbonate 150 MEQ in Sodium Chloride 0.9% 1,000 ML IV SCH ×2 (12:30→23:30)
[2023-08-05 14:05] LABS: ANION GAP 15.8 (5-15); BUN/CREATININE RATIO 19.4 (14-18); CALCIUM 7.2 mg/dL (8.5-10.1); CREATININE 1.7 mg/dL (0.7-1.3); EST CRCL DRUG DOSING (CG) 56.61 mL/min; POTASSIUM,K 3.8 mEq/L (3.5-5.1)
[2023-08-05 14:35] LABS: APPEARANCE,URINE CLEAR (Clear); BILIRUBIN,URINE 1+ (Negative); COLOR,URINE YELLOW (Yellow); GLUCOSE,URINE 2+ (Negative); KETONES,URINE 4+ (Negative); LEUKOCYTE ESTERASE,URINE NEGATIVE (Negative); NITRITE,URINE NEGATIVE (Negative); OCCULT BLOOD,URINE TRACE-INTACT (Negative); PH,URINE 5.5 (5.0-8.0); PROTEIN,URINE 2+ (Negative); UROBILINOGEN,URINE 0.2 (0.2-1.0)
[2023-08-05 14:42] LABS: BARBITURATE SCREEN,URINE NEGATIVE (CUTOFF=200); BENZODIAZEPINES SCREEN,URINE NEGATIVE (CUTOFF=150); BUPRENORPHINE SCREEN,URINE NEGATIVE (CUTOFF=10); METHADONE SCREEN, URINE NEGATIVE (CUT0FF=200); METHAMPHETAMINES SCREEN, URINE PRESUMPTIVE POSITIVE (CUTOFF=500); OXYCODONE SCREEN,URINE NEGATIVE (CUT0FF=100); THC SCREEN,URINE 20 NG/ML NEGATIVE (CUTOFF=50)
[2023-08-05 14:45] LABS: AMPHETAMINES SCREEN, URINE PRESUMPTIVE POSITIVE (CUTOFF=500)
[2023-08-05 14:53] LABS: BACTERIA,URINE FEW /hpf (FEW); EPITHELIAL CELLS,URINE 0-5 /hpf (0-5); MUCUS,URINE FEW /hpf (FEW); RBC,URINE 0-5 /hpf (0-5); WBC,URINE 0-5 /hpf (0-5)
[2023-08-05 18:15] LABS: ANION GAP 6.9 (5-15); BUN/CREATININE RATIO 20.8 (14-18); CALCIUM 6.2 mg/dL (8.5-10.1); CREATININE 1.3 mg/dL (0.7-1.3); EST CRCL DRUG DOSING (CG) 74.03 mL/min; POTASSIUM,K 2.9 mEq/L (3.5-5.1)
[2023-08-05] MEDS ORDERED: Calcium Gluconate 10% 1 GM/10 ML SDV IV ONE (19:18)
[2023-08-05] MEDS: Dextrose 5% in Water 1,000 ML IV SCH (20:15)
[2023-08-05 22:51] LABS: ANION GAP 21.2 (5-15); CALCIUM 7.9 mg/dL (8.5-10.1); CREATININE 1.5 mg/dL (0.7-1.3); EST CRCL DRUG DOSING (CG) 64.16 mL/min; POTASSIUM,K 5.2 mEq/L (3.5-5.1)
[2023-08-06] MEDS ORDERED: Benzocaine/Cetylpyridinium/Menthol Lozenge MUCMEM PRN (01:21)
[2023-08-06] MEDS: guaiFENesin 100 MG/5 ML Soln 10 ML UD Cup PO PRN ×3 (02:01→21:56)
[2023-08-06 02:38] LABS: BASOPHILS PERCENT AUTO 0.3 % (0.0-1.0); EOSINOPHILS ABSOLUTE AUTO 0.1 K/mm3 (0.0-0.4); EOSINOPHILS PERCENT AUTO 0.5 % (0.0-6.0); HEMATOCRIT 27.4 % (42.0-52.0); IMMATURE GRAN ABSOLUTE AUTO 0.05 K/mm3 (0.00-0.05); IMMATURE GRAN PERCENT AUTO 0.4 % (0.0-0.4); LYMPHOCYTES ABSOLUTE AUTO 2.6 K/mm3 (1.0-4.8); LYMPHOCYTES PERCENT AUTO 21.8 % (24.0-44.0); MEAN CORPUSCULAR HEMOGLOBIN 25.3 pg (28.0-32.0); MEAN CORPUSCULAR HGB CONC 35.4 g/dl (32.0-36.0); MEAN CORPUSCULAR VOLUME 71.4 fl (83.0-99.0); MONOCYTES PERCENT AUTO 8.5 % (0.0-8.0); NEUTROPHILS ABSOLUTE AUTO 8.1 K/mm3 (1.8-7.7); NEUTROPHILS PERCENT AUTO 68.5 % (41.0-71.0); PLATELET COUNT,PLT 193 K/mm3 (150-400); RED BLOOD CELL COUNT 3.84 M/mm3 (4.52-5.90); WHITE BLOOD CELL COUNT,WBC 11.83 K/mm3 (3.9-11.3)
[2023-08-06 02:49] LABS: HEMOGLOBIN 9.7 gm/dl (14.0-18.0)
[2023-08-06 02:51] LABS: ANION GAP 12.6 (5-15); CREATININE 1.6 mg/dL (0.7-1.3); EST CRCL DRUG DOSING (CG) 60.15 mL/min
[2023-08-06 03:06] LABS: POTASSIUM,K 3.6 mEq/L (3.5-5.1)
[2023-08-06] MEDS: Dextrose 5% in Water 1,000 ML IV SCH ×3 (06:35→19:03)
[2023-08-06 06:56] LABS: ANION GAP 21.4 (5-15); BUN/CREATININE RATIO 14.3 (14-18); CALCIUM 8.4 mg/dL (8.5-10.1); CREATININE 1.4 mg/dL (0.7-1.3); EST CRCL DRUG DOSING (CG) 72.61 mL/min; POTASSIUM,K 4.4 mEq/L (3.5-5.1)
[2023-08-06] MEDS: Heparin Sodium 5,000 Units/ML Vial SUBCUT SCH ×2 (09:49→17:07)
[2023-08-06 10:56] LABS: ANION GAP 13.5 (5-15); BUN/CREATININE RATIO 11.4 (14-18); CALCIUM 8.1 mg/dL (8.5-10.1); CREATININE 1.4 mg/dL (0.7-1.3); EST CRCL DRUG DOSING (CG) 72.61 mL/min; POTASSIUM,K 3.5 mEq/L (3.5-5.1)
[2023-08-06 14:55] LABS: ANION GAP 22.8 (5-15); BUN/CREATININE RATIO 10.7 (14-18); CALCIUM 8.6 mg/dL (8.5-10.1); CREATININE 1.4 mg/dL (0.7-1.3); EST CRCL DRUG DOSING (CG) 72.61 mL/min; POTASSIUM,K 4.8 mEq/L (3.5-5.1)
[2023-08-06] MEDS: Insulin Lispro 100 Unit/ML 3 ML KwikPen SUBCUT SCH (17:08)
[2023-08-06] MEDS: cefTRIAXone 2 GM in Sodium Chloride 0.9% 100 ML IV SCH (17:09)
[2023-08-06 19:05] LABS: ANION GAP 23.4 (5-15); BUN/CREATININE RATIO 9.2 (14-18); CREATININE 1.3 mg/dL (0.7-1.3); EST CRCL DRUG DOSING (CG) 78.19 mL/min; POTASSIUM,K 3.4 mEq/L (3.5-5.1)
[2023-08-06 19:14] LABS: CALCIUM 6.6 mg/dL (8.5-10.1)
[2023-08-06] MEDS ORDERED: Insulin Lispro 100 Unit/ML 3 ML KwikPen SUBCUT ONE (20:09)
[2023-08-06] MEDS ORDERED: Calcium Gluconate 10% 1 GM/10 ML SDV IVPUSH ONE (20:09)
[2023-08-06] MEDS: Sodium Chloride 0.9% 1,000 ML IV SCH (20:26)
[2023-08-07] MEDS: Heparin Sodium 5,000 Units/ML Vial SUBCUT SCH ×3 (02:25→17:03)
[2023-08-07 05:45] LABS: ANION GAP 23.6 (5-15); BUN/CREATININE RATIO 8.6 (14-18); CALCIUM 8.2 mg/dL (8.5-10.1); CREATININE 1.4 mg/dL (0.7-1.3); EST CRCL DRUG DOSING (CG) 71.82 mL/min; POTASSIUM,K 4.6 mEq/L (3.5-5.1)
[2023-08-07 05:49] LABS: BASOPHILS PERCENT AUTO 0.4 % (0.0-1.0); HEMATOCRIT 29.5 % (42.0-52.0); HEMOGLOBIN 9.8 gm/dl (14.0-18.0); IMMATURE GRAN ABSOLUTE AUTO 0.03 K/mm3 (0.00-0.05); IMMATURE GRAN PERCENT AUTO 0.4 % (0.0-0.4); LYMPHOCYTES ABSOLUTE AUTO 1.3 K/mm3 (1.0-4.8); LYMPHOCYTES PERCENT AUTO 15.3 % (24.0-44.0); MEAN CORPUSCULAR HEMOGLOBIN 24.7 pg (28.0-32.0); MEAN CORPUSCULAR HGB CONC 33.2 g/dl (32.0-36.0); MEAN CORPUSCULAR VOLUME 74.5 fl (83.0-99.0); MEAN PLATELET VOLUME 9.9 fl (9.4-12.4); MONOCYTES ABSOLUTE AUTO 0.6 K/mm3 (0.0-0.8); MONOCYTES PERCENT AUTO 7.1 % (0.0-8.0); NEUTROPHILS ABSOLUTE AUTO 6.6 K/mm3 (1.8-7.7); NEUTROPHILS PERCENT AUTO 76.8 % (41.0-71.0); PLATELET COUNT,PLT 152 K/mm3 (150-400); RED BLOOD CELL COUNT 3.96 M/mm3 (4.52-5.90); WHITE BLOOD CELL COUNT,WBC 8.57 K/mm3 (3.9-11.3)
[2023-08-07] MEDS ORDERED: Insulin Lispro 100 Unit/ML 3 ML KwikPen SUBCUT ONE (06:19)
[2023-08-07] MEDS: guaiFENesin 100 MG/5 ML Soln 10 ML UD Cup PO PRN (06:26)
[2023-08-07] MEDS: Insulin Lispro 100 Unit/ML 3 ML KwikPen SUBCUT SCH ×3 (06:41→16:47)
[2023-08-07] MEDS: Insulin Glargine,Human Rec. Analog 100 Units/ML 3 ML Pen SUBCUT SCH (08:57)
[2023-08-07] MEDS: Sodium Chloride 0.9% 1,000 ML IV SCH (09:00)
[2023-08-07] MEDS: cefTRIAXone 2 GM in Sodium Chloride 0.9% 100 ML IV SCH (16:47)
[2023-08-08] MEDS: Heparin Sodium 5,000 Units/ML Vial SUBCUT SCH ×2 (01:05→09:05)
[2023-08-08] MEDS: Sodium Chloride 0.9% 1,000 ML IV SCH (01:06)
[2023-08-08] MEDS: Insulin Lispro 100 Unit/ML 3 ML KwikPen SUBCUT SCH ×2 (07:24→10:56)
[2023-08-08 07:40] LABS: BASOPHILS PERCENT AUTO 0.4 % (0.0-1.0); EOSINOPHILS PERCENT AUTO 0.5 % (0.0-6.0); HEMATOCRIT 27.8 % (42.0-52.0); HEMOGLOBIN 9.5 gm/dl (14.0-18.0); IMMATURE GRAN ABSOLUTE AUTO 0.01 K/mm3 (0.00-0.05); IMMATURE GRAN PERCENT AUTO 0.2 % (0.0-0.4); LYMPHOCYTES ABSOLUTE AUTO 1.4 K/mm3 (1.0-4.8); LYMPHOCYTES PERCENT AUTO 24.4 % (24.0-44.0); MEAN CORPUSCULAR HEMOGLOBIN 25.5 pg (28.0-32.0); MEAN CORPUSCULAR HGB CONC 34.2 g/dl (32.0-36.0); MEAN CORPUSCULAR VOLUME 74.7 fl (83.0-99.0); MEAN PLATELET VOLUME 9.2 fl (9.4-12.4); MONOCYTES ABSOLUTE AUTO 0.3 K/mm3 (0.0-0.8); MONOCYTES PERCENT AUTO 5.8 % (0.0-8.0); NEUTROPHILS ABSOLUTE AUTO 3.8 K/mm3 (1.8-7.7); NEUTROPHILS PERCENT AUTO 68.7 % (41.0-71.0); PLATELET COUNT,PLT 109 K/mm3 (150-400); RED BLOOD CELL COUNT 3.72 M/mm3 (4.52-5.90); WHITE BLOOD CELL COUNT,WBC 5.53 K/mm3 (3.9-11.3)
[2023-08-08 08:02] LABS: A/G RATIO 0.5 (1-2); ALBUMIN 1.9 g/dl (3.4-5.0); ANION GAP 12.1 (5-15); BILIRUBIN TOTAL 0.1 mg/dL (0.2-1.0); BUN/CREATININE RATIO 10.8 (14-18); CREATININE 1.2 mg/dL (0.7-1.3); EST CRCL DRUG DOSING (CG) 83.73 mL/min; POTASSIUM,K 4.1 mEq/L (3.5-5.1); PROTEIN TOTAL,TP 5.7 g/dl (6.4-8.2)
[2023-08-08] MEDS: Insulin Glargine,Human Rec. Analog 100 Units/ML 3 ML Pen SUBCUT SCH (09:05)
[2023-08-08 09:09] VITALS: PULSE 98
[2023-08-08 11:45] VITALS: BP 141/94
== END 2023-08-08 12:18 | disposition home or self-care (01) | DRG 637 ==
LOC: JD.ED 00:29 → UNDOADMIN 06:51 → JD.ICU 06:51
PROVIDERS: ADMIT Internal Medicine; ATTEND Internal Medicine
DX: E10.10 Type 1 diabetes mellitus with ketoacidosis without coma (principal); J18.9 Pneumonia, unspecified organism; F15.20 Other stimulant dependence, uncomplicated; E87.5 Hyperkalemia; E10.22 Type 1 diabetes mellitus with diabetic chronic kidney disease; E86.0 Dehydration; E10.21 Type 1 diabetes mellitus with diabetic nephropathy; I12.9 Hypertensive chronic kidney disease with stage 1 through stage 4 chronic kidney disease, or unspecified chronic kidney disease; N18.30 Chronic kidney disease, stage 3 unspecified; F32.A Depression, unspecified; Z86.16 Personal history of COVID-19; Z79.4 Long term (current) use of insulin; Z11.52 Encounter for screening for COVID-19; Z79.899 Other long term (current) drug therapy
CPT/HCPCS: 36415; 36600; 71045; 71045-26; 80048; 80053; 80306; 80307; 81001; 82009; 82803; 82947; 83036; 83605; 83690; 83735; 84100; 84484; 85025; 87040; 93005; 99222; 99232; 99239; A9270-GY; J0612; J0696; J1644; J1815; J1815-GY; J2405; J3480; J3490; J7030; J7042; J7060; U0002

== ENCOUNTER 2023-10-04 19:41 | Emergency (ER) | payer MEDICAID ==
[2023-10-04] MEDS ORDERED: Sodium Chloride 0.9% 10 ML Syringe FLUSH PRN (19:59)
[2023-10-04] MEDS ORDERED: Sodium Chloride 0.9% 1,000 ML IV ONE (19:59)
[2023-10-04] MEDS: Albuterol/Ipratropium 3.0-0.5 MG/3 ML Neb Soln NEB SCH ×3 (20:07→20:30)
[2023-10-04 20:20] LABS: HEMATOCRIT 34.6 % (42.0-52.0); HEMOGLOBIN 11.6 gm/dl (14.0-18.0); MEAN CORPUSCULAR HEMOGLOBIN 25.5 pg (28.0-32.0); MEAN CORPUSCULAR HGB CONC 33.5 g/dl (32.0-36.0); MEAN PLATELET VOLUME 9.2 fl (9.4-12.4); PLATELET COUNT,PLT 299 K/mm3 (150-400); RED BLOOD CELL COUNT 4.55 M/mm3 (4.52-5.90); WHITE BLOOD CELL COUNT,WBC 9.96 K/mm3 (3.9-11.3)
[2023-10-04 20:44] LABS: LACTIC ACID 0.8 mmol/L (0.4-2.0)
[2023-10-04 20:47] LABS: ANISOCYTOSIS 1+ SLIGHT; BAND PERCENT MAN 0 % (0-10); BASOPHILS PERCENT MAN 0 (0.2-1.2); EOSINOPHILS PERCENT MAN 2 % (0.8-7.0); HYPOCHROMASIA 1+ SLIGHT; LYMPHOCYTES % ATYPICAL MANUAL 0 %; LYMPHOCYTES PERCENT MAN 12 % (20-40); METAMYELOCYTE PERCENT MAN 1; MONOCYTES PERCENT MAN 9 % (2-10); PLATELET COUNT ESTIMATE ADEQUATE
[2023-10-04 20:51] LABS: A/G RATIO 0.5 (1-2); ALANINE AMINOTRANSFERASE,ALT 21 U/L (16-63); ALBUMIN 2.6 g/dl (3.4-5.0); ALKALINE PHOSPHATASE 112 U/L (46-116); ANION GAP 19.2 (5-15); ASPARTATE AMNIOTRANSFERASE,AST 18 U/L (15-37); BILIRUBIN TOTAL 0.4 mg/dL (0.2-1.0); BLOOD UREA NITROGEN,BUN 16 mg/dL (7-18); BUN/CREATININE RATIO 11.4 (14-18); C-REACTIVE PROTEIN <0.2 mg/dL (<1.0); CALCIUM 8.8 mg/dL (8.5-10.1); CARBON DIOXIDE,CO2 25 mEq/L (21-32); CHLORIDE,CL 92 mEq/L (98-107); CREATININE 1.4 mg/dL (0.7-1.3); EST CRCL DRUG DOSING (CG) 67.77 mL/min; ESTIMATED GFR 71 mL/min (>60); POTASSIUM,K 4.2 mEq/L (3.5-5.1); PROTEIN TOTAL,TP 7.8 g/dl (6.4-8.2); SODIUM,NA 132 mEq/L (136-145)
[2023-10-04 20:56] LABS: GLUCOSE RANDOM 549 mg/dL (70-99)
[2023-10-04] MEDS ORDERED: Insulin Lispro 100 Unit/ML 3 ML KwikPen SUBCUT ONE (21:10)
[2023-10-04 23:04] VITALS: BP 113/89; PULSE 105
== END 2023-10-04 23:00 | disposition home or self-care (01) ==
LOC: JD.ED 19:41
DX: R05.2 Subacute cough (principal); E10.65 Type 1 diabetes mellitus with hyperglycemia; J45.909 Unspecified asthma, uncomplicated; Z86.16 Personal history of COVID-19
CPT/HCPCS: 36415; 71046; 80053; 82947; 83605; 85007; 85027; 86140; 87040; 94640; 96360; 96361; 99284; J1815; J3490; J7030; J7620-GY

== ENCOUNTER 2023-10-08 19:05 | Inpatient (IN) | payer SELFPAY ==
[2023-10-08] MEDS ORDERED: Metoclopramide 10 MG/2 ML SDV IVPUSH ONE (19:29)
[2023-10-08] MEDS ORDERED: Lactated Ringers 1,000 ML IV SCH (19:30)
[2023-10-08] MEDS ORDERED: Insulin Regular in 0.9 % NACL 100 ML IV SCH ×2 (19:30→21:45)
[2023-10-08 20:04] LABS: BASE EXCESS ARTERIAL -22.9 (-2-2.0); BICARBONATE,ARTERIAL 5.6 meq/L (22.0-26.0); O2 SATURATION ARTERIAL 70.2 % (96.0-97.0)
[2023-10-08 20:30] LABS: BASOPHILS PERCENT AUTO 0.2 % (0.0-1.0); HEMATOCRIT 38.9 % (42.0-52.0); IMMATURE GRAN ABSOLUTE AUTO 0.15 K/mm3 (0.00-0.05); IMMATURE GRAN PERCENT AUTO 0.7 % (0.0-0.4); LYMPHOCYTES ABSOLUTE AUTO 1.3 K/mm3 (1.0-4.8); LYMPHOCYTES PERCENT AUTO 6.6 % (24.0-44.0); MEAN CORPUSCULAR HEMOGLOBIN 25.2 pg (28.0-32.0); MEAN CORPUSCULAR HGB CONC 33.4 g/dl (32.0-36.0); MEAN CORPUSCULAR VOLUME 75.5 fl (83.0-99.0); MEAN PLATELET VOLUME 9.1 fl (9.4-12.4); MONOCYTES ABSOLUTE AUTO 0.9 K/mm3 (0.0-0.8); MONOCYTES PERCENT AUTO 4.2 % (0.0-8.0); NEUTROPHILS ABSOLUTE AUTO 17.9 K/mm3 (1.8-7.7); NEUTROPHILS PERCENT AUTO 88.3 % (41.0-71.0); PLATELET COUNT,PLT 450 K/mm3 (150-400); RED BLOOD CELL COUNT 5.15 M/mm3 (4.52-5.90); WHITE BLOOD CELL COUNT,WBC 20.29 K/mm3 (3.9-11.3)
[2023-10-08 20:52] LABS: INR 0.96; PROTHROMBIN TIME 10.3 SECONDS (9.7-12.0)
[2023-10-08 20:53] LABS: PTT,PARTIAL THROMBOPLSTIN TIME 27.1 SECONDS (21.7-31.4)
[2023-10-08 21:10] LABS: A/G RATIO 0.5 (1-2); ANION GAP 35.5 (5-15); BILIRUBIN TOTAL 0.6 mg/dL (0.2-1.0); BUN/CREATININE RATIO 18.6 (14-18); C-REACTIVE PROTEIN 0.4 mg/dL (<1.0); CALCIUM 9.5 mg/dL (8.5-10.1); CREATININE 2.1 mg/dL (0.7-1.3); EST CRCL DRUG DOSING (CG) 43.74 mL/min; MAGNESIUM 2.2 mg/dL (1.8-2.4); PROTEIN TOTAL,TP 8.6 g/dl (6.4-8.2)
[2023-10-08 21:18] LABS: POTASSIUM,K 4.5 mEq/L (3.5-5.1)
[2023-10-08] MEDS: Lactated Ringers 1,000 ML IV SCH ×2 (21:35→23:01)
[2023-10-08] MEDS ORDERED: Dextrose 5%-0.9% NaCl with KCl 1,000 ML IV SCH (23:45)
[2023-10-09 01:53] LABS: A/G RATIO 0.6 (1-2); ALBUMIN 2.3 g/dl (3.4-5.0); ANION GAP 19.6 (5-15); BILIRUBIN TOTAL 0.4 mg/dL (0.2-1.0); CALCIUM 8.3 mg/dL (8.5-10.1); CREATININE 1.5 mg/dL (0.7-1.3); EST CRCL DRUG DOSING (CG) 61.24 mL/min; POTASSIUM,K 3.6 mEq/L (3.5-5.1); PROTEIN TOTAL,TP 6.2 g/dl (6.4-8.2)
[2023-10-09] MEDS ORDERED: Lactated Ringers 1,000 ML IV SCH (02:15)
[2023-10-09] MEDS: Lactated Ringers 1,000 ML IV SCH (02:16)
[2023-10-09] MEDS: Potassium Chloride 10 MEQ in Premix Bag 1 BAG IV SCH ×3 (02:21→05:13)
[2023-10-09] MEDS ORDERED: Insulin Regular, Human 100 Units/ML 3 ML Vial SUBCUT ONE (05:26)
[2023-10-09] MEDS ORDERED: Metoclopramide 10 MG/2 ML SDV IVPUSH ONE (05:26)
[2023-10-09] MEDS ORDERED: Insulin Glargine,Human Rec. Analog 100 Units/ML 3 ML Pen SUBCUT ONE ×2 (05:27→12:00)
[2023-10-09 05:42] LABS: APPEARANCE,URINE CLEAR (Clear); BILIRUBIN,URINE 2+ (Negative); COLOR,URINE YELLOW (Yellow); GLUCOSE,URINE 2+ (Negative); KETONES,URINE 4+ (Negative); LEUKOCYTE ESTERASE,URINE NEGATIVE (Negative); NITRITE,URINE NEGATIVE (Negative); OCCULT BLOOD,URINE TRACE-LYSED (Negative); PROTEIN,URINE 2+ (Negative); UROBILINOGEN,URINE 0.2 (0.2-1.0)
[2023-10-09 05:51] LABS: BARBITURATE SCREEN,URINE NEGATIVE (CUTOFF=200); BENZODIAZEPINES SCREEN,URINE NEGATIVE (CUTOFF=150); BUPRENORPHINE SCREEN,URINE NEGATIVE (CUTOFF=10); METHADONE SCREEN, URINE NEGATIVE (CUT0FF=200); METHAMPHETAMINES SCREEN, URINE NEGATIVE (CUTOFF=500); OXYCODONE SCREEN,URINE NEGATIVE (CUT0FF=100); THC SCREEN,URINE 20 NG/ML PRESUMPTIVE POSITIVE (CUTOFF=50)
[2023-10-09 06:03] LABS: AMPHETAMINES SCREEN, URINE NEGATIVE (CUTOFF=500)
[2023-10-09 06:22] LABS: RBC,URINE 0-5 /hpf (0-5); WBC,URINE 0-5 /hpf (0-5)
[2023-10-09 06:23] LABS: EPITHELIAL CELLS,URINE 0-5 /hpf (0-5)
[2023-10-09 06:25] LABS: AMORPHOUS SEDIMENT,URINE FEW /hpf (NOT SEEN); BACTERIA,URINE FEW /hpf (FEW); MUCUS,URINE RARE /hpf (FEW)
[2023-10-09 07:10] LABS: ALBUMIN 2.2 g/dl (3.4-5.0); ANION GAP 26.5 (5-15); BUN/CREATININE RATIO 14.7 (14-18); CALCIUM 8.3 mg/dL (8.5-10.1); CREATININE 1.5 mg/dL (0.7-1.3); EST CRCL DRUG DOSING (CG) 61.24 mL/min; POTASSIUM,K 4.5 mEq/L (3.5-5.1); PROTEIN TOTAL,TP 6.3 g/dl (6.4-8.2)
[2023-10-09 07:11] LABS: A/G RATIO 0.5 (1-2); BILIRUBIN TOTAL 0.6 mg/dL (0.2-1.0)
[2023-10-09] MEDS ORDERED: Insulin Regular in 0.9 % NACL 100 ML IV SCH (07:45)
[2023-10-09] MEDS ORDERED: Lactated Ringers 1,000 ML IV STA (07:53)
[2023-10-09] MEDS ORDERED: Sodium Chloride 0.45% with KCl 1,000 ML IV SCH (08:30)
[2023-10-09] MEDS ORDERED: D5 1/2 NS w/ 40 mEq/L KCl 1,000 ML IV SCH (09:00)
[2023-10-09] MEDS ORDERED: Acetaminophen 325 MG Tab PO PRN (09:08)
[2023-10-09] MEDS ORDERED: Ondansetron 4 MG/2 ML SDV IV PRN (09:08)
[2023-10-09 10:57] LABS: ANION GAP 14.9 (5-15); BUN/CREATININE RATIO 13.1 (14-18); CALCIUM 8.1 mg/dL (8.5-10.1); CREATININE 1.3 mg/dL (0.7-1.3); EST CRCL DRUG DOSING (CG) 74.69 mL/min; POTASSIUM,K 3.9 mEq/L (3.5-5.1)
[2023-10-09] MEDS: Insulin Lispro 100 Unit/ML 3 ML KwikPen SUBCUT SCH ×3 (11:32→21:15)
[2023-10-09] MEDS ORDERED: Insulin Glargine,Human Rec. Analog 100 Units/ML 3 ML Pen SUBCUT SCH (21:00)
[2023-10-10] MEDS ORDERED: Loperamide 2 MG Cap PO PRN (04:24)
[2023-10-10 05:39] LABS: HEMATOCRIT 28.8 % (42.0-52.0); MEAN CORPUSCULAR HEMOGLOBIN 25.8 pg (28.0-32.0); MEAN CORPUSCULAR HGB CONC 33.7 g/dl (32.0-36.0); MEAN CORPUSCULAR VOLUME 76.6 fl (83.0-99.0); MEAN PLATELET VOLUME 9.1 fl (9.4-12.4); RED BLOOD CELL COUNT 3.76 M/mm3 (4.52-5.90); WHITE BLOOD CELL COUNT,WBC 7.77 K/mm3 (3.9-11.3)
[2023-10-10 05:48] LABS: A/G RATIO 0.5 (1-2); ANION GAP 12.7 (5-15); BILIRUBIN TOTAL 0.3 mg/dL (0.2-1.0); CREATININE 1.1 mg/dL (0.7-1.3); EST CRCL DRUG DOSING (CG) 87.23 mL/min; POTASSIUM,K 3.7 mEq/L (3.5-5.1); PROTEIN TOTAL,TP 5.9 g/dl (6.4-8.2)
[2023-10-10 05:49] LABS: HEMOGLOBIN 9.7 gm/dl (14.0-18.0); PLATELET COUNT,PLT 230 K/mm3 (150-400)
[2023-10-10] MEDS: Insulin Lispro 100 Unit/ML 3 ML KwikPen SUBCUT SCH ×2 (07:24→11:35)
[2023-10-10] MEDS ORDERED: Insulin Glargine,Human Rec. Analog 100 Units/ML 3 ML Pen SUBCUT SCH (09:00)
[2023-10-10] MEDS ORDERED: Enoxaparin 40 MG/0.4 ML Syringe SUBCUT SCH (09:00)
[2023-10-10 13:48] LABS: ANION GAP 11.4 (5-15); EST CRCL DRUG DOSING (CG) 95.95 mL/min; POTASSIUM,K 3.4 mEq/L (3.5-5.1)
[2023-10-10 14:59] VITALS: PULSE 91
[2023-10-10 15:08] VITALS: BP 147/107
== END 2023-10-10 15:45 | disposition home or self-care (01) | DRG 919 ==
LOC: JD.ED 19:05 → JD.ICU 10-09 08:00
PROVIDERS: ADMIT Internal Medicine; ATTEND Student in an Organized Health Care Education/Training Program
PROC: 4A033R1 Measurement of Arterial Saturation, Peripheral, Percutaneous Approach (ICD-10-PCS; principal; 2023-10-09)
DX: T85.694A Other mechanical complication of insulin pump, initial encounter (principal); E10.10 Type 1 diabetes mellitus with ketoacidosis without coma; E87.1 Hypo-osmolality and hyponatremia; E10.22 Type 1 diabetes mellitus with diabetic chronic kidney disease; T38.3X6A Underdosing of insulin and oral hypoglycemic [antidiabetic] drugs, initial encounter; N18.2 Chronic kidney disease, stage 2 (mild); E10.21 Type 1 diabetes mellitus with diabetic nephropathy; J45.909 Unspecified asthma, uncomplicated; F32.A Depression, unspecified; R05.2 Subacute cough; R79.89 Other specified abnormal findings of blood chemistry; Z79.4 Long term (current) use of insulin; Z79.2 Long term (current) use of antibiotics; Z79.899 Other long term (current) drug therapy; Z87.81 Personal history of (healed) traumatic fracture; Z86.16 Personal history of COVID-19; Z91.141 Patient's other noncompliance with medication regimen due to financial hardship; Z56.0 Unemployment, unspecified
CPT/HCPCS: 36415; 36600; 71045; 71045-26; 80048; 80053; 80306; 81001; 82010; 82803; 82947; 83605; 83690; 83735; 83880; 84484; 85025; 85027; 85610; 85730; 86140; 93005; 93010; 96361; 96365; 96366; 96375; 96376; 99239; 99284; 99285-25; A9270-GY; J1650; J1815; J1815-GY; J2405; J2765; J3480; J7120

== ENCOUNTER 2024-01-02 07:58 | Inpatient (IN) | payer MEDICAID ==
[2024-01-02] MEDS: Sodium Chloride 0.9% 2,000 ML IV ONE (08:25)
[2024-01-02 08:29] LABS: BASOPHILS ABSOLUTE AUTO 0.2 K/mm3 (0.0-0.2); BASOPHILS PERCENT AUTO 0.7 % (0.0-1.0); EOSINOPHILS ABSOLUTE AUTO 0.1 K/mm3 (0.0-0.4); EOSINOPHILS PERCENT AUTO 0.3 % (0.0-6.0); HEMATOCRIT 35.8 % (42.0-52.0); IMMATURE GRAN ABSOLUTE AUTO 0.41 K/mm3 (0.00-0.05); IMMATURE GRAN PERCENT AUTO 1.9 % (0.0-0.4); LYMPHOCYTES ABSOLUTE AUTO 3.3 K/mm3 (1.0-4.8); LYMPHOCYTES PERCENT AUTO 15.8 % (24.0-44.0); MEAN CORPUSCULAR HEMOGLOBIN 25.7 pg (28.0-32.0); MEAN CORPUSCULAR HGB CONC 31.8 g/dl (32.0-36.0); MEAN CORPUSCULAR VOLUME 80.6 fl (83.0-99.0); MEAN PLATELET VOLUME 10.2 fl (9.4-12.4); MONOCYTES ABSOLUTE AUTO 1.1 K/mm3 (0.0-0.8); MONOCYTES PERCENT AUTO 5.2 % (0.0-8.0); NEUTROPHILS PERCENT AUTO 76.1 % (41.0-71.0); PLATELET COUNT,PLT 439 K/mm3 (150-400); RED BLOOD CELL COUNT 4.44 M/mm3 (4.52-5.90); WHITE BLOOD CELL COUNT,WBC 21.07 K/mm3 (3.9-11.3)
[2024-01-02] MEDS: Sodium Chloride 0.9% 10 ML Syringe FLUSH PRN ×2 (08:34)
[2024-01-02 08:40] LABS: HEMOGLOBIN 11.4 gm/dl (14.0-18.0)
[2024-01-02 08:48] LABS: BASE EXCESS ARTERIAL -29.8 (-2-2.0); BICARBONATE,ARTERIAL 2.8 meq/L (22.0-26.0); O2 SATURATION ARTERIAL 90.7 % (96.0-97.0); PCO2 ARTERIAL 15.5 mmHg (35.0-45.0)
[2024-01-02 08:55] LABS: LACTIC ACID 3.7 mmol/L (0.4-2.0)
[2024-01-02 08:58] LABS: A/G RATIO 0.7 (1-2); ALANINE AMINOTRANSFERASE,ALT 38 U/L (16-63); ALBUMIN 2.9 g/dl (3.4-5.0); ALKALINE PHOSPHATASE 155 U/L (46-116); ASPARTATE AMNIOTRANSFERASE,AST 26 U/L (15-37); BILIRUBIN TOTAL 0.6 mg/dL (0.2-1.0); BLOOD UREA NITROGEN,BUN 49 mg/dL (7-18); BUN/CREATININE RATIO 17.5 (14-18); CALCIUM 8.7 mg/dL (8.5-10.1); CHLORIDE,CL 75 mEq/L (98-107); CREATININE 2.8 mg/dL (0.7-1.3); EST CRCL DRUG DOSING (CG) 39.98 mL/min; ESTIMATED GFR 31 mL/min (>60); MAGNESIUM 2.9 mg/dL (1.8-2.4); PROTEIN TOTAL,TP 7.3 g/dl (6.4-8.2)
[2024-01-02 09:01] LABS: ANION GAP 40.2 (5-15); CARBON DIOXIDE,CO2 < 5 mEq/L (21-32); POTASSIUM,K 7.2 mEq/L (3.5-5.1); SODIUM,NA 113 mEq/L (136-145)
[2024-01-02 09:02] LABS: GLUCOSE RANDOM 1353 mg/dL (70-99); TROPONIN I HIGH SENSITIVITY < 4 pg/mL (<=76)
[2024-01-02] MEDS: SODIUM CHLORIDE 0.9% IV ONE ×2 (09:22→09:29)
[2024-01-02] MEDS: SODIUM BICARBONATE IV ONE ×2 (09:22→09:29)
[2024-01-02] MEDS: POTASSIUM CHLORIDE IV ONE (09:22)
[2024-01-02 09:23] LABS: APPEARANCE,URINE CLEAR (Clear); BILIRUBIN,URINE NEGATIVE (Negative); COLOR,URINE LIGHT YELLOW (Yellow); GLUCOSE,URINE 2+ (Negative); KETONES,URINE 3+ (Negative); LEUKOCYTE ESTERASE,URINE NEGATIVE (Negative); NITRITE,URINE NEGATIVE (Negative); OCCULT BLOOD,URINE NEGATIVE (Negative); PH,URINE 5.5 (5.0-8.0); PROTEIN,URINE 2+ (Negative); UROBILINOGEN,URINE 0.2 (0.2-1.0)
[2024-01-02] MEDS: Calcium Gluconate 10% 1 GM/10 ML SDV IVPUSH ONE ×2 (09:30)
[2024-01-02 09:34] LABS: BACTERIA,URINE NOT SEEN /hpf (FEW); MUCUS,URINE RARE /hpf (FEW); RBC,URINE 0-5 /hpf (0-5); SQUAMOUS EPITHELIAL CELLS,UR 0-5 /hpf (0-5); WBC,URINE 0-5 /hpf (0-5)
[2024-01-02 09:35] LABS: CORONAVIRUS COVID-19 NAA NEGATIVE (NEGATIVE); INFLUENZA A NAA NEGATIVE (NEGATIVE); RESPIRATORY SYNCYTIAL VIR NAA NEGATIVE (NEGATIVE)
[2024-01-02] MEDS ORDERED: Acetaminophen 325 MG Tab PO PRN (09:41)
[2024-01-02] MEDS: Insulin Regular in 0.9 % NACL 100 ML IV SCH (10:01)
[2024-01-02 10:57] LABS: BICARBONATE,ARTERIAL 2.7 meq/L (22.0-26.0); PCO2 ARTERIAL 14.2 mmHg (35.0-45.0)
[2024-01-02] MEDS: Heparin Sodium 5,000 Units/ML Vial SUBCUT SCH (10:57)
[2024-01-02] MEDS: Sodium Chloride 0.9% 1,000 ML IV SCH ×2 (10:58→12:04)
[2024-01-02 11:30] LABS: A/G RATIO 0.6 (1-2); ALANINE AMINOTRANSFERASE,ALT 34 U/L (16-63); ALBUMIN 2.4 g/dl (3.4-5.0); ALKALINE PHOSPHATASE 143 U/L (46-116); ASPARTATE AMNIOTRANSFERASE,AST 22 U/L (15-37); BILIRUBIN TOTAL 0.5 mg/dL (0.2-1.0); BLOOD UREA NITROGEN,BUN 49 mg/dL (7-18); BUN/CREATININE RATIO 16.9 (14-18); CALCIUM 8.5 mg/dL (8.5-10.1); CHLORIDE,CL 81 mEq/L (98-107); CREATININE 2.9 mg/dL (0.7-1.3); ESTIMATED GFR 30 mL/min (>60); PROTEIN TOTAL,TP 6.3 g/dl (6.4-8.2)
[2024-01-02 11:36] LABS: ANION GAP 37.8 (5-15); CARBON DIOXIDE,CO2 < 5 mEq/L (21-32); POTASSIUM,K 6.8 mEq/L (3.5-5.1); SODIUM,NA 117 mEq/L (136-145)
[2024-01-02 11:37] LABS: GLUCOSE RANDOM 1247 mg/dL (70-99)
[2024-01-02 11:44] LABS: FERRITIN 88 ng/ml (26-388); IRON,FE 58 ug/dL (65-175)
[2024-01-02 12:35] LABS: PCO2 ARTERIAL 12.2 mmHg (35.0-45.0)
[2024-01-02 12:36] LABS: BASE EXCESS ARTERIAL -27.1 (-2-2.0); O2 SATURATION ARTERIAL 99.2 % (96.0-97.0)
[2024-01-02] MEDS ORDERED: Haloperidol 0.5 MG Tab PO ONE (13:37)
[2024-01-02 15:05] LABS: BLOOD UREA NITROGEN,BUN 51 mg/dL (7-18); BUN/CREATININE RATIO 19.6 (14-18); CHLORIDE,CL 90 mEq/L (98-107); CREATININE 2.6 mg/dL (0.7-1.3); EST CRCL DRUG DOSING (CG) 41.05 mL/min; ESTIMATED GFR 34 mL/min (>60); POTASSIUM,K 4.4 mEq/L (3.5-5.1); SODIUM,NA 126 mEq/L (136-145)
[2024-01-02 15:34] LABS: ANION GAP 35.4 (5-15); CARBON DIOXIDE,CO2 < 5 mEq/L (21-32)
[2024-01-02 15:35] LABS: GLUCOSE RANDOM 846 mg/dL (70-99)
[2024-01-02 16:27] LABS: OSMOLALITY,SERUM 343 mosm/kg (280-300)
[2024-01-02] MEDS: Potassium Chloride 10 MEQ in Premix Bag 1 BAG IV ONE ×2 (17:21→18:35)
[2024-01-02 17:31] LABS: HEMOGLOBIN A1C >14.0 %
[2024-01-02 18:49] LABS: AMPHETAMINES SCREEN, URINE NEGATIVE (CUTOFF=500); BARBITURATE SCREEN,URINE NEGATIVE (CUTOFF=200); BENZODIAZEPINES SCREEN,URINE NEGATIVE (CUTOFF=150); BUPRENORPHINE SCREEN,URINE NEGATIVE (CUTOFF=10); METHADONE SCREEN, URINE NEGATIVE (CUT0FF=200); METHAMPHETAMINES SCREEN, URINE NEGATIVE (CUTOFF=500); OXYCODONE SCREEN,URINE NEGATIVE (CUT0FF=100); THC SCREEN,URINE 20 NG/ML NEGATIVE (CUTOFF=50)
[2024-01-02 18:59] LABS: ANION GAP 31.3 (5-15); BUN/CREATININE RATIO 20.8 (14-18); CALCIUM 8.1 mg/dL (8.5-10.1); CREATININE 2.4 mg/dL (0.7-1.3); EST CRCL DRUG DOSING (CG) 44.47 mL/min; POTASSIUM,K 4.3 mEq/L (3.5-5.1)
[2024-01-02] MEDS: Potassium Chloride 10 MEQ in Premix Bag 1 BAG IV SCH ×3 (19:32→23:40)
[2024-01-02] MEDS ORDERED: Sodium Chloride 0.45% 1,000 ML IV SCH (20:00)
[2024-01-02] MEDS: Sodium Chloride 0.45% 1,000 ML IV SCH (20:04)
[2024-01-02] MEDS: Promethazine 6.25 MG in Sodium Chloride 0.9% 50 ML IV PRN (20:32)
[2024-01-02] MEDS: Dextrose 5%-0.45% NaCl 1,000 ML IV SCH (20:47)
[2024-01-02 23:00] LABS: ANION GAP 19.5 (5-15); CALCIUM 7.8 mg/dL (8.5-10.1); EST CRCL DRUG DOSING (CG) 53.36 mL/min; MAGNESIUM 1.8 mg/dL (1.8-2.4); POTASSIUM,K 4.5 mEq/L (3.5-5.1)
[2024-01-03 02:14] LABS: ANION GAP 17.8 (5-15); BUN/CREATININE RATIO 19.4 (14-18); CALCIUM 7.4 mg/dL (8.5-10.1); CREATININE 1.8 mg/dL (0.7-1.3); EST CRCL DRUG DOSING (CG) 59.29 mL/min; POTASSIUM,K 4.8 mEq/L (3.5-5.1)
[2024-01-03] MEDS: Potassium Chloride 10 MEQ in Premix Bag 1 BAG IV SCH ×2 (05:26→07:46)
[2024-01-03 06:15] LABS: BASOPHILS PERCENT AUTO 0.1 % (0.0-1.0); EOSINOPHILS PERCENT AUTO 0.4 % (0.0-6.0); HEMATOCRIT 26.6 % (42.0-52.0); IMMATURE GRAN ABSOLUTE AUTO 0.05 K/mm3 (0.00-0.05); IMMATURE GRAN PERCENT AUTO 0.5 % (0.0-0.4); LYMPHOCYTES ABSOLUTE AUTO 1.7 K/mm3 (1.0-4.8); LYMPHOCYTES PERCENT AUTO 15.6 % (24.0-44.0); MEAN CORPUSCULAR HEMOGLOBIN 25.5 pg (28.0-32.0); MEAN CORPUSCULAR HGB CONC 36.1 g/dl (32.0-36.0); MEAN PLATELET VOLUME 8.9 fl (9.4-12.4); MONOCYTES PERCENT AUTO 9.4 % (0.0-8.0); RED BLOOD CELL COUNT 3.76 M/mm3 (4.52-5.90); WHITE BLOOD CELL COUNT,WBC 10.82 K/mm3 (3.9-11.3)
[2024-01-03 06:19] LABS: HEMOGLOBIN 9.6 gm/dl (14.0-18.0); MEAN CORPUSCULAR VOLUME 70.7 fl (83.0-99.0)
[2024-01-03 06:20] LABS: PLATELET COUNT,PLT 189 K/mm3 (150-400)
[2024-01-03 06:26] LABS: ANION GAP 14.1 (5-15); BUN/CREATININE RATIO 16.5 (14-18); CALCIUM 7.7 mg/dL (8.5-10.1); CREATININE 1.7 mg/dL (0.7-1.3); EST CRCL DRUG DOSING (CG) 64.43 mL/min; MAGNESIUM 1.4 mg/dL (1.8-2.4); POTASSIUM,K 4.1 mEq/L (3.5-5.1)
[2024-01-03] MEDS: Magnesium Sulfate/Water 2 GM/50 ML BAG IV ONE (06:49)
[2024-01-03] MEDS: Insulin Glargine,Human Rec. Analog 100 Units/ML 3 ML Pen SUBCUT ONE (08:10)
[2024-01-03] MEDS: Insulin Lispro 100 Unit/ML 3 ML KwikPen SUBCUT SCH ×2 (08:10→11:47)
[2024-01-03] MEDS: Famotidine 20 MG/2 ML SDV IVPUSH SCH (08:14)
[2024-01-03] MEDS: Dextrose 5%-0.45% NaCl 1,000 ML IV SCH (08:15)
[2024-01-03 09:53] LABS: ANION GAP 12.3 (5-15); BUN/CREATININE RATIO 15.3 (14-18); CALCIUM 7.7 mg/dL (8.5-10.1); CREATININE 1.5 mg/dL (0.7-1.3); EST CRCL DRUG DOSING (CG) 73.02 mL/min; POTASSIUM,K 4.3 mEq/L (3.5-5.1)
[2024-01-03 12:43] LABS: FERRITIN 74 ng/ml (26-388); IRON,FE 16 ug/dL (65-175)
[2024-01-04 04:03] VITALS: PULSE 87
[2024-01-04 05:27] LABS: BASOPHILS PERCENT AUTO 0.4 % (0.0-1.0); EOSINOPHILS PERCENT AUTO 0.6 % (0.0-6.0); HEMATOCRIT 27.4 % (42.0-52.0); HEMOGLOBIN 9.6 gm/dl (14.0-18.0); IMMATURE GRAN ABSOLUTE AUTO 0.03 K/mm3 (0.00-0.05); IMMATURE GRAN PERCENT AUTO 0.6 % (0.0-0.4); LYMPHOCYTES ABSOLUTE AUTO 1.4 K/mm3 (1.0-4.8); LYMPHOCYTES PERCENT AUTO 26.6 % (24.0-44.0); MEAN CORPUSCULAR HEMOGLOBIN 25.7 pg (28.0-32.0); MEAN CORPUSCULAR VOLUME 73.3 fl (83.0-99.0); MEAN PLATELET VOLUME 9.7 fl (9.4-12.4); MONOCYTES ABSOLUTE AUTO 0.4 K/mm3 (0.0-0.8); MONOCYTES PERCENT AUTO 8.1 % (0.0-8.0); NEUTROPHILS ABSOLUTE AUTO 3.2 K/mm3 (1.8-7.7); NEUTROPHILS PERCENT AUTO 63.7 % (41.0-71.0); PLATELET COUNT,PLT 151 K/mm3 (150-400); RED BLOOD CELL COUNT 3.74 M/mm3 (4.52-5.90); WHITE BLOOD CELL COUNT,WBC 5.08 K/mm3 (3.9-11.3)
[2024-01-04 06:17] LABS: CALCIUM 7.6 mg/dL (8.5-10.1); CREATININE 1.5 mg/dL (0.7-1.3); EST CRCL DRUG DOSING (CG) 71.39 mL/min; MAGNESIUM 1.7 mg/dL (1.8-2.4)
[2024-01-04] MEDS ORDERED: Magnesium Sulfate (4.06 MEQ/ML) 5 GM/10 ML SDV IV ONE (07:59)
[2024-01-04] MEDS: Insulin Glargine,Human Rec. Analog 100 Units/ML 3 ML Pen SUBCUT SCH (08:16)
[2024-01-04] MEDS: Lisinopril 10 MG Tab PO SCH (08:57)
[2024-01-04] MEDS ORDERED: Insulin Glargine,Human Rec. Analog 100 Units/ML 3 ML Pen SUBCUT SCH (09:00)
[2024-01-04] MEDS: Insulin Lispro 100 Unit/ML 3 ML KwikPen SUBCUT SCH (11:27)
[2024-01-04 13:16] VITALS: BP 118/80
== END 2024-01-04 13:50 | disposition home or self-care (01) | DRG 638 ==
LOC: JD.ED 07:58 → JD.ICU 09:27
PROVIDERS: ADMIT Student in an Organized Health Care Education/Training Program; ATTEND Student in an Organized Health Care Education/Training Program
PROC: 4A133R1 Monitoring of Arterial Saturation, Peripheral, Percutaneous Approach (ICD-10-PCS; principal; 2024-01-02)
DX: E10.10 Type 1 diabetes mellitus with ketoacidosis without coma (principal); E87.0 Hyperosmolality and hypernatremia; N17.9 Acute kidney failure, unspecified; R65.10 Systemic inflammatory response syndrome (SIRS) of non-infectious origin without acute organ dysfunction; T85.694A Other mechanical complication of insulin pump, initial encounter; E10.21 Type 1 diabetes mellitus with diabetic nephropathy; E10.22 Type 1 diabetes mellitus with diabetic chronic kidney disease; J45.909 Unspecified asthma, uncomplicated; N18.9 Chronic kidney disease, unspecified; D63.1 Anemia in chronic kidney disease; E87.5 Hyperkalemia; I12.9 Hypertensive chronic kidney disease with stage 1 through stage 4 chronic kidney disease, or unspecified chronic kidney disease; F41.9 Anxiety disorder, unspecified; D50.9 Iron deficiency anemia, unspecified; H54.7 Unspecified visual loss; Z79.4 Long term (current) use of insulin; Z79.899 Other long term (current) drug therapy; Z86.16 Personal history of COVID-19; Z98.890 Other specified postprocedural states
CPT/HCPCS: 0241U; 36415; 36600; 51702; 71045; 71045-26; 80048; 80053; 80306; 80307; 81001; 82010; 82728; 82803; 82947; 83036; 83540; 83605; 83690; 83735; 83930; 84132; 84484; 85025; 87040; 93005; 93010; 94760; 94762; 96360; 99285; 99285-25; A9270-GY; J0612; J1644; J1815; J1815-GY; J2550; J3475; J3480; J3490; J7030; J7040; J7042

== ENCOUNTER 2024-02-09 00:45 | Emergency (ER) | payer MEDICAID ==
[2024-02-09] MEDS: Ketamine 500 mg/10 ML MDV IM ONE (00:55)
[2024-02-09] MEDS: Etomidate 2 MG/ML 20 ML SDV IVPUSH ONE (00:58)
[2024-02-09] MEDS: Succinylcholine 200 MG/10 ML MDV IVPUSH ONE (01:00)
[2024-02-09] MEDS: propofoL 100 ML IV SCH (01:02)
[2024-02-09] MEDS ORDERED: Lactated Ringers 1,000 ML IV SCH (01:15)
[2024-02-09 01:19] LABS: BASOPHILS ABSOLUTE AUTO 0.2 K/mm3 (0.0-0.2); BASOPHILS PERCENT AUTO 0.6 % (0.0-1.0); HEMATOCRIT 38.4 % (42.0-52.0); HEMOGLOBIN 12.3 gm/dl (14.0-18.0); IMMATURE GRAN ABSOLUTE AUTO 0.29 K/mm3 (0.00-0.05); IMMATURE GRAN PERCENT AUTO 1.1 % (0.0-0.4); LYMPHOCYTES ABSOLUTE AUTO 3.4 K/mm3 (1.0-4.8); LYMPHOCYTES PERCENT AUTO 13.2 % (24.0-44.0); MEAN CORPUSCULAR HEMOGLOBIN 25.5 pg (28.0-32.0); MEAN CORPUSCULAR VOLUME 79.7 fl (83.0-99.0); MEAN PLATELET VOLUME 9.7 fl (9.4-12.4); MONOCYTES ABSOLUTE AUTO 1.8 K/mm3 (0.0-0.8); MONOCYTES PERCENT AUTO 6.9 % (0.0-8.0); NEUTROPHILS ABSOLUTE AUTO 20.1 K/mm3 (1.8-7.7); NEUTROPHILS PERCENT AUTO 78.2 % (41.0-71.0); PLATELET COUNT,PLT 512 K/mm3 (150-400); RED BLOOD CELL COUNT 4.82 M/mm3 (4.52-5.90); WHITE BLOOD CELL COUNT,WBC 25.71 K/mm3 (3.9-11.3)
[2024-02-09 01:20] LABS: APPEARANCE,URINE CLEAR (Clear); BILIRUBIN,URINE 2+ (Negative); COLOR,URINE YELLOW (Yellow); GLUCOSE,URINE 2+ (Negative); KETONES,URINE 4+ (Negative); LEUKOCYTE ESTERASE,URINE NEGATIVE (Negative); NITRITE,URINE NEGATIVE (Negative); OCCULT BLOOD,URINE TRACE-LYSED (Negative); PH,URINE 5.5 (5.0-8.0); PROTEIN,URINE 2+ (Negative); UROBILINOGEN,URINE 0.2 (0.2-1.0)
[2024-02-09] MEDS: Ketamine 200 MG/20 ML MDV ONE (01:27)
[2024-02-09] MEDS: propofoL 100 ML ONE (01:27)
[2024-02-09] MEDS: Ketamine 500 mg/10 ML MDV ONE (01:27)
[2024-02-09] MEDS: Sodium Chloride 0.9% 10 ML Syringe FLUSH PRN (01:28)
[2024-02-09] MEDS: Lactated Ringers 1,000 ML IV ONE (01:28)
[2024-02-09] MEDS: Insulin Regular, Human 100 Units/ML 3 ML Vial IV ONE (01:31)
[2024-02-09 01:45] LABS: AMORPHOUS SEDIMENT,URINE RARE /hpf (NOT SEEN); BACTERIA,URINE RARE /hpf (FEW); EPITHELIAL CELLS,URINE 0-5 /hpf (0-5); MUCUS,URINE NOT SEEN /hpf (FEW); RBC,URINE 0-5 /hpf (0-5); WBC,URINE 0-5 /hpf (0-5)
[2024-02-09 01:46] LABS: AMPHETAMINES SCREEN, URINE NEGATIVE (CUTOFF=500); BARBITURATE SCREEN,URINE NEGATIVE (CUTOFF=200); BENZODIAZEPINES SCREEN,URINE NEGATIVE (CUTOFF=150); BUPRENORPHINE SCREEN,URINE NEGATIVE (CUTOFF=10); METHADONE SCREEN, URINE NEGATIVE (CUT0FF=200); METHAMPHETAMINES SCREEN, URINE NEGATIVE (CUTOFF=500); OXYCODONE SCREEN,URINE NEGATIVE (CUT0FF=100); THC SCREEN,URINE 20 NG/ML NEGATIVE (CUTOFF=50)
[2024-02-09 01:51] LABS: A/G RATIO 0.7 (1-2); ALANINE AMINOTRANSFERASE,ALT 41 U/L (16-63); ALBUMIN 3.1 g/dl (3.4-5.0); ALKALINE PHOSPHATASE 155 U/L (46-116); BILIRUBIN TOTAL 0.5 mg/dL (0.2-1.0); BLOOD UREA NITROGEN,BUN 44 mg/dL (7-18); BUN/CREATININE RATIO 13.8 (14-18); CALCIUM 9.1 mg/dL (8.5-10.1); CHLORIDE,CL 88 mEq/L (98-107); CREATININE 3.2 mg/dL (0.7-1.3); ESTIMATED GFR 26 mL/min (>60); LIPASE 21 U/L (16-77); PROTEIN TOTAL,TP 7.4 g/dl (6.4-8.2); SODIUM,NA 127 mEq/L (136-145)
[2024-02-09 02:00] LABS: ANION GAP 40.6 (5-15); CARBON DIOXIDE,CO2 5 mEq/L (21-32)
[2024-02-09 02:01] LABS: ASPARTATE AMNIOTRANSFERASE,AST 22 U/L (15-37); GLUCOSE RANDOM 875 mg/dL (70-99); POTASSIUM,K 6.6 mEq/L (3.5-5.1)
[2024-02-09 02:10] LABS: SLIDE REVIEW ABNORMAL SMEAR
[2024-02-09] MEDS: Insulin Regular in 0.9 % NACL 100 ML IV SCH (02:21)
[2024-02-09] MEDS: Sodium Chloride 0.9% 1,000 ML IV ONE (02:24)
[2024-02-09] MEDS: Sodium Chloride 0.9% 1,000 ML ONE (02:24)
[2024-02-09] MEDS: Sodium Chloride 0.9% 1,000 ML IV SCH (03:37)
[2024-02-09] MEDS: Ketamine 200 MG/20 ML MDV IVPUSH ONE (03:52)
[2024-02-09 03:53] LABS: ANION GAP 30.9 (5-15); BUN/CREATININE RATIO 13.5 (14-18); CALCIUM 8.1 mg/dL (8.5-10.1); CREATININE 3.4 mg/dL (0.7-1.3); EST CRCL DRUG DOSING (CG) 31.39 mL/min; POTASSIUM,K 3.9 mEq/L (3.5-5.1)
[2024-02-09] MEDS: Ketamine 500 MG in Sodium Chloride 0.9% 490 ML IV SCH (04:19)
[2024-02-09 04:30] LABS: BASE EXCESS ARTERIAL -24.4 (-2-2.0); BICARBONATE,ARTERIAL 4.9 meq/L (22.0-26.0); O2 SATURATION ARTERIAL 92.3 % (96.0-97.0)
[2024-02-09 04:31] LABS: PCO2 ARTERIAL 17.8 mmHg (35.0-45.0)
[2024-02-09 07:12] VITALS: BP 100/55; PULSE 91
[2024-02-09] MEDS ORDERED: Potassium Chloride 100 ML ONE (07:33)
== END 2024-02-09 07:45 ==
LOC: JD.ED 00:45
DX: E10.11 Type 1 diabetes mellitus with ketoacidosis with coma (principal); E10.65 Type 1 diabetes mellitus with hyperglycemia; E10.22 Type 1 diabetes mellitus with diabetic chronic kidney disease; E10.21 Type 1 diabetes mellitus with diabetic nephropathy; N18.9 Chronic kidney disease, unspecified; Z86.16 Personal history of COVID-19; Z79.4 Long term (current) use of insulin; Z79.899 Other long term (current) drug therapy
CPT/HCPCS: 31500; 36415; 36600; 51702; 71045; 71045-26; 80048; 80053; 80306; 80307; 81001; 82803; 82947; 83605; 83690; 85025; 96360; 96361; 99291; 99291-25; 99292; J0330; J1815; J1815-GY; J2704; J3490; J7030; J7040; J7120

== ENCOUNTER 2024-04-19 10:06 | Emergency (ER) | payer MEDICAID ==
[2024-04-19 10:17] VITALS: BP 142/84; PULSE 127
[2024-04-19 11:31] LABS: BASOPHILS ABSOLUTE AUTO 0.1 K/mm3 (0.0-0.2); BASOPHILS PERCENT AUTO 0.3 % (0.0-1.0); EOSINOPHILS PERCENT AUTO 0.1 % (0.0-6.0); HEMATOCRIT 39.7 % (42.0-52.0); HEMOGLOBIN 13.4 gm/dl (14.0-18.0); IMMATURE GRAN ABSOLUTE AUTO 0.07 K/mm3 (0.00-0.05); IMMATURE GRAN PERCENT AUTO 0.4 % (0.0-0.4); LYMPHOCYTES ABSOLUTE AUTO 1.8 K/mm3 (1.0-4.8); LYMPHOCYTES PERCENT AUTO 10.8 % (24.0-44.0); MEAN CORPUSCULAR HEMOGLOBIN 24.8 pg (28.0-32.0); MEAN CORPUSCULAR HGB CONC 33.8 g/dl (32.0-36.0); MEAN CORPUSCULAR VOLUME 73.5 fl (83.0-99.0); MEAN PLATELET VOLUME 9.6 fl (9.4-12.4); MONOCYTES PERCENT AUTO 5.8 % (0.0-8.0); NEUTROPHILS ABSOLUTE AUTO 13.5 K/mm3 (1.8-7.7); NEUTROPHILS PERCENT AUTO 82.6 % (41.0-71.0); WHITE BLOOD CELL COUNT,WBC 16.37 K/mm3 (3.9-11.3)
[2024-04-19 11:32] LABS: PLATELET COUNT,PLT 366 K/mm3 (150-400)
[2024-04-19 11:39] LABS: BASE EXCESS ARTERIAL -18.8 (-2-2.0); BICARBONATE,ARTERIAL 7.9 meq/L (22.0-26.0); O2 SATURATION ARTERIAL 98.8 % (96.0-97.0); PCO2 ARTERIAL 21.4 mmHg (35.0-45.0)
[2024-04-19] MEDS: Albuterol/Ipratropium 3.0-0.5 MG/3 ML Neb Soln NEB ONE ×2 (11:43→14:45)
[2024-04-19 11:59] LABS: LACTIC ACID 1.5 mmol/L (0.4-2.0)
[2024-04-19] MEDS ORDERED: cefTRIAXone 1 GM Vial IVPUSH ONE (12:12)
[2024-04-19 12:20] LABS: A/G RATIO 0.8 (1-2); ALANINE AMINOTRANSFERASE,ALT 31 U/L (16-63); ALBUMIN 3.5 g/dl (3.4-5.0); ALKALINE PHOSPHATASE 120 U/L (46-116); ANION GAP 36.6 (5-15); ASPARTATE AMNIOTRANSFERASE,AST 10 U/L (15-37); BILIRUBIN TOTAL 0.7 mg/dL (0.2-1.0); BLOOD UREA NITROGEN,BUN 24 mg/dL (7-18); BUN/CREATININE RATIO 10.9 (14-18); CALCIUM 9.1 mg/dL (8.5-10.1); CHLORIDE,CL 91 mEq/L (98-107); CREATININE 2.2 mg/dL (0.7-1.3); ESTIMATED GFR 41 mL/min (>60); LIPASE 22 U/L (16-77); MAGNESIUM 2.1 mg/dL (1.8-2.4); POTASSIUM,K 4.6 mEq/L (3.5-5.1); SODIUM,NA 130 mEq/L (136-145)
[2024-04-19 12:23] LABS: CARBON DIOXIDE,CO2 7 mEq/L (21-32); GLUCOSE RANDOM 529 mg/dL (70-99)
[2024-04-19 12:24] LABS: TROPONIN I HIGH SENSITIVITY < 4 pg/mL (<=76)
[2024-04-19 12:27] LABS: CORONAVIRUS COVID-19 NAA NEGATIVE (NEGATIVE); INFLUENZA A NAA NEGATIVE (NEGATIVE); RESPIRATORY SYNCYTIAL VIR NAA NEGATIVE (NEGATIVE)
[2024-04-19] MEDS ORDERED: Sodium Chloride 0.9% 1,000 ML IV ONE (12:44)
[2024-04-19] MEDS: Sodium Chloride 0.9% 2,000 ML IV ONE (12:55)
[2024-04-19] MEDS: cefTRIAXone 1 GM in Sodium Chloride 0.9% 100 ML IV ONE (13:10)
[2024-04-19] MEDS: Insulin Regular in 0.9 % NACL 100 ML IV SCH (13:47)
[2024-04-19] MEDS: Ondansetron 4 MG/2 ML SDV IVPUSH ONE (14:42)
== END 2024-04-19 15:00 ==
LOC: JD.ED 10:06
DX: A41.9 Sepsis, unspecified organism (principal); N17.9 Acute kidney failure, unspecified; E10.10 Type 1 diabetes mellitus with ketoacidosis without coma; N18.9 Chronic kidney disease, unspecified; E86.0 Dehydration; J45.909 Unspecified asthma, uncomplicated; Z79.4 Long term (current) use of insulin; Z79.899 Other long term (current) drug therapy; Z86.16 Personal history of COVID-19
CPT/HCPCS: 0241U; 36415; 36600; 71045; 80053; 80307; 82803; 82947; 83605; 83690; 83735; 84484; 85025; 87040; 93005; 94640; 96361; 96365; 96375; 99285; J0696; J1815; J2405; J3490; J7030; 93010; J7620-GY

== ENCOUNTER 2024-09-02 10:02 | Inpatient (IN) | payer MEDICAID ==
[2024-09-02] MEDS ORDERED: Sodium Chloride 0.9% 10 ML Syringe FLUSH PRN (10:44)
[2024-09-02 11:10] LABS: BASE EXCESS VENOUS -21.8 (-4.0-2.0); BICARBONATE,VENOUS 6.8 meq/L (22-26); O2 SATURATION VENOUS 65.7; PCO2 VENOUS 22.1 mmHg (41-51); PH,VENOUS 7.11 (7.30-7.40)
[2024-09-02] MEDS: Sodium Chloride 0.9% 1,000 ML IV ONE ×2 (11:10→12:21)
[2024-09-02 11:23] LABS: BASOPHILS ABSOLUTE AUTO 0.1 K/mm3 (0.0-0.2); BASOPHILS PERCENT AUTO 0.5 % (0.0-1.0); EOSINOPHILS ABSOLUTE AUTO 0.2 K/mm3 (0.0-0.4); EOSINOPHILS PERCENT AUTO 1.6 % (0.0-6.0); HEMATOCRIT 40.9 % (42.0-52.0); HEMOGLOBIN 13.8 gm/dl (14.0-18.0); IMMATURE GRAN ABSOLUTE AUTO 0.11 K/mm3 (0.00-0.05); IMMATURE GRAN PERCENT AUTO 0.8 % (0.0-0.4); LYMPHOCYTES ABSOLUTE AUTO 1.7 K/mm3 (1.0-4.8); LYMPHOCYTES PERCENT AUTO 13.3 % (24.0-44.0); MEAN CORPUSCULAR HEMOGLOBIN 24.1 pg (28.0-32.0); MEAN CORPUSCULAR HGB CONC 33.7 g/dl (32.0-36.0); MEAN CORPUSCULAR VOLUME 71.5 fl (83.0-99.0); MEAN PLATELET VOLUME 9.5 fl (9.4-12.4); MONOCYTES ABSOLUTE AUTO 0.7 K/mm3 (0.0-0.8); MONOCYTES PERCENT AUTO 5.6 % (0.0-8.0); NEUTROPHILS ABSOLUTE AUTO 10.2 K/mm3 (1.8-7.7); NEUTROPHILS PERCENT AUTO 78.2 % (41.0-71.0); RED BLOOD CELL COUNT 5.72 M/mm3 (4.52-5.90); WHITE BLOOD CELL COUNT,WBC 13.09 K/mm3 (3.9-11.3)
[2024-09-02 11:25] LABS: PLATELET COUNT,PLT 505 K/mm3 (150-400)
[2024-09-02 11:37] LABS: A/G RATIO 0.6 (1-2); ALBUMIN 3.2 g/dl (3.4-5.0); BILIRUBIN TOTAL 0.7 mg/dL (0.2-1.0); BUN/CREATININE RATIO 12.8 (14-18); CALCIUM 9.5 mg/dL (8.5-10.1); CREATININE 2.5 mg/dL (0.7-1.3); EST CRCL DRUG DOSING (CG) 39.87 mL/min; PROTEIN TOTAL,TP 8.4 g/dl (6.4-8.2)
[2024-09-02 11:40] LABS: LACTIC ACID 1.1 mmol/L (0.4-2.0)
[2024-09-02 11:48] LABS: SLIDE REVIEW ABNORMAL SMEAR
[2024-09-02] MEDS: Ondansetron 4 MG/2 ML SDV IVPUSH ONE (12:21)
[2024-09-02] MEDS: Insulin Regular in 0.9 % NACL 100 ML IV SCH ×2 (12:31→15:15)
[2024-09-02] MEDS: Sodium Chloride 0.9% 1,000 ML IV SCH (14:55)
[2024-09-02] MEDS: Potassium Chloride 10 MEQ in Premix Bag 1 BAG IV ONE ×3 (14:55→23:17)
[2024-09-02] MEDS: Ondansetron 4 MG/2 ML SDV IVPUSH PRN (15:07)
[2024-09-02] MEDS: Dextrose 5%-0.45% NaCl 1,000 ML IV SCH (15:47)
[2024-09-02 16:26] LABS: ANION GAP 27.8 (5-15); BUN/CREATININE RATIO 16.3 (14-18); CALCIUM 8.5 mg/dL (8.5-10.1); CREATININE 1.9 mg/dL (0.7-1.3); EST CRCL DRUG DOSING (CG) 51.07 mL/min; POTASSIUM,K 3.8 mEq/L (3.5-5.1)
[2024-09-02 16:48] LABS: HEMOGLOBIN A1C >14.0 %
[2024-09-02 19:31] LABS: ANION GAP 20.9 (5-15); CALCIUM 7.7 mg/dL (8.5-10.1); CREATININE 1.8 mg/dL (0.7-1.3); EST CRCL DRUG DOSING (CG) 53.91 mL/min; PHOSPHORUS 2.2 mg/dL (2.6-4.7); POTASSIUM,K 3.9 mEq/L (3.5-5.1)
[2024-09-02 23:28] LABS: ANION GAP 13.7 (5-15); BUN/CREATININE RATIO 13.5 (14-18); CALCIUM 7.8 mg/dL (8.5-10.1); CREATININE 1.7 mg/dL (0.7-1.3); EST CRCL DRUG DOSING (CG) 57.08 mL/min; PHOSPHORUS 1.9 mg/dL (2.6-4.7); POTASSIUM,K 3.7 mEq/L (3.5-5.1)
[2024-09-02 23:29] LABS: APPEARANCE,URINE CLEAR (Clear); BILIRUBIN,URINE 3+ (Negative); COLOR,URINE YELLOW (Yellow); GLUCOSE,URINE 2+ (Negative); KETONES,URINE 4+ (Negative); LEUKOCYTE ESTERASE,URINE NEGATIVE (Negative); NITRITE,URINE NEGATIVE (Negative); OCCULT BLOOD,URINE TRACE-INTACT (Negative); PROTEIN,URINE 3+ (Negative); UROBILINOGEN,URINE 0.2 (0.2-1.0)
[2024-09-02 23:51] LABS: BACTERIA,URINE FEW /hpf (FEW); EPITHELIAL CELLS,URINE NOT SEEN /hpf (0-5); FINE GRANULAR CASTS,URINE 0-5 /lpf (0-5); MUCUS,URINE RARE /hpf (FEW); RBC,URINE 0-5 /hpf (0-5); WBC,URINE 0-5 /hpf (0-5)
[2024-09-03] MEDS: Acetaminophen 325 MG Tab PO PRN (03:04)
[2024-09-03] MEDS: Potassium Chloride 10 MEQ in Premix Bag 1 BAG IV ONE ×2 (03:08→08:12)
[2024-09-03 03:27] LABS: A/G RATIO 0.6 (1-2); ALBUMIN 2.1 g/dl (3.4-5.0); ANION GAP 13.7 (5-15); BILIRUBIN TOTAL 0.2 mg/dL (0.2-1.0); CALCIUM 7.5 mg/dL (8.5-10.1); CREATININE 1.5 mg/dL (0.7-1.3); EST CRCL DRUG DOSING (CG) 68.25 mL/min; POTASSIUM,K 3.7 mEq/L (3.5-5.1); PROTEIN TOTAL,TP 5.6 g/dl (6.4-8.2)
[2024-09-03 03:29] LABS: BASOPHILS PERCENT AUTO 0.4 % (0.0-1.0); EOSINOPHILS PERCENT AUTO 0.5 % (0.0-6.0); HEMATOCRIT 28.9 % (42.0-52.0); IMMATURE GRAN ABSOLUTE AUTO 0.02 K/mm3 (0.00-0.05); IMMATURE GRAN PERCENT AUTO 0.4 % (0.0-0.4); LYMPHOCYTES ABSOLUTE AUTO 1.7 K/mm3 (1.0-4.8); LYMPHOCYTES PERCENT AUTO 30.3 % (24.0-44.0); MEAN CORPUSCULAR HEMOGLOBIN 24.6 pg (28.0-32.0); MEAN CORPUSCULAR HGB CONC 34.9 g/dl (32.0-36.0); MEAN CORPUSCULAR VOLUME 70.5 fl (83.0-99.0); MEAN PLATELET VOLUME 9.3 fl (9.4-12.4); MONOCYTES ABSOLUTE AUTO 0.7 K/mm3 (0.0-0.8); MONOCYTES PERCENT AUTO 11.6 % (0.0-8.0); NEUTROPHILS ABSOLUTE AUTO 3.2 K/mm3 (1.8-7.7); NEUTROPHILS PERCENT AUTO 56.8 % (41.0-71.0); WHITE BLOOD CELL COUNT,WBC 5.68 K/mm3 (3.9-11.3)
[2024-09-03 03:30] LABS: HEMOGLOBIN 10.1 gm/dl (14.0-18.0); PLATELET COUNT,PLT 250 K/mm3 (150-400)
[2024-09-03 07:38] LABS: ANION GAP 10.4 (5-15); BUN/CREATININE RATIO 10.7 (14-18); CALCIUM 7.4 mg/dL (8.5-10.1); CREATININE 1.5 mg/dL (0.7-1.3); EST CRCL DRUG DOSING (CG) 68.25 mL/min; PHOSPHORUS 1.8 mg/dL (2.6-4.7); POTASSIUM,K 3.4 mEq/L (3.5-5.1)
[2024-09-03] MEDS: Enoxaparin 40 MG/0.4 ML Syringe SUBCUT SCH (08:14)
[2024-09-03] MEDS: Sodium Chloride 0.9% 1,000 ML IV SCH (11:13)
[2024-09-03 11:45] LABS: ANION GAP 14.5 (5-15); BUN/CREATININE RATIO 9.3 (14-18); CALCIUM 7.6 mg/dL (8.5-10.1); CREATININE 1.4 mg/dL (0.7-1.3); EST CRCL DRUG DOSING (CG) 73.12 mL/min; POTASSIUM,K 3.5 mEq/L (3.5-5.1)
[2024-09-04 05:44] LABS: BASOPHILS PERCENT AUTO 0.4 % (0.0-1.0); EOSINOPHILS PERCENT AUTO 0.4 % (0.0-6.0); HEMATOCRIT 29.8 % (42.0-52.0); IMMATURE GRAN ABSOLUTE AUTO 0.02 K/mm3 (0.00-0.05); IMMATURE GRAN PERCENT AUTO 0.4 % (0.0-0.4); LYMPHOCYTES ABSOLUTE AUTO 1.6 K/mm3 (1.0-4.8); LYMPHOCYTES PERCENT AUTO 34.7 % (24.0-44.0); MEAN CORPUSCULAR HEMOGLOBIN 24.5 pg (28.0-32.0); MEAN CORPUSCULAR HGB CONC 33.6 g/dl (32.0-36.0); MEAN PLATELET VOLUME 9.4 fl (9.4-12.4); MONOCYTES ABSOLUTE AUTO 0.5 K/mm3 (0.0-0.8); MONOCYTES PERCENT AUTO 10.1 % (0.0-8.0); NEUTROPHILS ABSOLUTE AUTO 2.5 K/mm3 (1.8-7.7); PLATELET COUNT,PLT 194 K/mm3 (150-400); RED BLOOD CELL COUNT 4.08 M/mm3 (4.52-5.90); WHITE BLOOD CELL COUNT,WBC 4.55 K/mm3 (3.9-11.3)
[2024-09-04 06:03] LABS: A/G RATIO 0.5 (1-2); ALBUMIN 1.8 g/dl (3.4-5.0); BILIRUBIN TOTAL 0.1 mg/dL (0.2-1.0); BUN/CREATININE RATIO 6.4 (14-18); CALCIUM 7.7 mg/dL (8.5-10.1); CREATININE 1.4 mg/dL (0.7-1.3); EST CRCL DRUG DOSING (CG) 73.12 mL/min; PROTEIN TOTAL,TP 5.2 g/dl (6.4-8.2)
[2024-09-04 08:25] VITALS: PULSE 106
[2024-09-04] MEDS: Sodium Chloride 0.9% 1,000 ML IV ONE (10:13)
[2024-09-04 13:09] VITALS: BP 137/97
== END 2024-09-04 12:35 | disposition home or self-care (01) | DRG 639 ==
LOC: JD.ED 10:02 → JD.ICU 13:26
PROVIDERS: ADMIT Family Medicine; ATTEND Family Medicine
DX: E10.10 Type 1 diabetes mellitus with ketoacidosis without coma (principal); N18.9 Chronic kidney disease, unspecified; F17.210 Nicotine dependence, cigarettes, uncomplicated; J45.909 Unspecified asthma, uncomplicated; F12.90 Cannabis use, unspecified, uncomplicated; B34.9 Viral infection, unspecified; J06.9 Acute upper respiratory infection, unspecified; H54.7 Unspecified visual loss; F32.A Depression, unspecified; Z91.199 Patient's noncompliance with other medical treatment and regimen due to unspecified reason; Z87.81 Personal history of (healed) traumatic fracture; Z86.16 Personal history of COVID-19; Z79.4 Long term (current) use of insulin; Z79.899 Other long term (current) drug therapy; Z98.890 Other specified postprocedural states
CPT/HCPCS: 36415; 71045; 80053; 82803; 82947 ×2; 83036; 83605; 83735; 83930; 84100; 85025; 87040 ×2; 87428; 96361; 96374; 99285; J1815; J2405; J7030 ×2; 80048; 81001; 82800; 99223; 99233; 99239; A9270-GY; J3480; J7799

== ENCOUNTER 2024-11-18 08:54 | Inpatient (IN) | payer MEDICAID, OTHER ==
[2024-11-18] MEDS: Sodium Chloride 0.9% 1,000 ML IV SCH ×3 (09:20→14:15)
[2024-11-18] MEDS: Sodium Chloride 0.9% 10 ML Syringe FLUSH PRN (09:20)
[2024-11-18] MEDS: Albuterol/Ipratropium 3.0-0.5 MG/3 ML Neb Soln NEB ONE (10:07)
[2024-11-18] MEDS: Lactated Ringers 1,000 ML IV ONE (10:10)
[2024-11-18 10:29] LABS: BASOPHILS ABSOLUTE AUTO 0.3 K/mm3 (0.0-0.2); BASOPHILS PERCENT AUTO 0.7 % (0.0-1.0); EOSINOPHILS PERCENT AUTO 0.1 % (0.0-6.0); HEMATOCRIT 32.7 % (42.0-52.0); HEMOGLOBIN 10.5 gm/dl (14.0-18.0); IMMATURE GRAN ABSOLUTE AUTO 1.32 K/mm3 (0.00-0.05); IMMATURE GRAN PERCENT AUTO 3.6 % (0.0-0.4); LYMPHOCYTES ABSOLUTE AUTO 3.6 K/mm3 (1.0-4.8); LYMPHOCYTES PERCENT AUTO 9.9 % (24.0-44.0); MEAN CORPUSCULAR HEMOGLOBIN 25.4 pg (28.0-32.0); MEAN CORPUSCULAR HGB CONC 32.1 g/dl (32.0-36.0); MEAN PLATELET VOLUME 10.2 fl (9.4-12.4); MONOCYTES ABSOLUTE AUTO 2.5 K/mm3 (0.0-0.8); MONOCYTES PERCENT AUTO 6.9 % (0.0-8.0); NEUTROPHILS ABSOLUTE AUTO 28.6 K/mm3 (1.8-7.7); NEUTROPHILS PERCENT AUTO 78.8 % (41.0-71.0); NRBC ABSOLUTE 0.03 (0.00-0.02); NRBC PERCENT 0.1 % (0.0-0.2); RED BLOOD CELL COUNT 4.13 M/mm3 (4.52-5.90); WHITE BLOOD CELL COUNT,WBC 36.24 K/mm3 (3.9-11.3)
[2024-11-18 10:32] LABS: MEAN CORPUSCULAR VOLUME 79.2 fl (83.0-99.0); PLATELET COUNT,PLT 437 K/mm3 (150-400)
[2024-11-18 10:35] LABS: BASE EXCESS ARTERIAL -25.5 (-2-2.0); BICARBONATE,ARTERIAL 3.6 meq/L (22.0-26.0); O2 SATURATION ARTERIAL 98.2 % (96.0-97.0)
[2024-11-18 10:48] LABS: SLIDE REVIEW ABNORMAL SMEAR
[2024-11-18 10:54] LABS: A/G RATIO 0.4 (1-2); ALANINE AMINOTRANSFERASE,ALT 20 U/L (16-63); ALBUMIN 1.8 g/dl (3.4-5.0); ALKALINE PHOSPHATASE 170 U/L (46-116); ANION GAP 37.4 (5-15); ASPARTATE AMNIOTRANSFERASE,AST 17 U/L (15-37); BILIRUBIN TOTAL 0.5 mg/dL (0.2-1.0); BLOOD UREA NITROGEN,BUN 50 mg/dL (7-18); BUN/CREATININE RATIO 15.6 (14-18); CALCIUM 8.4 mg/dL (8.5-10.1); CHLORIDE,CL 91 mEq/L (98-107); CREATININE 3.2 mg/dL (0.7-1.3); ESTIMATED GFR 26 mL/min (>60); MAGNESIUM 2.2 mg/dL (1.8-2.4); PROTEIN TOTAL,TP 6.5 g/dl (6.4-8.2); SODIUM,NA 128 mEq/L (136-145)
[2024-11-18 11:14] LABS: CARBON DIOXIDE,CO2 6 mEq/L (21-32); POTASSIUM,K 6.4 mEq/L (3.5-5.1)
[2024-11-18 11:15] LABS: PHOSPHORUS 9.3 mg/dL (2.6-4.7)
[2024-11-18 11:18] LABS: GLUCOSE RANDOM 754 mg/dL (70-99)
[2024-11-18] MEDS ORDERED: Insulin Regular, Human 100 Units/ML 3 ML Vial IV ONE (11:19)
[2024-11-18] MEDS ORDERED: cefTRIAXone 1,000 MG in Sodium Chloride 0.9% 50 ML IV ONE (12:09)
[2024-11-18] MEDS ORDERED: 50% Dextrose in Water 50 ML Syringe IVPUSH PRN (12:15)
[2024-11-18] MEDS ORDERED: Glucagon,Human Recombinant 1 MG Vial IM PRN (12:15)
[2024-11-18] MEDS ORDERED: Insulin Regular in 0.9 % NACL 100 ML IV SCH (12:15)
[2024-11-18] MEDS: Insulin Regular, Human 100 Units/ML 10 ML Vial IV ONE (12:53)
[2024-11-18] MEDS: cefTRIAXone 1 GM Vial IVPUSH ONE (12:56)
[2024-11-18] MEDS: Heparin Sodium 5,000 Units/ML Vial SUBCUT SCH (14:14)
[2024-11-18 14:21] LABS: BUN/CREATININE RATIO 14.8 (14-18); CALCIUM 7.5 mg/dL (8.5-10.1); CREATININE 3.1 mg/dL (0.7-1.3); EST CRCL DRUG DOSING (CG) 33.46 mL/min; POTASSIUM,K 4.9 mEq/L (3.5-5.1)
[2024-11-18 14:28] LABS: ANION GAP 34.9 (5-15)
[2024-11-18] MEDS: Insulin Regular in 0.9 % NACL 100 ML IV SCH (15:00)
[2024-11-18] MEDS: Acetaminophen 325 MG Tab PO PRN (15:46)
[2024-11-18] MEDS: Doxycycline 100 MG in Sodium Chloride 0.9% 100 ML IV SCH (15:47)
[2024-11-18] MEDS: Potassium Chloride 10 MEQ in Premix Bag 1 BAG IV ONE (15:48)
[2024-11-18 17:56] LABS: ANION GAP 30.5 (5-15); BUN/CREATININE RATIO 14.1 (14-18); CALCIUM 7.7 mg/dL (8.5-10.1); CREATININE 3.4 mg/dL (0.7-1.3); EST CRCL DRUG DOSING (CG) 30.51 mL/min; POTASSIUM,K 4.5 mEq/L (3.5-5.1)
[2024-11-18 18:04] LABS: HEMOGLOBIN A1C >14.0 %
[2024-11-18 19:37] LABS: ANION GAP 26.4 (5-15); BUN/CREATININE RATIO 15.3 (14-18); CALCIUM 7.3 mg/dL (8.5-10.1); EST CRCL DRUG DOSING (CG) 34.58 mL/min; POTASSIUM,K 4.4 mEq/L (3.5-5.1)
[2024-11-18] MEDS: Dextrose 5%-0.45% NaCl 1,000 ML IV SCH (20:51)
[2024-11-18 21:22] LABS: ANION GAP 21.9 (5-15); CALCIUM 7.5 mg/dL (8.5-10.1); EST CRCL DRUG DOSING (CG) 34.58 mL/min; POTASSIUM,K 3.9 mEq/L (3.5-5.1)
[2024-11-19 01:39] LABS: ANION GAP 17.9 (5-15); BUN/CREATININE RATIO 15.9 (14-18); CALCIUM 7.5 mg/dL (8.5-10.1); CREATININE 2.9 mg/dL (0.7-1.3); EST CRCL DRUG DOSING (CG) 35.77 mL/min; POTASSIUM,K 3.9 mEq/L (3.5-5.1)
[2024-11-19 05:49] LABS: APPEARANCE,URINE CLEAR (Clear); BILIRUBIN,URINE 1+ (Negative); COLOR,URINE YELLOW (Yellow); GLUCOSE,URINE 2+ (Negative); KETONES,URINE 3+ (Negative); LEUKOCYTE ESTERASE,URINE NEGATIVE (Negative); NITRITE,URINE NEGATIVE (Negative); OCCULT BLOOD,URINE 2+ (Negative); PH,URINE 5.5 (5.0-8.0); PROTEIN,URINE 3+ (Negative); UROBILINOGEN,URINE 0.2 (0.2-1.0)
[2024-11-19 06:07] LABS: A/G RATIO 0.3 (1-2); ALANINE AMINOTRANSFERASE,ALT 16 U/L (16-63); ALBUMIN 1.3 g/dl (3.4-5.0); ALKALINE PHOSPHATASE 118 U/L (46-116); ANION GAP 14.8 (5-15); ASPARTATE AMNIOTRANSFERASE,AST 13 U/L (15-37); BILIRUBIN TOTAL 0.1 mg/dL (0.2-1.0); BLOOD UREA NITROGEN,BUN 43 mg/dL (7-18); BUN/CREATININE RATIO 15.9 (14-18); CALCIUM 7.2 mg/dL (8.5-10.1); CARBON DIOXIDE,CO2 19 mEq/L (21-32); CHLORIDE,CL 100 mEq/L (98-107); CREATININE 2.7 mg/dL (0.7-1.3); EST CRCL DRUG DOSING (CG) 38.42 mL/min; ESTIMATED GFR 32 mL/min (>60); GLUCOSE RANDOM 366 mg/dL (70-99); POTASSIUM,K 3.8 mEq/L (3.5-5.1); PROTEIN TOTAL,TP 5.2 g/dl (6.4-8.2); SODIUM,NA 130 mEq/L (136-145)
[2024-11-19 06:10] LABS: EPITHELIAL CELLS,URINE NOT SEEN /hpf (0-5); WBC,URINE 0-5 /hpf (0-5)
[2024-11-19 06:11] LABS: BACTERIA,URINE MODERATE /hpf (FEW); COARSE GRANULAR CASTS,URINE 0-5 /hpf (0-5); HYALINE CASTS,URINE 20-30 /lpf (0-5); MUCUS,URINE NOT SEEN /hpf (FEW)
[2024-11-19 06:16] LABS: BASOPHILS ABSOLUTE AUTO 0.1 K/mm3 (0.0-0.2); BASOPHILS PERCENT AUTO 0.6 % (0.0-1.0); HEMATOCRIT 26.4 % (42.0-52.0); HEMOGLOBIN 9.4 gm/dl (14.0-18.0); IMMATURE GRAN ABSOLUTE AUTO 1.54 K/mm3 (0.00-0.05); IMMATURE GRAN PERCENT AUTO 8.1 % (0.0-0.4); LYMPHOCYTES ABSOLUTE AUTO 0.8 K/mm3 (1.0-4.8); LYMPHOCYTES PERCENT AUTO 4.3 % (24.0-44.0); MEAN CORPUSCULAR HEMOGLOBIN 25.3 pg (28.0-32.0); MEAN CORPUSCULAR HGB CONC 35.6 g/dl (32.0-36.0); MEAN PLATELET VOLUME 9.9 fl (9.4-12.4); MONOCYTES ABSOLUTE AUTO 1.6 K/mm3 (0.0-0.8); MONOCYTES PERCENT AUTO 8.3 % (0.0-8.0); NEUTROPHILS PERCENT AUTO 78.7 % (41.0-71.0); NRBC ABSOLUTE 0.03 (0.00-0.02); NRBC PERCENT 0.2 % (0.0-0.2); RED BLOOD CELL COUNT 3.71 M/mm3 (4.52-5.90); WHITE BLOOD CELL COUNT,WBC 19.09 K/mm3 (3.9-11.3)
[2024-11-19 06:19] LABS: MEAN CORPUSCULAR VOLUME 71.2 fl (83.0-99.0); PLATELET COUNT,PLT 270 K/mm3 (150-400)
[2024-11-19 06:23] LABS: C-REACTIVE PROTEIN > 25.00 mg/dL (<0.30)
[2024-11-19] MEDS: Potassium Chloride 10 MEQ in Premix Bag 1 BAG IV SCH (06:45)
[2024-11-19] MEDS: Ondansetron 4 MG/2 ML SDV IV PRN (09:27)
[2024-11-19 10:57] LABS: ANION GAP 13.9 (5-15); BUN/CREATININE RATIO 16.5 (14-18); CALCIUM 7.5 mg/dL (8.5-10.1); CREATININE 2.3 mg/dL (0.7-1.3); EST CRCL DRUG DOSING (CG) 45.1 mL/min; POTASSIUM,K 3.9 mEq/L (3.5-5.1)
[2024-11-19] MEDS: Insulin Glargine,Human Rec. Analog 100 Units/ML 3 ML Pen SUBCUT SCH (11:40)
[2024-11-19] MEDS: Insulin Lispro 100 Unit/ML 3 ML KwikPen SUBCUT SCH (11:40)
[2024-11-19] MEDS: cefTRIAXone 1 GM Vial IVPUSH SCH (11:41)
[2024-11-19] MEDS: Dextrose 5%-0.45% NaCl 1,000 ML IV SCH ×2 (13:41→20:04)
[2024-11-19] MEDS: 50% Dextrose in Water 50 ML Syringe IVPUSH PRN ×2 (14:10→20:00)
[2024-11-20 05:28] LABS: BASOPHILS ABSOLUTE AUTO 0.1 K/mm3 (0.0-0.2); BASOPHILS PERCENT AUTO 0.6 % (0.0-1.0); EOSINOPHILS PERCENT AUTO 0.1 % (0.0-6.0); HEMATOCRIT 26.4 % (42.0-52.0); HEMOGLOBIN 9.2 gm/dl (14.0-18.0); IMMATURE GRAN ABSOLUTE AUTO 0.43 K/mm3 (0.00-0.05); IMMATURE GRAN PERCENT AUTO 2.3 % (0.0-0.4); LYMPHOCYTES ABSOLUTE AUTO 1.5 K/mm3 (1.0-4.8); LYMPHOCYTES PERCENT AUTO 8.3 % (24.0-44.0); MEAN CORPUSCULAR HEMOGLOBIN 25.6 pg (28.0-32.0); MEAN CORPUSCULAR HGB CONC 34.8 g/dl (32.0-36.0); MEAN CORPUSCULAR VOLUME 73.5 fl (83.0-99.0); MEAN PLATELET VOLUME 9.5 fl (9.4-12.4); MONOCYTES ABSOLUTE AUTO 1.5 K/mm3 (0.0-0.8); MONOCYTES PERCENT AUTO 7.9 % (0.0-8.0); NEUTROPHILS ABSOLUTE AUTO 14.9 K/mm3 (1.8-7.7); NEUTROPHILS PERCENT AUTO 80.8 % (41.0-71.0); PLATELET COUNT,PLT 232 K/mm3 (150-400); RED BLOOD CELL COUNT 3.59 M/mm3 (4.52-5.90); WHITE BLOOD CELL COUNT,WBC 18.39 K/mm3 (3.9-11.3)
[2024-11-20 05:30] LABS: SLIDE REVIEW ABNORMAL SMEAR
[2024-11-20 05:58] LABS: A/G RATIO 0.3 (1-2); ALBUMIN 1.2 g/dl (3.4-5.0); ANION GAP 14.7 (5-15); BILIRUBIN TOTAL 0.2 mg/dL (0.2-1.0); BUN/CREATININE RATIO 12.9 (14-18); C-REACTIVE PROTEIN 20.67 mg/dL (<0.30); CALCIUM 7.8 mg/dL (8.5-10.1); CREATININE 1.4 mg/dL (0.7-1.3); EST CRCL DRUG DOSING (CG) 74.1 mL/min; POTASSIUM,K 3.7 mEq/L (3.5-5.1); PROTEIN TOTAL,TP 5.3 g/dl (6.4-8.2); SLIDE REVIEW ABNORMAL SMEAR
[2024-11-20] MEDS: SUMAtriptan 50 MG Tab PO ONE (08:47)
[2024-11-20] MEDS: Insulin Glargine,Human Rec. Analog 100 Units/ML 3 ML Pen SUBCUT SCH ×2 (08:48→20:36)
[2024-11-20] MEDS: Insulin Glargine,Human Rec. Analog 100 Units/ML 3 ML Pen SUBCUT STA (11:38)
[2024-11-21 05:28] LABS: BASOPHILS ABSOLUTE AUTO 0.1 K/mm3 (0.0-0.2); BASOPHILS PERCENT AUTO 0.3 % (0.0-1.0); EOSINOPHILS ABSOLUTE AUTO 0.1 K/mm3 (0.0-0.4); EOSINOPHILS PERCENT AUTO 0.3 % (0.0-6.0); HEMATOCRIT 25.8 % (42.0-52.0); HEMOGLOBIN 8.7 gm/dl (14.0-18.0); IMMATURE GRAN ABSOLUTE AUTO 0.17 K/mm3 (0.00-0.05); IMMATURE GRAN PERCENT AUTO 1.1 % (0.0-0.4); LYMPHOCYTES ABSOLUTE AUTO 1.8 K/mm3 (1.0-4.8); LYMPHOCYTES PERCENT AUTO 12.1 % (24.0-44.0); MEAN CORPUSCULAR HEMOGLOBIN 25.2 pg (28.0-32.0); MEAN CORPUSCULAR HGB CONC 33.7 g/dl (32.0-36.0); MEAN CORPUSCULAR VOLUME 74.8 fl (83.0-99.0); MEAN PLATELET VOLUME 9.8 fl (9.4-12.4); MONOCYTES ABSOLUTE AUTO 1.1 K/mm3 (0.0-0.8); MONOCYTES PERCENT AUTO 7.3 % (0.0-8.0); NEUTROPHILS ABSOLUTE AUTO 11.8 K/mm3 (1.8-7.7); NEUTROPHILS PERCENT AUTO 78.9 % (41.0-71.0); PLATELET COUNT,PLT 225 K/mm3 (150-400); RED BLOOD CELL COUNT 3.45 M/mm3 (4.52-5.90)
[2024-11-21 05:48] LABS: A/G RATIO 0.3 (1-2); ALBUMIN 1.2 g/dl (3.4-5.0); ANION GAP 13.1 (5-15); BILIRUBIN TOTAL 0.2 mg/dL (0.2-1.0); BUN/CREATININE RATIO 12.5 (14-18); CREATININE 1.2 mg/dL (0.7-1.3); EST CRCL DRUG DOSING (CG) 86.45 mL/min; POTASSIUM,K 4.1 mEq/L (3.5-5.1); PROTEIN TOTAL,TP 5.4 g/dl (6.4-8.2)
[2024-11-21 05:56] LABS: SLIDE REVIEW ABNORMAL SMEAR
[2024-11-21] MEDS: Insulin Glargine,Human Rec. Analog 100 Units/ML 3 ML Pen SUBCUT SCH ×2 (06:11→20:13)
[2024-11-21] MEDS: Insulin Glargine,Human Rec. Analog 100 Units/ML 3 ML Pen SUBCUT ONE ×2 (11:25→16:15)
[2024-11-22 04:25] VITALS: PULSE 110
[2024-11-22 04:47] LABS: HEMATOCRIT 27.1 % (42.0-52.0); HEMOGLOBIN 8.9 gm/dl (14.0-18.0); MEAN CORPUSCULAR HEMOGLOBIN 25.1 pg (28.0-32.0); MEAN CORPUSCULAR HGB CONC 32.8 g/dl (32.0-36.0); MEAN CORPUSCULAR VOLUME 76.3 fl (83.0-99.0); MEAN PLATELET VOLUME 9.2 fl (9.4-12.4); PLATELET COUNT,PLT 190 K/mm3 (150-400); RED BLOOD CELL COUNT 3.55 M/mm3 (4.52-5.90)
[2024-11-22 05:17] LABS: A/G RATIO 0.3 (1-2); ALBUMIN 1.1 g/dl (3.4-5.0); ANION GAP 12.3 (5-15); BILIRUBIN TOTAL 0.2 mg/dL (0.2-1.0); BUN/CREATININE RATIO 16.2 (14-18); C-REACTIVE PROTEIN 11.24 mg/dL (<0.30); CALCIUM 8.1 mg/dL (8.5-10.1); CREATININE 1.3 mg/dL (0.7-1.3); EST CRCL DRUG DOSING (CG) 79.8 mL/min; POTASSIUM,K 4.3 mEq/L (3.5-5.1); PROTEIN TOTAL,TP 5.3 g/dl (6.4-8.2)
[2024-11-22 12:51] VITALS: BP 158/102
== END 2024-11-22 16:40 | disposition home or self-care (01) | DRG 637 ==
LOC: JD.ED 08:54 → JD.ICU 12:10
PROVIDERS: ADMIT Family Medicine; ATTEND Internal Medicine
PROC: 4A033R1 Measurement of Arterial Saturation, Peripheral, Percutaneous Approach (ICD-10-PCS; principal; 2024-11-18)
DX: E10.10 Type 1 diabetes mellitus with ketoacidosis without coma (principal); J18.9 Pneumonia, unspecified organism; N18.9 Chronic kidney disease, unspecified; E10.22 Type 1 diabetes mellitus with diabetic chronic kidney disease; E10.21 Type 1 diabetes mellitus with diabetic nephropathy; N17.9 Acute kidney failure, unspecified; J30.9 Allergic rhinitis, unspecified; H54.7 Unspecified visual loss; E86.0 Dehydration; F32.A Depression, unspecified; Z86.16 Personal history of COVID-19; Z79.4 Long term (current) use of insulin; Z79.899 Other long term (current) drug therapy; Z98.890 Other specified postprocedural states
CPT/HCPCS: 36415; 36600; 71045; 80053; 82803; 82947; 83605; 83735; 84100; 84484; 85025; 86140; 87040 ×2; 93005; 94640; 96360; 96361; 99285; J7030; J7120; 80048; 81001; 82800; 83036; 85027; A9270-GY; J0696; J1644; J1815; J1815-GY; J2405; J3480; J3490; J7620-GY; J7799

== ENCOUNTER 2024-12-14 16:30 | Emergency (ER) | payer MEDICAID ==
[2024-12-14] MEDS ORDERED: Sodium Chloride 0.9% 10 ML Syringe FLUSH PRN (16:51)
[2024-12-14] MEDS ORDERED: Lidocaine 2% 5 ML SDV INJECT ONE (17:27)
[2024-12-14] MEDS: Ondansetron 4 MG/2 ML SDV IVPUSH ONE ×2 (17:45→19:24)
[2024-12-14] MEDS: Sodium Chloride 0.9% 1,000 ML IV STA ×3 (17:45→20:31)
[2024-12-14] MEDS: Lidocaine 1% 5 ML VIAL INJECT ONE (17:51)
[2024-12-14] MEDS: Lidocaine 1% 30 ML SDV ONE (17:51)
[2024-12-14 18:04] LABS: BASOPHILS ABSOLUTE AUTO 0.1 K/mm3 (0.0-0.2); BASOPHILS PERCENT AUTO 0.4 % (0.0-1.0); EOSINOPHILS PERCENT AUTO 0.1 % (0.0-6.0); HEMATOCRIT 36.6 % (42.0-52.0); IMMATURE GRAN ABSOLUTE AUTO 0.08 K/mm3 (0.00-0.05); IMMATURE GRAN PERCENT AUTO 0.5 % (0.0-0.4); LYMPHOCYTES ABSOLUTE AUTO 2.1 K/mm3 (1.0-4.8); LYMPHOCYTES PERCENT AUTO 13.7 % (24.0-44.0); MEAN CORPUSCULAR HEMOGLOBIN 24.2 pg (28.0-32.0); MEAN CORPUSCULAR HGB CONC 32.8 g/dl (32.0-36.0); MEAN CORPUSCULAR VOLUME 73.9 fl (83.0-99.0); MEAN PLATELET VOLUME 9.5 fl (9.4-12.4); MONOCYTES ABSOLUTE AUTO 1.2 K/mm3 (0.0-0.8); MONOCYTES PERCENT AUTO 8.2 % (0.0-8.0); NEUTROPHILS ABSOLUTE AUTO 11.7 K/mm3 (1.8-7.7); NEUTROPHILS PERCENT AUTO 77.1 % (41.0-71.0); PLATELET COUNT,PLT 357 K/mm3 (150-400); RED BLOOD CELL COUNT 4.95 M/mm3 (4.52-5.90); WHITE BLOOD CELL COUNT,WBC 15.21 K/mm3 (3.9-11.3)
[2024-12-14 18:18] LABS: BASE EXCESS ARTERIAL -18.6 (-2-2.0); BICARBONATE,ARTERIAL 5.6 meq/L (22.0-26.0); O2 SATURATION ARTERIAL 97.8 % (96.0-97.0)
[2024-12-14 18:27] LABS: A/G RATIO 0.4 (1-2); ALBUMIN 2.5 g/dl (3.4-5.0); ANION GAP 31.6 (5-15); BILIRUBIN TOTAL 0.5 mg/dL (0.2-1.0); BUN/CREATININE RATIO 14.6 (14-18); C-REACTIVE PROTEIN 3.19 mg/dL (<0.30); CALCIUM 8.8 mg/dL (8.5-10.1); CREATININE 2.8 mg/dL (0.7-1.3); EST CRCL DRUG DOSING (CG) 37.05 mL/min; POTASSIUM,K 4.6 mEq/L (3.5-5.1); PROTEIN TOTAL,TP 8.4 g/dl (6.4-8.2)
[2024-12-14] MEDS: Insulin Regular in 0.9 % NACL 100 ML IV SCH (19:24)
[2024-12-14] MEDS: Sodium Chloride 0.9% 1,000 ML ONE (20:41)
[2024-12-14 22:54] LABS: BUN/CREATININE RATIO 16.8 (14-18); CALCIUM 7.7 mg/dL (8.5-10.1); CREATININE 2.2 mg/dL (0.7-1.3); EST CRCL DRUG DOSING (CG) 47.15 mL/min; POTASSIUM,K 3.7 mEq/L (3.5-5.1)
[2024-12-14 23:02] LABS: ANION GAP 30.7 (5-15)
[2024-12-14] MEDS: Dextrose 5%-0.45% NaCl 1,000 ML IV SCH (23:36)
[2024-12-15 02:30] LABS: ANION GAP 19.4 (5-15); CALCIUM 7.4 mg/dL (8.5-10.1); EST CRCL DRUG DOSING (CG) 51.87 mL/min; POTASSIUM,K 3.4 mEq/L (3.5-5.1)
[2024-12-15] MEDS: 50% Dextrose in Water 50 ML Syringe IVPUSH ONE (04:21)
[2024-12-15] MEDS: Dextrose 5%-0.45% NaCl 1,000 ML IV SCH (04:21)
[2024-12-15 06:58] LABS: ANION GAP 10.5 (5-15); BUN/CREATININE RATIO 13.5 (14-18); CALCIUM 7.4 mg/dL (8.5-10.1); EST CRCL DRUG DOSING (CG) 51.87 mL/min; POTASSIUM,K 3.5 mEq/L (3.5-5.1)
[2024-12-15] MEDS: Sodium Chloride 0.9% 1,000 ML IV SCH (08:40)
[2024-12-15] MEDS: Ondansetron 4 MG/2 ML SDV IVPUSH ONE (09:51)
[2024-12-15 10:09] VITALS: BP 136/86; PULSE 106
== END 2024-12-15 10:00 | disposition home or self-care (01) ==
LOC: JD.ED 16:30
DX: E10.10 Type 1 diabetes mellitus with ketoacidosis without coma (principal); E10.65 Type 1 diabetes mellitus with hyperglycemia; E10.22 Type 1 diabetes mellitus with diabetic chronic kidney disease; N18.2 Chronic kidney disease, stage 2 (mild); E10.21 Type 1 diabetes mellitus with diabetic nephropathy; Z86.16 Personal history of COVID-19; Z79.4 Long term (current) use of insulin; Z79.899 Other long term (current) drug therapy; Z87.891 Personal history of nicotine dependence
CPT/HCPCS: 36415; 36600; 71046; 80048; 80053; 82010; 82803; 82947; 85025; 86140; 87428; 96361; 96374; 96375; 96376; 99285; A9270; J2405; J7030; 99283; J3490

== ENCOUNTER 2025-01-11 19:39 | Inpatient (IN) | payer MEDICAID ==
[2025-01-11] MEDS ORDERED: Sodium Chloride 0.9% 10 ML Syringe FLUSH PRN (20:19)
[2025-01-11 20:29] LABS: BASE EXCESS VENOUS -16.3 (-4.0-2.0); BICARBONATE,VENOUS 8.5 meq/L (22-26); O2 SATURATION VENOUS 45; PH,VENOUS 7.26 (7.30-7.40)
[2025-01-11] MEDS: Sodium Chloride 0.9% 1,000 ML IV ONE ×2 (20:29→22:26)
[2025-01-11 20:33] LABS: BASOPHILS ABSOLUTE AUTO 0.1 K/mm3 (0.0-0.2); EOSINOPHILS PERCENT AUTO 0.1 % (0.0-6.0); HEMATOCRIT 39.4 % (42.0-52.0); IMMATURE GRAN ABSOLUTE AUTO 0.02 K/mm3 (0.00-0.05); IMMATURE GRAN PERCENT AUTO 0.2 % (0.0-0.4); LYMPHOCYTES ABSOLUTE AUTO 1.2 K/mm3 (1.0-4.8); LYMPHOCYTES PERCENT AUTO 14.9 % (24.0-44.0); MEAN CORPUSCULAR HEMOGLOBIN 23.9 pg (28.0-32.0); MEAN CORPUSCULAR VOLUME 72.4 fl (83.0-99.0); MEAN PLATELET VOLUME 9.8 fl (9.4-12.4); MONOCYTES ABSOLUTE AUTO 0.6 K/mm3 (0.0-0.8); MONOCYTES PERCENT AUTO 6.7 % (0.0-8.0); NEUTROPHILS ABSOLUTE AUTO 6.4 K/mm3 (1.8-7.7); NEUTROPHILS PERCENT AUTO 77.1 % (41.0-71.0); PLATELET COUNT,PLT 273 K/mm3 (150-400); RED BLOOD CELL COUNT 5.44 M/mm3 (4.52-5.90); WHITE BLOOD CELL COUNT,WBC 8.35 K/mm3 (3.9-11.3)
[2025-01-11] MEDS: Ondansetron 4 MG/2 ML SDV IVPUSH ONE (20:44)
[2025-01-11 21:11] LABS: A/G RATIO 0.6 (1-2); ANION GAP 35.7 (5-15); BILIRUBIN TOTAL 0.8 mg/dL (0.2-1.0); BUN/CREATININE RATIO 22.1 (14-18); CALCIUM 8.8 mg/dL (8.5-10.1); CREATININE 2.9 mg/dL (0.7-1.3); EST CRCL DRUG DOSING (CG) 35.77 mL/min; MAGNESIUM 2.4 mg/dL (1.8-2.4); POTASSIUM,K 4.7 mEq/L (3.5-5.1); PROTEIN TOTAL,TP 7.8 g/dl (6.4-8.2)
[2025-01-11] MEDS: Insulin Regular in 0.9 % NACL 100 ML IV SCH (22:09)
[2025-01-11 23:47] LABS: APPEARANCE,URINE CLEAR (Clear); BILIRUBIN,URINE 1+ (Negative); COLOR,URINE YELLOW (Yellow); GLUCOSE,URINE 2+ (Negative); KETONES,URINE 4+ (Negative); LEUKOCYTE ESTERASE,URINE NEGATIVE (Negative); NITRITE,URINE NEGATIVE (Negative); OCCULT BLOOD,URINE TRACE-LYSED (Negative); PROTEIN,URINE 3+ (Negative); UROBILINOGEN,URINE 0.2 (0.2-1.0)
[2025-01-11 23:56] LABS: BACTERIA,URINE RARE /hpf (FEW); EPITHELIAL CELLS,URINE 0-5 /hpf (0-5); MUCUS,URINE RARE /hpf (FEW); WBC,URINE 0-5 /hpf (0-5)
[2025-01-12] MEDS: Sodium Chloride 0.9% 1,000 ML IV ONE (00:34)
[2025-01-12] MEDS: Ondansetron 4 MG Tab.DIS ONE (05:07)
[2025-01-12 05:35] LABS: BUN/CREATININE RATIO 22.4 (14-18); CALCIUM 7.7 mg/dL (8.5-10.1); CREATININE 2.1 mg/dL (0.7-1.3); EST CRCL DRUG DOSING (CG) 49.4 mL/min; MAGNESIUM 2.1 mg/dL (1.8-2.4); PHOSPHORUS 3.1 mg/dL (2.6-4.7); POTASSIUM,K 3.7 mEq/L (3.5-5.1)
[2025-01-12 06:47] LABS: ANION GAP 27.7 (5-15)
[2025-01-12 07:01] LABS: POTASSIUM,K 3.6 mEq/L (3.5-5.1)
[2025-01-12 07:02] LABS: ANION GAP 21.6 (5-15); BUN/CREATININE RATIO 23.6 (14-18); CREATININE 2.2 mg/dL (0.7-1.3); EST CRCL DRUG DOSING (CG) 47.15 mL/min
[2025-01-12 07:14] LABS: CALCIUM 7.7 mg/dL (8.5-10.1)
[2025-01-12] MEDS ORDERED: 50% Dextrose in Water 50 ML Syringe IVPUSH PRN (07:27)
[2025-01-12] MEDS ORDERED: Potassium Chloride 10 MEQ in Premix Bag 1 BAG IV PRN ×2 (07:27→13:38)
[2025-01-12] MEDS: Metoclopramide 10 MG/2 ML SDV IVPUSH PRN (07:54)
[2025-01-12] MEDS: Heparin Sodium 5,000 Units/ML Vial SUBCUT SCH (08:25)
[2025-01-12] MEDS: Sodium Chloride 0.9% 2,000 ML IV PRN (08:27)
[2025-01-12] MEDS: Potassium Chloride 10 MEQ in Premix Bag 1 BAG IV PRN ×3 (08:31→13:41)
[2025-01-12 08:44] LABS: ANION GAP 32.1 (5-15); BUN/CREATININE RATIO 20.9 (14-18); CALCIUM 7.7 mg/dL (8.5-10.1); CREATININE 2.3 mg/dL (0.7-1.3); EST CRCL DRUG DOSING (CG) 45.1 mL/min; MAGNESIUM 2.1 mg/dL (1.8-2.4); PHOSPHORUS 3.7 mg/dL (2.6-4.7); POTASSIUM,K 4.1 mEq/L (3.5-5.1)
[2025-01-12 09:50] LABS: BARBITURATE SCREEN,URINE NEGATIVE (CUTOFF=200); BENZODIAZEPINES SCREEN,URINE NEGATIVE (CUTOFF=150); BUPRENORPHINE SCREEN,URINE NEGATIVE (CUTOFF=10); METHADONE SCREEN, URINE NEGATIVE (CUT0FF=200); METHAMPHETAMINES SCREEN, URINE NEGATIVE (CUTOFF=500); OXYCODONE SCREEN,URINE NEGATIVE (CUT0FF=100); THC SCREEN,URINE 20 NG/ML NEGATIVE (CUTOFF=50)
[2025-01-12 09:52] LABS: AMPHETAMINES SCREEN, URINE NEGATIVE (CUTOFF=500)
[2025-01-12 10:08] LABS: HEMOGLOBIN A1C 12.4 %
[2025-01-12] MEDS: Dextrose 5%-0.45% NaCl 1,000 ML IV PRN (10:33)
[2025-01-12 12:44] LABS: ANION GAP 18.2 (5-15); BUN/CREATININE RATIO 18.5 (14-18); CALCIUM 7.3 mg/dL (8.5-10.1); EST CRCL DRUG DOSING (CG) 49.62 mL/min; POTASSIUM,K 3.2 mEq/L (3.5-5.1)
[2025-01-12 15:07] LABS: MAGNESIUM 1.8 mg/dL (1.8-2.4); PHOSPHORUS 1.6 mg/dL (2.6-4.7)
[2025-01-12 16:47] LABS: ANION GAP 19.3 (5-15); BUN/CREATININE RATIO 17.2 (14-18); CALCIUM 7.6 mg/dL (8.5-10.1); CREATININE 1.8 mg/dL (0.7-1.3); EST CRCL DRUG DOSING (CG) 55.13 mL/min; POTASSIUM,K 4.3 mEq/L (3.5-5.1)
[2025-01-12 21:22] LABS: ANION GAP 14.7 (5-15); CALCIUM 7.4 mg/dL (8.5-10.1); CREATININE 1.7 mg/dL (0.7-1.3); EST CRCL DRUG DOSING (CG) 58.37 mL/min; MAGNESIUM 1.7 mg/dL (1.8-2.4); PHOSPHORUS 1.5 mg/dL (2.6-4.7); POTASSIUM,K 3.7 mEq/L (3.5-5.1)
[2025-01-12 22:48] LABS: ANION GAP 15.9 (5-15); BUN/CREATININE RATIO 3.5 (14-18); CALCIUM 7.8 mg/dL (8.5-10.1); CREATININE 1.7 mg/dL (0.7-1.3); EST CRCL DRUG DOSING (CG) 58.37 mL/min; POTASSIUM,K 3.9 mEq/L (3.5-5.1)
[2025-01-13 00:48] LABS: MAGNESIUM 1.8 mg/dL (1.8-2.4); PHOSPHORUS 1.8 mg/dL (2.6-4.7)
[2025-01-13 04:20] LABS: BASOPHILS PERCENT AUTO 0.6 % (0.0-1.0); EOSINOPHILS ABSOLUTE AUTO 0.4 K/mm3 (0.0-0.4); EOSINOPHILS PERCENT AUTO 6.5 % (0.0-6.0); HEMATOCRIT 31.6 % (42.0-52.0); HEMOGLOBIN 10.4 gm/dl (14.0-18.0); IMMATURE GRAN ABSOLUTE AUTO 0.02 K/mm3 (0.00-0.05); IMMATURE GRAN PERCENT AUTO 0.3 % (0.0-0.4); LYMPHOCYTES ABSOLUTE AUTO 2.6 K/mm3 (1.0-4.8); LYMPHOCYTES PERCENT AUTO 39.8 % (24.0-44.0); MEAN CORPUSCULAR HEMOGLOBIN 24.2 pg (28.0-32.0); MEAN CORPUSCULAR HGB CONC 32.9 g/dl (32.0-36.0); MEAN CORPUSCULAR VOLUME 73.5 fl (83.0-99.0); MEAN PLATELET VOLUME 9.2 fl (9.4-12.4); MONOCYTES ABSOLUTE AUTO 0.5 K/mm3 (0.0-0.8); MONOCYTES PERCENT AUTO 7.9 % (0.0-8.0); NEUTROPHILS ABSOLUTE AUTO 2.9 K/mm3 (1.8-7.7); NEUTROPHILS PERCENT AUTO 44.9 % (41.0-71.0); PLATELET COUNT,PLT 179 K/mm3 (150-400); WHITE BLOOD CELL COUNT,WBC 6.49 K/mm3 (3.9-11.3)
[2025-01-13 06:25] LABS: ANION GAP 16.6 (5-15); BUN/CREATININE RATIO 11.3 (14-18); CALCIUM 7.6 mg/dL (8.5-10.1); CREATININE 1.6 mg/dL (0.7-1.3); EST CRCL DRUG DOSING (CG) 62.2 mL/min; POTASSIUM,K 3.6 mEq/L (3.5-5.1)
[2025-01-13 06:43] LABS: A/G RATIO 0.5 (1-2); ALBUMIN 1.9 g/dl (3.4-5.0); ANION GAP 16.6 (5-15); BILIRUBIN TOTAL 0.3 mg/dL (0.2-1.0); BUN/CREATININE RATIO 11.3 (14-18); CALCIUM 7.5 mg/dL (8.5-10.1); CREATININE 1.6 mg/dL (0.7-1.3); EST CRCL DRUG DOSING (CG) 62.2 mL/min; POTASSIUM,K 3.6 mEq/L (3.5-5.1); PROTEIN TOTAL,TP 5.5 g/dl (6.4-8.2)
[2025-01-13] MEDS: Sodium Chloride 0.9% 1,000 ML IV SCH (08:23)
[2025-01-13] MEDS: Phosphorus #1 250 MG Tab PO SCH (08:33)
[2025-01-13] MEDS ORDERED: Sodium Chloride 0.9% 1,000 ML IV SCH (09:00)
[2025-01-13] MEDS: Insulin Glargine,Human Rec. Analog 100 Units/ML 3 ML Pen SUBCUT ONE ×2 (10:13→12:47)
[2025-01-13] MEDS: Insulin Lispro 100 Unit/ML 3 ML KwikPen SUBCUT SCH (16:40)
[2025-01-14] MEDS: Acetaminophen 325 MG Tab PO PRN (02:37)
[2025-01-14 06:08] LABS: A/G RATIO 0.6 (1-2); ANION GAP 10.7 (5-15); BILIRUBIN TOTAL 0.1 mg/dL (0.2-1.0); BUN/CREATININE RATIO 6.9 (14-18); CALCIUM 7.7 mg/dL (8.5-10.1); CREATININE 1.3 mg/dL (0.7-1.3); EST CRCL DRUG DOSING (CG) 76.12 mL/min; POTASSIUM,K 3.7 mEq/L (3.5-5.1); PROTEIN TOTAL,TP 5.6 g/dl (6.4-8.2)
[2025-01-14 10:59] VITALS: BP 135/99; PULSE 97
== END 2025-01-14 11:06 | disposition home or self-care (01) | DRG 638 ==
LOC: JD.ED 19:39 → JD.ICU 01-12 07:19
PROVIDERS: ADMIT Family Medicine; ATTEND Family Medicine
DX: E10.10 Type 1 diabetes mellitus with ketoacidosis without coma (principal); N17.9 Acute kidney failure, unspecified; H54.7 Unspecified visual loss; J45.909 Unspecified asthma, uncomplicated; E86.0 Dehydration; E10.22 Type 1 diabetes mellitus with diabetic chronic kidney disease; E10.21 Type 1 diabetes mellitus with diabetic nephropathy; F14.90 Cocaine use, unspecified, uncomplicated; N18.9 Chronic kidney disease, unspecified; F32.A Depression, unspecified; Z86.16 Personal history of COVID-19; Z98.890 Other specified postprocedural states; Z79.4 Long term (current) use of insulin
CPT/HCPCS: 36415; 71045; 71045-26; 80048; 80053; 80306; 80307; 81001; 82800; 82803; 82947; 83036; 83735; 83930; 84100; 84132; 85025; 87428-QW; 99285; A9270-GY; J1644; J1815; J1815-GY; J2405; J2765; J3480; J7030

== ENCOUNTER 2025-04-15 10:16 | Emergency (ER) | payer MEDICAID ==
[2025-04-15 11:00] LABS: BASOPHILS ABSOLUTE AUTO 0.0 K/mm3 (0.0-0.2); BASOPHILS PERCENT AUTO 0.2 % (0.0-1.0); EOSINOPHILS ABSOLUTE AUTO 0.0 K/mm3 (0.0-0.4); EOSINOPHILS PERCENT AUTO 0.1 % (0.0-6.0); IMMATURE GRAN ABSOLUTE AUTO 0.10 K/mm3 (0.00-0.05); IMMATURE GRAN PERCENT AUTO 0.6 % (0.0-0.4); LYMPHOCYTES ABSOLUTE AUTO 2.4 K/mm3 (1.0-4.8); LYMPHOCYTES PERCENT AUTO 14.3 % (24.0-44.0); MEAN PLATELET VOLUME 9.2 fl (9.4-12.4); MONOCYTES ABSOLUTE AUTO 0.9 K/mm3 (0.0-0.8); MONOCYTES PERCENT AUTO 5.2 % (0.0-8.0); NEUTROPHILS ABSOLUTE AUTO 13.4 K/mm3 (1.8-7.7); NEUTROPHILS PERCENT AUTO 79.6 % (41.0-71.0); NRBC ABSOLUTE 0.00 (0.00-0.02); NRBC PERCENT 0.0 % (0.0-0.2); PLATELET COUNT,PLT 493 K/mm3 (150-400); RED BLOOD CELL COUNT 5.02 M/mm3 (4.52-5.90); WHITE BLOOD CELL COUNT,WBC 16.77 K/mm3 (3.9-11.3)
[2025-04-15 11:09] LABS: O2 SATURATION ARTERIAL 99.4 % (96.0-97.0); PCO2 ARTERIAL 23.0 mmHg (35.0-45.0); PO2 ARTERIAL 94.0 mmHg (80.0-100.0)
[2025-04-15 11:10] LABS: BASE EXCESS ARTERIAL -11.1 (-2-2.0); BICARBONATE,ARTERIAL 12.7 meq/L (22.0-26.0)
[2025-04-15 11:14] LABS: INR 0.97
[2025-04-15 11:19] LABS: A/G RATIO 0.5 (1-2); ALANINE AMINOTRANSFERASE,ALT 18 U/L (16-63); ASPARTATE AMNIOTRANSFERASE,AST 12 U/L (15-37); BILIRUBIN TOTAL 0.5 mg/dL (0.2-1.0); BLOOD UREA NITROGEN,BUN 37 mg/dL (7-18); CARBON DIOXIDE,CO2 13 mEq/L (21-32); CHLORIDE,CL 97 mEq/L (98-107); CREATINE KINASE,CK 110 U/L (39-308); CREATININE 2.7 mg/dL (0.7-1.3); ESTIMATED GFR 32 mL/min (>60); GLUCOSE RANDOM 206 mg/dL (70-99); POTASSIUM,K 4.5 mEq/L (3.5-5.1); PROTEIN TOTAL,TP 7.4 g/dl (6.4-8.2); SODIUM,NA 134 mEq/L (136-145); TROPONIN I HIGH SENSITIVITY 11 pg/mL (<=76)
[2025-04-15 11:28] LABS: ETHANOL BLOOD MEDICAL 0.00 gm% (0.00)
[2025-04-15] MEDS: Ondansetron 4 MG/2 ML SDV IVPUSH ONE (11:31)
[2025-04-15 11:51] LABS: APPEARANCE,URINE CLEAR (Clear); GLUCOSE,URINE 2+ (Negative); OCCULT BLOOD,URINE 2+ (Negative)
[2025-04-15 11:59] LABS: BUPRENORPHINE SCREEN,URINE NEGATIVE (CUTOFF=10); METHADONE SCREEN, URINE NEGATIVE (CUT0FF=200); METHAMPHETAMINES SCREEN, URINE NEGATIVE (CUTOFF=500); OXYCODONE SCREEN,URINE NEGATIVE (CUT0FF=100); THC SCREEN,URINE 20 NG/ML NEGATIVE (CUTOFF=50)
[2025-04-15 12:02] LABS: AMPHETAMINES SCREEN, URINE NEGATIVE (CUTOFF=500)
[2025-04-15 12:05] LABS: COARSE GRANULAR CASTS,URINE 0-5 /hpf (0-5); EPITHELIAL CELLS,URINE 0-5 /hpf (0-5)
[2025-04-15 14:37] VITALS: BP 138/86; PULSE 113
== END 2025-04-15 14:45 | disposition home or self-care (01) ==
LOC: JD.ED 10:16
DX: N17.9 Acute kidney failure, unspecified (principal); E10.9 Type 1 diabetes mellitus without complications; F14.90 Cocaine use, unspecified, uncomplicated; Z91.198 Patient's noncompliance with other medical treatment and regimen for other reason; Z79.4 Long term (current) use of insulin; Z79.899 Other long term (current) drug therapy; Z86.16 Personal history of COVID-19
CPT/HCPCS: 36415; 36600; 70450; 71045; 80053; 80143; 80179; 80306; 80307; 81001; 82010; 82550; 82803; 83605; 83690; 83735; 84484; 85025; 85610; 93005; 96361; 96374; 99285; J2405; J7030

== ENCOUNTER 2025-04-25 22:39 | Inpatient (IN) | payer MEDICAID ==
[2025-04-25] MEDS ORDERED: Sodium Chloride 0.9% 10 ML Syringe FLUSH PRN (22:48)
[2025-04-25 23:23] LABS: O2 SATURATION VENOUS 100; PH,VENOUS 6.80 (7.30-7.40); PO2 VENOUS 275.0 mmHG (40-80)
[2025-04-25 23:29] LABS: APPEARANCE,URINE CLEAR (Clear); GLUCOSE,URINE 2+ (Negative); OCCULT BLOOD,URINE 2+ (Negative)
[2025-04-25 23:50] LABS: BUPRENORPHINE SCREEN,URINE NEGATIVE (CUTOFF=10); METHADONE SCREEN, URINE NEGATIVE (CUT0FF=200); METHAMPHETAMINES SCREEN, URINE NEGATIVE (CUTOFF=500); OXYCODONE SCREEN,URINE NEGATIVE (CUT0FF=100); THC SCREEN,URINE 20 NG/ML NEGATIVE (CUTOFF=50)
[2025-04-25 23:51] LABS: EPITHELIAL CELLS,URINE 0-5 /hpf (0-5)
[2025-04-26 00:16] LABS: BASOPHILS ABSOLUTE AUTO 0.2 K/mm3 (0.0-0.2); BASOPHILS PERCENT AUTO 0.7 % (0.0-1.0); EOSINOPHILS ABSOLUTE AUTO 0.1 K/mm3 (0.0-0.4); EOSINOPHILS PERCENT AUTO 0.3 % (0.0-6.0); IMMATURE GRAN ABSOLUTE AUTO 1.70 K/mm3 (0.00-0.05); IMMATURE GRAN PERCENT AUTO 8.1 % (0.0-0.4); LYMPHOCYTES ABSOLUTE AUTO 3.4 K/mm3 (1.0-4.8); LYMPHOCYTES PERCENT AUTO 16.4 % (24.0-44.0); MEAN PLATELET VOLUME 10.6 fl (9.4-12.4); MONOCYTES ABSOLUTE AUTO 0.9 K/mm3 (0.0-0.8); MONOCYTES PERCENT AUTO 4.2 % (0.0-8.0); NEUTROPHILS ABSOLUTE AUTO 14.7 K/mm3 (1.8-7.7); NEUTROPHILS PERCENT AUTO 70.3 % (41.0-71.0); NRBC ABSOLUTE 0.00 (0.00-0.02); NRBC PERCENT 0.0 % (0.0-0.2); PLATELET COUNT,PLT 348 K/mm3 (150-400); RED BLOOD CELL COUNT 4.03 M/mm3 (4.52-5.90); WHITE BLOOD CELL COUNT,WBC 20.94 K/mm3 (3.9-11.3)
[2025-04-26 00:17] LABS: AMPHETAMINES SCREEN, URINE NEGATIVE (CUTOFF=500)
[2025-04-26 00:50] LABS: BASOPHILS ABSOLUTE AUTO 0.2 K/mm3 (0.0-0.2); BASOPHILS PERCENT AUTO 0.8 % (0.0-1.0); EOSINOPHILS ABSOLUTE AUTO 0.1 K/mm3 (0.0-0.4); EOSINOPHILS PERCENT AUTO 0.2 % (0.0-6.0); IMMATURE GRAN ABSOLUTE AUTO 1.76 K/mm3 (0.00-0.05); IMMATURE GRAN PERCENT AUTO 7.5 % (0.0-0.4); LYMPHOCYTES ABSOLUTE AUTO 3.6 K/mm3 (1.0-4.8); LYMPHOCYTES PERCENT AUTO 15.2 % (24.0-44.0); MEAN PLATELET VOLUME 10.3 fl (9.4-12.4); MONOCYTES ABSOLUTE AUTO 1.3 K/mm3 (0.0-0.8); MONOCYTES PERCENT AUTO 5.4 % (0.0-8.0); NEUTROPHILS ABSOLUTE AUTO 16.6 K/mm3 (1.8-7.7); NEUTROPHILS PERCENT AUTO 70.9 % (41.0-71.0); NRBC ABSOLUTE 0.00 (0.00-0.02); NRBC PERCENT 0.0 % (0.0-0.2); PLATELET COUNT,PLT 348 K/mm3 (150-400); RED BLOOD CELL COUNT 4.12 M/mm3 (4.52-5.90); WHITE BLOOD CELL COUNT,WBC 23.43 K/mm3 (3.9-11.3)
[2025-04-26] MEDS: Insulin Regular, Human 100 Units/ML 10 ML Vial IV ONE (00:54)
[2025-04-26 01:00] LABS: A/G RATIO 0.3 (1-2); ALANINE AMINOTRANSFERASE,ALT 26 U/L (16-63); ASPARTATE AMNIOTRANSFERASE,AST 87 U/L (15-37); BILIRUBIN TOTAL 0.5 mg/dL (0.2-1.0); BLOOD UREA NITROGEN,BUN 56 mg/dL (7-18); CHLORIDE,CL 79 mEq/L (98-107); CREATININE 4.1 mg/dL (0.7-1.3); ESTIMATED GFR 19 mL/min (>60); PROTEIN TOTAL,TP 4.7 g/dl (6.4-8.2)
[2025-04-26] MEDS: LORazepam 2 MG/ML SDV IVPUSH ONE (01:00)
[2025-04-26 01:02] LABS: ETHANOL BLOOD MEDICAL 0.00 gm% (0.00); PHOSPHORUS 12.1 mg/dL (2.6-4.7)
[2025-04-26 01:05] LABS: CARBON DIOXIDE,CO2 5 mEq/L (21-32); POTASSIUM,K 8.7 mEq/L (3.5-5.1); SODIUM,NA 117 mEq/L (136-145)
[2025-04-26 01:06] LABS: GLUCOSE RANDOM 1634 mg/dL (70-99)
[2025-04-26 01:23] LABS: A/G RATIO 0.4 (1-2); ALANINE AMINOTRANSFERASE,ALT 28 U/L (16-63); ASPARTATE AMNIOTRANSFERASE,AST 106 U/L (15-37); BILIRUBIN TOTAL 0.5 mg/dL (0.2-1.0); BLOOD UREA NITROGEN,BUN 57 mg/dL (7-18); CHLORIDE,CL 82 mEq/L (98-107); CREATININE 3.9 mg/dL (0.7-1.3); ESTIMATED GFR 21 mL/min (>60); PROTEIN TOTAL,TP 4.9 g/dl (6.4-8.2)
[2025-04-26 01:34] LABS: PHOSPHORUS 11.3 mg/dL (2.6-4.7)
[2025-04-26 01:36] LABS: POTASSIUM,K 7.9 mEq/L (3.5-5.1); SODIUM,NA 118 mEq/L (136-145)
[2025-04-26 01:37] LABS: CARBON DIOXIDE,CO2 5 mEq/L (21-32); GLUCOSE RANDOM 1518 mg/dL (70-99)
[2025-04-26 02:50] LABS: A/G RATIO 0.4 (1-2); ALANINE AMINOTRANSFERASE,ALT 35 U/L (16-63); ASPARTATE AMNIOTRANSFERASE,AST 181 U/L (15-37); BILIRUBIN TOTAL 0.6 mg/dL (0.2-1.0); BLOOD UREA NITROGEN,BUN 55 mg/dL (7-18); CHLORIDE,CL 85 mEq/L (98-107); CREATININE 4.0 mg/dL (0.7-1.3); ESTIMATED GFR 20 mL/min (>60); PROTEIN TOTAL,TP 5.0 g/dl (6.4-8.2); SODIUM,NA 122 mEq/L (136-145)
[2025-04-26 02:55] LABS: PHOSPHORUS 10.7 mg/dL (2.6-4.7)
[2025-04-26 02:56] LABS: GLUCOSE RANDOM 1474 mg/dL (70-99); POTASSIUM,K 6.8 mEq/L (3.5-5.1)
[2025-04-26 02:57] LABS: CARBON DIOXIDE,CO2 4 mEq/L (21-32)
[2025-04-26] MEDS: Calcium Gluconate 10% 1 GM/10 ML SDV IVPUSH ONE (04:12)
[2025-04-26 04:59] LABS: BASE EXCESS VENOUS -27.5 (-4.0-2.0); BICARBONATE,VENOUS 5.1 meq/L (22-26); O2 SATURATION VENOUS 83.6; PCO2 VENOUS 29.0 mmHg (41-51); PH,VENOUS 6.85 (7.30-7.40); PO2 VENOUS 49.0 mmHG (40-80)
[2025-04-26 05:50] LABS: BLOOD UREA NITROGEN,BUN 61.0 mg/dL (7-18); CHLORIDE,CL 90.0 mEq/L (98-107); CREATININE 4.1 mg/dL (0.7-1.3); EST CRCL DRUG DOSING (CG) 24.04 mL/min; ESTIMATED GFR 19.0 mL/min (>60); SODIUM,NA 126.0 mEq/L (136-145)
[2025-04-26 06:07] LABS: CARBON DIOXIDE,CO2 8.0 mEq/L (21-32)
[2025-04-26 06:08] LABS: POTASSIUM,K 5.6 mEq/L (3.5-5.1)
[2025-04-26 06:09] LABS: GLUCOSE RANDOM 1363.0 mg/dL (70-99)
[2025-04-26] MEDS ORDERED: Ondansetron 4 MG/2 ML SDV IV PRN (06:50)
[2025-04-26 06:51] LABS: INR 1.16
[2025-04-26] MEDS ORDERED: 50% Dextrose in Water 50 ML Syringe IVPUSH PRN (06:58)
[2025-04-26] MEDS: Heparin Sodium 5,000 Units/ML Vial SUBCUT SCH (08:37)
[2025-04-26 09:41] LABS: BLOOD UREA NITROGEN,BUN 61.0 mg/dL (7-18); CHLORIDE,CL 94.0 mEq/L (98-107); CREATININE 4.5 mg/dL (0.7-1.3); EST CRCL DRUG DOSING (CG) 21.9 mL/min; ESTIMATED GFR 17.0 mL/min (>60); PHOSPHORUS 4.6 mg/dL (2.6-4.7); SODIUM,NA 129.0 mEq/L (136-145)
[2025-04-26 09:43] LABS: CARBON DIOXIDE,CO2 9.0 mEq/L (21-32)
[2025-04-26 09:44] LABS: GLUCOSE RANDOM 1032.0 mg/dL (70-99); POTASSIUM,K 4.2 mEq/L (3.5-5.1)
[2025-04-26 11:57] LABS: GLUCOSE RANDOM 858.0 mg/dL (70-99); POTASSIUM,K 3.9 mEq/L (3.5-5.1)
[2025-04-26 14:04] LABS: BLOOD UREA NITROGEN,BUN 62.0 mg/dL (7-18); CARBON DIOXIDE,CO2 16.0 mEq/L (21-32); CHLORIDE,CL 102.0 mEq/L (98-107); CREATININE 4.4 mg/dL (0.7-1.3); EST CRCL DRUG DOSING (CG) 22.4 mL/min; ESTIMATED GFR 18.0 mL/min (>60); PHOSPHORUS 3.4 mg/dL (2.6-4.7); SODIUM,NA 135.0 mEq/L (136-145)
[2025-04-26 14:08] LABS: GLUCOSE RANDOM 704.0 mg/dL (70-99)
[2025-04-26 14:11] LABS: POTASSIUM,K 3.7 mEq/L (3.5-5.1)
[2025-04-26 14:42] LABS: APPEARANCE,URINE CLOUDY (Clear); GLUCOSE,URINE 3+ (Negative); OCCULT BLOOD,URINE 3+ (Negative)
[2025-04-26 15:21] LABS: EPITHELIAL CELLS,URINE 0-5 /hpf (0-5)
[2025-04-26 15:38] LABS: GLUCOSE RANDOM 597.0 mg/dL (70-99); POTASSIUM,K 3.8 mEq/L (3.5-5.1)
[2025-04-26 17:27] LABS: BLOOD UREA NITROGEN,BUN 59.0 mg/dL (7-18); CARBON DIOXIDE,CO2 20.0 mEq/L (21-32); CHLORIDE,CL 106.0 mEq/L (98-107); CREATININE 4.5 mg/dL (0.7-1.3); EST CRCL DRUG DOSING (CG) 21.9 mL/min; ESTIMATED GFR 17.0 mL/min (>60); PHOSPHORUS 3.2 mg/dL (2.6-4.7); SODIUM,NA 139.0 mEq/L (136-145)
[2025-04-26 17:29] LABS: GLUCOSE RANDOM 482.0 mg/dL (70-99); POTASSIUM,K 3.8 mEq/L (3.5-5.1)
[2025-04-26] MEDS: Furosemide 40 MG/4 ML VIAL IVPUSH ONE (18:14)
[2025-04-26 19:31] LABS: POTASSIUM,K 3.8 mEq/L (3.5-5.1)
[2025-04-26 21:26] LABS: BASE EXCESS ARTERIAL -8.2 (-2-2.0); BICARBONATE,ARTERIAL 16.9 meq/L (22.0-26.0); O2 SATURATION ARTERIAL 100.0 % (96.0-97.0); PATIENT RESPIRATORY RATE 44.0 /MIN; PCO2 ARTERIAL 32.0 mmHg (35.0-45.0); PO2 ARTERIAL 84.0 mmHg (80.0-100.0)
[2025-04-26 21:32] LABS: BLOOD UREA NITROGEN,BUN 60.0 mg/dL (7-18); CARBON DIOXIDE,CO2 21.0 mEq/L (21-32); CHLORIDE,CL 109.0 mEq/L (98-107); CREATININE 4.4 mg/dL (0.7-1.3); EST CRCL DRUG DOSING (CG) 22.4 mL/min; ESTIMATED GFR 18.0 mL/min (>60); GLUCOSE RANDOM 231.0 mg/dL (70-99); PHOSPHORUS 2.9 mg/dL (2.6-4.7); SODIUM,NA 141.0 mEq/L (136-145)
[2025-04-26 21:36] LABS: POTASSIUM,K 3.7 mEq/L (3.5-5.1)
[2025-04-27 01:23] LABS: BLOOD UREA NITROGEN,BUN 60.0 mg/dL (7-18); CARBON DIOXIDE,CO2 20.0 mEq/L (21-32); CHLORIDE,CL 111.0 mEq/L (98-107); CREATININE 4.6 mg/dL (0.7-1.3); EST CRCL DRUG DOSING (CG) 21.43 mL/min; ESTIMATED GFR 17.0 mL/min (>60); GLUCOSE RANDOM 171.0 mg/dL (70-99); PHOSPHORUS 2.5 mg/dL (2.6-4.7); SODIUM,NA 142.0 mEq/L (136-145)
[2025-04-27 01:26] LABS: POTASSIUM,K 4.1 mEq/L (3.5-5.1)
[2025-04-27] MEDS: LORazepam 2 MG/ML SDV IVPUSH PRN (02:30)
[2025-04-27] MEDS: Furosemide 20 MG/2 ML VIAL IVPUSH ONE (02:36)
[2025-04-27 02:42] LABS: BASOPHILS ABSOLUTE AUTO 0.0 K/mm3 (0.0-0.2); BASOPHILS PERCENT AUTO 0.2 % (0.0-1.0); EOSINOPHILS ABSOLUTE AUTO 0.0 K/mm3 (0.0-0.4); EOSINOPHILS PERCENT AUTO 0.2 % (0.0-6.0); IMMATURE GRAN ABSOLUTE AUTO 0.05 K/mm3 (0.00-0.05); IMMATURE GRAN PERCENT AUTO 0.8 % (0.0-0.4); LYMPHOCYTES ABSOLUTE AUTO 0.8 K/mm3 (1.0-4.8); LYMPHOCYTES PERCENT AUTO 12.1 % (24.0-44.0); MEAN PLATELET VOLUME 9.3 fl (9.4-12.4); MONOCYTES ABSOLUTE AUTO 0.6 K/mm3 (0.0-0.8); MONOCYTES PERCENT AUTO 8.9 % (0.0-8.0); NEUTROPHILS ABSOLUTE AUTO 5.0 K/mm3 (1.8-7.7); NEUTROPHILS PERCENT AUTO 77.8 % (41.0-71.0); NRBC ABSOLUTE 0.04 (0.00-0.02); NRBC PERCENT 0.6 % (0.0-0.2); PLATELET COUNT,PLT 136 K/mm3 (150-400); RED BLOOD CELL COUNT 2.93 M/mm3 (4.52-5.90); WHITE BLOOD CELL COUNT,WBC 6.39 K/mm3 (3.9-11.3)
[2025-04-27 03:12] LABS: LACTIC ACID 2.9 mmol/L (0.4-2.0)
[2025-04-27 05:03] LABS: MEAN PLATELET VOLUME 10.1 fl (9.4-12.4); NRBC ABSOLUTE 0.05 (0.00-0.02); NRBC PERCENT 0.4 % (0.0-0.2); PLATELET COUNT,PLT 141 K/mm3 (150-400); RED BLOOD CELL COUNT 3.02 M/mm3 (4.52-5.90); WHITE BLOOD CELL COUNT,WBC 11.53 K/mm3 (3.9-11.3)
[2025-04-27 05:26] LABS: A/G RATIO 0.4 (1-2); ALANINE AMINOTRANSFERASE,ALT 104.0 U/L (16-63); ASPARTATE AMNIOTRANSFERASE,AST 735.0 U/L (15-37); BILIRUBIN TOTAL 0.4 mg/dL (0.2-1.0); BLOOD UREA NITROGEN,BUN 61.0 mg/dL (7-18); CARBON DIOXIDE,CO2 18.0 mEq/L (21-32); CHLORIDE,CL 110.0 mEq/L (98-107); CREATININE 4.8 mg/dL (0.7-1.3); EST CRCL DRUG DOSING (CG) 21.11 mL/min; ESTIMATED GFR 16.0 mL/min (>60); GLUCOSE RANDOM 141.0 mg/dL (70-99); PROTEIN TOTAL,TP 4.4 g/dl (6.4-8.2); SODIUM,NA 142.0 mEq/L (136-145)
[2025-04-27 05:38] LABS: POTASSIUM,K 3.9 mEq/L (3.5-5.1)
[2025-04-27 06:27] LABS: PHOSPHORUS 2.0 mg/dL (2.6-4.7)
[2025-04-27 09:38] LABS: INR 1.22
[2025-04-27 09:40] LABS: PTT,PARTIAL THROMBOPLSTIN TIME 30.4 SECONDS (21.7-31.4)
[2025-04-27 09:52] LABS: D-DIMER QUANTITATIVE 12.3 mg/L (0.19-0.50)
[2025-04-27 10:01] LABS: BLOOD UREA NITROGEN,BUN 64.0 mg/dL (7-18); CARBON DIOXIDE,CO2 18.0 mEq/L (21-32); CHLORIDE,CL 109.0 mEq/L (98-107); CREATININE 5.1 mg/dL (0.7-1.3); EST CRCL DRUG DOSING (CG) 19.87 mL/min; ESTIMATED GFR 15.0 mL/min (>60); GLUCOSE RANDOM 135.0 mg/dL (70-99); SODIUM,NA 140.0 mEq/L (136-145)
[2025-04-27 10:17] LABS: POTASSIUM,K 3.6 mEq/L (3.5-5.1)
[2025-04-27] MEDS: Furosemide 40 MG/4 ML VIAL IVPUSH ONE (10:40)
[2025-04-27 14:03] VITALS: BP 114/60; PULSE 113
== END 2025-04-27 12:59 | DRG 871 ==
LOC: JD.ED 22:39 → JD.ICU 04-26 03:39
PROVIDERS: ADMIT Family Medicine; ATTEND Family Medicine
DX: E10.10 Type 1 diabetes mellitus with ketoacidosis without coma (principal); Z79.4 Long term (current) use of insulin; Z79.899 Other long term (current) drug therapy; A41.9 Sepsis, unspecified organism; E11.10 Type 2 diabetes mellitus with ketoacidosis without coma; J69.0 Pneumonitis due to inhalation of food and vomit; J18.9 Pneumonia, unspecified organism; G92.8 Other toxic encephalopathy; M62.82 Rhabdomyolysis; N17.9 Acute kidney failure, unspecified
CPT/HCPCS: 36415 ×2; 51702; 70450; 71045 ×2; 80053 ×3; 80306; 80307; 81001; 82010; 82803; 82947; 83690; 83735 ×3; 84100 ×3; 84132; 85025 ×2; 87040 ×2; 93005; 96361; 96365; 96366; 96375 ×2; 96376; 99291; A9270; C1751; J1815; J2060; J7030 ×3; 36600; 71250; 71250-26; 74176; 74176-26; 80048; 82550; 82800; 83605; 85018; 85027; 85379; 85384; 85610; 85730; 86850; 86900; 86901; 87086; 94640; 94762; J0612; J0692; J0696; J1271; J1644; J1938; J3373; J3475; J3480; J3490; J7050